=== PATIENT | female | born 1935 | race Caucasian/White ===

== ENCOUNTER 2016-09-07 11:42 | Inpatient (IN) | payer MEDICARE ==
[~2016-09-07] VITALS: Ht 160 cm; Wt 36.8 kg
[2016-09-07] VITALS (12 sets, daily range): BP systolic 89–133; BP diastolic 50–67; PULSE 85–111; RESP 16–20; O2SAT 97–100
[~2016-09-07 11:42] MED LIST: NORE1TAB92 PO; PANT40TA3 PO; THYR90TA PO
--- NOTE | 2016-09-07 12:00 | ED.REPORT ---
HPI-GI Bleed Date of Service Sep 07, 2016 ED Provider: Humberto Ledbetter MD An 80 year old female with a history of ulcerated gastroesophageal junction, gastric and duodenal hereditary hemorrhagic telangiectasia, and hypothyroidism presents to the ED due to hematemesis. The pt had a two unit blood transfusion yesterday, and woke at 03:00 this morning vomiting blood. The blood in the vomit was dark with clots, and the vomiting was accompanied by abdominal pain. The pt has also been unable to eat recently, though food still tastes good and she has an appetite. She denies hematochezia. The pt was admitted one month ago for a GI bleed. She receives iron every two weeks, and her last blood transfusion was during her admission one month ago. Nursing Notes Stated Complaint: SOB Chief Complaint: Respiratory Distress Nursing Notes Reviewed: Yes Allergies: Coded Allergies: No Known Allergies (Verified , 07/23/16) Scheduled Norethindrone/Eth Estradiol (Zenchent) 1 Each Tablet 1 TABLET PO DAILY Pantoprazole DR (Pantoprazole DR) 40 Mg Tablet.dr 40 MG PO DAILY Thyroid,Pork ([place] Thyroid) 90 Mg Tablet 90 MG PO DAILY General Time Seen by Provider: 11:57 Chief Complaint Chief Complaint: Vomiting blood Hx Obtained From: Patient Arrived By: Walk-in Onset Occurred: 5 - 8 hours ago Recent Healthcare: Recent doctor visit, Recent hospitalization Similar Sx Previous: Yes Past Medical History Past Medical History Notes: GI: Dr. Sam Past Medical History 1. Ulcerated gastroesophageal junction. 2. Irregular gastroesophageal junction. 3. Gastric and duodenal hereditary hemorrhagic telangiectasia. 4. hypothyroidism 5. malnutrition 6. 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 and resulting in constipation Past Surgical History One lobe thyroidectomy Smoking History Never Smoker Social History Other Social History: Good social support, From out of town Ambulatory Status Independent Review of Systems Review of Systems Note: inability to eat Constitutional: Denies: Chills, Fever Respiratory: Denies: Non-productive cough, Shortness of breath Cardiovascular: Denies: Chest pain GI: Reports: Abdominal pain, Hematemesis, Vomiting, Denies: Hematochezia Skin: Denies Rash Complete sys rev & neg: except as marked. Physical Exam Initial Vital Signs Vital Signs (First) Date Time Temp Pulse Resp B/P Pulse Ox O2 Delivery O2 Flow Rate FiO2 09/07/16 11:45 36.7 111 20 89/55 98 Room Air Initial VS: Reviewed General/Constitutional: Awake, Alert Respiratory / Chest: Atraumatic, Breath sounds NL, Breath sounds = bilat, No respiratory distress Cardiovascular: Heart rate NL, Regular rhythm, Heart sounds NL, No murmurs Abdomen: Atraumatic, Soft, No guarding, No rebound moderate diffuse tenderness Guaiac positive small amount of bright red blood Head / Eyes: Atraumatic, Normocephalic, PERRL, EOMI ENT: Atraumatic, Airway patent, Mucous membranes moist Skin Skin: Atraumatic, Color NL, No rash, Warm, Dry Neurologic: Oriented X3, Speech NL, No motor deficits, No sensory deficits Neck: Atraumatic, Supple, Full range of motion Back: Atraumatic, Full range of motion Upper Extremity / MS: Atraumatic, Full range of motion Lower Extremity / Pelvis / MS: Atraumatic, Full range of motion Psychiatric: Affect NL, Mood NL Interpretation & Diagnostics Lab Results Interpretation Result Diagram: 09/07/16 1155 09/07/16 1155 Test 09/07/16 11:55 White Blood Count 11.0th/mm3 (3.8-10.1) Red Blood Count 2.43mil/mm3 (3.90-5.20) Hemoglobin 7.4g/dL (12.0-15.6) Hematocrit 23.8% (35.0-46.0) Mean Corpuscular Volume 97.9fL (81-100) Mean Corpuscular Hemoglobin 30.5pg (27.0-35.0) Mean Corpuscular Hemoglobin Concent 31.1% (32.0-37.0) Red Cell Distribution Width 17.1% (12.3-15.4) Platelet Count 538bil/L (150-400) Neutrophils (%) (Auto) 78.9% (40-74) Lymphocytes (%) (Auto) 10.1% (14-46) Monocytes (%) (Auto) 9.1% (4-12) Eosinophils (%) (Auto) 1.4% (0-5) Basophils (%) (Auto) 0.3% (0-3) Prothrombin Time 10.8sec (8.1-12.5) Prothromb Time International Ratio 1.01ratio Sodium Level 141mEq/L (134-144) Potassium Level 4.3mEq/L (3.5-5.2) Chloride Level 105mEq/L (97-108) Carbon Dioxide Level 25mmol/L (18-29) Blood Urea Nitrogen 26mg/dL (8-27) Creatinine 0.40mg/dL (0.57-1.00) Estimat Glomerular Filtration Rate 219mL/min (>59) Glucose Level 128mg/dL (60-99) Calcium Level 9.0mg/dL (8.5-10.1) Total Bilirubin 0.7mg/dL (0.0-1.2) Aspartate Amino Transf (AST/SGOT) 56U/L (0-50) Alanine Aminotransferase (ALT/SGPT) 39U/L (0-32) Alkaline Phosphatase 251U/L (25-165) Total Protein 5.7g/dL (6.4-8.4) Albumin 3.0g/dL (3.4-5.0) Hold [place] Top Tube Received (Received) ECG Interpretation ECG Interpretation: normal sinus rhythm with a rate of [address] elevation T wave inversion in V1 and AVR no change from previous dated 07/23/2016 Time: 12:17 Interpreted by: ED physician X-Ray Chest Interpretation Chest Xray Interpretation: IMPRESSION: No acute cardiopulmonary disease. Dictated by: Blaze Zurita M.D. on 09/07/2016 at 12:38 Approved by: Blaze Zurita M.D. on 09/07/2016 at 12:38 Interpretation / Wet Read by: Interpret - Radiologist Re-Eval/Medical Decision Med Decision/Clinical Course 80-year-old female history of hereditary hemorrhagic telangiectasia chronic GI bleeds presenting with hematemesis overnight. She reports she was transfused yesterday with a hemoglobin of 6.4. She was admitted recently for similar. She is guaiac positive with grossly bloody stools. MAPs mid-60s. Hemoglobin is 7.4. Discussed with GI doctor Dr Zhang who requested admission with Protonix drip for a scope tomorrow. Ordered 2 units PRBCs to be transfused. Admitted to telemetry. Full code. Source of Hx: Old records Re-Evaluation/Progress : Time of Eval: 11:57 Patient Status: Condition unchanged Re-Evaluation/Progress Note: Pt informed of the need for admission during the initial interview. The pt understands and agrees with the plan. All questions are addressed at this time. Consultation #1: Referral / Consult Name: Bj Zhang MD Call Returned at: 12:53 Continuous Miner Operator Helper: Agrees with eval, Agrees with plan Note: Consulted with Dr. Zhang, GI, regarding pt's case. Dr. Zhang agrees with the evaluation and plan. Consultation #2: Referral / Consult Name: Jan Parker DO Consulted With: Hospitalist Call Returned at: 13:22 Continuous Miner Operator Helper: Agrees with eval, Agrees with plan, Accepts admit Note: Spoke with Dr. Parker, hospitalist, regarding pt's case. Dr. Parker agrees with the evaluation and agrees to admit the pt. Counseled Regarding: Diagnosis, Lab results, Need for admission Discharge & Departure Impression: Primary Impression: Upper GI bleed Disposition: ADMITTED TO HOSPITAL Discharge Condition All VS Reviewed: Yes Condition: Stable Referrals: Macy Baird MD (PCP) Jose Sam MD Attestation Portions of this note were transcribed by Kanchan Zapata. I, Dr. Ledbetter personally performed the history, physical exam and medical decision-making; I reviewed and confirmed the accuracy of the information in the transcribed note. Signed by: Kush Cruz, 09/07/2016, 13:35 copies to: Macy Baird MD; Jose Sam MD, Ben M MD Sep 07, 2016 12:00 KANCHAN ZAPATA Sep 07, 2016 12:48
[2016-09-07] MEDS ORDERED: 0.9% Sodium Chloride 1,000 ML IV ONE (12:10)
[2016-09-07] MEDS ORDERED: Pantoprazole 4 mg/mL 10 mL Inj IVPUSH ONE (12:10)
[2016-09-07 12:31] LABS: Mean Corpuscular Volume 97.9 fL (81-100)
[2016-09-07 12:32] LABS: BASOPHILS % (AUTO) 0.3 % (0-3); EOSINOPHILS % (AUTO) 1.4 % (0-5); MONOCYTES % (AUTO) 9.1 % (4-12); Mean Corpuscular Hemoglobin 30.5 pg (27.0-35.0); NEUTROPHILS % (AUTO) 78.9 % (40-74); Platelet Count 538 bil/L (150-400)
[2016-09-07 12:36] LABS: INR 1.01 ratio
--- NOTE | 2016-09-07 12:40 | DRSVH ---
PROCEDURE: X-RAY CHEST ONE VIEW, PORTABLE ([id number]) INDICATIONS: 80 year-old female with anemia and gastrointestinal bleeding. TECHNIQUE: One view of the chest was acquired. COMPARISON: [facility], CR, CHEST 2VW, 02/10/2007, 11:18. FINDINGS: Surgical changes and devices: Right thoracic outlet surgical clips are again noted. Lungs and pleura: No pleural effusions or pneumothorax. Lungs are clear. Mediastinum: Mediastinal contours appear normal. Heart size is normal. There is aortic atheroscler osis. Bones and chest wall: No suspicious bony lesions. Overlying soft tissues appear unremarkable. IMPRESSION: No acute cardiopulmonary disease. Dictated by: Blaze Zurita M.D. on 09/07/2016 at 12:38 Approved by: Blaze Zurita M.D. on 09/07/2016 at 12:38
[2016-09-07] MEDS ORDERED: EPINEPHrine 0.1 mg/mL 10 mL Syringe ONE (13:07)
[2016-09-07] MEDS ORDERED: Pantoprazole Inj 80 MG, Pharmacy To Mix 1 EA in 0.9% Sodium Chloride 80 ML IV ONE ×2 (13:10)
[2016-09-07] MEDS ORDERED: Alum-Mag Hydrox-Simeth 30 mL Suspension PO PRN ×2 (13:25→14:50)
[2016-09-07] MEDS ORDERED: Ondansetron 2 mg/mL 2 mL Inj IVPUSH PRN ×2 (13:25→14:50)
[2016-09-07 14:28] LABS: APPEARANCE,URINE HAZY (CLEAR,HAZY); COLOR,URINE YELLOW (YELLOW); PH,URINE 6.5 (5.0-8.0)
[2016-09-07 14:29] LABS: OCCULT BLOOD,URINE NEGATIVE (NEGATIVE); UROBILINOGEN,URINE NORMAL (NORMAL)
[2016-09-07] MEDS ORDERED: Polyethylene Glycol (PEG) 17 Gm Powder PO PRN (14:50)
[2016-09-07] MEDS: 0.9% Sodium Chloride 1,000 ML IV SCH (15:28)
[2016-09-07] MEDS ORDERED: 0.9% Sodium Chloride 100 ML ONE (16:12)
--- NOTE | 2016-09-07 16:40 | PCM.HPMED ---
Subjective Date of Service Sep 07, 2016 Primary Provider: Admitting Physician: Jan Parker DO Primary Care Physician: Macy Baird MD Attending Physician: Jan Parker DO Chief Complaint: Hematemesis History of Present Illness: This is a very pleasant 80 year old female with a history of gastric and duodenal hereditary hemorrhagic telangiectasias with related anemia and hypothyroidism who presented to [facility] on 09/07/16 after an episode of significant hematemesis. Patient had a two unit blood transfusion yesterday when her hemoglobin was 6.4 This morning she woke at 03:00 and had one episode of vomiting blood. The blood in the vomit was dark with clots, and the vomiting was accompanied by abdominal pain. The patient has also been unable to eat recently, though food still tastes good and she has an appetite. She states she has been loosing about 5 pounds a month since May. She denies hematochezia, weakness, dizziness, syncope. The patient was admitted one month ago for a GI bleed. Patient states that her family history is non-contributory as she was adopted when she was 10 month old. Her 62 year old son and her grand daughter have inherited hereditary hemorrhagic telangiectasia as well. Review of Systems: A comprehensive review of systems was conducted with the patient and found to be negative except as above in the history of present illness. Allergies Coded Allergies: No Known Allergies (Verified , 07/23/16) Home Medications Pantoprazole 40 mg qd Amour Thyroid 90 mg qd PMH 1. Ulcerated gastroesophageal junction. 2. Irregular gastroesophageal junction. 3. Gastric and duodenal hereditary hemorrhagic telangiectasia. 4. Hypothyroidism 5. Malnutrition 6. 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 Hx Alcohol Use: Yes (socially with wine or burbon and water, not for several months) Hx Substance Use: No Hx Tobacco Use: No Smoking Status: Never Smoker Living Arrangement: with Family Exam Vital Signs Vital Sign - Last Date Time Temp Pulse Resp B/P Pulse Ox O2 Delivery O2 Flow Rate FiO2 09/07/16 15:01 36.6 101 18 126/56 99 Room Air 09/07/16 13:43 2 Exam General: very thin, alert and oriented x3, no acute distress HEENT: atraumatic, normocephalic,PERRL, EOMI, sclera anicteric, pale conjunctivae NECK: No cervical lymphadenopathy, neck supple, nontender HEART: Regular rate and rhythm, no murmur appreciated LUNGS: clear to auscultation bilaterally with adequate respiratory effort ABD: no tenderness, mildly-distended, normoactive bowel tones EXTR: Radial pulses and pedal pulses normal b/l, no cyanosis, clubbing or edema NEURO: Cranial nerves appear to be fully intact, normal speech, patient can move upper and lower limbs grossly Lab and Diagnostics Result Diagram: 09/07/16 1155 09/07/16 1155 X-Rays, CTs and MRIs Chest Xray Interpretation: IMPRESSION: No acute cardiopulmonary disease. Dictated by: Blaze Zurita M.D. on 09/07/2016 at 12:38 Approved by: Blaze Zurita M.D. on 09/07/2016 at 12:38 12-lead ECG ECG Interpretation: normal sinus rhythm with a rate of [address] elevation T wave inversion in V1 and AVR no change from previous dated 07/23/2016 Time: 12:17 Interpreted by: ED physician Assessment & Plan This is a very pleasant 80 year old female with a history of gastric and duodenal hereditary hemorrhagic telangiectasias with related anemia, hypothyroidism and malnutrition who presented to [facility] on 09/07/16 after an episode of hematemesis overnight. She has been admitted for management of anemia and endoscopic evaluation of her upper GI tract by Dr. Zhang. 1. Upper GI bleed with significant hematemesis, acute, present on admission. - Patient reports she has been transfused yesterday with a hemoglobin of 6.4 - Hospitalized last month for the same problem - Hemoglobin 7.4 - Protonix drip. - Dr. Zhang was called by the ED and is aware of the patient's admission. - NPO in preparation for EGD tomorrow AM. - Blood transfusion 2 units PRBC's - Telemetry 2. Acute on chronic iron deficiency anemia, present on admission. - Secondary to hemorrhagic telangiectasias and subsequent hematemesis. - Blood transfusion 2 units PRBC's. Re-evaluate H&H after complete. 3. Hypotension, acute, present on admission - BP 89/55 in ED - IVF NS 100 mls/hr - Monitor BP 4. BMI 15, protein malnutrition, chronic. - Patient states she has been loosing 5 pounds a month since May dur to stomach problems - Hotel Desk Clerk consult - When patient no longer NPO recommend the use of protein shakes to supplement diet. 5. Hypothyroidism, chronic, presume stable. - Will plan to continue [place] Thyroid 90 mg when patient can tolerate oral intake. Patient admitted under inpatient status with expected length of stay greater than 2 midnights for severity of present symptoms, complexities of treatment plan and risk for adverse events. GI Prophylaxis: Proton Pump Inhibitor VTE Prophylaxis Indicated: Contraindicated (GI bleed) VTE Prophylaxis: SCDs Resuscitation Status: CPR: Attempt Resuscitation Time spent 60 minutes Attending Statement I reviewed this patients chart, discussed the plan of care with the resident and examined the patient. I agree with the above physical exam and assessment and plan. copies to: Macy Baird MD, OKSANA S DO Sep 07, 2016 16:40 Jan Parker DO Sep 08, 2016 17:10
--- NOTE | 2016-09-07 17:38 | NUR ---
ADMIT Pt admitted into room 3002 from ER following report from Antonia Son RN. Pt arrived on a stretcher, able to amb SBA to bed, denied any dizziness with change in position. Pt A&Ox4, pleasant, cooperative with all cares. Pt introduced to staff, bed controls and call light. Dtr at bedside. Pt on RA, denies SOB, 02 sats 100%. Orders rec'd for pt to be NPO and transfuse 2 units PBRC's. Pt T&C in ER. Pt c/o vague nausea, some retching but no emesis. Bed in lowest, locked position and call light in reach.
[2016-09-08] VITALS (14 sets, daily range): BP systolic 112–147; BP diastolic 44–65; PULSE 75–97; RESP 14–20; O2SAT 96–99
[2016-09-08] MEDS: 0.9% Sodium Chloride 1,000 ML IV SCH ×3 (00:29→19:57)
[2016-09-08] MEDS ORDERED: Ondansetron 2 mg/mL 2 mL Inj ONE (07:12)
[2016-09-08] MEDS ORDERED: Propofol 10,000 mCg/mL 20 mL Inj ONE (07:12)
[2016-09-08] MEDS ORDERED: fentaNYL-PF 50 mCg/mL 2 mL Inj ONE (07:18)
[2016-09-08] MEDS: Pantoprazole 8 mg/Hr Infusion IV SCH ×2 (10:10)
--- NOTE | 2016-09-08 10:49 | PCM.HPANE ---
Patient Data Surgeon Admitting Provider:Jan Parker DO Attending Provider:Jan Parker DO Primary Care Physician:Macy Baird MD Other Provider: Reason for Visit Gi Bleed Ht/WT & BMI Height (Feet): 5 Height (Inches): 3.00 Weight (Kilograms): 36.800 Body Mass Index 14.38 Allergies Coded Allergies: No Known Allergies (Verified , 07/23/16) Past Anesthesia History Anesthesia History: Denies:: Abnormal Airway, Anesthesia Reactions, Difficult Intubation, Fam Anesthesia Reaction, Fam Malignant Hypertherm, Malignant Hyperthermia Diabetes History Hx Diabetes?: No Current Bedside Blood Glucose: 191 MRSA MRSA: No Medications Active Scripts Thyroid,Pork ([place] Thyroid)90 Mg Sspetx61 Mg PO DAILY #30 TABLET Ref 0 Prov:GOLD TYSON DO 07/23/[address]ations Pant[address] DR 40 Mg Tablet.dr20 Mg PO DAILY Ref 0 07/22/16 Norethindrone/Eth Estradiol (Zenchent)1 Each Tablet1 Tablet PO DAILY #1 PACK 06/21/16 History History of ENT Problems?: Yes HEENT History: Positive for:: Cataracts Denies:: Abnormal Airway Difficult Intubation Dysphagia Glaucoma Hearing Problem Sinus Problem Hx of Heart Problems?: No Cardiovascular History: Denies:: AICD Atrial Fibrillation Cardiac Surgery Chest Pain Congestive Heart Failure Edema Heart Murmur Hypertension Irregular Heartbeat Pacemaker Thrombophlebitis Valvular Heart Disease Hx of Respiratory Problem?: No Respiratory History: Positive for:: Pneumonia (age 13) Denies:: Asthma COPD Chest Surgery Cough Dyspnea Emphysema Hemoptysis Tuberculosis Hx Neurologic Problems?: No Neurological History: Denies:: CVA Dementia Hx of GI Problems?: Yes Gastrointestinal History: Positive for:: Gastrointestinal Bleeding (multiple GI bleeds in the past) Denies:: Cirrhosis Diverticulitis Gastroesphageal Reflux Heartburn Hepatitis Hiatal Hernia Rectal Bleeding Hx of Problems?: No Genitourinary History: Positive for:: Urinary Tract Infection (years ago) Denies:: HX of Hemodialysis Kidney Stones HX of Peritoneal Dialysis: No Female Hx: Denies:: Currently Endometriosis Pelvic Inflammatory Problems with Breasts? Hx Musculoskeletal Problems?: No Musculoskeletal History: Denies:: Joint Replacement Musculoskeletal Trauma Hx of Psycho/Social Problems?: No Psycho Social History: Denies:: Anxiety Bipolar Disorder Hx Depression Suicide Attempt Hx Surgeries?: No (thyroidectomy) Hx Any Other Health Problems?: Yes Other History: Positive for:: Hospitalization Thyroid Disease (thyroidectomy) Denies:: Cancer History Blood Transfusions: Positive for:: Accept Blood Products? 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 Category 1B: Patient has history of documented sleep apnea, and HAS received any narcotic , sedative or anesthesia administration during this stay Category 2: Patient has SUSPECTED Obstructive Sleep Apnea, and HAS received any narcotic , sedative or anesthesia administration during this stay. Category 3: Patient has SUSPECTED Obstructive Sleep Apnea and HAS NOT received narcotic, sedative or anesthesia administration during this stay. Category 4: Outpatient in Procedural Areas with known sleep apnea or who screen positive for High Risk via the STOP/BANG questionnaire. Exam Exam Vital Signs Vital Signs Date Time Temp Pulse Resp B/P Pulse Ox O2 Delivery O2 Flow Rate FiO2 09/08/16 09:15 36.9 94 20 120/44 97 Room Air 09/08/16 08:00 92 09/08/16 05:20 97 09/08/16 05:12 36.9 91 18 119/63 98 Room Air General Appearance: Alert, Oriented X3, Cooperative HEENT/AIRWAY: MP 2 Lungs: Normal Air Movement Heart: Exam Unremarkable Meds/Labs/Diagnostics Admission Meds Current Medications Pantoprazole 80 mg 80 mg STAT ONCE IVPUSH Last administered on 09/07/16at 12: 28; Start 09/07/16 at 12:10; Stop 09/07/16 at 12:12; Status DC Sodium Chloride 1,000 ml @ 0 mls/hr Q0M ONCE IV Last administered on at 12:28; Start 09/07/16 at 12:10; Stop 09/07/16 at 12:12; Status DC Pantoprazole 80 mg/Miscellaneous 1 ea/Sodium Chloride 100 ml @ 10 mls/hr ONCE ONCE IV Last administered on 09/07/16at 13:42; Start 09/07/16 at 13:10; Stop 09/07/16 at 23:09; Status DC Sodium Chloride 1,000 ml @ 100 mls/hr Q10H IV Last administered on 09/08/16 06 :46; Start 09/07/16 at 14:46 Pantoprazole/ Sodium Chloride (Protonix Inj/ Normal Saline) 100 ml @ 10 mls/hr Q10H IV Last administered on 09/08/16 10:10; Start 09/08/16 at 08:45 Bedside Blood Glucose: 191 Labs Test 09/07/16 11:55 09/07/16 13:35 09/08/16 05:50 White Blood Count 11.0th/mm3 (3.8-10.1) Red Blood Count 2.43mil/mm3 (3.90-5.20) Mean Corpuscular Volume 97.9fL (81-100) Mean Corpuscular Hemoglobin 30.5pg (27.0-35.0) Mean Corpuscular Hemoglobin Concent 31.1% (32.0-37.0) Red Cell Distribution Width 17.1% (12.3-15.4) Platelet Count 538bil/L (150-400) Neutrophils (%) (Auto) 78.9% (40-74) Lymphocytes (%) (Auto) 10.1% (14-46) Monocytes (%) (Auto) 9.1% (4-12) Eosinophils (%) (Auto) 1.4% (0-5) Basophils (%) (Auto) 0.3% (0-3) Prothrombin Time 10.8sec (8.1-12.5) Prothromb Time International Ratio 1.01ratio Sodium Level 141mEq/L (134-144) Potassium Level 4.3mEq/L (3.5-5.2) Chloride Level 105mEq/L (97-108) Carbon Dioxide Level 25mmol/L (18-29) Blood Urea Nitrogen 26mg/dL (8-27) Creatinine 0.40mg/dL (0.57-1.00) Estimat Glomerular Filtration Rate 219mL/min (>59) Glucose Level 128mg/dL (60-99) Calcium Level 9.0mg/dL (8.5-10.1) Total Bilirubin 0.7mg/dL (0.0-1.2) Aspartate Amino Transf (AST/SGOT) 56U/L (0-50) Alanine Aminotransferase (ALT/SGPT) 39U/L (0-32) Alkaline Phosphatase 251U/L (25-165) Total Protein 5.7g/dL (6.4-8.4) Albumin 3.0g/dL (3.4-5.0) Hold [place] Top Tube Received (Received) Urine Color Yellow (YELLOW) Urine Appearance Hazy (CLEAR,HAZY) Urine pH 6.5 (5.0-8.0) Urine Specific [place] 1.015 (1.003-1.035) Urine Protein Negativemg/dL (NEG,TRACE) Urine Glucose (UA) Negativemg/dL (NEGATIVE) Urine Ketones Negativemg/dL (NEGATIVE) Urine Occult Blood Negative (NEGATIVE) Urine Nitrite Negative (NEGATIVE) Urine Bilirubin Negative (NEGATIVE) Urine Urobilinogen Normalmg/dL (NORMAL) Urine Leukocyte Esterase Trace (NEGATIVE) Urine RBC 0-2/hpf (0-2) Urine WBC 0-5/hpf (0-5) Urine Epithelial Cells Occasional/hpf (NONE-MOD) Urine Crystals None seen (NONE SEEN) Urine Bacteria Few/hpf (NONE-FEW) Urine Hyaline Casts None/lpf (NONE) Urine Granular Casts None seen (NONE SEEN) Urine Waxy Casts None seen (NONE SEEN) Urine Red Blood Cell Casts None seen (NONE SEEN) Urine White Blood Cell Casts None seen (NONE SEEN) Urine Mucus None seen (None Seen) Urine Trichomonas None seen (NONE SEEN) Urine Yeast None (NONE SEEN) Urinalysis Comment None Urine Culture Reflexed Indicated Hemoglobin 9.3g/dL (12.0-15.6) Hematocrit 28.8% (35.0-46.0) Plan Impression Patient chart reviewed, patient interviewed and anesthestic plan with risks, benefits, and alternatives discussed, and informed consent obtained. NPO Status: > 8 hrs ASA Physical Status: ASA2 Mod Systemic Disease Anesthetic Plan: GA Bene/Risks/Altern/Consents: Yes HP Complete Prior to Induction: Yes Theo Agosto MD Sep 08, 2016 10:49
[2016-09-08] MEDS ORDERED: Lactated Ringer's 1,000 ML IV ONE (11:12)
--- NOTE | 2016-09-08 11:48 | PCM.ANEP2 ---
Post Anesthesia Evaluation ASA/CMS Post Anesthesia VS in Patient's Normal Range?: Yes Resp Stable; Airway Patent?: Yes CV Function & Hydration Stable: Yes Mental Status Recovered?: Yes Pain control Satisfactory?: Yes N/V Control Satisfactory?: Yes Theo Agosto MD Sep 08, 2016 11:48
--- NOTE | 2016-09-08 11:48 | PCM.ANEP1 ---
Post Anesthesia Phase 1 PACU Phase 1 Assessment Vital Signs Vital Signs Date Time Temp Pulse Resp B/P Pulse Ox O2 Delivery O2 Flow Rate FiO2 09/08/16 11:44 97 20 133/50 97 Nasal Cannula 2 09/08/16 11:17 79 14 114/56 99 Room Air 09/08/16 09:15 36.9 94 20 120/44 97 Room Air 09/08/16 08:00 92 09/08/16 05:20 97 09/08/16 05:12 36.9 91 18 119/63 98 Room Air Anesthetic Administered: GA Level of Alertness: Awake, talking HERNANDEZ's with Equal Strength: Yes Pain: No Pain Scale Score: 4 Nausea or Vomiting: No Oxygen Delivery: Room Air Lungs: Normal Air Movement Dermatome Level: Full Sensation Theo Agosto MD Sep 08, 2016 11:48
--- NOTE | 2016-09-08 13:55 | PCM.PNMED ---
Subjective Date of Service Sep 08, 2016 Subjective Back from endoscopy, not feeling very well. Feels out of it. No significant pain issues, no nausea vomiting, hematemesis or abdominal pain. Exam Vital Signs Vital Sign - Last Date Time Temp Pulse Resp B/P Pulse Ox O2 Delivery O2 Flow Rate FiO2 09/08/16 11:56 96 14 112/60 96 Room Air 09/08/16 11:44 2 09/08/16 09:15 36.9 Intake and Output 09/07/16 09/07/16 09/08/16 Cumulative From/Thru 15:00 23:00 07:00 09/07/16 11:45 - 09/08/16 05:53 Intake Total 1103 ml 1539 ml 2642 ml Balance 1103 ml 1539 ml 2642 ml Intake Oral 0 ml 0 ml 0 ml IV Total 503 ml 1539 ml 2042 ml Packed Cells 600 ml 600 ml # Voids 1 2 3 # Bowel Movements 0 0 Exam General: Alert, Oriented X3, NAD, cachectic appearing Head: Normocephalic, atraumatic Eyes: SHIRA, EOMI, no scleral Icterus Chest: clear to auscultation B/L, no wheezing rales or rhonchi Heart: Regular rate and rhythm. Normal S1, S2, no murmurs noted Abdomen: soft, non-tender. Bowel sounds are normoactive. No guarding or rebound. Extremities: no cyanosis, clubbing or edema. IVs and Medications Medications Reviewed: Medications were reviewed in detail Lab and Diagnostics Result Diagram: 09/08/16 0550 09/07/16 1155 X-Rays, CTs and MRIs Chest Xray Interpretation: IMPRESSION: No acute cardiopulmonary disease. Dictated by: Blaze Zurita M.D. on 09/07/2016 at 12:38 Approved by: Blaze Zurita M.D. 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 She has been admitted for management of anemia and endoscopic evaluation of her upper GI tract by Dr. Zhang. 1. Upper GI bleed with significant hematemesis, acute, present on admission. - She has had 2 units of blood, hemoglobin today 9.3 up from 7.4 - Hospitalized last month for the same problem - Protonix drip. - EGD results pending - Telemetry 2. Acute on chronic iron deficiency anemia, present on admission. - Secondary to hemorrhagic telangiectasias and subsequent hematemesis. - She has had transfusion 2 units PRBC's. 3. Hypotension, acute, present on admission - Blood pressures are soft, likely chronic - IVF NS 100 mls/hr - Monitor BP 4. BMI 15, protein malnutrition, chronic. - Patient states she has been loosing 5 pounds a month since May due to stomach problems - Coal Screener consult - When patient no longer NPO recommend the use of protein shakes to supplement diet. 5. Hypothyroidism, chronic, presume stable. - continue [place] Thyroid 90 mg when patient can tolerate oral intake. CODE STATUS: Full code DVT prophylaxis: Contraindicated in current GI bleeding Disposition: Likely home pending hospital course. GI Prophylaxis: Proton Pump Inhibitor VTE Prophylaxis: SCDs Resuscitation Status: CPR: Attempt Resuscitation Jan Parker DO Sep 08, 2016 13:55
--- NOTE | 2016-09-08 15:30 | CONS ---
[address] [address] CONSULTATION REPORT PATIENT: STEWART UREÑA : 1935 MR#: [id number] ADMIT: 09/07/2016 JOB ID: [id number] DATE OF SERVICE: 09/08/2016 GASTROENTEROLOGY PROCEDURE CONSULTATION: REASON FOR CONSULTATION: Hematemesis. HISTORY OF PRESENT ILLNESS: An 80-year-old female with history of hereditary hemorrhagic telangiectasias in the stomach and the duodenum causing her anemia, history of hypothyroidism, history of ulcer at the gastroesophageal junction, history of malnutrition and fibroid mass, and a one-lobe thyroidectomy in the past, who presents for consultation for hematemesis x1 day. The patient states that she vomited approximately a cup of bright red blood for one day. The patient states that in the past she was admitted twice in July for hematemesis in which she underwent an upper endoscopy performed by Dr. Jose Sam which was performed on July 24, 2016, which showed multiple diffuse telangiectasias within the stomach in which one of them had to be Endoclipped because of bleeding status post APC and irregular gastroesophageal junction. The patient states that she had a colonoscopy that was performed four years ago which showed 2 benign polyps removed. I have no records of this. Her family history is unknown due to the fact that she is adopted, per the patient. The patient denies rectal bleeding, abdominal pain, change in bowel habits, or unintentional weight loss. PAST MEDICAL HISTORY: As stated above. PAST SURGICAL HISTORY: As stated above. MEDICATIONS: 1. Protonix 40 once a day. 2. [place] Thyroid. ALLERGIES: No known drug allergies. 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 She does drink alcohol socially, not for several months now. No IV drug use. Never smoked. FAMILY HISTORY: Unknown. REVIEW OF SYSTEMS: The patient denies headache, blurred vision, nausea, vomiting. Positive for hematemesis. No chest pain, shortness of breath, palpations, or skin rash. PHYSICAL EXAMINATION: Vital signs: On presentation temperature 36.9, pulse of 94, respiratory rate 20, blood pressure 120/44, satting 97% on room air. General: In no acute distress. Head: No scars. Anicteric. Throat: Supple. Lungs: Clear to auscultation bilaterally. Cardiovascular: Regular rhythm and rate. Abdomen: Soft, nondistended, nontender. Normoactive bowel sounds. Extremities: No clubbing, cyanosis, or edema. LABORATORIES: Show a white count of 11, hemoglobin 9.3, hematocrit 28, platelet count 538. Sodium 141, potassium 4.3, chloride 101, bicarb 25, BUN 26, creatinine 0.4, glucose 128, calcium 9.0. Total bili 0.7, AST 56, ALT 39, alk phos 251. Total protein 5.7, albumin 3.0. PT 10.8, INR 1.0. ASSESSMENT AND PLAN: This is an 80-year-old female with a history of hereditary hemorrhagic telangiectasias within the stomach and small intestine, who previously had an Endoclip and APC done in July 2016, history of uterine fibroid, malnutrition, hypothyroidism, ulcer in the gastroesophageal junction. Presents here with hematemesis x1 day. Differential diagnosis includes arteriovenous malformations, which is most likely given her history, versus peptic ulcer disease, versus esophagitis, versus gastritis, versus duodenitis. The patient states that she has 15 upper endoscopies in the past for APC within her stomach. 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 RECOMMENDATIONS: 1. NPO except for medications. 2. EGD with APC today if we see AVMs in the stomach. 3. Continue Protonix drip. 4. In the future, if the patient does have further episodes of upper GI bleed, then I would recommend the patient to be evaluated at an academic tertiary center, such as the [facility], for cryotherapy given the fact that she is refractory to APC in which she has perez 16 EGD in past for APC with recurrent AVM bleeding. MTDD
--- NOTE | 2016-09-08 15:56 | NUR ---
Social Work-initial assessment /readiness for discharge: Data:See initial assessment. Pt is a 80 y/o female who was admitted on 09/07/16 for GI Bleed per H&P. Pt's insurance is [facility] and PCP is Macy Baird MD. EMR reviewed. Pt's readmission score is 1. SW met with pt and daughter Lina [phone] at bedside to discuss discharge planning, SW role explained. Pt is alert and oriented x3. Pt resides at home with her in [place] where she remains independent with ADls. Pt does not use any DME and drives. Pt has no HH or SNF history. Pt has no detention care or VA benefits. SW discussed DPOA/ advanced directive, pt states she has completed this, SW encouraged them to bring in a copy to the hospital. Per RN notes, pt has been up independent in her room. Pt and daughter do not anticipate any discharge needs. Pt's daughter to provide transport home at discharge. SW provided phone number and plan on white board in room. No anticipated discharge needs. SW will continue to follow if needs arise. Assessment:Pt who is independent at baseline. Plan:Pt to discharge home when medically stable via POV. No anticipated discharge needs. SW will continue to follow if needs arise. SOHAN Gayle Addendum: 09/08/16 at 1559 by GLORIA JACKSON Amended: Links added.
--- NOTE | 2016-09-08 16:36 | ENDO ---
[address] [address] ENDOSCOPY PROCEDURE PATIENT: STEWART UREÑA : 1935 MR#: [id number] ADMIT: 09/07/2016 JOB ID: [id number] TITLE OF OPERATION: Esophagogastroduodenoscopy with argon plasma coagulation, 0.1 cc epinephrine injection, and hemoclip placed. PREOPERATIVE DIAGNOSIS: Hematemesis. 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 COMPLICATIONS: None. BLOOD LOSS: Minimal. DESCRIPTION OF PROCEDURE: After risks and benefits explained to the patient, informed consent was obtained. After anesthesia administered, upper endoscope was then inserted into mouth, intubating to the esophagus, stomach, second portion of duodenum, and mucosa carefully examined. After the procedure was done, the scope was withdrawn and procedure terminated. FINDINGS: Upon inspection of the esophagus, esophagus was normal without masses, ulcers, or lesions. Z-line located at 40 cm from incisors. Upon entering the stomach, there was a diffuse amount of AVMs that were seen throughout the entire stomach, including the antrum, body and cardia. None were actively bleeding. Upon entering the small intestine, again there were diffuse AVMs seen in the duodenal bulb, first and second portion, nonbleeding. APC was then deployed at the AVMs in the duodenal bulb, first and second portion, and in the stomach. One AVM started to bleed during the procedure in the body of stomach during treatment which 0.1 cc epinephrine injection to cause tamponade and one hemoclip placed with good hemostasis. 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 RECOMMENDATIONS: 1. N.p.o. for the next 24 hours. 2. Continue Protonix drip. 3. Start Carafate 1 g by mouth four times a day. 4. If patient has no overt signs of bleeding and hemoglobin is stable overnight, then can transition to Protonix 40 mg by mouth twice a day in am. 5. If the patient re-bleeds, then I would recommend referral to [facility] for evaluation for cryotherapy given the diffuse extent of arteriovenous malformations seen during the upper endoscopy. The patient has had 15 prior upper endoscopies, which argon plasma coagulation was used, and given her history, is refractory to APC management. SHY
[2016-09-08] MEDS ORDERED: Sucralfate 1,000 mg Tablet PO SCH (17:00)
[2016-09-08] MEDS: Sucralfate 100 mg/mL 10 mL Suspension PO SCH ×2 (17:43→23:59)
--- NOTE | 2016-09-08 18:25 | NUR ---
Nausea/vomiting Patient having intermittent nausea with vomiting this afternoon following EGD. Patient vomited approx 150 mls of bile with approx 8 tiny flecks of clotted blood. GI notified-reporting this is to be expected due to number of varices present and due to procedure.
[2016-09-09] VITALS (7 sets, daily range): BP systolic 116–166; BP diastolic 52–74; PULSE 74–94; RESP 16–18; O2SAT 95–99
[2016-09-09 06:19] LABS: Mean Corpuscular Hemoglobin 29.6 pg (27.0-35.0)
[2016-09-09] MEDS: Pantoprazole 8 mg/Hr Infusion IV SCH ×6 (06:27→16:39)
[2016-09-09] MEDS: 0.9% Sodium Chloride 1,000 ML IV SCH ×2 (06:42→16:40)
[2016-09-09] MEDS: Sucralfate 100 mg/mL 10 mL Suspension PO SCH ×4 (09:15→22:43)
--- NOTE | 2016-09-09 10:44 | PCM.PNSURG ---
Subjective Date of Service: Sep 09, 2016 Date of Service: Sep 09, 2016 Visit Information: Subjective: hb drop from 9.8 to 8.3 this am. pt had 150cc hematemesis post egd. s/p egd 09/08/16 (see note for full details). Postop General: No Complaints Objective Vital Sign- Last 8 Hours Date Time Temp Pulse Resp B/P Pulse Ox O2 Delivery O2 Flow Rate FiO2 09/09/16 10:33 36.6 74 17 133/58 98 Room Air 09/09/16 04:32 36.7 94 18 166/74 95 Room Air Intake and Output- Last 8 Hour 09/09/16 Cumulative From/Thru 07:00 09/07/16 11:45 - 09/09/16 06:28 Intake Total 2227 ml 6274 ml Output Total 800 ml 800 ml Balance 1427 ml 5474 ml Intake Oral 0 ml 0 ml IV Total 2227 ml 5674 ml Packed Cells 600 ml Output Urine Total 700 ml 700 ml Emesis 100 ml 100 ml # Voids 3 # Bowel Movements 0 General: Oriented X3 Neck: Supple Lungs: Clear to Auscultation Heart: Exam Unremarkable Abdomen: Benign, Soft, Non-tender, Non-distended, Normoactive bowel tones Extremities: Distal Pulses Palpable Result Diagram: 09/09/1618 09/09/16 0518 Assessment & Plan Impression 80-year-old female with a 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 The patient states that she has 15 upper endoscopies in the past for APC within her stomach. 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 s/p egd 09/08/16- FINDINGS: Upon inspection of the esophagus, esophagus was normal without masses, ulcers, or lesions. Z-line located at 40 cm from incisors. Upon entering the stomach, there was a diffuse amount of AVMs that were seen throughout the entire stomach, including the antrum, body and cardia. None were actively bleeding. Upon entering the small intestine, again there were diffuse AVMs seen in the duodenal bulb, first and second portion, nonbleeding. APC was then deployed at the AVMs in the duodenal bulb, first and second portion, and in the stomach. One AVM started to bleed during the procedure in the body of stomach during treatment which 0.1 cc epinephrine injection to cause tamponade and one hemoclip placed with good hemostasis. 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 RECOMMENDATIONS: 1. N.p.o. for the next 24 hours. 2. Continue Protonix drip. 3. Start Carafate 1 g by mouth four times a day. 4. If patient has no overt signs of bleeding and hemoglobin is stable overnight, then can transition to Protonix 40 mg by mouth twice a day in am. 5. If the patient re-bleeds, then I would recommend referral to [facility] for evaluation for cryotherapy given the diffuse extent of arteriovenous malformations seen during the upper endoscopy. The patient has had 15 prior upper endoscopies, which argon plasma coagulation was used, and given her history, is refractory to APC management. 09/09/16- hb drop 9.8-> 8.3. pt had 150cc hematemesis post egd. RECOMMENDATIONS: 1. NPO except for medications. 2. Carafate 1 g by mouth four times a day 3. Continue Protonix drip. 4. Repeat stat hb/hct. 4. If the patient re-bleeds or hb continues to trend lower, then I would recommend transfer to [facility] for cryotherapy given the diffuse extent of arteriovenous malformations seen during the upper endoscopy . The patient has had 15 prior upper endoscopies, which argon plasma coagulation was used, and given her history, is refractory to APC management. will continue to follow Problems: VTE Prophylaxis: SCDs Resuscitation Status: CPR: Attempt Resuscitation Bj Zhang MD Sep 09, 2016 10:44
--- NOTE | 2016-09-09 14:10 | PCM.PNMED ---
Subjective Date of Service Sep 09, 2016 Subjective Patient was having intermittent nausea with vomiting yesterday after EGD. Patient vomited approx 150 mls of bile with approx 8 tiny flecks of clotted blood. GI notified and he said this is to be expected due to number of varices present and due to procedure. Today patient does not report any new episodes of emesis. Denies nausea, CP, SOB. She reports she slept well. Concerned about decrease in hemoglobin. Exam Vital Signs Vital Sign - Last Date Time Temp Pulse Resp B/P Pulse Ox O2 Delivery O2 Flow Rate FiO2 09/09/16 04:32 36.7 94 18 166/74 95 Room Air 09/08/16 11:44 2 Intake and Output 09/08/16 09/08/16 09/09/16 Cumulative From/Thru 15:00 23:00 07:00 09/07/16 11:45 - 09/09/16 06:28 Intake Total 300 ml 1105 ml 2227 ml 6274 ml Output Total 800 ml 800 ml Balance 300 ml 1105 ml 1427 ml 5474 ml Intake Oral 0 ml 0 ml IV Total 300 ml 1105 ml 2227 ml 5674 ml Packed Cells 600 ml Output Urine Total 700 ml 700 ml Emesis 100 ml 100 ml # Voids 3 # Bowel Movements 0 Exam General: Alert, Oriented X3, NAD, cachectic appearing Head: Normocephalic, atraumatic Eyes: SHIRA, EOMI, no scleral Icterus Chest: clear to auscultation B/L, no wheezing rales or rhonchi Heart: Regular rate and rhythm. Normal S1, S2, no murmurs noted Abdomen: soft, non-tender. Bowel sounds are normoactive. No guarding or rebound. Extremities: no cyanosis, clubbing or edema. IVs and Medications IV Fluids NS 100 mls/hr Medications Reviewed: Medications were reviewed in detail Lab and Diagnostics Result Diagram: 09/09/1651709/09/16517 Microbiology Microbiology JOY CULT URINE Final 09/09/16 Organism 1 MIXED UROGENITAL NASRIN U COLONY COUNT/QUANTITY 50,000-100,000 CFU/ml X-Rays, CTs and MRIs Chest Xray Interpretation: IMPRESSION: No acute cardiopulmonary disease. Dictated by: Blaze Zurita M.D. on 09/07/2016 at 12:38 Approved by: Blaze Zurita M.D. 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 She has been admitted for management of anemia and endoscopic evaluation of her upper GI tract by Dr. Zhang. Esophagogastroduodenoscopy was performed om with argon plasma coagulation, 0.1 cc epinephrine injection and hemoclip placement. Postoperative diagnosis is diffuse arteriovenous malformation throughout the entire stomach, duodenal bulb, first and second portion. 1. Upper GI bleed with significant hematemesis, acute, present on admission. - She has had 2 units of blood - Hemoglobin drop today to 8.3 from 9.8 - Hospitalized last month for the same problem - Protonix drip - EGD results: diffuse arteriovenous malformation throughout the entire stomach , duodenal bulb, first and second portion, s/p argon plasma coagulation, 0.1 cc epinephrine injection with hemoclip placement. - Continue NPO - Carafate 1 g PO qid - If patient rebleeds, then transfer to [facility] for evaluation for cryotherapy - Telemetry - Consider another PRBC transfusion id H&H will not improve - Monitor H&H 2. Acute blood loss anemia, present on admission. - Secondary to hemorrhagic telangiectasias and subsequent hematemesis. - She has had transfusion 2 units PRBC's. - Consider another PRBC transfusion id H&H will not improve. Hemoglobin today 8.3 - Monitor H&H 3. Hypotension, acute, present on admission, improved - Blood pressures are soft, likely chronic. BP 89/50 on admission - IVF NS 100 mls/hr - BP 166/74 today - Continue to monitor BP 4. BMI 15, protein malnutrition, chronic. - Patient states she has been loosing 5 pounds a month since May due to stomach problems - Lofter consult - When patient no longer NPO recommend the use of protein shakes to supplement diet. - Dr. Tejeda saw the patient today regarding port placement for TPN 5. Hypothyroidism, chronic, presume stable. - continue [place] Thyroid 90 mg when patient can tolerate oral intake. CODE STATUS: Full code DVT prophylaxis: Contraindicated in current GI bleeding Disposition: Likely home pending hospital course. GI Prophylaxis: Proton Pump Inhibitor VTE Prophylaxis: SCDs VTE Mechanical Devices: Intermittant Pneumatic CD Resuscitation Status: CPR: Attempt Resuscitation Attending Statement The patient was seen and examined together with Dr. Ramirez on 09/09/2016 and I agree with the history, exam and plan as outlined in the note above. LYNETTE RAMIREZ DO Sep 09, 2016 07:28 Raul Dowling MD Sep 09, 2016 20:40
--- NOTE | 2016-09-09 15:06 | NUR ---
Social Work-continued d/c planning: Data:EMR reviewed. Pt is on day 2 of hospitalization for GI Bleed per H&P. Pt is not medically stable, anticipate a couple more days. Pt to meet with surgeon to discussion options of port placement for TPN. Pt has been up independent in her room. R/O TPN needs at discharge. SW will continue to follow. Assessment:Pt who is independent at baseline. Plan:Pt to discharge home when medically stable via POV. R/O TPN needs at discharge. SW will continue to follow. SOHAN Gayle
--- NOTE | 2016-09-09 20:12 | CONS ---
[address] [address] CONSULTATION REPORT PATIENT: STEWART UREÑA : 1935 MR#: [id number] ADMIT: 09/07/2016 JOB ID: [id number] DATE OF SERVICE: 09/09/2016 CHIEF COMPLAINT: Port placement. HISTORY OF PRESENT ILLNESS: The patient is an 80-year-old female who was admitted on due to hematemesis and anemia. The patient has a known history of hereditary hemorrhagic telangiectasias with upper GI bleed, and she underwent an upper endoscopy with control of bleeding yesterday by the GI service. There was a question of whether she needed a port or a feeding tube. On speaking with the patient, she reports weight loss and needs help with nutrition support. After the upper endoscopy yesterday, the patient was informed of a possible cryotherapy at [facility] and that is what she would like to pursue or find out more about the procedure. PAST MEDICAL HISTORY: Hereditary hemorrhagic telangiectasia, hypothyroidism, malnutrition, uterine fibroids, partial thyroidectomy. MEDICATIONS AT HOME: 1. Pantoprazole. 2. [place] thyroid. 3. Estrogen. ALLERGIES: None. SOCIAL HISTORY: The patient is and they have two children. She lives around the [facility]. 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 FAMILY HISTORY: Noncontributory to the current clinical situation. REVIEW OF SYSTEMS: Positive for the recent hematemesis, status post upper endoscopy. Positive for weight loss and malnutrition. All other systems reviewed were negative. PHYSICAL EXAMINATION: The patient is a thin female in no acute distress. Her BMI is 14.4, temperature is 36.7, blood pressure 166/74, pulse is 94, respirations 18. Head is normocephalic, atraumatic. There is no scleral icterus. Neck is supple. Heart is regular rate. Lungs are clear. Abdomen is nondistended. It is soft and nontender. Extremities show no clubbing and no cyanosis. Neurologically, the patient is awake and alert and conversant. LABORATORY EXAMINATION: This morning shows a white blood count of 8.5, hematocrit 26.6, and platelet count is 439. Sodium is 138, potassium 3.8, creatinine 0.30. Her INR was 1.01. ASSESSMENT: This is an 80-year-old female with hereditary hemorrhagic telangiectasias status post upper endoscopy with control of upper gastrointestinal bleed yesterday by the GI service. I have discussed with the patient that the best way to regain weight and nutrition support would be through the GI tract rather than through the IV route. She would like to hold off on consideration for either port placement or feeding tube placement until she finds out more about this potential cryotherapy at [facility]. Please feel free to reconsult the general surgery on-call if either a port placement or PEG tube is warranted.
[2016-09-10] VITALS (8 sets, daily range): BP systolic 106–150; BP diastolic 52–72; PULSE 65–87; RESP 16–18; O2SAT 94–100
[2016-09-10] MEDS: 0.9% Sodium Chloride 1,000 ML IV SCH ×3 (00:11→20:46)
[2016-09-10] MEDS: Pantoprazole 8 mg/Hr Infusion IV SCH ×6 (00:11→20:46)
--- NOTE | 2016-09-10 04:41 | NUR ---
Uneventful night Patient denies pain/discomfort. Independent in room. steady gait observed. patient denies nausea/vomiting/diarrhea. No s/s of bleeding. Patients H&H remains stable at this time. Protonix gtt infusing at 10mls/hr and IVF infusing. will continue to monitor.
[2016-09-10 05:44] LABS: BASOPHILS % (AUTO) 0.3 % (0-3); EOSINOPHILS % (AUTO) 1.8 % (0-5); MONOCYTES % (AUTO) 11.7 % (4-12); Mean Corpuscular Hemoglobin 29.8 pg (27.0-35.0); Mean Corpuscular Volume 95.4 fL (81-100); NEUTROPHILS % (AUTO) 77.1 % (40-74); Platelet Count 433 bil/L (150-400)
[2016-09-10] MEDS: Sucralfate 100 mg/mL 10 mL Suspension PO SCH ×4 (08:29→20:47)
--- NOTE | 2016-09-10 08:41 | PCM.PNSURG ---
Subjective Date of Service: Sep 10, 2016 Date of Service: Sep 10, 2016 Visit Information: Subjective: hb 7.8 this am. Pt denies rectal bleed or hematemesis. Concern AVM most likely oozing. Recommend transfer to [facility] for eval for cryotherapy. Postop General: No Complaints Objective Vital Sign- Last 8 Hours Date Time Temp Pulse Resp B/P Pulse Ox O2 Delivery O2 Flow Rate FiO2 09/10/16 05:23 36.6 65 16 106/55 97 Room Air 09/10/16 00:46 36.8 87 16 116/56 98 Room Air Intake and Output- Last 8 Hour 09/10/16 Cumulative From/Thru 07:00 09/07/16 11:45 - 09/10/16 05:22 Intake Total 150 ml 8194 ml Output Total 800 ml 1600 ml Balance -650 ml 6594 ml Intake Oral 150 ml 150 ml IV Total 7444 ml Packed Cells 600 ml Output Urine Total 800 ml 1500 ml Emesis 100 ml # Voids 3 # Bowel Movements 0 General: Oriented X3 Neck: Supple Lungs: Clear to Auscultation Heart: Exam Unremarkable Abdomen: Benign, Soft, Non-tender, Non-distended, No masses, Normoactive bowel tones Extremities: Distal Pulses Palpable Result Diagram: 09/10/1651909/10/1620 Assessment & Plan Impression 80-year-old female with a 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 The patient states that she has 15 upper endoscopies in the past for APC within her stomach. 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 s/p egd 09/08/16- FINDINGS: Upon inspection of the esophagus, esophagus was normal without masses, ulcers, or lesions. Z-line located at 40 cm from incisors. Upon entering the stomach, there was a diffuse amount of AVMs that were seen throughout the entire stomach, including the antrum, body and cardia. None were actively bleeding. Upon entering the small intestine, again there were diffuse AVMs seen in the duodenal bulb, first and second portion, nonbleeding. APC was then deployed at the AVMs in the duodenal bulb, first and second portion, and in the stomach. One AVM started to bleed during the procedure in the body of stomach during treatment which 0.1 cc epinephrine injection to cause tamponade and one hemoclip placed with good hemostasis. 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 RECOMMENDATIONS: 1. N.p.o. for the next 24 hours. 2. Continue Protonix drip. 3. Start Carafate 1 g by mouth four times a day. 4. If patient has no overt signs of bleeding and hemoglobin is stable overnight, then can transition to Protonix 40 mg by mouth twice a day in am. 5. If the patient re-bleeds, then I would recommend referral to [facility] for evaluation for cryotherapy given the diffuse extent of arteriovenous malformations seen during the upper endoscopy. The patient has had 15 prior upper endoscopies, which argon plasma coagulation was used, and given her history, is refractory to APC management. 09/09/16- hb drop 9.8-> 8.3. pt had 150cc hematemesis post egd. 09/10/16- hb 7.8 this am. RECOMMENDATIONS: 1. Carafate 1 g by mouth four times a day 2. Continue Protonix drip. 3. Recommend transfer to [facility] for cryotherapy given the diffuse extent of arteriovenous malformations seen during the upper endoscopy tiffany. The patient has had 15 prior upper endoscopies, which argon plasma coagulation was used, and given her history, is refractory to APC management. 4. Would recommend against PEG tube or feeding tube given extent of AVM seen in the stomach and duodenum. will continue to follow Problems: VTE Prophylaxis: SCDs Resuscitation Status: CPR: Attempt Resuscitation Bj Zhang MD Sep 10, 2016 08:41
--- NOTE | 2016-09-10 13:53 | NUR ---
Social Work-continued d/c planning: Data:EMR reviewed. Pt is on day 3 of hospitalization for GI bleed per H&P. GI has seen pt and is recommending transfer to [facility]. Hospitalist working on transfer. Per RN notes, pt has been up independent in her room. No anticipated discharge needs. SW will continue to follow. Assessment:Pt who is independent at baseline. plan:Pt to discharge home vs transfer to [facility]. No anticipated discharge needs. SW will continue to follow. SOHAN Gayle
--- NOTE | 2016-09-10 17:30 | PCM.PNMED ---
Subjective Date of Service Sep 10, 2016 Subjective No overnight events. Patient is stable. Denies chills, nausea, hematemesis, diarrhea. Exam Vital Signs Vital Sign - Last Date Time Temp Pulse Resp B/P Pulse Ox O2 Delivery O2 Flow Rate FiO2 09/10/16 13:18 36.9 69 16 128/56 98 Room Air 09/08/16 11:44 2 Intake and Output 09/09/16 09/09/16 09/10/16 Cumulative From/Thru 15:00 23:00 07:00 09/07/16 11:45 - 09/10/16 05:22 Intake Total 1770 ml 150 ml 8194 ml Output Total 800 ml 1600 ml Balance 1770 ml -650 ml 6594 ml Intake Oral 150 ml 150 ml IV Total 1770 ml 7444 ml Packed Cells 600 ml Output Urine Total 800 ml 1500 ml Emesis 100 ml # Voids 3 # Bowel Movements 0 Exam General: Alert, Oriented X3, NAD, cachectic appearing Head: Normocephalic, atraumatic Eyes: SHIRA, EOMI, no scleral Icterus Chest: clear to auscultation B/L, no wheezing rales or rhonchi Heart: Regular rate and rhythm. Normal S1, S2, no murmurs noted Abdomen: soft, non-tender. Bowel sounds are normoactive. No guarding or rebound. Extremities: no cyanosis, clubbing or edema. Lab and Diagnostics Result Diagram: 09/10/1651909/10/16519 Microbiology Microbiology JOY CULT URINE Final 09/09/16 Organism 1 MIXED UROGENITAL NASRIN U COLONY COUNT/QUANTITY 50,000-100,000 CFU/ml X-Rays, CTs and MRIs Chest Xray Interpretation: IMPRESSION: No acute cardiopulmonary disease. Dictated by: Blaze Zurita M.D. on 09/07/2016 at 12:38 Approved by: Blaze Zurita M.D. on 09/07/2016 at 12:38 12-lead ECG ECG Interpretation: normal sinus rhythm with a rate of [address] elevation T wave inversion in V1 and AVR no change from previous dated 07/23/2016 Time: 12:17 Interpreted by: ED physician Assessment & Plan This is a very pleasant 80 year old female with a history of gastric and duodenal hereditary hemorrhagic telangiectasias with related anemia, hypothyroidism and malnutrition who presented to [facility] on 09/07/16 after an episode of hematemesis overnight. She has been admitted for management of anemia and endoscopic evaluation of her upper GI tract by Dr. Zhang. Esophagogastroduodenoscopy was performed om with argon plasma coagulation, 0.1 cc epinephrine injection and hemoclip placement. Postoperative diagnosis is diffuse arteriovenous malformation throughout the entire stomach, duodenal bulb, first and second portion. 1. Upper GI bleed with significant hematemesis, acute, present on admission. - She has had 2 units of blood upon admission - Hospitalized last month for the same problem - Protonix drip - EGD results: diffuse arteriovenous malformation throughout the entire stomach , duodenal bulb, first and second portion, s/p argon plasma coagulation, 0.1 cc epinephrine injection with hemoclip placement. - Liquid diet - Carafate 1 g PO qid - Hemoglobin drop today to 7.8 from 9.8 - Consider another PRBC transfusion id H&H will not improve - Monitor H&H - Telemetry - Patient will be transferred to [facility] tomorrow morning for evaluation for cryotherapy 2. Acute blood loss anemia, present on admission. - Secondary to hemorrhagic telangiectasias and subsequent hematemesis. - She has had transfusion 2 units PRBC's. - Consider another PRBC transfusion id H&H will not improve. Hemoglobin today 7.8 - Monitor H&H 3. Hypotension, acute, present on admission, improved - Blood pressures are soft, likely chronic. BP 89/50 on admission - IVF NS 100 mls/hr - BP 106/55 today - Continue to monitor BP 4. BMI 15, protein malnutrition, chronic. - Patient states she has been loosing 5 pounds a month since May due to stomach problems - Pest Control Technician consult - When patient no longer NPO recommend the use of protein shakes to supplement diet - GI does not PEG tube or feeding tube given extent of AVM seen in the stomach and duodenum 5. Hypothyroidism, chronic, presume stable. - continue [place] Thyroid 90 mg when patient can tolerate oral intake. CODE STATUS: Full code DVT prophylaxis: Contraindicated in current GI bleeding Disposition: Likely home pending hospital course. GI Prophylaxis: Proton Pump Inhibitor VTE Prophylaxis: SCDs VTE Mechanical Devices: Intermittant Pneumatic CD Resuscitation Status: CPR: Attempt Resuscitation Attending Statement The patient was seen and examined together with Dr. Ramirez on 09/10/2016 and I agree with the history, exam and plan as outlined in the note above. LYNETTE RAMIREZ DO Sep 10, 2016 15:45 Raul Dowling MD Sep 11, 2016 09:45
--- NOTE | 2016-09-10 18:43 | NUR ---
Pain Pt complains of abd pain 4/10 on pain scale. Reports takes Tylenol at home for discomfrt. 650 mg of PO Tylenol given. Call light within reach. Will continue to monitor
[2016-09-11] VITALS (8 sets, daily range): BP systolic 103–124; BP diastolic 35–59; PULSE 69–90; RESP 14–18; O2SAT 96–99
--- NOTE | 2016-09-11 04:27 | NUR ---
PT ACTIVITY & LAB VALUES Pt has been up to [facility], independent, tolerates well. Pt has denied pain during shift. Pt has been able to sleep during night. 09/10/16 2000 & 09/11/16 0200 Hgb and Hct values have been improved from previous days values. No s/sx of active bleeding. Continue to monitor. Call light in reach. Intentional rounding.
[2016-09-11] MEDS: 0.9% Sodium Chloride 1,000 ML IV SCH ×2 (07:06→17:17)
[2016-09-11] MEDS: Pantoprazole 8 mg/Hr Infusion IV SCH ×4 (07:13→16:25)
[2016-09-11] MEDS: Sucralfate 100 mg/mL 10 mL Suspension PO SCH ×3 (07:34→17:19)
--- NOTE | 2016-09-11 08:25 | PCM.PNSURG ---
Subjective Date of Service: Sep 11, 2016 Date of Service: Sep 11, 2016 Visit Information: hb erratic overnight. hb 7.8-> 9.8-> 8.5 this am without blood transfusions. no overt signs bleeding overnight. await transfer to [facility] today. Postop General: No Complaints Objective Vital Sign- Last 8 Hours Date Time Temp Pulse Resp B/P Pulse Ox O2 Delivery O2 Flow Rate FiO2 09/11/16 05:02 37.3 86 14 119/57 96 Room Air 09/11/16 00:55 37.2 84 16 106/48 96 Room Air Intake and Output- Last 8 Hour 09/11/16 Cumulative From/Thru 07:00 09/07/16 11:45 - 09/11/16 05:00 Intake Total 1385 ml 02220 ml Output Total 1700 ml Balance 1385 ml 37789 ml Intake Oral 550 ml IV Total 1385 ml 04217 ml Packed Cells 600 ml Output Urine Total 1600 ml Emesis 100 ml # Voids 3 # Bowel Movements 0 General: Oriented X3 Neck: Supple Lungs: Clear to Auscultation Heart: Exam Unremarkable Abdomen: Benign, Soft, Non-tender, Non-distended, Normoactive bowel tones Extremities: Distal Pulses Palpable Result Diagram: 09/11/16 0204 09/10/16 0520 Assessment & Plan Impression 80-year-old female with a 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 The patient states that she has 15 upper endoscopies in the past for APC within her stomach. 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 s/p egd 09/08/16- FINDINGS: Upon inspection of the esophagus, esophagus was normal without masses, ulcers, or lesions. Z-line located at 40 cm from incisors. Upon entering the stomach, there was a diffuse amount of AVMs that were seen throughout the entire stomach, including the antrum, body and cardia. None were actively bleeding. Upon entering the small intestine, again there were diffuse AVMs seen in the duodenal bulb, first and second portion, nonbleeding. APC was then deployed at the AVMs in the duodenal bulb, first and second portion, and in the stomach. One AVM started to bleed during the procedure in the body of stomach during treatment which 0.1 cc epinephrine injection to cause tamponade and one hemoclip placed with good hemostasis. 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 RECOMMENDATIONS: 1. N.p.o. for the next 24 hours. 2. Continue Protonix drip. 3. Start Carafate 1 g by mouth four times a day. 4. If patient has no overt signs of bleeding and hemoglobin is stable overnight, then can transition to Protonix 40 mg by mouth twice a day in am. 5. If the patient re-bleeds, then I would recommend referral to [facility] for evaluation for cryotherapy given the diffuse extent of arteriovenous malformations seen during the upper endoscopy. The patient has had 15 prior upper endoscopies, which argon plasma coagulation was used, and given her history, is refractory to APC management. 09/09/16- hb drop 9.8-> 8.3. pt had 150cc hematemesis post egd. 09/10/16- hb 7.8 this am. 09/11/16- hb 7.8-> 9.8-> 8.5 without blood transfusions. RECOMMENDATIONS: 1. Carafate 1 g by mouth four times a day 2. Continue Protonix drip. 3. transfer to [facility] today for cryotherapy given the diffuse extent of arteriovenous malformations seen during the upper endoscopy 09/08/16 tiffany. The patient has had 15 prior upper endoscopies, which argon plasma coagulation was used, and given her history, is refractory to APC management. 4. Would recommend against PEG tube or feeding tube given extent of AVM seen in the stomach and duodenum. will sign off Problems: VTE Prophylaxis: SCDs Resuscitation Status: CPR: Attempt Resuscitation Bj Zhang MD Sep 11, 2016 08:25
--- NOTE | 2016-09-11 11:26 | NUR ---
NUTRITION ASSESSMENT Assess: 80 yo F w/ GI bleed. Pt notes 5 lbs wt loss per month since May. Pt to likely transfer today. Pt states that she has early satiety and has been losing wt d/t her decreased caloric intake. She denies nausea, vomiting, or taste changes. She continues to have an appetite despite early satiety. Pt states that her wt began gradually decreasing a few years ago when her condition started worsening. As of May she was ~110 lbs, now 80 lbs - 13.2 kg wt loss x4 months (26% wt loss x4 months = significant). Pt states she drinks 1 Ensure per day. PMHx: Ulcerated gastroesophageal junction, Irregular gastroesophageal junction, Gastric and duodenal hereditary hemorrhagic telangiectasia, Hypothyroid, Malnutrition Uterine fibroid. LABS: BUN 7, Cr < 0.30, Ca 8.1, AST 58, ALT 34, Alk phos 200, Albumin 2.4 MEDICATIONS: Reviewed. DIET: Soft, PO sips-100% DIET Hx/INTAKE SEO MANAGER: small portions 6x/d NUTRITION FOCUSED PHYSICAL ASSESSMENT: GI symptoms/stool: No BM recordedBraden: 19 Skin integrity: No issues noted Overall Appearance: Very thin woman - loss of LBM/subcutenous fat noted in biceps/triceps, forearms, squaring in shoulders, ribs visible on her chest, cheek bones prominent. ANTHROPOMETRICS: Current Wt: 36.8 kg BMI: 14.4 kg/m2 Admit Wt: 36.8 kg IBW: 52.3 kg UBW: 110-120 lbs (50-54.5 kg) Recent wt changes: 26% wt loss x4 months = significant (13.2 kg) ESTIMATED NEEDS: Malnutrition Calories: 5730-4751 kcal/d (25-30 kcal/kg/d IBW) Protein: 65-80 g/d (1.2-1.5 g/kg/d IBW) Fluids: 6451-9488 ml/d (1 ml/kcal/d) ADDITIONAL COMMENTS: NUTRITION DIAGNOSIS: 1) Severe malnutrition in the context of chronic illness as evidenced by 26% wt loss x4 months (significant), visible loss of LBM/subcutaneous fat, BMI of 14.4 kg/m2, and meeting <75% of estimated energy requirements >1 month. INTERVENTION: 1) Discussed increasing calories/protein 2) Encouraged pt to drink more than 1 Ensure per day 3) Encouraged pt to use High Calorie/Protein Recipe book that was provided to her during a previous admission 4) Provided handout on Suggestions for Increasing Calories and Protein MONITOR/EVALUATE: PO intake, Wt, Labs, Nutrition status, POC. Will follow per high nutrition risk guidelines.
--- NOTE | 2016-09-11 14:30 | NUR ---
Stool Pt reports having slightly hard BM today. No blood. Dark brown in color. Reports discomfort when eating, pre-medicated w/ tylenol, pt found effective. Able to eat breakfast and lunch. Appreciated visit from dietitian. Currently asleep in bed. Waiting for bed from [facility]. Per transfer center, bed should be available today.
--- NOTE | 2016-09-11 15:11 | PCM.DC.MED ---
Discharge Summary Date of Service Sep 11, 2016 Dates of Hospitalization Date of Hospital Admission Sep 07, 2016 at 13:28 Date of Discharge: Sep 11, 2016 Providers: Admitting Physician: Jan Parker DO Primary Care Physician: Macy Baird MD Attending Physician: Jan Parker DO Diagnosis at Time of Discharge Diagnosis at Time of Discharge 1. Upper GI bleed with significant hematemesis, acute, present on admission, improved. 2. Acute blood loss anemia, present on admission, ongoing. 3. Hypotension, acute, present on admission, improved. 4. BMI 15, protein malnutrition, chronic. 5. Hypothyroidism, chronic, presume stable. Consultations Dr. Bj Zhang, Gastroenterology Procedures XRay, CTs & MRIs Chest Xray Interpretation: IMPRESSION: No acute cardiopulmonary disease. Dictated by: Blaze Zurita M.D. on 09/07/2016 at 12:38 Approved by: Blaze Zuriat M.D. on 09/07/2016 at 12:38 ECG 12 Lead ECG Interpretation: normal sinus rhythm with a rate of [address] elevation T wave inversion in V1 and AVR no change from previous dated 07/23/2016 Time: 12:17 Interpreted by: ED physician Other Diagnostics EGD 09/08/16 FINDINGS: Upon inspection of the esophagus, esophagus was normal without masses, ulcers, or lesions. Z-line located at 40 cm from incisors. Upon entering the stomach, there was a diffuse amount of AVMs that were seen throughout the entire stomach, including the antrum, body and cardia. None were actively bleeding. Upon entering the small intestine, again there were diffuse AVMs seen in the duodenal bulb, first and second portion, nonbleeding. APC was then deployed at the AVMs in the duodenal bulb, first and second portion, and in the stomach. One AVM started to bleed during the procedure in the body of stomach during treatment which 0.1 cc epinephrine injection to cause tamponade and one hemoclip placed with good hemostasis. 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 Patient had a two unit blood transfusion yesterday when her hemoglobin was 6.4 This morning she woke at 03:00 and had one episode of vomiting blood. The blood in the vomit was dark with clots, and the vomiting was accompanied by abdominal pain. The patient has also been unable to eat recently, though food still tastes good and she has an appetite. She states she has been loosing about 5 pounds a month since May. She denies hematochezia, weakness, dizziness, syncope. The patient was admitted one month ago for a GI bleed. Patient states that her family history is non-contributory as she was adopted when she was 10 month old. Her 62 year old son and her grand daughter have inherited hereditary hemorrhagic telangiectasia as well. 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 The patient states that she has 15 upper endoscopies in the past for APC within her stomach. 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 Her hemoglobin was 7.4 on admission so she was transfused with 2 units of PRBC's after which her hemoglobin increased to 9.8. Esophagogastroduodenoscopy was performed on by Dr. Bj Zhang with argon plasma coagulation, 0.1 cc epinephrine injection and hemoclip placement. Postoperative diagnosis is diffuse arteriovenous malformation throughout the entire stomach, duodenal bulb, first and second portion. Per GI recommendation, patient needs to be transferred to another hospital or cryotherapy given the diffuse extent of arteriovenous malformations seen during the upper endoscopy. [facility] was contacted and they graciously agreed to except the patient. 1. Upper GI bleed with significant hematemesis, acute, present on admission. - She has had 2 units of blood on admission - H/H currently is 8.5/27.5 - Protonix drip 10 mls/hr - EGD 09/08/16 results: diffuse arteriovenous malformation throughout the entire stomach, duodenal bulb, first and second portion, s/p argon plasma coagulation, 0.1 cc epinephrine injection with hemoclip placement. - Carafate 1 g PO qid - Transfer to [facility] for evaluation for cryotherapy - Consider another PRBC transfusion id H&H will not improve - Monitor H&H - Telemetry 2. Acute blood loss anemia, present on admission. - Secondary to hemorrhagic telangiectasias and subsequent hematemesis - She has had transfusion 2 units PRBC's - Consider another PRBC transfusion id H&H will not improve - Monitor H&H 3. Hypotension, acute, present on admission, improved. - Blood pressures are soft, likely chronic. BP 89/50 on admission - IVF NS 100 mls/hr - BP 121/59 today - Continue to monitor BP 4. BMI 15, protein malnutrition, chronic. - Patient states she has been loosing 5 pounds a month since May due to stomach problems - Recruiting Intern consult - When patient no longer NPO recommend the use of protein shakes to supplement diet - Dr. Zhang would recommend against PEG tube or feeding tube given extent of AVM seen in the stomach and duodenum 5. Hypothyroidism, chronic, presume stable. - continue [place] Thyroid 90 mg when patient can tolerate oral intake. CODE STATUS: Full code DVT prophylaxis: Contraindicated in current GI bleeding Disposition: Transfer to [facility] Exam Test 09/07/16 11:55 09/07/16 13:35 09/10/16 05:20 09/11/16 08:30 Prothrombin Time 10.8sec (8.1-12.5) Prothromb Time International Ratio 1.01ratio Hold [place] Top Tube Received (Received) Urine Color Yellow (YELLOW) Urine Appearance Hazy (CLEAR,HAZY) Urine pH 6.5 (5.0-8.0) Urine Specific Van 1.015 (1.003-1.035) Urine Protein Negativemg/dL (NEG,TRACE) Urine Glucose (UA) Negativemg/dL (NEGATIVE) Urine Ketones Negativemg/dL (NEGATIVE) Urine Occult Blood Negative (NEGATIVE) Urine Nitrite Negative (NEGATIVE) Urine Bilirubin Negative (NEGATIVE) Urine Urobilinogen Normalmg/dL (NORMAL) Urine Leukocyte Esterase Trace (NEGATIVE) Urine RBC 0-2/hpf (0-2) Urine WBC 0-5/hpf (0-5) Urine Epithelial Cells Occasional/hpf (NONE-MOD) Urine Crystals None seen (NONE SEEN) Urine Bacteria Few/hpf (NONE-FEW) Urine Hyaline Casts None/lpf (NONE) Urine Granular Casts None seen (NONE SEEN) Urine Waxy Casts None seen (NONE SEEN) Urine Red Blood Cell Casts None seen (NONE SEEN) Urine White Blood Cell Casts None seen (NONE SEEN) Urine Mucus None seen (None Seen) Urine Trichomonas None seen (NONE SEEN) Urine Yeast None (NONE SEEN) Urinalysis Comment None Urine Culture Reflexed Indicated White Blood Count 7.6th/mm3 (3.8-10.1) Red Blood Count 2.62mil/mm3 (3.90-5.20) Mean Corpuscular Volume 95.4fL (81-100) Mean Corpuscular Hemoglobin 29.8pg (27.0-35.0) Mean Corpuscular Hemoglobin Concent 31.2% (32.0-37.0) Red Cell Distribution Width 17.6% (12.3-15.4) Platelet Count 433bil/L (150-400) Neutrophils (%) (Auto) 77.1% (40-74) Lymphocytes (%) (Auto) 9.0% (14-46) Monocytes (%) (Auto) 11.7% (4-12) Eosinophils (%) (Auto) 1.8% (0-5) Basophils (%) (Auto) 0.3% (0-3) Sodium Level 137mEq/L (134-144) Potassium Level 3.6mEq/L (3.5-5.2) Chloride Level 105mEq/L (97-108) Carbon Dioxide Level 21mmol/L (18-29) Blood Urea Nitrogen 7mg/dL (8-27) Creatinine < 0.30mg/dL (0.57-1.00) Estimat Glomerular Filtration Rate mL/min (>59) Glucose Level 78mg/dL (60-99) Calcium Level 8.1mg/dL (8.5-10.1) Total Bilirubin 0.8mg/dL (0.0-1.2) Aspartate Amino Transf (AST/SGOT) 58U/L (0-50) Alanine Aminotransferase (ALT/SGPT) 34U/L (0-32) Alkaline Phosphatase 200U/L (25-165) Total Protein 4.2g/dL (6.4-8.4) Albumin 2.4g/dL (3.4-5.0) Hemoglobin 8.8g/dL (12.0-15.6) Hematocrit 27.9% (35.0-46.0) CBC Test 09/10/16 05:20 09/11/16 08:30 White Blood Count 7.6th/mm3 (3.8-10.1) Red Blood Count 2.62mil/mm3 (3.90-5.20) Mean Corpuscular Volume 95.4fL (81-100) Mean Corpuscular Hemoglobin 29.8pg (27.0-35.0) Mean Corpuscular Hemoglobin Concent 31.2% (32.0-37.0) Red Cell Distribution Width 17.6% (12.3-15.4) Platelet Count 433bil/L (150-400) Neutrophils (%) (Auto) 77.1% (40-74) Lymphocytes (%) (Auto) 9.0% (14-46) Monocytes (%) (Auto) 11.7% (4-12) Eosinophils (%) (Auto) 1.8% (0-5) Basophils (%) (Auto) 0.3% (0-3) Hemoglobin 8.8g/dL (12.0-15.6) Hematocrit 27.9% (35.0-46.0) CMP Test 09/07/16 11:55 09/10/16 05:20 Hold [place] Top Tube Received Sodium Level 137mEq/L Potassium Level 3.6mEq/L Chloride Level 105mEq/L Carbon Dioxide Level 21mmol/L Blood Urea Nitrogen 7mg/dL Creatinine < 0.30mg/dL Estimat Glomerular Filtration Rate mL/min Glucose Level 78mg/dL Calcium Level 8.1mg/dL Total Bilirubin 0.8mg/dL Aspartate Amino Transf (AST/SGOT) 58U/L Alanine Aminotransferase (ALT/SGPT) 34U/L Alkaline Phosphatase 200U/L Total Protein 4.2g/dL Albumin 2.4g/dL Vital Signs (Last) Date Time Temp Pulse Resp B/P Pulse Ox O2 Delivery O2 Flow Rate FiO2 09/10/16 13:18 36.9 69 16 128/56 98 Room Air 09/08/16 11:44 2 Exam Date: 09/11/2016 Vital signs: T 36.9, P 69, RR 18, BP 103/49, O2 97% RA General: Alert, Oriented X3, NAD, cachectic appearing Head: Normocephalic, atraumatic Eyes: SHIRA, EOMI, no scleral Icterus Chest: Clear to auscultation B/L, no wheezing rales or rhonchi Heart: Regular rate and rhythm. Normal S1, S2, no murmurs noted Abdomen: Soft, non-tender. Bowel sounds are normoactive. No guarding or rebound. Extremities: No cyanosis, clubbing or edema. Test 09/07/16 11:55 09/07/16 13:35 09/10/16 05:20 Prothrombin Time 10.8sec (8.1-12.5) Prothromb Time International Ratio 1.01ratio Hold [place] Top Tube Received (Received) Urine Color Yellow (YELLOW) Urine Appearance Hazy (CLEAR,HAZY) Urine pH 6.5 (5.0-8.0) Urine Specific Van 1.015 (1.003-1.035) Urine Protein Negativemg/dL (NEG,TRACE) Urine Glucose (UA) Negativemg/dL (NEGATIVE) Urine Ketones Negativemg/dL (NEGATIVE) Urine Occult Blood Negative (NEGATIVE) Urine Nitrite Negative (NEGATIVE) Urine Bilirubin Negative (NEGATIVE) Urine Urobilinogen Normalmg/dL (NORMAL) Urine Leukocyte Esterase Trace (NEGATIVE) Urine RBC 0-2/hpf (0-2) Urine WBC 0-5/hpf (0-5) Urine Epithelial Cells Occasional/hpf (NONE-MOD) Urine Crystals None seen (NONE SEEN) Urine Bacteria Few/hpf (NONE-FEW) Urine Hyaline Casts None/lpf (NONE) Urine Granular Casts None seen (NONE SEEN) Urine Waxy Casts None seen (NONE SEEN) Urine Red Blood Cell Casts None seen (NONE SEEN) Urine White Blood Cell Casts None seen (NONE SEEN) Urine Mucus None seen (None Seen) Urine Trichomonas None seen (NONE SEEN) Urine Yeast None (NONE SEEN) Urinalysis Comment None Urine Culture Reflexed Indicated White Blood Count 7.6th/mm3 (3.8-10.1) Red Blood Count 2.62mil/mm3 (3.90-5.20) Hemoglobin 7.8g/dL (12.0-15.6) Hematocrit 25.0% (35.0-46.0) Mean Corpuscular Volume 95.4fL (81-100) Mean Corpuscular Hemoglobin 29.8pg (27.0-35.0) Mean Corpuscular Hemoglobin Concent 31.2% (32.0-37.0) Red Cell Distribution Width 17.6% (12.3-15.4) Platelet Count 433bil/L (150-400) Neutrophils (%) (Auto) 77.1% (40-74) Lymphocytes (%) (Auto) 9.0% (14-46) Monocytes (%) (Auto) 11.7% (4-12) Eosinophils (%) (Auto) 1.8% (0-5) Basophils (%) (Auto) 0.3% (0-3) Sodium Level 137mEq/L (134-144) Potassium Level 3.6mEq/L (3.5-5.2) Chloride Level 105mEq/L (97-108) Carbon Dioxide Level 21mmol/L (18-29) Blood Urea Nitrogen 7mg/dL (8-27) Creatinine < 0.30mg/dL (0.57-1.00) Estimat Glomerular Filtration Rate mL/min (>59) Glucose Level 78mg/dL (60-99) Calcium Level 8.1mg/dL (8.5-10.1) Total Bilirubin 0.8mg/dL (0.0-1.2) Aspartate Amino Transf (AST/SGOT) 58U/L (0-50) Alanine Aminotransferase (ALT/SGPT) 34U/L (0-32) Alkaline Phosphatase 200U/L (25-165) Total Protein 4.2g/dL (6.4-8.4) Albumin 2.4g/dL (3.4-5.0) Microbiology Results Microbiology JOY CULT URINE Final 09/09/16 Organism 1 MIXED UROGENITAL NASRIN U COLONY COUNT/QUANTITY 50,000-100,000 CFU/ml Discharge Medications Discharge Medications Norethindrone/Eth Estradiol (Zenchent) 1 Each Tablet 1 TABLET PO DAILY (Reported ) Pantoprazole (Pantoprazole DR) 40 Mg Tablet.dr 20 MG PO DAILY (Reported) Thyroid,Pork ([place] Thyroid) 90 Mg Tablet 90 MG PO DAILY Prescribed by: GOLD TYSON DO Disch Med Contraindications Anticoagulation Meds: Medical contraindication (GI bleeding) Followup Plan Disposition: [facility] Discharge Diet: Other (Soft Diet) Discharge Activity: No restrictions Follow-up Provider: Macy Baird MD Follow-up with PCP in: Other (Upon discharge from [facility]) Time spent 35 minutes Attending Statement The patient was seen and examined together with Dr. Ramirez on 09/11/2015 and I agree with the history, exam and plan as outlined in the note above. LYNETTE RAMIREZ DO Sep 10, 2016 17:28 Raul Dowling MD Sep 12, 2016 10:30
--- NOTE | 2016-09-11 15:13 | PCM.DIMED ---
LYNETTE RAMIREZ DO 09/11/16 1513: Discharge Instructions Date of Service Sep 11, 2016 Dates of Hospitalization Sep 07, 2016 at 13:28 Discharge Diagnosis Discharge Diagnosis 1. Upper GI bleed with significant hematemesis, acute, present on admission, improved. 2. Acute blood loss anemia, present on admission, ongoing. 3. Hypotension, acute, present on admission, improved. 4. BMI 15, protein malnutrition, chronic. 5. Hypothyroidism, chronic, presume stable. Diet Other (Soft Diet) Activity No restrictions Patient Instructions Follow-up Provider: Macy Baird MD Follow-up with PCP in: Other (Upon discharge from [facility]) Raul Dowling MD 09/12/16 1029: LYNETTE RAMIREZ DO Sep 11, 2016 15:13 Raul Dowling MD Sep 12, 2016 10:29
--- NOTE | 2016-09-11 18:30 | NUR ---
transfer/pain kia evening meal sans stomach pain-pretreated w/tylenol ac. notified transport team will be picking her up at 1930. pt states she hs notified family of impending transfer.
--- NOTE | 2016-09-11 20:01 | NUR ---
Transfer to [facility] Transferred to [facility] by ALS ambulance, left the floor at 2000, report given to RN of ALS ambulance, pt discharged with IV Protonix, Tele switched to monitor with Ambulance. Pt alert and oriented, VSS, denies any pain/N/V/SOB. Report has been given to Jacqueline Bonilla by day shift per report of Janice Alcaraz RN. Jacqueline Bonilla called by verse writer at [phone] on pt departure. Belongings with pt.
[2016-12-09] MEDS ORDERED: SUCR1ORA2 PO (10:39)
== END 2016-09-11 20:00 | disposition short-term general hospital (02) | DRG 378 ==
LOC: SED 11:42 → MPC 13:28
PROVIDERS: ADMIT Family Medicine; ATTEND Family Medicine
PROC: 30233N1 Transfusion of Nonautologous Red Blood Cells into Peripheral Vein, Percutaneous Approach (ICD-10-PCS; 2016-09-07)
PROC: 3E0G8TZ Introduction of Destructive Agent into Upper GI, Via Natural or Artificial Opening Endoscopic (ICD-10-PCS; principal; 2016-09-08 10:30)
DX: K92.2 Gastrointestinal hemorrhage, unspecified (principal); E46 Unspecified protein-calorie malnutrition; Z68.1 Body mass index [BMI] 19.9 or less, adult; R64 Cachexia; D62 Acute posthemorrhagic anemia; E03.9 Hypothyroidism, unspecified; I78.0 Hereditary hemorrhagic telangiectasia; K92.0 Hematemesis; K21.9 Gastro-esophageal reflux disease without esophagitis; Q27.39 Arteriovenous malformation, other site

== ENCOUNTER 2016-10-30 08:38 | Inpatient (IN) | payer MEDICARE ==
[~2016-10-30] VITALS: Ht 160 cm; Wt 39.3 kg
[2016-10-30] VITALS (15 sets, daily range): BP systolic 106–151; BP diastolic 34–68; PULSE 89–112; RESP 13–28; O2SAT 93–99
--- NOTE | 2016-10-30 09:05 | ED.REPORT ---
HPI-Abd Pain F 40 and Over Date of Service Oct 30, 2016 ED Provider: José Manuel Mclaughlin MD The patient is an 80 year old female with history of gastric and duodenal hereditary hemorrhagic telangiectasia, gastric AVMs, hypothyroidism, ulcers and previous upper GI bleeding requiring cryotherapy, who presents to the emergency department complaining of constant abdominal pain that began last night. The pain is located to her upper abdomen. She describes the pain as as if someone punched her in the stomach. She took Tylenol last night and was able to go to sleep. This morning she woke up and her pain was much more severe. She has not experienced similar symptoms in the past. She chronically has dark stools. She is currently taking pantoprazole and has not missed any doses. She denies nausea , vomiting, diarrhea, bloody stools, dysuria or hematuria. Her airplane technician is Dr. Sam. She does not take any blood thinners or NSAIDS. Nursing Notes Stated Complaint: ABDOMINAL PAIN Chief Complaint: Female Abdominal Pain Nursing Notes Reviewed: Yes Allergies: Coded Allergies: No Known Allergies (Verified , 10/30/16) Scheduled Norethindrone/Eth Estradiol (Zenchent) 1 Each Tablet 1 TABLET PO DAILY Pantoprazole DR (Pantoprazole DR) 20 Mg Tablet.dr 20 MG PO BID Thyroid,Pork ([place] Thyroid) 90 Mg Tablet 90 MG PO DAILY General Time Seen by MD: 09:04 Chief Complaint Abdominal pain Hx Obtained From: Patient, EMS Arrived By: Ambulance Sudden in Onset?: Yes Onset Occurred: Yesterday Symptom Duration: Since onset Progression since Onset: Constant, Gradually worsening Location: : Abdomen upper Quality: Painful Radiation: : Does not radiate Severity: Current: Moderate Severity: Maximum: Severe Pertinent Negative: Pt denies other symptoms Recent Healthcare: No recent doctor visit, No recent hospitalization Similar Sx Previous: No Past Medical History Past Medical History Notes: GI: Dr. Sam Past Medical History 1. Ulcerated gastroesophageal junction. 2. Irregular gastroesophageal junction. 3. Gastric and duodenal hereditary hemorrhagic telangiectasia. 4. Hypothyroidism 5. Malnutrition 6. 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 and resulting in constipation 7. Upper GI bleed transferred to [facility] for cryotherapy Past Surgical History One lobe thyroidectomy Upper endoscopy Family History Noncontributory Smoking History Never Smoker Social History Other Social History: Good social support, From out of town Ambulatory Status Independent Review of Systems +chronic dark stools GI: Reports: Abdominal pain, Denies: Diarrhea, Nausea, Vomiting Female: Denies: Dysuria, Hematuria Complete sys rev & neg: except as marked. Physical Exam Vital Signs Vital Signs (First) Date Time Temp Pulse Resp B/P Pulse Ox O2 Delivery O2 Flow Rate FiO2 10/30/16 08:45 35.7 92 25 125/34 97 Room Air 10/30/16 12:16 4 Initial VS: Reviewed Head / Eyes: Atraumatic, Normocephalic, PERRL ENT: Mucous membranes moist, Conjunctiva normal, No scleral icterus Neck: Supple, Non-tender, Full range of motion Lymphatic: No lymphadenopathy Extremities: Vascular intact, Neuro intact, No swelling, No tenderness Skin: Warm, Dry, No cyanosis Neurologic: Alert, Oriented, Nonfocal Psychiatric: Mood/affect normal, Behavior normal, Normal thought content General/Constitutional: Awake, Alert Respiratory / Chest: Atraumatic, Breath sounds NL, Breath sounds = bilat, No respiratory distress, No rales, No rhonchi, No wheezing, No stridor Cardiovascular: Heart rate NL, Regular rhythm, Heart sounds NL, Peripheral circulation NL Abdomen: Soft, McBurney's non-tender, No guarding, No rebound, BS normoactive, No distention, No hernia, No palpable mass, No pulsatile mass Tenderness/Guarding/Rebound: Positive: Tender epigastric No rigidity Back: No midline vertebral tend Lower Extremity / Pelvis / MS: Neurologic intact, Vascular intact, No edema No calf swelling or tenderness Interpretation & Diagnostics Lab Results Interpretation Result Diagram: 10/30/16 0900 10/30/16 0900 Test 10/30/16 09:00 10/30/16 09:21 10/30/16 13:45 White Blood Count 12.9th/mm3 (3.8-10.1) Red Blood Count 2.93mil/mm3 (3.90-5.20) Hemoglobin 8.4g/dL (12.0-15.6) Hematocrit 27.0% (35.0-46.0) Mean Corpuscular Volume 92.2fL (81-100) Mean Corpuscular Hemoglobin 28.7pg (27.0-35.0) Mean Corpuscular Hemoglobin Concent 31.1% (32.0-37.0) Red Cell Distribution Width 15.4% (12.3-15.4) Platelet Count 538bil/L (150-400) Neutrophils (%) (Auto) 84.0% (40-74) Lymphocytes (%) (Auto) 4.7% (14-46) Monocytes (%) (Auto) 10.8% (4-12) Eosinophils (%) (Auto) 0.1% (0-5) Basophils (%) (Auto) 0.2% (0-3) Prothrombin Time 9.8sec (8.1-12.5) Prothromb Time International Ratio 0.92ratio Sodium Level 135mEq/L (134-144) Potassium Level 3.9mEq/L (3.5-5.2) Chloride Level 99mEq/L (97-108) Carbon Dioxide Level 23mmol/L (18-29) Blood Urea Nitrogen 9mg/dL (8-27) Creatinine 0.35mg/dL (0.57-1.00) Estimat Glomerular Filtration Rate 255mL/min (>59) Glucose Level 106mg/dL (60-99) Calcium Level 9.0mg/dL (8.5-10.1) Magnesium Level 1.7mg/dL (1.6-2.6) Total Bilirubin 0.4mg/dL (0.0-1.2) Aspartate Amino Transf (AST/SGOT) 13U/L (0-50) Alanine Aminotransferase (ALT/SGPT) 8U/L (0-32) Alkaline Phosphatase 257U/L (25-165) Total Protein 6.1g/dL (6.4-8.4) Albumin 3.1g/dL (3.4-5.0) Lipase 20U/L (13-60) Hold [place] Top Tube Received (Received) Lactic Acid Level 1.6mmol/L (0.4-2.0) CT Abd / Pelvis Interpretation IMPRESSION: 1. Extraluminal oral contrast and free peritoneal air in the upper abdomen, consistent with viscus perforation, most likely perforated gastric or duodenal ulcer. 2. Heterogeneous enhancement of liver. There are 2 cystic masses in the inferior liver, which is new since 07/13/2016. There is an fluid fluid level within the more inferior cyst. Differential diagnosis included parasitic cysts, intrahepatic hematoma or abscess. If clinically indicated, ultrasound guided cyst aspiration could be considered. 3. A large heterogeneous mass in pelvis compatible with uterine leiomyomas. Dictated by: Tarik Sin M.D. on 10/30/2016 at 13:18 Study type: Abdom CT oral contrast Interpretation / Wet Read by: Interpret - Radiologist, Discussed w radiologist Re-Eval/Medical Decision Med Decision/Clinical Course The patient is a 80 year old female with history of gastric and duodenal hereditary hemorrhagic telangiectasia, gastric AVMs, hypothyroidism, peptic ulcer disease and previous upper GI bleeding requiring cryotherapy, who presents to the emergency department complaining of constant abdominal pain that began last night. The pain is located to her upper abdomen. She describes the pain as as if someone punched her in the stomach. Here in the emergency department the patient is uncomfortable appearing with significant tenderness about the epigastrium. She is tachycardic though otherwise afebrile and hemodynamically stable. Treated with 40 mg pantoprazole, GI cocktail, Zofran, Dilaudid, Fentanyl, and IV Zosyn LABS: hct is stable at 27, leukocytosis of 12.9, thrombocytosis with platelets of 538, coags normal, renal function and electrolytes are normal, alk phos elevated at 257 which is baseline Abdominal CT was obtained as below: Extraluminal oral contrast and free peritoneal air in the upper abdomen, consistent with viscus perforation, most likely perforated gastric or duodenal ulcer. 2. Heterogeneous enhancement of liver. There are 2 cystic masses in the inferior liver, which is new since 07/13/2016. There is an fluid fluid level within the more inferior cyst. Differential diagnosis included parasitic cysts, intrahepatic hematoma or abscess. If clinically indicated, ultrasound guided cyst aspiration could be considered. 3. A large heterogeneous mass in pelvis compatible with uterine leiomyomas. Patient was made NPO on maintenance fluids. IV Zosyn was administered. Findings as above were discussed with general surgeon as well as patient and family. They have opted for operative intervention. At this time I suspect ruptured gastric ulcer though cause of peritonitis and abdominal free air not entirely clear. Patient was transferred to the operating room for emergent intervention and was hemodynamically stable at time of transfer. Source of Hx: Old records, EMS, Family Re-Evaluation/Progress #1: Time of Eval: 09:57 Re-Evaluation/Progress Note: Rechecked the patient. Discussed lab results and plan for GI consult. Re-Evaluation/Progress #2: Time of Eval: 10:29 Re-Evaluation/Progress Note: The patient's pain has not improved with the medication. She is actually feeling worse. Discussed plan for CT scan. Re-Evaluation/Progress #3: Time of Eval: 13:04 Re-Evaluation/Progress Note: Rechecked the patient. Discussed CT results and recommended surgery. The patient agrees to have the surgery. Consultation #1: Referral / Consult Name: Iggy Mcdonald MD Requested Call at: 09:57 Call Returned at: 10:23 Appliance Mechanic: Agrees with eval, Agrees with plan Note: Spoke with the on-call airplane technician. He agrees with plan for discharge if the patient is feeling better. He recommends close followup with Dr. Sam. Consultation #2: Referral / Consult Name: Jovita Moncada MD Consulted With: Surgeon Call Returned at: 13:02 Appliance Mechanic: Will see patient, Agrees with eval, Agrees with plan, Requested OR, Accepts admit Counseled Regarding: Diagnosis, Lab results, Need for admission Discharge & Departure Primary Impression: Bowel perforation Additional Impressions: Upper abdominal pain Hereditary hemorrhagic telangiectasia Upper GI bleed Peritonitis Abdominal pain Abdominal location: epigastric Qualified Code: R10.13 - Epigastric pain Tachycardia Disposition: ADMITTED TO HOSPITAL Discharge Condition All VS Reviewed: Yes Condition: Stable Referrals: Macy Baird MD (PCP) Jose Sam MD Crit Care Except Billable Proc Time Spent: 105-134 minutes Services Performed: Patient management by me, Time spent at bedside, Reviewing test results, Reviewing imaging, Discussing patient care, Documentation in record, Time with fam/surrogate Scribe Attestation Portions of this note were transcribed by Dian España. I, Dr. Mclaughlin personally performed the history, physical exam and medical decision-making; I reviewed and confirmed the accuracy of the information in the transcribed note. Signed by: Kush Devi, 10/30/2016 at 1400. copies to: Macy Baird MD; Jose Sam MD, Beck O MD Oct 30, 2016 09:05 Dian España Oct 30, 2016 09:11
[2016-10-30] MEDS ORDERED: 0.9% Sodium Chloride 1,000 ML IV ONE (09:08)
[2016-10-30] MEDS ORDERED: Ondansetron 2 mg/mL 2 mL Inj IVPUSH ONE (09:10)
[2016-10-30 09:20] LABS: BASOPHILS % (AUTO) 0.2 % (0-3); EOSINOPHILS % (AUTO) 0.1 % (0-5); MONOCYTES % (AUTO) 10.8 % (4-12); Mean Corpuscular Hemoglobin 28.7 pg (27.0-35.0); Mean Corpuscular Volume 92.2 fL (81-100); Platelet Count 538 bil/L (150-400)
[2016-10-30] MEDS ORDERED: LidocaineVisc 2%:Antacid 1:1 10 mL Syringe PO ONE (09:25)
[2016-10-30] MEDS ORDERED: Pantoprazole 4 mg/mL 10 mL Inj IVPUSH ONE (09:25)
[2016-10-30 09:30] LABS: Magnesium 1.7 mg/dL (1.6-2.6)
[2016-10-30 09:41] LABS: INR 0.92 ratio
[2016-10-30] MEDS: HYDROmorphone 0.5 mg/0.5 mL iSecure Syringe IVPUSH PRN ×4 (10:55→13:25)
[2016-10-30] MEDS ORDERED: Iohexol 240 mg/mL 10 mL Inj PO ONE (11:05)
[2016-10-30] MEDS ORDERED: fentaNYL-PF 50 mCg/mL 2 mL Inj IVPUSH ONE ×2 (12:00→14:50)
[2016-10-30] MEDS ORDERED: Iohexol Inj 30 ML ONE (12:46)
[2016-10-30] MEDS ORDERED: HYDROmorphone 0.5 mg/0.5 mL iSecure Syringe ONE ×3 (12:46→12:47)
[2016-10-30] MEDS ORDERED: fentaNYL-PF 50 mCg/mL 2 mL Inj ONE (12:47)
[2016-10-30] MEDS ORDERED: Piperacillin-Tazo 3.375 Gm Inj 3.375 GM in Dextrose 5% Minibag Plus 50 ML IV ONE (13:05)
[2016-10-30] MEDS ORDERED: Ondansetron 2 mg/mL 2 mL Inj IVPUSH PRN ×3 (13:05→18:30)
[2016-10-30] MEDS: Lactated Ringer's 1,000 ML IV SCH ×2 (13:28→23:04)
--- NOTE | 2016-10-30 13:42 | DRSVH ---
PROCEDURE: CT ABDOMEN AND PELVIS WITH CONTRAST ([id number]) INDICATIONS: epigastric/RUQ pain, h/o PUD/AVM, has GB TECHNIQUE: After the administration of oral and intravenous contrast, 5 mm thick sections acquired from the diap hragms to the symphysis. 5 mm thick coronal and sagittal reformats were performed. For radiation do se reduction, the following was used: automated exposure control, adjustment of mA and/or kV accordi ng to patient size. COMPARISON: [facility], MR, MR PELVIS W&WO CON, 07/13/2016, 8:44. [facility], CT, CT CHEST ABDOMEN PELVIS W CONTRAST, 06/04/2016, 12:09 PM. FINDINGS: Image quality: Excellent. ABDOMEN: Lung bases: Bibasilar scars and atelectasis. Heart is moderately enlarged. Solid organs: Again noted is heterogeneous enhancement of liver. There is mild intrahepatic biliary dilation. There is interval development of 2 cystic lesions or a single complex cyst with internal se ptation in the inferior aspect of the liver measuring 5.8 x 4.5 x 3.6 cm. There is an fluid-fluid lev el within the more inferior cyst. Spleen is small. Gallbladder is normal. Biliary system is non-dilated. Pancreas enhances normally. No adrenal nodules. Kidneys are normal in size and enhancement, without hydronephrosis. Peritoneum and bowel: There is extraluminal oral contrast in the upper abdomen, left greater than ri ght, which is seen on the spleen, anterior to stomach and along the inferior margin of liver. There i s moderate amount of free peritoneal air. The CT findings are consistent with visceral perforation, most likely perforated gastric or duodenal ulcer. The small bowel and colon loops are normal in calib er and wall thickness. There is a large amount of stool in colon. Nodes and vessels: No retroperitoneal or mesenteric adenopathy. Aorta and inferior vena cava are no rmal in caliber. Miscellaneous: No ventral hernias. PELVIS: Genitourinary: Bladder wall thickness is normal. Again noted is a large heterogeneous mass in pelvi s compatible with a large myomatous uterus measuring 12.3 x 10.2 x 8.7. Miscellaneous: No inguinal hernias or adenopathy. Bones: No suspicious bony lesions. There is scoliosis. Severe degenerative changes in lumbar spine. No vertebral body compression fractures. IMPRESSION: 1. Extraluminal oral contrast and free peritoneal air in the upper abdomen, consistent with viscus pe rforation, most likely perforated gastric or duodenal ulcer. 2. Heterogeneous enhancement of liver. There are 2 cystic masses in the inferior liver, which is new since 07/13/2016. There is an fluid fluid level within the more inferior cyst. Differential diagnosis included parasitic cysts, intrahepatic hematoma or abscess. If clinically indicated, ultrasound guid ed cyst aspiration could be considered. 3. A large heterogeneous mass in pelvis compatible with uterine leiomyomas. Dictated by: Tarik Sin M.D. on 10/30/2016 at 13:18 Approved by: Tarik Sin M.D. on 10/30/2016 at 13:40
[2016-10-30] MEDS ORDERED: PANT20TA2 PO (14:07)
[2016-10-30] MEDS: fentaNYL-PF 50 mCg/mL 2 mL Inj IVPUSH PRN ×2 (14:13→14:52)
--- NOTE | 2016-10-30 15:44 | PCM.HPANE ---
Patient Data Surgeon Admitting Provider: Attending Provider:Jovita Moncada MD Primary Care Physician:Macy Baird MD Other Provider: Reason for Visit Perf Ulcer Ht/WT & BMI Height (Feet): 5 Height (Inches): 3 Weight (Kilograms): 38.5 Body Mass Index Allergies Coded Allergies: No Known Allergies (Verified , 10/30/16) Past Anesthesia History Anesthesia History: Denies:: Abnormal Airway, Anesthesia Reactions, Difficult Intubation, Fam Anesthesia Reaction, Fam Malignant Hypertherm, Malignant Hyperthermia Diabetes History Hx Diabetes?: No MRSA MRSA: No Medications Active Scripts Thyroid,Pork ([place] Thyroid)90 Mg Oqzoic11 Mg PO DAILY #30 TABLET Ref 0 Prov:MARBELLAGOLD VELASQUEZ A DO 07/23/[address] 20 Mg Tablet.dr20 Mg PO BID 10/30/16 Norethindrone/Eth Estradiol (Zenchent)1 Each Tablet1 Tablet PO DAILY 06/21/16 Discontinued Reported Medications Pantoprazole DR 40 Mg Tablet.dr20 Mg PO DAILY Ref 0 07/22/16 History History of ENT Problems?: Yes HEENT History: Positive for:: Cataracts Denies:: Abnormal Airway Difficult Intubation Dysphagia Hearing Problem Sinus Problem Hx of Heart Problems?: No Cardiovascular History: Denies:: AICD Atrial Fibrillation Cardiac Surgery Chest Pain Congestive Heart Failure Edema Heart Murmur Hypertension Irregular Heartbeat Pacemaker Thrombophlebitis Valvular Heart Disease Hx of Respiratory Problem?: No Respiratory History: Positive for:: Pneumonia (age 13) Denies:: Asthma COPD Chest Surgery Cough Dyspnea Emphysema Hemoptysis Tuberculosis Hx Neurologic Problems?: No Neurological History: Denies:: CVA Dementia Hx of GI Problems?: Yes Gastrointestinal History: Positive for:: Gastrointestinal Bleeding (multiple GI bleeds in the past) Denies:: Cirrhosis Diverticulitis Gastroesphageal Reflux Heartburn Hepatitis Hiatal Hernia Rectal Bleeding Hx of Problems?: No Genitourinary History: Positive for:: Urinary Tract Infection (years ago) Denies:: HX of Hemodialysis Kidney Stones HX of Peritoneal Dialysis: No Female Hx: Denies:: Currently Endometriosis Pelvic Inflammatory Problems with Breasts? Hx Musculoskeletal Problems?: No Musculoskeletal History: Denies:: Joint Replacement Musculoskeletal Trauma Hx of Psycho/Social Problems?: No Psycho Social History: Denies:: Anxiety Bipolar Disorder Hx Depression Suicide Attempt Hx Surgeries?: Yes (thyroidectomy) Hx Any Other Health Problems?: Yes Other History: Positive for:: Hospitalization Thyroid Disease (thyroidectomy) Denies:: Cancer History Blood Transfusions: Positive for:: Blood Transfusions Denies:: Blood Transfuse Reaction Hx Diabetes: No Hx Alcohol Use: Yes ("socially, very rarely")Hx Substance Use: No Smoking Status: Never Smoker Stop/Bang SHAREE Risk Assessment: Low Risk, <3 Yes Risk Assessment Category Category 1A: Patient has history of documented sleep apnea, and HAS NOT received any narcotic, sedative or anesthesia administration during this stay. Category 1B: Patient has history of documented sleep apnea, and HAS received any narcotic , sedative or anesthesia administration during this stay Category 2: Patient has SUSPECTED Obstructive Sleep Apnea, and HAS received any narcotic , sedative or anesthesia administration during this stay. Category 3: Patient has SUSPECTED Obstructive Sleep Apnea and HAS NOT received narcotic, sedative or anesthesia administration during this stay. Category 4: Outpatient in Procedural Areas with known sleep apnea or who screen positive for High Risk via the STOP/BANG questionnaire. Exam Exam Vital Signs Vital Signs Date Time Temp Pulse Resp B/P Pulse Ox O2 Delivery O2 Flow Rate FiO2 10/30/16 13:33 112 28 151/60 93 Nasal Cannula 2 10/30/16 12:16 106 140/60 97 Nasal Cannula 4 10/30/16 10:55 37.4 100 21 109/41 94 Room Air 10/30/16 08:45 35.7 92 25 125/34 97 Room Air General Appearance: Alert HEENT/AIRWAY: MP 1 Lungs: Clear to Auscultation Heart: Exam Unremarkable Meds/Labs/Diagnostics Admission Meds Current Medications Sodium Chloride (Normal Saline) 1,000 ml @ 0 mls/hr Q0M ONCE IV Last administered on 10/30/16 09:23; Start 10/30/16 at 09:08; Stop 10/30/16 at 09:12 ; Status DC Ondansetron HCl (Zofran Inj) 4 mg ONCE ONCE IVPUSH Last administered on 12:14; Start 10/30/16 at 09:10; Stop 10/30/16 at 09:12; Status DC Pantoprazole (Protonix Inj) 40 mg ONCE ONCE IVPUSH Last administered on 09:56; Start 10/30/16 at 09:25; Stop 10/30/16 at 09:26; Status DC Miscellaneous (GI Cocktail #2 10 mL) 10 ml ONCE ONCE PO Last administered on 09:55; Start 10/30/16 at 09:25; Stop 10/30/16 at 09:26; Status DC Iohexol (Omnipaque-240 Inj) 240 mg ONCE ONCE PO Last administered on 10:48; Start 10/30/16 at 11:05; Stop 10/30/16 at 11:06; Status DC Fentanyl Citrate 50 mcg 50 mcg ONCE ONCE IVPUSH Last administered on 12:04; Start 10/30/16 at 12:00; Stop 10/30/16 at 12:01; Status DC Lactated Ringer's 1,000 ml @ 100 mls/hr Q10H IV Last administered on 13:28; Start 10/30/16 at 13:04 Piperacillin Sod/ Tazobactam Sod/ Dextrose/Water (Zosyn 3.375 Gm Inj/D5W Minibag Plus) 50 ml @ 100 mls/hr ONCE ONCE IV Last administered on 10/30/16 13:31; Start 10/30/16 at 13:05; Stop 10/30/16 at 13:34; Status DC Labs Test 10/30/16 09:00 10/30/16 09:21 10/30/16 13:45 White Blood Count 12.9th/mm3 (3.8-10.1) Red Blood Count 2.93mil/mm3 (3.90-5.20) Hemoglobin 8.4g/dL (12.0-15.6) Hematocrit 27.0% (35.0-46.0) Mean Corpuscular Volume 92.2fL (81-100) Mean Corpuscular Hemoglobin 28.7pg (27.0-35.0) Mean Corpuscular Hemoglobin Concent 31.1% (32.0-37.0) Red Cell Distribution Width 15.4% (12.3-15.4) Platelet Count 538bil/L (150-400) Neutrophils (%) (Auto) 84.0% (40-74) Lymphocytes (%) (Auto) 4.7% (14-46) Monocytes (%) (Auto) 10.8% (4-12) Eosinophils (%) (Auto) 0.1% (0-5) Basophils (%) (Auto) 0.2% (0-3) Prothrombin Time 9.8sec (8.1-12.5) Prothromb Time International Ratio 0.92ratio Sodium Level 135mEq/L (134-144) Potassium Level 3.9mEq/L (3.5-5.2) Chloride Level 99mEq/L (97-108) Carbon Dioxide Level 23mmol/L (18-29) Blood Urea Nitrogen 9mg/dL (8-27) Creatinine 0.35mg/dL (0.57-1.00) Estimat Glomerular Filtration Rate 255mL/min (>59) Glucose Level 106mg/dL (60-99) Calcium Level 9.0mg/dL (8.5-10.1) Magnesium Level 1.7mg/dL (1.6-2.6) Total Bilirubin 0.4mg/dL (0.0-1.2) Aspartate Amino Transf (AST/SGOT) 13U/L (0-50) Alanine Aminotransferase (ALT/SGPT) 8U/L (0-32) Alkaline Phosphatase 257U/L (25-165) Total Protein 6.1g/dL (6.4-8.4) Albumin 3.1g/dL (3.4-5.0) Lipase 20U/L (13-60) Hold [place] Top Tube Received (Received) Lactic Acid Level 1.6mmol/L (0.4-2.0) Plan Impression Patient chart reviewed, patient interviewed and anesthestic plan with risks, benefits, and alternatives discussed, and informed consent obtained. NPO Status: > 8 hrs ASA Physical Status: ASA2 Plus Emergency Anesthetic Support Modalities: [place] Scope Anesthetic Plan: GA Bene/Risks/Altern/Consents: Yes HP Complete Prior to Induction: Yes Rebel Ferreira MD Oct 30, 2016 15:44
[2016-10-30] MEDS ORDERED: Lactated Ringer's 1,000 ML IV ONE ×2 (16:09→18:07)
[2016-10-30] MEDS ORDERED: Bupivacaine 0.5%/EPI 50 mL Inj INFILTRATE ONE (16:29)
[2016-10-30] MEDS ORDERED: Lactated Ringer's 500 ML IV PRN (16:31)
[2016-10-30] MEDS ORDERED: Lactated Ringer's 1,000 ML IV SCH (16:31)
[2016-10-30] MEDS ORDERED: HYDROmorphone 1 mg/mL Inj IVPUSH PRN (16:35)
[2016-10-30] MEDS ORDERED: EPHEDrine Sulfate 50 mg/mL Inj IVPUSH PRN (16:35)
[2016-10-30] MEDS ORDERED: Labetalol 5 mg/mL 4 mL Inj IV PRN (16:35)
[2016-10-30] MEDS ORDERED: MetoCLOpramide 5 mg/mL 2 mL Inj IVPUSH PRN ×2 (16:35→18:30)
[2016-10-30] MEDS ORDERED: Dexamethasone 4 mg/mL Inj IVPUSH PRN (16:35)
[2016-10-30] MEDS ORDERED: Atropine 0.4 mg/mL Inj IVPUSH PRN (16:35)
[2016-10-30] MEDS ORDERED: fentaNYL-PF 50 mCg/mL 2 mL Inj IVPUSH PRN (16:35)
[2016-10-30] MEDS ORDERED: Phenylephrine 10,000 mCg/mL Inj IVPUSH PRN (16:35)
[2016-10-30] MEDS ORDERED: Dextrose 5% Lactated Ringer's 1,000 ML IV SCH (18:26)
--- NOTE | 2016-10-30 18:39 | PCM.ANEP1 ---
Post Anesthesia Phase 1 PACU Phase 1 Assessment Vital Signs Vital Signs Date Time Temp Pulse Resp B/P Pulse Ox O2 Delivery O2 Flow Rate FiO2 10/30/16 15:47 37.4 112 28 151/60 93 Nasal Cannula 2 10/30/16 13:33 112 28 151/60 93 Nasal Cannula 2 10/30/16 12:16 106 140/60 97 Nasal Cannula 4 10/30/16 10:55 37.4 100 21 109/41 94 Room Air Anesthetic Administered: GA Level of Alertness: Sleepy, easy to arouse HERNANDEZ's with Equal Strength: Yes Pain: No (please refer to LIP CUTTER charting for pain assessment and management) Pain Scale Score: 0 Nausea or Vomiting: No Oxygen Delivery: Simple Mask Lungs: Clear to Auscultation Dermatome Level: Full Sensation Summary temp 37 sat 99 139/65 rr 15 asleep Rebel Ferreira MD Oct 30, 2016 18:39
--- NOTE | 2016-10-30 18:44 | PCM.ANEP2 ---
Post Anesthesia Evaluation ASA/CMS Post Anesthesia VS in Patient's Normal Range?: Yes Resp Stable; Airway Patent?: Yes CV Function & Hydration Stable: Yes Mental Status Recovered?: Yes Pain control Satisfactory?: Yes N/V Control Satisfactory?: Yes Rebel Ferreira MD Oct 30, 2016 18:44
--- NOTE | 2016-10-30 19:14 | PCM.SURGOP ---
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 She has undergone at least 15 endoscopies for control of bleeding from these arteriovenous malformations in the past. The most recent one was back in August 2016. Today she presented to the emergency department with a peritoneal abdomen and CT scan revealed perforation of the anterior aspect of the proximal stomach. For this reason she was brought to the operative suite for exploration and repair. She is chronically malnourished with a BMI of 15 and albumin 3.1. She was previously considered for gastric resection, but was considered to be too chronically malnourished to undergo such an operation. For this reason, the preoperative goal today was to control the source of her intra-abdominal sepsis without gastric resection or vagotomy. Findings: 1. 0.5 cm perforation of the anterior aspect of the proximal stomach, 2 cm distal to the gastroesophageal junction. This was closed primarily laparoscopically. An omental patch was placed. 2. Epigastric hernia with incarcerated falciform ligament. This was not repaired. Procedure Details The patient was brought to the operating room and placed in supine position. General endotracheal anesthesia was smoothly induced. Antibiotics had been infused previously in the emergency room. A warming blanket and SCDs were placed. A foot board was placed. The operative field was prepped and draped in sterile fashion. A pause was performed to confirm the correct patient, procedure, site, and side. A 10 mm incision was made in the left upper quadrant and a Veress needle was used for insufflation. A 10 mm incision was made in the left mid abdomen.. 2 additional 5 mm ports were placed in right upper quadrant and right mid abdomen. A liver retractor was placed in the most lateral of these ports. An additional 5 mm port was placed in the left lateral mid abdomen. There was bile -colored fluid throughout the upper abdomen. The duodenum and stomach were examined and a free perforation was identified on the anterior aspect of the stomach 2 cm distal to the gastroesophageal junction. The perforation was closed laparoscopically with 3 interrupted 2-0 silk stitches. A small piece of omentum was seen adjacent to the perforation, and this was sewn into place as a patch overlying the repair using 4 interrupted 2-0 silk stitches. The abdomen was copiously irrigated and the fluid was suctioned out. Of note, the patient has an epigastric hernia which she has known about for many years and was seen on the CT scan preoperatively. There was no sign of incarceration or strangulation of viscera on CT scan or laparoscopically. Intraoperatively, a portion of falciform ligament appeared incarcerated within it, and this was not reduced. A 19 Romansh JOSH drain was placed with its tip overlying the location of the perforation. The mid abdominal 10 mm port site was closed with interrupted 0 PDS using a fascial closure device. Of note, the decision was made intraoperatively to not place an NG tube. This is because preoperative discussion with her salvage repairer revealed that her arteriovenous malformations have been very friable in the past, and even with slight endoscopic trauma, would begin to actively bleed. The risk of gastric bleeding was then weighed against the risk of having no NG tube, and therefore one was not placed intraoperatively. The fascia at the sites with infused with 0.5% Marcaine with epinephrine. 0.5% Marcaine with epinephrine was infused at all port sites for postoperative analgesia. The skin was closed with subcuticular 4-0 Monocryl. Sterile dressings were placed. Sponge, instrument, and needle counts were correct at the end of the procedure. The patient was awakened from general anesthesia and taken to the postoperative care unit in good condition. Complications There were no periprocedural complications identified. Surgical Specimen Removed: No Specimen sent to Pathology: No Anesthetic Plan: GA Grafts, Implants: None Output, Estimated Blood Loss: 5 (ml) Blood Administration during san: No Drains: JOSH Drain #1 Post Operative Plan PPI drip, broad-spectrum antibiotics, swallow study in 2 days Jovita Moncada MD Oct 30, 2016 19:13
[2016-10-30 19:16] LABS: Mean Corpuscular Hemoglobin 28.7 pg (27.0-35.0); Mean Corpuscular Volume 92.4 fL (81-100); Platelet Count 502 bil/L (150-400)
--- NOTE | 2016-10-30 19:42 | CONS ---
[address] [address] CONSULTATION REPORT PATIENT: STEWART UREÑA : 1935 MR#: [id number] ADMIT: 10/30/2016 JOB ID: [id number] DATE OF SERVICE: 10/30/2016 CHIEF COMPLAINT: This is an 80-year-old woman whom I am consulted for abdominal pain at the request of Dr. José Manuel Mclaughlin of the Emergency Department. HISTORY OF PRESENT ILLNESS: This is an 80-year-old woman with a history of hereditary hemorrhagic telangiectasias status post multiple endoscopic attempts at hemostasis, who experienced an acute onset of abdominal pain and presented to the emergency department earlier today. A CT scan was performed revealing free air and free perforation of oral contrast from the anterior aspect of the proximal stomach. White blood cell count is normal. Vital signs are normal with the exception of tachycardia to 112 and tachypnea. She reported that her pain began yesterday and became progressively worse. She is peritoneal upon arrival to the emergency department. Her last upper endoscopy was on September 07, 2016 and was performed by Bj Zhang. At that time, he reported that the stomach had diffuse arteriovenous malformations throughout the entire stomach including the antrum, body, and cardia. None were actively bleeding. 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 One AVM started to bleed in the body of the stomach during the endoscopy, 0.1 cc of epinephrine injection caused tamponade and one hemoclip was placed. She also reports that she has been considered for gastric resection in the past. She was seen by a surgeon at [facility]. Gastric resection with Medardo-en-Y reconstruction was considered, however, due to her malnourished status (her BMI is 14.4, weight is 36.8 kg, and recent albumin levels have ranged between 2.4 and 3.1), the decision was made that she would not tolerate gastric resection. PAST MEDICAL HISTORY: 1. Hemorrhagic telangiectasias, as noted above. 2. Hypothyroidism status post thyroidectomy. 3. Malnutrition. 4. Uterine fibroid mass. PAST SURGICAL HISTORY: 1. Thyroidectomy. 2. Multiple upper endoscopies. MEDICATIONS: 1. Pantoprazole b.i.d. 2. [place] thyroid. 3. Norethindrone/estradiol. ALLERGIES: No known drug allergies. FAMILY HISTORY: Reviewed and noncontributory. SOCIAL HISTORY: She lives in [place] with her . Her daughter lives nearby in [place] and is present today. She is not a smoker, rarely drinks alcohol, no recreational drugs. REVIEW OF SYSTEMS: She has chronic dark stools and review systems is also positive for abdominal pain. It is negative for significant cardiac, pulmonary, renal, and hepatic comorbidities. PHYSICAL EXAMINATION: Temperature 37.4, heart rate 112, respiratory rate of 28, blood pressure 151/60, saturation 93% on 2 liters nasal cannula. General: Awake and alert, in moderate distress. Head: Normocephalic. Neck: Supple. Cardiac: Tachycardic, regular rhythm. Respiratory: Clear to auscultation bilaterally. Abdomen: Soft, distended, peritoneal abdomen with rebound and guarding. She also has the midline epigastric hernia, not easily reducible on examination. Extremities: Thin, no edema. Neurologic: No gross deficits. Psychiatric: Normal cognition. LABS: White blood cell count is 12.9, hematocrit 27, platelets 538. Comprehensive metabolic panel is normal with the exception of alkaline phosphatase 257, albumin 3.1. IMAGING: CT scan of the abdomen is personally reviewed with the radiologist and reveals free fluid and air and oral contrast which is seen actively dispersing from a perforation in anterior aspect of the proximal stomach. She also has an epigastric hernia with some loops of small bowel in it, but with no sign of strangulation, no associated edema or fat stranding, and no site of obstruction. ASSESSMENT: An 80-year-old woman with hereditary hemorrhagic telangiectasia and arteriovenous malformations throughout the stomach with chronic gastrointestinal bleeding from this who presents with an acute gastric perforation. RECOMMENDATIONS: I recommend immediate exploration in the operating room. I will perform laparoscopy with possible laparotomy. Because of her severely malnourished state, the goal will be to identify the perforation, close the hole, place a patch of omentum, and minimize the overall physiologic effects from the operation. She has already been judged to be a poor candidate for gastrectomy or gastric resection, and I agree. Likewise, most likely the etiology of her perforation is related to her underlying gastric AVMs, and less likely related to acid secretions; therefore, I will not be performing vagotomy. I described all of this to the patient. I considered upper endoscopy intraoperatively, however, it will not affect management and therefore will not be performed. She and her daughter understand and elect to proceed. MTDD
[2016-10-30 19:46] LABS: BASOPHILS % (AUTO) 0 % (0-3); EOSINOPHILS % (AUTO) 0 % (0-5); MONOCYTES % (AUTO) 5 % (4-12); NEUTROPHILS % (AUTO) 50 % (40-74)
[2016-10-30] MEDS ORDERED: Succinylcholine Chloride 20 mg/mL 5 mL Inj ONE (19:49)
[2016-10-30] MEDS ORDERED: Propofol 10,000 mCg/mL 20 mL Inj ONE (19:49)
[2016-10-30] MEDS ORDERED: Ketamine 10 mg/mL 20 mL Inj ONE (19:49)
[2016-10-30] MEDS ORDERED: Rocuronium 10 mg/mL 5 mL Inj ONE (19:49)
[2016-10-30] MEDS ORDERED: Neostigmine 1 mg/mL 5 mL Inj ONE (19:49)
[2016-10-30] MEDS ORDERED: Dexamethasone 4 mg/mL Inj ONE (19:49)
[2016-10-30] MEDS ORDERED: Glycopyrrolate 0.2 mg/mL 5 mL Inj ONE (19:49)
[2016-10-30] MEDS: Dextrose 5% 0.9% NaCl 1,000 ML IV SCH (21:55)
--- NOTE | 2016-10-30 22:27 | PCM.HPMED ---
Subjective Date of Service Oct 30, 2016 Primary Provider: Admitting Physician: Jovita Moncada MD Primary Care Physician: Macy Baird MD Attending Physician: Jovita Moncada MD Chief Complaint: Abdominal pain . History of Present Illness: This is an 80 years old female status post sacral ulcer perforation repair this evening and medicine was consulted for further management. Patient initially presented to the emergency room for abdominal pain and a CT scan of the abdomen show extraluminal oral contrast and free peritoneal air in the upper abdomen, consistent with viscus perforation . The patient has a history of hereditary hemorrhagic telangiectasias status post multiple endoscopic attempts at hemostasis, including Lantus endoscopy on August [address] Zhang which showed multiple AV malformation gastric antrum antibody, duodenum. Patient has been quite malnourished. A av en Y surgery was being considered at some point in the recent past but has been put on hold to severe malnutrition Review of Systems: Comprehensive review by 12 points is negative except for described above in history of present illness Allergies Coded Allergies: No Known Allergies (Verified , 10/30/16) Home Medications 1. Pantoprazole b.i.d. 2. [place] thyroid. 3. Norethindrone/estradiol. PMH 1. Hemorrhagic telangiectasias, as noted above. 2. Hypothyroidism status post thyroidectomy. 3. Malnutrition. 4. Uterine fibroid mass. Surgical History 1. Thyroidectomy. 2. Multiple upper endoscopies. Family History Family history reviewed and is noncontributory to the present illness Social History Hx Alcohol Use: Yes ("socially, very rarely") Hx Substance Use: No Hx Tobacco Use: No Smoking Status: Never Smoker Exam Vital Signs Vital Sign - Last Date Time Temp Pulse Resp B/P Pulse Ox O2 Delivery O2 Flow Rate FiO2 10/30/16 19:56 36.5 92 18 120/62 97 Room Air 10/30/16 19:26 3 Exam General, cachectic female in bed comfortably in no acute distress. HEENT: PERRL, sclerae anicteric, Mouth : Moist oral mucosa, no oral thrush Neck: No cervical lymphadenopathy, trachea is midline, no JVD, supple Chest: No chest wall tenderness, no deformity, normal respiratory effort Lungs : Clear bilaterally, no crackles, no wheezing Heart: Norrmophnetic, regular rate and rhythm Abdomen: Tender on palpation, surgical site is intact no bleeding, drain yielding serosanguineous fluid Extremity: No cyanosis, no edema NEuro ; awake, alert, oriented 3. grossly Non focal Lab and Diagnostics Result Diagram: 10/30/16 1900 10/30/16 0900 X-Rays, CTs and MRIs Abdominal CT scan reviewed and showed: Extraluminal oral contrast and free peritoneal air in the upper abdomen, consistent with viscus perforation, most likely perforated gastric or duodenal ulcer. 2. Heterogeneous enhancement of liver. There are 2 cystic masses in the inferior liver, which is new since 07/13/2016. There is an fluid fluid level within the more inferior cyst. Differential diagnosis included parasitic cysts, intrahepatic hematoma or abscess. If clinically indicated, ultrasound guided cyst aspiration could be considered. 3. A large heterogeneous mass in pelvis compatible with uterine leiomyomas. Assessment & Plan 1. Gastric perforation : Secondary to ulcers. Patient is status post surgical intervention with repair. Case discussed with surgery. Patient to be kept nothing by mouth at this for 2 days. *IV hydration with D5 normal saline at 75 mL per hour. Discontinue Ringer lactate. IV antibiotics : Zosyn . PPI drip. 2. Severe malnutrition : Consult nutrition. 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 Patient not a good candidate for partial gastric resection due to severe malnutrition 4. Thrombocytosis : Mild. Reactive . Clinically and hemodynamically stable. Labs in AM : CMP, cbc. Dilaudid for pain . Surgery follow up. GI Prophylaxis: Proton Pump Inhibitor VTE Prophylaxis: SCDs Time spent 75 minutes Bj Avendano MD Oct 30, 2016 22:27
[2016-10-30] MEDS ORDERED: 0.9% Sodium Chloride 250 ML ONE (23:50)
[2016-10-30] MEDS: Piperacillin-Tazo 3.375 Gm Inj 3.375 GM in Dextrose 5% Minibag Plus 50 ML IV SCH (23:54)
[2016-10-31 00:22] VITALS: BP 140/72; PULSE 109; RESP 20; O2SAT 96
[2016-10-31] MEDS: fentaNYL-PF 50 mCg/mL 2 mL Inj IVPUSH PRN ×2 (00:26→02:30)
--- NOTE | 2016-10-31 02:00 | NUR ---
Post op Pt arrived from PACU at 1950. she arrived already in a hospital bed. nurse checked dressings and drains with PACU nurse. JOSH draining serous drainage. lap sites c/d/i. the rest of the post op assessment was completed by Caryn cohen RN. please see post op assessment charting. due to incompatibility of IV meds the charge nurse had to start 2 additional peripheral IV lines. pt now has 3 peripheral lines with D5LR, zosyn, and protonix running on a triple pump. pt NPO per Dr. Moncada orders. has been given mouth swabs and mouth moisturizer. bed in low position, call light within reach. care continues.
[2016-10-31] MEDS: Acetaminophen IV 1,000 MG in IV Premix 1 EACH IV PRN ×4 (04:31→23:13)
[2016-10-31 05:01] VITALS: BP 117/65; PULSE 100; RESP 18; O2SAT 95
[2016-10-31 06:53] LABS: EOSINOPHILS % (AUTO) 0 % (0-5); Mean Corpuscular Hemoglobin 28.5 pg (27.0-35.0); Mean Corpuscular Volume 92.1 fL (81-100); Platelet Count 447 bil/L (150-400)
[2016-10-31] MEDS: Dextrose 5% 0.9% NaCl 1,000 ML IV SCH ×2 (07:28→15:34)
[2016-10-31 07:33] LABS: BASOPHILS % (AUTO) 0 % (0-3); MONOCYTES % (AUTO) 6 % (4-12); NEUTROPHILS % (AUTO) 83 % (40-74)
[2016-10-31 08:39] VITALS: BP 118/62; PULSE 92; RESP 25; O2SAT 96
[2016-10-31] MEDS: Pantoprazole Inj 80 MG in 0.9% Sodium Chloride 80 ML IV SCH ×4 (08:51→18:14)
[2016-10-31] MEDS: Piperacillin-Tazo 3.375 Gm Inj 3.375 GM in Dextrose 5% Minibag Plus 50 ML IV SCH ×3 (08:58→22:31)
[2016-10-31] MEDS: Lactated Ringer's 1,000 ML IV SCH (09:00)
[2016-10-31 10:48] VITALS: BP 122/61; PULSE 92; RESP 28; O2SAT 95
--- NOTE | 2016-10-31 14:24 | NUR ---
NUTRITION ASSESSMENT: Assess: 80 yo F admitted for acute gastric perforation. Surgery performed laparoscopy and possible laparotomy. She is NPO per surgery. Pt's wt began gradually decreasing a few years ago when her condition started worsening. Wt at last admit was ~36kg (09/11/16). Current wt is recorded at 46.6kg. Unsure of accuracy of wt changes. Pt experiences early satiety so tries to eat small/ more frequent meals. She can drink ~1 Ensure/day. Per MD admit note, pt is to get TPN if she remains NPO more than 2 days. PMHx: Ulcerated gastroesophageal junction, Irregular gastroesophageal junction, Gastric and duodenal hereditary hemorrhagic telangiectasia, Hypothyroid, Malnutrition Uterine fibroid. LABS: Reviewed. Family Law Attorney .42, Glu 178, Ca 8.4, Alb 3.1 MEDICATIONS: Reviewed. DIET: NPO NUTRITION FOCUSED PHYSICAL ASSESSMENT: GI symptoms/stool: No BM recorded Cosmo: 14 Skin integrity: No issues noted Overall Appearance: thin woman lying in bed - loss of LBM/ fat noted in arms, squaring in shoulders, cheek bones prominent. ANTHROPOMETRICS: Current Wt: 46.6 kg, BMI: 18.2kg/m2, Admit Wt: 43.2kg IBW: 52.3 kg, wt at previous admit (09/11/16): 36kg, UBW: 110-120 lbs (50-54.5 kg) Recent wt changes: 26% wt loss x4 months = significant (13.2 kg) ESTIMATED NEEDS: Malnutrition Calories: 6101-9807 kcal/d (25-30 kcal/kg/d IBW) Protein: 65-80 g/d (1.2-1.5 g/kg/d IBW) Fluids: 2704-5471 ml/d (1 ml/kcal/d) NUTRITION DIAGNOSIS: 1) Severe malnutrition related to chronic illness as evidenced by variable wt, recent 26% wt loss x4 months (significant), visible loss of LBM/ fat, meeting <75% of estimated energy requirements >1 month. 2) Inadequate oral intake related to altered GI function as evidence by current NPO status, early satiety, persistent wt loss. INTERVENTION: 1) Recommend advance diet when medically appropriate 2) If diet is advanced, recommend add Ensure on L tray per pt preference 3) Pt received high kcal/pro education at past admits and has high kcal/pro recipe book 4) If pt remains NPO and GI is not functional, recommend start TPN at 110g Dex, 45g AA and 20g lipids to provide 754kcal and 45g pro. Monitor labs closely. If tolerated, slowly increase macronutrients to goal of 220g dex, 75g AA and 45g lipids to provide 1500kcal and 75g pro (100% estimated needs) MONITOR/EVALUATE: NPO, diet advance, nutrition support? Wt, Labs, Nutrition status, POC. Will follow per high nutrition risk guidelines.
--- NOTE | 2016-10-31 14:25 | NUR ---
Pain/post op progress Complains of abd pain 3-4/10 with goal 2/10. IV acetaminophen for pain with good effect. Bowel tones present in all quadrants. JOSH draining sero-sang thick fluid. Lap site dressings CDI. Continue NPO per orders.
--- NOTE | 2016-10-31 15:04 | PCM.PNSURG ---
Subjective Date of Service: Oct 31, 2016 Visit Information: Reason for Visit Perf Ulcer Surgery/Surgery Date LAPRASCOPIC REPAIR PERFORATED GASTRIC ULCER 10/30/16 Post-Op Day #1 Date of Admission: Oct 30, 2016 at 19:48 Hospital Day # Subjective: Comfortable with scheduled IV Tylenol, no narcotics. Notices when the IV Tylenol starts to wear off at the fifth hour between her every 6 hours doses. No nausea or vomiting. No flatus or bowel movement. Has not ambulated, very weak requiring assistance to roll from side to side in the bed. Postop General: Other (as above) Gastrointestinal: Good Appetite, No N/V Pain Management: Good Pain Control, Other (scheduled IV acetaminophen) Postop Activity: Other (bed rest) Objective Vital Sign- Last 8 Hours Date Time Temp Pulse Resp B/P Pulse Ox O2 Delivery O2 Flow Rate FiO2 10/31/16 14:00 Supplement Oxygen 10/31/16 10:48 36.8 92 28 122/61 95 Nasal Cannula 1.00 10/31/16 08:39 36.6 92 25 118/62 96 Nasal Cannula 1.00 10/31/16 07:15 Supplement Oxygen Intake and Output- Last 8 Hour 10/31/16 Cumulative From/Thru 07:00 10/30/16 08:45 - 10/31/16 06:00 Intake Total 740 ml 2940 ml Output Total 380 ml 775 ml Balance 360 ml 2165 ml Intake Oral 0 ml 0 ml IV Total 740 ml 2940 ml Output Urine Total 300 ml 500 ml Drainage Total 80 ml 260 ml Estimated Blood Loss 15 ml General: Alert, Cooperative, No Acute Distress, Other (cachectic) Lungs: Clear to Auscultation Heart: Regular Rate/Rhythm, No Murmurs/Rubs/Gallops Abdomen: Soft, Appropriately tender, Distended (moderately distended), Tympanic SURGICAL WOUND : Wound General Appearence: Steri Strips, Sutures, No Erythema, No Discharge, Wound under dressing Wound Drainage Type: JOSH Drain #1 (80 mL of serosanguineous drainage over the last 8 hours.) Extremities: Thigh&Calf Soft/Nontender Neuro: Normal Speech Catheters: Urethral 2 Way Arellano Result Diagram: 10/31/1662910/31/16629 Assessment & Plan Impression Primary diagnosis: 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 POD #1, comfortable on scheduled IV acetaminophen and IV PPI. Does not appear toxic. Other diagnoses: 1. Hemorrhagic telangiectasias. 2. Hypothyroidism status post thyroidectomy. 3. Malnutrition. 4. Uterine fibroid mass. Problems: Plan 1. Continue nothing by mouth 2. Gastrografin swallow tomorrow morning to assess for leak. If no leak will start with a liquid diet. 3. Incentive spirometer 4. Out of bed as tolerated. 5. Repeat labs in the morning. Pain Management: Scheduled IV acetaminophen VTE Prophylaxis: SCDs Resuscitation Status: CPR: Attempt Resuscitation copies to: Macy Baird MD, Fred H PA-C Oct 31, 2016 15:04
[2016-10-31 15:27] VITALS: BP 123/59; PULSE 94; RESP 22; O2SAT 96
--- NOTE | 2016-10-31 16:05 | PCM.PNMED ---
Subjective Date of Service Oct 31, 2016 Subjective Patient does have some intermittent abdominal pain although does seem to initially respond to IV Tylenol. She is complaining of problems with sleeping. Exam Vital Signs Vital Sign - Last Date Time Temp Pulse Resp B/P Pulse Ox O2 Delivery O2 Flow Rate FiO2 10/31/16 15:27 37.1 94 22 123/59 96 Nasal Cannula 1.00 Intake and Output 10/30/16 10/30/16 10/31/16 Cumulative From/Thru 14:59 22:59 06:59 10/30/16 08:45 - 10/31/16 06:00 Intake Total 1000 ml 1200 ml 740 ml 2940 ml Output Total 395 ml 380 ml 775 ml Balance 1000 ml 805 ml 360 ml 2165 ml Intake Oral 0 ml 0 ml IV Total 1000 ml 1200 ml 740 ml 2940 ml Output Urine Total 200 ml 300 ml 500 ml Drainage Total 180 ml 80 ml 260 ml Estimated Blood Loss 15 ml 15 ml Exam Constitutional: Cachectic appearing elderly female Head: Normocephalic atraumatic Chest: Decreased breath sounds at her bases Cor: Regular rate and rhythm S1-S2 Abdomen: Soft there is diffuse tenderness dressings are in place bowel sounds are hypoactive. Extremities: No pedal edema Lab and Diagnostics Laboratory Tests 72 Hours Test 10/30/16 09:00 10/30/16 09:21 10/30/16 13:45 10/30/16 19:00 White Blood Count 12.9th/mm3 (3.8-10.1) 13.7th/mm3 (3.8-10.1) Red Blood Count 2.93mil/mm3 (3.90-5.20) 3.03mil/mm3 (3.90-5.20) Hemoglobin 8.4g/dL (12.0-15.6) 8.7g/dL (12.0-15.6) Hematocrit 27.0% (35.0-46.0) 28.0% (35.0-46.0) Mean Corpuscular Volume 92.2fL (81-100) 92.4fL (81-100) Mean Corpuscular Hemoglobin 28.7pg (27.0-35.0) 28.7pg (27.0-35.0) Mean Corpuscular Hemoglobin Concent 31.1% (32.0-37.0) 31.1% (32.0-37.0) Red Cell Distribution Width 15.4% (12.3-15.4) 15.5% (12.3-15.4) Platelet Count 538bil/L (150-400) 502bil/L (150-400) Neutrophils (%) (Auto) 84.0% (40-74) 50% (40-74) Lymphocytes (%) (Auto) 4.7% (14-46) 3% (14-46) Monocytes (%) (Auto) 10.8% (4-12) 5% (4-12) Eosinophils (%) (Auto) 0.1% (0-5) 0% (0-5) Basophils (%) (Auto) 0.2% (0-3) 0% (0-3) Prothrombin Time 9.8sec (8.1-12.5) Prothromb Time International Ratio 0.92ratio Sodium Level 135mEq/L (134-144) Potassium Level 3.9mEq/L (3.5-5.2) Chloride Level 99mEq/L (97-108) Carbon Dioxide Level 23mmol/L (18-29) Blood Urea Nitrogen 9mg/dL (8-27) Creatinine 0.35mg/dL (0.57-1.00) Estimat Glomerular Filtration Rate 255mL/min (>59) Glucose Level 106mg/dL (60-99) Calcium Level 9.0mg/dL (8.5-10.1) Magnesium Level 1.7mg/dL (1.6-2.6) Total Bilirubin 0.4mg/dL (0.0-1.2) Aspartate Amino Transf (AST/SGOT) 13U/L (0-50) Alanine Aminotransferase (ALT/SGPT) 8U/L (0-32) Alkaline Phosphatase 257U/L (25-165) Total Protein 6.1g/dL (6.4-8.4) Albumin 3.1g/dL (3.4-5.0) Lipase 20U/L (13-60) Hold [place] Top Tube Received (Received) Lactic Acid Level 1.6mmol/L (0.4-2.0) Band Neutrophils % 42% (1-5) Test 10/31/16 06:30 White Blood Count 16.2th/mm3 (3.8-10.1) Red Blood Count 2.53mil/mm3 (3.90-5.20) Hemoglobin 7.2g/dL (12.0-15.6) Hematocrit 23.3% (35.0-46.0) Mean Corpuscular Volume 92.1fL (81-100) Mean Corpuscular Hemoglobin 28.5pg (27.0-35.0) Mean Corpuscular Hemoglobin Concent 30.9% (32.0-37.0) Red Cell Distribution Width 15.3% (12.3-15.4) Platelet Count 447bil/L (150-400) Neutrophils (%) (Auto) 83% (40-74) Lymphocytes (%) (Auto) 2% (14-46) Monocytes (%) (Auto) 6% (4-12) Eosinophils (%) (Auto) 0% (0-5) Basophils (%) (Auto) 0% (0-3) Band Neutrophils % 9% (1-5) Sodium Level 136mEq/L (134-144) Potassium Level 4.2mEq/L (3.5-5.2) Chloride Level 102mEq/L (97-108) Carbon Dioxide Level 23mmol/L (18-29) Blood Urea Nitrogen 11mg/dL (8-27) Creatinine 0.42mg/dL (0.57-1.00) Estimat Glomerular Filtration Rate 207mL/min (>59) Glucose Level 178mg/dL (60-99) Calcium Level 8.4mg/dL (8.5-10.1) Result Diagram: 10/31/1630 10/31/16 0630 X-Rays, CTs and MRIs Abdominal CT scan reviewed and showed: Extraluminal oral contrast and free peritoneal air in the upper abdomen, consistent with viscus perforation, most likely perforated gastric or duodenal ulcer. 2. Heterogeneous enhancement of liver. There are 2 cystic masses in the inferior liver, which is new since 07/13/2016. There is an fluid fluid level within the more inferior cyst. Differential diagnosis included parasitic cysts, intrahepatic hematoma or abscess. If clinically indicated, ultrasound guided cyst aspiration could be considered. 3. A large heterogeneous mass in pelvis compatible with uterine leiomyomas. Assessment & Plan 1. Gastric perforation : Secondary to ulcers. Patient is status post surgical intervention with repair. Case discussed with surgery. Patient to be kept nothing by mouth at this for 2 days. *IV hydration with D5 normal saline at 75 mL per hour. Discontinue Ringer lactate. IV antibiotics : Zosyn . PPI drip. Further recommendations per general surgery We will order incentive spirometry with respiratory to teach 2. Severe malnutrition : Consult nutrition. 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 Patient not a good candidate for partial gastric resection due to severe malnutrition 4. Thrombocytosis : Mild. Reactive . 5. Insomnia We will go ahead and order IV Ativan 0.5 at at bedtime when necessary sleep 6. Postoperative anemia Will continue to monitor hemoglobin and would recommend transfusion if it is below 7 Clinically and hemodynamically stable. Labs in AM : CMP, cbc. Dilaudid for pain . Surgery follow up. Pain Evaluation: Adequate Pain Control GI Prophylaxis: Proton Pump Inhibitor VTE Prophylaxis: SCDs VTE Mechanical Devices: Intermittant Pneumatic CD Resuscitation Status: CPR: Attempt Resuscitation Time spent 30 minutes Mandi Jovel MD Oct 31, 2016 16:05
[2016-10-31 19:41] VITALS: BP 112/56; PULSE 72; RESP 20; O2SAT 93
[2016-11-01] MEDS: Dextrose 5% 0.9% NaCl 1,000 ML IV SCH ×3 (00:45→18:05)
[2016-11-01] MEDS: Pantoprazole Inj 80 MG in 0.9% Sodium Chloride 80 ML IV SCH ×3 (04:37→23:40)
[2016-11-01 04:55] VITALS: BP 140/76; PULSE 68; RESP 18; O2SAT 95
[2016-11-01] MEDS: Acetaminophen IV 1,000 MG in IV Premix 1 EACH IV PRN ×3 (05:20→20:55)
[2016-11-01] MEDS: Piperacillin-Tazo 3.375 Gm Inj 3.375 GM in Dextrose 5% Minibag Plus 50 ML IV SCH ×3 (05:44→21:29)
[2016-11-01 06:13] LABS: APPEARANCE,URINE CLEAR (CLEAR,HAZY); COLOR,URINE YELLOW (YELLOW); OCCULT BLOOD,URINE SMALL (NEGATIVE); PH,URINE 6.5 (5.0-8.0)
--- NOTE | 2016-11-01 06:15 | NUR ---
GI Bowel tones in all quadrants, pt reports belching but denies flatus. Strict NPO continues until eval in day. Abdominal pain controlled with IV Tylenol. Assisted to reposition frequently for skin care. Hourly rounding ongoing.
[2016-11-01 06:43] LABS: Mean Corpuscular Hemoglobin 28.3 pg (27.0-35.0); Mean Corpuscular Volume 93.5 fL (81-100); Platelet Count 436 bil/L (150-400)
[2016-11-01 07:09] LABS: BASOPHILS % (AUTO) 0 % (0-3); EOSINOPHILS % (AUTO) 0 % (0-5); MONOCYTES % (AUTO) 5 % (4-12); NEUTROPHILS % (AUTO) 88 % (40-74)
--- NOTE | 2016-11-01 08:33 | NUR ---
Pt off unit To radiology for gastrographin swallow x-ray.
--- NOTE | 2016-11-01 10:13 | PCM.PNSURG ---
Subjective Date of Service: Nov 01, 2016 Visit Information: Reason for Visit Perf Ulcer Surgery/Surgery Date LAPRASCOPIC REPAIR PERFORATED GASTRIC ULCER 10/30/16 Post-Op Day #2 Date of Admission: Oct 30, 2016 at 19:48 Hospital Day # Subjective: Pain well controlled with IV acetaminophen. Requesting a diet. No flatus or bowel movement. Has not been out of bed, unable to roll herself over independently. Denies dyspepsia or regurgitation. Postop General: No Complaints Gastrointestinal: No N/V Pain Management: Other (IV acetaminophen) Postop Activity: Other (bed rest) Objective Vital Sign- Last 8 Hours Date Time Temp Pulse Resp B/P Pulse Ox O2 Delivery O2 Flow Rate FiO2 11/01/16 09:26 Supplement Oxygen 11/01/16 04:55 36.6 68 18 140/76 95 Nasal Cannula 1.00 Intake and Output- Last 8 Hour 11/01/16 Cumulative From/Thru 07:00 10/30/16 08:45 - 11/01/16 05:44 Intake Total 1718 ml 6467 ml Output Total 440 ml 1775 ml Balance 1278 ml 4692 ml Intake Oral 0 ml 0 ml IV Total 1718 ml 6467 ml Output Urine Total 420 ml 1420 ml Drainage Total 20 ml 340 ml Estimated Blood Loss 15 ml # Bowel Movements 0 0 General: Alert, Cooperative, No Acute Distress Lungs: Clear to Auscultation Heart: Regular Rate/Rhythm Abdomen: Soft, Non-tender, Distended, Tympanic SURGICAL WOUND : Wound General Appearence: Steri Strips, Sutures, No Erythema, No Discharge, Wound under dressing Extremities: Thigh&Calf Soft/Nontender Neuro: Normal Speech Result Diagram: 11/01/1625 11/01/16 0625 Diagnostics: No extravasation on this morning's Gastrografin swallow Assessment & Plan Impression Primary diagnosis: 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 POD #2, comfortable on scheduled IV acetaminophen and IV PPI. Does not appear toxic. No extravasation on this morning's Gastrografin swallow. Suspect that she has a gastric ileus/dilatation. Other diagnoses: 1. Hemorrhagic telangiectasias. 2. Hypothyroidism status post thyroidectomy. 3. Malnutrition. 4. Uterine fibroid mass. Problems: Plan 1. Initiate clear liquid diet cautiously. 2. Avoid NG tube for now with history of hemorrhagic telangiectasia. Pain Management: IV acetaminophen VTE Prophylaxis: SCDs Resuscitation Status: CPR: Attempt Resuscitation Tano Sánchez PA-C Nov 01, 2016 10:12
--- NOTE | 2016-11-01 10:44 | NUR ---
NUTRITION FOLLOW-UP: Assess: 80 yo F admitted for acute gastric perforation. She is s/p laparoscopic repair of perforated gastric ulcer 10/30/16. Pt had gastrografin study this am which showed no signs of leakage so her diet was advanced to CL. There is concern that she has a gastric ileus/dilation. Wt at last admit was ~36kg (09/11/16). Current wts this admit have been ~46kg. Unsure of accuracy of wt changes. Pt experiences early satiety so tries to eat small/ more frequent meals. She can drink ~1 Ensure/day. Per hospitalist note, pt is to get TPN if she remains NPO more than 2 days. PMHx: Ulcerated gastroesophageal junction, Irregular gastroesophageal junction, Gastric and duodenal hereditary hemorrhagic telangiectasia, Hypothyroid, Malnutrition Uterine fibroid. LABS: Reviewed. Look Out Tower [employer] .30, Glu 129, Ca 8.1, Alb 3.1 MEDICATIONS: Reviewed. DIET: CL NUTRITION FOCUSED PHYSICAL ASSESSMENT: GI symptoms/stool: No BM recorded, no reported n/v Cosmo: 14 Skin integrity: No issues noted Overall Appearance: thin woman lying in bed - loss of LBM/ fat noted in arms, squaring in shoulders, cheek bones prominent. ANTHROPOMETRICS: Current Wt: 46.8 kg, BMI: 18.3kg/m2, Admit Wt: 43.2kg IBW: 52.3 kg, wt at previous admit (09/11/16): 36kg, UBW: 110-120 lbs (50-54.5 kg) Recent wt changes: 26% wt loss x4 months = significant (13.2 kg) ESTIMATED NEEDS: Malnutrition Calories: 4416-1800 kcal/d (25-30 kcal/kg/d IBW) Protein: 65-80 g/d (1.2-1.5 g/kg/d IBW) Fluids: 1004-5485 ml/d (1 ml/kcal/d) NUTRITION DIAGNOSIS: 1) Severe malnutrition related to chronic illness as evidenced by variable wt, recent 26% wt loss x4 months (significant), visible loss of LBM/ fat, meeting <75% of estimated energy requirements >1 month. 2) Inadequate oral intake related to altered GI function as evidence by current NPO status, early satiety, persistent wt loss. --IMPROVING INTERVENTION: 1) Recommend continue to advance diet as tolerated 2) Will add Ensure CL on L tray while she is on CL diet. Once diet advanced from CL, recommend changing to Ensure on L tray. 3) Pt received high kcal/pro education at past admits and has high kcal/pro recipe book 4) If pt remains NPO and GI is not functional or she is not able to tolerate her diet, recommend start TPN at 110g Dex, 45g AA and 20g lipids to provide 754kcal and 45g pro. Monitor labs closely. If tolerated, slowly increase macronutrients to goal of 220g dex, 75g AA and 45g lipids to provide 1500kcal and 75g pro (100% estimated needs) MONITOR/EVALUATE: diet advance/kia, GI, nutrition support? Wt, Labs, Nutrition status, POC. Will follow per high nutrition risk guidelines.
[2016-11-01] MEDS ORDERED: Sodium Chloride LOK Flush 10 mL Syringe IVFLUSH PRN ×2 (12:30)
--- NOTE | 2016-11-01 13:17 | DRSVH ---
PROCEDURE: X-RAY GASTROGRAPHIN STUDY OF ESOPHAGUS/PHARYNX ([id number]) INDICATIONS: ?leak s/p oversew of gastric ulcer COMPARISON: None. FINDINGS: Limited Gastrografin swallow demonstrates grossly normal appearance of the esophagus. There is mild esophageal dysmotility. Images of the stomach demonstrate no extravasation of contrast medium. Mary yed images also were performed demonstrating no extravasation. Small amount of thin barium was then given which also demonstrated no definite leak. The attending physician was personally present in the room during the examination. IMPRESSION: No definite perforation is visualized involving the proximal stomach where there was prev ious perforated ulcer with subsequent repair. Dictated by: Suraj BUCK Interpreted: Omar Ordaz MD on 11/01/2016 at 13:15 Transcribed by: ANDREW on 11/01/2016 at 13:16 Approved by: Omar Ordaz M.D. on 11/01/2016 at 16:22
--- NOTE | 2016-11-01 13:27 | DRSVH ---
PROCEDURE: X-RAY ABDOMEN DECUBITUS, LEFT INDICATIONS: gastric dilitation TECHNIQUE: One view of the abdomen acquired. COMPARISON: [facility], CR, XR ESOPHAGUS PHARYNX (GASTRO), 11/01/2016, 9:14. FINDINGS: Surgical changes and devices: None. Bowel: Residual contrast media seen within the stomach and a surgical drain is present. There is a m oderate amount of colonic stool throughout the colon otherwise bowel gas pattern is normal. Soft tissues: No suspicious abdominal calcifications. Visualized solid organ contours appear normal in size. Bones: No suspicious bony lesions. IMPRESSION: Residual contrast media is seen within the gastric fundus and moderate amount of colonic stool is present. Dictated by: Suraj BUCK Interpreted: Franca Peace MD on 11/01/2016 at 13:25 Transcribed by: NONA on 11/01/2016 at 13:25 Approved by: Franca Peace M.D. on 11/05/2016 at 17:24
--- NOTE | 2016-11-01 15:01 | NUR ---
Pt off unit Pt to PICC suite at 1430 for PICC line placement. Requested that PICC RN place a triple lumen catheter.
--- NOTE | 2016-11-01 15:21 | PCM.PNMED ---
Subjective Date of Service Nov 01, 2016 Subjective Patient has had very little by mouth intake and general surgery and myself are concerned regarding this. General surgery recommends PICC line with TPN. Exam Vital Signs Vital Sign - Last Date Time Temp Pulse Resp B/P Pulse Ox O2 Delivery O2 Flow Rate FiO2 11/01/16 09:26 Supplement Oxygen 11/01/16 04:55 36.6 68 18 140/76 95 1.00 Intake and Output 10/31/16 10/31/16 11/01/16 Cumulative From/Thru 14:59 22:59 06:59 10/30/16 08:45 - 11/01/16 05:44 Intake Total 1809 ml 1718 ml 6467 ml Output Total 560 ml 440 ml 1775 ml Balance 1249 ml 1278 ml 4692 ml Intake Oral 0 ml 0 ml 0 ml IV Total 1809 ml 1718 ml 6467 ml Output Urine Total 500 ml 420 ml 1420 ml Drainage Total 60 ml 20 ml 340 ml Estimated Blood Loss 15 ml # Bowel Movements 0 0 Exam Constitutional: Cachectic appearing elderly female Head: Normocephalic atraumatic Chest: Decreased breath sounds at her bases Cor: Regular rate and rhythm S1-S2 Abdomen: Soft there is diffuse tenderness dressings are in place bowel sounds are hypoactive. Extremities: No pedal edema Lab and Diagnostics Laboratory Tests 72 Hours Test 10/30/16 09:00 10/30/16 09:21 10/30/16 13:45 10/30/16 19:00 White Blood Count 12.9th/mm3 (3.8-10.1) 13.7th/mm3 (3.8-10.1) Red Blood Count 2.93mil/mm3 (3.90-5.20) 3.03mil/mm3 (3.90-5.20) Hemoglobin 8.4g/dL (12.0-15.6) 8.7g/dL (12.0-15.6) Hematocrit 27.0% (35.0-46.0) 28.0% (35.0-46.0) Mean Corpuscular Volume 92.2fL (81-100) 92.4fL (81-100) Mean Corpuscular Hemoglobin 28.7pg (27.0-35.0) 28.7pg (27.0-35.0) Mean Corpuscular Hemoglobin Concent 31.1% (32.0-37.0) 31.1% (32.0-37.0) Red Cell Distribution Width 15.4% (12.3-15.4) 15.5% (12.3-15.4) Platelet Count 538bil/L (150-400) 502bil/L (150-400) Neutrophils (%) (Auto) 84.0% (40-74) 50% (40-74) Lymphocytes (%) (Auto) 4.7% (14-46) 3% (14-46) Monocytes (%) (Auto) 10.8% (4-12) 5% (4-12) Eosinophils (%) (Auto) 0.1% (0-5) 0% (0-5) Basophils (%) (Auto) 0.2% (0-3) 0% (0-3) Prothrombin Time 9.8sec (8.1-12.5) Prothromb Time International Ratio 0.92ratio Sodium Level 135mEq/L (134-144) Potassium Level 3.9mEq/L (3.5-5.2) Chloride Level 99mEq/L (97-108) Carbon Dioxide Level 23mmol/L (18-29) Blood Urea Nitrogen 9mg/dL (8-27) Creatinine 0.35mg/dL (0.57-1.00) Estimat Glomerular Filtration Rate 255mL/min (>59) Glucose Level 106mg/dL (60-99) Calcium Level 9.0mg/dL (8.5-10.1) Magnesium Level 1.7mg/dL (1.6-2.6) Total Bilirubin 0.4mg/dL (0.0-1.2) Aspartate Amino Transf (AST/SGOT) 13U/L (0-50) Alanine Aminotransferase (ALT/SGPT) 8U/L (0-32) Alkaline Phosphatase 257U/L (25-165) Total Protein 6.1g/dL (6.4-8.4) Albumin 3.1g/dL (3.4-5.0) Lipase 20U/L (13-60) Hold [place] Top Tube Received (Received) Lactic Acid Level 1.6mmol/L (0.4-2.0) Band Neutrophils % 42% (1-5) Test 2/23/17 06:30 11/01/16 05:00 11/01/16 05:41 11/01/16 06:25 White Blood Count 16.2th/mm3 (3.8-10.1) 13.1th/mm3 (3.8-10.1) Red Blood Count 2.53mil/mm3 (3.90-5.20) 2.47mil/mm3 (3.90-5.20) Hemoglobin 7.2g/dL (12.0-15.6) 7.0g/dL (12.0-15.6) Hematocrit 23.3% (35.0-46.0) 23.1% (35.0-46.0) Mean Corpuscular Volume 92.1fL (81-100) 93.5fL (81-100) Mean Corpuscular Hemoglobin 28.5pg (27.0-35.0) 28.3pg (27.0-35.0) Mean Corpuscular Hemoglobin Concent 30.9% (32.0-37.0) 30.3% (32.0-37.0) Red Cell Distribution Width 15.3% (12.3-15.4) 15.5% (12.3-15.4) Platelet Count 447bil/L (150-400) 436bil/L (150-400) Neutrophils (%) (Auto) 83% (40-74) 88% (40-74) Lymphocytes (%) (Auto) 2% (14-46) 3% (14-46) Monocytes (%) (Auto) 6% (4-12) 5% (4-12) Eosinophils (%) (Auto) 0% (0-5) 0% (0-5) Basophils (%) (Auto) 0% (0-3) 0% (0-3) Band Neutrophils % 9% (1-5) 4% (1-5) Sodium Level 136mEq/L (134-144) 140mEq/L (134-144) Potassium Level 4.2mEq/L (3.5-5.2) 4.0mEq/L (3.5-5.2) Chloride Level 102mEq/L (97-108) 107mEq/L (97-108) Carbon Dioxide Level 23mmol/L (18-29) 23mmol/L (18-29) Blood Urea Nitrogen 11mg/dL (8-27) 8mg/dL (8-27) Creatinine 0.42mg/dL (0.57-1.00) 0.30mg/dL (0.57-1.00) Estimat Glomerular Filtration Rate 207mL/min (>59) 305mL/min (>59) Glucose Level 178mg/dL (60-99) 129mg/dL (60-99) Calcium Level 8.4mg/dL (8.5-10.1) 8.1mg/dL (8.5-10.1) Urine Color Yellow (YELLOW) Urine Appearance Clear (CLEAR,HAZY) Urine pH 6.5 (5.0-8.0) Urine Specific [place] 1.020 (1.003-1.035) Urine Protein Negativemg/dL (NEG,TRACE) Urine Glucose (UA) Negativemg/dL (NEGATIVE) Urine Ketones Negativemg/dL (NEGATIVE) Urine Occult Blood Small (NEGATIVE) Urine Nitrite Negative (NEGATIVE) Urine Bilirubin Negative (NEGATIVE) Urine Urobilinogen 2.0mg/dL (NORMAL) Urine Leukocyte Esterase Negative (NEGATIVE) Urine RBC 0-2/hpf (0-2) Urine WBC 0-5/hpf (0-5) Urine Epithelial Cells Occasional/hpf (NONE-MOD) Urine Crystals None seen (NONE SEEN) Urine Bacteria Few/hpf (NONE-FEW) Urine Hyaline Casts None/lpf (NONE) Urine Granular Casts None seen (NONE SEEN) Urine Waxy Casts None seen (NONE SEEN) Urine Red Blood Cell Casts None seen (NONE SEEN) Urine White Blood Cell Casts None seen (NONE SEEN) Urine Mucus None seen (None Seen) Urine Trichomonas None seen (NONE SEEN) Urine Yeast None (NONE SEEN) Urinalysis Comment None Urine Culture Reflexed Not indicated Hold Urine Received (Received) Hematology Comments Result Diagram: 11/01/1662411/01/16624 X-Rays, CTs and MRIs Abdominal CT scan reviewed and showed: Extraluminal oral contrast and free peritoneal air in the upper abdomen, consistent with viscus perforation, most likely perforated gastric or duodenal ulcer. 2. Heterogeneous enhancement of liver. There are 2 cystic masses in the inferior liver, which is new since 07/13/2016. There is an fluid fluid level within the more inferior cyst. Differential diagnosis included parasitic cysts, intrahepatic hematoma or abscess. If clinically indicated, ultrasound guided cyst aspiration could be considered. 3. A large heterogeneous mass in pelvis compatible with uterine leiomyomas.PROCEDURE: X-RAY GASTROGRAPHIN STUDY OF ESOPHAGUS/PHARYNX ([id number]) GASTROGRAFFIN SWALLOW INDICATIONS: ?leak s/p oversew of gastric ulcer COMPARISON: None. FINDINGS: Limited Gastrografin swallow demonstrates grossly normal appearance of the esophagus. There is mild esophageal dysmotility. Images of the stomach demonstrate no extravasation of contrast medium. Delayed images also were performed demonstrating no extravasation. Small amount of thin barium was then given which also demonstrated no definite leak. The attending physician was personally present in the room during the examination. IMPRESSION: No definite perforation is visualized involving the proximal stomach where there was previous perforated ulcer with subsequent repair. Dictated by: Suraj BUCK Interpreted: Omar Ordaz MD on 11/01/2016 at 13: 15 Transcribed by: ANDREW on 11/01/2016 at 13:16 PROCEDURE: X-RAY ABDOMEN DECUBITUS, LEFT INDICATIONS: gastric dilitation TECHNIQUE: One view of the abdomen acquired. COMPARISON: [facility], CR, XR ESOPHAGUS PHARYNX (GASTRO), 2016, 9:14. FINDINGS: Surgical changes and devices: None. Bowel: Residual contrast media seen within the stomach and a surgical drain is present. There is a moderate amount of colonic stool throughout the colon otherwise bowel gas pattern is normal. Soft tissues: No suspicious abdominal calcifications. Visualized solid organ contours appear normal in size. Bones: No suspicious bony lesions. IMPRESSION: Residual contrast media is seen within the gastric fundus and moderate amount of colonic stool is present. Dictated by: Suraj BUCK Interpreted: Franca Peace MD on 11/01/2016 at 13: 25 Transcribed by: NONA on 11/01/2016 at 13:25 Assessment & Plan 1. Gastric perforation : Secondary to ulcers. Patient is status post surgical intervention with repair. Case discussed with surgery. *IV hydration with D5 normal saline at 75 mL per hour. Discontinue Ringer lactate. IV antibiotics : Zosyn . PPI drip. Further recommendations per general surgery We will order incentive spirometry with respiratory to teach On clears but will get PICC and start TPN today. 2. Severe malnutrition : Consult nutrition. 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 Patient not a good candidate for partial gastric resection due to severe malnutrition 4. Thrombocytosis : Mild. Reactive . 5. Insomnia We will go ahead and order IV Ativan 0.5 at at bedtime when necessary sleep 6. Postoperative anemia Will continue to monitor hemoglobin and would recommend transfusion if it is below 7 Clinically and hemodynamically stable. Labs in AM : CMP, cbc. Dilaudid for pain . Surgery follow up. GI Prophylaxis: Proton Pump Inhibitor VTE Prophylaxis: SCDs VTE Mechanical Devices: Intermittant Pneumatic CD Resuscitation Status: CPR: Attempt Resuscitation Time spent 30 minutes Mandi Jovel MD Nov 01, 2016 15:21
--- NOTE | 2016-11-01 15:39 | NUR ---
Social Work Initial Assessment Attempted: SW attempted to meet with patient at bedside to conduct assessment. Patient off unit at this time for picc placement. SW to conduct assessment at a more appopriate time. SW to follow. Patient is a 80 year old female admitted on 10/30/16 for Perf ulcer. Patient payer as [employer]. Patient PCP as MD Baird. Patient resides in [facility] with Ry, . Patient on abx and surgery also following. Picc line placement for TPN. SW will continue to follow pending clinical course and discuss discharge options with family upon arrival back to unit. PLAN: Initial assessment pending TPN and clinical course. SW to follow Paulino PARRY
[2016-11-01 15:57] VITALS: BP 150/64; PULSE 88; RESP 18; O2SAT 95
--- NOTE | 2016-11-01 16:08 | DRSVH ---
PROCEDURE: X-RAY PICC LINE PLACEMENT BY NURSE ([id number]) INDICATIONS: TPN COMPARISON: None. FINDINGS: PICC was placed by the intravenous therapy team from the left side. Fluoroscopic spot rustam m demonstrates tip projected over the lower SVC. IMPRESSION: Tip of PICC projected over the lower SVC . Dictated by: Suraj BUCK Interpreted: Omar Ordaz MD on 11/01/2016 at 16:07 Transcribed by: ANDREW on 11/01/2016 at 16:08 Approved by: Omar Ordaz M.D. on 11/01/2016 at 16:24
[2016-11-01 20:35] VITALS: BP 140/72; PULSE 100; RESP 22; O2SAT 95
[2016-11-02] VITALS (7 sets, daily range): BP systolic 146–166; BP diastolic 64–76; PULSE 81–99; RESP 18–22; O2SAT 94–95
--- NOTE | 2016-11-02 00:37 | NUR ---
Nutritional Status Patient is NPO with the exception of ice chips and small sips of water. Patient is extremely thin and complains of generalized weakness. Patient has H&H of 7.0 and 23.1. Addendum: 11/02/16 at 0122 by ZACK ALTAMIRANO Patient has bowel sounds x4 quadrants. Patient's abdomen is distended and tender.
[2016-11-02] MEDS: Dextrose 5% 0.9% NaCl 1,000 ML IV SCH ×3 (02:16→18:35)
--- NOTE | 2016-11-02 06:06 | NUR ---
Pain patient complained of pain (6/10) abdominal. Abdomen is distended but patient passes gas and has bowel tones. IV Tylenol given once which was effective and pain decreased to 4/10. Patient had few ice chips and small sips of water and tolerated with no complaints of nausea or vomiting.
[2016-11-02] MEDS: Piperacillin-Tazo 3.375 Gm Inj 3.375 GM in Dextrose 5% Minibag Plus 50 ML IV SCH ×3 (06:26→21:15)
[2016-11-02 06:46] LABS: Magnesium 1.7 mg/dL (1.6-2.6); Phosphorus 1.8 mg/dL (2.5-4.9)
--- NOTE | 2016-11-02 08:16 | NUR ---
NUTRITION FOLLOW-UP: Assess: 80 yo F admitted with acute gastric perforation, s/p laparoscopic repair of perforated gastric ulcer 10/30/16. Gastrografin study yesterday showed no signs of leakage; there is concern for possible gastric ileus / dilatation. Pt. remains NPO. PICC placed yesterday, with plan to initiate TPN today. Wt at last admit was ~36kg (09/11/16). Current wts this admit have been ~46 kg. Unsure of accuracy of wt changes. Pt experiences early satiety so tries to eat small/ more frequent meals. She can drink ~1 Ensure/day. PMHx: Ulcerated gastroesophageal junction, Irregular gastroesophageal junction, Gastric and duodenal hereditary hemorrhagic telangiectasia, Hypothyroid, Malnutrition Uterine fibroid. LABS: Reviewed. BUN 5, Cr < 0.30, Glu 102, Ca 8.1,k Phos 1.8, AST 52, ALT 53, Alk Phos 266, PAB 6. MEDICATIONS: Reviewed. DIET: NPO / clear liquids x 3 D. NUTRITION FOCUSED PHYSICAL ASSESSMENT: GI symptoms/stool: No BM recorded, no reported n/v Cosmo: 14 Skin integrity: No issues noted Overall Appearance: thin woman lying in bed - loss of LBM/ fat noted in arms, squaring in shoulders, cheek bones prominent. ANTHROPOMETRICS: Current Wt: 47.0 kg, BMI: 18.0 kg/m2, Admit Wt: 43.2kg IBW: 52.3 kg, wt at previous admit (09/11/16): 36kg, UBW: 110-120 lbs (50-54.5 kg) Recent wt changes: 26% wt loss x4 months = significant (13.2 kg) ESTIMATED NEEDS: Malnutrition Calories: 8350-8589 kcal/d (25-30 kcal/kg/d IBW) Protein: 65-80 g/d (1.2-1.5 g/kg/d IBW) Fluids: 7904-2172 ml/d (1 ml/kcal/d) NUTRITION DIAGNOSIS: 1) Severe malnutrition related to chronic illness as evidenced by variable wt, recent 26% wt loss x4 months (significant), visible loss of LBM/ fat, meeting <75% of estimated energy requirements >1 month - PERSISTS. 2) Inadequate oral intake related to altered GI function as evidence by current NPO status, early satiety, persistent wt loss - PERSISTS. INTERVENTION: 1) Recommend continue to advance diet as tolerated 2) Pt received high kcal/pro education at past admits and has high kcal/pro recipe book/ 4) TPN macronutrient recommendation discussed with pharmacy as follows: 110g Dex, 45g AA and 20g lipids to provide 754kcal and 45g pro. Monitor labs closely. If tolerated, slowly increase macronutrients to goal of 220g dex, 75g AA and 45g lipids to provide 1500kcal and 75g pro (100% estimated needs). MONITOR/EVALUATE: TPN tolerance, Diet advance/kia, GI, Wt, Labs, Nutrition status, POC. Will follow per high nutrition risk guidelines.
[2016-11-02] MEDS: TPN Per Pharmacist XX SCH (08:30)
--- NOTE | 2016-11-02 08:56 | PCM.CONPHA ---
Subjective Abdominal pain . Objective Vital Signs Date Time Temp Pulse Resp B/P Pulse Ox O2 Delivery O2 Flow Rate FiO2 11/02/16 04:56 37.2 99 20 166/76 94 Nasal Cannula 2.00 11/02/16 00:50 37.1 89 20 151/65 95 Nasal Cannula 2.00 11/01/16 20:35 37.0 100 22 140/72 95 Nasal Cannula 2.00 11/01/16 20:30 Supplement Oxygen 11/01/16 16:35 Supplement Oxygen 11/01/16 15:57 36.6 88 18 150/64 95 Nasal Cannula 2.00 11/01/16 09:26 Supplement Oxygen Intake and Output 10/31/16 11/01/16 11/02/16 00:00 00:00 00:00 Intake Total 2200 ml 2549 ml 3478 ml Output Total 395 ml 940 ml 1190 ml Balance 1805 ml 1609 ml 2288 ml Weight (Kilograms): 47.000 Height (Feet): 5 Height (Inches): 3.00 Test 10/30/16 09:00 10/30/16 09:21 10/30/16 13:45 11/01/16 05:00 Prothrombin Time 9.8sec (8.1-12.5) Prothromb Time International Ratio 0.92ratio Lipase 20U/L (13-60) Hold [place] Top Tube Received (Received) Lactic Acid Level 1.6mmol/L (0.4-2.0) Urine Color Yellow (YELLOW) Urine Appearance Clear (CLEAR,HAZY) Urine pH 6.5 (5.0-8.0) Urine Specific [place] 1.020 (1.003-1.035) Urine Protein Negativemg/dL (NEG,TRACE) Urine Glucose (UA) Negativemg/dL (NEGATIVE) Urine Ketones Negativemg/dL (NEGATIVE) Urine Occult Blood Small (NEGATIVE) Urine Nitrite Negative (NEGATIVE) Urine Bilirubin Negative (NEGATIVE) Urine Urobilinogen 2.0mg/dL (NORMAL) Urine Leukocyte Esterase Negative (NEGATIVE) Urine RBC 0-2/hpf (0-2) Urine WBC 0-5/hpf (0-5) Urine Epithelial Cells Occasional/hpf (NONE-MOD) Urine Crystals None seen (NONE SEEN) Urine Bacteria Few/hpf (NONE-FEW) Urine Hyaline Casts None/lpf (NONE) Urine Granular Casts None seen (NONE SEEN) Urine Waxy Casts None seen (NONE SEEN) Urine Red Blood Cell Casts None seen (NONE SEEN) Urine White Blood Cell Casts None seen (NONE SEEN) Urine Mucus None seen (None Seen) Urine Trichomonas None seen (NONE SEEN) Urine Yeast None (NONE SEEN) Urinalysis Comment None Urine Culture Reflexed Not indicated Test 11/01/16 05:41 11/01/16 06:25 11/02/16 05:30 Hold Urine Received (Received) White Blood Count 13.1th/mm3 (3.8-10.1) Red Blood Count 2.47mil/mm3 (3.90-5.20) Hemoglobin 7.0g/dL (12.0-15.6) Hematocrit 23.1% (35.0-46.0) Mean Corpuscular Volume 93.5fL (81-100) Mean Corpuscular Hemoglobin 28.3pg (27.0-35.0) Mean Corpuscular Hemoglobin Concent 30.3% (32.0-37.0) Red Cell Distribution Width 15.5% (12.3-15.4) Platelet Count 436bil/L (150-400) Neutrophils (%) (Auto) 88% (40-74) Lymphocytes (%) (Auto) 3% (14-46) Monocytes (%) (Auto) 5% (4-12) Eosinophils (%) (Auto) 0% (0-5) Basophils (%) (Auto) 0% (0-3) Band Neutrophils % 4% (1-5) Hematology Comments Sodium Level 136mEq/L (134-144) Potassium Level 3.7mEq/L (3.5-5.2) Chloride Level 104mEq/L (97-108) Carbon Dioxide Level 23mmol/L (18-29) Blood Urea Nitrogen 5mg/dL (8-27) Creatinine < 0.30mg/dL (0.57-1.00) Estimat Glomerular Filtration Rate mL/min (>59) Glucose Level 102mg/dL (60-99) Calcium Level 8.1mg/dL (8.5-10.1) Phosphorus Level 1.8mg/dL (2.5-4.9) Magnesium Level 1.7mg/dL (1.6-2.6) Total Bilirubin 0.4mg/dL (0.0-1.2) Aspartate Amino Transf (AST/SGOT) 52U/L (0-50) Alanine Aminotransferase (ALT/SGPT) 53U/L (0-32) Alkaline Phosphatase 266U/L (25-165) Total Protein 4.4g/dL (6.4-8.4) Albumin 2.3g/dL (3.4-5.0) Prealbumin 6mg/dL (20-40) Assessment/Plan Assessment/Plan PARENTERAL NUTRITION ORDERS 1 - Standard Hang Time: 2100 Substrates Total kcal: 754 AMINO ACIDS 45 g DEXTROSE 110 g Total Volume (mL): 1000 LIPIDS 20 g Sterile Water for Injection QS mL To Infuse Over (hrs): 24 Total Volume 1000 mL At at a rate of (mL/hr): 42 Additives Sodium Chloride 100 mEq "typical" daily requirements Sodium Acetate 0 mEq Sodium 50-120mEq Potassium Chloride 20 mEq Potassium 60-120mEq Potassium Phosphate 20 mEq Phosphate 20-40mEq Calcium Gluconate 8 mEq Magnesium 8-32mEq Magnesium Sulfate 13 mEq Calcium 9-22mEq Acetate* 80-120mEq Chloride* 80-120mEq Regular Insulin units *Depending on acid-base status Famotidine 20 mg Multivitamins 1 std dose Insulin Regimen Trace Elements 1 std dose none Thiamine 100 mg Regular Low Intensity Subcut Folic Acid 1 mg Regular Medium Intensity Subcut Ascorbic Acid 0 mg Regular High Intensity Subcut Regular Insulin Infusion Other: Special Instructions: To be infused via central line only. For delay or inturruption of TPN contact the pharmacist for alternative replacement solution. Signature Date: Niesha Ford [address] [facility] Ramírez Tirado Nov 02, 2016 08:56
--- NOTE | 2016-11-02 09:43 | PCM.PNSURG ---
Subjective Visit Information: Reason for Visit Perf Ulcer Surgery/Surgery Date LAPRASCOPIC REPAIR PERFORATED GASTRIC ULCER 10/30/16 Post-Op Day # Date of Admission: Oct 30, 2016 at 19:48 Hospital Day # Subjective: no real appetite, some abd discomfort, passed flatus, no leak on swallow xray yesterday Objective Objective Awake in bed Abd: mild distention, JOSH in place, incisions clean Vital Sign- Last 8 Hours Date Time Temp Pulse Resp B/P Pulse Ox O2 Delivery O2 Flow Rate FiO2 11/02/16 04:56 37.2 99 20 166/76 94 Nasal Cannula 2.00 Intake and Output- Last 8 Hour 11/02/16 Cumulative From/Thru 07:00 10/30/16 08:45 - 11/02/16 06:17 Intake Total 1621 ml 9848 ml Output Total 2525 ml Balance 1621 ml 7323 ml Intake Oral 50 ml IV Total 1621 ml 9798 ml Output Urine Total 2170 ml Drainage Total 340 ml Estimated Blood Loss 15 ml # Bowel Movements 0 Result Diagram: 11/01/16 0625 11/02/16 0530 Assessment & Plan Impression POD #3 s/p repair of gastric perf Problems: Plan Clear liquids (but took in insufficient calories) Continue TPN Pain control Ambulate Will stop IV abx tomorrow if WBC normal VTE Prophylaxis: SCDs Resuscitation Status: CPR: Attempt Resuscitation Juan Tejeda MD Nov 02, 2016 09:43
--- NOTE | 2016-11-02 09:46 | DRSVH ---
PROCEDURE: X-RAY ABDOMEN WITH ERECT AND/OR DECUBITUS VIEWS ([id number]) INDICATIONS: ileus TECHNIQUE: 2 views of the abdomen were acquired. COMPARISON: [facility], CT, CT ABD PELVIS W CON, 10/30/2016, 12:32. [facility], CR, XR ABD DECUBITUS LT, 11/01/2016, 11:02. FINDINGS: Surgical changes and devices: A surgical drain crosses the midline from right to left, terminating in the left upper quadrant region. Oral contrast from prior CT scanning has reached the colon. Bowel: No pneumoperitoneum. The bowel gas pattern is nonspecific, but there is a small prominence o f gas within the small bowel which can be related to presence of small bowel ileus. The appearance d oes not raise concern for obstruction. Soft tissues: No masses; visualized solid organ contours appear normal in size. No suspicious abdom inal calcifications. Bones: No suspicious bony abnormalities. IMPRESSION: No free air seen. Oral contrast from prior CT scanning 10/30/16 has progressed into the c olon. Surgical drain in expected position over the upper abdomen. Mild ileus pattern. No obstructi on suspected. Dictated by: Omar Ordaz M.D. on 11/02/2016 at 9:43 Approved by: Omar Ordaz M.D. on 11/02/2016 at 9:45
[2016-11-02] MEDS: Pantoprazole Inj 80 MG in 0.9% Sodium Chloride 80 ML IV SCH ×2 (10:59→17:09)
--- NOTE | 2016-11-02 11:07 | NUR ---
FERDINAND signed. Sonal Shah [employer]
--- NOTE | 2016-11-02 11:25 | NUR ---
GI Pt c/o constipation this a.m., and this is part of her history as well. Sent Cook page to hospitalist to request stool softener and laxative. Awaiting new orders or information from physician. Care continues.
[2016-11-02] MEDS: 0.9% Sodium Chloride 250 ML IV SCH (15:30)
--- NOTE | 2016-11-02 15:33 | PCM.PNMED ---
Subjective Date of Service Nov 02, 2016 Subjective Patient feeling fatigued and has been able to take a little bit of fluid down. Had a PICC line placed yesterday. To start TPN this evening. Exam Vital Signs Vital Sign - Last Date Time Temp Pulse Resp B/P Pulse Ox O2 Delivery O2 Flow Rate FiO2 11/02/16 04:56 37.2 99 20 166/76 94 Nasal Cannula 2.00 Intake and Output 11/01/16 11/01/16 11/02/16 Cumulative From/Thru 14:59 22:59 06:59 10/30/16 08:45 - 11/02/16 06:17 Intake Total 55 ml 1705 ml 1621 ml 9848 ml Output Total 750 ml 2525 ml Balance 55 ml 955 ml 1621 ml 7323 ml Intake Oral 50 ml 50 ml IV Total 55 ml 1655 ml 1621 ml 9798 ml Output Urine Total 750 ml 2170 ml Drainage Total 0 ml 340 ml Estimated Blood Loss 15 ml # Bowel Movements 0 0 Exam Constitutional: Elderly woman in no acute distress Head: Normocephalic atraumatic Chest: Clear to auscultation Cor: Regular rate and rhythm S1-S2 without murmur Abdomen: Soft mild diffuse tenderness no rebound no guarding bowel sounds present Extremities: No pedal edema Lab and Diagnostics Laboratory Tests 72 Hours Test 10/30/16 19:00 10/31/16 06:30 11/01/16 05:00 11/01/16 05:41 White Blood Count 13.7th/mm3 (3.8-10.1) 16.2th/mm3 (3.8-10.1) Red Blood Count 3.03mil/mm3 (3.90-5.20) 2.53mil/mm3 (3.90-5.20) Hemoglobin 8.7g/dL (12.0-15.6) 7.2g/dL (12.0-15.6) Hematocrit 28.0% (35.0-46.0) 23.3% (35.0-46.0) Mean Corpuscular Volume 92.4fL (81-100) 92.1fL (81-100) Mean Corpuscular Hemoglobin 28.7pg (27.0-35.0) 28.5pg (27.0-35.0) Mean Corpuscular Hemoglobin Concent 31.1% (32.0-37.0) 30.9% (32.0-37.0) Red Cell Distribution Width 15.5% (12.3-15.4) 15.3% (12.3-15.4) Platelet Count 502bil/L (150-400) 447bil/L (150-400) Neutrophils (%) (Auto) 50% (40-74) 83% (40-74) Lymphocytes (%) (Auto) 3% (14-46) 2% (14-46) Monocytes (%) (Auto) 5% (4-12) 6% (4-12) Eosinophils (%) (Auto) 0% (0-5) 0% (0-5) Basophils (%) (Auto) 0% (0-3) 0% (0-3) Band Neutrophils % 42% (1-5) 9% (1-5) Sodium Level 136mEq/L (134-144) Potassium Level 4.2mEq/L (3.5-5.2) Chloride Level 102mEq/L (97-108) Carbon Dioxide Level 23mmol/L (18-29) Blood Urea Nitrogen 11mg/dL (8-27) Creatinine 0.42mg/dL (0.57-1.00) Estimat Glomerular Filtration Rate 207mL/min (>59) Glucose Level 178mg/dL (60-99) Calcium Level 8.4mg/dL (8.5-10.1) Urine Color Yellow (YELLOW) Urine Appearance Clear (CLEAR,HAZY) Urine pH 6.5 (5.0-8.0) Urine Specific [place] 1.020 (1.003-1.035) Urine Protein Negativemg/dL (NEG,TRACE) Urine Glucose (UA) Negativemg/dL (NEGATIVE) Urine Ketones Negativemg/dL (NEGATIVE) Urine Occult Blood Small (NEGATIVE) Urine Nitrite Negative (NEGATIVE) Urine Bilirubin Negative (NEGATIVE) Urine Urobilinogen 2.0mg/dL (NORMAL) Urine Leukocyte Esterase Negative (NEGATIVE) Urine RBC 0-2/hpf (0-2) Urine WBC 0-5/hpf (0-5) Urine Epithelial Cells Occasional/hpf (NONE-MOD) Urine Crystals None seen (NONE SEEN) Urine Bacteria Few/hpf (NONE-FEW) Urine Hyaline Casts None/lpf (NONE) Urine Granular Casts None seen (NONE SEEN) Urine Waxy Casts None seen (NONE SEEN) Urine Red Blood Cell Casts None seen (NONE SEEN) Urine White Blood Cell Casts None seen (NONE SEEN) Urine Mucus None seen (None Seen) Urine Trichomonas None seen (NONE SEEN) Urine Yeast None (NONE SEEN) Urinalysis Comment None Urine Culture Reflexed Not indicated Hold Urine Received (Received) Test 11/01/16 06:25 11/02/16 05:30 White Blood Count 13.1th/mm3 (3.8-10.1) Red Blood Count 2.47mil/mm3 (3.90-5.20) Hemoglobin 7.0g/dL (12.0-15.6) Hematocrit 23.1% (35.0-46.0) Mean Corpuscular Volume 93.5fL (81-100) Mean Corpuscular Hemoglobin 28.3pg (27.0-35.0) Mean Corpuscular Hemoglobin Concent 30.3% (32.0-37.0) Red Cell Distribution Width 15.5% (12.3-15.4) Platelet Count 436bil/L (150-400) Neutrophils (%) (Auto) 88% (40-74) Lymphocytes (%) (Auto) 3% (14-46) Monocytes (%) (Auto) 5% (4-12) Eosinophils (%) (Auto) 0% (0-5) Basophils (%) (Auto) 0% (0-3) Band Neutrophils % 4% (1-5) Hematology Comments Sodium Level 140mEq/L (134-144) 136mEq/L (134-144) Potassium Level 4.0mEq/L (3.5-5.2) 3.7mEq/L (3.5-5.2) Chloride Level 107mEq/L (97-108) 104mEq/L (97-108) Carbon Dioxide Level 23mmol/L (18-29) 23mmol/L (18-29) Blood Urea Nitrogen 8mg/dL (8-27) 5mg/dL (8-27) Creatinine 0.30mg/dL (0.57-1.00) < 0.30mg/dL (0.57-1.00) Estimat Glomerular Filtration Rate 305mL/min (>59) mL/min (>59) Glucose Level 129mg/dL (60-99) 102mg/dL (60-99) Calcium Level 8.1mg/dL (8.5-10.1) 8.1mg/dL (8.5-10.1) Phosphorus Level 1.8mg/dL (2.5-4.9) Magnesium Level 1.7mg/dL (1.6-2.6) Total Bilirubin 0.4mg/dL (0.0-1.2) Aspartate Amino Transf (AST/SGOT) 52U/L (0-50) Alanine Aminotransferase (ALT/SGPT) 53U/L (0-32) Alkaline Phosphatase 266U/L (25-165) Total Protein 4.4g/dL (6.4-8.4) Albumin 2.3g/dL (3.4-5.0) Prealbumin 6mg/dL (20-40) Result Diagram: 11/01/16 0625 11/02/16 0530 X-Rays, CTs and MRIs Abdominal CT scan reviewed and showed: Extraluminal oral contrast and free peritoneal air in the upper abdomen, consistent with viscus perforation, most likely perforated gastric or duodenal ulcer. 2. Heterogeneous enhancement of liver. There are 2 cystic masses in the inferior liver, which is new since 07/13/2016. There is an fluid fluid level within the more inferior cyst. Differential diagnosis included parasitic cysts, intrahepatic hematoma or abscess. If clinically indicated, ultrasound guided cyst aspiration could be considered. 3. A large heterogeneous mass in pelvis compatible with uterine leiomyomas.PROCEDURE: X-RAY GASTROGRAPHIN STUDY OF ESOPHAGUS/PHARYNX ([id number]) GASTROGRAFFIN SWALLOW INDICATIONS: ?leak s/p oversew of gastric ulcer COMPARISON: None. FINDINGS: Limited Gastrografin swallow demonstrates grossly normal appearance of the esophagus. There is mild esophageal dysmotility. Images of the stomach demonstrate no extravasation of contrast medium. Delayed images also were performed demonstrating no extravasation. Small amount of thin barium was then given which also demonstrated no definite leak. The attending physician was personally present in the room during the examination. IMPRESSION: No definite perforation is visualized involving the proximal stomach where there was previous perforated ulcer with subsequent repair. Dictated by: Suraj BUCK Interpreted: Omar Ordaz MD on 11/01/2016 at 13: 15 Transcribed by: ANDREW on 11/01/2016 at 13:16 PROCEDURE: X-RAY ABDOMEN DECUBITUS, LEFT INDICATIONS: gastric dilitation TECHNIQUE: One view of the abdomen acquired. COMPARISON: [facility], CR, XR ESOPHAGUS PHARYNX (GASTRO), 2016, 9:14. FINDINGS: Surgical changes and devices: None. Bowel: Residual contrast media seen within the stomach and a surgical drain is present. There is a moderate amount of colonic stool throughout the colon otherwise bowel gas pattern is normal. Soft tissues: No suspicious abdominal calcifications. Visualized solid organ contours appear normal in size. Bones: No suspicious bony lesions. IMPRESSION: Residual contrast media is seen within the gastric fundus and moderate amount of colonic stool is present. Dictated by: Suraj BUCK Interpreted: Franca Peace MD on 11/01/2016 at 13: 25 Transcribed by: NONA on 11/01/2016 at 13:25 Assessment & Plan 1. Gastric perforation : Secondary to ulcers. Patient is status post surgical intervention with repair. Case discussed with surgery. *IV hydration with D5 normal saline at 75 mL per hour. Discontinue Ringer lactate. IV antibiotics : Zosyn . PPI drip. Further recommendations per general surgery We will order incentive spirometry with respiratory to teach On clears but will get PICC start TPN today. 2. Severe malnutrition : Consult nutrition. 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 Patient not a good candidate for partial gastric resection due to severe malnutrition 4. Thrombocytosis : Mild. Reactive . 5. Insomnia We will go ahead and order IV Ativan 0.5 at at bedtime when necessary sleep 6. Postoperative anemia Will continue to monitor hemoglobin and would recommend transfusion if it is below 7 We will proceed today with transfusing 1 unit of PRBCs given that hemoglobin is 7.0 Clinically and hemodynamically stable. Labs in AM : CMP, cbc. Dilaudid for pain . Surgery follow up. GI Prophylaxis: Proton Pump Inhibitor VTE Prophylaxis: SCDs VTE Mechanical Devices: Intermittant Pneumatic CD Resuscitation Status: CPR: Attempt Resuscitation Time spent 30 minutes Mandi Jovel MD Nov 02, 2016 15:33
--- NOTE | 2016-11-02 15:48 | NUR ---
Social Work- Initial Assessment Data: See Initial Assessment. Pt is a 80 year old female admitted 10/30/16 for a perforated ulcer per H&P. Pt's insurance is [employer] and PCP is Macy Baird MD. EMR reviewed. SW met with patient at bedside to discuss discharge planning, SW role explained. Pt alert and oriented x3. Pt resides at home in [place] with her where she remains independent with her ADLs. Pt uses no DME and drives. Pt has no HH or SNF history. SW educated patient about DPOA/Advance Directive and encouraged her to bring a completed form to hospital. SW provided phone number and plan on whiteboard. Pt is currently on TPN. Unclear if pt will need this at discharge. SW continue to follow for any HH or infusion needs. Pt to discharge home with daughter Lina Ayala to transport via POV. SW continues to follow. Assessment: Pt who is independent at base, who may require HH or Infusion. Plan: Pt is currently on TPN. Unclear if pt will need this at discharge. SW to follow for any HH or Infusion needs. Pt to discharge home with daughter to transport via POV. SW continue to follow. SOHAN Awad Addendum: 11/02/16 at 1555 by AB KEMP Amended: Links added.
[2016-11-02] MEDS ORDERED: Acetaminophen IV 1,000 MG in IV Premix 1 EACH IV PRN (18:35)
[2016-11-02] MEDS: Total Parenteral Nutrition 1 BAG IV SCH (21:30)
--- NOTE | 2016-11-02 22:20 | NUR ---
Circulation: During assessment noticed that patient's left foot was significantly colder to touch than right foot. Left foot dorsalis pedis pulse point was markedly weaker than right foot. Right foot had strong dorsalis pedis pulse and warm to the touch. P Patient denied any pain in calves. Patient reported that she had sensation in both feet and was able to move toes and feet when asked to do so. Tucked patient's feet into blankets and will assess again later in shift.
[2016-11-03 00:27] VITALS: BP 141/72; PULSE 89; RESP 18
[2016-11-03] MEDS: Dextrose 5% 0.9% NaCl 1,000 ML IV SCH ×3 (00:55→17:35)
[2016-11-03] MEDS: Pantoprazole Inj 80 MG in 0.9% Sodium Chloride 80 ML IV SCH ×3 (03:35→21:31)
--- NOTE | 2016-11-03 04:31 | NUR ---
Nutritional Status: Patient started TPN @ 2100. Patient took 3 hours to eat small cup of jello. Patient's appetite is not strong. Advanced to clear liquid diet.
[2016-11-03 05:07] VITALS: BP 155/57; PULSE 88; RESP 20; O2SAT 94
[2016-11-03] MEDS: Piperacillin-Tazo 3.375 Gm Inj 3.375 GM in Dextrose 5% Minibag Plus 50 ML IV SCH (05:39)
[2016-11-03 06:13] LABS: BASOPHILS % (AUTO) 0.4 % (0-3); EOSINOPHILS % (AUTO) 2.1 % (0-5); MONOCYTES % (AUTO) 14.6 % (4-12); Mean Corpuscular Hemoglobin 28.5 pg (27.0-35.0); Mean Corpuscular Volume 90.5 fL (81-100); NEUTROPHILS % (AUTO) 72.8 % (40-74); Platelet Count 418 bil/L (150-400)
[2016-11-03 06:36] LABS: Magnesium 1.7 mg/dL (1.6-2.6); Phosphorus 2.3 mg/dL (2.5-4.9)
[2016-11-03] MEDS: TPN Per Pharmacist XX SCH (09:17)
--- NOTE | 2016-11-03 09:35 | PCM.PHAPRO ---
Progress Abdominal pain . TPN #2 PARENTERAL NUTRITION ORDERS 2 03-Nov-16 Standard Hang Time: 2100 Substrates Total kcal: 1170 AMINO ACIDS 60 g DEXTROSE 200 g Total Volume (mL): 1250 LIPIDS 25 g Sterile Water for Injection QS mL To Infuse Over (hrs): 24 Total Volume 1250 mL At at a rate of (mL/hr): 52 Additives Sodium Chloride 60 mEq "typical" daily requirements Sodium Acetate 20 mEq Sodium 50-120mEq Potassium Chloride 30 mEq Potassium 60-120mEq Potassium Phosphate 30 mEq Phosphate 20-40mEq Calcium Gluconate 8 mEq Magnesium 8-32mEq Magnesium Sulfate 13 mEq Calcium 9-22mEq Acetate* 80-120mEq Chloride* 80-120mEq Regular Insulin units *Depending on acid-base status Famotidine 40 mg Multivitamins 1 std dose Insulin Regimen Trace Elements 1 std dose none Thiamine mg Regular Low Intensity Subcut Folic Acid mg Regular Medium Intensity Subcut Ascorbic Acid 0 mg Regular High Intensity Subcut Regular Insulin Infusion Other: Special Instructions: To be infused via central line only. For delay or inturruption of TPN contact the pharmacist for alternative replacement solution. Andre Montelongo S Pharm D Nov 03, 2016 09:35 Mariely Ordaz PharmD Nov 03, 2016 15:38
--- NOTE | 2016-11-03 10:26 | PCM.PNSURG ---
Subjective Visit Information: Reason for Visit Perf Ulcer Surgery/Surgery Date LAPRASCOPIC REPAIR PERFORATED GASTRIC ULCER 10/30/16 Post-Op Day # Date of Admission: Oct 30, 2016 at 19:48 Hospital Day # Subjective: got blood transfusion yesterday, feels better today, passing flatus, wants more to eat, still has burton in place Objective Objective awake in bed Abd: soft, JOSH --> serous fluid Vital Sign- Last 8 Hours Date Time Temp Pulse Resp B/P Pulse Ox O2 Delivery O2 Flow Rate FiO2 11/03/16 05:07 36.3 88 20 155/57 94 Nasal Cannula 2.00 Intake and Output- Last 8 Hour 11/03/16 Cumulative From/Thru 07:00 10/30/16 08:45 - 11/03/16 06:12 Intake Total 3345 ml 75921 ml Output Total 2110 ml 6750 ml Balance 1235 ml 7160 ml Intake Oral 520 ml 970 ml IV Total 2526 ml 88262 ml TPN/PPN 299 ml 299 ml Packed Cells 260 ml Output Urine Total 2100 ml 6370 ml Drainage Total 10 ml 365 ml Estimated Blood Loss 15 ml # Bowel Movements 0 Result Diagram: 11/03/16 0600 11/03/16 0600 Assessment & Plan Impression POD #4 s/p repair of gastric perf WBC 5.7 today Problems: Plan Stop IV abx Advance to full liquid Continue TPN Remove JOSH drain today Maybe remove burton tomorrow Plan per hospitalist VTE Prophylaxis: SCDs Resuscitation Status: CPR: Attempt Resuscitation Juan Tejeda MD Nov 03, 2016 10:26
[2016-11-03] MEDS: 0.9% Sodium Chloride 250 ML IV SCH (11:59)
--- NOTE | 2016-11-03 14:47 | PCM.PNMED ---
Subjective Date of Service Nov 03, 2016 Subjective Patient has been started on Enlive nutritional supplement by general surgery she has tolerated that so far. She has started with TPN last night. She did get 1 unit of PRBC transfusion yesterday. Exam Vital Signs Vital Sign - Last Date Time Temp Pulse Resp B/P Pulse Ox O2 Delivery O2 Flow Rate FiO2 11/03/16 05:07 36.3 88 20 155/57 94 Nasal Cannula 2.00 Intake and Output 11/02/16 11/02/16 11/03/16 Cumulative From/Thru 14:59 22:59 06:59 10/30/16 08:45 - 11/03/16 06:12 Intake Total 0 ml 717 ml 3345 ml 12180 ml Output Total 1215 ml 900 ml 2110 ml 6750 ml Balance -1215 ml -183 ml 1235 ml 7160 ml Intake Oral 0 ml 400 ml 520 ml 970 ml IV Total 57 ml 2526 ml 48389 ml TPN/PPN 299 ml 299 ml Packed Cells 260 ml 260 ml Output Urine Total 1200 ml 900 ml 2100 ml 6370 ml Drainage Total 15 ml 0 ml 10 ml 365 ml Estimated Blood Loss 15 ml # Bowel Movements 0 0 Exam Constitutional: We will put more energetic today cachectic female Head: Normocephalic management Chest: Clear to auscultation Cor: Regular rate and rhythm S1-S2 Abdomen: Soft there is mild diffuse tenderness no rebound or guarding bowel sounds present Extremities: No pedal edema Neuro: Alert and oriented 3, motor strength is intact bilaterally Lab and Diagnostics Laboratory Tests 72 Hours Test 11/01/16 05:00 11/01/16 05:41 11/01/16 06:25 11/02/16 05:30 Urine Color Yellow (YELLOW) Urine Appearance Clear (CLEAR,HAZY) Urine pH 6.5 (5.0-8.0) Urine Specific Girard 1.020 (1.003-1.035) Urine Protein Negativemg/dL (NEG,TRACE) Urine Glucose (UA) Negativemg/dL (NEGATIVE) Urine Ketones Negativemg/dL (NEGATIVE) Urine Occult Blood Small (NEGATIVE) Urine Nitrite Negative (NEGATIVE) Urine Bilirubin Negative (NEGATIVE) Urine Urobilinogen 2.0mg/dL (NORMAL) Urine Leukocyte Esterase Negative (NEGATIVE) Urine RBC 0-2/hpf (0-2) Urine WBC 0-5/hpf (0-5) Urine Epithelial Cells Occasional/hpf (NONE-MOD) Urine Crystals None seen (NONE SEEN) Urine Bacteria Few/hpf (NONE-FEW) Urine Hyaline Casts None/lpf (NONE) Urine Granular Casts None seen (NONE SEEN) Urine Waxy Casts None seen (NONE SEEN) Urine Red Blood Cell Casts None seen (NONE SEEN) Urine White Blood Cell Casts None seen (NONE SEEN) Urine Mucus None seen (None Seen) Urine Trichomonas None seen (NONE SEEN) Urine Yeast None (NONE SEEN) Urinalysis Comment None Urine Culture Reflexed Not indicated Hold Urine Received (Received) White Blood Count 13.1th/mm3 (3.8-10.1) Red Blood Count 2.47mil/mm3 (3.90-5.20) Hemoglobin 7.0g/dL (12.0-15.6) Hematocrit 23.1% (35.0-46.0) Mean Corpuscular Volume 93.5fL (81-100) Mean Corpuscular Hemoglobin 28.3pg (27.0-35.0) Mean Corpuscular Hemoglobin Concent 30.3% (32.0-37.0) Red Cell Distribution Width 15.5% (12.3-15.4) Platelet Count 436bil/L (150-400) Neutrophils (%) (Auto) 88% (40-74) Lymphocytes (%) (Auto) 3% (14-46) Monocytes (%) (Auto) 5% (4-12) Eosinophils (%) (Auto) 0% (0-5) Basophils (%) (Auto) 0% (0-3) Band Neutrophils % 4% (1-5) Hematology Comments Sodium Level 140mEq/L (134-144) 136mEq/L (134-144) Potassium Level 4.0mEq/L (3.5-5.2) 3.7mEq/L (3.5-5.2) Chloride Level 107mEq/L (97-108) 104mEq/L (97-108) Carbon Dioxide Level 23mmol/L (18-29) 23mmol/L (18-29) Blood Urea Nitrogen 8mg/dL (8-27) 5mg/dL (8-27) Creatinine 0.30mg/dL (0.57-1.00) < 0.30mg/dL (0.57-1.00) Estimat Glomerular Filtration Rate 305mL/min (>59) mL/min (>59) Glucose Level 129mg/dL (60-99) 102mg/dL (60-99) Calcium Level 8.1mg/dL (8.5-10.1) 8.1mg/dL (8.5-10.1) Phosphorus Level 1.8mg/dL (2.5-4.9) Magnesium Level 1.7mg/dL (1.6-2.6) Total Bilirubin 0.4mg/dL (0.0-1.2) Aspartate Amino Transf (AST/SGOT) 52U/L (0-50) Alanine Aminotransferase (ALT/SGPT) 53U/L (0-32) Alkaline Phosphatase 266U/L (25-165) Total Protein 4.4g/dL (6.4-8.4) Albumin 2.3g/dL (3.4-5.0) Prealbumin 6mg/dL (20-40) Test 11/03/16 06:00 White Blood Count 5.7th/mm3 (3.8-10.1) Red Blood Count 2.84mil/mm3 (3.90-5.20) Hemoglobin 8.1g/dL (12.0-15.6) Hematocrit 25.7% (35.0-46.0) Mean Corpuscular Volume 90.5fL (81-100) Mean Corpuscular Hemoglobin 28.5pg (27.0-35.0) Mean Corpuscular Hemoglobin Concent 31.5% (32.0-37.0) Red Cell Distribution Width 15.1% (12.3-15.4) Platelet Count 418bil/L (150-400) Neutrophils (%) (Auto) 72.8% (40-74) Lymphocytes (%) (Auto) 9.7% (14-46) Monocytes (%) (Auto) 14.6% (4-12) Eosinophils (%) (Auto) 2.1% (0-5) Basophils (%) (Auto) 0.4% (0-3) Sodium Level 140mEq/L (134-144) Potassium Level 3.5mEq/L (3.5-5.2) Chloride Level 106mEq/L (97-108) Carbon Dioxide Level 26mmol/L (18-29) Blood Urea Nitrogen 5mg/dL (8-27) Creatinine < 0.30mg/dL (0.57-1.00) Estimat Glomerular Filtration Rate mL/min (>59) Glucose Level 107mg/dL (60-99) Calcium Level 8.1mg/dL (8.5-10.1) Phosphorus Level 2.3mg/dL (2.5-4.9) Magnesium Level 1.7mg/dL (1.6-2.6) Result Diagram: 11/03/16 0600 11/03/16 0600 X-Rays, CTs and MRIs Abdominal CT scan reviewed and showed: Extraluminal oral contrast and free peritoneal air in the upper abdomen, consistent with viscus perforation, most likely perforated gastric or duodenal ulcer. 2. Heterogeneous enhancement of liver. There are 2 cystic masses in the inferior liver, which is new since 07/13/2016. There is an fluid fluid level within the more inferior cyst. Differential diagnosis included parasitic cysts, intrahepatic hematoma or abscess. If clinically indicated, ultrasound guided cyst aspiration could be considered. 3. A large heterogeneous mass in pelvis compatible with uterine leiomyomas.PROCEDURE: X-RAY GASTROGRAPHIN STUDY OF ESOPHAGUS/PHARYNX ([id number]) GASTROGRAFFIN SWALLOW INDICATIONS: ?leak s/p oversew of gastric ulcer COMPARISON: None. FINDINGS: Limited Gastrografin swallow demonstrates grossly normal appearance of the esophagus. There is mild esophageal dysmotility. Images of the stomach demonstrate no extravasation of contrast medium. Delayed images also were performed demonstrating no extravasation. Small amount of thin barium was then given which also demonstrated no definite leak. The attending physician was personally present in the room during the examination. IMPRESSION: No definite perforation is visualized involving the proximal stomach where there was previous perforated ulcer with subsequent repair. Dictated by: Suraj Potter RRA Interpreted: Omar Ordaz MD on 11/01/2016 at 13: 15 Transcribed by: ANDREW on 11/01/2016 at 13:16 PROCEDURE: X-RAY ABDOMEN DECUBITUS, LEFT INDICATIONS: gastric dilitation TECHNIQUE: One view of the abdomen acquired. COMPARISON: [facility], CR, XR ESOPHAGUS PHARYNX (GASTRO), 2016, 9:14. FINDINGS: Surgical changes and devices: None. Bowel: Residual contrast media seen within the stomach and a surgical drain is present. There is a moderate amount of colonic stool throughout the colon otherwise bowel gas pattern is normal. Soft tissues: No suspicious abdominal calcifications. Visualized solid organ contours appear normal in size. Bones: No suspicious bony lesions. IMPRESSION: Residual contrast media is seen within the gastric fundus and moderate amount of colonic stool is present. Dictated by: Suraj Potter RRJessica Interpreted: Franca Peace MD on 11/01/2016 at 13: 25 Transcribed by: NONA on 11/01/2016 at 13:25 Assessment & Plan 1. Gastric perforation : Secondary to ulcers. Patient is status post surgical intervention with repair. Case discussed with surgery. *IV hydration with D5 normal saline at 75 mL per hour. Discontinue Ringer lactate. IV antibiotics : Zosyn . PPI drip. Further recommendations per general surgery We will order incentive spirometry with respiratory to teach On clears but will get PICC start TPN today. 2. Severe malnutrition : Consult nutrition. 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 Patient not a good candidate for partial gastric resection due to severe malnutrition 4. Thrombocytosis : Mild. Reactive . 5. Insomnia We will go ahead and order IV Ativan 0.5 at at bedtime when necessary sleep 6. Postoperative anemia Will continue to monitor hemoglobin and would recommend transfusion if it is below 7 Patient received 1 unit of PRBCs yesterday. Hemoglobin today is 8.1 up from 7.0. Clinically and hemodynamically stable. Labs in AM : CMP, cbc. Dilaudid for pain . Surgery follow up. GI Prophylaxis: Proton Pump Inhibitor VTE Prophylaxis: SCDs VTE Mechanical Devices: Intermittant Pneumatic CD Resuscitation Status: CPR: Attempt Resuscitation Time spent 20 minutes Mandi Jovel MD Nov 03, 2016 14:46
[2016-11-03 16:46] VITALS: BP 149/70; PULSE 106; RESP 18; O2SAT 95
[2016-11-03] MEDS ORDERED: Furosemide 10 mg/mL 4 mL Inj IVPUSH ONE (17:10)
--- NOTE | 2016-11-03 18:26 | NUR ---
Fluid Overload Pt became increasingly SOB late this shift, noted crackles in lung bases and intermittent cough. Stopped pt IV D5NS, turned O2 up to 4L NC. Notified Dr. Jovel who ordered 40mg Lasix IV, RN administered. 1.5 hours post administration pt states she "can breathe a little better". Arellano bag has output of 100mL pale urine in less than one hour. WCTM.
[2016-11-03 20:03] VITALS: BP 161/70; PULSE 101; RESP 16; O2SAT 94
[2016-11-03] MEDS: Total Parenteral Nutrition 1 BAG IV SCH (21:30)
--- NOTE | 2016-11-03 23:53 | NUR ---
Skin Integrity Patient is malnourished with bony prominences on sacrum and elbow. Mepilex bandage was placed on sacrum as a precaution to prevent skin breakdown. Patient right elbow has Mepilex bandage in place to prevent skin breakdown. Patient refused pillow between knees but this was suggested as a way to prevent knees from rubbing together while laying on her side in bed.
[2016-11-04] MEDS ORDERED: Acetaminophen IV 1,000 MG in IV Premix 1 EACH IV PRN (00:20)
[2016-11-04] MEDS: Dextrose 5% 0.9% NaCl 1,000 ML IV SCH ×4 (01:55→19:04)
[2016-11-04 05:21] VITALS: BP 139/65; PULSE 93; RESP 18; O2SAT 94
[2016-11-04 06:19] LABS: Magnesium 1.9 mg/dL (1.6-2.6); Phosphorus 2.7 mg/dL (2.5-4.9)
[2016-11-04] MEDS: TPN Per Pharmacist XX SCH ×2 (07:53→22:00)
[2016-11-04] MEDS: Pantoprazole Inj 80 MG in 0.9% Sodium Chloride 80 ML IV SCH ×2 (09:16→18:13)
[2016-11-04 09:22] VITALS: BP 135/57; PULSE 98; RESP 18; O2SAT 95
--- NOTE | 2016-11-04 09:52 | PROG NOTE ---
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 She has had frequent abdominal bloating and cramping. She has had numerous upper GI evaluations. She was hospitalized last week with severe abdominal pain. CT imaging of the abdomen on October 30, 2016, showed extraluminal oral contrast and free peritoneal air in the upper abdomen, consistent with perforation. She was taken to surgery by Dr. 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 She is recovering from her surgical procedure. She is weak but denies any abdominal pain at this time. OBJECTIVE: Vitals: T 36.6, P 93, R 18, BP 139/65. HEENT: Conjunctivae pale. Mucous membranes somewhat dry. No oral lesions. Nodes: No adenopathy in the neck or axilla. Chest: Clear. Cardiac exam: Regular rate and rhythm with normal S1, S2. Abdomen: Soft, mildly tender. No rebound. Bowel tones are present. Extremities: Extensive muscular wasting. 2+ distal pulses. No calf tenderness. LABORATORIES: WBC 5.7, hemoglobin 8.1, hematocrit 25.7%, platelets 418,000. BUN 8, creatinine less than 0.3, glucose 92. 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 She has had multiple transfusions in the past. She has a single mutation of the HFE gene, but no evidence of iron overload on recent laboratory studies. Transfuse if she develops symptomatic anemia. Otherwise, monitor. [facility] after she has recovered from her recent surgical repair of her perforated gastric ulcer.
[2016-11-04] MEDS: 0.9% Sodium Chloride 250 ML IV SCH (10:25)
--- NOTE | 2016-11-04 10:40 | NUR ---
NUTRITION FOLLOW-UP: Assess: 80 YO F admitted with acute gastric perforation, s/p laparoscopic repair of perforated gastric ulcer. Diet advanced to full liquids. TPN continues, appears to be well tolerated. Pt experiences early satiety so tries to eat small/ more frequent meals. She can drink ~1 Ensure/day. PMHx: Ulcerated gastroesophageal junction, Irregular gastroesophageal junction, Gastric and duodenal hereditary hemorrhagic telangiectasia, Hypothyroid, malnutrition, uterine fibroid. LABS: Reviewed. Cr <0.30, Ca 8.3, K+/Mg/Phos WNL. MEDICATIONS: Reviewed. DIET: Full liquids + Ensure CL. PO intake 50-75%. TPN: 60 g AA, 200 g Dex, 25 g lipids; providing 1170 kcal, 60 g lipids, meeting 89% calorie, 92% protein needs. GI: No BM noted. SKIN: No issues noted ANTHROPOMETRICS: Current Wt: 43.2 kg, BMI: 16.9 kg/m2, Admit Wt: 43.2 kg, IBW: 52.3 kg, wt at previous admit (09/11/16): 36kg, UBW: 110-120 lbs (50-54.5 kg), Recent wt changes: 26% wt loss x 4 months = significant (13.2 kg) ESTIMATED NEEDS: Malnutrition Calories: 6906-8427 kcal/day (25-30 kcal/kg/d IBW) Protein: 65-80 g/day (1.2-1.5 g/kg/d IBW) Fluids: 7802-9829 ml/day (1 ml/kcal/d) NUTRITION DIAGNOSIS: 1) Severe malnutrition related to chronic illness as evidenced by variable wt, recent 26% wt loss x4 months (significant), visible loss of LBM/ fat, meeting <75% of estimated energy requirements >1 month - PERSISTS. 2) Inadequate oral intake related to altered GI function as evidence by current NPO status, early satiety, persistent wt loss - IMPROVING. INTERVENTION: 1) Continue to advance diet as tolerated. 2) Will change Ensure CL to Ensure at lunch tray. 3) Continue current TPN as ordered. Adjust based on PO intake. 4) Pt received high kcal/pro education at past admits and has high kcal/protein recipe book. MONITOR/EVALUATE: TPN tolerance, Diet advance/tolerance, GI, wt, labs, nutrition status. Follow per high nutrition risk guidelines. Addendum: 11/04/16 at [address] Diet advanced to soft, if PO intake >50% of meals consider discontinuing TPN tomorrow.
--- NOTE | 2016-11-04 10:46 | PCM.PHAPRO ---
Progress Date of Service: Nov 04, 2016 Abdominal pain . TPN per pharmacy Per [employer] log rafter, keep macronutrients the same. Confirmed macros as follows: - Amino acids: 60 g - Dextrose: 200 g - Lipids: 25 g Pertinent labs: - Na: 140 - K: 3.8 - Glucose: 92 - Ca: 8.3 (Corrected Ca: 9.6) - Phos: 2.7 - Ma.9 Please note the following changes have been made to the TPN order: - Increase magnesium sulfate from 13 mEq to 15 mEq. PARENTERAL NUTRITION ORDERS 3 04-Nov-16 Standard Hang Time: 2100 Substrates Total kcal: 1170 AMINO ACIDS 60 g DEXTROSE 200 g Total Volume (mL): 1250 LIPIDS 25 g Sterile Water for Injection QS mL To Infuse Over (hrs): 24 Total Volume 1250 mL At at a rate of (mL/hr): 52 Additives Sodium Chloride 60 mEq "typical" daily requirements Sodium Acetate 20 mEq Sodium 50-120mEq Potassium Chloride 30 mEq Potassium 60-120mEq Potassium Phosphate 30 mEq Phosphate 20-40mEq Calcium Gluconate 8 mEq Magnesium 8-32mEq Magnesium Sulfate 15 mEq Calcium 9-22mEq Acetate* 80-120mEq Chloride* 80-120mEq Regular Insulin units *Depending on acid-base status Famotidine 40 mg Multivitamins 1 std dose Insulin Regimen Trace Elements 1 std dose none Thiamine mg Regular Low Intensity Subcut Folic Acid mg Regular Medium Intensity Subcut Ascorbic Acid 0 mg Regular High Intensity Subcut Regular Insulin Infusion Other: Special Instructions: To be infused via central line only. For delay or inturruption of TPN contact the pharmacist for alternative replacement solution. Martha Cui Nov 04, 2016 10:46
--- NOTE | 2016-11-04 11:24 | PCM.PNSURG ---
Subjective Date of Service: Nov 04, 2016 Visit Information: Reason for Visit Perf Ulcer Surgery/Surgery Date LAPRASCOPIC REPAIR PERFORATED GASTRIC ULCER 10/30/16 Post-Op Day #5 Date of Admission: Oct 30, 2016 at 19:48 Hospital Day # Subjective: Drinking liquids and eating pudding with no nausea or vomiting. Believes that she can eat more substantial food. Passing flatus but has not had a bowel movement. Able to independently roll herself over in the bed but does not have the strength to attempt ambulation or sitting in the chair. Sensation of shortness of breath yesterday was relieved with diuresis, complaint of shortness of breath persists although not as dramatic. Arellano catheter remains in at patient request. Pain well-controlled with IV acetaminophen. Postop General: Other (as above) Gastrointestinal: Good Appetite, Tolerating Oral Feedings, No N/V, Passing Flatus Pain Management: Other (IV acetaminophen) Postop Activity: Other (bed rest) Objective Vital Sign- Last 8 Hours Date Time Temp Pulse Resp B/P Pulse Ox O2 Delivery O2 Flow Rate FiO2 11/04/16 09:31 Supplement Oxygen 11/04/16 09:22 36.6 98 18 135/57 95 Nasal Cannula 3.00 11/04/16 05:21 36.6 93 18 139/65 94 Nasal Cannula 3.00 Intake and Output- Last 8 Hour 11/04/16 Cumulative From/Thru 07:00 10/30/16 08:45 - 11/04/16 06:51 Intake Total 1675 ml 54090 ml Output Total 3000 ml 37949 ml Balance -1325 ml 3235 ml Intake Oral 300 ml 2070 ml IV Total 336 ml 25674 ml TPN/PPN 1039 ml 1338 ml Packed Cells 260 ml Output Urine Total 3000 ml 88768 ml Drainage Total 365 ml Estimated Blood Loss 15 ml # Bowel Movements 0 0 General: Alert, Cooperative, No Acute Distress Lungs: Clear to Auscultation (in the anterolateral gracia) Heart: Regular Rate/Rhythm Abdomen: Soft, Non-tender, Non-distended SURGICAL WOUND : Wound General Appearence: Steri Strips, Sutures, Intact, Well Approximated, No Discharge Extremities: Thigh&Calf Soft/Nontender Neuro: Normal Speech Catheters: Urethral 2 Way Arellano Result Diagram: 11/03/16 0600 11/04/16 0515 Assessment & Plan Impression Primary diagnosis: 1. 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 POD #5 with no active bleeding, advancing diet, and some return of bowel function. 2. Peritonitis, resolved. 3. Anemia of chronic disease. Other diagnoses: 1. Hemorrhagic telangiectasias. 2. Hypothyroidism status post thyroidectomy. 3. Malnutrition, acute on chronic. 4. Uterine fibroid mass. Problems: Plan 1. Increase to soft diet as tolerated. 2. MiraLAX 3. Discharge planning 4. Dietary consult 5. Diuresis as per hospitalist 6. Continue TPN Pain Management: IV acetaminophen VTE Prophylaxis: SCDs Resuscitation Status: CPR: Attempt Resuscitation Tano Sánchez PA-C Nov 04, 2016 11:24
[2016-11-04] MEDS: Polyethylene Glycol (PEG) 17 Gm Powder PO SCH (11:58)
--- NOTE | 2016-11-04 13:54 | NUR ---
Gave access and faxed facesheet to [facility] and [facility] Patient [facility] but we may need exception due to TPN
--- NOTE | 2016-11-04 15:03 | NUR ---
SNF choice list provided. Sonal Shah MSW
--- NOTE | 2016-11-04 15:26 | PCM.PNMED ---
Subjective Date of Service Nov 04, 2016 Subjective Patient has been tolerating her current diet with liquids and is on TPN. She had an episode last night of feeling a little bit more short of breath and she did respond to IV Lasix therapy. She denies any nausea or vomiting. He is reticent to have her Arellano catheter removed as to the difficulty of moving to get up to urinate etc. Exam Vital Signs Vital Sign - Last Date Time Temp Pulse Resp B/P Pulse Ox O2 Delivery O2 Flow Rate FiO2 11/04/16 09:31 Supplement Oxygen 11/04/16 09:22 36.6 98 18 135/57 95 3.00 Intake and Output 11/03/16 11/03/16 11/04/16 Cumulative From/Thru 14:59 22:59 06:59 10/30/16 08:45 - 11/04/16 06:51 Intake Total 800 ml 1675 ml 25881 ml Output Total 3400 ml 3000 ml 76184 ml Balance -2600 ml -1325 ml 3235 ml Intake Oral 800 ml 300 ml 2070 ml IV Total 336 ml 76847 ml TPN/PPN 1039 ml 1338 ml Packed Cells 260 ml Output Urine Total 3400 ml 3000 ml 73989 ml Drainage Total 365 ml Estimated Blood Loss 15 ml # Bowel Movements 0 0 Exam Constitutional: Elderly woman in no acute distress. Cachectic Head: Normocephalic atraumatic Chest: Clear to auscultation Cor: Regular rate and rhythm S1-S2 Abdomen soft mild diffuse tenderness no rebound no guarding bowel sounds are present Extremities: No pedal edema Psych: Mood and affect are appropriate Neuro: Alert and oriented 3, motor strength is intact bilaterally Lab and Diagnostics Result Diagram: 11/03/16 0600 11/04/16 0515 X-Rays, CTs and MRIs Abdominal CT scan reviewed and showed: Extraluminal oral contrast and free peritoneal air in the upper abdomen, consistent with viscus perforation, most likely perforated gastric or duodenal ulcer. 2. Heterogeneous enhancement of liver. There are 2 cystic masses in the inferior liver, which is new since 07/13/2016. There is an fluid fluid level within the more inferior cyst. Differential diagnosis included parasitic cysts, intrahepatic hematoma or abscess. If clinically indicated, ultrasound guided cyst aspiration could be considered. 3. A large heterogeneous mass in pelvis compatible with uterine leiomyomas.PROCEDURE: X-RAY GASTROGRAPHIN STUDY OF ESOPHAGUS/PHARYNX ([id number]) GASTROGRAFFIN SWALLOW INDICATIONS: ?leak s/p oversew of gastric ulcer COMPARISON: None. FINDINGS: Limited Gastrografin swallow demonstrates grossly normal appearance of the esophagus. There is mild esophageal dysmotility. Images of the stomach demonstrate no extravasation of contrast medium. Delayed images also were performed demonstrating no extravasation. Small amount of thin barium was then given which also demonstrated no definite leak. The attending physician was personally present in the room during the examination. IMPRESSION: No definite perforation is visualized involving the proximal stomach where there was previous perforated ulcer with subsequent repair. Dictated by: Suraj BUCK Interpreted: Omar Ordaz MD on 11/01/2016 at 13: 15 Transcribed by: ANDREW on 11/01/2016 at 13:16 PROCEDURE: X-RAY ABDOMEN DECUBITUS, LEFT INDICATIONS: gastric dilitation TECHNIQUE: One view of the abdomen acquired. COMPARISON: Located [facility], CR, XR ESOPHAGUS PHARYNX (GASTRO), 2016, 9:14. FINDINGS: Surgical changes and devices: None. Bowel: Residual contrast media seen within the stomach and a surgical drain is present. There is a moderate amount of colonic stool throughout the colon otherwise bowel gas pattern is normal. Soft tissues: No suspicious abdominal calcifications. Visualized solid organ contours appear normal in size. Bones: No suspicious bony lesions. IMPRESSION: Residual contrast media is seen within the gastric fundus and moderate amount of colonic stool is present. Dictated by: Suraj BUCK Interpreted: Franca Peace MD on 11/01/2016 at 13: 25 Transcribed by: NONA on 11/01/2016 at 13:25 Assessment & Plan 1. Gastric perforation : Secondary to ulcers. Patient is status post surgical intervention with repair. Case discussed with surgery. *IV hydration with D5 normal saline at 75 mL per hour. Discontinue Ringer lactate. IV antibiotics : Zosyn . PPI drip. Further recommendations per general surgery We will order incentive spirometry with respiratory to teach On clears but will get PICC Currently on TPN 2. Severe malnutrition : Consult nutrition. 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 Patient not a good candidate for partial gastric resection due to severe malnutrition 4. Thrombocytosis : Mild. Reactive . 5. Insomnia We will go ahead and order IV Ativan 0.5 at at bedtime when necessary sleep 6. Postoperative acute on chronic anemia, Will continue to monitor hemoglobin and would recommend transfusion if it is below 7 Patient received 1 unit of PRBCs 2 days ago. Hemoglobin is currently stable . Clinically and hemodynamically stable. Labs in AM : CMP, cbc. Dilaudid for pain . Surgery follow up. GI Prophylaxis: Proton Pump Inhibitor VTE Prophylaxis: SCDs VTE Mechanical Devices: Intermittant Pneumatic CD Resuscitation Status: CPR: Attempt Resuscitation Time spent 30 minutes Mandi Joevl MD Nov 04, 2016 15:26
--- NOTE | 2016-11-04 16:08 | NUR ---
Evaluation completed. Please go to "Notes" then click on "Assessments and Notes" (bottom left corner of screen). Then select appropriate discipline tab on top of screen.
--- NOTE | 2016-11-04 16:22 | NUR ---
Social Work- Continued D/C Planning Data: EMR reviewed. Pt is on day 5 of hospitalization for a perforated ulcer per H&P. Pt is POD 4. SW followed up with pt at bedside regarding SNF choice. PT evaluation pending. SW explained potential SNF recommendation and TPN requirements at discharge. SNF choice list provided. Pt chose [facility] or [facility], pending [facility] auth exception and ability to manage TPN. UR Specialist faxed referrals. SW faxed [facility] to facilities. Paperwork in chart. SW continues to follow for needs. Assessment: Pt who would benefit from SNF. Plan: Pt to benefit from SNF placement. Referral to [facility] and [facility] made. [facility] faxed. Paperwork in chart. SW will continue to follow. Sonal Shah MSW
[2016-11-04 16:39] VITALS: BP 137/68; PULSE 98; RESP 18; O2SAT 94
--- NOTE | 2016-11-04 17:25 | NUR ---
Activity/Diet Patient wanted to get bed bath today and expressed a desire to get up to the chair to do so. Patient was a 1 person assist with walker to the chair because she is feeling weak and unsteady on her own. Patient tolerated the activity well and did not get SOB. Pt was on RA and maintained O2 above 93%. Patient able to sit in chair for 45 minutes after to relieve pressure off her back/bottom. Patient was encouraged to get up for all meals now to relieve pressure and appears compliant with this plan. Pt did not complain of any pain. For lunch, patient was able to eat a full liquid diet and tolerated this well. Had no complaints of N/V after. Patient has call light and is instructed to call as needed. Bed in low position. Addendum: 11/04/16 at 1839 by EDILIA CRUZ RN POST-OP PROGRESS Patient denies pain. Diet was advanced to a soft diet. She ate 50 % of her dinner. Tolerated it well. Denies nausea. No emesis noted. Denies SOB. Weaned off O2. PO2 on room air is in the low to mid 90's. Patient has been using her IS. She was able to get OOB to the chair for her sponge bath and sat in the chair for a couple of minuted. Ambulated in the room with PT. Tolerated activity fairly. Band aid dressing is CDI. IFC intact and draining to dung colored UO. Miralax was started this morning. No BM at this time. Mepilex foam in her buttocks for protection is CDI. Patient has been using her call light appropriately.
[2016-11-04 19:40] VITALS: BP 129/67; PULSE 107; RESP 18; O2SAT 94
[2016-11-04] MEDS ORDERED: Total Parenteral Nutrition 1 BAG IV SCH (22:26)
[2016-11-04] MEDS: Total Parenteral Nutrition 1 BAG IV SCH (22:27)
[2016-11-05] MEDS ORDERED: Acetaminophen IV 1,000 MG in IV Premix 1 EACH IV PRN (02:00)
[2016-11-05] MEDS: Pantoprazole Inj 80 MG in 0.9% Sodium Chloride 80 ML IV SCH (02:45)
--- NOTE | 2016-11-05 03:49 | NUR ---
Pain Patient c/o abdominal pain, however did not have prn pain meds available, overnight houseperson hospitalist made aware and order was placed. Patient then denied pain and refused PRN. Currently able to sleep comfortably absent of complaints.
[2016-11-05 05:01] VITALS: BP 129/65; PULSE 98; RESP 18; O2SAT 94
[2016-11-05 05:57] LABS: Phosphorus 3.2 mg/dL (2.5-4.9)
[2016-11-05 08:14] VITALS: BP 152/66; PULSE 90; RESP 18; O2SAT 94
[2016-11-05] MEDS: Polyethylene Glycol (PEG) 17 Gm Powder PO SCH (10:13)
--- NOTE | 2016-11-05 10:33 | PCM.PNSURG ---
Subjective Date of Service: Nov 05, 2016 Visit Information: Reason for Visit Perf Ulcer Surgery/Surgery Date LAPRASCOPIC REPAIR PERFORATED GASTRIC ULCER 10/30/16 Post-Op Day # 6 Date of Admission: Oct 30, 2016 at 19:48 Hospital Day # Subjective: No longer requesting intravenous acetaminophen as the patient feels that she is now pain-free. Out of bed to chair yesterday and this morning, gaining strength rapidly now. Ate a portion of hot cereal and omelette for breakfast this morning with no nausea or vomiting. Appetite is returning. Swallows food with no dysphagia, dyspepsia, or regurgitation. Passing flatus but no bowel movement since her operation. Receiving MiraLAX. Wants to have TPN turned off so that she can return to her home, does not want to go to a [facility] facility. Postop General: No Complaints, No Shortness of Breath Gastrointestinal: Tolerating Oral Feedings, No N/V, Passing Flatus Pain Management: No or Minimal Pain Postop Activity: Other (out of bed to a chair) Objective Vital Sign- Last 8 Hours Date Time Temp Pulse Resp B/P Pulse Ox O2 Delivery O2 Flow Rate FiO2 11/05/16 08:14 36.9 90 18 152/66 94 Room Air 11/05/16 05:01 36.5 98 18 129/65 94 Room Air Intake and Output- Last 8 Hour 11/05/16 Cumulative From/Thru 07:00 10/30/16 08:45 - 11/05/16 06:39 Intake Total 1089 ml 16432 ml Output Total 1500 ml 80889 ml Balance -411 ml 2420 ml Intake Oral 418 ml 3008 ml IV Total 117 ml 77792 ml TPN/PPN 554 ml 1892 ml Packed Cells 260 ml Output Urine Total 1500 ml 75150 ml Drainage Total 365 ml Estimated Blood Loss 15 ml # Bowel Movements 0 General: Alert, Cooperative, No Acute Distress Lungs: Clear to Auscultation Heart: Regular Rate/Rhythm Abdomen: Soft, Non-tender, Non-distended SURGICAL WOUND : Wound General Appearence: Steri Strips, Sutures, No Erythema, No Discharge Neuro: Normal Speech Catheters: Urethral 2 Way Arellano Result Diagram: 11/03/16 0600 11/05/16 0500 Assessment & Plan Impression rimary diagnosis: 1. 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 POD #6 with no active bleeding, advancing diet, and some return of bowel function. Afebrile for 2 days since IV antibiotics have been discontinued. 2. Peritonitis, resolved. 3. Anemia of chronic disease. Other diagnoses: 1. Hemorrhagic telangiectasias. 2. Hypothyroidism status post thyroidectomy. 3. Malnutrition, acute on chronic. 4. Uterine fibroid mass. Problems: Plan A discussion was held with the hospitalist: 1. Consultation with pharmacy and dietary will be held to assist with tapering and discontinuing TPN. 2. PPIs will change to by mouth 3. Discharge is anticipated for either late this afternoon or more probably tomorrow. 4. Recheck white blood cell count 5. Arrange for home health and home PT When the patient is discharged she will need follow-up with Dr. Moncada in 1 week. And she will need to be discharged on twice a day PPI. Pain Management: Oral Tylenol VTE Prophylaxis: SCDs Resuscitation Status: CPR: Attempt Resuscitation Tano Sánchez PA-C Nov 05, 2016 10:32
[2016-11-05] MEDS ORDERED: Magnesium Hydroxide 10 mL Oral Concentration PO PRN (10:35)
[2016-11-05] MEDS ORDERED: Magnesium Hydroxide 10 mL Oral Concentration PO ONE (10:35)
[2016-11-05 10:53] LABS: BASOPHILS % (AUTO) 0.5 % (0-3); EOSINOPHILS % (AUTO) 3.7 % (0-5)
[2016-11-05 10:56] LABS: MONOCYTES % (AUTO) 17.1 % (4-12); Mean Corpuscular Hemoglobin 28.2 pg (27.0-35.0); Mean Corpuscular Volume 90.6 fL (81-100); NEUTROPHILS % (AUTO) 65.5 % (40-74); Platelet Count 466 bil/L (150-400)
[2016-11-05] MEDS: Dextrose 5% 0.9% NaCl 1,000 ML IV SCH ×3 (11:15→20:56)
--- NOTE | 2016-11-05 13:41 | NUR ---
Diet P: Pt still on TPN due to malnourishment, but hopes to wean off because she does not want to move to a SNF I: Diet advanced to general, encouraged oral intake, offered ensure, continually assessed for n/v E: Pt tolerating general diet well, ate 35% breakfast 25% lunch and no c/o of n/v, passing flatus. Provided miralax and laxative supplement to encourage BM Addendum: 11/05/16 at 1553 by SEBASTIÁN BENSON RN Agree with above note. Hugh Benson RN
[2016-11-05 13:54] VITALS: BP 152/69; PULSE 98; RESP 18; O2SAT 96
--- NOTE | 2016-11-05 13:54 | NUR ---
NUTRITION FOLLOW-UP: Assess: 80 YO F admitted with acute gastric perforation, s/p laparoscopic repair of perforated gastric ulcer. MD called regarding pt request for education for increasing po intake. Went to speak with pt regarding request and pt stated that she did not request a dietitian visit. Pt states she still has the high calorie / high protein booklet we provided her in the past but she does not use it much. Pt has increased from 1 ensure to 2 ensure per day at home. Pt states she has not been eating very well at home because she has not been feeling well. Per diet recall, pt unlikely to gain weight quickly as pt continues to have limited po intake (oatmeal with butter, sugar and cream and 1/2 ensure with coffee and 1/2 and 1/2 for breakfast), soup and 1/2 of ensure for lunch and poached egg with toast for dinner. Encouraged 2-3 ensure drinks per day, adding cheese to poached eggs adding nuts/peanut butter to oatmeal etc. PMHx: Ulcerated gastroesophageal junction, Irregular gastroesophageal junction, Gastric and duodenal hereditary hemorrhagic telangiectasia, Hypothyroid, malnutrition, uterine fibroid. LABS: Reviewed. MEDICATIONS: Reviewed. DIET: General + ensure on L tray. Po 25-35% of melas. TPN: 60 g AA, 200 g Dex, 25 g lipids; providing 1170 kcal, 60 g lipids, meeting 89% calorie, 92% protein needs, to be discontinued today. GI: No BM noted. SKIN: No issues noted ANTHROPOMETRICS: Current Wt: 42.3 kg (bed scale), Admit Wt: 38.5 kg (Bed scale), wt 09/07/16: 36.8 kg (standing scale) IBW: 52.3 kg. UBW (November): 54 kg. Severe wt loss noted in past, but wt appears stable with slight increase over the past 2 months. Current wt increase likely related to fluid status ESTIMATED NEEDS: Malnutrition Calories: 5775-0961 kcal/day (25-50 kcal/kg IBW) Protein: 65-80 g/day (1.2-1.5 g/kg IBW) Fluids: 0472-2318 ml/day (1 ml/kcal) NUTRITION DIAGNOSIS: 1) Severe malnutrition related to chronic illness as evidenced by variable wt, visible loss of LBM/ fat, meeting <75% of estimated energy requirements >1 month - PERSISTS. 2) Inadequate oral intake related to altered GI function as evidence by early satiety, BMI of 15.0 on admit, and PO intake of 25-35% of meals--PERSISTS. INTERVENTION: 1) Continue current diet at this time. 2) Will add ensure to B trays (pt already receiving ensure at lunch). 3) Recommend tapering TPN after current bag to encourage increased po intake. 4) Reviewed ways to increased kcals / protein with pt per MD request. Pt has received edu in past on 09/11/16 as well. MONITOR/EVALUATE: PO intake, diet tolerance, labs, weights, nutrition status. Follow per high nutrition risk guidelines.
--- NOTE | 2016-11-05 14:40 | NUR ---
Social Work- Readiness for Discharge Data: EMR reviewed. Pt is on day 6 of hospitalization for a perforated ulcer per H&P. Pt is not medically stable, anticipate 1-2 more days of hospitalization. PT recommending home with PT at this time. Per MD in rounds, dietary to wean TPN prior to discharge. SW spoke with pt at bedside regarding PT's recommendation of home with HH vs. SNF. HH choice list provided. Pt amenable to this plan. Pt did not have a HH preference, so SW referred to rotating calendar and made referral to [facility] for RN PT OT. Access given. DESTINEE followed up with [facility] [facility] liaison at [facility] [phone] regarding this referral. F2F in folder. SW updated [facility] to inform them that TPN and SNF placement no longer necessary at this time. All updated and agreeable to plan. Pt to discharge home with family to transport via POV. SW will continue to follow. Assessment: Pt who would benefit from home with [facility] RN PT OT Plan: Pt to discharge home with [facility] via POV. PT recommending home with HH. Referral made to [facility] [phone]. All updated and agreeable to plan. SW will continue to follow. SOHAN Awad
[2016-11-05] MEDS: 0.9% Sodium Chloride 250 ML IV SCH (15:30)
--- NOTE | 2016-11-05 15:59 | PCM.PNMED ---
Subjective Date of Service Nov 05, 2016 Subjective Patient has been working with physical therapy and progressing quite nicely. However with continuing work with physical therapy we might able to be able to get her to home as opposed to fpc facility. Project possible discharge with another day working with physical therapy and making sure she is tolerating her progression of diet. Exam Vital Signs Vital Sign - Last Date Time Temp Pulse Resp B/P Pulse Ox O2 Delivery O2 Flow Rate FiO2 11/05/16 13:54 36.9 98 18 152/69 96 Room Air 11/04/16 09:22 3.00 Intake and Output 11/04/16 11/04/16 11/05/16 Cumulative From/Thru 14:59 22:59 06:59 10/30/16 08:45 - 11/05/16 06:39 Intake Total 1246 ml 1089 ml 21882 ml Output Total 1650 ml 1500 ml 74711 ml Balance -404 ml -411 ml 2420 ml Intake Oral 520 ml 418 ml 3008 ml IV Total 726 ml 117 ml 03012 ml TPN/PPN 554 ml 1892 ml Packed Cells 260 ml Output Urine Total 1650 ml 1500 ml 43005 ml Drainage Total 365 ml Estimated Blood Loss 15 ml # Bowel Movements 0 Exam Constitutional: Cachectic female in no acute distress Head: Normocephalic atraumatic Chest: Clear to auscultation Cor: Regular rate and rhythm S1-S2 Abdomen: Soft there is mild diffuse tenderness no rebound no guarding bowel sounds are present Extremities: No pedal edema Neuro: Alert and oriented 3, motor strength is intact bilaterally Lab and Diagnostics Laboratory Tests 72 Hours Test 11/03/16 06:00 11/04/16 05:15 11/05/16 05:00 White Blood Count 5.7th/mm3 (3.8-10.1) 5.9th/mm3 (3.8-10.1) Red Blood Count 2.84mil/mm3 (3.90-5.20) 3.08mil/mm3 (3.90-5.20) Hemoglobin 8.1g/dL (12.0-15.6) 8.7g/dL (12.0-15.6) Hematocrit 25.7% (35.0-46.0) 27.9% (35.0-46.0) Mean Corpuscular Volume 90.5fL (81-100) 90.6fL (81-100) Mean Corpuscular Hemoglobin 28.5pg (27.0-35.0) 28.2pg (27.0-35.0) Mean Corpuscular Hemoglobin Concent 31.5% (32.0-37.0) 31.2% (32.0-37.0) Red Cell Distribution Width 15.1% (12.3-15.4) 16.0% (12.3-15.4) Platelet Count 418bil/L (150-400) 466bil/L (150-400) Neutrophils (%) (Auto) 72.8% (40-74) 65.5% (40-74) Lymphocytes (%) (Auto) 9.7% (14-46) 12.5% (14-46) Monocytes (%) (Auto) 14.6% (4-12) 17.1% (4-12) Eosinophils (%) (Auto) 2.1% (0-5) 3.7% (0-5) Basophils (%) (Auto) 0.4% (0-3) 0.5% (0-3) Sodium Level 140mEq/L (134-144) 140mEq/L (134-144) 136mEq/L (134-144) Potassium Level 3.5mEq/L (3.5-5.2) 3.8mEq/L (3.5-5.2) 4.3mEq/L (3.5-5.2) Chloride Level 106mEq/L (97-108) 105mEq/L (97-108) 103mEq/L (97-108) Carbon Dioxide Level 26mmol/L (18-29) 27mmol/L (18-29) 25mmol/L (18-29) Blood Urea Nitrogen 5mg/dL (8-27) 8mg/dL (8-27) 10mg/dL (8-27) Creatinine < 0.30mg/dL (0.57-1.00) < 0.30mg/dL (0.57-1.00) < 0.30mg/dL (0.57-1.00) Estimat Glomerular Filtration Rate mL/min (>59) mL/min (>59) 305mL/min (>59) Glucose Level 107mg/dL (60-99) 92mg/dL (60-99) 91mg/dL (60-99) Calcium Level 8.1mg/dL (8.5-10.1) 8.3mg/dL (8.5-10.1) 8.4mg/dL (8.5-10.1) Phosphorus Level 2.3mg/dL (2.5-4.9) 2.7mg/dL (2.5-4.9) 3.2mg/dL (2.5-4.9) Magnesium Level 1.7mg/dL (1.6-2.6) 1.9mg/dL (1.6-2.6) 2.0mg/dL (1.6-2.6) Hematology Comments Result Diagram: 11/05/16 0500 11/05/16 0500 X-Rays, CTs and MRIs Abdominal CT scan reviewed and showed: Extraluminal oral contrast and free peritoneal air in the upper abdomen, consistent with viscus perforation, most likely perforated gastric or duodenal ulcer. 2. Heterogeneous enhancement of liver. There are 2 cystic masses in the inferior liver, which is new since 07/13/2016. There is an fluid fluid level within the more inferior cyst. Differential diagnosis included parasitic cysts, intrahepatic hematoma or abscess. If clinically indicated, ultrasound guided cyst aspiration could be considered. 3. A large heterogeneous mass in pelvis compatible with uterine leiomyomas.PROCEDURE: X-RAY GASTROGRAPHIN STUDY OF ESOPHAGUS/PHARYNX ([id number]) GASTROGRAFFIN SWALLOW INDICATIONS: ?leak s/p oversew of gastric ulcer COMPARISON: None. FINDINGS: Limited Gastrografin swallow demonstrates grossly normal appearance of the esophagus. There is mild esophageal dysmotility. Images of the stomach demonstrate no extravasation of contrast medium. Delayed images also were performed demonstrating no extravasation. Small amount of thin barium was then given which also demonstrated no definite leak. The attending physician was personally present in the room during the examination. IMPRESSION: No definite perforation is visualized involving the proximal stomach where there was previous perforated ulcer with subsequent repair. Dictated by: Suraj BUCK Interpreted: Omar Ordaz MD on 11/01/2016 at 13: 15 Transcribed by: ANDREW on 11/01/2016 at 13:16 PROCEDURE: X-RAY ABDOMEN DECUBITUS, LEFT INDICATIONS: gastric dilitation TECHNIQUE: One view of the abdomen acquired. COMPARISON: [facility], CR, XR ESOPHAGUS PHARYNX (GASTRO), 2016, 9:14. FINDINGS: Surgical changes and devices: None. Bowel: Residual contrast media seen within the stomach and a surgical drain is present. There is a moderate amount of colonic stool throughout the colon otherwise bowel gas pattern is normal. Soft tissues: No suspicious abdominal calcifications. Visualized solid organ contours appear normal in size. Bones: No suspicious bony lesions. IMPRESSION: Residual contrast media is seen within the gastric fundus and moderate amount of colonic stool is present. Dictated by: Suraj BUCK Interpreted: Franca Peace MD on 11/01/2016 at 13: 25 Transcribed by: NONA on 11/01/2016 at 13:25 Assessment & Plan 1. Gastric perforation : Secondary to ulcers. Patient is status post surgical intervention with repair. Case discussed with surgery. Patient currently is on Protonix by mouth twice a day Progress diet per nutrition Nutrition recommends that we can stop her TPN which will plan on doing that today by decreasing the rate by 50% 2 hours and then off. Physical therapy will continue to work with her over the next day and hopefully she will be strong enough to be discharged to home or if not consider placement in fpc facility 2. Severe malnutrition : Consult nutrition. As noted above 3. Hereditary hemorrhagic telangiectasias : S/p multiple endoscopy. Patient not a good candidate for partial gastric resection due to severe malnutrition 4. Thrombocytosis : Mild. Reactive . 6. Postoperative acute on chronic anemia, Will continue to monitor hemoglobin and would recommend transfusion if it is below 7 Patient received 1 unit of PRBCs 2 days ago. Hemoglobin is currently stable . GI Prophylaxis: Proton Pump Inhibitor VTE Prophylaxis: SCDs VTE Mechanical Devices: Intermittant Pneumatic CD Resuscitation Status: CPR: Attempt Resuscitation Time spent 30 minutes Mandi Jovel MD Nov 05, 2016 15:59
--- NOTE | 2016-11-05 16:06 | NUR ---
choice list provided. Sonal Shah MSW
[2016-11-05] MEDS: Pantoprazole 40 mg ER24 Tablet PO SCH (16:50)
[2016-11-05 20:31] VITALS: BP 134/72; PULSE 99; RESP 18; O2SAT 95
[2016-11-05] MEDS: Total Parenteral Nutrition 1 BAG IV SCH (20:56)
--- NOTE | 2016-11-06 04:11 | NUR ---
Diet Patient weened of TPN 1/2 rate at 1900, and shut off at 2100. No adverse side effects to discontinued TPN at this time.
[2016-11-06 05:55] VITALS: BP 119/70; PULSE 97; RESP 16; O2SAT 96
[2016-11-06 06:07] LABS: Magnesium 2.1 mg/dL (1.6-2.6); Phosphorus 3.2 mg/dL (2.5-4.9)
[2016-11-06] MEDS: Pantoprazole 40 mg ER24 Tablet PO SCH ×2 (07:56→19:41)
[2016-11-06] MEDS: Polyethylene Glycol (PEG) 17 Gm Powder PO SCH (07:56)
--- NOTE | 2016-11-06 08:38 | PCM.PNSURG ---
Subjective Date of Service: Nov 06, 2016 Visit Information: Reason for Visit Perf Ulcer Surgery/Surgery Date LAPRASCOPIC REPAIR PERFORATED GASTRIC ULCER 10/30/16 Post-Op Day # 7 Date of Admission: Oct 30, 2016 at 19:48 Hospital Day # Subjective: Eating good quantities of solid foods and drinking ensure with no nausea or vomiting. Denies dyspepsia or regurgitation. Pain well controlled with occasional oral Tylenol. Passing flatus but has not had a bowel movement despite milk of magnesia and MiraLAX. Ambulated yesterday with physical therapy. Arellano catheter is out. TPN is off. A telephone discussion was held with Dr. Bynum who is requesting that the PICC line remain in for future blood transfusions. Postop General: No Complaints Gastrointestinal: Good Appetite, Tolerating Oral Feedings, No N/V, Passing Flatus Pain Management: PO Postop Activity: Ambulate with Assist Objective Vital Sign- Last 8 Hours Date Time Temp Pulse Resp B/P Pulse Ox O2 Delivery O2 Flow Rate FiO2 11/06/16 05:55 36.7 97 16 119/70 96 Room Air Intake and Output- Last 8 Hour 11/06/16 Cumulative From/Thru 06:59 10/30/16 08:45 - 11/06/16 06:14 Intake Total 318 ml 42757 ml Output Total 295 ml 83965 ml Balance 23 ml 1680 ml Intake Oral 318 ml 3539 ml IV Total 11484 ml TPN/PPN 2436 ml Packed Cells 260 ml Output Urine Total 295 ml 52480 ml Drainage Total 365 ml Estimated Blood Loss 15 ml # Voids 1 1 # Bowel Movements 0 General: Alert, Cooperative, No Acute Distress Lungs: Clear to Auscultation Heart: Regular Rate/Rhythm Abdomen: Soft, Non-tender, Non-distended SURGICAL WOUND : Wound General Appearence: Steri Strips, Sutures, Intact, Well Approximated, Incision Healing, No Erythema, No Discharge Extremities: Thigh&Calf Soft/Nontender Neuro: Normal Speech Catheters: None Result Diagram: 11/05/16 0500 11/06/16 0505 Assessment & Plan Impression Primary diagnosis: 1. 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 POD # 7with no active bleeding, tolerating regular diet, and some return of bowel function. Afebrile for 3 days since IV antibiotics have been discontinued, no leukocytosis. 2. Severe sepsis secondary to peritonitis, resolved. 3. Anemia of chronic disease. Other diagnoses: 1. Hemorrhagic telangiectasias. 2. Hypothyroidism status post thyroidectomy. 3. Malnutrition, acute on chronic. 4. Uterine fibroid mass. Problems: Plan The patient will be discharged home today on twice a day Protonix 40 mg and oral Tylenol for pain control. PICC line will remain in place and home health nurse will flush weekly. The patient will follow-up with Dr. Moncada in 1 week. Pain Management: Oral Tylenol VTE Prophylaxis: SCDs Resuscitation Status: CPR: Attempt Resuscitation copies to: Macy Baird MD; Miller Bynum MD, Fred H PA-C Nov 06, 2016 08:38
--- NOTE | 2016-11-06 08:42 | PCM.DISURG ---
Surgical Discharge Instruction Date of Service Nov 06, 2016 Dates of Hospitalization Date of Hospital Admission Oct 30, 2016 at 19:48 Providers Admitting Physician: Jovita Moncada MD Primary Care Physician: Macy Baird MD Attending Physician: Jovita Moncada MD Discharge Diagnosis Discharge Diagnosis Primary diagnosis: 1. 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 2. Severe sepsis secondary to peritonitis, resolved. 3. Anemia of chronic disease. Other diagnoses: 1. Hemorrhagic telangiectasias. 2. Hypothyroidism status post thyroidectomy. 3. Malnutrition, acute on chronic. 4. Uterine fibroid mass. Post Operative diagnosis Same Diet Discharge Diet: No restrictions Activity Discharge Activity-General: Try not to overdue, Be up and about Dressing and Incisional Care Dressing Care: Allow Steri Stripes to fall off Hygiene: May shower Additional Instructions Additional Instructions Home health nurse to flush PICC line weekly Home physical therapy, plan as per physical therapist. Follow Up Plan Follow-up Provider (F9): Jovita Moncada MD Follow-up appointment: Weeks (1 week) Call your provider for: Fever, Chills, Increasing abdominal pain, Nausea, Vomiting, Wound redness, Increasing wound pain, Warmth to touch, Discharge @ incision, pus discharge Tano Sánchez PA-C Nov 06, 2016 08:42
[2016-11-06] MEDS ORDERED: POLY17PO6 PO (08:46)
[2016-11-06] MEDS ORDERED: PANT40TA3 PO (08:46)
--- NOTE | 2016-11-06 08:54 | PCM.DC.SUR ---
Discharge Summary Date of Service: Nov 06, 2016 Date of Hospital Admission: Oct 30, 2016 at 19:48 Date of Operation(s): 10/30/2016 Date of Discharge: 11/06/2016 Diagnosis at Time of Discharge Primary diagnosis: 1. 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 2. Severe sepsis secondary to peritonitis, resolved. 3. Anemia of chronic disease. Other diagnoses: 1. Hemorrhagic telangiectasias. 2. Hypothyroidism status post thyroidectomy. 3. Malnutrition, acute on chronic. 4. Uterine fibroid mass. 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 She has undergone at least 15 endoscopies for control of bleeding from these arteriovenous malformations in the past. The most recent one was back in August 2016. She presented to the emergency department with a peritoneal abdomen and CT scan revealed perforation of the anterior aspect of the proximal stomach. For this reason she was brought to the operative suite for exploration and repair. She is chronically malnourished with a BMI of 15 and albumin 3.1. She was previously considered for gastric resection, but was considered to be too chronically malnourished to undergo such an operation. Consultants: Hospitalist Hospital Course: The patient was admitted and underwent the above-mentioned operation without complication. Postsurgically her recovery was slow secondary to her debilitated state. She had no postsurgical bleeding and recovery from sepsis was uncomplicated. Antibiotics were discontinued 3 days prior to discharge. Diet was able to be advanced without incident. Physical therapy successfully mobilize the patient to independent ambulation prior to discharge. And intensive dietary intervention and education was accomplished during hospitalization. By the time of discharge the patient was eating regular meals and drinking ensure with no nausea, vomiting, dyspepsia, or regurgitation. She was passing flatus but had not had a bowel movement. She was ambulating with minimal assistance, her wounds appeared to be healing, and she was tolerating pain on occasional oral Tylenol. Pathology: None Disposition: The patient was discharged to home with PICC line in place on her seventh postsurgical day. Follow-up Plan: She will follow-up in the office with Dr. Moncada in 1 week. Norethindrone/Eth Estradiol (Zenchent) 1 Each Tablet 1 TABLET PO DAILY (Reported ) Pantoprazole DR (Pantoprazole DR) 40 Mg Tablet.dr 40 MG PO BIDAC Polyethylene Glycol 3350 (Miralax) 17 Gm Powd.pack 17 GM PO DAILY Thyroid,Pork ([place] Thyroid) 90 Mg Tablet 90 MG PO DAILY copies to: Macy Baird MD; Miller Bynum MD, Fred H PA-C Nov 06, 2016 08:54
[2016-11-06] MEDS: Dextrose 5% 0.9% NaCl 1,000 ML IV SCH ×2 (12:15→20:35)
--- NOTE | 2016-11-06 12:40 | PCM.PNMED ---
Subjective Date of Service Nov 06, 2016 Subjective TPN off yesterday, tolerated diet denied n,v,abd pain, has good appetite Patient's liver enzymes were bumped today, therefore d/c being delayed Exam Vital Signs Vital Sign - Last Date Time Temp Pulse Resp B/P Pulse Ox O2 Delivery O2 Flow Rate FiO2 11/06/16 05:55 36.7 97 16 119/70 96 Room Air 11/04/16 09:22 3.00 Intake and Output 11/05/16 11/05/16 11/06/16 Cumulative From/Thru 15:00 23:00 07:00 10/30/16 08:45 - 11/06/16 06:14 Intake Total 757 ml 318 ml 64900 ml Output Total 1520 ml 295 ml 26520 ml Balance -763 ml 23 ml 1680 ml Intake Oral 213 ml 318 ml 3539 ml IV Total 64847 ml TPN/PPN 544 ml 2436 ml Packed Cells 260 ml Output Urine Total 1520 ml 295 ml 75240 ml Drainage Total 365 ml Estimated Blood Loss 15 ml # Voids 1 1 # Bowel Movements 0 0 IVs and Medications Medications Reviewed: Medications were reviewed in detail Lab and Diagnostics Result Diagram: 11/05/16 0500 11/06/16 0505 X-Rays, CTs and MRIs Abdominal CT scan reviewed and showed: Extraluminal oral contrast and free peritoneal air in the upper abdomen, consistent with viscus perforation, most likely perforated gastric or duodenal ulcer. 2. Heterogeneous enhancement of liver. There are 2 cystic masses in the inferior liver, which is new since 07/13/2016. There is an fluid fluid level within the more inferior cyst. Differential diagnosis included parasitic cysts, intrahepatic hematoma or abscess. If clinically indicated, ultrasound guided cyst aspiration could be considered. 3. A large heterogeneous mass in pelvis compatible with uterine leiomyomas.PROCEDURE: X-RAY GASTROGRAPHIN STUDY OF ESOPHAGUS/PHARYNX ([id number]) GASTROGRAFFIN SWALLOW INDICATIONS: ?leak s/p oversew of gastric ulcer COMPARISON: None. FINDINGS: Limited Gastrografin swallow demonstrates grossly normal appearance of the esophagus. There is mild esophageal dysmotility. Images of the stomach demonstrate no extravasation of contrast medium. Delayed images also were performed demonstrating no extravasation. Small amount of thin barium was then given which also demonstrated no definite leak. The attending physician was personally present in the room during the examination. IMPRESSION: No definite perforation is visualized involving the proximal stomach where there was previous perforated ulcer with subsequent repair. Dictated by: Suraj BUCK Interpreted: Omar Ordaz MD on 11/01/2016 at 13: 15 Transcribed by: ANDREW on 11/01/2016 at 13:16 PROCEDURE: X-RAY ABDOMEN DECUBITUS, LEFT INDICATIONS: gastric dilitation TECHNIQUE: One view of the abdomen acquired. COMPARISON: [facility], CR, XR ESOPHAGUS PHARYNX (GASTRO), 2016, 9:14. FINDINGS: Surgical changes and devices: None. Bowel: Residual contrast media seen within the stomach and a surgical drain is present. There is a moderate amount of colonic stool throughout the colon otherwise bowel gas pattern is normal. Soft tissues: No suspicious abdominal calcifications. Visualized solid organ contours appear normal in size. Bones: No suspicious bony lesions. IMPRESSION: Residual contrast media is seen within the gastric fundus and moderate amount of colonic stool is present. Dictated by: Suraj BUCK Interpreted: Franca Peace MD on 11/01/2016 at 13: 25 Transcribed by: NONA on 11/01/2016 at 13:25 Assessment & Plan acute, active #acute transaminitis, developed since adm, asymptomatic, unclear etiology ? related to TPN, medicine induced ?anesthesics on 10/31, culprit drugs are broad, ketamin, propofol, reglan, midazolam, etc. -will trends LFT, bilirubin -get abd US to visualize hepatobiliary tract -will avoid further hepatotoxins chronic, stable, resolved #Gastric perforation : Secondary to ulcers. Patient is status post surgical intervention with repair, s/p TPN 11/05, cleared for d/c from surgery on 11/06 -continue Protonix by mouth twice a day -advance diet as tolerate #Severe malnutrition : Consult nutrition, as noted above #Hereditary hemorrhagic telangiectasias : S/p multiple endoscopy. Patient not a good candidate for partial gastric resection due to severe malnutrition #Thrombocytosis : Mild. Reactive . #Postoperative acute on chronic anemia, s/p Patient received 1 unit of PRBCs 2 days ago. Hemoglobin is currently stable -Will continue to monitor hemoglobin and would recommend transfusion if it is below 7 diet: advance as tolerate, appreciate nutrition consult dispo: delayed due to transaminitis, Full Code GI Prophylaxis: Proton Pump Inhibitor VTE Prophylaxis: SCDs VTE Mechanical Devices: Intermittant Pneumatic CD Resuscitation Status: CPR: Attempt Resuscitation Time spent 35min Viviane Rouse MD Nov 06, 2016 12:40
[2016-11-06 13:24] VITALS: BP 113/61; PULSE 102; RESP 17; O2SAT 98
--- NOTE | 2016-11-06 13:43 | NUR ---
Activity Tolerance P: Pt limited mobility r/t weakness. I: Pt. ambulated half a loop of OSC with FWW. E: Pt. tolerated activity with no complaints of SOB or dizziness.
[2016-11-06] MEDS: 0.9% Sodium Chloride 250 ML IV SCH (15:15)
--- NOTE | 2016-11-06 16:01 | DRSVH ---
PROCEDURE: US ABDOMEN, LIMITED ([id number]) INDICATIONS: rapidly worsened FLT, hepatobiliary tract TECHNIQUE: Real-time focused scanning was performed of the abdomen, with image documentation. COMPARISON: [facility], CT, CT ABD PELVIS W CON, 10/30/2016, 12:32. FINDINGS: 2 complex hypoechoic mass is seen within the inter aspect of the right hepatic lobe S. as i n previous CT scan measuring 2.7 x 2.6 x 1.9 cm and 4.3 x 2.2 x 4.2 cm respectively. Doppler assessm ent demonstrates no internal flow. IMPRESSION: 2 complex, avascular mass is seen within the right hepatic lobe corresponding to CT abnor malities. All findings may be related to complex cysts or underlying inflammatory process such as ab scess, neoplasm cannot be excluded. If indicated hepatic protocol CT could be performed for further assessment. Dictated by: Suraj Potter [facility] Interpreted: Teresa Dewitt MD on 11/06/2016 at 15:58 Transcribed by: ERIKA on 11/06/2016 at 16:01 Approved by: Teresa Dewitt MD, PhD on 11/06/2016 at 17:15
--- NOTE | 2016-11-06 18:41 | DRSVH ---
PROCEDURE: CT ABDOMEN HEPATIC PROTOCOL INDICATIONS: liver mass on ct, us TECHNIQUE: 4 phase scanning was performed. Non-contrast 5 mm axial sections acquired from the diaphragm to the iliac crests. Following the administration of intravenous contrast, 5 mm thick arterial-phase, karen l venous-phase, and 5-minute delayed phase images were acquired through the liver. 5 mm thick ferreira l and sagittal reformats were performed. For radiation dose reduction, the following was used: auto mated exposure control, adjustment of mA and/or kV according to patient size. COMPARISON: [facility], US, ABDOMEN LTD, 11/06/2016, 14:17. [facility], CT, CT ABD PELVIS W CON, 10/30/2016, 12:32. FINDINGS: Image quality: Excellent. Lung bases: Small bilateral pleural effusions are present. Bibasilar atelectasis versus pneumonia. He art size is normal. Liver: There are 2 adjacent cysts within the inferior aspect of the right hepatic lobe, as before, co rresponding to the abnormalities seen by prior CT and ultrasound. The lesions demonstrate water densi ty on pre-and postcontrast imaging. The ultrasound appearance suggests that these represent complex, debris-containing cysts. There are multiple regions of hypervascularity within the right and left hep atic lobe. There are a few areas within these hypervascular regions which demonstrate direct communic ation between the hepatic venous vasculature and the portal venous vasculature. Other solid organs: Gallbladder is contracted. Biliary system is non dilated. Pancreas is normal i n morphology. Spleen is normal in size and enhancement. No adrenal nodules. Both kidneys demonstra te normal size and enhancement, without hydronephrosis or nephrolithiasis. Nodes and vessels: No retroperitoneal or mesenteric adenopathy by size criteria. Aorta and inferior vena cava are normal in size. There is a 12 mm diameter region of enhancement involving the posteri or aspect of the pancreatic head, which is greatest in enhancement on arterial phase imaging, and latoya ears to arise from the pancreaticoduodenal arcade. Bowel and peritoneum: Unenhanced bowel loops are normal in caliber. No free fluid or air. Bones: No suspicious bony lesions. No vertebral body compression fractures. Miscellaneous: Previously seen subxiphoid hernia has been repaired and there is fat within the locati on. IMPRESSION: 1. The lesions within the right hepatic lobe seen by prior CT and ultrasound examinations are consi stent with debris-containing cysts. 2. Multiple intrahepatic portosystemic shunts. 3. 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 4. Bilateral pleural effusions and bibasilar atelectasis versus pneumonia. 5. Status post repair of previously seen subxiphoid hernia. 2. Multiple intrahepatic portosystemic shunts. Dictated by: Junito Cardozo M.D. on 11/06/2016 at 18:28 Approved by: Junito Cardozo M.D. on 11/06/2016 at 18:39
--- NOTE | 2016-11-06 19:19 | NUR ---
Activity Pt encouraged to ambulate today. Up w/ REGULATORY CONSULTANT and FWW twice this shift, steady gait, no complaints of pain or nausea or dizziness Bed down and locked, call light w/in reach. Pt anxious to go home.
[2016-11-06 20:35] VITALS: BP 119/70; PULSE 105; RESP 18; O2SAT 95
[2016-11-07] MEDS: Dextrose 5% 0.9% NaCl 1,000 ML IV SCH ×2 (04:55→13:15)
--- NOTE | 2016-11-07 05:11 | NUR ---
Activity Alert and oriented able to make needs known. One person transfer and ambulation assists with front wheel walker. Patient denies pain and discomfort at this time. Bed in lowest position, wheels locked, and intentional rounding every hour.
[2016-11-07 07:30] VITALS: BP 113/63; PULSE 94; RESP 17; O2SAT 96
[2016-11-07] MEDS: Pantoprazole 40 mg ER24 Tablet PO SCH (07:54)
[2016-11-07] MEDS: Polyethylene Glycol (PEG) 17 Gm Powder PO SCH (07:54)
[2016-11-07 08:14] LABS: BASOPHILS % (AUTO) 0.7 % (0-3); EOSINOPHILS % (AUTO) 4.2 % (0-5); MONOCYTES % (AUTO) 12.9 % (4-12); Mean Corpuscular Volume 91.1 fL (81-100); NEUTROPHILS % (AUTO) 68.3 % (40-74); Platelet Count 524 bil/L (150-400)
[2016-11-07 08:49] LABS: Magnesium 2.1 mg/dL (1.6-2.6); Phosphorus 3.8 mg/dL (2.5-4.9)
--- NOTE | 2016-11-07 09:08 | NUR ---
[facility] Signed
--- NOTE | 2016-11-07 10:12 | PCM.DIMED ---
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 Severe sepsis secondary to peritonitis, Anemia of chronic disease. mild transaminitis, likely medicine induced newly found intrahepatic shunt, hepatic complicated cyst likely related to Hemorrhagic telangiectasias. Hemorrhagic telangiectasias. Hypothyroidism status post thyroidectomy. Malnutrition, acute on chronic. Uterine fibroid mass. Medication Instructions Please note that Pantoprazole increased to 40mg twice a day You can take Miralax for your constipation once a day Diet No restrictions Activity No restrictions Call your provider Shortness of breath, Vomitting, Excessive diarrhea Patient Instructions You were hospitalized with perforated stomach from ulcer, which related to your baseline HHP. You were also found to have new findings in your liver. Please note that is expecting your in the clinic in 2weeks, you need to have blood draws one day prior to clinic visit. Please advance your diet slowly as your can tolerate Please follow medicine instruction given by surgery team Follow-up Provider: Jovita Moncada MD Follow-up with PCP in: 2 weeks Provider: Jose Sam MD Follow-up in: 2 weeks Viviane oRuse MD Nov 07, 2016 10:10
--- NOTE | 2016-11-07 15:01 | NUR ---
Discharge Pt d/c'd home at aprox 1500. Reviewed d/c instructions w/ patient, all questions answered. Pt left w/ PICC line instructed to wrap in saran wrap for showers. Pt taken to her son's POV via w/c. No complaints of pain at this time. RX sent to pharmacy. Pt left w/ all belongings
--- NOTE | 2016-11-07 16:25 | PROG NOTE ---
[address] [address] PROGRESS NOTE PATIENT: STEWART UREÑA : 1935 MR#: [id number] ADMIT: 10/30/2016 JOB ID: [id number] DATE: 11/07/2016 SUBJECTIVE: The patient is an 80-year-old woman with a history of hereditary hemorrhagic telangiectasia with chronic blood loss from her upper gastrointestinal tract. She was hospitalized last week with severe abdominal pain. CT imaging showed a bowel perforation and she was taken to surgery by Dr. Jovita Moncada, who found a high gastric perforation in the setting of diffuse gastric arteriovenous malformations due to her known HHT. She is recovering well from recent surgical procedure. She remains a bit weak. She is hoping to be discharged in the near future. OBJECTIVE: Vitals: T 36.4, P 94, R 17, BP 113/63, O2 saturation 96% on room air. HEENT: Conjunctivae pale. Mucous membranes moist. No oral lesions. Nodes: No adenopathy in the neck, axilla or groin. Chest: Clear. Cardiac examination: Regular rate and rhythm with normal S1, S2. Abdomen: Soft, nontender, with normoactive bowel tones. Extremities: Extensive muscular wasting. 2+ distal pulses. No calf tenderness. LABORATORIES: WBC 5.9, hemoglobin 7.6, hematocrit 24.7%, MCV 91, platelets 524,000. Sodium 133, potassium 5.7, BUN 14, creatinine less than 0.3, glucose 90. AST 95, ALT 89, alkaline phosphatase 648. ASSESSMENT AND PLAN: 1. Hereditary hemorrhagic telangiectasia: The patient is transfusion dependent. She has a single mutation of the HFE gene, but no evidence of iron overload, likely due to ongoing blood loss. She is anemic, but clinically stable. No definite indication for transfusion support at this time. If she is discharged, please schedule follow[facility] with [facility] with CBC, differential, platelets and iron studies. She may require further transfusion support at that time. 2. Gastric perforation status post surgical repair: The patient underwent surgical repair with Dr. Moncada last week. She will follow up with Dr. Moncada in the outpatient setting. She is a potential candidate for total gastrectomy given her extensive ulcerations and recent perforation, in all likelihood associated with her HHT. However, prior to that, she would need to improve her nutritional status, as she appears quite malnourished at this time.
--- NOTE | 2016-11-07 16:33 | NUR ---
Social Work: Discharge Patient discharging home with Hayley PEREZ. Hayley was notified that patient discharging today. Jacqueline Camejo, BRI, ACM
[2016-12-09] MEDS ORDERED: SUCR1ORA2 PO (10:39)
== END 2016-11-07 14:55 | disposition home health service (06) | DRG 326 ==
LOC: SED 08:38 → EDBD 08:38 → EDUNIT# 08:38 → SAS 13:49 → OSC 19:48
PROVIDERS: ADMIT Surgery; ATTEND Internal Medicine
PROC: 0DU647Z Supplement Stomach with Autologous Tissue Substitute, Percutaneous Endoscopic Approach (ICD-10-PCS; 2016-10-30)
PROC: 0DQ64ZZ Repair Stomach, Percutaneous Endoscopic Approach (ICD-10-PCS; principal; 2016-10-30 15:30)
PROC: 30233N1 Transfusion of Nonautologous Red Blood Cells into Peripheral Vein, Percutaneous Approach (ICD-10-PCS; 2016-11-02)
DX: K25.5 Chronic or unspecified gastric ulcer with perforation (principal); E43 Unspecified severe protein-calorie malnutrition; K65.0 Generalized (acute) peritonitis; Z68.1 Body mass index [BMI] 19.9 or less, adult; D62 Acute posthemorrhagic anemia; I78.0 Hereditary hemorrhagic telangiectasia; K43.9 Ventral hernia without obstruction or gangrene; E03.9 Hypothyroidism, unspecified; D47.3 Essential (hemorrhagic) thrombocythemia; G47.00 Insomnia, unspecified

== ENCOUNTER 2016-11-15 11:08 | Emergency (ER) | payer MEDICARE ==
[~2016-11-15] VITALS: Ht 160 cm; Wt 39.1 kg
[~2016-11-15 11:08] MED LIST changes: +POLY17PO6 PO
[2016-11-15 11:10] VITALS: BP 122/65; PULSE 104; RESP 16; O2SAT 96
[2016-11-15 11:38] VITALS: BP 114/56; PULSE 96; RESP 19; O2SAT 98
[2016-11-15 11:38] LABS: BASOPHILS % (AUTO) 0.3 % (0-3); EOSINOPHILS % (AUTO) 0.2 % (0-5); Mean Corpuscular Hemoglobin 28.8 pg (27.0-35.0); Mean Corpuscular Volume 90.3 fL (81-100); NEUTROPHILS % (AUTO) 82.7 % (40-74); Platelet Count 639 bil/L (150-400)
[2016-11-15 11:55] LABS: INR 0.94 ratio
--- NOTE | 2016-11-15 11:57 | ED.REPORT ---
HPI-General Illness Date of Service Nov 15, 2016 ED Provider: Tushar Perea DO The patient is a 80 year old female w/ a hx of hereditary hemophagic telangiectasia who presents to the ED due to lower abdominal pain for the past few days. 2.5 weeks ago she was hospitalized due to an ulcer, she had immediate surgery with Dr. Moncada. Following the surgery, she initially felt great, but has since had increasingly severe abdominal pain. She saw Dr. Moncada last week and was asymptomatic at that time. No further follow-up was deemed necessary and the surgery was felt to be a success. She had an appointment with Dr. Bynum 4 days ago and she had 2 units of blood. She receives transfusions regularly. Her stomach feels upset and mildly painful and she, "feels like she' s going downhill." Black/tarry stools are normal for her and she confirms nausea and slight diarrhea yesterday. She has been taking Tylenol at home. She denies vomiting, chest pain, SOB, cough, lightheadedness, and dizziness. Nursing Notes Stated Complaint: ABDOMINAL PAIN Chief Complaint: Female Abdominal Pain Nursing Notes Reviewed: Yes Allergies: Coded Allergies: No Known Allergies (Verified , 11/15/16) Scheduled Norethindrone/Eth Estradiol (Zenchent) 1 Each Tablet 1 TABLET PO DAILY Pantoprazole DR (Pantoprazole DR) 40 Mg Tablet.dr 40 MG PO BIDAC Polyethylene Glycol 3350 (Miralax) 17 Gm Powd.pack 17 GM PO DAILY Thyroid,Pork ([place] Thyroid) 90 Mg Tablet 90 MG PO DAILY Scheduled PRN Ondansetron ODT (Zofran ODT) 4 Mg Tablet 4 MG PO Q4H PRN PRN For Nausea General Time Seen by MD: 11:30 Chief Complaint Abdominal pain Hx Obtained From: Patient Arrived By: Walk-in Sudden in Onset?: Yes Onset Occurred: 2 days ago Symptom Duration: Since onset Location: : Abdomen Quality: Painful Severity: Current: Moderate Recent Healthcare: Recent doctor visit, Recent hospitalization, Previous surgery Similar Sx Previous: Yes Past Medical History Past Medical History Notes: GI: Dr. Sam Past Medical History 1. Ulcerated gastroesophageal junction. 2. Irregular gastroesophageal junction. 3. Gastric and duodenal hereditary hemorrhagic telangiectasia. 4. Hypothyroidism 5. Malnutrition 6. 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 and resulting in constipation 7. Upper GI bleed transferred to [facility] for cryotherapy Past Surgical History One lobe thyroidectomy Upper endoscopy Family History Noncontributory Smoking History Never Smoker Social History Other Social History: Good social support, From out of town Ambulatory Status Independent Review of Systems Full Review of Systems Respiratory: Denies: Non-productive cough, Shortness of breath Cardiovascular: Denies: Chest pain GI: Reports: Abdominal pain, Bloody/tarry stool, Diarrhea, Nausea, Denies: Vomiting Female: Denies: Dysuria Neurologic: Denies: Dizziness, Lightheaded Complete sys rev & neg: except as marked. Physical Exam Vital Signs Initial VS: Reviewed Head / Eyes: Atraumatic, Normocephalic, PERRL ENT: Mucous membranes moist, Conjunctiva normal, No scleral icterus Neck: Supple, Non-tender, Full range of motion Respiratory: Breath sounds normal, Clear to auscultation, No respiratory distress Extremities: Vascular intact, Neuro intact, No swelling, No tenderness General/Constitutional: Awake, Cooperative, Not toxic appearing Cardiovascular: Heart rate NL, Regular rhythm, No gallop, No murmurs, No rubs Heart Sounds / Murmur: Positive: Murmur present... (II/, left lower sternal border) Abdomen: Atraumatic, Soft, No guarding, No rebound mild periumbilical tenderness w/ palpation Interpretation & Diagnostics Lab Results Interpretation Test 11/15/16 11:20 White Blood Count 9.0th/mm3 (3.8-10.1) Red Blood Count 3.30mil/mm3 (3.90-5.20) Hemoglobin 9.5g/dL (12.0-15.6) Hematocrit 29.8% (35.0-46.0) Mean Corpuscular Volume 90.3fL (81-100) Mean Corpuscular Hemoglobin 28.8pg (27.0-35.0) Mean Corpuscular Hemoglobin Concent 31.9% (32.0-37.0) Red Cell Distribution Width 16.3% (12.3-15.4) Platelet Count 639bil/L (150-400) Neutrophils (%) (Auto) 82.7% (40-74) Lymphocytes (%) (Auto) 6.5% (14-46) Monocytes (%) (Auto) 10.0% (4-12) Eosinophils (%) (Auto) 0.2% (0-5) Basophils (%) (Auto) 0.3% (0-3) Prothrombin Time 10.0sec (8.1-12.5) Prothromb Time International Ratio 0.94ratio Sodium Level 131mEq/L (134-144) Potassium Level 4.1mEq/L (3.5-5.2) Chloride Level 96mEq/L (97-108) Carbon Dioxide Level 20mmol/L (18-29) Blood Urea Nitrogen 9mg/dL (8-27) Creatinine < 0.30mg/dL (0.57-1.00) Estimat Glomerular Filtration Rate 305mL/min (>59) Glucose Level 115mg/dL (60-99) Calcium Level 9.0mg/dL (8.5-10.1) Total Bilirubin 1.1mg/dL (0.0-1.2) Aspartate Amino Transf (AST/SGOT) 30U/L (0-50) Alanine Aminotransferase (ALT/SGPT) 32U/L (0-32) Alkaline Phosphatase 590U/L (25-165) Total Protein 6.0g/dL (6.4-8.4) Albumin 2.8g/dL (3.4-5.0) Hold [place] Top Tube Received (Received) ECG Interpretation ECG Interpretation: Left axis deviation Unchanged from 09/07/16 except for some artifact in V4 Time: 11:35 Interpreted by: ED physician Normal ECG Interpretation: Normal sinus rhythm (93) Re-Eval/Medical Decision Med Decision/Clinical Course 80-year-old female with a history of GI bleed and recent stomach ulcer repair by Dr. Moncada presents with a sensation of epigastric pain and nausea. She continues to have dark black stools but this is nothing new for her. She needs transfusions regularly and had one just several days ago getting approximately 2 units of blood. Her hemoglobin was 5.9 and today returns at 9.5 her other labs are near baseline which is reassuring to the patient. Her pain resolved with a GI cocktail and Zofran. She is currently taking Protonix twice daily. She has a supply of sucralfate at home which she has taken before with significant relief. I suggested that she add the sucralfate to her Protonix and use Zofran as needed for nausea. She has follow-up scheduled with her doctor on Friday in 3 days. Time of Eval: 14:52 Patient Status: Condition unchanged Re-Evaluation/Progress Note: Pt rechecked. Hemoglobin is normal, some elevation of your alkaline phosphatase, potassium is normal. Plan to try a GI cocktail to help with pain. Counseled Regarding: Diagnosis, Lab results, Need for follow-up, When/why to return to ED Discharge & Departure Primary Impression: Abdominal pain Abdominal location: unspecified location Qualified Code: R10.9 - Unspecified abdominal pain Additional Impressions: Gastritis Hereditary hemorrhagic telangiectasia Chronic anemia Disposition: Home Discharge Condition All VS Reviewed: Yes Condition: Improved Patient Instructions: Gastritis (ED) Additional Instructions: There is no dangerous cause for your symptoms identified today and your pain improved significantly with a GI cocktail. Please continue your Protonix and add sucralfate 3 times daily. You can use Zofran as needed for nausea and a prescription is prescribed today. Follow up with Dr. Bynum as scheduled on Friday and also with your regular doctor in the next week. If you continue to have stomach problems you should make an appointment with Dr. Moncada. Return to the Emergency Department for any new or worsening symptoms. I am glad you feel better now Referrals: Macy Baird MD (PCP) Scribe Attestation Portion of this note were transcribed by Mary Lopez. Dr. Brit Gallardo, personally performed the history, physical exam, and medical decision-making: I reviewed and confirmed the accuracy for the information in the transcribed note. Signed by: lon Schneider, 11/15/16 1500 copies to: Macy Baird MD, Gary R DO Nov 15, 2016 11:57 Mary Lopez Nov 15, 2016 12:25 Scribe Attestation Portion of this note were transcribed by Mary Lopez. Dr. Brit Gallardo, personally performed the history, physical exam, and medical decision-making: I reviewed and confirmed the accuracy for the information in the transcribed note. Signed by: lon Schneider, 11/15/16 1500 copies to: Macy Baird MD, Gary R DO Nov 15, 2016 11:57 Mary Lopez Nov 15, 2016 12:25
[2016-11-15 13:19] VITALS: BP 118/82; PULSE 93; RESP 20; O2SAT 98
[2016-11-15 15:00] VITALS: BP 110/45; PULSE 88; RESP 14; O2SAT 96
[2016-11-15] MEDS ORDERED: LidocaineVisc 2%:Antacid 1:1 10 mL Syringe PO ONE (15:00)
[2016-11-15] MEDS ORDERED: Ondansetron 8 mg ODT Tablet PO ONE (15:40)
[2016-11-15] MEDS ORDERED: ONDA4TAB9 PO (16:17)
[2016-11-15 16:37] VITALS: BP 118/42; PULSE 92; RESP 19; O2SAT 97
[2016-12-09] MEDS ORDERED: SUCR1ORA2 PO (10:39)
== END 2016-11-15 16:38 | disposition home or self-care (01) ==
LOC: SED 11:08
DX: R10.13 Epigastric pain (principal); K29.70 Gastritis, unspecified, without bleeding; I78.0 Hereditary hemorrhagic telangiectasia; D50.0 Iron deficiency anemia secondary to blood loss (chronic); E03.9 Hypothyroidism, unspecified; Z98.890 Other specified postprocedural states

== ENCOUNTER 2016-11-27 18:57 | Emergency (ER) | payer MEDICARE ==
[~2016-11-27] VITALS: Ht 160 cm; Wt 36.4 kg
[~2016-11-27 18:57] MED LIST changes: +ONDA4TAB9 PO
[2016-11-27 19:14] VITALS: BP 113/68; PULSE 100; RESP 18; O2SAT 96
--- NOTE | 2016-11-27 21:07 | ED.REPORT ---
HPI-Abd Pain F 40 and Over Date of Service Nov 27, 2016 ED Provider: Jose Hinojosa MD An 80 year old female with a medical history including hereditary hemorrhagic telangiectasia, uterine fibroid mass, upper GI bleed, and recent gastric perforation s/p laparoscopic closure with omental patch and washout (10/31/16) presents to the ED accompanied by her daughter reporting intermittent RLQ abdominal pain onset a couple of days ago. The pain is rated 7/10. Associated symptoms include generalized myalgias, loss of appetite, generalized weakness, and constipation (last normal BM one week ago). The patient also reports black stool, which is her baseline. She denies dysuria, fever, trouble breathing, chest pain, nausea, vomiting, diarrhea, or other symptoms. The patient has been taking Ibuprofen with short term relief. She has a PICC line in place for her usual blood transfusions. The patient was in the ED on 11/15/16 with lower abdominal pain and gastritis. Nursing Notes Stated Complaint: RT SIDE PAIN Chief Complaint: Female Abdominal Pain Nursing Notes Reviewed: Yes Allergies: Coded Allergies: No Known Allergies (Verified , 11/27/16) Scheduled Norethindrone/Eth Estradiol (Zenchent) 1 Each Tablet 1 TABLET PO DAILY Pantoprazole DR (Pantoprazole DR) 40 Mg Tablet.dr 40 MG PO BIDAC Polyethylene Glycol 3350 (Miralax) 17 Gm Powd.pack 17 GM PO DAILY Thyroid,Pork ([place] Thyroid) 90 Mg Tablet 90 MG PO DAILY Scheduled PRN Ondansetron ODT (Zofran ODT) 4 Mg Tablet 4 MG PO Q4H PRN PRN For Nausea General Time Seen by MD: 21:02 Chief Complaint Abdominal pain Hx Obtained From: Patient Arrived By: Walk-in Sudden in Onset?: No Onset Occurred: 2 days ago ("A couple") Symptom Duration: Intermittent Location: : RLQ Quality: Painful Severity: Current: Moderate Severity: Maximum: Moderate Associated with: Reports: Constipation, Denies: Chest pain, Diarrhea, Dysuria, Nausea, Vomiting Relieved by: OTC medications (Short-term) Context Related History: Reports: Abdominal surgery Recent Healthcare: Recent doctor visit Similar Sx Previous: Yes Past Medical History Past Medical History Notes: GI: Dr. Sam Past Medical History 1. Ulcerated gastroesophageal junction. 2. Irregular gastroesophageal junction. 3. Gastric and duodenal hereditary hemorrhagic telangiectasia. 4. Hypothyroidism 5. Malnutrition 6. 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 and resulting in constipation 7. Upper GI bleed transferred to [facility] 8. 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 Past Surgical History One lobe thyroidectomy Upper endoscopy Laparoscopic closure of anterior gastric perforation with omental patch and washout (10/31/16) Family History Noncontributory Smoking History Never Smoker Social History Other Social History: Good social support, From out of town Ambulatory Status Independent Review of Systems + Loss of appetite - Trouble breathing Constitutional: Reports: Weakness - generalized, Denies: Fever Respiratory: Denies: Non-productive cough, Shortness of breath Cardiovascular: Denies: Chest pain GI: Reports: Abdominal pain (Intermittent RLQ), Bloody/tarry stool (At baseline ), Constipation (Last normal BM one week ago), Denies: Diarrhea, Nausea, Vomiting Female: Denies: Dysuria Musculoskeletal: Reports: Myalgia (Generalized) Complete sys rev & neg: except as marked. Physical Exam Vital Signs Vital Signs (First) Date Time Temp Pulse Resp B/P Pulse Ox O2 Delivery O2 Flow Rate FiO2 11/27/16 19:14 37.7 100 18 113/68 96 Room Air Initial VS: Reviewed Head / Eyes: Atraumatic, Normocephalic Skin: Warm, Dry Neurologic: Alert, Oriented, Nonfocal Psychiatric: Mood/affect normal, Behavior normal, Normal thought content General/Constitutional: Awake, Alert Respiratory / Chest: Breath sounds NL, Breath sounds = bilat, No respiratory distress Cardiovascular: Heart rate NL, Regular rhythm Heart Sounds / Murmur: Positive: Systolic murmur present.. (III/, left lower sternal border) Abdomen: No guarding, No rebound, BS normoactive Tenderness/Guarding/Rebound: Positive: Tender periumbilical (Right) No organomegaly Back: Atraumatic, No CVA tenderness ENT: Airway patent, Mucous membranes moist No stool in vault Melena present which is baseline Interpretation & Diagnostics Lab Results Interpretation Result Diagram: 11/27/16 2100 11/27/16 2100 Test 11/27/16 21:00 11/27/16 21:20 White Blood Count 14.6th/mm3 (3.8-10.1) Red Blood Count 3.28mil/mm3 (3.90-5.20) Hemoglobin 9.5g/dL (12.0-15.6) Hematocrit 29.8% (35.0-46.0) Mean Corpuscular Volume 90.9fL (81-100) Mean Corpuscular Hemoglobin 29.0pg (27.0-35.0) Mean Corpuscular Hemoglobin Concent 31.9% (32.0-37.0) Red Cell Distribution Width 16.4% (12.3-15.4) Platelet Count 503bil/L (150-400) Neutrophils (%) (Auto) 85.2% (40-74) Lymphocytes (%) (Auto) 4.3% (14-46) Monocytes (%) (Auto) 10.0% (4-12) Eosinophils (%) (Auto) 0.1% (0-5) Basophils (%) (Auto) 0.2% (0-3) Sodium Level 135mEq/L (134-144) Potassium Level 3.9mEq/L (3.5-5.2) Chloride Level 98mEq/L (97-108) Carbon Dioxide Level 20mmol/L (18-29) Blood Urea Nitrogen 13mg/dL (8-27) Creatinine 0.33mg/dL (0.57-1.00) Estimat Glomerular Filtration Rate 273mL/min (>59) Glucose Level 103mg/dL (60-99) Lactic Acid Level 0.9mmol/L (0.4-2.0) Calcium Level 9.5mg/dL (8.5-10.1) Magnesium Level 1.9mg/dL (1.6-2.6) Total Bilirubin 1.1mg/dL (0.0-1.2) Aspartate Amino Transf (AST/SGOT) 46U/L (0-50) Alanine Aminotransferase (ALT/SGPT) 28U/L (0-32) Alkaline Phosphatase 639U/L (25-165) Total Protein 6.5g/dL (6.4-8.4) Albumin 3.2g/dL (3.4-5.0) Lipase 19U/L (13-60) Hold [place] Top Tube Received (Received) Urine Color Dark yellow (YELLOW) Urine Appearance Cloudy (CLEAR,HAZY) Urine pH 5.0 (5.0-8.0) Urine Specific [place] 1.030 (1.003-1.035) Urine Protein Negativemg/dL (NEG,TRACE) Urine Glucose (UA) Negativemg/dL (NEGATIVE) Urine Ketones 15mg/dL (NEGATIVE) Urine Occult Blood Trace (NEGATIVE) Urine Nitrite Negative (NEGATIVE) Urine Bilirubin Moderate (NEGATIVE) Urine Ictotest Positive (Negative) Urine Urobilinogen 2.0mg/dL (NORMAL) Urine Leukocyte Esterase Trace (NEGATIVE) Urine RBC 0-2/hpf (0-2) Urine WBC 11-50/hpf (0-5) Urine Epithelial Cells Many/hpf (NONE-MOD) Urine Crystals None seen (NONE SEEN) Urine Bacteria Many/hpf (NONE-FEW) Urine Hyaline Casts None/lpf (NONE) Urine Granular Casts None seen (NONE SEEN) Urine Waxy Casts None seen (NONE SEEN) Urine Red Blood Cell Casts None seen (NONE SEEN) Urine White Blood Cell Casts None seen (NONE SEEN) Urine Mucus Present (None Seen) Urine Trichomonas None seen (NONE SEEN) Urine Yeast None (NONE SEEN) Urinalysis Comment None Urine Culture Reflexed Indicated CT Abd / Pelvis Interpretation CONCLUSION: Appendix not identified, however no secondary signs of acute appendicitis are seen. Abundant stool throughout the colon consistent with constipation. Low attenuation masses arising from the fundus of the uterus and the right aspect of the uterus, likely representing degenerating leiomyomas. 8 cm cystic mass within the right hepatic lobe with diffuse infiltrated disease is suspicious for a neoplastic process. Followup is recommended. Transmitted to ED at 11/28/2016 - 12:10:37 AM PDT Study type: Abdominal CT IV contrast, Abdom CT oral contrast Interpretation / Wet Read by: Interpret - Radiologist (Juanjo Roberts M.D.) Re-Eval/Medical Decision Med Decision/Clinical Course R maximino-umbilical abdominal pain. Appendix not visualized, no secondary signs. pt states no BM approx 1 week, no stool in valult. Does have mild leukocytosis, urine not impressive and no urinary sympotms. Pain may be related to heaptic disease, this cannot be proved ar present. Reliable patient with good support. Will try treatment of constipation, pt advised to reurtn if not getting better. Source of Hx: Old records Re-Evaluation/Progress #1: Time of Eval: 00:54 Patient Status: Condition improved Re-Evaluation/Progress Note: Discussed with patient CT results. She is still constipated. Re-Evaluation/Progress #2: Time of Eval: 01:00 Patient Status: Condition improved Re-Evaluation/Progress Note: Rectal exam performed. Discussed treatment of constipation. Try magnesium citrate in the morning. Discussed with patient CT and lab results, diagnosis, and plan for discharge. Follow-up and return to the ER instructions given. Patient agrees with plan for care and all questions were addressed. Counseled Regarding: Diagnosis, Lab results, Need for follow-up, When/why to return to ED Discharge & Departure Primary Impression: Abdominal pain Abdominal location: periumbilical Qualified Code: R10.33 - Periumbilical pain Additional Impression: Constipation Constipation type: unspecified constipation type Qualified Code: K59.00 - Constipation, unspecified Disposition: Home Discharge Condition All VS Reviewed: Yes Condition: Improved Patient Instructions: Acute Abdominal Pain (ED) Additional Instructions: Emergency department evaluation today included a becoming examination, labs and CT abdomen and pelvis. Past records were reviewed. No serious cause for abdominal pain is identified. The appendix was not seen on CT so appendicitis has not been definitively excluded however based on examination and the lack of other signs of appendicitis on CT it is felt to be unlikely. Constipation is noted to be present and excessive stool is seen on CT. We recommend using magnesium citrate, take a half bottle in the morning. If not stooling by mid afternoon, can drink the other one half bottle. Return to emergency department for increasing abdominal pain uncontrolled vomiting fevers or shaking chills. Follow with primary care next week. Referrals: Macy Baird MD (PCP) Kush Attestation Portions of this note were transcribed by Aysha Bowman. I, Dr. Hinojosa, personally performed the history, physical exam, and medical decision-making; I reviewed and confirmed the accuracy of the information in the transcribed note. Signed by: Kush Watts, 11/28/2016, 01:10 copies to: Macy Baird MD, Donald L MD Nov 27, 2016 21:07 AYSHA BOWMAN Nov 27, 2016 21:15
[2016-11-27 21:09] LABS: BASOPHILS % (AUTO) 0.2 % (0-3); EOSINOPHILS % (AUTO) 0.1 % (0-5); Mean Corpuscular Volume 90.9 fL (81-100); NEUTROPHILS % (AUTO) 85.2 % (40-74); Platelet Count 503 bil/L (150-400)
[2016-11-27] MEDS ORDERED: HYDROmorphone 0.5 mg/0.5 mL iSecure Syringe IVPUSH PRN (21:20)
[2016-11-27] MEDS ORDERED: Ondansetron 2 mg/mL 2 mL Inj IVPUSH PRN (21:20)
[2016-11-27] MEDS ORDERED: 0.9% Sodium Chloride 1,000 ML IV ONE (21:20)
[2016-11-27 21:28] LABS: Magnesium 1.9 mg/dL (1.6-2.6)
[2016-11-27 22:17] LABS: APPEARANCE,URINE CLOUDY (CLEAR,HAZY); COLOR,URINE DARK YELLOW (YELLOW)
[2016-11-27 22:18] LABS: OCCULT BLOOD,URINE TRACE (NEGATIVE)
[2016-11-27 22:23] LABS: ICTOTEST,URINE POSITIVE (Negative)
[2016-11-27] MEDS ORDERED: Iohexol 300 mg/mL 30 mL Inj PO ONE (22:30)
[2016-11-28 01:32] VITALS: BP 142/51; PULSE 92; RESP 21; O2SAT 94
--- NOTE | 2016-11-28 09:04 | DRSVH ---
PROCEDURE: CT ABDOMEN AND PELVIS WITH CONTRAST ([id number]) INDICATIONS: R lq abd pain TECHNIQUE: After the administration of oral and intravenous contrast, 5 mm thick sections acquired from the diap hragms to the symphysis. 5 mm thick coronal and sagittal reformats were performed. For radiation do se reduction, the following was used: automated exposure control, adjustment of mA and/or kV accordi ng to patient size. COMPARISON: [facility], CT, CT ABD HEPATIC PROTOCOL, 11/06/2016, 18:02. [facility], CT, CT ABD PELVIS W CON, 10/30/2016, 12:32. FINDINGS: Image quality: Excellent. ABDOMEN: Lung bases: No change in 6 mm diameter subdural nodule within the left lung base posterolaterally. L nicole bases are otherwise clear. Heart size is normal. Solid organs: Liver is enlarged, measuring 19.6 cm craniocaudal, and demonstrates multiple regions o f hypervascularity within the right hepatic lobe, as well as the lateral segment left hepatic lobe, a s before, suggestive of arteriovenous malformations. As before, there is a site of direct communicati on between the hepatic and portal venous vasculature within the right hepatic lobe, indicating shunti ng. Diffuse heterogeneous hyperenhancement within the hepatic parenchyma is present, as before, also compatible with shunting phenomenon. The previously seen cystic mass within the right hepatic lobe in feriorly which measured roughly 40 mm on the prior examination has increased in size, currently measu ring 65 mm. The previously seen smaller adjacent cystic focus more inferiorly within the right hepati c lobe is slightly decreased, measuring 27 mm. These masses demonstrate new peripheral enhancement, w hich may indicate abscess, or neoplasm. Gallbladder is within normal limits. Biliary system is non-d ilated. Pancreas enhances normally. No adrenal nodules. Kidneys are normal in size and enhancement , without hydronephrosis. Peritoneum and bowel: Large amount of colonic stool is present. Stomach, small bowel, and colon loop s are otherwise normal in caliber and wall thickness. No free fluid or air. Normal appendix. Nodes and vessels: No retroperitoneal or mesenteric adenopathy. Aorta and inferior vena cava are no rmal in caliber. 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 Scattered portosystemic collateral vessels are present. Prominent left ovarian venous varices wit hin the left adnexa are present, as before. Miscellaneous: No ventral hernias. PELVIS: Genitourinary: Bladder wall thickness is normal. As before, there is marked enlargement of the uter us, with a subserosal, avidly enhancing 10.8 cm diameter mass within the posterior mid uterus. 20 mm diameter exophytic mass protrudes anteriorly from the right anterior uterus, as before. Miscellaneous: No inguinal hernias or adenopathy. Bones: N moderate rightward curvature of the upper lumbar spine. Mild leftward curvature of the lowe r lumbar spine. o suspicious bony lesions. No vertebral body compression fractures. IMPRESSION: 1. No acute process. No explanation for right lower quadrant abdominal pain. 2. Normal appendix. 3. 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 There is associated evidence of portal hypertension with portosys temic collateral vessels. 4. Increased cystic focus within the right hepatic lobe. Given the rapid interval increase in size, f inding may represent an abscess, or neoplasm. 5. 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 6. No change in 6 mm diameter left lung base nodule; followup is recommended as below. 7. Large amount of colonic stool. 8. Multiple uterine fibroids. 9. Findings discussed with Dr. Mclaughlin on 11.28.16 at 09:14 hours. Fleischner Society criteria for SOLID lung nodule followup. Nodule size (mm)Low-risk patientHigh-risk patient<6 (single or multiple)No routine followup.Optional CT at 12 months. 6-8 (single or multiple)CT at 6-12 months, then optional CT at 18-24 mo.CT at 6-12 m onths, then CT at 18-24 months. >8 (single)CT, PET-CT, or biopsy at 3 months. Same as for low-risk p ts. >8 (multiple)CT at 3-6 months, then optional CT at 18-24 mo.CT at 3-6 months, then CT at 18-24 m onths. Recommendations do not apply to lung cancer screening, patients with immunosuppression, or patients w ith known primary cancer. Dictated by: Junito Cardozo M.D. on 11/28/2016 at 8:31 Transcribed by: JOEL on 11/28/2016 at 9:03 Approved by: Junito Cardozo M.D. on 11/28/2016 at 9:15
[2016-12-09] MEDS ORDERED: SUCR1ORA2 PO (10:39)
== END 2016-11-28 01:20 | disposition home or self-care (01) ==
LOC: SED 19:16
DX: R10.33 Periumbilical pain (principal); K59.00 Constipation, unspecified; E03.9 Hypothyroidism, unspecified; Z98.890 Other specified postprocedural states
CPT/HCPCS: 36415; 74177; 80053; 81000; 83605; 83690; 83735; 85025; 87086; 87088; 96361; 96374; 96375; 99285; J1170; J2405; J7030; Q9967

== ENCOUNTER 2016-12-16 22:11 | Inpatient (IN) | payer MEDICARE ==
[~2016-12-16] VITALS: Ht 160 cm; Wt 40.6 kg
[~2016-12-16 22:11] MED LIST changes: +SUCR1ORA2 PO
[2016-12-16 22:37] VITALS: BP 115/55; PULSE 115; RESP 18; O2SAT 98
[2016-12-16 22:57] VITALS: BP 126/54; PULSE 104; RESP 16; O2SAT 100
--- NOTE | 2016-12-16 23:26 | ED.REPORT ---
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 Patient states that she generally feels unwell and was found to have a fever of 103F prior to arrival. The patient also has an enlarging mass on her liver, which is followed by Dr. Bynum (Oncology). This mass was found to have doubled in size over the course of 2 weeks, with the differential including neoplasm versus abscess. Her last CT scan was on November 27. She was also started on Augmentin after she was found to have a WBC of 20, 000. Patient states that she has only felt worse since starting this antibiotic. Someone was to call the patient to set up a liver biopsy, but she never heard from the proper physician. The patient recently moved from her home to [place], and there is concern that they may have been trying the wrong telephone number. The patient is also scheduled to have an endoscopy tomorrow for evaluation of her hereditary hemorrhagic telangiectasia and recent perforated ulcer on October 30. She denies having hematemesis or bloody stool at this time. The patient however has not had a bowel movement in the past 4 days. She denies dysuria, cough, or any other symptoms. Nursing Notes Stated Complaint: FEVER,MEMORY LOSS, CONFUSION Chief Complaint: Female Abdominal Pain Nursing Notes Reviewed: Yes Allergies: Coded Allergies: No Known Allergies (Verified , 12/16/16) Scheduled Norethindrone/Eth Estradiol (Zenchent) 1 Each Tablet 1 TABLET PO DAILY Pantoprazole (Pantoprazole DR) 40 Mg Tablet.dr 40 MG PO BIDAC Thyroid,Pork ([place] Thyroid) 90 Mg Tablet 90 MG PO DAILY General Time Seen by MD: 23:23 Chief Complaint Abdominal pain Hx Obtained From: Patient, Daughter Arrived By: Walk-in Sudden in Onset?: No Onset Occurred: 5 - 8 hours ago Symptom Duration: Since onset Location: : Abdomen upper Quality: Painful Severity: Current: Severe Severity: Maximum: Severe Recent Healthcare: No recent doctor visit, No recent hospitalization Similar Sx Previous: No Past Medical History Past Medical History Notes: GI: Dr. Sam Oncologist: Dr. Bynum Past Medical History 1. Ulcerated gastroesophageal junction. 2. Irregular gastroesophageal junction. 3. Gastric and duodenal hereditary hemorrhagic telangiectasia. 4. Hypothyroidism 5. Malnutrition 6. 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 and resulting in constipation 7. Upper GI bleed transferred to [facility] 8. 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 Liver mass Past Surgical History One lobe thyroidectomy Upper endoscopy Laparoscopic closure of anterior gastric perforation with omental patch and washout (10/31/16) Family History Noncontributory Smoking History Never Smoker Social History Other Social History: Good social support, From out of town Ambulatory Status Independent Review of Systems Constitutional: Reports: Fever, Malaise Respiratory: Denies: Non-productive cough GI: Reports: Abdominal pain, Constipation, Denies: Bloody/tarry stool, Hematemesis Female: Denies: Dysuria Complete sys rev & neg: except as marked. Physical Exam Vital Signs Vital Signs (First) Date Time Temp Pulse Resp B/P Pulse Ox O2 Delivery O2 Flow Rate FiO2 12/16/16 22:37 37.9 115 18 115/55 98 Room Air Initial VS: Reviewed, Vital signs abnormal Skin: Warm, Dry, No cyanosis Neurologic: Alert, Oriented, Nonfocal Psychiatric: Mood/affect normal, Behavior normal, Normal thought content General/Constitutional: Awake, Alert, No acute distress Distress / Hydration: Positive: Dehydration mild Appearance / Presentation: Positive: Cachectic Respiratory / Chest: Breath sounds NL, Breath sounds = bilat, No respiratory distress, No rales, No rhonchi, No wheezing Cardiovascular: Regular rhythm, Heart sounds NL, No murmurs Heart Rate / Rhythm: Positive: Tachycardia Abdomen: Soft Tender across the upper abdomen, lower abdomen is nontender. Liver is prominently palpable. Back: No CVA tenderness Head / Eyes: Atraumatic, Normocephalic, PERRL ENT: Airway patent Mouth: Positive: Mucous membranes dry Neck: Supple, No JVD Interpretation & Diagnostics Lab Results Interpretation Result Diagram: 12/16/16232412/16/162324 Test 12/16/16 23:25 12/17/16 00:55 Magnesium Level 1.8mg/dL (1.6-2.6) Troponin T < 0.010ug/L (0.0-0.011) Lipase 23U/L (13-60) Procalcitonin 3.69ng/mL (0.00-0.08) Urine Color Nga (YELLOW) Urine Appearance Slightly cloudy Urine pH 5.5 (5.0-8.0) Urine Specific [place] 1.020 (1.003-1.035) Urine Protein Tracemg/dL (NEG,TRACE) Urine Glucose (UA) Negativemg/dL (NEGATIVE) Urine Ketones Tracemg/dL (NEGATIVE) Urine Occult Blood Negative (NEGATIVE) Urine Nitrite Positive (NEGATIVE) Urine Bilirubin Moderate (NEGATIVE) Urine Ictotest Positive (Negative) Urine Urobilinogen 4.0mg/dL (NORMAL) Urine Leukocyte Esterase Negative (NEGATIVE) Urine RBC 0-2/hpf (0-2) Urine WBC 0-5/hpf (0-5) Urine Epithelial Cells Many/hpf (NONE-MOD) Urine Crystals Oxalic acid crystals (NONE Urine Bacteria None/hpf (NONE-FEW) Urine Hyaline Casts None/lpf (NONE) Urine Granular Casts None seen (NONE SEEN) Urine Waxy Casts None seen (NONE SEEN) Urine Red Blood Cell Casts None seen (NONE SEEN) Urine White Blood Cell Casts None seen (NONE SEEN) Urine Mucus Present (None Seen) Urine Trichomonas None seen (NONE SEEN) Urine Yeast None (NONE SEEN) Urine Culture Reflexed Indicated Lab Results Interpretation: Elevated white blood count, anemia CT Abd / Pelvis Interpretation CONCLUSION: Heterogeneous appearing liver with a focal hypodense area noted in the liver measuring up to 14cm in size. Possible considerations include infection and tumor. Pelvic mass in the region of the uterus. While fibroid is a consideration. Other tumor would be difficult to exclude. Findings suggestion of constipation. Cardiomegaly. 5mm left lower pulmonary nodule. Radiologist: Andrea Singh MD 12/17/2016 - 3:49:49 AM PDT Study type: Abdominal CT IV contrast, Abdom CT oral contrast Interpretation / Wet Read by: Interpret - Radiologist Re-Eval/Medical Decision Med Decision/Clinical Course 80-year-old female with a history of a questionable fluid collection in her liver which was possibly an abscess. Outpatient evaluation was pending. She now presents with fever and general malaise. She is found to have an elevated white count and CT scan shows that the fluid collection has increased markedly in size. She was cultured and started on antibiotics. She will be admitted to the hospitalist service for antibiotic treatment and likely interventional radiology procedure later today. Source of Hx: Old records Re-Evaluation/Progress #1: Time of Eval: 01:45 Re-Evaluation/Progress Note: Informed the patient that she will need to have a CT scan of her abdomen. Discussed her lab results. The patient will need to drink oral contrast. Re-Evaluation/Progress #2: Time of Eval: 04:42 Patient Status: Condition improved Re-Evaluation/Progress Note: Informed the patient of the results of the CT scan. She will be admitted to the hospital for further care. Patient understands and agrees with this plan. All questions were addressed. Consultation : Referral / Consult Name: Gladys Fowler DO Consulted With: Hospitalist Call Returned at: 04:25 Wage Hand: Will see patient, Agrees with eval, Agrees with plan, Accepts admit Note: Spoke with Dr. Fowler, hospitalist, who agrees to accept admit. Counseled Regarding: Diagnosis, Lab results, Need for admission Discharge & Departure Primary Impression: Liver mass Additional Impressions: Abdominal pain Abdominal location: upper abdomen, unspecified Qualified Code: R10.10 - Upper abdominal pain, unspecified Leukocytosis Leukocytosis type: unspecified Qualified Code: D72.829 - Elevated white blood cell count, unspecified Hereditary hemorrhagic telangiectasia Disposition: ADMITTED TO HOSPITAL Discharge Condition All VS Reviewed: Yes Condition: Stable Referrals: Macy Baird MD (PCP) Tiffanieibjose Attestation Portions of this note were transcribed by Guerline Kolb. I, Dr. Kam personally performed the history, physical exam and medical decision-making; I reviewed and confirmed the accuracy of the information in the transcribed note. Signed by: Kush Silverman, 12/17/2016 [id number] copies to: Bj Baird MD, Howard L MD Dec 16, 2016 23:26 Guerline Kolb Dec 16, 2016 23:35 Oxalic acid crystals (NONE Urine Bacteria None/hpf (NONE-FEW) Urine Hyaline Casts None/lpf (NONE) Urine Granular Casts None seen (NONE SEEN) Urine Waxy Casts None seen (NONE SEEN) Urine Red Blood Cell Casts None seen (NONE SEEN) Urine White Blood Cell Casts None seen (NONE SEEN) Urine Mucus Present (None Seen) Urine Trichomonas None seen (NONE SEEN) Urine Yeast None (NONE SEEN) Urine Culture Reflexed Indicated CT Abd / Pelvis Interpretation CONCLUSION: Heterogeneous appearing liver with a focal hypodense area noted in the liver measuring up to 14cm in size. Possible considerations include infection and tumor. Pelvic mass in the region of the uterus. While fibroid is a consideration. Other tumor would be difficult to exclude. Findings suggestion of constipation. Cardiomegaly. 5mm left lower pulmonary nodule. Radiologist: Andrea Singh MD 12/17/2016 - 3:49:49 AM PDT Study type: Abdominal CT IV contrast, Abdom CT oral contrast Interpretation / Wet Read by: Interpret - Radiologist Re-Eval/Medical Decision Source of Hx: Old records Re-Evaluation/Progress #1: Time of Eval: 01:45 Re-Evaluation/Progress Note: Informed the patient that she will need to have a CT scan of her abdomen. Discussed her lab results. The patient will need to drink oral contrast. Re-Evaluation/Progress #2: Time of Eval: 04:42 Patient Status: Condition improved Re-Evaluation/Progress Note: Informed the patient of the results of the CT scan. She will be admitted to the hospital for further care. Patient understands and agrees with this plan. All questions were addressed. Consultation : Referral / Consult Name: Gladys Fowelr DO Consulted With: Hospitalist Call Returned at: 04:25 Wage Hand: Will see patient, Agrees with eval, Agrees with plan, Accepts admit Note: Spoke with Dr. Fowler, hospitalist, who agrees to accept admit. Counseled Regarding: Diagnosis, Lab results, Need for admission Discharge & Departure Primary Impression: Liver mass Additional Impressions: Abdominal pain Abdominal location: upper abdomen, unspecified Qualified Code: R10.10 - Upper abdominal pain, unspecified Leukocytosis Leukocytosis type: unspecified Qualified Code: D72.829 - Elevated white blood cell count, unspecified Hereditary hemorrhagic telangiectasia Disposition: ADMITTED TO HOSPITAL Discharge Condition All VS Reviewed: Yes Condition: Stable Referrals: Macy Baird MD (PCP) Scribjose Attestation Portions of this note were transcribed by Guerline Kolb. I, Dr. Kam personally performed the history, physical exam and medical decision-making; I reviewed and confirmed the accuracy of the information in the transcribed note. Signed by: Kush Silverman, 12/17/2016 [id number] copies to: Bj Baird MD, Howard L MD Dec 16, 2016 23:26 Guerline Kolb Dec 16, 2016 23:35
[2016-12-16] MEDS ORDERED: 0.9% Sodium Chloride 1,000 ML IV ONE (23:35)
[2016-12-16 23:41] LABS: BASOPHILS % (AUTO) 0.2 % (0-3); EOSINOPHILS % (AUTO) 0 % (0-5); MONOCYTES % (AUTO) 4.9 % (4-12); Mean Corpuscular Hemoglobin 28.3 pg (27.0-35.0); NEUTROPHILS % (AUTO) 90.5 % (40-74); Platelet Count 416 bil/L (150-400)
[2016-12-16 23:58] LABS: Magnesium 1.8 mg/dL (1.6-2.6)
[2016-12-17] VITALS (13 sets, daily range): BP systolic 97–126; BP diastolic 41–61; PULSE 68–114; RESP 18–22; O2SAT 95–100
[2016-12-17] MEDS: HYDROmorphone 0.5 mg/0.5 mL iSecure Syringe IVPUSH PRN ×2 (00:39→05:25)
[2016-12-17 01:28] LABS: APPEARANCE,URINE SLIGHTLY CLOUDY (CLEAR,HAZY); COLOR,URINE AMBER (YELLOW); OCCULT BLOOD,URINE NEGATIVE (NEGATIVE); PH,URINE 5.5 (5.0-8.0)
[2016-12-17] MEDS ORDERED: Iohexol 300 mg/mL 30 mL Inj PO ONE (01:45)
[2016-12-17 03:57] LABS: ICTOTEST,URINE POSITIVE (Negative)
[2016-12-17] MEDS ORDERED: Piperacillin-Tazo 3.375 Gm Inj 3.375 GM in Dextrose 5% Minibag Plus 50 ML IV ONE (04:30)
--- NOTE | 2016-12-17 04:43 | PCM.HPMED ---
Subjective Date of Service Dec 17, 2016 Primary Provider: Admitting Physician: Primary Care Physician: Macy Baird MD Attending Physician: Admit Status: From the Emergency Department Chief Complaint: Fever and abdominal pain History of Present Illness: This is a very pleasant 80 Y/O F with a Hx of hereditary hemorrhagic telangiectasia, resulting in frequent GI bleeds, hx of multiple blood transfusions on biweekly basis for two years, hx of gastric perforation requiring omental patch on 10/31/2016, chronic constipation secondary to large pelvic mass (likely uterine fibroid), hypothyroidism, and rapidly enlarging liver mass (followed by Dr. Bynum oncology as an outpatient), that has doubled in size in the span of 2 weeks. Patient presented to the ED complaining of upper abdominal pain in a bandlike distribution described as well and achy. Pain is 5 out of 10 at its worst, and 1 out of 10 on IV Dilaudid. Patient states she has been having pain like this on off and on for several weeks. However pain became acutely worse yesterday and has been constant since that time. Patient had subjective fever of 103F prior to arrival in ED. Her last CT scan was on November 27 which showed increasing size of a cystic focus within the right hepatic lobe which may represent abscess versus neoplasm. Patient was seen by Dr. Bynum one week ago and had WBC count of 20,000 and was started on Augmentin. Patient states Augmentin makes her nauseous, she has felt worse and worse on this medication. Patient reports her regular physician is Dr. Macy Baird, who is planned to schedule patient for liver biopsy. The patient now resides at [facility] has a 1 week. The patient is followed by Dr. Ruth for her GI bleeds and is scheduled to have an endoscopy tomorrow. This is for evaluation of her hereditary hemorrhagic telangiectasia and recent perforated ulcer on October 30. The patient has not had a bowel movement in the past 4 days and reports she rarely passes gas. She denies dysuria, cough,, chills, sweats, dysphagia, vomiting, blood in the urine, dysuria, hematochezia, melena. Patient received 1 L of normal saline bolus in the ED. She was placed on Zosyn. Patient had CT of the abdomen and pelvis done in the ED which showed: Heterogeneous appearing liver with a focal hypodense area noted in the liver measuring up to 14 cm in size. Possibly secondary to infection, versus tumor. Pelvic mass the region of the uterus. Possibly referral fibroid versus other tumor mass. Findings suggesting constipation. Left pulmonary nodule measuring 5 mm cardiomegaly. Vital signs in the ED: Temperature 37.9, pulse 115, respiratory rate 18, blood pressure 126/57, with a map of 80, pulse ox 100% on room air. Hemogram showed: White blood cell count was 21.8 with 90.5% neutrophils, H/H was 9.2/28.6, white count 416. Chemistry panel showed sodium 129, potassium 4.7, chloride 95, CO2 19 BUN 11, creatinine 0.32, glucose 114, lactic acid 1.4, total bili 1.6, AST 129, ALT elevated at 58, alkaline phosphatase 850, 1 and 0.010 UA showed: Trace protein, trace ketones, positive nitrite, positive echo test, moderate bilirubin, 2 cassette esterase negative, urine crystals oxalic acid crystals. Urine culture pending Blood cultures 2 are pending Review of Systems: A comprehensive review of systems was conducted and was negative except as mentioned in history of present illness. Allergies Coded Allergies: No Known Allergies (Verified , 12/16/16) Home Medications Norethindrone/Eth Estradiol (Zenchent) 1 Each Tablet 1 TABLET PO DAILY Pantoprazole DR (Pantoprazole DR) 40 Mg Tablet.dr 40 MG PO BIDAC Thyroid,Pork ([place] Thyroid) 90 Mg Tablet 90 MG PO DAILY PMH GI: Dr. Sam Oncologist: Dr. Bynum 1. Ulcerated gastroesophageal junction. 2. Irregular gastroesophageal junction. 3. Gastric and duodenal hereditary hemorrhagic telangiectasia. 4. Hypothyroidism 5. Malnutrition 6. 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 and resulting in constipation 7. Upper GI bleed transferred to [facility] for cryotherapy 8. 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 Liver mass Surgical History One lobe thyroidectomy Upper endoscopy Laparoscopic closure of anterior gastric perforation with omental patch and washout (10/31/16) Family History Patient is adopted and does not know her family history Social History Hx Alcohol Use: Yes ("socially, very rarely") Hx Substance Use: No Hx Tobacco Use: No Smoking Status: Never Smoker Living Arrangement: Alone (patient resides at [facility] as of one week ago) Exam Vital Signs Vital Sign - Last Date Time Temp Pulse Resp B/P Pulse Ox O2 Delivery O2 Flow Rate FiO2 12/17/16 02:58 96 20 126/57 100 Room Air 12/16/16 22:37 37.9 Intake and Output 12/16/16 12/16/16 12/17/16 Cumulative From/Thru 15:00 23:00 07:00 12/16/16 22:37 - 12/17/16 02:57 Intake Total 1000 ml 1000 ml Balance 1000 ml 1000 ml Intake IV Total 1000 ml 1000 ml Exam General: Alert and oriented 3, patient appears very spry and able to respond to questioning and answering all questions, she is a very good historian, patient appears cachectic, lying in bed HEENT: NC/AT, eyes with exophthalmos, equals are equally round, EOMI, neck, soft supple, no adenopathy, no JVD, no masses, no thyromegaly, throat mucous membranes very dry, no erythema. Lungs: Mild crackles heard bilaterally lung bases, no use of accessory muscles of respiration, good air movement, good respiratory effort. Heart: Regular rate and rhythm, rate 3/6 systolic murmur radiating to the carotids murmur, no rub, no click, no distant heart sounds, Abdomen: Soft, somewhat protuberant, nontender to palpation, nondistended, bowel sounds active, no rebound, no guarding, Genitourinary: No CVA tenderness, no suprapubic tenderness, no Arellano catheter, Extremities: Pulses equal and symmetric upper/lower extremity including radial and dorsalis pedis, no edema Neurologic: See neurologically intact, PT in full sentences, no focal neurological signs, [id number], [id number], no pronator drift, no hemineglect. Skin: Very thin, fragile patient has very little subcutaneous fat and appears cachectic. Psychiatric: Mood is cheerful Lab and Diagnostics Result Diagram: 12/16/16232412/16/162324 X-Rays, CTs and MRIs CT Abd / Pelvis Interpretation CONCLUSION: Heterogeneous appearing liver with a focal hypodense area noted in the liver measuring up to 14cm in size. Possible considerations include infection and tumor. Pelvic mass in the region of the uterus. While fibroid is a consideration. Other tumor would be difficult to exclude. Findings suggestion of constipation. Cardiomegaly. 5mm left lower pulmonary nodule. Radiologist: Andrea Singh MD Assessment & Plan # Sepsis, acute, present on admission, active -Vital signs in the ED: Temperature 37.9, pulse 115, respiratory rate 18, blood pressure 126/57, with a map of 80, pulse ox 100% on room air. -Hemogram showed: White blood cell count was 21.8 with 90.5% neutrophils, -Source likely is patient's possible liver abscess as seen on CT -Urine culture pending -Blood cultures 2 are pending -Continue Zosyn -Infectious disease consult today # Acute on chronic upper bandlike abdominal pain, present on admission, active - Likely secondary to patient's large 14 cm liver mass/abscess. - We will continue IV pain medication Dilaudid when necessary # Liver mass versus abscess, present on admission, active - Large 14 cm round hypodense area in the liver as seen on CT abdomen and pelvis. This mass has doubled in size over the past 2 weeks. - Patient was reportedly to be scheduled for liver biopsy by her PCP. - Patient has upper endoscopy scheduled with Dr. Ruth tomorrow for patients recent gastric perforation and history of hereditary telangiectasia. - We will get GI consult regarding present admit. # Leukocytosis, present on admission, active - Vital signs in the ED: Temperature 37.9, pulse 115 , respiratory rate 18, blood pressure 126/57, with a map of 80, pulse ox 100% on room air. - [address] Bynum found to have white blood cell count of 20,000 and was placed on Augmentin - She has failed outpatient treatment on Augmentin - Wbc's 21.8 , PMNs 90.5% - Urine culture pending - Blood cultures 2 are pending - Continue medications Zosyn - We will get infectious disease consult # Dehydration, present on admission, active - Likely patient appears dry and has dry mucous membranes. - Start normal saline maintenance fluids at 100 mL per hour # Cachexia, chronic, present on admission, active - Patient has poor by mouth intake fluid and food - We will get dietitian consult - We will start IV fluids # Chronic constipation secondary to Pelvic mass, present on admission, active - Causing mass effect on the distal colon resulting in chronic constipation - Patient has large masses seen on CT in the pelvic region differential diagnosis is uterine fibroid versus other tumor. # Hypochloremic hyponatremia, present on admission, active - Sodium 129, chloride 95 - Replenish electrolytes - We will start normal saline IV # Transaminitis, chronic, present on admission, active Patient has elevated liver enzymes dating back to August 2016 - She had AST of 161 in early November 2016 - AST 129, ALT 58, alkaline phosphatase 850 - Antibiotics as above - Continue to trend while in-house # Normocytic normochromic Anemia, present on admission, active - Likely secondary to patient's hereditary hemorrhagic telangiectasia - Patient has history of multiple blood transfusions for chronic anemia. - H/H9.2/20.6, MCV 88, MCH 28.3, MCHC 32.2 -Threshold for transfusion is a hemoglobin of 8 # Ulcerated gastroesophageal junction, with history of upper GI bleed. - Pt recently had procedure performed (reports laser treatment of upper GI bleed at [facility]. - Patient has upper endoscopy scheduled with Dr. Ruth tomorrow for patients recent gastric perforation and history of hereditary telangiectasia.. # Irregular gastroesophageal junction. - Scheduled for endoscopy as stated above # Gastric and duodenal hereditary hemorrhagic telangiectasia. 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 CODE STATUS: Full code PCP: Macy Baird GI: Dr. Sam Oncologist: Dr. Bynum DVT PE prophylaxis: SubQ heparin Q8H Contact: [facility] [phone] Pain Evaluation: Adequate Pain Control (on IV Dilaudid) VTE Prophylaxis: Sub-Q Heparin (Unfractionated) Resuscitation Status: CPR: Attempt Resuscitation Attending Statement The patient was seen and examined together with house staff on 12/17/2016 and I agree with the history, exam and plan as outlined in the note above. Pavan Mcmahon DO Dec 17, 2016 04:43 Gladys Fowler DO Dec 23, 2016 21:19
[2016-12-17] MEDS ORDERED: 0.9% Sodium Chloride 1,000 ML IV SCH (05:09)
[2016-12-17] MEDS ORDERED: Alum-Mag Hydrox-Simeth 30 mL Suspension PO PRN (05:10)
[2016-12-17] MEDS ORDERED: Polyethylene Glycol (PEG) 17 Gm Powder PO PRN (05:10)
[2016-12-17] MEDS ORDERED: Ondansetron 2 mg/mL 2 mL Inj IVPUSH PRN (05:10)
[2016-12-17 06:33] LABS: BASOPHILS % (AUTO) 0.2 % (0-3); EOSINOPHILS % (AUTO) 0.1 % (0-5); MONOCYTES % (AUTO) 5.5 % (4-12); Mean Corpuscular Hemoglobin 28.5 pg (27.0-35.0); Mean Corpuscular Volume 86.6 fL (81-100); NEUTROPHILS % (AUTO) 89.9 % (40-74); Platelet Count 375 bil/L (150-400)
[2016-12-17] MEDS: HYDROmorphone 0.5 mg/0.5 mL iSecure Syringe IVPUSH SCH ×6 (06:35→22:35)
--- NOTE | 2016-12-17 06:40 | NUR ---
Admit Pt has [place] from the ED [place] [facility] [place]. Vitals BP: 104/56 P:104 T:38 RR:22. Pt is alert and oriented. Reports no pain. was notified of the vitals. No further orders yet. Has been put on NPO, IV NS running on 100mL/hr. Continuing to monitor.
[2016-12-17] MEDS: 0.9% Sodium Chloride 1,000 ML IV SCH ×3 (06:53→19:30)
[2016-12-17] MEDS: Heparin 5,000 Unit/mL Inj SUBQ SCH ×2 (07:44→15:47)
[2016-12-17] MEDS: Polyethylene Glycol (PEG) 17 Gm Powder PO SCH (07:44)
--- NOTE | 2016-12-17 11:19 | NUR ---
Social Work-initial assessment: Data:See initial assessment. Pt is an 80 y/o female who was admitted on 12/17/16 for hepatic abscess mass with RVR per H&P. Pt's insurance is [employer] and PCP is Macy Baird MD. EMR Reviewed. Pt's readmission score is not available. SW met with ptat bedside to discuss discharge planning, SW role explained. Pt is alert and oriented x3. Pt resides at [facility] with spose where pt remains independent with basic ADLs. Pt uses no DME and drives POV. Pt has history with [facility] and no SNF history. Would prefer [facility] if HH needed again. Pt has completed DPOA/ advanced directive and SW requested a copy of these. Pt has no senior living care or VA benefits. Pt will be inpatient 2-3 more days per morning rounds. Pt's family to provide transport home at discharge. SW provided phone number and plan on white board in room. SW will continue to follow. Assessment:Pt who resides at [facility] with spouse and is independent at baseline. Plan:Pt to likely discharge home via POV r/o HH. SW will continue to follow. SOHAN Russell Addendum: 12/17/16 at 1125 by JACKELYN EUGENE SS Amended: Links added. Addendum: 12/17/16 at 1143 by JACKELYN EUGENE SS SW informed by [facility] that pt resides in assisted living, not independent. SOHAN Russell
--- NOTE | 2016-12-17 11:26 | DRSVH ---
PROCEDURE: CT ABDOMEN AND PELVIS WITH CONTRAST ([id number]) INDICATIONS: abdominal pain, fever, elev WBC TECHNIQUE: After the administration of oral and intravenous contrast, 5 mm thick sections acquired from the diap hragms to the symphysis. 5 mm thick coronal and sagittal reformats were performed. For radiation do se reduction, the following was used: automated exposure control, adjustment of mA and/or kV accordi ng to patient size. COMPARISON: [facility], CT, CT CHEST ABDOMEN PELVIS W CONTRAST, 06/04/2016, 12:[address] [facility], CT, CT ABD HEPATIC PROTOCOL, 11/06/2016, 18:02. [facility], CT, C T ABD PELVIS W CON, 11/27/2016, 23:56. FINDINGS: Image quality: Excellent. ABDOMEN: Lung bases: There is mild appearance of consolidative thickening within the right lower lobe, unchang ed compared to prior exam. Solid organs: The liver continues to demonstrate an abnormal appearance with significant heterogeneou s attenuation within the prominent portion of the right hepatic lobe. Areas of heterogeneity to inclu de previously identified hypervascular foci suggestive of vascular malformations. There are three low attenuation foci in the superior aspect of the right hepatic lobe which become confluent into a sing le low attenuation mass measuring 61 mm AP by 62 mm transverse. It is noted that this has increased i n size over recent prior examinations. As previously identified, there appears to be direct communica tion between the hepatic and portal venous vasculature, indicating vascular shunting within the right hepatic lobe. Gallbladder is contracted and grossly unremarkable. Biliary system is non-dilated. Pancreas enhance s normally. No adrenal nodules. Kidneys are normal in size and enhancement, without hydronephrosis. Peritoneum and bowel: Stomach, small bowel, and colon loops are normal in caliber and wall thickness . No free fluid or air. Moderate stool is present. Nodes and vessels: No retroperitoneal or mesenteric adenopathy. Aorta and inferior vena cava are no rmal in caliber. 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 Miscellaneous: No ventral hernias. PELVIS: Genitourinary: Bladder wall thickness is normal. There is an unchanged appearance of large posterio r inferior pelvic mass with calcification adjacent to the uterus with areas of enhancement. This mian ins most suggestive of fibroid. Miscellaneous: No inguinal hernias or adenopathy. Bones: No suspicious bony lesions. No vertebral body compression fractures. IMPRESSION: 1. Unchanged appearance of consolidative opacity within the right lower lobe possibly representing at electasis. Area of untreated airspace disease such as pneumonia cannot be excluded. 2. Enlarged hepatic hypoattenuating foci as above. Given the appearance over multiple prior exams an d clinical history, findings are concerning for infection or inflammation such as hepatic abscess. Ot her regional stasis as metastatic disease cannot be definitively excluded however. 3. Enhancing heterogeneous appearance of the right hepatic lobe as above as previously identified sug gestive of multiple hepatic vascular malformations. Dictated by: Franca Peace M.D. on 12/17/2016 at 10:52 Approved by: Franca Peace M.D. on 12/17/2016 at 11:25
--- NOTE | 2016-12-17 11:43 | NUR ---
Spoke with nurse at [place] and patient currently resides on the assisted living side with her . Nurse reports patient is independent in all ADLS, patient is also doing own med management as well as her husbands medication management. Nurse reports patient does need some reminders and cueing from time to time. Dorothy is the Motor Room Controller and she will need to come in and do bedside assessment before patient's return. Follow up with Dorothy tomorrow. Updated [employer]LECT[employer] IN[employer]ER
[2016-12-17 11:46] LABS: INR 1.06 ratio
--- NOTE | 2016-12-17 11:57 | NUR ---
Enema per Dr. Ruth two fleets enemas should be done after patient has recovered and is stable from interventional radiology. The fleets enema should be done 60 minutes apart. Addendum: 12/17/16 at 1501 by JULIETTE ORTA RN *Dr Sam
[2016-12-17] MEDS: Piperacillin-Tazo 3.375 Gm Inj 3.375 GM in Dextrose 5% Minibag Plus 50 ML IV SCH ×2 (13:03→20:52)
[2016-12-17] MEDS ORDERED: fentaNYL-PF 50 mCg/mL 2 mL Inj ONE (13:57)
--- NOTE | 2016-12-17 14:05 | NUR ---
off floor pt is transported to CT scan in bed Addendum: 12/17/16 at 1608 by JULIETTE ORTA RN pt transported back from CT. drain placed in liver, draining into a nephrostomy bag. pt is still quite sleeping from procedure. pt states that she is not in pain at the moment. antibiotics running with NS.
--- NOTE | 2016-12-17 14:45 | CONS ---
[address] [address] CONSULTATION REPORT PATIENT: STEWART UREÑA : 1935 MR#: [id number] ADMIT: 12/17/2016 JOB ID: [id number] GASTROENTEROLOGY CONSULTATION: DATE OF SERVICE: 12/17/2016 REQUESTING PROVIDER: Nick Fragoso MD REASON FOR CONSULTATION: Possible liver abscess. HISTORY OF PRESENT ILLNESS: This is an 80-year-old female with longstanding hemorrhagic hereditary telangiectasia who has in essence had an anemia and GI bleeding refractory to conventional therapy including numerous upper endoscopies with APC ablation and even HALO. She was admitted here at our facility back on September 07 and experienced EGD by Dr. Zhang for the hematemesis. He ended up pursuing intervention in the duodenum and the stomach. One of the lesions in the body of the stomach required injection and hemoclip deployment. She was subsequently transferred down to [facility] for further therapeutics. Ultimately, she presented back to our facility on October 30 after waking up that morning with severe abdominal pain. Imaging at that time revealed the presence of a perforation. She did, however, have two cystic masses in the inferior aspect of the right lobe of the liver. It states that these were new since July 2016, but I am not sure I saw scan from July 2016 in regards to the liver, but she did have a CT in May 2016 and there was absolutely no sign of cystic pathology at that time. She continued to demonstrate a large heterogeneous mass in the pelvis consistent with uterine leiomyoma. The perforation in the stomach which was a couple of cm down from the GE junction was repaired by Dr. Moncada. The patient simply has not felt right ever since that admission. She has had slow but progressive deterioration in her mind. She has been having discomfort in the right upper quadrant area much more so in the last several days. She has also additionally had new onset of fevers and chills. CAT scan from November 06 demonstrated these intrahepatics cysts, contained debris. She had multiple intrahepatic portosystemic shunts. She then had a repeat scan on November 28 which showed increased size in the cystic focus in the right lobe concerning for abscess or neoplasm. She was started on antibiotics by Dr. Bynum, but in recent days as above, had progressive symptoms and presented to the hospital late last night. Updated CT imaging shows increased size of the hepatic debris containing cystic lesions. REVIEW OF SYSTEMS: The patient got down to a low of somewhere in the neighborhood of 78-79 pounds. She is up a little since then. She recalls briefly being on TPN around the time of her surgery. She is struggling with tremendous constipation and has not used any enemas. Does seem terribly responsive to MiraLAX. She has seen melena. The last episode was days ago; none recently, but no significant stool output in days. She is not vomiting No significant nausea apart from some medication that she received here in the hospital. She does have early satiety. Otherwise, review is as above. ALLERGIES: No known drug allergies. MEDICATIONS: 1. Pantoprazole 40 mg twice daily. 2. [place]. 3. [place] Thyroid. 4. Ondansetron. 5. MiraLAX. 6. Carafate. 7. Recent addition of Augmentin as above. PAST MEDICAL HISTORY: Hemorrhagic hereditary telangiectasia with numerous interventions as above. Ulcerated gastroesophageal junction, hypothyroid, malnutrition, uterine mass, constipation. Recent surgery for repair of the gastric perforation. She has had one lobe of the thyroid removed. FAMILY HISTORY: Noncontributory. SOCIAL HISTORY: Rare alcohol. Nonsmoker. Lives at [place]. PHYSICAL EXAMINATION: The patient is alert, oriented, appropriate, cooperative, conversational, in no distress. Temperature now at 37.2, earlier this morning it was 38.0. Blood pressure 97/45, breathing 18, pulse 97% on room air. The patient appears cachectic. Lungs are clear bilaterally. Heart regular. No significant peripheral pitting edema. Abdomen is soft, no guarding. Bowel sounds are active. Minimal distention. She had percussion tenderness over the liver. LABORATORY DATA: Platelets 375. INR is still pending from this morning. About a month ago it was 0.94. Liver tests have climbed consistent with space-occupying lesion. Alk phos is now 731, ALT 54, AST 125, bilirubin 1.5. Procalcitonin is elevated 3.69. Sodium 129, potassium 3.9, chloride 98, bicarb 18, BUN 9, creatinine 0.33, glucose 112. Lactate is 0.9. Calcium 8.6. Albumin 2.3. Hemoglobin 8.3, white count 19.1. MCV 86.6. Urinalysis: No evidence of urinary tract infection. Blood cultures are still pending. IMAGING: As above. She additionally has area of either consolidation or atelectasis in the right lower lung field. ASSESSMENT: An 80-year-old female with hereditary hemorrhagic telangiectasia refractory to conventional therapy including APC, HALO, etc. She ultimately developed a perforation of the stomach back in October which was successfully repaired by Dr. Moncada. Interestingly even prior to surgery she had the development of some cystic pathology in the liver at the time of admission. It is difficult to say whether this was related to abscess at that time or whether this was in fact developing biloma or another form of cystic neoplasm. At this point, the patient appears to have transitioned into intrahepatic abscess clinically. I have discussed the case with Dr. Joel in detail. I would recommend the content of the cystic structure; likely abscess, to be sent for cytology, Gram stain, culture sensitivity and bilirubin. If purulence is confirmed, then I would recommend drainage be left in situ. Continue broad-spectrum antibiotics. Await blood culture results. The patient's outpatient elective endoscopy to follow up on her surgery has been canceled for today. There is no sign of acute gastrointestinal bleeding. This should be monitored closely over the course of her admission. In that she is on a substantial amount of opiate to control her right upper quadrant pain symptoms, I would recommend an even more aggressive bowel regimen considering the amount of obstipation clearly present as a consequence of this uterine (possible) fibroid compressing at the level of the rectosigmoid region. Today I would recommend starting out with a couple of Fleet enemas about 60-90 minutes apart. Once the cystic structure in the liver is addressed and ideally draining, I think that re-initiation of smoothie diet with daily MiraLAX would be appropriate. Will continue to follow.
--- NOTE | 2016-12-17 15:27 | NUR ---
NUTRITION ASSESSMENT: Assess: 80 YO F admitted with fever, abd. pain, sepsis and hepatic abscess vs mass. Pt to have CT today. Consult received for malnutrition. RD spoke with pt during past admits on 09/11/16 and 11/05/16 and it appears wt has increased since previous admit. PMHx: Ulcerated gastroesophageal junction, Irregular gastroesophageal junction, Gastric and duodenal hereditary hemorrhagic telangiectasia, Hypothyroid, malnutrition, uterine fibroid. LABS: Reviewed. Na 129, Cr .33, Gu 112, AST 125, ALT 54, Alk Phos 731, Alb 2.3. MEDICATIONS: Reviewed. DIET: NPO GI: No BM noted. SKIN: No issues noted ANTHROPOMETRICS: Current Wt: 41.5 kg (standing scale) Past Admit Wt: 38.5 kg (Bed scale) IBW: 52.3 kg. UBW (November): 54 kg. Severe wt loss noted in past, but wt appears stable with slight increase over the past 3 months. ESTIMATED NEEDS: Malnutrition Calories: 4692-3308 kcal/day (30-35 kcal/kg IBW) Protein: 65-80 g/day (1.2-1.5 g/kg IBW) NUTRITION DIAGNOSIS: 1) Severe malnutrition related to chronic illness as evidenced by variable wt, visible loss of LBM/ fat. 2) Inadequate oral intake related to altered GI function as evidence by early satiety, BMI of 16.2, current NPO diet status. INTERVENTION: 1) Will add ensure to all trays when diet advanced. 2) Pt has received high calorie/high protein education on 09/11/16 and 11/05/16. MONITOR/EVALUATE: Diet advancement / tolerance, labs, weights, nutrition status. Follow per high nutrition risk guidelines.
[2016-12-17 16:18] LABS: Bilirubin, Direct 1.3 mg/dL (0.0-0.3)
--- NOTE | 2016-12-17 16:19 | DRSVH ---
PROCEDURE: CT ABCESS DRAIN PERITONEAL INDICATIONS: possible liver absess COMPARISON: None. Technique: 1. Conscious sedation for [address]-guided hepatic drain placement. The risks and benefits of the procedure were discussed with the patient, consent was obtained, and pl aced on the chart. Conscious sedation and cardiorespiratory monitoring [facility]. 1% lidocaine was used to anesthetize the skin over the area of interest. Under CT guidance, an 18 gauge needle was advanced into the hepatic fluid collection. There was return of a purulent flu id which was sent for laboratory analysis. An 035 wire was advanced through the outer stylet of the n eedle. The needle was removed, and a 10 Maur[place] locking pigtail drain was advanced into the fluid louis ection. Approximately 80 cc purulent fluid was aspirated. The drain was secured in place at the skin with adhesive bandage. FINDINGS: Initial CT demonstrates a large hepatic fluid collection. Final CT image demonstrates appro priate placement locking pigtail drain within this fluid collection. IMPRESSION: 1. Status post CT-guided drain placement for a hepatic abscess. Dictated by: Sadia Joel M.D. on 12/17/2016 at 16:14 Approved by: Sadia Joel M.D. on 12/17/2016 at 16:18
[2016-12-17] MEDS ORDERED: THYR60TA2 PO (17:36)
[2016-12-17] MEDS ORDERED: ONDA4TAB12 PO (17:36)
[2016-12-17] MEDS ORDERED: POLY17PO6 PO (17:36)
[2016-12-17] MEDS ORDERED: PANT20TA2 PO (17:36)
--- NOTE | 2016-12-17 18:02 | NUR ---
pain pt reports pain at the incision site 0.5mg Dilaudid given family in room
--- NOTE | 2016-12-17 20:08 | CONS ---
[address] [address] CONSULTATION REPORT PATIENT: STEWART UREÑA : 1935 MR#: [id number] ADMIT: 12/17/2016 JOB ID: [id number] DATE OF SERVICE: 12/17/[address] Garcia for this timely consult. REASON FOR CONSULTATION: Bacteremic liver abscess. 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 She also has large uterine fibroids and recently has been discovered to have a large and rapidly enlarging liver mass. It was felt that the liver mass was likely an abscess and she was started as an outpatient on Augmentin about a week ago, but the pain in her right upper quadrant and epigastrium has continued to worsen and she has developed ongoing fevers, chills, rigors and sweats in association with severe pain. She thinks this pain may have begun about a week ago, but it was only recognized that she had a rapidly increasing liver mass a couple of weeks ago. The differential diagnosis initially included biloma, tumor or abscess though it has now become quite clear that this is, in fact, an abscess. Just prior to her admission early this morning, the patient had a 103 fever at home which followed a shaking rigor. The patient has now been admitted and after just hours of incubation, her blood cultures are growing gram-negative rods. I have personally reviewed the CT scan of the abdomen both by myself on the computer as well as with Interventional Radiology and the patient was scheduled for drainage of what appears to be hepatic abscess and this was just successfully concluded, and I am just now seeing the patient back on the jimenez with a drain protruding from the right side and purulent material collecting. The patient states that she has always been weak and somewhat fragile on the basis of her chronic anemia and bleeding and that got worse after her surgery on October 31 for the gastric perforation. She never felt completely better after that procedure and two or three weeks ago has started to feel much worse with fevers, chills, weakness, unsteadiness on the feet and increasing right upper quadrant and epigastric pain. An outpatient ultrasound done in late November showed what appeared to be an enlarging cyst versus abscess versus cancer in the liver and she was subsequently noted to have the elevated white count and reported fevers and was started about a week ago on the Augmentin which did not stem the tide. She denies any ongoing sore throat, cough, shortness of breath or chest pain. She has not had diarrhea nor has she had much in the way of nausea and vomiting but she in general has just felt increasingly debilitated almost on a day-by-day basis. PAST MEDICAL HISTORY: 1. Hereditary hemorrhagic telangiectasias. a. Multiple almost innumerable GI bleeds. b. Transfusion-dependent. c. Gastric and duodenal telangiectasias. d. Status post gastric perforation late October, requiring closure of the perforation. 2. Hepatic abscess diagnosed on admission. 3. Hypothyroidism. 4. Uterine fibroid mass. SOCIAL HISTORY: The patient is a nondrinker, nonsmoker at this point. She lives in [place] but only moved there recently because of progressive weakness and before that lived at home with her . FAMILY HISTORY: Patient is adopted and has no known family history. It is worth noting that she adopted one child who, of course, does not have hereditary telangiectasias but her biologic son does have the same disease, and he suffered a brain abscess recently presumably on the basis of this process. REVIEW OF SYSTEMS: Was done. The patient states she has no headache or visual change. No sore throat or odynophagia. She has had no cough, shortness of breath or chest pain. She has had a bit of nausea but no vomiting or diarrhea. She has had progressive and debilitating epigastric and right upper quadrant pain which has steadily worsened over the last three or four weeks since it started. She has innumerable an ongoing GI bleeds which result in melena and/or hematemesis at times. She has noticed progressive weakness and wasting of all four extremities to the point where she is no longer steady on her feet and often is either falling or worrying about falling. No new neurologic symptoms. Remainder of the review of systems is negative. PHYSICAL EXAMINATION: Reveals a wasted, elderly woman. She is currently afebrile but was febrile to 38 degrees earlier this morning. Currently 37. Pulse 92, respiratory rate 18, blood pressure 106/41. She is saturating well on room air. She is in no acute distress but appears very frail. She is alert and oriented and able to ask good questions, however. She has no evidence of head trauma but does have temporal wasting. Examination of the eyes shows pale conjunctivae without scleral icterus. Nose is normal. Oral cavity: No thrush, pharyngitis or hairy leukoplakia. Neck without adenopathy. Lungs quite clear to auscultation. Cardiac tones: Tachycardic with soft 1/6 systolic ejection murmur heard along the left lower sternal border. In the right upper quadrant there is a new drain present. It is draining a chocolate pudding material in quite copious quantities. This is her new abscess drain that was just placed in Interventional Radiology. Her abdomen is nontender except in the right upper quadrant and there there is diffuse tenderness which extends all the way up to the epigastrium. There is a sensation of mass in the right upper quadrant, but it is actually difficult to examine it is so tender. External genitalia normal. No Arellano catheter is present. Extremities: Diffusely wasted to the point of cachexia. The patient has no evidence of cellulitis, but her skin is warm and consistent with having a high fever though her last temperature was not abnormal. She is neurologically intact and she can move everything but her motor strength is poor, at best 4/5 diffusely. No evidence of synovitis or joint abnormalities. LABORATORIES: Include white count 22,000 last night in the ED; this morning 19,000. There is a pronounced left shift. Platelets 375. Creatinine 0.33. AST 125, ALT 54, alk phos 731, procalcitonin 3.69. Urinalysis without white cells. Blood cultures that were done just after midnight were positive within about 12 hours and are growing gram-negative rods in multiple bottles, and it appears that is growing in 4/4 bottles at this point. Urine culture is pending. IMAGING: Includes a CT that was done on admission which I reviewed. It shows a possible right lower lobe atelectatic patch. There is a large and enlarging lesion in the liver which measures just over 6 x 6 cm. This has the appearance of a liver abscess and, of course, now a drain has been placed and it is draining purulent-looking material. There are also numerous hepatic vascular malformation-type lesions seen in the liver. IMPRESSION: This is an unfortunate, elderly woman with hereditary hemorrhagic telangiectasias who has frequent gastrointestinal bleeds that have been largely refractory to medical therapy. She has chronic anemia. In October, she had a perforation of her stomach that required an omental patch and since then has dwindled a bit with the occurrence of increasing right upper quadrant pain, fevers, chills and sweats over the last 2-3 weeks. Imaging done as an outpatient showed an increasing hepatic mass which clearly has turned out to be an abscess. Liver abscesses come in two main forms which would be amoebic and pyogenic. This patient almost certainly has a pyogenic liver abscess, as she has not traveled widely in the last decade. She did have a history of very long distance travel including numerous countries where amoebic liver abscesses are common prior to a decade ago, but we have intervening scans that show this was not an issue until fairly recently. The management of a large pyogenic abscess like this consists of drainage and very long-term antibiotics. Klebsiella is particularly common as the cause of such abscesses and it is certainly a possibility here. Also possible would be Escherichia coli, Proteus or any one of many other common gram negative rods. Anaerobes are always of concern as well and will need to await the final cultures before making a firm decision as to the etiology of this process, but at least we have positive blood cultures to guide us tomorrow. RECOMMENDATIONS: 1. We can continue with Zosyn overnight while we await our culture data. 2. We will probably be looking at a couple of weeks or more of IV therapy and then a transition to oral if there is a good oral agent available for treatment of these gram negative rods. Otherwise, a very long course of IV antibiotics may be indicated. 3. Duration of antibiotic therapy for liver abscesses is not standardized and certainly depends on the clinical course. Some patients may require weeks or months of therapy to achieve resolution. Thank you very much for involving me in this fascinating case.
--- NOTE | 2016-12-17 22:57 | NUR ---
TACHYCARDIA c t tech notified RN of pts HR in 150s. RN sitting outside of pts room. Pt laying in bed. HR sustaining in 150s. RN went into pts room. Pt denies any chest pain, but does state, "I do feel my heart rate beating faster." notified of pts HR, no new orders rec'd at this time, except to monitor for reoccurrence or if pt becomes symptomatic. HR has returned back to 90s, even with activity. Continue to monitor.
[2016-12-18] VITALS (8 sets, daily range): BP systolic 93–107; BP diastolic 52–66; PULSE 76–98; RESP 16–17; O2SAT 95–97
[2016-12-18] MEDS: Heparin 5,000 Unit/mL Inj SUBQ SCH ×4 (00:09→23:21)
[2016-12-18] MEDS: HYDROmorphone 0.5 mg/0.5 mL iSecure Syringe IVPUSH SCH ×7 (02:35→20:41)
--- NOTE | 2016-12-18 03:37 | NUR ---
GI/ENEMAS Pt had 2 fleets enemas administered. Pt was able to hold 1st enema in for a good amt of time. Pt denied urge to defecate or any signs of having to evacuate bowels. Soon after second enema administered, pt needed to sit on BSC almost immediately. Pt did have small amts of stools out. Pt has and continues to pass flatus and belch. Abdomen w/ some distention. BT hypoactive. Pt denies nausea. Continue to monitor. Call light in reach. Bed alarm on. Intentional rounding.
[2016-12-18] MEDS: Piperacillin-Tazo 3.375 Gm Inj 3.375 GM in Dextrose 5% Minibag Plus 50 ML IV SCH ×3 (05:29→20:40)
[2016-12-18 05:57] LABS: BASOPHILS % (AUTO) 0.3 % (0-3); EOSINOPHILS % (AUTO) 0.3 % (0-5); MONOCYTES % (AUTO) 11.5 % (4-12); Mean Corpuscular Hemoglobin 28.3 pg (27.0-35.0); Mean Corpuscular Volume 87.9 fL (81-100); NEUTROPHILS % (AUTO) 79.5 % (40-74); Platelet Count 385 bil/L (150-400)
[2016-12-18 07:02] LABS: Magnesium 1.8 mg/dL (1.6-2.6)
[2016-12-18] MEDS: Polyethylene Glycol (PEG) 17 Gm Powder PO SCH (07:27)
[2016-12-18] MEDS: Pantoprazole 20 mg ER24 Tablet PO SCH ×2 (11:28→17:13)
[2016-12-18] MEDS: 0.9% Sodium Chloride 1,000 ML IV SCH ×2 (12:33→22:35)
--- NOTE | 2016-12-18 15:38 | PCM.PNMED ---
Subjective Date of Service Dec 18, 2016 Subjective reports feeling much better today. denies any nausea, vomiting, diarrhea Exam Vital Signs Vital Sign - Last Date Time Temp Pulse Resp B/P Pulse Ox O2 Delivery O2 Flow Rate FiO2 12/18/16 12:58 37.0 84 16 102/63 97 Room Air Intake and Output 12/17/16 12/17/16 12/18/16 Cumulative From/Thru 15:00 23:00 07:00 12/16/16 22:37 - 12/18/16 05:42 Intake Total 430 ml 623 ml 2053 ml Output Total 525 ml 250 ml 775 ml Balance -95 ml 373 ml 1278 ml Intake Oral 0 ml 150 ml 150 ml IV Total 430 ml 473 ml 1903 ml Output Urine Total 400 ml 200 ml 600 ml Drainage Total 125 ml 50 ml 175 ml # Voids 3 3 # Bowel Movements 0 1 1 General: Alert, Oriented X3, Cooperative, No Acute Distress Head: Normal Eyes: Scleral Anicteric Nose: Mucous Membr Moist/[place] Mouth: Mucous Membr Moist/[place] Neck: Supple Chest & Lungs: Chest Wall Normal, Clear to auscultation & percussion Cardiovascular: Regular Rate/Rhythm Abdomen: Tender (mild at right upper quad), Non-distended, Normoactive bowel tones, Soft, Other (hepatic drain in place) Extremities: No cyanosis/clubbing/edma bilat Neurological: Grossly Neurologically Intact, Normal Speech IVs and Medications Medications Reviewed: Medications were reviewed in detail Lab and Diagnostics Result Diagram: 12/18/16 0530 12/18/16 0530 X-Rays, CTs and MRIs CT Abd / Pelvis Interpretation CONCLUSION: Heterogeneous appearing liver with a focal hypodense area noted in the liver measuring up to 14cm in size. Possible considerations include infection and tumor. Pelvic mass in the region of the uterus. While fibroid is a consideration. Other tumor would be difficult to exclude. Findings suggestion of constipation. Cardiomegaly. 5mm left lower pulmonary nodule. 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 Bynum oncology), that has doubled in size in the span of 2 weeks. Presented to the ED complaining of upper abdominal pain in a bandlike distribution described as well and achy. # Acute sepsis, present on admission, clinically resolved. - Vital signs in the ED: Temperature 37.9, pulse 115, respiratory rate 18, blood pressure 126/57, with a map of 80, pulse ox 100% on room air. - Hemogram showed: White blood cell count was 21.8 with 90.5% neutrophils, - Source likely liver abscess and bacteremia - Further treatment and management as noted below # Acute liver abscess, present on admission. ongoing - Status post CT-guided drain placement for a hepatic abscess on 12/17/[address] Joel (Interventional radiology). consult and assistance is greatly appreciated. - Continue with drain - Followup final culture result - Appreciate ID consult. will followup with recommendations - Continue with IV Zosyn for now # Acute bacteremia, present on admission. Active - Followup final culture results - Antibiotics and ID consult followup as noted above # Liver mass versus abscess, present on admission, active - Appreciate GI consult. will followup with recommendations - Followup cytology result from hepatic drain as well to rule out possible underlying neoplasm contributing to presenting abscess # Leukocytosis, present on admission, resolved - Continue with infectious workup and treatment as noted above # Dehydration, present on admission, improved - Continue with supportive care and followup # Cachexia, chronic, present on admission, active - Patient has poor by mouth intake fluid and food - Followup with dietitian consult # Chronic constipation secondary to Pelvic mass, present on admission, active - Causing mass effect on the distal colon resulting in chronic constipation - Patient has large masses seen on CT in the pelvic region differential diagnosis is uterine fibroid versus other tumor. # Hypochloremic hyponatremia, present on admission, improved - IV fluid and followup # Transaminitis, chronic, present on admission, improving - Continue to trend while in-house # Normocytic normochromic Anemia, present on admission, active - Likely secondary to patient's hereditary hemorrhagic telangiectasia - Patient has history of multiple blood transfusions for chronic anemia. - Threshold for transfusion is a hemoglobin of 8 - Followup daily H/H # Ulcerated gastroesophageal junction, with history of upper GI bleed. - Pt recently had procedure performed (reports laser treatment of upper GI bleed at [facility]. - Appreciate GI consult by Dr. Sam. will followup with recommendations # Irregular gastroesophageal junction. 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, status post laparoscopic surgery with omental patch # Hereditary hemorrhagic telangiectasias - Patient has history of multiple blood transfusions Dispo: 3-5 days VTE Prophylaxis: Sub-Q Heparin (Unfractionated) VTE Mechanical Devices: Venous Foot Pump Resuscitation Status: CPR: Attempt Resuscitation Nick Fragoso Dec 18, 2016 15:38 # 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 CODE STATUS: Full code PCP: Macy Baird GI: Dr. Sam Oncologist: Dr. Bynum DVT PE prophylaxis: SubQ heparin Q8H Contact: [facility] [phone] VTE Prophylaxis: Sub-Q Heparin (Unfractionated) VTE Mechanical Devices: Venous Foot Pump Resuscitation Status: CPR: Attempt Resuscitation Nick Fragoso Dec 18, 2016 15:38
--- NOTE | 2016-12-18 19:19 | PROG NOTE ---
[address] [address] PROGRESS NOTE PATIENT: STEWART UREÑA : 1935 MR#: [id number] ADMIT: 12/17/2016 JOB ID: [id number] DATE: 12/18/2016 REASON FOR FOLLOWUP: Bacteremic liver abscess. INTERVAL HISTORY: Recall that this is the elderly and debilitated woman with hereditary hemorrhagic telangiectasias who presents with a massive right liver abscess. Yesterday, she had a drain placed in the liver abscess which drained copious quantities of thick chocolate-like material. She also was noted yesterday to have rapidly positive blood cultures and we now have further data about those cultures. For her part, the patient feels much better today. She denies fevers, chills, or sweats. No cough, shortness of breath or chest pain. She notes that the right upper quadrant pain which has been so progressive over the past few weeks has started to go backwards, and is already considerably improved after drainage of the abscess. No nausea, vomiting or diarrhea is reported. No skin rash. PHYSICAL EXAMINATION: Reveals an afebrile woman. Temp 36.8, pulse 98, respiratory rate 17, blood pressure 98/58. She is saturating 95% on room air. She is in absolutely no distress. Examination of the patient's mental status reveals it to be clear. Oral cavity without any telangiectasias or notable abnormalities. No thrush. Her lungs are relatively clear bilaterally. Cardiac tones without new murmur though she does have a soft systolic murmur. Her left upper extremity PICC line appears benign. Her abdomen is much less tender in the right upper quadrant than it was yesterday when I first evaluated her, just after the drain was placed. No skin rash noted. LABORATORIES: Include a white count which has abruptly dropped from 20,000 down to 9. Her left shift is also rapidly improving. Creatinine 0.32. Liver function tests include alk phos which has dropped from 700 down to 500. ALT and AST are also dropping commensurate with that. Albumin 1.9. Procalcitonin down to 2.76 which is improved. Micro studies include 4/4 blood cultures growing an E. coli. In speaking to the micro lab, it sounds as if there is a second mucoid gram-negative marco as well in the blood, and I wonder if this could be Klebsiella though we do not know yet. The aspirate from the liver itself has many gram-negative rods and we do not have any substantial growth yet. IMPRESSION: This is an unfortunate woman with longstanding hereditary hemorrhagic telangiectasias and frequent gastrointestinal bleeds. In late October, she had a gastric perforation and required placement of an omental patch. Following that time, she has never really felt well and in late November was discovered to have an enlarging hepatic mass felt to be compatible with liver abscess. She was started on oral antibiotics but got progressively worse until the admission of a couple days ago when positive blood cultures were obtained and then yesterday's drainage of very large liver abscess. At this point, she is dramatically improved. I had been thinking about switching her Zosyn to ertapenem to make sure we cover ESBL E. coli's well as Klebsiella isolates, but in view of her improvement I think we can discontinue with Zosyn until we have susceptibilities tomorrow. RECOMMENDATIONS: 1. Will continue with Zosyn. 2. Tomorrow we should have back susceptibilities and will start to narrow our antibiotics and define at least a preliminary length of therapy. 3. I discussed the PICC line with the PICC team. Though the PICC line was present at the onset of bacteremia, it is highly unlikely it is infected given this is a gram-negative marco infection, and I see no indication at this time to pull the PICC. 4. ID will continue to follow this fascinating case with you.
[2016-12-19] VITALS (8 sets, daily range): BP systolic 100–134; BP diastolic 59–70; PULSE 73–92; RESP 16–18; O2SAT 92–96
[2016-12-19] MEDS: HYDROmorphone 0.5 mg/0.5 mL iSecure Syringe IVPUSH SCH ×5 (01:45→19:17)
--- NOTE | 2016-12-19 02:52 | NUR ---
Shift Note Pt. received scheduled pain medicine with a reports of relief, has been ambulated to the bedside commode with 1 Person extensive assist, Remained in rm during shift,appears to have enough sleep, pleasant and cooperative to staff and care, kept heels floated to promote skin integrity, call light in reach, qhourly rounds, all needs attended.
[2016-12-19] MEDS: Piperacillin-Tazo 3.375 Gm Inj 3.375 GM in Dextrose 5% Minibag Plus 50 ML IV SCH ×3 (05:26→22:18)
[2016-12-19 05:41] LABS: Mean Corpuscular Volume 87.8 fL (81-100)
[2016-12-19] MEDS: Polyethylene Glycol (PEG) 17 Gm Powder PO SCH (08:08)
[2016-12-19] MEDS: Pantoprazole 20 mg ER24 Tablet PO SCH ×2 (08:08→17:15)
[2016-12-19] MEDS: Heparin 5,000 Unit/mL Inj SUBQ SCH (08:09)
[2016-12-19] MEDS: 0.9% Sodium Chloride 1,000 ML IV SCH ×2 (12:01→19:17)
--- NOTE | 2016-12-19 15:26 | PATH ---
SURGICAL PATHOLOGY Attending Physician:Qian Verma CASE STATUS: Signed Out PATIENT NAME: STEWART UREÑA PID: [id number] : 1935 DATE COLLECTED:12/17/2016 00:00 SPECIMEN: Peritoneal fluid CLINICAL HISTORY: Peritoneal fluid No ICD-10 code given FINAL DIAGNOSIS: PERITONEAL FLUID CYTOLOGY: BLOOD CELLS IDENTIFIED. NO CYTOLOGIC EVIDENCE OF MALIGNANCY. ICD10 CODE R18.8 GROSS DESCRIPTION: Received fresh on 12/18/2016 is approximately 3 cc of cloudy brown fluid. Prepared are one cell block, one cytospin, and one ThinPrep slides. vo/hk MICRO DESCRIPTION: Examined are one cell block, one ThinPrep cytology slide, and one cytospin slide. These show peripheral blood cells. No atypical or malignant cells identified. ICD-9 CODES: CPT CODES: 1: 96192, 87623 Electronically Signed Out Marily Chapa MD [facility] [address], [place] [address] Technical component performed at [facility], [address] [place] [address] Ave[address], [place], [address]
--- NOTE | 2016-12-19 15:41 | NUR ---
spiritual care: pt request brief visit. pt uncomfortable and trying to rest
--- NOTE | 2016-12-19 17:57 | PCM.PNMED ---
Subjective Date of Service Dec 19, 2016 Subjective reports continuing to feel better today. denies any nausea, vomiting, diarrhea No events overnight Exam Vital Signs Vital Sign - Last Date Time Temp Pulse Resp B/P Pulse Ox O2 Delivery O2 Flow Rate FiO2 12/19/16 16:19 36.9 73 18 114/65 92 Room Air Intake and Output 12/18/16 12/18/16 12/19/16 Cumulative From/Thru 15:00 23:00 07:00 12/16/16 22:37 - 12/19/16 05:18 Intake Total 658 ml 1823 ml 580 ml 5114 ml Output Total 525 ml 330 ml 1630 ml Balance 658 ml 1298 ml 250 ml 3484 ml Intake Oral 768 ml 100 ml 1018 ml IV Total 658 ml 1055 ml 480 ml 4096 ml Output Urine Total 475 ml 300 ml 1375 ml Drainage Total 50 ml 30 ml 255 ml # Voids 3 1 7 # Bowel Movements 1 2 Exam General: Alert, Cooperative, No Acute Distress Head: Normal Eyes: Scleral Anicteric Nose: Mucous Membr Moist/[place] Mouth: Mucous Membr Moist/[place] Neck: Supple Chest & Lungs: Chest Wall Normal, Clear to auscultation bilaterally Cardiovascular: Regular Rate/Rhythm Abdomen: Tender (mild at right upper quad), Non-distended, Normoactive bowel tones, Soft, Other (hepatic drain in place) Extremities: No cyanosis/clubbing/edema bilat Neurological: Grossly Neurologically Intact, Normal Speech IVs and Medications Medications Reviewed: Medications were reviewed in detail Lab and Diagnostics Result Diagram: 12/19/1625 12/19/16 0525 X-Rays, CTs and MRIs CT Abd / Pelvis Interpretation CONCLUSION: Heterogeneous appearing liver with a focal hypodense area noted in the liver measuring up to 14cm in size. Possible considerations include infection and tumor. Pelvic mass in the region of the uterus. While fibroid is a consideration. Other tumor would be difficult to exclude. Findings suggestion of constipation. Cardiomegaly. 5mm left lower pulmonary nodule. 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 Bynum oncology), that has doubled in size in the span of 2 weeks. Presented to the ED complaining of upper abdominal pain in a bandlike distribution described as well and achy. # Acute sepsis, present on admission, clinically resolved. - Vital signs in the ED: Temperature 37.9, pulse 115, respiratory rate 18, blood pressure 126/57, with a map of 80, pulse ox 100% on room air. - Hemogram showed: White blood cell count was 21.8 with 90.5% neutrophils, - Source likely liver abscess and bacteremia - Further treatment and management as noted below # Acute liver abscess, present on admission. ongoing - Status post CT-guided drain placement for a hepatic abscess on 12/17/[address] Joel (Interventional radiology). consult and assistance is greatly appreciated. - Continue with drain - Culture growing padilla-sensitive E. Coli - Appreciate ID consult. will followup with recommendations - Continue with IV Zosyn for now and further change of antibiotics per ID recs # Acute E. Coli bacteremia, present on admission. Active - Antibiotics and ID consult followup as noted above # Liver mass versus abscess, present on admission, active - Appreciate GI consult. will followup with recommendations - Followup cytology result from hepatic drain as well to rule out possible underlying neoplasm contributing to presenting abscess # Leukocytosis, present on admission, resolved - Continue with infectious workup and treatment as noted above # Dehydration, present on admission, improved - Continue with supportive care and followup # Cachexia, chronic, present on admission, active - Patient has poor by mouth intake fluid and food - Followup with dietitian consult # Chronic constipation secondary to Pelvic mass, present on admission, active - Causing mass effect on the distal colon resulting in chronic constipation - Patient has large masses seen on CT in the pelvic region differential diagnosis is uterine fibroid versus other tumor. # Hypochloremic hyponatremia, present on admission, improved - IV fluid and followup # Transaminitis, chronic, present on admission, improving - Continue to trend while in-house # Normocytic normochromic Anemia, present on admission, active - Likely secondary to patient's hereditary hemorrhagic telangiectasia - Patient has history of multiple blood transfusions for chronic anemia. - Threshold for transfusion is a hemoglobin of 8 - Followup daily H/H # Ulcerated gastroesophageal junction, with history of upper GI bleed. - Pt recently had procedure performed (reports laser treatment of upper GI bleed at [facility]. - Appreciate GI consult by Dr. Sam. will followup with recommendations # Irregular gastroesophageal junction. 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
--- NOTE | 2016-12-19 18:36 | NUR ---
Activity Pt on bedrest for most of the day. 1P assist to BSC. Pt able to bear weight but rickety and weak. Transferred pt to BSC and bed without incident. [id number], heels lifted, and socks on. No near fall incidents during shift.
--- NOTE | 2016-12-19 21:54 | PROG NOTE ---
[address] [address] PROGRESS NOTE PATIENT: STEWART UREÑA : 1935 MR#: [id number] ADMIT: 12/17/2016 JOB ID: [id number] DATE: 12/19/2016 REASON FOR FOLLOWUP: Polymicrobial liver abscess with bacteremia. INTERVAL HISTORY: Today, the patient is celebrating her 81rd birthday with family in her room. She notes she is gradually feeling better. She has less right upper quadrant pain and notes that the drain is now producing much less fluid. She has no fevers, chills, or sweats. No cough. No nausea, vomiting. PHYSICAL EXAMINATION: Reveals an afebrile woman. Temperature 36.6, pulse 76, respiratory rate 17, blood pressure 100/63. She is saturating quite well on room air. Examination of the mental status reveals it to be completely clear. Oral cavity negative. Lungs remain clear. Abdomen increasingly benign with less right upper quadrant pain. Drain is present with output down to about 30 cc the past 24 hours after initially heavy output greater than 100 cc a day. No skin rash present. Tolerating her antibiotics. LABORATORIES: Include white count now down to 6700 from the value of 22,000 earlier. Creatinine is less than 0.3. LFTs are improving with an ALT down to 35. Alk phos still somewhat elevated at 602. Micro studies continue to show E. coli growing from both blood and the abscess, but there is definitely a second organism present in the abscess as well as apparently in one of the blood cultures and this appears to be a Klebsiella though it has been difficult to separate from the E. coli. IMPRESSION: This patient is doing extremely well with her polymicrobial bacteremic liver abscess occurring in the setting of hereditary hemorrhagic telangiectasia disease. We are stuck with relatively broad antibiotics which currently consist of Zosyn until we have back the susceptibilities on the Klebsiella. It may be that the patient's abscess will be amenable to oral therapy with Cipro and Flagyl or perhaps once a day ertapenem, but for now we are proceeding with Zosyn while we wait for susceptibilities. RECOMMENDATIONS: 1. No change in Zosyn therapy. 2. Case discussed with lab and we await the Klebsiella speciation and susceptibility testing.
[2016-12-20] VITALS (8 sets, daily range): BP systolic 109–138; BP diastolic 62–66; PULSE 68–92; RESP 18; O2SAT 93–96
--- NOTE | 2016-12-20 00:30 | PROG NOTE ---
[address] [address] PROGRESS NOTE PATIENT: STEWART UREÑA : 1935 MR#: [id number] ADMIT: 12/17/2016 JOB ID: [id number] DATE: 12/19/2016 SUBJECTIVE: Two afternoon ago the patient had a successful percutaneous transhepatic drain placed into hepatic abscess. So far, E. coli is growing out of the fluid. The patient additionally has E. coli in the blood. Overall, she feels improved. OBJECTIVE: Vital signs stable. Patient conversational, in no distress. Drain in place and the fluid appears quite bilious (so far today it looks like 60 cc has drained). LABORATORIES: Bilirubin 1.1. AST 68, ALT 35, alk phos 602. Creatinine 0.30. White count 6.7. H and H stable. Platelets 402. ASSESSMENT AND RECOMMENDATIONS: This is an 81-year-old female with longstanding hereditary hemorrhagic telangiectasia mostly refractory to conventional therapies. Last intervention here was very beginning of September. She was transferred down to [facility] and recalls having a real tough recovering from endoscopy with a lot of nausea, vomiting and general discomfort following the procedure. On October 30 she presented here with evidence of gastric perforation. It is really unclear as to what the underlying pathology was to drive such a catastrophic event, but of particular note of interest was the fact that she had the appearance of cystic cavities much smaller at that time, but definitely present on the initial CAT scan on October 30 (these are new and not seen on imaging from the early fall 2015). Difficult to say whether the patient already had early abscess at that time in October or whether this was biloma that has subsequently become infected. For now, I think continued clinical support with antibiotic therapy and drainage until it becomes negligible (at which time the pigtail catheter can be removed) should continue. Continue diet as tolerated and provide bowel regimen considering the patient's profound tendency toward constipation considering the longstanding uterine pathology that is putting pressure on the rectosigmoid junction. Will hold off on upper endoscopic evaluation unless the patient has significant clinical bleeding.
[2016-12-20] MEDS: HYDROmorphone 0.5 mg/0.5 mL iSecure Syringe IVPUSH SCH ×7 (00:55→22:52)
[2016-12-20] MEDS: Piperacillin-Tazo 3.375 Gm Inj 3.375 GM in Dextrose 5% Minibag Plus 50 ML IV SCH (05:56)
[2016-12-20] MEDS: 0.9% Sodium Chloride 1,000 ML IV SCH ×2 (05:56→16:11)
--- NOTE | 2016-12-20 06:00 | NUR ---
Pain Pt reporting pain 4/10 to right side/drain insertion site, medicated pt with 0.5 mg IV dilaudid X1. Pt stating no pain after medication admin. Will continue to assess pt for pain. Call light within reach, frequent rounding.
[2016-12-20 06:18] LABS: Mean Corpuscular Hemoglobin 28.3 pg (27.0-35.0); Mean Corpuscular Volume 88.6 fL (81-100)
[2016-12-20] MEDS: NORETHINDRONE PO SCH (08:30)
[2016-12-20] MEDS: ETHINYL ESTRADIOL PO SCH (08:30)
[2016-12-20] MEDS: Polyethylene Glycol (PEG) 17 Gm Powder PO SCH (08:55)
[2016-12-20] MEDS: Pantoprazole 20 mg ER24 Tablet PO SCH ×2 (08:55→17:43)
[2016-12-20] MEDS: Ertapenem Inj 1,000 MG in 0.9% Sodium Chloride 50 ML IV SCH (13:27)
--- NOTE | 2016-12-20 13:47 | NUR ---
spiritual care; (late entry) conversational visit. pt reflected on medical condition and her large extended family. Dtr in room, supportive. Pt shared of obstacles she's experienced due to genetic blood vessel issue and coping with the layer of risk this presents as she makes medical decisions and re. care.
--- NOTE | 2016-12-20 14:11 | NUR ---
PAIN/Eating Pt reporting occasional pain 5-6/10 on Upper R Quadrant of abdomen r/t pigtail drain. Dressing is C/D/I with no s/sx of infection. Pt given scheduled 0.5mg Dilaudid when pain is at 4 or higher. Pain resolves to 0-2/10. Pt reports pain is increased after consuming meals.
--- NOTE | 2016-12-20 14:28 | NUR ---
NUTRITION FOLLOW UP: Assess: 80 YO F admitted with fever, abd. pain, sepsis and hepatic abscess, s/p successful drain for abscess, + E.Coli. RD spoke with pt during past admits on 09/11/16 and 11/05/16 and it appears wt has increased since previous admit. RN notes increased pain associated with eating. PMHx: Ulcerated gastroesophageal junction, Irregular gastroesophageal junction, Gastric and duodenal hereditary hemorrhagic telangiectasia, Hypothyroid, malnutrition, uterine fibroid. LABS: Reviewed. Alb 1.9, Alk Phos 522, Glu 87,BUN 4 MEDICATIONS: Reviewed. DIET: Dysphagia Mechanical. PO 25-100% GI: 2 BM 12/19, on bowel regimen SKIN: No issues noted ANTHROPOMETRICS: Current Wt: 41.5 kg (standing scale) Past Admit Wt: 38.5 kg (Bed scale) IBW: 52.3 kg. UBW (November): 54 kg. Severe wt loss noted in past, but wt appears stable with slight increase over the past 3 months. ESTIMATED NEEDS: Malnutrition Calories: 6718-3730 kcal/day (30-35 kcal/kg IBW) Protein: 65-80 g/day (1.2-1.5 g/kg IBW) NUTRITION DIAGNOSIS: 1) Severe malnutrition related to chronic illness as evidenced by variable wt, visible loss of LBM/ fat--PERSISTS 2) Inadequate oral intake related to altered GI function as evidence by early satiety, BMI of 16.2--IMPROVING. PO intake 25-100% x 2d INTERVENTION: 1) Continue ensure to all trays. 2) Pt has received high calorie/high protein education on 09/11/16 and 11/05/16. MONITOR/EVALUATE: Diet tolerance, labs, weights, nutrition status. Follow per high nutrition risk guidelines.
--- NOTE | 2016-12-20 14:47 | DRSVH ---
PROCEDURE: US VENOUS ARM DUPLEX UNILATERAL, LEFT INDICATIONS: left arm swelling. r/o DVT TECHNIQUE: Real-time imaging, as well as color and pulse Doppler interrogation, was performed of the left upper extremity deep veins from the inferior neck to the antecubital fossa. COMPARISON: None. FINDINGS: There are occlusive filling defects within the internal jugular vein, visualized portions o f the subclavian vein and axillary veins, consistent with deep venous thrombosis. In addition, there are filling defects in cephalic vein. IMPRESSION: Deep venous thrombosis of the left upper extremity. Dictated by: Tarik Sin M.D. on 12/20/2016 at 14:43 Approved by: Tarik Sin M.D. on 12/20/2016 at 14:45
--- NOTE | 2016-12-20 15:05 | PROG NOTE ---
[address] [address] PROGRESS NOTE PATIENT: STEWART UREÑA : 1935 MR#: [id number] ADMIT: 12/17/2016 JOB ID: [id number] DATE: 12/20/2016 INFECTIOUS DISEASE FOLLOWUP NOTE: REASON FOR FOLLOWUP: Polymicrobial bacteremic liver abscess. INTERVAL HISTORY: The patient reports she continues to gradually feel better. No additional fevers, chills, or sweats. She has no cough or significant shortness of breath. She still has some right upper quadrant pain, which is declining. Her right upper quadrant drain is still in place but the output is diminished. She is having a little bit of puffiness around her left upper extremity PICC line but otherwise no problems there. PHYSICAL EXAMINATION: Reveals an afebrile woman. Temp 36.9, pulse 84, respiratory rate 18, blood pressure 124/66. She is saturating well on room air, in no acute discomfort. Mental status is sharp. Oral cavity without lesions. Lungs fairly clear. Cardiac tones without new murmur. Left upper extremity PICC line appears uninfected, though the left upper extremity is a bit puffy. The abdomen is thin and mildly tender in the right upper quadrant where the drain is still present with minimal milk chocolate-like drainage. No new skin rash noted. LABORATORIES: Include white count 5500. Creatinine less than 0.3. Procalcitonin is falling very nicely from 4 down to 1 at this point. Cultures are now final. Both blood and abscess grew a combination of E. coli and klebsiella. These organisms are both quite susceptible including very susceptible to Cipro, Bactrim, ertapenem and ceftriaxone. IMAGING: There has been no new imaging since the placement of the drainage catheter three days ago. IMPRESSION: A bacteremic polymicrobial liver abscess in a woman with underlying hereditary hemorrhagic telangiectasia. Her liver abscess contains the Klebsiella pneumoniae organism, which has been implicated as a cause of severe liver abscesses in [place] and is now spreading across the world. This is typically a hyper-virulent and very destructive strain. We reviewed the relevant literature to make therapeutic recommendations. There are no definitive guidelines on how long to treat liver abscess with IV along with oral antibiotics but most experts and articles recommend at least a couple weeks of IV therapy plus at least one week of catheter drainage, followed by a very prolonged course of appropriate oral therapy if available. RECOMMENDATIONS: 1. Will change the Zosyn to ertapenem today to simplify treatment. 2. I would plan on continuing the ertapenem at least through December 31 or so which will likely extend beyond the patient's discharge date with the transition after that to a combination of oral Cipro and Flagyl for a very prolonged course. 3. Will continue to follow this interesting patient with you. I would not anticipate discharge before early next week when we will likely consider pulling the drain and preparing the patient for home IV therapy, which will continue for least a few days beyond discharge depending on her labs and clinical parameters.
--- NOTE | 2016-12-20 17:37 | PCM.PNMED ---
Subjective Date of Service Dec 20, 2016 Subjective reports continuing to feel better today. complains of left arm swelling No events overnight Exam Vital Signs Vital Sign - Last Date Time Temp Pulse Resp B/P Pulse Ox O2 Delivery O2 Flow Rate FiO2 12/20/16 12:29 36.4 68 18 109/62 94 Room Air Intake and Output 12/19/16 12/19/16 12/20/16 Cumulative From/Thru 15:00 23:00 07:00 12/16/16 22:37 - 12/20/16 05:59 Intake Total 1611 ml 1159 ml 7884 ml Output Total 305 ml 1935 ml Balance 1306 ml 1159 ml 5949 ml Intake Oral 200 ml 1218 ml IV Total 1411 ml 1159 ml 6666 ml Output Urine Total 275 ml 1650 ml Drainage Total 30 ml 285 ml # Voids 7 # Bowel Movements 2 Exam General: Alert, Cooperative, No Acute Distress Head: Normal Eyes: Scleral Anicteric Nose: Mucous Membr Moist/[place] Mouth: Mucous Membr Moist/[place] Neck: Supple Chest & Lungs: Chest Wall Normal, Clear to auscultation bilaterally Cardiovascular: Regular Rate/Rhythm Abdomen: Tender (mild at right upper quad), Non-distended, Normoactive bowel tones, Soft, Other (hepatic drain in place) Extremities: No cyanosis/clubbing. mild left arm swelling (has PICC line in the left arm) Neurological: Grossly Neurologically Intact, Normal Speech IVs and Medications Medications Reviewed: Medications were reviewed in detail Lab and Diagnostics Result Diagram: 12/20/16 0600 12/20/16 0600 X-Rays, CTs and MRIs CT Abd / Pelvis Interpretation CONCLUSION: Heterogeneous appearing liver with a focal hypodense area noted in the liver measuring up to 14cm in size. Possible considerations include infection and tumor. Pelvic mass in the region of the uterus. While fibroid is a consideration. Other tumor would be difficult to exclude. Findings suggestion of constipation. Cardiomegaly. 5mm left lower pulmonary nodule. 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 Bynum oncology), that has doubled in size in the span of 2 weeks. Presented to the ED complaining of upper abdominal pain in a bandlike distribution described as well and achy. # Acute sepsis, present on admission, clinically resolved. - Vital signs in the ED: Temperature 37.9, pulse 115, respiratory rate 18, blood pressure 126/57, with a map of 80, pulse ox 100% on room air. - Hemogram showed: White blood cell count was 21.8 with 90.5% neutrophils, - Source likely liver abscess and bacteremia - Further treatment and management as noted below # Acute liver abscess, present on admission. ongoing - Status post CT-guided drain placement for a hepatic abscess on 12/17/[address] Joel (Interventional radiology). consult and assistance is greatly appreciated. - Continue with drain - Culture growing padilla-sensitive E. Coli - Appreciate ID consult. will followup with recommendations - Change the Zosyn to ertapenem today per ID recs (plan on continuing the ertapenem at least through December 31) # Acute E. Coli bacteremia, present on admission. Active - Antibiotics and ID consult followup as noted above # Liver mass versus abscess, present on admission, active - Appreciate GI consult. will followup with recommendations - Followup cytology result from hepatic drain as well to rule out possible underlying neoplasm contributing to presenting abscess # Acute left upper extremity swelling. Not present on admission - Check U/S and rule out DVT # Leukocytosis, present on admission, resolved - Continue with infectious workup and treatment as noted above # Dehydration, present on admission, improved - Continue with supportive care and followup # Cachexia, chronic, present on admission, active - Patient has poor by mouth intake fluid and food - Followup with dietitian consult # Chronic constipation secondary to Pelvic mass, present on admission, active - Causing mass effect on the distal colon resulting in chronic constipation - Patient has large masses seen on CT in the pelvic region differential diagnosis is uterine fibroid versus other tumor. # Hypochloremic hyponatremia, present on admission, improved - IV fluid and followup # Transaminitis, chronic, present on admission, improving - Continue to trend while in-house # Normocytic normochromic Anemia, present on admission, active - Likely secondary to patient's hereditary hemorrhagic telangiectasia - Patient has history of multiple blood transfusions for chronic anemia. - Threshold for transfusion is a hemoglobin of 8 - Followup daily H/H # Ulcerated gastroesophageal junction, with history of upper GI bleed. - Pt recently had procedure performed (reports laser treatment of upper GI bleed at [facility]. - Appreciate GI consult by Dr. Sam. will followup with recommendations # Irregular gastroesophageal junction. 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
--- NOTE | 2016-12-20 20:54 | NUR ---
PICC line removed Patient's PICC line from left upper arm was removed at about 1900, per IV therapy. IVT put peripheral line in right forearm and IV fluid was continued through new site. Per day RN order, Lovenox injection was adminstered after PICC line was removed. Dressing is CDI, will continue to monitor.
[2016-12-21] VITALS (7 sets, daily range): BP systolic 112–148; BP diastolic 53–73; PULSE 81–88; RESP 16–18; O2SAT 92–96
[2016-12-21] MEDS: 0.9% Sodium Chloride 1,000 ML IV SCH (01:16)
[2016-12-21] MEDS: HYDROmorphone 0.5 mg/0.5 mL iSecure Syringe IVPUSH SCH ×6 (02:58→21:52)
[2016-12-21] MEDS: Pantoprazole 20 mg ER24 Tablet PO SCH ×2 (07:55→17:23)
[2016-12-21] MEDS: Polyethylene Glycol (PEG) 17 Gm Powder PO SCH (07:56)
--- NOTE | 2016-12-21 11:22 | PCM.PNMED ---
Subjective Date of Service Dec 21, 2016 Subjective She complains of mild to moderate discomfort on the right side. She just had pain medication few minutes ago. Exam Vital Signs Vital Sign - Last Date Time Temp Pulse Resp B/P Pulse Ox O2 Delivery O2 Flow Rate FiO2 12/21/16 06:02 86 12/21/16 04:41 37.1 18 125/53 94 Room Air Intake and Output 12/20/16 12/20/16 12/21/16 Cumulative From/Thru 15:00 23:00 07:00 12/16/16 22:37 - 12/21/16 05:52 Intake Total 100 ml 1895 ml 1035 ml 07063 ml Output Total 422 ml 730 ml 3087 ml Balance -322 ml 1165 ml 1035 ml 7827 ml Intake Oral 100 ml 572 ml 1890 ml IV Total 1323 ml 1035 ml 9024 ml Output Urine Total 410 ml 700 ml 2760 ml Drainage Total 12 ml 30 ml 327 ml # Voids 7 # Bowel Movements 2 Exam Patient is alert oriented mild distress she says she feels tired Head and neck no icterus Lungs clear Cardia vascular regular rate and rhythm, normal S1-S2 Abdomen soft mild to moderate tenderness on the right upper side without guarding rebound or firmness nondistended with active bowel sounds Extremities no pitting edema. Goals Lab and Diagnostics Result Diagram: 12/20/16 0612/20/16 06 X-Rays, CTs and MRIs CT Abd / Pelvis Interpretation CONCLUSION: Heterogeneous appearing liver with a focal hypodense area noted in the liver measuring up to 14cm in size. Possible considerations include infection and tumor. Pelvic mass in the region of the uterus. While fibroid is a consideration. Other tumor would be difficult to exclude. Findings suggestion of constipation. Cardiomegaly. 5mm left lower pulmonary nodule. 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 Last intervention here was very beginning of September. On October 30 she presented here with evidence of gastric perforation. This was surgically repaired and however recently came in for hepatic abscess; rapidly enlarging liver mass (followed by Dr. Bynum oncology), that has doubled in size in the span of 2 weeks. Successful drainage deployed with resolution of leukocytosis with improvement of abdominal pain. Unfortunately she has developed a blood clot with the edematous left arm. There is some contraindication to anticoagulation due to hereditary hemorrhagic telangiectasia. I will defer the drainage management to hospice service and infectious disease. Currently there is some mild trending of hemoglobin. She denies any blood in the stools or black stools. She denies hematemesis. Follow hemoglobin, and consider transfusion if hemoglobin goes less than 9. Will hold off on upper endoscopic evaluation unless the patient has significant clinical bleeding. Finally LFTs improving. Continue diet as tolerated and provide bowel regimen considering the patient's profound tendency toward constipation considering the longstanding uterine pathology that is putting pressure on the rectosigmoid junction. VTE Prophylaxis: Sub-Q Heparin (Unfractionated) VTE Mechanical Devices: Intermittant Pneumatic CD Resuscitation Status: CPR: Attempt Resuscitation Iggy Mcdonald MD Dec 21, 2016 11:22 [place] (Interventional radiology). consult and assistance is greatly appreciated. - Continue with drain - Culture growing padilla-sensitive E. Coli - Appreciate ID consult. will followup with recommendations - Change the Zosyn to ertapenem today per ID recs (plan on continuing the ertapenem at least through December 31) # Acute E. Coli bacteremia, present on admission. Active - Antibiotics and ID consult followup as noted above # Liver mass versus abscess, present on admission, active - Appreciate GI consult. will followup with recommendations - Followup cytology result from hepatic drain as well to rule out possible underlying neoplasm contributing to presenting abscess # Acute left upper extremity swelling. Not present on admission - Check U/S and rule out DVT # Leukocytosis, present on admission, resolved - Continue with infectious workup and treatment as noted above # Dehydration, present on admission, improved - Continue with supportive care and followup # Cachexia, chronic, present on admission, active - Patient has poor by mouth intake fluid and food - Followup with dietitian consult # Chronic constipation secondary to Pelvic mass, present on admission, active - Causing mass effect on the distal colon resulting in chronic constipation - Patient has large masses seen on CT in the pelvic region differential diagnosis is uterine fibroid versus other tumor. # Hypochloremic hyponatremia, present on admission, improved - IV fluid and followup # Transaminitis, chronic, present on admission, improving - Continue to trend while in-house # Normocytic normochromic Anemia, present on admission, active - Likely secondary to patient's hereditary hemorrhagic telangiectasia - Patient has history of multiple blood transfusions for chronic anemia. - Threshold for transfusion is a hemoglobin of 8 - Followup daily H/H # Ulcerated gastroesophageal junction, with history of upper GI bleed. - Pt recently had procedure performed (reports laser treatment of upper GI bleed at [facility]. - Appreciate GI consult by Dr. Sam. will followup with recommendations # Irregular gastroesophageal junction. 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
[2016-12-21] MEDS ORDERED: Magnesium Hydroxide 10 mL Oral Concentration PO ONE (11:30)
[2016-12-21] MEDS: Ertapenem Inj 1,000 MG in 0.9% Sodium Chloride 50 ML IV SCH (13:30)
--- NOTE | 2016-12-21 16:04 | NUR ---
Social Work: Continued d/c planning Pt is on day 4 of hospitalization. EMR reviewed. PT recommending HH at this time. JEWEL CUPPING MACHINE OPERATOR will follow up with pt regarding HH choice. SOHAN Kim
--- NOTE | 2016-12-21 17:57 | NUR ---
Pain pt has reported 4-5/10 upper abd pain throughout shift that was relieved 0.5md Dilaudid Q4H. Pt would report that her pain would decrease to a 1/10. Patient would also reposition herself to alleviate abd pressure.
--- NOTE | 2016-12-21 18:00 | PCM.PNMED ---
Subjective Date of Service Dec 21, 2016 Subjective Complains of constipation. Otherwise denies any new issues/complaints Exam Vital Signs Vital Sign - Last Date Time Temp Pulse Resp B/P Pulse Ox O2 Delivery O2 Flow Rate FiO2 12/21/16 17:43 36.8 86 18 148/69 95 Room Air Intake and Output 12/20/16 12/20/16 12/21/16 Cumulative From/Thru 15:00 23:00 07:00 12/16/16 22:37 - 12/21/16 05:52 Intake Total 100 ml 1895 ml 1035 ml 04186 ml Output Total 422 ml 730 ml 3087 ml Balance -322 ml 1165 ml 1035 ml 7827 ml Intake Oral 100 ml 572 ml 1890 ml IV Total 1323 ml 1035 ml 9024 ml Output Urine Total 410 ml 700 ml 2760 ml Drainage Total 12 ml 30 ml 327 ml # Voids 7 # Bowel Movements 2 Exam General: Alert, Cooperative, No Acute Distress Head: Normal Eyes: Scleral Anicteric Nose: Mucous Membr Moist/[place] Mouth: Mucous Membr Moist/[place] Neck: Supple Chest & Lungs: Chest Wall Normal, Clear to auscultation bilaterally Cardiovascular: Regular Rate/Rhythm Abdomen: Tender (mild at right upper quad), Non-distended, Normoactive bowel tones, Soft, Other (hepatic drain in place) Extremities: No cyanosis/clubbing. mild left arm swelling Neurological: Grossly Neurologically Intact, Normal Speech IVs and Medications Medications Reviewed: Medications were reviewed in detail Lab and Diagnostics Result Diagram: 12/20/16 0600 12/20/16 0600 X-Rays, CTs and MRIs CT Abd / Pelvis Interpretation CONCLUSION: Heterogeneous appearing liver with a focal hypodense area noted in the liver measuring up to 14cm in size. Possible considerations include infection and tumor. Pelvic mass in the region of the uterus. While fibroid is a consideration. Other tumor would be difficult to exclude. Findings suggestion of constipation. Cardiomegaly. 5mm left lower pulmonary nodule. 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 Bynum oncology), that has doubled in size in the span of 2 weeks. Presented to the ED complaining of upper abdominal pain in a bandlike distribution described as well and achy. # Acute left upper extremity DVT at site of PICC line. Not present on admission - PICC line removed on 12/20 - Per discussion with hematology (Dr. Travis) on 12/20 decision made to start patient on anticoagulation with Lovenox given extent of DVT despite possible risk of bleeding. Risks and benefits were discussed with patient on afternoon of 12/20 and she is in agreement with current treatment and plan. # Acute sepsis, present on admission, clinically resolved. - Vital signs in the ED: Temperature 37.9, pulse 115, respiratory rate 18, blood pressure 126/57, with a map of 80, pulse ox 100% on room air. - Hemogram showed: White blood cell count was 21.8 with 90.5% neutrophils, - Source likely liver abscess and bacteremia - Further treatment and management as noted below # Acute liver abscess, present on admission. ongoing - Status post CT-guided drain placement for a hepatic abscess on 12/17/[address] Joel (Interventional radiology). consult and assistance is greatly appreciated. - Continue with drain - Culture growing padilla-sensitive E. Coli - Appreciate ID consult. will followup with recommendations - Changed Zosyn to Ertapenem on 12/20/16 per ID recs (plan on continuing the ertapenem at least through December 31) # Acute E. Coli bacteremia, present on admission. Active - Antibiotics and ID consult followup as noted above # Liver mass versus abscess, present on admission, active - Appreciate GI consult. will followup with recommendations - Followup cytology result from hepatic drain as well to rule out possible underlying neoplasm contributing to presenting abscess # Leukocytosis, present on admission, resolved - Continue with infectious workup and treatment as noted above # Dehydration, present on admission, improved - Continue with supportive care and followup # Cachexia, chronic, present on admission, active - Patient has poor by mouth intake fluid and food - Followup with dietitian consult # Chronic constipation secondary to Pelvic mass, present on admission, active - Causing mass effect on the distal colon resulting in chronic constipation - Patient has large masses seen on CT in the pelvic region differential diagnosis is uterine fibroid versus other tumor. - Continue with stool softeners # Hypochloremic hyponatremia, present on admission, improved - IV fluid and followup # Transaminitis, chronic, present on admission, improving - Continue to trend while in-house # Normocytic normochromic Anemia, present on admission, active - Likely secondary to patient's hereditary hemorrhagic telangiectasia - Patient has history of multiple blood transfusions for chronic anemia. - Threshold for transfusion is a hemoglobin of 8 - Followup daily H/H # Ulcerated gastroesophageal junction, with history of upper GI bleed. - Pt recently had procedure performed (reports laser treatment of upper GI bleed at [facility]. - Appreciate GI consult by Dr. Sam. will followup with recommendations # Irregular gastroesophageal junction. 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 Transfuse if Hgb<9 Dispo: 3-4 days VTE Prophylaxis: Sub-Q Heparin (Unfractionated) VTE Mechanical Devices: Intermittant Pneumatic CD Resuscitation Status: CPR: Attempt Resuscitation Nick Fragoso Dec 21, 2016 18:00
[2016-12-22] VITALS (9 sets, daily range): BP systolic 109–150; BP diastolic 59–68; PULSE 84–93; RESP 16–18; O2SAT 93–96
[2016-12-22] MEDS: HYDROmorphone 0.5 mg/0.5 mL iSecure Syringe IVPUSH SCH ×2 (00:59→04:53)
[2016-12-22 08:07] LABS: BASOPHILS % (AUTO) 0.9 % (0-3); EOSINOPHILS % (AUTO) 1.1 % (0-5); MONOCYTES % (AUTO) 15.3 % (4-12); Mean Corpuscular Hemoglobin 27.9 pg (27.0-35.0); Mean Corpuscular Volume 89.7 fL (81-100); NEUTROPHILS % (AUTO) 64.4 % (40-74); Platelet Count 493 bil/L (150-400)
[2016-12-22] MEDS: Polyethylene Glycol (PEG) 17 Gm Powder PO SCH (08:59)
[2016-12-22] MEDS: Pantoprazole 20 mg ER24 Tablet PO SCH ×2 (08:59→17:16)
[2016-12-22] MEDS: HYDROmorphone 0.5 mg/0.5 mL iSecure Syringe IVPUSH PRN ×4 (09:00→21:16)
[2016-12-22] MEDS ORDERED: Sodium Biphos-Phos 133 mL Enema RECTAL PRN (10:55)
[2016-12-22] MEDS: Ertapenem Inj 1,000 MG in 0.9% Sodium Chloride 50 ML IV SCH (12:41)
--- NOTE | 2016-12-22 14:47 | PCM.PNMED ---
Subjective Date of Service Dec 22, 2016 Subjective Reports continued constipation and bilateral ankle swelling. Otherwise denies any new issues/complaints Exam Vital Signs Vital Sign - Last Date Time Temp Pulse Resp B/P Pulse Ox O2 Delivery O2 Flow Rate FiO2 12/22/16 11:02 37.3 85 16 123/62 96 Room Air Intake and Output 12/21/16 12/21/16 12/22/16 Cumulative From/Thru 15:00 23:00 07:00 12/16/16 22:37 - 12/22/16 06:18 Intake Total 275 ml 200 ml 300 ml 25540 ml Output Total 920 ml 1165 ml 810 ml 5982 ml Balance -645 ml -965 ml -510 ml 5707 ml Intake Oral 275 ml 200 ml 300 ml 2665 ml IV Total 9024 ml Output Urine Total 900 ml 1150 ml 800 ml 5610 ml Drainage Total 20 ml 15 ml 10 ml 372 ml # Voids 7 # Bowel Movements 0 2 Exam General: Alert, Cooperative, No Acute Distress Head: Normal Eyes: Scleral Anicteric Nose: Mucous Membr Moist/[place] Mouth: Mucous Membr Moist/[place] Neck: Supple Chest & Lungs: Chest Wall Normal, Clear to auscultation bilaterally Cardiovascular: Regular Rate/Rhythm Abdomen: Tender (mild at right upper quad), Non-distended, Normoactive bowel tones, Soft, Other (hepatic drain in place) Extremities: No cyanosis/clubbing. mild left arm swelling. mild edema of feet bilaterally up to the ankles. Neurological: Grossly Neurologically Intact, Normal Speech IVs and Medications Medications Reviewed: Medications were reviewed in detail Lab and Diagnostics Result Diagram: 12/22/16 0735 12/22/16 0735 X-Rays, CTs and MRIs CT Abd / Pelvis Interpretation CONCLUSION: Heterogeneous appearing liver with a focal hypodense area noted in the liver measuring up to 14cm in size. Possible considerations include infection and tumor. Pelvic mass in the region of the uterus. While fibroid is a consideration. Other tumor would be difficult to exclude. Findings suggestion of constipation. Cardiomegaly. 5mm left lower pulmonary nodule. 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 Bynum oncology), that has doubled in size in the span of 2 weeks. Presented to the ED complaining of upper abdominal pain in a bandlike distribution described as well and achy. # Acute left upper extremity DVT at site of PICC line. Not present on admission - PICC line removed on 12/20 - Per discussion with hematology (Dr. Travis) on 12/20 decision made to start patient on anticoagulation with Lovenox given extent of DVT despite possible risk of bleeding. Risks and benefits were discussed with patient on afternoon of 12/20 and she is in agreement with current treatment and plan. # Acute sepsis, present on admission, clinically resolved. - Vital signs in the ED: Temperature 37.9, pulse 115, respiratory rate 18, blood pressure 126/57, with a map of 80, pulse ox 100% on room air. - Hemogram showed: White blood cell count was 21.8 with 90.5% neutrophils, - Source likely liver abscess and bacteremia - Further treatment and management as noted below # Acute liver abscess, present on admission. ongoing - Status post CT-guided drain placement for a hepatic abscess on 12/17/[address] Joel (Interventional radiology). consult and assistance is greatly appreciated. - Continue with drain - Culture growing padilla-sensitive E. Coli - Appreciate ID consult. will followup with recommendations - Changed Zosyn to Ertapenem on 12/20/16 per ID recs (plan on continuing the ertapenem at least through December 31) # Acute E. Coli bacteremia, present on admission. Active - Antibiotics and ID consult followup as noted above # Liver mass versus abscess, present on admission, active - Appreciate GI consult. will followup with recommendations - Followup cytology result from hepatic drain as well to rule out possible underlying neoplasm contributing to presenting abscess # Leukocytosis, present on admission, resolved - Continue with infectious workup and treatment as noted above # Dehydration, present on admission, improved - Continue with supportive care and followup # Cachexia, chronic, present on admission, active - Patient has poor by mouth intake fluid and food - Followup with dietitian consult # Chronic constipation secondary to Pelvic mass, present on admission, active - Causing mass effect on the distal colon resulting in chronic constipation - Patient has large masses seen on CT in the pelvic region differential diagnosis is uterine fibroid versus other tumor. - Continue with stool softeners # Hypochloremic hyponatremia, present on admission, improved - IV fluid and followup # Transaminitis, chronic, present on admission, improving - Continue to trend while in-house # Normocytic normochromic Anemia, present on admission, active - Likely secondary to patient's hereditary hemorrhagic telangiectasia - Patient has history of multiple blood transfusions for chronic anemia. - Threshold for transfusion is a hemoglobin of 8 - Followup daily H/H # Ulcerated gastroesophageal junction, with history of upper GI bleed. - Pt recently had procedure performed (reports laser treatment of upper GI bleed at [facility]. - Appreciate GI consult by Dr. Sam. will followup with recommendations # Irregular gastroesophageal junction. 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 Transfuse if Hgb drop further by tomorrow. Dispo: 2-3 days VTE Prophylaxis: Sub-Q Heparin (Unfractionated) VTE Mechanical Devices: Intermittant Pneumatic CD Resuscitation Status: CPR: Attempt Resuscitation Nick Fragoso Dec 22, 2016 14:47
[2016-12-22] MEDS ORDERED: Furosemide 10 mg/mL 2 mL Inj IVPUSH ONE (14:50)
[2016-12-23] VITALS (8 sets, daily range): BP systolic 115–139; BP diastolic 56–65; PULSE 83–89; RESP 14–18; O2SAT 94–98
[2016-12-23] MEDS: HYDROmorphone 0.5 mg/0.5 mL iSecure Syringe IVPUSH PRN ×5 (01:56→21:13)
[2016-12-23 06:41] LABS: Mean Corpuscular Hemoglobin 28.3 pg (27.0-35.0); Mean Corpuscular Volume 90.8 fL (81-100)
[2016-12-23] MEDS: NORETHINDRONE PO SCH (08:30)
[2016-12-23] MEDS: ETHINYL ESTRADIOL PO SCH (08:30)
[2016-12-23] MEDS: Pantoprazole 20 mg ER24 Tablet PO SCH ×2 (08:52→17:53)
[2016-12-23] MEDS: Polyethylene Glycol (PEG) 17 Gm Powder PO SCH (08:53)
--- NOTE | 2016-12-23 10:45 | PROG NOTE ---
[address] [address] PROGRESS NOTE PATIENT: STEWART UREÑA : 1935 MR#: [id number] ADMIT: 12/17/2016 JOB ID: [id number] DATE: 12/23/2016 REASON FOR FOLLOWUP: Polymicrobial liver abscess with bacteremia. INTERVAL HISTORY: The patient reports she is gradually feeling a bit better. She had swelling in her left arm and over the weekend it was shown she had a left DVT secondary to longstanding PICC line she has had for transfusions and blood draws. That PICC line has been removed and that patient has now been placed on anticoagulation. I discussed this situation at bedside with Dr. Bynum of Hematology/ Oncology. From an Infectious Disease point of view, the patient seems to be doing okay. She notes her right upper quadrant pain is basically gone, though the drain is still in place. She has no fevers, chills, sweats, or nausea. No significant cough or shortness of breath. PHYSICAL EXAMINATION: Reveals an afebrile woman in no acute distress. Temp 37.2, pulse 86, respiratory rate 16, blood pressure 139/60. She is in no acute distress. Her left arm is obviously swollen as compared to the right, but it is nontender. Oral cavity basically negative. Lungs fairly clear anteriorly. Cardiac tones without new murmur. Abdomen with minimal right upper quadrant tenderness so that is much improved. The drain is still in place with minimal drainage. No lower abdominal or pelvic tenderness noted. LABORATORIES: Include white count 4800, platelets 433,000. Creatinine less than 0.3. Alk phos 456. ALT and AST are normal. Urinalysis without white cells. Cultures include E. coli and Klebsiella growing from both blood and the abscess. These are susceptible to Cipro and ertapenem. We have no new imaging except for the ultrasound that shows the DVT. IMPRESSION: This patient with a polymicrobial bacteremic liver abscess with underlying hereditary hemorrhagic telangiectasia now complicated additionally by deep venous thrombosis in the left arm secondary to longstanding peripheral inserted central catheter line. Note that on Friday we did an extensive literature review and our current plan is to treat with ertapenem for a bit longer perhaps through December 31 and then transition to a combination of oral Cipro and Flagyl for a prolonged course until the abscess has completely resolved. RECOMMENDATIONS: 1. Will continue with ertapenem daily through December 31. We can do this using peripheral Intravenous if there is no central access as this is a fairly easy once a day antibiotic. 2. Once we reach December 31 will be switching the patient to a combination of Cipro and Flagyl. 3. Additional imaging of the liver area is indicated to see whether or not we can pull the drain, and I will leave this up to the hospitalist and Interventional Radiology as to determine exactly when to re-image the liver and when to pull the drain, which will obviously be an important step in getting her ready for discharge.
--- NOTE | 2016-12-23 12:46 | NUR ---
SW met with pt at bedside to follow-up re: HH recommendation and her provider choice. Pt stated [facility] as her choice. SW contacted [facility], gave access. [id number] in file. SOHAN Russell
[2016-12-23] MEDS: Ertapenem Inj 1,000 MG in 0.9% Sodium Chloride 50 ML IV SCH (13:13)
--- NOTE | 2016-12-23 13:48 | PROG NOTE ---
[address] [address] PROGRESS NOTE PATIENT: STEWART UREÑA : 1935 MR#: [id number] ADMIT: 12/17/2016 JOB ID: [id number] DATE: 12/23/2016 SUBJECTIVE: The patient is an 80-year-old woman with hereditary hemorrhagic telangiectasia. She was hospitalized in November with gastric perforation, treated surgically by Dr. Moncada. Subsequent imaging showed a 6.5 cm mass in the right liver. She was rehospitalized on December 16, 2016, with worsening upper abdominal pain. She had additional imaging that showed an enlarging 6.1 x 6.2 cm right liver lesion, concerning for hepatic abscess. She had a drain placed in Interventional Radiology. Culture from her abscess material returned positive for E. coli and Klebsiella pneumoniae. Dr. Webber is treating her with her ertapenem 1000 mg IV daily. During her hospitalization, she developed swelling in her left arm, associated with her PICC line. Doppler studies on December 20, 2016, showed a deep vein thrombosis of the left upper extremity from the interior neck to the antecubital fossa. She is now on Lovenox 40 mg subcutaneously twice daily. She denies any active bleeding. OBJECTIVE: Vitals: T 37.1, P 86, R 18, BP 115/56. HEENT: Conjunctivae pale. Mucous membranes slightly dry. No oral lesions. Nodes: No adenopathy in the neck or axilla. Chest clear. Cardiac exam: Regular rate and rhythm with normal S1, S2. Abdomen soft. Mild tenderness in the upper abdomen. She has a drain with minimal, yellow-stained drainage in the bag. Extremities: No edema, 2+ distal pulses. Extensive muscular wasting. LABORATORIES: WBC 4.8, hemoglobin 8.3, hematocrit 26.6%, MCV 91, platelets 433,000. BUN 3, creatinine less than 0.3. Glucose 83. ASSESSMENT AND PLAN: 1. 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 I would be opposed to anticoagulation with warfarin or other long-acting agents for her left upper extremity deep vein thrombosis, but do not oppose Lovenox 40 mg subcutaneously twice daily, which is relatively short-acting. However, monitor closely, as she is high risk for bleeding, and may require future transfusion support. 2. Right liver abscess: The patient is draining a 6 cm mass in the right liver, which was an abscess, positive for both Escherichia coli and Klebsiella. Dr. Webber feels she needs at least another week of intravenous ertapenem 1000 mg IV daily, followed by additional outpatient oral antibiotics. Continue to monitor.
--- NOTE | 2016-12-23 14:43 | PCM.PNMED ---
Subjective Date of Service Dec 23, 2016 Subjective Reports continued constipation. Otherwise denies any new issues/complaints Exam Vital Signs Vital Sign - Last Date Time Temp Pulse Resp B/P Pulse Ox O2 Delivery O2 Flow Rate FiO2 12/23/16 13:50 37.3 89 18 118/65 96 Room Air Intake and Output 12/22/16 12/22/16 12/23/16 Cumulative From/Thru 15:00 23:00 07:00 12/16/16 22:37 - 12/22/16 20:04 Intake Total 350 ml 21681 ml Output Total 1775 ml 7757 ml Balance -1425 ml 4282 ml Intake Oral 350 ml 3015 ml IV Total 9024 ml Output Urine Total 1775 ml 7385 ml Drainage Total 372 ml # Voids 7 # Bowel Movements 0 2 Exam General: Alert, Cooperative, No Acute Distress Head: Normal Eyes: Scleral Anicteric Nose: Mucous Membr Moist/[place] Mouth: Mucous Membr Moist/[place] Neck: Supple Chest & Lungs: Chest Wall Normal, Clear to auscultation bilaterally Cardiovascular: Regular Rate/Rhythm Abdomen: Tender (mild at right upper quad), Non-distended, Normoactive bowel tones, Soft, Other (hepatic drain in place) Extremities: No cyanosis/clubbing. mild left arm swelling. mild edema of feet bilaterally up to the ankles. Neurological: Grossly Neurologically Intact, Normal Speech IVs and Medications Medications Reviewed: Medications were reviewed in detail Lab and Diagnostics Result Diagram: 12/23/1661412/23/16614 X-Rays, CTs and MRIs CT Abd / Pelvis Interpretation CONCLUSION: Heterogeneous appearing liver with a focal hypodense area noted in the liver measuring up to 14cm in size. Possible considerations include infection and tumor. Pelvic mass in the region of the uterus. While fibroid is a consideration. Other tumor would be difficult to exclude. Findings suggestion of constipation. Cardiomegaly. 5mm left lower pulmonary nodule. 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 Bynum oncology), that has doubled in size in the span of 2 weeks. Presented to the ED complaining of upper abdominal pain in a bandlike distribution described as well and achy. # Acute sepsis, present on admission, clinically resolved. - Vital signs in the ED: Temperature 37.9, pulse 115, respiratory rate 18, blood pressure 126/57, with a map of 80, pulse ox 100% on room air. - Hemogram showed: White blood cell count was 21.8 with 90.5% neutrophils, - Source likely liver abscess and bacteremia - Further treatment and management as noted below # Acute liver abscess, present on admission. ongoing - Status post CT-guided drain placement for a hepatic abscess on 12/17/[address] Joel (Interventional radiology). consult and assistance is greatly appreciated. - Continue with drain - Culture growing padilla-sensitive E. Coli - Appreciate ID consult. will followup with recommendations - Changed Zosyn to Ertapenem on 12/20/16 per ID recs (plan on continuing the ertapenem at least through December 31) - Repeat CT abd today and will discuss with IR after on when to consider removing the drain # Acute left upper extremity DVT at site of PICC line. Not present on admission - PICC line removed on 12/20 - Per discussion with hematology (Dr. Travis) on 12/20 decision made to start patient on anticoagulation with Lovenox given extent of DVT despite possible risk of bleeding. Risks and benefits were discussed with patient on afternoon of 12/20 and she is in agreement with current treatment and plan. - Appreciate consult and input by Dr. Bynum as well. # Acute E. Coli bacteremia, present on admission. Active - Antibiotics and ID consult followup as noted above # Liver mass versus abscess, present on admission, active - Appreciate GI consult. will followup with recommendations - Followup cytology result from hepatic drain as well to rule out possible underlying neoplasm contributing to presenting abscess # Leukocytosis, present on admission, resolved - Continue with infectious workup and treatment as noted above # Dehydration, present on admission, improved - Continue with supportive care and followup # Cachexia, chronic, present on admission, active - Patient has poor by mouth intake fluid and food - Followup with dietitian consult # Chronic constipation secondary to Pelvic mass, present on admission, active - Causing mass effect on the distal colon resulting in chronic constipation - Patient has large masses seen on CT in the pelvic region differential diagnosis is uterine fibroid versus other tumor. - Continue with stool softeners # Hypochloremic hyponatremia, present on admission, improved - IV fluid and followup # Transaminitis, chronic, present on admission, improving - Continue to trend while in-house # Normocytic normochromic Anemia, present on admission, active - Likely secondary to patient's hereditary hemorrhagic telangiectasia - Patient has history of multiple blood transfusions for chronic anemia. - Threshold for transfusion is a hemoglobin of 8 - Followup daily H/H # Ulcerated gastroesophageal junction, with history of upper GI bleed. - Pt recently had procedure performed (reports laser treatment of upper GI bleed at [facility]. - Appreciate GI consult. will followup with recommendations # Irregular gastroesophageal junction. 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 Transfuse if Hgb drop further Dispo: 2-3 days VTE Prophylaxis: Sub-Q Heparin (Unfractionated) VTE Mechanical Devices: Intermittant Pneumatic CD Resuscitation Status: CPR: Attempt Resuscitation Nick Fragoso Dec 23, 2016 14:43
--- NOTE | 2016-12-23 15:26 | DRSVH ---
Caution: Report symphysis. 5 mm thick coronal and sagittal reformats were performed. For radiation dose reduction, the following was used: automated exposure control, adjustment of mA and/or kV accor ding to patient size. COMPARISON: [facility], CT, CT ABCESS DRAIN PERITONEAL, 12/17/2016, 13:58. [facility], CT, CT ABD PELVIS W CON, 11/27/2016, 23:56. [facility], CT, CT ABD PELVIS W CO N, 12/17/2016, 3:11. FINDINGS: Image quality: Excellent. ABDOMEN: Lung bases: Small bilateral pleural effusions with adjacent atelectasis. The heart is enlarged. Solid organs: A hepatic drain is again noted, and the residual hepatic fluid collection appears decr eased in size since 12/17/16, now measuring approximately 4.5 x 3.1 cm. The surrounding liver parenchy ma is heterogeneous. Gallbladder is absent or decompressed. Pancreas and spleen grossly unremarkable. Adrenal glands within normal limits and no nodule seen. The kidneys are within normal limits and no hydronephrosis. Peritoneum and bowel: Stomach, small bowel, and colon loops are normal in caliber and wall thickness . No free fluid or air. Nodes and vessels: No retroperitoneal or mesenteric adenopathy. Aorta and inferior vena cava are no rmal in caliber. Miscellaneous: No ventral hernias. There is diffuse circumferential subcutaneous body wall edema is a third spacing/anasarca. PELVIS: Genitourinary: Bladder wall thickness is normal. Previously described large uterine heterogeneous l esions, presumed uterine fibroids. Miscellaneous: No inguinal hernias or adenopathy. Bones: There is scoliosis and diffuse discogenic changes. No suspicious bony lesions. No vertebral body compression fractures. IMPRESSION: Interval decrease in size of presumed hepatic abscess since 12/17/16, status post pigtail drain placem ent. Heterogeneous attenuation of the surrounding liver, presumably reactive infectious/inflammatory hepatitis. Recommend continued imaging followup after treatment to document resolution and exclude san perimposed focal mass Small bilateral pleural effusions with adjacent atelectasis. Circumferential body wall subcutaneous edema in keeping with anasarca. Large uterine fibroids. Cardiomegaly. Dictated by: Andre Herring M.D. on 12/23/2016 at 15:15 Approved by: Andre Herring M.D. on 12/23/2016 at 15:24
--- NOTE | 2016-12-23 16:06 | NUR ---
NUTRITION FOLLOW UP: Assess: 80 YO F with liver abscess s/p CT drain placed, CT of abdomen to be taken for potential removal of drain. New DVT noted.RD spoke with pt during past admits on 09/11/16 and 11/05/16 and it appears wt has increased since previous admit. RN notes increased pain associated with eating. No new weight on pt since 12/18. PMHx: Ulcerated gastroesophageal junction, Irregular gastroesophageal junction, Gastric and duodenal hereditary hemorrhagic telangiectasia, Hypothyroid, malnutrition, uterine fibroid. LABS: Reviewed. Alb 1.9, Alk Phos 456, Pro 4.6 MEDICATIONS: Reviewed. DIET: Dysphagia Mechanical. PO 25-50%. Decreased GI: 2 BM 12/18, on bowel regimen SKIN: No issues noted ANTHROPOMETRICS: Current Wt: (12/18) 41.5 kg (standing scale) Past Admit Wt: 38.5 kg (Bed scale) IBW: 52.3 kg. UBW (November): 54 kg. Severe wt loss noted in past, but wt appears stable with slight increase over the past 3 months. ESTIMATED NEEDS: Malnutrition Calories: 5475-9728 kcal/day (30-35 kcal/kg IBW) Protein: 65-80 g/day (1.2-1.5 g/kg IBW) NUTRITION DIAGNOSIS: 1) Severe malnutrition related to chronic illness as evidenced by variable wt, visible loss of LBM/ fat--PERSISTS 2) Inadequate oral intake related to altered GI function as evidence by early satiety, BMI of 16.2--PERSISTS. INTERVENTION: 1) Left message with RN requesting RN obtain new weight on patient. 2) Continue ensure to all trays. 3) Pt has received high calorie/high protein education on 09/11/16 and 11/05/16. 4) If po intake remains poor (@25% or less) consideration of nutrition support highly recommended. MONITOR/EVALUATE: Diet tolerance, labs, weights, nutrition status. Follow per high nutrition risk guidelines.
--- NOTE | 2016-12-23 19:15 | NUR ---
Pig tail drain Patient has a pigtail drain to Rt side. Draining to gravity. 30 mls out this shift. Patient reporting pain up to 5/10, relieved with narcotic pain meds.
--- NOTE | 2016-12-23 22:40 | PROG NOTE ---
[address] [address] PROGRESS NOTE PATIENT: STEWART UREÑA : 1935 MR#: [id number] ADMIT: 12/17/2016 JOB ID: [id number] DATE: 12/23/2016 SUBJECTIVE: The patient feels a little stronger today than when compared with yesterday. No overt signs of bleeding since being commenced on Lovenox. She has been afebrile. Remains on antibiotic. Her drain continues to put out about 10 to 60 cc of bilious appearing material per 24 hours. OBJECTIVE: Vitals stable. Patient conversational. The patient had a slightly milky bilious appearance to the drainage in her collecting bag. LABORATORIES: Hemoglobin 8.3, white count normal, platelets 433, BUN 3. UPDATED IMAGING: Decreased size in the abscess cavity. ASSESSMENT AND RECOMMENDATIONS: This is an 81-year-old female with hereditary hemorrhagic telangiectasia with a hepatic abscess status post pigtail drainage. I will defer antibiotic protocol entirely to Dr. Webber. As far as the timing of drain removal this may prove a little challenging. The drainage will likely never go to zero in that there is clearly bile leaking into the drain field. I would argue that perhaps when the drainage is consistently less than 20 cc per 24 hours for at least two days in a row that it may be acceptable to consider removal. I have added on a couple of enemas for tomorrow. The patient is struggling with her bowel movements and with the compression that her uterine fibroids place on the rectosigmoid region she is incredibly prone to constipation and obstipation. I will be away from the hospital tomorrow. I will attempt to follow up again on Friday. If there are any questions or concerns feel free to contact me any time on my cell phone [phone].
[2016-12-24] MEDS: HYDROmorphone 0.5 mg/0.5 mL iSecure Syringe IVPUSH PRN ×4 (01:19→21:51)
[2016-12-24 01:22] VITALS: BP 133/68; PULSE 74; RESP 18; O2SAT 96
[2016-12-24 05:22] VITALS: BP 135/65; PULSE 80; RESP 18; O2SAT 97
--- NOTE | 2016-12-24 06:07 | NUR ---
PAIN Pt complained of upper abd pain 6/10 x3 during the night. Administered Dilaudid 0.5mg IV push, effective. Pt rested with eyes closed intermittently. Pt resting with eyes closed at this time. No s/sx of pain or distress. Call light within reach, using appropriately. Pleasant and cooperative with care.
[2016-12-24] MEDS ORDERED: Magnesium Hydroxide 10 mL Oral Concentration PO ONE (07:45)
[2016-12-24 09:35] VITALS: BP 120/57; PULSE 90; RESP 18; O2SAT 96
[2016-12-24] MEDS: Pantoprazole 20 mg ER24 Tablet PO SCH ×2 (10:06→17:12)
[2016-12-24] MEDS: Polyethylene Glycol (PEG) 17 Gm Powder PO SCH (10:06)
[2016-12-24 10:39] VITALS: PULSE 90
--- NOTE | 2016-12-24 11:07 | NUR ---
GI pt able to have small dark soft bowel movement. guaiac sent. MD informed. ordered bowel med continued.
[2016-12-24] MEDS: Ertapenem Inj 1,000 MG in 0.9% Sodium Chloride 50 ML IV SCH (12:36)
--- NOTE | 2016-12-24 15:32 | PROG NOTE ---
[address] [address] PROGRESS NOTE PATIENT: STEWART UREÑA : 1935 MR#: [id number] ADMIT: 12/17/2016 JOB ID: [id number] DATE: 12/24/2016 INFECTIOUS DISEASE FOLLOWUP NOTE: REASON FOR FOLLOWUP: Large polymicrobial liver abscess. INTERVAL HISTORY: The patient reports she is gradually feeling better, though she is still very weak. No fevers, chills, cough, sweat, or chest pain. She is no longer having much in the way of abdominal pain. She notes that her right upper quadrant drain is really not draining anything anymore and she wonders when that can be pulled. She was seen walking in the solo today with some help but she is still concerned about her ability to make it on her own back at [facility] if she is discharged in the near future. PHYSICAL EXAMINATION: Reveals a frail woman, in no acute distress. Temperature 37.1, pulse 90, respiratory rate 18, blood pressure 120/57. She is awake, alert and lucid. Oral cavity negative. Lungs relatively clear anteriorly. Cardiac tones without new murmur. Abdomen with a drain in the right upper quadrant. Minimal tenderness in the right upper quadrant which seems to be getting steadily better. No skin rash. LABORATORIES: Include white count 4800, platelets 433. Creatinine less than 0.3. LFT normal except the alk phos, which is actually improving daily, now down to 456. Urinalysis was negative earlier. Micro studies, nothing new to add. The blood and abscess cavity both growing E. coli and klebsiella. Urine culture negative. IMAGING: Followup abdominal CT shows decreased size in the hepatic abscess, which is now down to 4.5 x 3 cm. The surrounding liver parenchyma is attenuated and looks like this could be reactive to the infection that has been ongoing. IMPRESSION: This patient is doing relatively well despite her fragile, premorbid status and the very large size of this abscess. At this point, she is on ertapenem, and current guidelines suggest at least two weeks of IV therapy before the transition to oral. I think ertapenem is the single easiest agent to use here, and the patient has indicated that if she gets discharged back to her [facility] apartment, she would be able to come back and forth to the [facility] for infusions. RECOMMENDATIONS: 1. The patient is probably not quite ready for discharge. She is still feeling too weak and still has a drain but I suspect she will be ready sometime this week. 2. I would continue IV ertapenem 1 g a day through January 01. We can use peripheral IVs. There is no indication for a new PICC here, as the patient already has a DVT in her swollen left upper extremity and we need not place another central line at this point. 3. Once the patient is ready to leave, she can start getting the infusions at the [facility] with the last dose being on January 01. I will see her in my clinic on January 01 and transition her to a combination of Cipro and Flagyl to continue for some weeks while we wait for the abscess to completely resolve.
[2016-12-24 16:07] VITALS: BP 123/60; PULSE 82; RESP 18; O2SAT 97
--- NOTE | 2016-12-24 17:15 | PCM.PNMED ---
Subjective Date of Service Dec 24, 2016 Subjective Reports continued constipation. Otherwise denies any new issues/complaints Exam Vital Signs Vital Sign - Last Date Time Temp Pulse Resp B/P Pulse Ox O2 Delivery O2 Flow Rate FiO2 12/24/16 16:07 36.7 82 18 123/60 97 Room Air Intake and Output 12/23/16 12/23/16 12/24/16 Cumulative From/Thru 14:59 22:59 06:59 12/16/16 22:37 - 12/24/16 06:30 Intake Total 200 ml 825 ml 0 ml 21240 ml Output Total 1830 ml 1555 ml 1160 ml 73830 ml Balance -1630 ml -730 ml -1160 ml 762 ml Intake Oral 200 ml 825 ml 0 ml 4040 ml IV Total 9024 ml Output Urine Total 1800 ml 1525 ml 1150 ml 75272 ml Drainage Total 30 ml 30 ml 10 ml 442 ml # Voids 7 # Bowel Movements 0 0 2 Exam General: Alert, Cooperative, No Acute Distress Head: Normal Eyes: Scleral Anicteric Nose: Mucous Membr Moist/[place] Mouth: Mucous Membr Moist/[place] Neck: Supple Chest & Lungs: Chest Wall Normal, Clear to auscultation bilaterally Cardiovascular: Regular Rate/Rhythm Abdomen: Tender (mild at right upper quad), Non-distended, Normoactive bowel tones, Soft, Other (hepatic drain in place) Extremities: No cyanosis/clubbing. mild left arm swelling. mild edema of feet bilaterally up to the ankles. Neurological: Grossly Neurologically Intact, Normal Speech IVs and Medications Medications Reviewed: Medications were reviewed in detail Lab and Diagnostics Result Diagram: 12/23/1661412/23/16614 X-Rays, CTs and MRIs CT Abd / Pelvis Interpretation CONCLUSION: Heterogeneous appearing liver with a focal hypodense area noted in the liver measuring up to 14cm in size. Possible considerations include infection and tumor. Pelvic mass in the region of the uterus. While fibroid is a consideration. Other tumor would be difficult to exclude. Findings suggestion of constipation. Cardiomegaly. 5mm left lower pulmonary nodule. 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 Bynum oncology), that has doubled in size in the span of 2 weeks. Presented to the ED complaining of upper abdominal pain in a bandlike distribution described as well and achy. # Acute sepsis, present on admission, clinically resolved. - Vital signs in the ED: Temperature 37.9, pulse 115, respiratory rate 18, blood pressure 126/57, with a map of 80, pulse ox 100% on room air. - Hemogram showed: White blood cell count was 21.8 with 90.5% neutrophils, - Source likely liver abscess and bacteremia - Further treatment and management as noted below # Acute liver abscess, present on admission. ongoing - Status post CT-guided drain placement for a hepatic abscess on 12/17/[address] Joel (Interventional radiology). consult and assistance is greatly appreciated. - Reviewed repeat CT with IR (Dr. Joel) today. Per recommendation will flush the drain with 10cc NS q shift and if no significant drain over the next 48 hours then will consider repeat CT to determine if evidence of loculated abscess or to remove the drain at that point. - Continue to monitor drain output - Culture growing padilla-sensitive E. Coli - Appreciate ID and GI consults. will followup with recommendations - Changed Zosyn to Ertapenem on 12/20/16 per ID recs (plan on continuing the ertapenem at least through December 31) # Acute left upper extremity DVT at site of PICC line. Not present on admission - PICC line removed on 12/20 - Per discussion with hematology (Dr. Travis on 12/[address] Bynum on 12/23) decision made to treat patient with Lovenox given extent of DVT despite possible risk of bleeding. Risks and benefits were discussed with patient on afternoon of 12/20 and she is in agreement with current treatment and plan. # Acute E. Coli bacteremia, present on admission. Active - Antibiotics and ID consult followup as noted above # Liver mass versus abscess, present on admission, active - Appreciate GI consult. will followup with recommendations # Leukocytosis, present on admission, resolved - Continue with infectious workup and treatment as noted above # Dehydration, present on admission, Resolved - Continue with supportive care and followup # Cachexia, chronic, present on admission, active - Patient has poor by mouth intake fluid and food - Followup with dietitian consult # Chronic constipation, present on admission, ongoing - Continue with stool softeners and enema # Hypochloremic hyponatremia, present on admission, resolved # Transaminitis, chronic, present on admission, improving - Continue to trend while in-house # Normocytic normochromic Anemia, present on admission, stable - Likely secondary to patient's hereditary hemorrhagic telangiectasia - Patient has history of multiple blood transfusions for chronic anemia. - Threshold for transfusion is a hemoglobin of 8 - Followup daily H/H # Ulcerated gastroesophageal junction, with history of upper GI bleed. - Pt recently had procedure performed (reports laser treatment of upper GI bleed at [facility]. - Appreciate GI consult. will followup with recommendations # Irregular gastroesophageal junction. 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 Transfuse if Hgb drop further Dispo: 3-4 days VTE Prophylaxis: Sub-Q Heparin (Unfractionated) VTE Mechanical Devices: Intermittant Pneumatic CD Resuscitation Status: CPR: Attempt Resuscitation Nick Fragoso Dec 24, 2016 17:15
[2016-12-24 20:07] VITALS: BP 122/62; PULSE 86; RESP 18; O2SAT 96
[2016-12-25] VITALS (7 sets, daily range): BP systolic 107–143; BP diastolic 55–78; PULSE 67–95; RESP 17–20; O2SAT 95–98
--- NOTE | 2016-12-25 05:08 | NUR ---
Uneventful Night: Pt rested intermittently through the night with no complaints of chest pain or discomfort. Denies SOB or n/v. Complained of pain "6" out of 10. Administered pain medication, effective. Up to BSC with SBA. Pigtail drain, flushed with 10cc. Call light within reach, using appropriately. Bed locked, low position. Frequent rounding in place. Pleasant and cooperative with care.
[2016-12-25] MEDS: HYDROmorphone 0.5 mg/0.5 mL iSecure Syringe IVPUSH PRN ×2 (06:15→18:46)
--- NOTE | 2016-12-25 06:32 | NUR ---
Nose Bleed Pt reports bloody nose, stating, "I get them because of my HHT." Nose Bleed resolved. Will continue to monitor.
[2016-12-25 06:37] LABS: Mean Corpuscular Hemoglobin 28.8 pg (27.0-35.0); Mean Corpuscular Volume 91.5 fL (81-100)
[2016-12-25] MEDS: Pantoprazole 20 mg ER24 Tablet PO SCH ×2 (08:29→16:48)
[2016-12-25] MEDS: Polyethylene Glycol (PEG) 17 Gm Powder PO SCH (08:29)
[2016-12-25] MEDS: Ertapenem Inj 1,000 MG in 0.9% Sodium Chloride 50 ML IV SCH (11:42)
--- NOTE | 2016-12-25 14:47 | NUR ---
NSG to ambulate 2-3x/day with FWW. PT will continue to see for strength and balance training.
--- NOTE | 2016-12-25 15:12 | PCM.PNMED ---
Subjective Date of Service Dec 25, 2016 Subjective Reports constipation finally resolved. Otherwise denies any new issues/ complaints Exam Vital Signs Vital Sign - Last Date Time Temp Pulse Resp B/P Pulse Ox O2 Delivery O2 Flow Rate FiO2 12/25/16 14:42 Room Air 12/25/16 14:35 36.7 71 20 128/78 98 Intake and Output 12/24/16 12/24/16 12/25/16 Cumulative From/Thru 15:00 23:00 07:00 12/16/16 22:37 - 12/25/16 06:12 Intake Total 180 ml 100 ml 63569 ml Output Total 345 ml 1535 ml 51475 ml Balance -165 ml -1435 ml -838 ml Intake Oral 180 ml 100 ml 4320 ml IV Total 9024 ml Output Urine Total 325 ml 1500 ml 18806 ml Drainage Total 20 ml 35 ml 497 ml # Voids 7 # Bowel Movements 2 4 Exam General: Alert, Cooperative, No Acute Distress Head: Normal Eyes: Scleral Anicteric Nose: Mucous Membr Moist/[place] Mouth: Mucous Membr Moist/[place] Neck: Supple Chest & Lungs: Chest Wall Normal, Clear to auscultation bilaterally Cardiovascular: Regular Rate/Rhythm Abdomen: Tender (mild at right upper quad), Non-distended, Normoactive bowel tones, Soft, Other (hepatic drain in place) Extremities: No cyanosis/clubbing/edema Neurological: Grossly Neurologically Intact, Normal Speech IVs and Medications Medications Reviewed: Medications were reviewed in detail Lab and Diagnostics Result Diagram: 12/25/16 0540 12/23/16 0615 X-Rays, CTs and MRIs CT Abd / Pelvis Interpretation CONCLUSION: Heterogeneous appearing liver with a focal hypodense area noted in the liver measuring up to 14cm in size. Possible considerations include infection and tumor. Pelvic mass in the region of the uterus. While fibroid is a consideration. Other tumor would be difficult to exclude. Findings suggestion of constipation. Cardiomegaly. 5mm left lower pulmonary nodule. 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 Bynum oncology), that has doubled in size in the span of 2 weeks. Presented to the ED complaining of upper abdominal pain in a bandlike distribution described as well and achy. # Acute sepsis, present on admission, clinically resolved. - Vital signs in the ED: Temperature 37.9, pulse 115, respiratory rate 18, blood pressure 126/57, with a map of 80, pulse ox 100% on room air. - Hemogram showed: White blood cell count was 21.8 with 90.5% neutrophils, - Source likely liver abscess and bacteremia - Further treatment and management as noted below # Acute liver abscess, present on admission. ongoing - Status post CT-guided drain placement for a hepatic abscess on 12/17/[address] Joel (Interventional radiology). consult and assistance is greatly appreciated. - Reviewed repeat CT with IR (Dr. Joel) on 12/24. Per recommendation will flush the drain with 10cc NS q shift and if no significant drain over the next 48 hours (less than 10-20 cc/24hr) then will consider repeat CT to determine if evidence of loculated abscess or to remove the drain at that point. - Continue to monitor drain output - Culture growing padilla-sensitive E. Coli - Appreciate ID and GI consults. will followup with recommendations - Changed Zosyn to Ertapenem on 12/20/16 per ID recs (plan on continuing the ertapenem at least through December 31) # Acute left upper extremity DVT at site of PICC line. Not present on admission - PICC line removed on 12/20 - Per discussion with hematology (Dr. Travis on 12/[address] Bynum on 12/23) decision made to treat patient with Lovenox given extent of DVT despite possible risk of bleeding. Risks and benefits were discussed with patient on afternoon of 12/20 and she is in agreement with current treatment and plan. # Acute E. Coli bacteremia, present on admission. Active - Antibiotics and ID consult followup as noted above # Liver mass versus abscess, present on admission, active - Appreciate GI consult. will followup with recommendations # Leukocytosis, present on admission, resolved - Continue with infectious workup and treatment as noted above # Dehydration, present on admission, Resolved - Continue with supportive care and followup # Cachexia, chronic, present on admission, active - Patient has poor by mouth intake fluid and food - Followup with dietitian consult # Chronic constipation, present on admission, ongoing - Continue with stool softeners and enema # Hypochloremic hyponatremia, present on admission, resolved # Transaminitis, chronic, present on admission, improving - Continue to trend while in-house # Normocytic normochromic Anemia, present on admission, stable - Likely secondary to patient's hereditary hemorrhagic telangiectasia - Patient has history of multiple blood transfusions for chronic anemia. - Threshold for transfusion is a hemoglobin of 8 - Followup daily H/H # Ulcerated gastroesophageal junction, with history of upper GI bleed. - Pt recently had procedure performed (reports laser treatment of upper GI bleed at [facility]. - Appreciate GI consult. will followup with recommendations # Irregular gastroesophageal junction. 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 Transfuse if Hgb drop further Dispo: 2-3 days pending removal of the the drain. VTE Prophylaxis: Sub-Q Heparin (Unfractionated) VTE Mechanical Devices: Intermittant Pneumatic CD Resuscitation Status: CPR: Attempt Resuscitation Nick Fragoso Dec 25, 2016 15:12
--- NOTE | 2016-12-25 18:33 | NUR ---
Pigtail drain at 1730 hrs 10ml flush of drain. patient tolerated well. total drain output on day shift was 15ml, after subtracting the 10ml flush. patient reported earlier today that she's feeling a little better today, still tired and "weak feeling". ambulated with PT using FWW today, tolerated well. FWW in room with SBA. continue to monitor.
--- NOTE | 2016-12-25 22:24 | NUR ---
Pain Pt had some abdominal pain earlier this evening and was treated with IV dilaudid. She currently rates her pain at a 2. Pt is aware to notify the nurse when her pain increases to a level she cannot tolerate. PIGTAIL drain open and draining to gravity Will cont to monitor
[2016-12-26] VITALS (7 sets, daily range): BP systolic 102–130; BP diastolic 54–66; PULSE 72–91; RESP 18–20; O2SAT 95–99
[2016-12-26] MEDS: HYDROmorphone 0.5 mg/0.5 mL iSecure Syringe IVPUSH PRN ×3 (00:40→21:07)
[2016-12-26 05:51] LABS: Mean Corpuscular Hemoglobin 28.2 pg (27.0-35.0); Mean Corpuscular Volume 92.2 fL (81-100)
[2016-12-26] MEDS: NORETHINDRONE PO SCH (08:30)
[2016-12-26] MEDS: ETHINYL ESTRADIOL PO SCH (08:30)
[2016-12-26] MEDS: Polyethylene Glycol (PEG) 17 Gm Powder PO SCH (08:41)
[2016-12-26] MEDS: Pantoprazole 20 mg ER24 Tablet PO SCH ×2 (08:41→15:34)
[2016-12-26] MEDS: Ertapenem Inj 1,000 MG in 0.9% Sodium Chloride 50 ML IV SCH (12:11)
--- NOTE | 2016-12-26 13:24 | NUR ---
Social Work: Readiness for d/c Data: Pt is on day 9 of hospitalization. EMR reviewed. Pt discussed in rounds. states that pt is likely to d/c in 1-2 days. DATA REDUCTION TECHNICIAN called [facility] and informed them of this, requested an assessment on 12/27/16. Dorothy MARSH was not available to talk, DATA REDUCTION TECHNICIAN awaiting phone call back about time they will be in. DATA REDUCTION TECHNICIAN will continue to follow. Assessment: Pt from [facility]. Plan: Pt will be reassessed by [facility], hopefully on 12/27/16, and go back there with Hayley PEREZ Rn/PT. DATA REDUCTION TECHNICIAN will continue to follow. SOHAN Kim
--- NOTE | 2016-12-26 13:51 | PROG NOTE ---
[address] [address] PROGRESS NOTE PATIENT: STEWART UREÑA : 1935 MR#: [id number] ADMIT: 12/17/2016 JOB ID: [id number] DATE: 12/26/2016 SUBJECTIVE: The patient is an 81-year-old woman with hereditary hemorrhagic telangiectasia. She is hospitalized following drainage of a right liver abscess. Percutaneous drains are still present, and she remains on broad-spectrum antibiotic coverage with ertapenem 1000 mg IV daily, which she is tolerating well. She is finally beginning to feel a bit better. OBJECTIVE: Vitals: T 36.9, P 79, R 18, BP 102/57, O2 saturation 99% on room air. HEENT: Conjunctivae slightly pale. Mucous membranes moist. No oral lesions. Chest: Clear. Cardiac exam: Regular rate and rhythm with normal S1, S2. Abdomen: Tenderness in the right upper abdomen. Active bowel tones. Hepatic abscess drain in place. Extremities: No edema, 2+ distal pulses. Neuro: Mild generalized weakness but otherwise nonfocal. LABORATORIES: WBC 4.4, hemoglobin 8.7, hematocrit 28.5%, MCV 92, platelets 588,000. ASSESSMENT AND PLAN: 1. Hereditary hemorrhagic telangiectasia: No indication for transfusion support. 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 She remains high risk for bleeding, and will likely require future transfusion support. [facility], but we will delay this for approximately two weeks, given her current hospitalization. 2. Right liver abscess: A 6 cm mass in the right liver, which was an abscess, was positive for both Escherichia coli and Klebsiella. She remains on treatment with intravenous ertapenem 1000 mg daily, and will require additional outpatient oral antibiotics. Continue to monitor. MTDD
--- NOTE | 2016-12-26 14:19 | NUR ---
NUTRITION FOLLOW UP: Assess: 80 YO F with liver abscess s/p CT drain placed with hopefully removal of drain in the next 24-48 hours. New DVT noted treated with lovenox. RD spoke with pt during past admits on 09/11/16 and 11/05/16 and it appears wt has increased since previous admit. RN notes increased pain associated with eating. No new weight on pt since 12/18. PMHx: Ulcerated gastroesophageal junction, Irregular gastroesophageal junction, Gastric and duodenal hereditary hemorrhagic telangiectasia, Hypothyroid, malnutrition, uterine fibroid. LABS: Reviewed. BUN 5, Cr .31. MEDICATIONS: Reviewed. DIET: Dysphagia Mechanical. PO intake improving with po now 50-85% of meals. GI: BM x 1 (12/25) SKIN: No issues noted ANTHROPOMETRICS: Current Wt: (12/17) 41.5 kg (standing scale) Past Admit Wt: 38.5 kg (Bed scale) IBW: 52.3 kg. UBW (November): 54 kg. Severe wt loss noted in past, but wt appears stable with slight increase over the past 3 months. ESTIMATED NEEDS: Malnutrition Calories: 1901-8883 kcal/day (30-35 kcal/kg IBW) Protein: 65-80 g/day (1.2-1.5 g/kg IBW) NUTRITION DIAGNOSIS: 1) Severe malnutrition related to chronic illness as evidenced by variable wt, visible loss of LBM/ fat--PERSISTS 2) Inadequate oral intake related to altered GI function as evidence by early satiety, BMI of 16.2--PERSISTS. INTERVENTION: 1) Continue to send ensure on all trays. 2) Pt has received high calorie/high protein education on 09/11/16 and 11/05/16. 3) Recommend new standing wt as no new wt since 12/17. MONITOR/EVALUATE: Diet tolerance, labs, weights, nutrition status. Follow per high nutrition risk guidelines.
--- NOTE | 2016-12-26 15:01 | PCM.PNMED ---
Subjective Date of Service Dec 26, 2016 Subjective Patient is doing well. She has an increased appetite and tolerates soft diet well. She denies nausea. No signs of bleeding. Percutaneous drains are still present, and she remains on broad-spectrum antibiotic coverage which she is tolerating well. Exam Vital Signs Vital Sign - Last Date Time Temp Pulse Resp B/P Pulse Ox O2 Delivery O2 Flow Rate FiO2 12/26/16 09:30 36.9 79 18 102/57 99 Room Air Intake and Output 12/25/16 12/25/16 12/26/16 Cumulative From/Thru 15:00 23:00 07:00 12/16/16 22:37 - 12/26/16 06:12 Intake Total 430 ml 180 ml 45961 ml Output Total 875 ml 1655 ml 01198 ml Balance -445 ml -1475 ml -2758 ml Intake Oral 380 ml 180 ml 4880 ml IV Total 50 ml 9074 ml Output Urine Total 860 ml 1650 ml 66076 ml Drainage Total 15 ml 5 ml 517 ml # Voids 7 # Bowel Movements 1 5 Exam General: Alert, Cooperative, No Acute Distress Head: Normal Eyes: Scleral Anicteric Nose: Mucous Membr Moist/[place] Mouth: Mucous Membr Moist/[place] Neck: Supple Chest & Lungs: Chest Wall Normal, Clear to auscultation bilaterally Cardiovascular: Regular Rate/Rhythm Abdomen: Tender (mild at right upper quad), Non-distended, Normoactive bowel tones, Soft, Other (hepatic drain in place) Extremities: No cyanosis/clubbing/edema Neurological: Grossly Neurologically Intact, Normal Speech Lab and Diagnostics Result Diagram: 12/26/16 0505 12/26/16 0505 X-Rays, CTs and MRIs CT Abd / Pelvis Interpretation CONCLUSION: Heterogeneous appearing liver with a focal hypodense area noted in the liver measuring up to 14cm in size. Possible considerations include infection and tumor. Pelvic mass in the region of the uterus. While fibroid is a consideration. Other tumor would be difficult to exclude. Findings suggestion of constipation. Cardiomegaly. 5mm left lower pulmonary nodule. 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 Bynum oncology), that has doubled in size in the span of 2 weeks. Presented to the ED complaining of upper abdominal pain in a bandlike distribution described as well and achy. # Acute liver abscess, present on admission. Ongoing - Status post CT-guided drain placement for a hepatic abscess on 12/17/[address] Joel (Interventional radiology). consult and assistance is greatly appreciated. - Reviewed repeat CT with IR (Dr. Joel) on 12/24. Per recommendation will flush the drain with 10cc NS q shift and if no significant drain over the next 48 hours (less than 10-20 cc/24hr) then will consider repeat CT to determine if evidence of loculated abscess or to remove the drain at that point. - Continue to monitor drain output - A 6 cm mass in the right liver, which was an abscess, was positive for both Escherichia coli and klebsiella.Culture growing padilla-sensitive E. Coli - Appreciate ID and GI consults. will followup with recommendations - Continue Ertapenem 1000 mg daily intravenously (started on 12/20/16 per ID recs (plan on continuing the ertapenem at least through December 31)). Patient will require additional outpatient oral antibiotics. # Acute sepsis, present on admission, clinically resolved. - Vital signs in the ED: Temperature 37.9, pulse 115, respiratory rate 18, blood pressure 126/57, with a map of 80, pulse ox 100% on room air. - Hemogram showed: White blood cell count was 21.8 with 90.5% neutrophils, - Source likely liver abscess and bacteremia - Further treatment and management as noted below # Acute left upper extremity DVT at site of PICC line. Not present on admission - PICC line removed on 12/20 - Per discussion with hematology (Dr. Travis on 12/[address] Bynum on 12/23) decision made to treat patient with Lovenox given extent of DVT despite possible risk of bleeding. Risks and benefits were discussed with patient on afternoon of 12/20 and she is in agreement with current treatment and plan. # Acute E. Coli bacteremia, present on admission. Active - Antibiotics and ID consult followup as noted above # Liver mass versus abscess, present on admission, active - Appreciate GI consult. will followup with recommendations # Leukocytosis, present on admission, resolved - Continue with infectious workup and treatment as noted above # Dehydration, present on admission, Resolved - Continue with supportive care and followup # Cachexia, chronic, present on admission, active - Patient has poor by mouth intake fluid and food - Followup with dietitian consult # Chronic constipation, present on admission, ongoing - Continue with stool softeners and enema # Hypochloremic hyponatremia, present on admission, resolved # Transaminitis, chronic, present on admission, improving - Continue to trend while in-house # Normocytic normochromic Anemia, present on admission, stable - Likely secondary to patient's hereditary hemorrhagic telangiectasia - Patient has history of multiple blood transfusions for chronic anemia. - Threshold for transfusion is a hemoglobin of 8 - Followup daily H/H # Ulcerated gastroesophageal junction, with history of upper GI bleed. - Pt recently had procedure performed (reports laser treatment of upper GI bleed at [facility]. - Appreciate GI consult. will followup with recommendations # Irregular gastroesophageal junction. 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 Transfuse if Hgb drop further - No indication for transfusion support at this time. - She is scheduled to be [facility] next week, but it will be delayed this for approximately two weeks, given her current hospitalization. Dispo: 2-3 days pending removal of the the drain. Pain Evaluation: Adequate Pain Control VTE Prophylaxis: Sub-Q Heparin (Unfractionated) VTE Mechanical Devices: Intermittant Pneumatic CD Resuscitation Status: CPR: Attempt Resuscitation Attending Statement The patient was seen and examined together with Dr. Delgado on 12/26/2016 and I agree with the history, exam and plan as outlined in the note above. . Nithya Delgado DO Dec 26, 2016 15:01 Alhaji To MD Dec 27, 2016 07:11
--- NOTE | 2016-12-26 15:40 | PROG NOTE ---
[address] [address] PROGRESS NOTE PATIENT: STEWART UREÑA : 1935 MR#: [id number] ADMIT: 12/17/2016 JOB ID: [id number] DATE: 12/26/2016 INFECTIOUS DISEASE FOLLOWUP NOTE: REASON FOR FOLLOWUP: Large polymicrobial liver abscess. INTERVAL HISTORY: The patient has been doing fairly well overnight. No fevers, chills, or sweats but she just feels really tired today. She states she is having no particular cough, shortness of breath, or chest pain. She denies nausea, vomiting, or much right-sided abdominal pain. She notes her drain is still in place and hopes it comes out before too long but she states she is just not ready to go home yet due to this somewhat surprisingly worse lethargy. LABORATORIES: Include a white count of 4400, her crit today is 28. Creatinine is 0.31. Alk phos continues to drop. Micro studies include the E. coli and klebsiella we isolated from blood and urine earlier. IMPRESSION: This patient continues to do reasonably well despite her many medical problems and profound debility. She is on ertapenem, and our plan is to continue through January 01 before transition to long-term Cipro and Flagyl. RECOMMENDATIONS: 1. Will continue with ertapenem. 2. I would check a procalcitonin, as well as a repeat set of LFT tomorrow. 3. Will continue to use peripheral IVs. I would absolutely not put a PICC line in the patient. 4. We await a decision as to duration of the abdominal drain.
--- NOTE | 2016-12-26 17:41 | NUR ---
Drain/pain: Pigtail drain flushed w/10mls saline. Total drain output, minus 10ml flush, equals 20mls. Patient complained of 5/10 abdominal pain. Dilaudid 0.5mg IV administered. On reassessment, abdominal pain 2/10 and patient reports as tolerable.
--- NOTE | 2016-12-26 22:56 | NUR ---
Pain Received report at 1999, pt asked for Dilaudid for abd pain, given with good results that pt was asleep. Left room with call light at bedside.
[2016-12-27 06:00] VITALS: BP 122/59; PULSE 82; RESP 17; O2SAT 95
--- NOTE | 2016-12-27 06:44 | NUR ---
Drain Flushed biliary drain with 10 NS, drain patent, 30 cc pale green fluid out of pigtail.
[2016-12-27 07:06] LABS: BASOPHILS % (AUTO) 1.6 % (0-3); EOSINOPHILS % (AUTO) 1.3 % (0-5); MONOCYTES % (AUTO) 16.3 % (4-12); Mean Corpuscular Hemoglobin 28.4 pg (27.0-35.0); Mean Corpuscular Volume 93.2 fL (81-100); NEUTROPHILS % (AUTO) 60.7 % (40-74); Platelet Count 534 bil/L (150-400)
[2016-12-27] MEDS: Pantoprazole 20 mg ER24 Tablet PO SCH ×2 (09:14→17:03)
[2016-12-27] MEDS: Polyethylene Glycol (PEG) 17 Gm Powder PO SCH (09:14)
--- NOTE | 2016-12-27 10:18 | PROG NOTE ---
[address] [address] PROGRESS NOTE PATIENT: STEWART UREÑA : 1935 MR#: [id number] ADMIT: 12/17/2016 JOB ID: [id number] DATE: 12/27/2016 INFECTIOUS DISEASE FOLLOWUP NOTE: REASON FOR FOLLOWUP: Polymicrobial liver abscess. INTERVAL HISTORY: The patient reports she has been feeling quite well overnight and has much more energy than last night. Her appetite is much improved as well, and she is eating a healthy and large breakfast. She denies fevers, chills, or sweats. No new cough, shortness of breath, or chest pain. No right upper quadrant pain. She still has a drain in place, and she reports that she was told by the nurse this morning it drained 30 cc overnight. So, tentatively, the plan would be to leave it in place a bit longer. PHYSICAL EXAMINATION: Reveals an extremely thin woman who looks much more perky than yesterday. Temperature 37.1, blood pressure 122/59, pulse 82, respiratory rate 17. She is in no acute distress. Oral cavity negative. Lungs: A few crackles at the bases but pretty good air movement. Cardiac tones: No change and no new murmur. Abdomen: Without any tenderness. Right upper quadrant drain still in place. Extremities without edema. LABORATORIES: Include a white count of 4500, platelet count 534. Creatinine less than 0.3. Alk phos 358. ALT and AST are normal. Urinalysis without white cells. Micro studies include the cultures from the liver abscess which grew the klebsiella and the E. coli. No new cultures of interest. IMAGING: Our last imaging was four days ago when she had an abdominal CT. IMPRESSION: Liver abscess with polymicrobial benny including the klebsiella, which has typically been seen in the so called variant of liver abscesses. The patient is doing well despite her underlying medical problems, which include the left upper extremity deep venous thrombosis, as well as her underlying hemorrhagic telangiectasias. RECOMMENDATIONS: 1. Continue with the ertapenem presumably through the which would be this upcoming Friday. 2. The decision on pulling the drain, of course, will remain in the hands of the interventional radiologist but conceivably that will be pulled in the near future. 3. No central lines in this patient. 4. Once she finishes her IV antibiotics on the morning of the , will transition to oral Cipro and Flagyl probably for a period of many weeks while we follow the size and, hopefully, the resolution of her liver abscess by imaging studies.
--- NOTE | 2016-12-27 11:41 | NUR ---
Social Work: Continued d/c planning Data: CULLET WASHER spoke with [facility] and Dorothy assessed pt this morning. Dorothy was unavailable to speak and CULLET WASHER left a message for her to call CULLET WASHER back regarding their decision on the reassessment. CULLET WASHER will continue to follow. Assessment: Pt from [facility]. Plan: Pt will d/c back to [facility] with Hayley PEREZ RN/PT pending decision from [place]. CULLET WASHER will continue to follow. SOHAN Kim Addendum: 12/27/16 at 1157 by LAURI ABDUL CULLET WASHER spoke with Dorothy, they can take pt back. She asked about the patch on pt to make sure that it is indeed preventative for wounds, CULLET WASHER confirmed this with RN. CULLET WASHER notified during rounds that pt will d/c with [facility]. CULLET WASHER will continue to follow. SOHAN Kim
[2016-12-27] MEDS: HYDROmorphone 0.5 mg/0.5 mL iSecure Syringe IVPUSH PRN ×2 (12:30→20:49)
[2016-12-27] MEDS ORDERED: 0.9% Sodium Chloride 250 ML ONE (12:58)
[2016-12-27] MEDS: Ertapenem Inj 1,000 MG in 0.9% Sodium Chloride 50 ML IV SCH (13:00)
--- NOTE | 2016-12-27 13:29 | NUR ---
NUTRITION FOLLOW UP: Assess: 80 YO F with liver abscess s/p CT drain placed which will hopefully be removed in the near future. Pt to remain on IV antibiotics till 01/01 per notes. DVT currently being treated with Lovenox. PO intake remains 50-85% of meals yesterday. No po intake reported yet today. No new weight on pt since 12/17. PMHx: Ulcerated gastroesophageal junction, Irregular gastroesophageal junction, Gastric and duodenal hereditary hemorrhagic telangiectasia, Hypothyroid, malnutrition, uterine fibroid. LABS: Reviewed. Alb 2.4. MEDICATIONS: Reviewed. DIET: Dysphagia Mechanical, Ensure all trays. PO intake now 50-85% of meals. GI: BM x 1 (12/26) SKIN: No issues noted ANTHROPOMETRICS: Current Wt: (12/17) 41.5 kg (standing scale) Past Admit Wt: 38.5 kg (Bed scale) IBW: 52.3 kg. UBW (November): 54 kg. Severe wt loss noted in past, but wt appears stable with slight increase over the past 3 months. ESTIMATED NEEDS: Malnutrition Calories: 8247-5987 kcal/day (30-35 kcal/kg IBW) Protein: 65-80 g/day (1.2-1.5 g/kg IBW) NUTRITION DIAGNOSIS: 1) Severe malnutrition related to chronic illness as evidenced by variable wt, visible loss of LBM/ fat--PERSISTS 2) Inadequate oral intake related to altered GI function as evidence by early satiety, BMI of 16.2--PERSISTS. INTERVENTION: 1) Continue to send ensure on all trays. 2) Recommend new standing wt as no new wt since 12/17. 3) Pt has received high calorie/high protein education on 09/11/16 and 11/05/16. MONITOR/EVALUATE: PO intake, labs, weights, nutrition status. Follow per moderate nutrition risk guidelines.
[2016-12-27 13:38] VITALS: BP 114/59; PULSE 71; RESP 18; O2SAT 94
--- NOTE | 2016-12-27 14:51 | PCM.PNMED ---
Subjective Date of Service Dec 27, 2016 Exam Vital Signs Vital Sign - Last Date Time Temp Pulse Resp B/P Pulse Ox O2 Delivery O2 Flow Rate FiO2 12/27/16 13:38 36.7 71 18 114/59 94 Room Air Intake and Output 12/26/16 12/26/16 12/27/16 Cumulative From/Thru 15:00 23:00 07:00 12/16/16 22:37 - 12/27/16 05:42 Intake Total 50 ml 936 ml 20146 ml Output Total 1270 ml 09901 ml Balance 50 ml -334 ml -3042 ml Intake Oral 936 ml 5816 ml IV Total 50 ml 9124 ml Output Urine Total 1250 ml 18536 ml Drainage Total 20 ml 537 ml # Voids 7 # Bowel Movements 1 6 Lab and Diagnostics o/n improved energy, no echo hx, 30cc overnight, anemia worse, thrombocytosis worse.able to use commode w. walker. tolerating PT on RA NAD A and O x 3 CTAB RRR soft nt nd + BS no edema green opaque drainage from liver abscess drain Result Diagram: 12/27/16 0640 12/27/16 0640 X-Rays, CTs and MRIs CT Abd / Pelvis Interpretation CONCLUSION: Heterogeneous appearing liver with a focal hypodense area noted in the liver measuring up to 14cm in size. Possible considerations include infection and tumor. Pelvic mass in the region of the uterus. While fibroid is a consideration. Other tumor would be difficult to exclude. Findings suggestion of constipation. Cardiomegaly. 5mm left lower pulmonary nodule. 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 Bynum oncology), that has doubled in size in the span of 2 weeks. Presented to the ED complaining of upper abdominal pain in a bandlike distribution described as well and achy. # Acute liver abscess, present on admission. Ongoing - Status post CT-guided drain placement for a hepatic abscess on 12/17/[address] Joel (Interventional radiology). dc when output < 20cc/day, currently 30cc/ day - Reviewed repeat CT with IR (Dr. Joel) on 12/24. Per recommendation will flush the drain with 10cc NS q shift and if no significant drain over the next 48 hours (less than 10-20 cc/24hr) then will consider repeat CT to determine if evidence of loculated abscess or to remove the drain at that point. - Continue to monitor drain output - A 6 cm mass in the right liver, which was an abscess, was positive for both Escherichia coli and klebsiella.Culture growing padilla-sensitive E. Coli - Appreciate ID and GI consults. - Continue Ertapenem 1000 mg daily intravenously (started on 12/20/16 per ID recs (plan on continuing the ertapenem at least through December 31)). Patient will require additional outpatient oral antibiotics. --no echo not gram positive, unlikely endocarditis risk # Acute sepsis, present on admission, clinically/leuckoytosis resolved. - Vital signs in the ED: Temperature 37.9, pulse 115, respiratory rate 18, blood pressure 126/57, with a map of 80, pulse ox 100% on room air. - Hemogram showed: White blood cell count was 21.8 with 90.5% neutrophils, - Source likely liver abscess and bacteremia - Further treatment and management as noted below # Acute left upper extremity DVT at site of PICC line. Not present on admission - PICC line removed on 12/20 - Per discussion with hematology (Dr. Travis on 12/[address] Bynum on 12/23) decision made to treat patient with Lovenox given extent of DVT despite possible risk of bleeding. Risks and benefits were discussed with patient on afternoon of 12/20 and she is in agreement with current treatment and plan. # Transaminitis, chronic, present on admission, improving - Continue to trend while in-house # Normocytic normochromic Anemia, present on admission, stable - Likely secondary Gastric and duodenal hereditary hemorrhagic telangiectasia - Patient has history of multiple blood transfusions for chronic anemia. - energy good currently despite Hg <8, - Followup daily H/H --consider holding lovenox vs transfuse when HG is 6-7 or energy worse # Ulcerated gastroesophageal junction, with history of upper GI bleed s/p ometal pathc hx. - Pt recently had procedure performed (reports laser treatment of upper GI bleed at [facility]. - Appreciate GI consult. She is scheduled to be [facility] next week, but it will be delayed this for approximately two weeks, given her current hospitalization. # Dehydration, present on admission, Resolved # Cachexia, chronic, present on admission, active improving oral intake # Chronic constipation, present on admission, ongoing - Continue with stool softeners and enema # Hypochloremic hyponatremia, present on admission, resolved # Hypothyroidism, chronic - Status post partial thyroidectomy - Continue patient's home medication Dispo: pending removal of the the drain. VTE Prophylaxis: Sub-Q Heparin (Unfractionated) VTE Mechanical Devices: Intermittant Pneumatic CD Resuscitation Status: CPR: Attempt Resuscitation Ant Hanks MD Dec 27, 2016 14:51 - Patient has history of multiple blood transfusions - Followup h/h closely. Transfuse if Hgb drop further - No indication for transfusion support at this time. - She is scheduled to be seen in the Cancer [facility] next week, but it will be delayed this for approximately two weeks, given her current hospitalization. Dispo: 2-3 days pending removal of the the drain. VTE Prophylaxis: Sub-Q Heparin (Unfractionated) VTE Mechanical Devices: Intermittant Pneumatic CD Resuscitation Status: CPR: Attempt Resuscitation Ant Hanks MD Dec 27, 2016 14:51
[2016-12-27 20:45] VITALS: BP 131/55; PULSE 85; RESP 18; O2SAT 95
[2016-12-28 05:56] VITALS: BP 126/69; PULSE 77; RESP 18; O2SAT 99
--- NOTE | 2016-12-28 06:53 | NUR ---
Uneventful Night Pt slept most of the night after receiving dilaudid and Tylenol for pain. No complaints. Alert and oriented
[2016-12-28] MEDS: Polyethylene Glycol (PEG) 17 Gm Powder PO SCH (07:53)
[2016-12-28] MEDS: Pantoprazole 20 mg ER24 Tablet PO SCH ×2 (07:53→17:02)
--- NOTE | 2016-12-28 10:24 | PCM.PNMED ---
Subjective Date of Service Dec 28, 2016 Exam Vital Signs Vital Sign - Last Date Time Temp Pulse Resp B/P Pulse Ox O2 Delivery O2 Flow Rate FiO2 12/28/16 05:56 36.7 77 18 126/69 99 Room Air Intake and Output 12/27/16 12/27/16 12/28/16 Cumulative From/Thru 15:00 23:00 07:00 12/16/16 22:37 - 12/28/16 06:32 Intake Total 200 ml 618 ml 200 ml 35141 ml Output Total 930 ml 800 ml 1075 ml 80306 ml Balance -730 ml -182 ml -875 ml -4829 ml Intake Oral 200 ml 618 ml 200 ml 6834 ml IV Total 9124 ml Output Urine Total 900 ml 800 ml 1075 ml 76400 ml Drainage Total 30 ml 567 ml # Voids 7 # Bowel Movements 0 1 7 Lab and Diagnostics Result Diagram: 12/28/16 0630 12/27/16 0640 X-Rays, CTs and MRIs CT Abd / Pelvis Interpretation CONCLUSION: Heterogeneous appearing liver with a focal hypodense area noted in the liver measuring up to 14cm in size. Possible considerations include infection and tumor. Pelvic mass in the region of the uterus. While fibroid is a consideration. Other tumor would be difficult to exclude. Findings suggestion of constipation. Cardiomegaly. 5mm left lower pulmonary nodule. Radiologist: Andrea Singh MD Assessment & Plan o/n improved energy, 30cc overnight, anemia no worse, thrombocytosis.able to use commode w. walker. 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 Bynum oncology), found to have liver abscess treated by IR drain and antibiotic for kleb/ecoli bacteremia/abscess. Presented to the ED complaining of upper abdominal pain in a bandlike distribution described as well and achy. # Acute liver abscess, present on admission. Ongoing - CT-guided drain placement for a hepatic abscess on 12/17/[address] Joel ( Interventional radiology). --drain output currently >20cc/day, Repeat CT with IR (Dr. Joel) 12/24. flush the drain with 10cc NS q shift (less than 10-20 cc/24hr) then repeat CT to determine if loculated abscess vs remove the drain. - Escherichia coli and klebsiella.Culture growing padilla-sensitive E. Coli - Ertapenem 1000 mg daily intravenously (started on 12/20/[address] Webber/KELLY recs - at least through December 31). Patient will require additional outpatient oral antibiotics. --no echo since not gram positive, unlikely endocarditis risk # Acute sepsis, present on admission, clinically/leuckoytosis resolved. - Vital signs in the ED: Temperature 37.9, pulse 115, respiratory rate 18, blood pressure 126/57, with a map of 80, pulse ox 100% on room air.White blood cell count 21.8 with 90.5% neutrophils, # Acute left upper extremity DVT at site of PICC line. Not present on admission - PICC line removed on 12/20 - Per discussion with hematology (Dr. Travis on 12/[address] Bynum on 12/23) - treat patient with Lovenox given extent of DVT despite possible risk of bleeding. --Risks and benefits were discussed with patient on afternoon of 12/20 and she is in agreement with current treatment and plan. # Transaminitis, chronic, present on admission, improving - monitor # Normocytic normochromic Anemia, present on admission - secondary Gastric and duodenal hereditary hemorrhagic telangiectasia - energy good - Followup daily H/H -- transfuse when HG is 6-7 or energy worse # Ulcerated gastroesophageal junction, with history of upper GI bleed s/p ometal pathc hx. - Appreciate GI consult. She was scheduled to be seen [facility], but it will be delayed, given her current hospitalization. # Dehydration, present on admission, Resolved # Cachexia, chronic, present on admission, active improving oral intake # Chronic constipation, present on admission, ongoing - Continue with stool softeners and enema # Hypochloremic hyponatremia, present on admission, resolved # Hypothyroidism, chronic - Status post partial thyroidectomy - Continue patient's home medication Dispo: pending removal of the the drain. VTE Prophylaxis: Sub-Q Heparin (Unfractionated) Resuscitation Status: CPR: Attempt Resuscitation VTE Prophylaxis: Sub-Q Heparin (Unfractionated) VTE Mechanical Devices: Intermittant Pneumatic CD Resuscitation Status: CPR: Attempt Resuscitation Ant Hanks MD Dec 28, 2016 10:24 VTE Prophylaxis: Sub-Q Heparin (Unfractionated) VTE Mechanical Devices: Intermittant Pneumatic CD Resuscitation Status: CPR: Attempt Resuscitation Ant Hanks MD Dec 28, 2016 10:24
[2016-12-28] MEDS: Ertapenem Inj 1,000 MG in 0.9% Sodium Chloride 50 ML IV SCH (11:58)
[2016-12-28 13:14] VITALS: BP 100/61; PULSE 83; RESP 16; O2SAT 98
[2016-12-28] MEDS: HYDROmorphone 0.5 mg/0.5 mL iSecure Syringe IVPUSH PRN ×2 (17:39→23:46)
[2016-12-28 20:51] VITALS: BP 125/58; PULSE 88; RESP 18; O2SAT 95
[2016-12-29 05:21] VITALS: BP 123/63; PULSE 71; RESP 18; O2SAT 97
[2016-12-29] MEDS: NORETHINDRONE PO SCH (07:40)
[2016-12-29] MEDS: Polyethylene Glycol (PEG) 17 Gm Powder PO SCH (07:40)
[2016-12-29] MEDS: ETHINYL ESTRADIOL PO SCH (07:40)
[2016-12-29] MEDS: Pantoprazole 20 mg ER24 Tablet PO SCH ×2 (07:40→16:28)
[2016-12-29] MEDS: Ertapenem Inj 1,000 MG in 0.9% Sodium Chloride 50 ML IV SCH (12:09)
[2016-12-29 13:26] VITALS: BP 96/55; PULSE 85; RESP 18; O2SAT 97
--- NOTE | 2016-12-29 14:03 | PCM.PNMED ---
Subjective Date of Service Dec 29, 2016 Exam Vital Signs Vital Sign - Last Date Time Temp Pulse Resp B/P Pulse Ox O2 Delivery O2 Flow Rate FiO2 12/29/16 13:26 36.7 85 18 96/55 97 Room Air Intake and Output 12/28/16 12/28/16 12/29/16 Cumulative From/Thru 14:59 22:59 06:59 12/16/16 22:37 - 12/29/16 06:16 Intake Total 939 ml 318 ml 84749 ml Output Total 658 ml 450 ml 73218 ml Balance 281 ml -132 ml -4680 ml Intake Oral 874 ml 318 ml 8026 ml IV Total 65 ml 9189 ml Output Urine Total 600 ml 450 ml 78675 ml Urine/Stool Mix 3 ml 3 ml Drainage Total 55 ml 622 ml # Voids 2 9 # Bowel Movements 7 Lab and Diagnostics Result Diagram: 12/29/16 0605 12/27/16 0640 X-Rays, CTs and MRIs CT Abd / Pelvis Interpretation CONCLUSION: Heterogeneous appearing liver with a focal hypodense area noted in the liver measuring up to 14cm in size. Possible considerations include infection and tumor. Pelvic mass in the region of the uterus. While fibroid is a consideration. Other tumor would be difficult to exclude. Findings suggestion of constipation. Cardiomegaly. 5mm left lower pulmonary nodule. Radiologist: Andrea Singh MD Assessment & Plan O/N ongoing improved energy, able to use commode w. walker. tolerating PT. no complaints. EXAM on RA NAD A and O x 3 CTAB RRR soft nt nd + BS no edema liver drain green biliuous fluid > 30cc in bag currently Assessment & Plan Assessment & Plan 80 year old female with hereditary hemorrhagic telangiectasia (HHT) associated w / GI bleeds/blood transfusions biweekly/gastric perforation-omental patch 2016, chronic constipation secondary to large pelvic mass (likely uterine fibroid), hypothyroidism, and rapidly enlarging liver mass (followed by Dr. Bynum oncology), found to be liver abscess s/p IR drain/ertapenem for kleb/ ecoli bacteremia/abscess. Presented to the ED complaining of upper abdominal pain in achy bandlike. no associated UTIs. # Escherichia coli and klebsiella Acute liver abscess WITH BACTEREMIA ASSOCIATED TRANSAMINITIS, present on admission. Ongoing PENDING CT FRIDAY TO EVALUATE FOR LOCULATIONS, POSSIBILITY TO REMOVE DRAIN, SINCE IV ABX WILL BE SWITCHED TO PO ON /FRI THEN ABLE TO BE DISCHARGED. - CT-guided drain placement for a hepatic abscess on 12/17/[address] Joel ( Interventional radiology). --drain output currently >20cc/day. flush with 10cc NS q shift (goal less than 10-20 cc/24hr PER IR). - Ertapenem 1000 mg daily intravenously (started on 12/20/[address] Webber/ID recs - at least through December 31). LIKELY CIPROFLOXACIN BLANKET WEAVER ON DISCHARGE. --no echo since not gram positive, unlikely endocarditis risk # Acute sepsis, present on admission, clinically/leuckoytosis resolved. - Vital signs in the ED: Temperature 37.9, pulse 115, respiratory rate 18, blood pressure 126/57, with a map of 80, pulse ox 100% on room air.White blood cell count 21.8 with 90.5% neutrophils, # Acute left upper extremity DVT at site of PICC line. Not present on admission - PICC line removed on 12/20 - Per discussion with hematology (Dr. Travis on 12/[address] Bynum on 12/23) - treat patient with Lovenox given extent of DVT despite possible risk of bleeding FROM HER HHT. --Risks and benefits were discussed with patient on afternoon of 12/20 # Normocytic normochromic Anemia, present on admission - secondary Gastric and duodenal hereditary hemorrhagic telangiectasia - energy good - Followup daily H/H -- transfuse when HG is 6-7 or energy worse # Ulcerated gastroesophageal junction, with history of upper GI bleed s/p ometal patcH hx. - Appreciate GI consult. She was scheduled to be seen in the Cancer Center, but it will be delayed, given her current hospitalization. # Dehydration, present on admission, Resolved # Cachexia, chronic, present on admission, active improving oral intake # Chronic constipation, present on admission, ongoing - Continue with stool softeners and enema # Hypochloremic hyponatremia, present on admission, resolved # Hypothyroidism, chronic - Status post partial thyroidectomy - Continue patient's home medication Dispo: pending removal of the the drain/IV ABX COURSE. ACCEPTED BY [facility] W/ HOME HEALTH VTE Prophylaxis: Sub-Q Heparin (Unfractionated) VTE Mechanical Devices: Venous Foot Pump Resuscitation Status: CPR: Attempt Resuscitation Ant Hanks MD Dec 29, 2016 14:03 VTE Prophylaxis: Sub-Q Heparin (Unfractionated) Resuscitation Status: CPR: Attempt Resuscitation VTE Prophylaxis: Sub-Q Heparin (Unfractionated) VTE Mechanical Devices: Venous Foot Pump Resuscitation Status: CPR: Attempt Resuscitation Ant Hanks MD Dec 29, 2016 14:03
[2016-12-29] MEDS: HYDROmorphone 0.5 mg/0.5 mL iSecure Syringe IVPUSH PRN ×2 (14:34→20:18)
[2016-12-29 21:05] VITALS: BP 113/63; PULSE 92; RESP 18; O2SAT 96
[2016-12-30] VITALS (7 sets, daily range): BP systolic 93–125; BP diastolic 52–68; PULSE 79–94; RESP 16–20; O2SAT 94–96
[2016-12-30] MEDS: HYDROmorphone 0.5 mg/0.5 mL iSecure Syringe IVPUSH PRN ×3 (02:20→20:19)
--- NOTE | 2016-12-30 06:10 | NUR ---
pain pt requested IV dilaudid twice this shift for abdominal pain. otherwise she had no complaints. she has been alert and oriented and has slept for most of the night. care continues.
[2016-12-30] MEDS: Pantoprazole 20 mg ER24 Tablet PO SCH ×2 (06:26→16:46)
[2016-12-30 06:47] LABS: Mean Corpuscular Hemoglobin 28.8 pg (27.0-35.0); Mean Corpuscular Volume 94.6 fL (81-100)
[2016-12-30] MEDS: Polyethylene Glycol (PEG) 17 Gm Powder PO SCH (08:07)
--- NOTE | 2016-12-30 09:01 | NUR ---
off floor pt is brought down in a W/C to have a CT of ABD.
[2016-12-30] MEDS ORDERED: 0.9% Sodium Chloride 250 ML IV ONE (09:10)
[2016-12-30] MEDS: Ertapenem Inj 1,000 MG in 0.9% Sodium Chloride 50 ML IV SCH (09:34)
--- NOTE | 2016-12-30 09:43 | NUR ---
antibiotic early per the pharmacist on [facility], "hang the antibiotic before the blood transfusion".
--- NOTE | 2016-12-30 11:23 | DRSVH ---
PROCEDURE: CT ABDOMEN WITH CONTRAST ([id number]) INDICATIONS: Ok to remove liver abscess drain now? loculations? TECHNIQUE: After the administration of oral and intravenous contrast, 5 mm thick sections acquired from the diap hragms to the iliac crests. 5 mm thick coronal and sagittal reformats were acquired. For radiation dose reduction, the following was used: automated exposure control, adjustment of mA and/or kV accor ding to patient size. COMPARISON: [facility], CT, CT ABD PELVIS W CON, 10/30/2016, 12:32. [facility], CT, CT ABD PELVIS W CON, 12/23/2016, 15:07. [facility], CT, CT ABCESS DRAIN PERITONEA L, 12/17/2016, 13:58. [facility], CT, CT ABD PELVIS W CON, 12/17/2016, 3:11. FINDINGS: Image quality: Excellent. Lung bases: Minimal to mild bilateral pleural effusions are present, decreased compared to prior exam . The heart is enlarged. Solid organs: The liver continues to demonstrate a focal area of low attenuation with multiple pocke ts of air as well as a drain in the inferior portion. The largest component measures approximately 30 mm AP by 32 mm transverse by 102 mm craniocaudal compared to 34 mm AP by 38 mm transverse by 105 mm craniocaudal. There remains low attenuation foci, likely used equipment sales representative of satellite fluid in the inf erior aspect of the liver, unchanged.. Gallbladder is contracted and grossly unremarkable. Biliary system is non dilated. Pancreas enhances normally. No adrenal nodules. Kidneys are normal in size, without hydronephrosis. Peritoneum and bowel: Contrast enhanced bowel loops appear normal in caliber. No free fluid or air. Prominent stool is present within the visualized colon. Nodes and vessels: No retroperitoneal or mesenteric adenopathy by size criteria. Aorta and inferior vena cava are normal in size. Bones: No suspicious bony lesions. No vertebral body compression fractures. Miscellaneous: No ventral hernias. IMPRESSION: 1. Mild interval decrease in size of previously identified hepatic abscess with drain as described ab ove. Given the small interval decrease in size, presence of septations or loculations not as well-see n on CT or thickening of the abscess contents which could impede drainage should be considered. Ultra sound may be helpful for further evaluation of septations. It addition, there is an unchanged appeara nce of likely fluid collections within the inferior aspect of the liver, separate from the larger col lection with drain. Dictated by: Franca Peace M.D. on 12/30/2016 at 11:10 Approved by: Franca Peace M.D. on 12/30/2016 at 11:21
--- NOTE | 2016-12-30 13:39 | NUR ---
Social Work: Continued d/c planning Data: Pt is on day 13 of hospitalization for hepatic abscess mass. EMR reviewed. Pt was discussed in morning rounds and will be here until 01/01 when she finishes IV antibiotics. Pt is from [facility] and they assessed her on 12/27, will accept her back at discharge. SW checked in with pt at bedside today re: PT recommendation for FWW. Pt stated she has one at home already. No further needs assessed at this time. ELECTRIC RANGE SERVICER will continue to follow. Assessment: Pt from [facility]. Plan: Pt to discharge back to [facility] when medically ready. SW will continue to follow for needs. SOHAN Russell
--- NOTE | 2016-12-30 14:00 | PCM.PNMED ---
Subjective Date of Service Dec 30, 2016 Subjective Feeling better overall. Liver drain output remains minimal but on repeat imaging today shows persistence of liver abscess with slight interval decrease in size, possible non visible septations or thick abscess. Remains afebrile. Exam Vital Signs Vital Sign - Last Date Time Temp Pulse Resp B/P Pulse Ox O2 Delivery O2 Flow Rate FiO2 12/30/16 12:45 37.0 80 16 110/64 12/30/16 05:13 96 Room Air Intake and Output 12/29/16 12/29/16 12/30/16 Cumulative From/Thru 15:00 23:00 07:00 12/16/16 22:37 - 12/30/16 06:41 Intake Total 1225 ml 200 ml 26425 ml Output Total 1050 ml 675 ml 07187 ml Balance 175 ml -475 ml -4980 ml Intake Oral 1120 ml 200 ml 9346 ml IV Total 105 ml 9294 ml Output Urine Total 1050 ml 675 ml 75293 ml Urine/Stool Mix 3 ml Drainage Total 622 ml # Voids 9 # Bowel Movements 7 Exam Gen. Cachectic patient lying comfortably in hospital bed HEENT: Head is normocephalic atraumatic, Pupils equal and reactive, extraocular movements intact, Lungs clear to auscultation bilaterally Heart regular rate and rhythm without murmurs gallops or rubs Abdomen soft nontender without hepatosplenomegaly,liver drain in place with green biliuous fluid > 30cc in bag currently Extremities pulses are present dorsalis pedis posterior tibialis and radial. tSkin is warm and dry there are no rashes, Psych alert and oriented to person place and time Neuro cranial nerves II through XII are grossly intact Lymph: There is no lymphadenopathy appreciated in the cervical supra infraclavicular regions : no burton IVs and Medications Medications Reviewed: Medications were reviewed in detail Lab and Diagnostics Result Diagram: 12/30/16 0635 12/30/16 0635 X-Rays, CTs and MRIs CT Abd / Pelvis Interpretation CONCLUSION: Heterogeneous appearing liver with a focal hypodense area noted in the liver measuring up to 14cm in size. Possible considerations include infection and tumor. Pelvic mass in the region of the uterus. While fibroid is a consideration. Other tumor would be difficult to exclude. Findings suggestion of constipation. Cardiomegaly. 5mm left lower pulmonary nodule. Radiologist: Andrea Singh MD Assessment & Plan 80 year old female with hereditary hemorrhagic telangiectasia (HHT) associated w / GI bleeds/blood transfusions biweekly/gastric perforation-omental patch 2016, chronic constipation secondary to large pelvic mass (likely uterine fibroid), hypothyroidism, and rapidly enlarging liver mass (followed by Dr. Bynum oncology), found to be liver abscess s/p IR drain/ertapenem for kleb/ ecoli bacteremia/abscess. Presented to the ED complaining of upper abdominal pain in achy bandlike. no associated UTIs. # Escherichia coli and klebsiella Acute liver abscess WITH BACTEREMIA , present on admission. Ongoing -Liver drain output remains minimal but on repeat imaging today 12/30 shows persistence of liver abscess with slight interval decrease in size, possible non visible septations or thick abscess. reconsulted surgery - CT-guided drain placement for a hepatic abscess on 12/17/[address] Joel ( Interventional radiology). --drain output currently >20cc/day. flush with 10cc NS q shift (goal less than 10-20 cc/24hr PER IR). - Ertapenem 1000 mg daily intravenously (started on 12/20/[address] Webber/ID recs - at least through December 31). LIKELY CIPROFLOXACIN SENIOR CARE ON DISCHARGE. --no echo since not gram positive, unlikely endocarditis risk # Acute sepsis, present on admission, clinically/leucocytosis resolved. - Vital signs in the ED: Temperature 37.9, pulse 115, respiratory rate 18, blood pressure 126/57, with a map of 80, pulse ox 100% on room air.White blood cell count 21.8 with 90.5% neutrophils, # Acute left upper extremity DVT at site of PICC line. Not present on admission - PICC line removed on 12/20 - Per discussion with hematology (Dr. Travis on 12/[address] Bynum on 12/23) - treat patient with Lovenox given extent of DVT despite possible risk of bleeding FROM HER HHT. --Risks and benefits were discussed with patient on afternoon of 12/20 # Normocytic normochromic Anemia requiring transfusions, present on admission - secondary Gastric and duodenal hereditary hemorrhagic telangiectasia - energy good - Followup daily H/H -- transfuse when HG is 6-7 or energy worse -Hemoglobin 6.9 today, will transfuse 2 PRBCs today 12/30 # Hereditary hemorrhagic telangiectasia requiring multiple transfusions -Follow-up with outpatient, appointment postponed to 2 weeks due to current hospitalization # History of Ulcerated gastroesophageal junction, with history of upper GI bleed s/p ometal patcH hx. - Appreciate GI consult. She was scheduled to be seen in the Cancer Center, but it will be delayed, given her current hospitalization. # Dehydration, present on admission, Resolved # Cachexia, chronic, present on admission, active improving oral intake # Chronic constipation, present on admission, ongoing - Continue with stool softeners and enema # Hypochloremic hyponatremia, present on admission, resolved # Hypothyroidism, chronic - Status post partial thyroidectomy - Continue patient's home medication Dispo: pending hospital course and surgical evaluation/IV ABX COURSE. ACCEPTED BY [facility] living W/ HOME HEALTH VTE Prophylaxis: Sub-Q Heparin (Unfractionated) VTE Mechanical Devices: Venous Foot Pump Resuscitation Status: CPR: Attempt Resuscitation Ronald Shields MD Dec 30, 2016 14:00
--- NOTE | 2016-12-30 15:01 | NUR ---
drain flush 25ml of dark green/brown liquid removed from drain. 30cc of saline injected to drain port. pt tolerated procedure
--- NOTE | 2016-12-30 16:35 | PROG NOTE ---
[address] [address] PROGRESS NOTE PATIENT: STEWART UREÑA : 1935 MR#: [id number] ADMIT: 12/17/2016 JOB ID: [id number] DATE: 12/30/2016 REASON FOR FOLLOWUP: Complex polymicrobial bacteremic liver abscess. INTERVAL HISTORY: Over the weekend, the patient has continued to have very minimal right upper quadrant pain. She has no fevers, chills, or sweats. No significant cough at this point and minimal abdominal pain. She is able to eat and drink. She reports she continues to lose blood which is a chronic problem for her, transfusions are in the offing. PHYSICAL EXAMINATION: Reveals an afebrile woman. Temp 37.1, pulse 82, respiratory rate 18, blood pressure 125/68. She is in no acute distress but looks chronically ill. Examination of oral cavity unremarkable. Eyes with pale conjunctivae. Otherwise negative. The lungs have reasonable air flow bilaterally. The abdomen with minimal right upper quadrant tenderness, much improved over what she was when she first came in. She still has a right upper quadrant drain and it was just flushed. There is no fluid within the drain. LABORATORIES: Include a white count of 4300, creatinine 0.3. LFTs negative except alk phos 340 and that has been steadily declining from an original peak of 850. Procalcitonin has been declining from a peak of 3.7 and it is now down to 0.12 suggesting a good response to antibiotics. The original blood and liver abscess cultures grew both E. coli and Klebsiella. Follow-up CT done today shows mild decrease in the previously identified liver abscess with a drain still in place. It looks like there are some satellite abscesses as well and the drain is still present. I personally reviewed the CT images myself and there is certainly an impressive liver abscess remaining. IMPRESSION: Despite the impressive drop in resolution of fever, leukocytosis and elevated procalcitonin, the patient remains quite ill given the size of the remaining abscess as well as underlying bleeding diathesis and need for transfusion. At this point, I think the most appropriate course with antibiotics is simply to continue on ertapenem for as long as she may be in the hospital, even if that may be quite an extended stay. When she is ready to go, she could go out on Cipro and Flagyl with plans for a long course of antibiotics and serial imaging, but at this point, I think the obvious answer is to continue ertapenem. RECOMMENDATIONS: 1. Will continue with ertapenem as before. 2. Will continue to follow this patient closely with you. 3. When she goes out, she will go home on Cipro and Flagyl for an extended course.
--- NOTE | 2016-12-30 16:51 | NUR ---
cold/shakes pt woke from a nap with shakes and a feeling of being cold all over. pt asked for Tylenol and a warm blanket. paged
[2016-12-31] MEDS: HYDROmorphone 0.5 mg/0.5 mL iSecure Syringe IVPUSH PRN ×5 (00:52→21:09)
[2016-12-31 05:02] VITALS: BP 105/48; PULSE 79; RESP 18; O2SAT 96
--- NOTE | 2016-12-31 06:22 | NUR ---
Pain,Abdomen/Drainage/Low urine output Pt c/o abdominal pain 2-5/10 at right upper quadrant, abdomen soft,tenderness most at this area, mild distension, tympanic. denies N/V. Dilaudid 0.5mg administeredx3 per pt requests, pain "much better" and pt sleeping comfortably most of night. Pt kept NPO after MN for procedure fluoroscopy today. Pigtail drain at right upper quadrant,NS 30ml flushed at the beginning of the shift, yellow thick drainage output 20 ml/12hr. Low urine output 250ml/12hr. No IVF. Oral fluid encouraged,pt poor appetite. Dr. Garcia paged at [phone], waiting for response.
[2016-12-31] MEDS: Pantoprazole 20 mg ER24 Tablet PO SCH ×2 (07:30→16:39)
[2016-12-31 08:14] LABS: Mean Corpuscular Volume 93.5 fL (81-100)
[2016-12-31 08:15] LABS: BASOPHILS % (AUTO) 1.6 % (0-3); EOSINOPHILS % (AUTO) 1.1 % (0-5); MONOCYTES % (AUTO) 14.3 % (4-12); NEUTROPHILS % (AUTO) 70.2 % (40-74); Platelet Count 388 bil/L (150-400)
[2016-12-31] MEDS: 0.9% Sodium Chloride 1,000 ML IV SCH ×2 (08:18→17:44)
[2016-12-31] MEDS: Polyethylene Glycol (PEG) 17 Gm Powder PO SCH (08:26)
[2016-12-31 08:36] LABS: INR 1.05 ratio
[2016-12-31] MEDS ORDERED: fentaNYL-PF 50 mCg/mL 2 mL Inj ONE (11:02)
[2016-12-31] MEDS ORDERED: Heparin 5,000 Units/500 mL NS Premix IV ONE (11:15)
[2016-12-31 11:40] VITALS: BP 115/83; PULSE 93; RESP 18; O2SAT 95
[2016-12-31 11:45] VITALS: BP 109/39; PULSE 91; RESP 18; O2SAT 95
[2016-12-31 11:50] VITALS: BP 103/39; PULSE 93; RESP 18; O2SAT 95
--- NOTE | 2016-12-31 11:54 | NUR ---
Patient arrived in [facility] following a drain placement up size in [facility] - to a 10F. No drainage from site/bag and drain secured with stay fix. Patient has no increase in "generalized pain". Noted no orders for recovery - call to Dr Cardozo for orders, Dr Cardozo states, "Patient can go back to her room". Minimal sedation in metallurgical laboratory assistant 0.5mg of versed and Fentanyl 25 Mcg. Nurse from [id number] notified of patient's planned return to floor. TECHNICAL DIRECTOR came to bring patient up to her room.
[2016-12-31] MEDS: Ertapenem Inj 1,000 MG in 0.9% Sodium Chloride 50 ML IV SCH (12:13)
--- NOTE | 2016-12-31 13:22 | DRSVH ---
PROCEDURE: 1. Sinogram through existing catheter. 2. Drain exchange and reposition. 3. Conscious sedation x21 minutes. INDICATIONS: Hepatic abscess. COMPARISON: [facility], CT, CT ABD W CON, 12/30/2016, 8:54. TECHNIQUE: Informed, written consent from the patient was obtained prior to the procedure. Patient wa s brought to the angiography suite, and conscious sedation was administered intravenously by intermediate staff, while continuous cardiorespiratory monitoring was performed. Maximal sterile barrier t echnique, hand hygiene, skin preparation, and sterile ultrasound technique (if ultrasound was utilize d) was followed. A mask, sterile gown, sterile gloves, a large sterile sheet, hand hygiene, and 2% ch lorhexidine or iodine was utilized for skin antisepsis. The right flank drain and surrounding skin we re prepped and draped sterilely, and the skin and subcutaneous tissues surrounding the drain were inf used with lidocaine. The drainage catheter was injected with contrast, then was removed over a Glidew lucie and exchanged for a Kumpe catheter. The Kumpe catheter was used to advance the wire into the supe rior aspect of the abscess cavity, over which a 12 Palestinian pigtail drainage catheter was advanced. The catheter was then fastened to the skin surface. FLUOROSCOPY TIME: 3.8 minutes FINDINGS: Following drainage catheter repositioning, they pigtail of the drainage catheter is within the superior aspect of the abscess cavity. The superior aspect of the abscess cavity contains viscou s contents. IMPRESSION: Drainage catheter upsizing and repositioning as described above. Pigtail catheter is now within the superior aspect of the abscess cavity, which appears to contain viscous contents. Dictated by: Junito Cardozo M.D. on 12/31/2016 at 13:15 Approved by: Junito Cardozo M.D. on 12/31/2016 at 13:20
--- NOTE | 2016-12-31 15:58 | PCM.PNMED ---
Subjective Date of Service Dec 31, 2016 Subjective No new complaints. Temp 37.8 overnight.. Underwent successful repositioning and upsizing of liver abscess drain. Exam Vital Signs Vital Sign - Last Date Time Temp Pulse Resp B/P Pulse Ox O2 Delivery O2 Flow Rate FiO2 12/31/16 11:50 93 18 103/39 95 Room Air 12/31/16 05:02 36.7 Intake and Output 12/30/16 12/30/16 12/31/16 Cumulative From/Thru 15:00 23:00 07:00 12/16/16 22:37 - 12/31/16 06:52 Intake Total 670 ml 318 ml 100 ml 01486 ml Output Total 1450 ml 250 ml 14954 ml Balance 670 ml -1132 ml -150 ml -5592 ml Intake Oral 318 ml 100 ml 9764 ml IV Total 70 ml 9364 ml Packed Cells 600 ml 600 ml Output Urine Total 1450 ml 250 ml 13317 ml Urine/Stool Mix 3 ml Drainage Total 0 ml 622 ml # Voids 1 10 # Bowel Movements 1 8 Exam Gen. Cachectic patient lying comfortably in hospital bed HEENT: Head is normocephalic atraumatic, Pupils equal and reactive, extraocular movements intact, Lungs clear to auscultation bilaterally Heart regular rate and rhythm without murmurs gallops or rubs Abdomen soft nontender without hepatosplenomegaly,liver drain in place with green purulent fluid > 30cc in bag currently Extremities pulses are present dorsalis pedis posterior tibialis and radial. Skin is warm and dry there are no rashes, Psych alert and oriented to person place and time Neuro cranial nerves II through XII are grossly intact Lymph: There is no lymphadenopathy appreciated in the cervical supra infraclavicular regions : no burton IVs and Medications Medications Reviewed: Medications were reviewed in detail Lab and Diagnostics Result Diagram: 12/31/16 0807 12/31/16 0807 X-Rays, CTs and MRIs CT Abd / Pelvis Interpretation CONCLUSION: Heterogeneous appearing liver with a focal hypodense area noted in the liver measuring up to 14cm in size. Possible considerations include infection and tumor. Pelvic mass in the region of the uterus. While fibroid is a consideration. Other tumor would be difficult to exclude. Findings suggestion of constipation. Cardiomegaly. 5mm left lower pulmonary nodule. Radiologist: Andrea Singh MD PROCEDURE: 1. Sinogram through existing catheter. 2. Drain exchange and reposition. 3. Conscious sedation x21 minutes. IMPRESSION: Drainage catheter upsizing and repositioning as described above. Pigtail catheter is now within the superior aspect of the abscess cavity, which appears to contain viscous contents. Dictated by: Junito Cardozo M.D. 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 Bynum oncology), found to be liver abscess s/p IR drain/ertapenem for kleb/ ecoli bacteremia/abscess. Presented to the ED complaining of upper abdominal pain in achy bandlike. no associated UTIs. # Escherichia coli and klebsiella Acute liver abscess WITH BACTEREMIA , present on admission. Ongoing -Liver drain output remains minimal but on repeat imaging 12/30 shows persistence of liver abscess with slight interval decrease in size, Underwent successful repositioning and upsizing of liver abscess drain 12/31. Continue flushing the drain every shift - CT-guided drain placement for a hepatic abscess on 12/17/[address] Joel - Ertapenem 1000 mg daily intravenously (started on 12/20/[address] Webber/KELLY recs - at least while inpatient). LIKELY CIPROFLOXACIN AND FLAGYL FDC ON DISCHARGE. --no echo since not gram positive, unlikely endocarditis risk # Acute sepsis, present on admission, clinically/leucocytosis resolved. - Vital signs in the ED: Temperature 37.9, pulse 115, respiratory rate 18, blood pressure 126/57, with a map of 80, pulse ox 100% on room air.White blood cell count 21.8 with 90.5% neutrophils, # Acute left upper extremity DVT at site of PICC line. Not present on admission - PICC line removed on 12/20 - Per discussion with hematology (Dr. Travis on 12/[address] Bynum on 12/23) - treat patient with Lovenox given extent of DVT despite possible risk of bleeding FROM HER HHT. --Risks and benefits were discussed with patient on afternoon of 12/20 # Normocytic normochromic Anemia requiring transfusions, present on admission - secondary Gastric and duodenal hereditary hemorrhagic telangiectasia - Followup daily H/H -- transfuse when HG is 6-7 or energy worse -Hemoglobin 6.9 on 12/30, transfused 2 PRBCs 12/30. Hemoglobin 9.2 today. 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 - Stable She was [facility], but it will be delayed, given her current hospitalization. # Dehydration, present on admission, Resolved # Cachexia, chronic, present on admission, active improving oral intake # Chronic constipation, present on admission, ongoing - Continue with stool softeners and enema # Hypochloremic hyponatremia, present on admission, resolved # Hypothyroidism, chronic - Status post partial thyroidectomy - Continue patient's home medication Dispo: pending hospital course. ACCEPTED BY [facility] W/ HOME HEALTH VTE Prophylaxis: Sub-Q Heparin (Unfractionated) VTE Mechanical Devices: Intermittant Pneumatic CD Resuscitation Status: CPR: Attempt Resuscitation Ronald Shields MD Dec 31, 2016 15:58
[2016-12-31 16:10] VITALS: BP 97/46; PULSE 95; RESP 16; O2SAT 92
--- NOTE | 2016-12-31 16:51 | NUR ---
Drain Pt had R flank drain up sized to 10F, in IR today. Small amount serosang/yellow drainage present in back. Dsg around insertion site c/d/i. Mid abd pain unchanged from prior to IR drain exchange, receiving 0.5mg IV dilaudid and PO APAP prn, pt states it helps. SBA to BSC. VSS.
--- NOTE | 2016-12-31 19:34 | PROG NOTE ---
[address] [address] PROGRESS NOTE PATIENT: STEWART UREÑA : 1935 MR#: [id number] ADMIT: 12/17/2016 JOB ID: [id number] DATE: 12/31/2016 REASON FOR FOLLOWUP: Large polymicrobial bacteremic liver abscess. INTERVAL HISTORY: The patient's drain was repositioned and there is now more output from the right upper quadrant drain. She continues to feel weak but otherwise relatively well. She had 2 units of blood yesterday and the drain was unchanged as noted. Otherwise, she has had no fevers, chills, sweats, cough, or abdominal pain. PHYSICAL EXAMINATION: Reveals an afebrile woman, temp 37.1, pulse 95, respiratory rate 16, blood pressure 97/46. She is saturating 92% on room air and in no acute distress. Examination of the oral cavity is unremarkable today. Lungs: Fairly clear. Cardiac tones: Regular rate and rhythm, a bit distant. The abdomen is benign. Right upper quadrant drain is present with a bit more drainage than there has been previously. LABORATORIES: Include white count stable at 7000. Creatinine less than 0.3. Albumin is 2.5. Procalcitonin 0.12. Urinalysis without white cells. Blood and abscess cultures growing a combination of E. coli and Klebsiella. IMAGING: Was reviewed. Again reviewed the CT of the abdomen as well as the report of the abscess drainage which was performed earlier today. IMPRESSION: Polymicrobial bacteremic liver abscess, slowly improving on aggressive antibiotic therapy. This is not an unusual unfolding of events for someone with one of these severe Klebsiella liver abscesses and especially when it is bacteremic. I suspect we will be at this for a long time. RECOMMENDATIONS: 1. Will continue with the ongoing improved drainage. 2. Continue with ertapenem once a day until she is ready to go home at which case she could be discharged on Cipro and Flagyl b.i.d. for what will probably be a period of weeks. 3. Note that I will be out of the country between January 02 and January 07, returning to work on January 08. I can be reached at any time by text message or e-mail regarding this patient, but probably not by telephone. I do not necessarily plan to see this patient tomorrow unless there are issues and will see her upon my return if she is still here. Otherwise, please schedule a followup in my clinic for January 15 for this patient if she does go home on the Cipro/Flagyl combination.
[2016-12-31 20:35] VITALS: BP 95/54; PULSE 80; RESP 18; O2SAT 95
[2017-01-01] MEDS: HYDROmorphone 0.5 mg/0.5 mL iSecure Syringe IVPUSH PRN ×4 (04:06→23:25)
[2017-01-01 04:37] VITALS: BP 122/56; PULSE 82; RESP 16; O2SAT 93
[2017-01-01] MEDS: 0.9% Sodium Chloride 1,000 ML IV SCH ×2 (04:48→14:15)
--- NOTE | 2017-01-01 06:29 | NUR ---
Drain Flushed Pts Drain amount had not changed over shift. Drain was flushed with 20ml on sterile NS, Pt reported no pain with flushing. Minimal amount of NS drained back into collection bag. Drain tubing is visibly still filled with slightly blood tinged NS.
[2017-01-01 08:30] LABS: BASOPHILS % (AUTO) 0.5 % (0-3); EOSINOPHILS % (AUTO) 0.8 % (0-5); MONOCYTES % (AUTO) 14.7 % (4-12); Mean Corpuscular Volume 95.3 fL (81-100); NEUTROPHILS % (AUTO) 73.3 % (40-74); Platelet Count 303 bil/L (150-400)
[2017-01-01] MEDS: NORETHINDRONE PO SCH (08:30)
[2017-01-01] MEDS: ETHINYL ESTRADIOL PO SCH (08:30)
[2017-01-01 08:47] LABS: Magnesium 1.8 mg/dL (1.6-2.6)
[2017-01-01] MEDS: Pantoprazole 20 mg ER24 Tablet PO SCH ×2 (09:24→16:51)
[2017-01-01] MEDS: Polyethylene Glycol (PEG) 17 Gm Powder PO SCH (09:25)
[2017-01-01 10:29] VITALS: BP 126/57; PULSE 88; RESP 16; O2SAT 96
[2017-01-01 11:50] VITALS: BP 124/52; PULSE 93; RESP 18; O2SAT 93
--- NOTE | 2017-01-01 11:59 | NUR ---
Wkns/febrile Pt reported not feeling well, feeling "weaker" than usual. Afebrile at 38.4, remained of VS WNL. Spoke with MD who ordered blood cx. NS remains running at 100ml/hr. PO antipyretic given. Addendum: 01/01/17 at 1810 by ALVAREZ JENKINS RN During above discussion, mentioned to MD that abscess collection bag not flushing. Per MD, as long as bag continues to drain, he is not concerned.
[2017-01-01] MEDS: Ertapenem Inj 1,000 MG in 0.9% Sodium Chloride 50 ML IV SCH (12:44)
--- NOTE | 2017-01-01 13:21 | NUR ---
NUTRITION FOLLOW UP: Assess: 81 YO F with liver abscess s/p CT drain placement. Drain was repositioned and up-sized 12/30 to allow abscess to drain more. IV antibiotics continue at this time. DVT currently being treated with Lovenox. PO intake is 50-100% of meals. PMHx: Ulcerated gastroesophageal junction, Irregular gastroesophageal junction, Gastric and duodenal hereditary hemorrhagic telangiectasia, Hypothyroid, malnutrition, uterine fibroid. LABS: Reviewed. AST 62, Alk Phos 337, Alb 2.4. MEDICATIONS: Reviewed. DIET: General. Ensure all trays. PO intake 50-100% of meals. GI: BM x 1 (12/30) SKIN: No issues noted ANTHROPOMETRICS: Current wt: 41.8 kg. Admit Wt: (12/17) 41.5 kg (standing scale) Past Admit Wt: 38.5 kg (Bed scale) IBW: 52.3 kg. UBW (November): 54 kg. Severe wt loss noted in past, but wt appears stable with slight increase over the past 3 months. ESTIMATED NEEDS: Malnutrition Calories: 9280-4980 kcal/day (30-35 kcal/kg IBW) Protein: 65-80 g/day (1.2-1.5 g/kg IBW) NUTRITION DIAGNOSIS: 1) Severe malnutrition related to chronic illness as evidenced by variable wt, visible loss of LBM/ fat--PERSISTS 2) Inadequate oral intake related to altered GI function as evidence by early satiety, BMI of 16.2--IMPROVING. INTERVENTION: 1) Continue to send ensure on all trays. 2) Pt has received high calorie/high protein education on 09/11/16 and 11/05/16. MONITOR/EVALUATE: PO intake, labs, weights, nutrition status. Follow per moderate nutrition risk guidelines.
--- NOTE | 2017-01-01 15:04 | PCM.PNMED ---
Subjective Date of Service Jan 01, 2017 Subjective liver Drain upsized and repositioned draining now. She continues to have on and off fever. Temp 38 .4 today. Blood culture sent. Patient says she feels more fatigued today. Hemoglobin stable. Exam Vital Signs Vital Sign - Last Date Time Temp Pulse Resp B/P Pulse Ox O2 Delivery O2 Flow Rate FiO2 01/01/17 11:50 38.4 93 18 124/52 93 Room Air Intake and Output 12/31/16 12/31/16 01/01/17 Cumulative From/Thru 15:00 23:00 07:00 12/16/16 22:37 - 01/01/17 06:21 Intake Total 1195 ml 1304 ml 73913 ml Output Total 375 ml 285 ml 61246 ml Balance 820 ml 1019 ml -3753 ml Intake Oral 400 ml 200 ml 50217 ml IV Total 795 ml 1104 ml 95372 ml Packed Cells 600 ml Output Urine Total 375 ml 225 ml 01534 ml Urine/Stool Mix 3 ml Drainage Total 60 ml 682 ml # Voids 10 # Bowel Movements 0 8 Exam Gen. Cachectic patient lying comfortably in hospital bed HEENT: Head is normocephalic atraumatic, Pupils equal and reactive, extraocular movements intact, Lungs clear to auscultation bilaterally Heart regular rate and rhythm without murmurs gallops or rubs Abdomen soft nontender without hepatosplenomegaly,liver drain in place with green purulent fluid > 40cc in bag currently Extremities pulses are present dorsalis pedis posterior tibialis and radial. Skin is warm and dry there are no rashes, Psych alert and oriented to person place and time Neuro cranial nerves II through XII are grossly intact Lymph: There is no lymphadenopathy appreciated in the cervical supra infraclavicular regions : no burton IVs and Medications Medications Reviewed: Medications were reviewed in detail Lab and Diagnostics Result Diagram: 01/01/1780401/01/17804 X-Rays, CTs and MRIs CT Abd / Pelvis Interpretation CONCLUSION: Heterogeneous appearing liver with a focal hypodense area noted in the liver measuring up to 14cm in size. Possible considerations include infection and tumor. Pelvic mass in the region of the uterus. While fibroid is a consideration. Other tumor would be difficult to exclude. Findings suggestion of constipation. Cardiomegaly. 5mm left lower pulmonary nodule. Radiologist: Andrea Singh MD PROCEDURE: 1. Sinogram through existing catheter. 2. Drain exchange and reposition. 3. Conscious sedation x21 minutes. IMPRESSION: Drainage catheter upsizing and repositioning as described above. Pigtail catheter is now within the superior aspect of the abscess cavity, which appears to contain viscous contents. Dictated by: Junito Cardozo M.D. 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 Bynum oncology), found to be liver abscess s/p IR drain/ertapenem for kleb/ ecoli bacteremia/abscess. Presented to the ED complaining of upper abdominal pain in achy bandlike. no associated UTIs. # Escherichia coli and klebsiella Acute liver abscess WITH BACTEREMIA , present on admission. Ongoing -Liver drain output was minimal but on repeat imaging 12/30 shows persistence of liver abscess , Underwent successful repositioning and upsizing of liver abscess drain 12/31. Now draining. Continue flushing the drain every shift - CT-guided drain placement for a hepatic abscess on 12/17/[address] Joel .repositioning and upsizing of liver abscess drain 12/[address] Cardozo - Ertapenem 1000 mg daily intravenously (started on 12/20/[address] Webber/KELLY recs - at least while inpatient). LIKELY CIPROFLOXACIN AND FLAGYL SENIOR CARE ON DISCHARGE. -Will plan to repeat CT in 2-3 days or when output is < 20ml/day -Patient continues to have on and off fever. Blood culture sent today 01/01 --no echo since not gram positive, unlikely endocarditis risk # Acute sepsis, present on admission, clinically/leucocytosis resolved. - Vital signs in the ED: Temperature 37.9, pulse 115, respiratory rate 18, blood pressure 126/57, with a map of 80, pulse ox 100% on room air.White blood cell count 21.8 with 90.5% neutrophils, # Acute left upper extremity DVT at site of PICC line. Not present on admission - PICC line removed on 12/20 - Per discussion with hematology (Dr. Travis on 12/[address] Bynum on 12/23) - treat patient with Lovenox given extent of DVT despite possible risk of bleeding FROM HER HHT. --Risks and benefits were discussed with patient on afternoon of 12/20 # Normocytic normochromic Anemia requiring transfusions, present on admission - secondary Gastric and duodenal hereditary hemorrhagic telangiectasia - Followup daily H/H -- transfuse when HG is 6-7 or energy worse -Hemoglobin 6.9 on 12/30, transfused 2 PRBCs 12/30. Hemoglobin 9.0 today. 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 - Stable # Cachexia, chronic, present on admission, active improving oral intake # Chronic constipation, present on admission, ongoing - Continue with stool softeners and enema # Hypothyroidism, chronic - Status post partial thyroidectomy - Continue patient's home medication Dispo: pending hospital course. [facility] to [facility] assisted living W/ HOME HEALTH VTE Prophylaxis: Sub-Q Heparin (Unfractionated) VTE Mechanical Devices: Intermittant Pneumatic CD Resuscitation Status: CPR: Attempt Resuscitation Ronald Shields MD Jan 01, 2017 15:04
[2017-01-01 16:40] VITALS: BP 122/66; PULSE 98; RESP 18; O2SAT 95
--- NOTE | 2017-01-01 17:26 | NUR ---
Social Work: Continued d/c planning Data: Pt is on day 15 of hospitalization for hepatic abscess mass. EMR reviewed. Pt was discussed in morning rounds and will likely be here 3 more days while she finishes IV antibiotics and absess drains. Pt is from [facility] and they assessed her on 12/27, will accept her back at discharge. No further needs assessed at this time. SW will continue to follow. Assessment: Pt from [facility]. Plan: Pt to discharge back to [facility] when medically ready. SW will continue to follow for needs. SOHAN Russell
--- NOTE | 2017-01-01 18:27 | NUR ---
Drain Flushed drain with 20cc of sterile saline into abscess area. Also flushed 10 cc of sterile saline into Cook drain side to flush tubing. 10cc of true serosanguineous output recorded this shift. Pt tolerated flushing well, stated, "I couldn't feel a thing." Bed in lowest, locked position and call light in reach.
[2017-01-01 21:38] VITALS: BP 116/57; PULSE 92; RESP 16; O2SAT 94
[2017-01-02] MEDS: 0.9% Sodium Chloride 1,000 ML IV SCH ×2 (00:20→09:30)
[2017-01-02] MEDS: HYDROmorphone 0.5 mg/0.5 mL iSecure Syringe IVPUSH PRN ×3 (04:58→20:08)
[2017-01-02 05:39] VITALS: BP 111/63; PULSE 84; RESP 16; O2SAT 95
--- NOTE | 2017-01-02 06:19 | NUR ---
Drain output. Total of 32ml of true drainage over shift.
[2017-01-02] MEDS: Pantoprazole 20 mg ER24 Tablet PO SCH ×2 (09:25→17:34)
[2017-01-02] MEDS: Polyethylene Glycol (PEG) 17 Gm Powder PO SCH (09:26)
--- NOTE | 2017-01-02 12:24 | PROG NOTE ---
[address] [address] PROGRESS NOTE PATIENT: STEWART UREÑA : 1935 MR#: [id number] ADMIT: 12/17/2016 JOB ID: [id number] DATE: 01/02/2017 INFECTIOUS DISEASE FOLLOWUP NOTE: REASON FOR FOLLOWUP: Polymicrobial bacteremia secondary to polymicrobial liver abscess. INTERVAL HISTORY: I last saw the patient two days ago. At that time, she was doing well but in the intervening 48 hours she has had some temperature spikes as high as 38.4, which she noted as feverish periods. There were no associated chills or sweats. She has had no cough or shortness of breath. No sore throat. No problem with her peripheral IV. She did note, however, that yesterday there were troubles with her new liver abscess drain in that it "clogged up" for a period of time and had to be flushed and manipulated. Today, the drain is painless, and there is good flow from it. PHYSICAL EXAMINATION: Vital signs: Temp 36.8, though she was 38.3 last night. Pulse 84, respiratory rate 16, blood pressure 111/63. She is in no acute distress. She still, of course, appears weak and frail. Oral cavity without thrush or pharyngitis. Eyes without conjunctivitis. Lungs quite clear anteriorly. Cardiac tone: Irregular rate and rhythm without significant murmur. Abdomen has the right upper quadrant drain in place, and it is draining some thin brownish liquid. The abdomen itself is nontender, slightly distended. No skin rash noted. The peripheral IV appears benign. LABORATORIES: Include white count 7500, hematocrit 29, platelet count 300,000. Creatinine 0. Liver function tests notable for a bump in AST. It has risen to 62. Alk phos continues a slow downward trend, now 337. the procalcitonin on the 24 was down to 0.12. Followup cultures include negative blood cultures from yesterday. We had the previously positive blood and liver abscess cultures for E. coli and klebsiella. IMAGING: No new imaging is available. IMPRESSION: The patient continues to do fairly well on her ertapenem coverage, and I think her overall course is one of steady improvement. I suspect her fevers were due to manipulation of the drain and perhaps a period of time when it was not properly positioned or flowing well. At this point she looks better each day, and her lab work is reassuring. RECOMMENDATIONS: 1. Continue ertapenem until she goes home. 2. Upon discharge, she can be discharged on Cipro and Flagyl b.i.d. Note that I will be out of the country starting and back to work on January 08. I can be reached by text or email regarding this or any other patient. 3. Please have this patient see me January 15 for followup. I anticipate a long course of Cipro and Flagyl will be needed.
[2017-01-02] MEDS: Ertapenem Inj 1,000 MG in 0.9% Sodium Chloride 50 ML IV SCH (12:45)
[2017-01-02 13:51] VITALS: BP 115/54; PULSE 83; RESP 16; O2SAT 96
--- NOTE | 2017-01-02 16:54 | PCM.PNMED ---
Subjective Date of Service Jan 02, 2017 Subjective Continues to spike fever. Repeat blood culture negative. liver drain draining well. 53 mL overnight. Exam Vital Signs Vital Sign - Last Date Time Temp Pulse Resp B/P Pulse Ox O2 Delivery O2 Flow Rate FiO2 01/02/17 13:51 37.3 83 16 115/54 96 Room Air Intake and Output 01/01/17 01/01/17 01/02/17 Cumulative From/Thru 15:00 23:00 07:00 12/16/16 22:37 - 01/02/17 06:18 Intake Total 1333 ml 1307 ml 62222 ml Output Total 10 ml 402 ml 04572 ml Balance 1323 ml 905 ml -1525 ml Intake Oral 200 ml 94194 ml IV Total 1333 ml 1087 ml 94161 ml Packed Cells 600 ml Tube Irrigant 20 ml 20 ml Output Urine Total 350 ml 43862 ml Urine/Stool Mix 3 ml Drainage Total 10 ml 52 ml 744 ml # Voids 10 # Bowel Movements 8 Exam Gen. Cachectic patient lying comfortably in hospital bed HEENT: Head is normocephalic atraumatic, Pupils equal and reactive, extraocular movements intact, Lungs clear to auscultation bilaterally Heart regular rate and rhythm without murmurs gallops or rubs Abdomen soft nontender without hepatosplenomegaly,liver drain in place with green purulent fluid > 50cc in bag currently Extremities pulses are present dorsalis pedis posterior tibialis and radial. Skin is warm and dry there are no rashes, Psych alert and oriented to person place and time Neuro cranial nerves II through XII are grossly intact Lymph: There is no lymphadenopathy appreciated in the cervical supra infraclavicular regions : no burton IVs and Medications Medications Reviewed: Medications were reviewed in detail Lab and Diagnostics Result Diagram: 01/01/1780401/01/17 08 X-Rays, CTs and MRIs CT Abd / Pelvis Interpretation CONCLUSION: Heterogeneous appearing liver with a focal hypodense area noted in the liver measuring up to 14cm in size. Possible considerations include infection and tumor. Pelvic mass in the region of the uterus. While fibroid is a consideration. Other tumor would be difficult to exclude. Findings suggestion of constipation. Cardiomegaly. 5mm left lower pulmonary nodule. Radiologist: Andrea Singh MD PROCEDURE: 1. Sinogram through existing catheter. 2. Drain exchange and reposition. 3. Conscious sedation x21 minutes. IMPRESSION: Drainage catheter upsizing and repositioning as described above. Pigtail catheter is now within the superior aspect of the abscess cavity, which appears to contain viscous contents. Dictated by: Junito Cardozo M.D. 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 Bynum oncology), found to be liver abscess s/p IR drain/ertapenem for kleb/ ecoli bacteremia/abscess. Presented to the ED complaining of upper abdominal pain in achy bandlike. no associated UTIs. # Escherichia coli and klebsiella Acute liver abscess WITH BACTEREMIA , present on admission. Ongoing -Liver drain output was minimal but on repeat imaging 12/30 shows persistence of liver abscess , Underwent successful repositioning and upsizing of liver abscess drain 12/31. Now draining. Continue flushing the drain every shift - CT-guided drain placement for a hepatic abscess on 12/17/[address] Joel .repositioning and upsizing of liver abscess drain 12/[address] Cardozo - Ertapenem 1000 mg daily intravenously (started on 12/20/[address] Webber/ID recs - at least while inpatient). LIKELY CIPROFLOXACIN AND FLAGYL USP ON DISCHARGE. -Will plan to repeat CT in 2-3 days or when output is < 20ml/day -Patient continues to have on and off fever. Blood culture sent 01/01 no growth --no echo since not gram positive, unlikely endocarditis risk # Acute sepsis, present on admission, clinically/leucocytosis resolved. - Vital signs in the ED: Temperature 37.9, pulse 115, respiratory rate 18, blood pressure 126/57, with a map of 80, pulse ox 100% on room air.White blood cell count 21.8 with 90.5% neutrophils, # Acute left upper extremity DVT at site of PICC line. Not present on admission - PICC line removed on 12/20 - Per discussion with hematology (Dr. Travis on 12/[address] Bynum on 12/23) - treat patient with Lovenox given extent of DVT despite possible risk of bleeding FROM HER HHT. --Risks and benefits were discussed with patient on afternoon of 12/20 # Normocytic normochromic Anemia requiring transfusions, present on admission - secondary Gastric and duodenal hereditary hemorrhagic telangiectasia - Followup daily H/H -- transfuse when HG is 6-7 or energy worse -Hemoglobin 6.9 on 12/30, transfused 2 PRBCs 12/30. Hemoglobin 9.0 today. 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 - Stable # Cachexia, chronic, present on admission, active improving oral intake # Chronic constipation, present on admission, ongoing - Continue with stool softeners and enema # Hypothyroidism, chronic - Status post partial thyroidectomy - Continue patient's home medication Dispo: pending hospital course. Eventually to [facility] assisted living W/ [facility]TE Prophylaxis: Sub-Q Heparin (Unfractionated) VTE Mechanical Devices: Intermittant Pneumatic CD Resuscitation Status: CPR: Attempt Resuscitation Ronald Shields MD Jan 02, 2017 16:54
--- NOTE | 2017-01-02 18:16 | NUR ---
Drain Cook drain dressing CDI, primary RN flushed with 20mL sterile NS. Pt tolerated well; denies discomfort. Drain patent. Total output 30mL, true output 10mL sero-sanguinous fluid. Will continue to monitor.
[2017-01-03] MEDS: HYDROmorphone 0.5 mg/0.5 mL iSecure Syringe IVPUSH PRN ×4 (00:54→22:28)
[2017-01-03 05:30] VITALS: BP 107/63; PULSE 76; RESP 16; O2SAT 95
--- NOTE | 2017-01-03 05:42 | NUR ---
Drainage Pt had 30ml of output this morning. Drainage is much more thick and brown tinged this morning compared to the last 2 mornings (more sanguinous) After draining the 30ml this RN flushed 20ml of sterile NS.
[2017-01-03 08:00] VITALS: BP 92/52; PULSE 82; RESP 18; O2SAT 97
[2017-01-03 08:11] LABS: BASOPHILS % (AUTO) 1.4 % (0-3); EOSINOPHILS % (AUTO) 2.3 % (0-5); MONOCYTES % (AUTO) 16.2 % (4-12); Mean Corpuscular Hemoglobin 29.6 pg (27.0-35.0); NEUTROPHILS % (AUTO) 62.7 % (40-74); Platelet Count 255 bil/L (150-400)
[2017-01-03 08:40] LABS: Magnesium 1.8 mg/dL (1.6-2.6); Phosphorus 2.9 mg/dL (2.5-4.9)
[2017-01-03] MEDS: Pantoprazole 20 mg ER24 Tablet PO SCH ×2 (09:26→18:09)
[2017-01-03] MEDS: Polyethylene Glycol (PEG) 17 Gm Powder PO SCH (09:26)
--- NOTE | 2017-01-03 11:24 | PCM.PNMED ---
Subjective Date of Service Jan 03, 2017 Subjective patient afebrile now,liver drain continues to drain 50-60ml/d.patient feeling better overall .appetite improving Exam Vital Signs Vital Sign - Last Date Time Temp Pulse Resp B/P Pulse Ox O2 Delivery O2 Flow Rate FiO2 01/03/17 08:00 36.9 82 18 92/52 97 Room Air Intake and Output 01/02/17 01/02/17 01/03/17 Cumulative From/Thru 15:00 23:00 07:00 12/16/16 22:37 - 01/03/17 06:23 Intake Total 1244 ml 220 ml 91959 ml Output Total 585 ml 930 ml 63326 ml Balance 659 ml -710 ml -1576 ml Intake Oral 500 ml 200 ml 34227 ml IV Total 744 ml 89293 ml Packed Cells 600 ml Tube Irrigant 20 ml 40 ml Output Urine Total 575 ml 900 ml 26998 ml Urine/Stool Mix 3 ml Drainage Total 10 ml 30 ml 784 ml # Voids 10 # Bowel Movements 1 0 9 Exam Gen. Cachectic patient lying comfortably in hospital bed HEENT: Head is normocephalic atraumatic, Pupils equal and reactive, extraocular movements intact, Lungs clear to auscultation bilaterally Heart regular rate and rhythm without murmurs gallops or rubs Abdomen soft nontender without hepatosplenomegaly,liver drain in place with green purulent fluid > 40cc in bag currently Extremities pulses are present dorsalis pedis posterior tibialis and radial. Skin is warm and dry there are no rashes, Psych alert and oriented to person place and time Neuro cranial nerves II through XII are grossly intact Lymph: There is no lymphadenopathy appreciated in the cervical supra infraclavicular regions : no burton IVs and Medications Medications Reviewed: Medications were reviewed in detail Lab and Diagnostics Result Diagram: 01/03/17 0808 01/03/17 0808 X-Rays, CTs and MRIs CT Abd / Pelvis Interpretation CONCLUSION: Heterogeneous appearing liver with a focal hypodense area noted in the liver measuring up to 14cm in size. Possible considerations include infection and tumor. Pelvic mass in the region of the uterus. While fibroid is a consideration. Other tumor would be difficult to exclude. Findings suggestion of constipation. Cardiomegaly. 5mm left lower pulmonary nodule. Radiologist: Andrea Singh MD PROCEDURE: 1. Sinogram through existing catheter. 2. Drain exchange and reposition. 3. Conscious sedation x21 minutes. IMPRESSION: Drainage catheter upsizing and repositioning as described above. Pigtail catheter is now within the superior aspect of the abscess cavity, which appears to contain viscous contents. Dictated by: Junito Cardozo M.D. 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 Bynum oncology), found to be liver abscess s/p IR drain/ertapenem for kleb/ ecoli bacteremia/abscess. Presented to the ED complaining of upper abdominal pain in achy bandlike. no associated UTIs. # Escherichia coli and klebsiella Acute liver abscess WITH BACTEREMIA , present on admission. Ongoing -Liver drain output was minimal but on repeat imaging 12/30 shows persistence of liver abscess , Underwent successful repositioning and upsizing of liver abscess drain 12/31. Now draining. Continue flushing the drain every shift - CT-guided drain placement for a hepatic abscess on 12/17/[address] Joel .repositioning and upsizing of liver abscess drain 12/[address] Cardozo - Ertapenem 1000 mg daily intravenously (started on 12/20/[address] Webber/KELLY recs - at least while inpatient). LIKELY CIPROFLOXACIN AND FLAGYL [employer] ON DISCHARGE. Dr Webber will follow patient on 01/15/17 outpatient -Will plan to repeat CT in 2-3 days or when output is < 20ml/day -Patient continues to have on and off fever. Blood culture sent 01/01 no growth --no echo since not gram positive, unlikely endocarditis risk # Acute sepsis, present on admission, clinically/leucocytosis resolved. - Initial Vital signs in the ED: Temperature 37.9, pulse 115, respiratory rate 18, blood pressure 126/57, with a map of 80, pulse ox 100% on room air.White blood cell count 21.8 with 90.5% neutrophils, # Acute left upper extremity DVT at site of PICC line. Not present on admission - PICC line removed on 12/20 - Per discussion with hematology (Dr. Travis on 12/[address] Bynum on 12/23) - treat patient with Lovenox given extent of DVT despite possible risk of bleeding FROM HER HHT. --Risks and benefits were discussed with patient on afternoon of 12/20 # Normocytic normochromic Anemia requiring transfusions, present on admission - secondary Gastric and duodenal hereditary hemorrhagic telangiectasia - Followup daily H/H -- transfuse when HG is 6-7 or energy worse -Hemoglobin 6.9 on 12/30, transfused 2 PRBCs 12/30. Hemoglobin 7.9 today. 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 likely several more days. Eventually to [facility] assisted living W/ [facility] VTE Prophylaxis: Sub-Q Heparin (Unfractionated) VTE Mechanical Devices: Intermittant Pneumatic CD Resuscitation Status: CPR: Attempt Resuscitation Ronald Shields MD Jan 03, 2017 11:24
[2017-01-03] MEDS: Ertapenem Inj 1,000 MG in 0.9% Sodium Chloride 50 ML IV SCH (12:51)
--- NOTE | 2017-01-03 19:25 | NUR ---
Drainage Drained 40ml light brown/yellowish fluid out of bag. Had difficulty in flushing drain. In order to flush pigtail, you must remove cap. Out of 40ml output, assumed 20ml is from flush of previous shift giving 20ml of drainage. Flushed drain with 20ml. Report and follow up given to NOC shift.
[2017-01-03 20:32] VITALS: BP 119/65; PULSE 81; RESP 18; O2SAT 96
[2017-01-04] MEDS: HYDROmorphone 0.5 mg/0.5 mL iSecure Syringe IVPUSH PRN ×3 (02:51→17:49)
[2017-01-04 04:44] VITALS: BP 115/67; PULSE 86; RESP 16; O2SAT 97
--- NOTE | 2017-01-04 06:45 | NUR ---
Drainage NS 20ml flush at the beginning of the shift, 38 ml dark red drainage at the end of the shift. 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
[2017-01-04] MEDS: Pantoprazole 20 mg ER24 Tablet PO SCH ×2 (08:25→17:11)
[2017-01-04] MEDS: Polyethylene Glycol (PEG) 17 Gm Powder PO SCH (08:25)
[2017-01-04 08:41] LABS: BASOPHILS % (AUTO) 1.8 % (0-3); EOSINOPHILS % (AUTO) 1.2 % (0-5); MONOCYTES % (AUTO) 16.5 % (4-12); Mean Corpuscular Hemoglobin 29.5 pg (27.0-35.0); Mean Corpuscular Volume 94.4 fL (81-100); NEUTROPHILS % (AUTO) 52.8 % (40-74); Platelet Count 287 bil/L (150-400)
[2017-01-04 08:50] VITALS: BP 106/61; PULSE 75; RESP 14; O2SAT 98
--- NOTE | 2017-01-04 11:09 | PCM.PNMED ---
Subjective Date of Service Jan 04, 2017 Subjective liver drain output slowing down,18ml overnight. Remains afebrile. She states she felt well today. Exam Vital Signs Vital Sign - Last Date Time Temp Pulse Resp B/P Pulse Ox O2 Delivery O2 Flow Rate FiO2 01/04/17 08:50 36.8 75 14 106/61 98 Room Air Intake and Output 01/03/17 01/03/17 01/04/17 Cumulative From/Thru 15:00 23:00 07:00 12/16/16 22:37 - 01/04/17 06:44 Intake Total 493 ml 400 ml 80812 ml Output Total 545 ml 768 ml 82538 ml Balance -52 ml -368 ml -1996 ml Intake Oral 413 ml 400 ml 88239 ml IV Total 80 ml 34182 ml Packed Cells 600 ml Tube Irrigant 40 ml Output Urine Total 525 ml 750 ml 47571 ml Urine/Stool Mix 3 ml Drainage Total 20 ml 18 ml 822 ml # Voids 10 # Bowel Movements 0 0 9 Exam Gen. Cachectic patient lying comfortably in hospital bed HEENT: Head is normocephalic atraumatic, Pupils equal and reactive, extraocular movements intact, Lungs clear to auscultation bilaterally Heart regular rate and rhythm without murmurs gallops or rubs Abdomen soft nontender without hepatosplenomegaly,liver drain in place with green purulent fluid > 20cc in bag currently Extremities pulses are present dorsalis pedis posterior tibialis and radial. Skin is warm and dry there are no rashes, Psych alert and oriented to person place and time Neuro cranial nerves II through XII are grossly intact Lymph: There is no lymphadenopathy appreciated in the cervical supra infraclavicular regions : no burton IVs and Medications Medications Reviewed: Medications were reviewed in detail Lab and Diagnostics Result Diagram: 01/04/1782401/04/17824 X-Rays, CTs and MRIs CT Abd / Pelvis Interpretation CONCLUSION: Heterogeneous appearing liver with a focal hypodense area noted in the liver measuring up to 14cm in size. Possible considerations include infection and tumor. Pelvic mass in the region of the uterus. While fibroid is a consideration. Other tumor would be difficult to exclude. Findings suggestion of constipation. Cardiomegaly. 5mm left lower pulmonary nodule. Radiologist: Andrea Singh MD PROCEDURE: 1. Sinogram through existing catheter. 2. Drain exchange and reposition. 3. Conscious sedation x21 minutes. IMPRESSION: Drainage catheter upsizing and repositioning as described above. Pigtail catheter is now within the superior aspect of the abscess cavity, which appears to contain viscous contents. Dictated by: Junito Cardozo M.D. 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 Bynum oncology), found to be liver abscess s/p IR drain/ertapenem for kleb/ ecoli bacteremia/abscess. Presented to the ED complaining of upper abdominal pain in achy bandlike. no associated UTIs. # Escherichia coli and klebsiella Acute liver abscess WITH BACTEREMIA , present on admission. Ongoing -Liver drain output was minimal but on repeat imaging 12/30 shows persistence of liver abscess , Underwent successful repositioning and upsizing of liver abscess drain 12/31. Now draining. Continue flushing the drain every shift - CT-guided drain placement for a hepatic abscess on 12/17/[address] Joel .repositioning and upsizing of liver abscess drain 12/[address] Cardozo - Ertapenem 1000 mg daily intravenously (started on 12/20/[address] Webber/ID recs - at least while inpatient). LIKELY CIPROFLOXACIN AND FLAGYL FITTER PLACER ON DISCHARGE. Dr Webber will follow patient on 01/15/17 outpatient -Will plan to repeat CT in 1-2 days or when output is < 20ml/day -Patient had on and off fever. now afebrile. Blood culture sent 01/01 no growth --no echo since not gram positive, unlikely endocarditis risk # Acute sepsis, present on admission, clinically/leucocytosis resolved. - Initial Vital signs in the ED: Temperature 37.9, pulse 115, respiratory rate 18, blood pressure 126/57, with a map of 80, pulse ox 100% on room air.White blood cell count 21.8 with 90.5% neutrophils, # Acute left upper extremity DVT at site of PICC line. Not present on admission - PICC line removed on 12/20 - Per discussion with hematology (Dr. Travis on 12/[address] Bynum on 12/23) - treat patient with Lovenox given extent of DVT despite possible risk of bleeding FROM HER HHT. --Risks and benefits were discussed with patient on 12/20 -Oral anticoagulation hasn't been started given drain in place was required repositioning and upsizing. May consider initiating NOACs upon discharge or warfarin with Lovenox bridging after repeat CT scan in the next 1-2 days if no further intervention is planned # Normocytic normochromic Anemia requiring transfusions, present on admission - secondary Gastric and duodenal hereditary hemorrhagic telangiectasia - Followup daily H/H -- transfuse when HG is 6-7 or energy worse -Hemoglobin 6.9 on 12/30, transfused 2 PRBCs 12/30. 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 likely 3-4 more days. Eventually to [facility] assisted living W/ [facility] VTE Prophylaxis: Sub-Q Heparin (Unfractionated) VTE Mechanical Devices: Intermittant Pneumatic CD Resuscitation Status: CPR: Attempt Resuscitation Ronald Shields MD Jan 04, 2017 11:09
[2017-01-04] MEDS ORDERED: 0.9% Sodium Chloride 250 ML ONE (12:29)
[2017-01-04] MEDS: Ertapenem Inj 1,000 MG in 0.9% Sodium Chloride 50 ML IV SCH (12:36)
[2017-01-04 13:14] VITALS: BP 116/65; PULSE 88; RESP 12; O2SAT 98
--- NOTE | 2017-01-04 13:27 | NUR ---
[facility] signed
--- NOTE | 2017-01-04 18:30 | NUR ---
Student Nurse Note: Drain output 12mL at end of shift. Then flushed w/ 20mL NS.
--- NOTE | 2017-01-04 18:40 | NUR ---
Drain out put Dr. Shields aware r/t out put less than 20cc. per Dr. Shields," Will order Abdominal CT tomorrow."
[2017-01-04 21:49] VITALS: BP 113/59; PULSE 85; RESP 16; O2SAT 97
[2017-01-05] MEDS: HYDROmorphone 0.5 mg/0.5 mL iSecure Syringe IVPUSH PRN ×2 (02:19→12:19)
[2017-01-05 06:26] VITALS: BP 118/62; PULSE 68; RESP 16; O2SAT 95
--- NOTE | 2017-01-05 07:30 | NUR ---
Drain/Pain Pt's abdominal drain had 40mL brown colored drainage. Per report drain was flushed with 20mL NS prior to shift change. Pt stating pain 5/10 to abdomen, medicated pt with 0.5mg IV dilaudid, pt resting in bed with eyes closed after medication admin.
[2017-01-05] MEDS: Polyethylene Glycol (PEG) 17 Gm Powder PO SCH (08:30)
[2017-01-05] MEDS: Pantoprazole 20 mg ER24 Tablet PO SCH ×2 (10:27→16:41)
[2017-01-05] MEDS: Ertapenem Inj 1,000 MG in 0.9% Sodium Chloride 50 ML IV SCH (12:46)
--- NOTE | 2017-01-05 13:19 | PCM.PNMED ---
Subjective Date of Service Jan 05, 2017 Subjective liver drain drained 40 ml overnight. Afebrile. Patient feeling better overall Exam Vital Signs Vital Sign - Last Date Time Temp Pulse Resp B/P Pulse Ox O2 Delivery O2 Flow Rate FiO2 01/05/17 06:26 36.8 68 16 118/62 95 Room Air Intake and Output 01/04/17 01/04/17 01/05/17 Cumulative From/Thru 15:00 23:00 07:00 12/16/16 22:37 - 01/05/17 06:57 Intake Total 917 ml 120 ml 71622 ml Output Total 837 ml 540 ml 66337 ml Balance 80 ml -420 ml -2336 ml Intake Oral 800 ml 100 ml 10774 ml IV Total 117 ml 32753 ml Packed Cells 600 ml Tube Irrigant 20 ml 60 ml Output Urine Total 825 ml 500 ml 94863 ml Urine/Stool Mix 3 ml Drainage Total 12 ml 40 ml 874 ml # Voids 10 # Bowel Movements 1 1 11 Exam Gen. Cachectic patient lying comfortably in hospital bed HEENT: Head is normocephalic atraumatic, Pupils equal and reactive, extraocular movements intact, Lungs clear to auscultation bilaterally Heart regular rate and rhythm without murmurs gallops or rubs Abdomen soft nontender without hepatosplenomegaly,liver drain in place with green purulent fluid > 20cc in bag currently Extremities pulses are present dorsalis pedis posterior tibialis and radial. Skin is warm and dry there are no rashes, Psych alert and oriented to person place and time Neuro cranial nerves II through XII are grossly intact Lymph: There is no lymphadenopathy appreciated in the cervical supra infraclavicular regions : no burton IVs and Medications Medications Reviewed: Medications were reviewed in detail Lab and Diagnostics Result Diagram: 01/04/1782401/04/17 08 X-Rays, CTs and MRIs CT Abd / Pelvis Interpretation CONCLUSION: Heterogeneous appearing liver with a focal hypodense area noted in the liver measuring up to 14cm in size. Possible considerations include infection and tumor. Pelvic mass in the region of the uterus. While fibroid is a consideration. Other tumor would be difficult to exclude. Findings suggestion of constipation. Cardiomegaly. 5mm left lower pulmonary nodule. Radiologist: Andrea Singh MD PROCEDURE: 1. Sinogram through existing catheter. 2. Drain exchange and reposition. 3. Conscious sedation x21 minutes. IMPRESSION: Drainage catheter upsizing and repositioning as described above. Pigtail catheter is now within the superior aspect of the abscess cavity, which appears to contain viscous contents. Dictated by: Junito Cardozo M.D. 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 Bynum oncology), found to be liver abscess s/p IR drain/ertapenem for kleb/ ecoli bacteremia/abscess. Presented to the ED complaining of upper abdominal pain in achy bandlike. no associated UTIs. # Escherichia coli and klebsiella Acute liver abscess WITH BACTEREMIA , present on admission. Ongoing -Liver drain output was minimal but on repeat imaging 12/30 shows persistence of liver abscess , Underwent successful repositioning and upsizing of liver abscess drain 12/31. Now draining. Continue flushing the drain every shift - CT-guided drain placement for a hepatic abscess on 12/17/[address] Joel .repositioning and upsizing of liver abscess drain 12/[address] Cardozo - Ertapenem 1000 mg daily intravenously (started on 12/20/[address] Webber/ID recs - at least while inpatient). LIKELY CIPROFLOXACIN AND FLAGYL [facility] ON DISCHARGE. Dr Webber will follow patient on 01/15/17 outpatient -Will plan to repeat CT in 1-2 days or when output is < 20ml/day -Patient had on and off fever. now afebrile. Blood culture sent 01/01 no growth --no echo since not gram positive, unlikely endocarditis risk # Acute sepsis, present on admission, clinically/leucocytosis resolved. - Initial Vital signs in the ED: Temperature 37.9, pulse 115, respiratory rate 18, blood pressure 126/57, with a map of 80, pulse ox 100% on room air.White blood cell count 21.8 with 90.5% neutrophils, # Acute left upper extremity DVT at site of PICC line. Not present on admission - PICC line removed on 12/20 - Per discussion with hematology (Dr. Travis on 12/[address] Bynum on 12/23) - treat patient with Lovenox given extent of DVT despite possible risk of bleeding FROM HER HHT. --Risks and benefits were discussed with patient on 12/20 -Oral anticoagulation hasn't been started given drain in place was required repositioning and upsizing. May consider initiating NOACs upon discharge or warfarin with Lovenox bridging after repeat CT scan in the next 1-2 days if no further intervention is planned # Normocytic normochromic Anemia requiring transfusions, present on admission - secondary Gastric and duodenal hereditary hemorrhagic telangiectasia - Followup daily H/H -- transfuse when HG is 6-7 or energy worse -Hemoglobin 6.9 on 12/30, transfused 2 PRBCs 12/30. 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 likely 3-4 more days. if repeat CT tmrw shows significant abscess may consider discharging with drain to SNF.otherwise Eventually to [facility] W/ HOME [facility] VTE Prophylaxis: Sub-Q Heparin (Unfractionated) VTE Mechanical Devices: Intermittant Pneumatic CD Resuscitation Status: CPR: Attempt Resuscitation Ronald Shields MD Jan 05, 2017 13:19
[2017-01-05 15:32] VITALS: BP 115/58; PULSE 83; RESP 16; O2SAT 96
[2017-01-05 20:36] VITALS: BP 123/61; PULSE 82; RESP 16; O2SAT 95
[2017-01-06 05:00] VITALS: BP 125/52; PULSE 74; RESP 18; O2SAT 96
--- NOTE | 2017-01-06 06:06 | NUR ---
Pain/Drain: Pt c/o abdominal pain x1, PO Tylenol administered; effective. Pt's pig tail drain produced 30 ml dark brown liquid this shift. Pt slept most of the night, pleasant and cooperative with care.
--- NOTE | 2017-01-06 08:11 | PROG NOTE ---
[address] [address] PROGRESS NOTE PATIENT: STEWART UREÑA : 1935 MR#: [id number] ADMIT: 12/17/2016 JOB ID: [id number] DATE: 01/06/2017 SUBJECTIVE: The patient is an 81-year-old woman with hereditary hemorrhagic telangiectasia. She is hospitalized with a right liver abscess. She still has a percutaneous drain, with a small amount of bilious fluid. She remains on broad-spectrum antibiotic coverage with ertapenem 1000 mg IV daily. She did not have any additional imaging over the weekend. She has been afebrile. Oral intake is poor and she is quite cachectic. OBJECTIVE: Vitals: T 36.6, P 74, R 18, BP 125/52. HEENT: Conjunctivae pale. Mucous membranes dry. Chest: Clear. Cardiac exam: Regular rate and rhythm, with rare ectopic beat. Normal S1, S2. Abdomen: Soft. Minimal tenderness. Hepatic drain intact. Extremities: Muscular wasting. No edema. 2+ distal pulses. LABORATORIES: (January 04, 2017) WBC 3.3, hemoglobin 8.4, hematocrit 26.9%, platelets 287,000. BUN 5, creatinine less than 0.3, glucose 87. AST 27, ALT 20, alkaline phosphatase 484. ASSESSMENT AND PLAN: 1. Hereditary hemorrhagic telangiectasia: Stable, with no indication for transfusion support based on recent laboratory studies. Continue to monitor. 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 2. Right liver abscess: The patient had a 6 cm mass in the right liver. Sampling was positive for both Escherichia coli and Klebsiella. She is still on intravenous ertapenem 1000 mg daily, under the guidance of Dr. Webber and the hospitalist team. She has been afebrile.
[2017-01-06] MEDS: Pantoprazole 20 mg ER24 Tablet PO SCH ×2 (08:25→17:06)
[2017-01-06] MEDS: Polyethylene Glycol (PEG) 17 Gm Powder PO SCH (08:26)
--- NOTE | 2017-01-06 10:41 | NUR ---
FERDINAND Signed @ 9991AM
--- NOTE | 2017-01-06 12:30 | PCM.PNMED ---
Subjective Date of Service January 06, 2017 Subjective Patient is feeling well this morning, improving abdominal pain. She denies any fever chills. Appetite as well as improved she is noting a little more energy one day prior. Anxious for home discharge but understanding that it still may take on more time. Liver tube draining abscess continues to demonstrate significant output approximately 30 mL noted overnight brownish serous liquid. Exam Vital Signs Vital Sign - Last Date Time Temp Pulse Resp B/P Pulse Ox O2 Delivery O2 Flow Rate FiO2 01/06/17 05:00 36.6 74 18 125/52 96 Room Air Intake and Output 01/05/17 01/05/17 01/06/17 Cumulative From/Thru 15:00 23:00 07:00 12/16/16 22:37 - 01/06/17 06:21 Intake Total 1200 ml 100 ml 77027 ml Output Total 640 ml 280 ml 92981 ml Balance 560 ml -180 ml -1956 ml Intake Oral 1200 ml 100 ml 06387 ml IV Total 53793 ml Packed Cells 600 ml Tube Irrigant 60 ml Output Urine Total 625 ml 250 ml 71332 ml Urine/Stool Mix 3 ml Drainage Total 15 ml 30 ml 919 ml # Voids 10 # Bowel Movements 1 1 13 General: Alert, Oriented X3, Cooperative, Mild Distress Mouth: Mucous Membr Moist/[place] Chest & Lungs: Clear to auscultation & percussion Cardiovascular: Regular Rate/Rhythm Abdomen: Non-tender, Distended, Other (positive bowel sounds hepatic tube on right side draining brown serous fluid. dressing is clean. ) Extremities: No cyanosis/clubbing/edma bilat Neurological: Grossly Neurologically Intact IVs and Medications Medications Reviewed: Medications were reviewed in detail Lab and Diagnostics Result Diagram: 01/04/1782401/04/17824 X-Rays, CTs and MRIs CT Abd / Pelvis Interpretation CONCLUSION: Heterogeneous appearing liver with a focal hypodense area noted in the liver measuring up to 14cm in size. Possible considerations include infection and tumor. Pelvic mass in the region of the uterus. While fibroid is a consideration. Other tumor would be difficult to exclude. Findings suggestion of constipation. Cardiomegaly. 5mm left lower pulmonary nodule. Radiologist: Andrea Singh MD PROCEDURE: 1. Sinogram through existing catheter. 2. Drain exchange and reposition. 3. Conscious sedation x21 minutes. IMPRESSION: Drainage catheter upsizing and repositioning as described above. Pigtail catheter is now within the superior aspect of the abscess cavity, which appears to contain viscous contents. Dictated by: Junito Cardozo M.D. 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 Bynum oncology), found to be liver abscess s/p IR drain/ertapenem for kleb/ ecoli bacteremia/abscess. Presented to the ED complaining of upper abdominal pain in achy bandlike. no associated UTIs. # Escherichia coli and klebsiella Acute liver abscess WITH BACTEREMIA , present on admission. Ongoing -Liver drain output was minimal but on repeat imaging 12/30 shows persistence of liver abscess , Underwent successful repositioning and upsizing of liver abscess drain 12/31. Now draining. Continue flushing the drain every shift - CT-guided drain placement for a hepatic abscess on 12/17/[address] Joel .repositioning and upsizing of liver abscess drain 12/[address] Cardozo - Ertapenem 1000 mg daily intravenously (started on 12/20/[address] Webber/ID recs - at least while inpatient). CIPROFLOXACIN AND FLAGYL [facility] ON DISCHARGE once the tube is pulled. Dr Webber will follow patient on 01/15/17 outpatient -Will plan to repeat CT in 1-2 days or when output is < 20ml/day -Patient had on and off fever. now afebrile. Blood culture sent 01/01 no growth --no echo since not gram positive, unlikely endocarditis risk # Acute sepsis, present on admission, clinically/leucocytosis resolved. - Initial Vital signs in the ED: Temperature 37.9, pulse 115, respiratory rate 18, blood pressure 126/57, with a map of 80, pulse ox 100% on room air.White blood cell count 21.8 with 90.5% neutrophils, now resolved. # Acute left upper extremity DVT at site of PICC line. Not present on admission - PICC line removed on 12/20 - Per discussion with hematology (Dr. Travis on 12/[address] Bynum on 12/23) - treat patient with Lovenox given extent of DVT despite possible risk of bleeding FROM HER HHT. --Risks and benefits were discussed with patient on 12/20 -Oral anticoagulation hasn't been started given drain in place was required repositioning and upsizing. May consider initiating NOACs upon discharge or warfarin with Lovenox bridging after repeat CT scan in the next 1-2 days if no further intervention is planned # Normocytic normochromic Anemia requiring transfusions, present on admission - secondary Gastric and duodenal hereditary hemorrhagic telangiectasia - Followup daily H/H -- transfuse when HG is 6-7 or energy worse, which is not the case currently. -Hemoglobin 6.9 on 12/30, transfused 2 PRBCs 12/30. 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 likely 2-3 more days. if repeat CT tmrw shows significant abscess may consider discharging with drain to SNF.otherwise Eventually to [facility] W/ HOME [facility] Pain Evaluation: Adequate Pain Control VTE Prophylaxis: Sub-Q Heparin (Unfractionated) VTE Mechanical Devices: Intermittant Pneumatic CD Resuscitation Status: CPR: Attempt Resuscitation Time spent 30 minutes Pavan Rios DO January 06, 2017 12:30
[2017-01-06] MEDS ORDERED: 0.9% Sodium Chloride 100 ML ONE (13:10)
[2017-01-06] MEDS: Ertapenem Inj 1,000 MG in 0.9% Sodium Chloride 50 ML IV SCH (13:14)
[2017-01-06 14:25] VITALS: BP 107/57; PULSE 86; RESP 16; O2SAT 97
--- NOTE | 2017-01-06 15:35 | NUR ---
NUTRITION FOLLOW UP: Assess: 81 YO F with liver abscess s/p CT drain placement. Drain was repositioned and up-sized 12/30 to allow abscess to drain more. IV antibiotics continue at this time. DVT currently being treated with Lovenox. PO intake has improved 75-100% of meals. Noted pt to have repeat CT today with possible removal of drain. PMHx: Ulcerated gastroesophageal junction, Irregular gastroesophageal junction, Gastric and duodenal hereditary hemorrhagic telangiectasia, Hypothyroid, malnutrition, uterine fibroid. LABS: Reviewed. Alb 2.5, Pro 5.0 MEDICATIONS: Reviewed. DIET: General. Ensure all trays. PO intake 75-100% of meals. GI: BM x 1 (01/06) SKIN: No issues noted ANTHROPOMETRICS: Current wt: (01/01)41.8 kg. Admit Wt: (12/17) 41.5 kg (standing scale) Past Admit Wt: 38.5 kg (Bed scale) IBW: 52.3 kg. UBW (November): 54 kg. Severe wt loss noted in past, but wt appears stable with slight increase over the past 3 months. ESTIMATED NEEDS: Malnutrition Calories: 3539-8356 kcal/day (30-35 kcal/kg IBW) Protein: 65-80 g/day (1.2-1.5 g/kg IBW) NUTRITION DIAGNOSIS: 1) Severe malnutrition related to chronic illness as evidenced by variable wt, visible loss of LBM/ fat--PERSISTS 2) Inadequate oral intake related to altered GI function as evidence by early satiety, BMI of 16.2--IMPROVING. INTERVENTION: 1) Continue to send ensure on all trays. 2) Pt has received high calorie/high protein education on 09/11/16 and 11/05/16. 3) Request RN obtain new weight on pt. MONITOR/EVALUATE: PO intake, labs, weights, nutrition status. Follow per moderate nutrition risk guidelines.
--- NOTE | 2017-01-06 17:10 | PROG NOTE ---
[address] [address] PROGRESS NOTE PATIENT: STEWART UREÑA : 1935 MR#: [id number] ADMIT: 12/17/2016 JOB ID: [id number] DATE: 01/06/2017 REASON FOR FOLLOWUP: Polymicrobial and bacteremic liver abscess. INTERVAL HISTORY: The patient reports over the weekend, she has been doing fairly well. She denies fevers or chills. She has no cough or shortness of breath. She continues to have some minimal right upper quadrant pain. Her liver abscess drain is still in place which is frustrating to her as she was hoping it would be removed. I explained to her that will not be removed until her drainage is down to 10 or 20 cc per day consistently, and that the drainage volume is still above that parameter. She is able to eat and tells me she is able to walk around the halls. PHYSICAL EXAMINATION: Reveals an afebrile woman, temp 37.1, pulse 86, respiratory rate 16, blood pressure 107/57. She is saturating well on room air and in no acute distress. Oral cavity without change. Lungs clear. Abdomen: Soft and nontender. Right upper quadrant drain is in place with scant brownish fluid collecting in the drain. The extremities are thin but without apparent abnormality. LABORATORIES: Include white count today 3300 which is a drop from her baseline around 5000. I remember that when she came in, her white count was 25,000. Her platelet count is currently 287, hematocrit 27, creatinine less than 0.3. Micro studies: Negative in terms of the follow-up blood culture. No other studies available at this time. IMAGING: No new imaging is available. IMPRESSION: 1. Polymicrobial bacteremic liver abscess in an elderly patient. She seems stable at this point and could be ready for a transition to oral Cipro and Flagyl at any time once the decision is made to pull her drain and release her. RECOMMENDATIONS: 1. I would follow up with Interventional Radiology and see if additional imaging is needed. 2. Once the drainage per day falls below the required minimum as per the IR team, then the drain could be pulled and the patient could be discharged. 3. She should go home on b.i.d. Cipro and b.i.d. Flagyl. 4. Follow up will be with me in clinic January 15. Thank you very much. I will see the patient again tomorrow.
--- NOTE | 2017-01-06 18:00 | NUR ---
drain drained 18ml of dark round drainage. Flushed with 10cc NS per Dr Cornelius sotelo.
[2017-01-06 20:04] VITALS: BP 116/57; PULSE 76; RESP 16; O2SAT 98
--- NOTE | 2017-01-07 05:13 | NUR ---
Drain RT flank drain put out 25mls thick brown liquid not including the flush.
[2017-01-07 05:41] VITALS: BP 103/66; PULSE 67; RESP 16; O2SAT 97
[2017-01-07 07:08] LABS: BASOPHILS % (AUTO) 1.3 % (0-3); EOSINOPHILS % (AUTO) 2.5 % (0-5); MONOCYTES % (AUTO) 15.2 % (4-12); Mean Corpuscular Hemoglobin 29.9 pg (27.0-35.0); Mean Corpuscular Volume 96.2 fL (81-100); NEUTROPHILS % (AUTO) 60.2 % (40-74); Platelet Count 390 bil/L (150-400)
--- NOTE | 2017-01-07 08:03 | PCM.PNMED ---
Subjective Date of Service January 07, 2017 Subjective Patient notes feeling overall well today, certainly much improved since admission to hospitalization. Still noting a good amount of discharge from intrahepatic drain, this causes her no discomfort. Denies fever chills. No other acute complaints or concerns at this time. Exam Vital Signs Vital Sign - Last Date Time Temp Pulse Resp B/P Pulse Ox O2 Delivery O2 Flow Rate FiO2 01/07/17 05:41 36.8 67 16 103/66 97 Room Air Intake and Output 01/06/17 01/06/17 01/07/17 Cumulative From/Thru 15:00 23:00 07:00 12/16/16 22:37 - 01/07/17 06:10 Intake Total 630 ml 350 ml 63256 ml Output Total 968 ml 900 ml 16678 ml Balance -338 ml -550 ml -2844 ml Intake Oral 500 ml 350 ml 34838 ml IV Total 130 ml 88437 ml Packed Cells 600 ml Tube Irrigant 60 ml Output Urine Total 950 ml 900 ml 46391 ml Urine/Stool Mix 3 ml Drainage Total 18 ml 937 ml # Voids 10 # Bowel Movements 5 18 Exam General: Alert, Oriented X3, Cooperative, Mild Distress Mouth: Mucous Membranes Moist/[place] Chest & Lungs: Clear to auscultation & percussion Cardiovascular: Regular Rate/Rhythm Abdomen: Non-tender, decreased distention, positive bowel sounds, hepatic tube on right side draining brown serous fluid. dressing is clean. Extremities: No cyanosis/clubbing/edmea bilat Neurological: Grossly Neurologically Intact IVs and Medications Medications Reviewed: Medications were reviewed in detail Lab and Diagnostics Result Diagram: 01/07/17 0635 01/07/17 0635 X-Rays, CTs and MRIs CT Abd / Pelvis Interpretation CONCLUSION: Heterogeneous appearing liver with a focal hypodense area noted in the liver measuring up to 14cm in size. Possible considerations include infection and tumor. Pelvic mass in the region of the uterus. While fibroid is a consideration. Other tumor would be difficult to exclude. Findings suggestion of constipation. Cardiomegaly. 5mm left lower pulmonary nodule. Radiologist: Andrea Singh MD PROCEDURE: 1. Sinogram through existing catheter. 2. Drain exchange and reposition. 3. Conscious sedation x21 minutes. IMPRESSION: Drainage catheter upsizing and repositioning as described above. Pigtail catheter is now within the superior aspect of the abscess cavity, which appears to contain viscous contents. Dictated by: Junito Cardozo M.D. 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 Bynum oncology), found to be liver abscess s/p IR drain/ertapenem for kleb/ ecoli bacteremia/abscess. Presented to the ED complaining of upper abdominal pain in achy bandlike. no associated UTIs. # Escherichia coli and klebsiella Acute liver abscess WITH BACTEREMIA , present on admission. Ongoing -Liver drain output was minimal but on repeat imaging 12/30 shows persistence of liver abscess , Underwent successful repositioning and upsizing of liver abscess drain 12/31. Now draining. Continue flushing the drain every shift - CT-guided drain placement for a hepatic abscess on 12/17/[address] Joel .repositioning and upsizing of liver abscess drain 12/[address] Cardozo - Ertapenem 1000 mg daily intravenously (started on 12/20/[address] Webber/ID recs - at least while inpatient). CIPROFLOXACIN AND FLAGYL POWERPLANT OPERATOR ON DISCHARGE once the tube is pulled. Dr Webber will follow patient on 01/15/17 outpatient -Will plan to repeat CT in 1-2 days or when output is < 20ml/day -Patient had on and off fever. now afebrile for past few days. Blood culture sent 01/01 no growth --no echo since not gram positive, unlikely endocarditis risk - Continue to wait a decrease in hepatic tube drainage to consider removal of tube and likely discharge home on oral medications. - # Acute sepsis, present on admission, clinically/leucocytosis resolved. - Initial Vital signs in the ED: Temperature 37.9, pulse 115, respiratory rate 18, blood pressure 126/57, with a map of 80, pulse ox 100% on room air.White blood cell count 21.8 with 90.5% neutrophils, now resolved. # Acute left upper extremity DVT at site of PICC line. Not present on admission - PICC line removed on 12/20 - Per discussion with hematology (Dr. Travis on 12/[address] Bynum on 12/23) - treat patient with Lovenox given extent of DVT despite possible risk of bleeding FROM HER HHT. --Risks and benefits were discussed with patient on 12/20 -Oral anticoagulation hasn't been started given drain in place was required repositioning and upsizing. May consider initiating NOACs upon discharge or warfarin with Lovenox bridging after repeat CT scan in the next 1-2 days if no further intervention is planned # Normocytic normochromic Anemia requiring transfusions, present on admission - secondary Gastric and duodenal hereditary hemorrhagic telangiectasia - Followup daily H/H -- transfuse when HG is 6-7 or energy worse, which is not the case currently. -Hemoglobin 6.9 on 12/30, transfused 2 PRBCs 12/30. Hemoglobin is again downward trend, may require further transfusion during this hospitalization. - Follow-up a.m. level the patient is currently asymptomatic. 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 # History of Ulcerated gastroesophageal junction, with history of upper GI bleed s/p omental patch - Stable # Cachexia, chronic, present on admission, active improving oral intake # Chronic constipation, present on admission, ongoing - Continue with stool softeners and enema # Hypothyroidism, chronic - Status post partial thyroidectomy - Continue patient's home medication Dispo: pending hospital course. likely 2 more days. if repeat CT tmrw shows significant abscess may consider discharging with drain to SNF.otherwise Eventually to [facility] assisted living W/ HOME [facility] Pain Evaluation: Adequate Pain Control VTE Prophylaxis: Sub-Q Heparin (Unfractionated) VTE Mechanical Devices: Intermittant Pneumatic CD Resuscitation Status: CPR: Attempt Resuscitation Time spent 25 minutes Pavan Rios DO January 07, 2017 08:03
[2017-01-07] MEDS: Pantoprazole 20 mg ER24 Tablet PO SCH ×2 (08:12→17:39)
[2017-01-07] MEDS: Polyethylene Glycol (PEG) 17 Gm Powder PO SCH (08:12)
--- NOTE | 2017-01-07 11:53 | PROG NOTE ---
[address] [address] PROGRESS NOTE PATIENT: STEWART UREÑA : 1935 MR#: [id number] ADMIT: 12/17/2016 JOB ID: [id number] DATE: 01/07/2017 REASON FOR FOLLOWUP: Polymicrobial bacteremic liver abscess. INTERVAL HISTORY: Overnight, the patient has remained completely stable. She denies fevers, chills, or sweats. No significant cough or shortness of breath. No nausea, vomiting, diarrhea. She has no right upper quadrant pain. PHYSICAL EXAMINATION: Reveals an afebrile woman. No acute distress. Temp 36.8, pulse 67, respiratory rate 16, blood pressure 103/66, saturating well on room air. Her output from her right upper quadrant drain has increased overnight. It is now more than 40 cc. Examination of the oral cavity unremarkable. Lungs fairly clear. Abdomen remains soft and nontender. The right upper quadrant drain is still in place. LABORATORIES: Include white blood count 4500, diff essentially normal except for a mild monocytosis. Creatinine less than 0.3. Alk phos 405, which is still slowly trending down. Albumin 2.3. No new micro is available. No new imaging is available. IMPRESSION: Polymicrobial liver abscess with continued clinical improvement but still with sizable drainage. RECOMMENDATIONS: 1. Will continue with ertapenem for the time being and, when she goes home after the drain is pulled, she will go out on Cipro and Flagyl. 2. We may wish to readdress this case with Interventional Radiology and/or GI to see how much longer they think that the drain is indicated, but obviously as long as there is substantial drainage, it is probably needed. 3. This case is discussed in person with Dr. Rios.
[2017-01-07] MEDS: Ertapenem Inj 1,000 MG in 0.9% Sodium Chloride 50 ML IV SCH (12:05)
[2017-01-07 13:20] VITALS: BP 110/63; PULSE 88; RESP 16; O2SAT 98
--- NOTE | 2017-01-07 14:52 | NUR ---
AMBULATE W/NSG Pt continues to be released to ambulate w/nsg using FWW for safety SBA/CGA prn 2-3x/day. PT will cont to see 2x/week to progress to ambulation w/o AD, as per POC.
--- NOTE | 2017-01-07 17:10 | NUR ---
Social Work: Readiness for Discharge Data: Pt is on day 21 of hospitalization for hepatic abscess mass. EMR reviewed. Pt was discussed in morning rounds and will likely be here 1-2 more days while she finishes IV antibiotics and absess drains. Pt is from [facility] and they assessed her on 12/27, will accept her back at discharge. Pt will discharge with Hayley PEREZ PT/RN, access given and face No further needs assessed at this time. SW will continue to follow. Assessment: Pt from [facility]. Plan: Pt to discharge back to [facility] when medically ready with Hayley PEREZ PT/RN. SW will continue to follow for needs. SOHAN Russell
--- NOTE | 2017-01-07 18:31 | NUR ---
Drain/activity Pt's drain flushed easily this AM, flushed with 20 ml of sterile saline. At end of shift, total output 25ml, 5 ml being true output. Drainage brown/thick. Pt states no discomfort r/t to drain. Pt amb with PT this afternoon, reported feeling "weaker" than usual. Enc to get OOB for meals, pt refused. Offered to amb in solo, pt req to wait until AM. Bed in lowest, locked position and call light in reach.
[2017-01-07 20:36] VITALS: BP 106/61; PULSE 78; RESP 16; O2SAT 97
[2017-01-07] MEDS: HYDROmorphone 0.5 mg/0.5 mL iSecure Syringe IVPUSH PRN (20:45)
[2017-01-08] VITALS (7 sets, daily range): BP systolic 105–138; BP diastolic 54–71; PULSE 64–88; RESP 16–18; O2SAT 96–98
--- NOTE | 2017-01-08 07:22 | NUR ---
Drainage 20cc output after 20cc flush = 0cc total output dark liquid
[2017-01-08 07:40] LABS: BASOPHILS % (AUTO) 1.5 % (0-3); EOSINOPHILS % (AUTO) 3.3 % (0-5); MONOCYTES % (AUTO) 14.1 % (4-12); Mean Corpuscular Volume 97.3 fL (81-100); NEUTROPHILS % (AUTO) 58.3 % (40-74); Platelet Count 450 bil/L (150-400)
[2017-01-08] MEDS: Pantoprazole 20 mg ER24 Tablet PO SCH ×2 (07:42→17:20)
[2017-01-08] MEDS: Polyethylene Glycol (PEG) 17 Gm Powder PO SCH (07:45)
--- NOTE | 2017-01-08 11:49 | PCM.PNMED ---
Subjective Date of Service January 08, 2017 Subjective Patient at least reports being in stable condition today. Still feeling weak but that has been her recent baseline. Denies any shortness of breath chest pains palpitations. Abdominal discomfort present but no overt pain. Perhaps just a little more winded than usual when rising the bathroom earlier today. No other acute complaints at this time Exam Vital Signs Vital Sign - Last Date Time Temp Pulse Resp B/P Pulse Ox O2 Delivery O2 Flow Rate FiO2 01/08/17 05:32 36.8 64 16 105/54 98 Room Air Intake and Output 01/07/17 01/07/17 01/08/17 Cumulative From/Thru 15:00 23:00 07:00 12/16/16 22:37 - 01/08/17 06:47 Intake Total 990 ml 200 ml 75484 ml Output Total 5 ml 1000 ml 48558 ml Balance 985 ml -800 ml -2659 ml Intake Oral 860 ml 200 ml 88955 ml IV Total 130 ml 79035 ml Packed Cells 600 ml Tube Irrigant 60 ml Output Urine Total 1000 ml 87380 ml Urine/Stool Mix 3 ml Drainage Total 5 ml 942 ml # Voids 6 16 # Bowel Movements 0 18 Exam General: Alert, Oriented X3, Cooperative, Mild Distress Eyes: Sclera are very pale Mouth: Mucous Membranes Moist/light [place] and pale. Chest & Lungs: Clear to auscultation & percussion Cardiovascular: Regular Rate/Rhythm Abdomen: Non-tender, decreased distention, positive bowel sounds, hepatic tube on right side draining brown serous fluid. dressing is clean. Extremities: No cyanosis/clubbing/edema bilat Neurological: Grossly Neurologically Intact IVs and Medications Medications Reviewed: Medications were reviewed in detail Lab and Diagnostics Result Diagram: 01/08/17 0701/08/17 0705 X-Rays, CTs and MRIs CT Abd / Pelvis Interpretation CONCLUSION: Heterogeneous appearing liver with a focal hypodense area noted in the liver measuring up to 14cm in size. Possible considerations include infection and tumor. Pelvic mass in the region of the uterus. While fibroid is a consideration. Other tumor would be difficult to exclude. Findings suggestion of constipation. Cardiomegaly. 5mm left lower pulmonary nodule. Radiologist: Andrea Singh MD PROCEDURE: 1. Sinogram through existing catheter. 2. Drain exchange and reposition. 3. Conscious sedation x21 minutes. IMPRESSION: Drainage catheter upsizing and repositioning as described above. Pigtail catheter is now within the superior aspect of the abscess cavity, which appears to contain viscous contents. Dictated by: Junito Cardozo M.D. 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 Bynum oncology), found to be liver abscess s/p IR drain/ertapenem for kleb/ ecoli bacteremia/abscess. Presented to the ED complaining of upper abdominal pain in achy bandlike. no associated UTIs. # Escherichia coli and klebsiella Acute liver abscess WITH BACTEREMIA , present on admission. Ongoing -Liver drain output was minimal but on repeat imaging 12/30 shows persistence of liver abscess , Underwent successful repositioning and upsizing of liver abscess drain 12/31. Now draining. Continue flushing the drain every shift - CT-guided drain placement for a hepatic abscess on 12/17/[address] Joel .repositioning and upsizing of liver abscess drain 12/[address] Cardozo - Ertapenem 1000 mg daily intravenously (started on 12/20/[address] Webber/KELLY bautista - at least while inpatient). CIPROFLOXACIN AND FLAGYL RETIREMENT ON DISCHARGE once the tube is pulled. Dr Webber will follow patient on 01/15/17 outpatient -Will plan to repeat CT today, given significant reduction in hepatic tube's output. -Patient had on and off fevers a few days prior. Now resolved, afebrile for past few days. Blood culture sent 01/01 no growth --no echo since not gram positive, unlikely endocarditis risk - Consider removal of tube based on CT finding, would like Dr. Sam to reassess patient tomorrow in anticipation of discharge. Likely will go home on oral medications. - # Acute sepsis, present on admission, clinically/leucocytosis resolved. - Initial Vital signs in the ED: Temperature 37.9, pulse 115, respiratory rate 18, blood pressure 126/57, with a map of 80, pulse ox 100% on room air.White blood cell count 21.8 with 90.5% neutrophils, now resolved. # Acute left upper extremity DVT at site of PICC line. Not present on admission - PICC line removed on 12/20 - Per discussion with hematology (Dr. Travis on 12/[address] Bynum on 12/23) - treat patient with Lovenox given extent of DVT despite possible risk of bleeding FROM HER HHT. --Risks and benefits were discussed with patient on 12/20 -Oral anticoagulation hasn't been started given drain in place was required repositioning and upsizing. May consider initiating NOACs upon discharge or warfarin with Lovenox bridging after Hepatic tube is removed. # Normocytic normochromic Anemia requiring transfusions, present on admission - secondary Gastric and duodenal hereditary hemorrhagic telangiectasia - Followup daily H/H. -Hemoglobin 6.9 on 12/30, transfused 2 PRBCs 12/30. Hemoglobin is again downward trending, today below 7. Coupled with pt's increased fatigue, will proceed with transfusion of 2 unitis PRCs tp. - Follow-up level in AM. 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 # History of Ulcerated gastroesophageal junction, with history of upper GI bleed s/p omental patch - Stable # Cachexia, chronic, present on admission, active improving oral intake # Chronic constipation, present on admission, ongoing - Continue with stool softeners and enema # Hypothyroidism, chronic - Status post partial thyroidectomy - Continue patient's home medication Dispo: pending hospital course. likely 1- 2 more days. [facility] to [facility] HOME [facility] Pain Evaluation: Adequate Pain Control VTE Prophylaxis: Sub-Q Heparin (Unfractionated) VTE Mechanical Devices: Intermittant Pneumatic CD Resuscitation Status: CPR: Attempt Resuscitation Time spent 25 minutes Pavan Rios DO January 08, 2017 11:48
[2017-01-08] MEDS: Ertapenem Inj 1,000 MG in 0.9% Sodium Chloride 50 ML IV SCH (12:05)
--- NOTE | 2017-01-08 12:08 | NUR ---
Drain removal Drain flushed this AM with 20ml of NS. Pt up to BR at 1200 and upon return to bed, stated to this RN that drain had come out. Pigtail drain intact, no noted breakage or missing parts. Occlusive drsg placed to drain site immediately. Pt denied any px/discomfort. MD on unit and aware that drain had been pulled out accidentally. CT ordered. Addendum: 01/08/17 at 1211 by ALVAREZ JENKINS RN Of 20ml flushed this AM, drainage from bag was 15ml.
--- NOTE | 2017-01-08 14:00 | NUR ---
Off unit Off unit to CT Addendum: 01/08/17 at 1434 by ALVAREZ JENKINS RN Pt back on unit at 1420
[2017-01-08] MEDS ORDERED: 0.9% Sodium Chloride 250 ML ONE ×2 (14:07→17:01)
--- NOTE | 2017-01-08 15:05 | DRSVH ---
PROCEDURE: CT ABDOMEN WITH CONTRAST ([id number]) INDICATIONS: evaluation of liver abscess/drain in place TECHNIQUE: After the administration of oral and intravenous contrast, 5 mm thick sections acquired from the diap hragms to the iliac crests. 5 mm thick coronal and sagittal reformats were acquired. For radiation dose reduction, the following was used: automated exposure control, adjustment of mA and/or kV accor ding to patient size. COMPARISON: [facility], CT, CT ABD PELVIS W CON, 10/30/2016, 12:32. [facility], CT, CT ABD W CON, 12/30/2016, 8:54. [facility], CT, CT ABD PELVIS W CON, 12/23/2016, 1 5:07. [facility], CT, CT ABD PELVIS W CON, 12/17/2016, 3:11. FINDINGS: Image quality: Diagnostic. Lung bases: Small bilateral pleural effusions are present with corresponding atelectasis. The heart is normal in size without a pericardial effusion. Coronary artery atherosclerosis is evident. Solid organs: The liver is extensively heterogeneous. The previously noted at percutaneous drainage catheter within the liver has been removed in the interim. However, there continues to be a promine nt loculated fluid collection that extends from the dome of the liver to the inferior margin of the l iver, which measures at least 13.5 x 3.6 x 2.8 cm (image 14, series 602 and image 9, series 603), pre viously measuring up to approximately 11.6 x 3.9 x 3.2 cm, when remeasured in a similar fashion. Ove rall, this loculated fluid collection is less prominent on the current study. Previously noted a sma ll possible extrahepatic loculated fluid collection along the inferior tip of the liver has not signi ficantly changed and probably communicates with the larger loculated fluid collection within the live r. Extensive heterogeneity of the inferior and lateral margins of the liver are noted, similar to th e prior study. The gallbladder is decompressed. The common bile duct is slightly prominent in size. The spleen, pancreas, and adrenals appear unchanged. The kidneys also appear unchanged. No hydronep hrosis is evident. Peritoneum and bowel: Large amount of stool is seen within the colon. No definite evidence to sugges t a bowel obstruction is evident. Enhancing nodules versus increased vascularity of the mesentery is noted. Nodes and vessels: No definite retroperitoneal or mesenteric adenopathy by size criteria. Aorta and inferior vena cava are normal in size. There is prominent aortic atherosclerosis. Bones: No suspicious bony lesions. Prominent S-shaped scoliotic curvature of the thoracolumbosacral spine is noted with advanced multilevel degenerative changes of the spine, similar to the prior stud y. No vertebral body compression fractures. Miscellaneous: Enhancing soft tissue attenuation is seen along the supraumbilical midline abdominal r egion this previous exams and probably represents enhancing mesentery extending through a small supra umbilical ventral hernia.. The patient's known pelvic mass is not well evaluated or completely inclu ded on this exam. There is diffuse subcutaneous edema throughout the imaged abdomen. IMPRESSION: 1. Interval removal of the liver drainage catheter with mild decrease in size of the loculated intra hepatic fluid collection/abscess. (Subjectively, there has been approximately 20% decrease in size o f the loculated fluid collection) 2. Extensive heterogeneity of the liver is similar to the prior study primarily appears to be relate d to multiple venovenous shunts/vascular malformations. However, superimposed heterogeneity related to infection or metastatic disease cannot be entirely excluded. 3. Small bilateral effusions. 4. Large amount of stool within the colon suggests constipation. 5. Nodular enhancement versus increased vascularity of the mesentery from multiple collateral mesent robin vessels. Please correlate clinically to exclude the possibility of peritoneal metastases. 6. Anasarca. Note: Findings were discussed with Dr. Rios at 1458 hours (PST) on 01/08/17. Dictated by: Tyrese Persaud M.D. on 01/08/2017 at 13:37 Approved by: Tyrese Persaud M.D. on 01/08/2017 at 14:03
--- NOTE | 2017-01-08 17:16 | NUR ---
Blood transfusion Pt completed first unit of PBRC's, tolerated well. Second unit alisson.
[2017-01-08 21:49] LABS: BASOPHILS % (AUTO) 1.2 % (0-3); EOSINOPHILS % (AUTO) 2.8 % (0-5); MONOCYTES % (AUTO) 15.2 % (4-12); Mean Corpuscular Hemoglobin 29.9 pg (27.0-35.0); Mean Corpuscular Volume 92.2 fL (81-100); NEUTROPHILS % (AUTO) 56.2 % (40-74); Platelet Count 447 bil/L (150-400)
[2017-01-08] MEDS: HYDROmorphone 0.5 mg/0.5 mL iSecure Syringe IVPUSH PRN (21:54)
[2017-01-09 05:23] VITALS: BP 111/57; PULSE 88; RESP 18; O2SAT 98
[2017-01-09 05:56] LABS: BASOPHILS % (AUTO) 0.9 % (0-3); EOSINOPHILS % (AUTO) 3.6 % (0-5); MONOCYTES % (AUTO) 15.2 % (4-12); Mean Corpuscular Hemoglobin 29.8 pg (27.0-35.0); Mean Corpuscular Volume 92.2 fL (81-100); Platelet Count 428 bil/L (150-400)
--- NOTE | 2017-01-09 08:46 | PROG NOTE ---
[address] [address] PROGRESS NOTE PATIENT: STEWART UREÑA : 1935 MR#: [id number] ADMIT: 12/17/2016 JOB ID: [id number] DATE: 01/09/2017 SUBJECTIVE: The patient is an 81-year-old woman with hereditary hemorrhagic telangiectasia. She was hospitalized with a right liver abscess. Percutaneous drain fell out yesterday. CT imaging of the abdomen and pelvis later in the day showed "interval removal of the liver drainage catheter" with about a 20% decrease in the size of loculated intrahepatic fluid collection/abscess. There was a large amount of stool suggesting constipation. She had a fever overnight up to 38.1 degrees centigrade. She denies any nausea or vomiting. No acute pain. OBJECTIVE: Vitals: T-max 38.1, P 88, R 18, BP 111/57. HEENT: Conjunctivae slightly pale. Mucous membranes moist. No oral lesions. Chest: Clear. Cardiac exam: Regular rate and rhythm with normal S1, S2. Abdomen: Soft. Minimal tenderness. A former drain site appears healthy. Extremities: Muscular wasting. No significant edema, 2+ distal pulses. LABORATORIES: WBC 4.2, hemoglobin 8.8, hematocrit 27.2%, platelets 428,000. BUN 7, creatinine less than 0.3, glucose 83. ASSESSMENT AND PLAN: 1. Hereditary hemorrhagic telangiectasia: Stable with no indication for transfusion based on current laboratory studies. Continue to monitor. Dr. Sam has returned from a brief time off, and could provide additional insight into ongoing gastrointestinal blood loss. 2. Right liver abscess: The patient's abscess was positive for both Escherichia coli and klebsiella. She is on broad-spectrum antibiotic coverage with ertapenem 1000 mg IV daily. However, following removal of her drain, which fell out, she has imaging that still shows about 80% of the residual fluid/abscess in the liver, and in addition, spiked a fever to 38.1 degrees centigrade last night. I would be in favor of replacing the percutaneous hepatic abscess drain, either surgically or via interventional radiology.
[2017-01-09] MEDS: Pantoprazole 20 mg ER24 Tablet PO SCH ×2 (09:05→16:05)
[2017-01-09] MEDS: Polyethylene Glycol (PEG) 17 Gm Powder PO SCH (09:06)
[2017-01-09] MEDS ORDERED: 0.9% Sodium Chloride 250 ML ONE (09:22)
[2017-01-09 12:40] VITALS: BP 120/61; PULSE 85; RESP 19; O2SAT 94
[2017-01-09] MEDS: Ertapenem Inj 1,000 MG in 0.9% Sodium Chloride 50 ML IV SCH (12:47)
--- NOTE | 2017-01-09 13:53 | PCM.PNMED ---
Subjective Date of Service January 09, 2017 Subjective Patient seen and examined at bedside. He was discouraged to learn of the findings a CT scan demonstrating significant abscess to present in the liver. She does note she is feeling better following transfusion, energy level is greater was walking around the unit quite a lot yesterday. Appetite is good as well she has no acute complaints at this time. Denies any overt abdominal pain she is of normal bowel bladder function. No acute complaints at this time. Exam Vital Signs Vital Sign - Last Date Time Temp Pulse Resp B/P Pulse Ox O2 Delivery O2 Flow Rate FiO2 01/09/17 12:40 37.0 85 19 120/61 94 Room Air Intake and Output 01/08/17 01/08/17 01/09/17 Cumulative From/Thru 15:00 23:00 07:00 12/16/16 22:37 - 01/09/17 06:12 Intake Total 1250 ml 450 ml 22035 ml Output Total 0 ml 1900 ml 25894 ml Balance 0 ml 1250 ml -1450 ml -2859 ml Intake Oral 580 ml 450 ml 67769 ml IV Total 70 ml 63746 ml Packed Cells 600 ml 1200 ml Tube Irrigant 60 ml Output Urine Total 1900 ml 97111 ml Urine/Stool Mix 3 ml Drainage Total 0 ml 942 ml # Voids 5 21 # Bowel Movements 0 18 General: Alert, Oriented X3, Cooperative, No Acute Distress Mouth: Mucous Membr Moist/[place] Neck: Supple Chest & Lungs: Clear to auscultation & percussion Cardiovascular: Regular Rate/Rhythm Abdomen: Non-tender, Distended, Other (previous site of hepatic tube opening is covered with occlusive dressing was clean and dry) Extremities: No cyanosis/clubbing/edma bilat Neurological: Grossly Neurologically Intact IVs and Medications Medications Reviewed: Medications were reviewed in detail Lab and Diagnostics Result Diagram: 01/09/1752201/09/17522 X-Rays, CTs and MRIs CT Abd / Pelvis Interpretation CONCLUSION: Heterogeneous appearing liver with a focal hypodense area noted in the liver measuring up to 14cm in size. Possible considerations include infection and tumor. Pelvic mass in the region of the uterus. While fibroid is a consideration. Other tumor would be difficult to exclude. Findings suggestion of constipation. Cardiomegaly. 5mm left lower pulmonary nodule. Radiologist: Andrea Singh MD PROCEDURE: 1. Sinogram through existing catheter. 2. Drain exchange and reposition. 3. Conscious sedation x21 minutes. IMPRESSION: Drainage catheter upsizing and repositioning as described above. Pigtail catheter is now within the superior aspect of the abscess cavity, which appears to contain viscous contents. Dictated by: Junito Cardozo M.D. 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 Bynum oncology), found to be liver abscess s/p IR drain/ertapenem for kleb/ ecoli bacteremia/abscess. Presented to the ED complaining of upper abdominal pain in achy bandlike. no associated UTIs. # Escherichia coli and klebsiella Acute liver abscess WITH BACTEREMIA , present on admission. Ongoing -Liver drain output was minimal but on repeat imaging 12/30 shows persistence of liver abscess , Underwent successful repositioning and upsizing of liver abscess drain 12/31. Now draining. Continue flushing the drain every shift - CT-guided drain placement for a hepatic abscess on 12/17/[address] Joel .repositioning and upsizing of liver abscess drain 12/[address] Cardozo - Ertapenem 1000 mg daily intravenously (started on 12/20/[address] Webber/KELLY bautista - at least while inpatient). CIPROFLOXACIN AND FLAGYL ROTARY FILTER OPERATOR ON DISCHARGE once the tube is pulled. Dr Webber will follow patient on 01/15/17 outpatient -Will plan to repeat CT today, given significant reduction in hepatic tube's output. -Patient had on and off fevers a few days prior. Now resolved, afebrile for past few days. Blood culture sent 01/01 no growth --no echo since not gram positive, unlikely endocarditis risk - Based on CT findings, demonstrating only a 20% reduction in abscess size, I believe the replacement of hepatic tube is indicated at this time to ensure complete resolution. The Misa seen patient already concurs with this opinion. Interventional radiology cannot conduct procedure until tomorrow earliest day regardless, we will wait the opinions of infectious disease and gastroenterology to determine ideal course of action. Her initial intermittent metabolic therapy at this time, which will remain IV while patient in hospital. - # Acute sepsis, present on admission, clinically/leucocytosis resolved. - Initial Vital signs in the ED: Temperature 37.9, pulse 115, respiratory rate 18, blood pressure 126/57, with a map of 80, pulse ox 100% on room air.White blood cell count 21.8 with 90.5% neutrophils, now resolved. # Acute left upper extremity DVT at site of PICC line. Not present on admission - PICC line removed on 12/20 - Per discussion with hematology (Dr. Travis on 12/[address] Bynum on 12/23) - treat patient with Lovenox given extent of DVT despite possible risk of bleeding FROM HER HHT. --Risks and benefits were discussed with patient on 12/20 -Oral anticoagulation hasn't been started given drain in place was required repositioning and upsizing. May consider initiating NOACs upon discharge or warfarin with Lovenox bridging after Hepatic tube is removed. # Normocytic normochromic Anemia requiring transfusions, present on admission - secondary Gastric and duodenal hereditary hemorrhagic telangiectasia - Followup daily H/H. -Hemoglobin 6.9 on 12/30, transfused 2 PRBCs 12/30. Hemoglobin is again downward trending, today below 7. Coupled with pt's increased fatigue, will proceed with transfusion of 2 unitis PRCs tpday. - Hemoglobin increased appropriately following transfusion. 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 # History of Ulcerated gastroesophageal junction, with history of upper GI bleed s/p omental patch - Stable # Cachexia, chronic, present on admission, active improving oral intake # Chronic constipation, present on admission, ongoing - Continue with stool softeners and enema # Hypothyroidism, chronic - Status post partial thyroidectomy - Continue patient's home medication Dispo: pending decision to replace hepatic tube, likely 2-3 more days. Eventually to [facility] assisted living W/ HOME [facility] VTE Prophylaxis: Sub-Q Heparin (Unfractionated) VTE Mechanical Devices: Intermittant Pneumatic CD Resuscitation Status: CPR: Attempt Resuscitation Time spent 30 minutes Pavan Rios DO January 09, 2017 13:53
--- NOTE | 2017-01-09 14:00 | PROG NOTE ---
[address] [address] PROGRESS NOTE PATIENT: STEWART UREÑA : 1935 MR#: [id number] ADMIT: 12/17/2016 JOB ID: [id number] DATE: 01/09/2017 INFECTIOUS DISEASE FOLLOW UP NOTE: REASON FOR FOLLOW UP: Massive polymicrobial bacteremic liver abscess. INTERVAL HISTORY: Overnight, the patient's liver abscess drain was accidentally removed. The patient did not experience any pain during this loss of the drain and this morning she notes little change in her symptomatology. She notes she has a little less sense of fullness in the right upper quadrant since the drain has been removed but no significant increase or change in pain in that area. She has had no fevers, no chills. No significant cough and no nausea or vomiting. PHYSICAL EXAMINATION: Reveals a woman who was febrile to 38.1 during the night. That is her first temperature in almost nine days. This morning she is 37.0, pulse 85, respiratory rate 19, blood pressure 120/61. She is in no acute distress. The patient is awake, alert. Oral cavity unremarkable. Lungs reasonably clear. Cardiac tones without change. Abdomen: Thin, soft and nontender including the right upper quadrant. The drain is missing, of course. LABORATORIES: Include white count 4200, creatinine less than 0.3. ALT and AST are normal. No recent cultures have been obtained. I reviewed carefully the new abdominal CT that was done yesterday afternoon. It showed that there has been a mild decrease in the loculated intrahepatic abscess. Despite this, the abscess is still huge and measures 13 x 12 cm. The radiologist estimates that overall the abscess is about 20% smaller though when treatment for this process started more than three weeks ago. IMPRESSION: This is an extremely difficult case of a woman with underlying hereditary hemorrhagic telangiectasia who presents now with a huge liver abscess. Despite Interventional Radiology directed drainage and broad-spectrum antibiotics for a full three weeks, she continues to have a really huge liver abscess. I have reviewed the literature this afternoon and think that open surgical drainage would actually be the favored modality of therapy for a patient with a liver abscess this large if she were more healthy. I suspect that because of the vascular abnormalities seen on the CT of the liver, which likely represents some part of her hereditary hemorrhagic telangiectasia syndrome, that General Surgery would decline to operate on this woman for good reason. The only other viable option it would seem is persistent percutaneous drainage combined with broad-spectrum antibiotics. The patient has been on ertapenem for quite some time now and this provides excellent coverage for both of our isolated organisms as well as any potential lurking anaerobes. Though there is little justification in the literature to this, I think it is reasonable to consider adding a second drug such as a quinolone, which both organisms are susceptible in hopes of speeding healing of this very large abscess. RECOMMENDATIONS: 1. Will continue with the ertapenem 1 g once a day. 2. Will add Cipro 500 p.o. b.i.d. 3. I agree that the patient needs to have her drain replaced and/or to have General Surgery evaluate though I think it is highly unlikely she would be a general surgical candidate. 4. Will continue to follow this complex patient with you. 5. Also note I discussed this case today with Dr. Rios.
--- NOTE | 2017-01-09 19:30 | NUR ---
Activity/Pain: Patient up in room and ambulating independently in hallway . Tolerating well. Complained of RUQ discomfort 3/10 on pain scale. Only one Tylenol administered per patient request. On reassessment, pain 1/10.
[2017-01-09 19:35] VITALS: BP 137/56; PULSE 82; RESP 18; O2SAT 96
[2017-01-09] MEDS: HYDROmorphone 0.5 mg/0.5 mL iSecure Syringe IVPUSH PRN (19:35)
[2017-01-10] VITALS (10 sets, daily range): BP systolic 114–137; BP diastolic 46–69; PULSE 75–91; RESP 14–20; O2SAT 93–99
[2017-01-10] MEDS: HYDROmorphone 0.5 mg/0.5 mL iSecure Syringe IVPUSH PRN ×4 (01:14→19:54)
[2017-01-10 07:17] LABS: Mean Corpuscular Volume 93.5 fL (81-100)
[2017-01-10 07:24] LABS: BASOPHILS % (AUTO) 0.8 % (0-3); EOSINOPHILS % (AUTO) 2.3 % (0-5); Mean Corpuscular Hemoglobin 29.7 pg (27.0-35.0); NEUTROPHILS % (AUTO) 66.2 % (40-74); Platelet Count 458 bil/L (150-400)
[2017-01-10 07:44] LABS: INR 1.01 ratio
[2017-01-10] MEDS: Polyethylene Glycol (PEG) 17 Gm Powder PO SCH (08:30)
[2017-01-10] MEDS: Pantoprazole 20 mg ER24 Tablet PO SCH ×2 (08:46→15:51)
--- NOTE | 2017-01-10 10:13 | NUR ---
Pain/Off Unit: Patient complained of abd pain 5/10 on pain scale. Dilaudid administered. On reassessment, patient states pain 1/10. Patient transported to CT for drain replacement @ approx 0930 via bed accompanied by transporter. No apparent distress at time of transport.
[2017-01-10] MEDS ORDERED: fentaNYL-PF 50 mCg/mL 2 mL Inj IVPUSH ONE (11:35)
--- NOTE | 2017-01-10 11:54 | DRSVH ---
PROCEDURE: 1. CT guided drainage of right hepatic lobe abscess. 2. Conscious sedation time 30 minutes. INDICATIONS: Hepatic abscess. COMPARISON: [facility], CT, CT ABD W CON, 01/08/2017, 13:58. TECHNIQUE: Informed, written consent from the patient was obtained prior to the procedure. Patient wa s brought to the angiography suite, and conscious sedation was administered intravenously by [facility] staff, while continuous cardiorespiratory monitoring was performed. Survival Specialist CT imaging of the r ight hepatic lobe abscess was performed with overlying localization grid. Maximal sterile barrier rosenda hnique, hand hygiene and skin preparation were followed. A mask, sterile gown, sterile gloves, a larg e sterile sheet, hand hygiene, and 2% chlorhexidine or iodine was utilized for skin antisepsis. The r ight flank was prepped and draped sterilely, and the skin and subcutaneous tissues overlying the righ t hepatic lobe abscess were infused with lidocaine. The right hepatic lobe abscess was accessed percu taneously under CT guidance with an 18 gauge needle, through which an 035 J-wire was advanced. Sequen tial dilators were placed, followed by advancement of an 8 [place] pigtail drainage catheter, which wa s advanced into the abscess cavity. Roughly 10 cc of purulent material were aspirated. FINDINGS: Right hepatic lobe abscess is present, as before. At the conclusion of the procedure, the pigtail of the drainage catheter is within the abscess cavity. IMPRESSION: Percutaneous pigtail drainage of right hepatic lobe abscess. Dictated by: Junito Cardozo M.D. on 01/10/2017 at 11:50 Approved by: Junito Cardozo M.D. on 01/10/2017 at 11:52
[2017-01-10] MEDS: Ertapenem Inj 1,000 MG in 0.9% Sodium Chloride 50 ML IV SCH (12:55)
--- NOTE | 2017-01-10 12:57 | PCM.PNMED ---
Subjective Date of Service January 10, 2017 Subjective Patient is lying in hospital bed, no acute distress noted during my evaluation. States there is no abdominal pain present. Denies any chest pain or shortness of breath. Again she is weaker than baseline but overall improved specialist in transfusion day prior. Denies any sweats chills or reported fevers. Appetite is good though she is nothing by mouth currently for procedure planned later today. No other acute complaints at this time Exam Vital Signs Vital Sign - Last Date Time Temp Pulse Resp B/P Pulse Ox O2 Delivery O2 Flow Rate FiO2 01/10/17 12:45 36.8 78 20 122/58 96 Room Air Intake and Output 01/09/17 01/09/17 01/10/17 Cumulative From/Thru 15:00 23:00 07:00 12/16/16 22:37 - 01/10/17 06:14 Intake Total 550 ml 200 ml 23305 ml Output Total 775 ml 800 ml 40351 ml Balance -225 ml -600 ml -3684 ml Intake Oral 550 ml 200 ml 71826 ml IV Total 11573 ml Packed Cells 1200 ml Tube Irrigant 60 ml Output Urine Total 775 ml 800 ml 65762 ml Urine/Stool Mix 3 ml Drainage Total 942 ml # Voids 21 # Bowel Movements 0 18 Exam General: Alert, Oriented X3, Cooperative, No Acute Distress Mouth: Mucous Membrane Moist/[place] Neck: Supple Chest & Lungs: Clear to auscultation & percussion Cardiovascular: Regular Rate/Rhythm Abdomen: Non-tender, Distended, Previous site of hepatic tube opening is covered with occlusive dressing was clean and dry Extremities: No cyanosis/clubbing/edema bilat Neurological: Grossly Neurologically Intact IVs and Medications Medications Reviewed: Medications were reviewed in detail Lab and Diagnostics Result Diagram: 01/10/1745 01/10/17644 X-Rays, CTs and MRIs CT Abd / Pelvis Interpretation CONCLUSION: Heterogeneous appearing liver with a focal hypodense area noted in the liver measuring up to 14cm in size. Possible considerations include infection and tumor. Pelvic mass in the region of the uterus. While fibroid is a consideration. Other tumor would be difficult to exclude. Findings suggestion of constipation. Cardiomegaly. 5mm left lower pulmonary nodule. Radiologist: Andrea Singh MD PROCEDURE: 1. Sinogram through existing catheter. 2. Drain exchange and reposition. 3. Conscious sedation x21 minutes. IMPRESSION: Drainage catheter upsizing and repositioning as described above. Pigtail catheter is now within the superior aspect of the abscess cavity, which appears to contain viscous contents. Dictated by: Junito Cardozo M.D. 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 Bynum oncology), found to be liver abscess s/p IR drain/ertapenem for kleb/ ecoli bacteremia/abscess. Presented to the ED complaining of upper abdominal pain in achy bandlike. no associated UTIs. # Escherichia coli and klebsiella Acute liver abscess WITH BACTEREMIA , present on admission. Ongoing -Liver drain output was minimal but on repeat imaging 12/30 shows persistence of liver abscess , Underwent successful repositioning and upsizing of liver abscess drain 12/31. Now draining. Continue flushing the drain every shift - CT-guided drain placement for a hepatic abscess on 12/17/[address] Joel .repositioning and upsizing of liver abscess drain 12/[address] Cardozo - Ertapenem 1000 mg daily intravenously (started on 12/20/[address] Webber/KELLY bautista - at least while inpatient), started yesterday. Plan for CIPROFLOXACIN AND FLAGYL PRINCIPAL LIBRARIAN ON DISCHARGE once the tube is pulled. Dr Webber will follow patient on 01/15/17 outpatient -Will plan to repeat CT today, given significant reduction in hepatic tube's output. -Patient had on and off fevers a few days prior. Now resolved, afebrile for past few days. Blood culture sent 01/01 no growth --no echo since not gram positive, unlikely endocarditis risk - Based on CT findings, demonstrating only a 20% reduction in abscess size, I believe the replacement of hepatic tube is indicated at this time to ensure complete resolution. This was the opinion of infectious disease and note specialist in addition as such we proceeded with this plan. - She has been ambulatory after midnight with planned hepatic tube placement later today - # Acute sepsis, present on admission, clinically/leucocytosis resolved. - Initial Vital signs in the ED: Temperature 37.9, pulse 115, respiratory rate 18, blood pressure 126/57, with a map of 80, pulse ox 100% on room air.White blood cell count 21.8 with 90.5% neutrophils, now resolved. # Acute left upper extremity DVT at site of PICC line. Not present on admission - PICC line removed on 12/20 - Per discussion with hematology (Dr. Travis on 12/[address] Bynum on 12/23) - treat patient with Lovenox given extent of DVT despite possible risk of bleeding FROM HER HHT. --Risks and benefits were discussed with patient on 12/20 -Oral anticoagulation hasn't been started given drain in place was required repositioning and upsizing. May consider initiating NOACs upon discharge or warfarin with Lovenox bridging after Hepatic tube is removed. # Normocytic normochromic Anemia requiring transfusions, present on admission - secondary Gastric and duodenal hereditary hemorrhagic telangiectasia - Followup daily H/H. -Hemoglobin 6.9 on 12/30, transfused 2 PRBCs 12/30. Hemoglobin is again downward trending, today below 7. Coupled with pt's increased fatigue, will proceed with transfusion of 2 unitis PRCs tpday. - Hemoglobin increased appropriately following transfusion. 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 # History of Ulcerated gastroesophageal junction, with history of upper GI bleed s/p omental patch - Stable # Cachexia, chronic, present on admission, active improving oral intake # Chronic constipation, present on admission, ongoing - Continue with stool softeners and enema # Hypothyroidism, chronic - Status post partial thyroidectomy - Continue patient's home medication Dispo: pending decision to replace hepatic tube, likely 2-3 more days. Eventually to [facility] assisted living W/ HOME [facility] Pain Evaluation: Adequate Pain Control VTE Prophylaxis: Sub-Q Heparin (Unfractionated) VTE Mechanical Devices: Intermittant Pneumatic CD Resuscitation Status: CPR: Attempt Resuscitation Time spent 25 minutes Pavan Rios DO January 10, 2017 12:57
--- NOTE | 2017-01-10 13:26 | NUR ---
NUTRITION FOLLOW UP: Assess: 81 YO F with liver abscess s/p drain placement. Drain was repositioned and up-sized 12/30 to allow abscess to drain more. Pt needing to go back to CT today for drain replacement today. IV antibiotics continue. PO intake remains 50-100% of meals. PMHx: Ulcerated gastroesophageal junction, Irregular gastroesophageal junction, Gastric and duodenal hereditary hemorrhagic telangiectasia, Hypothyroid, malnutrition, uterine fibroid. LABS: Reviewed. Alb 2.6, Alk phos 454. MEDICATIONS: Reviewed. DIET: General. Ensure all trays. PO intake 50-100% of meals. GI: BM x 6 (01/06) SKIN: No issues noted ANTHROPOMETRICS: Current wt: 41.8 kg (01/01). Admit Wt: (12/17) 41.5 kg (standing scale) Past Admit Wt: 38.5 kg (Bed scale) IBW: 52.3 kg. UBW (November): 54 kg. Severe wt loss noted in past, but wt appears stable with slight increase over the past 3 months. ESTIMATED NEEDS: Malnutrition Calories: 1454-5666 kcal/day (30-35 kcal/kg IBW) Protein: 65-80 g/day (1.2-1.5 g/kg IBW) NUTRITION DIAGNOSIS: 1) Severe malnutrition related to chronic illness as evidenced by variable wt, visible loss of LBM/ fat--PERSISTS 2) Inadequate oral intake related to altered GI function as evidence by early satiety, BMI of 16.2--IMPROVING. INTERVENTION: 1) Continue to send ensure on all trays. 2) Pt has received high calorie/high protein education on 09/11/16 and 11/05/16. 3) Please obtain new wt as last recorded wt is from 01/01, more than 1 week ago. MONITOR/EVALUATE: PO intake, labs, weights, nutrition status. Follow per moderate nutrition risk guidelines.
--- NOTE | 2017-01-10 13:57 | NUR ---
Social Work: Continued d/c planning Data: Pt is on day 24 of hospitalization. EMR reviewed, pt discussed in rounds. states pt likely to remain in hospital for days. [facility] completed assessment on 12/27, ELECT[employer]OVE INST[employer]ER will continue to follow and will ask if another assessment is needed prior to d/c back. Assessment: Pt from [facility]. Plan: Pt will d/c back to [facility] when medically stable with Hayley PEREZ RN/PT. [facility] completed assessment on 12/27, ELECTRIC STOVE INSTALLER will continue to follow and will ask if another assessment is needed prior to d/c back. SOHAN Kim
--- NOTE | 2017-01-10 15:50 | NUR ---
[facility] Patient to CT for abscess drain replacement. Procedure complete without complication. Denies pain. Medicated with versed 1mg and fentanyl 50 mcg. Recovery in [facility]. Prior to transfer patient C/O pain but wished to wait until transfer back to room before receiving pain medication. Transferred back to room at 1230. Report to receiving RN.
--- NOTE | 2017-01-10 15:54 | PROG NOTE ---
[address] [address] PROGRESS NOTE PATIENT: STEWART UREÑA : 1935 MR#: [id number] ADMIT: 12/17/2016 JOB ID: [id number] DATE: 01/10/2017 INFECTIOUS DISEASE FOLLOW UP NOTE: REASON FOR FOLLOWUP: Polymicrobial bacteremic liver abscess. INTERVAL HISTORY: Because of inadequate drainage and the presence of a still quite large liver abscess, the patient went back to Radiology today, and a new drain was placed. Some purulent material was aspirated and the drain was, of course, left in place. She reports that the procedure was somewhat more painful than her prior liver abscess drain placements. She has had no fevers, chills or sweats. No new cough or shortness of breath and she has now some mild right upper quadrant pain at the site of the drain. PHYSICAL EXAMINATION: Reveals an afebrile woman. Temperature 36.8, pulse 78, respiratory rate 20, blood pressure 122/58. She is saturating well on room air and in no acute distress. Examination of the oral cavity is unremarkable. The patient's mental status is normal. Lungs with reasonable breath sounds bilaterally. Cardiac tones without change. A new abdominal drain is noted in the right upper quadrant. There is minimal tenderness at the site of the drain insertion. LABORATORIES: Include a white count stable at 5200, creatinine less than 0.3. It does not appear additional cultures were sent from this new drain placement but blood cultures a week ago were negative and recall that originally we had E coli and Klebsiella both in the blood and in the hepatic abscess. The radiology note was reviewed. IMPRESSION: This patient with a very recalcitrant liver abscess after three weeks or more of antibiotics and percutaneous drainage. It was only about 26% smaller. Today, she had a new drain placed and hopefully this will serve to speed up resolution of this abscess. Recall that yesterday I added Cipro to the ertapenem in hopes of getting better penetration of the abscess and a more rapid resolution. RECOMMENDATIONS: 1. Will continue with 1 g a day of ertapenem plus Cipro 500 p.o. b.i.d. 2. Will closely follow the size of the abscess as we continue with percutaneous drainage. 3. I will see the patient again on the .
[2017-01-11] MEDS: HYDROmorphone 0.5 mg/0.5 mL iSecure Syringe IVPUSH PRN ×4 (03:10→21:07)
[2017-01-11 04:51] VITALS: BP 113/52; PULSE 83; RESP 14; O2SAT 95
[2017-01-11] MEDS: Pantoprazole 20 mg ER24 Tablet PO SCH ×2 (09:12→16:53)
[2017-01-11] MEDS: Polyethylene Glycol (PEG) 17 Gm Powder PO SCH (09:12)
--- NOTE | 2017-01-11 11:44 | PCM.PNMED ---
Subjective Date of Service January 11, 2017 Subjective No acute changes overnight. Continues to feel well but is slightly discouraged that output from hepatic tube is below. Energy level is good strength is good. Appetite excellent. Acute complaints at this time. Exam Vital Signs Vital Sign - Last Date Time Temp Pulse Resp B/P Pulse Ox O2 Delivery O2 Flow Rate FiO2 01/11/17 04:51 37.2 83 14 113/52 95 Room Air Intake and Output 01/10/17 01/10/17 01/11/17 Cumulative From/Thru 15:00 23:00 07:00 12/16/16 22:37 - 01/11/17 05:55 Intake Total 472 ml 100 ml 60263 ml Output Total 850 ml 170 ml 69572 ml Balance -378 ml -70 ml -4132 ml Intake Oral 472 ml 100 ml 24453 ml IV Total 37120 ml Packed Cells 1200 ml Tube Irrigant 60 ml Output Urine Total 800 ml 150 ml 60099 ml Urine/Stool Mix 3 ml Emesis 50 ml 50 ml Drainage Total 20 ml 962 ml # Voids 21 # Bowel Movements 0 18 Exam General: Alert, Oriented X3, Cooperative, No Acute Distress Mouth: Mucous Membrane Moist/[place] Neck: Supple Chest & Lungs: Clear to auscultation & percussion Cardiovascular: Regular Rate/Rhythm Abdomen: Non-tender, mildly Distended, hepatic tube in place on right side of abdomen with clean dry dressing covering. Draining light brown to yellowish fluid. Extremities: No cyanosis/clubbing/edema bilat Neurological: Grossly Neurologically Intact IVs and Medications Medications Reviewed: Medications were reviewed in detail Lab and Diagnostics Result Diagram: 01/10/1745 01/10/17 0645 X-Rays, CTs and MRIs CT Abd / Pelvis Interpretation CONCLUSION: Heterogeneous appearing liver with a focal hypodense area noted in the liver measuring up to 14cm in size. Possible considerations include infection and tumor. Pelvic mass in the region of the uterus. While fibroid is a consideration. Other tumor would be difficult to exclude. Findings suggestion of constipation. Cardiomegaly. 5mm left lower pulmonary nodule. Radiologist: Andrea Singh MD PROCEDURE: 1. Sinogram through existing catheter. 2. Drain exchange and reposition. 3. Conscious sedation x21 minutes. IMPRESSION: Drainage catheter upsizing and repositioning as described above. Pigtail catheter is now within the superior aspect of the abscess cavity, which appears to contain viscous contents. Dictated by: Junito Cardozo M.D. 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 Bynum oncology), found to be liver abscess s/p IR drain/ertapenem for kleb/ ecoli bacteremia/abscess. Presented to the ED complaining of upper abdominal pain in achy bandlike. no associated UTIs. # Escherichia coli and klebsiella Acute liver abscess WITH BACTEREMIA , present on admission. Ongoing -Liver drain output was minimal but on repeat imaging 12/30 shows persistence of liver abscess , Underwent successful repositioning and upsizing of liver abscess drain 12/31. Now draining. Continue flushing the drain every shift - CT-guided drain placement for a hepatic abscess on 12/17/[address] Joel .repositioning and upsizing of liver abscess drain 12/[address] Cardozo - Ertapenem 1000 mg daily intravenously (started on 12/20/[address] Webber/ID recs - at least while inpatient), started yesterday. Plan for CIPROFLOXACIN AND FLAGYL BOND MANAGER ON DISCHARGE once the tube is pulled. Dr Webber will follow patient on 01/15/17 outpatient -Will plan to repeat CT today, given significant reduction in hepatic tube's output. -Patient had on and off fevers a few days prior. Now resolved, afebrile for past few days. Blood culture sent 01/01 no growth --no echo since not gram positive, unlikely endocarditis risk - Based on CT findings, demonstrating only a 20% reduction in abscess size, I believe the replacement of hepatic tube is indicated at this time to ensure complete resolution. This was the opinion of infectious disease and camp recreation specialist in addition as such we proceeded with this plan. - PEG tube now replaced, drainage has been suboptimal considering size of abscess recently assessed on CT. Consider repositioning if output continues to be poor overnight. - # Acute sepsis, present on admission, clinically/leucocytosis resolved. - Initial Vital signs in the ED: Temperature 37.9, pulse 115, respiratory rate 18, blood pressure 126/57, with a map of 80, pulse ox 100% on room air.White blood cell count 21.8 with 90.5% neutrophils, now resolved. # Acute left upper extremity DVT at site of PICC line. Not present on admission - PICC line removed on 12/20 - Per discussion with hematology (Dr. Travis on 12/[address] Bynum on 12/23) - treat patient with Lovenox given extent of DVT despite possible risk of bleeding FROM HER HHT. --Risks and benefits were discussed with patient on 12/20 -Oral anticoagulation hasn't been started given drain in place was required repositioning and upsizing. May consider initiating NOACs upon discharge or warfarin with Lovenox bridging after Hepatic tube is removed. # Normocytic normochromic Anemia requiring transfusions, present on admission - secondary Gastric and duodenal hereditary hemorrhagic telangiectasia - Followup daily H/H. -Hemoglobin 6.9 on 12/30, transfused 2 PRBCs 12/30. Hemoglobin is again downward trending, today below 7. Coupled with pt's increased fatigue, will proceed with transfusion of 2 unitis PRCs tpday. - Hemoglobin increased appropriately following transfusion. 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 # History of Ulcerated gastroesophageal junction, with history of upper GI bleed s/p omental patch - Stable # Cachexia, chronic, present on admission, active improving oral intake # Chronic constipation, present on admission, ongoing - Continue with stool softeners and enema # Hypothyroidism, chronic - Status post partial thyroidectomy - Continue patient's home medication Dispo: pending decision to replace hepatic tube, likely 2-3 more days. Eventually to [facility] W/ HOME [facility] Pain Evaluation: Adequate Pain Control VTE Prophylaxis: Sub-Q Heparin (Unfractionated) VTE Mechanical Devices: Intermittant Pneumatic CD Resuscitation Status: CPR: Attempt Resuscitation Time spent 25 minutes Pavan Rios DO January 11, 2017 11:44
--- NOTE | 2017-01-11 11:47 | NUR ---
[facility] signed
[2017-01-11 13:03] VITALS: BP 118/58; PULSE 74; RESP 17; O2SAT 93
[2017-01-11] MEDS: Ertapenem Inj 1,000 MG in 0.9% Sodium Chloride 50 ML IV SCH (13:14)
--- NOTE | 2017-01-11 13:30 | NUR ---
Pain Pt reports pain 6-7/10 at drainage site, requesting Iv pain medication. IV Dilaudid given as requested. Pt reports good pain relief. Call light with in reach, will continue to monitor.
[2017-01-11 21:18] VITALS: BP 125/68; PULSE 89; RESP 18; O2SAT 98
[2017-01-12] MEDS: HYDROmorphone 0.5 mg/0.5 mL iSecure Syringe IVPUSH PRN ×3 (02:05→20:17)
[2017-01-12 06:08] VITALS: BP 106/63; PULSE 84; RESP 17; O2SAT 93
[2017-01-12] MEDS: Polyethylene Glycol (PEG) 17 Gm Powder PO SCH (08:17)
[2017-01-12] MEDS: Pantoprazole 20 mg ER24 Tablet PO SCH ×2 (08:17→17:15)
--- NOTE | 2017-01-12 08:50 | PCM.PNMED ---
Subjective Date of Service January 12, 2017 Subjective Overall well, but some abdominal pain around the site of hepatic drain, more internal. She notes this had not been the case in the other 2 drains placed previously. She denies fever/chlils/sweat however. Appetite is ok but perhaps a little less than 1 day previous. No nausea/vomiting. NO other acute complaints. Exam Vital Signs Vital Sign - Last Date Time Temp Pulse Resp B/P Pulse Ox O2 Delivery O2 Flow Rate FiO2 01/12/17 06:08 37.3 84 17 106/63 93 Room Air Intake and Output 01/11/17 01/11/17 01/12/17 Cumulative From/Thru 14:59 22:59 06:59 12/16/16 22:37 - 01/12/17 06:08 Intake Total 736 ml 100 ml 29160 ml Output Total 1100 ml 500 ml 21665 ml Balance -364 ml -400 ml -4896 ml Intake Oral 636 ml 100 ml 67299 ml IV Total 100 ml 72135 ml Packed Cells 1200 ml Tube Irrigant 60 ml Output Urine Total 1100 ml 500 ml 81272 ml Urine/Stool Mix 3 ml Emesis 50 ml Drainage Total 0 ml 962 ml # Voids 21 # Bowel Movements 0 18 Exam General: Alert, Oriented X3, Cooperative, No Acute Distress Mouth: Mucous Membrane Moist/[place] Neck: Supple Chest & Lungs: Clear to auscultation & percussion Cardiovascular: Regular Rate/Rhythm Abdomen: Non-tender, mildly Distended, hepatic tube in place on right side of abdomen with clean dry dressing covering. More tender with palpation on right side, though no overt abscess/mass palpable. Draining light brown to yellowish fluid. Extremities: No cyanosis/clubbing/edema bilat Neurological: Grossly Neurologically Intact IVs and Medications Medications Reviewed: Medications were reviewed in detail Lab and Diagnostics Result Diagram: 01/10/1764401/10/17644 X-Rays, CTs and MRIs CT Abd / Pelvis Interpretation CONCLUSION: Heterogeneous appearing liver with a focal hypodense area noted in the liver measuring up to 14cm in size. Possible considerations include infection and tumor. Pelvic mass in the region of the uterus. While fibroid is a consideration. Other tumor would be difficult to exclude. Findings suggestion of constipation. Cardiomegaly. 5mm left lower pulmonary nodule. Radiologist: Andrea Singh MD PROCEDURE: 1. Sinogram through existing catheter. 2. Drain exchange and reposition. 3. Conscious sedation x21 minutes. IMPRESSION: Drainage catheter upsizing and repositioning as described above. Pigtail catheter is now within the superior aspect of the abscess cavity, which appears to contain viscous contents. Dictated by: Junito Cardozo M.D. 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 Bynum oncology), found to be liver abscess s/p IR drain/ertapenem for kleb/ ecoli bacteremia/abscess. Presented to the ED complaining of upper abdominal pain in achy bandlike. no associated UTIs. # Escherichia coli and klebsiella Acute liver abscess WITH BACTEREMIA , present on admission. Ongoing -Liver drain output was minimal but on repeat imaging 12/30 shows persistence of liver abscess , Underwent successful repositioning and upsizing of liver abscess drain 12/31. Now draining. Continue flushing the drain every shift - CT-guided drain placement for a hepatic abscess on 12/17/[address] Joel .repositioning and upsizing of liver abscess drain 12/[address] Cardozo - Ertapenem 1000 mg daily intravenously (started on 12/20/[address] Webber/KELLY bautista - at least while inpatient), started yesterday. Plan for CIPROFLOXACIN AND FLAGYL CANCELLATION CLERK ON DISCHARGE once the tube is pulled. Dr Webber will follow patient on 01/15/17 outpatient -Will plan to repeat CT today, given significant reduction in hepatic tube's output. -Patient had on and off fevers a few days prior. Now resolved, afebrile for past few days. Blood culture sent 01/01 no growth --no echo since not gram positive, unlikely endocarditis risk - Based on CT findings, demonstrating only a 20% reduction in abscess size, I believe the replacement of hepatic tube is indicated at this time to ensure complete resolution. This was the opinion of infectious disease and piercing specialist in addition as such we proceeded with this plan. - PEG tube now replaced, drainage has been suboptimal considering size of abscess recently assessed on CT. Continued poor output overnight with worsening tenderness/pain in this area - Plan to repeat CT to assess for possible hemtoma related to placement and confirm location of tube related to abscess given poor output. - Pt remains poor condidate for suregry, but this may be revisited by entire treating team tomorrow, including PT's own GI physician, Dr Sam. - # Acute sepsis, present on admission, clinically/leucocytosis resolved. - Initial Vital signs in the ED: Temperature 37.9, pulse 115, respiratory rate 18, blood pressure 126/57, with a map of 80, pulse ox 100% on room air.White blood cell count 21.8 with 90.5% neutrophils, now resolved. # Acute left upper extremity DVT at site of PICC line. Not present on admission - PICC line removed on 12/20 - Per discussion with hematology (Dr. Travis on 12/[address] Bynum on 12/23) - treat patient with Lovenox given extent of DVT despite possible risk of bleeding FROM HER HHT. --Risks and benefits were discussed with patient on 12/20 -Oral anticoagulation hasn't been started given drain in place was required repositioning and upsizing. May consider initiating NOACs upon discharge or warfarin with Lovenox bridging after Hepatic tube is removed. # Normocytic normochromic Anemia requiring transfusions, present on admission - secondary Gastric and duodenal hereditary hemorrhagic telangiectasia - Followup daily H/H. -Hemoglobin 6.9 on 12/30, transfused 2 PRBCs 12/30. Hemoglobin is again downward trending, today below 7. Coupled with pt's increased fatigue, will proceed with transfusion of 2 unitis PRCs tpday. - Hemoglobin increased appropriately following transfusion. 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 # History of Ulcerated gastroesophageal junction, with history of upper GI bleed s/p omental patch - Stable # Cachexia, chronic, present on admission, active improving oral intake # Chronic constipation, present on admission, ongoing - Continue with stool softeners and enema # Hypothyroidism, chronic - Status post partial thyroidectomy - Continue patient's home medication Dispo:Likely at least 2-3 more days. Eventually to [facility] assisted [facility] W / HOME [facility] Pain Evaluation: Adequate Pain Control VTE Prophylaxis: Sub-Q Heparin (Unfractionated) VTE Mechanical Devices: Intermittant Pneumatic CD Resuscitation Status: CPR: Attempt Resuscitation Time spent 30 minutes Pavan Rios DO January 12, 2017 08:50
--- NOTE | 2017-01-12 10:16 | DRSVH ---
PROCEDURE: CT ABDOMEN AND PELVIS WITH CONTRAST ([id number]) INDICATIONS: Abdominal pain s/p hep drain plcmt for abscess TECHNIQUE: After the administration of oral and intravenous contrast, 5 mm thick sections acquired from the diap hragms to the symphysis. 5 mm thick coronal and sagittal reformats were performed. For radiation do se reduction, the following was used: automated exposure control, adjustment of mA and/or kV accordi ng to patient size. COMPARISON: [facility], XA, ABSC DRAIN CHANGE FLUOR (PNL), 12/31/2016, 11:20. [facility], CT, CT ABD PELVIS W CON, 12/23/2016, 15:07. [facility], CT, CT ABCESS DRAIN ORGAN, 01/10/2017, 9:40. [facility], CT, CT ABD W CON, 01/08/2017, 13:58. FINDINGS: Image quality: Excellent. ABDOMEN: Lung bases: Small bilateral pleural effusions are present, as before. Bibasilar atelectasis is unchan ged. Solid organs: Heterogeneous hyperenhancement throughout the hepatic parenchyma is present, as before, with multiple portosystemic shunts, as before. There is a multiloculated abscess within the right he patic lobe, as before, which demonstrates a new drainage catheter within its inferior aspect. The inf erior loculation containing the drainage catheter has decreased in size, currently measuring 23 mm. T he more superior loculation has increased slightly in size, currently measuring 54 mm diameter.. Gal lbladder is decompressed. Biliary system is non-dilated. Pancreas enhances normally. No adrenal no dules. Kidneys are normal in size and enhancement, without hydronephrosis. Peritoneum and bowel: Stomach, small bowel, and colon loops are normal in caliber and wall thickness . No free fluid or air. Nodes and vessels: No retroperitoneal or mesenteric adenopathy. Aorta and inferior vena cava are no rmal in caliber. Miscellaneous: No ventral hernias. PELVIS: Genitourinary: Bladder wall thickness is normal. Large calcified uterine mass measuring 94 mm is un changed. Miscellaneous: No inguinal hernias or adenopathy. Bones: No suspicious bony lesions. Moderate rightward curvature of the upper lumbar spine and moder ate leftward curvature of the lower lumbar spine. No vertebral body compression fractures. IMPRESSION: 1. Multiloculated hepatic abscess. The inferior loculation containing the drainage catheter has decre ased in size. The more superior loculations have increased in size. Repeat drainage catheter repositi oning under fluoroscopic guidance in cathlab is recommended (as was done on 12.31.16). 2. Small bilateral pleural effusions. 3. No change in large uterine fibroid. 4. No change in heterogeneous hepatic enhancement, suggestive of hepatitis, and intrahepatic portosys temic shunts. Dictated by: Junito Cardozo M.D. on 01/12/2017 at 10:08 Approved by: Junito Cardozo M.D. on 01/12/2017 at 10:14
[2017-01-12] MEDS: Ertapenem Inj 1,000 MG in 0.9% Sodium Chloride 50 ML IV SCH (12:51)
[2017-01-12 13:52] VITALS: BP 107/55; PULSE 83; RESP 16; O2SAT 94
--- NOTE | 2017-01-12 18:24 | NUR ---
Constipation Pt has not had a bowel movement today, declined scheduled Miralax this AM due to nausea. Prune juice offered and accepted. Enema offered, pt declined. This RN educated pt of the importance of regular bowel movements. Pt verbalized understanding, reports will consider options. Call light with in reach, will continue to monitor.
[2017-01-12 21:34] VITALS: BP 117/66; PULSE 88; RESP 17; O2SAT 95
[2017-01-13] MEDS: HYDROmorphone 0.5 mg/0.5 mL iSecure Syringe IVPUSH PRN ×3 (00:20→19:52)
[2017-01-13 05:13] VITALS: BP 116/63; PULSE 81; RESP 17; O2SAT 97
[2017-01-13 06:51] LABS: BASOPHILS % (AUTO) 0.8 % (0-3); EOSINOPHILS % (AUTO) 2.6 % (0-5); MONOCYTES % (AUTO) 15.2 % (4-12); Mean Corpuscular Hemoglobin 29.5 pg (27.0-35.0); Mean Corpuscular Volume 96.6 fL (81-100); NEUTROPHILS % (AUTO) 61.2 % (40-74); Platelet Count 454 bil/L (150-400)
[2017-01-13] MEDS: Polyethylene Glycol (PEG) 17 Gm Powder PO SCH (08:30)
[2017-01-13] MEDS: Pantoprazole 20 mg ER24 Tablet PO SCH ×2 (09:03→17:35)
--- NOTE | 2017-01-13 09:11 | PROG NOTE ---
[address] [address] PROGRESS NOTE PATIENT: STEWART UREÑA : 1935 MR#: [id number] ADMIT: 12/17/2016 JOB ID: [id number] DATE: 01/13/2017 SUBJECTIVE: The patient is an 81-year-old woman with hereditary hemorrhagic telangiectasia. She was hospitalized with a right liver abscess. After the percutaneous drain fell out of her abdomen about 4 days ago, she underwent a procedure with Interventional Radiology to replace her drain. The pigtail catheter was seen within the superior aspect of the abscess cavity on imaging. CT of the abdomen and pelvis with contrast yesterday done to evaluate increased abdominal pain shows a multiloculated hepatic abscess. The superior loculations have increased in size. The inferior loculations have decreased in size. There was incidental note of small bilateral pleural effusions. She has been afebrile since January 08, 2017. She remains on antibiotic coverage with Cipro 500 mg by mouth twice daily and ertapenem 1000 mg IV daily. She is resting comfortably this morning. OBJECTIVE: Vitals: T 36.6, P 81, R 17, BP 116/63, O2 saturation 97% on room air. HEENT: Conjunctivae slightly pale. Mucous membranes dry. Chest: Few basilar crackles. Cardiac exam regular rate and rhythm. Abdomen soft, mild tenderness. Percutaneous drain intact. Extremities muscular wasting, 2+ distal pulses. LABORATORIES: WBC 5.0, hemoglobin 7.8, hematocrit 25.5%, platelets 454,000. BUN 8, creatinine less than 0.3. Glucose 88. ASSESSMENT AND PLAN: 1. Hereditary hemorrhagic telangiectasia: Stable. No definite indication for transfusion support at this time. Continue to monitor. 2. Right liver abscess: The previous cultures of her abscess were positive for both Escherechia coli and Klebsiella. She remains on broad-spectrum antibiotic coverage. Currently with IV ertapenem and oral ciprofloxacin. She has a new percutaneous drainage tube in the abscess cavity, with imaging from yesterday showing worsening loculation in the superior aspect, but decreasing loculation in the inferior aspect where her drainage catheter is situated.
[2017-01-13] MEDS: Ertapenem Inj 1,000 MG in 0.9% Sodium Chloride 50 ML IV SCH (13:20)
[2017-01-13] MEDS: Sodium Biphos-Phos 133 mL Enema RECTAL PRN (13:21)
--- NOTE | 2017-01-13 13:30 | NUR ---
Constipation Pt declined Miralax, has been NPO since midnight in anticipation of procedure in bottle labeler. Enema administered at pts request. Bowels moved. Pt reports relief with abd pressure. Call light with in reach, will continue to monitor.
[2017-01-13] MEDS ORDERED: Bupivacaine-MPF 0.5% 30 mL Inj IV ONE (13:53)
[2017-01-13 14:07] VITALS: BP 127/60; PULSE 80; RESP 18; O2SAT 96
--- NOTE | 2017-01-13 14:19 | NUR ---
Faxed referral to [facility] per [facility] case management rounds Updated INTERIOR DESIGN PROJECT MANAGER
--- NOTE | 2017-01-13 14:21 | NUR ---
Off the unit Pt off the unit to coreroom foundry laborer for drain adjustment. VSS, no complains of increased pain, pt voided prior. Report to be called to Melanie in [facility]. Addendum: 01/13/17 at 1552 by IRINA HICKEY RN Pt returned to unit following replacement and advancement of drain. Reports pain 6/10 at drain site, 650 PO Tylenol given as requested, Will continue to monitor,
[2017-01-13] MEDS ORDERED: fentaNYL-PF 50 mCg/mL 2 mL Inj IVPUSH ONE (14:55)
[2017-01-13 15:06] VITALS: BP 126/48; PULSE 94; RESP 16; O2SAT 96
--- NOTE | 2017-01-13 15:11 | DRSVH ---
PROCEDURE: 1. Abscess drain change. 2. Sinogram. 3. Drain upsize. 4. Conscious sedation x33 minutes. INDICATIONS: Hepatic abscess. COMPARISON: [facility], CT, CT ABD PEL[facility] W CON[facility] (PNL), 12/31/2016, 11:20. TECHNIQUE: Informed, written consent from the patient was obtained prior to the procedure. Patient wa s brought to the angiography suite, and conscious sedation was administered intravenously by long term staff, while continuous cardiorespiratory monitoring was performed. Maximal sterile barrier t echnique, hand hygiene, skin preparation, and sterile ultrasound technique (if ultrasound was utilize d) was followed. A mask, sterile gown, sterile gloves, a large sterile sheet, hand hygiene, and 2% ch lorhexidine or iodine was utilized for skin antisepsis. The right flank drain was prepped and draped sterilely, and the skin and subcutaneous tissues surrounding the drain were infused with Marcaine. Co ntrast was injected into the drain, which was removed over a Glidewire. A 4 [place]an nontapered angled catheter was used to direct the wire into the superior loculations of the abscess cavity. A 10 [place]an drainage catheter was then advanced over the wire and positioned within the superior loculations of the fluid collection. Roughly 40 cc of purulent material were aspirated. FLUOROSCOPY TIME: 2 minutes FINDINGS: Following catheter repositioning, the pigtail is within the superior loculation of the flu id collection. IMPRESSION: Hepatic abscess drain repositioning and upsizing, as described above. Dictated by: Junito Cardozo M.D. on 01/13/2017 at 15:07 Approved by: Junito Cardozo M.D. on 01/13/2017 at 15:10
[2017-01-13 15:15] VITALS: BP 119/54; PULSE 91; RESP 16; O2SAT 97
[2017-01-13 15:28] VITALS: BP 124/50; PULSE 87; RESP 16; O2SAT 97
--- NOTE | 2017-01-13 16:01 | NUR ---
Social Work: Continued d/c planning Data: Pt is on day 27 of hospitalization for hepatis abscess mass. EMR reviewed, pt discussed in rounds. states pt lis having drain placed today, is likely to be here 1-2 more days. days. [facility] completed assessment on 12/27,and another assessment is not needed. Pt to discharge back to [place] when medically stable with Hayley PEREZ RN/PT. SW will continue to follow Assessment: Pt from [facility]. Plan: Pt will d/c back to [facility] when medically stable with Hayley PEREZ RN/PT. [facility] completed assessment on 12/27. SW will continue to follow. SOHAN Russell
--- NOTE | 2017-01-13 18:53 | PROG NOTE ---
[address] [address] PROGRESS NOTE PATIENT: STEWART UREÑA : 1935 MR#: [id number] ADMIT: 12/17/2016 JOB ID: [id number] DATE: 01/13/2017 REASON FOR FOLLOWUP: Polymicrobial bacteremic liver abscess. INTERVAL HISTORY: Recall that late last week the patient's liver abscess drain was reinserted with some increase in drainage but not a significant amount apparently, as additional imaging has shown that though the inferior portion of the abscess looked better, the superior portion, if anything, looked bigger. This led to further repositioning of the new drain which was accomplished this afternoon. The patient just returned from that drainage procedure. The patient has no new fevers, chills or sweats. She has chronic mild pain in the right upper quadrant which was worse with the most recent drain. The patient has no fevers, chills or sweats today. PHYSICAL EXAMINATION: Reveals an afebrile woman, temp 36.8, pulse 87, respiratory rate 16, blood pressure 124/50, she is saturating well on room air. The patient looks weak, tired and emaciated. Eyes without scleral icterus. Oral cavity unremarkable. Lungs fairly clear. Cardiac tones: Without new murmur. New drain is present in the right upper quadrant with scant bloody drainage. Abdomen is essentially nontender. LABORATORIES: Include a white count of 5000. No new cultures are available at this time. IMPRESSION: The patient with a very persistent right upper quadrant abscess despite multiple drainage attempts. She would appear to be on optimal antibiotics at this time including Cipro and ertapenem for synergistic coverage of her isolated organisms as well as anaerobes but continues to have very slow progress. RECOMMENDATIONS: 1. Will continue with the dual antibiotics. 2. We await to see what progress we have with the new drain. 3. The patient is inquiring as to whether transfer or consultation with one of the [facility] might be useful given the difficulties with resolving her liver abscess, and I would defer this question to the hospitalist and GI instructional design consultant. 4. I still wonder if the patient will ultimately require open drainage but, as before, I am concerned, of course, that she would not be able the tolerate this and this question will also be deferred to the GI consultants and the surgical team.
--- NOTE | 2017-01-13 20:06 | PCM.PNMED ---
Subjective Date of Service January 13, 2017 Subjective Patient was seen and examined at bedside today. Patient denies any chest pain, shortness of breath, nausea, vomiting, diarrhea. Patient complains of abdominal pain Overnight events: None Exam Vital Signs Vital Sign - Last Date Time Temp Pulse Resp B/P Pulse Ox O2 Delivery O2 Flow Rate FiO2 01/13/17 15:28 87 16 124/50 97 Room Air 01/13/17 14:07 36.8 Intake and Output 01/12/17 01/12/17 01/13/17 Cumulative From/Thru 15:00 23:00 07:00 12/16/16 22:37 - 01/13/17 05:13 Intake Total 775 ml 420 ml 28137 ml Output Total 320 ml 1000 ml 35741 ml Balance 455 ml -580 ml -5021 ml Intake Oral 670 ml 420 ml 72037 ml IV Total 105 ml 21528 ml Packed Cells 1200 ml Tube Irrigant 60 ml Output Urine Total 300 ml 1000 ml 12838 ml Urine/Stool Mix 3 ml Emesis 50 ml Drainage Total 20 ml 982 ml # Voids 4 25 # Bowel Movements 18 Exam Physical Exam: GEN: Patient was awake, alert, responding appropriately to questions HEENT: Pupils equal round and reactive to light, extraocular eye muscles intact , Neck soft supple, trachea midline, nomocephalic/atraumatic CV: +S1/S2, regular rate and rhythm, systolic murmurs auscultated Respiratory: CTAB, no wheezes, rales, rhonchi GI: +bowel sounds x4, soft, compressible, tender to palpation EXT: no clubbing, cyanosis, edema Neuro: Cranial nerves II-XII grossly intact Psych: mood and affect were appropriate IVs and Medications Medications Reviewed: Medications were reviewed in detail Lab and Diagnostics Result Diagram: 01/13/17 0600 01/13/17 0600 X-Rays, CTs and MRIs CT Abd / Pelvis Interpretation CONCLUSION: Heterogeneous appearing liver with a focal hypodense area noted in the liver measuring up to 14cm in size. Possible considerations include infection and tumor. Pelvic mass in the region of the uterus. While fibroid is a consideration. Other tumor would be difficult to exclude. Findings suggestion of constipation. Cardiomegaly. 5mm left lower pulmonary nodule. Radiologist: Andrea Singh MD PROCEDURE: 1. Sinogram through existing catheter. 2. Drain exchange and reposition. 3. Conscious sedation x21 minutes. IMPRESSION: Drainage catheter upsizing and repositioning as described above. Pigtail catheter is now within the superior aspect of the abscess cavity, which appears to contain viscous contents. Dictated by: Junito Cardozo M.D. 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 Bynum oncology), found to be liver abscess s/p IR drain/ertapenem for kleb/ ecoli bacteremia/abscess. Presented to the ED complaining of upper abdominal pain in achy bandlike. no associated UTIs. Escherichia coli and klebsiella Acute liver abscess WITH BACTEREMIA , present on admission. Ongoing -Liver drain output was minimal but on repeat imaging 12/30 shows persistence of liver abscess , Underwent successful repositioning and upsizing of liver abscess drain 12/31. Now draining. Continue flushing the drain every shift - CT-guided drain placement for a hepatic abscess on 12/17/[address] Joel .repositioning and upsizing of liver abscess drain 12/[address] Cardozo - Ertapenem 1000 mg daily intravenously (started on 12/20/[address] Webber/KELLY recshiva - at least while inpatient), started yesterday. Plan for CIPROFLOXACIN AND FLAGYL SNF ON DISCHARGE once the tube is pulled. Dr Webber will follow patient on 01/15/17 outpatient -Patient had on and off fevers a few days prior. Now resolved, afebrile for past few days. Blood culture sent 01/01 no growth -no echo since not gram positive, unlikely endocarditis risk - Based on CT findings, demonstrating only a 20% reduction in abscess size, I believe the replacement of hepatic tube is indicated at this time to ensure complete resolution. This was the opinion of infectious disease and safety specialist in addition as such we proceeded with this plan. - PEG tube now replaced, drainage has been suboptimal considering size of abscess recently assessed on CT. Continued poor output overnight with worsening tenderness/pain in this area - Plan to repeat CT to assess for possible hemtoma related to placement and confirm location of tube related to abscess given poor output. - Pt remains poor condidate for suregry, but this may be revisited by entire treating team tomorrow, including PT's own GI physician, Dr Sam. - Replacement of liver drainage tube scheduled for later today Acute sepsis, present on admission, clinically/leucocytosis resolved. - Initial Vital signs in the ED: Temperature 37.9, pulse 115, respiratory rate 18, blood pressure 126/57, with a map of 80, pulse ox 100% on room air.White blood cell count 21.8 with 90.5% neutrophils, now resolved. Acute left upper extremity DVT at site of PICC line. Not present on admission - PICC line removed on 12/20 - Per discussion with hematology (Dr. Travis on 12/[address] Bynum on 12/23) - treat patient with Lovenox given extent of DVT despite possible risk of bleeding FROM HER HHT. -Risks and benefits were discussed with patient on 12/20 -Oral anticoagulation hasn't been started given drain in place was required repositioning and upsizing. May consider initiating NOACs upon discharge or warfarin with Lovenox bridging after Hepatic tube is removed. Normocytic normochromic Anemia requiring transfusions, present on admission - Secondary Gastric and duodenal hereditary hemorrhagic telangiectasia - Followup daily H/H. - Hemoglobin 6.9 on 12/30, transfused 2 PRBCs 12/30. Hemoglobin is again downward trending, today below 7. Coupled with pt's increased fatigue, will proceed with transfusion of 2 unitis PRCs tpday. 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 History of Ulcerated gastroesophageal junction, with history of upper GI bleed s /p omental patch - Stable Cachexia, chronic, present on admission, active -Continue to encourage oral intake Chronic constipation, present on admission, ongoing - Continue with stool softeners and enema Hypothyroidism, chronic - Status post partial thyroidectomy - Continue patient's home medication Dispo: Patient went for her interventional radiology procedure today. We will continue to follow with the patient. Likely at least 2-3 more days. Eventually to a [facility] facility at discharge. VTE Prophylaxis: Sub-Q Heparin (Unfractionated) VTE Mechanical Devices: Intermittant Pneumatic CD Resuscitation Status: CPR: Attempt Resuscitation Nano Araujo DO January 13, 2017 20:06
[2017-01-14] MEDS: HYDROmorphone 0.5 mg/0.5 mL iSecure Syringe IVPUSH PRN ×3 (02:13→20:18)
[2017-01-14] MEDS ORDERED: Alum-Mag Hydrox-Simeth 30 mL Suspension PO PRN (04:25)
--- NOTE | 2017-01-14 04:38 | NUR ---
PAIN Pt has c/o pain in right side/abdomen associated w/ activity. Pt has requested prn IV dilaudid x 2 doses during the shift, for pain rating of "5". Pt observed to be sleeping at post-assessments. Pt also states that pain medication has been effective. Continue to monitor. Call light in reach. Intentional rounding.
--- NOTE | 2017-01-14 05:30 | NUR ---
VS NOT SAVED At start of shift, RN in room w/ pt, performing assessment and flushed hepatic drain. ACCOUNT RESOLUTION ANALYST also in room, obtaining VS. VSS, WNL at this time. Later in shift, RN realized that VS were not documented, informed ACCOUNT RESOLUTION ANALYST. VS were documented at time of/soon after, but were not saved.
[2017-01-14 05:49] VITALS: BP 133/68; PULSE 83; RESP 16; O2SAT 95
[2017-01-14 06:55] LABS: Mean Corpuscular Hemoglobin 29.4 pg (27.0-35.0); Mean Corpuscular Volume 96.2 fL (81-100)
[2017-01-14] MEDS: Pantoprazole 20 mg ER24 Tablet PO SCH ×2 (08:51→17:20)
[2017-01-14] MEDS: Polyethylene Glycol (PEG) 17 Gm Powder PO SCH (08:53)
--- NOTE | 2017-01-14 10:09 | NUR ---
IV IV in RFA leaked and was d/c. notified. Needing another d/t IV ABX, IV therapy called. Addendum: 01/14/17 at 1311 by ARSH ALTAMIRANO MATHEMATICS EDUCATION PROFESSOR placed 22G on posterior of RFA
[2017-01-14 10:14] VITALS: BP 120/73; PULSE 83; RESP 16; O2SAT 94
--- NOTE | 2017-01-14 12:21 | NUR ---
Social Work: Continued d/c planning Data: Pt is on day 28 of hospitalization for hepatis abscess mass. EMR reviewed, pt discussed in rounds. states that pt's abscess is still draining, she will likely be here 1-2 more days. days. Rep from [facility] met with pt at bedside to discuss possibility of transfer. Pt stated she does not want to be moved so far from her family and would prefer to go to a SNF in [facility]. SW met with pt at bedside and clarified that a SNF cannot accommodate her level of care at this point and the goal would be for her to go to [place] just until she is medically cleared to go home to [place]. Pt will discuss it with her family and SW will follow up to further discuss tomorrow. SW updated re: this conversation. [facility] completed assessment on 12/27,and another assessment is not needed. Pt to transfer to [place] vs discharge back to [place] when medically stable with Hayley PEREZ RN/PT. SW will continue to follow Assessment: Pt from [facility]. Plan: Pt to transfer to [place] vs discharge back to [place] when medically stable with Hayley PEREZ RN/PT. SW will follow-up with pt 01/15 re: decision about [place]. [facility] completed assessment on 12/27. SW will continue to follow. SOHAN Russell
[2017-01-14] MEDS: Ertapenem Inj 1,000 MG in 0.9% Sodium Chloride 50 ML IV SCH (12:55)
--- NOTE | 2017-01-14 14:40 | NUR ---
Called and left message for [facility] regarding what patient can come back to their facility with. She currently has drain for liver abscess and is needing IV ABX for length of time that will be determined. Spoke with UR RN and we would like to make multiple plans so patient can discharge as soon as ready. Updated BOBBIN STRIPPER
[2017-01-14] MEDS: Ondansetron 2 mg/mL 2 mL Inj IVPUSH PRN (17:51)
--- NOTE | 2017-01-14 18:16 | PROG NOTE ---
[address] [address] PROGRESS NOTE PATIENT: STEWART UREÑA : 1935 MR#: [id number] ADMIT: 12/17/2016 JOB ID: [id number] DATE: 01/14/2017 REASON FOR FOLLOWUP: Polymicrobial liver abscess with bacteremia secondary to Klebsiella and E. coli. INTERVAL HISTORY: The patient reports she is feeling worse the last two days. She notes sort of a general sense of being unwell in association with some loss of appetite. No nausea or vomiting per se. She has not had diarrhea. no fever and no chills. No cough. PHYSICAL EXAMINATION: Reveals an afebrile woman, temp 37.2, pulse 83, respiratory rate 16, blood pressure 120/73, saturating well on room air, 94% FiO2. Patient is awake and alert but she looks more tired overall. Oral cavity negative. Lungs relatively clear. Cardiac tones without new murmur. Abdomen with some mild right upper quadrant tenderness. The new drain is draining a considerable amount of chocolate milk colored brown liquid. No skin rash. LABORATORIES: Include white count 3900, platelet count 506,000. Creatinine 0.32. Alk phos 495. Urinalysis: No white cells. Micro is only positive for the E. coli and Klebsiella that were found in the liver abscess and the blood almost a month ago now on November 16. Followup cultures have proven to be negative. The last imaging we have was when the newest drain was placed yesterday in the upper aspect of a very large liver abscess. IMPRESSION: This is an unfortunate woman with hereditary hemorrhagic telangiectasias and chronic anemia who has a large polymicrobial bacteremic liver abscess despite essentially one month in the hospital. Her abscess remains only marginally smaller and she will undoubtedly require weeks or months of additional drainage in combination with appropriate antibiotics. She is currently receiving ertapenem intravenous plus Cipro p.o. in an attempt for some sort of synergy against these gram-negative rods, though I think that either ertapenem or Cipro plus Flagyl would be appropriate given the susceptibilities, but we are attempting to maximize her treatment at this point.
[2017-01-14 18:36] VITALS: BP 115/60; PULSE 79; RESP 16; O2SAT 96
--- NOTE | 2017-01-14 19:13 | NUR ---
Nausea/ambulation Pt c/o nausea towards end of shift and appetite. IV zofran administered. Miralax given this AM, pt refused other BM meds. Last known BM-prior shift. Drain in R mid-abd draining, slowly. Pt ambulated around unit 2x. Requiring medications after second ambulation.
[2017-01-14 20:12] VITALS: BP 111/57; PULSE 78; RESP 16; O2SAT 95
--- NOTE | 2017-01-14 20:52 | PCM.PNMED ---
Subjective Date of Service January 14, 2017 Subjective Patient was seen and examined at bedside today. Patient denies any chest pain, shortness of breath, nausea, vomiting, diarrhea. Overnight events: None Exam Vital Signs Vital Sign - Last Date Time Temp Pulse Resp B/P Pulse Ox O2 Delivery O2 Flow Rate FiO2 01/14/17 20:12 37.4 78 16 111/57 95 Room Air Intake and Output 01/13/17 01/13/17 01/14/17 Cumulative From/Thru 15:00 23:00 07:00 12/16/16 22:37 - 01/14/17 05:44 Intake Total 210 ml 10 ml 43828 ml Output Total 500 ml 20 ml 06747 ml Balance -290 ml -10 ml -5321 ml Intake Oral 200 ml 64606 ml IV Total 93317 ml Packed Cells 1200 ml Tube Irrigant 10 ml 10 ml 80 ml Output Urine Total 500 ml 32610 ml Urine/Stool Mix 3 ml Emesis 50 ml Drainage Total 20 ml 1002 ml # Voids 25 # Bowel Movements 1 19 Exam Physical Exam: GEN: Patient was awake, alert, responding appropriately to questions, cachectic HEENT: Pupils equal round and reactive to light, extraocular eye muscles intact , Neck soft supple, trachea midline, nomocephalic/atraumatic CV: +S1/S2, regular rate and rhythm, no murmurs auscultated Respiratory: CTAB, no wheezes, rales, rhonchi GI: +bowel sounds x4, soft, compressible, nontender to palpation, right-sided drain in place currently draining, no signs of erythema or edema EXT: no clubbing, cyanosis, edema Neuro: Cranial nerves II-XII grossly intact Psych: mood and affect were appropriate IVs and Medications Medications Reviewed: Medications were reviewed in detail Lab and Diagnostics Result Diagram: 01/14/17 0640 01/14/17 0640 X-Rays, CTs and MRIs CT Abd / Pelvis Interpretation CONCLUSION: Heterogeneous appearing liver with a focal hypodense area noted in the liver measuring up to 14cm in size. Possible considerations include infection and tumor. Pelvic mass in the region of the uterus. While fibroid is a consideration. Other tumor would be difficult to exclude. Findings suggestion of constipation. Cardiomegaly. 5mm left lower pulmonary nodule. Radiologist: Andrea Singh MD PROCEDURE: 1. Sinogram through existing catheter. 2. Drain exchange and reposition. 3. Conscious sedation x21 minutes. IMPRESSION: Drainage catheter upsizing and repositioning as described above. Pigtail catheter is now within the superior aspect of the abscess cavity, which appears to contain viscous contents. Dictated by: Junito Cardozo M.D. 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 Bynum oncology), found to be liver abscess s/p IR drain/ertapenem for kleb/ ecoli bacteremia/abscess. Presented to the ED complaining of upper abdominal pain in achy bandlike. no associated UTIs. Escherichia coli and klebsiella Acute liver abscess WITH BACTEREMIA , present on admission. Ongoing -Liver drain output was minimal but on repeat imaging 12/30 shows persistence of liver abscess , Underwent successful repositioning and upsizing of liver abscess drain 12/31. Now draining. Continue flushing the drain every shift - CT-guided drain placement for a hepatic abscess on 12/17/[address] Joel .repositioning and upsizing of liver abscess drain 12/[address] Cardozo - Ertapenem 1000 mg daily intravenously (started on 12/20/[address] Webber/KELLY bautista - at least while inpatient), started yesterday. Plan for CIPROFLOXACIN AND FLAGYL AUTO DAMAGE TRAINEE ON DISCHARGE once the tube is pulled. Dr Webber will follow patient on 01/15/17 outpatient -Patient had on and off fevers a few days prior. Now resolved, afebrile for past few days. Blood culture sent 01/01 no growth -no echo since not gram positive, unlikely endocarditis risk - Based on CT findings, demonstrating only a 20% reduction in abscess size, I believe the replacement of hepatic tube is indicated at this time to ensure complete resolution. This was the opinion of infectious disease and repair specialist in addition as such we proceeded with this plan. - PEG tube now replaced, drainage has been suboptimal considering size of abscess recently assessed on CT. Continued poor output overnight with worsening tenderness/pain in this area - Plan to repeat CT to assess for possible hemtoma related to placement and confirm location of tube related to abscess given poor output. - Pt remains poor condidate for suregry, but this may be revisited by entire treating team tomorrow, including PT's own GI physician, Dr Sam. - Replacement of liver drainage tube shows patient has good output currently. Acute sepsis, present on admission, clinically/leucocytosis resolved. - Initial Vital signs in the ED: Temperature 37.9, pulse 115, respiratory rate 18, blood pressure 126/57, with a map of 80, pulse ox 100% on room air.White blood cell count 21.8 with 90.5% neutrophils, now resolved. Acute left upper extremity DVT at site of PICC line. Not present on admission - PICC line removed on 12/20 - Per discussion with hematology (Dr. Travis on 12/[address] Bynum on 12/23) - treat patient with Lovenox given extent of DVT despite possible risk of bleeding FROM HER HHT. -Risks and benefits were discussed with patient on 12/20 -Oral anticoagulation hasn't been started given drain in place was required repositioning and upsizing. May consider initiating NOACs upon discharge or warfarin with Lovenox bridging after Hepatic tube is removed. Normocytic normochromic Anemia requiring transfusions, present on admission - Secondary Gastric and duodenal hereditary hemorrhagic telangiectasia - Followup daily H/H. - Hemoglobin 6.9 on 12/30, transfused 2 PRBCs 12/30. Hemoglobin is again downward trending, today below 7. Coupled with pt's increased fatigue, will proceed with transfusion of 2 unitis PRCs tpday. 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 History of Ulcerated gastroesophageal junction, with history of upper GI bleed s /p omental patch - Stable Cachexia, chronic, present on admission, active -Continue to encourage oral intake Chronic constipation, present on admission, ongoing - Continue with stool softeners and enema Hypothyroidism, chronic - Status post partial thyroidectomy - Continue patient's home medication Disposition: Patient is currently doing well with the drain. We will continue to follow up with infectious disease. If patient is able to remain stable she can then be discharged to a long-term facility in the next 1-2 days. VTE Prophylaxis: Sub-Q Heparin (Unfractionated) Resuscitation Status: CPR: Attempt Resuscitation Nano Araujo DO January 14, 2017 20:51
[2017-01-15] MEDS: HYDROmorphone 0.5 mg/0.5 mL iSecure Syringe IVPUSH PRN ×4 (00:15→19:37)
[2017-01-15] MEDS: Ondansetron 2 mg/mL 2 mL Inj IVPUSH PRN ×2 (02:47→10:17)
--- NOTE | 2017-01-15 04:17 | NUR ---
PAIN/NAUSEA Pt has had pain in Right abdomen and incision/drain site, rates "3-5". Pt requests prn IV dilaudid, dose given x 2. Pt states pain relieved, also observed to be resting/sleeping comfortably. Pt awoke suddenly, w/ c/o nausea. PRN IV zofran given. Pt thinks "loss of appetite and nausea might be from the Cipro." Continue to monitor. Call light in reach. Intentional rounding. Addendum: 01/15/17 at 0644 by JOSE KOHLI RN Pt states, "I'm sorry but I am going to be uncooperative, I don't want to take the Cipro until I talk to Dr. Webber about it. I really think it's making me nauseated." RN will relay pts concern/wish to oncoming shift.
[2017-01-15 05:09] VITALS: BP 121/55; PULSE 81; RESP 16; O2SAT 93
--- NOTE | 2017-01-15 05:19 | NUR ---
PIGTAIL DRAIN At ~2000, drain flushed w/ 10ml NS. At 0400, drain flushed w/ 20ml NS. When drain bag emptied, 50ml of dark brown fluid out. 20ml of true drainage out.
[2017-01-15 06:33] LABS: Mean Corpuscular Hemoglobin 28.9 pg (27.0-35.0); Mean Corpuscular Volume 96.3 fL (81-100)
[2017-01-15] MEDS: Polyethylene Glycol (PEG) 17 Gm Powder PO SCH (10:17)
[2017-01-15] MEDS: Pantoprazole 20 mg ER24 Tablet PO SCH ×2 (10:17→18:39)
--- NOTE | 2017-01-15 10:28 | NUR ---
Gave access and faxed facesheet to [facility] and [facility], patient has complex drain and IV ABX. Bertha came on 01/14/17 and spoke with patient. There is an understanding of why patient can not go straight back to [facility] at this time. Patient would like to stay local due to her . Per interdisciplinary rounds patient's may have been admitted as well. RABBLER is aware and is planning to speak with patient about all of the discharge planning options discussed in interdisciplinary rounds.
[2017-01-15] MEDS: Ertapenem Inj 1,000 MG in 0.9% Sodium Chloride 50 ML IV SCH (11:43)
--- NOTE | 2017-01-15 12:18 | NUR ---
FAMILY TEAM MEETING: Spoke with and he is not actively following patient but is willing to be available by phone if any questions directly related to his services come up. Spoke with in ID and he is able to meet tomorrow morning at 11 AM.(He will need a reminder in the morning.) Updated hospitalist Dr. Araujo about this meeting time as well. Case Management will also have a PROCESS CONTROL OPERATOR present for this. Spoke with Upper Lining Cementer Hazel and she is returning phone call to patient's daughter to update her. Updated PROCESS CONTROL OPERATOR
[2017-01-15 12:56] VITALS: BP 119/60; PULSE 82; RESP 16; O2SAT 95
[2017-01-15] MEDS: Sodium Biphos-Phos 133 mL Enema RECTAL PRN (14:00)
--- NOTE | 2017-01-15 14:51 | NUR ---
NUTRITION FOLLOW UP: Assess: 81 YO F with liver abscess s/p drain placement. Drain was repositioned and up-sized 12/30 to allow abscess to drain more. Pt needing to go back to CT today for drain replacement 01/10. IV antibiotics continue. PO intake has decreased over the past 3 days and pt thinks her nausea and decreased appetite is being caused by her Cipro antibiotic. PMHx: Ulcerated gastroesophageal junction, Irregular gastroesophageal junction, Gastric and duodenal hereditary hemorrhagic telangiectasia, Hypothyroid, malnutrition, uterine fibroid. LABS: Reviewed. MEDICATIONS: Reviewed. DIET: General. Ensure all trays. PO intake 0-25% x 3 days. GI: BM x 1 (01/13) SKIN: No issues noted ANTHROPOMETRICS: Current wt: 41.8 kg (01/01). Admit Wt: (12/17) 41.5 kg (standing scale) Past Admit Wt: 38.5 kg (Bed scale) IBW: 52.3 kg. UBW (November): 54 kg. Severe wt loss noted in past, but wt appears stable with slight increase over the past 3 months. ESTIMATED NEEDS: Malnutrition Calories: 7533-7124 kcal/day (30-35 kcal/kg IBW) Protein: 65-80 g/day (1.2-1.5 g/kg IBW) NUTRITION DIAGNOSIS: 1) Severe malnutrition related to chronic illness as evidenced by variable wt, visible loss of LBM/ fat--PERSISTS 2) Inadequate oral intake related to altered GI function as evidence by early satiety, BMI of 16.2--PERSISTS. INTERVENTION: 1) Continue to send ensure on all trays. 2) Pt has received high calorie/high protein education on 09/11/16 and 11/05/16. 3) Please obtain new wt as last recorded wt is from 01/01 (2 weeks ago) MONITOR/EVALUATE: PO intake, labs, weights, nutrition status. Follow per moderate nutrition risk guidelines.
--- NOTE | 2017-01-15 16:48 | PCM.PNMED ---
Subjective Date of Service January 15, 2017 Subjective Patient was seen and examined at bedside today. Patient denies any chest pain, shortness of breath, vomiting, diarrhea. Patient currently complains of decreased appetite and some nausea with eating. Overnight events: None Exam Vital Signs Vital Sign - Last Date Time Temp Pulse Resp B/P Pulse Ox O2 Delivery O2 Flow Rate FiO2 01/15/17 12:56 37.1 82 16 119/60 95 Room Air Intake and Output 01/14/17 01/14/17 01/15/17 Cumulative From/Thru 15:00 23:00 07:00 12/16/16 22:37 - 01/15/17 06:44 Intake Total 173 ml 530 ml 120 ml 37689 ml Output Total 350 ml 900 ml 450 ml 24658 ml Balance -177 ml -370 ml -330 ml -6198 ml Intake Oral 100 ml 520 ml 100 ml 15458 ml IV Total 73 ml 55073 ml Packed Cells 1200 ml Tube Irrigant 10 ml 20 ml 110 ml Output Urine Total 350 ml 900 ml 400 ml 64051 ml Urine/Stool Mix 3 ml Emesis 50 ml Drainage Total 50 ml 1052 ml # Voids 25 # Bowel Movements 0 0 19 Exam Physical Exam: GEN: Patient was awake, alert, responding appropriately to questions, cachectic in appearance HEENT: Pupils equal round and reactive to light, extraocular eye muscles intact , Neck soft supple, trachea midline, nomocephalic/atraumatic CV: +S1/S2, regular rate and rhythm, no murmurs auscultated Respiratory: CTAB, no wheezes, rales, rhonchi GI: +bowel sounds x4, soft, compressible, nontender to palpation, liver drainage tube in place positive output no signs of erythema or edema near the insertion site EXT: no clubbing, cyanosis, edema Neuro: Cranial nerves II-XII grossly intact Psych: mood and affect were mildly depressed IVs and Medications Medications Reviewed: Medications were reviewed in detail Lab and Diagnostics Result Diagram: 01/15/1760901/15/17609 X-Rays, CTs and MRIs CT Abd / Pelvis Interpretation CONCLUSION: Heterogeneous appearing liver with a focal hypodense area noted in the liver measuring up to 14cm in size. Possible considerations include infection and tumor. Pelvic mass in the region of the uterus. While fibroid is a consideration. Other tumor would be difficult to exclude. Findings suggestion of constipation. Cardiomegaly. 5mm left lower pulmonary nodule. Radiologist: Andrea Singh MD PROCEDURE: 1. Sinogram through existing catheter. 2. Drain exchange and reposition. 3. Conscious sedation x21 minutes. IMPRESSION: Drainage catheter upsizing and repositioning as described above. Pigtail catheter is now within the superior aspect of the abscess cavity, which appears to contain viscous contents. Dictated by: Junito Cardozo M.D. 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 Bynum oncology), found to be liver abscess s/p IR drain/ertapenem for kleb/ ecoli bacteremia/abscess. Presented to the ED complaining of upper abdominal pain in achy bandlike. no associated UTIs. Escherichia coli and klebsiella Acute liver abscess WITH BACTEREMIA , present on admission. Ongoing -Liver drain output was minimal but on repeat imaging 12/30 shows persistence of liver abscess , Underwent successful repositioning and upsizing of liver abscess drain 12/31. Now draining. Continue flushing the drain every shift - CT-guided drain placement for a hepatic abscess on 12/17/[address] Joel .repositioning and upsizing of liver abscess drain 12/[address] Cardozo - Ertapenem 1000 mg daily intravenously (started on 12/20/[address] Webber/KELLY bautista - at least while inpatient), started yesterday. Plan for CIPROFLOXACIN AND FLAGYL ALF ON DISCHARGE once the tube is pulled. Dr Webber will follow patient on 01/15/17 outpatient -Patient had on and off fevers a few days prior. Now resolved, afebrile for past few days. Blood culture sent 01/01 no growth -no echo since not gram positive, unlikely endocarditis risk - Based on CT findings, demonstrating only a 20% reduction in abscess size, I believe the replacement of hepatic tube is indicated at this time to ensure complete resolution. This was the opinion of infectious disease and resource recovery specialist in addition as such we proceeded with this plan. - PEG tube now replaced, drainage has been suboptimal considering size of abscess recently assessed on CT. Continued poor output overnight with worsening tenderness/pain in this area - Plan to repeat CT to assess for possible hemtoma related to placement and confirm location of tube related to abscess given poor output. - Pt remains poor condidate for suregry, but this may be revisited by entire treating team tomorrow, including PT's own GI physician, Dr Sam. - Replacement of liver drainage tube shows patient has good output currently. Acute sepsis, present on admission, clinically/leucocytosis resolved. - Initial Vital signs in the ED: Temperature 37.9, pulse 115, respiratory rate 18, blood pressure 126/57, with a map of 80, pulse ox 100% on room air.White blood cell count 21.8 with 90.5% neutrophils, now resolved. Acute left upper extremity DVT at site of PICC line. Not present on admission - PICC line removed on 12/20 - Per discussion with hematology (Dr. Travis on 12/[address] Bynum on 12/23) - treat patient with Lovenox given extent of DVT despite possible risk of bleeding FROM HER HHT. -Risks and benefits were discussed with patient on 12/20 -Oral anticoagulation hasn't been started given drain in place was required repositioning and upsizing. May consider initiating NOACs upon discharge or warfarin with Lovenox bridging after Hepatic tube is removed. Normocytic normochromic Anemia requiring transfusions, present on admission - Secondary Gastric and duodenal hereditary hemorrhagic telangiectasia - Followup daily H/H. - Hemoglobin 6.9 on 12/30, transfused 2 PRBCs 12/30. Hemoglobin is again downward trending, today below 7. Coupled with pt's increased fatigue, will proceed with transfusion of 2 unitis PRCs tpday. 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 History of Ulcerated gastroesophageal junction, with history of upper GI bleed s /p omental patch - Stable Cachexia, chronic, present on admission, active -Continue to encourage oral intake -We will discuss with Dr. Webber about possible antibiotics causing this as the patient feels that Cipro is causing her to feel nauseous Chronic constipation, present on admission, ongoing - Continue with stool softeners and enema Hypothyroidism, chronic - Status post partial thyroidectomy - Continue patient's home medication Disposition: Today the patient does not seem to be doing as well as she did yesterday. We will continue to follow with infectious disease and the recommendations. The patient does still have some concerns about going to [place] as is very far from her family. The patient just found out that her was admitted to the hospital today and this also may be the cause of the patient's depressed mood and affect. We will discuss with possible changing of a [facility] facility to someplace closer if possible however due to complexity of the patient's medical needs at this time [facility] for her. We will continue to look into this. Patient should be ready for discharge in the next couple of days once her antibiotic regimen has been solidified and her blood levels have stabilized. VTE Prophylaxis: Sub-Q Heparin (Unfractionated) VTE Mechanical Devices: Venous Foot Pump Resuscitation Status: CPR: Attempt Resuscitation Nano Araujo DO January 15, 2017 16:48
[2017-01-15 19:48] VITALS: BP 129/71; PULSE 84; RESP 16; O2SAT 95
--- NOTE | 2017-01-15 22:27 | NUR ---
Weakness Pt with noticeable weakness from prior shift. C/o nausea 1x. Enema administered with a positive outcome shortly later. Last known BM was 2 days prior, post an enema. Pt c/o decreased appetite. PO Cipro d/c this AM, tolerated IV abx well. Provider verbally updated on pts condition this shift.
[2017-01-16 05:03] VITALS: BP 112/61; PULSE 81; RESP 16; O2SAT 97
[2017-01-16 06:46] LABS: Mean Corpuscular Hemoglobin 29.2 pg (27.0-35.0); Mean Corpuscular Volume 96.4 fL (81-100)
--- NOTE | 2017-01-16 06:50 | NUR ---
Drain at 0500 flushed pt's drain with 20mL NS. At 0645 only about 1 mL brown fluid drained out. Will continue to monitor drainage.
[2017-01-16] MEDS: Pantoprazole 20 mg ER24 Tablet PO SCH ×2 (08:43→17:19)
[2017-01-16] MEDS: Polyethylene Glycol (PEG) 17 Gm Powder PO SCH (08:44)
[2017-01-16] MEDS: 0.9% Sodium Chloride 1,000 ML IV SCH ×2 (08:48→20:08)
[2017-01-16] MEDS ORDERED: fentaNYL-PF 50 mCg/mL 2 mL Inj ONE (10:43)
[2017-01-16] MEDS ORDERED: Flumazenil 0.1 mg/mL 5 mL Inj IV ONE (10:43)
[2017-01-16] MEDS: Ertapenem Inj 1,000 MG in 0.9% Sodium Chloride 50 ML IV SCH (11:30)
--- NOTE | 2017-01-16 11:32 | NUR ---
FERDINAND signed SOHAN Kim
--- NOTE | 2017-01-16 11:33 | NUR ---
Social Work: Continued d/c planning Data: IRRIGATION PUMP INSTALLER, UR specialist, KELLY MCCLENDON, met with pt and pt's children regarding d/c plans. They have decided to explore further SNF options, with [facility] and then for [facility]. Pt agreeable to expand the search to find a facility that can accommodate her needs. Pt requests that her come to whatever SNF she goes to, they are willing to consider private pay costs for this. Pt gave IRRIGATION PUMP INSTALLER permission to speak with pt's IRRIGATION PUMP INSTALLER d/c shoe planner regarding his d/c plan. IRRIGATION PUMP INSTALLER called pt's spouse d/c shoe planner who states pt's spouse is likely not skillable for SNF and would need to pay privately, he also will likely be ready for d/c prior to pt. UR specialist making referrals to SNF's. IRRIGATION PUMP INSTALLER will continue to follow. Plan: UR specialist making referrals to [facility] and [facility] (second choice), then will expand search if these facilities cannot meet pt's medical needs of her drain and IVABX. IRRIGATION PUMP INSTALLER will continue to to communicate with pt's husbands d/c shoe planner regarding plan. IRRIGATION PUMP INSTALLER will continue to follow. SOHAN Kim
--- NOTE | 2017-01-16 11:42 | PROG NOTE ---
[address] [address] PROGRESS NOTE PATIENT: STEWART UREÑA : 1935 MR#: [id number] ADMIT: 12/17/2016 JOB ID: [id number] DATE: 01/16/2017 SUBJECTIVE: The patient is an 81-year-old woman with hereditary hemorrhagic telangiectasia. She was hospitalized with a right liver abscess. The drain was replaced earlier this week. She is quite fatigued. She denies any shortness of breath or chest pain. Appetite has been poor. She has nausea with eating. Abscess drain change on January 13, 2017, included repositioning and upsizing. She continues to have output of about 75 mL per day. OBJECTIVE: Vitals: T 36.7, P 81, R 16, BP 112/61. HEENT: Conjunctivae slightly pale. Mucous membranes somewhat dry. No oral lesions. Nodes: No adenopathy in the neck or axillae. Chest: Slightly decreased at the bases. Cardiac exam: Regular rate and rhythm with normal S1, S2. Abdomen: Soft. Percutaneous drain intact. Extremities: Muscular wasting, 2+ distal pulses. LABORATORIES: WBC 4.6, hemoglobin 7.3, hematocrit 24.1%, platelets 533,000. ASSESSMENT AND PLAN: 1. Hereditary hemorrhagic telangiectasia: Hemoglobin and hematocrit continue to drift lower. She has borderline indications for additional transfusion support. Continue to monitor, with transfusion should she become more symptomatic. 2. Right liver abscess: Culture of abscess material was positive for both Escherichia coli and klebsiella. She remains on antibiotic coverage with ertapenem 1000 mg IV daily, which she is tolerating well. Continue management per the Hospitalist team.
--- NOTE | 2017-01-16 13:04 | NUR ---
Gave access and faxed facesheet to [facility] and [facility]. [facility] is preference and then [facility]. petroleum terminal plant operator goal is to return to [place]. Patient's will likely join her at SNF and that is something the children want to happen and want the facilities to know. He is currently admitted as well. NARROW GAUGE ENGINEER was present during to family team meeting when all these options were discussed. Addendum: 01/16/17 at 1513 by JOSI SKY CM [facility] has accepted patient with to follow. Also spoke with Dorothy from [facility] and she has confirmed with her regional nurse until drain and IV ABX are complete patient will not be able to reside with them. Updated her on current plan for SNF and let her know we would be in touch if anything changed. Updated NARROW GAUGE ENGINEER
--- NOTE | 2017-01-16 13:10 | PROG NOTE ---
[address] [address] PROGRESS NOTE PATIENT: STEWART UREÑA : 1935 MR#: [id number] ADMIT: 12/17/2016 JOB ID: [id number] DATE: 01/16/2017 INFECTIOUS DISEASE FOLLOW UP NOTE: REASON FOR FOLLOWUP: Large liver abscess and the need for family conference. INTERVAL HISTORY: About 36 hours ago we stopped the patient's Cipro because of persistent nausea. Recall that Cipro was going to be the transitional drug we were going to switch to in terms of treating the liver abscess after she completed a long course of ertapenem. Unfortunately, the patient developed the nausea and it what was unclear what was going on but we stopped the Cipro about 36 hours ago and subsequently her nausea and anorexia completely resolved and she feels much improved. The patient continues to have some drainage out of her new right upper quadrant drain. She is having no fevers, chills, or cough. She has minimal right upper quadrant pain around the drain. PHYSICAL EXAMINATION: Reveals an afebrile woman temperature 36.7, pulse 81, respiratory rate 16, blood pressure 112/61, saturating 97% on room air. Examination of the eyes without conjunctivitis today. The oral cavity is without thrush. Lungs fairly clear. Cardiac tones without new murmur. Abdomen is relatively nontender, very thin. Right upper quadrant drain in place draining some chocolate milk like fluid and quantity. Overall the patient looks better than yesterday though. LABORATORIES: Include white count 4600, platelet count 533,000. Creatinine 0.39. Alk phos 432. Bilirubin 0.6, albumin 2.3. Micro studies: The follow up blood cultures January 01 are negative. Recall that the initial cultures December 17 when she was admitted grew E coli and Klebsiella. Also recall that these were both susceptible to a wide variety of agents including Cipro, Zosyn, Bactrim and ceftriaxone. No new imaging has been obtained since the abscess drainage on January 13. IMPRESSION: This patient continues to make very slow progress. Her drains continued to produce underwhelming amounts of fluid from the large liver abscess which is only about 20% smaller than when she was admitted a month ago on the last CT scan. We continue to use ertapenem as our work horse antibiotic here because it covers both the Klebsiella and E. coli and also would provide coverage for any anaerobes. As part of today's family conference, there was discussion about the patient moving to a half-way facility in [facility] so she can remain close to her . To facilitate that and in terms of cost issues, I do think it is reasonable to switch to ceftriaxone plus Flagyl, though I am concerned that the patient may develop additional nausea from the Flagyl. I expressed my opinion to the family that this will likely be a very lengthy process with continued percutaneous drainage and antibiotics for the long haul. We may eventually be able to transition the antibiotics to an oral agent such as Bactrim or Cefdinir for treatment of the gram negatives, while continuing perhaps some Flagyl for the anaerobes. Another option here might be to use Augmentin which would likely be efficacious, but in the short run, I think we should continue with IV antibiotics until we see a major decrease in the size of this abscess. The family was curious about whether this may be a terminal event in this debilitated elderly woman and I told them that from my opinion, this would be difficult to tell unless we continue to pursue aggressive therapy of the liver abscess though it will undoubtedly be a very debilitating and lengthy procedure. RECOMMENDATIONS: 1. Will change the ertapenem to ceftriaxone 2 g IV q.24 hours plus Flagyl 500 mg p.o. b.i.d. 2. Today's visit was extended to about 40 minutes because of the family conference which was attached to the end of my visit with the patient and answering numerous questions for the discharge planners. 3. Overall I think the patient could be discharged to a half-way facility on ceftriaxone 2 g once a day, Flagyl 500 p.o. b.i.d. with a plan to eventually switched to oral Augmentin or a combination of Septra plus Flagyl down the road with close laboratory monitoring. 4. She will need serial imaging studies whether she stays in an acute care hospital or goes to a half-way facility.
[2017-01-16] MEDS: cefTRIAXone Inj 2,000 MG in Dextrose 5% Minibag Plus 50 ML IV SCH (13:24)
[2017-01-16] MEDS: HYDROmorphone 0.5 mg/0.5 mL iSecure Syringe IVPUSH PRN ×2 (13:24→17:53)
[2017-01-16 13:31] VITALS: BP 135/49; PULSE 75; RESP 16; O2SAT 99
--- NOTE | 2017-01-16 16:27 | NUR ---
Decreased appetite Pt denies nausea today, appetite still decreased. Tolerating IVF well. Uses call light appropriately. Bed in low position, call light in reach, will continue to monitor.
[2017-01-16] MEDS: Ondansetron 2 mg/mL 2 mL Inj IVPUSH PRN (17:51)
--- NOTE | 2017-01-16 19:13 | PCM.PNMED ---
Subjective Date of Service January 16, 2017 Subjective Patient was seen and examined at bedside today. Patient denies any chest pain, shortness of breath, nausea, vomiting, diarrhea. Overnight events: None Exam Vital Signs Vital Sign - Last Date Time Temp Pulse Resp B/P Pulse Ox O2 Delivery O2 Flow Rate FiO2 01/16/17 13:31 36.9 75 16 135/49 99 Room Air Intake and Output 01/15/17 01/15/17 01/16/17 Cumulative From/Thru 15:00 23:00 07:00 12/16/16 22:37 - 01/16/17 06:27 Intake Total 380 ml 200 ml 75 ml 81135 ml Output Total 475 ml 200 ml 180 ml 91888 ml Balance -95 ml 0 ml -105 ml -6398 ml Intake Oral 200 ml 75 ml 67443 ml IV Total 380 ml 38773 ml Packed Cells 1200 ml Tube Irrigant 110 ml Output Urine Total 450 ml 200 ml 180 ml 29002 ml Urine/Stool Mix 3 ml Emesis 50 ml Drainage Total 25 ml 1077 ml # Voids 25 # Bowel Movements 1 20 Exam Physical Exam: GEN: Patient was awake, alert, responding appropriately to questions, cachectic HEENT: Pupils equal round and reactive to light, extraocular eye muscles intact , Neck soft supple, trachea midline, nomocephalic/atraumatic CV: +S1/S2, regular rate and rhythm, no murmurs auscultated Respiratory: CTAB, no wheezes, rales, rhonchi GI: +bowel sounds x4, soft, compressible, nontender to palpation, abscess drain still in place no signs of erythema or edema at the insertion site EXT: no clubbing, cyanosis, edema Neuro: Cranial nerves II-XII grossly intact Psych: mood and affect were appropriate IVs and Medications Medications Reviewed: Medications were reviewed in detail Lab and Diagnostics Result Diagram: 01/16/1761401/16/17614 X-Rays, CTs and MRIs CT Abd / Pelvis Interpretation CONCLUSION: Heterogeneous appearing liver with a focal hypodense area noted in the liver measuring up to 14cm in size. Possible considerations include infection and tumor. Pelvic mass in the region of the uterus. While fibroid is a consideration. Other tumor would be difficult to exclude. Findings suggestion of constipation. Cardiomegaly. 5mm left lower pulmonary nodule. Radiologist: Andrea Singh MD PROCEDURE: 1. Sinogram through existing catheter. 2. Drain exchange and reposition. 3. Conscious sedation x21 minutes. IMPRESSION: Drainage catheter upsizing and repositioning as described above. Pigtail catheter is now within the superior aspect of the abscess cavity, which appears to contain viscous contents. Dictated by: Junito Cardozo M.D. 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 Bynum oncology), found to be liver abscess s/p IR drain/ertapenem for kleb/ ecoli bacteremia/abscess. Presented to the ED complaining of upper abdominal pain in achy bandlike. no associated UTIs. Escherichia coli and klebsiella Acute liver abscess WITH BACTEREMIA , present on admission. Ongoing -Liver drain output was minimal but on repeat imaging 12/30 shows persistence of liver abscess , Underwent successful repositioning and upsizing of liver abscess drain 12/31. Now draining. Continue flushing the drain every shift - CT-guided drain placement for a hepatic abscess on 12/17/[address] Joel .repositioning and upsizing of liver abscess drain 12/[address] Cardozo - Discontinue ertapenem (12/20/16-01/16/17) start IV Rocephin and Flagyl. Cipro was discontinued yesterday (01/15/17) per recommendation of Dr. Webber -Patient had on and off fevers a few days prior. Now resolved, afebrile for past few days. Blood culture sent 01/01 no growth -no echo since not gram positive, unlikely endocarditis risk - Based on CT findings, demonstrating only a 20% reduction in abscess size, I believe the replacement of hepatic tube is indicated at this time to ensure complete resolution. This was the opinion of infectious disease and clinical lab specialist in addition as such we proceeded with this plan. - PEG tube now replaced, drainage has been suboptimal considering size of abscess recently assessed on CT. Continued poor output overnight with worsening tenderness/pain in this area - Plan to repeat CT to assess for possible hemtoma related to placement and confirm location of tube related to abscess given poor output. - Pt remains poor condidate for suregry, but this may be revisited by entire treating team tomorrow, including PT's own GI physician, Dr Sam. - Replacement of liver drainage tube complete 01/14/17 Acute sepsis, present on admission, clinically/leucocytosis resolved. - Initial Vital signs in the ED: Temperature 37.9, pulse 115, respiratory rate 18, blood pressure 126/57, with a map of 80, pulse ox 100% on room air.White blood cell count 21.8 with 90.5% neutrophils, now resolved. Acute left upper extremity DVT at site of PICC line. Not present on admission - PICC line removed on 12/20 - Per discussion with hematology (Dr. Travis on 12/[address] Bynum on 12/23) - treat patient with Lovenox given extent of DVT despite possible risk of bleeding FROM HER HHT. -Risks and benefits were discussed with patient on 12/20 -Oral anticoagulation hasn't been started given drain in place was required repositioning and upsizing. May consider initiating NOACs upon discharge or warfarin with Lovenox bridging after Hepatic tube is removed. Normocytic normochromic Anemia requiring transfusions, present on admission - Secondary Gastric and duodenal hereditary hemorrhagic telangiectasia - Followup daily H/H. - Hemoglobin 6.9 on 12/30, transfused 2 PRBCs 12/30. Hemoglobin is again downward trending, today below 7. Coupled with pt's increased fatigue, will proceed with transfusion of 2 unitis PRCs tpday. 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 History of Ulcerated gastroesophageal junction, with history of upper GI bleed s /p omental patch - Stable Cachexia, chronic, present on admission, active -Continue to encourage oral intake Chronic constipation, present on admission, ongoing - Continue with stool softeners and enema Hypothyroidism, chronic - Status post partial thyroidectomy - Continue patient's home medication Dispo: A meeting was held today with Dr. Webber and the patient and her family. During this meeting it was discussed that the patient upon discharge will try to go to [facility] which will be placed that she and her can both be discharged to. At this time the plan is to discontinue the ertapenem and switch the patient over to IV Rocephin and oral Flagyl. The patient has been discontinued from Cipro and this has helped the patient's appetite. The case was discussed extensively with Dr. Webber and once the patient is medically stable she will be able to be discharged hopefully to a place that both she and her can go to. At this time the patient is still seemed to be dropping her hemoglobin so we are continuing to watch this and will treat as necessary. VTE Prophylaxis: Sub-Q Heparin (Unfractionated) VTE Mechanical Devices: Venous Foot Pump Resuscitation Status: CPR: Attempt Resuscitation Nano Araujo DO January 16, 2017 19:13
[2017-01-17] VITALS (8 sets, daily range): BP systolic 114–158; BP diastolic 49–68; PULSE 70–85; RESP 16–18; O2SAT 98–99
[2017-01-17] MEDS: Ondansetron 2 mg/mL 2 mL Inj IVPUSH PRN ×3 (03:34→15:22)
[2017-01-17] MEDS: HYDROmorphone 0.5 mg/0.5 mL iSecure Syringe IVPUSH PRN ×4 (03:34→20:23)
[2017-01-17] MEDS: 0.9% Sodium Chloride 1,000 ML IV SCH ×3 (06:03→23:34)
--- NOTE | 2017-01-17 06:14 | NUR ---
Pain/drain/oral intake PT states she feels better this night, not requesting pain meds as often. Medicated with 0.5mg dilaudid x1. Drain is not putting out much-maybe total of 5ml through the night. Pt given first dose of oral metronidazole and seems to have tolerated well although she did not have any dinner besides pudding and few teaspoons of apple sauce. Having trouble swallowing even small thyroid pills (has to really concentrate to get them down but no coughing).
[2017-01-17 06:36] LABS: Mean Corpuscular Hemoglobin 29.6 pg (27.0-35.0); Mean Corpuscular Volume 96.4 fL (81-100)
--- NOTE | 2017-01-17 07:02 | NUR ---
Critical Hgb 6.6 Paged day BLUE team while giving report to dayshift RN. Dayshift RN will take over new orders and care.
[2017-01-17] MEDS: Pantoprazole 20 mg ER24 Tablet PO SCH ×2 (08:21→16:47)
[2017-01-17] MEDS: Polyethylene Glycol (PEG) 17 Gm Powder PO SCH (08:22)
--- NOTE | 2017-01-17 09:12 | PROG NOTE ---
[address] [address] PROGRESS NOTE PATIENT: STEWART UREÑA : 1935 MR#: [id number] ADMIT: 12/17/2016 JOB ID: [id number] DATE: 01/17/2017 INFECTIOUS DISEASE FOLLOWUP NOTE: REASON FOR FOLLOWUP: Large liver abscess in a patient with chronic anemia secondary to hereditary hemorrhagic telangiectasias. INTERVAL HISTORY: Overnight, the patient reports she has developed anorexia, though no nausea or vomiting. She has minimal right upper quadrant pain. No fevers, chills, or sweats, and no new shortness of breath. This case was discussed in detail at the bedside with the patient, as well as the nurse and Dr. Araujo, the hospitalist. PHYSICAL EXAMINATION: Reveals an afebrile, frail woman, in no acute distress. Temperature 36.7, pulse 74, respiratory rate 16, blood pressure 117/58, saturating well on room air. Examination of the eyes reveals conjunctival pallor. Oral cavity negative. Lungs fairly clear. Abdomen: Minimal right upper quadrant tenderness. The drain seems to be producing more today than it has in the last few days, though it is yet to be quantitated. LABORATORIES: Include a white count 3600. Her crit has dropped to 21, and she is about to receive 2 units of blood. The alk phos continues a downward trend in the past few days. It is now down to 466, which may be a good sign in this circumstance. No new micro is available. IMPRESSION: This is an extremely complex woman with chronic anemia and transfusion dependent secondary to her HHT. She presents with a large bacteremic liver abscess with klebsiella and E. coli. She has now been here in the hospital over a month and her liver abscess is somewhat smaller but by no means resolved. We have been using ertapenem as our primary therapy. Yesterday, in an attempt to facilitate [place] [facility] placement, where the cost of ertapenem is often an issue, I changed the patient from ertapenem to ceftriaxone and Flagyl. Anaerobe coverage is usually desirable in treatment of liver abscesses. These organisms are difficult to culture and likely present even when they are not detected in culture, though the only two bugs we have found here are aerobes. RECOMMENDATIONS: 1. I would continue with ceftriaxone 2 g once a day plus the Flagyl 500 p.o. b.i.d. for an indefinite period but probably at least 2-4 more weeks. 2. How long to continue with the IV ceftriaxone plus oral Flagyl will be dependent on how her liver abscess progresses, and this will need to be monitored by serial ultrasounds or CAT scans going forward even if she is at the [facility]. 3. Once the patient's abscess has substantially reduced in size and she is much improved clinically, her therapy could be transitioned to an oral regimen such has Augmentin as a solo agent or for a combination of Septra or cefdinir plus Flagyl. Out of these oral options, I would be inclined to favor Augmentin to avoid long-term Flagyl issues. 4. I understand the patient and her , who is also an inpatient here at [facility], may be transferred in tandem to one of the [facility]. My recommendation is [facility] then would be to continue with ceftriaxone and Flagyl for an extended period, which range into several weeks, with serial followup of the liver abscess. Once the liver abscess is substantially better, I would switch to Augmentin and continue that for several more weeks until the abscess is essentially gone. 5. Weekly labs should include at least a CBC and a set of liver function tests. 6. The patient will likely require transfusions for reasons unrelated to her liver abscess or related to her HHT. 7. If the physician at the [facility] wishes to follow her labs and her liver abscess, that is okay with me and I need not be involved. If on the other hand, my help is desired in terms of managing and following her liver abscess and antibiotic management, then I ask that the patient be referred to my clinic for an appointment on or about January 29.
[2017-01-17] MEDS ORDERED: 0.9% Sodium Chloride 250 ML ONE ×2 (09:36→14:05)
[2017-01-17] MEDS: cefTRIAXone Inj 2,000 MG in Dextrose 5% Minibag Plus 50 ML IV SCH (13:12)
--- NOTE | 2017-01-17 16:40 | PCM.PNMED ---
Subjective Date of Service January 17, 2017 Subjective Patient was seen and examined at bedside today. Patient denies any chest pain, shortness of breath, diarrhea. Patient reports nausea and some vomiting with eating. Overnight events: None Exam Vital Signs Vital Sign - Last Date Time Temp Pulse Resp B/P Pulse Ox O2 Delivery O2 Flow Rate FiO2 01/17/17 14:31 36.9 70 18 149/68 01/17/17 13:51 99 Room Air Intake and Output 01/16/17 01/16/17 01/17/17 Cumulative From/Thru 15:00 23:00 07:00 12/16/16 22:37 - 01/17/17 06:49 Intake Total 1233 ml 1169 ml 18798 ml Output Total 460 ml 700 ml 77149 ml Balance 773 ml 469 ml -5156 ml Intake Oral 360 ml 200 ml 94823 ml IV Total 873 ml 969 ml 43743 ml Packed Cells 1200 ml Tube Irrigant 110 ml Output Urine Total 230 ml 700 ml 70271 ml Urine/Stool Mix 200 ml 203 ml Emesis 50 ml Drainage Total 30 ml 1107 ml # Voids 25 # Bowel Movements 1 0 21 Exam Physical Exam: GEN: Patient was awake, alert, responding appropriately to questions, cachectic HEENT: Pupils equal round and reactive to light, extraocular eye muscles intact , Neck soft supple, trachea midline, nomocephalic/atraumatic CV: +S1/S2, regular rate and rhythm, no murmurs auscultated Respiratory: CTAB, no wheezes, rales, rhonchi GI: +bowel sounds x4, soft, compressible, nontender to palpation EXT: no clubbing, cyanosis, edema Neuro: Cranial nerves II-XII grossly intact Psych: mood and affect were appropriate IVs and Medications Medications Reviewed: Medications were reviewed in detail Lab and Diagnostics Result Diagram: 01/17/17 0600 01/17/17 0600 X-Rays, CTs and MRIs CT Abd / Pelvis Interpretation CONCLUSION: Heterogeneous appearing liver with a focal hypodense area noted in the liver measuring up to 14cm in size. Possible considerations include infection and tumor. Pelvic mass in the region of the uterus. While fibroid is a consideration. Other tumor would be difficult to exclude. Findings suggestion of constipation. Cardiomegaly. 5mm left lower pulmonary nodule. Radiologist: Andrea Singh MD PROCEDURE: 1. Sinogram through existing catheter. 2. Drain exchange and reposition. 3. Conscious sedation x21 minutes. IMPRESSION: Drainage catheter upsizing and repositioning as described above. Pigtail catheter is now within the superior aspect of the abscess cavity, which appears to contain viscous contents. Dictated by: Junito Cardozo M.D. 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 Bynum oncology), found to be liver abscess s/p IR drain/ertapenem for kleb/ ecoli bacteremia/abscess. Presented to the ED complaining of upper abdominal pain in achy bandlike. no associated UTIs. Escherichia coli and klebsiella Acute liver abscess WITH BACTEREMIA , present on admission. Ongoing -Liver drain output was minimal but on repeat imaging 12/30 shows persistence of liver abscess , Underwent successful repositioning and upsizing of liver abscess drain 12/31. Now draining. Continue flushing the drain every shift - CT-guided drain placement for a hepatic abscess on 12/17/[address] Joel .repositioning and upsizing of liver abscess drain 12/[address] Cardozo - Discontinue ertapenem (12/20/16-01/16/17) start IV Rocephin and Flagyl. Cipro was discontinued yesterday (01/15/17) per recommendation of Dr. Webber -Patient had on and off fevers a few days prior. Now resolved, afebrile for past few days. Blood culture sent 01/01 no growth -no echo since not gram positive, unlikely endocarditis risk - Based on CT findings, demonstrating only a 20% reduction in abscess size, I believe the replacement of hepatic tube is indicated at this time to ensure complete resolution. This was the opinion of infectious disease and business management specialist in addition as such we proceeded with this plan. - PEG tube now replaced, drainage has been suboptimal considering size of abscess recently assessed on CT. Continued poor output overnight with worsening tenderness/pain in this area - Plan to repeat CT to assess for possible hemtoma related to placement and confirm location of tube related to abscess given poor output. - Pt remains poor condidate for suregry, but this may be revisited by entire treating team tomorrow, including PT's own GI physician, Dr Sam. - Replacement of liver drainage tube complete 01/14/17 Acute sepsis, present on admission, clinically/leucocytosis resolved. - Initial Vital signs in the ED: Temperature 37.9, pulse 115, respiratory rate 18, blood pressure 126/57, with a map of 80, pulse ox 100% on room air.White blood cell count 21.8 with 90.5% neutrophils, now resolved. Acute left upper extremity DVT at site of PICC line. Not present on admission - PICC line removed on 12/20 - Per discussion with hematology (Dr. Travis on 12/[address] Bynum on 12/23) - treat patient with Lovenox given extent of DVT despite possible risk of bleeding FROM HER HHT. -Risks and benefits were discussed with patient on 12/20 -Oral anticoagulation hasn't been started given drain in place was required repositioning and upsizing. May consider initiating NOACs upon discharge or warfarin with Lovenox bridging after Hepatic tube is removed. Normocytic normochromic Anemia requiring transfusions, present on admission - Secondary Gastric and duodenal hereditary hemorrhagic telangiectasia - Followup daily H/H. - Hemoglobin 6.9 on 12/30, transfused 2 PRBCs 12/30. 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 History of Ulcerated gastroesophageal junction, with history of upper GI bleed s /p omental patch - Stable Cachexia, chronic, present on admission, active -Continue to encourage oral intake Chronic constipation, present on admission, ongoing - Continue with stool softeners and enema Hypothyroidism, chronic - Status post partial thyroidectomy - Continue patient's home medication Dispo: At this time the plan is to transfuse the patient and once her hemoglobin is stable she should have weekly CBCs while at [facility]. The goal is to transfer the patient to [facility] since that she and her can be together. The patient will continue on IV Rocephin and by mouth Flagyl upon discharge. Once the patient's H&H is relatively stable than she should be able to go to [facility] with weekly CBCs and possible transfusions if H&H drops below 7. VTE Prophylaxis: Sub-Q Heparin (Unfractionated) VTE Mechanical Devices: Venous Foot Pump Resuscitation Status: CPR: Attempt Resuscitation Nano Araujo DO January 17, 2017 16:39
[2017-01-18] MEDS: HYDROmorphone 0.5 mg/0.5 mL iSecure Syringe IVPUSH PRN ×4 (00:47→20:45)
--- NOTE | 2017-01-18 04:36 | NUR ---
Pain control Pt requests IV dilaudid for right upper quadrant abd pain. She states her pain is a 4. Pt has good effect with pain medication. Her pain is reduced to a 2 and she is able to sleep.
[2017-01-18 05:18] VITALS: BP 159/75; PULSE 77; RESP 18; O2SAT 97
[2017-01-18] MEDS: Pantoprazole 20 mg ER24 Tablet PO SCH ×2 (08:42→15:39)
[2017-01-18] MEDS: Polyethylene Glycol (PEG) 17 Gm Powder PO SCH (08:52)
[2017-01-18] MEDS: 0.9% Sodium Chloride 1,000 ML IV SCH (08:57)
--- NOTE | 2017-01-18 10:04 | PROG NOTE ---
[address] [address] PROGRESS NOTE PATIENT: STEWART UREÑA : 1935 MR#: [id number] ADMIT: 12/17/2016 JOB ID: [id number] DATE: 01/18/2017 SUBJECTIVE: The patient is an 81-year-old woman with hereditary hemorrhagic telangiectasia. She has a longstanding history of bleeding from her upper intestinal tract. She was hospitalized with a right liver abscess, following prior surgical repair of gastric perforation. She has a percutaneous drain in the right hepatic lobe. There are at least two loculated lesions in the liver measuring up to 2.3 cm inferiorly and 5.4 cm superiorly on imaging from January 12, 2017. She continues to have drainage of about 75 mL daily. She is quite weak. She tried to eat this morning, but had severe pain and nausea after only one or two bites. She is on ceftriaxone and Flagyl for management of her abscess, guided by Dr. Webber. OBJECTIVE: Vitals: T 36.4, P 77, R 18, BP 159/75. O2 saturation 97% on room air. HEENT: Conjunctivae pale. Mucous membranes dry. No oral lesions. Nodes: No adenopathy in the neck or axilla. Chest: Slightly decreased at the bases. Cardiac examination: Regular rate and rhythm with normal S1, S2. Abdomen: Soft. Percutaneous drain intact. No significant heme. Extremities: Muscular wasting. 2+ distal pulses. LABORATORIES: WBC 3.6, hemoglobin 10.4, hematocrit 31.5%, platelets 466,000. BUN 6, creatinine 0.3, glucose 93. ASSESSMENT AND PLAN: 1. Hereditary hemorrhagic telangiectasia: The patient received 2 units packed red blood cells yesterday when her hemoglobin fell to 6.6 with hematocrit of 21.5%. She feels a bit stronger after transfusion. She likely continues to bleed from her telangiectasias. Given her current worsening abdominal pain , which is consistent with her prior gastric perforation, recommend additional GI evaluation, with consideration to repeat upper endoscopy with Dr. Sam or one of his colleagues. Continue to monitor. 2. Right liver abscess: Culture of abscess was positive for both E. coli and Klebsiella. Continue broad-spectrum antibiotics per Dr. Webber.
[2017-01-18] MEDS: cefTRIAXone Inj 2,000 MG in Dextrose 5% Minibag Plus 50 ML IV SCH (11:39)
[2017-01-18 14:02] VITALS: BP 126/63; PULSE 76; RESP 20; O2SAT 95
--- NOTE | 2017-01-18 14:44 | NUR ---
NUTRITION FOLLOW UP: Assess: 81 YO F with liver abscess, following prior surgical repair of gastric perforation. She has a history of bleeding from her upper intestinal tract. She has a percutaneous drain in the right hepatic lobe. There are at least two loculated lesions in the liver. She continues to have drainage of about 75 mL daily. She is quite weak. She tried to eat this morning but had severe pain and nausea after only one or two bites. PO intake has been erratic, and pt thinks her nausea and decreased appetite is being caused by her Cipro antibiotic. Oncology recommending additional GI evaluation, with consideration to repeat upper endoscopy. PMHx: Ulcerated gastroesophageal junction, Irregular gastroesophageal junction, Gastric and duodenal hereditary hemorrhagic telangiectasia, Hypothyroid, malnutrition, uterine fibroid. LABS: Reviewed. BUN 6, Cr < 0.30, Alk Phos 401, Alb 2.2. MEDICATIONS: Reviewed. [place] thyroid. DIET: General. Ensure all trays. PO intake 0 - 50% trays. GI:BM x 2 (01/17). SKIN: No issues noted. ANTHROPOMETRICS: Current wt: 41.8 kg (01/01). Admit Wt: (12/17) 41.5 kg (standing scale) Past Admit Wt: 38.5 kg (Bed scale) IBW: 52.3 kg. UBW (November): 54 kg. Severe wt loss noted in past, but wt appears stable with slight increase over the past 3 months. ESTIMATED NEEDS: Malnutrition Calories: 5048-3048 kcal/day (30-35 kcal/kg IBW) Protein: 65-80 g/day (1.2-1.5 g/kg IBW) NUTRITION DIAGNOSIS: 1) Severe malnutrition related to chronic illness as evidenced by variable wt, visible loss of LBM/ fat - PERSISTS. 2) Inadequate oral intake related to altered GI function as evidence by early satiety, BMI of 16.0 - PERSISTS. INTERVENTION: 1) Continue to send Ensure on all trays. 2) Pt has received high calorie/high protein education on 09/11/16 and 11/05/16. 3) Please obtain new wt as last recorded wt is from 01/01. 4) As pt. remains full code, perhaps it would be appropriate to either involve the palliative care team or discuss PEG tube placement with family. MONITOR/EVALUATE: PO intake, labs, weights, nutrition status. Follow per high nutrition risk guidelines.
--- NOTE | 2017-01-18 15:15 | NUR ---
FERDINAND attempted Pt on commode. BRAKE RELINER will attempt later. Erica Caraballo, BRAKE RELINER
--- NOTE | 2017-01-18 16:29 | PCM.PNMED ---
Subjective Date of Service January 18, 2017 Subjective Patient was seen and examined at bedside today. Patient denies any chest pain, shortness of breath, nausea, vomiting, diarrhea. Patient states that her appetite has increased she does feel hungry however when she eats she states that she has severe epigastric pain and it appears like she is swallowing sandpaper whenever she eats. Overnight events: None Exam Vital Signs Vital Sign - Last Date Time Temp Pulse Resp B/P Pulse Ox O2 Delivery O2 Flow Rate FiO2 01/18/17 14:02 36.9 76 20 126/63 95 Room Air Intake and Output 01/17/17 01/17/17 01/18/17 Cumulative From/Thru 15:00 23:00 07:00 12/16/16 22:37 - 01/18/17 06:44 Intake Total 1102 ml 740 ml 1645 ml 23942 ml Output Total 860 ml 665 ml 71532 ml Balance 1102 ml -120 ml 980 ml -3194 ml Intake Oral 740 ml 520 ml 14628 ml IV Total 802 ml 1125 ml 20039 ml Packed Cells 300 ml 1500 ml Tube Irrigant 110 ml Output Urine Total 860 ml 650 ml 74626 ml Urine/Stool Mix 203 ml Emesis 50 ml Drainage Total 15 ml 1122 ml # Voids 25 # Bowel Movements 2 0 23 Exam Physical Exam: GEN: Patient was awake, alert, responding appropriately to questions, cachectic HEENT: Pupils equal round and reactive to light, extraocular eye muscles intact , Neck soft supple, trachea midline, nomocephalic/atraumatic CV: +S1/S2, regular rate and rhythm, no murmurs auscultated Respiratory: CTAB, no wheezes, rales, rhonchi GI: +bowel sounds x4, soft, compressible, nontender to palpation EXT: no clubbing, cyanosis, edema Neuro: Cranial nerves II-XII grossly intact Psych: mood and affect were appropriate IVs and Medications Medications Reviewed: Medications were reviewed in detail Lab and Diagnostics Result Diagram: 01/18/17 0840 01/18/17 0840 X-Rays, CTs and MRIs CT Abd / Pelvis Interpretation CONCLUSION: Heterogeneous appearing liver with a focal hypodense area noted in the liver measuring up to 14cm in size. Possible considerations include infection and tumor. Pelvic mass in the region of the uterus. While fibroid is a consideration. Other tumor would be difficult to exclude. Findings suggestion of constipation. Cardiomegaly. 5mm left lower pulmonary nodule. Radiologist: Andrea Singh MD PROCEDURE: 1. Sinogram through existing catheter. 2. Drain exchange and reposition. 3. Conscious sedation x21 minutes. IMPRESSION: Drainage catheter upsizing and repositioning as described above. Pigtail catheter is now within the superior aspect of the abscess cavity, which appears to contain viscous contents. Dictated by: Junito Cardozo M.D. 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 Bynum oncology), found to be liver abscess s/p IR drain/ertapenem for kleb/ ecoli bacteremia/abscess. Presented to the ED complaining of upper abdominal pain in achy bandlike. no associated UTIs. Escherichia coli and klebsiella Acute liver abscess WITH BACTEREMIA , present on admission. Ongoing -Liver drain output was minimal but on repeat imaging 12/30 shows persistence of liver abscess , Underwent successful repositioning and upsizing of liver abscess drain 12/31. Now draining. Continue flushing the drain every shift - CT-guided drain placement for a hepatic abscess on 12/17/[address] Joel .repositioning and upsizing of liver abscess drain 12/[address] Cardozo - Discontinue ertapenem (12/20/16-01/16/17) start IV Rocephin and Flagyl. Cipro was discontinued yesterday (01/15/17) per recommendation of Dr. Webber -Patient had on and off fevers a few days prior. Now resolved, afebrile for past few days. Blood culture sent 01/01 no growth -no echo since not gram positive, unlikely endocarditis risk - Based on CT findings, demonstrating only a 20% reduction in abscess size, I believe the replacement of hepatic tube is indicated at this time to ensure complete resolution. This was the opinion of infectious disease and payroll tax specialist in addition as such we proceeded with this plan. - PEG tube now replaced, drainage has been suboptimal considering size of abscess recently assessed on CT. Continued poor output overnight with worsening tenderness/pain in this area - Plan to repeat CT to assess for possible hemtoma related to placement and confirm location of tube related to abscess given poor output. - Pt remains poor condidate for suregry, but this may be revisited by entire treating team tomorrow, including PT's own GI physician, Dr Sam. - Replacement of liver drainage tube complete 01/14/17 Epigastric pain -Continue to use Maalox prior to eating -Start sucralfate -Add Grasshopper/GI cocktail prior to eating for comfort -Continue omeprazole -Consult GI Dr. Sam who states that he will most likely take the patient in for an EGD tomorrow. Acute sepsis, present on admission, clinically/leucocytosis resolved. - Initial Vital signs in the ED: Temperature 37.9, pulse 115, respiratory rate 18, blood pressure 126/57, with a map of 80, pulse ox 100% on room air.White blood cell count 21.8 with 90.5% neutrophils, now resolved. Acute left upper extremity DVT at site of PICC line. Not present on admission - PICC line removed on 12/20 - Per discussion with hematology (Dr. Travis on 12/[address] Bynum on 12/23) - treat patient with Lovenox given extent of DVT despite possible risk of bleeding FROM HER HHT. -Risks and benefits were discussed with patient on 12/20 -Oral anticoagulation hasn't been started given drain in place was required repositioning and upsizing. May consider initiating NOACs upon discharge or warfarin with Lovenox bridging after Hepatic tube is removed. Normocytic normochromic Anemia requiring transfusions, present on admission - Secondary Gastric and duodenal hereditary hemorrhagic telangiectasia - Followup daily H/H. - Hemoglobin 6.9 on 12/30, transfused 2 PRBCs 12/30. 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 History of Ulcerated gastroesophageal junction, with history of upper GI bleed s /p omental patch - Stable Cachexia, chronic, present on admission, active -Continue to encourage oral intake Chronic constipation, present on admission, ongoing - Continue with stool softeners and enema Hypothyroidism, chronic - Status post partial thyroidectomy - Continue patient's home medication Dispo: The patient does seem to be progressing well and her H&H is currently stable. The patient is at risk for further bleeding and will need to have continued monitoring with possible transfusions once discharged. The patient's H&H does seem to be stable however she has this epigastric pain which should be evaluated by GI as she has a history of gastric perforation. Once the patient is assessed and is able to eat adequately she will be ready for discharge. The patient's drain continues to be functional. Patient's phosphorus continues to decrease which seems to be an indication that the antibiotics are currently working. The patient will be discharged on long-term antibiotic therapy. VTE Prophylaxis: Sub-Q Heparin (Unfractionated) VTE Mechanical Devices: Venous Foot Pump Resuscitation Status: CPR: Attempt Resuscitation Nano Araujo DO January 18, 2017 16:29
[2017-01-18] MEDS ORDERED: Donnatal-Lido-Mylant 1:1:1 15 mL Syringe PO PRN (16:35)
[2017-01-18] MEDS: Sucralfate 1,000 mg Tablet PO SCH ×2 (17:29→21:58)
--- NOTE | 2017-01-18 17:42 | NUR ---
Epigastric discomfort Patient had complaints of a burning sensation in her upper gastric area with breakfast. Pt has hx of ulcerated gastroesophageal junction. PRN medications given. patient reported they were effective. MD notified. MD ordered GI consult for tomorrow morning.
[2017-01-18 21:19] VITALS: BP 123/53; PULSE 88; RESP 16; O2SAT 95
[2017-01-19] VITALS (8 sets, daily range): BP systolic 110–133; BP diastolic 54–72; PULSE 69–89; RESP 10–20; O2SAT 93–97
--- NOTE | 2017-01-19 03:18 | PROG NOTE ---
[address] [address] PROGRESS NOTE PATIENT: STEWART UREÑA : 1935 MR#: [id number] ADMIT: 12/17/2016 JOB ID: [id number] DATE: 01/18/2017 SUBJECTIVE: I was asked to check in again on the patient in regards to some abdominal pain. It sounds like this has actually been going on intermittently for quite some time, even prior to admission, but was particularly bothersome this morning. It is actually a colicky pain in her epigastrium that comes on shortly after p.o. intake and can last for hours. Actually, it does feel similar to the pain that she experienced prior to her perforation, and so this caused quite a bit of concern, and I was therefore asked to re-evaluate. Interestingly, the pain does not come on with every meal and is a little unpredictable for the patient. We discussed the possibility that some of her symptoms could be coming from her history of severe constipation secondary to the uterine pathology causing obstipation, but she has been responsive to the MiraLAX, and even had a couple of bowel movements today. She had an enema yesterday by her report. OBJECTIVE: Vitals are stable. The patient is conversational, in no distress. Alert, oriented, appropriate, cooperative. LABORATORIES: Hemoglobin is up in the 10 range following transfusion. Yesterday, she had a low of 6.6. She has been having some melena of late. ASSESSMENT AND PLAN: This is an 81-year-old female with hereditary hemorrhagic telangiectasia and recurrent gastrointestinal bleeding secondary to this. This has essentially been refractory to endotherapy, and the patient is being supported with transfusion periodically as needed. I expressed concern to the patient that her symptoms could very easily be related to her gallbladder. I, however, offered to pursue a diagnostic esophagogastroduodenoscopy (EGD) tomorrow morning at 9 o'clock with anesthesia support to exclude any mucosal pathology to account for her symptoms. I explained that my focus would not be on her telangiectasia, and she expressed excellent understanding. If the EGD does not identify the smoking gun in reference to her intermittent pains, then I think further evaluation with a HIDA scan would be appropriate. Otherwise, the patient continues to experience ongoing drainage. She has had to have her catheters repositioned a number of occasions to optimize hepatic abscess drainage. Interestingly, the patient remains on both Flagyl and ceftriaxone. Ceftriaxone is particularly notorious for increasing the likelihood of biliary sludge and microlithiasis. If EGD is negative, and this does appear to be related to the gallbladder, perhaps a change in antibiotics may be prudent.
[2017-01-19] MEDS: 0.9% Sodium Chloride 1,000 ML IV SCH (05:42)
[2017-01-19] MEDS ORDERED: Propofol 10,000 mCg/mL 20 mL Inj ONE (06:24)
[2017-01-19] MEDS ORDERED: fentaNYL-PF 50 mCg/mL 2 mL Inj ONE (06:24)
--- NOTE | 2017-01-19 06:28 | NUR ---
Drain flushed pt's drain with 20mL NS, 40mL liquid out from drain during the shift. liquid observed to be green, thin and thick parts, odor present. dressing is C/D/I.
[2017-01-19 06:54] LABS: Mean Corpuscular Hemoglobin 29.2 pg (27.0-35.0); Mean Corpuscular Volume 90.7 fL (81-100)
[2017-01-19] MEDS: Sucralfate 1,000 mg Tablet PO SCH ×4 (07:30→20:01)
[2017-01-19 07:46] LABS: Phosphorus 2.6 mg/dL (2.5-4.9)
[2017-01-19] MEDS: Polyethylene Glycol (PEG) 17 Gm Powder PO SCH (08:30)
--- NOTE | 2017-01-19 09:10 | NUR ---
FERDINAND signed SOHAN Kim
--- NOTE | 2017-01-19 09:13 | NUR ---
Endo Pt. transferred to [facility] at 0913 in a stretcher. Addendum: 01/19/17 at 1037 by XIMENA YOUSSEF RN Post Endo [place]. [place] [facility] [place]. She was alert and HERNANDEZ on arrival. Vital signs stable. Pt. was educated on side effects of sedative medications. Instructed pt. to use call light for assistance before exiting bed. Pt. verbalized understanding.
--- NOTE | 2017-01-19 09:19 | PCM.HPANE ---
Patient Data Date of Service: January 19, 2017 Surgeon Admitting Provider:Gladys Fowler DO Attending Provider:Gladys Fowler DO Primary Care Physician:Macy Baird MD Other Provider: Reason for Visit Hepatic Abscess Mass Ht/WT & BMI Height (Feet): 5 Height (Inches): 3.00 Weight (Kilograms): 41.800 Body Mass Index 16.21 Allergies Coded Allergies: No Known Allergies (Verified , 12/16/16) Past Anesthesia History Anesthesia History: Denies:: Abnormal Airway, Anesthesia Reactions, Difficult Intubation, Fam Anesthesia Reaction, Fam Malignant Hypertherm, Malignant Hyperthermia Diabetes History Hx Diabetes?: No MRSA MRSA: No Medications Reported Medications Polyethylene Glycol 3350 (Miralax)17 Gm Powd.pack17 Gm PO DAILY 12/17/16 Ondansetron ODT 4 Mg Tab.rapdis4 Mg PO q4 hours PRN For Nausea #20 12/17/16 Thyroid,Pork (Freeman Thyroid)60 Mg Kiutgg48 Mg PO DAILY #90 12/17/[address] 20 Mg Tablet.dr20 Mg PO BID #60 12/17/16 Norethindrone/Eth Estradiol (Zenchent)1 Each Tablet1 Tablet PO every 3 days 06/21/16 History History of ENT Problems?: Yes HEENT History: Positive for:: Cataracts Denies:: Abnormal Airway Difficult Intubation Dysphagia Hearing Problem Sinus Problem Denture Type: None Teeth Condition: Within Normal Limits Hx of Heart Problems?: No Cardiovascular History: Denies:: AICD Atrial Fibrillation Cardiac Surgery Chest Pain Congestive Heart Failure Edema Heart Murmur Hypertension Irregular Heartbeat Pacemaker Thrombophlebitis Valvular Heart Disease Hx of Respiratory Problem?: Yes Respiratory History: Positive for:: Pneumonia (age 13) Denies:: Asthma COPD Chest Surgery Cough Dyspnea Emphysema Hemoptysis Tuberculosis Hx Neurologic Problems?: No Neurological History: Positive for:: Dizziness Denies:: CVA Dementia Headaches Seizures Hx of GI Problems?: Yes Other GI Pertinent History: Liver Mass on CT 12/17. Constipation Hx of Problems?: Yes Genitourinary History: Positive for:: Urinary Tract Infection (years ago) Denies:: HX of Hemodialysis Kidney Stones HX of Peritoneal Dialysis: No Female Hx: Denies:: Currently Endometriosis Pelvic Inflammatory Problems with Breasts? Hx Musculoskeletal Problems?: No Musculoskeletal History: Denies:: Joint Replacement Musculoskeletal Trauma Hx of Psycho/Social Problems?: No Psycho Social History: Denies:: Anxiety Bipolar Disorder Hx Depression Suicide Attempt Hx Surgeries?: Yes (thyroidectomy) Hx Any Other Health Problems?: Yes Other History: Positive for:: Hospitalization Thyroid Disease (thyroidectomy) Denies:: Cancer History Blood Transfusions: Positive for:: Blood Transfusions Denies:: Blood Transfuse Reaction Hx Diabetes: No Hx Alcohol Use: Yes ("socially, very rarely")Hx Substance Use: No Smoking Status: Never Smoker Stop/Bang Treated for Sleep Apnea?: No Do You Have a CPAP Machine?: No S-Snoring: Do You Snore Loudly: No T-Tired: feel tired, fatigued: No O-Obsered: Observed not breath: No P-Blood Pressure: treated: No B- Body Mass Index > 35 kg/m2: No A- Age over 50: Yes N- Neck Large Circumference: No G- Gender Male: No SHAREE Total Score: 0 Risk Assessment Category Category 1A: Patient has history of documented sleep apnea, and HAS NOT received any narcotic, sedative or anesthesia administration during this stay. Category 1B: Patient has history of documented sleep apnea, and HAS received any narcotic , sedative or anesthesia administration during this stay Category 2: Patient has SUSPECTED Obstructive Sleep Apnea, and HAS received any narcotic , sedative or anesthesia administration during this stay. Category 3: Patient has SUSPECTED Obstructive Sleep Apnea and HAS NOT received narcotic, sedative or anesthesia administration during this stay. Category 4: Outpatient in Procedural Areas with known sleep apnea or who screen positive for High Risk via the STOP/BANG questionnaire. Exam Exam Vital Signs Vital Signs Date Time Temp Pulse Resp B/P Pulse Ox O2 Delivery O2 Flow Rate FiO2 01/19/17 05:07 36.8 81 16 129/54 95 Room Air General Appearance: Alert, Oriented X3, Cooperative, No Acute Distress HEENT/AIRWAY: MP 2 Lungs: Clear to Auscultation Heart: Exam Unremarkable, Regular Rate/Rhythm Meds/Labs/Diagnostics Admission Meds Current Medications Sucralfate (Carafate) 1,000 mg ACHS PO Last administered on 01/18/17t 21:58; Start 01/18/17 at 17:00 Labs Test 12/16/16 23:25 12/17/16 00:55 12/17/16 06:20 12/17/16 11:20 Troponin T < 0.010ug/L (0.0-0.011) Lipase 23U/L (13-60) Urine Color Nga (YELLOW) Urine Appearance Slightly cloudy Urine pH 5.5 (5.0-8.0) Urine Specific [place] 1.020 (1.003-1.035) Urine Protein Tracemg/dL (NEG,TRACE) Urine Glucose (UA) Negativemg/dL (NEGATIVE) Urine Ketones Tracemg/dL (NEGATIVE) Urine Occult Blood Negative (NEGATIVE) Urine Nitrite Positive (NEGATIVE) Urine Bilirubin Moderate (NEGATIVE) Urine Ictotest Positive (Negative) Urine Urobilinogen 4.0mg/dL (NORMAL) Urine Leukocyte Esterase Negative (NEGATIVE) Urine RBC 0-2/hpf (0-2) Urine WBC 0-5/hpf (0-5) Urine Epithelial Cells Many/hpf (NONE-MOD) Urine Crystals Oxalic acid crystals (NONE Urine Bacteria None/hpf (NONE-FEW) Urine Hyaline Casts None/lpf (NONE) Urine Granular Casts None seen (NONE SEEN) Urine Waxy Casts None seen (NONE SEEN) Urine Red Blood Cell Casts None seen (NONE SEEN) Urine White Blood Cell Casts None seen (NONE SEEN) Urine Mucus Present (None Seen) Urine Trichomonas None seen (NONE SEEN) Urine Yeast None (NONE SEEN) Urine Culture Reflexed Indicated Lactic Acid Level 0.9mmol/L (0.4-2.0) Activated Partial Thromboplast Time 29.6sec (22.8-33.0) Test 12/17/16 15:15 12/30/16 06:35 01/03/17 08:08 01/10/17 06:45 Direct Bilirubin 1.3mg/dL (0.0-0.3) Procalcitonin 0.12ng/mL (0.00-0.08) Magnesium Level 1.8mg/dL (1.6-2.6) Prothrombin Time 10.8sec (8.1-12.5) Prothromb Time International Ratio 1.01ratio Test 01/13/17 06:00 01/19/17 06:25 Neutrophils (%) (Auto) 61.2% (40-74) Lymphocytes (%) (Auto) 20.0% (14-46) Monocytes (%) (Auto) 15.2% (4-12) Eosinophils (%) (Auto) 2.6% (0-5) Basophils (%) (Auto) 0.8% (0-3) White Blood Count 5.6th/mm3 (3.8-10.1) Red Blood Count 3.32mil/mm3 (3.90-5.20) Hemoglobin 9.7g/dL (12.0-15.6) Hematocrit 30.1% (35.0-46.0) Mean Corpuscular Volume 90.7fL (81-100) Mean Corpuscular Hemoglobin 29.2pg (27.0-35.0) Mean Corpuscular Hemoglobin Concent 32.2% (32.0-37.0) Red Cell Distribution Width 17.1% (12.3-15.4) Platelet Count 515bil/L (150-400) Sodium Level 141mEq/L (134-144) Potassium Level 3.4mEq/L (3.5-5.2) Chloride Level 105mEq/L (97-108) Carbon Dioxide Level 25mmol/L (18-29) Blood Urea Nitrogen 6mg/dL (8-27) Creatinine < 0.30mg/dL (0.57-1.00) Estimat Glomerular Filtration Rate 304mL/min (>59) Glucose Level 95mg/dL (60-99) Calcium Level 8.4mg/dL (8.5-10.1) Phosphorus Level 2.6mg/dL (2.5-4.9) Total Bilirubin 0.6mg/dL (0.0-1.2) Aspartate Amino Transf (AST/SGOT) 13U/L (0-50) Alanine Aminotransferase (ALT/SGPT) 9U/L (0-32) Alkaline Phosphatase 370U/L (25-165) Total Protein 4.8g/dL (6.4-8.4) Albumin 2.1g/dL (3.4-5.0) Plan Impression Patient chart reviewed, patient interviewed and anesthestic plan with risks, benefits, and alternatives discussed, and informed consent obtained. NPO per Anesth. Guidelines: Yes ASA Physical Status: ASA3 Severe Disease Anesthetic Plan: GA Bene/Risks/Altern/Consents: Yes HP Complete Prior to Induction: Yes Omar Phillips MD January 19, 2017 09:01
[2017-01-19] MEDS ORDERED: Lactated Ringer's 1,000 ML IV ONE (09:31)
--- NOTE | 2017-01-19 10:03 | PCM.ANEP1 ---
Post Anesthesia Phase 1 PACU Phase 1 Assessment Date of Service: January 19, 2017 Vital Signs Vital Signs Date Time Temp Pulse Resp B/P Pulse Ox O2 Delivery O2 Flow Rate FiO2 01/19/17 09:55 89 13 115/61 97 Nasal Cannula 2 01/19/17 05:07 36.8 81 16 129/54 95 Room Air Anesthetic Administered: GA Level of Alertness: Awake, talking HERNANDEZ's with Equal Strength: Yes Pain: Yes Pain Scale Score: 4 Nausea or Vomiting: No Cardiovascular Function and Hy: Yes Oxygen Delivery: Nasal Cannula Summary IV general anesthesia without airway during EGD. Tolerated well, no signs of aspiration. Alert, oriented shortly following end of procedure with normal, baseline vitals. Omar Phillips MD January 19, 2017 10:03
[2017-01-19] MEDS: Pantoprazole 20 mg ER24 Tablet PO SCH ×2 (10:46→16:29)
--- NOTE | 2017-01-19 10:53 | ENDO ---
[address] [address] ENDOSCOPY PROCEDURE PATIENT: STEWART UREÑA : 1935 MR#: [id number] ADMIT: 12/17/2016 JOB ID: [id number] PROCEDURE: Esophagogastroduodenoscopy. INDICATIONS: An 81-year-old female with abdominal pain, colicky, and intermittent challenges with swallowing, limited ability of p.o. intake. EQUIPMENT: [id number]. SEDATION: Monitored anesthesia. COMPLICATIONS: None identified. PROCEDURE INFO: After the risks and benefits were explained, written and verbal informed consent was obtained. The patient was brought into the endoscopy suite and placed into the left lateral decubitus position. Sedation was achieved as above. The scope was introduced into the mouth through the bite block, and advanced to the second portion of the duodenum. The scope was slowly withdrawn to carefully examine the mucosa for any defects or lesions. Retroflexed views were accomplished in the stomach. The stomach was decompressed. The scope removed from the patient who tolerated the procedure well. FINDINGS: 1. Esophagus: There was no significant pathology throughout the esophagus. No evidence of esophagitis. 2. Duodenum: No ulcers. No mass lesions. There were a few scattered telangiectasia evident in the second portion. Nonbleeding. 3. Stomach: No outlet obstruction. No mass lesions. Again diffuse severe telangiectasia all throughout the body of the stomach for the most part. A couple of these areas demonstrated some spontaneous oozing, but all of this additionally stopped spontaneously without any intervention. Retroflexed views of the LES disclosed a hiatal hernia, but no evidence of mass effect. Within the gastric cardia from the vantage point of GE junction I could see that there was a moderate amount of retained exudate. With some difficulty using biopsy forceps we excavated this away and identified that there was retained suture material that was apparently the nidus for the adherence of this exudate and underlying foreign body reaction. There were 2 areas where there was significant exudate, one of them we could get for the most part cleared away using the forceps. There was a residual almost polypoid look to the retained exudate that measured out to be about 7 or 8 mm that we could not removed without pulling on the suture itself. This was in the 12 o'clock location. In the 5 o'clock location there was a large excavated area, it was difficult to determine whether there was underlying ulcer here. All of this had in essence a bed of exudate. I was able to flip this up with the forceps and then realized that much of it was attached secondary to likely further retained suture material and foreign body reaction. I did not see any mass lesions in this area. ENDOSCOPIC DIAGNOSES: 1. Retained pill debris and exudate at gastric cardia secondary to retained suture material. 2. Hiatal hernia. 3. Gastroduodenal telangiectasia. RECOMMENDATIONS: 1. Dysphagia diet is recommended for now. 2. Continue proton pump inhibitor infusion twice daily. 3. HIDA scan is ordered as I suspect that many of her pain symptoms to be coming from a dysfunctional gallbladder that is likely full of sludge.
[2017-01-19] MEDS: cefTRIAXone Inj 2,000 MG in Dextrose 5% Minibag Plus 50 ML IV SCH (11:33)
--- NOTE | 2017-01-19 12:24 | NUR ---
Social Work: Readiness for d/c Data: Pt is on day 33 of hospitalization. EMR reviewed. Pt discussed in rounds. MD states pt could possibly discharge tomorrow. IP LITIGATION [place]GAL met with pt at bedside and informed pt that [facility] has accepted her and that [facility] has said they could take her pending the IVABX she needs at discharge. Pt states they are undecided if her will go to SNF with her or not. She states she will go to SNF when she is medically able to and they will decide about her as they learn further about his medical condition as he is in the hospital as well. IP LITIGATION [place]GAL will continue to follow. Plan: Pt will d/c to either [facility] or to [facility] (pending IVABX type), possibly tomorrow. PASRR and paperwork in hard chart. IP LITIGATION [place]GAL will continue to follow. SOHAN Kim
[2017-01-19] MEDS ORDERED: KCl 40 mEq/100 mL (CENTRAL) 40 MEQ in IV Premix 1 EACH IV ONE (14:35)
--- NOTE | 2017-01-19 14:40 | PCM.PNMED ---
Subjective Date of Service January 19, 2017 Subjective Patient was seen and examined at bedside today. Patient denies any chest pain, shortness of breath, nausea, vomiting, diarrhea. The patient states that she is feeling better and the addition of the grasshoppers seem to help with her feeding. Patient is scheduled for an EGD later today. Overnight events: None Exam Vital Signs Vital Sign - Last Date Time Temp Pulse Resp B/P Pulse Ox O2 Delivery O2 Flow Rate FiO2 01/19/17 13:10 36.7 70 123/72 93 Room Air 01/19/17 11:22 20 01/19/17 09:55 2 Intake and Output 01/18/17 01/18/17 01/19/17 Cumulative From/Thru 15:00 23:00 07:00 12/16/16 22:37 - 01/19/17 07:00 Intake Total 995 ml 738 ml 74776 ml Output Total 10 ml 420 ml 45328 ml Balance 985 ml 318 ml -1891 ml Intake Oral 300 ml 36308 ml IV Total 995 ml 438 ml 15607 ml Packed Cells 1500 ml Tube Irrigant 110 ml Output Urine Total 400 ml 44854 ml Urine/Stool Mix 203 ml Emesis 50 ml Drainage Total 10 ml 20 ml 1152 ml # Voids 25 # Bowel Movements 0 23 Exam Physical Exam: GEN: Patient was awake, alert, responding appropriately to questions, cachectic HEENT: Pupils equal round and reactive to light, extraocular eye muscles intact , Neck soft supple, trachea midline, nomocephalic/atraumatic CV: +S1/S2, regular rate and rhythm, grade 2/6 systolic murmur auscultated Respiratory: CTAB, no wheezes, rales, rhonchi GI: +bowel sounds x4, soft, compressible, nontender to palpation EXT: no clubbing, cyanosis, edema Neuro: Cranial nerves II-XII grossly intact Psych: mood and affect were appropriate IVs and Medications Medications Reviewed: Medications were reviewed in detail Lab and Diagnostics Result Diagram: 01/19/1762401/19/17624 X-Rays, CTs and MRIs CT Abd / Pelvis Interpretation CONCLUSION: Heterogeneous appearing liver with a focal hypodense area noted in the liver measuring up to 14cm in size. Possible considerations include infection and tumor. Pelvic mass in the region of the uterus. While fibroid is a consideration. Other tumor would be difficult to exclude. Findings suggestion of constipation. Cardiomegaly. 5mm left lower pulmonary nodule. Radiologist: Andrea Singh MD PROCEDURE: 1. Sinogram through existing catheter. 2. Drain exchange and reposition. 3. Conscious sedation x21 minutes. IMPRESSION: Drainage catheter upsizing and repositioning as described above. Pigtail catheter is now within the superior aspect of the abscess cavity, which appears to contain viscous contents. Dictated by: Junito Cardozo M.D. 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 Bynum oncology), found to be liver abscess s/p IR drain/ertapenem for kleb/ ecoli bacteremia/abscess. Presented to the ED complaining of upper abdominal pain in achy bandlike. no associated UTIs. Escherichia coli and klebsiella Acute liver abscess WITH BACTEREMIA , present on admission. Ongoing -Liver drain output was minimal but on repeat imaging 12/30 shows persistence of liver abscess , Underwent successful repositioning and upsizing of liver abscess drain 12/31. Now draining. Continue flushing the drain every shift - CT-guided drain placement for a hepatic abscess on 12/17/[address] Joel .repositioning and upsizing of liver abscess drain 12/[address] Cardozo - Discontinue ertapenem (12/20/16-01/16/17) start IV Rocephin and Flagyl. Cipro was discontinued yesterday (01/15/17) per recommendation of Dr. Webber -Patient had on and off fevers a few days prior. Now resolved, afebrile for past few days. Blood culture sent 01/01 no growth -no echo since not gram positive, unlikely endocarditis risk - Based on CT findings, demonstrating only a 20% reduction in abscess size, I believe the replacement of hepatic tube is indicated at this time to ensure complete resolution. This was the opinion of infectious disease and field support specialist in addition as such we proceeded with this plan. - PEG tube now replaced, drainage has been suboptimal considering size of abscess recently assessed on CT. Continued poor output overnight with worsening tenderness/pain in this area - Plan to repeat CT to assess for possible hemtoma related to placement and confirm location of tube related to abscess given poor output. - Pt remains poor condidate for suregry, but this may be revisited by entire treating team tomorrow, including PT's own GI physician, Dr Sam. - Replacement of liver drainage tube complete 01/14/17 Epigastric pain -Continue to use Maalox prior to eating -Start sucralfate -Add Grasshopper/GI cocktail prior to eating for comfort -Continue omeprazole -EGD scheduled for later today -Dr. Sam following Hypokalemia -Patient's potassium is 3.4 today -Replete with IV potassium 40 mEq 1 dose -Continue to monitor Acute sepsis, present on admission, clinically/leucocytosis resolved. - Initial Vital signs in the ED: Temperature 37.9, pulse 115, respiratory rate 18, blood pressure 126/57, with a map of 80, pulse ox 100% on room air.White blood cell count 21.8 with 90.5% neutrophils, now resolved. Acute left upper extremity DVT at site of PICC line. Not present on admission - PICC line removed on 12/20 - Per discussion with hematology (Dr. Travis on 12/[address] Bynum on 12/23) - treat patient with Lovenox given extent of DVT despite possible risk of bleeding FROM HER HHT. -Risks and benefits were discussed with patient on 12/20 -Oral anticoagulation hasn't been started given drain in place was required repositioning and upsizing. May consider initiating NOACs upon discharge or warfarin with Lovenox bridging after Hepatic tube is removed. Normocytic normochromic Anemia requiring transfusions, present on admission - Secondary Gastric and duodenal hereditary hemorrhagic telangiectasia - Followup daily H/H. - Hemoglobin 6.9 on 12/30, transfused 2 PRBCs 12/30. 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 History of Ulcerated gastroesophageal junction, with history of upper GI bleed s /p omental patch - Stable Cachexia, chronic, present on admission, active -Continue to encourage oral intake Chronic constipation, present on admission, ongoing - Continue with stool softeners and enema Hypothyroidism, chronic - Status post partial thyroidectomy - Continue patient's home medication - Follow up TSH Dispo: The patient does seem to be progressing well and her H&H is currently stable however she is trending down again which is to be expected. We will follow-up with Dr. Sam in regards to the patient's EGD later today. Once the patient is able to tolerate her diet and seems to be stable with her H&H she will be able to be discharged to [facility]. The patient's alkaline phosphatase continues to trend downwards leading us to believe that the drain is still working along with IV antibiotics. VTE Prophylaxis: Sub-Q Heparin (Unfractionated) VTE Mechanical Devices: Venous Foot Pump Resuscitation Status: CPR: Attempt Resuscitation Nano Araujo DO January 19, 2017 14:40
[2017-01-19] MEDS ORDERED: KCl 40 mEq/500 mL D5W (Peripheral Line) IV ONE ×2 (14:45)
--- NOTE | 2017-01-19 18:37 | NUR ---
Liver drain, activity, and Potassium Only 15 mL output (greenish thick fluid) for this shift. Pt. denied discomfort. She is ambulatory to bathroom with SBA (for IV pole). Pt. is getting KCL IV infusion right now. Potassium level 3.4.
[2017-01-20] MEDS: 0.9% Sodium Chloride 1,000 ML IV SCH (05:45)
[2017-01-20 05:48] VITALS: BP 119/55; PULSE 66; RESP 18; O2SAT 95
--- NOTE | 2017-01-20 05:54 | NUR ---
Pain: Pt c/o IV site pain while Potassium was infusing; infusion rate slowed down by dayshift RN, Tylenol administered for pain; effective. Pt slept most of the night, denies SOB and chest pain, pleasant and cooperative with care.
--- NOTE | 2017-01-20 08:26 | PROG NOTE ---
[address] [address] PROGRESS NOTE PATIENT: STEWART UREÑA : 1935 MR#: [id number] ADMIT: 12/17/2016 JOB ID: [id number] DATE: 01/20/2017 SUBJECTIVE: The patient is an 81-year-old woman with hereditary hemorrhagic telangiectasia, with a long history of bleeding from upper intestinal tract telangiectasias. She was hospitalized with a right liver abscess following prior surgical repair of gastric perforation. Her percutaneous drain in the right hepatic lobe continues to drain. She remains very weak. Oral intake is limited, with significant discomfort following even small meals. Repeat upper endoscopy with Dr. Sam yesterday showed diffuse severe telangiectasias throughout the body of the stomach with a few areas of spontaneous oozing. Incidental note was made of retained pill debris and exudate at the gastric cardia. There was a small hiatal hernia. She is on a dysphagia diet, and a proton pump inhibitor infusion twice daily. HIDA scan has been requested to evaluate a probable dysfunctional gallbladder. OBJECTIVE: Vitals: T 36.9, P 66, R 18, BP 119/55. HEENT: Conjunctivae slightly pale. Chest: Basilar crackles. Cardiac exam: Regular rate and rhythm with normal S1, S2. Abdomen: Soft. Active bowel tones. Right hepatic drain is intact. Extremities: Extensive muscular wasting. 2+ distal pulses. LABORATORIES: Hemoglobin 9.3, hematocrit 29.3%. ASSESSMENT AND PLAN: 1. Hereditary hemorrhagic telangiectasia: No indication for transfusion support today. Upper endoscopy yesterday showed severe telangiectasias, with a small amount of oozing, but no evidence of severe active bleed or other pathology. Agree with Dr. Sam's assessment. Await upcoming HIDA scan. 2. Right liver abscess: Abscess culture was positive for both Escherichia coli and Klebsiella. She remains on broad-spectrum antibiotics per Dr. Webber.
[2017-01-20] MEDS: Pantoprazole 20 mg ER24 Tablet PO SCH ×2 (11:11→17:34)
[2017-01-20] MEDS: Sucralfate 1,000 mg Tablet PO SCH ×4 (11:11→19:52)
[2017-01-20] MEDS: Polyethylene Glycol (PEG) 17 Gm Powder PO SCH (11:11)
--- NOTE | 2017-01-20 12:18 | PCM.PNMED ---
Subjective Date of Service January 20, 2017 Subjective Patient was seen and examined at bedside today. Patient denies any chest pain, shortness of breath, nausea, vomiting, diarrhea. Patient states that she feels like she is doing much better than she has in a while. Patient still complains of some mild dyspepsia but feels that this has improved. Patient states that having the grass Hopper prior to eating has helped. Overnight events: None Exam Vital Signs Vital Sign - Last Date Time Temp Pulse Resp B/P Pulse Ox O2 Delivery O2 Flow Rate FiO2 01/20/17 05:48 36.9 66 18 119/55 95 Room Air 01/19/17 09:55 2 Intake and Output 01/19/17 01/19/17 01/20/17 Cumulative From/Thru 15:00 23:00 07:00 12/16/16 22:37 - 01/20/17 06:49 Intake Total 100 ml 1381 ml 811 ml 26566 ml Output Total 365 ml 380 ml 77609 ml Balance 100 ml 1016 ml 431 ml -344 ml Intake Oral 716 ml 120 ml 79603 ml IV Total 100 ml 665 ml 691 ml 56053 ml Packed Cells 1500 ml Tube Irrigant 110 ml Output Urine Total 350 ml 350 ml 40770 ml Urine/Stool Mix 203 ml Emesis 50 ml Drainage Total 15 ml 30 ml 1197 ml # Voids 25 # Bowel Movements 2 1 26 Exam Physical Exam: GEN: Patient was awake, alert, responding appropriately to questions HEENT: Pupils equal round and reactive to light, extraocular eye muscles intact , Neck soft supple, trachea midline, nomocephalic/atraumatic CV: +S1/S2, regular rate and rhythm, grade 2/6 systolic murmur auscultated Respiratory: CTAB, no wheezes, rales, rhonchi GI: +bowel sounds x4, soft, compressible, nontender to palpation, liver abscess drain in place still currently draining. EXT: no clubbing, cyanosis, edema Neuro: Cranial nerves II-XII grossly intact Psych: mood and affect were appropriate IVs and Medications Medications Reviewed: Medications were reviewed in detail Lab and Diagnostics Result Diagram: 01/20/1741 01/20/17640 X-Rays, CTs and MRIs CT Abd / Pelvis Interpretation CONCLUSION: Heterogeneous appearing liver with a focal hypodense area noted in the liver measuring up to 14cm in size. Possible considerations include infection and tumor. Pelvic mass in the region of the uterus. While fibroid is a consideration. Other tumor would be difficult to exclude. Findings suggestion of constipation. Cardiomegaly. 5mm left lower pulmonary nodule. Radiologist: Andrea Singh MD PROCEDURE: 1. Sinogram through existing catheter. 2. Drain exchange and reposition. 3. Conscious sedation x21 minutes. IMPRESSION: Drainage catheter upsizing and repositioning as described above. Pigtail catheter is now within the superior aspect of the abscess cavity, which appears to contain viscous contents. Dictated by: Junito Cardozo M.D. 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 Bynum oncology), found to be liver abscess s/p IR drain/ertapenem for kleb/ ecoli bacteremia/abscess. Presented to the ED complaining of upper abdominal pain in achy bandlike. no associated UTIs. Escherichia coli and klebsiella Acute liver abscess WITH BACTEREMIA , present on admission. Ongoing -Liver drain output was minimal but on repeat imaging 12/30 shows persistence of liver abscess , Underwent successful repositioning and upsizing of liver abscess drain 12/31. Now draining. Continue flushing the drain every shift - CT-guided drain placement for a hepatic abscess on 12/17/[address] Joel .repositioning and upsizing of liver abscess drain 12/[address] Cardozo - Discontinue ertapenem (12/20/16-01/16/17) start IV Rocephin and Flagyl. Cipro was discontinued yesterday (01/15/17) per recommendation of Dr. Webber -Patient had on and off fevers a few days prior. Now resolved, afebrile for past few days. Blood culture sent 01/01 no growth -no echo since not gram positive, unlikely endocarditis risk - Based on CT findings, demonstrating only a 20% reduction in abscess size, I believe the replacement of hepatic tube is indicated at this time to ensure complete resolution. This was the opinion of infectious disease and internet marketing specialist in addition as such we proceeded with this plan. - PEG tube now replaced, drainage has been suboptimal considering size of abscess recently assessed on CT. Continued poor output overnight with worsening tenderness/pain in this area - Plan to repeat CT to assess for possible hemtoma related to placement and confirm location of tube related to abscess given poor output. - Pt remains poor condidate for suregry, but this may be revisited by entire treating team tomorrow, including PT's own GI physician, Dr Sam. - Replacement of liver drainage tube complete 01/14/17 Epigastric pain -Continue to use Maalox prior to eating -Start sucralfate -Add Grasshopper/GI cocktail prior to eating for comfort -Continue omeprazole -EGD yesterday showed telangiectasias actively bleeding but no signs of gastric ulcers - HIDA Scan today -Dr. Sam following Hypokalemia (resolved) -Patient's potassium is 3.4 (01/19/2017) today potassium is normalized to 3.9 -Replete with IV potassium 40 mEq 1 dose (01/19/2017) -Continue to monitor Acute sepsis, present on admission, clinically/leucocytosis resolved. - Initial Vital signs in the ED: Temperature 37.9, pulse 115, respiratory rate 18, blood pressure 126/57, with a map of 80, pulse ox 100% on room air.White blood cell count 21.8 with 90.5% neutrophils, now resolved. Acute left upper extremity DVT at site of PICC line. Not present on admission - PICC line removed on 12/20 - Per discussion with hematology (Dr. Travis on 12/[address] Bynum on 12/23) - treat patient with Lovenox given extent of DVT despite possible risk of bleeding FROM HER HHT. -Risks and benefits were discussed with patient on 12/20 -Oral anticoagulation hasn't been started given drain in place was required repositioning and upsizing. May consider initiating NOACs upon discharge or warfarin with Lovenox bridging after Hepatic tube is removed. Normocytic normochromic Anemia requiring transfusions, present on admission - Secondary Gastric and duodenal hereditary hemorrhagic telangiectasia - Followup daily H/H. - Hemoglobin 6.9 on 12/30, transfused 2 PRBCs 12/30. 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 History of Ulcerated gastroesophageal junction, with history of upper GI bleed s /p omental patch - Stable Cachexia, chronic, present on admission, active -Continue to encourage oral intake Chronic constipation, present on admission, ongoing - Continue with stool softeners and enema Hypothyroidism, chronic - Status post partial thyroidectomy - Continue patient's home medication - Follow up TSH Dispo: The patient seems to be stabilizing. At this time the patient will be discharged to [facility] once she is stable with weekly H&H checks and possible transfusions. The patient will have a HIDA scan later today in order to determine if her dyspepsia is being caused by the gallbladder or not. The patient is currently on ceftriaxone and according to Dr. Sam ceftriaxone can sometimes cause biliary sludge and the patient's antibiotics may need to be changed once again. We will follow-up with more changes if necessary based on the HIDA scan. VTE Prophylaxis: Sub-Q Heparin (Unfractionated) VTE Mechanical Devices: Intermittant Pneumatic CD Resuscitation Status: CPR: Attempt Resuscitation Nano Araujo DO January 20, 2017 12:18
--- NOTE | 2017-01-20 13:49 | NUR ---
Off floor Patient off floor at 1345 by wheelchair to [facility] for HIDA scan. Chart with patient, Vitals stable, denies pain and in no apparent distress.
--- NOTE | 2017-01-20 14:27 | NUR ---
Assumed care Rec'd report from Cesar Laughlin RN at 1420. Pt is still off floor for test.
--- NOTE | 2017-01-20 16:30 | NUR ---
Back on unit Pt back on unit, assisted from w/c to bed. Pt A&O, denies any pain/discomfort.
[2017-01-20 16:33] VITALS: BP 163/70; PULSE 90; RESP 20; O2SAT 96
--- NOTE | 2017-01-20 17:12 | DRSVH ---
PROCEDURE: NM HIDA SCAN WITH CCK PHARMACEUTICAL: 5.2 mCi Tc-99m mebrofenin IV; Ensure Plus by mouth. INDICATIONS: ABDOMINAL PAIN. TECHNIQUE: Following intravenous administration of Tc-99m mebrofenin, sequential anterior abdominal images were obtained. To evaluate the contractile response of the gallbladder in response to Ensure Plus was giv en by mouth approximately 60 minutes after the administration of the radiopharmaceutical. Sequential imaging was continued for 30 minutes after the start of CCK infusion. Gallbladder ejection fraction was calculated. COMPARISON: None. FINDINGS: Biliary scan: There is normal tracer uptake and excretion by the liver. There is normal visualizati on of the intrahepatic ducts, common bile duct, and gallbladder. There is normal tracer transit into the duodenum. CCK stimulation: There is normal contractile response of the gallbladder to CCK infusion. The calcu lated gallbladder ejection fraction is 70%; normal values are above 33%. It has been shown that any patient abdominal pain after CCK administration is related to the rate of CCK injection, rather than to any underlying gallbladder disease (Clinical Nuclear Medicine 2012; 37: 63-70. Journal of Nuclear Medicine 2014; 55: 1-9). IMPRESSION: 1. Normal filling of gallbladder. No evidence for acute cholecystitis. 2. Normal contractile response of gallbladder to CCK infusion. Dictated by: Tarik Sin M.D. on 01/20/2017 at 17:05 Approved by: Tarik Sin M.D. on 01/20/2017 at 17:11
[2017-01-20] MEDS: cefTRIAXone Inj 2,000 MG in Dextrose 5% Minibag Plus 50 ML IV SCH (17:34)
--- NOTE | 2017-01-20 17:35 | PROG NOTE ---
[address] [address] PROGRESS NOTE PATIENT: STEWART UREÑA : 1935 MR#: [id number] ADMIT: 12/17/2016 JOB ID: [id number] DATE: 01/20/2017 REASON FOR FOLLOWUP: Polymicrobial bacteremia secondary to liver abscess. INTERVAL HISTORY: Over the weekend, the patient has had some epigastric pain but, in general, she has felt better than last week. She has no fevers, no chills, no cough and no shortness of breath. She does not have any pain in her right upper quadrant at this point, despite the ongoing drain which is producing fair amounts of purulent material. PHYSICAL EXAMINATION: Reveals an afebrile woman. Temperature 36.9, pulse 66, respiratory rate 18, blood pressure 119/55, saturating well on room air. Examination of the mental status reveals that she is brighter and perkier than previously and appears in no distress. Oral cavity negative. Lungs clear. Abdomen without tenderness. A drain present in the right upper quadrant. LABORATORIES: Include a white count of 5600, her alk phos continues to decline. It is now 370. ALT and AST are normal. Creatinine less than 0.03. Urinalysis without white cells. No new micro is available. IMAGING: No new imaging is available. I reviewed the notes from Dr. Sam over the weekend. Dr. Sam noted the risk of ceftriaxone in terms of causing gallbladder sludge. An EGD was also performed over the weekend which showed retained pill debris and exudate in the stomach related to retained suture material. IMPRESSION: This patient has a polymicrobial liver abscess which is resolving very slowly with multiple drains as well as appropriately directed antibiotics. The optimal antibiotic here is undoubtedly ertapenem, however, were not able to continue ertapenem and we therefore were forced to switch it last week to a combination of ceftriaxone and Flagyl. The switch was made on January 16. I do not believe the patient's right upper quadrant discomfort is related to gallbladder sludge due to ceftriaxone, as the symptom was present before we ever made the switch to ceftriaxone and it usually is a cumulative process with long-term doses of ceftriaxone that takes place over a much longer period of time than the three or four days she has been receiving it. Nonetheless, if we do see evidence of gallbladder sludge on an imaging study that was not previously present, then we could switch once again with antibiotics, but the optimal agent here for coverage of both gram-negative rods and anaerobes would simply be ertapenem which we left only because of concerns about cost at nursing homes. RECOMMENDATIONS: 1. Will continue with the ceftriaxone and Flagyl for the time being. 2. We will consider a switch off of these antibiotics if there is evidence of gallbladder sludge or issues on the HIDA scan or ultrasound.
--- NOTE | 2017-01-20 18:37 | NUR ---
drain Cook drain to R abd drained with a total output of 25ml (AM RN flushed 20ml) so true output of 5ml this shift. This RN flushed drain with 20ml after emptied.
[2017-01-20 20:06] VITALS: BP 136/61; PULSE 78; RESP 20; O2SAT 97
--- NOTE | 2017-01-20 20:47 | PROG NOTE ---
[address] [address] PROGRESS NOTE PATIENT: STEWART UREÑA : 1935 MR#: [id number] ADMIT: 12/17/2016 JOB ID: [id number] DATE: 01/20/2017 SUBJECTIVE: Following the endoscopy, patient actually feels quite a bit improved. This is interesting in that we cleared out a significant amount of debris retained at the level of her prior surgery just south of the GE junction. HIDA scan was accomplished and within normal limits. OBJECTIVE: Vital signs are stable. Blood pressure up a little bit. Still has bilious drainage in her transhepatic drain. LABS: H and H are stable. TSH is elevated. 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 Continue monitoring. Transfusion as necessary. Continue sucralfate and pantoprazole along with dysphagia diet. I would defer thyroid management to her primary service. At this point, she continues to leak bile into her transhepatic abscess drain. This is certainly small volume, every 24 hours, but fairly consistent small volume, and at this point in that she has failed removal before, I would be concerned that she would have reaccumulation of intrahepatic biloma. Her HIDA scan shows normal flow of tracer down into the duodenum. I will discuss the case with GI down at [facility] to see if they have any ideas. The patient is probably not a good candidate for an attempt at surgical treatment for the biloma. Not convinced that biliary sphincterotomy and/or stenting would be of great help. That said, I will attempt to discuss the case with Dr. Dawson this evening.
[2017-01-21] MEDS: 0.9% Sodium Chloride 1,000 ML IV SCH ×2 (00:37→17:10)
[2017-01-21 06:04] VITALS: BP 115/74; PULSE 72; RESP 20; O2SAT 96
--- NOTE | 2017-01-21 07:35 | NUR ---
IV: Pt c/o IV leaking and pain; IV removed, RN passed to dayshift to address.
[2017-01-21] MEDS: Polyethylene Glycol (PEG) 17 Gm Powder PO SCH (08:30)
[2017-01-21] MEDS: Pantoprazole 20 mg ER24 Tablet PO SCH ×2 (09:13→17:12)
[2017-01-21] MEDS: Sucralfate 1,000 mg Tablet PO SCH ×4 (09:13→21:20)
--- NOTE | 2017-01-21 15:00 | PROG NOTE ---
[address] [address] PROGRESS NOTE PATIENT: STEWART UREÑA : 1935 MR#: [id number] ADMIT: 12/17/2016 JOB ID: [id number] DATE: 01/21/2017 INFECTIOUS DISEASE FOLLOW UP NOTE: REASON FOR FOLLOWUP: Liver abscess with polymicrobial bacteremia. INTERVAL HISTORY: Overnight, the patient reports she continues to actually feel better. She has less upper abdominal and right upper quadrant pain, and in fact, almost none today. No associated fevers, chills. No pulmonary symptoms. She is able to eat and drink quite well. PHYSICAL EXAMINATION: Reveals an afebrile woman, temperature 36, pulse 72, respiratory rate 20, blood pressure 115/74, saturating 96% on room air. She is in no acute distress. Oral cavity negative. Lungs clear. Abdomen without any tenderness whatsoever. Right upper quadrant drain continues to drain material which does suspiciously look like bile or at least bile-stain. Remainder of the examination unchanged. She did lose her IV in her right upper extremity which has prompted a questionable what to do next. LABORATORIES: Include a white count last checked two days ago, 5400, a creatinine today less than 0.3. No new cultures or x-rays are available except for the HIDA scan that was done yesterday which was normal. IMPRESSION: This patient has a polymicrobial liver abscess, which has decreased in size only fairly minimally despite 5-1/2 days in the hospital. She currently has a drain in place and there is concerns that there may be bile leakage into this drain and the possible formation of a biloma if the drain were to be removed. In terms of her antibiotic management, we continue with IV antibiotic as long as that is feasible. I had initially hoped to switch her to Cipro which would be very active against both the gram-negative bacteria as well as some Flagyl for the anaerobes that are likely present but the patient failed to tolerate Cipro at all and so I stopped it. She is now on ceftriaxone IV once a day and Flagyl which is a reasonable alternative to ertapenem which would have been preferable except it is apparently too expensive for a prison facility. At this point, she has lost her IV and I think the optimal choice would be to replace on IV such as a midline or PICC or even just a series of peripheral IVs and continue ceftriaxone and oral Flagyl until we see a substantial decrease in the size of the abscess. If that is not possible, an oral option would be Augmentin as a primary agent in a dose of 875 b.i.d. perhaps combined with another 500 mg of amoxicillin 500 b.i.d. to basically produce a souped up version of Augmentin with more activity. Another option might be Septra plus Flagyl but I am not enthusiastic about using trimethoprim sulfamethoxazole in an elderly patient. RECOMMENDATIONS: 1. If possible I would continue with either ertapenem once a day or ceftriaxone IV once a day plus oral Flagyl. 2. If an oral regimen is needed, we could switch to Augmentin 875 p.o. b.i.d. plus amoxicillin 500 p.o. b.i.d. or conceivably Bactrim plus Flagyl b.i.d. but I would not be so enthusiastic. 3. I have placed a call to Dr. Sam to discuss these and other issues and I have also discussed the case in person with the hospitalist this afternoon.
--- NOTE | 2017-01-21 15:19 | NUR ---
Social Work: Readiness for d/c Data: Pt is on day 35 of hospitalization. EMR reviewed. Pt discussed in rounds. MD states pt could possibly discharge tomorrow pending GI consult. PT is recommending SNF and Pt is accepted at [facility]. Pt to discharge to [facility] when medically stable. No further needs assessed. SW will continue to follow. Assessment: Pt who is independent at baseline and would benefit from SNF. Plan: Pt will d/c to [facility] when medically ready, possibly tomorrow. PASRR and paperwork in hard chart. SW will continue to follow. SOHAN Russell
--- NOTE | 2017-01-21 15:31 | NUR ---
NUTRITION FOLLOW UP: Assess: 81 YO F with liver abscess, with polymicrobial bacteremia, following prior surgical repair of gastric perforation. Pt with percutaneous drain in the right hepatic lobe. There are at least two loculated lesions in the liver. PO intake continues to be variable at 0-75% of meals. PMHx: Ulcerated gastroesophageal junction, Irregular gastroesophageal junction, Gastric and duodenal hereditary hemorrhagic telangiectasia, Hypothyroid, malnutrition, uterine fibroid. LABS: Reviewed. Alb 2.1. MEDICATIONS: Reviewed. DIET: Dysphagia Mechanical. Ensure all trays. PO intake 0-75% trays. GI: BM x 3 (01/20). ANTHROPOMETRICS: Current wt: 40.1 kg (01/01). Admit Wt: (12/17) 41.5 kg (standing scale) Past Admit Wt: 38.5 kg (Bed scale) IBW: 52.3 kg. UBW (November): 54 kg. Severe wt loss noted in past, but wt appears stable with slight increase over the past 3 months. ESTIMATED NEEDS: Malnutrition Calories: 0140-9840 kcal/day (30-35 kcal/kg IBW) Protein: 65-80 g/day (1.2-1.5 g/kg IBW) NUTRITION DIAGNOSIS: 1) Severe malnutrition related to chronic illness as evidenced by variable wt, visible loss of LBM/ fat - PERSISTS. 2) Inadequate oral intake related to altered GI function as evidence by early satiety, BMI of 15.7 - PERSISTS. INTERVENTION: 1) Continue to send Ensure on all trays. 2) Pt has received high calorie/high protein education on 09/11/16 and 11/05/16. MONITOR/EVALUATE: PO intake, labs, weights, nutrition status. Follow per high nutrition risk guidelines.
--- NOTE | 2017-01-21 15:57 | PCM.PNMED ---
Subjective Date of Service January 21, 2017 Subjective Patient was seen and examined at bedside today. Patient denies any chest pain, shortness of breath, nausea, vomiting, diarrhea. Overnight events: None Exam Vital Signs Vital Sign - Last Date Time Temp Pulse Resp B/P Pulse Ox O2 Delivery O2 Flow Rate FiO2 01/21/17 06:04 36.0 72 20 115/74 96 Room Air 01/19/17 09:55 2 Intake and Output 01/20/17 01/20/17 01/21/17 Cumulative From/Thru 15:00 23:00 07:00 12/16/16 22:37 - 01/21/17 06:25 Intake Total 800 ml 250 ml 81984 ml Output Total 5 ml 700 ml 81251 ml Balance 795 ml -450 ml 1 ml Intake Oral 300 ml 250 ml 61165 ml IV Total 75079 ml TPN/PPN 500 ml 500 ml Packed Cells 1500 ml Tube Irrigant 110 ml Output Urine Total 700 ml 90005 ml Urine/Stool Mix 203 ml Emesis 50 ml Drainage Total 5 ml 1202 ml # Voids 25 # Bowel Movements 2 28 Exam Physical Exam: GEN: Patient was awake, alert, responding appropriately to questions cachectic, HEENT: Pupils equal round and reactive to light, extraocular eye muscles intact , Neck soft supple, trachea midline, nomocephalic/atraumatic CV: +S1/S2, regular rate and rhythm, systolic murmur auscultated Respiratory: CTAB, no wheezes, rales, rhonchi GI: +bowel sounds x4, soft, compressible, nontender to palpation, liver abscess drainage tube in place still currently draining area of incision non- erythematous nontender to palpation EXT: no clubbing, cyanosis, edema Neuro: Cranial nerves II-XII grossly intact Psych: mood and affect were appropriate IVs and Medications Medications Reviewed: Medications were reviewed in detail Lab and Diagnostics Result Diagram: 01/21/1764401/21/17644 X-Rays, CTs and MRIs CT Abd / Pelvis Interpretation CONCLUSION: Heterogeneous appearing liver with a focal hypodense area noted in the liver measuring up to 14cm in size. Possible considerations include infection and tumor. Pelvic mass in the region of the uterus. While fibroid is a consideration. Other tumor would be difficult to exclude. Findings suggestion of constipation. Cardiomegaly. 5mm left lower pulmonary nodule. Radiologist: Andrea Singh MD PROCEDURE: 1. Sinogram through existing catheter. 2. Drain exchange and reposition. 3. Conscious sedation x21 minutes. IMPRESSION: Drainage catheter upsizing and repositioning as described above. Pigtail catheter is now within the superior aspect of the abscess cavity, which appears to contain viscous contents. Dictated by: Junito Cardozo M.D. 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 Bynum oncology), found to be liver abscess s/p IR drain/ertapenem for kleb/ ecoli bacteremia/abscess. Presented to the ED complaining of upper abdominal pain in achy bandlike. no associated UTIs. Escherichia coli and klebsiella Acute liver abscess WITH BACTEREMIA , present on admission. Ongoing -Liver drain output was minimal but on repeat imaging 12/30 shows persistence of liver abscess , Underwent successful repositioning and upsizing of liver abscess drain 12/31. Now draining. Continue flushing the drain every shift - CT-guided drain placement for a hepatic abscess on 12/17/[address] Jeol .repositioning and upsizing of liver abscess drain 12/[address] Cardozo - Discontinue ertapenem (12/20/16-01/16/17) start IV Rocephin and Flagyl. Cipro was discontinued yesterday (01/15/17) per recommendation of Dr. Webber -Patient had on and off fevers a few days prior. Now resolved, afebrile for past few days. Blood culture sent 01/01 no growth -no echo since not gram positive, unlikely endocarditis risk - Based on CT findings, demonstrating only a 20% reduction in abscess size, I believe the replacement of hepatic tube is indicated at this time to ensure complete resolution. This was the opinion of infectious disease and oncology physician in addition as such we proceeded with this plan. - PEG tube now replaced, drainage has been suboptimal considering size of abscess recently assessed on CT. Continued poor output overnight with worsening tenderness/pain in this area - Plan to repeat CT to assess for possible hemtoma related to placement and confirm location of tube related to abscess given poor output. - Pt remains poor condidate for suregry, but this may be revisited by entire treating team tomorrow, including PT's own GI physician, Dr Sam. - Replacement of liver drainage tube complete 01/14/17 Epigastric pain -Continue to use Maalox prior to eating -Start sucralfate -Add Grasshopper/GI cocktail prior to eating for comfort -Continue omeprazole -EGD yesterday showed telangiectasias actively bleeding but no signs of gastric ulcers - HIDA Scan within normal limits -Dr. Sam following Hypokalemia (resolved) -Patient's potassium is 3.4 (01/19/2017) today potassium is normalized to 3.9 -Replete with IV potassium 40 mEq 1 dose (01/19/2017) -Continue to monitor Acute sepsis, present on admission, clinically/leucocytosis resolved. - Initial Vital signs in the ED: Temperature 37.9, pulse 115, respiratory rate 18, blood pressure 126/57, with a map of 80, pulse ox 100% on room air.White blood cell count 21.8 with 90.5% neutrophils, now resolved. Acute left upper extremity DVT at site of PICC line. Not present on admission - PICC line removed on 12/20 - Per discussion with hematology (Dr. Travis on 12/[address] Bynum on 12/23) - treat patient with Lovenox given extent of DVT despite possible risk of bleeding FROM HER HHT. -Risks and benefits were discussed with patient on 12/20 -Oral anticoagulation hasn't been started given drain in place was required repositioning and upsizing. May consider initiating NOACs upon discharge or warfarin with Lovenox bridging after Hepatic tube is removed. Normocytic normochromic Anemia requiring transfusions, present on admission - Secondary Gastric and duodenal hereditary hemorrhagic telangiectasia - Followup daily H/H. - Hemoglobin 6.9 on 12/30, transfused 2 PRBCs 12/30. 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 History of Ulcerated gastroesophageal junction, with history of upper GI bleed s /p omental patch - Stable Cachexia, chronic, present on admission, active -Continue to encourage oral intake Chronic constipation, present on admission, ongoing - Continue with stool softeners and enema Hypothyroidism, chronic - Status post partial thyroidectomy - Continue patient's home medication - Follow up TSH Dispo: The patient seems to be stabilizing. At this time the patient will be discharged to [facility] once she is stable with weekly H&H checks and possible transfusions. The patient should remain on IV ceftriaxone and oral Flagyl daily aspirin recommendation by Dr. Webber (this was discussed with Dr. Webber earlier today). Will follow up with Dr. Sam as he potentially wants to transfer the patient to [facility]. VTE Prophylaxis: Sub-Q Heparin (Unfractionated) Resuscitation Status: CPR: Attempt Resuscitation Nano Araujo DO January 21, 2017 15:57
[2017-01-21 16:11] VITALS: BP 174/66; PULSE 83; O2SAT 97
[2017-01-21] MEDS: cefTRIAXone Inj 2,000 MG in Dextrose 5% Minibag Plus 50 ML IV SCH (17:13)
--- NOTE | 2017-01-21 18:50 | NUR ---
P: patient did not want to stay in bed all day. States she needed to walk the hallway. I: Ambulated with the patient around the floor one time. Stand-by assist. E: Patient tolerated activity quite well, moving at a good pace. Was a stand-by assist with no trouble. Patient got back into bed and is resting at this time. S: bed down and locked, side rails up x2, call light within reach, non-slip socks on
[2017-01-21 19:54] VITALS: BP 113/53; PULSE 70; RESP 20; O2SAT 96
--- NOTE | 2017-01-21 20:18 | PROG NOTE ---
[address] [address] PROGRESS NOTE PATIENT: STEWART UREÑA : 1935 MR#: [id number] ADMIT: 12/17/2016 JOB ID: [id number] DATE: 01/21/2017 SUBJECTIVE: The patient continues to eat well, perhaps better than she has in a long time today. Unfortunately, the transhepatic abscess drain continues to put out green bile. Since this morning, another 30 cc were removed. I spoke with Albert fisher at [facility] about her case and he suggested discussing with one of our interventional radiologists as to whether or not contrast by way of the abscess drain could be instilled and imaged to determine whether there is any element of direct communication with the biliary tree. If there is, then the patient may be amenable to some form of internal drainage catheter. In that event, this could be conceivably accomplished by way of the interventional radiologist if a wire and catheter could be directed into the biliary tree. Alternatively, conventional ERCP might be an option. If, however, there is no communication with the biliary tree, then at some point we are simply going to have to consider removing the drain and following the patient for signs or symptoms of reaccumulation clinically. OBJECTIVE: Vitals stable. Blood pressure up a little bit. The patient otherwise conversational in no distress. LABS: H and H is stable. Metabolic panel is stable. ASSESSMENT AND RECOMMENDATIONS: See above.
--- NOTE | 2017-01-22 03:26 | NUR ---
Shift note Pt reported to epigastric discomfort. When assessed, she reported no pain, SOB, or n/v. Bowel sounds hyperactive. Pt reported no tenderness when abdomen lightly palpated. When reassessed, pt continued to report no pain. Call light within reach; bed left in low position. Instructed to use call light.
[2017-01-22 08:01] LABS: Magnesium 1.9 mg/dL (1.6-2.6)
[2017-01-22] MEDS: Sucralfate 1,000 mg Tablet PO SCH ×4 (08:14→19:54)
[2017-01-22] MEDS: Pantoprazole 20 mg ER24 Tablet PO SCH ×2 (08:14→16:30)
[2017-01-22] MEDS: Polyethylene Glycol (PEG) 17 Gm Powder PO SCH (08:15)
[2017-01-22 10:00] VITALS: BP 128/63; PULSE 76; RESP 18; O2SAT 96
--- NOTE | 2017-01-22 10:47 | NUR ---
Social Work: Continued d/c planning Data: Pt is on day 36 of hospitalization. EMR reviewed. Pt discussed in rounds. states that an internal drain is being considered and that Dr. Mcdaniel will be addressing this today. INSURANCE SALESPERSON will continue to follow regarding this and results to d/c plans. INSURANCE SALESPERSON will continue to follow. Assessment: Pt who is independent at baseline. Plan: Pt will d/c to [facility] once medically stable. states that an internal drain is being considered and that Dr. Mcdaniel will be addressing this today. INSURANCE SALESPERSON will continue to follow regarding this and results to d/c plans. INSURANCE SALESPERSON will continue to follow. SOHAN Kim
[2017-01-22] MEDS: 0.9% Sodium Chloride 1,000 ML IV SCH (11:33)
[2017-01-22] MEDS: cefTRIAXone Inj 2,000 MG in Dextrose 5% Minibag Plus 50 ML IV SCH (11:34)
--- NOTE | 2017-01-22 15:14 | NUR ---
Drain Pt drain flushed with 20 mls NS, putting out greenish mucous-like fluid with red specks. Pt denies pain or discomfort. Pt has ambulated x 2 [address] hallway.
[2017-01-22 16:16] VITALS: BP 151/65; PULSE 74; RESP 18; O2SAT 98
--- NOTE | 2017-01-22 16:35 | PROG NOTE ---
[address] [address] PROGRESS NOTE PATIENT: STEWART UREÑA : 1935 MR#: [id number] ADMIT: 12/17/2016 JOB ID: [id number] DATE: 01/22/2017 SUBJECTIVE: The patient is an 81-year-old woman with hereditary hemorrhagic telangiectasia, hospitalized with right liver abscess following prior surgical repair of gastric perforation. She has had biliary drainage from her drain, consistent with a biliary leak into her transhepatic abscess drain. Dr. Sam is working with Jacqueline Bonilla to determine if further intervention to surgically treat her biloma would be appropriate. The patient is feeling much better today. OBJECTIVE: Vitals: T 36.7, P 36, R 18, BP 128/63. Conjunctivae pale. Mucous membranes moist. Chest: Clear. Cardiac examination: Regular rate and rhythm. Abdomen: Soft. Mild tenderness in the right upper quadrant. Right hepatic drain intact. Extremities: Extensive muscular wasting. 2+ distal pulses. LABORATORIES: Hemoglobin 9.0, hematocrit 28%, BUN 6, creatinine 0.3, glucose 88. ASSESSMENT AND PLAN: 1. Hereditary hemorrhagic telangiectasia: No indication for transfusion support today. Continue to monitor. 2. Right liver abscess: Abscess was positive for both E. coli and Klebsiella. She is on broad-spectrum antibiotics. Transhepatic drain is draining biliary fluid. She may have reaccumulation of an intrahepatic biloma. Await further input from Dr. Sam and outside consultation from Jacqueline Bonilla.
--- NOTE | 2017-01-22 19:42 | PCM.PNMED ---
Subjective Date of Service January 22, 2017 Subjective Patient was seen and examined at bedside today. Patient denies any chest pain, shortness of breath, nausea, vomiting, diarrhea. Patient is actually doing very well and is in good spirits. Overnight events: None Exam Vital Signs Vital Sign - Last Date Time Temp Pulse Resp B/P Pulse Ox O2 Delivery O2 Flow Rate FiO2 01/22/17 16:16 36.6 74 18 151/65 98 Room Air 01/19/17 09:55 2 Intake and Output 01/21/17 01/21/17 01/22/17 Cumulative From/Thru 15:00 23:00 07:00 12/16/16 22:37 - 01/22/17 06:24 Intake Total 410 ml 333 ml 777 ml 99220 ml Output Total 0 ml 810 ml 56700 ml Balance 410 ml 333 ml -33 ml 711 ml Intake Oral 240 ml 200 ml 55109 ml IV Total 410 ml 93 ml 577 ml 24444 ml TPN/PPN 500 ml Packed Cells 1500 ml Tube Irrigant 110 ml Output Urine Total 800 ml 17056 ml Urine/Stool Mix 203 ml Emesis 50 ml Drainage Total 0 ml 10 ml 1212 ml # Voids 5 30 # Bowel Movements 28 Exam Physical Exam: GEN: Patient was awake, alert, responding appropriately to questions HEENT: Pupils equal round and reactive to light, extraocular eye muscles intact , Neck soft supple, trachea midline, nomocephalic/atraumatic CV: +S1/S2, regular rate and rhythm, systolic murmur auscultated Respiratory: CTAB, no wheezes, rales, rhonchi GI: +bowel sounds x4, soft, compressible, nontender to palpation EXT: no clubbing, cyanosis, edema Neuro: Cranial nerves II-XII grossly intact Psych: mood and affect were appropriate IVs and Medications Medications Reviewed: Medications were reviewed in detail Lab and Diagnostics Result Diagram: 01/22/1765401/22/17654 X-Rays, CTs and MRIs CT Abd / Pelvis Interpretation CONCLUSION: Heterogeneous appearing liver with a focal hypodense area noted in the liver measuring up to 14cm in size. Possible considerations include infection and tumor. Pelvic mass in the region of the uterus. While fibroid is a consideration. Other tumor would be difficult to exclude. Findings suggestion of constipation. Cardiomegaly. 5mm left lower pulmonary nodule. Radiologist: Andrea Singh MD PROCEDURE: 1. Sinogram through existing catheter. 2. Drain exchange and reposition. 3. Conscious sedation x21 minutes. IMPRESSION: Drainage catheter upsizing and repositioning as described above. Pigtail catheter is now within the superior aspect of the abscess cavity, which appears to contain viscous contents. Dictated by: Junito Cardozo M.D. 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 Bynum oncology), found to be liver abscess s/p IR drain/ertapenem for kleb/ ecoli bacteremia/abscess. Presented to the ED complaining of upper abdominal pain in achy bandlike. no associated UTIs. Escherichia coli and klebsiella Acute liver abscess WITH BACTEREMIA , present on admission. Ongoing -Liver drain output was minimal but on repeat imaging 12/30 shows persistence of liver abscess , Underwent successful repositioning and upsizing of liver abscess drain 12/31. Now draining. Continue flushing the drain every shift - CT-guided drain placement for a hepatic abscess on 12/17/[address] Joel .repositioning and upsizing of liver abscess drain 12/[address] Cardozo - Discontinue ertapenem (12/20/16-01/16/17) start IV Rocephin and Flagyl. Cipro was discontinued yesterday (01/15/17) per recommendation of Dr. Webber -Patient had on and off fevers a few days prior. Now resolved, afebrile for past few days. Blood culture sent 01/01 no growth -no echo since not gram positive, unlikely endocarditis risk - Based on CT findings, demonstrating only a 20% reduction in abscess size, I believe the replacement of hepatic tube is indicated at this time to ensure complete resolution. This was the opinion of infectious disease and infection control specialist in addition as such we proceeded with this plan. - PEG tube now replaced, drainage has been suboptimal considering size of abscess recently assessed on CT. Continued poor output overnight with worsening tenderness/pain in this area - Plan to repeat CT to assess for possible hemtoma related to placement and confirm location of tube related to abscess given poor output. - Pt remains poor condidate for suregry, but this may be revisited by entire treating team tomorrow, including PT's own GI physician, Dr Sam. - Replacement of liver drainage tube complete 01/14/17 Epigastric pain -Continue to use Maalox prior to eating -Start sucralfate -Add Grasshopper/GI cocktail prior to eating for comfort -Continue omeprazole -EGD yesterday showed telangiectasias actively bleeding but no signs of gastric ulcers - HIDA Scan within normal limits -Dr. Sam following Hypokalemia (resolved) -Patient's potassium is 3.4 (01/19/2017) today potassium is normalized to 3.9 -Replete with IV potassium 40 mEq 1 dose (01/19/2017) -Continue to monitor Acute sepsis, present on admission, clinically/leucocytosis resolved. - Initial Vital signs in the ED: Temperature 37.9, pulse 115, respiratory rate 18, blood pressure 126/57, with a map of 80, pulse ox 100% on room air.White blood cell count 21.8 with 90.5% neutrophils, now resolved. Acute left upper extremity DVT at site of PICC line. Not present on admission - PICC line removed on 12/20 - Per discussion with hematology (Dr. Travis on 12/[address] Bynum on 12/23) - treat patient with Lovenox given extent of DVT despite possible risk of bleeding FROM HER HHT. -Risks and benefits were discussed with patient on 12/20 -Oral anticoagulation hasn't been started given drain in place was required repositioning and upsizing. May consider initiating NOACs upon discharge or warfarin with Lovenox bridging after Hepatic tube is removed. Normocytic normochromic Anemia requiring transfusions, present on admission - Secondary Gastric and duodenal hereditary hemorrhagic telangiectasia - Followup daily H/H. - Hemoglobin 6.9 on 12/30, transfused 2 PRBCs 12/30. 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 History of Ulcerated gastroesophageal junction, with history of upper GI bleed s /p omental patch - Stable Cachexia, chronic, present on admission, active -Continue to encourage oral intake Chronic constipation, present on admission, ongoing - Continue with stool softeners and enema Hypothyroidism, chronic - Status post partial thyroidectomy - Continue patient's home medication - Follow up TSH Dispo: The patient seems to be stabilizing. At this time the patient will be discharged to [facility] once she is stable with weekly H&H checks and possible transfusions. The patient should remain on IV ceftriaxone and oral Flagyl daily aspirin recommendation by Dr. Webber (this was discussed with Dr. Webber earlier today). Will follow up with Dr. Sam as he potentially wants to transfer the patient to [facility]. VTE Prophylaxis: Sub-Q Heparin (Unfractionated) VTE Mechanical Devices: Intermittant Pneumatic CD Resuscitation Status: CPR: Attempt Resuscitation Nano Araujo DO January 22, 2017 19:42
[2017-01-22 20:03] VITALS: BP 144/63; PULSE 89; RESP 18; O2SAT 97
--- NOTE | 2017-01-22 22:30 | PROG NOTE ---
[address] [address] PROGRESS NOTE PATIENT: STEWART UREÑA : 1935 MR#: [id number] ADMIT: 12/17/2016 JOB ID: [id number] DATE: 01/22/2017 SUBJECTIVE: The patient has been up and walking around. Much more energetic. Eating better. Interestingly, today, she had very minimal bilious output in the drain, only 10 cc all day long. I spoke with Dr. Dewitt because Dr. Cardozo was not here today. I asked about the possibility of instilling some contrast into the abscess cavity to see if there is any actual significant indication with the main biliary tree. Dr. Cardozo will consider this tomorrow but, of course, if the patient's drainage continues with the progress we have seen of late, the entire issue may be moot. OBJECTIVE: Vitals stable. The patient is ambulatory with a walker around the unit. LABS: H and H acceptable 9.0/28.0. ALK phos is 331. ASSESSMENT AND PLAN: An 81-year-old female with refractory anemia swallowing much better after clearing the debris that had accumulated at the gastroesophageal junction where she has some retained suture material. Hepatic abscess is being appropriately managed. She remains on antibiotic and any manipulation of this will be at the discretion of Dr. Webber. As far as when to pull the drain, the decreased bilious fluid evident in the bag seen today is quite encouraging. If it is 10 cc or less for a couple of days in a row, then I would be inclined to consider pulling the drain and following this with serial imaging. I will continue to follow for now.
[2017-01-23 05:13] VITALS: BP 132/72; PULSE 70; RESP 18; O2SAT 98
[2017-01-23] MEDS: Pantoprazole 20 mg ER24 Tablet PO SCH ×2 (07:50→16:42)
[2017-01-23] MEDS: Sucralfate 1,000 mg Tablet PO SCH ×4 (07:51→21:02)
[2017-01-23] MEDS: Polyethylene Glycol (PEG) 17 Gm Powder PO SCH (08:02)
[2017-01-23] MEDS: 0.9% Sodium Chloride 1,000 ML IV SCH (08:31)
--- NOTE | 2017-01-23 09:32 | PROG NOTE ---
[address] [address] PROGRESS NOTE PATIENT: STEWART UREÑA : 1935 MR#: [id number] ADMIT: 12/17/2016 JOB ID: [id number] DATE: 01/23/2017 INFECTIOUS DISEASE FOLLOW UP NOTE: REASON FOR FOLLOW UP: Liver abscess. INTERVAL HISTORY: The patient tells me this morning the past day or two is the best she has felt throughout her long 35+ hospital day stay. She states her strength is increasing. She no longer has any fevers, chills, sweats and her abdominal pain has completely resolved. She still has a drain in her right upper quadrant which does not trouble her in any way. She wonders if things can be wrapped up so that she can return home to [place] to be reunited with her in the near future. PHYSICAL EXAMINATION: Reveals an afebrile woman, temperature 36.2. Blood pressure 132/72, pulse 70, respiratory rate 18, O2 sat 98%. The patient is currently doing well. The patient currently appears well and certainly looks stronger than she has in recent days. Conjunctivae still a bit pale. Oral cavity without thrush or pharyngitis. Lungs clear. Abdomen is soft and nontender. The right upper quadrant drain has a moderate amount of thin bilious material. Remainder of the abdomen, as mentioned, is completely benign. No recent CBCs have been obtained. Creatinine is less than 0.3. Alk phos has dropped all the way to 331, which is the lowest level of this long hospitalization. Bilirubin is 0.03. No positive cultures of note. No recent imaging. IMPRESSION: This patient seems to have turned the corner clinically. She feels and appears the best she has through this long hospital stay. The problem is that she continues to have a fair amount of bilious output from the drain. Dr. Sam in his note expressed hope that the drainage would soon become minimal and he could pull the drain but it seems like this morning there has been more bilious material in the drain than in the past few days and that is of concern. There are discussions in the chart about the possibility of an IR study to see if there is any connection between the drain and her biliary system. From an ID point of view, the patient has done quite well on a combination of ceftriaxone IV and oral Flagyl. It is reasonable at this point to continue with the IV therapy, but when we eventually need to switch to oral therapy, I think Augmentin 875 b.i.d. plus amoxicillin 500 b.i.d. would be a good long-term option. RECOMMENDATIONS: 1. Will continue with IV ceftriaxone plus oral Flagyl or ertapenem alone as long as she is here in the hospital. 2. Once we have decided that the patient is ready for discharge back to [place], I think we can go ahead and switch to the Augmentin plus amoxicillin b.i.d. regimen. 3. It is reasonable to go ahead and reassess the size of this abscess once again and see if we are making any headway with terms of dark drainage and antibiotics before we make final decisions about discharge, removal of the drain and antibiotic duration.
[2017-01-23 09:56] VITALS: BP 141/62; PULSE 84; RESP 18; O2SAT 97
[2017-01-23] MEDS: cefTRIAXone Inj 2,000 MG in Dextrose 5% Minibag Plus 50 ML IV SCH (12:10)
[2017-01-23 16:30] VITALS: BP 145/69; PULSE 87; RESP 18; O2SAT 97
[2017-01-23 21:01] VITALS: BP 125/64; PULSE 83; RESP 20; O2SAT 96
--- NOTE | 2017-01-24 | PCM.PNMED ---
Subjective Date of Service January 23, 2017 Subjective Patient has no new complaints. However, she states she has lost 30 pounds over the last several months due to this illness. Exam Vital Signs Vital Sign - Last Date Time Temp Pulse Resp B/P Pulse Ox O2 Delivery O2 Flow Rate FiO2 01/23/17 21:01 37.1 83 20 125/64 96 Room Air 01/19/17 09:55 2 Intake and Output 01/22/17 01/22/17 01/23/17 Cumulative From/Thru 15:00 23:00 07:00 12/16/16 22:37 - 01/23/17 06:53 Intake Total 190 ml 892 ml 854 ml 41202 ml Output Total 1000 ml 29409 ml Balance 190 ml 892 ml -146 ml 1647 ml Intake Oral 518 ml 300 ml 93017 ml IV Total 190 ml 374 ml 554 ml 34927 ml TPN/PPN 500 ml Packed Cells 1500 ml Tube Irrigant 110 ml Output Urine Total 1000 ml 26508 ml Urine/Stool Mix 203 ml Emesis 50 ml Drainage Total 1212 ml # Voids 5 35 # Bowel Movements 28 Exam General: Patient is in no apparent distress. Patient is cachectic. HEENT: Head is atraumatic and normocephalic. Eyes: Pupils are equally round and reactive to light and accommodation. Extraocular muscles are intact. Sclera are white, anicteric. Subconjunctival mucosa is pink. Ears and nose are unremarkable. Oropharynx: There is no mucosal lesions, there is no thrush, there is no pharyngitis. Neck: Is supple, there are no nodes, or masses or tenderness. Chest: Is clear to auscultation and percussion. There are no rales, rhonchi, wheezes or rubs. Heart: Rate, rhythm is regular. There is no murmur, rub or gallop. Abdomen: Good bowel sounds are present. Abdomen is soft, nontender, no organomegaly or masses were appreciated. Right upper quadrant drain is in place. Extremities: Are symmetrical and well perfused. There is no edema, there is no cellulitis, no rash. Neurologic: There are no focal neurological deficits. Cranial nerves II through XII are intact. There are no sensory or motor deficits. Psychiatric: Patients mood is calm and shows no sign of agitation. Genital: Deferred Rectal: Deferred Lab and Diagnostics Result Diagram: 01/22/1765401/22/17654 Microbiology Name: STEWART UREÑA Age/Sex: 81/F Attend Dr: Gladys Fowler Acct: [id number] Unit: [id number] Status: ADM IN Location: [facility] [place] 3025-1 Re12/17/16 Disch: Specimen: [id number] Collected: 12/17/16-UNK Status: COMP Req#: [id number] Received: 12/17/16 Source: IRA Boyd Desc : Subm Dr: Jose Sam MD Ordered: CS & ANAC & GS Comments: Collected by Nurse/Unit? Y/N Y Comment: LIVER FLUID COLLECTION Procedure Result Verified Site Microbiology JOY GS (GRAM STAIN) Final 12/17/16 GRAM STAIN RESULT MANY POLYS MODERATE GRAM NEG RODS JOY CULT AEROBIC Final 12/24/16 Organism 1 ESCHERICHIA COLI COLONY COUNT/QUANTITY MODERATE GROWTH Organism 2 KLEBSIELLA PNEUMONIAE COLONY COUNT/QUANTITY MODERATE GROWTH 1. ESCHERICHIA COLI M.I.C Interp --------- ------ * AMIKACIN <=2 S * AMPICILLIN <=2 S * AMPICILLIN/SULBACTAM <=2 S * CEFEPIME <=1 S * CEFOXITIN <=4 S * CEFTRIAXONE <=1 S * CIPROFLOXACIN <=0.25 S * ERTAPENEM <=0.5 S * GENTAMICIN <=1 S * MEROPENEM <=0.25 S * TOBRAMYCIN <=1 S * TRIMETHOPRIM/SULFAMETHOXAZOLE <=20 S * PIPERACILLIN/TAZOBACTAM <=4 S 2. KLEBSIELLA PNEUMONIAE M.I.C Interp --------- ------ * AMIKACIN <=2 S * AMPICILLIN >=32 R * AMPICILLIN/SULBACTAM 4 S * CEFEPIME <=1 S * CEFOXITIN <=4 S * CEFTRIAXONE <=1 S * CIPROFLOXACIN <=0.25 S * ERTAPENEM <=0.5 S CONTINUED ON NEXT PAGE RUN DATE: 12/24/16 [facility] LIVE PAGE 2 RUN TIME: 0808 Specimen Inquiry PHYSICIAN Patient: STEWART UREÑA [id number] (Continued) Specimen: [id number] Collected: 12/17/16-SIXTO Received: 12/17/16 (Continued) Procedure Result Verified Site JOY CULT AEROBIC Final (continued) 12/24/16 2. KLEBSIELLA PNEUMONIAE (continued) M.I.C Interp --------- ------ * GENTAMICIN <=1 S * MEROPENEM <=0.25 S * TOBRAMYCIN <=1 S * TRIMETHOPRIM/SULFAMETHOXAZOLE <=20 S * PIPERACILLIN/TAZOBACTAM <=4 S Microbiology (Continued) ANAEROBIC CULTURE Final 12/24/16 No anaerobes isolated X-Rays, CTs and MRIs CT Abd / Pelvis Interpretation CONCLUSION: Heterogeneous appearing liver with a focal hypodense area noted in the liver measuring up to 14cm in size. Possible considerations include infection and tumor. Pelvic mass in the region of the uterus. While fibroid is a consideration. Other tumor would be difficult to exclude. Findings suggestion of constipation. Cardiomegaly. 5mm left lower pulmonary nodule. Radiologist: Andrea Singh MD PROCEDURE: 1. Sinogram through existing catheter. 2. Drain exchange and reposition. 3. Conscious sedation x21 minutes. IMPRESSION: Drainage catheter upsizing and repositioning as described above. Pigtail catheter is now within the superior aspect of the abscess cavity, which appears to contain viscous contents. Dictated by: Junito Cardozo M.D. 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 Bynum oncology), found to be liver abscess s/p IR drain/ ertapenem for kleb/ecoli bacteremia/abscess. Presented to the ED complaining of upper abdominal pain in achy bandlike. no associated UTIs. Escherichia coli and klebsiella Acute liver abscess WITH BACTEREMIA , present on admission. Ongoing -Liver drain output was minimal but on repeat imaging 12/30 shows persistence of liver abscess , Underwent successful repositioning and upsizing of liver abscess drain 12/31. Now draining. Continue flushing the drain every shift - CT-guided drain placement for a hepatic abscess on 12/17/[address] Joel .repositioning and upsizing of liver abscess drain 12/[address] Cardozo - Discontinued ertapenem (12/20/16-01/16/17) started IV Rocephin and Flagyl. Cipro was discontinued (01/15/17) per recommendation of Dr. Webber -Patient had on and off fevers a few days prior. Now resolved, afebrile for past few days. Blood culture sent 01/01 no growth -no echo since not gram positive, unlikely endocarditis risk - Based on CT findings, demonstrating only a 20% reduction in abscess size. - PEG tube now replaced, drainage has been suboptimal considering size of abscess recently assessed on CT. - Replacement of liver drainage tube complete 01/14/17 - Dr. Sam suggesting possible removal of drain tomorrow and continuation of long-term antibiotic therapy. Discussed with Dr. Sam today. Epigastric pain -Continue to use Maalox prior to eating -Start sucralfate -Add Grasshopper/GI cocktail prior to eating for comfort -Continue omeprazole -EGD yesterday showed telangiectasias actively bleeding but no signs of gastric ulcers - HIDA Scan within normal limits -Dr. Sam following Hypokalemia (resolved) -Patient's potassium is 3.4 (01/19/2017) today potassium is normalized to 3.9 -Replete with IV potassium 40 mEq 1 dose (01/19/2017) -Continue to monitor Acute sepsis, present on admission, clinically/leucocytosis resolved. - Initial Vital signs in the ED: Temperature 37.9, pulse 115, respiratory rate 18, blood pressure 126/57, with a map of 80, pulse ox 100% on room air.White blood cell count 21.8 with 90.5% neutrophils, now resolved. Acute left upper extremity DVT at site of PICC line. Not present on admission - PICC line removed on 12/20 - Per discussion with hematology (Dr. Travis on 12/[address] Bynum on 12/23) - treat patient with Lovenox given extent of DVT despite possible risk of bleeding FROM HER HHT. -Risks and benefits were discussed with patient on 12/20 -Oral anticoagulation hasn't been started given drain in place was required repositioning and upsizing. May consider initiating NOACs upon discharge or warfarin with Lovenox bridging after Hepatic tube is removed. Normocytic normochromic Anemia requiring transfusions, present on admission - Secondary Gastric and duodenal hereditary hemorrhagic telangiectasia - Followup daily H/H. - Hemoglobin 6.9 on 12/30, transfused 2 PRBCs 12/30. 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 History of Ulcerated gastroesophageal junction, with history of upper GI bleed s /p omental patch - Stable Cachexia, chronic, present on admission, active -Continue to encourage oral intake Chronic constipation, present on admission, ongoing - Continue with stool softeners and enema Hypothyroidism, chronic - Status post partial thyroidectomy - Continue patient's home medication - Follow up TSH Dispo: The patient was told by Dr. Sam today that she may be able to have her drain removed tomorrow. Patient and would need to be and long-term antibiotic therapy under the direction of Dr. Webber.. Pain Evaluation: Adequate Pain Control VTE Prophylaxis: Sub-Q Heparin (Unfractionated) VTE Mechanical Devices: Intermittant Pneumatic CD Resuscitation Status: CPR: Attempt Resuscitation [place] MD January 24, 2017 00:00
[2017-01-24] MEDS: 0.9% Sodium Chloride 1,000 ML IV SCH ×2 (05:01→21:01)
--- NOTE | 2017-01-24 05:16 | NUR ---
Sleep/drain PT slept well all night with no complaints of pain or nausea, the drain to RT flank had 8mls return after flush volume subtracted.
[2017-01-24 05:54] VITALS: BP 125/54; PULSE 81; RESP 20; O2SAT 95
[2017-01-24 06:51] LABS: BASOPHILS % (AUTO) 1.6 % (0-3); EOSINOPHILS % (AUTO) 3.4 % (0-5); MONOCYTES % (AUTO) 11.3 % (4-12); Mean Corpuscular Hemoglobin 29.5 pg (27.0-35.0); Mean Corpuscular Volume 93.5 fL (81-100); NEUTROPHILS % (AUTO) 50.3 % (40-74); Platelet Count 426 bil/L (150-400)
[2017-01-24 07:16] LABS: Magnesium 1.8 mg/dL (1.6-2.6)
[2017-01-24 07:53] LABS: ERYTHROCYTE SEDIMENTATION RATE 20 mm/hr (0-40)
[2017-01-24] MEDS: Sucralfate 1,000 mg Tablet PO SCH ×4 (07:53→21:01)
[2017-01-24] MEDS: Pantoprazole 20 mg ER24 Tablet PO SCH ×2 (07:54→16:31)
--- NOTE | 2017-01-24 09:01 | PROG NOTE ---
[address] [address] PROGRESS NOTE PATIENT: STEWART UREÑA : 1935 MR#: [id number] ADMIT: 12/17/2016 JOB ID: [id number] DATE: 01/23/2017 SUBJECTIVE: The patient continues to eat well, is ambulatory. Yesterday, fluid, which is bilious, in the drain was very minimal. Fortunately today, there was 56 cc total. I spoke with Dr. Cardozo, and he did not feel that based on his prior injections of the abscess cavity that there was any significant communication with the main biliary tree. The patient is anxious to get home, if possible. OBJECTIVE: Vital signs stable. Patient conversational and in no distress. ASSESSMENT AND RECOMMENDATIONS: This is an 81-year-old female with hereditary hemorrhagic telangiectasia and refractory anemia. She developed hepatic abscess. Difficult to determine whether this was the complication of the proximal gastric perforation or whether this was a spontaneous myoma with the development of superinfection. Regardless, at this point, the treatment requires antibiotics. This will be at the discretion of Dr. Webber. As far as the drain is concerned, I would, again, be in favor of removing it if we can fairly consistently see 10 cc of less bile present in the bag for 24 hours. At this time, I do not feel that endoscopic retrograde cholangiopancreatography would be therapeutic.
[2017-01-24] MEDS: Polyethylene Glycol (PEG) 17 Gm Powder PO SCH (09:06)
--- NOTE | 2017-01-24 09:43 | PROG NOTE ---
[address] [address] PROGRESS NOTE PATIENT: STEWART UREÑA : 1935 MR#: [id number] ADMIT: 12/17/2016 JOB ID: [id number] DATE: 01/24/2017 SUBJECTIVE: The patient is an 81-year-old woman with hereditary hemorrhagic telangiectasia, hospitalized with right liver abscess following earlier surgical repair of gastric perforation. She is feeling quite good. Drainage from her biliary tube is minimal, and the drain may be removed later today. She is hoping to go home. She has been afebrile. OBJECTIVE: Vitals: T 36.9, P 81, R 20, BP 125/54. HEENT: Conjunctivae slightly pale. Mucous membranes moist. No oral lesions. Chest: Clear. Cardiac examination: Regular rate and rhythm. Abdomen: Soft, nontender. Right hepatic drain intact. Extremities: Extensive muscular wasting. 2+ distal pulses. LABORATORIES: WBC 3.2 with 50% neutrophils, hemoglobin 8.6, hematocrit 27.3%, platelets 426,000. BUN 8, creatinine less than 0.3, glucose 89. AST 12, ALT 7, alkaline phosphatase 318. Total protein 4.6, albumin 2.3. TSH 32.59. ASSESSMENT AND PLAN: 1. Hereditary hemorrhagic telangiectasia: No indication for transfusion support today. Continue to monitor. If discharged, please arrange [facility] in about two weeks with CBC, differential, platelets. Type and cross at that time for potential transfusion support. 2. Right liver abscess: Abscess culture was positive for both E. coli and Klebsiella. She continues on broad-spectrum antibiotics. I will leave it to the hospitalist team, Gastroenterology and Infectious Disease to determine the appropriate time to remove her percutaneous drain. 3. Thyroid disease: The patient is now on [place] Thyroid 75 mg p.o. daily after recent TSH was highly elevated at 32.59. Continue to monitor.
--- NOTE | 2017-01-24 10:55 | NUR ---
Social Work: Continued d/c planning Data: Pt is on day 38 of hospitalization. EMR reviewed. Pt discussed in rounds. states that there is a possibility of pt discharging with the liver drain or without the liver drain. There is also a possibility of pt discharging with IVABX or with POABX. MD to determine these things with GI and with ID. Pt cannot return to [facility] if she has a drain and/or IVABX. She could return to [facility], pending reassessment, if the drain is removed AND she is no longer on IVABX at d/c. ACTIVE DIRECTORY SPECIALIST called [facility], spoke with Lisa, and explained the situation. Lisa states they will schedule a reassessment for Friday to have their RN come to hospital to meet with pt. ACTIVE DIRECTORY SPECIALIST will update [facility] of medical plan for pt regarding these two main pieces. If pt needs to d/c with drain and/or with IVABX, the plan continues to be for pt to go to [facility], which has previously accepted her. Assessment: Pt who is independent at baseline. Plan: MD will decide with pt regarding if drain will be in or out at d/c and if pt will d/c on IVABX or POABX. ACTIVE DIRECTORY SPECIALIST will update [facility] DETENTION. [facility] scheduled to reassess pt on Friday if needed. If pt needs to d/c with drain and/or with IVABX, the plan continues to be for pt to go to [facility], which has previously accepted her. ACTIVE DIRECTORY SPECIALIST will continue to follow. SOHAN Kim
[2017-01-24] MEDS: cefTRIAXone Inj 2,000 MG in Dextrose 5% Minibag Plus 50 ML IV SCH (11:35)
--- NOTE | 2017-01-24 14:52 | NUR ---
Social Work: Continued d/c planning Data: [employer] spoke with SALMA Quinn with [place], who requested a call from [employer] on Friday if pt will d/c on POABX AND without the drain at [phone] and will require a reassessment. SAMPLE SELECTOR will continue to follow. SOHAN Kim
--- NOTE | 2017-01-24 14:56 | NUR ---
NUTRITION FOLLOW UP: Assess: 81 YO F with liver abscess, with polymicrobial bacteremia, following prior surgical repair of gastric perforation. Pt with percutaneous drain in the right hepatic lobe. There is a possibility the drain may be removed soon. PO intake continues to be variable at 10-75% of meals. Diet was advanced to General today from Dysphagia Mechanical. Her wt has overall been stable throughout hospital stay. Last BM was 4 days ago. PMHx: Ulcerated gastroesophageal junction, Irregular gastroesophageal junction, Gastric and duodenal hereditary hemorrhagic telangiectasia, Hypothyroid, malnutrition, uterine fibroid. LABS: Reviewed. Bolt Header <.3, Alk phos 318, Alb 2.3 MEDICATIONS: Reviewed. Miralax DIET: General, PO 10-75% GI: BM x 3 (01/20). SKIN: Cosmo 18, pale, frail woman lying in bed. Visible muscle/fat loss in face and arms. ANTHROPOMETRICS: Current wt: 40.7 kg, BMI 15.9kg/m2, Admit Wt: (12/17) 41.5 kg (standing scale) Past Admit Wt: 38.5 kg (Bed scale) IBW: 52.3 kg. UBW (November): 54 kg. Severe wt loss noted in past, but wt appears stable with slight increase over the past 3 months. ESTIMATED NEEDS: Malnutrition Calories: 7267-9640 kcal/day (30-35 kcal/kg IBW) Protein: 65-80 g/day (1.2-1.5 g/kg IBW) NUTRITION DIAGNOSIS: 1) Severe pro/kcal malnutrition related to chronic illness as evidenced by variable wt, visible loss of LBM/ fat, BMI of 15.9kg/m2 - PERSISTS. 2) Inadequate oral intake related to altered GI function as evidence by early satiety, BMI of 15.7 - PERSISTS. INTERVENTION: 1) Continue to send Ensure on all trays and encourage PO intake 2) Pt has received high calorie/high protein education on 09/11/16 and 11/05/16. MONITOR/EVALUATE: PO intake, labs, weights, BM, nutrition status. Follow per high nutrition risk guidelines.
--- NOTE | 2017-01-24 14:56 | PROG NOTE ---
[address] [address] PROGRESS NOTE PATIENT: STEWART UREÑA : 1935 MR#: [id number] ADMIT: 12/17/2016 JOB ID: [id number] DATE: 01/24/2017 INFECTIOUS DISEASE FOLLOW UP NOTE: REASON FOR FOLLOWUP: Polymicrobial bacteremia due to liver abscess. INTERVAL HISTORY: The patient continues to feel much better over the past several days. No fevers, chills or sweats. No significant respiratory difficulty. Swelling in her left arm due to the DVT has completely resolved. She is having no problems with peripheral IVs in the right arm and no abdominal pain. The drain continues to produce fairly scant drainage yesterday, just 8 cc. PHYSICAL EXAMINATION: Reveals an afebrile woman. Temperature 36.9, pulse 81, respiratory rate 20, blood pressure 125/54. She is saturating well on room air. No acute distress. Oral cavity negative. Lungs quite clear. Cardiac tones without new murmur. Left upper extremity has returned completely to normal. Right upper extremity IV line looks benign. Abdomen is soft, nontender. Drain present with minimal drainage. LABORATORIES: White count today 3200, platelets 426. Creatinine is less than 0.3. Alk phos 318. Albumin 2.3. Urinalysis without white cells. Micro studies include the blood and liver abscess cultures which grew E coli and Klebsiella. Follow up blood cultures are negative. IMAGING: None new. IMPRESSION: This patient has a liver abscess which seems to be improving steadily. She remains on intravenous ceftriaxone plus oral Flagyl. This was a regimen we had picked in case she goes to a care home facility to receive IV antibiotics as they would likely not pay for IV ertapenem, which would be a more parsimonious solution. At this point, though it looks like she may go all the way back to [place] where she lives in assisted living with her . If that is the case, I think we could probably transfer to oral antibiotics rather than continue with an elaborate set of IV antibiotics. RECOMMENDATIONS: 1. Will continue with IV ceftriaxone plus oral Flagyl or ertapenem as long as she is here in the hospital. 2. Once the drain is out and she is ready to head back to [place], I would go with either Augmentin plus amoxicillin or perhaps oral Cefdinir plus Flagyl. Of these I think I would lean towards Augmentin plus amoxicillin as we would avoid the risk of neurotoxicity with prolonged Flagyl. 3. Reasonable doses of Augmentin would be 875 p.o. b.i.d., and amoxicillin 500 mg p.o. b.i.d. to be taken for a period of weeks with close followup. 4. If the patient is discharged in the next few days without her drain and on those oral antibiotics she should followup with me in 2-3 weeks and it will also be important that she follows up with the GI service. She will require serial imaging until we see that the liver abscess is substantially resolved.
[2017-01-24 16:25] VITALS: BP 144/70; PULSE 91; RESP 18; O2SAT 96
[2017-01-24] MEDS ORDERED: Magnesium Sulf 2 Gm/50mL Water 2 GM in IV Premix 1 EACH IV ONE (18:25)
[2017-01-24 20:58] VITALS: BP 121/60; PULSE 85; RESP 18; O2SAT 96
--- NOTE | 2017-01-25 00:25 | PCM.PNMED ---
Subjective Date of Service January 25, 2017 Subjective The patient has no new complaints. She is sitting up in bed in no apparent distress. Exam Vital Signs Vital Sign - Last Date Time Temp Pulse Resp B/P Pulse Ox O2 Delivery O2 Flow Rate FiO2 01/24/17 20:58 36.8 85 18 121/60 96 Room Air 01/19/17 09:55 2 Intake and Output 01/24/17 01/24/17 01/25/17 Cumulative From/Thru 15:00 23:00 07:00 12/16/16 22:37 - 01/24/17 21:41 Intake Total 388 ml 808 ml 03031 ml Output Total 955 ml 905 ml 15100 ml Balance -567 ml -97 ml 2087 ml Intake Oral 118 ml 613 ml 14952 ml IV Total 270 ml 195 ml 16982 ml TPN/PPN 500 ml Packed Cells 1500 ml Tube Irrigant 110 ml Output Urine Total 950 ml 900 ml 95377 ml Urine/Stool Mix 203 ml Emesis 50 ml Drainage Total 5 ml 5 ml 1286 ml # Voids 35 # Bowel Movements 0 28 Exam General: Patient is in no apparent distress. Patient is cachectic. HEENT: Head is atraumatic and normocephalic. Eyes: Pupils are equally round and reactive to light and accommodation. Extraocular muscles are intact. Sclera are white, anicteric. Subconjunctival mucosa is pink. Ears and nose are unremarkable. Oropharynx: There is no mucosal lesions, there is no thrush, there is no pharyngitis. Neck: Is supple, there are no nodes, or masses or tenderness. Chest: Is clear to auscultation and percussion. There are no rales, rhonchi, wheezes or rubs. Heart: Rate, rhythm is regular. There is no murmur, rub or gallop. Abdomen: Good bowel sounds are present. Abdomen is soft, nontender, no organomegaly or masses were appreciated. Right upper quadrant drain is in place. Extremities: Are symmetrical and well perfused. There is no edema, there is no cellulitis, no rash. Neurologic: There are no focal neurological deficits. Cranial nerves II through XII are intact. There are no sensory or motor deficits. Psychiatric: Patients mood is calm and shows no sign of agitation. Genital: Deferred Rectal: Deferred Lab and Diagnostics Result Diagram: 01/24/1761501/24/17615 Microbiology Name: STEWART UREÑA Age/Sex: 81/F Attend Dr: Gladys Fowler Acct: [id number] Unit: [id number] Status: ADM IN Location: [facility] [place], [place] 3025-1 Re12/17/16 Disch: Specimen: [id number] Collected: 12/17/16-UNK Status: COMP Req#: [id number] Received: 12/17/16 Source: IRA Sp Desc : Subm Dr: Jose Sam MD Ordered: CS & ANAC & GS Comments: Collected by Nurse/Unit? Y/N Y Comment: LIVER FLUID COLLECTION Procedure Result Verified Site Microbiology JOY GS (GRAM STAIN) Final 12/17/16-2201 GRAM STAIN RESULT MANY POLYS MODERATE GRAM NEG RODS JOY CULT AEROBIC Final 12/24/16-807 Organism 1 ESCHERICHIA COLI COLONY COUNT/QUANTITY MODERATE GROWTH Organism 2 KLEBSIELLA PNEUMONIAE COLONY COUNT/QUANTITY MODERATE GROWTH 1. ESCHERICHIA COLI M.I.C Interp --------- ------ * AMIKACIN <=2 S * AMPICILLIN <=2 S * AMPICILLIN/SULBACTAM <=2 S * CEFEPIME <=1 S * CEFOXITIN <=4 S * CEFTRIAXONE <=1 S * CIPROFLOXACIN <=0.25 S * ERTAPENEM <=0.5 S * GENTAMICIN <=1 S * MEROPENEM <=0.25 S * TOBRAMYCIN <=1 S * TRIMETHOPRIM/SULFAMETHOXAZOLE <=20 S * PIPERACILLIN/TAZOBACTAM <=4 S 2. KLEBSIELLA PNEUMONIAE M.I.C Interp --------- ------ * AMIKACIN <=2 S * AMPICILLIN >=32 R * AMPICILLIN/SULBACTAM 4 S * CEFEPIME <=1 S * CEFOXITIN <=4 S * CEFTRIAXONE <=1 S * CIPROFLOXACIN <=0.25 S * ERTAPENEM <=0.5 S CONTINUED ON NEXT PAGE RUN DATE: 12/24/16 [facility] LIVE PAGE 2 RUN TIME: 08 Specimen Inquiry PHYSICIAN Patient: STEWART UREÑA [id number] (Continued) Specimen: [id number] Collected: 12/17/16-SIXTO Received: 12/17/16 (Continued) Procedure Result Verified Site JOY CULT AEROBIC Final (continued) 12/24/16 2. KLEBSIELLA PNEUMONIAE (continued) M.I.C Interp --------- ------ * GENTAMICIN <=1 S * MEROPENEM <=0.25 S * TOBRAMYCIN <=1 S * TRIMETHOPRIM/SULFAMETHOXAZOLE <=20 S * PIPERACILLIN/TAZOBACTAM <=4 S Microbiology (Continued) ANAEROBIC CULTURE Final 12/24/16 No anaerobes isolated X-Rays, CTs and MRIs CT Abd / Pelvis Interpretation CONCLUSION: Heterogeneous appearing liver with a focal hypodense area noted in the liver measuring up to 14cm in size. Possible considerations include infection and tumor. Pelvic mass in the region of the uterus. While fibroid is a consideration. Other tumor would be difficult to exclude. Findings suggestion of constipation. Cardiomegaly. 5mm left lower pulmonary nodule. Radiologist: Andrea Singh MD PROCEDURE: 1. Sinogram through existing catheter. 2. Drain exchange and reposition. 3. Conscious sedation x21 minutes. IMPRESSION: Drainage catheter upsizing and repositioning as described above. Pigtail catheter is now within the superior aspect of the abscess cavity, which appears to contain viscous contents. Dictated by: Junito Cardozo M.D. 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 Bynum oncology), found to be liver abscess s/p IR drain/ ertapenem for kleb/ecoli bacteremia/abscess. Presented to the ED complaining of upper abdominal pain in achy bandlike. no associated UTIs. Escherichia coli and klebsiella Acute liver abscess WITH BACTEREMIA , present on admission. Ongoing -Liver drain output was minimal but on repeat imaging 12/30 shows persistence of liver abscess , Underwent successful repositioning and upsizing of liver abscess drain 12/31. Now draining. Continue flushing the drain every shift - CT-guided drain placement for a hepatic abscess on 12/17/[address] Joel .repositioning and upsizing of liver abscess drain 12/[address] Cardozo - Discontinued ertapenem (12/20/16-01/16/17) started IV Rocephin and Flagyl. Cipro was discontinued (01/15/17) per recommendation of Dr. Webber -Patient had on and off fevers a few days prior. Now resolved, afebrile for past few days. Blood culture sent 01/01 no growth -no echo since not gram positive, unlikely endocarditis risk - Based on CT findings, demonstrating only a 20% reduction in abscess size. - PEG tube now replaced, drainage has been suboptimal considering size of abscess recently assessed on CT. - Replacement of liver drainage tube complete 01/14/17 - Discussed with Dr. Sam today. We will repeat the patient's CT scan of the liver to reevaluate the size and effectiveness of current drain the liver abscess. Epigastric pain improved -Continue to use Maalox prior to eating -Start sucralfate -Add Grasshopper/GI cocktail prior to eating for comfort -Continue omeprazole -EGD yesterday showed telangiectasias actively bleeding but no signs of gastric ulcers - HIDA Scan within normal limits -Dr. Sam following Hypokalemia (resolved) -Patient's potassium is 3.4 (01/19/2017) today potassium is normalized to 3.9 -Replete with IV potassium 40 mEq 1 dose (01/19/2017) -Continue to monitor Acute sepsis, present on admission, clinically/leucocytosis resolved. - Initial Vital signs in the ED: Temperature 37.9, pulse 115, respiratory rate 18, blood pressure 126/57, with a map of 80, pulse ox 100% on room air.White blood cell count 21.8 with 90.5% neutrophils, now resolved. Acute left upper extremity DVT at site of PICC line. Not present on admission - PICC line removed on 12/20 - Per discussion with hematology (Dr. Travis on 12/[address] Bynum on 12/23) - treat patient with Lovenox given extent of DVT despite possible risk of bleeding FROM HER HHT. -Risks and benefits were discussed with patient on 12/20 -Oral anticoagulation hasn't been started given drain in place was required repositioning and upsizing. May consider initiating NOACs upon discharge or warfarin with Lovenox bridging after Hepatic tube is removed. Normocytic normochromic Anemia requiring transfusions, present on admission - Secondary Gastric and duodenal hereditary hemorrhagic telangiectasia - Followup daily H/H. - Hemoglobin 6.9 on 12/30, transfused 2 PRBCs 12/30. 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 History of Ulcerated gastroesophageal junction, with history of upper GI bleed s /p omental patch - Stable Cachexia, chronic, present on admission, active -Continue to encourage oral intake Chronic constipation, present on admission, ongoing - Continue with stool softeners and enema Hypothyroidism, chronic - Status post partial thyroidectomy - Continue patient's home medication - Follow up TSH Dispo: The patient was told by Dr. Sam today that she may be able to have her drain removed tomorrow. Patient and would need to be and long-term antibiotic therapy under the direction of Dr. Webber.. Pain Evaluation: Adequate Pain Control VTE Prophylaxis: Sub-Q Heparin (Unfractionated) VTE Mechanical Devices: Intermittant Pneumatic CD Resuscitation Status: CPR: Attempt Resuscitation JacoboNelson MD January 25, 2017 00:25
[2017-01-25 04:59] VITALS: BP 125/65; PULSE 73; RESP 18; O2SAT 95
--- NOTE | 2017-01-25 06:30 | NUR ---
drain patients drain has 12mls of green/yellow drainage patient states "looks like bile". patient denies pain/nausea. vital signs stable. drain flushed with 10cc NS with no pain. will continue to monitor.
--- NOTE | 2017-01-25 06:31 | PROG NOTE ---
[address] [address] PROGRESS NOTE PATIENT: STEWART UREÑA : 1935 MR#: [id number] ADMIT: 12/17/2016 JOB ID: [id number] DATE: 01/24/2017 SUBJECTIVE: Nothing has really changed clinically. The 56 mL drainage is disputed by the patient. She does not believe she has had anywhere near that amount that was recorded for the date, January 23, 2017. So far, total in the last 24 hours, she has had about 18 cc removed. I spoke with Dr. Centeno, and an updated CT was ordered. The patient and her daughter were disappointed that they could not have the drain removed and be discharged today, but the patient is very understanding that we do not want to put her in a spot where she could clinically deteriorate. OBJECTIVE: Vitals are stable. Patient conversational. LABORATORY DATA: H and H 8.6/27.3. Alk phos 318. Procalcitonin level is 0.08. ASSESSMENT AND RECOMMENDATIONS: An 81-year-old female with hereditary hemorrhagic telangiectasia. Biliary drainage is still somewhere in the 18 cc nathaniel for almost 24 hours. Typically, the recommendation is to have this consistently in the 10 cc or less before pulling the drain. The repeat CT scan will be quite telling as to whether the drain has been in an appropriate location, and if so, if the requisite minimal drainage continues, then I would endorse removing it. On the other hand, if CT demonstrates the drain has not been in an ideal location, the Interventional Radiology may need to manipulate this accordingly. I will discuss the case with , who will be covering the service over the weekend.
[2017-01-25 06:38] LABS: BASOPHILS % (AUTO) 3.2 % (0-3); MONOCYTES % (AUTO) 13.8 % (4-12); Mean Corpuscular Hemoglobin 29.2 pg (27.0-35.0); Mean Corpuscular Volume 93.6 fL (81-100); NEUTROPHILS % (AUTO) 48.7 % (40-74); Platelet Count 443 bil/L (150-400)
[2017-01-25 06:50] LABS: Magnesium 2.1 mg/dL (1.6-2.6)
[2017-01-25] MEDS: Polyethylene Glycol (PEG) 17 Gm Powder PO SCH (08:19)
[2017-01-25] MEDS: Pantoprazole 20 mg ER24 Tablet PO SCH ×2 (08:20→16:33)
[2017-01-25] MEDS: Sucralfate 1,000 mg Tablet PO SCH ×4 (08:20→22:10)
--- NOTE | 2017-01-25 09:00 | NUR ---
FERDINAND signed. SOHAN Gayle
--- NOTE | 2017-01-25 10:53 | DRSVH ---
PROCEDURE: CT ABDOMEN WITH CONTRAST ([id number]) INDICATIONS: Follow up for Liver Abscess TECHNIQUE: After the administration of intravenous contrast, 5 mm thick sections acquired from the diaphragm to the iliac crests. 5 mm coronal and sagittal reformats were performed. For radiation dose reduction, the following was used: automated exposure control, adjustment of mA and/or kV according to patient size. COMPARISON: [facility], CT, CT ABD PELVIS W CON, 01/12/2017, 10:00. [facility], CT, CT ABD W CON, 01/08/2017, 13:58. FINDINGS: Image quality: Excellent. Lung bases: The heart is enlarged. Mild pleural effusions are present with minimal interval increase compared to prior exam. Consolidative opacity is present on the left common new compared to prior exa m. Solid organs: Liver demonstrates heterogeneous hyperenhancement consistent with multiple portosystem ic shunts. Multiloculated abscess within the right hepatic lobe is present with hepatic drain. The la rgest fluid collection in the superior aspect has markedly decreased in size currently measuring 26 m m AP by 19 mm transverse compared to 42 mm AP by 41 mm transverse. The inferior loculation measures 1 7 mm AP by 18 mm transverse, decreased from 24 mm AP by 26 mm transverse. The spleen is normal in siz e and enhancement. Gallbladder is nondistended. Biliary system is non dilated. Pancreas enhances n ormally. No adrenal nodules. Kidneys demonstrate normal size and enhancement, without hydronephrosi s. Peritoneum and bowel: Bowel loops demonstrate normal wall thickness and caliber. No free fluid or a ir. Nodes and vessels: No retroperitoneal or mesenteric adenopathy by size criteria. Aorta and inferior vena cava are normal in size. Miscellaneous: No ventral hernias. IMPRESSION: 1. Interval decrease in size of previously identified loculated hepatic fluid collections with drain in place. 2. Bilateral pleural effusions with slight interval increase on the left as well as development of san perimposed consolidation. The latter can be reflective of pneumonia and/or atelectasis. 3. Unchanged heterogeneous hepatic enhancement suggestive hepatitis and intrahepatic portosystemic sh unts. Dictated by: Franca Peace M.D. on 01/25/2017 at 10:46 Approved by: Franca Peace M.D. on 01/25/2017 at 10:51
[2017-01-25] MEDS: cefTRIAXone Inj 2,000 MG in Dextrose 5% Minibag Plus 50 ML IV SCH (11:55)
[2017-01-25 12:37] VITALS: BP 130/58; PULSE 82; RESP 18; O2SAT 99
--- NOTE | 2017-01-25 16:53 | NUR ---
Activity Pt up and ambulated around unit with an aide. Showered with minimal assistance with set up. States to be feeling good and anxious to go home.
[2017-01-25] MEDS: 0.9% Sodium Chloride 1,000 ML IV SCH (19:33)
[2017-01-25 21:04] VITALS: BP 116/63; PULSE 93; RESP 18; O2SAT 96
--- NOTE | 2017-01-25 23:23 | PCM.PNMED ---
Subjective Date of Service January 25, 2017 Subjective The patient is feeling about the same. She has no new complaints. Exam Vital Signs Vital Sign - Last Date Time Temp Pulse Resp B/P Pulse Ox O2 Delivery O2 Flow Rate FiO2 01/25/17 21:04 36.7 93 18 116/63 96 Room Air 01/19/17 09:55 2 Intake and Output 01/24/17 01/24/17 01/25/17 Cumulative From/Thru 15:00 23:00 07:00 12/16/16 22:37 - 01/25/17 06:02 Intake Total 388 ml 808 ml 856 ml 05548 ml Output Total 955 ml 905 ml 1762 ml 35369 ml Balance -567 ml -97 ml -906 ml 1181 ml Intake Oral 118 ml 613 ml 218 ml 13024 ml IV Total 270 ml 195 ml 628 ml 28221 ml TPN/PPN 500 ml Packed Cells 1500 ml Tube Irrigant 10 ml 120 ml Output Urine Total 950 ml 900 ml 1750 ml 81488 ml Urine/Stool Mix 203 ml Emesis 50 ml Drainage Total 5 ml 5 ml 12 ml 1298 ml # Voids 35 # Bowel Movements 0 28 Exam General: Patient is in no apparent distress. Patient is cachectic. HEENT: Head is atraumatic and normocephalic. Eyes: Pupils are equally round and reactive to light and accommodation. Extraocular muscles are intact. Sclera are white, anicteric. Subconjunctival mucosa is pink. Ears and nose are unremarkable. Oropharynx: There is no mucosal lesions, there is no thrush, there is no pharyngitis. Neck: Is supple, there are no nodes, or masses or tenderness. Chest: Is clear to auscultation and percussion. There are no rales, rhonchi, wheezes or rubs. Heart: Rate, rhythm is regular. There is no murmur, rub or gallop. Abdomen: Good bowel sounds are present. Abdomen is soft, nontender, no organomegaly or masses were appreciated. Right upper quadrant drain is in place. Extremities: Are symmetrical and well perfused. There is no edema, there is no cellulitis, no rash. Neurologic: There are no focal neurological deficits. Cranial nerves II through XII are intact. There are no sensory or motor deficits. Psychiatric: Patients mood is calm and shows no sign of agitation. Genital: Deferred Rectal: Deferred Lab and Diagnostics Result Diagram: 01/25/1761401/25/17614 Microbiology Name: STEWART UREÑA Age/Sex: 81/F Attend Dr: Gladys Fowler Acct: [id number] Unit: [id number] Status: ADM IN [place] [facility] [place] Re12/17/16 Disch: Specimen: [id number] Collected: 12/17/16-UNK Status: COMP Req#: [id number] Received: 12/17/16 Source: IRA Boyd Desc : Subm Dr: Jose Sam MD Ordered: CS & ANAC & GS Comments: Collected by Nurse/Unit? Y/N Y Comment: LIVER FLUID COLLECTION Procedure Result Verified Site Microbiology JOY GS (GRAM STAIN) Final 12/17/16 GRAM STAIN RESULT MANY POLYS MODERATE GRAM NEG RODS JOY CULT AEROBIC Final 12/24/16-807 Organism 1 ESCHERICHIA COLI COLONY COUNT/QUANTITY MODERATE GROWTH Organism 2 KLEBSIELLA PNEUMONIAE COLONY COUNT/QUANTITY MODERATE GROWTH 1. ESCHERICHIA COLI M.I.C Interp --------- ------ * AMIKACIN <=2 S * AMPICILLIN <=2 S * AMPICILLIN/SULBACTAM <=2 S * CEFEPIME <=1 S * CEFOXITIN <=4 S * CEFTRIAXONE <=1 S * CIPROFLOXACIN <=0.25 S * ERTAPENEM <=0.5 S * GENTAMICIN <=1 S * MEROPENEM <=0.25 S * TOBRAMYCIN <=1 S * TRIMETHOPRIM/SULFAMETHOXAZOLE <=20 S * PIPERACILLIN/TAZOBACTAM <=4 S 2. KLEBSIELLA PNEUMONIAE M.I.C Interp --------- ------ * AMIKACIN <=2 S * AMPICILLIN >=32 R * AMPICILLIN/SULBACTAM 4 S * CEFEPIME <=1 S * CEFOXITIN <=4 S * CEFTRIAXONE <=1 S * CIPROFLOXACIN <=0.25 S * ERTAPENEM <=0.5 S CONTINUED ON NEXT PAGE RUN DATE: 12/24/16 [facility] LIVE PAGE 2 RUN TIME: 08 Specimen Inquiry PHYSICIAN Patient: STEWART UREÑA [id number] (Continued) Specimen: [id number] Collected: 12/17/16-SIXTO Received: 12/17/16 (Continued) Procedure Result Verified Site JOY CULT AEROBIC Final (continued) 12/24/16 2. KLEBSIELLA PNEUMONIAE (continued) M.I.C Interp --------- ------ * GENTAMICIN <=1 S * MEROPENEM <=0.25 S * TOBRAMYCIN <=1 S * TRIMETHOPRIM/SULFAMETHOXAZOLE <=20 S * PIPERACILLIN/TAZOBACTAM <=4 S Microbiology (Continued) ANAEROBIC CULTURE Final 12/24/16 No anaerobes isolated X-Rays, CTs and MRIs CT Abd / Pelvis Interpretation CONCLUSION: Heterogeneous appearing liver with a focal hypodense area noted in the liver measuring up to 14cm in size. Possible considerations include infection and tumor. Pelvic mass in the region of the uterus. While fibroid is a consideration. Other tumor would be difficult to exclude. Findings suggestion of constipation. Cardiomegaly. 5mm left lower pulmonary nodule. Radiologist: Andrea Singh MD PROCEDURE: 1. Sinogram through existing catheter. 2. Drain exchange and reposition. 3. Conscious sedation x21 minutes. IMPRESSION: Drainage catheter upsizing and repositioning as described above. Pigtail catheter is now within the superior aspect of the abscess cavity, which appears to contain viscous contents. Dictated by: Junito Cardozo M.D. 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 Bynum oncology), found to be liver abscess s/p IR drain/ ertapenem for kleb/ecoli bacteremia/abscess. Presented to the ED complaining of upper abdominal pain in achy bandlike. no associated UTIs. Escherichia coli and klebsiella Acute liver abscess WITH BACTEREMIA , present on admission. Ongoing -Liver drain output was minimal but on repeat imaging 12/30 shows persistence of liver abscess , Underwent successful repositioning and upsizing of liver abscess drain 12/31. Now draining. Continue flushing the drain every shift - CT-guided drain placement for a hepatic abscess on 12/17/[address] Joel .repositioning and upsizing of liver abscess drain 12/[address] Cardozo - Discontinued ertapenem (12/20/16-01/16/17) started IV Rocephin and Flagyl. Cipro was discontinued (01/15/17) per recommendation of Dr. Webber -Patient had on and off fevers a few days prior. Now resolved, afebrile for past several days. Blood culture sent on 01/01 show no growth -There was no echocardiogram since cultures did not show a gram positive organism, therefore, unlikely endocarditis risk. - Based on CT findings, demonstrating only a 20% reduction in abscess size. Repeat CT scan today shows significant reduction in size of the inferior and superior loculations of the abscess. See x-ray report above - PEG tube now replaced, drainage has been suboptimal considering size of abscess recently assessed on CT. - Replacement of liver drainage tube complete 01/14/17 - Discussed with Dr. Lopez of GI today. He recommends continuing external drainage of abscess for now. Epigastric pain improved -Continue to use Maalox prior to eating -Start sucralfate -Add Grasshopper/GI cocktail prior to eating for comfort -Continue omeprazole -EGD yesterday showed telangiectasias actively bleeding but no signs of gastric ulcers - HIDA Scan within normal limits -Dr. Sam following Hypokalemia (resolved) -Patient's potassium is 3.4 (01/19/2017) today potassium is normalized to 3.9 -Replete with IV potassium 40 mEq 1 dose (01/19/2017) -Continue to monitor Acute sepsis, present on admission, clinically/leucocytosis resolved. - Initial Vital signs in the ED: Temperature 37.9, pulse 115, respiratory rate 18, blood pressure 126/57, with a map of 80, pulse ox 100% on room air.White blood cell count 21.8 with 90.5% neutrophils, now resolved. Acute left upper extremity DVT at site of PICC line. Not present on admission - PICC line removed on 12/20 - Per discussion with hematology (Dr. Travis on 12/[address] Bynum on 12/23) - treat patient with Lovenox given extent of DVT despite possible risk of bleeding FROM HER HHT. -Risks and benefits were discussed with patient on 12/20 -Oral anticoagulation hasn't been started given drain in place was required repositioning and upsizing. May consider initiating NOACs upon discharge or warfarin with Lovenox bridging after Hepatic tube is removed. Normocytic normochromic Anemia requiring transfusions, present on admission - Secondary Gastric and duodenal hereditary hemorrhagic telangiectasia - Followup daily H/H. - Hemoglobin 6.9 on 12/30, transfused 2 PRBCs 12/30. 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 History of Ulcerated gastroesophageal junction, with history of upper GI bleed s /p omental patch - Stable Cachexia, chronic, present on admission, active -Continue to encourage oral intake Chronic constipation, present on admission, ongoing - Continue with stool softeners and enema Hypothyroidism, chronic - Status post partial thyroidectomy - Continue patient's home medication - Follow up TSH Dispo: The patient may be able to be discharged to [facility] [place] with a drain in place early next week. Pain Evaluation: Adequate Pain Control VTE Prophylaxis: Sub-Q Heparin (Unfractionated) VTE Mechanical Devices: Intermittant Pneumatic CD Resuscitation Status: CPR: Attempt Resuscitation Nelson Centeno MD January 25, 2017 23:22
[2017-01-26 04:57] VITALS: BP 134/67; PULSE 80; RESP 16; O2SAT 97
[2017-01-26] MEDS: Pantoprazole 20 mg ER24 Tablet PO SCH ×2 (08:09→17:08)
[2017-01-26] MEDS: Sucralfate 1,000 mg Tablet PO SCH ×4 (08:09→21:23)
[2017-01-26] MEDS: Polyethylene Glycol (PEG) 17 Gm Powder PO SCH (08:10)
[2017-01-26] MEDS: cefTRIAXone Inj 2,000 MG in Dextrose 5% Minibag Plus 50 ML IV SCH (11:23)
[2017-01-26 11:30] VITALS: PULSE 82; RESP 14
--- NOTE | 2017-01-26 11:45 | NUR ---
Social Work: readiness for discharge: Data:EMR reviewed. Pt is on day 38 of hospitalization for hepatic abscess mass per H&P. Pt is not medically stable, anticipate 1-2 more days. MD in morning rounds states decision will likely not be made until tomorrow if pt will remain with drain in place at discharge and if pt will need IV abx. ID, hospitalist, and GI all following pt and will make a decision. Pt cannot return to [facility] if she requires IV abx or has the drain. Pt would return to [facility], pending bedside assessment, if she does not have the drain and is on PO abx. Per ID MD note from Friday, likely pt will be able to leave on PO abx. If pt needs to d/c with drain and/or with IVABX, the plan continues to be for pt to go to [facility], which has previously accepted her. Insurance authorization will need to be obtained. DESTINEE attempted to call Dorothy at [facility] [phone] to inform her of decision not being made yet regarding drain, Dorothy's phone is not currently taking calls. SW to follow up tomorrow. Paperwork and PASRR in the chart. SW will continue to follow. Assessment: Pt who is independent at baseline. Plan: [place] [facility] [place] [facility]. If pt does need the drain and/or IV abx then pt will need to go to SNF. If drain is taken out and pt is transitioned to oral abx then pt can return to [facility], following beside assessment. DESTINEE called Dorothy at [facility] and was not able to leave a message. SW to follow up with [facility] again tomorrow when more information is known regarding discharge needs. SOHAN Galye
[2017-01-26 12:12] VITALS: BP 125/73; PULSE 87; RESP 16; O2SAT 96
[2017-01-26] MEDS: 0.9% Sodium Chloride 1,000 ML IV SCH (15:19)
--- NOTE | 2017-01-26 18:38 | NUR ---
Activity/pain Pt up with an aide for laps around the unit several times. Appears upbeat, excited to be getting discharged soon. Has denied pain all shift.
[2017-01-26 21:02] VITALS: BP 127/72; PULSE 90; RESP 16; O2SAT 96
--- NOTE | 2017-01-26 23:49 | PCM.PNMED ---
Subjective Date of Service January 26, 2017 Subjective Patient is feeling well enough to read for the first time since admission to the hospital. She asked her friends to bring a book for her to read. She has no new complaints today. Exam Vital Signs Vital Sign - Last Date Time Temp Pulse Resp B/P Pulse Ox O2 Delivery O2 Flow Rate FiO2 01/26/17 21:02 36.9 90 16 127/72 96 Room Air Intake and Output 01/25/17 01/25/17 01/26/17 Cumulative From/Thru 15:00 23:00 07:00 12/16/16 22:37 - 01/26/17 06:13 Intake Total 231 ml 800 ml 677 ml 66134 ml Output Total 655 ml 960 ml 34987 ml Balance 231 ml 145 ml -283 ml 1274 ml Intake Oral 800 ml 100 ml 68807 ml IV Total 231 ml 577 ml 40268 ml TPN/PPN 500 ml Packed Cells 1500 ml Tube Irrigant 120 ml Output Urine Total 650 ml 950 ml 11349 ml Urine/Stool Mix 203 ml Emesis 50 ml Drainage Total 5 ml 10 ml 1313 ml # Voids 1 36 # Bowel Movements 1 30 Exam General: Patient is in no apparent distress. Patient is cachectic. She appears to be in good spirits. HEENT: Head is atraumatic and normocephalic. Eyes: Pupils are equally round and reactive to light and accommodation. Extraocular muscles are intact. Sclera are white, anicteric. Subconjunctival mucosa is pink. Ears and nose are unremarkable. Oropharynx: There is no mucosal lesions, there is no thrush, there is no pharyngitis. Neck: Is supple, there are no nodes, or masses or tenderness. Chest: Is clear to auscultation and percussion. There are no rales, rhonchi, wheezes or rubs. Heart: Rate, rhythm is regular. There is no murmur, rub or gallop. Abdomen: Good bowel sounds are present. Abdomen is soft, nontender, no organomegaly or masses were appreciated. Right upper quadrant drain is in place. Extremities: Are symmetrical and well perfused. There is no edema, there is no cellulitis, no rash. Neurologic: There are no focal neurological deficits. Cranial nerves II through XII are intact. There are no sensory or motor deficits. Psychiatric: Patients mood is calm and shows no sign of agitation. Genital: Deferred Rectal: Deferred Lab and Diagnostics Result Diagram: 01/25/1761401/25/17614 Microbiology Name: STEWART UREÑA Age/Sex: 81/F Attend Dr: Gladys Fowler Acct: [id number] Unit: [id number] Status: ADM IN [place] [facility] [place]25-1 Re12/17/16 Disch: Specimen: [id number] Collected: 12/17/16-UNK Status: COMP Req#: [id number] Received: 12/17/16 Source: IRA Boyd Desc : Subm Dr: Jose Sam MD Ordered: CS & ANAC & GS Comments: Collected by Nurse/Unit? Y/N Y Comment: LIVER FLUID COLLECTION Procedure Result Verified Site Microbiology JOY GS (GRAM STAIN) Final 12/17/16-2201 GRAM STAIN RESULT MANY POLYS MODERATE GRAM NEG RODS JOY CULT AEROBIC Final 12/24/16-807 Organism 1 ESCHERICHIA COLI COLONY COUNT/QUANTITY MODERATE GROWTH Organism 2 KLEBSIELLA PNEUMONIAE COLONY COUNT/QUANTITY MODERATE GROWTH 1. ESCHERICHIA COLI M.I.C Interp --------- ------ * AMIKACIN <=2 S * AMPICILLIN <=2 S * AMPICILLIN/SULBACTAM <=2 S * CEFEPIME <=1 S * CEFOXITIN <=4 S * CEFTRIAXONE <=1 S * CIPROFLOXACIN <=0.25 S * ERTAPENEM <=0.5 S * GENTAMICIN <=1 S * MEROPENEM <=0.25 S * TOBRAMYCIN <=1 S * TRIMETHOPRIM/SULFAMETHOXAZOLE <=20 S * PIPERACILLIN/TAZOBACTAM <=4 S 2. KLEBSIELLA PNEUMONIAE M.I.C Interp --------- ------ * AMIKACIN <=2 S * AMPICILLIN >=32 R * AMPICILLIN/SULBACTAM 4 S * CEFEPIME <=1 S * CEFOXITIN <=4 S * CEFTRIAXONE <=1 S * CIPROFLOXACIN <=0.25 S * ERTAPENEM <=0.5 S CONTINUED ON NEXT PAGE RUN DATE: 12/24/16 [facility] LIVE PAGE 2 RUN TIME: 807 Specimen Inquiry PHYSICIAN Patient: STEWART UREÑA [id number] (Continued) Specimen: [id number] Collected: 12/17/16-SIXTO Received: 12/17/16 (Continued) Procedure Result Verified Site JOY CULT AEROBIC Final (continued) 12/24/16 2. KLEBSIELLA PNEUMONIAE (continued) M.I.C Interp --------- ------ * GENTAMICIN <=1 S * MEROPENEM <=0.25 S * TOBRAMYCIN <=1 S * TRIMETHOPRIM/SULFAMETHOXAZOLE <=20 S * PIPERACILLIN/TAZOBACTAM <=4 S Microbiology (Continued) ANAEROBIC CULTURE Final 12/24/16 No anaerobes isolated X-Rays, CTs and MRIs CT Abd / Pelvis Interpretation CONCLUSION: Heterogeneous appearing liver with a focal hypodense area noted in the liver measuring up to 14cm in size. Possible considerations include infection and tumor. Pelvic mass in the region of the uterus. While fibroid is a consideration. Other tumor would be difficult to exclude. Findings suggestion of constipation. Cardiomegaly. 5mm left lower pulmonary nodule. Radiologist: Andrea Singh MD PROCEDURE: 1. Sinogram through existing catheter. 2. Drain exchange and reposition. 3. Conscious sedation x21 minutes. IMPRESSION: Drainage catheter upsizing and repositioning as described above. Pigtail catheter is now within the superior aspect of the abscess cavity, which appears to contain viscous contents. Dictated by: Junito Cardozo M.D. 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 Bynum oncology), found to be liver abscess s/p IR drain/ ertapenem for kleb/ecoli bacteremia/abscess. Presented to the ED complaining of upper abdominal pain in achy bandlike. no associated UTIs. Escherichia coli and klebsiella Acute liver abscess WITH BACTEREMIA , present on admission. Ongoing -Liver drain output was minimal but on repeat imaging 12/30 shows persistence of liver abscess , Underwent successful repositioning and upsizing of liver abscess drain 12/31. Now draining. Continue flushing the drain every shift - CT-guided drain placement for a hepatic abscess on 12/17/[address] Joel .repositioning and upsizing of liver abscess drain 12/[address] Cardozo - Discontinued ertapenem (12/20/16-01/16/17) started IV Rocephin and Flagyl. Cipro was discontinued (01/15/17) per recommendation of Dr. Webber -Patient had on and off fevers a few days prior. Now resolved, afebrile for past several days. Blood culture sent on 01/01 show no growth -There was no echocardiogram since cultures did not show a gram positive organism, therefore, unlikely endocarditis risk. - Based on CT findings, demonstrating only a 20% reduction in abscess size. Repeat CT scan today shows significant reduction in size of the inferior and superior loculations of the abscess. See x-ray report above - PEG tube now replaced, drainage has been suboptimal considering size of abscess recently assessed on CT. - Replacement of liver drainage tube complete 01/14/17 - Discussed with Dr. Lopez of GI today. He recommends continuing external drainage of abscess for now. - Plan for transfer patient to [facility] oral antibiotics which will likely be Cefdinir alone as patient will have received proximally 6 weeks of anaerobic therapy. Epigastric pain improved -Continue to use Maalox prior to eating -Start sucralfate -Add Grasshopper/GI cocktail prior to eating for comfort -Continue omeprazole -EGD yesterday showed telangiectasias actively bleeding but no signs of gastric ulcers - HIDA Scan within normal limits -Dr. Sam following Hypokalemia (resolved) -Patient's potassium is 3.4 (01/19/2017) today potassium is normalized to 3.9 -Replete with IV potassium 40 mEq 1 dose (01/19/2017) -Continue to monitor Acute sepsis, present on admission, clinically/leucocytosis resolved. - Initial Vital signs in the ED: Temperature 37.9, pulse 115, respiratory rate 18, blood pressure 126/57, with a map of 80, pulse ox 100% on room air.White blood cell count 21.8 with 90.5% neutrophils, now resolved. Acute left upper extremity DVT at site of PICC line. Not present on admission - PICC line removed on 12/20 - Per discussion with hematology (Dr. Travis on 12/[address] Bynum on 12/23) - treat patient with Lovenox given extent of DVT despite possible risk of bleeding FROM HER HHT. -Risks and benefits were discussed with patient on 12/20 -Oral anticoagulation hasn't been started given drain in place was required repositioning and upsizing. May consider initiating NOACs upon discharge or warfarin with Lovenox bridging after Hepatic tube is removed. Normocytic normochromic Anemia requiring transfusions, present on admission - Secondary Gastric and duodenal hereditary hemorrhagic telangiectasia - Followup daily H/H. - Hemoglobin 6.9 on 12/30, transfused 2 PRBCs 12/30. 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 History of Ulcerated gastroesophageal junction, with history of upper GI bleed s /p omental patch - Stable Cachexia, chronic, present on admission, active -Continue to encourage oral intake Chronic constipation, present on admission, ongoing - Continue with stool softeners and enema Hypothyroidism, chronic - Status post partial thyroidectomy - Continue patient's home medication - Follow up TSH Dispo: The patient may be able to be discharged to [facility] [place] with a drain in place early next week. Pain Evaluation: Adequate Pain Control VTE Prophylaxis: Sub-Q Heparin (Unfractionated) VTE Mechanical Devices: Intermittant Pneumatic CD Resuscitation Status: CPR: Attempt Resuscitation ColumbusNelson chi MD January 26, 2017 23:49
[2017-01-27 04:00] VITALS: BP 126/64; PULSE 75; RESP 16; O2SAT 97
--- NOTE | 2017-01-27 04:32 | NUR ---
Transfer pt transferred to [facility] [place] [facility] bed1 around 04:15, pt belongings brought with pt. VSS, afebrile, on RA. no tele. denies having pain. pigtail drain was flushed with 20mL of NS, 30mL green liquid out- total of 10mL of true output. pt stated she would like to call family in AM to notify of room change. pt A&Ox3, using the call light appropriately to make needs known.
--- NOTE | 2017-01-27 05:19 | NUR ---
Transfer from [place] pt arrived to floor per hospital bed accompanied by RN at 0420, pt a/o able to make needs known, IVF infusing, pt denies pain/discomfort, noted PEG drain, patent, oriented pt to room and call light.
[2017-01-27] MEDS: Polyethylene Glycol (PEG) 17 Gm Powder PO SCH (08:08)
[2017-01-27] MEDS: Sucralfate 1,000 mg Tablet PO SCH ×2 (08:08→11:46)
[2017-01-27] MEDS: Pantoprazole 20 mg ER24 Tablet PO SCH (08:08)
--- NOTE | 2017-01-27 08:20 | DRSVH ---
PROCEDURE: X-RAY CHEST, TWO VIEWS ([id number]) INDICATIONS: Follow up for Pleural effusion and consolidation o TECHNIQUE: 2 views of the chest were acquired. COMPARISON: [facility], CT, CT ABD PELVIS W CON, 01/12/2017, 10:00. [facility] al, CT, CT ABCESS DRAIN ORGAN, 01/10/2017, 9:40. [facility], CT, CT ABD W CON, 01/25/2017, 9:46. FINDINGS: Surgical changes and devices: Stable positioning of percutaneous hepatic drainage catheter. Surgical clips within the right superior mediastinum. Lungs and pleura: Small bibasilar pleural effusions and airspace opacities persist, otherwise lungs a re hyperinflated. The right lung shows no evidence for pneumonia. There is slight increased density a t the left base suggesting possible atelectasis versus less likely infiltrate as a cause of the left pleural effusion. Mediastinum: Mediastinal contours are normal. Heart size is normal. Bones and chest wall: No suspicious bony abnormalities. Soft tissues appear unremarkable. IMPRESSION: 1. Persistent small effusions and bibasilar airspace opacities consistent with atelectasis versus con solidation particularly on the left. 2. Stable positioning of percutaneous hepatic drainage catheter. Dictated by: Suraj Potter RRJessica Interpreted: Aníbal Archuleta MD on 01/27/2017 at 8:18 Transcribed by: LUCIA on 01/27/2017 at 8:19 Approved by: Aníbal Archuleta M.D. on 01/27/2017 at 9:20
[2017-01-27 08:30] LABS: BASOPHILS % (AUTO) 2.5 % (0-3); EOSINOPHILS % (AUTO) 3.9 % (0-5); MONOCYTES % (AUTO) 11.3 % (4-12); Mean Corpuscular Hemoglobin 29.4 pg (27.0-35.0); Mean Corpuscular Volume 94.8 fL (81-100); NEUTROPHILS % (AUTO) 52.4 % (40-74); Platelet Count 451 bil/L (150-400)
--- NOTE | 2017-01-27 09:33 | PROG NOTE ---
[address] [address] PROGRESS NOTE PATIENT: STEWART UREÑA : 1935 MR#: [id number] ADMIT: 12/17/2016 JOB ID: [id number] DATE: 01/27/2017 REASON FOR FOLLOWUP: Polymicrobial bacteremic liver abscess. INTERVAL HISTORY: Over the weekend, the patient has felt quite well. No fevers, chills, sweats. No significant cough, shortness of breath, chest pain. She has minimal to no right upper quadrant pain at this point. She is eating quite well and reports that the drain continues to produce variable amounts of output. Some days, there is little, almost zero, and other days, as much as 20 or so mL. PHYSICAL EXAMINATION: Reveals an afebrile woman. Temp 36.5, pulse 75, respiratory rate 16, blood pressure 126/64, saturating 97% on room air. In no acute distress. Mental status clear. Oral cavity negative. Lungs are quite clear. Cardiac tones without new murmur. Abdomen is soft and nontender throughout. The drain has really nothing in it this morning, and I am not certain when it was last emptied. LABORATORIES: Include white count stable at 3600, hematocrit 27, platelet count 451. Creatinine is pending from today. Our last cultures were of blood done two weeks ago basically, and these were negative. IMAGING: However, includes a chest x-ray done today which shows persistent small effusions and bibasilar atelectasis. The abdominal CT scan, done on the , showed interval decrease in the size of the previously identified fluid collection, bilateral pleural effusions with probable atelectasis noted. Note that both the inferior and superior portions of the liver abscess have relatively decreased in concert which suggests that they are connected in some way. Steadily improving liver abscess in a patient who has now been here at the hospital for six weeks, as of today. Her initial therapy was primarily with ertapenem for a month and lately has been ceftriaxone and Flagyl. The patient is currently being prepared for [facility] a prison facility. We could continue there with ceftriaxone and Flagyl, but I think at this point, it may be reasonable to transition to oral therapy as she has received six weeks basically of IV treatment with fairly good results and we have no evidence of ongoing infection. RECOMMENDATIONS: 1. After considerable thought, and reviewing this case with Dr. Theo Centeno, I think it is reasonable to transition at this point, to oral therapy. The two choices would be cefdinir or Augmentin, and perhaps cefdinir would be somewhat better tolerated. The disadvantages of continuing with IV is that she has already had a DVT in one arm and would be at additional risk for complications of prolonged IV access, and we have already completed our initial six weeks of IV. 2. The patient can be transferred to the prison facility as early as today with a dose of cefdinir 300 mg p.o. b.i.d. 3. How long to continue with the cefdinir is unclear to me, but I would consider at least six weeks which would take us through early March. A potential stop day would be around March 11. This stop date is tentative though, and will need to be adjusted depending on how her liver abscess is progressing. 4. At a minimum, weekly labs should include a CBC and CMP. This can be monitored by the physician at [facility] where she is said to be going, or I can follow these labs if desired. If I am to continue to follow this patient, please schedule her for a followup with me on February 05, in my office. If not, the patient can be followed by the GI team as well as by a physician who oversees the case at [facility] in [place].
--- NOTE | 2017-01-27 11:03 | NUR ---
Called and spoke with Cris Castro CM at [facility] and she is reviewing patient for transfer to [facility] today. Addendum: 01/27/17 at 1130 by JOSI SKY CM Patient has been approved for transfer to [facility] today this is approved by Cris Castro CM [facility]. [facility] will transport at 1330 spoke with Philip Keller in admissions at [facility]. Updated FIRE ALARM OPERATOR Addendum: 01/27/17 at 1145 by JOSI SKY CM Faxed orders to [facility], placed copy on chart and they will transport at 1330. Updated FIRE ALARM OPERATOR
--- NOTE | 2017-01-27 11:08 | PCM.DIMED ---
Discharge Instructions Date of Service January 27, 2017 Dates of Hospitalization Dec 17, 2016 at 05:17 Discharge Diagnosis Discharge Diagnosis Liver Abscess Diet Discharge Diet: No restrictions Activity Discharge Activity: No restrictions (Patient may resume her usual activities gradually as tolerated.) Call your provider Call your provider for: Fever or Chills, Shortness of breath, Bleeding, Chest pain, Vomitting, Excessive diarrhea, Weakness (unilateral), Other Patient Instructions Follow-up Provider: Macy Baird MD Follow-up with PCP in: 1 week Provider: Jose Sam MD Follow-up in: 2 weeks Mid-level Provider (F9): Miller Bynum MD Follow-up with Mid-level in: 2 weeks Nelson Centeno MD January 27, 2017 11:08
[2017-01-27] MEDS ORDERED: CEFD300C3 PO (11:10)
--- NOTE | 2017-01-27 11:11 | PCM.DIMED ---
Discharge Instructions Date of Service January 27, 2017 Dates of Hospitalization Dec 17, 2016 at 05:17 Discharge Diagnosis Discharge Diagnosis Liver Abscess Diet Discharge Diet: No restrictions Activity Discharge Activity: No restrictions (Patient may resume her usual activities gradually as tolerated.) Call your provider Call your provider for: Fever or Chills, Shortness of breath, Bleeding, Chest pain, Vomitting, Excessive diarrhea, Weakness (unilateral), Other Patient Instructions Follow-up Provider: Macy Baird MD Follow-up with PCP in: 1 week Provider: Jose Sam MD Follow-up in: 2 weeks Mid-level Provider (F9): Miller Bynum MD Follow-up with Mid-level in: 2 weeks Additional Information Follow up with Dr. Webber in 2-4 weeks. Nelson Centeno MD January 27, 2017 11:11
[2017-01-27] MEDS: cefTRIAXone Inj 2,000 MG in Dextrose 5% Minibag Plus 50 ML IV SCH (11:46)
--- NOTE | 2017-01-27 11:46 | NUR ---
Social Work Note - Discharge Note: D/A: The Pt is an 81 y/o female that was admitted on 12/17/16 for hepatic abscess mass. The Pt is now ready to discharge to [facility] and has been accepted with MD Bautista to follow. The Pt to discharge to [facility] with drain and po Abx. Insurance auth has been obtained through [employer]. SW met with Pt to discuss discharge plan, Pt would prefer for daughter Lina to transport her to [facility]. SW placed call to Lina Mills agreeable to shrimp picker the Pt at 1:30pm and transport her to [facility]. Pt denies any other needs at this time, SW to follow if needs arise. P: The Pt to be discharge to [facility] today at 1:30pm with daughter providing POV transportation. Discharge packet to be given to daughter. MD Bautista to follow at [facility]. Pt to discharge with drain and po Abx. Pt denies any other needs at this time, SW to follow if needs arise. Rosalie Castro MSW Animal Maintenance Supervisor SOHAN Gayle
--- NOTE | 2017-01-27 13:41 | NUR ---
Discharge/drain/personal care Drain flushed with 10 ml of sterile water, 5 ml returned green/yellow in color. flush process easy. Bath provided prior to DC, shampoo cap. Able to complete most of bath herself, washed back and applied lotion. brushed teeth and took self to BR prior to DC. Called report to Lina at [facility]. Taken down in w/ch to SNF in private auto. All belongings sent. Phone branch manager in daughters purse. Packet given to daughter for SNF.
--- NOTE | 2017-01-27 14:48 | PROG NOTE ---
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 She is feeling much stronger. Gastroenterology recommended against removal of her percutaneous biliary drain as long as she continues to have significant output. She has been afebrile. She is hoping to either go home or to [facility] in the near future. OBJECTIVE: Vitals: T 36.5, P 75, R 16, BP 126/64. HEENT: Conjunctivae slightly pale. Mucous membranes moist. No oral lesions. Nodes: No adenopathy in the neck or axilla. Chest clear. Cardiac exam: Regular rate and rhythm. Abdomen: Soft, nontender. Right hepatic drain intact. Extremities: No edema, 2+ distal pulses. Extensive muscular wasting. LABORATORIES: WBC 3.6 with 52% neutrophils, hemoglobin 8.4, hematocrit 27.1%, platelets 451,000. BUN 9. Creatinine less than 0.3. Glucose 90. ASSESSMENT AND PLAN: 1. Hereditary hemorrhagic telangiectasia: No clear indication for transfusion support at this time. Continue to monitor. If discharged, please schedule [facility]up [facility] in about two weeks with CBC, differential, platelets, and type and cross in the event that she needs transfusion. 2. Right liver abscess: Abscess culture was positive for E. coli and Klebsiella. She remains on broad-spectrum antibiotics.
--- NOTE | 2017-01-28 00:16 | PCM.DC.MED ---
Discharge Summary Date of Service January 27, 2017 Dates of Hospitalization Date of Hospital Admission Dec 17, 2016 at 05:17 Date of Discharge: January 27, 2017 Providers: Admitting Physician: Gladys Fwoler DO Primary Care Physician: Macy Baird MD Attending Physician: Gladys Fowler DO Diagnosis at Time of Discharge Diagnosis at Time of Discharge Liver Abscess Procedures XRay, CTs & MRIs CT Abd / Pelvis Interpretation CONCLUSION: Heterogeneous appearing liver with a focal hypodense area noted in the liver measuring up to 14cm in size. Possible considerations include infection and tumor. Pelvic mass in the region of the uterus. While fibroid is a consideration. Other tumor would be difficult to exclude. Findings suggestion of constipation. Cardiomegaly. 5mm left lower pulmonary nodule. Radiologist: Andrea Singh MD PROCEDURE: 1. Sinogram through existing catheter. 2. Drain exchange and reposition. 3. Conscious sedation x21 minutes. IMPRESSION: Drainage catheter upsizing and repositioning as described above. Pigtail catheter is now within the superior aspect of the abscess cavity, which appears to contain viscous contents. Dictated by: Junito Cardozo M.D. on 12/31/2016 at 13:15 Brief History This is a very pleasant 80 Y/O F with a Hx of hereditary hemorrhagic telangiectasia, resulting in frequent GI bleeds, hx of multiple blood transfusions on biweekly basis for two years, hx of gastric perforation requiring omental patch on 10/31/2016, chronic constipation secondary to large pelvic mass (likely uterine fibroid), hypothyroidism, and rapidly enlarging liver mass (followed by Dr. Bynum oncology as an outpatient), that has doubled in size in the span of 2 weeks. Patient presented to the ED complaining of upper abdominal pain in a bandlike distribution described as well and achy. Pain is 5 out of 10 at its worst, and 1 out of 10 on IV Dilaudid. Patient states she has been having pain like this on off and on for several weeks. However pain became acutely worse yesterday and has been constant since that time. Patient had subjective fever of 103F prior to arrival in ED. Her last CT scan was on November 27 which showed increasing size of a cystic focus within the right hepatic lobe which may represent abscess versus neoplasm. Vision was admitted to the hospital service for further evaluation and treatment. Hospital Course Patient is a 80 year old female with hereditary hemorrhagic telangiectasia (HHT ) associated w/ GI bleeds/blood transfusions biweekly/gastric perforation- omental patch 10/2016, chronic constipation secondary to large pelvic mass ( likely uterine fibroid), hypothyroidism, and rapidly enlarging liver mass ( followed by Dr. Bynum oncology), found to be liver abscess s/p IR drain/ ertapenem for kleb/ecoli bacteremia/abscess. Presented to the ED complaining of upper abdominal pain in achy bandlike. no associated UTIs. Escherichia coli and klebsiella Acute liver abscess WITH BACTEREMIA , present on admission. Ongoing -Liver drain output was minimal but on repeat imaging 12/30 shows persistence of liver abscess , Underwent successful repositioning and upsizing of liver abscess drain 12/31. Now draining. Continue flushing the drain every shift - CT-guided drain placement for a hepatic abscess on 12/17/[address] Joel .repositioning and upsizing of liver abscess drain 12/[address] Cardozo - Discontinued ertapenem (12/20/16-01/16/17) started IV Rocephin and Flagyl. Cipro was discontinued (01/15/17) per recommendation of Dr. Webber -Patient had on and off fevers a few days prior. Now resolved, afebrile for past several days. Blood culture sent on 01/01 show no growth -There was no echocardiogram since cultures did not show a gram positive organism, therefore, unlikely endocarditis risk. - Based on CT findings, demonstrating only a 20% reduction in abscess size. Repeat CT scan today shows significant reduction in size of the inferior and superior loculations of the abscess. See x-ray report above - PEG tube now replaced, drainage has been suboptimal considering size of abscess recently assessed on CT. - Replacement of liver drainage tube complete 01/14/17 - Discussed with Dr. Lopez of GI today. He recommends continuing external drainage of abscess for now. - Plan for transfer patient to [facility] oral antibiotics which will likely be Cefdinir alone as patient will have received proximally 6 weeks of anaerobic therapy. Epigastric pain improved -Continue to use Maalox prior to eating -Start sucralfate -Add Grasshopper/GI cocktail prior to eating for comfort -Continue omeprazole -EGD yesterday showed telangiectasias actively bleeding but no signs of gastric ulcers - HIDA Scan within normal limits -Dr. Sam following Hypokalemia (resolved) -Patient's potassium is 3.4 (01/19/2017) today potassium is normalized to 3.9 -Replete with IV potassium 40 mEq 1 dose (01/19/2017) -Continue to monitor Acute sepsis, present on admission, clinically/leucocytosis resolved. - Initial Vital signs in the ED: Temperature 37.9, pulse 115, respiratory rate 18, blood pressure 126/57, with a map of 80, pulse ox 100% on room air.White blood cell count 21.8 with 90.5% neutrophils, now resolved. Acute left upper extremity DVT at site of PICC line. Not present on admission - PICC line removed on 12/20 - Per discussion with hematology (Dr. Travis on 12/[address] Bynum on 12/23) - treat patient with Lovenox given extent of DVT despite possible risk of bleeding FROM HER HHT. -Risks and benefits were discussed with patient on 12/20 -Oral anticoagulation hasn't been started given drain in place was required repositioning and upsizing. May consider initiating NOACs upon discharge or warfarin with Lovenox bridging after Hepatic tube is removed. Normocytic normochromic Anemia requiring transfusions, present on admission - Secondary Gastric and duodenal hereditary hemorrhagic telangiectasia - Followup daily H/H. - Hemoglobin 6.9 on 12/30, transfused 2 PRBCs 12/30. 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 History of Ulcerated gastroesophageal junction, with history of upper GI bleed s /p omental patch - Stable Cachexia, chronic, present on admission, active -Continue to encourage oral intake Chronic constipation, present on admission, ongoing - Continue with stool softeners and enema Hypothyroidism, chronic - Status post partial thyroidectomy - Continue patient's home medication - Follow up TSH Dispo: The patient may be able to be discharged to [facility] with a drain in place today. Exam Vital Signs (Last) Date Time Temp Pulse Resp B/P Pulse Ox O2 Delivery O2 Flow Rate FiO2 01/27/17 04:00 36.5 75 16 126/64 97 Room Air Exam General: Patient is in no apparent distress. Patient is cachectic. She appears to be in good spirits. HEENT: Head is atraumatic and normocephalic. Eyes: Pupils are equally round and reactive to light and accommodation. Extraocular muscles are intact. Sclera are white, anicteric. Subconjunctival mucosa is pink. Ears and nose are unremarkable. Oropharynx: There is no mucosal lesions, there is no thrush, there is no pharyngitis. Neck: Is supple, there are no nodes, or masses or tenderness. Chest: Is clear to auscultation and percussion. There are no rales, rhonchi, wheezes or rubs. Heart: Rate, rhythm is regular. There is no murmur, rub or gallop. Abdomen: Good bowel sounds are present. Abdomen is soft, nontender, no organomegaly or masses were appreciated. Right upper quadrant drain is in place. Extremities: Are symmetrical and well perfused. There is no edema, there is no cellulitis, no rash. Neurologic: There are no focal neurological deficits. Cranial nerves II through XII are intact. There are no sensory or motor deficits. Psychiatric: Patients mood is calm and shows no sign of agitation. Genital: Deferred Rectal: Deferred Test 12/16/16 23:25 12/17/16 00:55 12/17/16 06:20 12/17/16 11:20 Troponin T < 0.010ug/L (0.0-0.011) Lipase 23U/L (13-60) Urine Color Nga (YELLOW) Urine Appearance Slightly cloudy Urine pH 5.5 (5.0-8.0) Urine Specific [place] 1.020 (1.003-1.035) Urine Protein Tracemg/dL (NEG,TRACE) Urine Glucose (UA) Negativemg/dL (NEGATIVE) Urine Ketones Tracemg/dL (NEGATIVE) Urine Occult Blood Negative (NEGATIVE) Urine Nitrite Positive (NEGATIVE) Urine Bilirubin Moderate (NEGATIVE) Urine Ictotest Positive (Negative) Urine Urobilinogen 4.0mg/dL (NORMAL) Urine Leukocyte Esterase Negative (NEGATIVE) Urine RBC 0-2/hpf (0-2) Urine WBC 0-5/hpf (0-5) Urine Epithelial Cells Many/hpf (NONE-MOD) Urine Crystals Oxalic acid crystals (NONE Urine Bacteria None/hpf (NONE-FEW) Urine Hyaline Casts None/lpf (NONE) Urine Granular Casts None seen (NONE SEEN) Urine Waxy Casts None seen (NONE SEEN) Urine Red Blood Cell Casts None seen (NONE SEEN) Urine White Blood Cell Casts None seen (NONE SEEN) Urine Mucus Present (None Seen) Urine Trichomonas None seen (NONE SEEN) Urine Yeast None (NONE SEEN) Urine Culture Reflexed Indicated Lactic Acid Level 0.9mmol/L (0.4-2.0) Activated Partial Thromboplast Time 29.6sec (22.8-33.0) Test 12/17/16 15:15 01/10/17 06:45 01/19/17 06:25 01/20/17 06:41 Direct Bilirubin 1.3mg/dL (0.0-0.3) Prothrombin Time 10.8sec (8.1-12.5) Prothromb Time International Ratio 1.01ratio Phosphorus Level 2.6mg/dL (2.5-4.9) Thyroid Stimulating Hormone (TSH) 32.590uIU/mL (0.450-4.500) Test 01/24/17 06:16 01/27/17 08:00 Erythrocyte Sedimentation Rate 20mm/hr (0-40) C-Reactive Protein 0.6mg/dL (0.0-0.5) Procalcitonin 0.08ng/mL (0.00-0.08) White Blood Count 3.6th/mm3 (3.8-10.1) Red Blood Count 2.86mil/mm3 (3.90-5.20) Hemoglobin 8.4g/dL (12.0-15.6) Hematocrit 27.1% (35.0-46.0) Mean Corpuscular Volume 94.8fL (81-100) Mean Corpuscular Hemoglobin 29.4pg (27.0-35.0) Mean Corpuscular Hemoglobin Concent 31.0% (32.0-37.0) Red Cell Distribution Width 17.0% (12.3-15.4) Platelet Count 451bil/L (150-400) Neutrophils (%) (Auto) 52.4% (40-74) Lymphocytes (%) (Auto) 29.6% (14-46) Monocytes (%) (Auto) 11.3% (4-12) Eosinophils (%) (Auto) 3.9% (0-5) Basophils (%) (Auto) 2.5% (0-3) Sodium Level 139mEq/L (134-144) Potassium Level 4.5mEq/L (3.5-5.2) Chloride Level 104mEq/L (97-108) Carbon Dioxide Level 27mmol/L (18-29) Blood Urea Nitrogen 9mg/dL (8-27) Creatinine < 0.30mg/dL (0.57-1.00) Estimat Glomerular Filtration Rate 304mL/min (>59) Glucose Level 90mg/dL (60-99) Calcium Level 9.2mg/dL (8.5-10.1) Magnesium Level 2.0mg/dL (1.6-2.6) Total Bilirubin 0.4mg/dL (0.0-1.2) Aspartate Amino Transf (AST/SGOT) 12U/L (0-50) Alanine Aminotransferase (ALT/SGPT) 6U/L (0-32) Alkaline Phosphatase 291U/L (25-165) Pro-B-Type Natriuretic Peptide 372.6pg/mL (0-738) Total Protein 5.0g/dL (6.4-8.4) Albumin 2.6g/dL (3.4-5.0) Microbiology Results Name: STEWART UREÑA Age/Sex: 81/F Attend Dr: Gladys Fowler Acct: [id number] Unit: [id number] Status: ADM IN Location: [facility] 3025-1 Re12/17/16 Disch: Specimen: [id number] Collected: 12/17/16-UNK Status: COMP Req#: [id number] Received: 12/17/16 Source: ABCESS Sp Desc : Subm Dr: Jose Sam MD Ordered: CS & ANAC & GS Comments: Collected by Nurse/Unit? Y/N Y Comment: LIVER FLUID COLLECTION Procedure Result Verified Site Microbiology JOY GS (GRAM STAIN) Final 12/17/16 GRAM STAIN RESULT MANY POLYS MODERATE GRAM NEG RODS JOY CULT AEROBIC Final 12/24/16 Organism 1 ESCHERICHIA COLI COLONY COUNT/QUANTITY MODERATE GROWTH Organism 2 KLEBSIELLA PNEUMONIAE COLONY COUNT/QUANTITY MODERATE GROWTH 1. ESCHERICHIA COLI M.I.C Interp --------- ------ * AMIKACIN <=2 S * AMPICILLIN <=2 S * AMPICILLIN/SULBACTAM <=2 S * CEFEPIME <=1 S * CEFOXITIN <=4 S * CEFTRIAXONE <=1 S * CIPROFLOXACIN <=0.25 S * ERTAPENEM <=0.5 S * GENTAMICIN <=1 S * MEROPENEM <=0.25 S * TOBRAMYCIN <=1 S * TRIMETHOPRIM/SULFAMETHOXAZOLE <=20 S * PIPERACILLIN/TAZOBACTAM <=4 S 2. KLEBSIELLA PNEUMONIAE M.I.C Interp --------- ------ * AMIKACIN <=2 S * AMPICILLIN >=32 R * AMPICILLIN/SULBACTAM 4 S * CEFEPIME <=1 S * CEFOXITIN <=4 S * CEFTRIAXONE <=1 S * CIPROFLOXACIN <=0.25 S * ERTAPENEM <=0.5 S CONTINUED ON NEXT PAGE RUN DATE: 12/24/16 [facility] LIVE PAGE 2 RUN TIME: 807 Specimen Inquiry PHYSICIAN Patient: STEWART UREÑA [id number] (Continued) Specimen: [id number] Collected: 12/17/16- Received: 12/17/16 (Continued) Procedure Result Verified Site JOY CULT AEROBIC Final (continued) 12/24/16-807 2. KLEBSIELLA PNEUMONIAE (continued) M.I.C Interp --------- ------ * GENTAMICIN <=1 S * MEROPENEM <=0.25 S * TOBRAMYCIN <=1 S * TRIMETHOPRIM/SULFAMETHOXAZOLE <=20 S * PIPERACILLIN/TAZOBACTAM <=4 S Microbiology (Continued) ANAEROBIC CULTURE Final 12/24/16-0808 No anaerobes isolated Discharge Medications Discharge Medications Cefdinir (Cefdinir) 300 Mg Capsule 300 MG PO BID Prescribed by: OKSANA CENTENO MD Norethindrone/Eth Estradiol (Zenchent) 1 Each Tablet 1 TABLET PO every 3 days ( Reported) Pantoprazole DR (Pantoprazole DR) 20 Mg Tablet.dr 20 MG PO BID (Reported) Polyethylene Glycol 3350 (Miralax) 17 Gm Powd.pack 17 GM PO DAILY (Reported) Thyroid,Pork (Reasnor Thyroid) 60 Mg Tablet 60 MG PO DAILY (Reported) As needed Ondansetron ODT (Ondansetron ODT) 4 Mg Tab.rapdis 4 MG PO q4 hours PRN PRN For Nausea (Reported) Followup Plan Disposition: Is being discharged to [facility] in [place]. Discharge Diet: No restrictions Discharge Activity: No restrictions (Patient may resume her usual activities gradually as tolerated.) Follow-up Provider: Macy Baird MD Follow-up with PCP in: 1 week Provider: Jose Sam MD Follow-up in: 2 weeks Mid-level Provider: Miller Bynum MD Follow-up with Mid-level in: 2 weeks Time spent Time spent on discharging this patient was greater than 35 minutes, over half of which was involved in counseling and coordination of care. Nelson Centeno MD January 28, 2017 00:16
== END 2017-01-27 13:30 | DRG 871 ==
LOC: SED 22:11 → MPC 12-17 05:17 → MOC 01-27 04:35
PROVIDERS: ADMIT Internal Medicine; ATTEND Internal Medicine
PROC: 0F9030Z Drainage of Liver with Drainage Device, Percutaneous Approach (ICD-10-PCS; principal; 2016-12-17)
PROC: 30233N1 Transfusion of Nonautologous Red Blood Cells into Peripheral Vein, Percutaneous Approach (ICD-10-PCS; 2016-12-30)
PROC: 0W2 Anatomical Regions, General, Change (ICD-10-PCS; 2016-12-31)
PROC: 30233N1 Transfusion of Nonautologous Red Blood Cells into Peripheral Vein, Percutaneous Approach (ICD-10-PCS; 2017-01-08)
PROC: 0F9030Z Drainage of Liver with Drainage Device, Percutaneous Approach (ICD-10-PCS; 2017-01-10)
PROC: 0W2 Anatomical Regions, General, Change (ICD-10-PCS; 2017-01-13)
PROC: 30233N1 Transfusion of Nonautologous Red Blood Cells into Peripheral Vein, Percutaneous Approach (ICD-10-PCS; 2017-01-17)
PROC: 0DJ08ZZ Inspection of Upper Intestinal Tract, Via Natural or Artificial Opening Endoscopic (ICD-10-PCS; 2017-01-19)
DX: A41.9 Sepsis, unspecified organism (principal); K75.0 Abscess of liver; I82.622 Acute embolism and thrombosis of deep veins of left upper extremity; R64 Cachexia; Z68.1 Body mass index [BMI] 19.9 or less, adult; E87.1 Hypo-osmolality and hyponatremia; E03.9 Hypothyroidism, unspecified; I78.0 Hereditary hemorrhagic telangiectasia; K59.09 Other constipation; E86.0 Dehydration; D64.9 Anemia, unspecified; K25.9 Gastric ulcer, unspecified as acute or chronic, without hemorrhage or perforation; D25.9 Leiomyoma of uterus, unspecified; B96.1 Klebsiella pneumoniae [K. pneumoniae] as the cause of diseases classified elsewhere; T81.89XA Other complications of procedures, not elsewhere classified, initial encounter; E87.6 Hypokalemia

== ENCOUNTER 2017-02-02 23:52 | Inpatient (IN) | payer MEDICARE ==
[~2017-02-02] VITALS: Ht 160 cm; Wt 43.6 kg
[~2017-02-02 23:52] MED LIST changes: +CEFD300C3 PO; +ONDA4TAB12 PO; -ONDA4TAB9 PO; +PANT20TA2 PO; -PANT40TA3 PO; -SUCR1ORA2 PO; +THYR60TA2 PO; -THYR90TA PO
[2017-02-03] VITALS (17 sets, daily range): BP systolic 93–146; BP diastolic 40–70; PULSE 79–119; RESP 14–20; O2SAT 94–99
--- NOTE | 2017-02-03 00:57 | ED.REPORT ---
HPI-Abd Pain F 40 and Over Date of Service February 03, 2017 ED Provider: Collins Kam MD Patient is an 81 year old female with a hx of HHT who presents to the ED via EMS from [facility]. She had a drain placed for a liver abscess 2 weeks ago that pulled out by approx. 10 cm 2 days ago. Patient reports that it is still draining. Associated symptoms include fever (onset yesterday) and pain at the site of the drain. She denies nausea, vomiting, or any other symptoms. She took Tylenol at [facility]. Nursing Notes Stated Complaint: ABDOMINAL WOUND Chief Complaint: Female Abdominal Pain Nursing Notes Reviewed: Yes Allergies: Coded Allergies: No Known Allergies (Verified , 12/16/16) Scheduled Cefdinir (Cefdinir) 300 Mg Capsule 300 MG PO BID Norethindrone/Eth Estradiol (Zenchent) 1 Each Tablet 1 TABLET PO every [address] (Pantoprazole DR) 20 Mg Tablet.dr 20 MG PO BID Polyethylene Glycol 3350 (Miralax) 17 Gm Powd.pack 17 GM PO DAILY Thyroid,Pork ([place] Thyroid) 60 Mg Tablet 60 MG PO DAILY Scheduled PRN Ondansetron ODT (Ondansetron ODT) 4 Mg Tab.rapdis 4 MG PO q4 hours PRN PRN For Nausea Miscellaneous Medications Thyroid,Pork ([place] Thyroid) 90 Mg Tablet General Time Seen by MD: 00:56 Chief Complaint Other (Liver abscess drain problem ) Hx Obtained From: Patient Arrived By: Ambulance Sudden in Onset?: Yes Onset Occurred: 2 days ago Symptom Duration: Since onset Recent Healthcare: Recent hospitalization Risk Factors )( AAA Risk Stratification No Hypertension, No Smoking Risk factors reviewed Past Medical History Past Medical History Notes: GI: Dr. Sam Oncologist: Dr. Bynum Past Medical History 1. Ulcerated gastroesophageal junction. 2. Irregular gastroesophageal junction. 3. Gastric and duodenal hereditary hemorrhagic telangiectasia. 4. Hypothyroidism 5. Malnutrition 6. 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 and resulting in constipation 7. Upper GI bleed transferred to [facility] for cryotherapy 8. 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 Liver abscess 10. Hereditary hemorrhagic telangiectasia Past Surgical History One lobe thyroidectomy Upper endoscopy Laparoscopic closure of anterior gastric perforation with omental patch and washout (10/31/16) Family History Noncontributory Smoking History Never Smoker Social History Other Social History: Good social support, From out of town Ambulatory Status Independent Review of Systems + liver abscess drain problem Constitutional: Reports: Fever GI: Reports: Abdominal pain, Denies: Nausea, Vomiting Complete sys rev & neg: except as marked. Physical Exam Vital Signs Vital Signs (First) Date Time Temp Pulse Resp B/P Pulse Ox O2 Delivery O2 Flow Rate FiO2 02/03/17 00:03 38.2 98 16 102/44 97 Room Air Initial VS: Reviewed, Vital signs normal Head / Eyes: Atraumatic, Normocephalic Neck: Full range of motion Skin: Warm, Dry Neurologic: Alert, Oriented, Nonfocal Psychiatric: Mood/affect normal, Behavior normal, Normal thought content General/Constitutional: Awake, Alert Appearance / Presentation: Positive: Frail Respiratory / Chest: Breath sounds NL, Breath sounds = bilat, No respiratory distress Cardiovascular: Regular rhythm, Heart sounds NL, No gallop, No murmurs, No rubs Heart Rate / Rhythm: Positive: Tachycardia Abdomen: Soft RUQ drainage tube with actively flowing bile Tube has approx 10 cm of exposure Back: Atraumatic Interpretation & Diagnostics Lab Results Interpretation Result Diagram: 02/03/17 0050 02/03/17 0050 Test 02/03/17 00:50 02/03/17 01:14 White Blood Count 7.4th/mm3 (3.8-10.1) Red Blood Count 1.84mil/mm3 (3.90-5.20) Hemoglobin 5.3g/dL (12.0-15.6) Hematocrit 17.5% (35.0-46.0) Mean Corpuscular Volume 95.1fL (81-100) Mean Corpuscular Hemoglobin 28.8pg (27.0-35.0) Mean Corpuscular Hemoglobin Concent 30.3% (32.0-37.0) Red Cell Distribution Width 16.8% (12.3-15.4) Platelet Count 354bil/L (150-400) Neutrophils (%) (Auto) 78.6% (40-74) Lymphocytes (%) (Auto) 8.5% (14-46) Monocytes (%) (Auto) 11.3% (4-12) Eosinophils (%) (Auto) 0.8% (0-5) Basophils (%) (Auto) 0.5% (0-3) Band Neutrophils % 0% (1-5) Sodium Level 139mEq/L (134-144) Potassium Level 4.0mEq/L (3.5-5.2) Chloride Level 104mEq/L (97-108) Carbon Dioxide Level 21mmol/L (18-29) Blood Urea Nitrogen 11mg/dL (8-27) Creatinine 0.30mg/dL (0.57-1.00) Estimat Glomerular Filtration Rate 304mL/min (>59) Glucose Level 109mg/dL (60-99) Lactic Acid Level 0.2mmol/L (0.4-2.0) Calcium Level 8.7mg/dL (8.5-10.1) Magnesium Level 1.9mg/dL (1.6-2.6) Total Bilirubin 0.4mg/dL (0.0-1.2) Aspartate Amino Transf (AST/SGOT) 20U/L (0-50) Alanine Aminotransferase (ALT/SGPT) 9U/L (0-32) Alkaline Phosphatase 313U/L (25-165) Total Protein 5.4g/dL (6.4-8.4) Albumin 2.8g/dL (3.4-5.0) Lipase 23U/L (13-60) Hold [place] Top Tube Received (Received) Urine Color Dark yellow (YELLOW) Urine Appearance Hazy (CLEAR,HAZY) Urine pH 6.5 (5.0-8.0) Urine Specific [place] 1.010 (1.003-1.035) Urine Protein Negativemg/dL (NEG,TRACE) Urine Glucose (UA) Negativemg/dL (NEGATIVE) Urine Ketones Negativemg/dL (NEGATIVE) Urine Occult Blood Negative (NEGATIVE) Urine Nitrite Negative (NEGATIVE) Urine Bilirubin Negative (NEGATIVE) Urine Urobilinogen 1.0mg/dL (NORMAL) Urine Leukocyte Esterase Negative (NEGATIVE) Urine RBC 0-2/hpf (0-2) Urine WBC 0-5/hpf (0-5) Urine Epithelial Cells Moderate/hpf (NONE-MOD) Urine Crystals Oxalic acid crystals (NONE Urine Bacteria Few/hpf (NONE-FEW) Urine Hyaline Casts None/lpf (NONE) Urine Granular Casts None seen (NONE SEEN) Urine Waxy Casts None seen (NONE SEEN) Urine Red Blood Cell Casts None seen (NONE SEEN) Urine White Blood Cell Casts None seen (NONE SEEN) Urine Mucus Present (None Seen) Urine Trichomonas None seen (NONE SEEN) Urine Yeast None (NONE SEEN) Urinalysis Comment None Urine Culture Reflexed Not indicated Hold Urine Received (Received) Lab Results Interpretation: Severe anemia CT Abd / Pelvis Interpretation IMPRESSION: Again seen is a percutaneous pigtail catherer with the tip in the right lobe of the liver. In comparison to the prior CT there is no significant interval chagne in the position of the tip of the pigtail catheter. There is still fluid and gas in the rigth lobe of the liver. Fabian Sun M.D. Study type: Abdominal CT IV contrast Interpretation / Wet Read by: Interpret - Radiologist Re-Eval/Medical Decision Med Decision/Clinical Course A 1-year-old female who presents concerned that her liver abscess drain is pulled out. There seems to be approximately 6-10 cm of Slack that was not there before. CT scan examination, however, showed no change in the location of the tip. She has a history of hereditary hemorrhagic telangiectasia. Her hemoglobin this morning was 5.3. She will be admitted for transfusion. Re-Evaluation/Progress : Time of Eval: 02:14 Re-Evaluation/Progress Note: Discussed plan for admission. Patient understands and agrees with plan. All questions addressed at this time. Consultation : Referral / Consult Name: ShavonnesheronGladyslachelle Horne DO Consulted With: Hospitalist Call Returned at: 04:17 Registered Dental Hygienist: Will see patient, Agrees with eval, Agrees with plan, Accepts admit Note: Discussed pt case. Accepts admit. Counseled Regarding: Diagnosis, Lab results, Need for admission Discharge & Departure Primary Impression: Severe anemia Additional Impression: HHT (hereditary hemorrhagic telangiectasia) Disposition: ADMITTED TO HOSPITAL Discharge Condition All VS Reviewed: Yes Condition: Stable Referrals: Macy Baird MD (PCP) Scribe Attestation Portions of this note were transcribed by Geneva Alfonso. I, Dr. Kam personally performed the history, physical exam and medical decision-making; I reviewed and confirmed the accuracy of the information in the transcribed note. Signed by: Geneva Alfonso 02/03/17, [id number] copies to: Macy Baird MD, Howard L MD February 03, 2017 00:57 GENEVA ALFONSO February 03, 2017 01:33
[2017-02-03] MEDS ORDERED: 0.9% Sodium Chloride 1,000 ML IV ONE (00:58)
[2017-02-03] MEDS ORDERED: Ondansetron 2 mg/mL 2 mL Inj IVPUSH PRN (01:00)
[2017-02-03 01:16] LABS: BASOPHILS % (AUTO) 0.5 % (0-3); EOSINOPHILS % (AUTO) 0.8 % (0-5); MONOCYTES % (AUTO) 11.3 % (4-12); Mean Corpuscular Hemoglobin 28.8 pg (27.0-35.0); Mean Corpuscular Volume 95.1 fL (81-100); NEUTROPHILS % (AUTO) 78.6 % (40-74); Platelet Count 354 bil/L (150-400)
[2017-02-03] MEDS: HYDROmorphone 0.5 mg/0.5 mL iSecure Syringe IVPUSH PRN ×5 (01:25→23:41)
[2017-02-03 01:39] LABS: Magnesium 1.9 mg/dL (1.6-2.6)
[2017-02-03] MEDS ORDERED: Polyethylene Glycol (PEG) 17 Gm Powder PO PRN (05:10)
[2017-02-03 05:26] LABS: APPEARANCE,URINE HAZY (CLEAR,HAZY); COLOR,URINE DARK YELLOW (YELLOW); OCCULT BLOOD,URINE NEGATIVE (NEGATIVE); PH,URINE 6.5 (5.0-8.0)
--- NOTE | 2017-02-03 05:35 | PCM.HPMED ---
Subjective Date of Service February 03, 2017 Primary Provider: Admitting Physician: Gladys Fowler DO Primary Care Physician: Macy Baird MD Attending Physician: Gladys Fowler DO Admit Status: From the Emergency Department Chief Complaint: Drain partially pulled out History of Present Illness: This is a 81-year-old female with past medical history significant for hereditary hemorrhagic telangiectasia with frequent GI bleeds requiring multiple blood transfusions on biweekly basis for years, gastric perforation in October 2016 requiring patch, and liver abscess with CT-guided drain placement on 12/17/2016 who presents for possible displacement of liver abscess drainage tube. The patient states that she noticed yesterday evening that the drainage tube for her liver abscess was "pulled out about 5 inches." She states that over the last 2 days she has had some pain around the drainage site. Beginning yesterday she had a subjective fever. She has been fatigued as of recent but states that it is no different than baseline. She also admits to dark black stools which are chronic. She denies any chest pain or pressure, shortness of breath, nausea, vomiting, diarrhea, constipation. The patient recently had a long hospital stay from December 17 to January 27 due to E coli and Klebsiella acute liver abscess with bacteremia. CT-guided drain was placed and 12/17/[address] Joel. The patient completed a month-long course of ertapenem and then was transitioned to Rocephin and Flagyl IV. On discharge she was transitioned to Cefdinir. During last hospital stay she also required several blood transfusions. She was also diagnosed at last hospital visit with acute left upper extremity DVT at site of PICC line. She was not started on oral anticoagulation at discharge. In the emergency department initial vital signs were temperature 38.2 Celsius, pulse 98, respiratory rate 16, blood pressure 102/44, satting at 97% on room air. Initial laboratory values were hemoglobin WBC 7.4 with left shift, 5.3, hematocrit 17.5, platelet count 354. BUN 11, creatinine 0.30, alkaline phosphatase 313, lactic acid 0.2. Lipase 23. CT abdomen with intravenous contrast nighthawk report showed "percutaneous pigtail catheter with the tip in the right lobe of the liver. In comparison to the prior CT there is no significant interval change in the position of the tip of the pigtail catheter. There is still fluid and gas in the right lobe of the liver." Blood type crossmatched pending. Review of Systems: A comprehensive review of systems was conducted with the patient and found to be negative except as above in the History of Present Illness. Allergies Coded Allergies: No Known Allergies (Verified , 12/16/16) Home Medications [place] Thyroid Cefdinir 300mg every 12 hours Pantoprazole 20 mg 1 tablet by oral route every 2 days PMH Hereditary hemorrhagic telangiectasias with gastric and duodenal telangiectasias. Multiple GI bleeds requiring biweekly transfusions in the last several years. Status post gastric perforation 10/25, requiring closure of the perforation. Hepatic abscess with drain in place. Hypothyroidism. Uterine fibroid mass. Malnutrition Surgical History One lobe thyroidectomy Upper endoscopy Laparoscopic closure of anterior gastric perforation with omental patch and washout (10/31/16) Family History Patient is adopted and does not know her family history Social History Hx Alcohol Use: Yes ("socially, very rarely") Hx Substance Use: No Hx Tobacco Use: No Smoking Status: Never Smoker Exam Vital Signs Vital Sign - Last Date Time Temp Pulse Resp B/P Pulse Ox O2 Delivery O2 Flow Rate FiO2 02/03/17 03:41 100 16 146/50 99 Room Air 02/03/17 00:03 38.2 Exam General: Alert and oriented 3, patient appears cachectic, lying in bed in no acute distress. HEENT: PERRLA EOMI, neck, soft supple, no adenopathy, no JVD, no masses, no thyromegaly, throat mucous membranes dry, no erythema. Lungs: Mild crackles heard bilaterally lung bases, no use of accessory muscles of respiration. Heart: Regular rate and rhythm, 3/6 systolic murmur radiating to the carotids. Abdomen: Soft, nontender to palpation, nondistended, bowel sounds active, no rebound, no guarding, Liver abscess drain in place with bandage overlaying and no erythema., Extremities: No clubbing, cyanosis, edema, or lymphadenopathy appreciated.iated Neurological: Cranial nerves grossly intact. Skin: Very thin, appears cachectic. Lab and Diagnostics Result Diagram: 02/03/17 0050 02/03/17 0050 X-Rays, CTs and MRIs CT abdomen with IV contrast nighthawk reading on 02/03/2017: Again seen is a percutaneous pigtail catheter with the tip in the right lobe of liver. In comparison to prior CT there is no significant interval change in the position of the tip of the pigtail catheter. There is still fluid and gas in the right lobe of the liver. Radiologist: Fabian Sun M.D. Assessment & Plan This is a 81-year-old female who presented after noticing that the drainage tube placed due to liver abscess had been "pulled out about [address] of the abdomen with contrast showed that tube was in place. On arrival to the emergency department she had a temperature of 38.2 Celsius. She has a history of liver abscess with bacteremia during last hospital stay and discharged on cefdinir which she continues on today. We will obtain a urine culture to rule out other sources of fever. On initial emergency department lab work she had a hemoglobin of 5.2. She admits to black stools which occur chronically. 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 Sepsis, present on admission, ongoing: -Temp 38.2c, Heart rate >90 with source of liver abscess. -IV antibiotics ceftriaxone and flagyl. Chronic liver abscess, present on admission, ongoing: -Temperature of 38.2 Celsius on arrival. -Liver abscess drain in place however recently displaced. Liver abscess culture previously grew Escherichia coli and Klebsiella. -Patient previously followed by Dr. Webber of infectious disease. Patient has persistent fever on cefdinir. Will start previous IV antibiotics of ceftriaxone and Flagyl which she was receiving during last hospital visit. -Consult Dr. Webber of infectious disease in the morning. -Blood cultures pending. -Urinalysis pending acute blood loss anemia, present on admission, ongoing: -hgb 5.3 on admission -secondary to hereditary hemorrhagic telangiectasia. -2 units of PRBCs ordered. Repeat CBC after. Hereditary hemorrhagic telangiectasia, present on admission, ongoing: -Followed by Dr. Bynum as an outpatient. -Consider consulting Dr. Bynum in the morning. History of acute left upper extremity DVT at site of PICC line: -PICC line was removed on December 20. -Patient is not on anticoagulation currently. Cachexia, present on admission, active: -Continue to encourage oral intake. Chronic constipation, present admission, ongoing: -Patient states that her stools are now soft. Hypothyroidism, present on admission, chronic: -Patient status post partial thyroidectomy. -Last TSH on 01/20/2017 was 32.590. Last free T4 was 0.38. Will repeat. -We will continue current medications while awaiting repeat blood work DVT prophylaxis with SCDs due to patient's low hemoglobin. Patient will need med req in the am. Attending Statement The patient was seen and examined together with house staff on 02/03/2017 and I agree with the history, exam and plan as outlined in the note above. Nelson Sharif DO February 03, 2017 05:35 Gladys Fowler DO February 03, 2017 07:00
[2017-02-03] MEDS ORDERED: THYR90TA (05:45)
--- NOTE | 2017-02-03 06:28 | NUR ---
Admission Patient admitted to [facility] 2001 at 0520. Admit documentation completed. Patient A&Ox3, HERNANDEZ, denies current pain. Drain in place to right upper abdomen for hepatic abscess; small amount of greenish fluid in drain. Orders received to transfuse 2 units PRBCs; awaiting notification that units are ready.
[2017-02-03] MEDS ORDERED: cefTRIAXone Inj 2,000 MG in Dextrose 5% Minibag Plus 50 ML IV SCH (06:35)
--- NOTE | 2017-02-03 08:12 | DRSVH ---
PROCEDURE: CT ABDOMEN WITH CONTRAST ([id number]) INDICATIONS: displaced drain, increasing abd pain TECHNIQUE: After the administration of oral and intravenous contrast, 5 mm thick sections acquired from the diap hragms to the iliac crests. 5 mm thick coronal and sagittal reformats were acquired. For radiation dose reduction, the following was used: automated exposure control, adjustment of mA and/or kV accor ding to patient size. COMPARISON: [facility], CT, CT ABD W CON, 01/25/2017, 9:46. FINDINGS: Image quality: Excellent. Lung bases: Lung bases are clear. Heart size is normal. Solid organs: Scattered multinodular regions of hepatic enhancement are present, as before, consisten t with intrahepatic vascular malformations. As before, there is a pigtail drainage catheter within th e right hepatic lobe abscess, which is multilocular, contains gas , as before, and has decreased slig htly in size. Gallbladder is within normal limits. Biliary system is non dilated. Pancreas enhances normally. No adrenal nodules. Kidneys are normal in size, without hydronephrosis. Peritoneum and bowel: Contrast enhanced bowel loops appear normal in caliber. No free fluid or air. Nodes and vessels: No retroperitoneal or mesenteric adenopathy by size criteria. Aorta and inferior vena cava are normal in size. Bones: No suspicious bony lesions. No vertebral body compression fractures. Miscellaneous: No ventral hernias. IMPRESSION: 1. Pigtail drainage catheter remains within the right hepatic lobe abscess. 2. 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 3. Resolution of previously seen pleural effusions. 4. Concordant with preliminary interpretation. Dictated by: Junito Cadrozo M.D. on 02/03/2017 at 8:08 Approved by: Junito Cardozo M.D. on 02/03/2017 at 8:10
[2017-02-03 08:22] LABS: BASOPHILS % (AUTO) 0.2 % (0-3); EOSINOPHILS % (AUTO) 0.2 % (0-5); MONOCYTES % (AUTO) 10.4 % (4-12); Mean Corpuscular Hemoglobin 29.7 pg (27.0-35.0); Mean Corpuscular Volume 95.6 fL (81-100); NEUTROPHILS % (AUTO) 84.4 % (40-74); Platelet Count 334 bil/L (150-400)
[2017-02-03] MEDS: metroNIDAZOLE Inj 500 MG in IV Premix 1 EACH IV SCH ×2 (08:22→20:07)
[2017-02-03] MEDS: 0.9% Sodium Chloride 250 ML IV SCH (08:22)
[2017-02-03] MEDS: Pantoprazole 20 mg ER24 Tablet PO SCH ×2 (08:22→20:08)
[2017-02-03] MEDS: Polyethylene Glycol (PEG) 17 Gm Powder PO SCH (08:23)
--- NOTE | 2017-02-03 14:54 | PCM.PNMED ---
Subjective Date of Service February 03, 2017 Subjective Patient states that she continues to feel weak, but this is not much worse than baseline. She continues to be steadfast in her desire to remain full treatment and FULL CODE, but has agreed to consider a more conservative code status in the coming days. She denies chest pain, SOB, abdominal pain, nausea and vomiting. Comprehensive ROS negative except as listed above. Exam Vital Signs Vital Sign - Last Date Time Temp Pulse Resp B/P Pulse Ox O2 Delivery O2 Flow Rate FiO2 02/03/17 14:11 36.9 96 16 110/54 02/03/17 11:28 96 Room Air Intake and Output 02/02/17 02/02/17 02/03/17 Cumulative From/Thru 15:00 23:00 07:00 02/03/17 00:03 - 02/03/17 06:11 Output Total 300 ml 300 ml Balance -300 ml -300 ml Output Urine Total 300 ml 300 ml # Voids 1 1 Exam Gen: A/O x3 pleasant cooperative elderly emaciated woman in NAD Neck: Supple, non tender, no JVD, Full ROM HEENT: PERRL, EOMI, no scleral icterus, no conjunctival pallor CV: RRR, no murmurs rubs or gallops Resp: Lungs CTA BL, no wheezing rales or rhonchi Abd: Soft, non tender, no organomegaly, +BS 4Q, Drain in place in the RUQ of the abdomen draining brown liquid Extr: No cyanosis clubbing or edema Neuro: CN 2-12 grossly intact, no focal neurologic deficit Psych: Mood and affect pleasant and appropriate IVs and Medications IV Fluids NS @ 10 ml/hr TKO 150 ml delivered with IV meds Medications Reviewed: Medications were reviewed in detail Lab and Diagnostics Item Value Date Time Red Blood Count 1.82 mil/mm3 L 02/03/17 08 Neutrophils (%) (Auto) 84.4 % H 02/03/17 0800 Lymphocytes (%) (Auto) 4.5 % L 02/03/17 08 Estimat Glomerular Filtration Rate 304 mL/min 02/03/17 005 Lactic Acid Level 0.2 mmol/L L 02/03/17 005 Calcium Level 8.7 mg/dL 02/03/17 005 Magnesium Level 1.9 mg/dL 02/03/17 005 Total Bilirubin 0.4 mg/dL 02/03/17 005 Aspartate Amino Transf (AST/SGOT) 20 U/L 02/03/17 005 Alanine Aminotransferase (ALT/SGPT) 9 U/L 02/03/17 005 Alkaline Phosphatase 313 U/L H 02/03/17 005 Total Protein 5.4 g/dL L 02/03/17 005 Albumin 2.8 g/dL L 02/03/1749 Lipase 23 U/L 02/03/1749 Procalcitonin 0.58 ng/mL H 02/03/17 08 Thyroid Stimulating Hormone (TSH) 8.030 uIU/mL H 02/03/17799 Free Thyroxine 0.47 ng/dL L 02/03/17799 Result Diagram: 02/03/1779902/03/1749 Microbiology 12/10 bottles growing Gram Positive Cocci X-Rays, CTs and MRIs CT ABDOMEN WITH CONTRAST IMPRESSION: 1. Pigtail drainage catheter remains within the right hepatic lobe abscess. 2. 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 3. Resolution of previously seen pleural effusions. 4. Concordant with preliminary interpretation. Dictated by: Junito Cardozo M.D. on 02/03/2017 at 8:08 Approved by: Junito Cardozo M.D. on 02/03/2017 at 8:10 . Assessment & Plan This is a 81-year-old female who presented after noticing that the drainage tube placed due to liver abscess had been "pulled out about [address] of the abdomen with contrast showed that tube was in place. On arrival to the emergency department she had a temperature of 38.2 Celsius. She has a history of liver abscess with bacteremia during last hospital stay and discharged on cefdinir which she continues on today. On initial emergency department lab work she had a hemoglobin of 5.2. She admits to black stools which occur chronically. 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 1. Sepsis, present on admission, resolved -Temp 38.2c, Heart rate >90 with source of liver abscess. -IV antibiotics ceftriaxone and flagyl -IVF administered upon admission, now discontinued 2. Chronic liver abscess, present on admission, ongoing: -Temperature of 38.2 Celsius on arrival. -Liver abscess drain in place however recently displaced. Liver abscess culture previously grew Escherichia coli and Klebsiella. -Patient previously followed by Dr. Webber of infectious disease. Patient has persistent fever on cefdinir. Will start previous IV antibiotics of ceftriaxone and Flagyl which she was receiving during last hospital visit. -Consult Dr. Webber of infectious disease in the morning to establish optimal outpatient antibiotic regimen -Blood cultures growing 4/4 gram positive Cocci, awaiting further culture and sensitivities -Will start Vancomycin with low threshold to discontinue with sensitivities pending -Urinalysis unremarkable 3. acute blood loss anemia, present on admission, ongoing: -Likely secondary to Hereditary hemorrhagic telangiectasia -hgb 5.3 on admission -3 units of PRBCs ordered. Repeat CBC after. 4. Hereditary hemorrhagic telangiectasia, present on admission, ongoing: -Followed by Dr. Bynum as an outpatient. -Consider consulting Dr. Bynum in the morning. 5. History of acute left upper extremity DVT at site of PICC line: -PICC line was removed on December 20. -Patient is not on anticoagulation currently. 6. Severe protein calorie malnutrition, present on admission, active: -Continue to encourage oral intake. 7. Chronic constipation, present admission, ongoing: -Patient states that her stools are now soft. 8. Hypothyroidism, present on admission, chronic: -Patient status post partial thyroidectomy. -Last TSH on 01/20/2017 was 32.590. Last free T4 was 0.38. Will repeat. -We will continue current medications while awaiting repeat blood work DVT prophylaxis with SCDs due to patient's low hemoglobin. Disposition: Patient will likely be able to DC back to previous living situation tomorrow after consultation with Dr. Webber Pain Evaluation: Adequate Pain Control GI Prophylaxis: H2 trisha VTE Prophylaxis: Other (Patient with chronic bleeding issue so anti- coagulation is withheld ) VTE Mechanical Devices: Intermittant Pneumatic CD Resuscitation Status: CPR: Attempt Resuscitation Attending Statement The patient was seen and examined together with Dr. Limon on 02/03/2017 and I agree with the history, exam and plan as outlined in the note above. . Bj Limon DO February 03, 2017 14:54 Alhaji To MD February 03, 2017 16:17
[2017-02-03] MEDS: Vancomycin Dose per Pharmacist XX SCH (14:55)
[2017-02-03] MEDS ORDERED: Vancomycin Inj 750 MG in 0.9% Sodium Chloride 250 ML IV ONE (15:35)
--- NOTE | 2017-02-03 16:11 | NUR ---
Social Work-initial assessment: Data:See initial assessment. Pt is an 80 y/o female who was admitted on02/03/17 for severe anemia per H&P. Pt's insurance is [employer] and PCP is Macy Baird MD. EMR Reviewed.SW met with pt at bedside to discuss discharge planning, SW role explained. Pt is alert and oriented x3. PT has been residing at [facility] since last admission. Pt still has drain in place. PT anticipates to return to [facility] at discharge. Pt confirms she has completed DPOA/ advanced directive and SW requested a copy of these. Pt has no termite control servicer care or VA benefits. order received for SNF placement. SW placed a call to Lashon at [facility] who confirms they are able to accept pt back when medically stable. Pt will need new authorization from [employer]. SW provided phone number and plan on white board in room. Pt anticipates her daughter will provide transport. Paperwork placed in the chart. SW will continue to follow. Assessment:Pt to benefit from SNF. Plan:Pt to discharge back to [facility] when medically stable. [employer] authorization will need to be obtained. Paperwork placed in the chart. SW will continue to follow. SOHAN Gayle Addendum: 02/03/17 at 1615 by GLORIA JACKSON SS Amended: Links added.
--- NOTE | 2017-02-03 16:18 | NUR ---
[facility] can accept pt back with Dr. Bautista to follow. Insurance authorization will need to be obtained prior to return. SOHAN Gayle
--- NOTE | 2017-02-03 17:51 | NUR ---
BLOOD TRANSFUSION/BLOOD CULTURES Patient's Hgb and Hct upon admit was 5.3 and 17.5, so received orders to cross-match and transfuse 2 units PRBCs. Patient received 2 units PRBCs over 2.5 hours, tolerated well, vitals remained stable throughout and no transfusion reaction noted. Repeat Hgb and Hct are 8.2 and 25.3. Vitals stable, she has been afebrile since admit to floor. Received call from alleman that 4/4 bottles from blood culture returned positive for gram positive cocci, Dr. Jones and Dr. Limon informed, Vancomycin IV ordered and administered. Will continue to monitor vitals and for s/s of sepsis.
--- NOTE | 2017-02-03 18:17 | PCM.CONPHA ---
Subjective Drain partially pulled out Reason for Pharmacy Consult: Vancomycin Dosing Objective Vital Signs Date Time Temp Pulse Resp B/P Pulse Ox O2 Delivery O2 Flow Rate FiO2 02/03/17 15:47 37.1 96 16 110/48 95 Room Air 02/03/17 14:11 36.9 96 16 110/54 02/03/17 12:30 37.1 94 15 109/49 02/03/17 12:10 37.1 98 14 112/58 02/03/17 11:55 37.2 103 16 102/52 02/03/17 11:40 37.4 98 16 110/54 02/03/17 11:28 37.6 79 16 93/44 96 Room Air 02/03/17 11:28 37.6 79 16 93/44 02/03/17 08:31 100 02/03/17 08:07 37.6 103 16 96/41 96 Room Air 02/03/17 05:32 108 02/03/17 05:20 38.2 119 20 136/70 95 Room Air 02/03/17 03:41 100 16 146/50 99 Room Air 02/03/17 01:49 97 14 120/40 94 Room Air 02/03/17 00:56 89 16 102/43 96 Room Air 02/03/17 00:03 38.2 98 16 102/44 97 Room Air Weight (Kilograms): 39.200 Height (Feet): 5 Height (Inches): 3.00 Test 02/03/17 00:50 02/03/17 01:14 02/03/17 08:00 02/03/17 16:12 Band Neutrophils % 0% (1-5) Sodium Level 139mEq/L (134-144) Potassium Level 4.0mEq/L (3.5-5.2) Chloride Level 104mEq/L (97-108) Carbon Dioxide Level 21mmol/L (18-29) Blood Urea Nitrogen 11mg/dL (8-27) Creatinine 0.30mg/dL (0.57-1.00) Estimat Glomerular Filtration Rate 304mL/min (>59) Glucose Level 109mg/dL (60-99) Lactic Acid Level 0.2mmol/L (0.4-2.0) Calcium Level 8.7mg/dL (8.5-10.1) Magnesium Level 1.9mg/dL (1.6-2.6) Total Bilirubin 0.4mg/dL (0.0-1.2) Aspartate Amino Transf (AST/SGOT) 20U/L (0-50) Alanine Aminotransferase (ALT/SGPT) 9U/L (0-32) Alkaline Phosphatase 313U/L (25-165) Total Protein 5.4g/dL (6.4-8.4) Albumin 2.8g/dL (3.4-5.0) Lipase 23U/L (13-60) Hold [place] Top Tube Received (Received) Urine Color Dark yellow (YELLOW) Urine Appearance Hazy (CLEAR,HAZY) Urine pH 6.5 (5.0-8.0) Urine Specific [place]man 1.010 (1.003-1.035) Urine Protein Negativemg/dL (NEG,TRACE) Urine Glucose (UA) Negativemg/dL (NEGATIVE) Urine Ketones Negativemg/dL (NEGATIVE) Urine Occult Blood Negative (NEGATIVE) Urine Nitrite Negative (NEGATIVE) Urine Bilirubin Negative (NEGATIVE) Urine Urobilinogen 1.0mg/dL (NORMAL) Urine Leukocyte Esterase Negative (NEGATIVE) Urine RBC 0-2/hpf (0-2) Urine WBC 0-5/hpf (0-5) Urine Epithelial Cells Moderate/hpf (NONE-MOD) Urine Crystals Oxalic acid crystals (NONE Urine Bacteria Few/hpf (NONE-FEW) Urine Hyaline Casts None/lpf (NONE) Urine Granular Casts None seen (NONE SEEN) Urine Waxy Casts None seen (NONE SEEN) Urine Red Blood Cell Casts None seen (NONE SEEN) Urine White Blood Cell Casts None seen (NONE SEEN) Urine Mucus Present (None Seen) Urine Trichomonas None seen (NONE SEEN) Urine Yeast None (NONE SEEN) Urinalysis Comment None Urine Culture Reflexed Not indicated Hold Urine Received (Received) White Blood Count 13.1th/mm3 (3.8-10.1) Red Blood Count 1.82mil/mm3 (3.90-5.20) Mean Corpuscular Volume 95.6fL (81-100) Mean Corpuscular Hemoglobin 29.7pg (27.0-35.0) Mean Corpuscular Hemoglobin Concent 31.0% (32.0-37.0) Red Cell Distribution Width 16.5% (12.3-15.4) Platelet Count 334bil/L (150-400) Neutrophils (%) (Auto) 84.4% (40-74) Lymphocytes (%) (Auto) 4.5% (14-46) Monocytes (%) (Auto) 10.4% (4-12) Eosinophils (%) (Auto) 0.2% (0-5) Basophils (%) (Auto) 0.2% (0-3) Procalcitonin 0.58ng/mL (0.00-0.08) Thyroid Stimulating Hormone (TSH) 8.030uIU/mL (0.450-4.500) Free Thyroxine 0.47ng/dL (0.82-1.77) Hemoglobin 8.2g/dL (12.0-15.6) Hematocrit 25.3% (35.0-46.0) Assessment/Plan Assessment/Plan VANCOMYCIN DOSING PER PHARMACY 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 Delia Peacock PharmD February 03, 2017 18:17
[2017-02-04 03:25] VITALS: BP 119/58; PULSE 89; RESP 16; O2SAT 97
[2017-02-04 03:35] LABS: BASOPHILS % (AUTO) 0.6 % (0-3); EOSINOPHILS % (AUTO) 1.5 % (0-5); MONOCYTES % (AUTO) 11.9 % (4-12); Mean Corpuscular Volume 92.8 fL (81-100); NEUTROPHILS % (AUTO) 73.6 % (40-74); Platelet Count 292 bil/L (150-400)
[2017-02-04 03:45] LABS: INR 1.05 ratio
[2017-02-04] MEDS ORDERED: Vancomycin Inj 500 MG in 0.9% Sodium Chloride 250 ML IV SCH (04:00)
[2017-02-04 04:01] LABS: Magnesium 1.7 mg/dL (1.6-2.6); Phosphorus 3.2 mg/dL (2.5-4.9)
[2017-02-04] MEDS: 0.9% Sodium Chloride 250 ML IV SCH (05:42)
[2017-02-04 05:46] VITALS: PULSE 87
--- NOTE | 2017-02-04 07:05 | NUR ---
GI Hepatic drain in situ. No S/Sx of bleed noted. Pt stated she feels much better after 2 units PRBC transfused yesterday. VSS. No overt complications noted.
[2017-02-04] MEDS ORDERED: NA P133E23 RC (08:06)
[2017-02-04] MEDS ORDERED: BISA10SU61 RC (08:06)
[2017-02-04] MEDS ORDERED: [UNRECOGNIZED DRUG - CODE] PO (08:06)
[2017-02-04] MEDS ORDERED: MAGN400O4 PO (08:09)
[2017-02-04] MEDS: Polyethylene Glycol (PEG) 17 Gm Powder PO SCH (08:30)
[2017-02-04] MEDS: Vancomycin Dose per Pharmacist XX SCH (08:30)
--- NOTE | 2017-02-04 08:54 | CONS ---
[address] [address] CONSULTATION REPORT PATIENT: STEWART UREÑA : 1935 MR#: [id number] ADMIT: 02/03/2017 JOB ID: [id number] DATE OF SERVICE: 02/04/2017 INFECTIOUS DISEASE CONSULTATION: REASON FOR CONSULTATION: Liver abscess now complicated with a high-grade streptococcal bacteremia. I thank Dr. Theo Sharif for this timely consult. HISTORY OF PRESENT ILLNESS: The patient is an extraordinarily complex 81-year-old woman who is well known to me from a lengthy admission which spanned almost 40 days between December 17 and her discharge January 28. This remarkably long and complex admission was precipitated by the discovery of a large liver abscess which had followed a gastric perforation that occurred in late October. She was admitted during that long hospitalization with a rapidly enlarging liver mass with severe pain and fever. On that admission blood cultures grew E coli and Klebsiella and drainage of what proved to be a liver abscess grew the same two organisms. Aggressive IV therapy as well as Interventional Radiology drainage of this large liver abscess was instituted. During almost six weeks in the hospital, the liver abscess, which has a bar iyer shape appearance, improved considerably but did not resolve. Eventually, the plan was to send her to a half-way facility with a drain still in place (note that multiple drains were used during the hospital stay) and oral Cefdinir as an antibiotic which would have activity against both the E coli and Klebsiella that we had isolated from the blood and the abscess. The patient was discharged just last week and reported that for the first several days she did well and was steadily gaining strength at the half-way facility and was in fact up and walking around without too much problems at times. On Friday, her family had a large celebration at [place] and she was invited along and left the half-way to go to the democrat. Unfortunately, the patient reports she suddenly became so weak that she could not carry on and after just 15 minutes at the [place] Family reunion she had to be taken emergently back to the nursing facility complaining of generalized weakness, myalgias and arthralgias, all of which seem quite new. She denied associated fever or chills, however. During the subsequent night of February 02 and going on to the early childhood special educator hours of February 03, it was noted by the nursing staff at the nursing facility that the liver drain seemed to have "come out" several inches. This led to great concern that perhaps the liver drain had been dislodged, and for that reason, the patient was transported here. She arrived just after midnight on June 06, which was, of course, the night following the democrat where she had felt weak. A CT scan showed that actually the drain was still in the liver abscess and was not out of position. However, it was also noted she had a low-grade temperature in the emergency department which the patient was not even aware of. It was also noted that her anemia, due to her right hereditary telangiectasia syndrome, had worsened. Because of her worsening anemia, it was decided to keep her and give her some transfusions and also to check some blood cultures and other basic labs because of her low-grade fever noted in the ED. What has transpired over the past 24 hours is that she received the two units of blood and felt somewhat better, but all blood cultures are now growing a strep species. ID consultation is requested regarding the nature of this streptococcal bacteremia. The patient states she has been surprisingly free of symptoms during her week at the half-way after having left here on the oral Cefdinir. She felt really well for several days and then weak and tired suddenly on the democrat of the . She has not had fevers, chills or sweats. She has not headache or visual change, but she has noted some mild sore throat. She has not had any cough, respiratory symptoms. She has some mild right upper quadrant pain where the drain is stuck into her liver abscess but that is unchanged from the duration of her long hospital stay here when she had that pain as well. There has been no nausea, vomiting, diarrhea or dysuria. She has not had any IVs either. 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 3. Gastric and duodenal telangiectasias. 4. Status post gastric perforation October 30 requiring surgery. 5. Large complex liver abscess discovered in December 2016 and requiring prolonged IV antibiotics as well as multiple drains. 6. DVT left arm secondary to PICC line. 7. Hypothyroidism. 8. Uterine fibroid mass. SOCIAL HISTORY: The patient is a nonsmoker, nondrinker. She and her recently moved out of their house in [place] because they were becoming too debilitated and moved to [place] [facility]. Unfortunately they were only able to spend a few days together at [place] before the patient was admitted here with her liver abscess. Subsequently her was admitted here as well for awhile but is now back at [place] and awaits her return. More recently our patient has been at [facility] for a week or so before her readmission yesterday. FAMILY HISTORY: The patient is adopted and is not aware of her family history but she does have a biologic son with hereditary hemorrhagic telangiectasias. REVIEW OF SYSTEMS: Was done in its entirety. As noted, the patient has no fevers, chills or sweats. No headache. No visual change. She has had a mild sore throat the past couple days. No dysphagia, however. She denies cough, shortness of breath or chest pain. She has some mild right upper quadrant pain where the drain is present but no nausea, vomiting or diarrhea. No dysuria, urgency or frequency. No swelling of the joints. Remainder of the review of systems is negative. PHYSICAL EXAMINATION: Reveals an afebrile woman. She had a temperature of 38.3 on the 29th. Over the course of the past 24 hours, she has been afebrile, currently 37.2. Pulse 87, respiratory rate 16, blood pressure 119/58. She is saturating well on room air. Examination of the mental status reveals it to be completely clear. The patient's eyes without conjunctivitis. She does have some conjunctival pallor despite her two units of blood over the past day or so. Nose normal. Oral cavity without evidence of pharyngitis or exudates. Teeth in reasonable repair. Neck is very thin and without palpable masses or abnormalities. No JVD is noted. The lungs are reasonably clear bilaterally. Cardiac tones: Regular rate and rhythm without any murmur. The abdomen is soft and nontender. A drain is present in the right upper quadrant. There is no suprapubic fullness. There is no Arellano catheter. The patient does not have any swelling of any joints. There is no peripheral edema whatsoever. No skin rashes noted. Neurologically, the patient is intact though weak throughout with about 4+ strength everywhere. Note that overall the patient is remarkably wasted weighing only 40 kg but this is unchanged from prior. Overall I would say also that the patient is in absolutely no acute distress. Her left upper extremity which had a DVT, has now returned to its normal size and appears the same as the right. LABORATORIES: Include a white count that was about 4000 when she left the hospital. When she was readmitted yesterday, her white count jumped to 13,000 and it is now back to 6000. There is a basically normal differential white count associated with that. Creatinine is less than 0.3, which is her baseline. Electrolytes are normal. Alk phos 329 which continues more or less of a downward trend having but been much higher when the liver abscess situation started. AST and ALT are normal. Albumin 2.2. Procalcitonin 1.27 and that is much higher than when she left the hospital when it was around 0. TSH 8. Urinalysis on readmission, no white cells. Micro studies include a remarkable 4/4 blood cultures which came up very rapidly and are growing strep. I have spoken to the lab and as of yet we have nothing beyond the fact that these are gram-positive cocci in chains but we expect identification tomorrow. They do not look pneumococcal, however. Reviewing her past micro she had E. coli and Klebsiella in both blood and the abscess. These are both reasonably sensitive organisms with only the Klebsiella being resistant to ampicillin and otherwise there were totally susceptible. IMAGING: Includes the abdominal CT done yesterday. This shows pigtail drains still within the abscess. The abscess remains multilocular with gas but has decreased slightly as compared to the last imaging about 10 days before. There is no other significant abnormality, and in fact, the pleural effusions that had been noted on numerous prior scans are gone. Note that I have personally reviewed this CT scan. A chest x-ray was not done as part of the admission process. IMPRESSION: This is quite an odd series of events. The patient had six weeks of intensive intravenous therapy, mainly with ertapenem, prior to her transfer to the half-way facility on oral Cefdinir, which Dr. Centeno and I chose because of its low toxicity and reasonably good serum levels against both the E. coli and Klebsiella. The patient did extremely well for about five days. Then developed some unusual fatigue on the day of February 02. Later that night it was noted that her abscess drain may have been dislodged, and for that reason, she was sent here, not because of any concern about an infection. When she got here, she was noted to have a low-grade fever to 38.2, which prompted blood cultures and she was eventually kept, not because of any particular problem with her liver abscess, but because she needed some blood transfusions because of her chronic bleeding. The blood cultures remarkably all grew very rapidly a streptococcal organism. This raises the immediate question of where the site of origin of this high-grade Strep bacteremia is located. The abdomen seems unchanged and her liver abscess if anything is a bit better by CT. Obviously this could be a strep which was not adequately covered by the oral Cefdinir and was present in the liver abscess. Another more ominous and less likely possibility would be that she has endocarditis as she has had many lines over the last six weeks including a failed PICC line on the left which eventually resulted in a DVT. RECOMMENDATIONS: 1. In keeping with our antibiotic recommendations during the last admission, I would continue with ertapenem as it likely has the optimal coverage for such a process and avoids the toxicity of Flagyl and a ceftriaxone/Flagyl combination regimen. 2. Vanco can be continued though we do not intend to use this long-term in this very fragile woman but until we know the identity of the streptococcal organism. 3. If the strep which is isolated is a species associated with endocarditis, I think it is reasonable to get an echo tomorrow, but at this point, it is probably unnecessary as the patient has no murmur and no stigmata of endocarditis. 4. Depending on what the streptococcal organism is, we may need serial blood cultures but these need not be performed at least until we have a little more information.
[2017-02-04] MEDS: Pantoprazole 20 mg ER24 Tablet PO SCH ×2 (09:21→20:57)
[2017-02-04 09:24] VITALS: BP 125/50; PULSE 85; PULSE 91; RESP 18; O2SAT 98
[2017-02-04] MEDS: Ertapenem Inj 1,000 MG in 0.9% Sodium Chloride 50 ML IV SCH (09:59)
[2017-02-04 12:30] VITALS: BP 121/59; PULSE 83; RESP 16; O2SAT 96
--- NOTE | 2017-02-04 13:54 | PCM.PNMED ---
Subjective Date of Service February 04, 2017 Subjective Patient feels slightly improved following her transfusion yesterday, it is unclear to what degree she understands the progressive nature of her multiple co -morbid conditions and their implications in returning to an independent lifestyle. Palliative care will be consulted to clarify goals of care and code status in this cachectic and chronically ill patient. The patient denies chest pain, SOB, dysuria, diarrhea, nausea or vomiting. She endorses an occasionally substantial dull aching pain at the site of her drain insertion. Comprehensive ROS negative except as listed above. Exam Vital Signs Vital Sign - Last Date Time Temp Pulse Resp B/P Pulse Ox O2 Delivery O2 Flow Rate FiO2 02/04/17 12:30 37.2 83 16 121/59 96 Room Air Intake and Output 02/03/17 02/03/17 02/04/17 Cumulative From/Thru 15:00 23:00 07:00 02/03/17 00:03 - 02/04/17 05:59 Intake Total 375 ml 745 ml 758 ml 1878 ml Output Total 700 ml 1130 ml 2130 ml Balance 375 ml 45 ml -372 ml -252 ml Intake Oral 460 ml 300 ml 760 ml IV Total 50 ml 285 ml 458 ml 793 ml Packed Cells 325 ml 325 ml Output Urine Total 700 ml 1100 ml 2100 ml Drainage Total 30 ml 30 ml # Voids 5 6 # Bowel Movements 0 1 1 Exam Gen: A/O x3 pleasant cooperative elderly cachectic woman in NAD Neck: Supple, non tender, no JVD, Full ROM HEENT: PERRL, EOMI, no scleral icterus, no conjunctival pallor, significant temporal wasting CV: RRR no murmurs rubs or gallops Resp: Lungs CTA BL, no wheezing rales or rhonchi Abd: Soft, mildly tender around insertion site of drain which is draining brown brackish fluid, no organomegaly, no rebound or guarding Extr: No clubbing cyanosis or edema Neuro: CN 2-12 grossly intact, no focal neurologic deficit Psych: Pleasant and appropriate mood and affect. IVs and Medications IV Fluids NS @ 10 ml/hr TKO 150 mls delivered with IV meds Medications Reviewed: Medications were reviewed in detail Lab and Diagnostics Item Value Date Time Red Blood Count 2.50 mil/mm3 L 02/04/17 0235 Mean Corpuscular Volume 92.8 fL 02/04/17 0235 Mean Corpuscular Hemoglobin 30.0 pg 02/04/17 0235 Mean Corpuscular Hemoglobin Concent 32.3 % 02/04/17 023 Red Cell Distribution Width 16.6 % H 02/04/17 0235 Lymphocytes (%) (Auto) 12.2 % L 02/04/17 0235 Neutrophils (%) (Auto) 73.6 % 02/04/17 0235 Monocytes (%) (Auto) 11.9 % 02/04/17 023 Eosinophils (%) (Auto) 1.5 % 02/04/17 0235 Basophils (%) (Auto) 0.6 % 02/04/17 0235 Estimat Glomerular Filtration Rate 304 mL/min 02/04/17 0235 Calcium Level 8.5 mg/dL 02/04/17 0235 Phosphorus Level 3.2 mg/dL 02/04/17 0235 Magnesium Level 1.7 mg/dL 02/04/17 0235 Total Bilirubin 0.7 mg/dL 02/04/17 0235 Aspartate Amino Transf (AST/SGOT) 26 U/L 02/04/17 0235 Alanine Aminotransferase (ALT/SGPT) 12 U/L 02/04/17 0235 Alkaline Phosphatase 329 U/L H 02/04/17 0235 Total Protein 4.8 g/dL L 02/04/17 0235 Albumin 2.2 g/dL L 02/04/17 0235 Procalcitonin 1.27 ng/mL H 02/04/17 0235 Thyroid Stimulating Hormone (TSH) 8.030 uIU/mL H 02/03/17 0800 Free Thyroxine 0.47 ng/dL L 02/03/17 0800 Prothrombin Time 11.2 sec 02/04/17 0235 Prothromb Time International Ratio 1.05 ratio 02/04/17 0235 Result Diagram: 02/04/17 0235 02/04/17 0235 Microbiology 4/4 bottles growing Gram Positive Cocci, presumptive enterococcus species X-Rays, CTs and MRIs CT ABDOMEN WITH CONTRAST IMPRESSION: 1. Pigtail drainage catheter remains within the right hepatic lobe abscess. 2. 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 3. Resolution of previously seen pleural effusions. 4. Concordant with preliminary interpretation. Dictated by: Junito Cardozo M.D. on 02/03/2017 at 8:08 Approved by: Junito Cardozo M.D. on 02/03/2017 at 8:10 . Assessment & Plan This is a 81-year-old female who presented after noticing that the drainage tube placed due to liver abscess had been "pulled out about [address] of the abdomen with contrast showed that tube was in place. On arrival to the emergency department she had a temperature of 38.2 Celsius. She has a history of liver abscess with bacteremia during last hospital stay and discharged on cefdinir which she continued to the date of admission. On initial emergency department lab work she had a hemoglobin of 5.2. She admits to black stools which occur chronically. 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 1. Sepsis, present on admission, resolved -Temp 38.2c, Heart rate >90 with source of liver abscess. -IV antibiotics ceftriaxone and flagyl transitioned to Ertapenem -Vanco used for the time being until blood culture sensitivity returns -ID on board and we appreciated their recommendations -IVF administered upon admission, now discontinued 2. Chronic liver abscess, present on admission, ongoing: -Temperature of 38.2 Celsius on arrival. -Liver abscess drain in place however recently displaced. Liver abscess culture previously grew Escherichia coli and Klebsiella. -Patient previously followed by Dr. Webber of infectious disease. Patient has persistent fever on cefdinir. -Consulted Dr. Webber of infectious disease -Blood cultures growing 4/4 gram positive Cocci,presumptive enterococcus, sensitivities pending -Will start Vancomycin with low threshold to discontinue with sensitivities pending -Urinalysis unremarkable 3. acute blood loss anemia, present on admission, ongoing: -Likely secondary to Hereditary hemorrhagic telangiectasia -hgb 5.3 on admission -2 units of PRBCs ordered. Repeated CBC after. -Continuing to trend H/H in this chronically anemic patient 4. Hereditary hemorrhagic telangiectasia, present on admission, ongoing: -Followed by Dr. Bynum as an outpatient. -Transfuse as above. 5. History of acute left upper extremity DVT at site of PICC line: -PICC line was removed on December 20. -Patient is not on anticoagulation currently. 6. Severe protein calorie malnutrition, present on admission, active: -Continue to encourage oral intake. -Nutritional consult placed -Marinol added to encourage PO intake -BMI < 16 -Palliative care consulted given severe co-morbid conditions. 7. Chronic constipation, present admission, ongoing: -Patient states that her stools are now soft. 8. Hypothyroidism, present on admission, chronic: -Patient status post partial thyroidectomy. -Last TSH on 01/20/2017 was 32.590. Last free T4 was 0.38. Will repeat. -TSH remains elevated with low T4, advised the patient that [place] thyroid may not be the ideal option for her and she may need to transition to Levothyroxine DVT prophylaxis with SCDs due to patient's low hemoglobin. Disposition: Patient will likely be able to DC back to previous living situation tomorrow after consultation with Dr. Webber and demonstration of an acceptable antibiotic regimen. Pain Evaluation: Adequate Pain Control GI Prophylaxis: H2 trisha VTE Prophylaxis: Other (Patient with chronic bleeding issue so anti- coagulation is withheld ) VTE Mechanical Devices: Intermittant Pneumatic CD Resuscitation Status: CPR: Attempt Resuscitation Attending Statement The patient was seen and examined together with Dr. Limon on 02/04/2017 and I agree with the history, exam and plan as outlined in the note above. . Bj Limon DO February 04, 2017 13:54 Alhaji To MD Feb 06, 2017 20:24
--- NOTE | 2017-02-04 14:25 | NUR ---
NUTRITION ASSESSMENT: Assess: Pt is an 81yo F admitted for severe anemia. Pt recently had liver drain placed for liver abscess. She is on a General diet with good PO so far of 75-100% x2 meals. Per chart review pt's wt has been stable since discharge 1 week ago. Pt reported that her appetite is good right now. She likes to drink Ensure when it is mixed with coffee and ice cream or with frozen strawberries but she doesnt like to drink it plain. She enjoys eggs and cottage cheese. Pt reported that while she was at [facility] she liked Boost Breeze. PMHx: Ulcerated gastroesophageal junction, Irregular gastroesophageal junction, Gastric and duodenal hereditary hemorrhagic telangiectasia, Hypothyroid, malnutrition, uterine fibroid. LABS: Reviewed. Electroneurodiagnostic Technician <.3, Glu 106, Alk phos 329, Alb 2.2 MEDICATIONS: Reviewed. Marinol DIET: General, PO -75-100% GI: BM x 1 (02/04). SKIN: Cosmo 17, pale, frail woman lying in bed. Visible muscle/fat loss in face and arms. ANTHROPOMETRICS: Current wt: 40.8kg, BMI 15.9kg/m2, Previous Admit Wt: (12/17) 41.5 kg (standing scale) Past Admit Wt: 38.5 kg (Bed scale) IBW: 52.3 kg. UBW (November): 54 kg. ESTIMATED NEEDS: Malnutrition Calories: 4721-5614 (30-35 kcal/kg BW) Protein: 65-80 g/day (1.2-1.5 g/kg IBW) NUTRITION DIAGNOSIS: 1) Severe pro/kcal malnutrition related to chronic illness as evidenced by variable wt, visible loss of LBM/ fat, BMI of 15.9kg/m2 INTERVENTION: 1) Encourage pt to continue choosing high kcal/pro foods. Will send Ensure CL (similar to Boost Breeze) on B tray and Magic Cup [place] Sherbet flavor on L tray per pt preference. MONITOR/EVALUATE: PO intake, supps ok?, labs, weight, , nutrition status. Follow per moderate nutrition risk guidelines.
--- NOTE | 2017-02-04 15:11 | NUR ---
General Pt A&O X3. Answers questions appropriately. MARY. Able to make needs known. Pt has been getting out of bed for meals and has agreed to ambulate later in the shift. Transfers have been tolerated fairly well. Still some weakness noted. Pt has been SR in the 80s all day now is no longer on tele, per MD order. Tolerating general diet well. Pt had 3 BMs today so far. One was quite soft and 2 were loose. Dark in color. Hepatic drain produced around 5cc fluid so far today. New IV placed on L forearm, working well. Son visiting at the bedside.
[2017-02-04] MEDS ORDERED: Vancomycin Inj 500 MG in 0.9% Sodium Chloride 100 ML IV SCH ×2 (16:00→22:30)
--- NOTE | 2017-02-04 16:41 | NUR ---
Transfer [facility] from [facility] A&O pt, arrived from 2001 at 1640. Pt denies pain. IV in LFA appears infiltrated, IV therapy called. 2 upper rails raised, call light in reach. and son at bedside. Pt denies having questions.
[2017-02-04 16:48] VITALS: BP 137/67; PULSE 91; RESP 16; O2SAT 97
--- NOTE | 2017-02-04 19:50 | NUR ---
Order for doppler&drain Call made to AM physician by primary RN asking for doppler of L arm d/t current infiltration and recent hx of blood clot & flush orders for drain in R abd. No orders in place yet. Passed over in report to ask for such in the AM. Drain flushed with one 10mL syringe of NS today, needs to be done very SLOWLY as pt c/o severe pain, requiring PO pain meds after the last flush. Pt states the sensitivity is new, onset several days ago.
[2017-02-04 21:46] VITALS: BP 146/72; PULSE 105; RESP 16; O2SAT 94
[2017-02-05 00:28] VITALS: BP 139/66; PULSE 105; RESP 16; O2SAT 95
[2017-02-05] MEDS: Ondansetron 2 mg/mL 2 mL Inj IVPUSH PRN (02:53)
[2017-02-05] MEDS ORDERED: Vancomycin Serum Trough XX ONE ×2 (03:30→22:00)
--- NOTE | 2017-02-05 04:44 | NUR ---
Febrile/Pain/nausea: Pt febrile during the night, cool wash clothes used; effective; MD aware. Pt c/o L sided abdominal pain and mild nausea, medication administered; effective. Pt is now able to ambulate self to BSC with minimal assist this shift. Nursing staff encouraging pt to turn and assisting when pt allows due to blanchable redness on buttock; pt is in a P 500 bed. Slept off/on throughout the night, pleasant and cooperative with care. Dayshift RN passed in report that an IV had been started on pt's L arm and became "puffy". Pt found to have a DVT in L arm on recent hospital admission. MD alerted [facility] up with an ultrasound of arm. IV was removed, signs posted in pt's room "no BP's or needlesticks in L arm". Pt not c/o pain in arm.
[2017-02-05 05:33] VITALS: BP 110/54; PULSE 93; RESP 16; O2SAT 95
[2017-02-05 06:19] LABS: BASOPHILS % (AUTO) 0.2 % (0-3); EOSINOPHILS % (AUTO) 0.4 % (0-5); MONOCYTES % (AUTO) 8.7 % (4-12); Mean Corpuscular Hemoglobin 29.9 pg (27.0-35.0); Mean Corpuscular Volume 93.3 fL (81-100); NEUTROPHILS % (AUTO) 77.9 % (40-74); Platelet Count 285 bil/L (150-400)
[2017-02-05 06:42] LABS: INR 1.05 ratio
[2017-02-05 06:51] LABS: Magnesium 1.7 mg/dL (1.6-2.6)
[2017-02-05] MEDS: Polyethylene Glycol (PEG) 17 Gm Powder PO SCH (08:01)
[2017-02-05] MEDS: Pantoprazole 20 mg ER24 Tablet PO SCH ×2 (08:06→20:16)
[2017-02-05] MEDS: Ertapenem Inj 1,000 MG in 0.9% Sodium Chloride 50 ML IV SCH (09:14)
--- NOTE | 2017-02-05 09:47 | PROG NOTE ---
[address] [address] PROGRESS NOTE PATIENT: STEWART UREÑA : 1935 MR#: [id number] ADMIT: 02/03/2017 JOB ID: [id number] DATE: 02/05/2017 INFECTIOUS DISEASE FOLLOW UP NOTE: REASON FOR FOLLOWUP: Liver abscess now complicated by VRE bacteremia. DATE: INTERVAL HISTORY: Recall that this is the elderly woman who has been treated for almost two months for a liver abscess. She was readmitted after possible dislodging of a drain but a CT showed that the drain was still in the abscess. She did have a low-grade fever, however, and blood cultures were drawn which have now yielded VRE. Today, the patient tells me she has no fevers, chills or sweats. She has no significant right upper quadrant pain and no problems with the drain. No cough or shortness of breath. No chest pain. PHYSICAL EXAMINATION: Reveals an afebrile woman but during the night she had temperatures to 39.5, temp 36.9 now, pulse 93, respiratory rate 16, blood pressure 110/54. She has been saturating well on room air. She looks comfortable. Eyes with conjunctival pallor. Lungs relatively clear. Cardiac tones with a 1/6 systolic murmur heard best at the lower left sternal border. Abdomen without tenderness to the right upper quadrant. Drain is in place. There is no new skin rash. LABORATORIES: Include white count 8300, hematocrit 24, platelets 285. Creatinine less than 0.3. Alk phos has jumped to 501 after dropping to 329. Procalcitonin is down to 0.92. Blood cultures are yielding VRE in multiple bottles, 4 of 4 bottles, and I have asked for the patient to be placed in isolation. This VRE is penicillin and vanc resistant. It is linezolid susceptible and I have asked for dapto sensitivity. IMPRESSION: This is another setback in this woman with a profoundly recalcitrant and large right liver abscess. Previously we had Klebsiella and E. coli both from the abscess and from blood. Now we have VRE which I presume is related to the abscess though the possibility of VRE endocarditis cannot be excluded. RECOMMENDATIONS: 1. We will add linezolid 600 p.o. b.i.d. to her current antibiotic which is ertapenem. 2. Serial blood cultures will be needed but there is no point to start today. Rather we will start the serial blood cultures on or Friday. 3. Transthoracic echo will be done to evaluate the possibility of endocarditis. 4. The patient will need probably a month or more of either linezolid or daptomycin. Linezolid is obviously easier to use as we can give it orally and there no obvious drug contraindications.
[2017-02-05 09:56] VITALS: BP 113/62; PULSE 86; RESP 16; O2SAT 98
[2017-02-05 13:32] VITALS: BP 131/68; PULSE 92; RESP 16; O2SAT 100
--- NOTE | 2017-02-05 15:25 | NUR ---
mobility/drain/isolation pt SBA to BSC and chair for meals hepatic drain, right abd putting out small amount of green fluid, flushed at 1100 easily. Isolated VRE, placed in isolation at 0900.
--- NOTE | 2017-02-05 16:05 | NUR ---
Social Work-readiness for discharge: data:EMR reviewed. Pt is on day 2 of hospitalization for severe anemia per H&P. Pt is not medically stable anticipate 1-2 more days. Pt came from [facility] and will return there at discharge. ID involved and working on abx, anticipate likely oral abx at discharge. Pt continues with drain in place. Insurance authorization will be needed prior to return to SNF. Paperwork in the chart. SW will continue to follow. Assessment:Pt to benefit from SNF. Plan:Pt to discharge back to [facility] with Dr. Bautista to follow. Insurance authorization will be needed prior to return to SNF. Paperwork in the chart. SW will continue to follow. SOHAN Gayle
--- NOTE | 2017-02-05 16:34 | PCM.PNMED ---
Subjective Date of Service February 05, 2017 Subjective says overall feels better than yesterday. Denies any new issues/complaints Exam Vital Signs Vital Sign - Last Date Time Temp Pulse Resp B/P Pulse Ox O2 Delivery O2 Flow Rate FiO2 02/05/17 13:32 37.1 92 16 131/68 100 Room Air Intake and Output 02/04/17 02/04/17 02/05/17 Cumulative From/Thru 15:00 23:00 07:00 02/03/17 00:03 - 02/05/17 06:56 Intake Total 480 ml 100 ml 3458 ml Output Total 920 ml 505 ml 3555 ml Balance -440 ml -405 ml -97 ml Intake Oral 480 ml 100 ml 1340 ml IV Total 1793 ml Packed Cells 325 ml Output Urine Total 920 ml 500 ml 3520 ml Drainage Total 5 ml 35 ml # Voids 6 # Bowel Movements 1 2 Exam Gen: A/O x3 pleasant cooperative Neck: Supple, non tender HEENT: no scleral icterus, CV: RRR Resp: Lungs CTA BL Abd: Soft, mildly tender around insertion site of drain which is draining brown brackish fluid, no organomegaly, no rebound or guarding Extr: No clubbing cyanosis or edema Neuro: CN 2-12 grossly intact, no focal neurologic deficit Psych: Pleasant and appropriate mood and affect. IVs and Medications Medications Reviewed: Medications were reviewed in detail Lab and Diagnostics Result Diagram: 02/05/17 0550 02/05/17 0550 Microbiology 4/4 bottles growing Gram Positive Cocci, presumptive enterococcus species X-Rays, CTs and MRIs CT ABDOMEN WITH CONTRAST IMPRESSION: 1. Pigtail drainage catheter remains within the right hepatic lobe abscess. 2. 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 3. Resolution of previously seen pleural effusions. 4. Concordant with preliminary interpretation. Dictated by: Junito Cardozo M.D. on 02/03/2017 at 8:08 Approved by: Junito Cardozo M.D. on 02/03/2017 at 8:10 . Assessment & Plan 81-year-old female who presented after noticing that the drainage tube placed due to liver abscess had been "pulled out about [address] of the abdomen with contrast showed that tube was in place. On arrival to the emergency department she had a temperature of 38.2 Celsius. She has a history of liver abscess with bacteremia during last hospital stay and discharged on cefdinir which she continued to the date of admission. On initial emergency department lab work she had a hemoglobin of 5.2. She has a history of hereditary hemorrhagic telangiectasia. requiring transfusions biweekly # Acute sepsis, present on admission, resolved -Temp 38.2c, Heart rate >90 with source of liver abscess and acute bacteremia -Continue with Abx treatment noted below -Continue with supportive care # Acute VRE bacteremia. Present on admission -Appreciate ID consult. Will f/u w/ recs -Check Echo -Follow serial blood cultures till negative -Linezolid 600 p.o. b.i.d. added to her current antibiotic of Ertapenem. # Chronic liver abscess, present on admission, ongoing -Liver abscess drain in place -Liver abscess culture previously grew Escherichia coli and Klebsiella. -ID Consult and Abx as noted above # Acute blood loss anemia, present on admission, ongoing -Likely secondary to Hereditary hemorrhagic telangiectasia -Post 2 units of PRBCs transfusion during this hospital so far -Continuing to trend H/H # Hereditary hemorrhagic telangiectasia, present on admission, ongoing -Followed by Dr. Bynum as an outpatient. -Transfuse as above. # History of acute left upper extremity DVT at site of PICC line during last hospitalization -PICC line was removed on December 20. -Patient is not on anticoagulation currently. # Severe protein calorie malnutrition, present on admission, active -Continue to encourage oral intake. -Nutritional consult placed -Marinol added to encourage PO intake -BMI < 16 # Chronic constipation, present admission, ongoing -Patient states that her stools are now soft. # Hypothyroidism, present on admission, chronic -Patient status post partial thyroidectomy. -Last TSH on 01/20/2017 was 32.590. Last free T4 was 0.38. -TSH continues to remain elevated and T4 low -Consider changing [place] thyroid to Levothyroxine Dispo: 3-4 days pending above workup GI Prophylaxis: H2 trisha VTE Prophylaxis: Other (Patient with chronic bleeding issue so anti- coagulation is withheld ) VTE Mechanical Devices: Venous Foot Pump Resuscitation Status: CPR: Attempt Resuscitation Nick Fragoso February 05, 2017 16:34 Nick Fragoso February 05, 2017 16:34
[2017-02-05] MEDS: 0.9% Sodium Chloride 250 ML IV SCH (16:41)
--- NOTE | 2017-02-05 16:53 | NUR ---
oxycodone after dose of oxycodone pt reports feeling dizzy and floaty. Always calls for assist to get OOB
--- NOTE | 2017-02-05 17:18 | DRSVH ---
[facility] [address] [place] [address] Echocardiogram Report Name: STEWART UREÑA Graeme e: 02/05/2017 Height: 63 in Hospital Exam Location: [facility] Weight: 90 lb Gender: Female BSA: 1.4 m2 : 1935 Age: 81 yrs BP: 110/54 mmHg Reason For Study: Bacteremia Performed By: Corrie Jeffrey Referring Physician: ADALBERTO KELLEY Interpretation Summary The left ventricle is normal in size. Left ventricular systolic function is normal without focal wall motion abnormalities. The ejection fraction is estimated to be 60-65%. Assessment of diastolic parameters indicates normal left ventricular diastolic function and normal filling pressures. The right ventricle is normal in size and function. The right ventricular systolic pressure is estimated at 34 mmHg assuming a right atrial pressure of 3 mm Hg. The left atrium is mildly dilated. Right atrial size is normal. The aortic valve is trileaflet. The aortic valve opens well. There is no aortic regurgitation. There is very small filamentous strand at the tips of aortic leaflets. This is best seen on parasternal long axis views with inncreased magnification. Differential should include endocarditis or Lambl's excrescence. Given positive blood cultures, OLU is recommended. Other valves do not have any obvious evidence for endocarditis. The aortic root is mildly dilated. The ascending aorta is mildly enlarged. Moderate atherosclerotic plaque(s) in the aortic arch. Procedure: A two-dimensional transthoracic echocardiogram with color flow and Doppler was performed. The study quality was technically good. There is no prior echocardiogram noted for this patient. The patient was in sinus rhythm with a heart rate varying from 95-100 bpm. Left Ventricle: The left ventricle is normal in size. Left ventricular wall thickness is mildly increased. Left ventricular systolic function is normal without focal wall motion abnormalities. The ejection fraction is estimated to be 60-65%. Assessment of diastolic parameters indicates normal left ventricular diastolic function and normal filling pressures. Right Ventricle: The right ventricle is normal in size and function. Atria: The left atrium is mildly dilated. Right atrial size is normal. The interatrial septum is intact with no evidence for an atrial septal defect. Mitral Valve: The mitral valve leaflets appear moderately thickened, but open well. There is mild mitral annular calcification. There is trace mitral regurgitation. Aortic Valve: The aortic valve is trileaflet. The aortic valve opens well. There is no aortic regurgitation. Tricuspid Valve: The tricuspid valve is normal in structure and function. There is mild tricuspid regurgitation. The right ventricular systolic pressure is estimated at 34 mmHg assuming a right atrial pressure of 3 mm Hg. Pulmonic Valve: The pulmonic valve is normal in structure and function. There is trace pulmonic regurgitation. Great Vessels: The aortic root is mildly dilated. The ascending aorta is mildly enlarged. Moderate atherosclerotic plaque(s) in the aortic arch. The IVC is of normal diameter and collapses greater than 50% with a sniff. This suggests a low right atrial pressure of 3 mm Hg. Pericardium/ Pleura There is no pericardial effusion. There is no pleural effusion. MMode/2D Measurements & Calculations LVIDd: 4.6 cm RA long axis LVOT diam LVIDs: 3.1 cm LA A2 area: 16.8 cm FS: 32.4 % LA A4 area: 16.6 cm RA area Ao root diam IVSd: 1.1 cm LA length (vol): 4.5 cm LVPWd: 1.00 cm LA vol: 52.3 ml : 14.5 cm asc Aorta LA vol index RA vol: 34.1 mlDiam: 3.6 cm RA : 38.0 ml/m2 : 24.8 mm2 LV ferguson. diameter/BSA LV sys. diameter/BSA TAPSE: 2.3 cm (cm/m^2): 3.4 (cm/m^2): 2.3 Doppler Measurements & Calculations Ao V2 max MV E max musa MV E/A: 0.94 TR max musa : 160.7 cm/sec : 88.2 cm/sec Med Peak E' Musa : 277.7 cm/sec Ao max PG MV A max musa TR max P.1 mmHg : 10.3 mmHg : 93.8 cm/sec E/E' med: 9.9 PA V2 max: 93.8 cm/sec Ao mean PG Lat Peak E' Musa PA mean P.0 mmHg LVOT Max Musa E/E' lat: 6.9 : 138.7 cm/sec E/e' average: 8.4 VALE(I,D): 2.8 cm sev ratio Ao V2 mean LV V1 max PG PA V2 mean VALE indexed to BSA : 103.3 cm/sec : 67.4 cm/sec (cm^2/m^2): 2.0 Ao V2 VTI: 26.3 cmLV V1 VTI PA pr(Accel) : 22.3 cm : 16.1 mmHg VALE(V,D): 2.8 cm2 Reading Physician:MARGARITA
[2017-02-05 17:33] VITALS: BP 142/63; PULSE 102; RESP 16; O2SAT 98
[2017-02-05 21:19] VITALS: BP 92/54; PULSE 106; RESP 16; O2SAT 97
[2017-02-06] VITALS (7 sets, daily range): BP systolic 95–125; BP diastolic 51–73; PULSE 82–102; RESP 14–18; O2SAT 95–98
[2017-02-06 06:40] LABS: Mean Corpuscular Volume 94.2 fL (81-100)
[2017-02-06] MEDS: Polyethylene Glycol (PEG) 17 Gm Powder PO SCH (08:30)
[2017-02-06] MEDS: Ertapenem Inj 1,000 MG in 0.9% Sodium Chloride 50 ML IV SCH (08:41)
[2017-02-06] MEDS: Pantoprazole 20 mg ER24 Tablet PO SCH ×2 (08:48→19:58)
[2017-02-06] MEDS: 0.9% Sodium Chloride 250 ML IV SCH (08:49)
--- NOTE | 2017-02-06 16:15 | PCM.PNMED ---
Subjective Date of Service Feb 06, 2017 Subjective Patient just wants to be home. She is apparently having fairly significant pain when drain is being flushed. She denies chest pain, dyspnea, nausea or vomiting Exam Vital Signs Vital Sign - Last Date Time Temp Pulse Resp B/P Pulse Ox O2 Delivery O2 Flow Rate FiO2 02/06/17 13:42 36.7 94 16 95/51 96 Room Air Intake and Output 02/05/17 02/05/17 02/06/17 Cumulative From/Thru 15:00 23:00 07:00 02/03/17 00:03 - 02/06/17 05:26 Intake Total 1073 ml 400 ml 4931 ml Output Total 935 ml 1230 ml 5720 ml Balance 138 ml -830 ml -789 ml Intake Oral 640 ml 400 ml 2380 ml IV Total 433 ml 2226 ml Packed Cells 325 ml Output Urine Total 925 ml 1200 ml 5645 ml Drainage Total 10 ml 30 ml 75 ml # Voids 6 # Bowel Movements 0 2 Exam Gen.- A+ O 3 no apparent distress. Frail/cachectic appearing female lying in bed Eyes- open conjunctiva clear, pupils equal nonicteric ENT- ears normal, nose normal, hearing intact Neck- supple/trach midline CVS- RRR no murmur or gallop Lungs CTA, no wheezes or rhonchi or sensory muscle usage GI- NABS/NT soft, drain in place with purulent bilious drainage Musc- moving 4 no obvious deformity Neuro- cranial nerves II through XII intact to gross examination, nonfocal Skin- warm and dry, no rashes/lesions/wounds noted Psych- pleasant and appropriate, Lab and Diagnostics Result Diagram: 02/06/17 0730 02/06/17 0609 Microbiology 12/10 bottles growing Gram Positive Cocci, presumptive enterococcus species X-Rays, CTs and MRIs CT ABDOMEN WITH CONTRAST IMPRESSION: 1. Pigtail drainage catheter remains within the right hepatic lobe abscess. 2. 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 3. Resolution of previously seen pleural effusions. 4. Concordant with preliminary interpretation. Dictated by: Junito Cardozo M.D. on 02/03/2017 at 8:08 Approved by: Junito Cardozo M.D. on 02/03/2017 at 8:10 . Cardiac Echo Impressions Echocardiogram Report The left ventricle is normal in size. Left ventricular systolic function is normal without focal wall motion abnormalities. The ejection fraction is estimated to be 60-65%. Assessment of diastolic parameters indicates normal left ventricular diastolic function and normal filling pressures. The right ventricle is normal in size and function. The right ventricular systolic pressure is estimated at 34 mmHg assuming a right atrial pressure of 3 mm Hg. The left atrium is mildly dilated. Right atrial size is normal. The aortic valve is trileaflet. The aortic valve opens well. There is no aortic regurgitation. There is very small filamentous strand at the tips of aortic leaflets. This is best seen on parasternal long axis views with inncreased magnification. Differential should include endocarditis or Lambl's excrescence. Given positive blood cultures, OLU is recommended. Other valves do not have any obvious evidence for endocarditis. The aortic root is mildly dilated. The ascending aorta is mildly enlarged. Moderate atherosclerotic plaque(s) in the aortic arch. Reading Physician:MARGARITA Assessment & Plan 81-year-old female admitted 02/03 to concerns of drain being out, drain placement was controlled firm and she was noted to have a fever and blood cultures grew VRE. 02/06 first time meeting medically complex patient who is medically stable. Echo completed showing aortic valve concerning for regurgitation OLU recommended. 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 Further discussion as to what the plan will be prior to doing OLU indicated. We will continue monitoring hemoglobin as far as transfusions. Global plan is still unclear, as his duration of confinement. # Acute VRE bacteremia. Present on admission -Appreciate ID consult. Will f/u w/ recs - Echo concerning for endocarditis 02/05 - serial blood cultures till negative starting 02/07 -Linezolid 600 p.o. b.i.d. added to her current antibiotic of Ertapenem. 02/04 # Chronic liver abscess, present on admission, ongoing -Liver abscess drain in place -Liver abscess culture previously grew Escherichia coli and Klebsiella. -ID Consult and Abx as noted above # Acute blood loss anemia, present on admission, ongoing, continuing to monitor H&H. Patient states she is not symptomatic -2' Hereditary hemorrhagic telangiectasia -Post 2 units of PRBCs transfusion during this hospital so far -Continuing to trend H/H # Hereditary hemorrhagic telangiectasia, present on admission, ongoing -Followed by Dr. Bynum as an outpatient. -Transfuse as above. # History of acute left upper extremity DVT at site of PICC line during last hospitalization -PICC line was removed on December 20. -Patient is not on anticoagulation currently due to ongoing bleeding risk risk- benefit ratio is against anticoagulation. # Severe protein calorie malnutrition, present on admission, active -Continue to encourage oral intake. -Nutritional consult placed -Marinol added to encourage PO intake -BMI < 16 # Chronic constipation, present admission, ongoing -Patient states that her stools are now soft. # Hypothyroidism, present on admission, chronic -Patient status post partial thyroidectomy. -Last TSH on 01/20/2017 was 32.590. Last free T4 was 0.38. -TSH continues to remain elevated and T4 low -Consider changing [place] thyroid to Levothyroxine Dispo: 3-4 days pending above workup GI Prophylaxis: H2 trisha VTE Prophylaxis: Other (Patient with chronic bleeding issue so anti- coagulation is withheld ) VTE Mechanical Devices: Venous Foot Pump Resuscitation Status: CPR: Attempt Resuscitation Riley Gibbs MD Feb 06, 2017 16:14
--- NOTE | 2017-02-06 16:35 | PROG NOTE ---
[address] [address] PROGRESS NOTE PATIENT: STEWART UREÑA : 1935 MR#: [id number] ADMIT: 02/03/2017 JOB ID: [id number] DATE: 02/06/2017 INFECTIOUS DISEASE FOLLOW UP NOTE: REASON FOR FOLLOWUP: Polymicrobial bacteremic large liver abscess, treatment now complicated by high-grade VRE bacteremia. INTERVAL HISTORY: Recall that yesterday the laboratory notified me that the blood cultures were actually growing VRE. These had been done in response to low-grade fevers during the course of her treatment for her liver abscess. The patient was started yesterday on oral linezolid therapy and an echo ordered. Today, the patient says that she is very washed out and exhausted. She has been sleeping a great deal. She has had no headache, no fevers, chills or sweats. No shortness of breath or chest pain. She has intermittent right upper quadrant pain where the drain is present. Otherwise negative. Her appetite is very poor. PHYSICAL EXAMINATION: Reveals an afebrile woman, temperature 36.7, pulse 94, respiratory rate 16, blood pressure 95/61 and she is in no acute distress though she does look very tired and a bit pale today. She is saturating well on room air. Oral cavity without change. Lungs without change. Abdomen slightly distended with no notable tenderness. There is minimal drainage in the right upper quadrant drain but it has turned green again from a prior previous brown color. No skin rash noted. LABORATORIES: Include a hematocrit 22, creatinine less than 0.3. Alk phos 501 yesterday. Blood cultures from the , 4 of 4 bottles, all grew VRE. Echocardiogram done yesterday is interesting. It showed small filamentous changes at the tips of the aortic leaflets. This was felt to be indicative of either lamov-excrescence or vegetations from endocarditis. IMPRESSION: This patient continues to be more complicated. Originally she had a very large and complex liver abscess which was due to multiple gram-negative rods which were found in blood as well as in the abscess. She has been treated aggressively now for the better part of two months with primarily intravenous agents as she failed Cipro due to nausea and vomiting and we had no other reliable or safe oral options. Recently she developed new fever spikes on the which led to new blood cultures which revealed VRE in the blood. I suspect this VRE is coming from the liver abscess rather than heart valve, but in view of the results on the transthoracic echo, it is hard to say. We could pursue a OLU to try and answer the question but this would not be without risk and I am not certain how much it would change what we are going to do. RECOMMENDATIONS: 1. Will continue with ertapenem IV with a plan to continue perhaps for some weeks if the patient tolerates it. 2. For now, we plan to use linezolid orally as our VRE treatment drug. The laboratory checked and it is also sensitive to daptomycin but the JOY is 2. We would need to give very high doses of dapto if we were to substitute that for linezolid and right now I think linezolid is a reasonable option. 3. The patient's discharge plans are to be discussed at a meeting tomorrow at 1 in the afternoon and I plan to be there. TAYLERD
--- NOTE | 2017-02-06 18:43 | NUR ---
Weakness/appetite Pt states to be weak, stayed in bed all day. Snacked a little, mostly at breakfast. A&O. Up to BSC to void. Uses call light appropriately.
[2017-02-06] MEDS: D5 0.9% NaCl + KCl 20 mEq/L 1,000 ML IV SCH (23:50)
[2017-02-07] VITALS (10 sets, daily range): BP systolic 107–135; BP diastolic 46–65; PULSE 85–109; RESP 14–20; O2SAT 98–100
[2017-02-07] MEDS: 0.9% Sodium Chloride 250 ML IV SCH (03:58)
--- NOTE | 2017-02-07 05:03 | NUR ---
Pain PT slept well all night after blood was finished, complained of RT flank pain twice, Oxy 2.5mg PO give with good effect.
[2017-02-07 07:51] LABS: BASOPHILS % (AUTO) 0.5 % (0-3); EOSINOPHILS % (AUTO) 4.2 % (0-5); Mean Corpuscular Hemoglobin 30.6 pg (27.0-35.0); Mean Corpuscular Volume 92.3 fL (81-100); NEUTROPHILS % (AUTO) 64.7 % (40-74); Platelet Count 281 bil/L (150-400)
[2017-02-07] MEDS: Pantoprazole 20 mg ER24 Tablet PO SCH (07:54)
[2017-02-07] MEDS: Ertapenem Inj 1,000 MG in 0.9% Sodium Chloride 50 ML IV SCH (07:54)
[2017-02-07] MEDS: Polyethylene Glycol (PEG) 17 Gm Powder PO SCH (07:54)
--- NOTE | 2017-02-07 10:46 | NUR ---
Social Work: Continued d/c planning Data: Pt is on day 4 of hospitalization. EMR reviewed. Pt discussed in rounds. 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 MD to discuss with pt and possibly get palliative care involved. TECHNOLOGY SALES CONSULTANT will continue to follow for possible changes in d/c planning. Assessment: Pt from SNF. Plan: Pt will possibly d/c back to [facility]. Per rounds, Palliative to meet with pt to discuss goals of care, TECHNOLOGY SALES CONSULTANT will follow up after Palliative. SOHAN Kim
--- NOTE | 2017-02-07 12:05 | NUR ---
Evaluation completed. Please go to "Notes" then click on "Assessments and Notes" (bottom left corner of screen). Then select appropriate discipline tab on top of screen.
--- NOTE | 2017-02-07 13:14 | NUR ---
NUTRITION FOLLOW UP: Assess: Pt is an 81yo F admitted for severe anemia, with liver abscess now complicated by high grade VRE bacteremia, MD notes poor prognosis with diagnosis, potential palliative care involvement noted. Poor appetite poor related to noted weakness, pt continues to receive supplements per preference, average po intake ~40% x 3 days = fair. Family/discharge conference today per MD notes. She likes to drink Ensure when it is mixed with coffee and ice cream or with frozen strawberries but she doesnt like to drink it plain. She enjoys eggs and cottage cheese. Pt reported that while she was at [facility] she liked Boost Breeze. PMHx: Ulcerated gastroesophageal junction, Irregular gastroesophageal junction, Gastric and duodenal hereditary hemorrhagic telangiectasia, Hypothyroid, malnutrition, uterine fibroid. LABS: Reviewed. Alb 2.4, Glu 103 MEDICATIONS: Reviewed. Marinol DIET: General, PO ~40% x 3 days= Fair GI: BM x 3 (02/07). SKIN: Cosmo 20; 02/04: pale, frail woman lying in bed. Visible muscle/fat loss in face and arms. ANTHROPOMETRICS: Current wt: 41.3kg, BMI 16.1kg/m2, Previous Admit Wt: (12/17) 41.5 kg (standing scale) Past Admit Wt: 38.5 kg (Bed scale) IBW: 52.3 kg. UBW (November): 54 kg. ESTIMATED NEEDS: Malnutrition Calories: [id number] (30-35 kcal/kg BW) Protein: 65-80 g/day (1.2-1.5 g/kg IBW) NUTRITION DIAGNOSIS: 1) Severe pro/kcal malnutrition related to chronic illness as evidenced by variable wt, visible loss of LBM/ fat, BMI of 16.1kg/m2---PERSISTS. INTERVENTION: 1) Continue supplements per pt preference: Ensure CL (similar to Boost Breeze) on B tray and Magic Cup [place] Sherbet flavor on L tray per pt preference. MONITOR/EVALUATE: PO intake, labs, weight, nutrition status, overall POC. Follow per moderate nutrition risk guidelines.
[2017-02-07] MEDS: D5 0.9% NaCl + KCl 20 mEq/L 1,000 ML IV SCH (14:19)
[2017-02-07] MEDS ORDERED: Propofol 10,000 mCg/mL 20 mL Inj ONE (14:47)
[2017-02-07] MEDS ORDERED: Ketamine 10 mg/mL 20 mL Inj ONE (14:47)
--- NOTE | 2017-02-07 15:58 | PCM.PNMED ---
Subjective Date of Service Feb 07, 2017 Subjective Patient has been sleeping 3 times that I came to visit not aroused. There was reportedly a care conference around 1 PM today and still waiting to hear the results I was not able to it. Exam Vital Signs Vital Sign - Last Date Time Temp Pulse Resp B/P Pulse Ox O2 Delivery O2 Flow Rate FiO2 02/07/17 12:40 36.9 90 20 112/65 100 Room Air Intake and Output 02/06/17 02/06/17 02/07/17 Cumulative From/Thru 15:00 23:00 07:00 02/03/17 00:03 - 02/07/17 06:34 Intake Total 95 ml 320 ml 1110 ml 6456 ml Output Total 150 ml 360 ml 587 ml 6817 ml Balance -55 ml -40 ml 523 ml -361 ml Intake Oral 320 ml 200 ml 2900 ml IV Total 95 ml 550 ml 2871 ml Packed Cells 360 ml 685 ml Output Urine Total 150 ml 350 ml 575 ml 6720 ml Drainage Total 10 ml 12 ml 97 ml # Voids 6 # Bowel Movements 3 5 Exam Gen.-Sleeping not aroused to gentle verbal stimuli. Frail/cachectic appearing female lying in bed Eyes-closed, no drainage ENT- ears normal, nose normal, Neck- supple/trach midline CVS-normal rate Lungs regular, nonlabored GI-flat Musc- moving 4 no obvious deformity Neuro- cranial nerves II through XII intact to gross examination, nonfocal Skin- warm and dry, no rashes/lesions/wounds noted Psych-sleeping Lab and Diagnostics Result Diagram: 02/07/17 0602/07/17 06 Microbiology 12/10 bottles growing Gram Positive Cocci, presumptive enterococcus species X-Rays, CTs and MRIs CT ABDOMEN WITH CONTRAST IMPRESSION: 1. Pigtail drainage catheter remains within the right hepatic lobe abscess. 2. 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 3. Resolution of previously seen pleural effusions. 4. Concordant with preliminary interpretation. Dictated by: Junito Cardozo M.D. on 02/03/2017 at 8:08 Approved by: Junito Cardozo M.D. on 02/03/2017 at 8:10 . Cardiac Echo Impressions Echocardiogram Report The left ventricle is normal in size. Left ventricular systolic function is normal without focal wall motion abnormalities. The ejection fraction is estimated to be 60-65%. Assessment of diastolic parameters indicates normal left ventricular diastolic function and normal filling pressures. The right ventricle is normal in size and function. The right ventricular systolic pressure is estimated at 34 mmHg assuming a right atrial pressure of 3 mm Hg. The left atrium is mildly dilated. Right atrial size is normal. The aortic valve is trileaflet. The aortic valve opens well. There is no aortic regurgitation. There is very small filamentous strand at the tips of aortic leaflets. This is best seen on parasternal long axis views with inncreased magnification. Differential should include endocarditis or Lambl's excrescence. Given positive blood cultures, OLU is recommended. Other valves do not have any obvious evidence for endocarditis. The aortic root is mildly dilated. The ascending aorta is mildly enlarged. Moderate atherosclerotic plaque(s) in the aortic arch. Reading Physician:MARGARITA Assessment & Plan 81-year-old female admitted 02/03 to concerns of drain being out, drain placement was controlled firm and she was noted to have a fever and blood cultures grew VRE. 02/06 first time meeting medically complex patient who is medically stable. Echo completed showing aortic valve concerning for regurgitation OLU recommended. 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 Further discussion as to what the plan will be prior to doing OLU indicated. We will continue monitoring hemoglobin as far as transfusions. Global plan is still unclear, as is duration of confinement. 02/07 due to patient's fatigue I elected to transfuse her. Global plan is still unclear, as is duration of confinement. Medically complex patient at very high risk for complications including .add levoxyl 50mcg QD # Acute VRE bacteremia ?endocarditis?. Present on admission -Appreciate ID consult. Will f/u w/ recs - Echo concerning for endocarditis 02/05 - serial blood cultures till negative starting 02/07 -Linezolid 600 p.o. b.i.d. 02/04- , ongoing Ertapenem 12/07(or earlier)- # Chronic liver abscess, present on admission, ongoing -Liver abscess drain in place -Liver abscess culture previously grew Escherichia coli and Klebsiella. -ID Consult and Abx as noted above # Acute blood loss anemia, present on admission, ongoing, continuing to monitor H&H. -2' Hereditary hemorrhagic telangiectasia -2U PRBCs -02/05, 1U 02/06 -Continuing to trend H/H # Hereditary hemorrhagic telangiectasia, present on admission, ongoing -Followed by Dr. Bynum as an outpatient. -Transfuse as above. # History of acute left upper extremity DVT at site of PICC line during last hospitalization -PICC line was removed on December 20. -Patient is not on anticoagulation currently due to ongoing bleeding risk risk- benefit ratio is against anticoagulation. # Severe protein calorie malnutrition, present on admission, active -Continue to encourage oral intake. -Nutritional consult placed -Marinol added to encourage PO intake -BMI < 16 # Chronic constipation, present admission, ongoing -Patient states that her stools are now soft. # Hypothyroidism, present on admission, chronic -s/p partial thyroidectomy. -TSH on 01/20/2017 32.590, 8.0 02/03. T4 0.38L 02/03. -adding lexoyl 50mcg 02/07 GI Prophylaxis: H2 trisha VTE Prophylaxis: Other (Patient with chronic bleeding issue so anti- coagulation is withheld ) VTE Mechanical Devices: Venous Foot Pump Resuscitation Status: CPR: Attempt Resuscitation Riley Gibbs MD Feb 07, 2017 15:57
--- NOTE | 2017-02-07 16:22 | PROG NOTE ---
[address] [address] PROGRESS NOTE PATIENT: STEWART UREÑA : 1935 MR#: [id number] ADMIT: 02/03/2017 JOB ID: [id number] DATE: 02/07/2017 INFECTIOUS DISEASE FOLLOW UP NOTE: REASON FOR FOLLOWUP: Polymicrobial liver abscess with increased drain output plus unexplained VRE bacteremia. INTERVAL HISTORY: The patient has had some issues over the past 24 hours. Overall she feels better and has gained a little weight. She does not have fever or chills and she has minimal abdominal pain. On the negative side, we now have new positive blood cultures for VRE. In addition, the blood drainage from the right upper quadrant has increased and it has the appearance of bile. I met with the patient and her family today. They are frustrated that she is stuck here in the hospital when she could be in a care home facility getting the IV antibiotics or perhaps at home. PHYSICAL EXAMINATION: Reveals an afebrile woman, temperature 36.9, pulse 90, respiratory rate 20, blood pressure 112/65. She is saturating 100% on room air. Oral cavity is without change. Lungs are clear. Cardiac tones without no murmur. Abdomen with right upper quadrant drain and some minimal tenderness. The drain has probably 30 or more cc of bilious type material. The abdomen is otherwise pretty negative. LABORATORIES: Include a white count of 5700. Creatinine less than 0.3. Alk phos 501. Albumin 2.4. Procalcitonin 0.92. The patient's blood cultures are growing VRE as noted. We have not yet had followup on blood cultures but I am ordering those today. No new imaging is available. I discussed this case in great detail with Dr. Sam. We are both surprised that her drain output has picked up over the past couple of days. It may be reasonable for her to be discharged to the shelter in the next couple of days if we get some negative follow up blood cultures. Dr. Sam would then see her next week in clinic and see whether the drain could be clamped or pulled. In the meantime, we would continue with IV antibiotics. RECOMMENDATIONS: 1. Repeat blood cultures x2. 2. If those blood cultures are negative in 48 hours, which would be February 09, we could consider transfer back to [facility]. 3. If she is transferred back to [facility] she should go on IV ertapenem 1 g q.24 hours with a minimum duration of that therapy through February 20 but that could be longer depending on her clinical course. In addition, she should go on linezolid 600 mg p.o. b.i.d. with a minimal duration of February 20, but potentially to go much longer. Earlier it was recommended that she have a OLU. That will not be possible because of her esophageal disease and GI bleeding, so we are going to try and treat two to four weeks with the linezolid. 4. If she leaves with the ertapenem and the linezolid orally, she could have a CBC done every week and sent to my office. 5. The patient will need to see me in followup in my office on February 19. 6. My office fax # is [phone]. The laboratory studies should be forwarded there. 7. We will try and use four weeks or so of Zyvox if possible to try and treat what could be a MRSA valve infection, even a longer course could be indicated depending on how she does. 8. Please do not hesitate to call me and discuss this rather complex plan. TAYLERD
[2017-02-07] MEDS: Ondansetron 2 mg/mL 2 mL Inj IVPUSH PRN (17:15)
[2017-02-07] MEDS ORDERED: Pantoprazole Inj 80 MG in 0.9% Sodium Chloride 100 ML IV ONE (17:50)
[2017-02-07] MEDS ORDERED: Octreotide Inj 500 MCG in 0.9% Sodium Chloride 100 ML IV ONE (17:50)
--- NOTE | 2017-02-07 18:31 | NUR ---
Vomiting blood-transfer to 2018 This RN resumed care on pt at 1710 at which time PITCH WORKER reported pt vomiting blood. VSS. Pt c/o nausea. IV meds given along with PO several min after vomiting ceased. Pt vomited again about 20min later. All together, presumably 300mL of blood loss-mixed with sputum. Stool noted to be dark, FOB sent. Family updated at 1810. Labs drawn. GI seen pt in room. GI asked for 4 units to be ready for transfusion, this RN called [facility] and spoke with Andrea to update. Report called to receiving SALMA Slaughter at 1840.
[2017-02-07 18:59] LABS: BASOPHILS % (AUTO) 0.3 % (0-3); EOSINOPHILS % (AUTO) 2.4 % (0-5); MONOCYTES % (AUTO) 11.2 % (4-12); Mean Corpuscular Hemoglobin 30.3 pg (27.0-35.0); Mean Corpuscular Volume 95.7 fL (81-100); NEUTROPHILS % (AUTO) 75.2 % (40-74); Platelet Count 126 bil/L (150-400)
[2017-02-07] MEDS: Pantoprazole Inj 80 MG, Pharmacy To Mix 1 EA in 0.9% Sodium Chloride 80 ML IV SCH ×2 (20:38)
[2017-02-07] MEDS ORDERED: 0.9% Sodium Chloride 1,000 ML IV ONE ×2 (20:55)
--- NOTE | 2017-02-07 21:07 | PCM.ENDEGD ---
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 Scope introduced esophagus. Esophagus showed normal shiny whitish mucosa consistent with squamous cell component. Z line was intact at 40 cm from the incisors. Scope further advanced to the stomach. The entire stomach had multiple AVMs from the antrum to the fundus. Most of the fundus was covered with blood. Based on what I saw , most likely showed slow oozing of blood from all or most of the AVMs are present. Some AVM had fresh heme on it. However when I washed it, no further bleeding noted. None of the AVMs was actively oozing blood. However visualization significantly impaired. Retroflexion was done. Stomach was easily inflated and deflatable using air. Scope further advanced to the distal duodenum. Duodenum had significant amount of older blood superficially covering the mucosa. Therefore surface visualization was very difficult however we did not see any fresh heme. Impression She probably bled from the AVMs and the AVMs may be stabilizing due to aggressive acid suppression. I suspect that she lead from that one of these AVMs but most if not all of it. Scope was terminated because of potential airway compromise from the large amount of clot that was in the fundus. Recommendation Continue IV Protonix 8 mg per hour Nothing by mouth May discontinue octreotide drip We will try to keep hemoglobin level between 7 and 8 If patient has evidence of persistent bleeding, we will transfer the patient to [facility] because most if not all of these AVM need to be cauterized. Last time this was tried, she had a gastric perforation. Presedation Assessment Risks and Benefits Informed consent was obtained from the patient after all risks and benefits including but not limited to drug reaction, infection, pain, bleeding, perforation, as well as alternatives were discussed. Patient monitoring Continuous pulse oximetry, cardiac monitoring, blood pressure monitoring, IV access, and oxygen at 2L per nasal cannula. Complications There were no periprocedural complications identified. Post Procedure Plan Post Procedure Recommendations 1. Restrict activities today. 2. Resume normal activities in the morning. 3. Resume medications. 4. GERD behavioral modification: - Avoid fatty, acidic, spicy, large meals - Do not lie down after meals - Do not eat or drink anything for at least 2 1/2 hours before going to bed at night - Discontinue tobacco and alcohol - Decrease or avoid caffeine - Avoid chocolate and mints - Decrease weight - Avoid aspirin and non steroidal anti-inflammatory agents (NSAID) such as Aleve, Advil, Mobic, Naproxen, Ibuprofen, etc 5. Add proton pump inhibitor. Take 30 minutes before 1st meal of the day. 6. Patient informed of normal post procedure side effects as bloating, drowsiness, blood streaking in the stool 7. If gastric biopsy reveal H.pylori, continue with appropriate treatment 8. If small bowel biopsy reveals celiac, continue with appropriate treatment 9. Please don't hesitate to call me with any questions Iggy Mcdonald MD Feb 07, 2017 21:07
--- NOTE | 2017-02-07 21:25 | PCM.HPANE ---
Patient Data Surgeon Admitting Provider:Gladys Fowler DO Attending Provider:Gladys Fowler DO Primary Care Physician:Macy Baird MD Other Provider: Reason for Visit Severe Anemia Hereditary Hemorrhagic Telangectasia Ht/WT & BMI Height (Feet): 5 Height (Inches): 3.00 Weight (Kilograms): 41.300 Body Mass Index 15.31 Allergies Coded Allergies: No Known Allergies (Verified , 12/16/16) Past Anesthesia History Anesthesia History: Denies:: Abnormal Airway, Anesthesia Reactions, Difficult Intubation, Fam Anesthesia Reaction, Fam Malignant Hypertherm, Malignant Hyperthermia Diabetes History Hx Diabetes?: No MRSA MRSA: No Medications Active Scripts Cefdinir 300 Mg Ehpmxiv168 Mg PO BID #60 CAPSULE Prov:Nelson Centeno MD 01/27/17 Reported Medications Magnesium Hydroxide (Milk of Magnesia)400 Mg/5 Ml Oral.susp30 Ml PO PRN For Constipation 02/04/17 Na Phos,M-B/Na Phos,Di-Ba (Fleet Enema)133 Ml Okhca741 Ml RC PRN For Constipation For no BM after Dulcolax Suppository 02/04/17 Bisacodyl (Dulcolax Rectal)10 Mg Supp.rect10 Mg RC DAILY PRN For Constipation For no BM after MOM 02/04/17 Polyethylene Glycol 3350 (Miralax)17 Gm Powd.pack17 Gm PO DAILY 12/17/16 Ondansetron ODT 4 Mg Tab.rapdis4 Mg PO Q4H PRN For Nausea 12/17/16 Thyroid,Pork ([place] Thyroid)60 Mg Milbws18 Mg PO DAILY 12/17/[address] 20 Mg Tablet.dr20 Mg PO BID 12/17/16 Discontinued Reported Medications Thyroid,Pork ([place] Thyroid)90 Mg Tablet #85 02/03/17 Norethindrone/Eth Estradiol (Zenchent)1 Each Tablet1 Tablet PO every 3 days 06/21/16 History History of ENT Problems?: Yes HEENT History: Positive for:: Cataracts Denies:: Abnormal Airway Difficult Intubation Dysphagia Hearing Problem Sinus Problem Denture Type: None Teeth Condition: Within Normal Limits Hx of Heart Problems?: No Cardiovascular History: Denies:: AICD Abdominal Aortic Aneurism Atrial Fibrillation Cardiac Surgery Chest Pain Congestive Heart Failure Coronary Artery Disease Edema Heart Murmur Hypertension Irregular Heartbeat Pacemaker Peripheral Vascular Rheumatic Fever Thrombophlebitis Valvular Heart Disease Hx of Respiratory Problem?: Yes Respiratory History: Positive for:: Pneumonia (age 13) Denies:: Asthma COPD Chest Surgery Cough Dyspnea Emphysema Hemoptysis Oxygen Administration Pulmonary Embolism Tuberculosis Use of C-PAP Machine Use of Inhalers / NEBS Hx Neurologic Problems?: No Neurological History: Positive for:: Dizziness Denies:: Alzheimer's Disease CVA Dementia Headaches Multiple Sclerosis Parkinson's Disease Peripheral Neuropathy Seizures TIA Hx of GI Problems?: Yes Gastrointestinal History: Denies:: Cirrhosis Diverticulitis Gall Bladder Disease Gastroesphageal Reflux Gastrointestinal Bleeding Heartburn Hepatitis Hiatal Hernia Liver Disease Rectal Bleeding Other GI Pertinent History: liver drain Hx of Problems?: Yes Genitourinary History: Positive for:: Urinary Tract Infection (years ago) Denies:: HX of Hemodialysis Kidney Stones HX of Peritoneal Dialysis: No Female Hx: Denies:: Currently Endometriosis Pelvic Inflammatory Problems with Breasts? Skin History: Denies:: History Skin Disorders? Pressure Ulcers Hx Musculoskeletal Problems?: No Musculoskeletal History: Denies:: Back Injury Degenerative Joint Fibromyalgia Joint Replacement Musculoskeletal Trauma Myasthenia Gravis Osteoarthritis Rheumatoid Arthritis Systemic Lupus Hx of Psycho/Social Problems?: No Psycho Social History: Denies:: Anxiety Bipolar Disorder Hx Depression Suicide Attempt Hx Surgeries?: Yes (thyroidectomy) Hx Any Other Health Problems?: Yes Other History: Positive for:: Hospitalization Thyroid Disease (thyroidectomy) Denies:: Cancer Endocrine Disease History Blood Transfusions: Positive for:: Accept Blood Products? Blood Transfusions Denies:: Blood Transfuse Reaction Hx Diabetes: No Hx Alcohol Use: Yes ("socially, very rarely")Hx Substance Use: No Smoking Status: Never Smoker Stop/Bang Treated for Sleep Apnea?: No S-Snoring: Do You Snore Loudly: No T-Tired: feel tired, fatigued: No O-Obsered: Observed not breath: No P-Blood Pressure: treated: No B- Body Mass Index > 35 kg/m2: No A- Age over 50: Yes N- Neck Large Circumference: No G- Gender Male: No SHAREE Total Score: 0 Risk Assessment Category Category 1A: Patient has history of documented sleep apnea, and HAS NOT received any narcotic, sedative or anesthesia administration during this stay. Category 1B: Patient has history of documented sleep apnea, and HAS received any narcotic , sedative or anesthesia administration during this stay Category 2: Patient has SUSPECTED Obstructive Sleep Apnea, and HAS received any narcotic , sedative or anesthesia administration during this stay. Category 3: Patient has SUSPECTED Obstructive Sleep Apnea and HAS NOT received narcotic, sedative or anesthesia administration during this stay. Category 4: Outpatient in Procedural Areas with known sleep apnea or who screen positive for High Risk via the STOP/BANG questionnaire. Exam Exam Vital Signs Vital Signs Date Time Temp Pulse Resp B/P Pulse Ox O2 Delivery O2 Flow Rate FiO2 02/07/17 18:37 36.6 92 18 109/60 98 Room Air 02/07/17 17:26 37.3 109 20 125/65 98 Room Air 02/07/17 12:40 36.9 90 20 112/65 100 Room Air General Appearance: Alert, Oriented X3, Cooperative, Moderate Distress (tired) HEENT/AIRWAY: MP 2, Mouth Opening (FROM) Lungs: Clear to Auscultation, Normal Air Movement Heart: Exam Unremarkable, Regular Rate/Rhythm, No Murmurs/Rubs/Gallops Meds/Labs/Diagnostics Admission Meds Current Medications Levothyroxine Sodium 50 mcg 50 mcg ONCE ONCE PO Last administered on 02/07/17 17:19; Start 02/07/17 at 16:00; Stop 02/07/17 at 16:08; Status DC Pantoprazole 80 mg/Sodium Chloride 120 ml @ 480 mls/hr ONCE ONCE IV Last administered on 02/07/17 20:16; Start 02/07/17 at 17:50; Stop 02/07/17 at 18:04; Status DC Octreotide Acetate/Sodium Chloride (SandoSTATIN Inj/ Normal Saline) 101 ml @ 10.1 mls/hr ONCE ONCE IV Last administered on 02/07/17 20:14; Start 02/07/17 at 17:50; Stop 02/08/17 at 03:49 Labs Test 02/03/17 00:50 02/03/17 01:14 02/03/17 08:00 02/04/17 23:00 Band Neutrophils % 0% (1-5) Lactic Acid Level 0.2mmol/L (0.4-2.0) Lipase 23U/L (13-60) Urine Color Dark yellow (YELLOW) Urine Appearance Hazy (CLEAR,HAZY) Urine pH 6.5 (5.0-8.0) Urine Specific [place] 1.010 (1.003-1.035) Urine Protein Negativemg/dL (NEG,TRACE) Urine Glucose (UA) Negativemg/dL (NEGATIVE) Urine Ketones Negativemg/dL (NEGATIVE) Urine Occult Blood Negative (NEGATIVE) Urine Nitrite Negative (NEGATIVE) Urine Bilirubin Negative (NEGATIVE) Urine Urobilinogen 1.0mg/dL (NORMAL) Urine Leukocyte Esterase Negative (NEGATIVE) Urine RBC 0-2/hpf (0-2) Urine WBC 0-5/hpf (0-5) Urine Epithelial Cells Moderate/hpf (NONE-MOD) Urine Crystals Oxalic acid crystals (NONE Urine Bacteria Few/hpf (NONE-FEW) Urine Hyaline Casts None/lpf (NONE) Urine Granular Casts None seen (NONE SEEN) Urine Waxy Casts None seen (NONE SEEN) Urine Red Blood Cell Casts None seen (NONE SEEN) Urine White Blood Cell Casts None seen (NONE SEEN) Urine Mucus Present (None Seen) Urine Trichomonas None seen (NONE SEEN) Urine Yeast None (NONE SEEN) Urinalysis Comment None Urine Culture Reflexed Not indicated Hold Urine Received (Received) Thyroid Stimulating Hormone (TSH) 8.030uIU/mL (0.450-4.500) Free Thyroxine 0.47ng/dL (0.82-1.77) Hold Red Top Tube Received (Received) Hold [place] Top Tube Received (Received) Test 02/05/17 05:50 02/07/17 06:05 02/07/17 18:50 Prothrombin Time 11.3sec (8.1-12.5) Prothromb Time International Ratio 1.05ratio Phosphorus Level 3.0mg/dL (2.5-4.9) Magnesium Level 1.7mg/dL (1.6-2.6) Total Bilirubin 0.7mg/dL (0.0-1.2) Aspartate Amino Transf (AST/SGOT) 36U/L (0-50) Alanine Aminotransferase (ALT/SGPT) 17U/L (0-32) Alkaline Phosphatase 501U/L (25-165) Total Protein 4.7g/dL (6.4-8.4) Albumin 2.4g/dL (3.4-5.0) Procalcitonin 0.92ng/mL (0.00-0.08) Sodium Level 136mEq/L (134-144) Potassium Level 4.2mEq/L (3.5-5.2) Chloride Level 102mEq/L (97-108) Carbon Dioxide Level 20mmol/L (18-29) Blood Urea Nitrogen 11mg/dL (8-27) Creatinine < 0.30mg/dL (0.57-1.00) Estimat Glomerular Filtration Rate 304mL/min (>59) Glucose Level 103mg/dL (60-99) Calcium Level 8.3mg/dL (8.5-10.1) White Blood Count 7.2th/mm3 (3.8-10.1) Red Blood Count 2.31mil/mm3 (3.90-5.20) Hemoglobin 7.0g/dL (12.0-15.6) Hematocrit 22.1% (35.0-46.0) Mean Corpuscular Volume 95.7fL (81-100) Mean Corpuscular Hemoglobin 30.3pg (27.0-35.0) Mean Corpuscular Hemoglobin Concent 31.7% (32.0-37.0) Red Cell Distribution Width 15.5% (12.3-15.4) Platelet Count 126bil/L (150-400) Neutrophils (%) (Auto) 75.2% (40-74) Lymphocytes (%) (Auto) 10.5% (14-46) Monocytes (%) (Auto) 11.2% (4-12) Eosinophils (%) (Auto) 2.4% (0-5) Basophils (%) (Auto) 0.3% (0-3) Plan Impression Patient chart reviewed, patient interviewed and anesthestic plan with risks, benefits, and alternatives discussed, and informed consent obtained. NPO per Anesth. Guidelines: Yes ASA Physical Status: ASA3 Plus Emergency Anesthetic Plan: GA Bene/Risks/Altern/Consents: Yes HP Complete Prior to Induction: Yes Richard Harvey MD Feb 07, 2017 20:25
--- NOTE | 2017-02-07 21:26 | PCM.ANEP1 ---
Post Anesthesia PACU Phase 1 Assessment Vital Signs Vital Signs Date Time Temp Pulse Resp B/P Pulse Ox O2 Delivery O2 Flow Rate FiO2 02/07/17 20:35 90 16 116/48 99 Room Air 02/07/17 18:37 36.6 92 18 109/60 98 Room Air 02/07/17 17:26 37.3 109 20 125/65 98 Room Air Anesthetic Administered: GA Level of Alertness: Awake, talking HERNANDEZ's with Equal Strength: Yes Pain: Yes (drain insertion site) Pain Scale Score: 2 Nausea or Vomiting: No CV Function & Hydration Stable: Yes Airway Device: Lungs: Clear to Auscultation, Normal Air Movement Dermatome Level: Full Sensation PACU Phase 2 Assessment Complications: No Follow up Care: N/A Patient Instructions Provided: N/A Richard Harvey MD Feb 07, 2017 21:26
[2017-02-07 22:46] LABS: APPEARANCE,URINE SLIGHTLY CLOUDY (CLEAR,HAZY); COLOR,URINE YELLOW (YELLOW); OCCULT BLOOD,URINE LARGE (NEGATIVE)
[2017-02-07 22:47] LABS: ICTOTEST,URINE POSITIVE (Negative)
[2017-02-08] VITALS (7 sets, daily range): BP systolic 97–131; BP diastolic 48–59; PULSE 65–94; RESP 16–21; O2SAT 96–98
[2017-02-08] MEDS: D5 0.9% NaCl + KCl 20 mEq/L 1,000 ML IV SCH ×2 (00:20→11:36)
[2017-02-08] MEDS: 0.9% Sodium Chloride 250 ML IV SCH (00:20)
[2017-02-08] MEDS: HYDROmorphone 1 mg/mL Inj IVPUSH PRN ×2 (02:11→05:44)
[2017-02-08 05:12] LABS: BASOPHILS % (AUTO) 0.6 % (0-3); EOSINOPHILS % (AUTO) 0.7 % (0-5); MONOCYTES % (AUTO) 9.3 % (4-12); Mean Corpuscular Hemoglobin 30.5 pg (27.0-35.0); Mean Corpuscular Volume 93.8 fL (81-100); NEUTROPHILS % (AUTO) 71.9 % (40-74); Platelet Count 243 bil/L (150-400)
[2017-02-08 05:34] LABS: Magnesium 1.6 mg/dL (1.6-2.6)
[2017-02-08] MEDS: Pantoprazole Inj 80 MG, Pharmacy To Mix 1 EA in 0.9% Sodium Chloride 80 ML IV SCH ×4 (05:41→14:20)
--- NOTE | 2017-02-08 05:54 | NUR ---
GI/Pain Patient stable this shift, patient had upper scope done and was off the unit from [id number], no active bleeding noted since procedure, patient spit up 1-2 tsp bloody saliva about 2229, denies nausea, no vomiting this shift, strict NPO, protonix gtt infusing, no drainage from lever abscess drain, flushed with 10 ml NS x1 this shift per order, voiding on bed padilla, no BM this shift, UA sent to lab, patient stated she is feeling much better this AM, uneventful shift. Addendum: 02/08/17 at 0600 by SAMANTA STEELE RN Amended: Links added.
--- NOTE | 2017-02-08 06:25 | CONS ---
[address] [address] CONSULTATION REPORT PATIENT: STEWART UREÑA : 1935 MR#: [id number] ADMIT: 02/03/2017 JOB ID: [id number] DATE OF SERVICE: 02/07/2017 It was pleasure this patient at [facility] for evaluation of hematemesis and melena. HISTORY OF PRESENT ILLNESS: This is an 81-year-old lady with unfortunate and complex medical history who had underlying issue with hereditary hemorrhagic telangiectasia. She became transfusion dependent with multiple GI bleeding episodes requiring blood transfusion. The patient was seen back in October 2016 and also in August. In August, Dr. 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 Argon plasma was done. There was one AVM that started to bleed during the procedure in the body of the stomach and treatment was given. Because of the diffuseness of the situation, the patient was later transferred for further treatment. Then patient was transferred and received aggressive Argon plasma treatment. This was complicated by gastric perforation which was surgically fixed. Then patient came in later with liver lesion which ended up being an abscess. This was treated with antibiotics and she was in the hospital for 40 days. Her story started last week. She went to a family reunion, came back very weak and at the correction thought they had dislodged the drainage of the abscess. CT was done and the drainage was still there. However, the blood grew out VRE. This afternoon, she was in her usual state of health but she started vomiting blood. Yesterday, her hemoglobin dropped from 7.6-6.7, and patient was given blood. Today, her hemoglobin dropped from 8.3-7.0 and had episodes of vomiting about 100 cc of blood and had started to have melena. She was hemodynamically stable. However, she was transferred to the CCU. Currently, she said she is getting a little dizzy, lightheaded. No chest pain, shortness of breath, abdominal pain. Noticed melena, but no fresh blood in the stools. She also vomited fresh blood. The vomitus contained bright red blood with significant gastric content and saliva. PAST MEDICAL HISTORY: 1. Hereditary hemorrhagic telangiectasia. 2. 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 3. Liver abscess which is being treated. 4. Hypothyroidism. 5. Uterine fibroid mass. SOCIAL HISTORY: She is a nondrinker and smoker. FAMILY HISTORY: Noncontributory. PHYSICAL EXAMINATION: The patient is alert, oriented, does appear comfortable. Temp 36.6, pulse 92, respiration 18, blood pressure 109/60. Head and neck: No icterus. Lungs: Clear. Cardiovascular: Regular rate and rhythm. Normal S1, S2. Abdomen is soft, nontender, nondistended with normoactive bowel sounds. Extremities: No pitting edema of the ankles. Skin shows no jaundice. LABORATORY DATA: Hemoglobin 7.0 at 6:50 p.m. INR 1.05. BUN 11, creatinine 0.3. IMPRESSION: Most likely this is bleeding from arteriovenous malformations. PLAN: We will look inside to see if there is anything that we could fix and in the meantime aggressive acid suppression with IV Protonix and would like to hang one unit of blood. Anesthesia was consulted for sedation. SHY
[2017-02-08] MEDS: Polyethylene Glycol (PEG) 17 Gm Powder PO SCH (08:30)
[2017-02-08] MEDS: Ertapenem Inj 1,000 MG in 0.9% Sodium Chloride 50 ML IV SCH (08:43)
--- NOTE | 2017-02-08 10:09 | PCM.PNMED ---
Subjective Date of Service Feb 08, 2017 Subjective No further hematemesis. Patient did have formed black stools. However this black stool is probably the blood clot in the stomach that I saw yesterday during EGD. Exam Vital Signs Vital Sign - Last Date Time Temp Pulse Resp B/P Pulse Ox O2 Delivery O2 Flow Rate FiO2 02/08/17 08:40 69 02/08/17 08:40 37.1 19 116/53 98 Room Air Intake and Output 02/07/17 02/07/17 02/08/17 Cumulative From/Thru 15:00 23:00 07:00 02/03/17 00:03 - 02/08/17 05:00 Intake Total 1184 ml 1109 ml 8749 ml Output Total 20 ml 325 ml 7162 ml Balance 1164 ml 784 ml 1587 ml Intake Oral 120 ml 0 ml 3020 ml IV Total 1064 ml 769 ml 4704 ml Packed Cells 340 ml 1025 ml Output Urine Total 325 ml 7045 ml Drainage Total 20 ml 0 ml 117 ml # Voids 5 11 # Bowel Movements 5 Exam Patient is alert and comfortable and cachectic Head and neck no icterus Lungs clear Cardia vascular regular rate and rhythm, normal S1-S2 Abdomen soft nontender nondistended with active bowel sounds Extremities no pitting edema of ankles Skin without jaundice Lab and Diagnostics Result Diagram: 02/08/17 0500 02/08/17 0500 Microbiology / bottles growing Gram Positive Cocci, presumptive enterococcus species X-Rays, CTs and MRIs CT ABDOMEN WITH CONTRAST IMPRESSION: 1. Pigtail drainage catheter remains within the right hepatic lobe abscess. 2. 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 3. Resolution of previously seen pleural effusions. 4. Concordant with preliminary interpretation. Dictated by: Junito Cardozo M.D. on 02/03/2017 at 8:08 Approved by: Junito Cardozo M.D. on 02/03/2017 at 8:10 . Cardiac Echo Impressions Echocardiogram Report The left ventricle is normal in size. Left ventricular systolic function is normal without focal wall motion abnormalities. The ejection fraction is estimated to be 60-65%. Assessment of diastolic parameters indicates normal left ventricular diastolic function and normal filling pressures. The right ventricle is normal in size and function. The right ventricular systolic pressure is estimated at 34 mmHg assuming a right atrial pressure of 3 mm Hg. The left atrium is mildly dilated. Right atrial size is normal. The aortic valve is trileaflet. The aortic valve opens well. There is no aortic regurgitation. There is very small filamentous strand at the tips of aortic leaflets. This is best seen on parasternal long axis views with inncreased magnification. Differential should include endocarditis or Lambl's excrescence. Given positive blood cultures, OLU is recommended. Other valves do not have any obvious evidence for endocarditis. The aortic root is mildly dilated. The ascending aorta is mildly enlarged. Moderate atherosclerotic plaque(s) in the aortic arch. Reading Physician:PM Assessment & Plan 81-year-old female admitted 02/03 to concerns of drain being out, drain placement was controlled firm and she was noted to have a fever and blood cultures grew VRE. She has also possible endocarditis. GI clot involved due to hematemesis and melena. Prior to yesterday, H&H was slowly decreasing as well. Upper endoscopy was done yesterday. Please refer to my EGD note from yesterday for further details. But the bottom line is patient had multiple AVMs. I think she probably was blood from most if not all of them. With aggressive acid suppression, none of them was actively bleeding by the time the EGD was done. Currently, she had no further events of hematemesis. Melena is continuing probably from the blood clot that I saw in the stomach. Her hemoglobin went from 7.0-7.7 after 1 unit of blood and now 7.4. Currently minimal evidence of active bleeding at this point. Please try to keep her hemoglobin around 8 so that will have up offer will not transfuse her hemoglobin level above 8. Continue IV Protonix If evidence of further hematemesis or progressive decline in hemoglobin, please transfer the patient to [facility] for aggressive definitive therapy. Later today, if she continues to do well, would start the patient on clear liquid diet and slowly advance starting tomorrow. GI Prophylaxis: H2 trisha VTE Prophylaxis: Other (Patient with chronic bleeding issue so anti- coagulation is withheld ) VTE Mechanical Devices: Venous Foot Pump Resuscitation Status: CPR: Attempt Resuscitation Iggy Mcdonald MD Feb 08, 2017 10:09
--- NOTE | 2017-02-08 13:04 | NUR ---
Pain Patient complained of right side abdomen biliary drain insertion side pain 5-6/10. Patient was medicated with 2.5mg PO oxycodone- patient was able to relax and fell asleep for about 3h afterwards. Patient was monitored per bedside CCU monitoring and remain stable. Patients daughter requested that the patient not be disturbed. After patient wake up she stated felling more rested and pain was resolved. Patient was transferred to no telemetry status-bedside monitoring was discontinued.
--- NOTE | 2017-02-08 14:00 | PCM.PNMED ---
Subjective Date of Service Feb 08, 2017 Subjective Patient with hematemesis overnight which prompted return to CCU for potential acute bleeding event. She was taken for upper endoscopy by Dr. Mcdonald who did not identify any acute large bleed in need of cauterization especially given her history of perforation with prior cautery. Today the patient reports that she continues to be very weak, she has no appetite to speak of, complains of unchanged abdominal pain around the site of insertion of her liver drain, and is generally feeling worse overall compared to yesterday. The patient denies chest pain, palpitations, or abdominal except as listed above. Comprehensive ROS negative except as listed above. Exam Vital Signs Vital Sign - Last Date Time Temp Pulse Resp B/P Pulse Ox O2 Delivery O2 Flow Rate FiO2 02/08/17 11:23 37.0 85 18 125/59 98 Room Air Intake and Output 02/07/17 02/07/17 02/08/17 Cumulative From/Thru 15:00 23:00 07:00 02/03/17 00:03 - 02/08/17 05:00 Intake Total 1184 ml 1109 ml 8749 ml Output Total 20 ml 325 ml 7162 ml Balance 1164 ml 784 ml 1587 ml Intake Oral 120 ml 0 ml 3020 ml IV Total 1064 ml 769 ml 4704 ml Packed Cells 340 ml 1025 ml Output Urine Total 325 ml 7045 ml Drainage Total 20 ml 0 ml 117 ml # Voids 5 11 # Bowel Movements 5 Exam Gen: A/O x3 pleasant cooperative elderly cachectic woman in NAD Neck: Supple, non tender, no JVD, Full ROM HEENT: PERRL, EOMI, no scleral icterus, no conjunctival pallor, significant temporal wasting CV: RRR no murmurs rubs or gallops Resp: Lungs CTA BL, no wheezing rales or rhonchi Abd: Soft, mildly tender around insertion site of drain which is draining brown brackish fluid, no organomegaly, no rebound or guarding Extr: No clubbing cyanosis or edema Neuro: CN 2-12 grossly intact, no focal neurologic deficit Psych: Pleasant and appropriate mood and affect. IVs and Medications IV Fluids NS @ 10 ml TKO 350 ml NS delivered with IV meds Patient given 1U PRBC overnight Medications Reviewed: Medications were reviewed in detail Lab and Diagnostics Item Value Date Time Red Blood Count 2.43 mil/mm3 L 02/08/17 0500 Mean Corpuscular Volume 93.8 fL 02/08/17 050 Mean Corpuscular Hemoglobin 30.5 pg 02/08/17 050 Mean Corpuscular Hemoglobin Concent 32.5 % 02/08/17 050 Red Cell Distribution Width 14.6 % 02/08/17 050 Neutrophils (%) (Auto) 71.9 % 02/08/17 0500 Lymphocytes (%) (Auto) 17.3 % 02/08/17 0500 Monocytes (%) (Auto) 9.3 % 02/08/17 050 Eosinophils (%) (Auto) 0.7 % 02/08/17 050 Basophils (%) (Auto) 0.6 % 02/08/17 050 Estimat Glomerular Filtration Rate mL/min 02/08/17 050 Calcium Level 8.3 mg/dL L 02/08/17 050 Magnesium Level 1.6 mg/dL 02/08/17 050 Result Diagram: 02/08/17 0500 02/08/17 050 Microbiology 4/4 bottles growing Gram Positive Cocci, presumptive enterococcus species X-Rays, CTs and MRIs CT ABDOMEN WITH CONTRAST IMPRESSION: 1. Pigtail drainage catheter remains within the right hepatic lobe abscess. 2. 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 3. Resolution of previously seen pleural effusions. 4. Concordant with preliminary interpretation. Dictated by: Junito Cardozo M.D. on 02/03/2017 at 8:08 Approved by: Junito Cardozo M.D. on 02/03/2017 at 8:10 . Cardiac Echo Impressions Echocardiogram Report The left ventricle is normal in size. Left ventricular systolic function is normal without focal wall motion abnormalities. The ejection fraction is estimated to be 60-65%. Assessment of diastolic parameters indicates normal left ventricular diastolic function and normal filling pressures. The right ventricle is normal in size and function. The right ventricular systolic pressure is estimated at 34 mmHg assuming a right atrial pressure of 3 mm Hg. The left atrium is mildly dilated. Right atrial size is normal. The aortic valve is trileaflet. The aortic valve opens well. There is no aortic regurgitation. There is very small filamentous strand at the tips of aortic leaflets. This is best seen on parasternal long axis views with inncreased magnification. Differential should include endocarditis or Lambl's excrescence. Given positive blood cultures, OLU is recommended. Other valves do not have any obvious evidence for endocarditis. The aortic root is mildly dilated. The ascending aorta is mildly enlarged. Moderate atherosclerotic plaque(s) in the aortic arch. 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 The patient is now coming to [facility] with the likely terminal nature of her incurable co-morbid conditions, there was a santosh discussion today about medical strategy in regards to further hospitalization versus some combination of Home Health and assisted living. Per ID she will likely require indefinite IV antibiotics upon DC for a liver abscess which will likely never resolve given her severely compromised metabolic status and inability to tolerate surgical intervention. There is a plan for a palliative care meeting with family on Friday to have a full and santosh discussion about the optimal course of action in this very unfortunate woman. 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 Active -Appreciate ID consult. Will f/u w/ recs - Echo concerning for endocarditis 02/05 - serial blood cultures till negative starting 02/07 -Linezolid 600 p.o. b.i.d. 02/04- , ongoing Ertapenem Chronic liver abscess, present on admission, ongoing -Liver abscess drain in place -Liver abscess culture previously grew Escherichia coli and Klebsiella. -ID Consult and Abx as noted above -Patient will likely require indefinite antibiotic therapy as she is unable to tolerate surgical intervention Acute blood loss anemia, present on admission, ongoing, continuing to monitor H& H. -Secondary to Hereditary hemorrhagic telangiectasia -2U PRBCs -02/05, 1U 02/06 -Continuing to trend H/H Hereditary hemorrhagic telangiectasia, present on admission, ongoing -Followed by Dr. Bynum as an outpatient. -Transfuse as above. History of acute left upper extremity DVT at site of PICC line during last hospitalization -PICC line was removed on December 20. -Patient is not on anticoagulation currently due to ongoing bleeding risk risk- benefit ratio is against anticoagulation. Severe protein calorie malnutrition, present on admission, active -Continue to encourage oral intake. -Nutritional consult placed -Marinol added to encourage PO intake -BMI 16.6 Chronic constipation, present admission, ongoing -Patient states that her stools are now soft. Hypothyroidism, present on admission, chronic -s/p partial thyroidectomy. -TSH on 01/20/2017 32.590, 8.0 02/03. T4 0.38L 02/03. -adding lexoyl 50mcg 02/07 Disposition: Uncertain at this point, the patient is growing weary of nearly continuous hospitalization and is interested in pursuing options in the community, she had previously resided at [facility] with her , however this facility has indicated that they will not be able to receive her back as long as there is any type of drain in place. We will conduct a palliative care family meeting on 02/10/17 to have a santosh discussion about the patient's options moving forward. Pain Evaluation: Adequate Pain Control GI Prophylaxis: H2 trisha VTE Prophylaxis: Other (Patient with chronic bleeding issue so anti- coagulation is withheld ) VTE Mechanical Devices: Venous Foot Pump Resuscitation Status: CPR: Attempt Resuscitation Attending Statement The patient was seen and examined together with Dr. Limon on 02/08/2017 and I agree with the history, exam and plan as outlined in the note above. . Bj Limon DO Feb 08, 2017 14:00 Alhaji To MD Feb 08, 2017 17:12
[2017-02-08] MEDS: Ondansetron 2 mg/mL 2 mL Inj IVPUSH PRN (18:10)
--- NOTE | 2017-02-08 18:44 | NUR ---
Nausea/positive blood cultures Patient developed nausea after having few bites of her cream of chicken soup this evening- patient was medicated with Zofran 4mg IV x1 and nausea resolved. Patient proceed to drink some of her apple juice and milk but wanted her soup and other foods to be removed from her rom because the smell of it was no longer pleasant to her. All food other than apple juice and milk was removed from her room promptly continue assessment. 4 out of 4 blood culture bottles were positive for "GRAM POSITIVE COCCI" per micro lab call- results were related to the attending MD- no new orders were received at this time.
[2017-02-09] MEDS: Pantoprazole Inj 80 MG, Pharmacy To Mix 1 EA in 0.9% Sodium Chloride 80 ML IV SCH ×6 (01:28→22:40)
[2017-02-09] MEDS: HYDROmorphone 1 mg/mL Inj IVPUSH PRN (03:11)
[2017-02-09 04:41] LABS: BASOPHILS % (AUTO) 0.5 % (0-3); EOSINOPHILS % (AUTO) 2.3 % (0-5); MONOCYTES % (AUTO) 14.6 % (4-12); Mean Corpuscular Hemoglobin 30.5 pg (27.0-35.0); Mean Corpuscular Volume 94.9 fL (81-100); NEUTROPHILS % (AUTO) 67.1 % (40-74); Platelet Count 256 bil/L (150-400)
[2017-02-09 04:54] LABS: INR 1.02 ratio
[2017-02-09 05:02] LABS: Magnesium 1.7 mg/dL (1.6-2.6); Phosphorus 3.1 mg/dL (2.5-4.9)
[2017-02-09] MEDS: 0.9% Sodium Chloride 250 ML IV SCH (05:05)
[2017-02-09] MEDS: Ertapenem Inj 1,000 MG in 0.9% Sodium Chloride 50 ML IV SCH (07:43)
[2017-02-09] MEDS: Polyethylene Glycol (PEG) 17 Gm Powder PO SCH (07:43)
[2017-02-09] MEDS: D5 0.9% NaCl + KCl 20 mEq/L 1,000 ML IV SCH ×2 (07:44→14:20)
[2017-02-09 07:47] VITALS: BP 103/47; PULSE 69; RESP 22; O2SAT 98
--- NOTE | 2017-02-09 10:53 | PROG NOTE ---
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 INTERVAL HISTORY: Recall this is incredibly complicated 81-year-old woman who is now into her 3rd month of treatment for a complex liver abscess. Her course has been complicated by the development of recrudescent fevers, and now a high-grade and sustained VRE bacteremia. Echocardiography suggested that she may have endocarditis or Lambl's excrescence. 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 For her part the patient feels slightly better despite continued high-grade bacteremia. She denies fevers, chills, or sweats. She is not short of breath, and she has no chest pain. She has some minimal pain to her right upper quadrant drain, which has not changed. PHYSICAL EXAMINATION: Vital signs include temperature 36.7. She has been afebrile now for about five days. Pulse 69, respiratory rate 22, blood pressure 103/47. She is saturating 98% on room air and she is in no acute distress. Examination of the mental status reveals it is clear. Overall skin is quite pale. Conjunctiva pale. Lungs clear. Cardiac tones regular rate and rhythm without murmur and specifically no murmur in the aortic region. Abdomen slightly distended, right upper quadrant drain in place. No change from prior. LABORATORIES: Include white blood count 4400, hematocrit 22, platelets 256. Creatinine less than 0.3. Urinalysis with 6-10 white cells. Blood cultures remain positive. We have VRE from the which was the original isolation in blood. Note that was susceptible to daptomycin JOY of 2, linezolid JOY was also 2. Followup blood cultures on February 07 were all positive and this will almost certainly prove to be the same organism and from yesterday we have another blood culture already positive. IMPRESSION: This is an incredibly difficult case of a woman with underlying hereditary hemorrhagic telangiectasias who has a great deal of overall morbidity due to that illness. She then developed a polymicrobial bacteremic liver abscess which has been drained now for a couple months, and she has been receiving IV antibiotics with some, but not total improvement. 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 The optimal management of vancomycin-resistant Enterococci endocarditis is unclear even the largest series there is no agreement whatsoever about how to treat this as this remains a very rare cause of endocarditis and generally in people that are extremely debilitated. The patient is not a candidate for transesophageal echo to better nail down the diagnosis nor would she be under any circumstances a candidate for valve replacement given her other problems. RECOMMENDATIONS: 1. Will continue with ertapenem and the drain for treatment of the liver abscess. 2. Will continue with linezolid as our treatment for the VRE, but if the blood cultures continue to turn positive we may be forced to add daptomycin. Daptomycin is often problematic in treatment of VRE as organisms can get resistant during therapy and very high doses are required. Whether or not these agents might reasonably be given in combination is almost unclear. 3. This case discussed in great detail with the family who was in the room including her son and as well as with the patient.
--- NOTE | 2017-02-09 12:26 | PCM.PNMED ---
Subjective Date of Service Feb 09, 2017 Subjective She had BM this am and noted dark and brown stools. Exam Vital Signs Vital Sign - Last Date Time Temp Pulse Resp B/P Pulse Ox O2 Delivery O2 Flow Rate FiO2 02/09/17 07:47 36.7 69 22 103/47 98 Room Air Intake and Output 02/08/17 02/08/17 02/09/17 Cumulative From/Thru 15:00 23:00 07:00 02/03/17 00:03 - 02/09/17 05:14 Intake Total 1796 ml 200 ml 71190 ml Output Total 1850 ml 1400 ml 24337 ml Balance -54 ml -1200 ml 333 ml Intake Oral 575 ml 200 ml 3795 ml IV Total 1221 ml 5925 ml Packed Cells 1025 ml Output Urine Total 1425 ml 300 ml 8770 ml Stool Total 1100 ml 1100 ml Urine/Stool Mix 400 ml 400 ml Drainage Total 25 ml 142 ml # Voids 8 19 # Bowel Movements 2 7 Exam Patient is alert and oriented comfortable Lungs clear Cardia vascular regular rate and rhythm with normal S1-S2 Abdomen soft nontender and nondistended with normoactive bowel sounds Extremities no pitting edema the ankles Lab and Diagnostics Result Diagram: 02/09/17 0415 02/09/17 0415 Microbiology 12/10 bottles growing Gram Positive Cocci, presumptive enterococcus species X-Rays, CTs and MRIs CT ABDOMEN WITH CONTRAST IMPRESSION: 1. Pigtail drainage catheter remains within the right hepatic lobe abscess. 2. 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 3. Resolution of previously seen pleural effusions. 4. Concordant with preliminary interpretation. Dictated by: Junito Cardozo M.D. on 02/03/2017 at 8:08 Approved by: Junito Cardozo M.D. on 02/03/2017 at 8:10 . Cardiac Echo Impressions Echocardiogram Report The left ventricle is normal in size. Left ventricular systolic function is normal without focal wall motion abnormalities. The ejection fraction is estimated to be 60-65%. Assessment of diastolic parameters indicates normal left ventricular diastolic function and normal filling pressures. The right ventricle is normal in size and function. The right ventricular systolic pressure is estimated at 34 mmHg assuming a right atrial pressure of 3 mm Hg. The left atrium is mildly dilated. Right atrial size is normal. The aortic valve is trileaflet. The aortic valve opens well. There is no aortic regurgitation. There is very small filamentous strand at the tips of aortic leaflets. This is best seen on parasternal long axis views with inncreased magnification. Differential should include endocarditis or Lambl's excrescence. Given positive blood cultures, OLU is recommended. Other valves do not have any obvious evidence for endocarditis. The aortic root is mildly dilated. The ascending aorta is mildly enlarged. Moderate atherosclerotic plaque(s) in the aortic arch. Reading Physician:PM Assessment & Plan 81-year-old female admitted 02/03 to concerns of drain being out, drain placement was controlled firm and she was noted to have a fever and blood cultures grew VRE. She has also possible endocarditis. GI clot involved due to hematemesis and melena. Prior to friday, H&H was slowly decreasing as well. Upper endoscopy was done friday. Please refer to my EGD note for further details. But the bottom line is patient had multiple AVMs. I think she probably was bleeding from most if not all of them. With aggressive acid suppression, none of them was actively bleeding by the time the EGD was done. Currently, she had no further events of hematemesis. Melena is slowly clearing.. Her hemoglobin went from 7.0-7.7-7.4-7.7-7.2. Currently minimal evidence of active bleeding at this point. She may have bleed prior to friday because she was only on pepcid. Would not stop aggressive acid suppression. Please try to keep her hemoglobin around 8 so that will have up offer will not transfuse her hemoglobin level above 8. Continue IV Protonix.Stop IV protonix in tomorrow but would start protonix 40 mg po twice daily when the IV protonix is stopped. She is on full liquid diet. Start soft diet tomorrow. If evidence of further hematemesis and melena clearing, please transfer the patient to [facility] for aggressive definitive therapy. GI Prophylaxis: H2 trisha VTE Prophylaxis: Other (Patient with chronic bleeding issue so anti- coagulation is withheld ) VTE Mechanical Devices: Venous Foot Pump Resuscitation Status: CPR: Attempt Resuscitation Iggy Mcdonald MD Feb 09, 2017 12:26
--- NOTE | 2017-02-09 14:29 | NUR ---
Evaluation completed. Please go to "Notes" then click on "Assessments and Notes" (bottom left corner of screen). Then select appropriate discipline tab on top of screen.
--- NOTE | 2017-02-09 14:31 | PCM.PNMED ---
Subjective Date of Service Feb 09, 2017 Subjective Overnight the patient did relatively well. Patient states she is feeling better overall. Denies chest pain, nausea, vomiting, shortness of breath, abdominal pain, but does endorse weakness. No outward signs of acute GI bleeding. She did have an EGD done yesterday which showed recent bleeding from AVMs but nothing active. Patient states that she had bowel movement which was dark and brown and formed. Patient has history of liver abscess with a drain continues to drain. Infectious disease seen her and continues the ertapenem, as well as linezolid possibly daptomycin for VRE infection. H&H seems stable or at least in line with a recent trend. Exam Vital Signs Vital Sign - Last Date Time Temp Pulse Resp B/P Pulse Ox O2 Delivery O2 Flow Rate FiO2 02/09/17 07:47 36.7 69 22 103/47 98 Room Air Intake and Output 02/08/17 02/08/17 02/09/17 Cumulative From/Thru 15:00 23:00 07:00 02/03/17 00:03 - 02/09/17 05:14 Intake Total 1796 ml 200 ml 83742 ml Output Total 1850 ml 1400 ml 53140 ml Balance -54 ml -1200 ml 333 ml Intake Oral 575 ml 200 ml 3795 ml IV Total 1221 ml 5925 ml Packed Cells 1025 ml Output Urine Total 1425 ml 300 ml 8770 ml Stool Total 1100 ml 1100 ml Urine/Stool Mix 400 ml 400 ml Drainage Total 25 ml 142 ml # Voids 8 19 # Bowel Movements 2 7 Exam Gen: A/O x3 pleasant cooperative elderly cachectic woman in NAD CV: RRR no murmurs rubs or gallops Resp: Lungs CTA BILATERALLY Abd: Soft, mildly tender around insertion site of drain which is draining brown brackish fluid, no organomegaly, no rebound or guarding Extr: No clubbing cyanosis or edema Neuro: CN 2-12 grossly intact, no focal neurologic deficit Psych: Pleasant and appropriate mood and affect. IVs and Medications Medications Reviewed: Medications were reviewed in detail Lab and Diagnostics Result Diagram: 02/09/17 0415 02/09/17 0415 Microbiology 12/10 bottles growing Gram Positive Cocci, presumptive enterococcus species X-Rays, CTs and MRIs CT ABDOMEN WITH CONTRAST IMPRESSION: 1. Pigtail drainage catheter remains within the right hepatic lobe abscess. 2. 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 3. Resolution of previously seen pleural effusions. 4. Concordant with preliminary interpretation. Dictated by: Junito Cardozo M.D. on 02/03/2017 at 8:08 Approved by: Junito Cardozo M.D. on 02/03/2017 at 8:10 . Cardiac Echo Impressions Echocardiogram Report The left ventricle is normal in size. Left ventricular systolic function is normal without focal wall motion abnormalities. The ejection fraction is estimated to be 60-65%. Assessment of diastolic parameters indicates normal left ventricular diastolic function and normal filling pressures. The right ventricle is normal in size and function. The right ventricular systolic pressure is estimated at 34 mmHg assuming a right atrial pressure of 3 mm Hg. The left atrium is mildly dilated. Right atrial size is normal. The aortic valve is trileaflet. The aortic valve opens well. There is no aortic regurgitation. There is very small filamentous strand at the tips of aortic leaflets. This is best seen on parasternal long axis views with inncreased magnification. Differential should include endocarditis or Lambl's excrescence. Given positive blood cultures, OLU is recommended. Other valves do not have any obvious evidence for endocarditis. The aortic root is mildly dilated. The ascending aorta is mildly enlarged. Moderate atherosclerotic plaque(s) in the aortic arch. 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 Per ID she will likely require indefinite IV antibiotics upon DC for a liver abscess which will likely never resolve given her severely compromised metabolic status and inability to tolerate surgical intervention. 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 Active - Source of the infection is likely due to endocarditis; where the source of the endocarditis came from is unknown - Echo concerning for endocarditis 02/05 with very small filamentous strand at the tips of aortic leaflets. - serial blood cultures till negative starting 02/07 with positive blood cultures as recently as 02/08 - Linezolid 600 p.o. b.i.d. 02/04; - Infectious disease is involved and is considering adding daptomycin Chronic liver abscess, present on admission, ongoing -Liver abscess drain in place -Liver abscess culture previously grew Escherichia coli and Klebsiella. -ID Consult and Abx as noted above -Patient will likely require indefinite antibiotic therapy as she is unable to tolerate surgical intervention -Continuing ertapenem Acute blood loss anemia, present on admission, stable -Secondary to Hereditary hemorrhagic telangiectasia -2U PRBCs -02/05, 1U 02/06 -Continuing to monitor H/H -We will attempt to reduce number of blood draws. -EGD performed with notable AVMs likely the cause Hereditary hemorrhagic telangiectasia, present on admission, ongoing -Followed by Dr. Bynum as an outpatient. -Transfuse as above. History of acute left upper extremity DVT at site of PICC line during last hospitalization -PICC line was removed on December 20. -Patient is not on anticoagulation currently due to ongoing bleeding risk risk- benefit ratio is against anticoagulation. Severe protein calorie malnutrition, present on admission, active -Continue to encourage oral intake. -Nutritional consult placed -Marinol added to encourage PO intake -BMI 16.6 Chronic constipation, present admission, ongoing -Patient states that her stools are now soft. Hypothyroidism, present on admission, chronic -s/p partial thyroidectomy. -TSH on 01/20/2017 32.590, 8.0 02/03. T4 0.38L 02/03. -adding lexoyl 50mcg 02/07 Disposition: No current plan for discharge as patient family wishes for everything to be done, although patient seems to understand that she will likely not be cured of this illness. There is a plan for a palliative care meeting with family on Friday to have a full and santosh discussion about the optimal course of action in this very unfortunate woman. Pain Evaluation: Adequate Pain Control GI Prophylaxis: H2 trisha VTE Prophylaxis: Other (Patient with chronic bleeding issue so anti- coagulation is withheld ) VTE Mechanical Devices: Venous Foot Pump Resuscitation Status: CPR: Attempt Resuscitation Attending Statement The patient was seen and examined together with Dr. Jones on 02/09/2017 and I agree with the history, exam and plan as outlined in the note above. . Richard Jones DO Feb 09, 2017 14:31 Alhaji To MD Feb 10, 2017 09:09
[2017-02-09 16:00] VITALS: BP 99/37; PULSE 72; RESP 20; O2SAT 99
--- NOTE | 2017-02-09 20:18 | NUR ---
P: GI, Hemodynamics I,E: Pt continues to have small liquid dark stools. No bright red stools or maroon. Pt tolerating soft/liquid diet although she only takes small amounts. VS are stable. She is afebrile. she has been up out of bed for meals today, and worked with PT walking around her room using the walker well.
[2017-02-09 21:58] VITALS: BP 115/47; PULSE 72; RESP 20; O2SAT 96
[2017-02-10 02:53] VITALS: BP 119/60; PULSE 85; RESP 18; O2SAT 97
[2017-02-10] MEDS: 0.9% Sodium Chloride 250 ML IV SCH ×2 (03:46→19:37)
[2017-02-10 03:56] LABS: BASOPHILS % (AUTO) 0.4 % (0-3); MONOCYTES % (AUTO) 12.3 % (4-12); Mean Corpuscular Volume 96.1 fL (81-100); NEUTROPHILS % (AUTO) 65.4 % (40-74); Platelet Count 317 bil/L (150-400)
[2017-02-10 04:15] LABS: INR 0.97 ratio
--- NOTE | 2017-02-10 07:40 | NUR ---
GI/Pain No stools overnight. Pt c/o 4-510 pain in right abdomen around drain, given oxycodone x2 w/ good effect. Pt appeared to sleep after this med was given, instructed to inform nursing if this was not effective pain management.
[2017-02-10] MEDS: Polyethylene Glycol (PEG) 17 Gm Powder PO SCH (08:30)
[2017-02-10 10:26] VITALS: BP 111/47; PULSE 78; RESP 16; O2SAT 99
[2017-02-10] MEDS: Ertapenem Inj 1,000 MG in 0.9% Sodium Chloride 50 ML IV SCH (10:31)
[2017-02-10] MEDS: D5 0.9% NaCl + KCl 20 mEq/L 1,000 ML IV SCH ×2 (10:32→16:33)
[2017-02-10] MEDS: Pantoprazole Inj 80 MG, Pharmacy To Mix 1 EA in 0.9% Sodium Chloride 80 ML IV SCH ×2 (10:32)
--- NOTE | 2017-02-10 13:25 | NUR ---
Palliative Care Palliative Care received order from Dr Limon 02/10/17 to assist with goals of care. 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 She was re-admitted 02/03/17. Patient resides at [facility] since her recent discharge from [facility]. Ernesto Ford (son) [phone] Ilna Jamie (friend) [phone] Palliative Care will meet with family today at 1:30 p.m. Hilary Ash
--- NOTE | 2017-02-10 13:29 | PCM.CONPAL ---
Date of Service Feb 10, 2017 Date of Hospital Admission: February 03, 2017 at 04:51 Date of Palliative Consult: Feb 10, 2017 Requesting Provider: Bj Limon DO Reason Palliative Care Consult: Advance Care Planning, Goals of Care Discussion Hospital Unit @time of consult: Progressive Care Palliative Care Recommendation Summary of palliative recommendations: -Symptom management (Pain/other) Weakness/Anorexia-she works at [employer] etc. Liver abscess with drain-not resolving and now with VRE bacteremia. Much ? about her drain since [place] states they cannot allow it. According to team- she has pain and malaise when it is out due to build up of pus. Chronic GI bleeding with chronic transfusion requirement- Goals of care-She would like to still consider defibrillation but after discussion with Dr. Limon regarding her poor prognosis shira if not able to get negative BC- she agrees with her family to DNR/DNI with continued antibiotic intervention as long as reasonable Without antibiotics she would have a very rapid decline. -DPOA/Advanced Directives/POLST -Family/emotional support- of 61 yrs, son and daughter Patient Goals: 1. Patient wants to be told the truth about his/her illness, even if it is unpleasant. She appreciates the straightforward discussion. 2. Patient would like to be told prognosis when it can be predicted, to better guide treatment decisions. Additional Medical Diagnoses with primary management by Hospitalist team include : VRE bacteremia HHT with chronic GI Bleeding Problems: Disposition Hoping for discharge to [place] when possible Resuscitation Status Resuscitation Status: DNR/DNI:Do Not Resuscitate/Intubate Limited Interventions: BiPAP, Medications and IV Fluid POLST Updates/Changes Artificially Admin Nutrition: No Artifical Nutrition by Tube POLST Discussed with: Patient . 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 The patient states that she noticed yesterday evening that the drainage tube for her liver abscess was "pulled out about 5 inches." She states that over the last 2 days she has had some pain around the drainage site. Beginning yesterday she had a subjective fever. She has been fatigued as of recent but states that it is no different than baseline. She also admits to dark black stools which are chronic. She denies any chest pain or pressure, shortness of breath, nausea, vomiting, diarrhea, constipation. The patient recently had a long hospital stay from December 17 to January 27 due to E coli and Klebsiella acute liver abscess with bacteremia. CT-guided drain was placed and 12/17/[address] Joel. The patient completed a month-long course of ertapenem and then was transitioned to Rocephin and Flagyl IV. On discharge she was transitioned to Cefdinir. During last hospital stay she also required several blood transfusions. She was also diagnosed at last hospital visit with acute left upper extremity DVT at site of PICC line. She was not started on oral anticoagulation at discharge. PALLIATIVE CARE CONSULTATION 81 yo complicated patient who started feeling poorly last May with increasing fatigue and weight loss. A small lesion was noted in her liver but did not have follow up until Oct when it was noted to be a large abscess and treated with a percutaneous drain and IV antibiotics under the guidance of Dr. Webber. She had a prolonged hospital stay and was out of the hospital but days before returning with low grade T and now bacteria with VRE persisting despite days of IV ertapenem and linezolid. She has ongoing nausea/anorexia and weight loss and fatigue. She states she had a very short window of feeling better shortly after hospitalization for gastric perforation requiring over-sow after [place] rad tx to her stomach for telangiectasias. That was in Oct and she was rehospitalized in early December. She was able to drive and started doing grocery shopping only to again deteriorate-with progressive weakness and dx of her liver abscess. As above-hx DVT UE from PICC. 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 Never smoked and drank very moderately. 61 yrs and had just moved in to [facility] 1 week prior too her hospitalization. Prior to that she and her lived in their house on [address]. 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 They have a son and adopted daughter. She is adopted so has no family hx. 25 yrs ago she was dx with hereditary hemorrhagic telangiectasias syndrome but didn't require transfusions until the past 5 yrs or so. Now she requires transfusion about 2 x per week. Her son has same. 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 Multiple GI bleeds requiring biweekly transfusions in the last several years. Status post gastric perforation 10/25, requiring closure of the perforation. Hepatic abscess with drain in place. Hypothyroidism. Uterine fibroid mass. 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 Family Members Issues: son and adopted daughter support with her who is getting more frail Living Situation: now at [facility] Spiritual Support Spiritual Support not interested Responsive Patient Symptoms Pain (current): Mild Pain (minimum): Mild Pain (maximium): Mild Tiredness/Fatigue: Moderate Nausea: Mild Depression: Mild Anxiety: Mild Drowsiness/Sleepiness: Moderate Anorexia: Moderate Shortness of Breath: Mild Other stiffness, anorexia, weight loss, generalized weakness but restless --est feet Palliative Performance Scale PPS Patient Status: Current PPS Ambulation: Totally Bed PPS Activity: Unable to do most activity PPS Self-Care: Considerable assistance required PPS Intake: Normal or reduced PPS Conscious Level: Full or confusion Allergy Allergies Reviewed: Yes Medications Current Medications: Current Medications Pantoprazole 40 mg BIDAC PO; Start 02/10/17 at 16:30 Scheduled Cefdinir (Cefdinir) 300 Mg Capsule 300 MG PO BID Pantoprazole DR (Pantoprazole DR) 20 Mg Tablet.dr 20 MG PO BID Polyethylene Glycol 3350 (Miralax) 17 Gm Powd.pack 17 GM PO DAILY Thyroid,Pork ([place]roe Thyroid) 60 Mg Tablet 60 MG PO DAILY Scheduled PRN Bisacodyl (Dulcolax Rectal) 10 Mg Supp.rect 10 MG RC DAILY PRN PRN For Constipation For no BM after MOM Magnesium Hydroxide (Milk of Magnesia) 400 Mg/5 Ml Oral.susp 30 ML PO PRN For Constipation Na Phos,M-B/Na Phos,Di-Ba (Fleet Enema) 133 Ml Enema 133 ML RC PRN For Constipation For no BM after Dulcolax Suppository Ondansetron ODT (Ondansetron ODT) 4 Mg Tab.rapdis 4 MG PO Q4H PRN PRN For Nausea Objective Findings Exam Vital Sign - Last Date Time Temp Pulse Resp B/P Pulse Ox O2 Delivery O2 Flow Rate FiO2 02/10/17 10:26 36.9 78 16 111/47 99 Room Air Intake and Output 02/09/17 02/09/17 02/10/17 Cumulative From/Thru 15:00 23:00 07:00 02/03/17 00:03 - 02/10/17 05:06 Intake Total 2628 ml 200 ml 03275 ml Output Total 30 ml 750 ml 49000 ml Balance 2598 ml -550 ml 2381 ml Intake Oral 960 ml 200 ml 4955 ml IV Total 1668 ml 7593 ml Packed Cells 1025 ml Output Urine Total 750 ml 9520 ml Stool Total 0 ml 1100 ml Urine/Stool Mix 400 ml Drainage Total 30 ml 172 ml # Voids 5 24 # Bowel Movements 3 10 Objective cachectic female with good smile, conversant. General: Alert/Oriented x3 HEENT: PERRLA, EOMI, Scleral Anicteric Heart: Tachycardia Lungs: Clear to Percussion Abdomen: Bowel Tones x4 Neuro: Cranial Nerve 3-12 Intact, Other (alert, conversant, mentally astute, decisional) Extremities: No Edema Lab/Diagnostics Lab and Imaging results reviewed in detail in EMR. initial hbg 5.3 now stable at 7.2, Cr-0.3 + BC for VRE 02/03- 02/08 Patient/Family Conference Members Present Family Members Present Son-Alhaji, Daughter Medical Team Members Present? [facility], Bella Gore [facility], Bj Limon DO-working with Dr. Webber. Discussion/Goals of Care Discussion FAMILY UNDERSTANDING OF DISEASE: Patient and family recognize chronic ds and decline since May Pt continues to hope that something can be done for her infection and weight loss DISEASE PROGRESSION/EVIDENCE OF DECLINE: SYMPTOM BURDEN: weakness, anorexia, RUQ pain when drain removed or dislodged- still draining GOALS: wants to be back at [facility] with her . Pt and family willing to pay for addnal assist to make this possible if necessary HOPES/WORRIES: Patient states she is inherently optimistic but she also recognizes the severity of ds Palliative Care counselled: Time spent Total time 60 minutes; >50% face to face with patient and/or family, providing counselling regarding plans and recommendations, and in care coordination with his/her medical teams. I also spent an additional 25 minutes counseling for advanced care planning with the patient/the patients family/the surrogate decision maker. This included 30 min meeting with pt then 50 min family conference. It also included coordination with Dr. Webber and CM. copies to: Macy Baird MD, Deborah A MD Feb 10, 2017 13:29
--- NOTE | 2017-02-10 14:26 | NUR ---
D/C from PT; safe to amb w/nsg FWW SBA
--- NOTE | 2017-02-10 14:30 | NUR ---
Palliative care note D/A: Met with pt and her son and dtr as well as Dr.s Barclay. Discussed current condition where it is now believed that most likely, pt heart is infected with VRE, in addition to being in her blood stream. Dr. Limon has stressed that infection is not curable but only treatable, most likely without hope for cure, with the goal of helping to give pt some increased time. She is offered two options, one being continued IV antibiotics ( antibiotics being ertapenum and daptomycin) or a change to orals (augmentin and linezolid). Discussed potential discharge options for either scenario. Family is aware that chosing to continue IV antibiotics will make for a potentially difficult placement and that pt may end of being placed at a distance from [facility]. Pt clear in stating that she feels her wish is for return to [place] [facility] on orals, but is still deciding.. Question arises as to if [facility] would be able to support pt with VRE. Dr. Jacobo has discussed with jessica Rdz who will contact [facility]. Later learn from Shahrzad that [facility] is investigating if can take with VRE. It has been confirmed that additionally, facility will not be able to take pt back with her current drain. Also speak to pt and family in regards to code status. Pt and family request time to discuss types of further treatment in addition to code status. P: Palliative care to follow. Bella Gore DENTAL PRACTICE MANAGER, [facility]
--- NOTE | 2017-02-10 15:57 | NUR ---
Social Work Note: Continued Discharge Planning Data& Assessment: Per Palliative care MD, pt goal is to return to [place]. SW spoke with Section Supervisor Farida regarding pt return and under what circumstances would she be able to come back home to [place]. [place] Section Supervisor explained the biggest barrier to return is the drain and they are unable to have a client with a drain at their facility. [place] Section Supervisor plans to speak with administration regarding pt positive blood cultures and if she would be able to return to the facility while positive for VRE or if she would have to wait until she comes back with negative blood cultures. Pt would also have to be on oral antibiotics. SW met with pt and pt son at [facility] to communicate this information and discuss discharge planning. Pt confirmed understanding and denies any questions regarding under what circumstances would she be able to return to [place]. SW to update pt and pt family when [facility] updates SW on whether or not they would be able to accept pt back to their facility with positive VRE. Pt son denies any questions and confirmed understanding as well. Pt declined caregiving information at this time and would like to think about her options before deciding on what resources to investigate. Pt and pt son denies any other needs at this time. SW to continue to follow. Plan: Anticipated discharge home to [place] with or without Hospice pending drain removal and blood cultures. Pt and pt son denies any other needs at this time. SW to continue to follow. SOHAN Page
--- NOTE | 2017-02-10 16:20 | PCM.PNMED ---
Subjective Date of Service Feb 10, 2017 Subjective The patient appeared significantly improved in terms of mood and energy compared to 02/08/17, she was an active participant in her care planning discussion. She continues to report some residual weakness, and pain at the sight of tube insertion. She reports anxiety and uncertainty regarding the course of her care. She denies chest pain, SOB, nausea, vomiting, or diarrhea. She is attempting to eat more, but her appetite is less than robust. Comprehensive ROS negative except as outlined above. Exam Vital Signs Vital Sign - Last Date Time Temp Pulse Resp B/P Pulse Ox O2 Delivery O2 Flow Rate FiO2 02/10/17 14:16 Room Air 02/10/17 10:26 36.9 78 16 111/47 99 Intake and Output 02/09/17 02/09/17 02/10/17 Cumulative From/Thru 15:00 23:00 07:00 02/03/17 00:03 - 02/10/17 05:06 Intake Total 2628 ml 200 ml 11476 ml Output Total 30 ml 750 ml 13771 ml Balance 2598 ml -550 ml 2381 ml Intake Oral 960 ml 200 ml 4955 ml IV Total 1668 ml 7593 ml Packed Cells 1025 ml Output Urine Total 750 ml 9520 ml Stool Total 0 ml 1100 ml Urine/Stool Mix 400 ml Drainage Total 30 ml 172 ml # Voids 5 24 # Bowel Movements 3 10 Exam Gen: A/O x3 pleasant cooperative elderly cachectic woman in NAD Neck: Supple, non tender, no JVD, Full ROM HEENT: PERRL, EOMI, no scleral icterus, no conjunctival pallor, significant temporal wasting CV: RRR no murmurs rubs or gallops Resp: Lungs CTA BL, no wheezing rales or rhonchi Abd: Soft, mildly tender around insertion site of drain which is draining brown brackish fluid, no organomegaly, no rebound or guarding Extr: No clubbing cyanosis or edema Neuro: CN 2-12 grossly intact, no focal neurologic deficit Psych: Pleasant and appropriate mood and affect. . IVs and Medications IV Fluids IV NS @ 10 ml hr 350 ml NS delivered with home meds Medications Reviewed: Medications were reviewed in detail Lab and Diagnostics Item Value Date Time Red Blood Count 2.32 mil/mm3 L 02/10/17 0345 Mean Corpuscular Volume 96.1 fL 02/10/17 0345 Mean Corpuscular Hemoglobin 31.0 pg 02/10/17344 Mean Corpuscular Hemoglobin Concent 32.3 % 02/10/17344 Red Cell Distribution Width 14.9 % 02/10/17344 Neutrophils (%) (Auto) 65.4 % 02/10/17344 Lymphocytes (%) (Auto) 18.7 % 02/10/17344 Monocytes (%) (Auto) 12.3 % H 02/10/17344 Eosinophils (%) (Auto) 3.0 % 02/10/17344 Basophils (%) (Auto) 0.4 % 02/10/17344 Estimat Glomerular Filtration Rate mL/min 02/10/17344 Calcium Level 8.4 mg/dL L 02/10/17344 Total Bilirubin 0.3 mg/dL 02/10/17344 Aspartate Amino Transf (AST/SGOT) 53 U/L H 02/10/17344 Alanine Aminotransferase (ALT/SGPT) 31 U/L 02/10/17344 Alkaline Phosphatase 490 U/L H 02/10/17344 Total Protein 4.3 g/dL L 02/10/17344 Albumin 2.1 g/dL L 02/10/17344 Procalcitonin 0.20 ng/mL H 02/10/17344 Result Diagram: 02/10/1734402/10/17344 Microbiology 4/4 bottles growing Gram Positive Cocci, presumptive enterococcus species X-Rays, CTs and MRIs CT ABDOMEN WITH CONTRAST IMPRESSION: 1. Pigtail drainage catheter remains within the right hepatic lobe abscess. 2. 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 3. Resolution of previously seen pleural effusions. 4. Concordant with preliminary interpretation. Dictated by: Junito Cardozo M.D. on 02/03/2017 at 8:08 Approved by: Junito Cardozo M.D. on 02/03/2017 at 8:10 . Cardiac Echo Impressions Echocardiogram Report The left ventricle is normal in size. Left ventricular systolic function is normal without focal wall motion abnormalities. The ejection fraction is estimated to be 60-65%. Assessment of diastolic parameters indicates normal left ventricular diastolic function and normal filling pressures. The right ventricle is normal in size and function. The right ventricular systolic pressure is estimated at 34 mmHg assuming a right atrial pressure of 3 mm Hg. The left atrium is mildly dilated. Right atrial size is normal. The aortic valve is trileaflet. The aortic valve opens well. There is no aortic regurgitation. There is very small filamentous strand at the tips of aortic leaflets. This is best seen on parasternal long axis views with inncreased magnification. Differential should include endocarditis or Lambl's excrescence. Given positive blood cultures, OLU is recommended. Other valves do not have any obvious evidence for endocarditis. The aortic root is mildly dilated. The ascending aorta is mildly enlarged. Moderate atherosclerotic plaque(s) in the aortic arch. Reading Physician:PM Assessment & Plan This is an 81 year old female admitted 02/03 with concerns for misplacement of Drain within liver abscess with multiple underlying co-morbid conditions most prominently Hereditary hemorrhagic telangiectasia, who last month underwent attempted cautery of upper GI bleed complicated by gastric perforation resulting in a liver abscess culture positive for VRE and longstanding protein calorie malnutrition and a BMI of 16.6. There was a santosh discussion in conjunction with primary care regarding the patient's multiple serious and potentially incurable medical conditions, and her desired continued course of care, the patient elected to convert to DNR/DNI status and is still considering her options in terms of IV vs PO antibiotics. The issue at hand is that the facility she would prefer to return to which is where her lives will not accept her with a liver drain in place or with IV antibiotics. She is considering whether to transition to PO antibiotics and remove the drain in order to facilitate DC to her desired location versus continuing with aggressive therapy which will make placement much more problematic. 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 Active - Source of the infection is likely due to endocarditis; where the source of the endocarditis came from is unknown - Echo concerning for endocarditis 02/05 with very small filamentous strand at the tips of aortic leaflets. - serial blood cultures till negative starting 02/07 with positive blood cultures as recently as 02/08 - Linezolid, and Ertapenem IV - Infectious disease is involved and is considering adding daptomycin - Transition to PO would likely involve Linezolid and Augmentin Chronic liver abscess, present on admission, ongoing -Liver abscess drain in place -Liver abscess culture previously grew Escherichia coli and Klebsiella. -ID Consult and Abx as noted above -Patient will likely require indefinite antibiotic therapy as she is unable to tolerate surgical intervention -Continuing ertapenem Acute blood loss anemia, present on admission, stable -Secondary to Hereditary hemorrhagic telangiectasia -2U PRBCs -02/05, 1U 02/06 -Continuing to monitor H/H -We will attempt to reduce number of blood draws. -EGD performed with notable AVMs likely the cause Hereditary hemorrhagic telangiectasia, present on admission, ongoing -Followed by Dr. Bynum as an outpatient. -Transfuse as above. History of acute left upper extremity DVT at site of PICC line during last hospitalization -PICC line was removed on December 20. -Patient is not on anticoagulation currently due to ongoing bleeding risk risk- benefit ratio is against anticoagulation. Severe protein calorie malnutrition, present on admission, active -Continue to encourage oral intake. -Nutritional consult placed -Marinol added to encourage PO intake -BMI 16.6 Chronic constipation, present admission, ongoing -Patient states that her stools are now soft. Hypothyroidism, present on admission, chronic -s/p partial thyroidectomy. -TSH on 01/20/2017 32.590, 8.0 02/03. T4 0.38L 02/03. -adding lexoyl 50mcg 02/07 Disposition: We will clarify her preferred option for continued therapy which will likely determine both the course of clinical care and her destination post discharge, either [place] on PO antibiotics without a drain, or a higher level of care with continued IV antibiotics. Pain Evaluation: Adequate Pain Control GI Prophylaxis: H2 trisha VTE Prophylaxis: Other (Patient with chronic bleeding issue so anti- coagulation is withheld ) VTE Mechanical Devices: Venous Foot Pump Resuscitation Status: CPR: Attempt Resuscitation Attending Statement The patient was seen and examined together with Dr. Limon on 02/10/17 and I agree with the history, exam and plan as outlined in the note above. Bj Limon DO Feb 10, 2017 16:20 Nano Araujo DO Feb 12, 2017 16:28
[2017-02-10] MEDS: Pantoprazole 40 mg ER24 Tablet PO SCH (16:36)
--- NOTE | 2017-02-10 16:40 | PCM.ADCARE ---
Advance Care Planning Note Purpose of Encounter: Clarify goals of care, code status, and desires regarding placement upon discharge Parties in Attendance: Dr. Genie Jacobo from Palliative care Dr. Bj Limon The patient's son and TANMAY The patient's daughter Decisional Capacity: Patient fully aware and cogent, full decision making capacity Subjective: The patient expressed uncertainty about the optimal course of care, she would prefer to discharge back to [facility] which is the facility where her of 60+ years currently resides. She understands that her medical condition is extremely complex and that continuing with aggressive therapy makes discharge planning and placement problematic. Objective: The patient was fully alert and engaged throughout the course of the conversation, she asked and answered questions appropriately. Given the uncertain short term course of her disease process coupled with the uncertainty regarding what various facilities would accept she remains uncertain as to the optimal course of action moving forward. Goals of Care Determinations: The patient desires to be converted to DNR/DNI, but would like all other necessary reasonable interventions such as NPPV, antibiotics, and other supportive measures. In the past she has been unable to tolerate removal of her liver drain secondary to the discomfort of fluid accumulation in her abdomen; and given that the facility that she would prefer is currently steadfast in their refusal to accept her with said drain she is understandably uncertain as to the optimal course of action moving forward. We will attempt to gather further information in regards to what [facility] requirements are, and whether they could tolerate the drain if an outside constitution party was contracted to manage the apparatus. She understands that further aggressive therapy with IV antibiotics would make local placement much more problematic, and appears to be leaning towards transition to PO antibiotics in order to facilitate remaining close to family which her primary concern at this point. Plan: -Will convert code status to DNR/DNI with full treatment short of resuscitation -Will attempt to clarify with [facility] what their reservations about accepting the patient with the drain entail, and whether a situation could be arranged which they would find acceptable -Will ascertain what other options she may have in the community in terms of placement should the drain remain in place. CODE STATUS: DNR/DNI Time Spent Adv.Care Planning: > 35 minutes Bj Limon DO Feb 10, 2017 16:40
[2017-02-10 17:09] VITALS: BP 99/48; PULSE 68; RESP 16; O2SAT 98
--- NOTE | 2017-02-10 17:27 | PCM.PNMED ---
Subjective Date of Service Feb 10, 2017 Subjective Patient was switched to oral PPI. Tolerating diet. Exam Vital Signs Vital Sign - Last Date Time Temp Pulse Resp B/P Pulse Ox O2 Delivery O2 Flow Rate FiO2 02/10/17 17:09 37.0 68 16 99/48 98 Room Air Intake and Output 02/09/17 02/09/17 02/10/17 Cumulative From/Thru 15:00 23:00 07:00 02/03/17 00:03 - 02/10/17 05:06 Intake Total 2628 ml 200 ml 10654 ml Output Total 30 ml 750 ml 89431 ml Balance 2598 ml -550 ml 2381 ml Intake Oral 960 ml 200 ml 4955 ml IV Total 1668 ml 7593 ml Packed Cells 1025 ml Output Urine Total 750 ml 9520 ml Stool Total 0 ml 1100 ml Urine/Stool Mix 400 ml Drainage Total 30 ml 172 ml # Voids 5 24 # Bowel Movements 3 10 Exam Patient is alert comfortable and appropriate Head and neck no icterus Lungs clear Cardia Vascular regular rate and rhythm normal S1-S2 Abdomen soft nontender mild distention with normoactive bowel sounds Extremities no pedal edema of the ankles Lab and Diagnostics Result Diagram: 02/10/17 0345 02/10/17 0345 Microbiology 12/10 bottles growing Gram Positive Cocci, presumptive enterococcus species X-Rays, CTs and MRIs CT ABDOMEN WITH CONTRAST IMPRESSION: 1. Pigtail drainage catheter remains within the right hepatic lobe abscess. 2. 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 3. Resolution of previously seen pleural effusions. 4. Concordant with preliminary interpretation. Dictated by: Junito Cardozo M.D. on 02/03/2017 at 8:08 Approved by: Junito Cardozo M.D. on 02/03/2017 at 8:10 . Cardiac Echo Impressions Echocardiogram Report The left ventricle is normal in size. Left ventricular systolic function is normal without focal wall motion abnormalities. The ejection fraction is estimated to be 60-65%. Assessment of diastolic parameters indicates normal left ventricular diastolic function and normal filling pressures. The right ventricle is normal in size and function. The right ventricular systolic pressure is estimated at 34 mmHg assuming a right atrial pressure of 3 mm Hg. The left atrium is mildly dilated. Right atrial size is normal. The aortic valve is trileaflet. The aortic valve opens well. There is no aortic regurgitation. There is very small filamentous strand at the tips of aortic leaflets. This is best seen on parasternal long axis views with inncreased magnification. Differential should include endocarditis or Lambl's excrescence. Given positive blood cultures, OLU is recommended. Other valves do not have any obvious evidence for endocarditis. The aortic root is mildly dilated. The ascending aorta is mildly enlarged. Moderate atherosclerotic plaque(s) in the aortic arch. Reading Physician:PM Assessment & Plan 81-year-old female admitted 02/03 to concerns of drain being out, drain placement was controlled firm and she was noted to have a fever and blood cultures grew VRE. She has also possible endocarditis. GI clot involved due to hematemesis and melena. Prior to friday, H&H was slowly decreasing as well. Upper endoscopy was done friday. Please refer to my EGD note for further details. But the bottom line is patient had multiple AVMs. I think she probably was bleeding from most if not all of them. With aggressive acid suppression, none of them was actively bleeding by the time the EGD was done. Currently, she had no further events of hematemesis. Melena is slowly clearing.. Her hemoglobin went from 7.0-7.7-7.4-7.7-7.2 - 7.2. Currently minimal evidence of active bleeding at this point. She may have bleed prior to friday because she was only on pepcid. Would not stop aggressive acid suppression. Please try to keep her hemoglobin around 8 so that will have up offer will not transfuse her hemoglobin level above 8. Oral protonix 40 mg po twice daily indefinitely. Start soft diet tomorrow. GI Prophylaxis: H2 trisha VTE Prophylaxis: Other (Patient with chronic bleeding issue so anti- coagulation is withheld ) VTE Mechanical Devices: Venous Foot Pump Resuscitation Status: CPR: Attempt Resuscitation Iggy Mcdonald MD Feb 10, 2017 17:26
--- NOTE | 2017-02-10 17:39 | NUR ---
Stools/Ambulation/Drain No tele, no reports of chest pain/pressure/discomfort. HR 70s-80s. No edema noted. No reports of SOB/dizziness. SPO2 on RA mid to high 90s. Denies cough. Reports intermittent right sided abdominal pain r/t drain. Abdomen firm and tender, denies n/v -- dark green liquid stool with "gritty" pieces x4 today. Miralax withheld this AM. Up with PT this afternoon -- per PT tolerated well, weak but steady on feet and SBA with FWW. Pigtail drain put out 20 cc of green/yellow fluid -- patient reported little to no pain throughout shift at drain site, stating she would prefer to take pain medication closer to bedtime.
--- NOTE | 2017-02-10 19:12 | PROG NOTE ---
[address] [address] PROGRESS NOTE PATIENT: STEWART UREÑA : 1935 MR#: [id number] ADMIT: 02/03/2017 JOB ID: [id number] DATE: 02/10/2017 REASON FOR FOLLOWUP: Polymicrobial bacteremia liver abscess now complicated by sustained VRE bacteremia and possible endocarditis. INTERVAL HISTORY: Over the past 24 hours since I last saw her, the patient has continued to feel relatively well. She has no acute fevers, chills or sweats. No significant shortness of breath or cough and no additional known sources of GI bleeding. She has minimal pain around the hepatic drain. PHYSICAL EXAMINATION: Reveals an afebrile woman 36.9, pulse 78, respiratory rate 16, blood pressure 111/47. She is saturating well on room air, and she is in no acute distress. She is quite pale as is usual. Oral cavity without change. Lungs clear. Cardiac tones without significant new murmur. Abdomen: Nontender with the drain draining bilious material at this point. LABORATORIES: Include a white count 4700, platelet count 317, creatinine less than 0.3. Urinalysis 6-10 white cells. Micro studies include blood cultures, 2/4 bottles from the , are positive and we are now awaiting the cultures that were drawn this morning. Note that we now have positive blood cultures for a total of six consecutive days and we await today's results. No new imaging is available. IMPRESSION: This is a complex case which I have discussed with many practitioners over the last day or so including Dr. Sam, the palliative team and the primary hospitalist service. The patient continues to undergo therapy with IV ertapenem as well as the liver drain for her persistent liver abscess. What has changed is we now have higher volume output from that drain and it is bilious. As discussed with Dr. Sam, it is unclear what would happen if we pulled the drain. The bile may eventually build up and tamponade itself for there could be other more problematic results. Likewise, it is unclear how long to continue aggressive IV antibiotics. The other more pressing problem probably is her high-grade VRE bacteremia for the past six days. Given her ambiguous transthoracic echocardiogram, it now may also be that she has VRE endocarditis, though it would be difficult to prove that without a transesophageal echo. The longer her blood cultures stay positive in the face of linezolid, of course, the more likely she does have endocarditis. I am reluctant to add IV drugs at this point because if she does in fact finally clear her blood cultures only after we add high-dose daptomycin, that would seemingly obligate us to a very long course of daptomycin for presumptive VRE endocarditis. RECOMMENDATIONS: 1. Will continue with ertapenem IV for the liver abscess. 2. 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 3. Will keep the liver drain for the time being. 4. There was a family meeting today about options including taking out the drain, switching to all oral antibiotics and returning to [facility] versus transfer to a [facility] facility such as [facility] for continued IV antibiotic therapy plus liver drainage. The family and the patient are mulling over these options and choices as we await new data on the blood cultures.
[2017-02-10 19:52] VITALS: BP 108/48; PULSE 88; RESP 18; O2SAT 98
[2017-02-10] MEDS: HYDROmorphone 1 mg/mL Inj IVPUSH PRN (22:28)
[2017-02-10 23:16] VITALS: BP 100/51; PULSE 94; RESP 16; O2SAT 95
[2017-02-11] VITALS (9 sets, daily range): BP systolic 104–131; BP diastolic 54–69; PULSE 69–96; RESP 16–18; O2SAT 96–100
[2017-02-11] MEDS: D5 0.9% NaCl + KCl 20 mEq/L 1,000 ML IV SCH ×2 (03:33→17:18)
[2017-02-11] MEDS: HYDROmorphone 1 mg/mL Inj IVPUSH PRN ×3 (03:51→20:57)
[2017-02-11 04:41] LABS: BASOPHILS % (AUTO) 0.5 % (0-3); EOSINOPHILS % (AUTO) 2.8 % (0-5); MONOCYTES % (AUTO) 15.5 % (4-12); Mean Corpuscular Hemoglobin 30.2 pg (27.0-35.0); Mean Corpuscular Volume 99.1 fL (81-100); NEUTROPHILS % (AUTO) 59.9 % (40-74); Platelet Count 352 bil/L (150-400)
[2017-02-11 05:09] LABS: Magnesium 1.7 mg/dL (1.6-2.6); Phosphorus 3.3 mg/dL (2.5-4.9)
[2017-02-11] MEDS: Pantoprazole 40 mg ER24 Tablet PO SCH ×2 (06:42→17:18)
--- NOTE | 2017-02-11 06:51 | NUR ---
Critical Hemoglobin/Pain Lab reported critical hemoglobin of 6.8 this morning, notified and ordered a crossmatch draw & hold, no further orders at this time. Day RN aware. Pt treated for 3-4/10 abdominal pain described as achiness around hepatic drain. Pt given oxycodone which she stated was minimally effective, given Dilaudid with effective pain relief. pt appeared to sleep intermittently between care interventions.
[2017-02-11] MEDS: Polyethylene Glycol (PEG) 17 Gm Powder PO SCH (08:30)
[2017-02-11] MEDS: Ondansetron 2 mg/mL 2 mL Inj IVPUSH PRN (08:39)
[2017-02-11] MEDS: Ertapenem Inj 1,000 MG in 0.9% Sodium Chloride 50 ML IV SCH (09:09)
--- NOTE | 2017-02-11 10:01 | PROG NOTE ---
[address] [address] PROGRESS NOTE PATIENT: STEWART UREÑA : 1935 MR#: [id number] ADMIT: 02/03/2017 JOB ID: [id number] INFECTIOUS DISEASE FOLLOW UP: DATE: 02/11/2017 REASON FOR FOLLOW UP: Polymicrobial bacteremic liver abscess with sustained VRE bacteremia and possible endocarditis superimposed on that problem. INTERVAL HISTORY: Overnight, the patient said she is feeling fairly well. She has a reasonable appetite. No fevers. No chills. No sweats. No significant cough and no abdominal pain. PHYSICAL EXAMINATION: Reveals a comfortable woman sitting up and having breakfast. Temp 36.3, pulse 96, respiratory rate 16, blood pressure 124/55. She is saturating 100% on room air. She looks brighter than she does on most days and more energetic. Oral cavity without change. Lungs fairly clear. Cardiac tones without new murmur. She has a peripheral IV in her right upper extremity. I recall that her left upper extremity had a DVT, but is now back to normal size. Abdomen slightly distended, soft, and nontender. Right upper quadrant trained in good position. Minimal bilious drainage is present. LABORATORY DATA: Labs include a white count of 4300, basically normal diff, creatinine of less than 0.3. Alk phos still 523. AST 55. Pro calcitonin down to 0.13 from a recent peak of 1.27 on February 04. Micro studies include positive blood cultures up to and including February 08 for VRE. The ones from the are negative at about [address] Our last abdominal CT was February 03 now nine days ago, it shows a pigtail drain in the catheter and in the abscess which is decreasing slightly in size by report. IMPRESSION: This is a complex case of a woman with a liver abscess we have been dealing with now for two months. Her liver abscess was due to a bacteremic infection with Escherichia coli and Klebsiella which we have addressed aggressively treated over almost the past 60 days for about almost two full months. More recently, the patient started to have new onset fevers and had multiple blood cultures positive for vancomycin-resistant enterococci. Transthoracic echocardiogram raised the possibility of endocarditis which were unable to confirm with a transesophageal echocardiogram because of esophageal disease and her bleeding diathesis. At this point, we are attempting to suppress and treat her vancomycin-resistant enterococci bacteremia and possible endocarditis with linezolid even as we continue ertapenem and then the liver drain for the liver abscess. Discussions were ongoing as to whether the patient should return to the [facility] assisted living facility without the liver drain with just oral antibiotics, or whether a more aggressive course with continued liver drainage and a combination of oral and IV antibiotics should be pursued at the [facility] in [place]. The patient and her family have ruled out transfer to [place] or any other of the [facility] institutions. RECOMMENDATIONS: 1. CT scan of the abdomen today to re-evaluate what progress we are making with the drain. 2. Continue with the linezolid, as well as ertapenem. 3. If the patient is discharged to either a group home facility or [facility] on oral linezolid, our goal would be to treat for 4-6 weeks which will be quite difficult and we will require twice a week CBCs with particular attention to platelet count. 4. This situation discussed in detail with the patient, her family and Palliative Care.
--- NOTE | 2017-02-11 10:03 | PCM.PALLBR ---
Palliative Care Recommendation Summary of palliative recommendations: 02/11/17- VRE bacteremia-pt thinks she would prefer SNF placement for IV antibiotics and continue with her drain in place. She would be willing to transition to [facility] with oral antibiotics if for some reason this isn't tolerated or it is not working. She wishes to be followed by Dr. Webber in follow up. It is not confirmed on her heart valve but presumed. It can be monitored with ECHO. She is not a OLU candidate due to her esophageal friability/ telangiectasias She is not a surgical candidate due to her many HHT and bleeding risk. Liver Abscess-drain in place but less volume. She states it has never been out long enough to cause her distress. It was always in changing it out for another. That would cause pain but then resolve. Dr. Webber ? whether it needs to stay in. Chronic GI bleed. She is scheduled for transfusion this PM. She does not mind regular transfusions as needed. Goals of care-She wants aggressive care but agrees to be DNR/DNI, limited interventions WRT to code status. POLST needed before discharge. Has DPOAHC/will etc completed. Information re above communicated with CM and with hospital team. -Symptom management (Pain/other) Weakness/Anorexia-she works at [employer]/ensure etc. Liver abscess with drain-not resolving and now with VRE bacteremia. Much ? about her drain since [facility] states they cannot allow it. According to team- she has pain and malaise when it is out due to build up of pus. Chronic GI bleeding with chronic transfusion requirement- Goals of care-She would like to still consider defibrillation but after discussion with Dr. Limon regarding her poor prognosis shira if not able to get negative BC- she agrees with her family to DNR/DNI with continued antibiotic intervention as long as reasonable Without antibiotics she would have a very rapid decline. -DPOA/Advanced Directives/POLST -Family/emotional support- of 63 yrs, son and daughter Patient Goals: 1. Patient wants to be told the truth about his/her illness, even if it is unpleasant. She appreciates the straightforward discussion. 2. Patient would like to be told prognosis when it can be predicted, to better guide treatment decisions. Additional Medical Diagnoses with primary management by Hospitalist team include : VRE bacteremia HHT with chronic GI Bleeding Problems: End of Life Preferences DNR/DNI Goals of Care Continue with IV antibiotics as long as possible/necessary for most aggressive treatment available for her VRE bacteremia Disposition Goal now is for [facility] for continued IV tx Resuscitation Status Resuscitation Status: DNR/DNI:Do Not Resuscitate/Intubate Limited Interventions: BiPAP, Medications and IV Fluid POLST Updates/Changes Previous POLST?: No Artificially Admin Nutrition: No Artifical Nutrition by Tube POLST Discussed with: Patient . Pain: None Total time 40 minutes; >50% face to face with patient and/or family, providing counselling regarding plans and recommendations, and in care coordination with his/her medical teams. In discussion with patient and then Dr. Webber, house staff and CM I also spent an additional [ ] minutes counseling for advanced care planning with the patient/the patients family/the surrogate decision maker. copies to: Macy Baird MD; Neville Webber MD Palliative Brief Note Date of Service Feb 11, 2017 . 81 yo with HHT and chronic GI bleed with transfusion requirement-now Hgb of 6.8. Hx liver abscess with loculations and incomplete drainage despite drain and weeks of antibiotics. Now bacteremia with VRE with persistently +BC altho yesterdays are so far negative. Discussion with patient this AM. She recognizes severity of ds but feels that since hospitalization she has started to gain strength and was able to ambulate yesterday where she had been too weak prior. She would like to be as aggressive as possible and thinks continuation of IV antibiotics makes the most sense for this. She is realistic in expectations but remains optimistic about getting on top of this and would like to try. She recognizes her 's challenge in understanding all this due to his MCI- tends to forget or perseverate so she has chosen not to tell him of her recent dx of VRE bacteremia etc. She acknowledges her children were very upset after the meeting yesterday. O: alert, conversant, appropriate, decisional Hct 6.8, neg BC from 02/10, alk phos at 523, alb 2.1 Carmelita Jacobo MD Feb 11, 2017 10:03
[2017-02-11] MEDS: 0.9% Sodium Chloride 250 ML IV SCH (11:53)
--- NOTE | 2017-02-11 14:19 | NUR ---
NUTRITION FOLLOW UP: Assess: Pt is an 81yo F admitted for severe anemia, with liver abscess now complicated by high grade VRE bacteremia. Palliative care is following. Average po intake throughout stay has been ~45% of meals and pt reports good appetite. She likes to drink Ensure when it is mixed with coffee and ice cream or with frozen strawberries but she doesnt like to drink it plain. She enjoys eggs and cottage cheese. Pt reported that while she was at [facility] she liked Boost Breeze. Pts wt is up 3.7kg since admit. PMHx: Ulcerated gastroesophageal junction, Irregular gastroesophageal junction, Gastric and duodenal hereditary hemorrhagic telangiectasia, Hypothyroid, malnutrition, uterine fibroid. LABS: Reviewed. 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 Marinol, zofran DIET: General, PO ~45% x 8 days GI: BM x 4 (02/10). SKIN: Cosmo 23; 02/04: pale, frail woman lying in bed. Visible muscle/fat loss in face and arms. ANTHROPOMETRICS: Current wt: 42.9kg, BMI 16.8kg/m2, admit wt: 39.2kg Previous Admit Wt: (12/17) 41.5 kg (standing scale) Past Admit Wt: 38.5 kg (Bed scale) IBW: 52.3 kg. UBW (November): 54 kg. ESTIMATED NEEDS: Malnutrition Calories: 4431-7264 (30-35 kcal/kg BW) Protein: 65-80 g/day (1.2-1.5 g/kg IBW) NUTRITION DIAGNOSIS: 1) Severe pro/kcal malnutrition related to chronic illness as evidenced by variable wt, visible loss of LBM/ fat, BMI of 16.1kg/m2---PERSISTS. INTERVENTION: 1) Pt reported that she still likes the Ensure CL but does not like Magic Cups. Will stop sending magic cups and send Ensure CL B&L. MONITOR/EVALUATE: PO intake, labs, weight, nutrition status, overall POC. Follow per moderate nutrition risk guidelines.
--- NOTE | 2017-02-11 14:26 | NUR ---
Palliative care note D/A: Case discussed in PC rounds. Pt and family still discussing various options. This worker to call hospice about possibility of hospice and the oral antibiotics. Dr. Jacobo able to discern oral meds ( Augmentin 875 bid, Linezolid 600 mg bid and Levoquin 500 qd.) Discussed with Ashwini at [facility], will also need to cover issue of continued possible transfusions.. Also discussed with Shahrzad PARRY, dcp. Learn that facility is not able to take drain at this point and are aware that drain is a palliative, pain and symptom management device. Pt will need SNF at this time and medical team is looking at her going with IV antibiotics. [facility] will not be able to be considered due to cost of covering IV antibiotics. Dr. Jacobo has discussed with Shahrzad PARRY to firm up plan. Ashwini from [facility] is aware from discussion with this worker that hospice is not needed at this time. Per Dr. Jacobo, if pt wishes to, in the future, cease all antibiotics and return home for what would be expected to be a short life span, then hospice may be of assistance. P: Palliative care to follow as needed. Bella Gore [facility], CCM
--- NOTE | 2017-02-11 14:38 | DRSVH ---
PROCEDURE: CT ABDOMEN WITH CONTRAST ([id number]) INDICATIONS: F/U liver abscess TECHNIQUE: After the administration of intravenous contrast, 5 mm thick sections acquired from the diaphragm to the iliac crests. 5 mm coronal and sagittal reformats were performed. For radiation dose reduction, the following was used: automated exposure control, adjustment of mA and/or kV according to patient size. COMPARISON: [facility], CT, CT ABD HEPATIC PROTOCOL, 11/06/2016, 18:02. [facility], CT, CT ABD PELVIS W CON, 12/17/2016, 3:11. [facility], CT, CT ABD PELVIS W CON, , 10:00. [facility], CT, CT ABD W CON, 01/25/2017, 9:46. [facility], CT, CT ABD W CON, 02/03/2017, 2:02. FINDINGS: Image quality: Excellent. Lung bases: Bilateral small to moderate pleural effusions appear new. There are bibasilar consolidati on/atelectasis. Heart size is normal. Solid organs: Liver demonstrates heterogeneous enhancement. There is an irregular collection with fl uid and air within the anterior segment of right hepatic lobe. A surgical drain is present within the collection. There is gennaro-systemic shunt. Spleen is normal in size and enhancement. Gallbladder is contracted. Biliary system is non dilated. Pancreas enhances normally. No adrenal nodules. Kidne ys demonstrate normal size and enhancement, without hydronephrosis. Peritoneum and bowel: A large amount stool in colon. Bowel loops demonstrate normal wall thickness a nd caliber. No free fluid or air. Nodes and vessels: No retroperitoneal or mesenteric adenopathy by size criteria. Aorta and inferior vena cava are normal in size. Miscellaneous: No ventral hernias. IMPRESSION: 1. There is a surgical drain within the liver and irregular collection of fluid and gas compatible wi th abscess which is minimally changed. 2. Gennaro-systemic shunt. 3. New bilateral pleural effusions with bibasilar consolidation and/or atelectasis. 4. A large amount of stool in colon. Dictated by: Tarik Sin M.D. on 02/11/2017 at 14:20 Transcribed by: KYLE on 02/11/2017 at 14:37 Approved by: Tarik Sin M.D. on 02/11/2017 at 21:37
--- NOTE | 2017-02-11 15:03 | PCM.PNMED ---
Subjective Date of Service Feb 11, 2017 Subjective The patient states that she feels more or less unchanged compared to yesterday. She continues to have mild aching abdominal pain at the site of her drain insertion, and she initially complained of some nausea which was responsive to PRN anti-emetics. She denies chest pain, SOB, dysuria, diarrhea, or dysuria. Overnight the patient's Hg trended down below 7.0 which prompted administration of 2 further U of PRBC. Comprehensive ROS negative except as outlined above. Exam Vital Signs Vital Sign - Last Date Time Temp Pulse Resp B/P Pulse Ox O2 Delivery O2 Flow Rate FiO2 02/11/17 14:28 36.9 88 18 115/56 02/11/17 08:56 100 Room Air Intake and Output 02/10/17 02/10/17 02/11/17 Cumulative From/Thru 15:00 23:00 07:00 02/03/17 00:03 - 02/11/17 06:50 Intake Total 1119 ml 1963 ml 1450 ml 63708 ml Output Total 1310 ml 720 ml 44264 ml Balance 1119 ml 653 ml 730 ml 4883 ml Intake Oral 300 ml 5255 ml IV Total 1119 ml 1963 ml 1150 ml 14192 ml Packed Cells 1025 ml Output Urine Total 1290 ml 720 ml 35521 ml Stool Total 1100 ml Urine/Stool Mix 400 ml Drainage Total 20 ml 192 ml # Voids 24 # Bowel Movements 4 14 Exam Gen: A/O x3 pleasant cooperative elderly cachectic woman in NAD Neck: Supple, non tender, no JVD, Full ROM HEENT: PERRL, EOMI, no scleral icterus, no conjunctival pallor, significant temporal wasting CV: RRR, +II/ systolic blowing murmur rubs or gallops Resp: Lungs CTA BL, no wheezing rales or rhonchi Abd: Soft, mildly tender around insertion site of drain which is draining greenish brown brackish fluid, no organomegaly, no rebound or guarding Extr: No clubbing cyanosis or edema Neuro: CN 2-12 grossly intact, no focal neurologic deficit Psych: Pleasant and appropriate mood and affect. IVs and Medications IV Fluids NS @ 10 ml/hr 350 ml NS delivered with IV meds Medications Reviewed: Medications were reviewed in detail Lab and Diagnostics Item Value Date Time Red Blood Count 2.25 mil/mm3 L 6/6/17 0415 Mean Corpuscular Volume 99.1 fL 02/11/17414 Mean Corpuscular Hemoglobin 30.2 pg 02/11/17414 Mean Corpuscular Hemoglobin Concent 30.5 % L 02/11/17414 Red Cell Distribution Width 15.0 % 02/11/17414 Neutrophils (%) (Auto) 59.9 % 02/11/17414 Lymphocytes (%) (Auto) 21.1 % 02/11/17414 Monocytes (%) (Auto) 15.5 % H 02/11/17414 Eosinophils (%) (Auto) 2.8 % 02/11/17414 Basophils (%) (Auto) 0.5 % 02/11/17414 Calcium Level 8.4 mg/dL L 02/11/17414 Phosphorus Level 3.3 mg/dL 02/11/17414 Magnesium Level 1.7 mg/dL 02/11/17414 Total Bilirubin 0.2 mg/dL 02/11/17414 Aspartate Amino Transf (AST/SGOT) 55 U/L H 02/11/17414 Alanine Aminotransferase (ALT/SGPT) 35 U/L H 02/11/17414 Alkaline Phosphatase 523 U/L H 02/11/17414 Total Protein 4.4 g/dL L 02/11/17414 Albumin 2.1 g/dL L 02/11/17414 Procalcitonin 0.13 ng/mL H 02/11/17414 Result Diagram: 02/11/1741402/11/17414 Microbiology 4/4 bottles growing Gram Positive Cocci, presumptive enterococcus species X-Rays, CTs and MRIs CT ABDOMEN WITH CONTRAST IMPRESSION: 1. Pigtail drainage catheter remains within the right hepatic lobe abscess. 2. 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 3. Resolution of previously seen pleural effusions. 4. Concordant with preliminary interpretation. Dictated by: Junito Cardozo M.D. on 02/03/2017 at 8:08 Approved by: Junito Cardozo M.D. on 02/03/2017 at 8:10 CT ABDOMEN WITH CONTRAST IMPRESSION: 1. There is a surgical drain within the liver abscess. There is irregular fluid and air collection in liver, minimally changed. 2. Portosystemic venous shunt. 3. Increased bilateral pleural effusions with bibasilar consolidation and/or atelectasis. 4. A large amount of stool in colon. Dictated by: Tarik Sin M.D. on 02/11/2017 at 14:20 Transcribed by: KYLE on 02/11/2017 at 14:37 . Cardiac Echo Impressions Echocardiogram Report The left ventricle is normal in size. Left ventricular systolic function is normal without focal wall motion abnormalities. The ejection fraction is estimated to be 60-65%. Assessment of diastolic parameters indicates normal left ventricular diastolic function and normal filling pressures. Neal Padillao on 02/05/2017 05:17 Reading Physician:PM . Assessment & Plan This is an 81 year old female admitted 02/03 with concerns for misplacement of Drain within liver abscess with multiple underlying co-morbid conditions most prominently Hereditary hemorrhagic telangiectasia, who last month underwent attempted cautery of upper GI bleed complicated by gastric perforation resulting in a liver abscess culture positive for VRE and longstanding protein calorie malnutrition and a BMI of 16.6. There was a santosh discussion in conjunction with palliative care regarding the patient's multiple serious and potentially incurable medical conditions, and her desired continued course of care, the patient elected to convert to DNR/DNI. The issue at hand is that the facility she would prefer to return to which is where her lives will not accept her with a liver drain in place or with IV antibiotics. funds development director from [facility] will come to evaluate the patient 02/12/17. 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 Active - Source of the infection is likely due to endocarditis; where the source of the endocarditis came from is unknown - Echo concerning for endocarditis 02/05 with very small filamentous strand at the tips of aortic leaflets. - serial blood cultures till negative starting 02/07 with positive blood cultures as recently as 02/08 - Blood culture drawn 02/10/17 negative after 24 hrs - Linezolid, and Ertapenem IV - Infectious disease is involved and is considering adding daptomycin - Transition to PO would likely involve Linezolid and Augmentin Chronic liver abscess, present on admission, ongoing -Liver abscess drain in place -Liver abscess culture previously grew Escherichia coli and Klebsiella. -ID Consult and Abx as noted above -Patient will likely require indefinite antibiotic therapy as she is unable to tolerate surgical intervention -Continuing ertapenem Acute blood loss anemia, present on admission, stable -Secondary to Hereditary hemorrhagic telangiectasia -2U PRBCs -02/05, 1U 02/06, 2U 02/11 -Continuing to monitor H/H -We will attempt to reduce number of blood draws. -EGD performed with notable AVMs likely the cause Hereditary hemorrhagic telangiectasia, present on admission, ongoing -Followed by Dr. Bynum as an outpatient. -Transfuse as above. History of acute left upper extremity DVT at site of PICC line during last hospitalization -PICC line was removed on December 20. -Patient is not on anticoagulation currently due to ongoing bleeding risk risk- benefit ratio is against anticoagulation. Severe protein calorie malnutrition, present on admission, active -Continue to encourage oral intake. -Nutritional consult placed -Marinol added to encourage PO intake -BMI 16.6 Chronic constipation, present admission, ongoing -Patient states that her stools are now soft. Hypothyroidism, present on admission, chronic -s/p partial thyroidectomy. -TSH on 01/20/2017 32.590, 8.0 02/03. T4 0.38L 02/03. -adding lexoyl 50mcg 02/07 Disposition: We will clarify her preferred option for continued therapy which will likely determine both the course of clinical care and her destination post discharge. At this point the patient has been after to a SNF with drain and IV antibiotics, however we continue to endeavor to facilitate DC to [facility] which is her desired location. Pain Evaluation: Adequate Pain Control GI Prophylaxis: H2 trisha VTE Prophylaxis: Other (Patient with chronic bleeding issue so anti- coagulation is withheld ) VTE Mechanical Devices: Venous Foot Pump Resuscitation Status: DNR/DNI:Do Not Resuscitate/Intubate Limited Interventions: BiPAP, Medications and IV Fluid Attending Statement The patient was seen and examined together with Dr. Limon on 02/11/17 and I have added additional information to the note above. Bj Limon DO Feb 11, 2017 15:03 Nano Araujo DO Feb 12, 2017 16:32
--- NOTE | 2017-02-11 15:32 | DRSVH ---
PROCEDURE: US VENOUS ARM DUPLEX UNILATERAL, LEFT INDICATIONS: unilateral swelling with past SVT TECHNIQUE: Real-time imaging, as well as color and pulse Doppler interrogation, was performed of the left upper extremity deep veins from the inferior neck to the antecubital fossa. COMPARISON: [facility], US, US VENOUS ARM DPLX UNI LT, 12/20/2016, 15:08. FINDINGS: Nonocclusive thrombus seen within the left internal jugular, subclavian, axillary and basi lic vein similar to prior examination. The cephalic vein is not identified. IMPRESSION: Persistent but now nonocclusive thrombus within the left upper extremity as described. C ontinued followup is recommended. Dictated by: Suraj Potter [facility] Interpreted: Tarik Sin MD on 02/11/2017 at 15:28 Transcribed by: GENEVA on 02/11/2017 at 15:32 Approved by: Tarik Sin M.D. on 02/12/2017 at 12:11
--- NOTE | 2017-02-11 16:44 | NUR ---
Social Work Note: Continued Discharge Planning Data& Assessment: , [employer] Work Supervisor from [facility] and Corporate Relations Director Theo at [facility] are continuing ongoing conversations on whether or not pt might be able to return to their facility to be with her . [employer] Work Supervisor Farida to see pt for bedside assessment tomorrow morning around 8:30am and to see under what circumstances may pt return to [facility] or if they for sure are unable to meet her needs. Pt is agreeable to go back to [facility] if [facility] is unable to accept her but for best patient care and quality of life, SW, Palliative care and MD would like to r/o the possibility of pt returning to [facility] prior to DC back to SNF. SW to continue to follow. Plan: Anticipated discharge home to [facility] with Home Health RN, family support and IV abx at [facility] vs back to [facility]. SW to continue to follow. SOHAN Page
--- NOTE | 2017-02-11 18:47 | NUR ---
CT, Blood Transfusion 0930 - Discussed her situation and care with Dr. Jones, Dr. Araujo, and the multidisciplinary care team during morning rounds. 1205 - 2 units of packed red blood cells were ordered. The first unit was started at this time. Nurse double check completed with Monica Heard RN. Vitals signs remained stable and she finished the first unit at 1430. 1230 - CT called and wanted to know what time they could take her to get a CT completed. Told them that she was currently getting a blood transfusion, but would call soon and this nurse would come with her to maintain her blood transfusion. 1330 - This nurse took her from [facility] [address] with a transporter. She returned and was settled into the room about 1345. 1435 - The second unit of PRBCs was started. She finished up at 1745 and vitals remained stable. 1448 - Ultrasound called with her left arm ultrasound results. Please refer to their report for details. Care continues.
--- NOTE | 2017-02-12 01:58 | NUR ---
P) P) Cardiac/Respiratory Pt. alert and oriented, pleasant affect. Cardiac rhythm irregular with loud murmer noted. Breath sounds slightly coarse and decreased in bases. Pt. able to transfer from bed to commode with minimal assistance but has more difficulty getting back into bed. Had a small amount of loose stool mixed with urine x1, appeared to be very dark/black flakes. Afebrile, only c/o pain x1 so far at site of biliary drain, feels like it gets pulled on when she moves. I) Secured drain tubing better, flushed drain with 10ml. NS. Meds per 's orders. E) Resting quietly with eyes closed.
[2017-02-12] MEDS: HYDROmorphone 1 mg/mL Inj IVPUSH PRN ×3 (02:20→23:52)
[2017-02-12 03:57] VITALS: BP 115/58; PULSE 86; RESP 16; O2SAT 95
[2017-02-12 04:55] LABS: BASOPHILS % (AUTO) 0.4 % (0-3); EOSINOPHILS % (AUTO) 2.7 % (0-5); MONOCYTES % (AUTO) 11.6 % (4-12); Mean Corpuscular Hemoglobin 30.2 pg (27.0-35.0); Mean Corpuscular Volume 94.4 fL (81-100); NEUTROPHILS % (AUTO) 71.7 % (40-74); Platelet Count 401 bil/L (150-400)
[2017-02-12 05:14] LABS: INR 1.02 ratio
[2017-02-12 05:20] LABS: Magnesium 1.7 mg/dL (1.6-2.6); Phosphorus 3.7 mg/dL (2.5-4.9)
[2017-02-12] MEDS: Pantoprazole 40 mg ER24 Tablet PO SCH ×2 (08:27→15:45)
[2017-02-12] MEDS: Ertapenem Inj 1,000 MG in 0.9% Sodium Chloride 50 ML IV SCH (08:27)
[2017-02-12] MEDS: Polyethylene Glycol (PEG) 17 Gm Powder PO SCH (08:28)
[2017-02-12] MEDS: D5 0.9% NaCl + KCl 20 mEq/L 1,000 ML IV SCH ×2 (08:31→20:32)
[2017-02-12 08:33] VITALS: BP 130/57; PULSE 79; RESP 19; O2SAT 98
--- NOTE | 2017-02-12 10:02 | PROG NOTE ---
[address] [address] PROGRESS NOTE PATIENT: STEWART UREÑA : 1935 MR#: [id number] ADMIT: 02/03/2017 JOB ID: [id number] INFECTIOUS DISEASE FOLLOW UP: DATE: 02/12/2017 REASON FOR FOLLOW UP: Polymicrobial bacteremic liver abscess and now with VRE bacteremia, possibly due to endocarditis. INTERVAL HISTORY: Overnight, the patient says she is feeling better and better. No fevers. No chills. No cough. No abdominal pain. She says that she is feeling the best she has in weeks and she notes that her weight has now reached 96 pounds which is a recent high for her. She is hoping to be discharged in the near future. PHYSICAL EXAMINATION: Reveals an afebrile, somewhat perky woman. Temperature 37 degrees, pulse 79, respiratory rate 19, blood pressure 130/57, saturating well on room air. Her lungs are clear. Cardiac tones without new murmur. Abdomen is slightly distended, with drain in the liver; otherwise, completely nontender. Liver drain is producing 15-30 cc per day. No skin rash noted. LABORATORY DATA: Labs include a white count stable at 4800. Platelets actually rising on linezolid now 401. Creatinine less than 0.3. Alk phos is 488. AST and ALT are normal. Procalcitonin down to 0.13. No new micro studies are of great importance. Blood cultures were positive for VRE from February 03 to February 08. Blood cultures on the remain negative at a slightly more than 48 hours. A venous duplex study of the left arm was done and shows persistent, but nonocclusive clot in the left upper extremity. CT of the abdomen also done yesterday shows a drain in the liver with fluid and gas compatible with the abscess with very little change from the CT done a week before. There is also bilateral pleural effusions. IMPRESSION: This extremely complex case of a patient with both polymicrobial liver abscess, which has been treated now for two months with drain and antibiotics, as well as a more recently acquired Vancomycin-resistant enterococci (VRE) bacteremia which may have produced endocarditis; though, we cannot do a transesophageal echocardiogram (OLU) to definitively tell. At this point, the patient is steadily improving and I am hopeful that we can transition her [place] either a [place] [facility] facility or back to [place] in the near future. RECOMMENDATIONS: 1. I have sent a text message to Dr. Sam to discuss the status of her drain in the liver. 2. I would continue with linezolid. If her blood cultures from the 5th stay negative through tomorrow, I think it would be reasonable to discharge her as early as tomorrow with the plan to try and continue oral linezolid for a total of four weeks. This will involve checking a CBC with platelet count twice a week to make sure the platelet count has not dropped especially as we get into the 3rd and 4th weeks of therapy. 3. I would continue on ertapenem as long as that is feasible as I think it represents optimal therapy for liver abscess. If we are forced to switch to oral, we could consider Cefdinir or Augmentin as options. 4. This case was discussed with Dr. Araujo of the Medical Service, as well as the Palliative Care team, as well as the case reviewer.
--- NOTE | 2017-02-12 10:44 | NUR ---
Followed up with [facility] and patient is still on their admit list and they have been following her clinically and will accept back if needed. Updated [employer]
[2017-02-12 11:11] VITALS: BP 107/50; PULSE 79; RESP 20; O2SAT 97
--- NOTE | 2017-02-12 12:23 | NUR ---
Pain control Patient complained of increased pain 5-6/10 to the right abdomen biliary drain insertion side. Patient asked for Dilaudid IV pain medication. Patient was encouraged to take PO oxycodone reader than IV because of her planed discharge to [facility] tomorrow where IV pain medications will not be available to her. Patient agreed and was given 2.5mg PO PRN dose of oxycodone after about 30min patient stated good relieve from pain- continue assessment.
--- NOTE | 2017-02-12 13:56 | NUR ---
Home Health list provided to pt and pt family for preferences. Pt explained she has had [facility] in the past and would like their services again. Referral provided to Ezio with [facility], access provided. SOHAN Page
--- NOTE | 2017-02-12 13:57 | NUR ---
Home Infusion list provided to pt and pt family for preferences. SOHAN Page
--- NOTE | 2017-02-12 13:58 | NUR ---
Social Work Note: Continued Discharge Planning Data& Assessment: EMR reviewed. DESTINEE met with pt and pt family at bedside to discuss discharge planning. DESTINEE spoke with Farida, Renewals Manager from [facility] who explained pt would be able to move to the "Independent" side of their facility which would allow pt to be able to have Home Health RN to help with her drain and allow home infusion to enter her room for her IV abx. SW provided Home Health list for preferences, pt preference is for [facility]. SW provided referral to Ezio with [facility]. Ezio is investigating if pt would be able to have daily RN at a private cost in order to help manage her drain at home. SW also provided Home Infusion List to pt family to review for preferences. Pt family has not decided on Home Infusion company at this time. SW to obtain preference for Home Infusion company to send referral and to see if pt will have a co-pay associated with her home infusion service due to cost of Ert[place]um. Farida Director at [facility] explained pt family has not begun the process of changing pt and pt to "Independent" level of living at their facility yet and this would need to take place prior to pt discharge back home to [facility]. SW to follow up with pt and pt family regarding Home Infusion preferences, follow up with [facility] about the potential to private pay for extra RN services and follow up with [facility] regarding when pt is officially on the "Independent" side of their faiclity. Pt and pt family denies any other needs at this time. SW to continue to follow. Plan: Anticipated discharge to [facility] living with [facility] RN and SW, Home infusion and family support vs. [facility] for drain and IV medication management. SW to follow up with pt and pt family, [facility], and [facility]. SW to continue to follow. SOHAN Page Addendum: 02/12/17 at 1522 by PIERRE ABDUL SW attempted to meet with pt at bedside to discuss discharge options and final plan. Pt would like more time to think about her options for IV abx and let SW know tomorrow what she would like to do. SOHAN Page
--- NOTE | 2017-02-12 14:41 | PCM.PNMED ---
Subjective Date of Service Feb 12, 2017 Subjective The patient states that the prospect of imminent discharge has raised her spirits greatly, and as such is feeling much better today. She states that she continues to experience intermittent pain at the site of her drain insertion, but is overall feeling much improved, especially after transfusion yesterday. No significant overnight events. Comprehensive ROS negative except as listed above. Exam Vital Signs Vital Sign - Last Date Time Temp Pulse Resp B/P Pulse Ox O2 Delivery O2 Flow Rate FiO2 02/12/17 11:11 37.0 79 20 107/50 97 Room Air Intake and Output 02/11/17 02/11/17 02/12/17 Cumulative From/Thru 15:00 23:00 07:00 02/03/17 00:03 - 02/12/17 06:14 Intake Total 375 ml 1576 ml 1250 ml 65813 ml Output Total 15 ml 1400 ml 44160 ml Balance 375 ml 1561 ml -150 ml 6669 ml Intake Oral 200 ml 5455 ml IV Total 75 ml 1276 ml 1050 ml 65603 ml Packed Cells 300 ml 300 ml 1625 ml Output Urine Total 1400 ml 90101 ml Stool Total 1100 ml Urine/Stool Mix 400 ml Drainage Total 15 ml 207 ml # Voids 24 # Bowel Movements 14 Exam Gen: A/O x3 pleasant cooperative elderly cachectic woman in NAD Neck: Supple, non tender, no JVD, Full ROM HEENT: PERRL, EOMI, no scleral icterus, no conjunctival pallor, significant temporal wasting CV: RRR, +II/ blowing systolic murmur no rubs or gallops Resp: Lungs CTA BL, no wheezing rales or rhonchi Abd: Soft, mildly tender around insertion site of drain which is draining greenish brown brackish fluid, no organomegaly, no rebound or guarding Extr: No clubbing cyanosis or edema Neuro: CN 2-12 grossly intact, no focal neurologic deficit Psych: Pleasant and appropriate mood and affect. IVs and Medications Medications Reviewed: Medications were reviewed in detail Lab and Diagnostics Item Value Date Time Red Blood Count 3.05 mil/mm3 L 02/12/17406 Mean Corpuscular Volume 94.4 fL 02/12/17406 Mean Corpuscular Hemoglobin 30.2 pg 02/12/17406 Mean Corpuscular Hemoglobin Concent 31.9 % L 6/7/17 0407 Red Cell Distribution Width 17.3 % H 02/12/17406 Neutrophils (%) (Auto) 71.7 % 02/12/17 040 Lymphocytes (%) (Auto) 13.2 % L 02/12/17406 Monocytes (%) (Auto) 11.6 % 02/12/17406 Eosinophils (%) (Auto) 2.7 % 02/12/17406 Basophils (%) (Auto) 0.4 % 02/12/17406 Calcium Level 8.7 mg/dL 02/12/17406 Phosphorus Level 3.7 mg/dL 02/12/17406 Magnesium Level 1.7 mg/dL 02/12/17406 Total Bilirubin 0.8 mg/dL 02/12/17406 Aspartate Amino Transf (AST/SGOT) 33 U/L 02/12/17406 Alanine Aminotransferase (ALT/SGPT) 28 U/L 02/12/17406 Alkaline Phosphatase 488 U/L H 02/12/17406 Total Protein 4.6 g/dL L 02/12/17406 Albumin 2.3 g/dL L 02/12/17406 Result Diagram: 02/12/1740602/12/17406 Microbiology 4/ bottles growing Gram Positive Cocci, presumptive enterococcus species X-Rays, CTs and MRIs CT ABDOMEN WITH CONTRAST IMPRESSION: 1. Pigtail drainage catheter remains within the right hepatic lobe abscess. 2. 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 3. Resolution of previously seen pleural effusions. 4. Concordant with preliminary interpretation. Dictated by: Junito Cardozo M.D. on 02/03/2017 at 8:08 Approved by: Junito Cardozo M.D. on 02/03/2017 at 8:10 CT ABDOMEN WITH CONTRAST IMPRESSION: 1. There is a surgical drain within the liver abscess. There is irregular fluid and air collection in liver, minimally changed. 2. Portosystemic venous shunt. 3. Increased bilateral pleural effusions with bibasilar consolidation and/or atelectasis. 4. A large amount of stool in colon. Dictated by: Tarik Sin M.D. on 02/11/2017 at 14:20 Transcribed by: KYLE on 02/11/2017 at 14:37 . Cardiac Echo Impressions Echocardiogram Report The left ventricle is normal in size. Left ventricular systolic function is normal without focal wall motion abnormalities. The ejection fraction is estimated to be 60-65%. Assessment of diastolic parameters indicates normal left ventricular diastolic function and normal filling pressures. Neal Grijalva on 02/05/2017 05:17 Reading Physician:PM . Additional Diagnostics US VENOUS ARM DUPLEX UNILATERAL, LEFT IMPRESSION: Persistent but now nonocclusive thrombus within the left upper extremity as described. Continued followup is recommended. Dictated by: Suraj Potter RRA Interpreted: Tarik Sin MD on 02/11/2017 at 15:28 Transcribed by: GENEVA on 02/11/2017 at 15:32 Approved by: Tarik Sin M.D. on 02/12/2017 at 12:11 . Assessment & Plan This is an 81 year old female admitted 02/03 with concerns for misplacement of Drain within liver abscess with multiple underlying co-morbid conditions most prominently Hereditary hemorrhagic telangiectasia, who last month underwent attempted cautery of upper GI bleed complicated by gastric perforation resulting in a liver abscess culture positive for VRE and longstanding protein calorie malnutrition and a BMI of 16.6. There was a santosh discussion in conjunction with palliative care regarding the patient's multiple serious and potentially incurable medical conditions, and her desired continued course of care, the patient elected to convert to DNR/DNI. director of operations home health from [facility] evaluated the patient on 02/12/17, it was determined that the patient could transition to the independent living section of [facility] with additional home health nursing to assist with drain management and IV antibiotics. 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 Active - Source of the infection is likely due to endocarditis; where the source of the endocarditis came from is unknown - Echo concerning for endocarditis 02/05 with very small filamentous strand at the tips of aortic leaflets. - serial blood cultures till negative starting 02/07 with positive blood cultures as recently as 02/08 - Blood culture drawn 02/10/17 negative after 48 hrs - Linezolid IV will convert to PO upon DC, and Ertapenem IV - Home health nursing will likely be required to assist with administration of antibiotics and drain management. Chronic liver abscess, present on admission, ongoing -Liver abscess drain in place -Liver abscess culture previously grew Escherichia coli and Klebsiella. -ID Consult and Abx as noted above -Patient will likely require indefinite antibiotic therapy as she is unable to tolerate surgical intervention -Continuing ertapenem Acute blood loss anemia, present on admission, stable -Secondary to Hereditary hemorrhagic telangiectasia -2U PRBCs -02/05, 1U 02/06. 2U 02/11 -Continuing to monitor H/H -We will attempt to reduce number of blood draws. -EGD performed with notable AVMs likely the cause Hereditary hemorrhagic telangiectasia, present on admission, ongoing -Followed by Dr. Bynum as an outpatient. -Transfuse below Hg 7. History of acute left upper extremity DVT at site of PICC line during last hospitalization -PICC line was removed on December 20. -Patient is not on anticoagulation currently due to ongoing bleeding risk risk- benefit ratio is against anticoagulation. Severe protein calorie malnutrition, present on admission, active -Continue to encourage oral intake. -Nutritional consult placed -Marinol added to encourage PO intake -BMI 16.6 Chronic constipation, present admission, ongoing -Patient states that her stools are now soft. -Follow up CT reveals extensive Stool burden Hypothyroidism, present on admission, chronic -s/p partial thyroidectomy. -TSH on 01/20/2017 32.590, 8.0 02/03. T4 0.38L 02/03. -adding lexoyl 50mcg 02/07 Disposition: Patient will likely DC to [facility] living facility tomorrow with home health nursing pending continued negative blood cultures tomorrow. GI Prophylaxis: H2 trisha VTE Prophylaxis: Other (Patient with chronic bleeding issue so anti- coagulation is withheld ) VTE Mechanical Devices: Venous Foot Pump Resuscitation Status: DNR/DNI:Do Not Resuscitate/Intubate Limited Interventions: BiPAP, Medications and IV Fluid Attending Statement After significant discussion with the patient's assisted living facility, [facility], decision was made finally to allow the patient to go home with independent living and home health and private nursing. The patient is competent and able to take care of her own drain in the evening time should she need further drainage and knows the signs and symptoms that she needs to return to the emergency room. After discussing with Dr. Webber (infectious disease) the patient will return to the [facility] for daily IV antibiotic therapy. After discussion with Dr. Sam (GI) he is okay with the patient continuing to drain and continuing to monitor this as an outpatient. The patient will receive daily antibiotic infusions and will have blood work done twice a week while at the [facility]. If the patient's H&H has dropped below 7 she will be transfused at that time. The patient was seen and examined together with Dr. Limon on 02/12/17 and I have added additional information to the note above. Bj Limon DO Feb 12, 2017 14:41 Nano Araujo DO Feb 12, 2017 16:39
[2017-02-12 15:46] VITALS: BP 128/70; PULSE 76; RESP 19; O2SAT 96
--- NOTE | 2017-02-12 16:15 | PCM.PALLBR ---
Palliative Care Recommendation Summary of palliative recommendations: 02/12/17-C established and pt is comfortable with this. Will aim for POLST prior to d/c. Otherwise will sign off for Palliative Care. Please feel free to contact us if new issues develop. 02/11/17- VRE bacteremia-pt thinks she would prefer SNF placement for IV antibiotics and continue with her drain in place. She would be willing to transition to [facility] with oral antibiotics if for some reason this isn't tolerated or it is not working. She wishes to be followed by Dr. Webber in follow up. It is not confirmed on her heart valve but presumed. It can be monitored with ECHO. She is not a OLU candidate due to her esophageal friability/ telangiectasias She is not a surgical candidate due to her many HHT and bleeding risk. Liver Abscess-drain in place but less volume. She states it has never been out long enough to cause her distress. It was always in changing it out for another. That would cause pain but then resolve. Dr. Webber ? whether it needs to stay in. Chronic GI bleed. She is scheduled for transfusion this PM. She does not mind regular transfusions as needed. Goals of care-She wants aggressive care but agrees to be DNR/DNI, limited interventions WRT to code status. POLST needed before discharge. Has DPOAHC/will etc completed. Information re above communicated with CM and with hospital team. -Symptom management (Pain/other) Weakness/Anorexia-she works at [employer] etc. Liver abscess with drain-not resolving and now with VRE bacteremia. Much ? about her drain since [facility] states they cannot allow it. According to team- she has pain and malaise when it is out due to build up of pus. Chronic GI bleeding with chronic transfusion requirement- Goals of care-She would like to still consider defibrillation but after discussion with Dr. Limon regarding her poor prognosis shira if not able to get negative BC- she agrees with her family to DNR/DNI with continued antibiotic intervention as long as reasonable Without antibiotics she would have a very rapid decline. -DPOA/Advanced Directives/POLST -Family/emotional support- of 63 yrs, son and daughter Patient Goals: 1. Patient wants to be told the truth about his/her illness, even if it is unpleasant. She appreciates the straightforward discussion. 2. Patient would like to be told prognosis when it can be predicted, to better guide treatment decisions. Additional Medical Diagnoses with primary management by Hospitalist team include : VRE bacteremia HHT with chronic GI Bleeding Problems: End of Life Preferences DNR/DNI Goals of Care Continue with IV antibiotics as long as possible/necessary for most aggressive treatment available for her VRE bacteremia Disposition Goal now is for [facility] for continued IV tx Resuscitation Status Resuscitation Status: DNR/DNI:Do Not Resuscitate/Intubate Limited Interventions: BiPAP, Medications and IV Fluid POLST Updates/Changes Previous POLST?: No Artificially Admin Nutrition: No Artifical Nutrition by Tube POLST Discussed with: Patient Total time 15 minutes; >50% face to face with patient and/or family, providing counselling regarding plans and recommendations, and in care coordination with his/her medical teams. I also spent an additional [ ] minutes counseling for advanced care planning with the patient/the patients family/the surrogate decision maker. Palliative Brief Note Date of Service Feb 12, 2017 . No change in status. Remains set on IV antibiotics and leave drain in --at least for now. Interested in more activity. Dr. Araujo has worked things out with [facility] for her IV Abs and drain management. Cultures negative from 02/10/17 Carmelita Jacobo MD Feb 12, 2017 16:15
--- NOTE | 2017-02-12 20:38 | PROG NOTE ---
[address] [address] PROGRESS NOTE PATIENT: STEWART UREÑA : 1935 MR#: [id number] ADMIT: 02/03/2017 JOB ID: [id number] DATE: 02/12/2017 SUBJECTIVE: The patient continues to drain between 15 and 30 cc today. Home health has been arranged and nursing is quite comfortable managing the drain at [place] which is great. The patient is looking forward to transitioning home and they are trying to figure out the logistics of how they are going to approach the IV antibiotics whether that be through home infusion services or through [facility]. Regardless, the patient at this point is not inclined to remove the drain just yet. I presented her with the idea of potentially removing it and simply monitoring her for complication. In that home health nursing is arranged, she would rather wait to see if the drainage actually falls to a much more acceptable level. OBJECTIVE: The patient was in no distress. Alert, oriented, appropriate, cooperative, conversational. Family at the bedside. Bilious drainage still in the percutaneous transhepatic catheter bag. LABORATORIES: Hemoglobin 9.2. Alk phos 488. Transaminases normal. Bilirubin normal. The most recent blood cultures are negative. She has been on treatment for VRE. ASSESSMENT AND RECOMMENDATION: This is an 81-year-old female with hereditary hemorrhagic telangiectasia, and a history of hepatic abscess has occurred following gastric perforation treated surgically. She continues to have slightly more drainage into the bag than I would typically be comfortable with prior to ordering the drain be removed. I love the idea of home health nursing for ongoing monitoring. Antibiotic length of therapy will be in essence at the discretion of Dr. Webber. I plan to see the patient in my office the Friday after next to review the drainage and revise the plan accordingly depending on how she is getting on.
[2017-02-12 20:40] VITALS: BP 137/41; PULSE 80; RESP 16; O2SAT 97
--- NOTE | 2017-02-13 02:19 | NUR ---
Pain/GI P: Pt c/o Rt sided abd pain, incisional near t-drain, 4-5/10. Rt T-drain to gravity. I: given dilaudid 0.5mg IV prn for pain, flushed t-drain with 10cc sterile NS as ordered. E: meds helpful with pain, down to 2-3/10, t-tube drained with greenish liquid, vital signs stable.
[2017-02-13] MEDS: 0.9% Sodium Chloride 250 ML IV SCH (03:39)
[2017-02-13] MEDS: HYDROmorphone 1 mg/mL Inj IVPUSH PRN (03:45)
[2017-02-13 03:46] VITALS: BP 124/69; PULSE 88; RESP 16; O2SAT 94
[2017-02-13 04:08] LABS: Mean Corpuscular Hemoglobin 29.9 pg (27.0-35.0); Mean Corpuscular Volume 96.4 fL (81-100)
[2017-02-13 04:20] LABS: INR 1.02 ratio
[2017-02-13 04:31] LABS: Magnesium 1.8 mg/dL (1.6-2.6); Phosphorus 3.7 mg/dL (2.5-4.9)
[2017-02-13 07:44] VITALS: BP 118/54; PULSE 69; RESP 20; O2SAT 98
[2017-02-13] MEDS: Pantoprazole 40 mg ER24 Tablet PO SCH (07:59)
[2017-02-13] MEDS: Polyethylene Glycol (PEG) 17 Gm Powder PO SCH (08:00)
[2017-02-13] MEDS: Ertapenem Inj 1,000 MG in 0.9% Sodium Chloride 50 ML IV SCH (08:00)
--- NOTE | 2017-02-13 09:09 | PROG NOTE ---
[address] [address] PROGRESS NOTE PATIENT: STEWART UREÑA : 1935 MR#: [id number] ADMIT: 02/03/2017 JOB ID: [id number] DATE: 02/13/2017 INFECTIOUS DISEASE FOLLOW UP NOTE: REASON FOR FOLLOWUP: VRE bacteremia with probable endocarditis as well as bacteremic polymicrobial liver abscess in a debilitated woman. INTERVAL HISTORY: Overnight, the patient has felt stable and stronger. She denies fevers, chills or sweats. No cough or shortness of breath. No significant abdominal pain. During the past 24 hours or so since I last rounded on this patient, I have discussed this case extensively with the GI lead consultant, Dr. Sam, as well as Dr. Nano Araujo of the Medicine service and social work. We have arrived at a plan for discharge. PHYSICAL EXAMINATION: Reveals an afebrile woman in no acute distress. Temperature 36.9, pulse 69, respiratory rate 20, blood pressure 118/54. She is saturating well on room air. She is in no acute distress and looks quite perky as she may be discharged later today. Oral cavity unremarkable. Lungs clear. Cardiac tones without new murmur. Abdomen soft and nontender today. The drain is still present with 10-30 cc of daily of bilious drainage. LABORATORIES: Include a white count of 4300, platelets 458 which are climbing while she is on linezolid. Creatinine less than 0.3. AST, ALT normal. Alk phos 488. Procalcitonin 0.13. Urinalysis 6-10 white cells. Recall that blood cultures done on February 03 through February 08 grew VRE. Follow up blood cultures on the are negative at three days. We have no new imaging. IMPRESSION: This is an extremely complex case and numerous services including Palliative Care, GI, the hospitalist team and others have been closely involved. The padilla issues here are that she has a large and very slow to resolve liver abscess despite now over two months of drainage and aggressive intravenous coverage aimed at the two isolated gram-negative rods as well as anaerobes. This has all been complicated now by a high-grade VRE bacteremia with an equivocal transthoracic echo in a patient in whom we cannot obtain a transesophageal echo. We are thus left treating the patient for a recalcitrant liver abscess as well as a VRE bacteremia with possible endocarditis. The patient has elected for aggressive therapy in the hopes that she can return to her normal state of compensated health and continue to provide companionship to her as well as stay involved in her extended family's life. RECOMMENDATIONS: 1. The patient has chosen to be discharged back to [place] and arrangements have been made for her to continue with the hepatic drain at that location. 2. For antibiotics we will continue with ertapenem 1 g once a day through at least February 26. This will be given in the [facility] and the patient's family will take her back and forth daily for this. We are planning to use peripheral IVs as much as possible as she has already had a DVT due to a PICC in her left arm, but if necessary, we will use a midline or other more permanent catheter. 3. I will see the patient on February 26 in my clinic, and at that time, re-evaluate the need for continued antibiotics for the liver abscess. 4. Dr. Sam of will be following the patient regarding the liver drain. 5. With respect to her VRE bacteremia, we are going to continue on linezolid 600 mg p.o. b.i.d. with the hope of finishing a month of therapy which will take us through March 07. This will entail danger with respect to low platelets and neuropathy and I will be closely monitoring for that with twice a week CBCs that I will be reviewing. Oddly, the patient's platelet count seems to be skyrocketing currently even as she receives linezolid. 6. At some point, perhaps on February 26, will make the transition to oral therapy for the liver abscess with Augmentin or Cefdinir, but such decision will be put off until we see how she does clinically. 7. These orders have been discussed with the primary team as well as with the discharge planners and they are aware of the antibiotic plans as above. 8. ID will go ahead and sign off today, as the patient will be leaving later today hopefully and I will see the patient on February 26.
[2017-02-13] MEDS ORDERED: DRON2.5C10 PO (11:03)
--- NOTE | 2017-02-13 11:29 | PCM.DIMED ---
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 However, all those mutations that allow it to resist antibiotics mean that it is not particularly aggressive or dangerous to people with normal immune systems. The best thing you can do to continue to treat this infection is to keep taking your antibiotics, and to the best of your ability eat as much protein and nutrition as you can to get your own immune system stronger. Chronic liver abscess, present on admission, ongoing: Based on your last CT scan this abscess appears to be stable. We will continue to treat this with IV antibiotics at least until February [address] Webber in his clinic. If it appears to be improving at that time he may be able to transition you to oral antibiotics which will be much simpler for you. It is uncertain at this point if or when you may be able to remove your liver drain; we will wait and see how the abscess responds to the continued antibiotics Acute blood loss anemia, present on admission, stable: Please continue to monitor your stool for any signs of increased blood. If you have bloody vomit, or are just feeling weak as you have prior to transfusion in the past please alert your primary care provider to be evaluated for possible transfusion. Hereditary hemorrhagic telangiectasia, present on admission, ongoing: Unfortunately we do not have any great treatment options for this condition beyond continuing to transfuse you with blood when you need it. The gastrointestinal doctor does not feel that further procedures to try and fix the bleeding would be of any great use to you; both because you are likely to continue bleeding from multiple sites and because you have already had a complication from prior attempts to stop your bleeding. History of acute left upper extremity DVT at site of PICC line during last hospitalization: The recent ultrasound that we did of your left arm shows that you do still have a partial blockage in that blood vessel. This clot does not completely block the vessel and does not require any aggressive treatment at this time. Please continue to keep an eye on that arm, if it swells up on you please alert your primary care provider or go to the urgent care or ER for further evaluation. Severe protein calorie malnutrition, present on admission, active: It is very important that you try to eat as much nutritious food as possible. Lean meats like chicken, fish, or pork as well as fiber rich vegetables will help you maintain your strength and help your immune system fight off infection. Chronic constipation, present admission, ongoing: Please continue to take your stool softeners and laxatives, in addition to eating a good amount of fiber to try and keep your bowels moving. Hypothyroidism, present on admission, chronic: You may want to consider going on an alternative hypothyroid medication to Rowdy thyroid, as this medication is not as consistent as synthetic forms of thyroid supplements. . Medication Instructions Additional med instructions We will continue with your antibiotic management after discharge, we have arranged for you to return here to the hospital to receive IV Ertapenem daily until at least February 26. You will also be continued on your current dose of Linezolid as an oral pill. I have continued the Marinol which is a medication designed to help stimulate your appetite. Dr. Webber will be coordinating you laboratory follow for the antibiotics. Test Results Test Results Your blood cultures drawn on February 10 are still negative. This is a very encouraging sign that the antibiotics are working. Diet Discharge Diet: Other (Try to take in as much healthy food as you can, this means lean protein such as chicken and fish, and fiber rich vegetables in order to avoid further constipation.) Activity Discharge Activity: Limited until seen by PCP (Please see your primary care provider to coordinate any potential further physical therapy to maintain your strength) Call your provider Call your provider for: Fever or Chills, Shortness of breath, Bleeding, Chest pain, Vomitting, Excessive diarrhea, Weakness (unilateral) Patient Instructions Patient Instructions We are discharging you to [facility], with home health nursing to help you manage your liver drain. We have also made arrangements for you receive IV antibiotics daily here at the hospital. Please inform your primary care provider if you have any further blood vomit or stool, or if you became weaker as in prior episodes when you needed transfusions. Follow-up plan Follow up with your primary care provider Dr. Baird within 2 weeks. Follow up with Dr. Webber on February 26. Follow-up Provider: Neville Webber MD Follow-up with PCP in: 2 weeks (February 26) Provider: Macy Baird MD Follow-up in: 2 weeks Nano Araujo DO 02/13/17 1224: Discharge Instructions Patient Instructions Patient Instructions You will have weekly CBC's in order to monitor your hemoglobin. If your hemoglobin drops below 7 then you should be transfused [address] Webber will continue to monitor this during your antibiotic infusions; however , once the antibiotics have stopped you will still need to continue with weekly CBCs in order to monitor your hemoglobin levels for possible transfusions. Your primary care physician should be able to continue this weekly regiment and manage this as an outpatient once Dr. Webber is no longer involved. Attending's Statement The patient was seen and examined together with Dr. Limon on 02/13/17 and I have added additional information to the note above. Bj Limon DO Feb 13, 2017 11:29 Nano Araujo DO Feb 13, 2017 12:24
[2017-02-13] MEDS: D5 0.9% NaCl + KCl 20 mEq/L 1,000 ML IV SCH (11:40)
[2017-02-13] MEDS ORDERED: LINE600T7 PO (11:45)
--- NOTE | 2017-02-13 12:09 | PCM.DC.MED ---
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 However, all those mutations that allow it to resist antibiotics mean that it is not particularly aggressive or dangerous to people with normal immune systems. The best thing you can do to continue to treat this infection is to keep taking your antibiotics, and to the best of your ability eat as much protein and nutrition as you can to get your own immune system stronger. Chronic liver abscess, present on admission, ongoing: Based on your last CT scan this abscess appears to be stable. We will continue to treat this with IV antibiotics at least until February [address] Webber in his clinic. If it appears to be improving at that time he may be able to transition you to oral antibiotics which will be much simpler for you. It is uncertain at this point if or when you may be able to remove your liver drain; we will wait and see how the abscess responds to the continued antibiotics Acute blood loss anemia, present on admission, stable: Please continue to monitor your stool for any signs of increased blood. If you have bloody vomit, or are just feeling weak as you have prior to transfusion in the past please alert your primary care provider to be evaluated for possible transfusion. Hereditary hemorrhagic telangiectasia, present on admission, ongoing: Unfortunately we do not have any great treatment options for this condition beyond continuing to transfuse you with blood when you need it. The gastrointestinal doctor does not feel that further procedures to try and fix the bleeding would be of any great use to you; both because you are likely to continue bleeding from multiple sites and because you have already had a complication from prior attempts to stop your bleeding. History of acute left upper extremity DVT at site of PICC line during last hospitalization: The recent ultrasound that we did of your left arm shows that you do still have a partial blockage in that blood vessel. This clot does not completely block the vessel and does not require any aggressive treatment at this time. Please continue to keep an eye on that arm, if it swells up on you please alert your primary care provider or go to the urgent care or ER for further evaluation. Severe protein calorie malnutrition, present on admission, active: It is very important that you try to eat as much nutritious food as possible. Lean meats like chicken, fish, or pork as well as fiber rich vegetables will help you maintain your strength and help your immune system fight off infection. Chronic constipation, present admission, ongoing: Please continue to take your stool softeners and laxatives, in addition to eating a good amount of fiber to try and keep your bowels moving. Hypothyroidism, present on admission, chronic: You may want to consider going on an alternative hypothyroid medication to [place] thyroid, as this medication is not as consistent as synthetic forms of thyroid supplements. . Consultations Infectious disease with Dr. Webber Gastroenterology with Dr. Mcdonald Palliative care with Dr. Jacobo Procedures XRay, CTs & MRIs CT ABDOMEN WITH CONTRAST IMPRESSION: 1. Pigtail drainage catheter remains within the right hepatic lobe abscess. 2. 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 3. Resolution of previously seen pleural effusions. 4. Concordant with preliminary interpretation. Dictated by: Junito Cardozo M.D. on 02/03/2017 at 8:08 Approved by: Junito Cardozo M.D. on 02/03/2017 at 8:10 CT ABDOMEN WITH CONTRAST IMPRESSION: 1. There is a surgical drain within the liver abscess. There is irregular fluid and air collection in liver, minimally changed. 2. Portosystemic venous shunt. 3. Increased bilateral pleural effusions with bibasilar consolidation and/or atelectasis. 4. A large amount of stool in colon. Dictated by: Tarik Sin M.D. on 02/11/2017 at 14:20 Transcribed by: KYLE on 02/11/2017 at 14:37 . Cardiac Echo Impression Echocardiogram Report The left ventricle is normal in size. Left ventricular systolic function is normal without focal wall motion abnormalities. The ejection fraction is estimated to be 60-65%. Assessment of diastolic parameters indicates normal left ventricular diastolic function and normal filling pressures. Neal Grijalva on 02/05/2017 05:17 Reading Physician:PM . Other Diagnostics US VENOUS ARM DUPLEX UNILATERAL, LEFT IMPRESSION: Persistent but now nonocclusive thrombus within the left upper extremity as described. Continued followup is recommended. Dictated by: Suraj Potter [facility] Interpreted: Tarik Sin MD on 02/11/2017 at 15:28 Transcribed by: GENEVA on 02/11/2017 at 15:32 Approved by: Tarik Sin M.D. on 02/12/2017 at 12:11 . Brief History Taken from History and Physical composed by Dr. 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 The patient states that she noticed yesterday evening that the drainage tube for her liver abscess was "pulled out about 5 inches." She states that over the last 2 days she has had some pain around the drainage site. Beginning yesterday she had a subjective fever. She has been fatigued as of recent but states that it is no different than baseline. She also admits to dark black stools which are chronic. She denies any chest pain or pressure, shortness of breath, nausea, vomiting, diarrhea, constipation. The patient recently had a long hospital stay from December 17 to January 27 due to E coli and Klebsiella acute liver abscess with bacteremia. CT-guided drain was placed and 12/17/[address] Joel. The patient completed a month-long course of ertapenem and then was transitioned to Rocephin and Flagyl IV. On discharge she was transitioned to Cefdinir. During last hospital stay she also required several blood transfusions. She was also diagnosed at last hospital visit with acute left upper extremity DVT at site of PICC line. She was not started on oral anticoagulation at discharge. Taken from PALLIATIVE CARE CONSULTATION composed by Dr. Genie Jacobo on 02/10/17 81 yo complicated patient who started feeling poorly last May with increasing fatigue and weight loss. A small lesion was noted in her liver but did not have follow up until Oct when it was noted to be a large abscess and treated with a percutaneous drain and IV antibiotics under the guidance of Dr. Webber. She had a prolonged hospital stay and was out of the hospital but days before returning with low grade T and now bacteria with VRE persisting despite days of IV ertapenem and linezolid. She has ongoing nausea/anorexia and weight loss and fatigue. She states she had a very short window of feeling better shortly after hospitalization for gastric perforation requiring over-sow after [place] rad tx to her stomach for telangiectasias. That was in Oct and she was rehospitalized in early December. She was able to drive and started doing grocery shopping only to again deteriorate-with progressive weakness and dx of her liver abscess. As above-hx DVT UE from PICC. 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 Never smoked and drank very moderately. 61 yrs and had just moved in to [place] 1 week prior too her hospitalization. Prior to that she and her lived in their house on [address]. 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 They have a son and adopted daughter. She is adopted so has no family hx. 25 yrs ago she was dx with hereditary hemorrhagic telangiectasias syndrome but didn't require transfusions until the past 5 yrs or so. Now she requires transfusion about 2 x per week. Her son has same condition requiring transfusions . Hospital Course This is an 81 year old female admitted 02/03 with concerns for misplacement of Drain within liver abscess with multiple underlying co-morbid conditions most prominently Hereditary hemorrhagic telangiectasia, who last month underwent attempted cautery of upper GI bleed complicated by gastric perforation resulting in a liver abscess culture positive for VRE in the setting of longstanding protein calorie malnutrition and a BMI of 16.6. There was a santosh discussion in conjunction with palliative care regarding the patient's multiple serious and potentially incurable medical conditions, and her desired continued course of care, the patient elected to convert to DNR/DNI with limitations. The patient still wants antibiotics, IV fluids if necessary, and regular blood transfusions as necessary for her chronic disease. sustainability executive director from [place] spoke with Dr. Araujo on 02/12/17 and it was determined that the patient could transition to the independent living section of [place] with additional home health nursing to assist with drain management and IV antibiotics. The patient will remain in her current room however her label of assisted living will change to independent living. The patient will remain in her same room and will continue to have access to the meal programs and activities. The patient will continue to follow up with Dr. Webber as an outpatient for daily antibiotic administration in the MOC in [facility]. At this time the patient will also have weekly CBCs to monitor her H&H and will be given blood transfusions 2 units at that time if her hemoglobin is less than 7. The patient is being discharged home in stable condition. 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 Active - Source of the infection is likely due to endocarditis; where the source of the endocarditis came from is unknown - Echo concerning for endocarditis 02/05 with very small filamentous strand at the tips of aortic leaflets. - serial blood cultures till negative starting 02/07 with positive blood cultures as recently as 02/08 - Blood culture drawn 02/10/17 negative after 72 hrs - Linezolid IV will convert to PO upon DC, and Ertapenem IV will be continued with daily infusion here at [facility] - Home health nursing will be required to assist with drain management. Chronic liver abscess, present on admission, ongoing -Liver abscess drain in place -Liver abscess culture previously grew Escherichia coli and Klebsiella. -ID Consult and Abx as noted above -Continuing ertapenem until at least February 26, at which point she will be evaluated by Dr. Webber in his clinic. Will continue to follow CBC and platelets in the interim Acute blood loss anemia, present on admission, stable -Secondary to Hereditary hemorrhagic telangiectasia -2U PRBCs -02/05, 1U /. 2U 02/11 -Continuing to monitor H/H -We attempted to reduce number of blood draws and used pediatric tubes when possible -EGD performed with notable AVMs likely the cause Hereditary hemorrhagic telangiectasia, present on admission, ongoing -Followed by Dr. Bynum as an outpatient. -Transfuse below Hg 7. History of acute left upper extremity DVT at site of PICC line during last hospitalization -PICC line was removed on December 20. -Patient is not on anticoagulation currently due to ongoing bleeding risk risk- benefit ratio is against anticoagulation. -Follow up US revealed non occlusive thrombus in LUE Severe protein calorie malnutrition, present on admission, active -Continue to encourage oral intake. -Nutritional consult placed -Marinol added to encourage PO intake -BMI 16.6 Chronic constipation, present admission, ongoing -Patient states that her stools are now soft. -Follow up CT reveals extensive Stool burden Hypothyroidism, present on admission, chronic -s/p partial thyroidectomy. -TSH on 01/20/2017 32.590, 8.0 02/03. T4 0.38L 02/03. -adding lexoyl 50mcg 02/07 -Patient was transitioned back to [place] thyroid upon DC per patient preference . Exam Vital Signs (Last) Date Time Temp Pulse Resp B/P Pulse Ox O2 Delivery O2 Flow Rate FiO2 02/13/17 07:47 Supplement Oxygen 02/13/17 07:44 36.9 69 20 118/54 98 Exam Gen: A/O x3 pleasant cooperative elderly cachectic woman in NAD Neck: Supple, non tender, no JVD, Full ROM HEENT: PERRL, EOMI, no scleral icterus, no conjunctival pallor, significant temporal wasting CV: RRR, +II/ blowing systolic murmur no rubs or gallops Resp: Lungs CTA BL, no wheezing rales or rhonchi Abd: Soft, mildly tender around insertion site of drain which is draining greenish brown brackish fluid, no organomegaly, no rebound or guarding Extr: No clubbing cyanosis or edema Neuro: CN 2-12 grossly intact, no focal neurologic deficit Psych: Pleasant and appropriate mood and affect. Test 02/03/17 00:50 02/03/17 01:14 02/03/17 08:00 02/04/17 23:00 Band Neutrophils % 0% (1-5) Lactic Acid Level 0.2mmol/L (0.4-2.0) Lipase 23U/L (13-60) Hold Urine Received (Received) Thyroid Stimulating Hormone (TSH) 8.030uIU/mL (0.450-4.500) Free Thyroxine 0.47ng/dL (0.82-1.77) Hold Red Top Tube Received (Received) Test 02/07/17 22:05 02/08/17 05:00 02/11/17 04:15 02/12/17 04:07 Urine Color Yellow (YELLOW) Urine Appearance Slightly cloudy Urine pH 5.0 (5.0-8.0) Urine Specific [place] 1.025 (1.003-1.035) Urine Protein Negativemg/dL (NEG,TRACE) Urine Glucose (UA) Negativemg/dL (NEGATIVE) Urine Ketones Negativemg/dL (NEGATIVE) Urine Occult Blood Large (NEGATIVE) Urine Nitrite Negative (NEGATIVE) Urine Bilirubin Small (NEGATIVE) Urine Ictotest Positive (Negative) Urine Urobilinogen 1.0mg/dL (NORMAL) Urine Leukocyte Esterase Small (NEGATIVE) Urine RBC 11-50/hpf (0-2) Urine WBC 6-10/hpf (0-5) Urine Epithelial Cells Moderate/hpf (NONE-MOD) Urine Crystals None seen (NONE SEEN) Urine Bacteria Moderate/hpf (NONE-FEW) Urine Hyaline Casts None/lpf (NONE) Urine Granular Casts None seen (NONE SEEN) Urine Waxy Casts None seen (NONE SEEN) Urine Red Blood Cell Casts None seen (NONE SEEN) Urine White Blood Cell Casts None seen (NONE SEEN) Urine Mucus None seen (None Seen) Urine Trichomonas None seen (NONE SEEN) Urine Yeast None (NONE SEEN) Urinalysis Comment Urine Culture Reflexed Indicated Hold [place] Top Tube Received (Received) Procalcitonin 0.13ng/mL (0.00-0.08) Neutrophils (%) (Auto) 71.7% (40-74) Lymphocytes (%) (Auto) 13.2% (14-46) Monocytes (%) (Auto) 11.6% (4-12) Eosinophils (%) (Auto) 2.7% (0-5) Basophils (%) (Auto) 0.4% (0-3) Total Bilirubin 0.8mg/dL (0.0-1.2) Aspartate Amino Transf (AST/SGOT) 33U/L (0-50) Alanine Aminotransferase (ALT/SGPT) 28U/L (0-32) Alkaline Phosphatase 488U/L (25-165) Total Protein 4.6g/dL (6.4-8.4) Albumin 2.3g/dL (3.4-5.0) Test 02/13/17 03:34 White Blood Count 4.3th/mm3 (3.8-10.1) Red Blood Count 3.04mil/mm3 (3.90-5.20) Hemoglobin 9.1g/dL (12.0-15.6) Hematocrit 29.3% (35.0-46.0) Mean Corpuscular Volume 96.4fL (81-100) Mean Corpuscular Hemoglobin 29.9pg (27.0-35.0) Mean Corpuscular Hemoglobin Concent 31.1% (32.0-37.0) Red Cell Distribution Width 16.5% (12.3-15.4) Platelet Count 458bil/L (150-400) Prothrombin Time 10.9sec (8.1-12.5) Prothromb Time International Ratio 1.02ratio Sodium Level 136mEq/L (134-144) Potassium Level 4.6mEq/L (3.5-5.2) Chloride Level 102mEq/L (97-108) Carbon Dioxide Level 25mmol/L (18-29) Blood Urea Nitrogen 6mg/dL (8-27) Creatinine < 0.30mg/dL (0.57-1.00) Estimat Glomerular Filtration Rate mL/min (>59) Glucose Level 121mg/dL (60-99) Calcium Level 8.6mg/dL (8.5-10.1) Phosphorus Level 3.7mg/dL (2.5-4.9) Magnesium Level 1.8mg/dL (1.6-2.6) Microbiology Results 12/10 bottles growing Gram Positive Cocci, presumptive enterococcus species Discharge Medications Discharge Medications Dronabinol (Dronabinol) 2.5 Mg Capsule 5 MG PO TIDAC Prescribed by: VIC LIMON DO Linezolid (Linezolid) 600 Mg Tablet 600 MG PO BID Prescribed by: VIC LIMON DO Pantoprazole (Pantoprazole DR) 20 Mg Tablet.dr 20 MG PO BID (Reported) Polyethylene Glycol 3350 (Miralax) 17 Gm Powd.pack 17 GM PO DAILY (Reported) Thyroid,Pork ([place] Thyroid) 60 Mg Tablet 60 MG PO DAILY (Reported) As needed Bisacodyl (Dulcolax Rectal) 10 Mg Supp.rect 10 MG RC DAILY PRN PRN For Constipation (Reported) For no BM after MOM Magnesium Hydroxide (Milk of Magnesia) 400 Mg/5 Ml Oral.susp 30 ML PO PRN For Constipation (Reported) Na Phos,M-B/Na Phos,Di-Ba (Fleet Enema) 133 Ml Enema 133 ML RC PRN For Constipation (Reported) For no BM after Dulcolax Suppository Ondansetron ODT (Ondansetron ODT) 4 Mg Tab.rapdis 4 MG PO Q4H PRN PRN For Nausea (Reported) Additional med instructions We will continue with your antibiotic management after discharge, we have arranged for you to return here to the hospital to receive IV Ertapenem daily until at least February 26. You will also be continued on your current dose of Linezolid as an oral pill. I have continued the Marinol which is a medication designed to help stimulate your appetite. Dr. Webber will be coordinating you laboratory follow for the antibiotics. Followup Plan Follow-up plan Follow up with your primary care provider Dr. Baird within 2 weeks. Follow up with Dr. Webber on February 26. Discharge Diet: Other (Try to take in as much healthy food as you can, this means lean protein such as chicken and fish, and fiber rich vegetables in order to avoid further constipation.) Discharge Activity: Limited until seen by PCP (Please see your primary care provider to coordinate any potential further physical therapy to maintain your strength) Patient Instructions We are discharging you to [facility], with home health nursing to help you manage your liver drain. We have also made arrangements for you receive IV antibiotics daily here at the hospital. Please inform your primary care provider if you have any further blood vomit or stool, or if you became weaker as in prior episodes when you needed transfusions. Follow-up Provider: Neville Webber MD Follow-up with PCP in: 2 weeks (February 26) Provider: Macy Baird MD Follow-up in: 2 weeks Time spent Time spend coordinating discharge and counseling patient > 35 minutes Attending Statement The patient was seen and examined together with Dr. Limon on 02/13/17 and I have added additional information to the note above. copies to: Macy Baird MD; Neville Webber MD, David E DO Feb 13, 2017 12:09 Nano Araujo DO Feb 13, 2017 13:31
[2017-02-13 12:11] VITALS: BP 119/65; PULSE 71; RESP 20; O2SAT 98
--- NOTE | 2017-02-13 13:55 | NUR ---
Social Work: Discharge D: Pt discussed in am rounds. Pt is medically stable for discharge at this time. Pt will be going back to [facility] where she will receive home health services through [facility] for RN care and complete IV ABX through [facility]. SHAREPOINT NET DEVELOPER received voicemail from Ezio Guzman with [facility] confirming that they can accept the patient and that they will be able to do 5 visits in a row to ensure safe teaching of pt's drain care. They state that if the patient has a Plurex drain they would not be able to provide the supplies necessary and supplies would need to be arranged through a third green party. has clarified through previous surgical reports that the pt does not have a Plurex drain and that she is with a "[employer] Drain." t/c to [facility]; [employer]AREPOINT NET DEVELOPER spoke with Olga to update her with the plan for discharge. Based on notes she does not believe the patient is with a Plurex drain. SHAREPOINT NET DEVELOPER updated her with info from MD on drain. This is not a problem for them to manage. They do not have the F2F and will need it before discharge. [facility] has F2F and will provide to [employer]. SHAREPOINT NET DEVELOPER met with pt at bedside to discuss discharge plan and assess for unmet needs. Pt confirms that she is going back to [facility] with Counts include 234 beds at the [facility] for care of her drains. Pt states that she feels confident learning how to manage the care of her drains and states "I've watched them do it for months." Pt states that her son and family will be transporting her to [facility] for IV ABX and that she is considering using [employer] for transportation if family is unable to take her. Pt has no concerns about her discharge and has been ambulating I during admission. EMR reviewed; no further discharge needs identified at this time. A: Pt who is I at baseline with drain in place. P: Pt to return to [facility] with Counts include 234 beds at the [facility] for RN care for teaching and assessment of drain care and IV ABX at [facility]. Pt's son will transport pt home and to [facility] for daily ABX. SOHAN Tenorio
--- NOTE | 2017-02-13 14:58 | NUR ---
Discharge Pt d/c'd with son and [id number] at 1457, w/c transport by RECEPTIONIST SCHEDULER to private vehicle. VSS. Denies pain. Discharged with PIV, OK by . New PIV placed this morning by IV therapy. All d/c teaching completed, pt denies questions.
== END 2017-02-13 14:56 | disposition home health service (06) | DRG 871 ==
LOC: EDBD 23:52 → SED 23:52 → EDUNIT# 23:52 → PCC 02-03 04:51 → OBSVTOIN 02-03 04:51 → MPC 02-04 17:14 → PCC 02-07 18:36 → CCU 02-07 18:40 → PCC 02-08 10:27
PROVIDERS: ADMIT Internal Medicine; ATTEND Internal Medicine
PROC: 30233N1 Transfusion of Nonautologous Red Blood Cells into Peripheral Vein, Percutaneous Approach (ICD-10-PCS; 2017-02-03)
PROC: 30233N1 Transfusion of Nonautologous Red Blood Cells into Peripheral Vein, Percutaneous Approach (ICD-10-PCS; 2017-02-06)
PROC: 30233N1 Transfusion of Nonautologous Red Blood Cells into Peripheral Vein, Percutaneous Approach (ICD-10-PCS; 2017-02-07)
PROC: 0DJ08ZZ Inspection of Upper Intestinal Tract, Via Natural or Artificial Opening Endoscopic (ICD-10-PCS; principal; 2017-02-07 20:45)
PROC: 30233N1 Transfusion of Nonautologous Red Blood Cells into Peripheral Vein, Percutaneous Approach (ICD-10-PCS; 2017-02-11)
DX: A41.81 Sepsis due to Enterococcus (principal); K75.0 Abscess of liver; E43 Unspecified severe protein-calorie malnutrition; I33.0 Acute and subacute infective endocarditis; Z68.1 Body mass index [BMI] 19.9 or less, adult; R64 Cachexia; D62 Acute posthemorrhagic anemia; T85.628A Displacement of other specified internal prosthetic devices, implants and grafts, initial encounter; I78.0 Hereditary hemorrhagic telangiectasia; Z16.21 Resistance to vancomycin; E03.9 Hypothyroidism, unspecified; Z86.718 Personal history of other venous thrombosis and embolism; K59.00 Constipation, unspecified; Z66 Do not resuscitate

== ENCOUNTER 2017-02-18 18:51 | Inpatient (IN) | payer MEDICARE ==
[~2017-02-18] VITALS: Ht 160 cm; Wt 37.4 kg
[~2017-02-18 18:51] MED LIST changes: +BISA10SU61 RC; -CEFD300C3 PO; +DRON2.5C10 PO; +LINE600T7 PO; +MAGN400O4 PO; +NA P133E23 RC; -NORE1TAB92 PO
[2017-02-18 19:01] VITALS: BP 109/55; PULSE 98; RESP 16; O2SAT 99
--- NOTE | 2017-02-18 19:08 | ED.REPORT ---
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 Associated symptoms include fatigue, weakness, myalgias and localized pain to her drain site in the RLQ. Patient was last admitted to [facility] from 02/03/17 to 02/13/17 during which time a drain was placed at the site of the liver abscess. The drained material was VRE and the patient was treated with IV Linezolid and Ertapenem which she continued to take on an outpatient basis. Patient has been taking her medications as directed. Her condition has been closely monitored by Dr. Webber. Patient is not currently anticoagulated due to her bleeding risk. She denies any melanotic stool, chest pain, SOB, numbness/tingling, nausea or vomiting at this time. Nursing Notes Stated Complaint: FEVER Chief Complaint: General Complaint Nursing Notes Reviewed: Yes Allergies: Coded Allergies: No Known Allergies (Verified , 02/18/17) Scheduled Dronabinol (Dronabinol) 2.5 Mg Capsule 5 MG PO TIDAC Linezolid (Linezolid) 600 Mg Tablet 600 MG PO BID Pantoprazole DR (Pantoprazole DR) 20 Mg Tablet.dr 20 MG PO BID Polyethylene Glycol 3350 (Miralax) 17 Gm Powd.pack 17 GM PO DAILY Thyroid,Pork (Racine Thyroid) 60 Mg Tablet 60 MG PO DAILY Scheduled PRN Bisacodyl (Dulcolax Rectal) 10 Mg Supp.rect 10 MG RC DAILY PRN PRN For Constipation For no BM after MOM Ondansetron ODT (Ondansetron ODT) 4 Mg Tab.rapdis 4 MG PO Q4H PRN PRN For Nausea General Time Seen by MD: 19:00 Chief Complaint Fever Hx Obtained From: Patient Arrived By: Ambulance Sudden in Onset?: No Onset Occurred: 9 - 12 hours ago Symptom Duration: Since onset Location: : Abdomen Quality: Same as prior, Painful Radiation: : Does not radiate Severity: Current: Moderate Severity: Maximum: Moderate Associated with: Reports: Abdominal pain, Fever, Weakness, Denies: Chest pain, Nausea, Shortness of breath, Vomiting Pertinent Negative: Pt denies other symptoms Recent Healthcare: Recent doctor visit, Recent hospitalization Past Medical History Past Medical History Notes: GI: Dr. Sam Oncologist: Dr. Bynum Past Medical History 1. Ulcerated gastroesophageal junction. 2. Irregular gastroesophageal junction. 3. Gastric and duodenal hereditary hemorrhagic telangiectasia. 4. Hypothyroidism 5. Malnutrition 6. 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 and resulting in constipation 7. Upper GI bleed transferred to [facility] for cryotherapy 8. 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 Liver abscess 10. Hereditary hemorrhagic telangiectasia 11. Possible endocarditis 12. Bacteremia 13. L upper extremity DVT at Picc line site Past Surgical History One lobe thyroidectomy Upper endoscopy Laparoscopic closure of anterior gastric perforation with omental patch and washout (10/31/16) Family History Noncontributory Smoking History Never Smoker Social History Other Social History: Good social support, From out of town Ambulatory Status Independent Review of Systems Full Review of Systems Constitutional: Reports: Fatigue, Fever, Weakness - generalized Respiratory: Denies: Shortness of breath Cardiovascular: Denies: Chest pain GI: Reports: Abdominal pain (at drain site in RLQ), Denies: Melena, Nausea, Vomiting Musculoskeletal: Reports: Myalgia Neurologic: Reports: Weakness Complete sys rev & neg: except as marked. Physical Exam Vital Signs Vital Signs Date Time Temp Pulse Resp B/P Pulse Ox O2 Delivery O2 Flow Rate FiO2 02/18/17 20:51 39.5 100 109/54 95 Room Air 02/18/17 19:01 38.9 98 16 109/55 99 Room Air Initial VS: Reviewed Neck: Supple, Non-tender, Full range of motion Psychiatric: Mood/affect normal, Behavior normal, Normal thought content General/Constitutional: Awake, No acute distress Appearance / Presentation: Positive: Cachectic, Frail, Ill appearing/not toxic , Pale GENERAL: Thin Head / Eyes: Atraumatic, Normocephalic, PERRL Conjunctiva / Sclera: Positive: Pallor (Pale conjunctiva) Respiratory / Chest: Atraumatic, Breath sounds NL, Breath sounds = bilat, No respiratory distress Cardiovascular: Heart rate NL, Regular rhythm, Heart sounds NL, No gallop, No murmurs, No rubs Abdomen: Atraumatic, Soft, Non-tender ABDOMEN: Drain in place in the R quadrant Upper Extremities Upper Extremity / MS: Atraumatic, Neurologic intact, Vascular intact UPPER EXTREMITIES: IV in the right forearm Lower Extremity / Pelvis / MS: Atraumatic, Inspection NL, Neurologic intact, Vascular intact Skin: Atraumatic, Warm, Dry Pale Neurologic: Oriented X3, Speech NL, No motor deficits, No sensory deficits Interpretation & Diagnostics Lab Results Interpretation Result Diagram: 02/18/17205402/18/172054 Test 02/18/17 20:55 02/18/17 21:46 White Blood Count 8.1th/mm3 (3.8-10.1) Red Blood Count 1.97mil/mm3 (3.90-5.20) Hemoglobin 6.0g/dL (12.0-15.6) Hematocrit 19.3% (35.0-46.0) Mean Corpuscular Volume 98.0fL (81-100) Mean Corpuscular Hemoglobin 30.5pg (27.0-35.0) Mean Corpuscular Hemoglobin Concent 31.1% (32.0-37.0) Red Cell Distribution Width 16.0% (12.3-15.4) Platelet Count 526bil/L (150-400) Neutrophils (%) (Auto) 79.4% (40-74) Lymphocytes (%) (Auto) 8.9% (14-46) Monocytes (%) (Auto) 11.1% (4-12) Eosinophils (%) (Auto) 0.2% (0-5) Basophils (%) (Auto) 0.2% (0-3) Band Neutrophils % 0% (1-5) Sodium Level 134mEq/L (134-144) Potassium Level 4.2mEq/L (3.5-5.2) Chloride Level 101mEq/L (97-108) Carbon Dioxide Level 23mmol/L (18-29) Blood Urea Nitrogen 18mg/dL (8-27) Creatinine 0.33mg/dL (0.57-1.00) Estimat Glomerular Filtration Rate 273mL/min (>59) Glucose Level 104mg/dL (60-99) Lactic Acid Level 1.1mmol/L (0.4-2.0) Calcium Level 8.5mg/dL (8.5-10.1) Magnesium Level 1.9mg/dL (1.6-2.6) Total Bilirubin 0.4mg/dL (0.0-1.2) Aspartate Amino Transf (AST/SGOT) 52U/L (0-50) Alanine Aminotransferase (ALT/SGPT) 35U/L (0-32) Alkaline Phosphatase 428U/L (25-165) Pro-B-Type Natriuretic Peptide 211.5pg/mL (0-738) Total Protein 5.3g/dL (6.4-8.4) Albumin 2.7g/dL (3.4-5.0) Procalcitonin 0.11ng/mL (0.00-0.08) Urine Color Yellow (YELLOW) Urine Appearance Cloudy (CLEAR,HAZY) Urine pH 8.0 (5.0-8.0) Urine Specific [place] 1.015 (1.003-1.035) Urine Protein Negativemg/dL (NEG,TRACE) Urine Glucose (UA) Negativemg/dL (NEGATIVE) Urine Ketones Negativemg/dL (NEGATIVE) Urine Occult Blood Negative (NEGATIVE) Urine Nitrite Negative (NEGATIVE) Urine Bilirubin Negative (NEGATIVE) Urine Urobilinogen Normalmg/dL (NORMAL) Urine Leukocyte Esterase Negative (NEGATIVE) Urine RBC 0-2/hpf (0-2) Urine WBC 0-5/hpf (0-5) Urine Epithelial Cells Few/hpf (NONE-MOD) Urine Crystals Amorphous phosphates Urine Bacteria None/hpf (NONE-FEW) Urine Hyaline Casts None/lpf (NONE) Urine Granular Casts None seen (NONE SEEN) Urine Waxy Casts None seen (NONE SEEN) Urine Red Blood Cell Casts None seen (NONE SEEN) Urine White Blood Cell Casts None seen (NONE SEEN) Urine Mucus None seen (None Seen) Urine Trichomonas None seen (NONE SEEN) Urine Yeast None (NONE SEEN) Urine Culture Reflexed Not indicated ECG Interpretation ECG Interpretation: Sinus Tachycardia Rate 102 Normal axis Normal intervals No T wave inversions When compared to previous 02/17/17 - Now tachycardic Time: 20:38 Interpreted by: ED physician X-Ray Chest Interpretation Chest Xray Interpretation: IMPRESSION: Right upper quadrant surgical drain. Otherwise no significant interval change. Enlarged cardiomediastinal silhouette. Dictated by: Theo Trinidad M.D. 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 Associated symptoms include fatigue, weakness, myalgias and localized pain to her drain site in the RLQ. Patient was last admitted to [facility] from 02/03/17 to 02/13/17 during which time a drain was placed at the site of the liver abscess. The drained material was VRE and the patient was treated with IV Linezolid and Ertapenem which she continued to take on an outpatient basis. Patient has been taking her medications as directed. Her condition has been closely monitored by Dr. Webber. Patient is not currently anticoagulated due to her bleeding risk. She denies any melanotic stool, chest pain, SOB, numbness/tingling, nausea or vomiting at this time. Here in the emergency department the patient is febrile to 38.9 and borderline hypotensive though this is her regular blood pressure. She is hemodynamically stable. She was treated with IV fluids as well as Tylenol for her fever subsequently resolved. LABS No leukocytosis Hct significantly lower from baseline at 19.3 Mildly elevated transaminases Procalcitonin mildly elevated at 0.11 Lactic acid within normal limits EKG Sinus Tachycardia Rate 102 Normal axis Normal intervals No T wave inversions When compared to previous 02/17/17 - Now tachycardic Chest X-ray IMPRESSION: Right upper quadrant surgical drain. Otherwise no significant interval change. Enlarged cardiomediastinal silhouette. Given patient's severe anemia with markedly decreased from baseline she was typed/screened and 2 units of PRBCs were transfused. Patient was discussed in depth with Dr. Webber who is quite familiar with the patient. She was started on IV Meropenem and Linezolid. She was admitted to the internal medicine service and consultation with infectious disease. 2 sets of blood cultures were obtained prior to initiating antibiotics. Discussed further imaging with Dr. Webber however it was felt best to defer this to the admitting team. Patient was transferred in stable condition. Time of Eval: 21:22 Re-Evaluation/Progress Note: Pt is rechecked. She is informed of her results and the plan to admit to the hospital. All questions are addressed. She understands and agrees with the treatment plan. Consultation : Referral / Consult Name: Je Garcia MD Consulted With: Hospitalist Call Returned at: 21:20 Linux Support Engineer: Will see patient, Agrees with eval, Agrees with plan, Accepts admit Counseled Regarding: Diagnosis, Lab results, Need for admission Discharge & Departure Primary Impression: Sepsis Sepsis type: sepsis due to unspecified organism Qualified Code: A41.9 - Sepsis, unspecified organism Additional Impressions: Liver abscess Hereditary hemorrhagic telangiectasia Severe anemia Anemia due to blood loss, acute Fever Fever type: unspecified Qualified Code: R50.9 - Fever, unspecified Disposition: ADMITTED TO HOSPITAL Discharge Condition All VS Reviewed: Yes Condition: Stable Referrals: Macy Baird MD (PCP) Crit Care Except Billable Proc Time Spent: 105-134 minutes Services Performed: Patient management by me, Time spent at bedside, Reviewing test results, Reviewing imaging, Discussing patient care, Documentation in record, Time with fam/surrogate Scribe Attestation Portions of this note were transcribed by Laila Alejandro. I, Dr. Mclaughlin personally performed the history, physical exam and medical decision-making; I reviewed and confirmed the accuracy of the information in the transcribed note. Signed by: Kush Street, 02/18/17 [id number]. copies to: Macy Baird MD, Beck O MD Feb 18, 2017 19:08 LAILA ALEJANDRO Feb 18, 2017 21:25
[2017-02-18] MEDS ORDERED: 0.9% Sodium Chloride 1,000 ML IV ONE (20:30)
[2017-02-18 20:51] VITALS: BP 109/54; PULSE 100; O2SAT 95
[2017-02-18] MEDS ORDERED: Ondansetron 2 mg/mL 2 mL Inj IVPUSH PRN (21:00)
[2017-02-18] MEDS ORDERED: Alum-Mag Hydrox-Simeth 30 mL Suspension PO PRN ×2 (21:00→21:50)
[2017-02-18 21:17] LABS: BASOPHILS % (AUTO) 0.2 % (0-3); EOSINOPHILS % (AUTO) 0.2 % (0-5); MONOCYTES % (AUTO) 11.1 % (4-12); Mean Corpuscular Hemoglobin 30.5 pg (27.0-35.0); NEUTROPHILS % (AUTO) 79.4 % (40-74); Platelet Count 526 bil/L (150-400)
[2017-02-18 21:39] LABS: Magnesium 1.9 mg/dL (1.6-2.6)
[2017-02-18] MEDS ORDERED: Polyethylene Glycol (PEG) 17 Gm Powder PO PRN (21:50)
--- NOTE | 2017-02-18 21:58 | DRSVH ---
PROCEDURE: X-RAY CHEST ONE VIEW, PORTABLE ([id number]) INDICATIONS: shortness of breath TECHNIQUE: One view of the chest was acquired. COMPARISON: None. FINDINGS: Surgical changes and devices: Right neck base surgical clips. Right upper quadrant surgical drain. Lungs and pleura: Hyperinflation. No focal acute pulmonary opacities or definite pleural effusions. Mediastinum: Enlargement of the cardiomediastinal silhouette. Bones and chest wall: No suspicious bony lesions. Overlying soft tissues appear unremarkable. IMPRESSION: Right upper quadrant surgical drain. Otherwise no significant interval change. Enlarge d cardiomediastinal silhouette. Dictated by: Theo Trinidad M.D. on 02/18/2017 at 21:55 Approved by: Theo Trinidad M.D. on 02/18/2017 at 21:56
--- NOTE | 2017-02-18 22:33 | PCM.HPMED ---
Subjective Date of Service Feb 18, 2017 Primary Provider: Admitting Physician: Je Garcia MD Primary Care Physician: Macy Baird MD Attending Physician: Je Garcia MD Admit Status: From the Emergency Department Chief Complaint: Abdominal pain and fever History of Present Illness: 81-year-old with past medical history remarkable for recurrent GI bleeds secondary to hereditary hemorrhagic telangiectasia as well as recent liver abscess on daily IV antibiotic infusions presents with new onset fever. The patient states that she has been taking her antibiotics as directed for her liver abscess however after today's infusion of ertapenem she began to feel feverish and generally poor overall. The patient laid down and took a nap however when she woke up she did not feel any better and therefore she came into the ED. The patient continues to have abdominal pain which is approximately baseline and not worsening. The patient states that her liver abscess drain has continued to put out some fluid however the fluid is thinner and darker green in color currently compared to the thick brownish red color produced when the drain was initially placed. The patient states that she requires regular blood transfusions for her GI bleeds and her general overall since now as she is anemic. The patient denies headaches, changes in vision, cough, chest pain, nausea or vomiting, dysuria, rashes or unusual bruising or bleeding. Review of Systems: Principle review of systems is obtained and all are negative except for what is included in the history of present illness. Allergies Coded Allergies: No Known Allergies (Verified , 02/18/17) Home Medications [place] Thyroid Pantoprazole 20 mg 1 tablet by oral route every 2 days Ondansetron 40 mg disintegrating tablet MiraLAX Dulcolax rectal suppository Fleets enema Linezolid 600 mg by mouth twice a day Ertapenem 1 g daily IV infusions [facility] Hereditary hemorrhagic telangiectasias with gastric and duodenal telangiectasias. Multiple GI bleeds requiring biweekly transfusions in the last several years. Status post gastric perforation 10/25, requiring closure of the perforation. Hepatic abscess with drain in place. Acquired Hypothyroidism. Uterine fibroid mass. Malnutrition Acute VRE bacteremia with questionable endocarditis History of acute left upper extremity DVT at site of PICC line during last hospitalization Iron deficiency anemia Surgical History Partial thyroidectomy Tonsillectomy Upper endoscopy with argon ablation of gastric AVMs at [facility] in September 2016 Laparoscopic closure of anterior gastric perforation with omental patch and washout (2/23/17) Bilateral cataract removal Family History Patient is adopted and does not know her family history The patient's son also has hereditary hemorrhagic telangiectasia and suffered from a brain abscess last year requiring hospitalization Granddaughter likely also has HHT due to recurrent nosebleeds however this is undiagnosed at this time Social History Occupation: retired Hx Alcohol Use: Yes ("socially, very rarely") Hx Substance Use: No Hx Tobacco Use: No Smoking Status: Never Smoker Exam Vital Signs Vital Sign - Last Date Time Temp Pulse Resp B/P Pulse Ox O2 Delivery O2 Flow Rate FiO2 02/18/17 20:51 39.5 100 109/54 95 Room Air 02/18/17 19:01 16 Exam General: Alert and oriented 3, cachectic elderly female, lying in bed in no acute distress. Eyes: Pupils equal round reactive to light, extraocular motion intact, anicteric sclera, noninjected conjunctiva HENT: Normocephalic atraumatic, moist mucous membranes without central cyanosis , no cobblestoning mucosa Neck: Supple, trachea midline, no notable JVD Heart: Regular rate and rhythm, 2/6 systolic heart murmur noted at right upper sternal border Lungs: Clear to auscultation bilaterally without wheezing rales or rhonchi noted Abdomen: Soft, nontender to palpation, nondistended, bowel sounds active, no rebound, no guarding, Liver abscess drain in place with bandage overlaying and no erythema., Extremities: Pulses intact at radial and dorsalis pedis bilaterally, No clubbing , cyanosis, edema, or lymphadenopathy appreciated Neurological: Cranial nerves grossly intact. Skin: Warm and dry : No Arellano in place Psych: Normal mood and Lab and Diagnostics Result Diagram: 02/18/17205402/18/172054 X-Rays, CTs and MRIs X-RAY CHEST ONE VIEW, PORTABLE IMPRESSION: Right upper quadrant surgical drain. Otherwise no significant interval change. Enlarged cardiomediastinal silhouette. Dictated by: Theo Trinidad M.D. on 02/18/2017 at 21:55 Approved by: Theo Trinidad M.D. on 02/18/2017 at 21:56 Assessment & Plan 81-year-old with past medical history remarkable for recurrent GI bleeds secondary to hereditary hemorrhagic telangiectasia as well as recent liver abscess and blood cultures positive for VRE on daily IV antibiotic infusions presents with new onset fever. # New onset fevers with recent history of VRE bacteremia with questionable endocarditis - Followed as an outpatient by infectious disease, the prior source of the infection was likely thought due to endocarditis with echo on 02/05 with noted small filamentous strand at the tips of aortic leaflets. - SIRS positive with tachycardia of 98 and fever of 38.9 Celsius at admission - Tachycardia may be explained due to new acute blood loss anemia, and ertapenem is also known to cause drug fevers - Patient denies worsening abdominal pain at site of liver abscess or significant notable change in liver abscess drain output - blood cultures ordered in ED - Continue outpatient antibiotic Linezolid 600 mg twice a day and Ertapenem 1 g daily - Infectious disease consulted from the ED # Chronic liver abscess, present on admission, ongoing -Liver abscess drain in place -Liver abscess culture previously grew Escherichia coli and Klebsiella. -ID Consult and Abx as noted above -Patient will likely require indefinite antibiotic therapy as she is unable to tolerate surgical intervention -Continuing ertapenem and linezolid described above -Pain control with Dilaudid IV per outpatient schedule from previous hospital records # Acute blood loss anemia, present on admission, stable -Secondary to Hereditary hemorrhagic telangiectasia and likely upper GI bleeding due to AVMs - 5 units PRBCs reserve by EGD - 2U PRBCs transfused overnight -Continuing to monitor H/H -We will attempt to reduce number of blood draws. 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 Bynum as an outpatient. -Transfuse below Hg 7. Severe protein calorie malnutrition, present on admission, active -Continue to encourage oral intake. -Nutritional consult placed -Marinol continued from prior admission to encourage PO intake -BMI 16.6 Chronic constipation, present admission, ongoing -Patient states that her stools are now soft likely due to MiraLAX Hypothyroidism, present on admission, chronic -s/p partial thyroidectomy. -We will continue outpatient [place] Thyroid DVT prophylaxis: Anticoagulation is contraindicated given bleeding risk SCDs only GI prophylaxis: Pantoprazole 20 mg twice a day CODE STATUS: DNR/DNI Patient is admitted to inpatient status with likely length of stay greater than two midnights given her presenting symptoms likely diagnosis, possible complications and required treatments. Pain Evaluation: Adequate Pain Control GI Prophylaxis: Proton Pump Inhibitor VTE Prophylaxis Indicated: Contraindicated VTE Prophylaxis: SCDs VTE Mechanical Devices: Intermittant Pneumatic CD Resuscitation Status: DNR/DNI:Do Not Resuscitate/Intubate Attending Statement The patient was seen and examined together with Dr. Shoemaker on 02/18 and I agree with the history, exam and plan as outlined in the note above. Garrett Wood DO Feb 18, 2017 22:33 Je Garcia MD Feb 19, 2017 02:51
[2017-02-18 22:55] VITALS: BP 101/43; PULSE 94; RESP 18; O2SAT 96
[2017-02-18 22:59] VITALS: BP 101/43; PULSE 77; PULSE 96; RESP 20; O2SAT 96
[2017-02-18 23:11] LABS: COLOR,URINE YELLOW (YELLOW)
[2017-02-18 23:12] LABS: APPEARANCE,URINE CLOUDY (CLEAR,HAZY); OCCULT BLOOD,URINE NEGATIVE (NEGATIVE); UROBILINOGEN,URINE NORMAL (NORMAL)
[2017-02-19] VITALS (12 sets, daily range): BP systolic 87–114; BP diastolic 37–57; PULSE 72–89; RESP 14–24; O2SAT 97–100
[2017-02-19] MEDS ORDERED: Meropenem Inj 1,000 MG in 0.9% Sodium Chloride 100 ML IV SCH (00:30)
[2017-02-19] MEDS ORDERED: HYDROMORPHONE IV PRN (00:40)
[2017-02-19] MEDS ORDERED: SODIUM CHLORIDE 0.9% IV PRN (00:40)
[2017-02-19] MEDS ORDERED: 0.9% Sodium Chloride 250 ML IV ONE (01:00)
[2017-02-19] MEDS: HYDROmorphone 0.5 mg/0.5 mL iSecure Syringe IVPUSH PRN ×2 (01:58→21:04)
--- NOTE | 2017-02-19 05:20 | NUR ---
Admit Pt arrived to PCC room 2001 at approx. 2300 via bed from ED; report received from ED RN. All belongings transferred with pt. Temperature of 37.5C upon arrival and afebrile throughout rest of shift. Admit documentation and med rec completed via pt interview. 2 units PRBCs infused this shift; no adverse reactions noted. Pt AOx3, SBA to BSC, reports intermittent dull pain to liver - Dilaudid 0.25mg administered x1 with relief upon reassessment and no further complaints of pain this shift. VSS, mild hypotension; paged and 250ml NS bolus administered - pt BP improved to low 100s systolic. Tele SR 70s-80s. UA sent. Drain to RUQ intact, minimal green output.
[2017-02-19] MEDS: Pantoprazole 20 mg ER24 Tablet PO SCH ×2 (07:51→20:54)
[2017-02-19] MEDS: Ertapenem Inj 1,000 MG in 0.9% Sodium Chloride 50 ML IV SCH (08:06)
[2017-02-19 08:16] LABS: BASOPHILS % (AUTO) 0.7 % (0-3); EOSINOPHILS % (AUTO) 0.9 % (0-5); MONOCYTES % (AUTO) 14.2 % (4-12); Mean Corpuscular Hemoglobin 29.5 pg (27.0-35.0); Mean Corpuscular Volume 93.9 fL (81-100); Platelet Count 444 bil/L (150-400)
--- NOTE | 2017-02-19 10:45 | NUR ---
Palliative Care Palliative Care received verbal order from Dr To 02/19/17 to assist with goals of care. Patient was re-admitted 02/18/17. She has had frequent and lengthy admits recently. She resides at [place]. Ernesto Ford (son) [phone] Lina Ayala (friend) [phone] Palliative Care to follow. Hilary Ash
--- NOTE | 2017-02-19 10:49 | NUR ---
NUTRITION ASSESSMENT: Assess: Pt is an 81yo F admitted for liver abscess and sepsis. Pt recently discharged ~1 week ago. Pt reported this am that she feels hungry and she was able to eat 100% of her breakfast. Her wt has dropped 3kg since discharge. Palliative care to become involved. PMHx: Ulcerated gastroesophageal junction, Irregular gastroesophageal junction, Gastric and duodenal hereditary hemorrhagic telangiectasia, Hypothyroid, malnutrition, uterine fibroid. LABS: Reviewed. Weld Inspector .33, Glu 104, AST 52, ALT 35, Alk phos 428, alb 2.7 MEDICATIONS: Reviewed. Marinol DIET: General, PO 100% x1 meal GI: 0 BM yet SKIN: Cosmo 20; pale, frail woman sitting up in bed. Visible muscle/fat loss in face and arms. ANTHROPOMETRICS: Current wt: 39kg, BMI 15.2kg/m2. Wt /: 42.9kg, BMI 16kg/m2 Wt: (12/17) 41.5 kg (standing scale) Past Admit Wt: 38.5 kg (Bed scale) IBW: 52.3 kg. UBW (November): 54 kg. ESTIMATED NEEDS: Malnutrition Calories: 4217-2241 (30-35 kcal/kg BW) Protein: 65-80 g/day (1.2-1.5 g/kg IBW) NUTRITION DIAGNOSIS: 1) Severe pro/kcal malnutrition related to chronic illness as evidenced by variable wt, visible loss of LBM/ fat, BMI of 15.2kg/m2 INTERVENTION: 1) Pt likes Ensure CL so will send on all trays (Ensure CL TID provides 600kcal and 21g pro). Pt agreed to this. She reported that Ensure CL goes down easier than other supplements. She does not like Ensure or Magic Cups MONITOR/EVALUATE: PO intake, labs, weight, nutrition status, overall POC. Follow per high nutrition risk guidelines. Addendum: 02/20/17 at [address] Calorie Count ordered per MD. Folder placed outside room, RN is aware. Will continue to monitor per high nutrition risk guidelines
--- NOTE | 2017-02-19 10:59 | PROG NOTE ---
[address] [address] PROGRESS NOTE PATIENT: STEWART UREÑA : 1935 MR#: [id number] ADMIT: 02/18/2017 JOB ID: [id number] DATE: 02/19/2017 I was asked to see this patient again in follow up by Dr. Mclaughlin. REASON FOR FOLLOWUP: Liver abscess with VRE bacteremia and new high fever. INTERVAL HISTORY: Recall this is a patient who was discharged just about six days ago. At the time of discharge we were treating her for a large liver abscess with indwelling drain, which has been present for over 60 days. Note that the drain has been changed a couple times, but a drain has been present in her liver abscess continuously for about 65 days. She was also discharged with once a day outpatient ertapenem to be continued somewhat indefinitely as we follow her imaging and lab studies in hopes of resolving this very complex liver abscess. During her last admission she was found to have a high-grade VRE bacteremia, and we were unable to do a transesophageal echo because of his esophageal disease and her bleeding diathesis. A transthoracic did not show any clear-cut evidence of endocarditis, but our plan was to continue with VRE therapy using oral ertapenem until at least March 07. We were concerned of course about of course possible thrombocytopenia and other issues and had ordered close followup. I would also plan to see her in clinic on February 26 and at that time, consider switching her ertapenem to oral Augmentin. Dr. Sam was also involved in her discharge discussions when she went home about six days ago and we are going to tentatively continue a little bit longer with the liver abscess and then use serial imaging to try and decide when that liver drain could be pulled. The patient reports that over the last five days or so she has been doing quite well at the [facility] where she resides with her . She has been free of fevers, chills, or sweats and has not had any significant abdominal pain. She has been flushing her own right upper quadrant drain and coming into the CTC here at [facility] every day to get a dose of ertapenem without any problems. Yesterday she reports that about two or so in the afternoon she flushed her drain with 20 cc of saline and then took a nap. Following that, she woke up, felt weak and tired, and was febrile to 103 degrees. She was then transported to the ED and I was contacted and recommended readmission given this high fever in this very immunosuppressed woman. This morning she has been continued on the ertapenem and linezolid without any real change in her regimen and reports she feels almost back to normal. She has no fevers, no chills. She reports no sinus pressure, no sores in the mouth. No significant cough or chest pain. She notes she does not have much in the way of abdominal pain. Her overall sense of malaise that was present yesterday seems already gone. 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 She additionally received two more units last night. She also is status post a gastric perforation October 30 which required surgery and undoubtedly was the cause of the large liver abscess she has had since December. Other little issues have included a DVT in her left arm due to a PICC line and we have been using peripheral IVs exclusively. PHYSICAL EXAMINATION: This morning reveals an afebrile, comfortable woman who looks about the same as when I last saw her a week ago prior to discharge. She is afebrile and has been since her readmission last night. Temperature 36.8, pulse 85, respiratory rate 16, blood pressure 102/50, saturating 100% on room air. Mental status is clear. Sinuses nontender. Oral cavity no new changes. Lungs relatively clear. Cardiac tones without murmur today. Abdomen slightly distended with a drain in the right upper quadrant. Overall, her belly appears no different than when she was discharged. No skin rash. Her left upper extremity is now normal size. The DVT apparently clinically at least resolved. The right upper extremity where there has been peripheral IVs currently has two peripheral IVs, these look benign and there is no evidence of thrombophlebitis from prior peripheral IVs. No other skin rash noted. DIAGNOSTIC STUDIES: Labs include white blood count 4600, platelet count 444,000, creatinine 0.33. Urinalysis without white cells. Micro includes blood cultures drawn last night in the ED these are negative so far and a chest x-ray done last night, which is otherwise basically negative. IMPRESSION: It is unclear to me at this point why the patient developed this high fever out of the blue yesterday afternoon, but I strongly suspect it is due to the flushing of the drain in her liver. At least once during her last hospital stay there was a very similar episode where the patient developed some rigors and sweats after her drain was flushed, and I suspect the vigorous flushing of the right upper quadrant drain is precipitated perhaps a transient bacteremia. There are many unanswered questions with this case. One important question is how long the drain should remain in place, and we have discussed this in detail with Dr. Sam on prior admissions. I would reconsult GI at this point and ask them specifically how much longer this drain should remain in place. It is probably helpful to have it in place in terms of the size of her abscess, but it is not without risk, and I think that flushing of the drain actually may have precipitated this admission. RECOMMENDATIONS: 1. Will continue with oral linezolid 600 b.i.d. through at least March 07 with close followup on CBC and platelets. 2. Will continue with ertapenem IV once a day for the time being as treatment for the liver abscess. 3. I would ask GI to weigh in on the duration of this drain. 4. We may need additional imaging including CT scan of the abdomen and pelvis without contrast, but will defer that to the GI consultants. Thank you very much for reinvolving us in this interesting case. SHY
--- NOTE | 2017-02-19 15:03 | PCM.PNMED ---
Subjective Date of Service Feb 19, 2017 Subjective Patient appears much improved compared to admission report, fever has resolved and she reports that she feels much better following transfusion. She denies chest pain, SOB, abdominal pain beyond baseline. Her only current concern is discharge from her drain site. No significant overnight events. Comprehensive ROS negative except as listed above. Exam Vital Signs Vital Sign - Last Date Time Temp Pulse Resp B/P Pulse Ox O2 Delivery O2 Flow Rate FiO2 02/19/17 13:13 36.7 85 16 101/57 97 Room Air Intake and Output 02/18/17 02/18/17 02/19/17 Cumulative From/Thru 15:00 23:00 07:00 02/18/17 19:01 - 02/19/17 06:44 Intake Total 1000 ml 830 ml 1830 ml Output Total 700 ml 700 ml Balance 1000 ml 130 ml 1130 ml Intake Oral 100 ml 100 ml IV Total 1000 ml 180 ml 1180 ml Packed Cells 550 ml 550 ml Output Urine Total 700 ml 700 ml Exam Gen: A/O x3 pleasant cooperative elderly cachectic woman in NAD Neck: Supple, non tender, no JVD, Full ROM HEENT: PERRL, EOMI, no scleral icterus, no conjunctival pallor, significant temporal wasting CV: RRR no murmurs rubs or gallops Resp: Lungs CTA BL, no wheezing rales or rhonchi Abd: Soft, mildly tender around insertion site of drain which is draining brown brackish fluid, some serous drainage around the drain insertion site, no organomegaly, no rebound or guarding Extr: No clubbing cyanosis or edema Neuro: CN 2-12 grossly intact, no focal neurologic deficit Psych: Pleasant and appropriate mood and affect. IVs and Medications Medications Reviewed: Medications were reviewed in detail Lab and Diagnostics 50 ml NS delivered with IV medications Result Diagram: 02/19/17 0753 02/18/172054 Microbiology Blood culture pending X-Rays, CTs and MRIs X-RAY CHEST ONE VIEW, PORTABLE IMPRESSION: Right upper quadrant surgical drain. Otherwise no significant interval change. Enlarged cardiomediastinal silhouette. Dictated by: Theo Trinidad M.D. on 02/18/2017 at 21:55 Approved by: Theo Trinidad M.D. on 02/18/2017 at 21:56 Assessment & Plan 81-year-old with past medical history remarkable for recurrent GI bleeds secondary to hereditary hemorrhagic telangiectasia as well as recent liver abscess and blood cultures positive for VRE on daily IV antibiotic infusions presents with new onset fever. Per Dr. Webber patient has in the past manifested fevers shortly after drain flushing which subsequently resolve spontaneously, concern that this the flushing process washes purulent debris back into the abdominal cavity manifesting a transient bacteremia. CT abdomen/ pelvis ordered with GI consultation to evaluate for continued appropriateness of liver drain. 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 Resolved - Followed as an outpatient by infectious disease, the prior source of the infection was likely thought due to endocarditis with echo on 02/05 with noted small filamentous strand at the tips of aortic leaflets. - SIRS positive with tachycardia of 98 and fever of 38.9 Celsius at admission - Tachycardia may be explained due to new acute blood loss anemia, and ertapenem is also known to cause drug fevers - Patient denies worsening abdominal pain at site of liver abscess or significant notable change in liver abscess drain output - blood cultures ordered in ED - Continue outpatient antibiotic Linezolid 600 mg twice a day and Ertapenem 1 g daily - Infectious disease consulted from the ED - Per ID evaluation this likely represent transient bacteremia from liver drain flushing procedure Chronic liver abscess, present on admission, ongoing -Liver abscess drain in place -Liver abscess culture previously grew Escherichia coli and Klebsiella. -ID Consult and Abx as noted above -Patient will likely require indefinite antibiotic therapy as she is unable to tolerate surgical intervention -Continuing ertapenem and linezolid described above -Pain control with Dilaudid IV per outpatient schedule from previous hospital records -Will repeat CT abd/pelvis to ascertain status of abscess and position of drain -Drain entry site is leaking a small amount of serous fluid. Acute blood loss anemia, present on admission, stable -Secondary to Hereditary hemorrhagic telangiectasia and likely upper GI bleeding due to AVMs - 5 units PRBCs reserve by EGD - 2U PRBCs transfused -Continuing to monitor H/H -We will attempt to reduce number of blood draws. 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 Bynum as an outpatient. -Transfuse below Hg 7. Severe protein calorie malnutrition, present on admission, active -Continue to encourage oral intake. -Nutritional consult placed -Marinol continued from prior admission to encourage PO intake -BMI 16.6 Chronic constipation, present admission, ongoing -Patient states that her stools are now soft likely due to MiraLAX Hypothyroidism, present on admission, chronic -s/p partial thyroidectomy. -We will continue outpatient [facility] Thyroid Disposition: Patient should be able to DC back to [facility] tomorrow pending continued resolution of fever and evaluation by GI. Pain Evaluation: Adequate Pain Control GI Prophylaxis: Proton Pump Inhibitor VTE Prophylaxis: SCDs VTE Mechanical Devices: Intermittant Pneumatic CD Resuscitation Status: DNR/DNI:Do Not Resuscitate/Intubate Attending Statement The patient was seen and examined together with Dr. Limon on 02/19/2017 and I agree with the history, exam and plan as outlined in the note above. . Bj Limon DO Feb 19, 2017 15:03 Alhaji To MD Feb 19, 2017 18:30
--- NOTE | 2017-02-19 16:35 | DRSVH ---
PROCEDURE: CT ABDOMEN AND PELVIS WITH CONTRAST ([id number]) INDICATIONS: fu liver abscess and drain placement TECHNIQUE: After the administration of intravenous contrast, 5 mm thick sections acquired from the diaphragm to the symphysis. 5 mm coronal and sagittal reformats were acquired. For radiation dose reduction, the following was used: automated exposure control, adjustment of mA and/or kV according to patient siz e. COMPARISON: [facility], CT, CT ABD W CON, 02/11/2017, 13:25. [facility], CT, CT ABD PELVIS W CON, 01/12/2017, 10:00. [facility], CT, CT ABD PELVIS W CON, 12/23/2016, 15:07. [facility], CT, CT ABD PELVIS W CON, 12/17/2016, 3:11. FINDINGS: Image quality: Excellent. ABDOMEN: Lung bases: Decreased, small bilateral pleural effusions. Dependent bilateral lower lobe atelectasis. Heart size is normal. Solid organs: Liver and spleen are normal in size. 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 A surgical drain within the right hepatic lobe abscess is pr esent, as before. There is increased size of the superior multiloculated component, measuring roughly 73 mm. Gallbladder is within normal limits. Biliary system is non dilated. Pancreas enhances jose lly. No adrenal nodules. Kidneys demonstrate normal size and enhancement, without hydronephrosis. Peritoneum and bowel: Bowel loops demonstrate normal wall thickness and caliber. No free fluid or a ir. Nodes and vessels: No retroperitoneal or mesenteric adenopathy by size criteria. Aorta and inferior vena cava are normal in size. Miscellaneous: No ventral hernias. PELVIS: Genitourinary: Bladder wall thickness is normal. No change in large calcified uterine fibroid. Miscellaneous: No inguinal hernias or adenopathy. Bones: No suspicious bony lesions. No vertebral body compression fractures. IMPRESSION: 1. Increased size of superior multiloculated component of the right hepatic lobe abscess. 2. Decreased, small bilateral pleural effusions. 3. 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 4. Large uterine fibroid is present, as before Dictated by: Junito Cardozo M.D. on 02/19/2017 at 16:05 Approved by: Junito Cardozo M.D. on 02/19/2017 at 16:33
--- NOTE | 2017-02-19 18:53 | NUR ---
Activity/Pain Pt pleasant, cooperative, a/ox3, up to bsc with sb assist. Good appetite, Afebrile and denied pain today. Hepatic drain leaking at site, pt. reports new occurrence small amts. green output . MD notified instructed to reinforce/secure, and deferring GI for re-evaluation. T-tube dressing applied, c/d/i. CT completed today
--- NOTE | 2017-02-19 23:59 | PCM.CONPAL ---
Date of Service Feb 19, 2017 Date of Hospital Admission: Feb 18, 2017 at 21:51 Date of Palliative Consult: Feb 19, 2017 Requesting Provider: Alhaji To MD Comment: reports no pain Reason Palliative Care Consult: Goals of Care Discussion Hospital Unit @time of consult: Progressive Care Palliative Care Recommendation Summary of palliative recommendations: -Symptom management (Pain/other) No pain Fever and malaise- doing better. GOC-patient would like to wait for the results of her blood cultures. If these are negative- then to continue on If they are + after a few weeks of antibiotics her prognosis is very poor and she would be willing to review her GOC again at that time. -DPOA/Advanced Directives/POLST-lists her son Ernesto and adopted daughter. She is a DNR but requests aggressive care up to that point.She is still considering her options for full code. Willing to discuss after culture results. WILL NEED POLST TO REFLECT DECISION BEFORE DISCHARGE -Family/emotional support-, son and her daughter -Spiritual support Additional Medical Diagnoses with primary management by Hospitalist team include : Problems: Disposition assuming back to [place] [facility] Resuscitation Status Resuscitation Status: DNR/DNI:Do Not Resuscitate/Intubate POLST Updates/Changes Previous POLST?: No POLST Discussed with: Patient . Pain: None Pt History History of Present Illness 81-year-old with past medical history remarkable for recurrent GI bleeds secondary to hereditary hemorrhagic telangiectasia as well as recent liver abscess on daily IV antibiotic infusions presents with new onset fever. The patient states that she has been taking her antibiotics as directed for her liver abscess however after today's infusion of ertapenem she began to feel feverish and generally poor overall. The patient laid down and took a nap however when she woke up she did not feel any better and therefore she came into the ED. Her drain in her liver abscess did drain with the onset of her fever but slightly. She reports her T at 103 The patient states that she requires regular blood transfusions for her GI bleeds which is her jose for years.This has been managed by Dr. Bynum. Seen to again review goals of care. She was discharged to [facility] to be with her .She has been transferred to [facility] for IV antibiotics. She felt that her appetite was good, fair energy level and weight stable until the onset of fever. 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 Multiple GI bleeds requiring biweekly transfusions in the last several years. Status post gastric perforation 10/25, requiring closure of the perforation. Hepatic abscess with drain in place. Acquired Hypothyroidism. Uterine fibroid mass. Malnutrition Acute VRE bacteremia with question of endocarditis-dx 02/03/17 and has been ertapenem IV History of acute left upper extremity DVT at site of PICC line during last hospitalization Iron deficiency anemia Surgical History Partial thyroidectomy Tonsillectomy Upper endoscopy with argon ablation of gastric AVMs at [facility] in September 2016 Laparoscopic closure of anterior gastric perforation with omental patch and washout (10/31/16) Bilateral cataract removal Family History Patient is adopted and does not know her family history The patient's son also has hereditary hemorrhagic telangiectasia and suffered from a brain abscess last year requiring hospitalization Granddaughter likely also has HHT due to recurrent nosebleeds however this is undiagnosed at this time nonsmoker, rare ETOH Social History 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, 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 Living Situation: see above Spiritual Support Spiritual Support not interested in pursueing this Palliative Performance Scale PPS Ambulation: Full PPS Activity: Unable to do normal job/work PPS Self-Care: Occasional assistance necessary PPS Intake: Normal or reduced PPS Conscious Level: Full Performance Scale: 90% Allergy Allergies Reviewed: Yes Medications Current Medications: Current Medications Meropenem/Sodium Chloride 100 ml @ 33.333 mls/ hr Q8 IV; Start 02/19/17 at 00: 30; Stop 02/19/17 at 02:25; Status DC Linezolid 600 mg BID PO Last administered on 02/19/17t 20:54; Admin Dose 600 MG ; Start 02/18/17 at 20:55 Al Hydrox/Mg Hydrox/Simethicone 30 ml Q6 PRN PO; Start 02/18/17 at 21:00; Stop 02/18/17 at 22:22; Status DC Ondansetron HCl Dose range: 4 mg to 8 mg Q4H PRN IVPUSH; Start 02/18/17 at 21: 00; Stop 02/18/17 at 22:22; Status DC Acetaminophen 975 mg Q6H PRN PO; Start 02/18/17 at 21:00; Stop 02/19/17 at 02: 47; Status DC Al Hydrox/Mg Hydrox/Simethicone 30 ml Q6H PRN PO; Start 02/18/17 at 21:50 Ondansetron HCl 4 to 8 mg Q4H PRN IVPUSH; Start 02/18/17 at 21:50 Senna 17.2 mg BID PRN PO; Start 02/18/17 at 21:50 Polyethylene Glycol 17 gm DAILY PRN PO; Start 02/18/17 at 21:50 Bisacodyl 10 mg DAILY PRN RECTAL; Start 02/19/17 at 00:00 Dronabinol 5 mg TIDAC PO Last administered on 02/19/17 07:51; Admin Dose 2.5 MG ; Start 02/19/17 at 07:30 Pantoprazole 20 mg BID PO Last administered on 02/19/17 20:54; Admin Dose 20 MG ; Start 02/19/17 at 08:30 Thyroid 60 mg 60 mg DAILYAC PO Last administered on 02/19/17 07:50; Admin Dose 60 MG; Start 02/19/17 at 07:30 Hydromorphone HCl/ Sodium Chloride 100.125 ml @ 4.172 mls/hr Q24H PRN IV; Start 02/19/17 at 00:40; Status UNV Hydromorphone HCl 0.25- 0.5MG Q2H PRN IVPUSH Last administered on 02/19/17 21: 04; Admin Dose 0.25 MG; Start 02/19/17 at 00:55 Ertapenem/Sodium Chloride 50 ml @ 100 mls/hr 0830 IV Last administered on 08:06; Admin Dose 100 MLS/HR; Start 02/19/17 at 08:30 Scheduled Dronabinol (Dronabinol) 2.5 Mg Capsule 5 MG PO TIDAC Linezolid (Linezolid) 600 Mg Tablet 600 MG PO BID Pantoprazole DR (Pantoprazole DR) 20 Mg Tablet.dr 20 MG PO BID Polyethylene Glycol 3350 (Miralax) 17 Gm Powd.pack 17 GM PO DAILY Thyroid,Pork ([place] Thyroid) 60 Mg Tablet 60 MG PO DAILY Scheduled PRN Bisacodyl (Dulcolax Rectal) 10 Mg Supp.rect 10 MG RC DAILY PRN PRN For Constipation For no BM after MOM Ondansetron ODT (Ondansetron ODT) 4 Mg Tab.rapdis 4 MG PO Q4H PRN PRN For Nausea Objective Findings Exam Vital Sign - Last Date Time Temp Pulse Resp B/P Pulse Ox O2 Delivery O2 Flow Rate FiO2 02/19/17 22:56 36.7 80 20 92/47 97 Room Air Intake and Output 02/18/17 02/18/17 02/19/17 Cumulative From/Thru 15:00 23:00 07:00 02/18/17 19:01 - 02/19/17 06:44 Intake Total 1000 ml 830 ml 1830 ml Output Total 700 ml 700 ml Balance 1000 ml 130 ml 1130 ml Intake Oral 100 ml 100 ml IV Total 1000 ml 180 ml 1180 ml Packed Cells 550 ml 550 ml Output Urine Total 700 ml 700 ml Objective thin nearly cachectic HEENT: PERRLA, EOMI, Scleral Anicteric Heart: Regular Rate/Rhythm Lungs: Normal Air Movement Neuro: Cranial Nerve 3-12 Intact, Other Lab/Diagnostics Lab and Imaging results reviewed in detail in EMR. Patient/Family Conference Members Present Family Members Present patient Medical Team Members Present? [facility] Discussion/Goals of Care Discussion Patient is well versed in her disease process and options. She continues to be optimistic regarding her prognosis. With this in mind she also requests aggressive intervention with a goal of cure. This is WRT VRE bacteremia. She continues to have a hard time considering herself as sick. Time spent Total time 45 minutes; >50% face to face with patient and/or family, providing counselling regarding plans and recommendations, and in care coordination with his/her medical teams. I also spent an additional [ ] minutes counseling for advanced care planning with the patient/the patients family/the surrogate decision maker. Carmelita Jacobo MD Feb 19, 2017 23:59
[2017-02-20] VITALS (7 sets, daily range): BP systolic 87–100; BP diastolic 48–54; PULSE 54–98; RESP 16–20; O2SAT 97–99
[2017-02-20] MEDS: HYDROmorphone 0.5 mg/0.5 mL iSecure Syringe IVPUSH PRN ×3 (02:25→20:56)
[2017-02-20 03:00] LABS: BASOPHILS % (AUTO) 1.3 % (0-3); EOSINOPHILS % (AUTO) 1.9 % (0-5); MONOCYTES % (AUTO) 15.5 % (4-12); Mean Corpuscular Hemoglobin 29.3 pg (27.0-35.0); Mean Corpuscular Volume 92.6 fL (81-100); NEUTROPHILS % (AUTO) 59.7 % (40-74); Platelet Count 471 bil/L (150-400)
[2017-02-20 04:09] LABS: Magnesium 1.8 mg/dL (1.6-2.6); Phosphorus 2.7 mg/dL (2.5-4.9)
--- NOTE | 2017-02-20 05:05 | NUR ---
Pain/Telemetry/Hepatic Drain C/O / pain at drain site , gave 0.25 Mg IV Dilaudid allowing her to sleep . Hepatic drain seems to be cause of pain , . A&O x3 using call light appropriately, SBA to BSC, Room Air, NS @ TKO. Tele SR 26-30
[2017-02-20] MEDS: Ertapenem Inj 1,000 MG in 0.9% Sodium Chloride 50 ML IV SCH (08:42)
[2017-02-20] MEDS: Pantoprazole 20 mg ER24 Tablet PO SCH ×2 (08:42→20:49)
--- NOTE | 2017-02-20 09:07 | PROG NOTE ---
[address] [address] PROGRESS NOTE PATIENT: STEWART UREÑA : 1935 MR#: [id number] ADMIT: 02/18/2017 JOB ID: [id number] DATE: 02/20/2017 INFECTIOUS DISEASE FOLLOWUP NOTE: REASON FOR FOLLOWUP: Recent high-spiking fever in the setting of a worsening liver abscess despite drainage. INTERVAL HISTORY: The patient today feels like she is rapidly returning to her baseline of the last couple of months. She is free of fever or chills. Has reasonable appetite. No nausea, vomiting, cough, or shortness of breath. She has minimal right upper quadrant pain at the site of her drain, though it did leak a bit yesterday around the drain. PHYSICAL EXAMINATION: Reveals an emaciated woman. Temperature 36.6, pulse 70, respiratory rate 20, blood pressure 100/54, saturating well on room air. She is awake and alert, pale appearing. Pale conjunctivae. Lungs are clear. Cardiac tones: Regular rate and rhythm. The patient's abdomen, as before, was slightly distended with a drain in the right upper quadrant depended. It is notable that the drain is draining green bilious type material. LABORATORIES: Include white count today 4700, relatively normal diff, platelets 471, her crit is 24. Creatinine 0.31. LFT normal. Alk phos has dropped quite a bit to 348, albumin 2.5. Procalcitonin is negative x2 at 0.1 basically, and I see no reason to repeat more procalcitonins. Blood cultures from admission are negative. Of greatest concern and importance is the CT of the abdomen. It shows clearly that the multiloculated right liver abscess process is bigger than it was previously. This appears to me to be the worst CT scan of the abdomen we have on this patient in that it seems like her liver abscess is actually bigger than when we started this whole drainage and IV antibiotic program almost 70 days ago. The lung bases were noted and show small pleural effusions and some atelectasis. 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 This was a polymicrobial gram-negative abscess and she has been on aggressive antibiotic therapy for essentially 70 days. This antibiotic treatment has been combined with a series of liver drains. At the conclusion of this 70 days, however, we are left with a liver abscess which is multiloculated and actually looks worse than when we started. It may be that some of the abnormalities on the CT represent bile or biloma but it is difficult to tell whether this is primarily infection or a bile collection but in any event, the overall trend seems to be in the wrong direction. At this point, I think we need to rethink this case and our combined interventional radiology plus antibiotic approach, as we are clearly not getting control of this situation. I have sent a text this morning to both Dr. Sam of GI and Dr. Moncada of general surgery, as they know this patient well. I think we should consider possibilities such as open surgical drainage of this process, the placement of additional drains, pulling this drain and watching to see what happens, or transfer to a center with a tertiary care hospital with experiencing complex biliuria and liver disorders and surgery. Palliative care might also be another consideration in this chronically ill and cachectic woman. RECOMMENDATIONS: 1. Will discuss the case with GI and General Surgery. 2. Will continue for now with ertapenem and oral linezolid which seem to be controlling at least the bacteremic portions of this infection. 3. I would consider removing the telemetry leads that are present and irritating to the patient, as she has no dysrhythmia.
[2017-02-20] MEDS: Ondansetron 2 mg/mL 2 mL Inj IVPUSH PRN (10:18)
--- NOTE | 2017-02-20 11:42 | PCM.PNMED ---
Subjective Date of Service Feb 20, 2017 Subjective Niesha Ford states that she is at or near to her baseline health upon evaluation today. Her only complaint is her baseline pain around her drain insertion site. No significant overnight events Comprehensive ROS negative except as listed above. Exam Vital Signs Vital Sign - Last Date Time Temp Pulse Resp B/P Pulse Ox O2 Delivery O2 Flow Rate FiO2 02/20/17 08:30 36.9 86 18 97/50 99 Room Air Intake and Output 02/19/17 02/19/17 02/20/17 Cumulative From/Thru 14:59 22:59 06:59 02/18/17 19:01 - 02/20/17 05:36 Intake Total 303 ml 1675 ml 300 ml 4108 ml Output Total 400 ml 1100 ml Balance 303 ml 1675 ml -100 ml 3008 ml Intake Oral 600 ml 200 ml 900 ml IV Total 303 ml 100 ml 1583 ml TPN/PPN 1075 ml 1075 ml Packed Cells 550 ml Output Urine Total 400 ml 1100 ml # Bowel Movements 1 0 1 Exam Gen: A/O x3 pleasant cooperative elderly cachectic woman in NAD Neck: Supple, non tender, no JVD, Full ROM HEENT: PERRL, EOMI, no scleral icterus, no conjunctival pallor, significant temporal wasting CV: RRR no murmurs rubs or gallops Resp: Lungs CTA BL, no wheezing rales or rhonchi Abd: Soft, mildly tender around insertion site of drain which is draining brown brackish fluid, some serous drainage around the drain insertion site, no organomegaly, no rebound or guarding Extr: No clubbing cyanosis or edema Neuro: CN 2-12 grossly intact, no focal neurologic deficit Psych: Pleasant and appropriate mood and affect. IVs and Medications IV Fluids 50 ml delivered with IV medication Medications Reviewed: Medications were reviewed in detail Lab and Diagnostics Item Value Date Time Red Blood Count 2.56 mil/mm3 L 02/20/17 0240 Mean Corpuscular Volume 92.6 fL 02/20/17 0240 Mean Corpuscular Hemoglobin 29.3 pg 02/20/17 0240 Mean Corpuscular Hemoglobin Concent 31.6 % L 02/20/17 0240 Red Cell Distribution Width 16.4 % H 02/20/17 0240 Neutrophils (%) (Auto) 59.7 % 02/20/17 0240 Lymphocytes (%) (Auto) 21.4 % 02/20/17 0240 Monocytes (%) (Auto) 15.5 % H 02/20/17 0240 Eosinophils (%) (Auto) 1.9 % 02/20/17 024 Basophils (%) (Auto) 1.3 % 02/20/17 024 Estimat Glomerular Filtration Rate 293 mL/min 02/20/17 024 Calcium Level 8.3 mg/dL L 02/20/17 024 Phosphorus Level 2.7 mg/dL 02/20/17 024 Magnesium Level 1.8 mg/dL 02/20/17 024 Total Bilirubin 0.4 mg/dL 02/20/17 024 Aspartate Amino Transf (AST/SGOT) 26 U/L 02/20/17 024 Alanine Aminotransferase (ALT/SGPT) 24 U/L 02/20/17 024 Alkaline Phosphatase 348 U/L H 02/20/17 024 Total Protein 4.7 g/dL L 02/20/17 024 Albumin 2.5 g/dL L 02/20/17 024 Procalcitonin 0.09 ng/mL H 02/20/17 0240 Result Diagram: 02/20/17 0240 02/20/17 024 Microbiology Blood culture pending X-Rays, CTs and MRIs X-RAY CHEST ONE VIEW, PORTABLE IMPRESSION: Right upper quadrant surgical drain. Otherwise no significant interval change. Enlarged cardiomediastinal silhouette. Dictated by: Theo Trinidad M.D. on 02/18/2017 at 21:55 Approved by: Theo Trinidad M.D. on 02/18/2017 at 21:56 CT ABDOMEN AND PELVIS WITH CONTRAST IMPRESSION: 1. Increased size of superior multiloculated component of the right hepatic lobe abscess. 2. Decreased, small bilateral pleural effusions. 3. 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 4. Large uterine fibroid is present, as before Dictated by: Junito Cardozo M.D. on 02/19/2017 at 16:05 Approved by: Junito Cardozo M.D. on 02/19/2017 at 16:33 . 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 Per Dr. Webber patient has in the past manifested fevers shortly after drain flushing which subsequently resolve spontaneously, concern that this the flushing process washes purulent debris back into the abdominal cavity manifesting a transient bacteremia. CT abdomen/ pelvis was quite discouraging as it revealed that her multiloculated liver mass is larger and more extensive than at any point in the past, now s/p 70 days of intensive IV antibiotics and multiple drains. 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 Resolved - Followed as an outpatient by infectious disease, the prior source of the infection was likely thought due to endocarditis with echo on 02/05 with noted small filamentous strand at the tips of aortic leaflets. - SIRS positive with tachycardia of 98 and fever of 38.9 Celsius at admission - Tachycardia may be explained due to new acute blood loss anemia, and ertapenem is also known to cause drug fevers - Patient denies worsening abdominal pain at site of liver abscess or significant notable change in liver abscess drain output - blood cultures ordered in ED - Continue outpatient antibiotic Linezolid 600 mg twice a day and Ertapenem 1 g daily - Infectious disease consulted from the ED - Per ID evaluation this likely represent transient bacteremia from liver drain flushing procedure Chronic liver abscess, present on admission, ongoing -Liver abscess drain in place -Liver abscess culture previously grew Escherichia coli and Klebsiella. -ID Consult and Abx as noted above -Patient will likely require indefinite antibiotic therapy as she is unable to tolerate surgical intervention -Continuing ertapenem and linezolid described above -Pain control with Dilaudid IV per outpatient schedule from previous hospital records -CT results as above, hepatic mass is larger than previous study -Drain entry site was leaking a small amount of serous fluid, now improved -ID and GI are coordinating to ascertain if there are any additional interventions we have available, or if she may benefit from transfer to a tertiary care center for specialized treatment vs. conversion to hospice palliative given her non response to prolonged intensive therapy. Acute blood loss anemia, present on admission, stable -Secondary to Hereditary hemorrhagic telangiectasia and likely upper GI bleeding due to AVMs - 5 units PRBCs reserve by EGD - 2U PRBCs transfused on day of admission -Continuing to monitor H/H -We will attempt to reduce number of blood draws. 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 Bynum as an outpatient. -Transfuse below Hg 7. Severe protein calorie malnutrition, present on admission, active -Continue to encourage oral intake. -Nutritional consult placed -Marinol continued from prior admission to encourage PO intake -BMI 16.6 Chronic constipation, present admission, ongoing -Patient states that her stools are now soft likely due to MiraLAX Hypothyroidism, present on admission, chronic -s/p partial thyroidectomy. -We will continue outpatient Mcdonald Thyroid Disposition: Disposition uncertain at this point given imaging findings, likely transfer to tertiary care center versus discharge back to [place] [facility]ospice. Pain Evaluation: Adequate Pain Control GI Prophylaxis: Proton Pump Inhibitor VTE Prophylaxis: SCDs VTE Mechanical Devices: Intermittant Pneumatic CD Resuscitation Status: DNR/DNI:Do Not Resuscitate/Intubate Attending Statement MRCP results pending; investigation to see whether there is communication between abscess and main hepatobiliary tree. The patient was seen and examined together with Dr. Limon on 02/20/2017 and I agree with the history, exam and plan as outlined in the note above. . Bj Limon DO Feb 20, 2017 11:42 Alhaji To MD Feb 21, 2017 06:44
--- NOTE | 2017-02-20 13:19 | PCM.PALLBR ---
Palliative Care Recommendation Summary of palliative recommendations: Symptom management: per Attending. 1. Currently, she reports no pain. 2. Fever and malaise- doing better. Goals of Care: 1. On reviewing her goals with her today, Mrs. Ford is awake, alert, calm and able to make her own decisions. She is aware of Dr. Webber's assessment and recommendations. She wants to pursue further treatment to try to get better and return to baseline of living with her , reading books, visiting friends and going out to lunch. DPOA/Advanced Directives/POLST: 1. lists her son Ernesto and adopted daughter. She is a DNR but requests aggressive care up to that point.She is still considering her options for full code. 2. Palliative Care will try to obtain a POLST prior to discharge. Family/emotional support: good from , son and her daughter Spiritual support: not addressed Problems: Disposition assuming back to [place] Resuscitation Status Resuscitation Status: DNR/DNI:Do Not Resuscitate/Intubate POLST Updates/Changes Previous POLST?: No POLST Discussed with: Patient Total time 65 minutes; >50% face to face with patient and/or family, providing counselling regarding plans and recommendations, and in care coordination with his/her medical, nursing and ID specialist Dr. Webber. Palliative Brief Note Date of Service Feb 20, 2017 . 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 The patient was taking her antibiotics as directed for her liver abscess however after her infusion of ertapenem she began to feel feverish and generally poor overall. The patient requires regular blood transfusions for her GI bleeds which is her norm for years.This has been managed by Dr. Bynum. She was admitted 02/18 for further workup of her fever. Hospital Course: So far, her blood cultures and studies have been negative for any obvious infection, but her CT scan 02/19 shows that the multiloculated right liver polymicrobial gram-negative abscess process is actually bigger than when she was started on a drainage and IV antibiotic program almost 70 days ago[address] ID specialist Dr. Webber is now recommending that surgery review her case and consider possibilities such as open surgical drainage of this process, the placement of additional drains or transfer to a center with a tertiary care hospital with more experience in complex biliuria, liver disorders and surgery. Social History: She lives at [place] with her . In the recent past, she has been transported to [facility] for IV antibiotics. Subjective: She denies any pain, is eating fairly well, has no nausea or vomiting. She was able to carry on a detailed conversation about her baseline activities and hobbies with me this morning. Exam: General: cachectic, makes good eye contact, firm handshake HEENT: PERRLA, EOMI, Scleral Anicteric, dry mucus membranes Heart: Regular Rate/Rhythm Lungs: Normal Air Movement Neuro: Cranial Nerve 3-12 Intact, AxOx3, speech clear, precise,concentration and focus intact. Extrem: no edema Lupe Arteaga MD Feb 20, 2017 13:19
--- NOTE | 2017-02-20 13:59 | NUR ---
Social Work: Initial Assessment D: Per EMR review, pt is an 81 year old female admitted for Liver Abscess, Sepsis. Pt is [facility] with Medicare; pt has no LTC insurance or VA benefits. PCP is Macy Baird MD. NOK Is Ernesto Ford, son, . Pt declined AD information from [employer] and states that she has received it in the past. She has not yet completed her directives. Readmit score is high, 5/8. Pt is a readmit and was discharged to [facility] with [facility] for RN, PT and outpatient IV ABX through [facility]. [employer] met with pt at bedside. Sw role explained and contact information provided. See initial assessment. Pt confirms that she lives at [facility] and has been open for services with [facility] for nursing and PT. Pt states that she has been completing IV ABX treatment at [facility] with family providing transport. Pt expresses no concerns about this process and states that she intends to resume doing these things after her discharge. Pt has a history at [facility]. She does not wish to return. Pt occasionally uses a walker for ambulation to the dining solo but otherwise is I with mobility. A: Pt who is I at baseline. P: Evolving; [employer] to continue to follow pt's clinical course. Anticipate pt to discharge back to [facility] living with resumed [facility] for RN, PT and IV ABX at [facility]. SOHAN Tenorio Addendum: 02/20/17 at 1407 by RIVER ANDERSON Amended: Links added.
--- NOTE | 2017-02-20 14:45 | NUR ---
FERDINAND Signed @ [id number]
--- NOTE | 2017-02-20 15:48 | NUR ---
P: Nausea I: Pt ate 75% of her breakfast then c/o nausea and was medicated with Zofran 4mg IV with good relief. Will start calorie count this evening. Family brought her in lunch and she ate about 50%. IVF NS TKO without difficulty. Medicated x 1 with Dilaudid 0.25mg IV with good relief. Pt turns self and up to BSC independently. Pt had one formed brown stool. Afebrile. VSS. E: Stable S: Alert and oriented. Uses call light appropriately. Frequent rounding.
--- NOTE | 2017-02-20 17:02 | CONS ---
[address] [address] CONSULTATION REPORT PATIENT: STEWART UREÑA : 1935 MR#: [id number] ADMIT: 02/18/2017 JOB ID: [id number] DATE OF SERVICE: 02/20/2017 CHIEF COMPLAINT: An 81-year-old woman with liver abscesses refractory to antibiotics and percutaneous drainage. This consultation is requested by Dr. Neville Webber. HISTORY OF PRESENT ILLNESS: This is an 81-year-old woman with a history of hereditary hemorrhagic telangiectasias. I met her back in October when she presented with acute gastric perforation a couple of weeks after she had argon beam coagulation endoscopically for her telangiectasias in the stomach. She was discharged and did well; however, over the course of the past 3 months she has been admitted multiple times with liver abscesses requiring percutaneous drainage and antibiotic therapy. She has been stable after discharge from these episodes; however, she re-presented to the hospital with a high fever and was found to have shrinking of the current abscess cavity which is being drained by her percutaneous drain, but a new large abscess cavity in the superior aspect of the liver. Additionally, she appears to have bile, not pus, coming out of her percutaneous drain. PAST MEDICAL HISTORY: 1. HHG. 2. GI bleeds. 3. Hepatic abscesses. 4. Hypothyroidism. 5. Uterine fibroids. 6. Malnutrition. 7. 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 8. History of left upper extremity DVT. 9. Iron deficiency anemia. PAST SURGICAL HISTORY: 1. Partial thyroidectomy. 2. Tonsillectomy. 3. Multiple upper endoscopies including argon ablation of gastric arteriovenous malformations at [facility] in September 2016. 4. Laparoscopic closure of anterior gastric perforation with omental patch on October 31, 2016. 5. Bilateral cataract removal. MEDICATIONS: Reviewed. Current antibiotics include ertapenem and linezolid. ALLERGIES: No known drug allergies. FAMILY HISTORY: The patient is adopted and does not know her family history. Her son also has HHG, as well as her grand-daughter. SOCIAL HISTORY: She is retired, rarely drinks alcohol, has never smoked. REVIEW OF SYSTEMS: An 11-point review of systems performed and negative except as noted in the HPI. PHYSICAL EXAMINATION: Temperature 36.8, heart rate 84, respiratory rate , saturation 98% on room air, blood pressure 87/48. General: Awake and alert. No acute distress. Head: Normocephalic. Neck: Supple. She appears emaciated, with a BMI of 16.5. Cardiac: Regular rate and rhythm. Respiratory: Breathing easily on room air. Abdomen: Soft. Very mild tenderness to palpation. Her percutaneous hepatic drain is on the right, with a small amount of clear yellow fluid in the bag. Extremities: Thin. No edema. Neurologic: No gross deficits. Psychiatric: Normal cognition and judgement. LABORATORY: White blood cell count 4.7, hematocrit 23, platelets 471. Comprehensive metabolic panel is within normal limits with the exception of alkaline phosphatase of 348. Bilirubin of 0.4. Albumin 2.5. Creatinine 0.31. IMAGING: CT scan of the abdomen shows a large right hepatic lobe abscess with multiloculated components. The current drain is within one of the abscess cavities and this particular cavity appeared decompressed; however, there are several large abscess cavities superior to this. The arteriovenous malformations are see on CT scan and her large uterine fibroid is seen as well. ASSESSMENT: An 81-year-old woman with liver abscesses refractory to percutaneous drainage and antibiotic therapy at this institution over the course of the past 2.5 months. RECOMMENDATIONS: Regarding control of the current abscesses, she does have the appearance that the largest of her abscesses may be drainable using a percutaneous method. This was discussed in detail with Dr. Webber. Based on the overall complexity of this case, the fact that there is some bile coming out of her percutaneous drain, and that her abscesses continue to recur despite therapy at this institution, I agree with Dr. Webber's thought that transfer to a tertiary facility is warranted. He has also discussed this with her sports leadership instructor, who has contacted [facility] today. In the meantime, while awaiting transfer, it would not be unreasonable to place an additional percutaneous drain in the most superior and largest of the abscesses. I do not recommend surgical intervention in this malnourished patient with BMI 16.5 and albumin 2.5. Thank you very much for this interesting consultation. One hour was spent on this patient visit today, greater than 50% in counseling and/or coordination of care.
--- NOTE | 2017-02-20 19:48 | PROG NOTE ---
[address] [address] PROGRESS NOTE PATIENT: STEWART UREÑA : 1935 MR#: [id number] ADMIT: 02/18/2017 JOB ID: [id number] DATE: 02/20/2017 SUBJECTIVE: I was notified by Dr. Webber that the patient had been rehospitalized. The patient was actually slated to be seen by me in followup tomorrow with respect to the intrahepatic drainage catheter and the ideal timing of its removal. Unfortunately, she developed recurrent fever and was brought back to the hospital. It looks like her drain had actually migrated out slightly and there was a moderate amount of leakage around the bandage site. Updated CAT scan yesterday showed increased size of the superior multiloculated component of the right hepatic lobe abscess. The drain was adjusted and continues to put out a small amount of bilious content. She was febrile to 39.5 at admission and has been commenced on ertapenem. So far blood cultures are negative x24 hours and she has defervesced. She was quite anemic at admission, with a hemoglobin of 6.0, and has been transfused. ALLERGIES: No known drug allergies. MEDICATIONS: Dilaudid, Zofran, ertapenem, Protonix 20 mg twice daily, Zyvox, thyroid replacement, Marinol, p.r.n. Dulcolax, p.r.n. MiraLAX, p.r.n. senna, p.r.n. Maalox. REVIEW OF SYSTEMS: The patient indicates that she has been able to maintain acceptable stool output and actually had a few reasonably formed and soft stools of late. She has not seen any overt signs of bleeding such as melena or maroon stool. She has not had any vomiting. She continues to be able to eat much better subsequent to our last endoscopic interrogation where we in essence cleared out the GE junction of some debris that accumulated at her suture site. ASSESSMENT AND RECOMMENDATIONS: An 81-year-old female with a persistent large hepatic abscess being bed by bile. It would appear as though percutaneous drainage migration may have been responsible for the increased size noted at CAT scan yesterday which is certainly a concerning finding in that we were hoping to be able to remove her percutaneous drain altogether. I briefly discussed the case again with Dr. Samir fisher at [facility] and relayed to him the information that when I had earlier discussed the prospect of any significant connection between the abscess/biloma cavity and the main biliary tree with Dr. Cardozo when he had done contrast injection, he thought there was no significant connection and did not believe further evaluation or imaging at that time would be a worthwhile pursuit. However, after talking with Dr. Dawson, he would like to perhaps prove that and I have thus ordered an MRCP to simply see if there is any significant connection visible that might be a potential target for internal drainage. MRCP was thus ordered. I will follow up on results in the morning.
[2017-02-21] VITALS (8 sets, daily range): BP systolic 79–113; BP diastolic 48–68; PULSE 78–99; RESP 14–22; O2SAT 97–98
[2017-02-21] MEDS: HYDROmorphone 0.5 mg/0.5 mL iSecure Syringe IVPUSH PRN ×5 (00:43→22:25)
[2017-02-21 02:47] LABS: BASOPHILS % (AUTO) 0.6 % (0-3); EOSINOPHILS % (AUTO) 1.6 % (0-5); MONOCYTES % (AUTO) 17.5 % (4-12); Mean Corpuscular Hemoglobin 29.4 pg (27.0-35.0); NEUTROPHILS % (AUTO) 60.6 % (40-74); Platelet Count 445 bil/L (150-400)
[2017-02-21] MEDS ORDERED: 0.9% Sodium Chloride 250 ML ONE (02:55)
[2017-02-21 03:00] LABS: INR 0.99 ratio
[2017-02-21 03:28] LABS: Magnesium 1.8 mg/dL (1.6-2.6); Phosphorus 3.1 mg/dL (2.5-4.9)
[2017-02-21] MEDS ORDERED: 0.9% Sodium Chloride 250 ML IV STA (04:08)
--- NOTE | 2017-02-21 06:54 | NUR ---
No Tele/H&H/Pain Not on Tele, Pain 5/10 at hepatic Drain, gave Dilaudid 0.25 Mg IV x2 A&O x3 using call light appropriately, independent to BSC, on room air H&H 5.8. 19.1 , Hospitalist notified , orders entered to transfuse 2 units PRBC.
[2017-02-21] MEDS: Ertapenem Inj 1,000 MG in 0.9% Sodium Chloride 50 ML IV SCH (08:35)
[2017-02-21] MEDS: Pantoprazole 20 mg ER24 Tablet PO SCH ×2 (08:35→20:04)
--- NOTE | 2017-02-21 08:58 | DRSVH ---
PROCEDURE: MR ABDOMEN MRCP INDICATIONS: intrahepatic biloma...connection c biliary tree? TECHNIQUE: Coronal HASTE through the abdomen, axial 2-D FLASH in- and [id number], and breath-hold T2 FSE with fat saturation through the biliary system and pancreas. Oblique coronal and axial thin-slice HASTE, radial thick-slab HASTE centered on the extrahepatic bile ducts. Intravenous secretin: Not requested. COMPARISON: [facility], CT, CT ABD PELVIS W CON, 02[facility]19[facility]2017[facility] 15:[facility], 02/11/2017, 13:25. [facility], CT, CT ABD W CON, 02/03/2017, 2:02. FINDINGS: Image quality: Excellent. Pancreas and biliary system: Large multiloculated and complex fluid collection again present in the right hepatic lobe grossly unchanged in size since yesterday. Redemonstration of external surgical dr delilah is again noted. Additional satellite smaller fluid collection seen at the dome of the liver, imag e 7 series 17. On images 8-29, series 17 there may be a communication between the right intrahepatic biliary ductal system and the inferior aspect of the dominant fluid collection. However given the mot ion artifact and compromised spatial resolution recommend close clinical correlation. Please see javon age image series for further detail No intrahepatic or extra hepatic intraluminal biliary filling defect seen. Gallbladder grossly unrema rkable. Pancreatic duct grossly unremarkable. Other solid organs: Spleen unremarkable. Adrenal glands not well-seen due to motion artifact.. Both kidneys are grossly unremarkable, without hydronephrosis. Nodes and vessels: No retroperitoneal or mesenteric adenopathy by size criteria. Aorta and inferior vena cava are normal in size. Bowel and peritoneum: Unenhanced bowel loops are normal in caliber. Mild prominence of stomach. No free fluid. Lung bases: There are small bilateral pleural effusions Bones and soft tissues: No ventral hernias. There is scoliosis and diffuse discogenic change. IMPRESSION: Redemonstration of multiple, complex multiloculated fluid collections within the right lobe of the li matthew, presumably intrahepatic abscess/biloma. Possible communication with the right intrahepatic bilia ry tree as discussed above. Please see montage image series (and series 17) for further clarification and recommend close clinical and laboratory correlation as the study is motion degraded with comprom ised spatial resolution. Dictated by: Andre Herring M.D. on 02/21/2017 at 8:35 Approved by: Andre Herring M.D. on 02/21/2017 at 8:56
--- NOTE | 2017-02-21 10:39 | PCM.PALLBR ---
Palliative Care Recommendation Summary of palliative recommendations: Symptom management: per Attending. 1. She reports no pain now but has had intermittent pain with 5 dose of 0.25mg IV dilaudid in last 24hours. She experiences good relief with this dose. No recommendations for any changes at this time. 2. Fever and malaise- doing better. Goals of Care: 1. On reviewing her goals with her 02/20, Mrs. Ford was awake, alert, calm and able to make her own decisions. She was aware of Dr. Webber's assessment and recommendations. She wants to pursue further treatment to try to get better and return to baseline of living with her , reading books, visiting friends and going out to lunch. DPOA/Advanced Directives/POLST: 1. lists her son Ernesto and adopted daughter. She is a DNR but requests aggressive care up to that point.She is still considering her options for full code. 2. Palliative Care will try to obtain a POLST prior to discharge. Family/emotional support: good from , son and her daughter, who were all present in the room today. Family had no questions for me. Spiritual support: not addressed Problems: Disposition assuming back to [place] Resuscitation Status Resuscitation Status: DNR/DNI:Do Not Resuscitate/Intubate POLST Updates/Changes Previous POLST?: No POLST Discussed with: Patient Total time 25 minutes; >50% face to face with patient and/or family, providing counselling regarding plans and recommendations, and in care coordination with his/her medical teams. Palliative Brief Note Date of Service Feb 21, 2017 . . 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 The patient was taking her antibiotics as directed for her liver abscess however after her infusion of ertapenem she began to feel feverish and generally poor overall. For years, the patient requires regular blood transfusions for her GI bleeds and these have been managed by Dr. Bynum. She was admitted 02/18 for further workup of her fever. Hospital Course: Her blood cultures and studies have been negative for any obvious infection, but her CT scan 02/19 shows that the multiloculated right liver polymicrobial gram-negative abscess process is actually bigger than when she was started on a drainage and IV antibiotic program almost 70 days ago. On , ID specialist Dr. Webber asked surgery and GI to review her case and consider possibilities such as open surgical drainage of this process, the placement of additional drains or transfer to a center with a tertiary care hospital with more experience in complex biliuria, liver disorders and surgery. On evening 02/20, she had an MRCP which describes a possible communication between the right intrahepatic biliary ductal system and the in the right hepatic lobe. Surgeon Dr. Moncada also saw her 02/20 and reviewed her imaging, and recommends transfer to a tertiary center, but is also to place an additional percutaneous drain in the most superior and largest of the abscesses while waiting for the transfer. On 02/21, GI and Surgery are conferring on the next step. Social History: She lives at [place] with her . In the recent past, she has been transported to [facility] for IV antibiotics. Subjective: She says her pain is only intermittent and localized to her drain site. She is receiving blood this morning, and they need to change her IV catheter site. She ate breakfast and now has to wait until after 4pm on NPO in order to go down to get her liver abscess drain replaced. She has no nausea or vomiting, or SOB. She was able to carry on a detailed conversation Exam: General: cachectic, makes good eye contact. Frowning somewhat. HEENT: PERRLA, EOMI, Scleral Anicteric, dry mucus membranes Heart: Regular Rate/Rhythm Lungs: Normal Air Movement Neuro: Cranial Nerve 3-12 Intact, AxOx3, speech clear, precise,concentration and focus intact. Extrem: no edema Lupe Arteaga MD Feb 21, 2017 10:39
--- NOTE | 2017-02-21 11:37 | PROG NOTE ---
[address] [address] PROGRESS NOTE PATIENT: STEWART UREÑA : 1935 MR#: [id number] ADMIT: 02/18/2017 JOB ID: [id number] DATE: 02/21/2017 INFECTION DISEASE FOLLOWUP: REASON FOR FOLLOWUP: Complex hepatic abscess/biloma with VRE bacteremia. INTERVAL HISTORY: Recall this is an 81-year-old woman with HHT as an underlying problem who about two and half months ago was diagnosed with a progressive liver abscess that was polymicrobial bacteremic and involved 2 gram negative rods. Despite literally weeks of therapy with broad-spectrum appropriate antibiotics as well as drainage, this fluid collection has worsened. This has occurred in spite of appropriate antibiotics and many of manipulations of the drain. More recently, the patient was readmitted after a brief stay at home, during which time she was receiving IV antibiotics as well as ongoing drainage. At the time of her readmission, she had VRE in her blood cultures. She has done relatively well with antibiotics including ertapenem and linezolid in that her blood cultures have turned negative but imaging shows that if anything her biloma/abscess problems in her liver are worse. This morning Dr. Sam and the invasive radiologist and I had a lengthy conference in the radiology suite to examine her images and discussed drainage options. The patient, for her part this morning, says she is much weaker than yesterday and was noted her crit has fallen considerably, and she is in the midst of receiving 2 units of blood. She has no fevers, chills or sweats. No significant new cough and no real change in her mild right upper quadrant pain around the drain site. There is no skin rash or other new symptomatology. PHYSICAL EXAMINATION: She remains completely afebrile. Temperature 36.6 and she has been afebrile now for three days. Her pulse 78, respiratory rate 15, blood pressure 102/57, saturating well on room air. She looks more pale and tired today. Eyes: Her conjunctivae are extremely pale bilaterally. Oral cavity: No change. Lungs: Relatively clear. The patient remains very cachectic. Cardiac tones: No change, regular rate and rhythm. Abdomen: Mild right upper quadrant tenderness with a drain in place draining bilious material. No new skin rash. LABORATORIES: Include white blood count 5000, hematocrit this morning 19 with a hemoglobin of 5.8, platelet count 445,000. Creatinine less than 0.3. LFTs normal. Alk phos down to 342. Procalcitonin negative x2 recently. We have no new positive blood cultures. We do have cultures from February 18, which are negative blood cultures. An MRCP was done yesterday and we reviewed this extensively in the radiology suite. It shows multiple complex multiloculated fluid collections in the right lobe of the liver, thought to be due to intrahepatic abscess and/or biloma. It is thought that this is likely a communication with the right intrahepatic biliary tree. This is seen on one of the images. IMPRESSION: This is a case of extraordinary complexity which has now gone on roughly 70 days. The patient started off the polymicrobial gram-negative bacteremic liver abscess, and had multiple complications including overall worsening of the picture of the of the hepatic architecture as viewed by the recent CTs and MRCP, with increasing areas of abscess and/or biloma. Additionally, we have vancomycin-resistant Enterococcus bacteremia superimposed on the prior gram-negative bacteremia. At this point, it seems that her infections are under control at least in terms of her systemic infections, but that her liver picture is deteriorating. Numerous options were discussed today including placement of a new larger drain or a so-called inside/outside or Rendezvous procedure to divert biliary drainage. Also discussed was possible transfer. RECOMMENDATIONS: 1. We will continue with linezolid and ertapenem. 2. I offered my opinion that the placement of a larger drain, perhaps further into this multiloculated abscess/biloma cavity would be the safest and best option at this point. 3. We will continue to follow this complex case very closely with you. TIME: Total time expended on this case today exceeds 40 minutes.
[2017-02-21] MEDS: Ondansetron 2 mg/mL 2 mL Inj IVPUSH PRN (12:15)
--- NOTE | 2017-02-21 14:00 | PROG NOTE ---
[address] [address] PROGRESS NOTE PATIENT: STEWART UREÑA : 1935 MR#: [id number] ADMIT: 02/18/2017 JOB ID: [id number] DATE: 02/21/2017 SUBJECTIVE: Spent time this morning with Dr. Joel trying to plan out a possible solution/intervention based on the MRCP results. There is a very small radical off the right hepatic system that comes close to the multiloculated heterogeneous collection that might be a potential target for an internal external drainage procedure. It looks as though a larger component of the abscess cavity may be suboptimally drained by the current drain catheter positioning. The patient may be may have a great response simply to adjusting the location of said catheter. OBJECTIVE: Vitals: Blood pressure 106/53, pulse 93, breathing 16, afebrile 36.8. In no distress. Conversational. Family at the bedside. LABORATORY: Blood count was again low at 5.8, hematocrit 19.1. She is receiving 2 units of packed RBCs today. No report of any overt GI bleeding in the form of melena. ASSESSMENT AND RECOMMENDATIONS: An 81-year-old female with a very complicated clinical problem in the context of hemorrhagic hereditary telangiectasia. 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 Connection with the main biliary tree is definitely present, but again by way of what seems to be a very small radical through the right hepatic system. The existing abscess catheter certainly could be more optimally positioned and a plan to do so is in place with exploration of the cavity by contrast to see if there is a target to potentially convert her over to an internal external drainage catheter. Unfortunately this is going to require anesthesia for the patient and logistics dictate that this may be deferred until Friday. Certainly if the patient has any kind of clinical deterioration through the weekend between now and then I would recommend consideration of transfer down to [facility]. Dr. Peraza will be covering the GI service through the weekend.
--- NOTE | 2017-02-21 14:21 | NUR ---
NUTRITION FOLLOW-UP: Assess: Pt is an 81yo F admitted for liver abscess and sepsis. Pt recently discharged ~1 week ago. She is currently NPO in preparation for liver abscess drain replacement. Calorie Count was order per MD 02/20. (see below). At this point due to current NPO status, it is hard to assess PO intake. Pt reports good appetite and family has been bringing in food for pt as well. PMHx: Ulcerated gastroesophageal junction, Irregular gastroesophageal junction, Gastric and duodenal hereditary hemorrhagic telangiectasia, Hypothyroid, malnutrition, uterine fibroid. LABS: Reviewed. Food Product Inspector <.3, Glu 101, Ca 8.1, alk phos 342, Alb 2.3 MEDICATIONS: Reviewed. Marinol DIET: General, PO 50-100% GI: BMx1 02/21 SKIN: Cosmo 16; pale, frail woman sitting up in bed. Visible muscle/fat loss in face and arms. ANTHROPOMETRICS: Current wt: 42.2kg, BMI 16.5kg/m2. Wt 02/11: 42.9kg, BMI 16kg/m2 Wt: (12/17) 41.5 kg (standing scale) Past Admit Wt: 38.5 kg (Bed scale) IBW: 52.3 kg. UBW (November): 54 kg. CALORIE COUNT: x2 meals (pt is currently NPO) Dinner (02/20): 570kcal, 20g pro Breakfast (02/21): 218kcal, 6g pro ESTIMATED NEEDS: Malnutrition Calories: 4606-5627 (30-35 kcal/kg BW) Protein: 65-80 g/day (1.2-1.5 g/kg IBW) NUTRITION DIAGNOSIS: 1) Severe pro/kcal malnutrition related to chronic illness as evidenced by variable wt, visible loss of LBM/ fat, BMI of 15.2kg/m2--PERSISTS INTERVENTION: 1) Recommend advance diet when medically appropriate. 2) Will continue to monitor PO intake via Calorie Count- RD will not be available until Saturday 02/24 to re-evaluate intake 3) Pt likes Ensure CL so will continue to send on all trays (Ensure CL TID provides 600kcal and 21g pro). Pt tends to drink the Ensure CL btwn meals. MONITOR/EVALUATE: PO intake, labs, weight, nutrition status, overall POC. Follow per high nutrition risk guidelines.
--- NOTE | 2017-02-21 16:40 | PCM.PNMED ---
Subjective Date of Service Feb 21, 2017 Subjective Patient is becoming increasingly frustrated and worn out by relentless bad news and hospitalizations, still insisting upon full aggressive care. Continues to complain of pain at the site of drain insertion, weakness, and both physical and psychological fatigue. Overnight patient's H/H dropped precipitously, given 2U PRBC Comprehensive ROS negative except as listed above. Exam Vital Signs Vital Sign - Last Date Time Temp Pulse Resp B/P Pulse Ox O2 Delivery O2 Flow Rate FiO2 02/21/17 16:05 37.1 88 18 98/51 98 Room Air Intake and Output 02/20/17 02/20/17 02/21/17 Cumulative From/Thru 15:00 23:00 07:00 02/18/17 19:01 - 02/21/17 05:56 Intake Total 797 ml 200 ml 5105 ml Output Total 650 ml 500 ml 2250 ml Balance 147 ml -300 ml 2855 ml Intake Oral 640 ml 200 ml 1740 ml IV Total 157 ml 1740 ml TPN/PPN 1075 ml Packed Cells 550 ml Output Urine Total 650 ml 500 ml 2250 ml # Voids 2 2 # Bowel Movements 1 1 3 Exam Gen: A/O x3 pleasant cooperative elderly cachectic woman in NAD Neck: Supple, non tender, no JVD, Full ROM HEENT: PERRL, EOMI, no scleral icterus, no conjunctival pallor, significant temporal wasting CV: RRR no rubs or gallops, positive systolic murmur Resp: Lungs CTA BL, no wheezing rales or rhonchi Abd: Soft, mildly tender around insertion site of drain which is draining brown brackish fluid, some serous drainage around the drain insertion site, no organomegaly, no rebound or guarding Extr: No clubbing cyanosis or edema Neuro: CN 2-12 grossly intact, no focal neurologic deficit Psych: Somewhat more depressed and reserved than prior interactions IVs and Medications IV Fluids 300 ml delivered with IV medications Medications Reviewed: Medications were reviewed in detail Lab and Diagnostics Item Value Date Time Red Blood Count 1.97 mil/mm3 L 02/21/17210 Mean Corpuscular Volume 97.0 fL 02/21/17210 Mean Corpuscular Hemoglobin 29.4 pg 02/21/17210 Mean Corpuscular Hemoglobin Concent 30.4 % L 02/21/17210 Red Cell Distribution Width 16.1 % H 02/21/17210 Platelet Count 445 jose eduardo/L H 02/21/17210 Neutrophils (%) (Auto) 60.6 % 02/21/17210 Lymphocytes (%) (Auto) 19.3 % 02/21/17 021 Monocytes (%) (Auto) 17.5 % H 02/21/17210 Eosinophils (%) (Auto) 1.6 % 02/21/17210 Basophils (%) (Auto) 0.6 % 02/21/17210 Calcium Level 8.1 mg/dL L 02/21/17210 Phosphorus Level 3.1 mg/dL 02/21/17210 Magnesium Level 1.8 mg/dL 02/21/17210 Total Bilirubin 0.3 mg/dL 02/21/17210 Aspartate Amino Transf (AST/SGOT) 26 U/L 02/21/17210 Alanine Aminotransferase (ALT/SGPT) 20 U/L 02/21/17210 Alkaline Phosphatase 342 U/L H 02/21/17210 Total Protein 4.2 g/dL L 02/21/17210 Albumin 2.3 g/dL L 02/21/17210 Result Diagram: 02/21/1721002/21/17210 Microbiology Blood culture pending X-Rays, CTs and MRIs X-RAY CHEST ONE VIEW, PORTABLE IMPRESSION: Right upper quadrant surgical drain. Otherwise no significant interval change. Enlarged cardiomediastinal silhouette. Dictated by: Theo Trinidad M.D. on 02/18/2017 at 21:55 Approved by: Theo Trinidad M.D. on 02/18/2017 at 21:56 CT ABDOMEN AND PELVIS WITH CONTRAST IMPRESSION: 1. Increased size of superior multiloculated component of the right hepatic lobe abscess. 2. Decreased, small bilateral pleural effusions. 3. 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 4. Large uterine fibroid is present, as before Dictated by: Junito Cardozo M.D. on 02/19/2017 at 16:05 Approved by: Junito Cardozo M.D. on 02/19/2017 at 16:33 MR ABDOMEN MRCP IMPRESSION: Redemonstration of multiple, complex multiloculated fluid collections within the right lobe of the liver, presumably intrahepatic abscess/biloma. Possible communication with the right intrahepatic biliary tree as discussed above. Please see montage image series (and series 17) for further clarification and recommend close clinical and laboratory correlation as the study is motion degraded with compromised spatial resolution. Dictated by: Andre Herring M.D. on 02/21/2017 at 8:35 Approved by: Andre Herring M.D. on 02/21/2017 at 8:56 . 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 Per Dr. Webber patient has in the past manifested fevers shortly after drain flushing which subsequently resolve spontaneously, concern that the flushing process washes purulent debris back into the abdominal cavity manifesting a transient bacteremia. CT abdomen/pelvis was quite discouraging as it revealed that her multiloculated liver mass is larger and more extensive than at any point in the past, now s/p 70 days of intensive IV antibiotics and multiple drains. 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 Resolved - Followed as an outpatient by infectious disease, the prior source of the infection was likely thought due to endocarditis with echo on 02/05 with noted small filamentous strand at the tips of aortic leaflets. - SIRS positive with tachycardia of 98 and fever of 38.9 Celsius at admission, now resolved - Tachycardia may be explained due to new acute blood loss anemia, and ertapenem is also known to cause drug fevers - Patient denies worsening abdominal pain at site of liver abscess or significant notable change in liver abscess drain output - blood cultures ordered in ED - Continue outpatient antibiotic Linezolid 600 mg twice a day and Ertapenem 1 g daily - Infectious disease consulted from the ED - Per ID evaluation this likely represent transient bacteremia from liver drain flushing procedure Chronic liver abscess, present on admission, ongoing -Liver abscess drain in place -Liver abscess culture previously grew Escherichia coli and Klebsiella. -ID Consult and Abx as noted above -Patient will likely require indefinite antibiotic therapy as she is unable to tolerate surgical intervention -Continuing ertapenem and linezolid described above -Pain control with Dilaudid IV per outpatient schedule from previous hospital records -CT results as above, hepatic mass is larger than previous study -Drain entry site was leaking a small amount of serous fluid, now improved -ID and GI consulting, considering procedure to reposition and perhaps replace drain with larger caliber device to facilitate better drainage, likely scheduled for Friday, should patient acutely decompensate over the weekend transfer to tertiary care center recommended [facility] Acute blood loss anemia, present on admission, stable -Secondary to Hereditary hemorrhagic telangiectasia and likely upper GI bleeding due to AVMs - 5 units PRBCs reserve by EGD - 2U PRBCs transfused on day of admission -Continuing to monitor H/H with transfusions as necessary -We will attempt to reduce number of blood draws. 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 Bynum as an outpatient. -Transfuse below Hg 7. Severe protein calorie malnutrition, present on admission, active -Continue to encourage oral intake. -Nutritional consult placed -BMI 16.6 Hypothyroidism, present on admission, chronic -s/p partial thyroidectomy. -We will continue outpatient [place] Thyroid Disposition: Disposition uncertain at this point given imaging findings, anticipated procedure with sedation 02/24/17, would likely DC back to [place] if condition does not deteriorate, transferred to tertiary care center and additional possibility. Pain Evaluation: Adequate Pain Control GI Prophylaxis: Proton Pump Inhibitor VTE Prophylaxis: SCDs VTE Mechanical Devices: Intermittant Pneumatic CD Resuscitation Status: DNR/DNI:Do Not Resuscitate/Intubate Attending Statement The patient was seen and examined together with Dr. Limon on 02/21/17 and I have added additional information to the note above. Bj Limon DO Feb 21, 2017 16:39 Nano Araujo DO Feb 21, 2017 18:37
--- NOTE | 2017-02-21 18:12 | NUR ---
Blood/procedure Pt finished her blood late this afternoon, given that IV access was an issue. H&H was ordered and pending results. Prior to transfusion it was 5.8. Pt was suppose to go to IR for a liver drain, however given her labs, they were not comfortable taking her at this time and wanted to postpone until Friday. Pt is aware.
[2017-02-22] MEDS: HYDROmorphone 0.5 mg/0.5 mL iSecure Syringe IVPUSH PRN ×4 (03:10→20:57)
[2017-02-22 03:47] VITALS: BP 98/53; PULSE 87; O2SAT 96
[2017-02-22 04:42] LABS: BASOPHILS % (AUTO) 0.9 % (0-3); EOSINOPHILS % (AUTO) 1.8 % (0-5); MONOCYTES % (AUTO) 16.3 % (4-12); Mean Corpuscular Volume 92.5 fL (81-100); Platelet Count 382 bil/L (150-400)
[2017-02-22 04:58] LABS: INR 0.99 ratio
[2017-02-22 05:18] LABS: Magnesium 1.8 mg/dL (1.6-2.6); Phosphorus 3.4 mg/dL (2.5-4.9)
[2017-02-22 08:55] VITALS: BP 89/47; PULSE 84; RESP 16; O2SAT 98
--- NOTE | 2017-02-22 09:00 | NUR ---
IV site IV site continues to stop. Called IV therapy for new IV. Waiting for IV placement to administer blood transfusion. Care continues
[2017-02-22] MEDS: Ertapenem Inj 1,000 MG in 0.9% Sodium Chloride 50 ML IV SCH (09:07)
[2017-02-22] MEDS: Pantoprazole 20 mg ER24 Tablet PO SCH ×2 (09:07→19:57)
--- NOTE | 2017-02-22 12:54 | PCM.PNMED ---
Subjective Date of Service Feb 22, 2017 Subjective Mrs. Ford continues to state that she is getting tired of her repeated hospitalizations. She would still like to pursue aggressive therapy including transfusions for the time being. She has no specific complaints beyond her usual pain at the site of drain insertion and general fatigue. No significant overnight events Comprehensive ROS negative except as listed above. Exam Vital Signs Vital Sign - Last Date Time Temp Pulse Resp B/P Pulse Ox O2 Delivery O2 Flow Rate FiO2 02/22/17 08:55 36.7 84 16 89/47 98 Room Air Intake and Output 02/21/17 02/21/17 02/22/17 Cumulative From/Thru 15:00 23:00 07:00 02/18/17 19:01 - 02/22/17 06:36 Intake Total 350 ml 100 ml 5555 ml Output Total 650 ml 2900 ml Balance 350 ml -550 ml 2655 ml Intake Oral 100 ml 1840 ml IV Total 50 ml 1790 ml TPN/PPN 1075 ml Packed Cells 300 ml 850 ml Output Urine Total 650 ml 2900 ml # Voids 2 # Bowel Movements 3 Exam Gen: A/O x3 pleasant cooperative elderly cachectic woman in NAD Neck: Supple, non tender, no JVD, Full ROM HEENT: PERRL, EOMI, no scleral icterus, no conjunctival pallor, significant temporal wasting CV: RRR no rubs or gallops, positive systolic murmur Resp: Lungs CTA BL, no wheezing rales or rhonchi Abd: Soft, mildly tender around insertion site of drain which is draining brown blackish fluid, some serous drainage around the drain insertion site, no organomegaly, no rebound or guarding Extr: No clubbing cyanosis or edema Neuro: CN 2-12 grossly intact, no focal neurologic deficit Psych: Slightly sleepy and less interactive than usual this AM IVs and Medications IV Fluids 50 ml NS delivered with IV medications. Medications Reviewed: Medications were reviewed in detail Lab and Diagnostics Item Value Date Time Red Blood Count 2.53 mil/mm3 L 02/22/17 043 Mean Corpuscular Volume 92.5 fL 02/22/17 043 Mean Corpuscular Hemoglobin 30.0 pg 02/22/17431 Mean Corpuscular Hemoglobin Concent 32.5 % 02/22/17 043 Red Cell Distribution Width 15.6 % H 02/22/17 0432 Neutrophils (%) (Auto) 62.0 % 02/22/17431 Lymphocytes (%) (Auto) 18.8 % 02/22/17431 Monocytes (%) (Auto) 16.3 % H 02/22/17431 Eosinophils (%) (Auto) 1.8 % 02/22/17431 Basophils (%) (Auto) 0.9 % 02/22/17431 Calcium Level 8.7 mg/dL 02/22/17431 Phosphorus Level 3.4 mg/dL 02/22/17431 Magnesium Level 1.8 mg/dL 02/22/17431 Total Bilirubin 0.8 mg/dL 02/22/17431 Aspartate Amino Transf (AST/SGOT) 18 U/L 02/22/17431 Alanine Aminotransferase (ALT/SGPT) 17 U/L 02/22/17431 Alkaline Phosphatase 325 U/L H 02/22/17431 Total Protein 4.4 g/dL L 02/22/17431 Albumin 2.3 g/dL L 02/22/17431 Result Diagram: 02/22/1743102/22/17431 Microbiology Blood culture negative at 2 days X-Rays, CTs and MRIs X-RAY CHEST ONE VIEW, PORTABLE IMPRESSION: Right upper quadrant surgical drain. Otherwise no significant interval change. Enlarged cardiomediastinal silhouette. Dictated by: Theo Trinidad M.D. on 02/18/2017 at 21:55 Approved by: Theo Trinidad M.D. on 02/18/2017 at 21:56 CT ABDOMEN AND PELVIS WITH CONTRAST IMPRESSION: 1. Increased size of superior multiloculated component of the right hepatic lobe abscess. 2. Decreased, small bilateral pleural effusions. 3. 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 4. Large uterine fibroid is present, as before Dictated by: Junito Cardozo M.D. on 02/19/2017 at 16:05 Approved by: Junito Cardozo M.D. on 02/19/2017 at 16:33 MR ABDOMEN MRCP IMPRESSION: Redemonstration of multiple, complex multiloculated fluid collections within the right lobe of the liver, presumably intrahepatic abscess/biloma. Possible communication with the right intrahepatic biliary tree as discussed above. Please see montage image series (and series 17) for further clarification and recommend close clinical and laboratory correlation as the study is motion degraded with compromised spatial resolution. Dictated by: Andre Herring M.D. on 02/21/2017 at 8:35 Approved by: Andre Herring M.D. on 02/21/2017 at 8:56 . 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 Per Dr. Webber patient has in the past manifested fevers shortly after drain flushing which subsequently resolve spontaneously, concern that the flushing process washes purulent debris back into the abdominal cavity manifesting a transient bacteremia. CT abdomen/pelvis was quite discouraging as it revealed that her multiloculated liver mass is larger and more extensive than at any point in the past, now s/p 70 days of intensive IV antibiotics and multiple drains. 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 Resolved - Followed as an outpatient by infectious disease, the prior source of the infection was likely thought due to endocarditis with echo on 02/05 with noted small filamentous strand at the tips of aortic leaflets. - Further infectious etiology was likely secondary to GI perforation secondary to attempt to ablate bleeding telangiectasia which is the likely original source of her Hepatic abscess - SIRS positive with tachycardia of 98 and fever of 38.9 Celsius at admission, now resolved - Tachycardia may be explained due to new acute blood loss anemia, and ertapenem is also known to cause drug fevers - Patient denies worsening abdominal pain at site of liver abscess or significant notable change in liver abscess drain output - Continue outpatient antibiotic Linezolid 600 mg twice a day and Ertapenem 1 g daily - Infectious disease consulted from the ED - Per ID evaluation this likely represent transient bacteremia from liver drain flushing procedure Chronic liver abscess, present on admission, ongoing -Liver abscess drain in place suboptimally positioned -Liver abscess culture previously grew Escherichia coli and Klebsiella. -ID Consult and Abx as noted above -Patient will likely require indefinite antibiotic therapy as she is unable to tolerate surgical intervention -Continuing ertapenem and linezolid described above -Pain control with Dilaudid IV per outpatient schedule from previous hospital records -CT results as above, hepatic mass is larger than previous study -Drain entry site was leaking a small amount of serous fluid, now improved -ID and GI consulting, considering procedure to reposition and perhaps replace drain with larger caliber device to facilitate better drainage, likely scheduled for Friday, should patient acutely decompensate over the weekend transfer to tertiary care center recommended [facility] Acute blood loss anemia, present on admission, stable -Secondary to Hereditary hemorrhagic telangiectasia and likely upper GI bleeding due to AVMs -5 units PRBCs reserve by EGD -Transfuse 2 units today (02/22/17) -2U PRBCs transfused on day of admission -Continuing to monitor H/H with transfusions as necessary -We will attempt to reduce number of blood draws. 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 Bynum as an outpatient. -Transfuse below Hg 7. Severe protein calorie malnutrition, present on admission, active -Continue to encourage oral intake. -Nutritional consult placed -BMI 16.6 Hypothyroidism, present on admission, chronic -s/p partial thyroidectomy. -We will continue outpatient [place] Thyroid Disposition: Disposition uncertain at this point given imaging findings, anticipated procedure with sedation 02/24/17, would likely DC back to [place] if condition does not deteriorate, transferred to tertiary care center and additional possibility. Pain Evaluation: Adequate Pain Control GI Prophylaxis: Proton Pump Inhibitor VTE Prophylaxis: SCDs VTE Mechanical Devices: Intermittant Pneumatic CD Resuscitation Status: DNR/DNI:Do Not Resuscitate/Intubate Attending Statement The patient was seen and examined together with Dr. Limon on 02/22/17 and I have added additional information to the note above. Bj Limon DO Feb 22, 2017 12:54 Nano Araujo DO Feb 22, 2017 15:20
--- NOTE | 2017-02-22 13:12 | PCM.PNMED ---
Subjective Date of Service Feb 22, 2017 Subjective Patient offers no complaints She did receive blood this morning Denies any overt bleeding Exam Vital Signs Vital Sign - Last Date Time Temp Pulse Resp B/P Pulse Ox O2 Delivery O2 Flow Rate FiO2 02/22/17 08:55 36.7 84 16 89/47 98 Room Air Intake and Output 02/21/17 02/21/17 02/22/17 Cumulative From/Thru 15:00 23:00 07:00 02/18/17 19:01 - 02/22/17 06:36 Intake Total 350 ml 100 ml 5555 ml Output Total 650 ml 2900 ml Balance 350 ml -550 ml 2655 ml Intake Oral 100 ml 1840 ml IV Total 50 ml 1790 ml TPN/PPN 1075 ml Packed Cells 300 ml 850 ml Output Urine Total 650 ml 2900 ml # Voids 2 # Bowel Movements 3 Exam Generally she appears cachectic, she is sitting on the side of the bed waiting for assistance to go to the bathroom HEENT no icterus mild pallor Chest exam clear to auscultation bilaterally Cardiovascular exam S1-S2 heard Abdomen she has a drain on the right side of the abdomen, the back trains very minimal bilious-appearing fluid, abdomen is soft and nontender Cannot find any documentation about output from the drain overnight Lab and Diagnostics Result Diagram: 02/22/17 0432 02/22/17 043 Microbiology Blood culture negative at 2 days X-Rays, CTs and MRIs X-RAY CHEST ONE VIEW, PORTABLE IMPRESSION: Right upper quadrant surgical drain. Otherwise no significant interval change. Enlarged cardiomediastinal silhouette. Dictated by: Theo Trinidad M.D. on 02/18/2017 at 21:55 Approved by: Theo Trinidad M.D. on 02/18/2017 at 21:56 CT ABDOMEN AND PELVIS WITH CONTRAST IMPRESSION: 1. Increased size of superior multiloculated component of the right hepatic lobe abscess. 2. Decreased, small bilateral pleural effusions. 3. 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 4. Large uterine fibroid is present, as before Dictated by: Junito Cardozo M.D. on 02/19/2017 at 16:05 Approved by: Junito Cardozo M.D. on 02/19/2017 at 16:33 MR ABDOMEN MRCP IMPRESSION: Redemonstration of multiple, complex multiloculated fluid collections within the right lobe of the liver, presumably intrahepatic abscess/biloma. Possible communication with the right intrahepatic biliary tree as discussed above. Please see montage image series (and series 17) for further clarification and recommend close clinical and laboratory correlation as the study is motion degraded with compromised spatial resolution. Dictated by: Andre Herrnig M.D. on 02/21/2017 at 8:35 Approved by: Andre Herring M.D. on 02/21/2017 at 8:56 . Assessment & Plan Chronic hepatic abscess -Plans are noted for possible repositioning the draining into the loculated fluid collection on Friday by interventional radiology -Continue antibiotics as per the infectious disease team H HT -No reported bleeding -Follow H&H and transfuse blood products as needed - If she should have overt bleeding within likely recommend transfer to [facility] for further treatment GI Prophylaxis: Proton Pump Inhibitor VTE Prophylaxis: SCDs VTE Mechanical Devices: Intermittant Pneumatic CD Resuscitation Status: DNR/DNI:Do Not Resuscitate/Intubate Abdoulaye Peraza MD Feb 22, 2017 13:12 - SIRS positive with tachycardia of 98 and fever of 38.9 Celsius at admission, now resolved - Tachycardia may be explained due to new acute blood loss anemia, and ertapenem is also known to cause drug fevers - Patient denies worsening abdominal pain at site of liver abscess or significant notable change in liver abscess drain output - Continue outpatient antibiotic Linezolid 600 mg twice a day and Ertapenem 1 g daily - Infectious disease consulted from the ED - Per ID evaluation this likely represent transient bacteremia from liver drain flushing procedure Chronic liver abscess, present on admission, ongoing -Liver abscess drain in place suboptimally positioned -Liver abscess culture previously grew Escherichia coli and Klebsiella. -ID Consult and Abx as noted above -Patient will likely require indefinite antibiotic therapy as she is unable to tolerate surgical intervention -Continuing ertapenem and linezolid described above -Pain control with Dilaudid IV per outpatient schedule from previous hospital records -CT results as above, hepatic mass is larger than previous study -Drain entry site was leaking a small amount of serous fluid, now improved -ID and GI consulting, considering procedure to reposition and perhaps replace drain with larger caliber device to facilitate better drainage, likely scheduled for Friday, should patient acutely decompensate over the weekend transfer to tertiary care center recommended [facility] Acute blood loss anemia, present on admission, stable -Secondary to Hereditary hemorrhagic telangiectasia and likely upper GI bleeding due to AVMs -5 units PRBCs reserve by EGD -2U PRBCs transfused on day of admission -Continuing to monitor H/H with transfusions as necessary -We will attempt to reduce number of blood draws. 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 Bynmu as an outpatient. -Transfuse below Hg 7. Severe protein calorie malnutrition, present on admission, active -Continue to encourage oral intake. -Nutritional consult placed -BMI 16.6 Hypothyroidism, present on admission, chronic -s/p partial thyroidectomy. -We will continue outpatient [place] Thyroid Disposition: Disposition uncertain at this point given imaging findings, anticipated procedure with sedation 02/24/17, would likely DC back to [place] if condition does not deteriorate, transferred to tertiary care center and additional possibility. GI Prophylaxis: Proton Pump Inhibitor VTE Prophylaxis: SCDs VTE Mechanical Devices: Intermittant Pneumatic CD Resuscitation Status: DNR/DNI:Do Not Resuscitate/Intubate Abdoulaye Peraza MD Feb 22, 2017 13:12
[2017-02-22 13:21] VITALS: BP 108/56; PULSE 88; RESP 18
[2017-02-22 13:45] VITALS: BP 108/57; PULSE 89; RESP 16; O2SAT 99
--- NOTE | 2017-02-22 15:25 | NUR ---
[facility]gned
--- NOTE | 2017-02-22 15:32 | NUR ---
Social Work: Continued Discharge Planning D: Pt discussed in am rounds. Pt is not yet medically stable for discharge and is scheduled to have a larger drain placed on Friday. Pt will be here through the weekend. READINESS PARAPROFESSIONAL met with the patient at bedside to assess for unmet needs. Pt remains I to the [facility] and reports that she feels stable. Her plan remains to return to [facility] with resumed HH through [facility]. Pt has also been completing [place] [facility] and will continue to go there if she is discharged before her ABX cycle is finished. Pt was supposed to follow up with Dr. Webber on February 26 to determine if she could switch to oral abx or needed to remain on IV. A: Pt who is I at baseline. P: Anticipate pt to return back to [facility] with [facility] for RN, PT and IV AB[place] at [facility] likely. READINESS PARAPROFESSIONAL to continue to follow. SOHAN Tenorio
[2017-02-22 17:03] VITALS: BP 106/59; PULSE 93; RESP 16
[2017-02-22 20:00] VITALS: BP 115/65; PULSE 89; RESP 20; O2SAT 99
[2017-02-23] MEDS: HYDROmorphone 0.5 mg/0.5 mL iSecure Syringe IVPUSH PRN ×4 (02:44→23:26)
[2017-02-23 03:09] LABS: BASOPHILS % (AUTO) 0.5 % (0-3); EOSINOPHILS % (AUTO) 2.1 % (0-5); MONOCYTES % (AUTO) 16.5 % (4-12); Mean Corpuscular Hemoglobin 29.4 pg (27.0-35.0); Mean Corpuscular Volume 91.6 fL (81-100); NEUTROPHILS % (AUTO) 60.4 % (40-74); Platelet Count 352 bil/L (150-400)
[2017-02-23 03:25] LABS: INR 0.97 ratio
[2017-02-23 03:28] VITALS: BP 102/55; PULSE 80; RESP 18; O2SAT 95
[2017-02-23 03:36] LABS: Magnesium 1.8 mg/dL (1.6-2.6); Phosphorus 3.5 mg/dL (2.5-4.9)
--- NOTE | 2017-02-23 04:25 | NUR ---
Pain Pt c/o more frequent pain today, compared to last night. Pt notes this increase as well. Pain is located in abdomen r/t drain. Drain examined, dressing CDI, minimal green output. Medicated as needed with Dilaudid IV per orders, effective each time, pt sleeping on and off throughout shift.
[2017-02-23 07:55] VITALS: BP 103/48; PULSE 81; RESP 16; O2SAT 96
[2017-02-23] MEDS: Pantoprazole 20 mg ER24 Tablet PO SCH ×2 (08:04→19:51)
[2017-02-23] MEDS: Ertapenem Inj 1,000 MG in 0.9% Sodium Chloride 50 ML IV SCH (08:05)
[2017-02-23] MEDS: Ondansetron 2 mg/mL 2 mL Inj IVPUSH PRN (10:15)
--- NOTE | 2017-02-23 10:22 | NUR ---
Nausea/Pain Pt complaining of nausea after breakfast, states she can't eat as much as she has been. Administered 4 mg Zofran IV. Repositioned pt. Pt states pain last night was stronger than her norm. States this am she is not in pain. Care continues.
--- NOTE | 2017-02-23 11:10 | PCM.PNMED ---
Subjective Date of Service Feb 23, 2017 Subjective Overnight did well except for some additional pain at the port site that was solved with oxycodone. Dr. Lopez continues to follow with us and recommends that should the patient have a large bleed that she should be transferred. Otherwise patient is inquisitive about her upcoming procedure. She should be NPO at midnight. Denies additional ROS. Exam Vital Signs Vital Sign - Last Date Time Temp Pulse Resp B/P Pulse Ox O2 Delivery O2 Flow Rate FiO2 02/23/17 07:55 36.6 81 16 103/48 96 Room Air Intake and Output 02/22/17 02/22/17 02/23/17 Cumulative From/Thru 15:00 23:00 07:00 02/18/17 19:01 - 02/23/17 06:14 Intake Total 425 ml 200 ml 6180 ml Output Total 1250 ml 4150 ml Balance 425 ml -1050 ml 2030 ml Intake Oral 200 ml 2040 ml IV Total 125 ml 1915 ml TPN/PPN 1075 ml Packed Cells 300 ml 1150 ml Output Urine Total 1250 ml 4150 ml # Voids 2 # Bowel Movements 3 Exam Gen: A/O x3 pleasant cooperative elderly cachectic woman in NAD CV: RRR WITH SYSTOLIC MURMUR Resp: Lungs CTA BL, no wheezing rales or rhonchi Abd: Soft, mildly tender around insertion site of drain which is draining alaniz fluid Extr: No clubbing cyanosis or edema Neuro: CN 2-12 grossly intact, no focal neurologic deficit Psych: appropriate mood and affect IVs and Medications Medications Reviewed: Medications were reviewed in detail Lab and Diagnostics Result Diagram: 02/23/17 0242 02/23/17 0242 Microbiology Blood culture negative at 2 days X-Rays, CTs and MRIs X-RAY CHEST ONE VIEW, PORTABLE IMPRESSION: Right upper quadrant surgical drain. Otherwise no significant interval change. Enlarged cardiomediastinal silhouette. Dictated by: Theo Trinidad M.D. on 02/18/2017 at 21:55 Approved by: Theo Trinidad M.D. on 02/18/2017 at 21:56 CT ABDOMEN AND PELVIS WITH CONTRAST IMPRESSION: 1. Increased size of superior multiloculated component of the right hepatic lobe abscess. 2. Decreased, small bilateral pleural effusions. 3. 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 4. Large uterine fibroid is present, as before Dictated by: Junito Cardozo M.D. on 02/19/2017 at 16:05 Approved by: Junito Cardozo M.D. on 02/19/2017 at 16:33 MR ABDOMEN MRCP IMPRESSION: Redemonstration of multiple, complex multiloculated fluid collections within the right lobe of the liver, presumably intrahepatic abscess/biloma. Possible communication with the right intrahepatic biliary tree as discussed above. Please see montage image series (and series 17) for further clarification and recommend close clinical and laboratory correlation as the study is motion degraded with compromised spatial resolution. Dictated by: Andre Herring M.D. on 02/21/2017 at 8:35 Approved by: Andre Herring M.D. on 02/21/2017 at 8:56 . 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 Per Dr. Webber patient has in the past manifested fevers shortly after drain flushing which subsequently resolve spontaneously, concern that the flushing process washes purulent debris back into the abdominal cavity manifesting a transient bacteremia. CT abdomen/pelvis was quite discouraging as it revealed that her multiloculated liver mass is larger and more extensive than at any point in the past, now s/p 70 days of intensive IV antibiotics and multiple drains. Chronic liver abscess, present on admission, ongoing -Liver abscess drain in place suboptimally positioned; culture previously grew Escherichia coli and Klebsiella. -Patient will likely require indefinite antibiotic therapy as she is unable to tolerate surgical intervention -Morphine and oxycodone for pain -Repeat CT shows increase in abscess/mass -GI planning for drain revision vs possible intrabiliary drain on 02/24/17 New onset fevers with recent history of VRE bacteremia with questionable endocarditis, POA, acute. Resolved - SIRS positive with tachycardia of 98 and fever of 38.9 Celsius at admission, now resolved - Patient denies worsening abdominal pain at site of liver abscess or significant notable change in liver abscess drain output; follow by ID outpatient - Continue Linezolid and Ertapenem per outpatient regimen - Infectious disease consulted from the ED - Per ID evaluation this likely represent transient bacteremia from liver drain flushing procedure Acute blood loss anemia, present on admission, stable -Secondary to Hereditary hemorrhagic telangiectasia and likely upper GI bleeding due to AVMs -5 units PRBCs reserve by EGD; received 2 units 02/22/17 -Continuing to monitor H/H with transfusions as necessary Hereditary hemorrhagic telangiectasia, present on admission, ongoing -Followed by Dr. Bynum as an outpatient. -Transfuse below Hg 7. Severe protein calorie malnutrition, present on admission, active -Patient improving oral intake -Nutritional consult placed -BMI 16.6 Hypothyroidism, present on admission, chronic -s/p partial thyroidectomy. -We will continue outpatient [place] Thyroid Disposition: Pt going for procedure with GI/IR on friday02/24/17. Discharge timeline uncertain. Eventual plan will be d/c back to [facility]. GI Prophylaxis: Proton Pump Inhibitor VTE Prophylaxis: SCDs VTE Mechanical Devices: Intermittant Pneumatic CD Resuscitation Status: DNR/DNI:Do Not Resuscitate/Intubate Attending Statement The patient was seen and examined together with Dr. Jones on 02/23/17 and I agree with the history, exam and plan as outlined in the note above. Richard Jones DO Feb 23, 2017 11:10 Nano Araujo DO Feb 23, 2017 15:09
[2017-02-23 12:49] VITALS: BP 94/52; PULSE 92; RESP 20; O2SAT 98
[2017-02-23 16:23] VITALS: BP 98/57; PULSE 62; RESP 18; O2SAT 98
[2017-02-23 19:55] VITALS: BP 112/54; PULSE 91; RESP 18; O2SAT 97
[2017-02-23 23:24] VITALS: BP 109/52; PULSE 91; RESP 16; O2SAT 99
[2017-02-24] VITALS (10 sets, daily range): BP systolic 92–110; BP diastolic 33–59; PULSE 78–90; RESP 12–20; O2SAT 96–99
[2017-02-24 02:37] LABS: BASOPHILS % (AUTO) 1.4 % (0-3); EOSINOPHILS % (AUTO) 2.8 % (0-5); MONOCYTES % (AUTO) 17.5 % (4-12); Mean Corpuscular Hemoglobin 28.9 pg (27.0-35.0); Mean Corpuscular Volume 92.9 fL (81-100); NEUTROPHILS % (AUTO) 52.4 % (40-74); Platelet Count 364 bil/L (150-400)
[2017-02-24 02:50] LABS: INR 1.01 ratio
[2017-02-24] MEDS: HYDROmorphone 0.5 mg/0.5 mL iSecure Syringe IVPUSH PRN ×5 (02:51→23:40)
[2017-02-24 03:20] LABS: Magnesium 1.8 mg/dL (1.6-2.6); Phosphorus 3.4 mg/dL (2.5-4.9)
[2017-02-24] MEDS: Pantoprazole 20 mg ER24 Tablet PO SCH ×2 (08:20→19:25)
[2017-02-24] MEDS: Ertapenem Inj 1,000 MG in 0.9% Sodium Chloride 50 ML IV SCH (08:21)
--- NOTE | 2017-02-24 10:47 | PROG NOTE ---
[address] [address] PROGRESS NOTE PATIENT: STEWART UREÑA : 1935 MR#: [id number] ADMIT: 02/18/2017 JOB ID: [id number] DATE: 02/24/2017 REASON FOR FOLLOW UP: Hepatic abscess with biloma. INTERVAL HISTORY: Over the weekend, the patient has required additional transfusions of blood because of her progressive anemia due to HHT. Otherwise she has had no fevers, chills, or sweats. She reports generally poor appetite and continued weight loss unfortunately. Today she is n.p.o. as IR is planning to place a new drain. She has had no fevers or chills over the weekend. No abdominal pain. PHYSICAL EXAMINATION: Reveals an afebrile woman. Temp 36.8, pulse 85, respiratory rate 16, blood pressure 110/52. She is saturating well on room air. She is in no distress, but she is very wasted and pale. Conjunctivae are moderately pale despite receiving 3 units of blood overnight. The oral cavity without change. Lungs are clear. Abdomen with a drain in right upper quadrant. No focal tenderness or masses are noted. DIAGNOSTIC STUDIES: Labs include white count 3600, hematocrit 24, and that was before some of these units of blood. Platelets 364 and stable. Creatinine less than 0.3. Alk phos 403. Urinalysis without white cells. Micro studies no new positive cultures. MRCP was previously discussed and reviewed with Radiology. I discussed the imaging with IR this morning. IMPRESSION: Little change in this incredibly complex case with a gram-negative bacteremic liver abscess complicated by biloma and eventually vancomycin-resistant Enterococci bacteremia. RECOMMENDATIONS: 1. Continue with linezolid and ertapenem. 2. The patient is going to undergo additional Interventional Radiology work with plans to replace or reposition a larger drain. 3. Will continue to closely follow this complex case with you.
[2017-02-24] MEDS ORDERED: Heparin 10,000 Unit/1,000 mL NS Premix IV ONE (12:16)
[2017-02-24] MEDS ORDERED: 0.9% Sodium Chloride 1,000 ML ONE (12:16)
[2017-02-24] MEDS ORDERED: Lactated Ringer's 1,000 ML IV SCH (12:17)
[2017-02-24] MEDS ORDERED: Lactated Ringer's 500 ML IV PRN (12:17)
--- NOTE | 2017-02-24 12:17 | PCM.HPANE ---
Patient Data Date of Service: Feb 24, 2017 Surgeon Admitting Provider:Je Garcia MD Attending Provider:Je Garcia MD Primary Care Physician:Macy Baird MD Other Provider: Reason for Visit Liver Abscess, Sepsis Ht/WT & BMI Height (Feet): 5 Height (Inches): 3.00 Weight (Kilograms): 36.500 Body Mass Index 15.23 Allergies Coded Allergies: No Known Allergies (Verified , 02/18/17) Past Anesthesia History Anesthesia History: Denies:: Abnormal Airway, Anesthesia Reactions, Difficult Intubation, Fam Anesthesia Reaction, Fam Malignant Hypertherm, Malignant Hyperthermia Diabetes History Hx Diabetes?: No MRSA MRSA: No Medications Hypertension Medication: No Active Scripts Linezolid 600 Mg [id number] Mg PO BID #30 TABLET Prov:Bj Limon DO 02/13/17 Dronabinol 2.5 Mg Capsule5 Mg PO TIDAC #90 CAPSULE Prov:Bj Limon DO 02/13/17 Reported Medications Bisacodyl (Dulcolax Rectal)10 Mg Supp.rect10 Mg RC DAILY PRN For Constipation For no BM after MOM 02/04/17 Polyethylene Glycol 3350 (Miralax)17 Gm Powd.pack17 Gm PO DAILY 12/17/16 Ondansetron ODT 4 Mg Tab.rapdis4 Mg PO Q4H PRN For Nausea 12/17/16 Thyroid,Pork ([place] Thyroid)60 Mg Olzmtf59 Mg PO DAILY 12/17/[address] 20 Mg Tablet.dr20 Mg PO BID 12/17/16 Discontinued Reported Medications Magnesium Hydroxide (Milk of Magnesia)400 Mg/5 Ml Oral.susp30 Ml PO PRN For Constipation 02/04/17 Na Phos,M-B/Na Phos,Di-Ba (Fleet Enema)133 Ml Nwguh376 Ml RC PRN For Constipation For no BM after Dulcolax Suppository 02/04/17 History History of ENT Problems?: Yes HEENT History: Positive for:: Cataracts (Cataract removal approx. 10yrs ago) Denies:: Abnormal Airway Difficult Intubation Dysphagia Glaucoma ( ) Hearing Problem Sinus Problem Denture Type: None Teeth Condition: Within Normal Limits Hx of Heart Problems?: No Cardiovascular History: Positive for:: Edema (slight pedal edema in both feet) Denies:: AICD Abdominal Aortic Aneurism Atrial Fibrillation Cardiac Surgery Chest Pain Congestive Heart Failure Heart Murmur Hypertension Irregular Heartbeat Pacemaker Rheumatic Fever Thrombophlebitis Valvular Heart Disease Hx of Respiratory Problem?: Yes Respiratory History: Positive for:: Pneumonia (age 13) Denies:: Asthma COPD Chest Surgery Cough Dyspnea Emphysema Hemoptysis Oxygen Administration Pulmonary Embolism Tuberculosis Use of C-PAP Machine Hx Neurologic Problems?: No Neurological History: Denies:: Alzheimer's Disease CVA Dementia Dizziness Headaches Multiple Sclerosis Parkinson's Disease Seizures Hx of GI Problems?: Yes Hx of Problems?: No Genitourinary History: Denies:: HX of Hemodialysis Kidney Stones Urinary Tract Infection HX of Peritoneal Dialysis: No Female Hx: Denies:: Currently Endometriosis Pelvic Inflammatory Problems with Breasts? Skin History: Denies:: History Skin Disorders? Pressure Ulcers Hx Musculoskeletal Problems?: No Musculoskeletal History: Denies:: Back Injury Degenerative Joint Joint Replacement Musculoskeletal Trauma Systemic Lupus Hx of Psycho/Social Problems?: No Psycho Social History: Denies:: Anxiety Bipolar Disorder Hx Depression Suicide Attempt Hx Surgeries?: Yes (Cataract removal, stomach repair in Oct 2016) Hx Any Other Health Problems?: Yes Other History: Positive for:: Hospitalization (infection) Thyroid Disease (partial thyroid removed) Denies:: Cancer Endocrine Disease History Blood Transfusions: Positive for:: Accept Blood Products? Blood Transfusions Denies:: Blood Transfuse Reaction Hx Diabetes: No Occupation: retiredHx Alcohol Use: Yes ("socially, very rarely")Hx Substance Use: No Smoking Status: Never Smoker Stop/Bang Treated for Sleep Apnea?: No Do You Have a CPAP Machine?: No S-Snoring: Do You Snore Loudly: No T-Tired: feel tired, fatigued: Yes O-Obsered: Observed not breath: No P-Blood Pressure: treated: No B- Body Mass Index > 35 kg/m2: No A- Age over 50: Yes N- Neck Large Circumference: No G- Gender Male: No SHAREE Total Score: 1 SHAREE Risk Assessment: Low Risk, <3 Yes Risk Assessment Category Category 1A: Patient has history of documented sleep apnea, and HAS NOT received any narcotic, sedative or anesthesia administration during this stay. Category 1B: Patient has history of documented sleep apnea, and HAS received any narcotic , sedative or anesthesia administration during this stay Category 2: Patient has SUSPECTED Obstructive Sleep Apnea, and HAS received any narcotic , sedative or anesthesia administration during this stay. Category 3: Patient has SUSPECTED Obstructive Sleep Apnea and HAS NOT received narcotic, sedative or anesthesia administration during this stay. Category 4: Outpatient in Procedural Areas with known sleep apnea or who screen positive for High Risk via the STOP/BANG questionnaire. Exam Exam Vital Signs Vital Signs Date Time Temp Pulse Resp B/P Pulse Ox O2 Delivery O2 Flow Rate FiO2 02/24/17 08:33 36.8 02/24/17 08:29 85 110/52 96 Room Air General Appearance: Alert, Oriented X3, Cooperative, No Acute Distress HEENT/AIRWAY: MP 2 Lungs: Normal Air Movement Heart: Exam Unremarkable Meds/Labs/Diagnostics Labs Test 02/18/17 20:55 02/18/17 21:46 02/19/17 00:30 02/24/17 02:10 Band Neutrophils % 0% (1-5) Lactic Acid Level 1.1mmol/L (0.4-2.0) Pro-B-Type Natriuretic Peptide 211.5pg/mL (0-738) Urine Color Yellow (YELLOW) Urine Appearance Cloudy (CLEAR,HAZY) Urine pH 8.0 (5.0-8.0) Urine Specific [place] 1.015 (1.003-1.035) Urine Protein Negativemg/dL (NEG,TRACE) Urine Glucose (UA) Negativemg/dL (NEGATIVE) Urine Ketones Negativemg/dL (NEGATIVE) Urine Occult Blood Negative (NEGATIVE) Urine Nitrite Negative (NEGATIVE) Urine Bilirubin Negative (NEGATIVE) Urine Urobilinogen Normalmg/dL (NORMAL) Urine Leukocyte Esterase Negative (NEGATIVE) Urine RBC 0-2/hpf (0-2) Urine WBC 0-5/hpf (0-5) Urine Epithelial Cells Few/hpf (NONE-MOD) Urine Crystals Amorphous phosphates Urine Bacteria None/hpf (NONE-FEW) Urine Hyaline Casts None/lpf (NONE) Urine Granular Casts None seen (NONE SEEN) Urine Waxy Casts None seen (NONE SEEN) Urine Red Blood Cell Casts None seen (NONE SEEN) Urine White Blood Cell Casts None seen (NONE SEEN) Urine Mucus None seen (None Seen) Urine Trichomonas None seen (NONE SEEN) Urine Yeast None (NONE SEEN) Urine Culture Reflexed Not indicated Hold Urine Received (Received) White Blood Count 3.6th/mm3 (3.8-10.1) Red Blood Count 2.53mil/mm3 (3.90-5.20) Hemoglobin 7.3g/dL (12.0-15.6) Hematocrit 23.5% (35.0-46.0) Mean Corpuscular Volume 92.9fL (81-100) Mean Corpuscular Hemoglobin 28.9pg (27.0-35.0) Mean Corpuscular Hemoglobin Concent 31.1% (32.0-37.0) Red Cell Distribution Width 15.3% (12.3-15.4) Platelet Count 364bil/L (150-400) Neutrophils (%) (Auto) 52.4% (40-74) Lymphocytes (%) (Auto) 25.6% (14-46) Monocytes (%) (Auto) 17.5% (4-12) Eosinophils (%) (Auto) 2.8% (0-5) Basophils (%) (Auto) 1.4% (0-3) Prothrombin Time 10.8sec (8.1-12.5) Prothromb Time International Ratio 1.01ratio Sodium Level 135mEq/L (134-144) Potassium Level 4.3mEq/L (3.5-5.2) Chloride Level 101mEq/L (97-108) Carbon Dioxide Level 26mmol/L (18-29) Blood Urea Nitrogen 20mg/dL (8-27) Creatinine < 0.30mg/dL (0.57-1.00) Estimat Glomerular Filtration Rate mL/min (>59) Glucose Level 104mg/dL (60-99) Calcium Level 9.0mg/dL (8.5-10.1) Phosphorus Level 3.4mg/dL (2.5-4.9) Magnesium Level 1.8mg/dL (1.6-2.6) Total Bilirubin 0.3mg/dL (0.0-1.2) Aspartate Amino Transf (AST/SGOT) 23U/L (0-50) Alanine Aminotransferase (ALT/SGPT) 20U/L (0-32) Alkaline Phosphatase 403U/L (25-165) Total Protein 4.5g/dL (6.4-8.4) Albumin 2.5g/dL (3.4-5.0) Procalcitonin 0.07ng/mL (0.00-0.08) Plan Impression Patient chart reviewed, patient interviewed and anesthestic plan with risks, benefits, and alternatives discussed, and informed consent obtained. NPO per Anesth. Guidelines: Yes ASA Physical Status: ASA3 Severe Disease Anesthetic Plan: MAC Bene/Risks/Altern/Consents: Yes HP Complete Prior to Induction: Yes Nelson Moreland MD Feb 24, 2017 12:00
[2017-02-24] MEDS ORDERED: MetoCLOpramide 5 mg/mL 2 mL Inj IVPUSH PRN (12:20)
[2017-02-24] MEDS ORDERED: fentaNYL-PF 50 mCg/mL 2 mL Inj IVPUSH PRN (12:20)
[2017-02-24] MEDS ORDERED: EPHEDrine Sulfate 50 mg/mL Inj IVPUSH PRN (12:20)
[2017-02-24] MEDS ORDERED: Ondansetron 2 mg/mL 2 mL Inj IVPUSH PRN (12:20)
[2017-02-24] MEDS ORDERED: Dexamethasone 4 mg/mL Inj IVPUSH PRN (12:20)
[2017-02-24] MEDS ORDERED: Phenylephrine 10,000 mCg/mL Inj IVPUSH PRN (12:20)
[2017-02-24] MEDS ORDERED: Propofol 10 mg/mL 20 mL Inj ONE (12:39)
[2017-02-24] MEDS ORDERED: fentaNYL-PF 50 mCg/mL 2 mL Inj ONE (12:39)
[2017-02-24] MEDS ORDERED: Ondansetron 2 mg/mL 2 mL Inj ONE (12:39)
--- NOTE | 2017-02-24 13:30 | NUR ---
process laboratory specialist procedure completed - readjustment of bile drain per Dr Joel. No new drain. Drain is secured with a stay fix dressing, scant dark red blood in tube, scant dark blood drainage in bag. Pain level down from a 12/16 to a 09/17.. Transfer report to be called to RN for 2001.
--- NOTE | 2017-02-24 13:40 | PCM.ANEP1 ---
Post Anesthesia PACU Phase 1 Assessment Date of Service: Feb 24, 2017 Vital Signs Vital Signs Date Time Temp Pulse Resp B/P Pulse Ox O2 Delivery O2 Flow Rate FiO2 02/24/17 08:33 36.8 02/24/17 08:29 85 110/52 96 Room Air 98% 82 16 101/33 36.5 Anesthetic Administered: GA Level of Alertness: Awake, talking HERNANDEZ's with Equal Strength: Yes Pain: No Pain Scale Score: 0 Nausea or Vomiting: No CV Function & Hydration Stable: Yes Airway Device: Oxygen Delivery: Room Air Lungs: Normal Air Movement PACU Phase 2 Assessment Complications: No Follow up Care: N/A Patient Instructions Provided: N/A Nelson Moreland MD Feb 24, 2017 13:40
--- NOTE | 2017-02-24 13:41 | PCM.PNMED ---
Subjective Date of Service Feb 24, 2017 Subjective Patient expressed some anxiety about upcoming procedure this AM, she further states that her abdominal pain has been worsening over the past day. Otherwise states that she is feeling at more or less her baseline. No significant overnight events Comprehensive ROS negative except as outlined above. Exam Vital Signs Vital Sign - Last Date Time Temp Pulse Resp B/P Pulse Ox O2 Delivery O2 Flow Rate FiO2 02/24/17 08:33 36.8 02/24/17 08:29 85 110/52 96 Room Air 02/24/17 02:54 16 Intake and Output 02/23/17 02/23/17 02/24/17 Cumulative From/Thru 14:59 22:59 06:59 02/18/17 19:01 - 02/24/17 05:57 Intake Total 474 ml 480 ml 300 ml 7434 ml Output Total 300 ml 630 ml 5080 ml Balance 474 ml 180 ml -330 ml 2354 ml Intake Oral 480 ml 300 ml 2820 ml IV Total 474 ml 2389 ml TPN/PPN 1075 ml Packed Cells 1150 ml Output Urine Total 300 ml 600 ml 5050 ml Drainage Total 30 ml 30 ml # Voids 2 4 # Bowel Movements 1 4 Exam Gen: A/O x3 pleasant cooperative elderly cachectic woman in NAD Neck: Supple, non tender, no JVD, Full ROM HEENT: PERRL, EOMI, no scleral icterus, no conjunctival pallor, significant temporal wasting CV: RRR no rubs or gallops, systolic ejection murmur Resp: Lungs CTA BL, no wheezing rales or rhonchi Abd: Soft, mildly tender around insertion site of drain which is draining brown blackish fluid, some serous drainage around the drain insertion site, no organomegaly, no rebound or guarding Extr: No clubbing cyanosis or edema Neuro: CN 2-12 grossly intact, no focal neurologic deficit Psych: Mild anxiety about upcoming procedure. IVs and Medications IV Fluids LR @ 120 ml/hr post surgically 50 ml delivered with IV meds Medications Reviewed: Medications were reviewed in detail Lab and Diagnostics Item Value Date Time Red Blood Count 2.53 mil/mm3 L 02/24/17 0210 Mean Corpuscular Volume 92.9 fL 02/24/17 0210 Mean Corpuscular Hemoglobin 28.9 pg 02/24/17209 Mean Corpuscular Hemoglobin Concent 31.1 % L 02/24/17209 Red Cell Distribution Width 15.3 % 02/24/17209 Neutrophils (%) (Auto) 52.4 % 02/24/17209 Lymphocytes (%) (Auto) 25.6 % 02/24/17209 Monocytes (%) (Auto) 17.5 % H 02/24/17209 Eosinophils (%) (Auto) 2.8 % 02/24/17209 Basophils (%) (Auto) 1.4 % 02/24/17209 Calcium Level 9.0 mg/dL 02/24/17209 Phosphorus Level 3.4 mg/dL 02/24/17209 Magnesium Level 1.8 mg/dL 02/24/17209 Total Bilirubin 0.3 mg/dL 02/24/17209 Aspartate Amino Transf (AST/SGOT) 23 U/L 02/24/17209 Alanine Aminotransferase (ALT/SGPT) 20 U/L 02/24/17209 Alkaline Phosphatase 403 U/L H 02/24/17209 Total Protein 4.5 g/dL L 02/24/17209 Albumin 2.5 g/dL L 02/24/17209 Procalcitonin 0.07 ng/mL 02/24/17209 Result Diagram: 02/24/1720902/24/17209 Microbiology Blood culture negative at 2 days X-Rays, CTs and MRIs X-RAY CHEST ONE VIEW, PORTABLE IMPRESSION: Right upper quadrant surgical drain. Otherwise no significant interval change. Enlarged cardiomediastinal silhouette. Dictated by: Theo Trinidad M.D. on 02/18/2017 at 21:55 Approved by: Theo Trinidad M.D. on 02/18/2017 at 21:56 CT ABDOMEN AND PELVIS WITH CONTRAST IMPRESSION: 1. Increased size of superior multiloculated component of the right hepatic lobe abscess. 2. Decreased, small bilateral pleural effusions. 3. 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 4. Large uterine fibroid is present, as before Dictated by: Junito Cardozo M.D. on 02/19/2017 at 16:05 Approved by: Junito Cardozo M.D. on 02/19/2017 at 16:33 MR ABDOMEN MRCP IMPRESSION: Redemonstration of multiple, complex multiloculated fluid collections within the right lobe of the liver, presumably intrahepatic abscess/biloma. Possible communication with the right intrahepatic biliary tree as discussed above. Please see montage image series (and series 17) for further clarification and recommend close clinical and laboratory correlation as the study is motion degraded with compromised spatial resolution. Dictated by: Andre Herring M.D. on 02/21/2017 at 8:35 Approved by: Andre Herring M.D. on 02/21/2017 at 8:56 . 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 Per Dr. Webber patient has in the past manifested fevers shortly after drain flushing which subsequently resolve spontaneously, concern that the flushing process washes purulent debris back into the abdominal cavity manifesting a transient bacteremia. CT abdomen/pelvis was quite discouraging as it revealed that her multiloculated liver mass is larger and more extensive than at any point in the past, now s/p 70 days of intensive IV antibiotics and multiple drains. Chronic liver abscess, present on admission, ongoing -Patient with revision of liver drain 02/24/17 -Patient will likely require indefinite antibiotic therapy as she is unable to tolerate surgical intervention -Morphine and oxycodone for pain -Repeat CT shows increase in abscess/mass New onset fevers with recent history of VRE bacteremia with questionable endocarditis, POA, acute. Resolved - SIRS positive with tachycardia of 98 and fever of 38.9 Celsius at admission, now resolved - Patient denies worsening abdominal pain at site of liver abscess or significant notable change in liver abscess drain output; follow by ID outpatient - Continue Linezolid and Ertapenem per outpatient regimen - Infectious disease consulted from the ED - Per ID evaluation this likely represent transient bacteremia from liver drain flushing procedure Acute blood loss anemia, present on admission, stable -Secondary to Hereditary hemorrhagic telangiectasia and likely upper GI bleeding due to AVMs -5 units PRBCs reserve by EGD; received 2 units 02/22/17 -Continuing to monitor H/H with transfusions as necessary Hereditary hemorrhagic telangiectasia, present on admission, ongoing -Followed by Dr. Bynum as an outpatient. -Transfuse below Hg 7. Severe protein calorie malnutrition, present on admission, active -Patient improving oral intake -Nutritional consult placed -BMI 16.6 Hypothyroidism, present on admission, chronic -s/p partial thyroidectomy. -We will continue outpatient [place] Thyroid Disposition: Patient underwent IR guided revision of liver drain today, DC will be dependent upon post operative recovery, most likely 1-2 days. Pain Evaluation: Adequate Pain Control GI Prophylaxis: Proton Pump Inhibitor VTE Prophylaxis: SCDs VTE Mechanical Devices: Intermittant Pneumatic CD Resuscitation Status: DNR/DNI:Do Not Resuscitate/Intubate Attending Statement The patient was seen and examined together with Dr. Limon on 02/24/17 and I agree with the history, exam and plan as outlined in the note above. Bj Limon DO Feb 24, 2017 13:41 Nano Araujo DO Feb 25, 2017 07:20
[2017-02-24] MEDS: HYDROmorphone 1 mg/mL Inj IVPUSH PRN (13:50)
--- NOTE | 2017-02-24 13:53 | NUR ---
NUTRITION FOLLOW-UP/CALORIE COUNT: Assess: 81 YO F admitted for liver abscess and sepsis. Plan for liver drain revision today. Pt recently discharged ~1 week ago. Calorie Count was order per MD 02/20. Unable to complete calorie count as there was only 1 meal slip saved by nursing. PMHx: Ulcerated gastroesophageal junction, Irregular gastroesophageal junction, Gastric and duodenal hereditary hemorrhagic telangiectasia, Hypothyroid, malnutrition, uterine fibroid. LABS: Reviewed. Glu 104, Alk Phos 403, Alb 2.5 MEDICATIONS: Reviewed. DIET: General, PO 10-25% GI: BM X 1 (02/23) SKIN: Cosmo 16; pale, frail woman sitting up in bed. Visible muscle/fat loss in face and arms. ANTHROPOMETRICS: Current wt: 36.5 kg, BMI 14.3 kg/m2 = underweight. Wt 02/11: 42.9 kg, BMI 16 kg/m2 Wt: (12/17) 41.5 kg (standing scale) Past Admit Wt: 38.5 kg (Bed scale), IBW: 52.3 kg. UBW (November): 54 kg. CALORIE COUNT: X 3 meals (pt is currently NPO) Dinner (02/20): 570 kcal, 20 g pro Breakfast (02/21): 218 kcal, 6 g pro Breakfast (02/22): 83 kcal, 3 g pro ESTIMATED NEEDS: Malnutrition/Wt gain Calories: [id number] (30-35 kcal/kg BW) Protein: 65-80 g/day (1.2-1.5 g/kg IBW) NUTRITION DIAGNOSIS: 1) Severe pro/kcal malnutrition related to chronic illness as evidenced by variable wt, visible loss of LBM/ fat, BMI of 15.2kg/m2--PERSISTS INTERVENTION: 1) Recommend advance diet once procedure complete. 2) Calorie count is incomplete as nursing has only saved one slip. Will consider discontinuing calorie count if no slips are saved once pt's diet is advanced s/p drain revision. 3) Pt likes Ensure CL so will continue to send on all trays (Ensure CL TID provides 600kcal and 21g pro). Pt tends to drink the Ensure CL between meals. MONITOR/EVALUATE: PO intake, diet tolerance, calorie count, labs, weight, GI/nutrition status, overall POC. Follow per high nutrition risk guidelines.
--- NOTE | 2017-02-24 15:32 | NUR ---
Back on unit Pt arrived on floor at about 1500. Brought by [facility] staff by bed. Drain had scant dark, red blood drainage. Pt reported R abdominal pain (at drain insertion site), rated it 5/10. Given 0.5mg of dilaudid x1 and was saline locked. Given pudding and fruit to eat and water to drink. Denied nausea. Alert and oriented. Vital signs stable and oxygen saturation stable on RA. Family present at bedside.
--- NOTE | 2017-02-24 16:18 | DRSVH ---
PROCEDURE: ABSC DRAIN CHANGE FLUOR (PNL) INDICATIONS: Nonhealing hepatic abscess. COMPARISON: [facility], XA, ABSC DRAIN CHANGE FLUOR (PNL), 01/13/2017, 14:40. Technique: 1. Anesthesia provided by the anesthesiology service. 2. Repositioning of the right hepatic percutaneous drain. The risks and benefits of the procedure were discussed with the patient, consent was obtained, and pl aced on the chart. The patient was placed in a supine position on the angiography table. The existing drain in the right upper quadrant were prepped and draped in the usual sterile fashion. 1% lidocaine was used and the skin around the drain. An 035 wire was advanced into the existing drain and the drain was removed. With the aid of a cobra catheter and a Glidewire, a deeper portion of the multilobulated abscess was interrogated. The Glidewire was exchanged for a 35 wire, and a new 10 [place] locking pigtail drain was deployed deeper in the abscess. FINDINGS: Initial sinogram through the drain demonstrates a multilobulated abscess cavity. There is communication at the inferior aspect of this abscess with the inferior right hepatic biliary tree. Af ter injection of approximately 30 cc iodinated contrast, a portion of the biliary tree, the proper he patic duct, the cystic duct, and the gallbladder are opacified. There is no intrahepatic biliary duct al dilatation and the common bile duct is normal caliber. After repositioning of the drain, the drain is visualized deeper into the multilobulated abscess. IMPRESSION: 1. Repositioning of a right hepatic drain deeper in the multilobulated abscess as described above. 2. Abscess cavity ccation with the inferior portion of the biliary tree. 3. Limited visualization of the biliary tree demonstrates no evidence for biliary ductal dilatation o r dilatation of the hepatic duct. Dictated by: Sadia Joel M.D. on 02/24/2017 at 15:30 Approved by: Sadia Joel M.D. on 02/24/2017 at 16:17
--- NOTE | 2017-02-24 17:57 | PCM.PALLBR ---
Palliative Care Recommendation Summary of palliative recommendations: 02/24/17-Pain adequately managed. C established Will complete POLST prior to discharge. Symptom management: per Attending. 1. She reports no pain now but has had intermittent pain with 5 dose of 0.25mg IV dilaudid in last 24hours. She experiences good relief with this dose. No recommendations for any changes at this time. 2. Fever and malaise- doing better. Goals of Care: 1. On reviewing her goals with her 02/20, Mrs. Ford was awake, alert, calm and able to make her own decisions. She was aware of Dr. Webber's assessment and recommendations. She wants to pursue further treatment to try to get better and return to baseline of living with her , reading books, visiting friends and going out to lunch. DPOA/Advanced Directives/POLST: 1. lists her son Ernesto and adopted daughter. She is a DNR but requests aggressive care up to that point.She is still considering her options for full code. 2. Palliative Care will try to obtain a POLST prior to discharge. Family/emotional support: good from , son and her daughter, who were all present in the room today. Family had no questions for me. Spiritual support: not addressed Problems: Disposition assuming back to [place] Resuscitation Status Resuscitation Status: DNR/DNI:Do Not Resuscitate/Intubate POLST Updates/Changes Previous POLST?: No POLST Discussed with: Patient Total time 15 minutes; >50% face to face with patient and/or family, providing counselling regarding plans and recommendations, and in care coordination with his/her medical teams. I also spent an additional [ ] minutes counseling for advanced care planning with the patient/the patients family/the surrogate decision maker. Palliative Brief Note Date of Service Feb 24, 2017 . Increase in pain RUQ but she states well managed with hydromorphone 0.5 mg IV PRN. Drain repositioned and draining bloody material--sent for culture. O: VSS afeb Hgb down to 7.3 f/u cultures remain negative from admit aCrmelita Jacobo MD Feb 24, 2017 17:57
--- NOTE | 2017-02-24 22:36 | PCM.PNMED ---
Subjective Date of Service Feb 24, 2017 Subjective patient returned from IR placement of new catheter into liver abscess no new complaints at this time Exam Vital Signs Vital Sign - Last Date Time Temp Pulse Resp B/P Pulse Ox O2 Delivery O2 Flow Rate FiO2 02/24/17 19:23 36.7 81 19 96/52 98 Room Air Intake and Output 02/23/17 02/23/17 02/24/17 Cumulative From/Thru 15:00 23:00 07:00 02/18/17 19:01 - 02/24/17 05:57 Intake Total 474 ml 480 ml 300 ml 7434 ml Output Total 300 ml 630 ml 5080 ml Balance 474 ml 180 ml -330 ml 2354 ml Intake Oral 480 ml 300 ml 2820 ml IV Total 474 ml 2389 ml TPN/PPN 1075 ml Packed Cells 1150 ml Output Urine Total 300 ml 600 ml 5050 ml Drainage Total 30 ml 30 ml # Voids 2 4 # Bowel Movements 1 4 Exam GEN- cachetic abdomen-right upper quadrant drain with blood tinged fluid, soft , non tender, bowel sound appreciated Lab and Diagnostics Result Diagram: 02/24/17 0210 02/24/17 0210 Microbiology Blood culture negative at 2 days X-Rays, CTs and MRIs X-RAY CHEST ONE VIEW, PORTABLE IMPRESSION: Right upper quadrant surgical drain. Otherwise no significant interval change. Enlarged cardiomediastinal silhouette. Dictated by: Theo Trinidad M.D. on 02/18/2017 at 21:55 Approved by: Theo Trinidad M.D. on 02/18/2017 at 21:56 CT ABDOMEN AND PELVIS WITH CONTRAST IMPRESSION: 1. Increased size of superior multiloculated component of the right hepatic lobe abscess. 2. Decreased, small bilateral pleural effusions. 3. 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 4. Large uterine fibroid is present, as before Dictated by: Junito Cardozo M.D. on 02/19/2017 at 16:05 Approved by: Junito Cardozo M.D. on 02/19/2017 at 16:33 MR ABDOMEN MRCP IMPRESSION: Redemonstration of multiple, complex multiloculated fluid collections within the right lobe of the liver, presumably intrahepatic abscess/biloma. Possible communication with the right intrahepatic biliary tree as discussed above. Please see montage image series (and series 17) for further clarification and recommend close clinical and laboratory correlation as the study is motion degraded with compromised spatial resolution. Dictated by: Andre Herring M.D. on 02/21/2017 at 8:35 Approved by: Andre Herring M.D. on 02/21/2017 at 8:56 . Assessment & Plan Liver abscess -drain repositioned today -cont IV abx per ID team -repeat imaging to see if abscess improving at some point HHT - follow H/H and transfuse PRBC as needed Malnutrition -Po encouraged -supplements between meals GI Prophylaxis: Proton Pump Inhibitor VTE Prophylaxis: SCDs VTE Mechanical Devices: Intermittant Pneumatic CD Resuscitation Status: DNR/DNI:Do Not Resuscitate/Intubate Abdoulaye Peraza MD Feb 24, 2017 22:36
[2017-02-25] VITALS (11 sets, daily range): BP systolic 86–110; BP diastolic 45–60; PULSE 65–92; RESP 14–19; O2SAT 96–100
[2017-02-25 02:45] LABS: BASOPHILS % (AUTO) 0.7 % (0-3); EOSINOPHILS % (AUTO) 2.4 % (0-5); MONOCYTES % (AUTO) 18.3 % (4-12); Mean Corpuscular Hemoglobin 29.7 pg (27.0-35.0); Mean Corpuscular Volume 94.1 fL (81-100); NEUTROPHILS % (AUTO) 61.5 % (40-74); Platelet Count 370 bil/L (150-400)
[2017-02-25 03:45] LABS: Magnesium 1.8 mg/dL (1.6-2.6); Phosphorus 3.6 mg/dL (2.5-4.9)
--- NOTE | 2017-02-25 05:28 | NUR ---
Drain/ Pain: Drain to Right upper abd remains c/d/i. Drain has small amount of serous- Sangenous fluid. Pt c/o 5/10 incisional pain overnight- treated with IV Dilaudid with good results. pt sleeping intermittently.
[2017-02-25] MEDS: Pantoprazole 20 mg ER24 Tablet PO SCH ×2 (07:39→19:18)
[2017-02-25] MEDS: Ertapenem Inj 1,000 MG in 0.9% Sodium Chloride 50 ML IV SCH (07:40)
--- NOTE | 2017-02-25 08:23 | PROG NOTE ---
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 INTERVAL HISTORY: Yesterday, the patient underwent placement of advancement of her current liver abscess drain. During the course of this, contrast was instilled which showed definitively for the first time, that there is a connection between the biliary tree and this hepatic abnormality. Following repositioning of the drain, there was increased brownish drainage as opposed to the usual greenish drainage we have been getting lately. The patient tolerated the procedure well. This was minimally painful, and she had no fever spikes or hypotension afterwards. Today, the patient says she is free of fevers or chills. She has minimal pain at the site of the drain as before. No new pulmonary or other symptoms. PHYSICAL EXAMINATION: Reveals an afebrile woman. Temp 36.7, pulse 92, respiratory rate 19, blood pressure 88/48. She is in no acute distress. She is still pale as always. Her lungs are clear. Abdomen is essentially nontender. The new drain has some thin brownish drainage. No new skin rash. LABORATORY DATA: White blood count today 4200, platelet count 370. Creatinine less than 0.3. LFTs are normal. Alk phos 396. Micro studies include the new culture from the advanced drained. It has a few polys and no organisms were seen. The abscess drainage note was reviewed. IMPRESSION: It is now becoming more clear in terms of what is going on with this patient. She has a biloma secondary to communication between the biliary tree and the liver abnormalities which have been repeatedly demonstrated on various imaging modalities. There is likely some combination of abscess and biloma going on in this relatively nontoxic patient. Now that the drain has been advanced, we will hopefully see a decrease in the fluid collection, but I am not certain how that solves the problem of the underlying bile leak and continuing biloma. RECOMMENDATIONS: 1. Will continue with IV ertapenem, though the duration of our antibiotic therapy remains most unclear. 2. Will continue with oral linezolid and we do intend to take that until about March 07 and then stop. 3. IV access is becoming a problem as we now have an IV in the patient's left foot. Eventually, we will need to place a new PICC line or similar line if we plan to go with long-term and antibiotics, but I think that decision will be at least in part contingent on what decision is made about possible stenting of her bile leak and possible transfer.
[2017-02-25] MEDS ORDERED: 0.9% Sodium Chloride 250 ML ONE ×2 (11:01→14:41)
[2017-02-25] MEDS: Polyethylene Glycol (PEG) 17 Gm Powder PO SCH (11:47)
--- NOTE | 2017-02-25 12:58 | NUR ---
Social Work: Continued Discharge Planning D: EMR reviewed. Pt is on day 7 of hospitalization. Per MD is AM multi-disciplinary rounds, pt is likely to discharge in 2-3 days. Pt will received blood transfusion today. DESTINEE received MD order to resume [facility] RN PT 3x/week. DESTINEE provided access to [facility] for resume orders. Pt anticipated to return to [facility] via POV and resume [facility] for RN PT 3x/week. Pt also likely to receive IVABX at [facility] [place]INEE will continue to follow for needs. A: Pt for whom resume orders for HH RN PT 3x/week have been deemed medically necessary. P: Pt anticipated to return to [facility] via POV and resume [facility] for RN PT 3x/week. Pt also likely to receive IVABX at [facility] [place] will continue to follow for needs. SOHAN Encarnacion Addendum: 02/25/17 at 1306 by FRANCIA ABDUL DESTINEE confirmed with Olga from [facility] that [facility] has access for pt's records to resume HH once pt is discharged.
--- NOTE | 2017-02-25 13:37 | PCM.PNMED ---
Subjective Date of Service Feb 25, 2017 Subjective Mrs. Ford states that she feels very weak and tired today, she states that the pain in her abdomen has marginally improved since her procedure yesterday. She further states that her stools have been infrequent and very loose to watery over the past couple weeks, her last BM was 2 days ago. Patient was transfused 2U PRBC this AM Comprehensive ROS negative except as listed above. Exam Vital Signs Vital Sign - Last Date Time Temp Pulse Resp B/P Pulse Ox O2 Delivery O2 Flow Rate FiO2 02/25/17 12:37 36.6 88 16 102/50 99 Room Air Intake and Output 02/24/17 02/24/17 02/25/17 Cumulative From/Thru 15:00 23:00 07:00 02/18/17 19:01 - 02/25/17 05:58 Intake Total 773 ml 300 ml 8507 ml Output Total 500 ml 650 ml 6230 ml Balance 273 ml -350 ml 2277 ml Intake Oral 700 ml 300 ml 3820 ml IV Total 73 ml 2462 ml TPN/PPN 1075 ml Packed Cells 1150 ml Output Urine Total 500 ml 650 ml 6200 ml Drainage Total 30 ml # Voids 3 7 # Bowel Movements 0 4 Exam Gen: A/O x3 pleasant cooperative elderly cachectic woman in NAD Neck: Supple, non tender, no JVD, Full ROM HEENT: PERRL, EOMI, no scleral icterus, no conjunctival pallor, significant temporal wasting CV: RRR no rubs or gallops, systolic ejection murmur Resp: Lungs CTA BL, no wheezing rales or rhonchi Abd: Soft, mildly tender around insertion site of drain which is draining and increased amount of brownish discharge, no organomegaly, no rebound or guarding Extr: No clubbing cyanosis or edema Neuro: CN 2-12 grossly intact, no focal neurologic deficit Psych: Depressed affect IVs and Medications IV Fluids 50 ml NS delivered with IV meds Medications Reviewed: Medications were reviewed in detail Lab and Diagnostics Item Value Date Time Red Blood Count 2.36 mil/mm3 L 02/25/17235 Mean Corpuscular Volume 94.1 fL 02/25/17235 Mean Corpuscular Hemoglobin 29.7 pg 02/25/17235 Mean Corpuscular Hemoglobin Concent 31.5 % L 6/20/17 0236 Platelet Count 370 jose eduardo/L 02/25/17 0236 Red Cell Distribution Width 14.9 % 02/25/17 0236 Neutrophils (%) (Auto) 61.5 % 02/25/17 0236 Lymphocytes (%) (Auto) 16.9 % 02/25/17 0236 Monocytes (%) (Auto) 18.3 % H 02/25/17 0236 Eosinophils (%) (Auto) 2.4 % 02/25/17 0236 Basophils (%) (Auto) 0.7 % 02/25/17 0236 Calcium Level 8.8 mg/dL 02/25/17 0236 Phosphorus Level 3.6 mg/dL 02/25/17 0236 Magnesium Level 1.8 mg/dL 02/25/17 0236 Total Bilirubin 0.4 mg/dL 02/25/17 0236 Aspartate Amino Transf (AST/SGOT) 44 U/L 02/25/17 0236 Alanine Aminotransferase (ALT/SGPT) 33 U/L H 02/25/17 0236 Alkaline Phosphatase 396 U/L H 02/25/17 0236 Total Protein 4.5 g/dL L 02/25/17 0236 Albumin 2.6 g/dL L 02/25/17 0236 Result Diagram: 02/25/17 0236 02/25/17 023 Microbiology Blood culture negative at 2 days X-Rays, CTs and MRIs X-RAY CHEST ONE VIEW, PORTABLE IMPRESSION: Right upper quadrant surgical drain. Otherwise no significant interval change. Enlarged cardiomediastinal silhouette. Dictated by: Theo Trinidad M.D. on 02/18/2017 at 21:55 Approved by: Theo Trinidad M.D. on 02/18/2017 at 21:56 CT ABDOMEN AND PELVIS WITH CONTRAST IMPRESSION: 1. Increased size of superior multiloculated component of the right hepatic lobe abscess. 2. Decreased, small bilateral pleural effusions. 3. 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 4. Large uterine fibroid is present, as before Dictated by: Junito Cardozo M.D. on 02/19/2017 at 16:05 Approved by: Junito Cardozo M.D. on 02/19/2017 at 16:33 MR ABDOMEN MRCP IMPRESSION: Redemonstration of multiple, complex multiloculated fluid collections within the right lobe of the liver, presumably intrahepatic abscess/biloma. Possible communication with the right intrahepatic biliary tree as discussed above. Please see montage image series (and series 17) for further clarification and recommend close clinical and laboratory correlation as the study is motion degraded with compromised spatial resolution. Dictated by: Andre Herring M.D. on 02/21/2017 at 8:35 Approved by: Andre Herring M.D. on 02/21/2017 at 8:56 ABSC DRAIN CHANGE FLUOR IMPRESSION: 1. Repositioning of a right hepatic drain deeper in the multilobulated abscess as described above. 2. Abscess cavity ccation with the inferior portion of the biliary tree. 3. Limited visualization of the biliary tree demonstrates no evidence for biliary ductal dilatation or dilatation of the hepatic duct. Dictated by: Sadia Joel M.D. on 02/24/2017 at 15:30 Approved by: Sadia Joel M.D. on 02/24/2017 at 16:17 . 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 CT abdomen/pelvis was quite discouraging as it revealed that her multiloculated liver mass is larger and more extensive than at any point in the past, now s/p 70 days of intensive IV antibiotics and multiple drains. There now appears to be a biloma with communication with her hepatic infectious mass. The patient underwent revision of her hepatic drain on 02/24/17 Chronic liver abscess, present on admission, ongoing -Patient with revision of liver drain 02/24/17, post procedure liver drain increased output which is now brownish brackish fluid -Patient will likely require indefinite antibiotic therapy as she is unable to tolerate surgical intervention -Dilaudid and oxycodone -Repeat CT shows increase in abscess/mass New onset fevers with recent history of VRE bacteremia with questionable endocarditis, POA, acute. Resolved - SIRS positive with tachycardia of 98 and fever of 38.9 Celsius at admission, now resolved - Patient denies worsening abdominal pain at site of liver abscess or significant notable change in liver abscess drain output; follow by ID outpatient - Continue Linezolid and Ertapenem per outpatient regimen - Infectious disease consulted from the ED - Per ID evaluation this likely represent transient bacteremia from liver drain flushing procedure Acute blood loss anemia, present on admission, stable -Secondary to Hereditary hemorrhagic telangiectasia and likely upper GI bleeding due to AVMs -Patient has received multiple units of PRBC, she is chronically transfusion dependent, but appears to be needing them more frequently and at greater volume -Continuing to monitor H/H with transfusions as necessary Hereditary hemorrhagic telangiectasia, present on admission, ongoing -Followed by Dr. Bynum as an outpatient. -Transfuse below Hg 7. Severe protein calorie malnutrition, present on admission, active -Patient improving oral intake -Nutritional consult placed -BMI 16.6 Hypothyroidism, present on admission, chronic -s/p partial thyroidectomy. -We will continue outpatient [place] Thyroid Disposition: Patient underwent IR guided revision of liver drain 02/24/17, DC will be dependent upon post operative recovery, most likely 1-2 days. Pain Evaluation: Adequate Pain Control GI Prophylaxis: Proton Pump Inhibitor VTE Prophylaxis: SCDs VTE Mechanical Devices: Intermittant Pneumatic CD Resuscitation Status: DNR/DNI:Do Not Resuscitate/Intubate Attending Statement The patient was seen and examined together with Dr. Limon on 02/25/17 and I agree with the history, exam and plan as outlined in the note above. Bj Limon DO Feb 25, 2017 13:37 Nano Araujo DO Feb 26, 2017 16:22
--- NOTE | 2017-02-25 17:24 | NUR ---
A/Ox3, makes needs known. Stand by assist to BSC. Denies pain this shift. Off tele. Hypotensive, systolic in 80-90's. Pedal pulses 2+ bilat. Denies SOB, dyspnea with exertion . 99% on room air. Bowels responsive to bisacodyl suppository, senna, and miralax given this AM. Passing formed, dark stool. Urine clear yellow. RUQ drain flushed w 10 cc NS without pain. Draining dark serous fluid. 2 units PRBC administered this shift with no adverse effects. SL in L foot patent, no s/s infiltration or phlebitis. No N/V this shift.
--- NOTE | 2017-02-25 17:45 | PCM.PNSURG ---
Subjective Visit Information: Reason for Visit Liver Abscess, Sepsis Surgery/Surgery Date Post-Op Day # Date of Admission: Feb 18, 2017 at 21:51 Hospital Day # Subjective: Ms. Ford underwent advancement of her percutaneous drain from one hepatic cavity into an adjoining cavity superior to the first; she has brown and goldenrod yellow output from it now. She is clinically stable . Images show communication of both cavities with the biliary tree, without dilation of intrahepatic or extrahepatic ducts . The gallbladder was seen on cholangiogram as well. 30 mL of drain output is recorded. Objective Vital Sign- Last 8 Hours Date Time Temp Pulse Resp B/P Pulse Ox O2 Delivery O2 Flow Rate FiO2 02/25/17 16:38 36.4 80 14 100/57 99 Room Air 02/25/17 15:47 36.4 80 14 100/57 02/25/17 15:18 36.6 75 14 97/56 02/25/17 12:37 36.6 88 16 102/50 99 Room Air 02/25/17 12:05 36.6 88 16 102/50 02/25/17 11:45 36.7 85 16 103/51 02/25/17 11:29 36.7 72 16 103/58 02/25/17 11:13 36.7 74 16 92/49 Intake and Output- Last 8 Hour 02/25/17 Cumulative From/Thru 07:00 02/18/17 19:01 - 02/25/17 05:58 Intake Total 300 ml 8507 ml Output Total 650 ml 6230 ml Balance -350 ml 2277 ml Intake Oral 300 ml 3820 ml IV Total 2462 ml TPN/PPN 1075 ml Packed Cells 1150 ml Output Urine Total 650 ml 6200 ml Drainage Total 30 ml # Voids 3 7 # Bowel Movements 4 General: Alert, Oriented X3, Cooperative, No Acute Distress Abdomen: Soft, Non-tender, Other (brown bile in drain) Result Diagram: 02/25/17 0236 02/25/17 0236 Assessment & Plan Impression 81yof with large intrahepatic abscess cavities which have evolved into bilomas which are contiguous with the biliary tree. Both are being drained by the drain which was advanced yesterday by Dr. Joel. I discussed this case in detail with Dr. Joel, Dr. Peraza, and Dr. Webber. I am somewhat doubtful that the drain advancement will improve her overall clinical picture given the large size of hepatic biloma cavities. It is possible that she may need fdc drainage or even consideration of hepatic resection although it is doubtful that she would be a candidate for this even in the hands of an experienced hepatobiliary surgeon given her arteriovenous malformations and poor clinical status. 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 Dr. Quintero has agreed to help facilitate this. 45 minutes were spent on this patient visit today, >50% in counseling and/or coordination of care. VTE Prophylaxis: SCDs Resuscitation Status: DNR/DNI:Do Not Resuscitate/Intubate Jovita Moncada MD Feb 25, 2017 17:45
[2017-02-25] MEDS: HYDROmorphone 0.5 mg/0.5 mL iSecure Syringe IVPUSH PRN (18:11)
[2017-02-25] MEDS: HYDROmorphone 1 mg/mL Inj IVPUSH PRN (21:59)
--- NOTE | 2017-02-25 22:00 | PCM.PNMED ---
Subjective Date of Service Feb 25, 2017 Subjective patient received 2 u PRBC today hepatic drain putting out bilious appearing fluid Exam Vital Signs Vital Sign - Last Date Time Temp Pulse Resp B/P Pulse Ox O2 Delivery O2 Flow Rate FiO2 02/25/17 19:10 36.9 91 17 110/60 100 Room Air Intake and Output 02/24/17 02/24/17 02/25/17 Cumulative From/Thru 14:59 22:59 06:59 02/18/17 19:01 - 02/25/17 05:58 Intake Total 773 ml 300 ml 8507 ml Output Total 500 ml 650 ml 6230 ml Balance 273 ml -350 ml 2277 ml Intake Oral 700 ml 300 ml 3820 ml IV Total 73 ml 2462 ml TPN/PPN 1075 ml Packed Cells 1150 ml Output Urine Total 500 ml 650 ml 6200 ml Drainage Total 30 ml # Voids 3 7 # Bowel Movements 0 4 Exam Gen- no apparent distress Abdomen- drain in RUQ with bilious appearing fluid Lab and Diagnostics Result Diagram: 02/25/17200002/25/17 0236 Microbiology Blood culture negative at 2 days X-Rays, CTs and MRIs X-RAY CHEST ONE VIEW, PORTABLE IMPRESSION: Right upper quadrant surgical drain. Otherwise no significant interval change. Enlarged cardiomediastinal silhouette. Dictated by: Theo Trinidad M.D. on 02/18/2017 at 21:55 Approved by: Theo Trinidad M.D. on 02/18/2017 at 21:56 CT ABDOMEN AND PELVIS WITH CONTRAST IMPRESSION: 1. Increased size of superior multiloculated component of the right hepatic lobe abscess. 2. Decreased, small bilateral pleural effusions. 3. 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 4. Large uterine fibroid is present, as before Dictated by: Junito Cardozo M.D. on 02/19/2017 at 16:05 Approved by: Junito Cardozo M.D. on 02/19/2017 at 16:33 MR ABDOMEN MRCP IMPRESSION: Redemonstration of multiple, complex multiloculated fluid collections within the right lobe of the liver, presumably intrahepatic abscess/biloma. Possible communication with the right intrahepatic biliary tree as discussed above. Please see montage image series (and series 17) for further clarification and recommend close clinical and laboratory correlation as the study is motion degraded with compromised spatial resolution. Dictated by: Andre Herring M.D. on 02/21/2017 at 8:35 Approved by: Andre Herring M.D. on 02/21/2017 at 8:56 ABSC DRAIN CHANGE FLUOR IMPRESSION: 1. Repositioning of a right hepatic drain deeper in the multilobulated abscess as described above. 2. Abscess cavity ccation with the inferior portion of the biliary tree. 3. Limited visualization of the biliary tree demonstrates no evidence for biliary ductal dilatation or dilatation of the hepatic duct. Dictated by: Sadia Joel M.D. on 02/24/2017 at 15:30 Approved by: Sadia Joel M.D. on 02/24/2017 at 16:17 . Assessment & Plan Hepatic abscess/Biloma -after review of imaging, examining drain output and discussion with Dr Moncada. I don't believe the bilious output will necessarily improve with this readjustment of the catheter into the abscess cavity. We could potentially observe and follow the drain output and repeat imaging vs transfer to [facility]. Her case has been discussed in the past by Dr Sam with Dr Josesito Dawson at [facility]. GI Prophylaxis: Proton Pump Inhibitor VTE Prophylaxis: SCDs VTE Mechanical Devices: Intermittant Pneumatic CD Resuscitation Status: DNR/DNI:Do Not Resuscitate/Intubate Abdoulaye Peraza MD Feb 25, 2017 22:00
[2017-02-26] MEDS: HYDROmorphone 0.5 mg/0.5 mL iSecure Syringe IVPUSH PRN ×4 (01:04→23:42)
[2017-02-26 01:05] VITALS: BP 106/55; PULSE 92; RESP 17; O2SAT 98
[2017-02-26 02:54] LABS: BASOPHILS % (AUTO) 0.5 % (0-3); EOSINOPHILS % (AUTO) 2.2 % (0-5); MONOCYTES % (AUTO) 22.6 % (4-12); Mean Corpuscular Hemoglobin 29.5 pg (27.0-35.0); Mean Corpuscular Volume 88.5 fL (81-100); NEUTROPHILS % (AUTO) 54.6 % (40-74); Platelet Count 333 bil/L (150-400)
[2017-02-26 03:35] LABS: Magnesium 1.8 mg/dL (1.6-2.6); Phosphorus 3.4 mg/dL (2.5-4.9)
--- NOTE | 2017-02-26 05:26 | NUR ---
Drain: Drain remains C/D/I- put out 25ml of dark green drainage overnight. incision pain relieved with PRN IV Dilaudid. pt sleeping intermittently.
[2017-02-26] MEDS: Polyethylene Glycol (PEG) 17 Gm Powder PO SCH (08:30)
[2017-02-26 08:43] VITALS: BP 99/57; PULSE 75; RESP 14; O2SAT 96
[2017-02-26] MEDS: Pantoprazole 20 mg ER24 Tablet PO SCH ×2 (08:55→19:50)
[2017-02-26] MEDS: Ertapenem Inj 1,000 MG in 0.9% Sodium Chloride 50 ML IV SCH (08:55)
--- NOTE | 2017-02-26 10:29 | PCM.PALLBR ---
Palliative Care Recommendation Summary of palliative recommendations: 02/26/17-Pain adequately managed. She will be interested in oral meds if and when she goes home if she continues to need them for control. GOC-Pt continues to want aggressive intervention with a goal for cure WRT infection/abscess. She agreed to DNR status last admission but remains uncertain about this based on her goal of cure. Because of this POLST is not addressed at this time. She is very interested in evaluation at if that would improve the management of her abscess. She has HHT with chronic transfusion requirement for yrs and this is not a problem for her. She states she failed attempts at high dose iron replacement as an alternative. 02/24/17-Pain adequately managed. GOC established Will complete POLST prior to discharge. Symptom management: per Attending. 1. She reports no pain now but has had intermittent pain with 5 dose of 0.25mg IV dilaudid in last 24hours. She experiences good relief with this dose. No recommendations for any changes at this time. 2. Fever and malaise- doing better. Goals of Care: 1. On reviewing her goals with her 02/20, Mrs. Ford was awake, alert, calm and able to make her own decisions. She was aware of Dr. Webber's assessment and recommendations. She wants to pursue further treatment to try to get better and return to baseline of living with her , reading books, visiting friends and going out to lunch. DPOA/Advanced Directives/POLST: 1. lists her son Ernesto and adopted daughter. She is a DNR but requests aggressive care up to that point.She is still considering her options for full code. 2. Palliative Care will try to obtain a POLST prior to discharge. Family/emotional support: good from , son and her daughter, who were all present in the room today. Family had no questions for me. Spiritual support: not addressed Problems: Goals of Care see above Disposition Ultimately back to [place] to be with but now possibility of transfer to is being entertained Resuscitation Status Resuscitation Status: DNR/DNI:Do Not Resuscitate/Intubate POLST Updates/Changes Previous POLST?: No POLST Discussed with: Patient Total time 35 minutes; >50% face to face with patient and/or family, providing counselling regarding plans and recommendations, and in care coordination with his/her medical teams. I also spent an additional [ ] minutes counseling for advanced care planning with the patient/the patients family/the surrogate decision maker. copies to: Macy Baird MD; Neville Webber MD Palliative Brief Note Date of Service Feb 26, 2017 . 81 yo patient with hx of hepatic abscess and VRE bacteremia readmitted for fever and malaise with negative blood cultures on admit. Her liver abscess drain was repositioned and that drainage is now growing a probable enterococcus-not yet confirmed. She has been followed by Dr. Webber and has been on antibiotics since December. She feels her pain is well managed with prn hydromorphone. Her goal is to get back to [place] to be with her . She remains optimistic about her overall prognosis and being able to clear this. Today she feels she has improved energy and fairly good appetite. She acknowledges days when she has felt malaise and fatigue despite being afebrile. O: IV is in her foot so she is limited in ability to get out of bed she is alert, articulate, very well versed in her medical options eating cinnamon roll and coffee for breakfast Carmelita Jacobo MD Feb 26, 2017 10:29
--- NOTE | 2017-02-26 10:39 | PROG NOTE ---
[address] [address] PROGRESS NOTE PATIENT: STEWART UREÑA : 1935 MR#: [id number] ADMIT: 02/18/2017 JOB ID: [id number] DATE: 02/26/2017 INFECTIOUS DISEASE FOLLOW UP NOTE: REASON FOR FOLLOWUP: Liver abscess with biloma. INTERVAL HISTORY: The patient feels considerably better today. Her hemoglobin has risen all the way to 9. She feels fairly energetic and voices no complaint. Certainly no fever, no chills. No cough, no chest pain. She has no abdominal pain and the drainage from the right upper quadrant drain has now switched from the reddish fluid yesterday back to green fluid. Yesterday afternoon there were discussions between Dr. Moncada and myself about possible transfer to [facility] and I know that Dr. Peraza of was also involved in these discussions though I did not speak to him directly. The patient is quite eager for transfer if there is any possibility that that will put an end to this very long 2-1/2 month ordeal with liver abscess and biloma. PHYSICAL EXAMINATION: Reveals an afebrile woman, temp 36.7, pulse 75, respiratory rate 14, blood pressure 99/57. She is in no distress. Examination of the mental status reveals it to be completely clear. Oral cavity is benign. Lungs: Relatively clear. The abdomen is slightly distended, soft, and nontender with the drain draining a bilious colored material. She still has an IV in her left foot which she says is really not troublesome to her at all. LABORATORIES: Include white count 5500, basically normal differential. Platelets 333. Creatinine less than 0.3. Alk phos 397. Bilirubin 1.3. Albumin 2.4. The culture obtained two days ago when the drain was advanced is now growing a light growth of an organism which appears to be Enterococcus and we await final identification and susceptibility. Recall that she did have VRE positive blood cultures about two weeks ago. IMPRESSION: The patient continues to be an extraordinarily complex patient in terms of overall management with her persistent liver abscess which is now growing another organism which appears to be enterococcus which is likely the same organism we found in her blood now almost three weeks ago. We have recently found that there is definitely a connection between the biliary system and this fluid collection in her liver so that at least some or most of this is due to a biloma. The drain has been repositioned and we are hopeful that there will be some decrease in the size though there is increasing discussion about possibly putting a stent or drain in place that would drain the biloma back into the alimentary canal. RECOMMENDATIONS: 1. Will continue with IV ertapenem though the fact that the liver abscess fluid is not growing any gram negatives or anaerobic organisms is heartening and suggests maybe we could stop soon in terms of broad-spectrum antibiotics. 2. Will continue with oral linezolid which is anticipated to go to March 07 in terms of treating her VRE, but which may need to be changed or extended as we are finding probably Enterococcus again in the abscess. 3. Will continue to closely follow this patient with you. 4. If we need to continue with intravenous antibiotics much longer, we will need to consider a central line, either a PICC in the right arm or a [place] or port type access device. A port probably is the best option for her long-term as she will likely require lifelong blood transfusions for her HHT.
--- NOTE | 2017-02-26 13:14 | NUR ---
NUTRITION FOLLOW-UP: Assess: 81 YO F admitted for liver abscess and sepsis. Pt had liver abscess drain revision 02/24. Calorie Count was order per MD 02/20 but due to pt being on and off NPO and poor recording of PO intake/meal slips the calorie count was unable to be completed. Calorie count has been stopped. Pt reports good appetite. She tends to graze throughout the day, rather than eating 3 big meals. Family/friends have been bringing in food she likes ([employer], [employer]). She ate a large cinnamon roll this am and most of a breakfast sandwich and oatmeal. She snacks on ice cream and pudding. She reported that she has only been drinking 1 Ensure CL/day. Encouraged pt to try to drink at least 2/day. PMHx: Ulcerated gastroesophageal junction, Irregular gastroesophageal junction, Gastric and duodenal hereditary hemorrhagic telangiectasia, Hypothyroid, malnutrition, uterine fibroid. LABS: Reviewed. Band Director <.3, T.bili 1.3, Alk phos 397, Alb 2.4 MEDICATIONS: Reviewed. DIET: General, PO 25-75% GI: BM X 4 (02/25) SKIN: Cosmo 20; pale, frail woman sitting up in bed. Visible muscle/fat loss in face and arms. ANTHROPOMETRICS: Current wt: 37.8 kg, BMI 14.8 kg/m2 = underweight. Wt 02/11: 42.9 kg, BMI 16 kg/m2 Wt: (12/17) 41.5 kg (standing scale) Past Admit Wt: 38.5 kg (Bed scale), IBW: 52.3 kg. UBW (November): 54 kg. ESTIMATED NEEDS: Malnutrition/Wt gain Calories: 3731-9493 (30-35 kcal/kg BW) Protein: 65-80 g/day (1.2-1.5 g/kg IBW) NUTRITION DIAGNOSIS: 1) Severe pro/kcal malnutrition related to chronic illness as evidenced by variable wt, visible loss of LBM/ fat, BMI of 15.2kg/m2--PERSISTS INTERVENTION: 1) Calorie count has been stopped. 2) Encouraged pt to have family continue to bring in food she likes. Encouraged pt to shoot for drinking 2 Ensure CL/day rather than just 1. Will send Ensure CL on B and L trays. MONITOR/EVALUATE: PO intake,labs, weight, GI/nutrition status, overall POC. Follow per high nutrition risk guidelines.
[2017-02-26 14:18] VITALS: BP 98/51; PULSE 87; RESP 14; O2SAT 96
--- NOTE | 2017-02-26 15:52 | NUR ---
Faxed clinicals to Deborah Martínez CM at [place], she is needing updated information to give to her Careers Adviser for authorization of transfer to . Faxed clinicals to [phone] Updated [facility]MICAL [facility]ER
[2017-02-26 16:20] VITALS: BP 112/63; PULSE 94; RESP 18; O2SAT 97
[2017-02-26 16:31] VITALS: BP 112/63; PULSE 94; RESP 18; O2SAT 97
--- NOTE | 2017-02-26 16:40 | PCM.DC.MED ---
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 Resolved Acute blood loss anemia, present on admission, stable Hereditary hemorrhagic telangiectasia, present on admission, ongoing Severe protein calorie malnutrition, present on admission, active Hypothyroidism, present on admission, chronic . Consultations General Surgery with Dr. Moncada Infectious disease with Dr. Webber Gastroenterology with Dr. Flaco Bee Palliative Care with Dr. Jacobo, Dr. Arteaga Procedures XRay, CTs & MRIs X-RAY CHEST ONE VIEW, PORTABLE IMPRESSION: Right upper quadrant surgical drain. Otherwise no significant interval change. Enlarged cardiomediastinal silhouette. Dictated by: Theo Trinidad M.D. on 02/18/2017 at 21:55 Approved by: Theo Trinidad M.D. on 02/18/2017 at 21:56 CT ABDOMEN AND PELVIS WITH CONTRAST IMPRESSION: 1. Increased size of superior multiloculated component of the right hepatic lobe abscess. 2. Decreased, small bilateral pleural effusions. 3. 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 4. Large uterine fibroid is present, as before Dictated by: Junito Cardozo M.D. on 02/19/2017 at 16:05 Approved by: Junito Cardozo M.D. on 02/19/2017 at 16:33 MR ABDOMEN MRCP IMPRESSION: Redemonstration of multiple, complex multiloculated fluid collections within the right lobe of the liver, presumably intrahepatic abscess/biloma. Possible communication with the right intrahepatic biliary tree as discussed above. Please see montage image series (and series 17) for further clarification and recommend close clinical and laboratory correlation as the study is motion degraded with compromised spatial resolution. Dictated by: Andre Herring M.D. on 02/21/2017 at 8:35 Approved by: Andre Herring M.D. on 02/21/2017 at 8:56 [facility]SC DRAIN CHANGE FLUOR IMPRESSION: 1. Repositioning of a right hepatic drain deeper in the multilobulated abscess as described above. 2. Abscess cavity ccation with the inferior portion of the biliary tree. 3. Limited visualization of the biliary tree demonstrates no evidence for biliary ductal dilatation or dilatation of the hepatic duct. Dictated by: Sadia Joel M.D. on 02/24/2017 at 15:30 Approved by: Sadia Joel M.D. on 02/24/2017 at 16:17 . Cardiac Echo Impression Interpretation Summary The left ventricle is normal in size. Left ventricular systolic function is normal without focal wall motion abnormalities. The ejection fraction is estimated to be 60-65%. Assessment of diastolic parameters indicates normal left ventricular diastolic function and normal filling pressures. The right ventricle is normal in size and function. The right ventricular systolic pressure is estimated at 34 mmHg assuming a right atrial pressure of 3 mm Hg. The left atrium is mildly dilated. Right atrial size is normal. The aortic valve is trileaflet. The aortic valve opens well. There is no aortic regurgitation. There is very small filamentous strand at the tips of aortic leaflets. This is best seen on parasternal long axis views with inncreased magnification. Differential should include endocarditis or Lambl's excrescence. Given positive blood cultures, OLU is recommended. Other valves do not have any obvious evidence for endocarditis. The aortic root is mildly dilated. The ascending aorta is mildly enlarged. Moderate atherosclerotic plaque(s) in the aortic arch. Reading Physician:PM . Invasive Procedures IR guided repositioning of intrahepatic abscess drain 02/24/17 Other Diagnostics [facility] DRAIN CHANGE FLUOR Technique: 1. Anesthesia provided by the anesthesiology service. 2. Repositioning of the right hepatic percutaneous drain. FINDINGS: Initial sinogram through the drain demonstrates a multilobulated abscess cavity. There is communication at the inferior aspect of this abscess with the inferior right hepatic biliary tree. After injection of approximately 30 cc iodinated contrast, a portion of the biliary tree, the proper hepatic duct , the cystic duct, and the gallbladder are opacified. There is no intrahepatic biliary ductal dilatation and the common bile duct is normal caliber. After repositioning of the drain, the drain is visualized deeper into the multilobulated abscess. IMPRESSION: 1. Repositioning of a right hepatic drain deeper in the multilobulated abscess as described above. 2. Abscess cavity ccation with the inferior portion of the biliary tree. 3. Limited visualization of the biliary tree demonstrates no evidence for biliary ductal dilatation or dilatation of the hepatic duct. Dictated by: Sadia Joel M.D. on 02/24/2017 at 15:30 Approved by: Sadia Joel M.D. on 02/24/2017 at 16:17 . Brief History Niesha Ford is an exceptionally complex 81 year old woman with a PMH of transfusion dependent hereditary hemorrhagic telangiectasia, severe protein calorie malnutrition with a BMI < 15, and an intractable liver abscess which resulted from a gastric perforation incurred during an attempted ablation of a bleeding telangiectasia in October 2016. She has had a liver drain in place for the past 70+ days. Antibiotic regimen has consisted of greater than 60 days of IV ertapenem to cover E.coli and klebsiella which was cultured from her abscess, and Linezolid for treatment of culture positive VRE bacteremia which was isolated during her last hospital stay in late January. Her liver abscess has proven refractory to drainage and IV antibiotics and if anything has grown larger since her previous admission and developed communication with multiple intrahepatic biloma. During her last hospitalization from 02/03-02/13 following her culture positive VRE results the patient underwent TTE to evaluation for possible endocarditis ( she was deemed unable to tolerate OLU due to her friable bleeding esophageal tissue), TTE failed to demonstrate definitive endocarditis but neither could this be excluded. Following 1 week of Linezolid her subsequent blood cultures were negative. For this hospitalization the patient presented on 02/18/17 following development of a [facility] 39.2 [facility] This fever resolved spontaneously shortly after arrival at the ED, however, CT scan in the ED revealed substantial enlargement and further multi-loculation of her chronic hepatic abscess and she was subsequently admitted for revision of her hepatic drain. Hospital Course 81-year-old with past medical history remarkable for recurrent GI bleeds secondary to hereditary hemorrhagic telangiectasia with a chronic liver abscess and blood cultures positive for VRE on daily IV antibiotic infusions presents with new onset fever. CT abdomen/pelvis was quite discouraging as it revealed that her multiloculated liver abscess is larger and more extensive than at any point in the past, now s/p 70 days of intensive IV antibiotics and multiple drains. There now appears to be multiple large biloma communicating with her hepatic abscess. The patient underwent revision of her hepatic drain on 02/24/17. Her potential treatment options were discussed extensively between GI (Dr. Peraza, Dr. Sam), general surgery (Dr. Moncada), infectious disease ( Dr. Webber), and the primary team; she is likely too malnourished and prone to bleeding to tolerate surgical excision of the hepatic abscess, the drain and IV antibiotics have proven insufficient to resolve the abscess, and she would likely need a stenting procedure to facilitate drainage of her biloma which would be unavailable at this facility; thus the patient was transferred to [facility] for further evaluation and treatment by Dr. Bush, a hepatobiliary specialist at that facility. Palliative care has had extensive discussions with this patient, who is adamant that she would like to continue to pursue aggressive treatment, but would like to be DNR/DNI. Chronic liver abscess, present on admission, ongoing -Patient with revision of liver drain 02/24/17, post procedure liver drain increased output which is now brownish brackish fluid -Patient will likely require indefinite antibiotic therapy as she is unable to tolerate surgical intervention -Ertapenem 1g IV daily -Dilaudid and oxycodone -Previous cultures have grown E. Coli, and Klebsiella: now additionally growing enterococcus likely the same strain of VRE which had previously grown in her blood -Repeat CT shows increase in abscess/mass Recent history of VRE bacteremia with possible endocarditis, POA. Improving - During her last hospital stay the patient has 4/4 blood cultures positive for VRE - Patient was started on Linezolid 600 mg PO BID at that time resulting in resolution of blood cultures at that time - TTE was performed which did not demonstrate, but could not exclude VRE endocarditis - Linezolid treatment for a full 6 week course was planned with end date on 03/07 - Patient's blood cultures have been negative during this hospital stay New onset fevers with recent history of VRE bacteremia with questionable endocarditis, POA, acute. 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 Miller Bynum as an outpatient. -Transfuse below Hg 7. Severe protein calorie malnutrition, present on admission, active -Patient improving oral intake -Nutritional consult placed -BMI 14.8 -Patient continues to lose weight, and has very poor appetite Hypothyroidism, present on admission, chronic -s/p partial thyroidectomy. -We will continue outpatient [place] Thyroid Exam Vital Signs (Last) Date Time Temp Pulse Resp B/P Pulse Ox O2 Delivery O2 Flow Rate FiO2 02/26/17 16:31 36.7 94 18 112/63 97 Room Air Exam Gen: A/O x3 pleasant cooperative elderly cachectic woman in NAD Neck: Supple, non tender, no JVD, Full ROM HEENT: PERRL, EOMI, no scleral icterus, no conjunctival pallor, significant temporal wasting CV: RRR no rubs or gallops, 2/6 systolic ejection murmur Resp: Lungs CTA BL, no wheezing rales or rhonchi Abd: Soft, mildly tender around insertion site of drain which is draining and increased amount of brownish discharge, no organomegaly, no rebound or guarding Extr: No clubbing cyanosis or edema, severely cachectic Neuro: CN 2-12 grossly intact, no focal neurologic deficit Psych: pleasant and appropriate mood and affect Item Value Date Time Red Blood Count 2.66 mil/mm3 L 02/27/17 07 Mean Corpuscular Volume 91.4 fL 02/27/17 07 Mean Corpuscular Hemoglobin 30.1 pg 02/27/17 07 Mean Corpuscular Hemoglobin Concent 32.9 % 02/27/17 07 Red Cell Distribution Width 15.4 % 02/27/17 07 Hemoglobin 8.0 g/dL L 02/27/17 07 Hematocrit 24.3 % L 02/27/17 07 White Blood Count 4.4 th/mm3 02/27/17 07 Platelet Count 336 jose eduardo/L 02/27/17 07 Sodium Level 137 mEq/L 6/21/17 0237 Potassium Level 4.5 mEq/L 02/26/17236 Chloride Level 102 mEq/L 02/26/17236 Carbon Dioxide Level 26 mmol/L 02/26/17236 Blood Urea Nitrogen 17 mg/dL 02/26/17236 Creatinine < 0.30 mg/dL L 02/26/17236 Glucose Level 97 mg/dL 02/26/17236 Calcium Level 8.7 mg/dL 02/26/17236 Phosphorus Level 3.4 mg/dL 02/26/17236 Magnesium Level 1.8 mg/dL 02/26/17236 Total Bilirubin 1.3 mg/dL H 02/26/17236 Aspartate Amino Transf (AST/SGOT) 34 U/L 02/26/17236 Alanine Aminotransferase (ALT/SGPT) 32 U/L 02/26/17236 Alkaline Phosphatase 397 U/L H 02/26/17236 Total Protein 4.5 g/dL L 02/26/17236 Albumin 2.4 g/dL L 02/26/17236 Microbiology Results Blood culture negative at 2 days Discharge Medications Discharge Medications Dronabinol (Dronabinol) 2.5 Mg Capsule 5 MG PO TIDAC Prescribed by: VIC MOSELEY DO Linezolid (Linezolid) 600 Mg Tablet 600 MG PO BID Prescribed by: VIC MOSELEY DO Pantoprazole (Pantoprazole DR) 20 Mg Tablet.dr 20 MG PO BID (Reported) Polyethylene Glycol 3350 (Miralax) 17 Gm Powd.pack 17 GM PO DAILY (Reported) Thyroid,Pork ([place] Thyroid) 60 Mg Tablet 60 MG PO DAILY (Reported) As needed Bisacodyl (Dulcolax Rectal) 10 Mg Supp.rect 10 MG RC DAILY PRN PRN For Constipation (Reported) For no BM after MOM Ondansetron ODT (Ondansetron ODT) 4 Mg Tab.rapdis 4 MG PO Q4H PRN PRN For Nausea (Reported) Followup Plan Disposition: Transfer to [facility] Follow-up plan Follow up plan to be determined by [facility] post evaluation and treatment Discharge Diet: No restrictions Discharge Activity: Other (OOB to chair as tolerated, physical therapy has been working with her) Time spent Time spent counseling patient and coordinating transfer greater than 60 minutes Attending Statement The patient was seen and examined together with Dr. Moseley on 02/27/17 and I agree with the history, exam and plan as outlined in the note above. copies to: Macy Baird MD; Jovita Moncada MD; Jose Sam MD; Neville Webber MD, David E DO Feb 26, 2017 16:40 Nano Araujo DO Feb 27, 2017 14:33 Urine Leukocyte Esterase Negative (NEGATIVE) Urine RBC 0-2/hpf (0-2) Urine WBC 0-5/hpf (0-5) Urine Epithelial Cells Few/hpf (NONE-MOD) Urine Crystals Amorphous phosphates Urine Bacteria None/hpf (NONE-FEW) Urine Hyaline Casts None/lpf (NONE) Urine Granular Casts None seen (NONE SEEN) Urine Waxy Casts None seen (NONE SEEN) Urine Red Blood Cell Casts None seen (NONE SEEN) Urine White Blood Cell Casts None seen (NONE SEEN) Urine Mucus None seen (None Seen) Urine Trichomonas None seen (NONE SEEN) Urine Yeast None (NONE SEEN) Urine Culture Reflexed Not indicated Hold Urine Received (Received) Procalcitonin 0.07ng/mL (0.00-0.08) Test 02/25/17 02:36 02/26/17 02:37 Prothrombin Time 10.7sec (8.1-12.5) Prothromb Time International Ratio 1.00ratio White Blood Count 5.5th/mm3 (3.8-10.1) Red Blood Count 3.05mil/mm3 (3.90-5.20) Hemoglobin 9.0g/dL (12.0-15.6) Hematocrit 27.0% (35.0-46.0) Mean Corpuscular Volume 88.5fL (81-100) Mean Corpuscular Hemoglobin 29.5pg (27.0-35.0) Mean Corpuscular Hemoglobin Concent 33.3% (32.0-37.0) Red Cell Distribution Width 15.8% (12.3-15.4) Platelet Count 333bil/L (150-400) Neutrophils (%) (Auto) 54.6% (40-74) Lymphocytes (%) (Auto) 19.7% (14-46) Monocytes (%) (Auto) 22.6% (4-12) Eosinophils (%) (Auto) 2.2% (0-5) Basophils (%) (Auto) 0.5% (0-3) Sodium Level 137mEq/L (134-144) Potassium Level 4.5mEq/L (3.5-5.2) Chloride Level 102mEq/L (97-108) Carbon Dioxide Level 26mmol/L (18-29) Blood Urea Nitrogen 17mg/dL (8-27) Creatinine < 0.30mg/dL (0.57-1.00) Estimat Glomerular Filtration Rate mL/min (>59) Glucose Level 97mg/dL (60-99) Calcium Level 8.7mg/dL (8.5-10.1) Phosphorus Level 3.4mg/dL (2.5-4.9) Magnesium Level 1.8mg/dL (1.6-2.6) Total Bilirubin 1.3mg/dL (0.0-1.2) Aspartate Amino Transf (AST/SGOT) 34U/L (0-50) Alanine Aminotransferase (ALT/SGPT) 32U/L (0-32) Alkaline Phosphatase 397U/L (25-165) Total Protein 4.5g/dL (6.4-8.4) Albumin 2.4g/dL (3.4-5.0) Microbiology Results Blood culture negative at 2 days Discharge Medications Discharge Medications Dronabinol (Dronabinol) 2.5 Mg Capsule 5 MG PO TIDAC Prescribed by: VIC MOSELEY DO Linezolid (Linezolid) 600 Mg Tablet 600 MG PO BID Prescribed by: VIC MOSELEY DO Pantoprazole (Pantoprazole ) 20 Mg Tablet.dr 20 MG PO BID (Reported) Polyethylene Glycol 3350 (Miralax) 17 Gm Powd.pack 17 GM PO DAILY (Reported) Thyroid,Pork ([place] Thyroid) 60 Mg Tablet 60 MG PO DAILY (Reported) As needed Bisacodyl (Dulcolax Rectal) 10 Mg Supp.rect 10 MG RC DAILY PRN PRN For Constipation (Reported) For no BM after MOM Ondansetron ODT (Ondansetron ODT) 4 Mg Tab.rapdis 4 MG PO Q4H PRN PRN For Nausea (Reported) Followup Plan Disposition: Transfer to [facility] Follow-up plan Follow up plan to be determined by [facility] post evaluation and treatment Discharge Diet: No restrictions Discharge Activity: Other (OOB to chair as tolerated, physical therapy has been working with her) Time spent Time spent counseling patient and coordinating transfer greater than 60 minutes copies to: Macy Baird MD; Jovita Moncada MD; Jose Sam MD; Neville Webber MD, David E DO Feb 26, 2017 16:40
--- NOTE | 2017-02-26 17:47 | NUR ---
Dilaudid 0.5 mg given x1 for midline abdominal pain with effective results. RUQ drain producing dark green output. Flushed with 10 cc NS without pain. Miralax held today as pt had several formed stools yesterday and one this AM. BP hypotensive per baseline.
--- NOTE | 2017-02-26 18:32 | PCM.PNMED ---
Subjective Date of Service Feb 26, 2017 Subjective Patient states that she is feeling much better following transfusion yesterday, she is quite anxious to be transferred to a tertiary care facility. Otherwise states that she is doing well and has unchanged pain around her drain insertion site. However she did complain of an episode of increased pain on the right side which would sharp in nature and resolved with one does of percocet and has not had any pain since. No significant overnight events. Comprehensive ROS negative except as listed above. Exam Vital Signs Vital Sign - Last Date Time Temp Pulse Resp B/P Pulse Ox O2 Delivery O2 Flow Rate FiO2 02/26/17 16:31 36.7 94 18 112/63 97 Room Air Intake and Output 02/25/17 02/25/17 02/26/17 Cumulative From/Thru 15:00 23:00 07:00 02/18/17 19:01 - 02/26/17 06:20 Intake Total 475 ml 1340 ml 100 ml 33852 ml Output Total 550 ml 325 ml 7105 ml Balance 475 ml 790 ml -225 ml 3317 ml Intake Oral 920 ml 100 ml 4840 ml IV Total 175 ml 2637 ml TPN/PPN 1075 ml Packed Cells 300 ml 420 ml 1870 ml Output Urine Total 550 ml 300 ml 7050 ml Drainage Total 25 ml 55 ml # Voids 7 # Bowel Movements 4 8 Exam Gen: A/O x3 pleasant cooperative elderly cachectic woman in NAD Neck: Supple, non tender, no JVD, Full ROM HEENT: PERRL, EOMI, no scleral icterus, no conjunctival pallor, significant temporal wasting CV: RRR no rubs or gallops, systolic ejection murmur Resp: Lungs CTA BL, no wheezing rales or rhonchi Abd: Soft, mildly tender around insertion site of drain which is draining and increased amount of brownish discharge, no organomegaly, no rebound or guarding Extr: No clubbing cyanosis or edema Neuro: CN 2-12 grossly intact, no focal neurologic deficit Psych: Depressed affect IVs and Medications IV Fluids 50 ml delivered with IV meds Medications Reviewed: Medications were reviewed in detail Lab and Diagnostics Item Value Date Time Red Blood Count 3.05 mil/mm3 L 02/26/17236 Mean Corpuscular Volume 88.5 fL 02/26/17236 Mean Corpuscular Hemoglobin 29.5 pg 02/26/17236 Mean Corpuscular Hemoglobin Concent 33.3 % 02/26/17236 Red Cell Distribution Width 15.8 % H 02/26/17236 Neutrophils (%) (Auto) 54.6 % 02/26/17236 Lymphocytes (%) (Auto) 19.7 % 02/26/17236 Monocytes (%) (Auto) 22.6 % H 02/26/17236 Eosinophils (%) (Auto) 2.2 % 02/26/17236 Basophils (%) (Auto) 0.5 % 02/26/17236 Calcium Level 8.7 mg/dL 02/26/17236 Phosphorus Level 3.4 mg/dL 02/26/17236 Magnesium Level 1.8 mg/dL 02/26/17236 Total Bilirubin 1.3 mg/dL H 02/26/17236 Aspartate Amino Transf (AST/SGOT) 34 U/L 02/26/17236 Alanine Aminotransferase (ALT/SGPT) 32 U/L 02/26/17236 Alkaline Phosphatase 397 U/L H 02/26/17236 Total Protein 4.5 g/dL L 02/26/17236 Albumin 2.4 g/dL L 02/26/17236 Result Diagram: 02/26/1723602/26/17236 Microbiology Blood culture negative at 5 days X-Rays, CTs and MRIs X-RAY CHEST ONE VIEW, PORTABLE IMPRESSION: Right upper quadrant surgical drain. Otherwise no significant interval change. Enlarged cardiomediastinal silhouette. Dictated by: Theo Trinidad M.D. on 02/18/2017 at 21:55 Approved by: Theo Trinidad M.D. on 02/18/2017 at 21:56 CT ABDOMEN AND PELVIS WITH CONTRAST IMPRESSION: 1. Increased size of superior multiloculated component of the right hepatic lobe abscess. 2. Decreased, small bilateral pleural effusions. 3. 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 4. Large uterine fibroid is present, as before Dictated by: Junito Cardozo M.D. on 02/19/2017 at 16:05 Approved by: Junito Cardozo M.D. on 02/19/2017 at 16:33 MR ABDOMEN MRCP IMPRESSION: Redemonstration of multiple, complex multiloculated fluid collections within the right lobe of the liver, presumably intrahepatic abscess/biloma. Possible communication with the right intrahepatic biliary tree as discussed above. Please see montage image series (and series 17) for further clarification and recommend close clinical and laboratory correlation as the study is motion degraded with compromised spatial resolution. Dictated by: Andre Herring M.D. on 02/21/2017 at 8:35 Approved by: Andre Herring M.D. on 02/21/2017 at 8:56 ABSC DRAIN CHANGE FLUOR IMPRESSION: 1. Repositioning of a right hepatic drain deeper in the multilobulated abscess as described above. 2. Abscess cavity ccation with the inferior portion of the biliary tree. 3. Limited visualization of the biliary tree demonstrates no evidence for biliary ductal dilatation or dilatation of the hepatic duct. Dictated by: Sadia Joel M.D. on 02/24/2017 at 15:30 Approved by: Sadia Joel M.D. on 02/24/2017 at 16:17 . Cardiac Echo Impressions Interpretation Summary The left ventricle is normal in size. Left ventricular systolic function is normal without focal wall motion abnormalities. The ejection fraction is estimated to be 60-65%. Assessment of diastolic parameters indicates normal left ventricular diastolic function and normal filling pressures. The right ventricle is normal in size and function. The right ventricular systolic pressure is estimated at 34 mmHg assuming a right atrial pressure of 3 mm Hg. The left atrium is mildly dilated. Right atrial size is normal. The aortic valve is trileaflet. The aortic valve opens well. There is no aortic regurgitation. There is very small filamentous strand at the tips of aortic leaflets. This is best seen on parasternal long axis views with inncreased magnification. Differential should include endocarditis or Lambl's excrescence. Given positive blood cultures, OLU is recommended. Other valves do not have any obvious evidence for endocarditis. The aortic root is mildly dilated. The ascending aorta is mildly enlarged. Moderate atherosclerotic plaque(s) in the aortic arch. Reading Physician:PM . Additional Diagnostics ABSC DRAIN CHANGE FLUOR Technique: 1. Anesthesia provided by the anesthesiology service. 2. Repositioning of the right hepatic percutaneous drain. FINDINGS: Initial sinogram through the drain demonstrates a multilobulated abscess cavity. There is communication at the inferior aspect of this abscess with the inferior right hepatic biliary tree. After injection of approximately 30 cc iodinated contrast, a portion of the biliary tree, the proper hepatic duct , the cystic duct, and the gallbladder are opacified. There is no intrahepatic biliary ductal dilatation and the common bile duct is normal caliber. After repositioning of the drain, the drain is visualized deeper into the multilobulated abscess. IMPRESSION: 1. Repositioning of a right hepatic drain deeper in the multilobulated abscess as described above. 2. Abscess cavity ccation with the inferior portion of the biliary tree. 3. Limited visualization of the biliary tree demonstrates no evidence for biliary ductal dilatation or dilatation of the hepatic duct. Dictated by: Sadia Joel M.D. on 02/24/2017 at 15:30 Approved by: Sadia Joel M.D. on 02/24/2017 at 16:17 . 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 CT abdomen/pelvis was quite discouraging as it revealed that her multiloculated liver mass is larger and more extensive than at any point in the past, now s/p 70 days of intensive IV antibiotics and multiple drains. There now appears to be multiple large biloma communicating with her hepatic abscess. The patient underwent revision of her hepatic drain on 02/24/17. Her potential treatment options were discussed extensively between GI (Dr. Sam, and Dr. Peraza), general surgery (Dr. Moncada), infectious disease (Dr. Webber), and the primary team; she is likely too malnourished and prone to bleeding to tolerate surgical excision of the hepatic abscess, the drain and IV antibiotics have proven insufficient to resolve the abscess, and she would likely need a stenting procedure to facilitate drainage of her biloma which would be unavailable at this facility; thus the patient was deemed to be appropriate for transfer to [facility] for further evaluation and treatment by Dr. Bush, a hepatobiliary specialist at that facility. Chronic liver abscess, present on admission, ongoing -Patient with revision of liver drain 02/24/17, post procedure liver drain increased output which is now brownish brackish fluid -Patient will likely require indefinite antibiotic therapy as she is unable to tolerate surgical intervention -Ertapenem 1g IV daily -Dilaudid and oxycodone -Previous cultures have grown E. 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 Improving - During her last hospital stay the patient has 4/4 blood cultures positive for VRE - Patient was started on Linezolid 600 mg PO BID at that time resulting in resolution of blood cultures at that time (Patient's blood cultures remain negative) - TTE was performed which did not demonstrate, but could not exclude VRE endocarditis - Linezolid treatment for a full 6 week course was planned with end date on 03/07 - Patient's blood cultures have been negative during this hospital stay New onset fevers with recent history of VRE bacteremia with questionable endocarditis, POA, acute. 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 Miller Bynum as an outpatient. -Transfuse below Hg 7. Severe protein calorie malnutrition, present on admission, active -Patient improving oral intake -Nutritional consult placed -BMI 14.8 -Patient continues to lose weight, and has very poor appetite Hypothyroidism, present on admission, chronic -s/p partial thyroidectomy. -We will continue outpatient [place] Thyroid Disposition: Patient will likely be transferred to [facility] tomorrow AM GI Prophylaxis: Proton Pump Inhibitor VTE Prophylaxis: SCDs VTE Mechanical Devices: Intermittant Pneumatic CD Resuscitation Status: DNR/DNI:Do Not Resuscitate/Intubate Attending Statement The patient was seen and examined together with Dr. Limon on 02/26/17 and I have added additional information to the note above. Bj Limon DO Feb 26, 2017 18:31 Nano Araujo DO Feb 27, 2017 07:02
[2017-02-26 19:45] VITALS: BP 114/62; PULSE 99; RESP 17; O2SAT 95
[2017-02-27 03:21] VITALS: BP 98/53; PULSE 91; RESP 16; O2SAT 97
[2017-02-27] MEDS: HYDROmorphone 0.5 mg/0.5 mL iSecure Syringe IVPUSH PRN ×3 (03:23→12:51)
[2017-02-27 07:20] LABS: Mean Corpuscular Hemoglobin 30.1 pg (27.0-35.0); Mean Corpuscular Volume 91.4 fL (81-100)
[2017-02-27] MEDS: Polyethylene Glycol (PEG) 17 Gm Powder PO SCH (08:10)
[2017-02-27] MEDS: Pantoprazole 20 mg ER24 Tablet PO SCH (08:14)
[2017-02-27] MEDS: Ertapenem Inj 1,000 MG in 0.9% Sodium Chloride 50 ML IV SCH (08:47)
[2017-02-27 09:02] VITALS: BP 95/52; PULSE 93; RESP 14; O2SAT 97
--- NOTE | 2017-02-27 10:30 | PROG NOTE ---
[address] [address] PROGRESS NOTE PATIENT: STEWART UREÑA : 1935 MR#: [id number] ADMIT: 02/18/2017 JOB ID: [id number] DATE: 02/27/2017 REASON FOR FOLLOW UP: Liver abscess with associated biloma. INTERVAL HISTORY: Overnight, the patient has been free of fevers, chills, or sweats. No cough or shortness of breath. No chest pain. She is not having any significant abdominal pain. Drain is still in place. Greenish drainage continues into the biliary abscess/biloma drain. She notes that the IV she has had for several days now in her left medial malleolus is starting to hurt. This is not actually in the medial malleolus, but rather in a vein overlying the medial malleolus. PHYSICAL EXAMINATION: Reveals an afebrile woman in no acute distress. Temp 36.7, pulse 93, respiratory rate 14, blood pressure 95/52, saturating well on room air. Mental status reveals it to be clear. Lungs are clear as well. Cardiac tones without change. The abdomen is soft and quite nontender today. The drain is present with bilious drainage. All extremities quite wasted and the patient is gaunt overall. BMI only 14.6 today. The peripheral IV in the left foot is starting to show some minimal infiltration and should be removed, and I have discussed this with the nursing staff and written an order. DIAGNOSTIC STUDIES: Laboratories include today's white count 4400. Today's platelet count 336,000. Yesterday's creatinine was normal. Albumin 2.4. Procalcitonin 0. No new imaging since the drain was repositioned on the . Micro results include VRE now, which is growing from the liver abscess. IMPRESSION: This is an extraordinarily complicated case of a woman who a little over 70 days ago presented with a large liver abscess in the setting of HHT. The liver abscess and blood cultures grew 2 gram negative rods, which have been appropriately treated with intravenous antibiotics as well as drainage of the liver for basically 70 days. During the first week of February the patient developed a new fever and blood cultures grew vancomycin resistant Enterococcus. Those blood cultures turned negative with a prolonged course of oral linezolid, but we now have a repeat drainage procedure of the liver which is growing vancomycin resistant enterococcus. The vancomycin resistant enterococcus is borderline susceptible to daptomycin with JOY of 4 and quite insusceptible to linezolid with an JOY of 2. It is resistant to penicillin, amoxicillin, and vancomycin. It is clear that this patient has a connection between her biliary tree and her hepatic parenchyma as indicated by the dye study done February 24. This is both an abscess, as we have multiple positive cultures from the intrapelvic fluid collection, as well as a biloma as there is clearly drainage of bile into this area. Plans are underway for the patient to go to a tertiary care center for possible additional intervention regarding this reaccumulating biloma and liver abscess. RECOMMENDATIONS: 1. I would continue with linezolid through at least March 07 and perhaps even longer. Note that her platelets are okay as she has no developing peripheral neuropathy and no developing lactic acidosis due to her due to her linezolid, which is now completing three weeks. 2. How long to give the ertapenem or any broad-spectrum antibiotic for the liver abscess remains unclear. Early on we had 2 gram negatives, but these have been adequately treated now for months and have not grown in the culture from February 24 so I think we are probably near the end of the ertapenem, but I will leave this decision to the GI and Infectious Disease doctors at the receiving tertiary care center. 3. The IV in her foot should be removed and replaced with one in her right arm. Eventually she will require a port. Recall that when she had a PICC in her left upper extremity. She developed a DVT which took a while to resolve, though it has now. DVTs are especially complicated in this lady because she cannot be given anticoagulation because of her HHT and recurrent GI bleeds. 4. A port will offer lot of advantages and it can be used in the coming years to give blood transfusions which this patient requires on a very frequent basis. Thank you very much. We will see this patient again tomorrow if she is still here. Otherwise I am available for any questions by any of the physicians at the receiving center and I can be contacted by my cell phone, which is [phone].
--- NOTE | 2017-02-27 12:08 | NUR ---
Spoke with MD Limon and he has been in touch with [facility] this morning and with [facility]. Their is an accepting MD at [facility] and the transfer is likely to happen today. Updated ASSEMBLER WET WASH and KAIT RN
[2017-02-27 12:16] VITALS: BP 89/51; PULSE 83; RESP 16; O2SAT 99
--- NOTE | 2017-02-27 13:00 | NUR ---
At 1500 pt left facility with BLS team en route to [facility]. Report given to EMS and RN at [facility] by this clinical writer.
--- NOTE | 2017-02-27 13:31 | NUR ---
Social Work: Transfer Data: GAMING MANAGER notified pt transferred to [facility]. GAMING MANAGER spoke with Angelika with [facility], gave her the RN phone number for nurse to nurse and requested pt's RN to follow up on Angelika's request to send images of pt's liver to [facility]. No further d/c planning needed. SOHAN Kim
== END 2017-02-27 12:57 | disposition short-term general hospital (02) | DRG 441 ==
LOC: SED 18:51 → EDBD 18:51 → PCC 21:51
PROVIDERS: ADMIT Hospitalist; ATTEND Hospitalist
PROC: 30233N1 Transfusion of Nonautologous Red Blood Cells into Peripheral Vein, Percutaneous Approach (ICD-10-PCS; 2017-02-19)
PROC: 30233N1 Transfusion of Nonautologous Red Blood Cells into Peripheral Vein, Percutaneous Approach (ICD-10-PCS; 2017-02-21)
PROC: 30233N1 Transfusion of Nonautologous Red Blood Cells into Peripheral Vein, Percutaneous Approach (ICD-10-PCS; 2017-02-22)
PROC: 0F20X0Z Change Drainage Device in Liver, External Approach (ICD-10-PCS; principal; 2017-02-24)
PROC: 30233N1 Transfusion of Nonautologous Red Blood Cells into Peripheral Vein, Percutaneous Approach (ICD-10-PCS; 2017-02-25)
DX: K75.0 Abscess of liver (principal); E43 Unspecified severe protein-calorie malnutrition; Z68.1 Body mass index [BMI] 19.9 or less, adult; D62 Acute posthemorrhagic anemia; I38 Endocarditis, valve unspecified; R78.81 Bacteremia; R50.9 Fever, unspecified; R10.9 Unspecified abdominal pain; I78.0 Hereditary hemorrhagic telangiectasia; Z86.718 Personal history of other venous thrombosis and embolism; K59.00 Constipation, unspecified; E03.9 Hypothyroidism, unspecified; Z66 Do not resuscitate

== ENCOUNTER 2017-03-11 15:29 | Inpatient (IN) | payer MEDICARE ==
[2017-03-11] VITALS (13 sets, daily range): BP systolic 99–116; BP diastolic 41–69; PULSE 86–97; RESP 16–18; O2SAT 93–100
[~2017-03-11] VITALS: Ht 160 cm; Wt 37.1 kg
[~2017-03-11 15:29] MED LIST changes: -MAGN400O4 PO; -NA P133E23 RC
--- NOTE | 2017-03-11 16:11 | ED.REPORT ---
HPI-General Illness Date of Service Mar 11, 2017 ED Provider: Adrian Selby DO Pt is an 81 y/o female w/ a complicated medical history including HHT with gastric and duodenal telangiectasias, recurrent GI bleeding requiring biweekly transfusions, prior gastric perforation, hepatic abscess s/p drain placement, presenting to the ED via EMS from [facility] due to generalized weakness onset today. She c/o associated mild abdominal pain at the site of her drain which is not acutely changed. She states her stools are black and tarry but this is chronic. She denies fever, chills, CP, SOB, dysuria. The patient was recently admitted and transferred to [facility] for VRE bacteremia and questionable endocarditis and was discharged from there to [facility] 1 week ago. Oncologist: Dr. Bynum Infectious disease: Dr. Webber GI: Dr. Sam CODE STATUS: DNR and DNI; discussed during interview Nursing Notes Stated Complaint: WEAKNESS Chief Complaint: General Complaint Nursing Notes Reviewed: Yes Allergies: Coded Allergies: No Known Allergies (Verified , 03/11/17) Scheduled Dronabinol (Dronabinol) 2.5 Mg Capsule 5 MG PO TIDAC Linezolid (Linezolid) 600 Mg Tablet 600 MG PO BID Pantoprazole DR (Pantoprazole DR) 20 Mg Tablet.dr 20 MG PO BID Polyethylene Glycol 3350 (Miralax) 17 Gm Powd.pack 17 GM PO DAILY Thyroid,Pork ([place] Thyroid) 60 Mg Tablet 60 MG PO DAILY Scheduled PRN Bisacodyl (Dulcolax Rectal) 10 Mg Supp.rect 10 MG RC DAILY PRN PRN For Constipation For no BM after MOM Ondansetron ODT (Ondansetron ODT) 4 Mg Tab.rapdis 4 MG PO Q4H PRN PRN For Nausea General Time Seen by MD: 16:07 Chief Complaint Weakness Hx Obtained From: Patient, EMS Arrived By: Ambulance Sudden in Onset?: No Symptom Duration: Since onset Location: : Abdomen Quality: Aching Radiation: : Does not radiate Severity: Current: Mild Severity: Maximum: Mild Past Medical History Past Medical History Notes: GI: Dr. Sam Oncologist: Dr. Bynum Infectious disease: Dr. 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 Status post gastric perforation 10/25, requiring closure of the perforation. Hepatic abscess with drain in place. Acquired Hypothyroidism. 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 History of acute left upper extremity DVT at site of PICC line Iron deficiency anemia Past Surgical History Partial thyroidectomy Tonsillectomy Upper endoscopy with argon ablation of gastric AVMs at [facility] in September 2016 Laparoscopic closure of anterior gastric perforation with omental patch and washout (10/31/16) Bilateral cataract removal Family History Patient is adopted and does not know her family history The patient's son also has hereditary hemorrhagic telangiectasia and suffered from a brain abscess last year requiring hospitalization Granddaughter likely also has HHT due to recurrent nosebleeds however this is undiagnosed at this time Smoking History Never Smoker Social History Alcohol Use: Denies alcohol use Drug Use: Denies drug use Other Social History: Good social support, From out of town Ambulatory Status Independent Review of Systems Full Review of Systems Constitutional: Reports: Fatigue, Malaise, Weakness - generalized, Denies: Chills, Fever, Lethargy Respiratory: Denies: Non-productive cough, Shortness of breath Cardiovascular: Denies: Chest pain GI: Reports: Abdominal pain, Bloody/tarry stool, Denies: Nausea, Vomiting Complete sys rev & neg: except as marked. Physical Exam Vital Signs Vital Signs Date Time Temp Pulse Resp B/P Pulse Ox O2 Delivery O2 Flow Rate FiO2 03/11/17 18:07 37.4 93 17 106/41 93 Room Air 03/11/17 15:31 37.2 95 16 105/42 100 Room Air Initial VS: Reviewed, Vital signs normal Head / Eyes: Atraumatic, Normocephalic, PERRL ENT: Mucous membranes moist, Conjunctiva normal, No scleral icterus Neck: Supple, Full range of motion Respiratory: Breath sounds normal, Clear to auscultation, No respiratory distress Cardiovascular: Regular rate & rhythm, Heart sounds normal, Intact distal pulses Extremities: Vascular intact, Neuro intact, No swelling Neurologic: Alert, Oriented, Nonfocal Psychiatric: Mood/affect normal, Behavior normal, Normal thought content General/Constitutional: Awake, Alert, No acute distress, Cooperative, Not toxic appearing Appearance / Presentation: Positive: Cachectic, Frail, Pale, Underweight Abdomen: Atraumatic, Soft, No guarding, No rebound, No distention Percutaneous drain about the RUQ with minimal surrounding tenderness Skin: Atraumatic, Warm, Dry, Intact Pallor present Interpretation & Diagnostics Lab Results Interpretation Result Diagram: 03/11/17 1616 03/11/17 1616 Test 03/11/17 16:16 White Blood Count 4.4th/mm3 (3.8-10.1) Red Blood Count 1.61mil/mm3 (3.90-5.20) Hemoglobin 4.8g/dL (12.0-15.6) Hematocrit 16.0% (35.0-46.0) Mean Corpuscular Volume 99fL (81-100) Mean Corpuscular Hemoglobin 29.8pg (27.0-35.0) Mean Corpuscular Hemoglobin Concent 30.0% (32.0-37.0) Red Cell Distribution Width 21.5% (12.3-15.4) Platelet Count 509bil/L (150-400) Neutrophils (%) (Auto) 72% (40-74) Lymphocytes (%) (Auto) 17% (14-46) Monocytes (%) (Auto) 9% (4-12) Eosinophils (%) (Auto) 2% (0-5) Basophils (%) (Auto) 0% (0-3) Prothrombin Time 10.6sec (8.1-12.5) Prothromb Time International Ratio 0.99ratio Sodium Level 136mEq/L (134-144) Potassium Level 4.5mEq/L (3.5-5.2) Chloride Level 102mEq/L (97-108) Carbon Dioxide Level 23mmol/L (18-29) Blood Urea Nitrogen 19mg/dL (8-27) Creatinine 0.31mg/dL (0.57-1.00) Estimat Glomerular Filtration Rate 293mL/min (>59) Glucose Level 94mg/dL (60-99) Calcium Level 8.9mg/dL (8.5-10.1) Total Bilirubin 0.3mg/dL (0.0-1.2) Aspartate Amino Transf (AST/SGOT) 15U/L (0-50) Alanine Aminotransferase (ALT/SGPT) 11U/L (0-32) Alkaline Phosphatase 345U/L (25-165) Total Protein 4.8g/dL (6.4-8.4) Albumin 2.6g/dL (3.4-5.0) Re-Eval/Medical Decision Med Decision/Clinical Course Symptomatic anemia, requiring transfusion while in the ER. Patient will be admitted Time of Eval: 16:49 Re-Evaluation/Progress Note: Pt rechecked. Informed pt of need for admission for anemia. Pt understands and agrees with plan for admission. All questions addressed. Consultation : Referral / Consult Name: Alhaji To MD Consulted With: Hospitalist Call Returned at: 17:16 Cleaning Professional: Will see patient, Agrees with eval, Agrees with plan, Accepts admit Counseled Regarding: Diagnosis, Lab results, Need for admission Discharge & Departure Primary Impression: Symptomatic anemia Additional Impressions: Hereditary hemorrhagic telangiectasia Severe anemia Disposition: ADMITTED TO HOSPITAL Discharge Condition All VS Reviewed: Yes Condition: Stable Referrals: Macy Baird MD (PCP) Miller Bynum MD, Donald E MD Scribe Attestation Portions of this note were transcribed by Terrance Mcdonald. I, Dr. Selby, personally performed the history, physical exam and medical decision-making; I reviewed and confirmed the accuracy of the information in the transcribed note. Signed by Kush Tejada, 03/11/17 - 1700 copies to: Macy Baird MD; Miller Bynum MD; Jose Sam MD, Timothy S DO Mar 11, 2017 16:10 TERRANCE MCDONALD Mar 11, 2017 16:46
[2017-03-11 16:47] LABS: Mean Corpuscular Hemoglobin 29.8 pg (27.0-35.0); Mean Corpuscular Volume 99 fL (81-100); NEUTROPHILS % (AUTO) 72 % (40-74); Platelet Count 509 bil/L (150-400)
[2017-03-11 16:48] LABS: BASOPHILS % (AUTO) 0 % (0-3); EOSINOPHILS % (AUTO) 2 % (0-5); MONOCYTES % (AUTO) 9 % (4-12)
[2017-03-11 16:51] LABS: INR 0.99 ratio
[2017-03-11] MEDS ORDERED: Alum-Mag Hydrox-Simeth 30 mL Suspension PO PRN (17:50)
[2017-03-11] MEDS ORDERED: Ondansetron 2 mg/mL 2 mL Inj IVPUSH PRN (17:50)
[2017-03-11] MEDS ORDERED: Polyethylene Glycol (PEG) 17 Gm Powder PO PRN (17:50)
[2017-03-11] MEDS ORDERED: 0.9% Sodium Chloride 250 ML ONE (17:54)
--- NOTE | 2017-03-11 18:28 | PCM.HPMED ---
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 She has some chronic low grade abdominal pain around her drain site and reports chronic, tarry black stools. She was recently seen at [facility] for VRE bacteremia, where they also replaced her drain, but returned to [facility] last week. She denies any fever, chills, chest pain, increased abdominal pain, shortness of breath, nausea or vomiting. Review of Systems: A complete review of system was obtained and all negative except for what is included above in the history of present illness. 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 Multiple GI bleeds requiring ongoing biweekly transfusions Status post gastric perforation 10/25. Hepatic abscess with drain in place, recently changed at [facility] in 02/22 Acquired Hypothyroidism Uterine fibroid mass. Malnutrition Acute VRE bacteremia History of acute left upper extremity DVT Iron deficiency anemia Surgical History Partial thyroidectomy Tonsillectomy Upper endoscopy with argon ablation of gastric AVMs at [facility] in September 2016 Laparoscopic closure of anterior gastric perforation with omental patch and washout on 10/31/16 Bilateral cataract removal Percutaneous Hepatic drain, changed out 02/22 Family History Patient is adopted and does not know her family history. The patient's son also has hereditary hemorrhagic telangiectasia. Granddaughter likely also has HHT due to recurrent nosebleeds (undiagnosed at this time) Social History Hx Alcohol Use: Yes ("socially, very rarely") Hx Substance Use: No Hx Tobacco Use: No Smoking Status: Never Smoker Exam Vital Signs Vital Sign - Last Date Time Temp Pulse Resp B/P Pulse Ox O2 Delivery O2 Flow Rate FiO2 03/11/17 18:07 37.4 93 17 106/41 93 Room Air Exam General: Cachectic, pale elderly female, lying in bed in no acute distress. HEENT: NCAT, PEERLA, EOMI. Pale sclera. Membranes pink and moist. Neck: Supple with full ROM on exam. No JVD, trachea midline. CV: RRR, normal S1 and S2. 2/6 systolic murmur. Distal pulses intact bilaterally. Pulm: CTA bilaterally without wheezes/rales/rhonchi. No accessory muscle use. Abdomen: Soft, nontender, nondistended. Bowel sounds active, no rebound or guarding, Liver abscess drain in place with bandage overlaying without surrounding erythema Extremities: Distal pulses intact bilaterally. No clubbing/cyanosis/edema Neurological: A&Ox3. CN 2-12 intact. Muscle strength mildly weak in all extremities. Psych: Normal mood and affect. 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 Acute blood loss anemia, present on admission. Ongoing -Secondary to Hereditary hemorrhagic telangiectasia and likely upper GI bleeding due to AVMs - 2 units PRBCs ordered in the Emergency room - 2 more units PRBCs ordered on admission -Continuing to monitor H/H in pediatric tubes if possible -GI consulted given known gastric AVMs Chronic liver abscess, present on admission. Ongoing. -Liver abscess drain in place, recently changed at [facility] 02/22 -ID consulted as she is on 1g Ertapenem daily along with 600mg Linezolid twice daily to assess -Patient will likely require indefinite antibiotic therapy as she is unable to tolerate surgical intervention Hereditary hemorrhagic telangiectasia, present on admission. Ongoing. -Followed by Dr. Bynum as an outpatient -Transfuse if below Hg 7. - Will contact [facility], Oncology casey saw operator, on 03/12 for an ongoing plan to avoid readmissions for anemia Severe protein calorie malnutrition, chronic, present on admission. Active. - BMI has fallen to 15.6 from 16.6 a month ago -Continue to encourage oral intake -Nutritional consult was done last month -Continue dronabinol 5mg daily for appetite stimulation Hypothyroidism, present on admission, chronic. Stable. - Patient has partial thyroidectomy. - Continue home armor thyroid Acetaminophen for mild pain, headache, or fever when necessary. Bowel regimen Senna and MiraLAX scheduled as needed. Zofran when necessary for nausea and vomiting.. DVT prophylaxis: Anticoagulation is contraindicated given bleeding risk; SCDs only GI prophylaxis: Pantoprazole 20 mg twice a day Patient Status: The patient is admitted to inpatient status with length of stay likely > 2 midnights due to her presenting symptoms, complicated medical history and possible complications. GI Prophylaxis: Proton Pump Inhibitor VTE Prophylaxis Indicated: Contraindicated VTE Mechanical Devices: Intermittant Pneumatic CD Resuscitation Status: DNR/DNI:Do Not Resuscitate/Intubate Attending Statement The patient was seen and examined together with Dr. Perez on 03/11/2017 and I agree with the history, exam and plan as outlined in the note above. . Channing Perez DO Mar 11, 2017 18:28 Alhaji To MD Mar 11, 2017 20:00
[2017-03-11] MEDS: Pantoprazole 20 mg ER24 Tablet PO SCH (21:24)
[2017-03-11] MEDS: Ertapenem Inj 1,000 MG in 0.9% Sodium Chloride 100 ML IV SCH (21:24)
[2017-03-11] MEDS: HYDROmorphone 0.5 mg/0.5 mL iSecure Syringe IVPUSH PRN (21:25)
[2017-03-12] VITALS (7 sets, daily range): BP systolic 100–133; BP diastolic 50–76; PULSE 71–91; RESP 16–22; O2SAT 98–99
[2017-03-12 01:41] LABS: APPEARANCE,URINE CLEAR (CLEAR,HAZY); COLOR,URINE YELLOW (YELLOW); OCCULT BLOOD,URINE TRACE (NEGATIVE); PH,URINE 6.5 (5.0-8.0); UROBILINOGEN,URINE NORMAL (NORMAL)
[2017-03-12] MEDS: HYDROmorphone 0.5 mg/0.5 mL iSecure Syringe IVPUSH PRN ×3 (01:53→20:37)
[2017-03-12 05:07] LABS: BASOPHILS % (AUTO) 0.6 % (0-3); EOSINOPHILS % (AUTO) 2.8 % (0-5); MONOCYTES % (AUTO) 10.7 % (4-12); Mean Corpuscular Hemoglobin 30.8 pg (27.0-35.0); Mean Corpuscular Volume 95.1 fL (81-100); Platelet Count 476 bil/L (150-400)
[2017-03-12] MEDS: Pantoprazole 20 mg ER24 Tablet PO SCH ×2 (08:12→20:35)
[2017-03-12] MEDS: Polyethylene Glycol (PEG) 17 Gm Powder PO SCH (08:12)
--- NOTE | 2017-03-12 09:24 | CONS ---
[address] [address] CONSULTATION REPORT PATIENT: STEWART UREÑA : 1935 MR#: [id number] ADMIT: 03/11/2017 JOB ID: [id number] DATE OF SERVICE: 03/12/2017 INFECTIOUS DISEASE CONSULTATION: I thank Dr. Buenrostro for this timely consult. REASON FOR CONSULTATION: Complex hepatic abscess/biloma patient. HISTORY OF PRESENT ILLNESS: The patient's clinical course defies easy summary. The patient is a 81-year-old woman with the rotatory hemorrhagic telangiectasias. She was receiving multiple transfusions and undergoing various endoscopic studies, and in general was doing reasonably well. In September of this year, she underwent Argon beam coagulation to try and stop an upper GI bleed. Subsequent to that, she discovered she suffered a gastric perforation which may have been related to that procedure and a patch was performed. That was in October. In December she was admitted to this facility with a liver abscess and this was the first definitive diagnosis of a liver abscess though it was known that there was an abnormality in that area earlier in the spring. In any event, the liver abscess proved to be a bacteremic polymicrobial gram-negative process growing E. coli and Klebsiella. She was treated aggressively with ertapenem and then finally transitioned to a intermediate facility to receive a prolonged course of IV ertapenem as her hepatic abscess was not really decreasing much in size on serial imaging. She subsequently was readmitted with recurrent fevers in late January. At that time blood cultures grew VRE which was a new organism for her and she was treated with linezolid with resolution of the bacteremia. Her right upper quadrant drain, which had been present continuously really since December, was replaced and additional cultures were taken through the drain which grew VRE in mid-February. Serial ultrasounds, CAT scans of the liver showed that, if anything, the liver abscess was bigger and the drainage had become increasingly bilious. In late February the patient was transferred to [facility] for additional evaluation. The concerns at that point were that we had a CT contrast study which showed that there was actually communication between the biliary tree and the liver abscess/biloma and it was clear that there was bile flowing into the hepatic abscess area which suggested this was a super infected biloma. Because there appeared to be no end in sight for this process, she was transferred to [facility] for additional consideration. The patient spent three or four days at [facility] during the latter part of February and then was transferred to a local intermediate facility, [facility] [place] [place]. The records from [facility] include an excellent history and physical and nothing else so I do not actually know what transpired there. I have requested our refinery operator vapor recovery unit to obtain a full account of the records. The patient tells me she underwent an ERCP during which time they placed a biliary stent and they pulled her old hepatic drain which we had sent her to [facility] with, and placed a new one. It is unclear to me if this was an attempt at the so-called rendezvous procedure, but it does not sound like it. In any event, she says that she left [facility] essentially unchanged except she had a biliary stent, but clinically she felt no different and had no fevers or chills during her time after leaving this hospital about two weeks ago for her trip to [facility] and then to [facility]. She has been maintained on ertapenem and oral linezolid throughout that time and she was seen by a applications sales consultant apparently in Infectious Diseases at [facility] but I have not heard from that applications sales consultant nor are there any records available. Whether any cultures were done at [facility] is unknown to me. I just spent 30 minutes on the phone being transferred to various entities around the [facility] campus but it seems that no one knows if any cultures were done there and I have also requested refinery operator vapor recovery unit try and obtain micro records. It is hoped that perhaps there was another culture when they placed the new liver drain in late February at [facility]. Today, the patient states she feels tired as she was readmitted overnight here because of worsening anemia. Her hematocrit had dropped down to around 20 and she was feeling profoundly fatigued, short of breath with any exertion and "sleepy all the time." She did not have any headache though palpitations, shortness of breath at rest though she did with exertion or abdominal pain. She denies any pain related to the drain, any nausea or vomiting. She also denies any fevers, chills or sweats. She hopes that she can stop some of her antibiotics because that is really what is keeping her at [facility], and away from the assisted living facility where she would like to stay. PAST MEDICAL HISTORY: 1. Hereditary hemorrhagic telangiectasias with chronic GI bleed. 2. Chronic anemia due to blood loss. 3. Complex right upper quadrant fluid collection which represents a mixture of polymicrobial liver abscess and ongoing biloma. 4. Status post biliary stent late February at [facility]. 5. VRE bacteremia late January with a positive culture from the liver in mid March for VRE. 6. Hypothyroidism. 7. PICC line associated DVT left upper extremity with clinical resolution despite inability to anticoagulate this patient who is constantly bleeding. 8. Profound debility and malnutrition. Current antibiotics include ertapenem which he has been on for the better part of two months and linezolid which he has been on now for just about exactly one month. The patient has no known allergies. SOCIAL HISTORY: The patient consumes alcohol socially but not in the last three or four months because she has been so ill. She is a nonsmoker. 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 FAMILY HISTORY: Negative in that the patient is adopted and has no idea what her true family history is. REVIEW OF SYSTEMS: The patient has no significant headache. No visual complaint. No sore throat or stiff neck. She has noticed no swollen lymph nodes. She has no cough or shortness of breath. Though she was short of breath when she came yesterday she has improved with 2 units of blood. No chest pain is noted. No nausea, vomiting or diarrhea. Surprisingly no pain at all at the site of the right-sided flank drain. She has no dysuria. No swelling of the joints. She denies any neurologic complaint. Remainder of the review of systems is negative. PHYSICAL EXAMINATION: She is afebrile and has been during her 24 hours here. Temperature is 37 degrees, pulse 71, respiratory rate 19, blood pressure 122/52. She is saturating well on room air and she is in no acute distress. Examination of the head reveals some temporal wasting. Eyes with very pale conjunctivae and no scleral icterus. Nose normal. Oral cavity: Dry mucous membranes. Otherwise no pharyngitis or thrush. Neck is supple without adenopathy. Lungs are clear. Cardiac tones: Regular rate and rhythm without murmur, rub or gallop. The abdomen is slightly distended, but soft. There is a drain in right flank which is draining what appears to be bilious material. She does not have a Arellano. External genitalia normal. No evidence of synovitis. The extremities are completely wasted compatible with a BMI of 14.5. Strength about 4/5 diffusely. Neurologically otherwise she is intact. No skin rash. No synovitis as previously noted. LABORATORIES: Include white blood count 4700, hematocrit 25, platelet count 476,000. Creatinine 0.33. Alk phos 347. ALT and AST normal. Albumin 2.6. Urinalysis without white cells. Micro studies were reviewed. As mentioned we do not and seemed to be unable to find any micro records from a recent hospitalization at [facility]. Her records here of micro that are relevance start back in December. December 17 she had E. coli and Klebsiella which grew both from blood and the liver abscess. Subsequent to that we have VRE which grew from blood February 03 through February 08 with negative follow up cultures on February 10 and . On February 24 she had another drain placed in her liver abscess which grew only VRE. We do not have recent imaging from this facility and we are awaiting records from [facility]. Our last CT on February 19 actually showed that the liver abscess appeared to be increasing, and at that point, we felt this was largely due to a biloma and that is one of the reasons she went to [facility]. IMPRESSION: This is an incredibly complex case which now stretches over a full three months. The patient started off with a polymicrobial gram-negative bacteremic liver abscess which has been adequately treated after almost three months of antibiotics. Recent cultures have grown VRE from both blood and the liver abscess but not any additional gram negatives or anaerobes. My overall sense is that we could probably dispense with the ertapenem in the near future but I would like to know what was found during the liver aspirate and culture that was done at [facility], assuming that they did send the fluid they aspirated for culture. RECOMMENDATIONS: 1. Will continue with ertapenem and linezolid today. 2. I have asked the nursing staff to obtain a culture of the biliary tract drainage. Will need to disconnect the drainage system as high as we can rather than take this from the bag to avoid contamination if at all possible. 3. Assuming that the cultures from [facility] and perhaps some cultures we get here today are negative for gram-negative rods and anaerobes, I think we can probably stop the ertapenem in the next day or two which will free the patient from IV therapy. 4. How long we can safely keep her on linezolid is an open question as it tends to have cumulative toxicity. At this point, the patient has not developed any thrombocytopenia which is interesting nor has she developed any symptoms of neuropathy which would be the other main concern. If we get some negative cultures perhaps from [facility] and from here as well, we might even consider stopping the linezolid in the near future. Given that it is oral at least, it will not impair her discharge from the nursing center to her assisted living center. Thank you very much for involving me in this very complex case.
--- NOTE | 2017-03-12 10:29 | NUR ---
Spoke with Arely at [facility] and gave her access, patient comes from there and is likely to return. Let her know patient will need to come [place] [facility] [place] with CBC. She stated this is not a problem and patient's family typically transports patient as needed. Updated COMMERCIAL ASSISTANT
--- NOTE | 2017-03-12 10:38 | NUR ---
NUTRITION ASSESSMENT: Assess: 81 YO F admitted for symptomatic anemia. Pt had liver abscess drain replaced at [facility] on 02/22. Pt is currently on a General diet. Per previous admits, will add ensure CL BID. Pts wt is currently 37.1kg, previous wt was 37.4kg on 02/27/17. ID is following. PMHx: Ulcerated gastroesophageal junction, Irregular gastroesophageal junction, Gastric and duodenal hereditary hemorrhagic telangiectasia, Hypothyroid, malnutrition, uterine fibroid. LABS: Reviewed. Paint Technician .33, alk phos 347, alb 2.6 MEDICATIONS: Reviewed. DIET: General, no PO recorded yet GI: BM X 2 03/11 SKIN: Cosmo 18; pale, frail woman sitting up in bed. Visible muscle/fat loss in face and arms. ANTHROPOMETRICS: Current wt: 37.1kg, BMI 14.5 kg/m2 = underweight. Wt 02/27: 37.4kg, Wt 02/11: 42.9 kg. Wt: (12/17) 41.5 kg (standing scale) Past Admit Wt: 38.5 kg (Bed scale), IBW: 52.3 kg. UBW (November): 54 kg. ESTIMATED NEEDS: Malnutrition/Wt gain Calories: 1322-6464 (30-35 kcal/kg BW) Protein: 65-80 g/day (1.2-1.5 g/kg IBW) NUTRITION DIAGNOSIS: 1) Severe pro/kcal malnutrition related to chronic illness as evidenced by variable wt, visible loss of LBM/ fat, BMI of 14.5kg. INTERVENTION: 1) Will add Ensure CL on B and L trays per pt preference 2) Will monitor for PO intake and wt trends. Pt has had high kcal/pro diet education on numerous occasions during previous admits. MONITOR/EVALUATE: PO intake, labs, weight, GI/nutrition status, overall POC. Follow per high nutrition risk guidelines.
--- NOTE | 2017-03-12 11:34 | PCM.CONPAL ---
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 Hospital Unit @time of consult: Progressive Care Palliative Care Recommendation Summary of palliative recommendations: -Symptom management (Pain/other) Weakness of severe Anemia and chronic Liver Abscess Schedule weekly non-physician visit to Hematology for surveillance CBC's and transfusions if necessary Continue IV antibiotics per results of currently pending ID testing/Dr. Webber rec's. Routine follow up with Hematology - Dr. Bynum -DPOA/Advanced Directives/POLST DNR Goal of comfort -Family/emotional support in poor health and with memory problems Son and Daughter supportive 2 supportive grandchildren -Spiritual support Not requested Patient Goals: 1. Patient wants to be told the truth about his/her illness, even if it is unpleasant. 2. Patient would like to be told prognosis when it can be predicted, to better guide treatment decisions. 3. Patient would choose quality of life over quantity of life, and defines quality as Living at [facility] with and returns to driving her own car. 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 She has no treatment fatigue or emotional fatigue from this relentless treatment schedule Hoping to complete the IV antibiotic portion of her Live abscess treatment soon so that she can return to her [facility], with her . Disposition Palliative care will sign off at this point but would be happy to return if she or her team request. She has indicated that she appreciates palliative care but finds daily visits somewhat disturbing to her as her goals of care are clear and she is happy with the current approaches. The transfusion plan discussed today may need to be adjusted, which we would be happy to help out with, visiting her only if necessary. Resuscitation Status Resuscitation Status: DNR/DNI:Do Not Resuscitate/Intubate . 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 She has some chronic low grade abdominal pain around her drain site and reports chronic, tarry black stools. She was recently seen at [facility] [place] for VRE bacteremia, where they also replaced her drain, but returned to [facility] last week. She denies any fever, chills, chest pain, increased abdominal pain, shortness of breath, nausea or vomiting. Past Medical History Significant PMH Noted: Presents with symptomatic anemia, Hgb of 4.8, lower than her previous low of 5- 6. Had not been rechecked since discharge from [facility] [place] last week. Her last transfusion was 2-3 weeks ago, and she had been transfusion dependent twice a month, with Hematology - at Dr. Bynum's office prior to this Liver Abscess complicated process. Social History Living Situation: Usually lives at [facility] but is now at [facility]. 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 Palliative Performance Scale PPS Ambulation: Reduced PPS Activity: Unable to do normal job/work, Unable to do any work PPS Self-Care: Full Self Care PPS Intake: Normal PPS Conscious Level: Full ADLs ADL Ambulation: Full ADL Dressing: Full ADL Feeding: Full ADL Hygene/bathing: Full ADL Transfers: Full Allergy Allergies Reviewed: Yes Medications Current Medications: Current Medications Al Hydrox/Mg Hydrox/Simethicone 30 ml Q6H PRN PO; Start 03/11/17 at 17:50 Ondansetron HCl 4 to 8 mg Q4H PRN IVPUSH; Start 03/11/17 at 17:50 Senna 17.2 mg BID PRN PO; Start 03/11/17 at 17:50 Polyethylene Glycol 17 gm DAILY PRN PO; Start 03/11/17 at 17:50 Bisacodyl 10 mg DAILY PRN RECTAL; Start 03/11/17 at 18:55 Dronabinol 5 mg TIDAC PO Last administered on 03/12/17t 08:12; Admin Dose 5 MG; Start 03/12/17 at 07:30; Stop 03/12/17 at 09:12; Status DC Linezolid 600 mg BID PO Last administered on 03/12/17 08:12; Admin Dose 600 MG; Start 03/11/17 at 20:30 Ondansetron HCl 4 mg Q4H PRN PO; Start 03/11/17 at 19:05 Pantoprazole 20 mg BID PO Last administered on 03/12/17 08:12; Admin Dose 20 MG ; Start 03/11/17 at 20:30 Polyethylene Glycol 17 gm DAILY PO; Start 03/12/17 at 08:30 Thyroid 60 mg 60 mg DAILY PO Last administered on 03/12/17 08:12; Admin Dose 60 MG; Start 03/12/17 at 08:30 Ertapenem/Sodium Chloride 100 ml @ 200 mls/hr Q24H IV Last administered on 21:24; Admin Dose 200 MLS/HR; Start 03/11/17 at 19:30 Hydromorphone HCl Start with 0.5 mg and then... Q4H PRN IVPUSH Last administered on 03/12/17 01:53; Admin Dose 0.5 MG; Start 03/11/17 at 21:05 Scheduled Dronabinol (Dronabinol) 2.5 Mg Capsule 5 MG PO TIDAC Linezolid (Linezolid) 600 Mg Tablet 600 MG PO BID Pantoprazole DR (Pantoprazole DR) 20 Mg Tablet.dr 20 MG PO BID Polyethylene Glycol 3350 (Miralax) 17 Gm Powd.pack 17 GM PO DAILY Thyroid,Pork ([place] Thyroid) 60 Mg Tablet 60 MG PO DAILY Scheduled PRN Bisacodyl (Dulcolax Rectal) 10 Mg Supp.rect 10 MG RC DAILY PRN PRN For Constipation For no BM after MOM Ondansetron ODT (Ondansetron ODT) 4 Mg Tab.rapdis 4 MG PO Q4H PRN PRN For Nausea Objective Findings Exam Vital Sign - Last Date Time Temp Pulse Resp B/P Pulse Ox O2 Delivery O2 Flow Rate FiO2 03/12/17 10:23 80 03/12/17 08:09 37.0 19 122/52 99 Room Air Intake and Output 03/11/17 03/11/17 03/12/17 Cumulative From/Thru 15:00 23:00 07:00 03/11/17 15:31 - 03/12/17 05:37 Intake Total 403 ml 900 ml 1303 ml Output Total 580 ml 580 ml Balance 403 ml 320 ml 723 ml Intake Oral 200 ml 200 ml IV Total 100 ml 400 ml 500 ml Packed Cells 303 ml 300 ml 603 ml Output Urine Total 550 ml 550 ml Drainage Total 30 ml 30 ml # Bowel Movements 2 2 General: Alert/Oriented x3, No acute distress HEENT: Atraumatic (Severe Cachexia) Lungs: Normal Air Movement Abdomen: Other (Scaphoid) Neuro: Weakness Extremities: No Edema Skin: Other (Severe Cachexia) Lab/Diagnostics Lab and Imaging results reviewed in detail in EMR. Patient/Family Conference Members Present Family Members Present Not Applicable Medical Team Members Present? Not Applicable Discussion/Goals of Care Not Applicable Time spent Total time [50] minutes; >50% face to face with patient and/or family, providing counselling regarding plans and recommendations, and in care coordination with her medical teams. I also spent an additional [10] minutes counseling for advanced care planning with the patient. Arlet Bautista MD Mar 12, 2017 11:33
[2017-03-12] MEDS ORDERED: 0.9% Sodium Chloride 250 ML IV ONE (11:35)
--- NOTE | 2017-03-12 11:56 | NUR ---
Palliative care note D/A: Palliative care referral received today from Dr. To. Pt is known to PC due to past consults. Referral is for assistance with goals of care, specifically around coordinating with her known needs for ongoing blood tests and recurrent transfusions. Labs were not drawn at [facility], for reasons unknown and pt was admitted for transfusion. Pt seen by Dr. Bautista. He learns in discussion with pt that she is appreciative of PC services but requests not to see the team unless necessary as she does not wish to be reminded so often that she may sometime in the more near future. Dr. Bautista discusses with Dr. To for pt to have regular appt once a week with Dr. Bynum where she can get her labs drawn and obtain a transfusion if needed. Pt is happy with this option. Msg left for jessica Rdz. Dr. Bautista has kindly written order for PC consult. P: Bella GRAVES, CCM
--- NOTE | 2017-03-12 13:31 | PCM.DIMED ---
Channing Perez DO 03/12/17 1331: Discharge Instructions Date of Service Mar 12, 2017 Dates of Hospitalization Mar 11, 2017 at 18:07 Discharge Diagnosis Discharge Diagnosis Acute blood loss anemia Chronic liver abscess. Hereditary hemorrhagic telangiectasia. Severe protein calorie malnutrition Hypothyroidism Medication Instructions Additional med instructions You do not need IV Ertapenem at this time. Continue your Linezolid 600mg twice daily. Diet Discharge Diet: No restrictions Activity Discharge Activity: No restrictions Call your provider Call your provider for: Fever or Chills, Bleeding, Chest pain, Other (weakness , fatigue) Patient Instructions Patient Instructions You will now have appointments with Dr. Bynum's office every Friday for a blood count to evaluate the need for transfusions. He will also go over the options for continued IV access for these continued transfusions. Dr. Webber will contact you with any changes to your antibiotic regimen that result from the culture taken form your drain today. If he discontinues the IV Ertapenem, you could transition back to [place] rather than stay at [facility]. You received a total of 4 units of blood during your admission, which should raise your hemoglobin enough get you through until your blood count on Friday for further evaluation. Follow-up Provider: Macy Baird MD Follow-up with PCP in: 2 weeks (review of culture, transfusions) Provider: Miller Bynum MD Follow-up in: 1 week (she has appt on saturday 03/17 for cbc) Alhaji To MD 03/13/17 1644: Discharge Instructions Date of Service Date of discharge: 03/13/2017 Attending's Statement The patient was seen and examined together with Dr. Perez on 03/13/2017 and I agree with the history, exam and plan as outlined in the note above. . Channing Perez DO Mar 12, 2017 13:31 Alhaji To MD Mar 13, 2017 16:44
--- NOTE | 2017-03-12 13:44 | PCM.DC.MED ---
Discharge Summary Date of Service Mar 13, 2017 Dates of Hospitalization Date of Hospital Admission Mar 11, 2017 at 18:07 Date of Discharge: Mar 13, 2017 Providers: Admitting Physician: Alhaji To MD Primary Care Physician: Macy Baird MD Attending Physician: Alhaji To MD Diagnosis at Time of Discharge Diagnosis at Time of Discharge Acute blood loss anemia Chronic liver abscess. Hereditary hemorrhagic telangiectasia. Severe protein calorie malnutrition Hypothyroidism Consultations Dr Webber, Infectious Disease Dr. 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 She has some chronic low grade abdominal pain around her drain site and reports chronic, tarry black stools. She was recently seen at [facility] for VRE bacteremia, where they also replaced her drain, but returned to [facility] last week. She denies any fever, chills, chest pain, increased abdominal pain, shortness of breath, nausea or vomiting. It was found that her H/H was 4.8 and 16, respectively. She was given 2 units PRBC's in the Emergency Department, with H/H improvement to 8.2 and 25.3 and another 2 units PRBC's to bring her H/H to 10.[address] Webber of [place] was consulted. He ordered a culture to be done of her hepatic drain. His final recommendations are to stop the IV Ertapenem and continue on the oral Linezolid until he evaluates her in his clinic, Monday 03/19, at noon. After discussion with Dr. Bynum, her terminal block assembler, she is receiving 2 more units PRBC's and will be discharged to [place] later this evening. He will see her on Saturday 03/17 for weekly CBC's and transfusion evaluations (need for, access options). 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 Acute blood loss anemia, present on admission. Improved. -Secondary to Hereditary hemorrhagic telangiectasia and likely upper GI bleeding due to AVMs - 2 unit PRBC's overnight, 2 more transfused on the floor 03/[address] Bynum - H/H was 10.5/31.7 at time of discharge. -Patient is feeling stronger and back to her baseline - Weekly CBC every Friday at Dr. Bynum's office to evaluate need for transfusion and access options. Chronic liver abscess, present on admission. Stable. -Liver abscess drain in place, recently changed at [facility] 02/22 -ID was consulted as she is on 1g Ertapenem daily along with 600mg Linezolid twice daily to assess -Patient will likely require indefinite antibiotic therapy as she is unable to tolerate surgical intervention - Dr. Webber of ID recommends stopping IV Ertapenem, continuing Linezolid as above - Appointment with Dr. Webber 03/19 at noon Hereditary hemorrhagic telangiectasia, present on admission. Stable. -Followed by Dr. Bynum as an outpatient -Transfused 4 units PRBC's during her hospitalization, H/H at 10.5 and 31.7 at discharge. - Weekly CBC every Friday at Dr. Bynum's office to evaluate need for transfusion and access options. Severe protein calorie malnutrition, chronic, present on admission. Active. - BMI has fallen to 15.6 from 16.6 a month ago - Counseled on importance of maintaining strength, appetite with her chronic medical issues. -Nutritional consult was done last month - Stop dronabinol as she felt groggy without appetite stimulation Hypothyroidism, present on admission, chronic. Stable. - Patient has partial thyroidectomy - Continue home armor thyroid Patient Status: The patient was discharged in stable and improved condition. She will need to be evaluated for home health due to her prolonged medical admissions ([facility], [place], [facility], [facility]) and chronic medical conditions. There is a plan in place for a weekly CBC at Dr. Bynum's office every Friday starting 03/17 to assess for transfusion and access needs. She understands the conditions under which to return to the hospital and will follow up accordingly. Exam Vital Signs (Last) Date Time Temp Pulse Resp B/P Pulse Ox O2 Delivery O2 Flow Rate FiO2 03/12/17 10:23 80 03/12/17 08:09 37.0 19 122/52 99 Room Air Exam General: Cachectic elderly female, sitting upright eating lunch in NAD. HEENT: NCAT, PEERLA, EOMI. Membranes pink and moist. Neck: Supple with full ROM on exam. No JVD, trachea midline. CV: RRR, normal S1 and S2. 2/6 systolic murmur. Distal pulses intact bilaterally. Pulm: CTA bilaterally without wheezes/rales/rhonchi. No accessory muscle use. Abdomen: Soft, nontender, nondistended. Bowel sounds active, no rebound or guarding, Liver abscess drain in place with bandage overlaying without surrounding erythema. Extremities: Distal pulses intact bilaterally. No clubbing/cyanosis/edema Neurological: A&Ox3. CN 2-12 intact. Muscle strength normal in all extremities. No focal deficits. Psych: Normal mood and affect. Test 03/11/17 16:16 03/12/17 01:20 03/12/17 05:00 Prothrombin Time 10.6sec (8.1-12.5) Prothromb Time International Ratio 0.99ratio Urine Color Yellow (YELLOW) Urine Appearance Clear (CLEAR,HAZY) Urine pH 6.5 (5.0-8.0) Urine Specific [place] 1.020 (1.003-1.035) Urine Protein Negativemg/dL (NEG,TRACE) Urine Glucose (UA) Negativemg/dL (NEGATIVE) Urine Ketones Negativemg/dL (NEGATIVE) Urine Occult Blood Trace (NEGATIVE) Urine Nitrite Negative (NEGATIVE) Urine Bilirubin Negative (NEGATIVE) Urine Urobilinogen Normalmg/dL (NORMAL) Urine Leukocyte Esterase Negative (NEGATIVE) Urine RBC 0-2/hpf (0-2) Urine WBC 0-5/hpf (0-5) Urine Epithelial Cells Few/hpf (NONE-MOD) Urine Crystals Amorphous urates (NONE Urine Bacteria Few/hpf (NONE-FEW) Urine Hyaline Casts None/lpf (NONE) Urine Granular Casts None seen (NONE SEEN) Urine Waxy Casts None seen (NONE SEEN) Urine Red Blood Cell Casts None seen (NONE SEEN) Urine White Blood Cell Casts None seen (NONE SEEN) Urine Mucus Present (None Seen) Urine Trichomonas None seen (NONE SEEN) Urine Yeast None (NONE SEEN) Urinalysis Comment None Urine Culture Reflexed Not indicated White Blood Count 4.7th/mm3 (3.8-10.1) Red Blood Count 2.66mil/mm3 (3.90-5.20) Hemoglobin 8.2g/dL (12.0-15.6) Hematocrit 25.3% (35.0-46.0) Mean Corpuscular Volume 95.1fL (81-100) Mean Corpuscular Hemoglobin 30.8pg (27.0-35.0) Mean Corpuscular Hemoglobin Concent 32.4% (32.0-37.0) Red Cell Distribution Width 18.1% (12.3-15.4) Platelet Count 476bil/L (150-400) Neutrophils (%) (Auto) 69.0% (40-74) Lymphocytes (%) (Auto) 16.7% (14-46) Monocytes (%) (Auto) 10.7% (4-12) Eosinophils (%) (Auto) 2.8% (0-5) Basophils (%) (Auto) 0.6% (0-3) Sodium Level 138mEq/L (134-144) Potassium Level 4.7mEq/L (3.5-5.2) Chloride Level 103mEq/L (97-108) Carbon Dioxide Level 23mmol/L (18-29) Blood Urea Nitrogen 15mg/dL (8-27) Creatinine 0.33mg/dL (0.57-1.00) Estimat Glomerular Filtration Rate 273mL/min (>59) Glucose Level 90mg/dL (60-99) Calcium Level 8.8mg/dL (8.5-10.1) Total Bilirubin 0.5mg/dL (0.0-1.2) Aspartate Amino Transf (AST/SGOT) 16U/L (0-50) Alanine Aminotransferase (ALT/SGPT) 12U/L (0-32) Alkaline Phosphatase 347U/L (25-165) Total Protein 4.6g/dL (6.4-8.4) Albumin 2.6g/dL (3.4-5.0) Discharge Medications Discharge Medications Linezolid (Linezolid) 600 Mg Tablet 600 MG PO BID Prescribed by: VIC MOSELEY DO Pantoprazole (Pantoprazole DR) 20 Mg Tablet.dr 20 MG PO BID (Reported) Polyethylene Glycol 3350 (Miralax) 17 Gm Powd.pack 17 GM PO DAILY (Reported) Thyroid,Pork ([place] Thyroid) 60 Mg Tablet 60 MG PO DAILY (Reported) As needed Bisacodyl (Dulcolax Rectal) 10 Mg Supp.rect 10 MG RC DAILY PRN PRN For Constipation (Reported) For no BM after MOM Ondansetron ODT (Ondansetron ODT) 4 Mg Tab.rapdis 4 MG PO Q4H PRN PRN For Nausea (Reported) Followup Plan Patient Instructions You will now have appointments with Dr. Bynum's office every Friday for a blood count to evaluate the need for transfusions. He will also go over the options for continued IV access for these continued transfusions. Dr. Webber will contact you with any changes to your antibiotic regimen that result from the culture taken form your drain today. If he discontinues the IV Ertapenem, you could transition back to [place] rather than stay at [facility]. You received a total of 4 units of blood during your admission, which should raise your hemoglobin enough get you through until your blood count on Friday for further evaluation. Follow-up Provider: Macy Baird MD Follow-up with PCP in: 2 weeks (review of culture, transfusions) Provider: Miller Bynum MD Follow-up in: 1 week (she has appt on saturday 03/17 for cbc) Time spent Greater than 30 minutes was spent in preparation of discharge with greater than 50% of that time dedicated to patient counseling and coordination of care. . Attending Statement The patient was seen and examined together with Dr. Perez on 03/13/2017 and I agree with the history, exam and plan as outlined in the note above. . copies to: Macy Baird MD, Jeffery S DO Mar 12, 2017 13:44 Alhaji To MD Mar 13, 2017 16:46
--- NOTE | 2017-03-12 17:38 | NUR ---
Blood/pain/POC The pt is receiving 2 more units of PRBC's this evening, with the anticipation of being discharged home tomorrow morning. The pt will be receiving orders for outpatient blood transfusions PRN at discharge. The pt has occasional pain at the site of the hepatic drain, and has good pain control with 0.5 mL dilaudid. The pt's VSS during the shift and during blood transfusions.
--- NOTE | 2017-03-12 18:46 | PCM.PNMED ---
Subjective Date of Service Mar 12, 2017 Subjective Overnight there were no acute events. Ms. Ford reports feeling much stronger than yesterday with the blood transfusions. She denies any fever/chills, nausea/vomiting, chest pain, shortness of breath, or increased abdominal pain. She does mention she would like me to discontinue the Dronabinol as it makes her less clear mentally and didn't seem to help her appetite. Exam Vital Signs Vital Sign - Last Date Time Temp Pulse Resp B/P Pulse Ox O2 Delivery O2 Flow Rate FiO2 03/12/17 08:09 37.0 71 19 122/52 99 Room Air Intake and Output 03/11/17 03/11/17 03/12/17 Cumulative From/Thru 15:00 23:00 07:00 03/11/17 15:31 - 03/12/17 05:37 Intake Total 403 ml 900 ml 1303 ml Output Total 580 ml 580 ml Balance 403 ml 320 ml 723 ml Intake Oral 200 ml 200 ml IV Total 100 ml 400 ml 500 ml Packed Cells 303 ml 300 ml 603 ml Output Urine Total 550 ml 550 ml Drainage Total 30 ml 30 ml # Bowel Movements 2 2 Exam General: Cachectic, pale elderly female, sitting upright in NAD. HEENT: NCAT, PEERLA, EOMI. Pale sclera. Membranes pink and moist. Neck: Supple with full ROM on exam. No JVD, trachea midline. CV: RRR, normal S1 and S2. 2/6 systolic murmur. Distal pulses intact bilaterally. Pulm: CTA bilaterally without wheezes/rales/rhonchi. No accessory muscle use. Abdomen: Soft, nontender, nondistended. Bowel sounds active, no rebound or guarding, Liver abscess drain in place with bandage overlaying without surrounding erythema Extremities: Distal pulses intact bilaterally. No clubbing/cyanosis/edema Neurological: A&Ox3. CN 2-12 intact. Muscle strength mildly weak in all extremities. Psych: Normal mood and affect. 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 Acute blood loss anemia, present on admission. Improved. 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 Bynum -Continuing to monitor H/H in pediatric tubes if possible - Scheduled weekly CBC's every Friday at Dr. Bynum's office starting Friday, , to evaluate the need for tranfusions and give access options Chronic liver abscess, present on admission. Ongoing. -Liver abscess drain in place, recently changed at [facility] 02/22 -ID consulted as she is on 1g Ertapenem daily along with 600mg Linezolid twice daily to assess -Patient will likely require indefinite antibiotic therapy as she is unable to tolerate surgical intervention - Will discharge patient to [place] tomorrow instead of [facility] as Dr. Webber recommends discontinuing Ertapenem - Follow up with Dr. Webber next Friday, 03/19, at noon Hereditary hemorrhagic telangiectasia, present on admission. Stable. -Followed by Dr. Bynum as an outpatient -Transfuse if below Hg 7. - Weekly CBC's as above with Dr. Bynum Severe protein calorie malnutrition, chronic, present on admission. Active. - BMI has fallen to 15.6 from 16.6 a month ago -Continue to encourage oral intake -Nutritional consult was done last month -Discontinue dronabinol 5mg daily as patient felt it did not increase her appetite and made her groggy Hypothyroidism, present on admission, chronic. Stable. - Patient has partial thyroidectomy. - Continue home armor thyroid Acetaminophen for mild pain, headache, or fever when necessary. Bowel regimen Senna and MiraLAX scheduled as needed. Zofran when necessary for nausea and vomiting.. DVT prophylaxis: Anticoagulation is contraindicated given bleeding risk; SCDs only GI prophylaxis: Pantoprazole 20 mg twice a day Patient Status: The patient will likely be discharged tomorrow to [place] rather than [facility] as she will not be needing the IV antibiotic on board, depending on stable H/H. Pain Evaluation: Adequate Pain Control GI Prophylaxis: Proton Pump Inhibitor VTE Mechanical Devices: Intermittant Pneumatic CD Resuscitation Status: DNR/DNI:Do Not Resuscitate/Intubate Attending Statement The patient was seen and examined together with Dr. Perez on 03/12/2017 and I agree with the history, exam and plan as outlined in the note above. . Channing Perez DO Mar 12, 2017 09:44 Alhaji To MD Mar 13, 2017 16:42
[2017-03-12] MEDS: Ertapenem Inj 1,000 MG in 0.9% Sodium Chloride 100 ML IV SCH (20:48)
[2017-03-13 00:11] VITALS: BP 118/58; PULSE 87; RESP 22; O2SAT 97
[2017-03-13] MEDS: HYDROmorphone 0.5 mg/0.5 mL iSecure Syringe IVPUSH PRN ×2 (02:20→12:21)
--- NOTE | 2017-03-13 05:53 | NUR ---
HGB/GI/Mobility Yumiko received an additional 2 units PRBC's for a total of 4 units PRBC's, 4th unit finished at 2044 and patient has had no signs of bleeding this shift, patient had 1 BM that was black and stated that she always has black stools, up to bathroom independently using walker, pleasant and cooperative, no distress noted, uneventful shift and rested well throughout the night, Dilaudid 0.5mg given twice for right quadrant pain due to hepatic drain, will continue to monitor. Addendum: 03/13/17 at 0556 by SAMANTA STEELE RN Amended: Links added.
[2017-03-13 06:26] LABS: BASOPHILS % (AUTO) 1.1 % (0-3); EOSINOPHILS % (AUTO) 3.9 % (0-5); MONOCYTES % (AUTO) 10.2 % (4-12); Mean Corpuscular Hemoglobin 30.9 pg (27.0-35.0); Mean Corpuscular Volume 93.2 fL (81-100); NEUTROPHILS % (AUTO) 69.4 % (40-74); Platelet Count 410 bil/L (150-400)
[2017-03-13] MEDS: Polyethylene Glycol (PEG) 17 Gm Powder PO SCH (08:30)
[2017-03-13 08:47] VITALS: BP 110/59; PULSE 65; RESP 18; O2SAT 97
[2017-03-13] MEDS: Pantoprazole 20 mg ER24 Tablet PO SCH (08:51)
--- NOTE | 2017-03-13 09:18 | NUR ---
Social Work: Initial Assessment Data: Pt is an 81 y/o female admitted for symptamitic anemia, chronic GI bleed. Pt's PCP is Dr Baird, pt's insurance is [facility] [place] Medicare. Readmit score is 3. EMR reviewed. EDGER OPERATOR met with pt at bedside, role explained. Pt states she typically lives as [place] with her . She comes from [facility] and states she is willing to return if needed, but would like to go to [place] if possible. She uses a walker at baseline, does not drive, has hx of HH with [facility], does not have LTC or VA benefits, is not a a caregiver. ID is following, IVABX plan is currently unclear. This will determine d/c plan involving SNF vs [place] and home IVABX or IVABX at [facility]. The current plan includes pt coming to [facility] for weekly infusion with CBC. UR specialist working on this. Assessment: Pt who is typically independent from SNF. Plan: Pt will either return to [facility] or to [place], likely with IVABX. The current plan includes pt coming to [facility] for weekly infusion with CBC. EDGER OPERATOR will discuss clinical plan with MD and await MD orders. EDGER OPERATOR will continue to follow. SOHAN Kim Addendum: 03/13/17 at 0927 by LAURI MANUEL SS Amended: Links added.
--- NOTE | 2017-03-13 12:39 | PROG NOTE ---
[address] [address] PROGRESS NOTE PATIENT: STEWART UREÑA : 1935 MR#: [id number] ADMIT: 03/11/2017 JOB ID: [id number] DATE: 03/13/2017 INFECTIOUS DISEASE FOLLOWUP NOTE: REASON FOR FOLLOWUP: Complicated liver abscess/biloma. INTERVAL HISTORY: Overnight the patient has felt relatively stable. No new fever, chills, or shortness of breath. There has been no evident bleeding. She has no cough or chest pain. Minimal right upper quadrant pain where her drain is chronically located. No other new issues. PHYSICAL EXAMINATION: Reveals an afebrile woman temp 37.2, pulse 65, respiratory rate 18, blood pressure 110/59. She is saturating well on room air. Examination of the mental status shows it to be clear. Conjunctivae are pale, as is her skin, and this is typical. Oral cavity without any abnormalities. Lungs relatively clear anteriorly. Cardiac tones regular rate and rhythm without new murmur. Abdomen slightly distended, with drain in right upper quadrant yielding considerable amount of bilious material. No peripheral edema; in fact, her extremities are very wasted. LABORATORIES: Include white count 4600, normal diff. Platelets still 410,000 despite weeks of linezolid. Creatinine less than 0.3. LFTs normal, except for the alk phos, and that is trending down, now 314. Micro studies include the aspirate we took from the biliary drain yesterday and that is now growing what appears to be an Enterococcus, and we strongly suspect this will be the VRE which we have isolated from blood and the biliary drain in the past. IMAGING: No new imaging. IMPRESSION: This is a tremendously complicated case which is summarized in yesterday's consult note. At this point we have now gone many weeks without isolating gram-negative rods from either the blood or the liver abscess and I think it is reasonable to stop the ertapenem as we no longer have proof of gram-negative or anaerobic infection. Unfortunately we are still growing what appears to be VRE from the liver drain and this suggests that the infection within the liver abscess continues to be active. It is likely that the mixture of bile and abscess fluid creates a good environment for the gross of enterococci which are intrinsically tolerant to the antibacterial properties of bile. RECOMMENDATIONS: 1. Will discontinue the ertapenem today. 2. The patient will no longer need an IV and I think she could be discharged to [facility] to continue to take linezolid. 3. I am not entirely comfortable with this extraordinarily long course of linezolid but it did eliminate the VRE in her blood and it seems like the safest option in terms of trying to continue to treat the VRE in her liver. Going forward we will need to very closely watch the platelet count and to guard against the development of neuropathy. Note that at this point she has no neuropathic symptoms. 4. I will see the patient in my clinic on March 19 and at that point I will be reassessing her for signs of linezolid toxicity and also repeating a platelet count. 5. ID will go ahead and sign off and I have told the team that is reasonable, from my point of view at least, to send her home today. Thank you very much.
[2017-03-13 12:40] VITALS: BP 117/50; PULSE 88; RESP 18; O2SAT 97
--- NOTE | 2017-03-13 13:19 | NUR ---
Called Ezio at [facility] and let him know patient is discharging today back to [place] and is needing RN and PT home health. Gave access and Ezio will picker and sorter load and unload face to face from [facility]. Updated [facility]
--- NOTE | 2017-03-13 13:46 | NUR ---
Social Work: Discharge D: Pt discussed with . Pt will not require IV ABX like originally planned. The patient can go back to [facility] with supportive services from [facility]. MD has completed F2F. STUDIO HAND spoke with Ezio Guzman from [facility]. He has received referral from [facility] and is coming to get F2F. STUDIO HAND met with the patient at bedside to confirm discharge plan. Pt expresses no concerns about her discharge back to [facility] with [facility] for RN, PT. Pt's daughter is coming to transport her. A: Pt who is I at baseline and ambulating I during admission. P: Pt to discharge back to [facility] with [facility] for RN, PT. Pt's daughter to transport. SOHAN Tenorio
--- NOTE | 2017-03-13 15:08 | PROG NOTE ---
[address] [address] PROGRESS NOTE PATIENT: STEWART UREÑA : 1935 MR#: [id number] ADMIT: 03/11/2017 JOB ID: [id number] DATE: 03/13/2017 SUBJECTIVE: The patient is an 81-year-old woman with hereditary hemorrhagic telangiectasia. Associated with this, she has had frequent gastrointestinal bleeding. She had a perforated gastric ulcer leading to surgical repair. She developed a right liver abscess following this surgery. She has had a complicated course with several cycles of antibiotics. She presented with a generalized weakness on March 11 and was hospitalized with some with some with profound anemia. Initial hemoglobin was 4.8 with hematocrit of 16%. She noted dark tarry stools. She was transfused with 4 units of packed red blood cells and is feeling much stronger. She had cultures from ascites which showed probable enterococci. She is on antibiotic coverage with ertapenem 1000 mg IV daily, which is being discontinued. She anticipates return to the intermediate facility were both she and her live. OBJECTIVE: Vitals: T 37.1, P 88, R 18, BP 117/50. O2 saturation 97% on room air. HEENT: Conjunctivae slightly pale. Mucous membranes dry. No oral lesions. Nodes: No adenopathy in the neck or axilla. Chest: Clear. Cardiac: Regular rate and rhythm, with normal S1 and S2. Abdomen: Soft, nontender. Mild tenderness in the right upper quadrant. No rebound. Extremities: Extensive muscular wasting, 1+ distal pulses. No calf tenderness. LABORATORIES: WBC 4.6, hemoglobin 10.5, hematocrit 31.7%, platelets 410,000. BUN 15, creatinine less than 0.3, glucose 102, AST 13, ALT 10, alkaline phosphatase 314. ASSESSMENT AND PLAN: 1. Hereditary hemorrhagic telangiectasia: The patient had additional GI blood loss requiring 4 units of packed red blood cells during this hospitalization. She has had no evidence of iron overload, likely due to frequent blood loss. She would benefit from a Port-A-Cath, given frequent need for IV fluids and blood products. She will speak with Dr. Moncada to arrange this procedure in the near future. We will monitor CBC, differential, and platelets weekly in [facility], and arrange further transfusion support if indicated. 2. Right liver abscess: Culture was positive for E. coli and Klebsiella. She remains on broad-spectrum antibiotic coverage. Continue to monitor with the Infectious Disease team.
--- NOTE | 2017-03-13 15:30 | NUR ---
Discharge The pt left the unit with her daughter at 1530. The pt is being transported home via private vehicle. The pt left with all her belongings and her packet of discharge information. The pt verbalized understanding of all presented discharge teaching. The pt left A&O with VSS.
== END 2017-03-13 15:22 | disposition home health service (06) | DRG 811 ==
LOC: SED 15:29 → PCC 18:07
PROVIDERS: ADMIT Internal Medicine; ATTEND Internal Medicine
PROC: 30233N1 Transfusion of Nonautologous Red Blood Cells into Peripheral Vein, Percutaneous Approach (ICD-10-PCS; principal; 2017-03-11)
PROC: 30233N1 Transfusion of Nonautologous Red Blood Cells into Peripheral Vein, Percutaneous Approach (ICD-10-PCS; 2017-03-12)
DX: D62 Acute posthemorrhagic anemia (principal); E43 Unspecified severe protein-calorie malnutrition; K75.0 Abscess of liver; Z68.1 Body mass index [BMI] 19.9 or less, adult; I78.0 Hereditary hemorrhagic telangiectasia; Z66 Do not resuscitate; E03.9 Hypothyroidism, unspecified; B96.20 Unspecified Escherichia coli [E. coli] as the cause of diseases classified elsewhere

== ENCOUNTER 2017-03-13 21:56 | Inpatient (IN) | payer MEDICARE ==
[~2017-03-13] VITALS: Ht 160 cm; Wt 37.1 kg
[~2017-03-13 21:56] MED LIST changes: -DRON2.5C10 PO
[2017-03-13 21:57] VITALS: BP 114/39; PULSE 85; RESP 16; O2SAT 99
--- NOTE | 2017-03-13 22:56 | ED.REPORT ---
HPI-GI Bleed Date of Service Mar 13, 2017 ED Provider: Humberto Ledbetter MD Patient is an 81 year old female with a hx of Hereditary hemorrhagic telangiectasias with recurrent GI bleeds who presents to the ED via EMS s/p vomiting a small amount of blood at 2000 this evening after eating dinner. Associated symptoms include malaise. She reports she has chronic melena. She denies fever, lightheadedness, dizziness, or any other symptoms. She was discharged from the hospital at 1500 today. Her GI doctor is Flaco. Nursing Notes Stated Complaint: VOMITING BLOOD Chief Complaint: General Complaint Nursing Notes Reviewed: Yes Allergies: Coded Allergies: No Known Allergies (Verified , 03/13/17) Scheduled Linezolid (Linezolid) 600 Mg Tablet 600 MG PO BID Pantoprazole DR (Pantoprazole DR) 20 Mg Tablet.dr 20 MG PO BID Polyethylene Glycol 3350 (Miralax) 17 Gm Powd.pack 17 GM PO DAILY Thyroid,Pork ([place] Thyroid) 60 Mg Tablet 60 MG PO DAILY Scheduled PRN Bisacodyl (Dulcolax Rectal) 10 Mg Supp.rect 10 MG RC DAILY PRN PRN For Constipation For no BM after MOM Ondansetron ODT (Ondansetron ODT) 4 Mg Tab.rapdis 4 MG PO Q4H PRN PRN For Nausea General Time Seen by Provider: 22:52 Chief Complaint Chief Complaint: Vomiting bright red blood Bleeding Severity: Minimal Hx Obtained From: Patient, Other family... Arrived By: Ambulance Onset Occurred: 1 - 4 hours ago Context of Onset: Bleeding after ingestion Recent Healthcare: Recent hospitalization Similar Sx Previous: Yes Past Medical History Past Medical History Notes: GI: Dr. Sam Oncologist: Dr. Bynum Infectious disease: Dr. 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 Status post gastric perforation 10/25, requiring closure of the perforation. Hepatic abscess with drain in place. Acquired Hypothyroidism. 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 History of acute left upper extremity DVT at site of PICC line Iron deficiency anemia Past Surgical History Partial thyroidectomy Tonsillectomy Upper endoscopy with argon ablation of gastric AVMs at [facility] in September 2016 Laparoscopic closure of anterior gastric perforation with omental patch and washout (10/31/16) Bilateral cataract removal GI stent placement Family History Patient is adopted and does not know her family history The patient's son also has hereditary hemorrhagic telangiectasia and suffered from a brain abscess last year requiring hospitalization Granddaughter likely also has HHT due to recurrent nosebleeds however this is undiagnosed at this time Smoking History Never Smoker Social History Alcohol Use: Denies alcohol use Drug Use: Denies drug use Other Social History: Good social support, From out of town Ambulatory Status Independent Review of Systems Constitutional: Reports: Malaise, Denies: Fever GI: Reports: Hematemesis, Melena, Vomiting Neurologic: Denies: Dizziness, Lightheaded Complete sys rev & neg: except as marked. Physical Exam Initial Vital Signs Vital Signs (First) Date Time Temp Pulse Resp B/P Pulse Ox O2 Delivery O2 Flow Rate FiO2 03/13/17 21:57 36.9 85 16 114/39 99 Room Air Initial VS: Reviewed Head / Eyes: Atraumatic, Normocephalic Neck: Full range of motion Skin: Warm, Dry Neurologic: Alert, Oriented, Nonfocal Psychiatric: Mood/affect normal, Behavior normal, Normal thought content General/Constitutional: Awake, Alert Appearance / Presentation: Positive: Cachectic, Frail, Pale Respiratory / Chest: Breath sounds NL, Breath sounds = bilat, No respiratory distress Cardiovascular: Heart rate NL, Regular rhythm, Heart sounds NL Abdomen: Atraumatic, Soft, Non-tender Drain in RUQ with green, bilious discharge Rectum / Perineum: No gross blood brown stool with guaiac pos Interpretation & Diagnostics Lab Results Interpretation Result Diagram: 03/13/17 2335 03/13/17 2335 Test 03/13/17 23:05 03/13/17 23:35 Urine Color Dark yellow (YELLOW) Urine Appearance Clear (CLEAR,HAZY) Urine pH 5.5 (5.0-8.0) Urine Specific [place] 1.025 (1.003-1.035) Urine Protein Negativemg/dL (NEG,TRACE) Urine Glucose (UA) Negativemg/dL (NEGATIVE) Urine Ketones Negativemg/dL (NEGATIVE) Urine Occult Blood Negative (NEGATIVE) Urine Nitrite Negative (NEGATIVE) Urine Bilirubin Negative (NEGATIVE) Urine Urobilinogen 1.0mg/dL (NORMAL) Urine Leukocyte Esterase Negative (NEGATIVE) Urine RBC 0-2/hpf (0-2) Urine WBC 0-5/hpf (0-5) Urine Epithelial Cells Occasional/hpf (NONE-MOD) Urine Crystals Oxalic acid crystals (NONE Urine Bacteria None/hpf (NONE-FEW) Urine Hyaline Casts None/lpf (NONE) Urine Granular Casts None seen (NONE SEEN) Urine Waxy Casts None seen (NONE SEEN) Urine Red Blood Cell Casts None seen (NONE SEEN) Urine White Blood Cell Casts None seen (NONE SEEN) Urine Mucus Present (None Seen) Urine Trichomonas None seen (NONE SEEN) Urine Yeast None (NONE SEEN) Urinalysis Comment None Urine Culture Reflexed Not indicated White Blood Count 6.9th/mm3 (3.8-10.1) Red Blood Count 2.77mil/mm3 (3.90-5.20) Hemoglobin 8.5g/dL (12.0-15.6) Hematocrit 26.3% (35.0-46.0) Mean Corpuscular Volume 94.9fL (81-100) Mean Corpuscular Hemoglobin 30.7pg (27.0-35.0) Mean Corpuscular Hemoglobin Concent 32.3% (32.0-37.0) Red Cell Distribution Width 16.6% (12.3-15.4) Platelet Count 390bil/L (150-400) Neutrophils (%) (Auto) 73.6% (40-74) Lymphocytes (%) (Auto) 11.8% (14-46) Monocytes (%) (Auto) 11.9% (4-12) Eosinophils (%) (Auto) 2.2% (0-5) Basophils (%) (Auto) 0.4% (0-3) Prothrombin Time 10.6sec (8.1-12.5) Prothromb Time International Ratio 0.99ratio Sodium Level 135mEq/L (134-144) Potassium Level 4.3mEq/L (3.5-5.2) Chloride Level 100mEq/L (97-108) Carbon Dioxide Level 22mmol/L (18-29) Blood Urea Nitrogen 17mg/dL (8-27) Creatinine 0.40mg/dL (0.57-1.00) Estimat Glomerular Filtration Rate 218mL/min (>59) Glucose Level 110mg/dL (60-99) Calcium Level 8.5mg/dL (8.5-10.1) Total Bilirubin 0.4mg/dL (0.0-1.2) Aspartate Amino Transf (AST/SGOT) 12U/L (0-50) Alanine Aminotransferase (ALT/SGPT) 8U/L (0-32) Alkaline Phosphatase 288U/L (25-165) Total Protein 4.8g/dL (6.4-8.4) Albumin 2.6g/dL (3.4-5.0) ECG Interpretation ECG Interpretation: Sinus [address], T chnges Time: 23:08 Interpreted by: ED physician Re-Eval/Medical Decision Med Decision/Clinical Course 81-year-old female with history of hereditary hemorrhagic telangiectasia and chronic GI bleeds, liver abscess with drain who was discharged from the hospital earlier this morning presenting with recurrent hematemesis. Her hemoglobin is 8.5 presently in comparison to 10.5 this morning. She is hemodynamically stable. She is guaiac positive with dark brown stools small specks melena. She was given IV PPI and placed on PPI drip. Typed and crossed for 2 units PRBCs pending repeat H&H. Admitted to hospitalist service. Re-Evaluation/Progress : Time of Eval: 00:29 Re-Evaluation/Progress Note: Discussed plan for admission. Patient understands and agrees with plan. All questions addressed at this time Consultation : Referral / Consult Name: Gladys Fowler DO Consulted With: Hospitalist Call Returned at: 01:08 Electrical Systems Drafter: Will see patient, Agrees with eval, Agrees with plan, Accepts admit Note: Discussed pt's case. Accepts admit. Counseled Regarding: Diagnosis, Lab results, Need for admission Discharge & Departure Impression: Primary Impression: GI bleed GI bleed type/associated pathology: unspecified gastrointestinal hemorrhage type Qualified Code: K92.2 - Gastrointestinal hemorrhage, unspecified Disposition: ADMITTED TO HOSPITAL Discharge Condition All VS Reviewed: Yes Condition: Stable Referrals: Macy Baird MD (PCP) Scribe Attestation Portions of this note were transcribed by Geneva Alfonso. I, Dr. Ledbetter personally performed the history, physical exam and medical decision-making; I reviewed and confirmed the accuracy of the information in the transcribed note. Signed by: Geneva Alfonso 03/14/17, 0113 copies to: Macy Baird MD, Ben M MD Mar 13, 2017 22:56 GENEVA ALFONSO Mar 13, 2017 23:18
[2017-03-13] MEDS ORDERED: Pantoprazole 4 mg/mL 10 mL Inj IVPUSH ONE (23:20)
[2017-03-13] MEDS ORDERED: Ondansetron 2 mg/mL 2 mL Inj IVPUSH PRN (23:20)
[2017-03-13 23:31] LABS: COLOR,URINE DARK YELLOW (YELLOW)
[2017-03-13 23:32] LABS: APPEARANCE,URINE CLEAR (CLEAR,HAZY); OCCULT BLOOD,URINE NEGATIVE (NEGATIVE); PH,URINE 5.5 (5.0-8.0)
[2017-03-13 23:43] LABS: BASOPHILS % (AUTO) 0.4 % (0-3); EOSINOPHILS % (AUTO) 2.2 % (0-5); MONOCYTES % (AUTO) 11.9 % (4-12); Mean Corpuscular Hemoglobin 30.7 pg (27.0-35.0); Mean Corpuscular Volume 94.9 fL (81-100); NEUTROPHILS % (AUTO) 73.6 % (40-74); Platelet Count 390 bil/L (150-400)
[2017-03-13 23:48] VITALS: BP 119/49; PULSE 88; RESP 16; O2SAT 99
[2017-03-14] VITALS (11 sets, daily range): BP systolic 7–122; BP diastolic 49–68; PULSE 86–96; RESP 14–18; O2SAT 96–99
[2017-03-14] LABS: INR 0.99 ratio
[2017-03-14] MEDS ORDERED: Pantoprazole Inj 80 MG, Pharmacy To Mix 1 EA in 0.9% Sodium Chloride 80 ML IV ONE ×2 (00:25)
[2017-03-14] MEDS ORDERED: Alum-Mag Hydrox-Simeth 30 mL Suspension PO PRN ×2 (01:15→02:35)
[2017-03-14] MEDS ORDERED: Ondansetron 2 mg/mL 2 mL Inj IVPUSH PRN ×2 (01:15→02:35)
[2017-03-14] MEDS ORDERED: 0.9% Sodium Chloride 1,000 ML IV SCH (02:33)
[2017-03-14] MEDS ORDERED: Polyethylene Glycol (PEG) 17 Gm Powder PO PRN (02:35)
--- NOTE | 2017-03-14 02:58 | PCM.HPMED ---
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 She had just been discharged from the hospital at 3:00 PM today. She reports associated malaise, as well as chronic melena, stating that her stools are typically tarry and black, and she is unable to tell if there has been a change in her stool. She denies any of her usual symptoms of anemia, such as fatigue, weakness, dizziness, or shortness of breath on exertion. She states her nausea and vomiting have resolved since admission. On admission, BP was 95/53. Hb 9.5, Hct 26.3. Her Hb had previously been 10.5 at 6:00 AM today. Alk phos was 288. Her GI doctor is [facility]. Review of Systems: Comprehensive review of systems conducted and was negative except for the pertinent positives listed above. 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 Multiple GI bleeds requiring ongoing biweekly transfusions Status post gastric perforation 10/25. Hepatic abscess with drain in place, recently changed at [facility] ([place], [place]) in 02/22 Acquired Hypothyroidism Uterine fibroid mass. Malnutrition Acute VRE bacteremia History of acute left upper extremity DVT Iron deficiency anemia Surgical History Partial thyroidectomy Tonsillectomy Upper endoscopy with argon ablation of gastric AVMs at [facility] in September 2016 Laparoscopic closure of anterior gastric perforation with omental patch and washout on 10/31/16 Bilateral cataract removal Percutaneous Hepatic drain, changed out 02/22 Family History Patient is adopted and does not know her family history. The patient's son also has hereditary hemorrhagic telangiectasia. Granddaughter likely also has HHT due to recurrent nosebleeds (undiagnosed at this time) Social History Hx Alcohol Use: Yes (social) Hx Substance Use: No Hx Tobacco Use: No Smoking Status: Never Smoker Exam Vital Signs Vital Sign - Last Date Time Temp Pulse Resp B/P Pulse Ox O2 Delivery O2 Flow Rate FiO2 03/14/17 01:58 36.7 94 16 95/53 99 Room Air Exam General: Alert, Oriented X3, Cooperative, No acute distress. Appears cachectic Head: Normocephalic, atraumatic. External ears normal. Eyes: PERRLA, EOMI. Anicteric sclerae. Conjunctivae pale. Mouth: Mouth normal, Mucous membranes moist/pink Neck: Neck supple with full range of motion. Chest& Lungs: Clear to auscultation bilaterally with no crackles, wheezes, or rhonchi. Cardiovascular: Regular rate/rhythm, Normal S1, Normal S2, No murmurs/rubs/ gallops Abdomen: Non-tender, Non-distended, No masses, Normoactive bowel tones, Soft. Drain in right upper quadrant with dark bilious material. Musculoskeletal: Normal range of motion Extremities: No cyanosis/clubbing/edema bilaterally Neurological: Grossly neurologically intact. 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 Acute blood loss anemia, present on admission. Recurring. 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 Pt had been discharged today, but dropped Hb by 2 over the day. Guaiac positive in the ED with specks of melena in stool. Pt is hemodynamically stable at this time. - 2 units PRBCs type & cross - Transfuse if Hb <7 - Continuing to monitor H/H - Protonix drip - Zofran PRN - Gastroenerology consult in AM Chronic liver abscess, present on admission. Ongoing. - Liver abscess drain in place, recently changed at [facility] ([place], [place]) 02/22. Per Dr Webber during her last admission, she is on Linezolid 600 mg BID. She states she is able to tolerate oral intake without vomiting at this time. - Continue linezolid 600 mg BID - Pt has follow up appointment with Dr. Webber next Friday, 03/19, at noon Hereditary hemorrhagic telangiectasia, present on admission. 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 Followed by Dr. Bynum as an outpatient. Hypothyroidism, chronic. - Patient has partial thyroidectomy. - Continue home armor thyroid Other Chronic Conditions Status post gastric perforation 10/25. Uterine fibroid mass. Malnutrition Hx VRE bacteremia History of acute left upper extremity DVT Iron deficiency anemia - Bowel regimen as needed - Antiemetic as needed Patient is admitted under inpatient status with expected length of stay greater than 2 midnights due to severity of presenting symptoms, risk of adverse event, and complexity of treatment plan. Pain Evaluation: Adequate Pain Control GI Prophylaxis: Proton Pump Inhibitor (pantoprazole gtt) VTE Prophylaxis: SCDs Resuscitation Status: Limited Interventions (Intubation OK. No CPR/defib.) Attending Statement The patient was seen and examined together with house staff on 03/14/2017 and I agree with the history, exam and plan as outlined in the note above. Josesito Norton Mar 14, 2017 02:58 Gladys Fowler DO Mar 14, 2017 05:10 Miralax 17 g daily Armor thyroid 60 mg daily - Bowel regimen as needed - Antiemetic as needed Patient is admitted under inpatient status with expected length of stay greater than 2 midnights due to severity of presenting symptoms, risk of adverse event, and complexity of treatment plan. Josesito Norton Mar 14, 2017 02:58
[2017-03-14 08:20] LABS: BASOPHILS % (AUTO) 1.1 % (0-3); EOSINOPHILS % (AUTO) 4.3 % (0-5); MONOCYTES % (AUTO) 14.2 % (4-12); Mean Corpuscular Hemoglobin 30.8 pg (27.0-35.0); Mean Corpuscular Volume 93.8 fL (81-100); NEUTROPHILS % (AUTO) 63.7 % (40-74); Platelet Count 225 bil/L (150-400)
[2017-03-14 09:54] LABS: APPEARANCE,URINE HAZY (CLEAR,HAZY); COLOR,URINE YELLOW (YELLOW); OCCULT BLOOD,URINE NEGATIVE (NEGATIVE); UROBILINOGEN,URINE NORMAL (NORMAL)
[2017-03-14] MEDS: Pantoprazole Inj 80 MG in 0.9% Sodium Chloride 80 ML IV SCH ×2 (11:34→21:16)
--- NOTE | 2017-03-14 12:27 | PCM.PNMED ---
Subjective Date of Service Mar 14, 2017 Subjective Patient seen and examined today. No events overnight. Hypotensive. Exam Vital Signs Vital Sign - Last Date Time Temp Pulse Resp B/P Pulse Ox O2 Delivery O2 Flow Rate FiO2 03/14/17 09:15 36.7 94 18 95/51 03/14/17 05:50 97 Room Air Intake and Output 03/13/17 03/13/17 03/14/17 Cumulative From/Thru 15:00 23:00 07:00 03/13/17 21:57 - 03/14/17 05:59 Intake Total 200 ml 200 ml Output Total 20 ml 20 ml Balance 180 ml 180 ml IV Total 200 ml 200 ml Drainage Total 20 ml 20 ml Exam General: Alert, Oriented X3, Cooperative, No acute distress. Appears cachectic Head: Normocephalic, atraumatic. External ears normal. Eyes: PERRLA, EOMI. Anicteric sclerae. Conjunctivae pale. Mouth: Mouth normal, Mucous membranes moist/pink Neck: Neck supple with full range of motion. Chest& Lungs: Clear to auscultation bilaterally with no crackles, wheezes, or rhonchi. Cardiovascular: Regular rate/rhythm, Normal S1, Normal S2, No murmurs/rubs/ gallops Abdomen: Non-tender, Non-distended, No masses, Normoactive bowel tones, Soft. Drain in right upper quadrant with dark bilious material. Musculoskeletal: Normal range of motion Extremities: No cyanosis/clubbing/edema bilaterally Neurological: Grossly neurologically intact. 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 Acute blood loss anemia, present on admission. Recurring. 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 Pt had been discharged today, but dropped Hb by 2 over the day. Guaiac positive in the ED with specks of melena in stool. Pt is hypotensive, but stable. - 2 units PRBCs type & cross - Transfuse if Hb <7 - Continuing to monitor H/H - Protonix drip - Zofran PRN - Gastroenerology consult Chronic liver abscess, present on admission. Ongoing. - Liver abscess drain in place, recently changed at [facility] [place] [facility] 02/22. Per Dr Webber during her last admission, she is on Linezolid 600 mg BID. She states she is able to tolerate oral intake without vomiting at this time. - Continue linezolid 600 mg BID - Pt has follow up appointment with Dr. Webber next Friday, 03/19, at noon Hereditary hemorrhagic telangiectasia, present on admission. 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 Followed by Dr. Bynum as an outpatient. Hypothyroidism, chronic. - Patient has partial thyroidectomy. - Continue home armor thyroid Other Chronic Conditions Status post gastric perforation 10/25. Uterine fibroid mass. Malnutrition Hx VRE bacteremia History of acute left upper extremity DVT Iron deficiency anemia - Bowel regimen as needed - Antiemetic as needed Dispo : .Pending clinical improvement, likely halfway. GI Prophylaxis: Proton Pump Inhibitor (pantoprazole gtt) VTE Prophylaxis: SCDs Resuscitation Status: Limited Interventions (Intubation OK. No CPR/defib.) Manjeet Peck MD Mar 14, 2017 12:27
--- NOTE | 2017-03-14 14:44 | PROG NOTE ---
[address] [address] PROGRESS NOTE PATIENT: STEWART UREÑA : 1935 MR#: [id number] ADMIT: 03/14/2017 JOB ID: [id number] DATE: 03/14/2017 INFECTIOUS DISEASE FOLLOW UP NOTE: REASON FOR FOLLOWUP: Hemoptysis in a patient with underlying VRE liver abscess. INTERVAL HISTORY: This is a patient we know extremely well from multiple admissions over the last 70 or 80 days. She went home just yesterday, spent a few hours at home, and then returned with hematemesis. She was found to be more anemic and received 2 units of blood. At this point, she feels back to her normal self. Throughout this episode, there were no fevers, chills, sweats, or any change in her overall status. PHYSICAL EXAMINATION: Reveals an afebrile woman. Temperature 36.7, pulse 86, respiratory rate 16, blood pressure 122/58, saturating well on room air. She is pale as she always is. Pale conjunctivae. Pale skin. Oral cavity without change. Lungs relatively clear. Cardiac tones without new murmur. Abdomen: Soft and nontender. Right upper quadrant drain still present. LABORATORIES: Include white count 4400, no left shift. Platelets stable at 225 but that is a drop from 390 typically. Creatinine less than 0.3. Urinalysis without white cells. Micro studies not done on this admission. Previously VRE grew from liver abscess. IMPRESSION: This is an extremely unfortunate patient with HTT as an underlying problem and recurrent gastrointestinal bleeds who has a complex liver abscess. Our recent cultures from the drain have grown only VRE and no other organisms, so we have concluded that the gram-negative rods that had been present in her liver abscess initially have been eradicated. Unfortunately the VRE is still present and we are pressing on with linezolid treatment even after several weeks as she has not so far demonstrated any neuropathy or thrombocytopenia. RECOMMENDATIONS: 1. The patient can be discharged back to [place] at any time on linezolid 600 b.i.d. 2. She has an appointment to see me Friday in clinic and at that time, we will be checking her laboratories. 3. ID will go ahead and sign off.
--- NOTE | 2017-03-14 14:54 | PCM.CHPMED ---
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 She was discharged yesterday afternoon, she started to feel sick to her stomach a few hours later, had a non remarkable dinner of turkey and dressing then at 20:00 had an episode of hematemesis with bright red blood. She had associated nausea, malaise, and noticed no change in her stool except that it was more frequent than usual as she tends to be constipated. She has experienced some aching around her hepatic drain that is not more than usual. She had her drain changed and stent placement at [facility] about 2 weeks ago. She has had some increased output since that time. She continues to receive blood transf[facility] every 2 weeks when not in the hospital. She is currently receiving a blood transfusion. She is experiencing no fever or chills, no shortness of breath, no residual nausea and has not vomited since last night. She states that she is feeling "not so bad". Review of Systems: A comprehensive review of systems was conducted with the patient and found to be negative except as above in the History of Present Illness. 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 Multiple GI bleeds requiring ongoing biweekly transfusions Status post gastric perforation 10/25. Hepatic abscess with drain in place, recently changed at [facility] in 02/22 Acquired Hypothyroidism Uterine fibroid mass. Malnutrition Acute VRE bacteremia History of acute left upper extremity DVT Iron deficiency anemia Surgical History Upper endoscopy with argon ablation of gastric AVMs at [facility] in September 2016 Laparoscopic closure of anterior gastric perforation with omental patch and washout on 10/31/16 Percutaneous Hepatic drain, changed out 02/22 Partial thyroidectomy Tonsillectomy Bilateral cataract removal Home Medications Bisacodyl 10 mg rectal daily PRN Linezolid 600 mg BID Zofran 4 mg q4h PNR nausea Protonix 20 mg BID Miralax 17 g daily Armor thyroid 60 mg daily Allergies: Coded Allergies: No Known Allergies (Verified , 03/13/17) Family History Family History Patient is adopted, neither of her 2 children have colon cancer, inflammatory bowel disease, or celiac disease. Social History Hx Alcohol Use: Yes (social)Hx Substance Use: NoHx Tobacco Use: No Smoking Status: Never Smoker Exam Vital Signs Vital Sign - Last Date Time Temp Pulse Resp B/P Pulse Ox O2 Delivery O2 Flow Rate FiO2 03/14/17 13:15 36.7 86 16 122/58 99 Room Air Intake and Output 03/13/17 03/13/17 03/14/17 Cumulative From/Thru 15:00 23:00 07:00 03/13/17 21:57 - 03/14/17 05:59 Intake Total 200 ml 200 ml Output Total 20 ml 20 ml Balance 180 ml 180 ml IV Total 200 ml 200 ml Drainage Total 20 ml 20 ml General: Alert, Oriented X3, Cooperative, No Acute Distress Head: Normal Eyes: PERRLA, EOMI Mouth: Mucous Membr Moist/[place] Chest & Lungs: Auscultation (clear bilaterally) Cardiovascular: Regular Rate/Rhythm, No Murmurs/Rubs/Gallops Abdomen: Non-tender, Non-distended, Normoactive bowel tones, Soft Extremities: No cyanosis/clubbing/edma bilat Skin: Significant Lesions (many hyperpigmented irregular lesions on back ) Neurological: Grossly Neurologically Intact Additional Information: BMI 14.5 Lab and Diagnostics Result Diagram: 03/14/17 0745 03/14/17 0745 Assessment & Plan Assessment Niesha Ford is an 81-year-old with past medical history remarkable for 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 After speaking to patient she feels like this is a mild episode for her as she has had many episodes of hematemesis. Recommendations: 1. IV protonix drip till discharge. 2. Once protonix drip stopped patient should take Dexilant 30mg PO BID 3. Benefit of EGD at this time is not likely to outweigh the risks as patient is not currently actively bleeding above her baseline. If her Hgb continues to drop after transfusion or if she has additional episodes of hematemesis please let us know immediately for intervention. Thank you for this interesting consult. I saw and examined the patient and agree with above. Problems: Pain Evaluation: Adequate Pain Control GI Prophylaxis: Proton Pump Inhibitor (pantoprazole gtt) VTE Prophylaxis: SCDs Resuscitation Status: Limited Interventions (Intubation OK. No CPR/defib.) copies to: Iggy Mcdonald MD, Erika R DO Mar 14, 2017 14:53 Iggy Mcdonald MD Mar 15, 2017 10:48
[2017-03-14] MEDS: Dextrose 5% 0.9% NaCl 1,000 ML IV SCH (16:58)
[2017-03-14] MEDS: HYDROmorphone 0.5 mg/0.5 mL iSecure Syringe IVPUSH PRN ×2 (19:24→21:25)
[2017-03-15] MEDS: HYDROmorphone 0.5 mg/0.5 mL iSecure Syringe IVPUSH PRN ×4 (02:30→20:47)
[2017-03-15] MEDS: Dextrose 5% 0.9% NaCl 1,000 ML IV SCH ×3 (02:34→23:18)
[2017-03-15 05:08] VITALS: BP 113/65; PULSE 84; RESP 16; O2SAT 100
[2017-03-15 06:42] LABS: BASOPHILS % (AUTO) 0.6 % (0-3); EOSINOPHILS % (AUTO) 6.7 % (0-5); MONOCYTES % (AUTO) 17.1 % (4-12); Mean Corpuscular Hemoglobin 30.3 pg (27.0-35.0); Mean Corpuscular Volume 93.9 fL (81-100); NEUTROPHILS % (AUTO) 59.3 % (40-74); Platelet Count 282 bil/L (150-400)
[2017-03-15] MEDS: Pantoprazole Inj 80 MG in 0.9% Sodium Chloride 80 ML IV SCH ×2 (08:33→19:22)
--- NOTE | 2017-03-15 09:04 | PCM.PNMED ---
Subjective Date of Service Mar 15, 2017 Subjective Patient seen and examined today. Denies any episodes hematemesis. Feels much better. Vitals stable. Exam Vital Signs Vital Sign - Last Date Time Temp Pulse Resp B/P Pulse Ox O2 Delivery O2 Flow Rate FiO2 03/15/17 05:08 36.6 84 16 113/65 100 Room Air Intake and Output 03/14/17 03/14/17 03/15/17 Cumulative From/Thru 15:00 23:00 07:00 03/13/17 21:57 - 03/15/17 06:43 Intake Total 550 ml 1220 ml 1948 ml 3918 ml Output Total 110 ml 582 ml 1500 ml 2212 ml Balance 440 ml 638 ml 448 ml 1706 ml Intake Oral 0 ml 0 ml 520 ml 520 ml IV Total 50 ml 1220 ml 1428 ml 2898 ml Packed Cells 500 ml 500 ml Output Urine Total 110 ml 550 ml 1500 ml 2160 ml Drainage Total 32 ml 52 ml # Bowel Movements 0 0 0 Exam General: Alert, Oriented X3, Cooperative, No acute distress. Appears cachectic Head: Normocephalic, atraumatic. External ears normal. Eyes: PERRLA, EOMI. Anicteric sclerae. Conjunctivae pale. Mouth: Mouth normal, Mucous membranes moist/pink Neck: Neck supple with full range of motion. Chest& Lungs: Clear to auscultation bilaterally with no crackles, wheezes, or rhonchi. Cardiovascular: Regular rate/rhythm, Normal S1, Normal S2, No murmurs/rubs/ gallops Abdomen: Non-tender, Non-distended, No masses, Normoactive bowel tones, Soft. Drain in right upper quadrant with dark bilious material. Musculoskeletal: Normal range of motion Extremities: No cyanosis/clubbing/edema bilaterally Neurological: Grossly neurologically intact. 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 Acute blood loss anemia, present on admission. Recurring. 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 Pt had been discharged today, but dropped Hb by 2 over the day. Guaiac positive in the ED with specks of melena in stool. Pt is hypotensive, but stable. - Hgb stabilized , will monitor H/H - Transfuse if Hb <7 - Protonix drip - Zofran PRN - Gastroenerology following, started patient on diet as tolerated Chronic liver abscess, present on admission. Ongoing. - Liver abscess drain in place, recently changed at [facility] 02/22. Per Dr Webber during her last admission, she is on Linezolid 600 mg BID. She states she is able to tolerate oral intake without vomiting at this time. - Continue linezolid 600 mg BID - ID consulted, continue current treatment and follow up outpatient Hereditary hemorrhagic telangiectasia, present on admission. 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 Followed by Dr. Bynum as an outpatient. Hypothyroidism, chronic. - Patient has partial thyroidectomy. - Continue home armor thyroid Leaking drain - leaks when flushed - will need IR guided revision/fixation on friday Other Chronic Conditions Status post gastric perforation 10/25. Uterine fibroid mass. Malnutrition Hx VRE bacteremia History of acute left upper extremity DVT Iron deficiency anemia - Bowel regimen as needed - Antiemetic as needed Dispo : .Pending clinical improvement, likely back to [place] if Hgb stable. GI Prophylaxis: Proton Pump Inhibitor (pantoprazole gtt) VTE Prophylaxis: SCDs Resuscitation Status: Limited Interventions (Intubation OK. No CPR/defib.) Manjeet ePck MD Mar 15, 2017 09:04
[2017-03-15 09:20] VITALS: BP 109/59; PULSE 90; RESP 17; O2SAT 94
--- NOTE | 2017-03-15 10:51 | PCM.PNMED ---
Subjective Date of Service Mar 15, 2017 Subjective No more hemetemesis. Tolerate diet yesterday. Exam Vital Signs Vital Sign - Last Date Time Temp Pulse Resp B/P Pulse Ox O2 Delivery O2 Flow Rate FiO2 03/15/17 09:20 36.9 90 17 109/59 94 Room Air Intake and Output 03/14/17 03/14/17 03/15/17 Cumulative From/Thru 15:00 23:00 07:00 03/13/17 21:57 - 03/15/17 06:43 Intake Total 550 ml 1220 ml 1948 ml 3918 ml Output Total 110 ml 582 ml 1500 ml 2212 ml Balance 440 ml 638 ml 448 ml 1706 ml Intake Oral 0 ml 0 ml 520 ml 520 ml IV Total 50 ml 1220 ml 1428 ml 2898 ml Packed Cells 500 ml 500 ml Output Urine Total 110 ml 550 ml 1500 ml 2160 ml Drainage Total 32 ml 52 ml # Bowel Movements 0 0 0 Exam Pt is alert oriented and comfortable HEENT no icterus LUNG CTA CV RRR S1S2 ABD soft nt nd nabs EXT no pittting edema of ankles Lab and Diagnostics Result Diagram: 03/15/17 0600 03/15/17 0600 Assessment & Plan Niesha Ford is an 81-year-old with past medical history remarkable for 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 After speaking to patient she feels like this is a mild episode for her as she has had many episodes of hematemesis. SHe has not had any hemetemesis and hgb stable. Recommendations: 1. IV protonix drip till discharge. 2. Once protonix drip stopped patient should take Dexilant 30mg PO BID 3. Benefit of EGD at this time is not likely to outweigh the risks as patient is not currently actively bleeding above her baseline. If her Hgb continues to drop after transfusion or if she has additional episodes of hematemesis please let us know immediately for intervention. 4. Defer the drainage leakage to interventional radiology for possible repositioning. 5. Defer the abscess management to the ID service. GI Prophylaxis: Proton Pump Inhibitor (pantoprazole gtt) VTE Prophylaxis: SCDs Resuscitation Status: Limited Interventions (Intubation OK. No CPR/defib.) Iggy Mcdonald MD Mar 15, 2017 10:51
[2017-03-15 15:56] VITALS: BP 131/61; PULSE 90; RESP 16; O2SAT 99
[2017-03-15 22:47] VITALS: BP 114/51; PULSE 92; RESP 16; O2SAT 96
[2017-03-16] MEDS: Pantoprazole Inj 80 MG in 0.9% Sodium Chloride 80 ML IV SCH ×3 (00:30→19:21)
[2017-03-16] MEDS: HYDROmorphone 0.5 mg/0.5 mL iSecure Syringe IVPUSH PRN ×4 (00:50→16:58)
[2017-03-16 06:02] LABS: Mean Corpuscular Volume 96.1 fL (81-100)
[2017-03-16 06:25] LABS: INR 1.02 ratio
[2017-03-16 06:26] VITALS: BP 104/51; PULSE 83; RESP 16; O2SAT 98
[2017-03-16] MEDS: Dextrose 5% 0.9% NaCl 1,000 ML IV SCH ×2 (08:25→17:17)
--- NOTE | 2017-03-16 09:51 | PCM.PNMED ---
Subjective Date of Service Mar 16, 2017 Subjective Patient seen and examined today. She said she is doing good. No episodes of hematemesis. Vitals stable. Exam Vital Signs Vital Sign - Last Date Time Temp Pulse Resp B/P Pulse Ox O2 Delivery O2 Flow Rate FiO2 03/16/17 06:26 36.7 83 16 104/51 98 Room Air Intake and Output 03/15/17 03/15/17 03/16/17 Cumulative From/Thru 15:00 23:00 07:00 03/13/17 21:57 - 03/16/17 06:57 Intake Total 556 ml 2156 ml 6630 ml Output Total 40 ml 1100 ml 770 ml 4122 ml Balance -40 ml -544 ml 1386 ml 2508 ml Intake Oral 556 ml 100 ml 1176 ml IV Total 2056 ml 4954 ml Packed Cells 500 ml Output Urine Total 1100 ml 750 ml 4010 ml Drainage Total 40 ml 20 ml 112 ml # Bowel Movements 1 0 1 Exam General: Alert, Oriented X3, Cooperative, No acute distress. Appears cachectic Head: Normocephalic, atraumatic. External ears normal. Eyes: PERRLA, EOMI. Anicteric sclerae. Conjunctivae pale. Mouth: Mouth normal, Mucous membranes moist/pink Neck: Neck supple with full range of motion. Chest& Lungs: Clear to auscultation bilaterally with no crackles, wheezes, or rhonchi. Cardiovascular: Regular rate/rhythm, Normal S1, Normal S2, No murmurs/rubs/ gallops Abdomen: Non-tender, Non-distended, No masses, Normoactive bowel tones, Soft. Drain in right upper quadrant with dark bilious material. Musculoskeletal: Normal range of motion Extremities: No cyanosis/clubbing/edema bilaterally Neurological: Grossly neurologically intact. 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 Acute blood loss anemia, present on admission. Recurring. 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 Pt was a day ago discharged, but dropped Hb by 2 over the day. Guaiac positive in the ED with specks of melena in stool. Pt is hypotensive , but stable. - Hgb went down today to 8.4 , will monitor H/H - Transfuse if Hb <7 - Protonix drip till discharge - Zofran PRN - Gastroenerology following, no intervention at this point , dc on dexilant 30 mg BID. Discussed the case with Dr. Mcdonald, he recommended patient be transferred to [facility] to reassess and treat the patient as this not a lifestyle she wants. Got in touch with Dr. from [facility] , Dr. Trujillo. Talked to admissions, they could not accept her due to insurance as [facility] is not associated with [facility].Talked to Dr. Scruggs at [facility], accepted the admission for transfer. Waiting for hospitalist to call, and initiating the transfer. Chronic liver abscess, present on admission. Ongoing. - Liver abscess drain in place, recently changed at [facility] 02/22. Per Dr Webber during her last admission, she is on Linezolid 600 mg BID. She states she is able to tolerate oral intake without vomiting at this time. - Continue linezolid 600 mg BID - ID consulted, continue current treatment and follow up outpatient Hereditary hemorrhagic telangiectasia, present on admission. 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 Followed by Dr. Bynum as an outpatient. Hypothyroidism, chronic. - Patient has partial thyroidectomy. - Continue home armor thyroid Leaking drain - leaks when flushed - will need IR guided revision/fixation on friday Other Chronic Conditions Status post gastric perforation 10/25. Uterine fibroid mass. Malnutrition Hx VRE bacteremia History of acute left upper extremity DVT Iron deficiency anemia - Bowel regimen as needed - Antiemetic as needed Dispo : Talked to Dr. Scruggs at [facility], accepted the admission for transfer.Talked to Dr. Dunne (hospitalist) at [facility]. GI Prophylaxis: Proton Pump Inhibitor (pantoprazole gtt) VTE Prophylaxis: SCDs Resuscitation Status: Limited Interventions (Intubation OK. No CPR/defib.) Time spent 45 mins Majneet Peck MD Mar 16, 2017 09:28
--- NOTE | 2017-03-16 10:36 | PCM.PNMED ---
Subjective Date of Service Mar 16, 2017 Subjective Patient reports feeling well this morning. She has not had any vomiting or signs of increased bleeding. She has not noticed any change in her stool, last bowel movement was yesterday. She is not experiencing any fever, chills, or nausea. Exam Vital Signs Vital Sign - Last Date Time Temp Pulse Resp B/P Pulse Ox O2 Delivery O2 Flow Rate FiO2 03/16/17 06:26 36.7 83 16 104/51 98 Room Air Intake and Output 03/15/17 03/15/17 03/16/17 Cumulative From/Thru 15:00 23:00 07:00 03/13/17 21:57 - 03/16/17 06:57 Intake Total 556 ml 2156 ml 6630 ml Output Total 40 ml 1100 ml 770 ml 4122 ml Balance -40 ml -544 ml 1386 ml 2508 ml Intake Oral 556 ml 100 ml 1176 ml IV Total 2056 ml 4954 ml Packed Cells 500 ml Output Urine Total 1100 ml 750 ml 4010 ml Drainage Total 40 ml 20 ml 112 ml # Bowel Movements 1 0 1 Exam General: No acute distress, elderly, frail, appropriately interactive HEENT: Normocephalic, atraumatic. External ears without defect. Pupils equal, round, and reactive to light and accommodation. Anicteric sclerae, moist conjunctivae, and no lid lag. Oropharynx free of erythema and cobble stoning with moist mucosa. Neck: Supple with full range of motion. No jugular venous distension. Cardiovascular: Regular rate and rhythm with no murmurs, rubs, or gallops appreciated Pulmonary: Clear to auscultation bilaterally with no wheezes or rhonchi. Mild crackles at bases that cleared with deep inspiration Normal respiratory effort with no use of accessory muscles. Abdomen: Bowel tones present. Soft, nontender, nondistended. No hepatosplenomegaly or masses appreciated. Extremities: No clubbing, cyanosis, edema, or lymphadenopathy appreciated. Skin: Normal temperature, turgor, many hyperpigmented irregular lesions on back. Neurological: Cranial nerves grossly intact. No known gait impairment. Psychiatric: Normal mood and affect. Alert and oriented to person, place, and time. 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 After speaking to patient she feels like this is a mild episode for her as she has had many episodes of hematemesis. She has not had any hemetemesis, hgb 8.4. Recommendations: 1. IV protonix drip till discharge. 2. Once protonix drip stopped patient should take Dexilant 30mg PO BID if the patient has trouble obtaining this medication she was instructed to take 40 mg Protonix by mouth twice a day until she is able to obtain the Dexilant. 3. Recommend transfer to [facility] for cauterization in hopes of giving patient a longer term solution and decreased time spent in hospital. 4. Defer the drainage leakage to interventional radiology for possible repositioning, this could also be addressed averaging [place]. 5. Defer the abscess management to the ID service. 6. Clear liquid diet to decrease acid production thus the risk of severe bleed. I saw and examined the patient. Agree with the above. GI Prophylaxis: Proton Pump Inhibitor (pantoprazole gtt) VTE Prophylaxis: SCDs Resuscitation Status: Limited Interventions (Intubation OK. No CPR/defib.) copies to: Macy Baird MD; Iggy Mcdonald MD, Erika R DO Mar 16, 2017 07:52 Iggy Mcdonald MD Mar 19, 2017 14:07
[2017-03-16 12:38] VITALS: BP 109/62; PULSE 83; RESP 17; O2SAT 95
[2017-03-16 16:31] VITALS: BP 117/58; PULSE 77; RESP 16; O2SAT 98
--- NOTE | 2017-03-16 17:04 | PCM.DIMED ---
Discharge Instructions Date of Service Mar 16, 2017 Dates of Hospitalization Mar 14, 2017 at 01:11 Discharge Diagnosis Discharge Diagnosis GI bleed 2/2 HHT Diet Discharge Diet: Other (Clear liquid) Attending's Statement Patient being discharged to [facility], discussed with Dr. Dunne (hospitalist) Manjeet Peck MD Mar 16, 2017 17:04
[2017-03-16 19:27] VITALS: BP 153/55; PULSE 86; RESP 16; O2SAT 99
--- NOTE | 2017-03-17 12:00 | PCM.DC.MED ---
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 She was discharged yesterday afternoon, she started to feel sick to her stomach a few hours later, had a non remarkable dinner of turkey and dressing then at 20:00 had an episode of hematemesis with bright red blood. She had associated nausea, malaise, and noticed no change in her stool except that it was more frequent than usual as she tends to be constipated. She has experienced some aching around her hepatic drain that is not more than usual. She had her drain changed and stent placement at [facility] about 2 weeks ago. She has had some increased output since that time. She continues to receive blood transfusions at the [facility] every 2 weeks when not in the hospital. She is currently receiving a blood transfusion. She is experiencing no fever or chills, no shortness of breath, no residual nausea and has not vomited since last night. She states that she is feeling "not so bad". 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 Acute blood loss anemia, present on admission. Recurring. 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 Pt was a day ago discharged, but dropped Hb by 2 over the day. Guaiac positive in the ED with specks of melena in stool. Pt is hypotensive , but stable. - Hgb went down today to 8.4 , will monitor H/H - Transfuse if Hb <7 - Protonix drip till discharge - Zofran PRN - Gastroenerology following, no intervention at this point , dc on dexilant 30 mg BID. Discussed the case with Dr. Mcdonald, he recommended patient be transferred to [facility] to reassess and treat the patient as this not a lifestyle she wants. Got in touch with Dr. from [facility] , Dr. Trujillo. Talked to admissions, they could not accept her due to insurance as [place] is not associated with [facility].Talked to Dr. Scruggs at [facility], accepted the admission for transfer. Waiting for hospitalist to call, and initiating the transfer. Chronic liver abscess, present on admission. Ongoing. - Liver abscess drain in place, recently changed at [facility] 02/22. Per Dr Webber during her last admission, she is on Linezolid 600 mg BID. She states she is able to tolerate oral intake without vomiting at this time. - Continue linezolid 600 mg BID - ID consulted, continue current treatment and follow up outpatient Hereditary hemorrhagic telangiectasia, present on admission. 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 Followed by Dr. Bynum as an outpatient. Hypothyroidism, chronic. - Patient has partial thyroidectomy. - Continue home armor thyroid Leaking drain - leaks when flushed - will need IR guided revision/fixation on friday Other Chronic Conditions Status post gastric perforation 10/25. Uterine fibroid mass. Malnutrition Hx VRE bacteremia History of acute left upper extremity DVT Iron deficiency anemia - Bowel regimen as needed - Antiemetic as needed Dispo : Talked to Dr. Scruggs at [facility], accepted the admission for transfer.Talked to Dr. Dunne (hospitalist) at [facility]. Dr. Scruggs (GI) to assess her for further treatment. Exam Vital Signs (Last) Date Time Temp Pulse Resp B/P Pulse Ox O2 Delivery O2 Flow Rate FiO2 03/16/17 19:27 36.8 86 16 153/55 99 Room Air Test 03/14/17 08:52 03/15/17 06:00 03/16/17 05:30 03/16/17 16:05 Urine Color Yellow (YELLOW) Urine Appearance Hazy (CLEAR,HAZY) Urine pH 6.0 (5.0-8.0) Urine Specific [place] 1.015 (1.003-1.035) Urine Protein Negativemg/dL (NEG,TRACE) Urine Glucose (UA) Negativemg/dL (NEGATIVE) Urine Ketones Negativemg/dL (NEGATIVE) Urine Occult Blood Negative (NEGATIVE) Urine Nitrite Negative (NEGATIVE) Urine Bilirubin Negative (NEGATIVE) Urine Urobilinogen Normalmg/dL (NORMAL) Urine Leukocyte Esterase Negative (NEGATIVE) Urine RBC 0-2/hpf (0-2) Urine WBC 0-5/hpf (0-5) Urine Epithelial Cells Occasional/hpf (NONE-MOD) Urine Crystals None seen (NONE SEEN) Urine Bacteria None/hpf (NONE-FEW) Urine Hyaline Casts None/lpf (NONE) Urine Granular Casts None seen (NONE SEEN) Urine Waxy Casts None seen (NONE SEEN) Urine Red Blood Cell Casts None seen (NONE SEEN) Urine White Blood Cell Casts None seen (NONE SEEN) Urine Mucus Present (None Seen) Urine Trichomonas None seen (NONE SEEN) Urine Yeast None (NONE SEEN) Urinalysis Comment Transitional epi Urine Culture Reflexed Not indicated Neutrophils (%) (Auto) 59.3% (40-74) Lymphocytes (%) (Auto) 15.4% (14-46) Monocytes (%) (Auto) 17.1% (4-12) Eosinophils (%) (Auto) 6.7% (0-5) Basophils (%) (Auto) 0.6% (0-3) Activated Partial Thromboplast Time 26.1sec (22.8-33.0) Sodium Level 138mEq/L (134-144) Potassium Level 4.3mEq/L (3.5-5.2) Chloride Level 104mEq/L (97-108) Carbon Dioxide Level 21mmol/L (18-29) Blood Urea Nitrogen 11mg/dL (8-27) Creatinine 0.30mg/dL (0.57-1.00) Estimat Glomerular Filtration Rate 304mL/min (>59) Glucose Level 87mg/dL (60-99) Calcium Level 8.5mg/dL (8.5-10.1) Total Bilirubin 0.8mg/dL (0.0-1.2) Aspartate Amino Transf (AST/SGOT) 11U/L (0-50) Alanine Aminotransferase (ALT/SGPT) 8U/L (0-32) Alkaline Phosphatase 272U/L (25-165) Total Protein 4.4g/dL (6.4-8.4) Albumin 2.4g/dL (3.4-5.0) White Blood Count 5.8th/mm3 (3.8-10.1) Red Blood Count 2.80mil/mm3 (3.90-5.20) Mean Corpuscular Volume 96.1fL (81-100) Mean Corpuscular Hemoglobin 30.0pg (27.0-35.0) Mean Corpuscular Hemoglobin Concent 31.2% (32.0-37.0) Red Cell Distribution Width 16.8% (12.3-15.4) Platelet Count 397bil/L (150-400) Prothrombin Time 10.9sec (8.1-12.5) Prothromb Time International Ratio 1.02ratio Hemoglobin 8.2g/dL (12.0-15.6) Hematocrit 26.4% (35.0-46.0) Discharge Medications Discharge Medications Linezolid (Linezolid) 600 Mg Tablet 600 MG PO BID Prescribed by: VIC MOSELEY DO Pantoprazole (Pantoprazole DR) 20 Mg Tablet.dr 20 MG PO BID (Reported) Polyethylene Glycol 3350 (Miralax) 17 Gm Powd.pack 17 GM PO DAILY (Reported) Thyroid,Pork ([place] Thyroid) 60 Mg Tablet 60 MG PO DAILY (Reported) As needed Bisacodyl (Dulcolax Rectal) 10 Mg Supp.rect 10 MG RC DAILY PRN PRN For Constipation (Reported) For no BM after MOM Ondansetron ODT (Ondansetron ODT) 4 Mg Tab.rapdis 4 MG PO Q4H PRN PRN For Nausea (Reported) Followup Plan Disposition: Transfer to [facility] for further management and continuity of care Discharge Diet: Other (Clear liquid) Time spent 45 mins Manjeet Peck MD Mar 17, 2017 12:00
== END 2017-03-16 20:00 | disposition short-term general hospital (02) | DRG 377 ==
LOC: SED 21:56 → MPC 03-14 01:11
PROVIDERS: ADMIT Internal Medicine; ATTEND Internal Medicine
PROC: 30233N1 Transfusion of Nonautologous Red Blood Cells into Peripheral Vein, Percutaneous Approach (ICD-10-PCS; principal; 2017-03-14)
DX: K92.0 Hematemesis (principal); K75.0 Abscess of liver; D62 Acute posthemorrhagic anemia; E46 Unspecified protein-calorie malnutrition; Z68.1 Body mass index [BMI] 19.9 or less, adult; I78.0 Hereditary hemorrhagic telangiectasia; E03.9 Hypothyroidism, unspecified; Z86.718 Personal history of other venous thrombosis and embolism; Z66 Do not resuscitate

== ENCOUNTER 2017-03-20 15:54 | Emergency (ER) | payer MEDICARE ==
[~2017-03-20] VITALS: Ht 160 cm; Wt 41.0 kg
[2017-03-20 16:04] VITALS: BP 109/38; PULSE 121; RESP 20; O2SAT 97
--- NOTE | 2017-03-20 16:16 | ED.REPORT ---
HPI-Fever Date of Service Mar 20, 2017 ED Provider: Alvaro Dahl History of Present Illness: fever since this afternoon, stomach does not feel right, no nausea, pulled drain which was present since December from liver [address] Webber a few days ago. [facility], Misa and Oli are providers. Arrives from [place] Pt is an 81 year old female with a history of hepatic abscess surgery who presents to the ED via EMS complaining of fever (Tmax - 105 F) onset today. She c/o associated nausea and abdominal pain. She denies dysuria, diarrhea, chest pain, SOB, vomiting, diaphoresis, and any other symptoms. The pt reports that she was discharged from [facility] 2 days ago from a surgical intervention for a liver abscess. Pt saw Dr. Webber yesterday, but she did not have a fever at the time. The pt took Tylenol 3 hours prior to arrival with relief. Nursing Notes Stated Complaint: SEPSIS Chief Complaint: General Complaint Nursing Notes Reviewed: Yes Allergies: Coded Allergies: No Known Allergies (Verified , 03/13/17) Scheduled Linezolid (Linezolid) 600 Mg Tablet 600 MG PO BID Pantoprazole DR (Pantoprazole DR) 20 Mg Tablet.dr 20 MG PO BID Polyethylene Glycol 3350 (Miralax) 17 Gm Powd.pack 17 GM PO DAILY Thyroid,Pork ([place]arson Thyroid) 60 Mg Tablet 60 MG PO DAILY Scheduled PRN Bisacodyl (Dulcolax Rectal) 10 Mg Supp.rect 10 MG RC DAILY PRN PRN For Constipation For no BM after MOM Ondansetron ODT (Ondansetron ODT) 4 Mg Tab.rapdis 4 MG PO Q4H PRN PRN For Nausea General Time Seen by MD: 16:15 Chief Complaint Fever currently Hx Obtained From: Patient Arrived By: Walk-in Onset Occurred: 5 - 8 hours ago Symptom Duration: Since onset Location: : Abdomen Quality: Painful Severity: Current: Moderate Severity: Maximum: Moderate Recent Healthcare: Recent doctor visit Similar Sx Previous: No Past Medical History Past Medical History Notes: GI: Dr. Sam Oncologist: Dr. Bynum Infectious disease: Dr. Webber Patient discharged from 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 Status post gastric perforation 10/25, requiring closure of the perforation. 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 at [facility] in September 2016 Laparoscopic closure of anterior gastric perforation with omental patch and washout (10/31/16) Bilateral cataract removal GI stent placement s/p percutaneous drainage of hepatic abscess Reports: Tonsillectomy Family History Patient is adopted and does not know her family history The patient's son also has hereditary hemorrhagic telangiectasia and suffered from a brain abscess last year requiring hospitalization Granddaughter likely also has HHT due to recurrent nosebleeds however this is undiagnosed at this time Smoking History Never Smoker Social History Alcohol Use: Denies alcohol use Drug Use: Denies drug use Other Social History: Good social support, From out of town Occupation , [facility] also Ambulatory Status Independent Review of Systems Basic Review of Systems Musculoskeletal: No extremity swelling, No extremity pain, Full range of motion , Joints NL Allergy / Immune: No allergy Psychiatric: Normal thought content Constitutional: Reports: Fever Respiratory: Denies: Non-productive cough, Shortness of breath Cardiovascular: Denies: Chest pain GI: Reports: Abdominal pain, Nausea, Denies: Diarrhea, Vomiting Female: Denies: Dysuria Skin: Denies Diaphoresis Complete sys rev & neg: except as marked. Physical Exam Initial Vital Signs Vital Signs (First) Date Time Temp Pulse Resp B/P Pulse Ox O2 Delivery O2 Flow Rate FiO2 03/20/17 16:04 39.2 121 20 109/38 97 Room Air Initial VS: Reviewed Head / Eyes: Atraumatic, Normocephalic Abdomen / GI: Soft, Non-tender Extremities: Vascular intact, Neuro intact Psychiatric: Mood/affect normal, Behavior normal General/Constitutional: Awake, Alert, Cooperative Appearance / Presentation: Positive: Frail Not as toxic appearing as vitals would suggest. Neck: Atraumatic, Full range of motion Respiratory / Chest: Atraumatic, Breath sounds NL, Breath sounds = bilat Bandage over right chest. Tachypneic. Cardiovascular: Regular rhythm, Heart sounds NL Heart Rate / Rhythm: Positive: Tachycardia No edema in legs. Skin: Atraumatic, Warm, Dry, Intact Neurologic: Oriented X3, Speech NL Abdomen: Soft, No guarding, No rebound Mild RUQ tenderness. Interpretation & Diagnostics US ABDOMEN: IMPRESSION: 1. Ill-defined echogenic region in the right hepatic lobe in the area of the previously identified abscess. Findings may reflect residual gas within the collection limiting evaluation. 2. No definite intra-abdominal free fluid. Dictated by: Anuj Linares M.D. on 03/20/2017 at 19:17 Lab Results Interpretation Result Diagram: 03/20/17 2233 03/20/17 1754 Test 03/20/17 17:54 03/20/17 18:16 03/20/17 18:35 03/20/17 18:48 Sodium Level 136mEq/L (134-144) Potassium Level 3.7mEq/L (3.5-5.2) Chloride Level 98mEq/L (97-108) Carbon Dioxide Level 21mmol/L (18-29) Blood Urea Nitrogen 16mg/dL (8-27) Creatinine 0.38mg/dL (0.57-1.00) Estimat Glomerular Filtration Rate 232mL/min (>59) Glucose Level 114mg/dL (60-99) Calcium Level 8.6mg/dL (8.5-10.1) Total Bilirubin 0.6mg/dL (0.0-1.2) Aspartate Amino Transf (AST/SGOT) 40U/L (0-50) Alanine Aminotransferase (ALT/SGPT) 25U/L (0-32) Alkaline Phosphatase 400U/L (25-165) Troponin T < 0.010ug/L (0.0-0.011) Total Protein 4.8g/dL (6.4-8.4) Albumin 2.5g/dL (3.4-5.0) Neutrophils (%) (Auto) 85.2% (40-74) Lymphocytes (%) (Auto) 4.0% (14-46) Monocytes (%) (Auto) 10.3% (4-12) Eosinophils (%) (Auto) 0% (0-5) Basophils (%) (Auto) 0.2% (0-3) Prothrombin Time 12.7sec (8.1-12.5) Prothromb Time International Ratio 1.18ratio Activated Partial Thromboplast Time 32.3sec (22.8-33.0) Hold Blue Top Tube Received (Received) Hold Red Top Tube Received (Received) Hold [place] Top Tube Received (Received) Hold [place] Top Tube Received (Received) Test 03/20/17 22:33 03/20/17 22:55 White Blood Count 13.9th/mm3 (3.8-10.1) Red Blood Count 2.64mil/mm3 (3.90-5.20) Hemoglobin 7.8g/dL (12.0-15.6) Hematocrit 24.1% (35.0-46.0) Mean Corpuscular Volume 91.3fL (81-100) Mean Corpuscular Hemoglobin 29.5pg (27.0-35.0) Mean Corpuscular Hemoglobin Concent 32.4% (32.0-37.0) Red Cell Distribution Width 17.3% (12.3-15.4) Platelet Count 249bil/L (150-400) Lactic Acid Level 4.1mmol/L (0.4-2.0) Urine Color Yellow (YELLOW) Urine Appearance Clear (CLEAR,HAZY) Urine pH 5.5 (5.0-8.0) Urine Specific [place] 1.015 (1.003-1.035) Urine Protein Negativemg/dL (NEG,TRACE) Urine Glucose (UA) Negativemg/dL (NEGATIVE) Urine Ketones Negativemg/dL (NEGATIVE) Urine Occult Blood Negative (NEGATIVE) Urine Nitrite Negative (NEGATIVE) Urine Bilirubin Negative (NEGATIVE) Urine Urobilinogen Normalmg/dL (NORMAL) Urine Leukocyte Esterase Negative (NEGATIVE) Urine RBC 0-2/hpf (0-2) Urine WBC 0-5/hpf (0-5) Urine Epithelial Cells Few/hpf (NONE-MOD) Urine Crystals None seen (NONE SEEN) Urine Bacteria Few/hpf (NONE-FEW) Urine Hyaline Casts None/lpf (NONE) Urine Granular Casts None seen (NONE SEEN) Urine Waxy Casts None seen (NONE SEEN) Urine Red Blood Cell Casts None seen (NONE SEEN) Urine White Blood Cell Casts None seen (NONE SEEN) Urine Mucus None seen (None Seen) Urine Trichomonas None seen (NONE SEEN) Urine Yeast None (NONE SEEN) Urinalysis Comment None Urine Culture Reflexed Not indicated Lab Results Interpretation: CBC severely anemia CMP elevated LFTs Lactic acid severely elevated, repeat still elevated ECG Interpretation ECG Interpretation: Sinus tachycardia with rate of 115. Left axis deviation. Non-specific t abnormalities, anterior leads Time: 16:56 Interpreted by: ED physician X-Ray Chest Interpretation Chest Xray Interpretation: IMPRESSION: No acute cardiopulmonary abnormality. Source of fever not seen. Dictated by: Tonny Mcmillan M.D. on 03/20/2017 at 17:09 View: Portable, 1 view Interpretation / Wet Read by: Interpret - Radiologist Chest Xray Interpretation: FINDINGS: Surgical changes and devices: There is a right subclavian catheter with the tip in the superior vena cava in the region of the cavoatrial junction. Multiple surgical clips are redemonstrated at the level of the thoracic inlet. IMPRESSION:1. No evidence of pneumothorax. Dictated by: Anuj Linares M.D. on 03/20/2017 at 18:04 View: Portable, 1 view Interpretation / Wet Read by: Interpret - Radiologist CT Abd / Pelvis Interpretation IMPRESSION: 1. Multilobulated residual abscess collection demonstrated in the liver, decreased in size compared to the prior study but with a new small component in the left hepatic lobe. 2. Small bilateral pleural effusions with associated compressive atelectasis. 3. Increase in size of 2 small right lower lobe pulmonary nodules compared to the prior studies. Findings are suspicious for possible neoplasm. 4. Marked colonic stool distention compatible with constipation or obstipation. Dictated by: Anuj Linares M.D. on 03/20/2017 at 19:23 Study type: Abdominal CT IV contrast Interpretation / Wet Read by: Interpret - Radiologist Procedures Central Line Placement Time: 17:31 Procedure Performed by: ED physician Consent / Setup / Site Prep: Consent from patient, Time-out performed, Needle aspirate performed, Pulse oximeter applied, flash designer applied, Hand hygiene observed, Standard surgical scrub, Max barrier precaution, Sterile drapes applied, Position supine Skin Preparation Agent: Hibiclens - Chlorhexidine Local Anesthesia: Bupivacaine 0.25% Side / Location / Ultrasound: Subclavian right Catheter / Lumen / Technique: Triple lumen, Secured w catheter device, Secured with tape Central Line Tip Location: Cath tip positioned in, Cath tip good position in the SVC (16 cm in) Post-Procedure / Complications: Antibiotic oint applied, Dressing placed, Condition improved, Tolerated procedure well, Patient stable Re-Eval/Medical Decision Med Decision/Clinical Course I saw the patient intially but transferred care to DR. Dahl. This patient was initially seen by the midlevel provider and greeted, but I immediately took over the case, personally interviewed and evaluated and managed the case. Since very complicated patient, has a history of chronic GI bleeds requiring recurrent transfusions, has also had a hepatic abscess culture positive for VRE , with recent percutaneous drainage-and removal of the drain at [facility] 2 days ago. The patient's on linezolid and ertapenem. She saw her ID doctor, Dr. Webber yesterday. She was doing okay in the morning , developed some abdominal cramping, then developed abdominal pain, fever, chills overnight. His right upper quadrant discomfort. She arrives febrile, tachycardic. On arrival she has high fever, tachycardia but is not hypotensive. She is a frail cachectic 81-year-old, but she is not hypotensive. She does not hear quite as toxic as her vitals might suggest. Her abdomen is trace tenderness without santosh peritonitis. Unfortunately she had no IV access peripherally after multiple attempts, so given her clinically septic, located picture-I placed a right subclavian central line under sterile conditions with no complications and follow-up chest x-ray during the procedure. The patient was then started resuscitation with IV fluids, and once cultures are drawn and a boxing been given. Labs reveal leukocytosis, severely elevated lactic acid, and are notable for recurrent severe anemia-to the patient's also going to be transfused. The patient had a CT which still shows marked abnormalities in liver sizable fluid collection-although does not appear larger than before. However I reviewed her clinical presentation and CT imaging with the surgeon, who recommended transfer to [facility] for PTBD, apparently has not been here. I discussed the case is [facility], after a bed search-the patient has reportedly been accepted. An initial repeat lactic acid was still severely elevated, but this turned out to be after only 1 L NS. So additional IVF and blood were given and a repeat lactic has been ordered and returned elevated. Patient is still receiving blood. She has been accepted at [facility] is being transferred by ALS. She is clinically much improved at time of transfer. She actually appears fairly well, her tachycardia has resolved entirely, and she states she feels improved. Source of Hx: Old records Re-Evaluation/Progress #1: Time of Eval: 17:31 Re-Evaluation/Progress Note: Pt rechecked. Performed central line placement with pt's consent. All questions were addressed. Re-Evaluation/Progress #2: Time of Eval: 19:35 Re-Evaluation/Progress Note: Pt rechecked. Informed pt of results, plan for treatment and potential transfer to [facility] if a bed becomes available. All questions addressed. Re-Evaluation/Progress #3: Time of Eval: 22:12 Patient Status: Condition improved Re-Evaluation/Progress Note: Pt rechecked. She is feeling much better; her vitals are improved and her heart rate has decreased to 99. Informed pt of plan for transfer to [facility]. Pt understands and agrees with plan for transfer. All questions addressed. Consultation #1: Call Returned at: 18:48 Bindery Worker: Agrees with eval, Agrees with plan Note: Consult with [facility]. Discussed pt's case and need for transfer. They are short on beds and are going to try to find an freezer person. Consultation #2: Call Returned at: 20:05 Bindery Worker: Agrees with eval, Agrees with plan Note: Consult with pt's insurance, [employer]. Discussed pt's case. Consultation #3: Call Returned at: 22:13 Bindery Worker: Will see patient, Agrees with eval, Agrees with plan, Accepts admit Note: Consult with Dr. Sy at [facility]. Discussed pt's case and need for transfer. Accepts admit. Consultation #4: Call Returned at: 19:50 Bindery Worker: Agrees with eval, Agrees with plan Note: Consult with pt's insurance, [employer]. Discussed pt's case. Differential Diagnosis: Positive: Abscess (liver), Sepsis, Negative: Infected decubitus ulcer, MRSA skin infection, Meningitis, Meningococcemia, Necrotizing fasciitis, Perispinal abscess, Peritonsillar abscess, Pneumonia, Prostatitis, Strep throat Counseled Regarding: Diagnosis, Lab results, Need for transfer Discharge & Departure Impression: Primary Impression: Sepsis Sepsis type: sepsis due to unspecified organism Qualified Code: A41.9 - Sepsis, unspecified organism Additional Impressions: Hepatic abscess Anemia Anemia type: unspecified type Qualified Code: D64.9 - Anemia, unspecified Vancomycin resistant Enterococcus Disposition: Transfer, Acute Care Facility Discharge Condition All VS Reviewed: Yes Condition: Stable Referrals: Macy Baird MD (PCP) Crit Care Except Billable Proc Time Spent: 30-74 minutes Services Performed: Patient management by me, Time spent at bedside, Reviewing test results, Reviewing imaging, Discussing patient care, Documentation in record EDSupervising Provider for APC: Alvaro Dahl MD Attestation Portions of this note were transcribed by Delphine Rousseau. I, Dr. Dahl personally performed the history, physical exam and medical decision-making; I reviewed and confirmed the accuracy of the information in the transcribed note. Signed by: Kush Barajas, 03/20/17 and 19:00. copies to: Macy Baird MD, Sue ARNP Mar 20, 2017 16:16 Delphine Hdez Mar 20, 2017 16:57 Alvaro Dahl MD Mar 20, 2017 18:39
[2017-03-20] MEDS ORDERED: 0.9% Sodium Chloride 1,000 ML IV ONE (16:20)
[2017-03-20] MEDS ORDERED: Acetaminophen 32.5 mg/mL 20 mL Liquid PO ONE (16:20)
[2017-03-20] MEDS ORDERED: Piperacillin-Tazo 3.375 Gm Inj 3.375 GM in Dextrose 5% Minibag Plus 50 ML IV ONE (16:50)
[2017-03-20] MEDS ORDERED: Iohexol 300 mg/mL 30 mL Inj PO ONE (17:05)
--- NOTE | 2017-03-20 17:13 | DRSVH ---
PROCEDURE: X-RAY CHEST ONE VIEW, PORTABLE ([id number]) INDICATIONS: fever TECHNIQUE: One view of the chest was acquired. COMPARISON: 01/27/2017 FINDINGS: Surgical changes and devices: Surgical clips in the right paratracheal region as before.. Lungs and pleura: No pleural effusions or pneumothorax. Lungs are clear. Mediastinum: Mediastinal contours appear normal. Heart size is normal. Aortic calcification and tor tuosity. Bones and chest wall: No suspicious bony lesions. Overlying soft tissues appear unremarkable. IMPRESSION: No acute cardiopulmonary abnormality. Source of fever not seen. Dictated by: Tonny Mcmillan M.D. on 03/20/2017 at 17:09 Approved by: Tonny Mcmillan M.D. on 03/20/2017 at 17:11
[2017-03-20] MEDS ORDERED: Bupivacaine-MPF 0.5% 30 mL Inj ONE (17:25)
[2017-03-20] MEDS ORDERED: Ondansetron 2 mg/mL 2 mL Inj IVPUSH ONE (18:05)
[2017-03-20] MEDS ORDERED: HYDROmorphone 0.5 mg/0.5 mL iSecure Syringe IVPUSH PRN (18:05)
--- NOTE | 2017-03-20 18:07 | DRSVH ---
PROCEDURE: X-RAY CHEST ONE VIEW, PORTABLE ([id number]) INDICATIONS: central line placement TECHNIQUE: One view of the chest was acquired. COMPARISON: [facility], CR, XR CHEST 1VW (PORTABLE), 03/20/2017, 16:52. FINDINGS: Surgical changes and devices: There is a right subclavian catheter with the tip in the superior vena cava in the region of the cavoatrial junction. Multiple surgical clips are redemonstrated at the lev el of the thoracic inlet. Lungs and pleura: No pleural effusions or pneumothorax. Visualized lungs are clear. The right late ral costophrenic angle is incompletely included. Mediastinum: Mediastinal contours appear unchanged. Heart size is normal. Bones and chest wall: No suspicious bony lesions. Overlying soft tissues appear unremarkable. IMPRESSION: 1. No evidence of pneumothorax. Dictated by: Anuj Linares M.D. on 03/20/2017 at 18:04 Approved by: Anuj Linares M.D. on 03/20/2017 at 18:05
[2017-03-20 18:39] LABS: BASOPHILS % (AUTO) 0.2 % (0-3); EOSINOPHILS % (AUTO) 0 % (0-5); MONOCYTES % (AUTO) 10.3 % (4-12); Mean Corpuscular Hemoglobin 29.6 pg (27.0-35.0); NEUTROPHILS % (AUTO) 85.2 % (40-74); Platelet Count 257 bil/L (150-400)
[2017-03-20 18:39] LABS: TROPONIN T < 0.010 ug/L (0.0-0.011)
[2017-03-20] MEDS ORDERED: Ertapenem Inj 1,000 MG in 0.9% Sodium Chloride 50 ML IV ONE (18:40)
[2017-03-20] MEDS ORDERED: Linezolid Inj 600 MG in IV Premix 1 EACH IV ONE (18:40)
[2017-03-20] MEDS ORDERED: 0.9% Sodium Chloride 250 ML IV ONE (18:45)
[2017-03-20 18:57] VITALS: BP 117/48; PULSE 115; RESP 16; O2SAT 98
[2017-03-20 19:03] LABS: INR 1.18 ratio
--- NOTE | 2017-03-20 19:23 | DRSVH ---
PROCEDURE: US ABDOMEN ([id number]) INDICATIONS: History of liver abscess with drain status post removal one week prior at outside [place] [facility]. Possible bleeding. TECHNIQUE: Real-time scanning was performed of the abdominal and retroperitoneal organs, with image documentatio n. COMPARISON: [facility], CT, CT ABD PELVIS W CON, 02/19/2017, 15:37. [facility], CT, CT ABD PELVIS W CON, 03/20/2017, 19:02. FINDINGS: Liver: There is an ill-defined echogenic region within the right hepatic lobe corresponding to the ar ea of the prior abscess which may represent residual gas within the collection. Gallbladder: The gallbladder is contracted with biliary sludge noted. Biliary ducts: Intrahepatic bile ducts are non-dilated. Extrahepatic bile duct caliber measures 3-4 mm. Normal is 6-7 mm or less in diameter, or 10 mm or less post-cholecystectomy. Pancreas: Visualized portions of the pancreas are sonographically normal. Spleen: Spleen is normal in size and homogeneous in echotexture. Kidneys: Right kidney measures 9.7 cm long; left kidney measures 11.1 cm long. No hydronephrosis. Aorta: Visualized aorta is normal in caliber at less than 3 cm. Iliacs: Proximal common iliac arteries are normal in caliber at less than 2.5 cm. IVC: Intrahepatic inferior vena cava is patent. Miscellaneous: No definite free abdominal fluid. There is a right pleural effusion. IMPRESSION: 1. Ill-defined echogenic region in the right hepatic lobe in the area of the previously identified a bscess. Findings may reflect residual gas within the collection limiting evaluation. 2. No definite intra-abdominal free fluid. Dictated by: Anuj Linares M.D. on 03/20/2017 at 19:17 Approved by: Anuj Linares M.D. on 03/20/2017 at 19:22
--- NOTE | 2017-03-20 19:36 | DRSVH ---
PROCEDURE: CT ABDOMEN AND PELVIS WITH CONTRAST ([id number]) INDICATIONS: fever, sepsis, h/o liver abscess TECHNIQUE: After the administration of oral and intravenous contrast, 5 mm thick sections acquired from the diap hragms to the symphysis. 5 mm thick coronal and sagittal reformats were performed. For radiation do se reduction, the following was used: automated exposure control, adjustment of mA and/or kV accordi ng to patient size. COMPARISON: [facility], CT, CT CHEST ABDOMEN PELVIS W CONTRAST, 06/04/2016, 12:09 PM. , CT, CT ABD PELVIS W CON, 10/30/2016, 12:32. , CT, CT AB D PELVIS W CON, 11/27/2016, 23:56. , CT, CT ABD PELVIS W CON, 02/19/2017, 15:37. FINDINGS: Image quality: Excellent. ABDOMEN: Lung bases: There are small bilateral pleural effusions with associated compressive atelectasis. The re are small bilateral pulmonary nodules measuring up to 5 mm and 4 mm which is increased compared to prior study of 06/04/16 in which they measured up to 4 and 3 mm. There is a small 6 mm left lower lo be nodule which appears similar to the prior studies. Heart size is normal. Solid organs: There is a multilobulated collection redemonstrated in the right hepatic lobe, decreas ed in size compared to the prior study, measuring up to approximately 6.8 x 2.9 cm in transverse dime nsion by approximately 11 cm in craniocaudal dimension. There is also a component within the left he patic lobe within segment 4A which is new compared to the prior CT study. There are small foci of ga s within the collection. There is increased biliary ductal dilatation with a biliary drain demonstra luis alberto. There is pneumobilia. Pancreas enhances normally. No adrenal nodules. Kidneys demonstrate no hydronephrosis. Peritoneum and bowel: Stomach and small bowel loops are normal in caliber and wall thickness. There is marked colonic stool distention throughout the colon suggesting constipation or obstipation. No free fluid or air. Nodes and vessels: No retroperitoneal or mesenteric adenopathy. Aorta and inferior vena cava are no rmal in caliber. Miscellaneous: No ventral hernias. PELVIS: Genitourinary: Bladder wall thickness is normal. There is a large partially calcified fibroid redem onstrated within the left hemipelvis. Miscellaneous: No inguinal hernias or adenopathy. Bones: No suspicious bony lesions. No vertebral body compression fractures. IMPRESSION: 1. Multilobulated residual abscess collection demonstrated in the liver, decreased in size compared to the prior study but with a new small component in the left hepatic lobe. 2. Small bilateral pleural effusions with associated compressive atelectasis. 3. Increase in size of 2 small right lower lobe pulmonary nodules compared to the prior studies. Fi ndings are suspicious for possible neoplasm. 4. Marked colonic stool distention compatible with constipation or obstipation. Dictated by: Anuj Linares M.D. on 03/20/2017 at 19:23 Approved by: Anuj Linares M.D. on 03/20/2017 at 19:34
[2017-03-20 22:47] LABS: Mean Corpuscular Hemoglobin 29.5 pg (27.0-35.0); Mean Corpuscular Volume 91.3 fL (81-100)
[2017-03-20 23:23] LABS: APPEARANCE,URINE CLEAR (CLEAR,HAZY); COLOR,URINE YELLOW (YELLOW)
[2017-03-20 23:24] LABS: OCCULT BLOOD,URINE NEGATIVE (NEGATIVE); PH,URINE 5.5 (5.0-8.0); UROBILINOGEN,URINE NORMAL (NORMAL)
[2017-03-20 23:42] VITALS: BP 97/43; PULSE 92; RESP 16; O2SAT 99
== END 2017-03-20 23:44 | disposition short-term general hospital (02) ==
LOC: SED 15:54 → EDBD 15:54 → SED 23:44
DX: A41.9 Sepsis, unspecified organism (principal); B95.2 Enterococcus as the cause of diseases classified elsewhere; K75.0 Abscess of liver; D64.9 Anemia, unspecified; R11.0 Nausea; E03.9 Hypothyroidism, unspecified
CPT/HCPCS: 36415; 36556; 71010; 74177; 76700; 80053; 81000; 83605; 84484; 85025; 85027; 85610; 85730; 86922; 87040; 87077; 87186; 93005; 96365; 96366; 96367; 96368; 96375; 99291; J1170; J1335; J2020; J2405; J2543; J7030; J7050; P9021; Q9967

== ENCOUNTER 2017-04-05 11:26 | Inpatient (IN) | payer MEDICARE ==
[~2017-04-05] VITALS: Ht 157.5 cm; Wt 42.1 kg
[2017-04-05] VITALS (10 sets, daily range): BP systolic 101–129; BP diastolic 39–65; PULSE 14–91; RESP 12–18; O2SAT 92–100
--- NOTE | 2017-04-05 11:54 | ED.REPORT ---
HPI-General Illness Date of Service Apr 05, 2017 ED Provider: Alvaro Dahl MD Pt is an 81 y/o female w/ a complicated medical hx including VRE+ hepatic abscess s/p shunts placed at [facility] on Linezolid and Ertapenem daily, HHT with gastric and duodenal telangiectasias, multiple GI bleeds requiring weekly transfusions, presenting to the ED via EMS from [facility] due to hypoxia of 70-80 % and hypotension <100 systolic onset this morning. The patient states she feels generally unwell but otherwise has no complaints. She denies any shortness of breath or respiratory symptoms. The patient was recently released from [facility] 4-5 days ago after having 2 more abdominal shunts placed to further drain her chronic liver abscess after presenting to [facility] ED with sepsis. She states after being discharged she has been feeling worse than her prior baseline in terms of generalized weakness and feeling unwell. She c/o intermittent epigastric abdominal pain which is typical for her chronic pain. Pt denies fever, CP, SOB, nausea, vomiting, dysuria, cough. The patient was transfused 2 days ago. CODE STATUS: DNR, DNI, no major surgeries Nursing Notes Stated Complaint: LOW O2 Chief Complaint: General Complaint Nursing Notes Reviewed: Yes ([employer], [employer] not reconciled) Allergies: Uncoded Allergies: NSAIDS (Allergy, Intermediate, 04/05/17) Scheduled Linezolid (Linezolid) 600 Mg Tablet 600 MG PO BID Pantoprazole DR (Pantoprazole DR) 20 Mg Tablet.dr 20 MG PO BID Polyethylene Glycol 3350 (Miralax) 17 Gm Powd.pack 17 GM PO DAILY Thyroid,Pork (Sonoita Thyroid) 60 Mg Tablet 60 MG PO DAILY Scheduled PRN Bisacodyl (Dulcolax Rectal) 10 Mg Supp.rect 10 MG RC DAILY PRN PRN For Constipation For no BM after MOM Ondansetron ODT (Ondansetron ODT) 4 Mg Tab.rapdis 4 MG PO Q4H PRN PRN For Nausea General Time Seen by MD: 11:43 Chief Complaint Not feeling well Hx Obtained From: Patient, EMS Arrived By: Ambulance Sudden in Onset?: No Onset Occurred: Onset unknown Symptom Duration: Since onset Location: : Abdomen Quality: Same as prior Severity: Current: Mild Severity: Maximum: No pain Recent Healthcare: Recent doctor visit, Recent hospitalization, Recent testing , Previous diagnosis, Previous surgery, Prior workup Similar Sx Previous: Yes Past Medical History Past Medical History Notes: GI: Dr. Sam Oncologist: Dr. Bynum Infectious disease: Dr. 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 Status post gastric perforation 10/25, requiring closure of the perforation. Hepatic abscess (+VRE, drained removed at [facility] 03/18/17) on Linezolid and Ertapenem daily Acquired Hypothyroidism. 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 at [facility] in September 2016 Laparoscopic closure of anterior gastric perforation with omental patch and washout (10/31/16) Bilateral cataract removal GI stent placement s/p percutaneous drainage of hepatic abscess Reports: Tonsillectomy Family History Patient is adopted and does not know her family history The patient's son also has hereditary hemorrhagic telangiectasia and suffered from a brain abscess last year requiring hospitalization Granddaughter likely also has HHT due to recurrent nosebleeds however this is undiagnosed at this time Smoking History Never Smoker Social History Alcohol Use: Denies alcohol use Drug Use: Denies drug use Other Social History: Good social support, From out of town Occupation , lives at [facility] also Ambulatory Status Independent Review of Systems Full Review of Systems Constitutional: Reports: Malaise, Weakness - generalized, Denies: Chills, Fever Respiratory: Denies: Non-productive cough, Shortness of breath Cardiovascular: Denies: Chest pain GI: Reports: Abdominal pain, Denies: Nausea, Vomiting Female: Denies: Dysuria Complete sys rev & neg: except as marked. Physical Exam Vital Signs Vital Signs Date Time Temp Pulse Resp B/P Pulse Ox O2 Delivery O2 Flow Rate FiO2 04/05/17 14:44 37.5 85 12 116/39 98 Room Air 04/05/17 14:14 36 14 12 120/48 97 Room Air 04/05/17 13:01 88 12 107/41 97 Room Air 04/05/17 11:37 36.2 89 14 101/41 100 Nasal Cannula 2 Initial VS: Reviewed, Unavailable (incomplete, temp ordere) Head / Eyes: Atraumatic, Normocephalic ENT: Mucous membranes moist, Conjunctiva normal, No scleral icterus Neck: Supple, Full range of motion Cardiovascular: Regular rate & rhythm, Heart sounds normal, Intact distal pulses Neurologic: Alert, Oriented, Nonfocal Psychiatric: Mood/affect normal, Behavior normal, Normal thought content General/Constitutional: Awake, Alert, No acute distress, Cooperative, Not toxic appearing Pale Frail Cachectic Chronically ill-appearing Globally weak Respiratory / Chest: No respiratory distress, No rhonchi, No wheezing, No retractions, No stridor Decreased breath sounds of the left base 99% oxygen saturation on RA She is NOT tachypneic or dyspneic Abdomen: Atraumatic, Soft, Non-tender, No guarding, No rebound, No distention, No palpable mass Abdomen is cachectic 2 drains in the right abdomen Lower Extremity / Pelvis / MS: Atraumatic, Full range of motion, No swelling, No erythema, No deformity, Neurologic intact, Vascular intact, No edema No clinical signs of DVT bilaterally Skin: Atraumatic, Warm, Dry Skin is pale Interpretation & Diagnostics Lab Results Interpretation Result Diagram: 04/05/17 1155 04/05/17 1155 Test 04/05/17 11:55 04/05/17 14:43 White Blood Count 11.4th/mm3 (3.8-10.1) Red Blood Count 1.88mil/mm3 (3.90-5.20) Hemoglobin 5.5g/dL (12.0-15.6) Hematocrit 17.7% (35.0-46.0) Mean Corpuscular Volume 94.1fL (81-100) Mean Corpuscular Hemoglobin 29.3pg (27.0-35.0) Mean Corpuscular Hemoglobin Concent 31.1% (32.0-37.0) Red Cell Distribution Width 18.3% (12.3-15.4) Platelet Count 431bil/L (150-400) Neutrophils (%) (Auto) 83.1% (40-74) Lymphocytes (%) (Auto) 6.2% (14-46) Monocytes (%) (Auto) 10.1% (4-12) Eosinophils (%) (Auto) 0.1% (0-5) Basophils (%) (Auto) 0.3% (0-3) Sodium Level 134mEq/L (134-144) Potassium Level 4.7mEq/L (3.5-5.2) Chloride Level 100mEq/L (97-108) Carbon Dioxide Level 22mmol/L (18-29) Blood Urea Nitrogen 17mg/dL (8-27) Creatinine 0.34mg/dL (0.57-1.00) Estimat Glomerular Filtration Rate 263mL/min (>59) Glucose Level 101mg/dL (60-99) Lactic Acid Level 2.2mmol/L (0.4-2.0) Calcium Level 8.1mg/dL (8.5-10.1) Total Bilirubin 0.6mg/dL (0.0-1.2) Aspartate Amino Transf (AST/SGOT) 47U/L (0-50) Alanine Aminotransferase (ALT/SGPT) 24U/L (0-32) Alkaline Phosphatase 379U/L (25-165) Total Protein 4.5g/dL (6.4-8.4) Albumin 2.4g/dL (3.4-5.0) Urine Color Dark yellow (YELLOW) Urine Appearance Clear (CLEAR,HAZY) Urine pH 5.5 (5.0-8.0) Urine Specific P[place]roy 1.020 (1.003-1.035) Urine Protein Negativemg/dL (NEG,TRACE) Urine Glucose (UA) 100mg/dL (NEGATIVE) Urine Ketones Negativemg/dL (NEGATIVE) Urine Occult Blood Negative (NEGATIVE) Urine Nitrite Negative (NEGATIVE) Urine Bilirubin Negative (NEGATIVE) Urine Urobilinogen 1.0mg/dL (NORMAL) Urine Leukocyte Esterase Negative (NEGATIVE) Urine RBC 0-2/hpf (0-2) Urine WBC 0-5/hpf (0-5) Urine Epithelial Cells Moderate/hpf (NONE-MOD) Urine Crystals None seen (NONE SEEN) Urine Bacteria None/hpf (NONE-FEW) Urine Hyaline Casts None/lpf (NONE) Urine Granular Casts None seen (NONE SEEN) Urine Waxy Casts None seen (NONE SEEN) Urine Red Blood Cell Casts None seen (NONE SEEN) Urine White Blood Cell Casts None seen (NONE SEEN) Urine Mucus None seen (None Seen) Urine Trichomonas None seen (NONE SEEN) Urine Yeast None (NONE SEEN) Urinalysis Comment None Urine Culture Reflexed Not indicated Lab Results Interpretation: CBC mildly gross cytosis, improved, hemoglobin and hematocrit severely anemic, platelet count normal CMP mild T abnormalities, stable ECG Interpretation ECG Interpretation: Sinus rhythm rate 86 LAD Nonspecific T abnormalities anteriorly Time: 13:10 Interpreted by: ED physician Normal ECG Interpretation: No acute ischemic changes, No change from prior ECGs X-Ray Chest Interpretation Chest Xray Interpretation: IMPRESSION: Dense retrocardiac consolidation in keeping with pneumonia or aspiration. Please correlate clinically. Trace left pleural effusion Dictated by: Andre Herring M.D. on 04/05/2017 at 12:33 Approved by: Andre Herring M.D. on 04/05/2017 at 12:34 View: Portable, 1 view Interpretation / Wet Read by: Interpret - Radiologist Re-Eval/Medical Decision Med Decision/Clinical Course This is an 81-year-old female with a very complex history as sent from a skilled necessarily do to a reported low oxygen level in the 80s, and a blood pressure below 100. She is a complex, chronic liver abscess and history of positive VRE-and recently had her liver abscess drainage tube removed, but developed recurrent sepsis and was admitted at [facility] over week ago, and the drains were replaced. She reports since discharge on Friday, she has felt increasingly fatigued-but she denies fever, shortness of breath, or other symptoms. She is indicated had the nursing staff not told her her sats are low , she was not aware that she was having any respiratory issues. She reports some chronic, mild low level abdominal discomfort but reports is pretty good. She has a history of chronic GI bleed-she notes for details-and gets weekly transfusions. She is limited interventions only, no CPR, no intubation. On exam she appears weak, but nontoxic-in fact she appears much improved compared to when I saw her when she was floridly septic in recent weeks. Some slightly diminished breath sounds in the left base, but demonstrate no respiratory distress, and is satting well on the Department in the high 90s on room air with no hypoxia. She has drains presently abdomen, no tenderness, no signs of guarding or rebound. She has no findings of significant edema in the lower extremities or overt findings of DVT. Lab work demonstrates severe anemia and need for recurrent transfusion, likely multiple units. Interestingly the patient reports that she recommends only getting 2 units at a time-and at other times she is gotten more than 2 units, she feels that her bleeding has gotten worse. Since she is hemodynamically normal here, she is not hypotensive or tachycardic I think it is reasonable start with 2 units. Because of the multiple units however she will require admission. A chest x-ray suggests a questionable pneumonia, more suspicious about an effusion and santosh pneumonia-the patient is no fever cough or other overt signs of sepsis. She is currently already on both Linezolid and ertapenem which should be reasonable coverage. Given hercomplex history CT imaging is being pursued for further clarification- powered the patient agrees with the major issues the anemia which are explained her symptoms. Again this is a chronic, recurrent thing for GC symptomatic transfusions only. The plan is admission for transfusion and continued supportive care. Source of Hx: Old records Time of Eval: 13:36 Re-Evaluation/Progress Note: Pt rechecked. Informed pt of need for CT. She agrees with plan. Time of Eval: 15:15 Re-Evaluation/Progress Note: Pt rechecked. Informed pt of need for admission for transfusion. Pt understands and agrees with plan for admission. All questions addressed. Consultation : Referral / Consult Name: Nelson Centeno MD Consulted With: Hospitalist Call Returned at: 15:39 Systems Analyst: Will see patient, Agrees with eval, Agrees with plan, Accepts admit Counseled Regarding: Diagnosis, Lab results, Need for admission Discharge & Departure Primary Impression: Symptomatic anemia Additional Impressions: HHT (hereditary hemorrhagic telangiectasia) Elevated lactic acid level Hepatic abscess GI bleed Pleural effusion VRE (vancomycin resistant enterococcus) culture positive Disposition: ADMITTED TO HOSPITAL Discharge Condition All VS Reviewed: Yes Condition: Stable Referrals: Macy Baird MD (PCP) Crit Care Except Billable Proc Time Spent: 30-74 minutes Services Performed: Patient management by me, Time spent at bedside, Reviewing test results, Reviewing imaging Scribe Attestation Portions of this note were transcribed by Terrance Mcdonald. I, Dr. Dahl personally performed the history, physical exam and medical decision-making; I reviewed and confirmed the accuracy of the information in the transcribed note. copies to: Macy Baird MD, Matthew F MD Apr 05, 2017 11:54 TERRANCE MCDONALD Apr 05, 2017 12:01
[2017-04-05 12:23] LABS: BASOPHILS % (AUTO) 0.3 % (0-3); EOSINOPHILS % (AUTO) 0.1 % (0-5); MONOCYTES % (AUTO) 10.1 % (4-12); Mean Corpuscular Hemoglobin 29.3 pg (27.0-35.0); Mean Corpuscular Volume 94.1 fL (81-100); NEUTROPHILS % (AUTO) 83.1 % (40-74); Platelet Count 431 bil/L (150-400)
[2017-04-05] MEDS ORDERED: 0.9% Sodium Chloride 250 ML IV ONE (12:25)
--- NOTE | 2017-04-05 12:35 | DRSVH ---
PROCEDURE: X-RAY CHEST ONE VIEW, PORTABLE ([id number]) INDICATIONS: hypoxia TECHNIQUE: One view of the chest was acquired. COMPARISON: [facility], CR, XR CHEST 1VW (PORTABLE), 03/20/2017, 17:34. FINDINGS: Surgical changes and devices: Surgical clips project in the right base of neck. There is a pigtail ca theter projecting in the right upper quadrant. Lungs and pleura: Trace left pleural effusion. No right pleural effusion or pneumothorax. There is de nse retrocardiac consolidation. Mediastinum: Mediastinal contours appear normal. Heart size is normal. Bones and chest wall: No suspicious bony lesions. Overlying soft tissues appear unremarkable. IMPRESSION: Dense retrocardiac consolidation in keeping with pneumonia or aspiration. Please correlat e clinically. Trace left pleural effusion Dictated by: Andre Herring M.D. on 04/05/2017 at 12:33 Approved by: Andre Herring M.D. on 04/05/2017 at 12:34
[2017-04-05] MEDS ORDERED: HYDROmorphone 0.5 mg/0.5 mL iSecure Syringe ONE (12:49)
[2017-04-05] MEDS ORDERED: Iohexol 300 mg/mL 30 mL Inj PO ONE (15:00)
[2017-04-05 15:18] LABS: APPEARANCE,URINE CLEAR (CLEAR,HAZY); COLOR,URINE DARK YELLOW (YELLOW); OCCULT BLOOD,URINE NEGATIVE (NEGATIVE); PH,URINE 5.5 (5.0-8.0)
[2017-04-05] MEDS ORDERED: Polyethylene Glycol (PEG) 17 Gm Powder PO PRN (15:40)
[2017-04-05] MEDS ORDERED: Alum-Mag Hydrox-Simeth 30 mL Suspension PO PRN (15:40)
[2017-04-05] MEDS ORDERED: Furosemide 10 mg/mL 2 mL Inj IVPUSH ONE ×2 (15:40)
[2017-04-05] MEDS ORDERED: Ondansetron 2 mg/mL 2 mL Inj IVPUSH PRN (15:40)
--- NOTE | 2017-04-05 16:30 | NUR ---
Admission Pt admitted to [facility] from ED. A/Ox3, denies pain, SOB or abd discomfort at this time. Cachectic in appearance. Unit 2 of PRBCs is infusing at this time. Pt unable to transfer self from gurney to bed due to generalized weakness, transfer completed by staff. Pt has abd drain in lower R abd, placed at [facility] ([place], [place]) recently. Granddaughter is at bedside. Oriented to , and call light, will continue to monitor.
--- NOTE | 2017-04-05 17:15 | NUR ---
Transfusion 2nd unit of PRBCs complete. VSS. IV Lasix given as ordered. Pt consumed PO contrast for completion of abd CT. Call light in reach, will continue to monitor.
--- NOTE | 2017-04-05 17:52 | NUR ---
Imaging Pt taken off unit for completion of abd CT, no complains of increased pain, SOB, or weakness. Will continue to monitor.
--- NOTE | 2017-04-05 18:57 | DRSVH ---
PROCEDURE: CT CHEST, ABDOMEN AND PELVIS WITH CONTRAST ([id number]) INDICATIONS: SOB, ?pneumonia/effusion, f/u hepatic abscess TECHNIQUE: After the administration of intravenous contrast, 5 mm thick sections acquired from the lung apices t o the symphysis. 5 mm coronal and sagittal reformats were performed, with additional 7 mm MIP reform ats through the lungs. For radiation dose reduction, the following was used: automated exposure con trol, adjustment of mA and/or kV according to patient size. COMPARISON: [facility], CT, CT ABD PELVIS W CON, 03/20/2017, 19:02. FINDINGS: Image quality: Excellent. CHEST: Lungs and pleura: Small-moderate bilateral pleural effusions with adjacent atelectasis. Mediastinum: Heart size is enlarged. No pericardial effusion. No mediastinal or hilar adenopathy b y size criteria. Thoracic aorta and central pulmonary arteries are normal in size. Esophagus is nor mal in caliber. No hiatal hernia. Chest wall: No axillary or supraclavicular adenopathy by size criteria. The right lobe of the thyroi d is not well-seen. Left lobe unremarkable.. ABDOMEN: Solid organs: There is placement of pigtail catheter drain within the liver. As the prior study there is enlargement of a low collection adjacent to the drain which now measures 5.6 x 5.0 cm, previously 2.2 x 2.3 cm. There is adjacent ill-defined infiltrative edema. Main portal vein appears patent. The re is an internal biliary stent as before. Pancreas and spleen grossly unremarkable. No definite adre nal nodule. Bilateral renal cortical thinning. No hydronephrosis. and spleen are normal in size and e nhancement. Gallbladder not seen. Biliary system is non dilated. Pancreas enhances normally. No a drenal nodules. Kidneys demonstrate normal size and enhancement, without hydronephrosis. Peritoneum and bowel: Large amount of stool seen throughout the colon. No evidence of bowel obstructi on. No free air. No free fluid. Nodes and vessels: No retroperitoneal or mesenteric adenopathy by size criteria. Aorta and inferior vena cava are normal in size. Miscellaneous: No ventral hernias. PELVIS: Genitourinary: Bladder wall thickness is normal. Redemonstration of large left-sided uterine fibroi d with central calcification. Miscellaneous: No inguinal hernias or adenopathy. Bones: No suspicious bony lesions. No vertebral body compression fractures. IMPRESSION: Status post placement of hepatic drain, however since the prior study dated 03/20/17 there is an enlar ging intrahepatic fluid collection, suspicious for persistent abscess, just medial to the pigtail tip as measured above. There is persistence adjacent intrahepatic infiltrative edema and fluid. Please c orrelate clinically. Small to moderate bilateral pleural effusions with adjacent atelectasis. Cardiomegaly. Large uterine fibroid as before. Dictated by: Andre Herring M.D. on 04/05/2017 at 18:39 Approved by: Andre Herring M.D. on 04/05/2017 at 18:55
--- NOTE | 2017-04-05 18:59 | NUR ---
Medication Reconciliation Unable to complete Med Rec. Pt does not recall all medications that she is taking at this time. Request to verified pharmacy sent. for med list.
--- NOTE | 2017-04-05 20:53 | PCM.HPMED ---
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 Patient has had multiple gastrointestinal bleeds requiring weekly transfusions. Just 4-5 days ago patient was at [facility] having to or more abdominal shunts placed to further drain her chronic liver abscesses after presenting to [facility] emergency department with sepsis. She states after being discharged she had been feeling worse than her prior baseline in terms of generalized weakness and feeling unwell. She has been having intermittent epigastric abdominal pain which is typical for her chronic pain. She was transfused with 2 units of blood while at [facility] and transfused 2 units of blood 2 days ago. Patient denies any fever, chest pain, shortness of breath, nausea, vomiting, dysuria or cough. The patient continued to feel poorly and at [facility] she had her O2 sat checked and was found to be 70-80% and her blood pressure was low at less than 100 systolic this morning. Therefore the [facility] called 911 patient was brought to [facility] emergency room. The emergency room she was evaluated by Dr. Alvaro Dahl who found her hemoglobin to be 5.5 and her hematocrit to be only 17.7. A chest x-ray showed dense retrocardiac consolidation in keeping with pneumonia or aspiration. Therefore, a CT scan was ordered and showed "Status post placement of hepatic drain, however since the prior study dated 03/20/17 there is an enlarging intrahepatic fluid collection, suspicious for persistent abscess, just medial to the pigtail tip as measured above. There is persistence adjacent intrahepatic infiltrative edema and fluid. Please correlate clinically. Small to moderate bilateral pleural effusions with adjacent atelectasis. Cardiomegaly. Large uterine fibroid as before." Due to her complicated history and active GI bleeding the patient was admitted to the hospitalist service for further evaluation and treatment. Review of Systems: General: The patient is extremely fatigued. HEENT: Patient has no headache, patient has no diplopia, patient has no changes in vision. Patient has no problems with their ears, nose or throat. Patient has no known dental problems. Patient has no pharyngitis or history of thrush. Neck: Patient has no stiffness in the neck. Patient has no lymphadenopathy. Patient has no other problems with her neck. Pulmonary: Patient has no shortness of breath, no cough, no expectoration of sputum. Patient has no pleurisy. Patient has no chest pain. Patient has no history of asthma or COPD. Cardiovascular: Patient has no chest pain. Patient has no history of heart murmur. Patient has no palpitations. Patient has no history of myocardial infarction. Patient has no history of coronary artery disease. Gastrointestinal: Patient has no history of hepatitis A, B or C. Patient has no history of peptic ulcer disease. Patient has no history of gastroesophageal reflux disease. Patient has no history of nausea, vomiting, or diarrhea. Patient has no history of hematemesis or hematochezia. However, the patient states that she always has black stools or melena. Patient has no history of colitis. Patient has liver abscesses and has 2 internal biliary drains as well as one external drain. Renal: Patient has no history of kidney disease. No history of kidney stones. Genitourinary: Patient has no history of dysuria, frequency, or incontinence. Patient has no previous history of genitourinary problems. Musculoskeletal: Patient has no history of muscular skeletal problems. Neurologic: Patient has no history of stroke, no history of seizure, no history of TIA. Psychiatric: Patient has no history of psychiatric problems. The remainder of the entire review of systems was reviewed with patient and is as mentioned above otherwise negative. 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 Status post gastric perforation 10/25, requiring closure of the perforation. Hepatic abscess (+VRE, drained removed at [facility] 03/18/17) on Linezolid and Ertapenem daily Acquired Hypothyroidism. 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 at [facility] in September 2016 Laparoscopic closure of anterior gastric perforation with omental patch and washout (10/31/16) Bilateral cataract removal GI stent placement Status post percutaneous drainage of hepatic abscess Tonsillectomy Family History Patient is adopted and does not know her family history The patient's son also has hereditary hemorrhagic telangiectasia and suffered from a brain abscess last year requiring hospitalization. Granddaughter likely also has HHT due to recurrent nosebleeds however this is undiagnosed at this time. Social History Hx Alcohol Use: Yes Alcoholic Drinks Per Day: 2 daily Hx Substance Use: No Hx Tobacco Use: No Smoking Status: Never Smoker Living Arrangement: Independent Long-Term (The patient lives with her at [facility] Exam Vital Signs Vital Sign - Last Date Time Temp Pulse Resp B/P Pulse Ox O2 Delivery O2 Flow Rate FiO2 04/05/17 17:17 63 112/54 04/05/17 16:32 36.8 17 92 Room Air 04/05/17 11:37 2 Exam General: Patient is cachectic. She is awake and alert and articulate. She appears very pale. Her temperature delia to 101.7F after my visit. HEENT: Head is atraumatic and normocephalic. Eyes: Pupils are equally round and reactive to light and accommodation. Extraocular muscles are intact. Sclera are white, anicteric. Subconjunctival mucosa is pink. Ears and nose are unremarkable. Oropharynx: There is no mucosal lesions, there is no thrush, there is no pharyngitis. Neck: Is supple, there are no nodes, or masses or tenderness. Chest: Is clear to auscultation and percussion. There are no rales, rhonchi, wheezes or rubs. Heart: Rate, rhythm is regular. There is no murmur, rub or gallop. Abdomen: Good bowel sounds are present. Abdomen is soft, nontender, no organomegaly or masses were appreciated. There is an externalized hepatic drain present with minimal bile green drainage in the drain bag. Extremities: Are symmetrical and well perfused. There is no edema, there is no cellulitis, no rash. Neurologic: There are no focal neurological deficits. Cranial nerves II through XII are intact. There are no sensory or motor deficits. Patient is very alert and oriented. Psychiatric: Patients mood is calm and shows no sign of agitation. Genital: Deferred Rectal: Deferred Lab and Diagnostics Result Diagram: 04/05/17 1155 04/05/17 1155 Microbiology Urinalysis is unremarkable and culture is not indicated Blood cultures are pending X-Rays, CTs and MRIs PROCEDURE: X-RAY CHEST ONE VIEW, PORTABLE ([id number]) INDICATIONS: hypoxia TECHNIQUE: One view of the chest was acquired. COMPARISON: [facility], CR, XR CHEST 1VW (PORTABLE), 03/20/2017, 17: 34. FINDINGS: Surgical changes and devices: Surgical clips project in the right base of neck. There is a pigtail catheter projecting in the right upper quadrant. Lungs and pleura: Trace left pleural effusion. No right pleural effusion or pneumothorax. There is dense retrocardiac consolidation. Mediastinum: Mediastinal contours appear normal. Heart size is normal. Bones and chest wall: No suspicious bony lesions. Overlying soft tissues appear unremarkable. IMPRESSION: Dense retrocardiac consolidation in keeping with pneumonia or aspiration. Please correlate clinically. Trace left pleural effusion Dictated by: Andre Herring M.D. on 04/05/2017 at 12:33 Approved by: Andre Herring M.D. on 04/05/2017 at 12:34 PROCEDURE: CT CHEST, ABDOMEN AND PELVIS WITH CONTRAST ([id number]) INDICATIONS: SOB, ?pneumonia/effusion, f/u hepatic abscess TECHNIQUE: After the administration of intravenous contrast, 5 mm thick sections acquired from the lung apices to the symphysis. 5 mm coronal and sagittal reformats were performed, with additional 7 mm MIP reformats through the lungs. For radiation dose reduction, the following was used: automated exposure control, adjustment of mA and/or kV according to patient size. COMPARISON: [facility], CT, CT ABD PELVIS W CON, 03/20/2017, 19:02. FINDINGS: Image quality: Excellent. CHEST: Lungs and pleura: Small-moderate bilateral pleural effusions with adjacent atelectasis. Mediastinum: Heart size is enlarged. No pericardial effusion. No mediastinal or hilar adenopathy by size criteria. Thoracic aorta and central pulmonary arteries are normal in size. Esophagus is normal in caliber. No hiatal hernia. Chest wall: No axillary or supraclavicular adenopathy by size criteria. The right lobe of the thyroid is not well-seen. Left lobe unremarkable.. ABDOMEN: Solid organs: There is placement of pigtail catheter drain within the liver. As the prior study there is enlargement of a low collection adjacent to the drain which now measures 5.6 x 5.0 cm, previously 2.2 x 2.3 cm. There is adjacent ill- defined infiltrative edema. Main portal vein appears patent. There is an internal biliary stent as before. Pancreas and spleen grossly unremarkable. No definite adrenal nodule. Bilateral renal cortical thinning. No hydronephrosis. and spleen are normal in size and enhancement. Gallbladder not seen. Biliary system is non dilated. Pancreas enhances normally. No adrenal nodules. Kidneys demonstrate normal size and enhancement, without hydronephrosis. Peritoneum and bowel: Large amount of stool seen throughout the colon. No evidence of bowel obstruction. No free air. No free fluid. Nodes and vessels: No retroperitoneal or mesenteric adenopathy by size criteria. Aorta and inferior vena cava are normal in size. Miscellaneous: No ventral hernias. PELVIS: Genitourinary: Bladder wall thickness is normal. Redemonstration of large left -sided uterine fibroid with central calcification. Miscellaneous: No inguinal hernias or adenopathy. Bones: No suspicious bony lesions. No vertebral body compression fractures. IMPRESSION: Status post placement of hepatic drain, however since the prior study dated 03/20 there is an enlarging intrahepatic fluid collection, suspicious for persistent abscess, just medial to the pigtail tip as measured above. There is persistence adjacent intrahepatic infiltrative edema and fluid. Please correlate clinically. Small to moderate bilateral pleural effusions with adjacent atelectasis. Cardiomegaly. Large uterine fibroid as before. Dictated by: Andre Herring M.D. on 04/05/2017 at 18:39 Approved by: Andre Herring M.D. on 04/05/2017 at 18:55 Cardiac Echo Impressions Echocardiogram Report Name: STEWART UREÑA Graeme e: 02/05/2017 Height: 63 in Hospital Exam Location: [facility] Weight: 90 lb Gender: Female BSA: 1.4 m2 : 1935 Age: 81 yrs BP: 110/54 mmHg Reason For Study: Bacteremia Performed By: Corrie Jeffrey Referring Physician: ADALBERTO KELLEY Interpretation Summary The left ventricle is normal in size. Left ventricular systolic function is normal without focal wall motion abnormalities. The ejection fraction is estimated to be 60-65%. Assessment of diastolic parameters indicates normal left ventricular diastolic function and normal filling pressures. The right ventricle is normal in size and function. The right ventricular systolic pressure is estimated at 34 mmHg assuming a right atrial pressure of 3 mm Hg. The left atrium is mildly dilated. Right atrial size is normal. The aortic valve is trileaflet. The aortic valve opens well. There is no aortic regurgitation. There is very small filamentous strand at the tips of aortic leaflets. This is best seen on parasternal long axis views with inncreased magnification. Differential should include endocarditis or Lambl's excrescence. Given positive blood cultures, OLU is recommended. Other valves do not have any obvious evidence for endocarditis. The aortic root is mildly dilated. The ascending aorta is mildly enlarged. Moderate atherosclerotic plaque(s) in the aortic arch. 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 Patient has had multiple gastrointestinal bleeds requiring weekly transfusions. Just 4-5 days ago patient was at [facility] having to or more abdominal shunts placed to further drain her chronic liver abscesses after presenting to [facility] emergency department with sepsis. She states after being discharged she had been feeling worse than her prior baseline in terms of generalized weakness and feeling unwell. She has been having intermittent epigastric abdominal pain which is typical for her chronic pain. She was transfused with 2 units of blood while at [facility] and transfused 2 units of blood 2 days ago. Patient denies any fever, chest pain, shortness of breath, nausea, vomiting, dysuria or cough. The patient continued to feel poorly and at [facility] she had her O2 sat checked and was found to be 70-80% and her blood pressure was low at less than 100 systolic this morning. Therefore the [facility] called 911 patient was brought to [facility] emergency room. The emergency room she was evaluated by Dr. Alvaro Dahl who found her hemoglobin to be 5.5 and her hematocrit to be only 17.7. A chest x-ray showed dense retrocardiac consolidation in keeping with pneumonia or aspiration. Therefore, a CT scan was ordered and showed "Status post placement of hepatic drain, however since the prior study dated 03/20/17 there is an enlarging intrahepatic fluid collection, suspicious for persistent abscess, just medial to the pigtail tip as measured above. There is persistence adjacent intrahepatic infiltrative edema and fluid. Please correlate clinically. Small to moderate bilateral pleural effusions with adjacent atelectasis. Cardiomegaly. Large uterine fibroid as before." Due to her complicated history and active GI bleeding the patient was admitted to the hospitalist service for further evaluation and treatment. # Gastrointestinal bleed secondary to hereditary hemorrhagic telangiectasia or HHT with acute blood loss anemia, present on admission. Active - Patient transfused 2 units of packed red blood cells as is all she allowed this time. - Check repeat CBC in a.m. and transfuse 2 more units if appropriate. - Plan for GI consultation. Patient is very well known to Dr. Sam # Fever of 101.7F, present on admission. Active - Check blood cultures which are pending - Continue linezolid and ertapenem as at home. - Check CBC and pro-calcitonin I am - Patient has a history of sepsis secondary to VRE and Klebsiella. 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 Active - Patient had recent internal biliary drains placed at [facility] - Patient still has an externalized hepatic drain in place. - Check blood cultures - Obtain records from [facility] # Hypoxia prior to admission at the [facility] facility, prior to admission. Currently no hypoxia present time. - This is possibly due to high-output congestive heart failure acute blood loss anemia. - Monitor patient very closely. - Lasix was given after 2 units of packed red blood cells were given to help prevent pulmonary edema and/or pleural effusions. # Severe protein calorie malnutrition, present on admission with a BMI of 17.0 kg/m. Active - We will discuss plans with gastroenterology portfolio consultant - We will place on full liquid diet for now. # Urinary fibroid mass, which is impinging on the colon resulting in constipation, present on admission. Active - Continue full liquid diet for now - Discuss options with gastroenterology Disposition: Patient will be here for more than 2 midnights for evaluation and treatment of the above serious conditions. Therefore, the patient was admitted as an inpatient. Pain Evaluation: Adequate Pain Control GI Prophylaxis: Proton Pump Inhibitor VTE Prophylaxis: SCDs Resuscitation Status: DNR/DNI:Do Not Resuscitate/Intubate Nelson Centeno MD Apr 05, 2017 20:53
[2017-04-05] MEDS: Pantoprazole 20 mg ER24 Tablet PO SCH (22:33)
[2017-04-05] MEDS: HYDROmorphone 0.5 mg/0.5 mL iSecure Syringe IVPUSH PRN (22:34)
--- NOTE | 2017-04-05 23:11 | NUR ---
FEVER During routine VS, pts temp 38.7. Pt denies chills. [place] Team hospitalist notified, aware of temp. Blood cultures and UA already sent. Home regimen of IV and PO abx administered. Pt encouraged the deep breathe, pt still needs IS teaching. Pt given prn PO tylenol. Pts temp had decreased to 38.1 prior to any medications. Heavy blankets removed, room temperature adjusted. Continue to monitor. Call light in reach. Bed alarm on. Intentional rounding.
[2017-04-06] VITALS (9 sets, daily range): BP systolic 90–128; BP diastolic 48–60; PULSE 70–96; RESP 16–18; O2SAT 95–99
[2017-04-06] MEDS: HYDROmorphone 0.5 mg/0.5 mL iSecure Syringe IVPUSH PRN ×4 (02:44→21:36)
[2017-04-06 06:16] LABS: BASOPHILS % (AUTO) 0.4 % (0-3); EOSINOPHILS % (AUTO) 1.5 % (0-5); MONOCYTES % (AUTO) 13.7 % (4-12); Mean Corpuscular Hemoglobin 30.2 pg (27.0-35.0); Mean Corpuscular Volume 92.7 fL (81-100); NEUTROPHILS % (AUTO) 74.9 % (40-74); Platelet Count 365 bil/L (150-400)
[2017-04-06 06:46] LABS: Magnesium 2.1 mg/dL (1.6-2.6)
[2017-04-06 07:00] LABS: ERYTHROCYTE SEDIMENTATION RATE 34 mm/hr (0-40)
[2017-04-06] MEDS: Pantoprazole 20 mg ER24 Tablet PO SCH ×2 (09:24→21:31)
[2017-04-06] MEDS: Ertapenem Inj 1,000 MG in 0.9% Sodium Chloride 50 ML IV SCH (09:24)
[2017-04-06] MEDS: Polyethylene Glycol (PEG) 17 Gm Powder PO SCH (09:24)
--- NOTE | 2017-04-06 11:18 | DRSVH ---
PROCEDURE: X-RAY CHEST ONE VIEW, PORTABLE ([id number]) INDICATIONS: 81 year-old female with retrocardiac opacity on recent chest film. TECHNIQUE: One view of the chest was acquired. COMPARISON: [facility], CR, XR CHEST 1VW (PORTABLE), 04/05/2017, 11:57. [facility], CR, XR CHEST 1VW (PORTABLE), 03/20/2017, 17:34. [facility], CR, XR CHEST 1VW (POR TABLE), 03/20/2017, 16:52. FINDINGS: Surgical changes and devices: Right thoracic outlet surgical clips are again noted, as well as right upper quadrant pigtail drain. Lungs and pleura: There is persistent retrocardiac air space opacity, as well as small basal left ple ural effusion. Right lung appears clear. No pneumothorax. Mediastinum: Mediastinal contours appear normal. Heart size is normal. There is aortic atheroscler osis. Bones and chest wall: No suspicious bony lesions. Overlying soft tissues appear unremarkable. IMPRESSION: Persistent small basal left pleural effusion, along with retrocardiac compressive atelect asis, aspiration, versus pneumonia. Dictated by: Blaze Zurita M.D. on 04/06/2017 at 11:14 Approved by: Blaze Zurita M.D. on 04/06/2017 at 11:16
--- NOTE | 2017-04-06 14:25 | NUR ---
Evaluation completed. Please go to "Notes" then click on "Assessments and Notes" (bottom left corner of screen). Then select appropriate discipline tab on top of screen.
--- NOTE | 2017-04-06 16:11 | NUR ---
Social Work-initial assessment: Data:See initial assessment. Pt is a 81 y/o female who was admitted on 04/05/17 for anemia per H&P. Pt's insurance is [employer] and PCP is Macy Baird MD. EMR Reviewed. SW met with pt at bedside, SW role explained. Pt is alert and oriented x 3. Pt states she has been residing at [facility] for the last little bit. Pt uses a fww at baseline and does not drive. Pt has HH history. Pt has no terminal system operator care insurance or VA benefits. SW discussed DPOA/ advanced directive, pt confirms she has been completed this, SW encouraged a copy to be brought in. Pt plans to return back to [facility] at discharge. SW awaiting MD order to discuss with [facility]. SW provided pt with discharge planning checklist and encouraged her to call with any questions. SW provided pt with phone number. SW will continue to follow. Assessment:Pt to return to [facility]. Plan:Pt to discharge back to [facility] when medically stable. [place] authorization will need to be obtained. SW to await MD order for SNF. SW will continue to follow. SOHAN Gayle Addendum: 04/06/17 at 1616 by GLORIA JACKSON SS Amended: Links added.
--- NOTE | 2017-04-06 17:00 | NUR ---
Pain/activity IV Dilaudid administered x 2 for abdominal pain 5/10 on pain scale. K-pad was given for additional relief. Pt reports pain was at a tolerable level. Pt was able to work with PT in the room, is a 1 per assist to the [facility]. Drain was flushed. Will continue to monitor.
[2017-04-06] MEDS ORDERED: 0.9% Sodium Chloride 250 ML ONE (19:50)
--- NOTE | 2017-04-06 22:27 | PCM.PNMED ---
Subjective Date of Service Apr 06, 2017 Subjective The patient is feeling a little bit better today. She has no other new complaints. Exam Vital Signs Vital Sign - Last Date Time Temp Pulse Resp B/P Pulse Ox O2 Delivery O2 Flow Rate FiO2 04/06/17 20:42 37.4 88 16 128/60 95 Room Air 04/05/17 11:37 2 Intake and Output 04/05/17 04/05/17 04/06/17 Cumulative From/Thru 15:00 23:00 07:00 04/05/17 11:37 - 04/06/17 05:51 Intake Total 310 ml 1100 ml 182 ml 1592 ml Output Total 125 ml 650 ml 435 ml 1210 ml Balance 185 ml 450 ml -253 ml 382 ml Intake Oral 800 ml 50 ml 850 ml IV Total 310 ml 300 ml 132 ml 742 ml Output Urine Total 125 ml 650 ml 425 ml 1200 ml Drainage Total 10 ml 10 ml # Voids 1 1 2 Exam General: Patient is cachectic. She is awake and alert and articulate. She is eating much better. She appears less pale. HEENT: Head is atraumatic and normocephalic. Eyes: Pupils are equally round and reactive to light and accommodation. Extraocular muscles are intact. Sclera are white, anicteric. Subconjunctival mucosa is pink. Ears and nose are unremarkable. Oropharynx: There is no mucosal lesions, there is no thrush, there is no pharyngitis. Neck: Is supple, there are no nodes, or masses or tenderness. Chest: Is clear to auscultation and percussion. There are no rales, rhonchi, wheezes or rubs. Heart: Rate, rhythm is regular. There is no murmur, rub or gallop. Abdomen: Good bowel sounds are present. Abdomen is soft, nontender, no organomegaly or masses were appreciated. There is an externalized hepatic drain present with minimal bile green drainage in the drain bag. Extremities: Are symmetrical and well perfused. There is less edema, which was difficult to detect yesterday, however it is clearly evident that patient had edema yesterday which is gone today after blood transfusion and Lasix. There is no cellulitis, no rash. Neurologic: There are no focal neurological deficits. Cranial nerves II through XII are intact. There are no sensory or motor deficits. Patient is very alert and oriented. Psychiatric: Patients mood is calm and shows no sign of agitation. Genital: Deferred Rectal: Deferred Lab and Diagnostics Result Diagram: 04/06/17 0545 04/06/1745 Microbiology Urinalysis is unremarkable and culture is not indicated Blood cultures are pending X-Rays, CTs and MRIs PROCEDURE: X-RAY CHEST ONE VIEW, PORTABLE ([id number]) INDICATIONS: hypoxia TECHNIQUE: One view of the chest was acquired. COMPARISON: [facility], CR, XR CHEST 1VW (PORTABLE), 03/20/2017, 17: 34. FINDINGS: Surgical changes and devices: Surgical clips project in the right base of neck. There is a pigtail catheter projecting in the right upper quadrant. Lungs and pleura: Trace left pleural effusion. No right pleural effusion or pneumothorax. There is dense retrocardiac consolidation. Mediastinum: Mediastinal contours appear normal. Heart size is normal. Bones and chest wall: No suspicious bony lesions. Overlying soft tissues appear unremarkable. IMPRESSION: Dense retrocardiac consolidation in keeping with pneumonia or aspiration. Please correlate clinically. Trace left pleural effusion Dictated by: Andre Herring M.D. on 04/05/2017 at 12:33 Approved by: Andre Herring M.D. on 04/05/2017 at 12:34 PROCEDURE: CT CHEST, ABDOMEN AND PELVIS WITH CONTRAST ([id number]) INDICATIONS: SOB, ?pneumonia/effusion, f/u hepatic abscess TECHNIQUE: After the administration of intravenous contrast, 5 mm thick sections acquired from the lung apices to the symphysis. 5 mm coronal and sagittal reformats were performed, with additional 7 mm MIP reformats through the lungs. For radiation dose reduction, the following was used: automated exposure control, adjustment of mA and/or kV according to patient size. COMPARISON: [facility], CT, CT ABD PELVIS W CON, 03/20/2017, 19:02. FINDINGS: Image quality: Excellent. CHEST: Lungs and pleura: Small-moderate bilateral pleural effusions with adjacent atelectasis. Mediastinum: Heart size is enlarged. No pericardial effusion. No mediastinal or hilar adenopathy by size criteria. Thoracic aorta and central pulmonary arteries are normal in size. Esophagus is normal in caliber. No hiatal hernia. Chest wall: No axillary or supraclavicular adenopathy by size criteria. The right lobe of the thyroid is not well-seen. Left lobe unremarkable.. ABDOMEN: Solid organs: There is placement of pigtail catheter drain within the liver. As the prior study there is enlargement of a low collection adjacent to the drain which now measures 5.6 x 5.0 cm, previously 2.2 x 2.3 cm. There is adjacent ill- defined infiltrative edema. Main portal vein appears patent. There is an internal biliary stent as before. Pancreas and spleen grossly unremarkable. No definite adrenal nodule. Bilateral renal cortical thinning. No hydronephrosis. and spleen are normal in size and enhancement. Gallbladder not seen. Biliary system is non dilated. Pancreas enhances normally. No adrenal nodules. Kidneys demonstrate normal size and enhancement, without hydronephrosis. Peritoneum and bowel: Large amount of stool seen throughout the colon. No evidence of bowel obstruction. No free air. No free fluid. Nodes and vessels: No retroperitoneal or mesenteric adenopathy by size criteria. Aorta and inferior vena cava are normal in size. Miscellaneous: No ventral hernias. PELVIS: Genitourinary: Bladder wall thickness is normal. Redemonstration of large left -sided uterine fibroid with central calcification. Miscellaneous: No inguinal hernias or adenopathy. Bones: No suspicious bony lesions. No vertebral body compression fractures. IMPRESSION: Status post placement of hepatic drain, however since the prior study dated 03/20 there is an enlarging intrahepatic fluid collection, suspicious for persistent abscess, just medial to the pigtail tip as measured above. There is persistence adjacent intrahepatic infiltrative edema and fluid. Please correlate clinically. Small to moderate bilateral pleural effusions with adjacent atelectasis. Cardiomegaly. Large uterine fibroid as before. Dictated by: Andre Herring M.D. on 04/05/2017 at 18:39 Approved by: Andre Herring M.D. on 04/05/2017 at 18:55 Cardiac Echo Impressions Echocardiogram Report Name: STEWART UREÑA Graeme e: 02/05/2017 Height: 63 in Hospital Exam Location: [facility] Weight: 90 lb Gender: Female BSA: 1.4 m2 : 1935 Age: 81 yrs BP: 110/54 mmHg Reason For Study: Bacteremia Performed By: Corrie Jeffrey Referring Physician: ADALBERTO EKLLEY Interpretation Summary The left ventricle is normal in size. Left ventricular systolic function is normal without focal wall motion abnormalities. The ejection fraction is estimated to be 60-65%. Assessment of diastolic parameters indicates normal left ventricular diastolic function and normal filling pressures. The right ventricle is normal in size and function. The right ventricular systolic pressure is estimated at 34 mmHg assuming a right atrial pressure of 3 mm Hg. The left atrium is mildly dilated. Right atrial size is normal. The aortic valve is trileaflet. The aortic valve opens well. There is no aortic regurgitation. There is very small filamentous strand at the tips of aortic leaflets. This is best seen on parasternal long axis views with inncreased magnification. Differential should include endocarditis or Lambl's excrescence. Given positive blood cultures, OLU is recommended. Other valves do not have any obvious evidence for endocarditis. The aortic root is mildly dilated. The ascending aorta is mildly enlarged. Moderate atherosclerotic plaque(s) in the aortic arch. 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 and on linezolid and ertapenem daily. 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 Patient has had multiple gastrointestinal bleeds requiring weekly transfusions. Just 4-5 days ago patient was at [facility] having to or more abdominal shunts placed to further drain her chronic liver abscesses after presenting to [facility] emergency department with sepsis. She states after being discharged she had been feeling worse than her prior baseline in terms of generalized weakness and feeling unwell. She has been having intermittent epigastric abdominal pain which is typical for her chronic pain. She was transfused with 2 units of blood while at [facility] and transfused 2 units of blood 2 days ago. Patient denies any fever, chest pain, shortness of breath, nausea, vomiting, dysuria or cough. The patient continued to feel poorly and at [facility] she had her O2 sat checked and was found to be 70-80% and her blood pressure was low at less than 100 systolic this morning. Therefore the [facility] called 911 patient was brought to [facility] emergency room. The emergency room she was evaluated by Dr. Alvaro Dahl who found her hemoglobin to be 5.5 and her hematocrit to be only 17.7. A chest x-ray showed dense retrocardiac consolidation in keeping with pneumonia or aspiration. Therefore, a CT scan was ordered and showed "Status post placement of hepatic drain, however since the prior study dated 03/20/17 there is an enlarging intrahepatic fluid collection, suspicious for persistent abscess, just medial to the pigtail tip as measured above. There is persistence adjacent intrahepatic infiltrative edema and fluid. Please correlate clinically. Small to moderate bilateral pleural effusions with adjacent atelectasis. Cardiomegaly. Large uterine fibroid as before." Due to her complicated history and active GI bleeding the patient was admitted to the hospitalist service for further evaluation and treatment. # Gastrointestinal bleed secondary to hereditary hemorrhagic telangiectasia or HHT with acute blood loss anemia, present on admission. Active - Patient transfused 2 units of packed red blood cells as is all she allowed this time. - Check repeat CBC in a.m. and transfuse 2 more units if appropriate. - Plan for GI consultation. Patient is very well known to Dr. Sam, we will consult him in a.m. # Fever of 101.7F, present on admission. Active - Check blood cultures which are pending - Continue linezolid and ertapenem as at home. - Check CBC and pro-calcitonin I am - Patient has a history of sepsis secondary to VRE and Klebsiella. We will consider infectious disease consultation. 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 Active - Patient had recent internal biliary drains placed at [facility] - Patient still has an externalized hepatic drain in place. - Check blood cultures - Obtain records from [facility] consider infectious disease consultation. # Hypoxia prior to admission at the long term facility, prior to admission. Currently no hypoxia present time. - This is possibly due to high-output congestive heart failure acute blood loss anemia. - Monitor patient very closely. - Lasix was given after 2 units of packed red blood cells were given to help prevent pulmonary edema and/or pleural effusions. # Severe protein calorie malnutrition, present on admission with a BMI of 17.0 kg/m. Active - We will discuss plans with gastroenterology knowledge management consultant - We will place on full liquid diet for now. # Urinary fibroid mass, which is impinging on the colon resulting in constipation, present on admission. Active - Continue full liquid diet for now - Discuss options with gastroenterology Disposition: Patient will be here for another 24-48 hours for the further evaluation and treatment of the above problems. Pain Evaluation: Adequate Pain Control GI Prophylaxis: Proton Pump Inhibitor VTE Prophylaxis: SCDs Resuscitation Status: DNR/DNI:Do Not Resuscitate/Intubate Nelson Centeno MD Apr 06, 2017 22:27
[2017-04-07] VITALS (7 sets, daily range): BP systolic 95–118; BP diastolic 52–68; PULSE 63–93; RESP 16–18; O2SAT 93–98
[2017-04-07] MEDS: HYDROmorphone 0.5 mg/0.5 mL iSecure Syringe IVPUSH PRN ×3 (02:22→20:06)
[2017-04-07 06:31] LABS: BASOPHILS % (AUTO) 0.3 % (0-3); EOSINOPHILS % (AUTO) 1.8 % (0-5); MONOCYTES % (AUTO) 12.4 % (4-12); Mean Corpuscular Hemoglobin 30.4 pg (27.0-35.0); Mean Corpuscular Volume 92.2 fL (81-100); NEUTROPHILS % (AUTO) 74.6 % (40-74); Platelet Count 256 bil/L (150-400)
[2017-04-07 06:44] LABS: Magnesium 1.9 mg/dL (1.6-2.6)
[2017-04-07] MEDS: Ertapenem Inj 1,000 MG in 0.9% Sodium Chloride 50 ML IV SCH (09:19)
[2017-04-07] MEDS: Pantoprazole 20 mg ER24 Tablet PO SCH ×2 (09:20→20:06)
[2017-04-07] MEDS: Polyethylene Glycol (PEG) 17 Gm Powder PO SCH (09:21)
--- NOTE | 2017-04-07 11:18 | NUR ---
Social Work-readiness for discharge: Data:EMR Reviewed. Pt is on day 2 of hospitalization for anemia per H&P. Pt is not medically stable anticipate 1-2 more days. MD order received for return to SNF. SW spoke with [facility] who confirms that pt can return with Dr. Bautista to follow. Authorization will need to be obtained. Paperwork in the chart. SW will continue to follow. Assessment:Pt who would benefit from SNF. Plan:Pt to discharge back to [facility] when medically stable. Authorization will need to be obtained. Paperwork in the chart. SW will continue to follow. SOHAN Gayle
--- NOTE | 2017-04-07 18:40 | PCM.CHPMED ---
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 She was recently hospitalized at our facility due to the hepatic abscesses and was transferred to [facility] for higher level of care and stent placement for bilomas. She was discharged approximately 7-8 days ago from [facility] to [facility]. Just prior to discharge patient received 2 units of PRBCs and a subsequent 2 units have been transfused since discharge and prior to admission here. Upon admission she was found to have a hemoglobin of 5.5 and was transfused another 2 units. We do not have records from [facility] in regards to her biliary stenting and placement of a pigtail drain. CT of the abdomen shows hepatic drain in place with enlarged intrahepatic fluid collection compared to prior study on 03/20/17 along with pigtail drain that does not appear to be optimally placed. Since admission patient has spiked a fever with a Tmax of 38.7 on the evening of 04/05/2017. No subsequent fevers since. Today the patient continues to have generalized weakness and fatigue. She denies any remaining shortness of breath , chest pain, fever, chills, nausea, or vomiting. She does note a significant decreased appetite. She admits that she is rather discouraged as she has spent more time in the hospital over the last few months compared to that out. Review of Systems: Comprehensive review of systems was conducted with the patient and found to be negative except as noted above in HPI. 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 Status post gastric perforation 10/25, requiring closure of the perforation. Hepatic abscess (+VRE, drained removed at [facility] 03/18/17) on Linezolid and Ertapenem daily Acquired Hypothyroidism. 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 at [facility] in September 2016 Laparoscopic closure of anterior gastric perforation with omental patch and washout (10/31/16) Bilateral cataract removal GI stent placement Status post percutaneous drainage of hepatic abscess Tonsillectomy Home Medications Linezolid (Linezolid) 600 Mg Tablet 600 MG PO BID Pantoprazole DR (Pantoprazole DR) 20 Mg Tablet.dr 20 MG PO BID Polyethylene Glycol 3350 (Miralax) 17 Gm Powd.pack 17 GM PO DAILY Thyroid,Pork ([place] Thyroid) 60 Mg Tablet 60 MG PO DAILY Ertapenem Allergies: Coded Allergies: NSAIDS (Non-Steroidal Anti-Inflamma (Unverified Allergy, Intermediate, ) Uncoded Allergies: NSAIDS (Allergy, Intermediate, 04/05/17) Family History Family History Patient is adopted and does not know her family history The patient's son also has hereditary hemorrhagic telangiectasia and suffered from a brain abscess last year requiring hospitalization. Granddaughter likely also has HHT due to recurrent nosebleeds however this is undiagnosed at this time. Social History Hx Alcohol Use: Yes (nothing recently)Hx Substance Use: NoHx Tobacco Use: No Smoking Status: Never Smoker Living Arrangement: Independent Correction (The patient [facility] her [facility] Exam Vital Signs Vital Sign - Last Date Time Temp Pulse Resp B/P Pulse Ox O2 Delivery O2 Flow Rate FiO2 04/07/17 16:42 37.0 91 18 113/68 98 Room Air 04/05/17 11:37 2 Intake and Output 04/06/17 04/06/17 04/07/17 Cumulative From/Thru 15:00 23:00 07:00 04/05/17 11:37 - 04/07/17 06:41 Intake Total 191 ml 260 ml 2043 ml Output Total 150 ml 350 ml 1710 ml Balance 41 ml -90 ml 333 ml Intake Oral 40 ml 120 ml 1010 ml IV Total 151 ml 140 ml 1033 ml Output Urine Total 150 ml 350 ml 1700 ml Drainage Total 10 ml # Voids 2 General: Alert, Oriented X3, Other (frail and cachectic) Head: Other (temporal wasting) Eyes: PERRLA, Scleral Anicteric Mouth: Mucous Membr Moist/[place] Neck: Supple Chest & Lungs: Clear to auscultation & percussion Cardiovascular: Regular Rate/Rhythm Pulses: Radial, Dorsalis Pedis, Post Tibial Abdomen: Non-tender, Distended, Other (firm, pigtail drain in place on the right lower quadrant draining bilious appearing fluid) Musculoskeletal: Normal Range of Motion Extremities: Other (muscle wasting) Neurological: Grossly Neurologically Intact Lab and Diagnostics Result Diagram: 04/07/1755 04/07/1755 Assessment & Plan Assessment Niesha Ford is an 81-year-old female with past medical history significant for HHT with gastric and duodenal telangietasias, history of VRE, and 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 Found to have a hemoglobin of 5.5 entrance fused 2 units PRBCs with appropriate improvement in hemoglobin. CT of the abdomen showed hepatic stent in place and pigtail drain although this does not seem optimally placed. Also of note on CT patient appears severely constipated likely secondary to her uterine fibroid which is not a new finding. GI recommendations: - Requested records from [facility]. Awaiting arrival. At this time unclear what procedures were completed at [facility]. The patient states she believes everything went as expected. - Mineral oil enema as patient is significantly constipated. - IR should be contacted about repositioning of pigtail drain. - We will defer any changes in antibiotic therapy to ID, Dr. Webber. Patient currently on ertapenem and Linezolid. - Continue to closely monitor patient's temperature. No recent fever for over 48 hours. - Blood cultures negative at 2 days. Thank you for involving us in this patient's care. We will continue to follow. Problems: Pain Evaluation: Adequate Pain Control GI Prophylaxis: Proton Pump Inhibitor VTE Prophylaxis: SCDs Resuscitation Status: DNR/DNI:Do Not Resuscitate/Intubate Attending Statement Patient seen and examined. Agree with assessment and plan as described by Dr Tyson. I suspect the pigtail percutaneous drain may need to be manipulated for more optimal drainage of the increasing biloma cavity. Pneumobilia is present, but in the context of a transpapillary biliary stent and no evidence of rising bilirubin this is would in fact be normal. As for the symptomatic anemia, Niesha for now would like to monitor her response to the further transfusion and hold off on EGd tomorrow. Will continue monitor and plan for EGD if she appears to have ongoing clinical bleeding. GOLD TYSON DO Apr 07, 2017 18:40 Jose Sam MD Apr 07, 2017 21:45
--- NOTE | 2017-04-07 19:53 | PROG NOTE ---
[address] [address] PROGRESS NOTE PATIENT: STEWART UREÑA : 1935 MR#: [id number] ADMIT: 04/05/2017 JOB ID: [id number] DATE: 04/07/2017 REASON FOR FOLLOWUP: Complicated polymicrobial liver abscess. INTERVAL HISTORY: This is an incredibly complicated patient, whom I have been following for 3-1/2 months with a complex liver abscess. This liver abscess has grown gram-negative rods, including E. coli and Klebsiella, as well as VRE. When the patient was most recently admitted to this facility in early March, she seemed somewhat improved, even though she still had a complex liver abscess with right upper quadrant drain in place. At that time, there were extensive discussions and the plan was for the patient to return to [facility]. An aspiration of the liver at that time grew only VRE, and we have not found any gram-negative rods for a period of time, so we decided to stop all anaerobic and gram-negative coverage, and simply send the patient back to [facility] on linezolid 600 b.i.d. It was notable at that time she had already had several weeks of linezolid therapy for the VRE within her liver abscess and she was still tolerating it well with no evidence of neuropathy, lactic acidosis, or thrombocytopenia. Since her discharge back to [facility] in early March, many things have happened. The patient saw me in clinic on or about March 19 or so and seemed to be doing reasonably well on linezolid. Unfortunately, on March 20, she presented to the ED and was found to have apparent sepsis. Because of that, the patient was transferred back to [facility] where she had been seen previously and her infection addressed with both ertapenem and in continuation of the linezolid. Blood cultures that were done here on the subsequently grew a very sensitive E. coli. At [facility] apparently additional external as well as internal drains were placed. Recall that she already had an external drain, but apparently that was upgraded and she also had a single intrahepatic biliary drain, and this and a 2nd drain was added during her stay at [facility] during the latter half of March, though I do not have access to those records. The patient was then discharged from [facility] back to [facility] only to be readmitted here on April 05 with malaise, weakness, and shortness of breath. 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 She has subsequently had been transfused, but during the course of her two-day admission here, she has begun to spike fevers, and has been maintained on linezolid and ertapenem while we await additional culture and reports, as well as additional information from [facility]. A CT scan today shows that the external drain did not quite reach to the current abscess which seems to be enlarging and there is a plan underway to replace or changed that drain tomorrow to better facilitate drainage of her liver abscess. The patient tells me this afternoon she has not had any subjective fevers or chills during this admission, and she was surprised to hear she had been febrile on April 05. Patient is becoming very despondent as she has been basically in and out of the hospital for six months with bleeding, requiring transfusion relating to her HHT, as well as complications relating to her liver abscesses. PHYSICAL EXAMINATION: This afternoon reveals a wasted, somewhat discouraged woman who is in no overt distress. She has been afebrile since the evening of April 05 or about 48 hours. Current temp 37, pulse 91, respiratory rate 18, blood pressure 113/68. She is saturating well on room air. She is awake and alert. Temporal wasting is definitely present and her face is gaunt. Oral cavity without notable abnormality. Lungs fairly clear. Cardiac tones without new murmur. The abdomen is mildly tender in the right upper quadrant. A right upper quadrant drain is present and draining what appears to be bile. No skin rash is present and the patient extremely pale. LABORATORIES: Include white count 6100 today. It was 11,000 when she came back in on April 05. Platelet count stable at 256 despite several weeks now of linezolid. Sed rate 34, creatinine less than 0.3. Alk phos 495. AST and ALT are normal. Albumin 2.1. Procalcitonin 0.11. Urinalysis without white cells. Micro studies include negative blood cultures from April 05. We do have positive blood cultures from the ED visit on the , which yielded a pansusceptible E. Coli. Back on March 12, we had cultures from the hepatic abscess which grew VRE, which had been present on numerous earlier cultures as well, including some from February 07 and February 03. IMAGING: Includes a chest x-ray done the , which shows a small left pleural effusion and probable compressive atelectasis. A CT scan done on the , when she was readmitted, shows the hepatic drain, but the fluid collection is actually bigger than it was on the last imaging available here on March 20 in that the intrahepatic fluid collection, which appears to be an abscess, is bigger. The drain does not quite reach this fluid collection. 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 Despite our best efforts with many internal as well as external drains, the abscess persists and in fact is even a bit bigger than it was a couple weeks ago. The current drainage appears to be bile, at least to my untrained eye, and I think unless we can address the flow of bile into the liver parenchyma and the continued infection, we will not likely gain control of this patient's problems. RECOMMENDATIONS: 1. I have discussed this case in detail this afternoon with Dr. Sam of GI as well as Dr. Centeno of the hospitalist service. 2. I agree with plans to replace or reposition the drain so as to effect better drainage of the liver abscess. 3. Will check a lactic acid tomorrow to make sure the patient is not developing a lactic acidosis after these many, many weeks of linezolid. 4. No other ID changes at this time. MTDD
[2017-04-07] MEDS ORDERED: 0.9% Sodium Chloride 250 ML ONE (21:52)
[2017-04-08] MEDS: HYDROmorphone 0.5 mg/0.5 mL iSecure Syringe IVPUSH PRN ×5 (00:39→22:22)
--- NOTE | 2017-04-08 01:44 | PCM.PNMED ---
Subjective Date of Service Apr 08, 2017 Subjective The patient has no new complaints. She is eating her diet fairly well. She has no fever, no chills and no diaphoresis. Exam Vital Signs Vital Sign - Last Date Time Temp Pulse Resp B/P Pulse Ox O2 Delivery O2 Flow Rate FiO2 04/07/17 20:37 36.9 88 18 105/52 95 Room Air 04/05/17 11:37 2 Intake and Output 04/07/17 04/07/17 04/08/17 Cumulative From/Thru 15:00 23:00 07:00 04/05/17 11:37 - 04/07/17 20:30 Intake Total 200 ml 2243 ml Output Total 250 ml 1960 ml Balance -50 ml 283 ml Intake Oral 200 ml 1210 ml IV Total 1033 ml Output Urine Total 250 ml 1950 ml Drainage Total 10 ml # Voids 2 # Bowel Movements 1 1 Exam General: Patient is cachectic. She is awake and alert and articulate. She continues to be well. She is a little discouraged with the fact that she has not been out of the hospital for more than 5 days in several months. HEENT: Head is atraumatic and normocephalic. Eyes: Pupils are equally round and reactive to light and accommodation. Extraocular muscles are intact. Sclera are white, anicteric. Subconjunctival mucosa is pink. Ears and nose are unremarkable. Oropharynx: There is no mucosal lesions, there is no thrush, there is no pharyngitis. Neck: Is supple, there are no nodes, or masses or tenderness. Chest: Is clear to auscultation and percussion. There are no rales, rhonchi, wheezes or rubs. Heart: Rate, rhythm is regular. There is no murmur, rub or gallop. Abdomen: Good bowel sounds are present. Abdomen is soft, nontender, no organomegaly or masses were appreciated. There is an externalized hepatic drain present with minimal bile green drainage in the drain bag. Extremities: Are symmetrical and well perfused. There is less edema, which was difficult to detect yesterday, however it is clearly evident that patient had edema yesterday which is gone today after blood transfusion and Lasix. There is no cellulitis, no rash. Neurologic: There are no focal neurological deficits. Cranial nerves II through XII are intact. There are no sensory or motor deficits. Patient is very alert and oriented. Psychiatric: Patients mood is calm and shows no sign of agitation. Genital: Deferred Rectal: Deferred Lab and Diagnostics Result Diagram: 04/07/17 0504/07/17 05 Microbiology Urinalysis is unremarkable and culture is not indicated Blood cultures are pending X-Rays, CTs and MRIs PROCEDURE: X-RAY CHEST ONE VIEW, PORTABLE ([id number]) INDICATIONS: hypoxia TECHNIQUE: One view of the chest was acquired. COMPARISON: [facility], CR, XR CHEST 1VW (PORTABLE), 03/20/2017, 17: 34. FINDINGS: Surgical changes and devices: Surgical clips project in the right base of neck. There is a pigtail catheter projecting in the right upper quadrant. Lungs and pleura: Trace left pleural effusion. No right pleural effusion or pneumothorax. There is dense retrocardiac consolidation. Mediastinum: Mediastinal contours appear normal. Heart size is normal. Bones and chest wall: No suspicious bony lesions. Overlying soft tissues appear unremarkable. IMPRESSION: Dense retrocardiac consolidation in keeping with pneumonia or aspiration. Please correlate clinically. Trace left pleural effusion Dictated by: Andre Herring M.D. on 04/05/2017 at 12:33 Approved by: Andre Herring M.D. on 04/05/2017 at 12:34 PROCEDURE: CT CHEST, ABDOMEN AND PELVIS WITH CONTRAST ([id number]) INDICATIONS: SOB, ?pneumonia/effusion, f/u hepatic abscess TECHNIQUE: After the administration of intravenous contrast, 5 mm thick sections acquired from the lung apices to the symphysis. 5 mm coronal and sagittal reformats were performed, with additional 7 mm MIP reformats through the lungs. For radiation dose reduction, the following was used: automated exposure control, adjustment of mA and/or kV according to patient size. COMPARISON: [facility], CT, CT ABD PELVIS W CON, 03/20/2017, 19:02. FINDINGS: Image quality: Excellent. CHEST: Lungs and pleura: Small-moderate bilateral pleural effusions with adjacent atelectasis. Mediastinum: Heart size is enlarged. No pericardial effusion. No mediastinal or hilar adenopathy by size criteria. Thoracic aorta and central pulmonary arteries are normal in size. Esophagus is normal in caliber. No hiatal hernia. Chest wall: No axillary or supraclavicular adenopathy by size criteria. The right lobe of the thyroid is not well-seen. Left lobe unremarkable.. ABDOMEN: Solid organs: There is placement of pigtail catheter drain within the liver. As the prior study there is enlargement of a low collection adjacent to the drain which now measures 5.6 x 5.0 cm, previously 2.2 x 2.3 cm. There is adjacent ill- defined infiltrative edema. Main portal vein appears patent. There is an internal biliary stent as before. Pancreas and spleen grossly unremarkable. No definite adrenal nodule. Bilateral renal cortical thinning. No hydronephrosis. and spleen are normal in size and enhancement. Gallbladder not seen. Biliary system is non dilated. Pancreas enhances normally. No adrenal nodules. Kidneys demonstrate normal size and enhancement, without hydronephrosis. Peritoneum and bowel: Large amount of stool seen throughout the colon. No evidence of bowel obstruction. No free air. No free fluid. Nodes and vessels: No retroperitoneal or mesenteric adenopathy by size criteria. Aorta and inferior vena cava are normal in size. Miscellaneous: No ventral hernias. PELVIS: Genitourinary: Bladder wall thickness is normal. Redemonstration of large left -sided uterine fibroid with central calcification. Miscellaneous: No inguinal hernias or adenopathy. Bones: No suspicious bony lesions. No vertebral body compression fractures. IMPRESSION: Status post placement of hepatic drain, however since the prior study dated 03/20 there is an enlarging intrahepatic fluid collection, suspicious for persistent abscess, just medial to the pigtail tip as measured above. There is persistence adjacent intrahepatic infiltrative edema and fluid. Please correlate clinically. Small to moderate bilateral pleural effusions with adjacent atelectasis. Cardiomegaly. Large uterine fibroid as before. Dictated by: Andre Herring M.D. on 04/05/2017 at 18:39 Approved by: Andre Herring M.D. on 04/05/2017 at 18:55 Cardiac Echo Impressions Echocardiogram Report Name: STEWART UREÑA Graeme e: 02/05/2017 Height: 63 in Hospital Exam Location: [facility] Weight: 90 lb Gender: Female BSA: 1.4 m2 : 1935 Age: 81 yrs BP: 110/54 mmHg Reason For Study: Bacteremia Performed By: Corrie Jeffrey Referring Physician: ADALBERTO KELLEY Interpretation Summary The left ventricle is normal in size. Left ventricular systolic function is normal without focal wall motion abnormalities. The ejection fraction is estimated to be 60-65%. Assessment of diastolic parameters indicates normal left ventricular diastolic function and normal filling pressures. The right ventricle is normal in size and function. The right ventricular systolic pressure is estimated at 34 mmHg assuming a right atrial pressure of 3 mm Hg. The left atrium is mildly dilated. Right atrial size is normal. The aortic valve is trileaflet. The aortic valve opens well. There is no aortic regurgitation. There is very small filamentous strand at the tips of aortic leaflets. This is best seen on parasternal long axis views with inncreased magnification. Differential should include endocarditis or Lambl's excrescence. Given positive blood cultures, OLU is recommended. Other valves do not have any obvious evidence for endocarditis. The aortic root is mildly dilated. The ascending aorta is mildly enlarged. Moderate atherosclerotic plaque(s) in the aortic arch. 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 Patient has had multiple gastrointestinal bleeds requiring weekly transfusions. Just 4-5 days ago patient was at [facility] having to or more abdominal shunts placed to further drain her chronic liver abscesses after presenting to [facility] emergency department with sepsis. She states after being discharged she had been feeling worse than her prior baseline in terms of generalized weakness and feeling unwell. She has been having intermittent epigastric abdominal pain which is typical for her chronic pain. She was transfused with 2 units of blood while at [facility] and transfused 2 units of blood 2 days ago. Patient denies any fever, chest pain, shortness of breath, nausea, vomiting, dysuria or cough. The patient continued to feel poorly and at [facility] she had her O2 sat checked and was found to be 70-80% and her blood pressure was low at less than 100 systolic this morning. Therefore the [facility] called 911 patient was brought to [facility] emergency room. The emergency room she was evaluated by Dr. Alvaro Dahl who found her hemoglobin to be 5.5 and her hematocrit to be only 17.7. A chest x-ray showed dense retrocardiac consolidation in keeping with pneumonia or aspiration. Therefore, a CT scan was ordered and showed "Status post placement of hepatic drain, however since the prior study dated 03/20/17 there is an enlarging intrahepatic fluid collection, suspicious for persistent abscess, just medial to the pigtail tip as measured above. There is persistence adjacent intrahepatic infiltrative edema and fluid. Please correlate clinically. Small to moderate bilateral pleural effusions with adjacent atelectasis. Cardiomegaly. Large uterine fibroid as before." Due to her complicated history and active GI bleeding the patient was admitted to the hospitalist service for further evaluation and treatment. # Gastrointestinal bleed secondary to hereditary hemorrhagic telangiectasia or HHT with acute blood loss anemia, present on admission. Active - Patient transfused 2 units of packed red blood cells as is all she allowed this time. - Check repeat CBC in a.m. and transfuse 2 more units if appropriate. - Plan for GI consultation. Patient is very well known to Dr. Sam, we will consult him in a.m. # Fever of 101.7F, present on admission. Patient has not had a fever since that time. - Check blood cultures which are pending - Continue linezolid and ertapenem as at home. - Check CBC and pro-calcitonin I am - Patient has a history of sepsis secondary to VRE and Klebsiella. We will consider infectious disease consultation. 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 Active - Patient had recent internal biliary drains placed at [facility]. Films were reviewed by Dr. Sam it appears that the drain or drains need to be readjusted. Her ventral radiology will be contacted. - Patient still has an externalized hepatic drain in place. - Check blood cultures - Obtain records from [facility] consider infectious disease consultation. # Hypoxia prior to admission at the senior care facility, prior to admission. Currently no hypoxia present time. - This is possibly due to high-output congestive heart failure acute blood loss anemia. - Monitor patient very closely. - Lasix was given after 2 units of packed red blood cells were given to help prevent pulmonary edema and/or pleural effusions. # Severe protein calorie malnutrition, present on admission with a BMI of 17.0 kg/m. Active - We will discuss plans with gastroenterology employment consultant - We will place on full liquid diet for now. # Urinary fibroid mass, which is impinging on the colon resulting in constipation, present on admission. Active - Continue full liquid diet for now - Discuss options with gastroenterology Disposition: Patient will be here for another 24-48 hours for the further evaluation and treatment of the above problems. Dr. Peck will follow in a.m. Pain Evaluation: Adequate Pain Control GI Prophylaxis: Proton Pump Inhibitor VTE Prophylaxis: SCDs Resuscitation Status: DNR/DNI:Do Not Resuscitate/Intubate Nelson Centeno MD Apr 08, 2017 01:44
--- NOTE | 2017-04-08 05:15 | NUR ---
NOC activity Pt is alert and oriented. Denies chest pain, sob, n/v. Reports of moderate abd discomfort that has been controlled with dilaudid. Pleasant and cooperative with care and able to make needs known. Hourly rounding in effect.
[2017-04-08 05:37] VITALS: BP 115/57; PULSE 79; RESP 16; O2SAT 95
[2017-04-08 06:59] LABS: BASOPHILS % (AUTO) 0.5 % (0-3); EOSINOPHILS % (AUTO) 1.8 % (0-5); MONOCYTES % (AUTO) 12.5 % (4-12); Mean Corpuscular Hemoglobin 29.5 pg (27.0-35.0); Mean Corpuscular Volume 94.9 fL (81-100); NEUTROPHILS % (AUTO) 75.8 % (40-74); Platelet Count 364 bil/L (150-400)
[2017-04-08 07:17] LABS: Magnesium 1.9 mg/dL (1.6-2.6)
[2017-04-08] MEDS: Polyethylene Glycol (PEG) 17 Gm Powder PO SCH (08:30)
[2017-04-08] MEDS: Pantoprazole 20 mg ER24 Tablet PO SCH ×2 (08:41→20:03)
[2017-04-08] MEDS: Ertapenem Inj 1,000 MG in 0.9% Sodium Chloride 50 ML IV SCH (08:42)
--- NOTE | 2017-04-08 10:05 | PCM.PNSURG ---
Subjective Date of Service: Apr 08, 2017 Date of Service: Apr 08, 2017 Visit Information: Reason for Visit Anemia/Pneumonia/Vre Surgery/Surgery Date Post-Op Day # Date of Admission: Apr 05, 2017 at 15:28 Hospital Day # Subjective: Gastroenterology Progress Note No acute events overnight. Patient states she slept well and has had no increased pain, shortness of breath, or chest pain. JOSH drain has had minimal output. She denies any abdominal pain. Patient tolerating breakfast this morning without nausea and vomiting. Objective Vital Sign- Last 8 Hours Date Time Temp Pulse Resp B/P Pulse Ox O2 Delivery O2 Flow Rate FiO2 04/08/17 05:37 36.6 79 16 115/57 95 Room Air Intake and Output- Last 8 Hour 04/08/17 Cumulative From/Thru 07:00 04/05/17 11:37 - 04/08/17 06:35 Intake Total 383 ml 2626 ml Output Total 630 ml 2590 ml Balance -247 ml 36 ml Intake Oral 100 ml 1310 ml IV Total 283 ml 1316 ml Output Urine Total 600 ml 2550 ml Drainage Total 30 ml 40 ml # Voids 2 # Bowel Movements 1 General: Alert, Oriented X3, No Acute Distress, Other (cachectic) Lungs: Clear to Auscultation Heart: Regular Rate/Rhythm Abdomen: Benign, Soft, Non-tender, Other (JOSH drain in place in the right lower quadrant with minimal bilious fluid) Extremities: Distal Pulses Palpable, Warm Neuro: Grossly Neurologically Intact Catheters: None Result Diagram: 04/08/17 0645 04/08/17 0645 Assessment & Plan Impression Niesha Ford is an 81-year-old female with past medical history significant for HHT with gastric and duodenal telangietasias, history of VRE, and hepatic abscesses thought to be bilomas that were recently stented at [facility] who presents to [facility] ED due to intermittent epigastric abdominal pain and generalized weakness. Found to have a hemoglobin of 5.5 entrance fused 2 units PRBCs with appropriate improvement in hemoglobin. CT of the abdomen showed hepatic stent in place and pigtail drain although this does not seem optimally placed. Also of note on CT patient appears severely constipated likely secondary to her uterine fibroid which is not a new finding. This morning patient's hemoglobin has trended down from 8.2-7.5 today. Alkaline phosphatase continues to be elevated at 514. GI recommendations: - Requested records from [facility]. Awaiting arrival. At this time unclear what procedures were completed at [facility]. The patient states she believes everything went as expected. - Patient declined Mineral oil enema overnight. Continue to encourage enema. - IR , Dr. Joel, contacted and she agrees to see patient tomorrow. - No changes to antibiotic therapy made by Dr. Webber. Appreciate his time and recommendations. Patient currently on ertapenem and Linezolid. - Continue to closely monitor patient's temperature. No recent fever for over 72 hours. - Blood cultures negative at 3 days. - Hemoglobin and hematocrit trending downwards. Continue to closely monitor. May need to consider EGD. At this time patient declines. Thank you for involving us in this patient's care. We will continue to follow. Problems: VTE Prophylaxis: SCDs Resuscitation Status: DNR/DNI:Do Not Resuscitate/Intubate Attending Statement: Patient was seen and examined. Agree with assessment and plan as described by Dr Tyson. Mild drop in Hb. May still need EGD. Discussed case with Dr Dela Cruz. Dr Joel hopefully will be able to optimize drain position vs add a second drain tomorrow. GOLD TYSON DO Apr 08, 2017 10:05 Jose Sam MD Apr 08, 2017 21:27
--- NOTE | 2017-04-08 10:41 | PCM.PNMED ---
Subjective Date of Service Apr 08, 2017 Subjective Patient seen and examined. Feels discouraged. Does not complain of pain. Vitals stable. Exam Vital Signs Vital Sign - Last Date Time Temp Pulse Resp B/P Pulse Ox O2 Delivery O2 Flow Rate FiO2 04/08/17 05:37 36.6 79 16 115/57 95 Room Air 04/05/17 11:37 2 Intake and Output 04/07/17 04/07/17 04/08/17 Cumulative From/Thru 15:00 23:00 07:00 04/05/17 11:37 - 04/08/17 06:35 Intake Total 200 ml 383 ml 2626 ml Output Total 250 ml 630 ml 2590 ml Balance -50 ml -247 ml 36 ml Intake Oral 200 ml 100 ml 1310 ml IV Total 283 ml 1316 ml Output Urine Total 250 ml 600 ml 2550 ml Drainage Total 30 ml 40 ml # Voids 2 # Bowel Movements 1 1 Exam General: Patient is cachectic. She is awake and alert and articulate. She continues to be well. She is a little discouraged with the fact that she has not been out of the hospital for more than 5 days in several months. Neck: Is supple, there are no nodes, or masses or tenderness. Chest: Is clear to auscultation and percussion. There are no rales, rhonchi, wheezes or rubs. Heart: Rate, rhythm is regular. There is no murmur, rub or gallop. Abdomen: Good bowel sounds are present. Abdomen is soft, nontender, no organomegaly or masses were appreciated. There is an externalized hepatic drain present with minimal bile green drainage in the drain bag. Extremities: Are symmetrical and well perfused. There is less edema, which was difficult to detect yesterday, however it is clearly evident that patient had edema yesterday which is gone today after blood transfusion and Lasix. There is no cellulitis, no rash. Neurologic: There are no focal neurological deficits. Cranial nerves II through XII are intact. There are no sensory or motor deficits. Patient is very alert and oriented. Psychiatric: Patients mood is calm and shows no sign of agitation. Lab and Diagnostics Result Diagram: 04/08/17 0645 04/08/17 0645 Microbiology Urinalysis is unremarkable and culture is not indicated Blood cultures are pending X-Rays, CTs and MRIs PROCEDURE: X-RAY CHEST ONE VIEW, PORTABLE ([id number]) INDICATIONS: hypoxia TECHNIQUE: One view of the chest was acquired. COMPARISON: [facility], CR, XR CHEST 1VW (PORTABLE), 03/20/2017, 17: 34. FINDINGS: Surgical changes and devices: Surgical clips project in the right base of neck. There is a pigtail catheter projecting in the right upper quadrant. Lungs and pleura: Trace left pleural effusion. No right pleural effusion or pneumothorax. There is dense retrocardiac consolidation. Mediastinum: Mediastinal contours appear normal. Heart size is normal. Bones and chest wall: No suspicious bony lesions. Overlying soft tissues appear unremarkable. IMPRESSION: Dense retrocardiac consolidation in keeping with pneumonia or aspiration. Please correlate clinically. Trace left pleural effusion Dictated by: Andre Herring M.D. on 04/05/2017 at 12:33 Approved by: Andre Herring M.D. on 04/05/2017 at 12:34 PROCEDURE: CT CHEST, ABDOMEN AND PELVIS WITH CONTRAST ([id number]) INDICATIONS: SOB, ?pneumonia/effusion, f/u hepatic abscess TECHNIQUE: After the administration of intravenous contrast, 5 mm thick sections acquired from the lung apices to the symphysis. 5 mm coronal and sagittal reformats were performed, with additional 7 mm MIP reformats through the lungs. For radiation dose reduction, the following was used: automated exposure control, adjustment of mA and/or kV according to patient size. COMPARISON: [facility], CT, CT ABD PELVIS W CON, 03/20/2017, 19:02. FINDINGS: Image quality: Excellent. CHEST: Lungs and pleura: Small-moderate bilateral pleural effusions with adjacent atelectasis. Mediastinum: Heart size is enlarged. No pericardial effusion. No mediastinal or hilar adenopathy by size criteria. Thoracic aorta and central pulmonary arteries are normal in size. Esophagus is normal in caliber. No hiatal hernia. Chest wall: No axillary or supraclavicular adenopathy by size criteria. The right lobe of the thyroid is not well-seen. Left lobe unremarkable.. ABDOMEN: Solid organs: There is placement of pigtail catheter drain within the liver. As the prior study there is enlargement of a low collection adjacent to the drain which now measures 5.6 x 5.0 cm, previously 2.2 x 2.3 cm. There is adjacent ill- defined infiltrative edema. Main portal vein appears patent. There is an internal biliary stent as before. Pancreas and spleen grossly unremarkable. No definite adrenal nodule. Bilateral renal cortical thinning. No hydronephrosis. and spleen are normal in size and enhancement. Gallbladder not seen. Biliary system is non dilated. Pancreas enhances normally. No adrenal nodules. Kidneys demonstrate normal size and enhancement, without hydronephrosis. Peritoneum and bowel: Large amount of stool seen throughout the colon. No evidence of bowel obstruction. No free air. No free fluid. Nodes and vessels: No retroperitoneal or mesenteric adenopathy by size criteria. Aorta and inferior vena cava are normal in size. Miscellaneous: No ventral hernias. PELVIS: Genitourinary: Bladder wall thickness is normal. Redemonstration of large left -sided uterine fibroid with central calcification. Miscellaneous: No inguinal hernias or adenopathy. Bones: No suspicious bony lesions. No vertebral body compression fractures. IMPRESSION: Status post placement of hepatic drain, however since the prior study dated 03/20 there is an enlarging intrahepatic fluid collection, suspicious for persistent abscess, just medial to the pigtail tip as measured above. There is persistence adjacent intrahepatic infiltrative edema and fluid. Please correlate clinically. Small to moderate bilateral pleural effusions with adjacent atelectasis. Cardiomegaly. Large uterine fibroid as before. Dictated by: Andre Herring M.D. on 04/05/2017 at 18:39 Approved by: Andre Herring M.D. on 04/05/2017 at 18:55 Cardiac Echo Impressions Echocardiogram Report Name: STEWART UREÑA Graeme e: 02/05/2017 Height: 63 in Hospital Exam Location: [facility] Weight: 90 lb Gender: Female BSA: 1.4 m2 : 1935 Age: 81 yrs BP: 110/54 mmHg Reason For Study: Bacteremia Performed By: Corrie Jeffrey Referring Physician: ADALBERTO KELLEY Interpretation Summary The left ventricle is normal in size. Left ventricular systolic function is normal without focal wall motion abnormalities. The ejection fraction is estimated to be 60-65%. Assessment of diastolic parameters indicates normal left ventricular diastolic function and normal filling pressures. The right ventricle is normal in size and function. The right ventricular systolic pressure is estimated at 34 mmHg assuming a right atrial pressure of 3 mm Hg. The left atrium is mildly dilated. Right atrial size is normal. The aortic valve is trileaflet. The aortic valve opens well. There is no aortic regurgitation. There is very small filamentous strand at the tips of aortic leaflets. This is best seen on parasternal long axis views with inncreased magnification. Differential should include endocarditis or Lambl's excrescence. Given positive blood cultures, OLU is recommended. Other valves do not have any obvious evidence for endocarditis. The aortic root is mildly dilated. The ascending aorta is mildly enlarged. Moderate atherosclerotic plaque(s) in the aortic arch. 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 Patient has had multiple gastrointestinal bleeds requiring weekly transfusions. Just 4-5 days ago patient was at [facility] having to or more abdominal shunts placed to further drain her chronic liver abscesses after presenting to [facility] emergency department with sepsis. She states after being discharged she had been feeling worse than her prior baseline in terms of generalized weakness and feeling unwell. She has been having intermittent epigastric abdominal pain which is typical for her chronic pain. She was transfused with 2 units of blood while at [facility] and transfused 2 units of blood 2 days ago. Patient denies any fever, chest pain, shortness of breath, nausea, vomiting, dysuria or cough. The patient continued to feel poorly and at [facility] she had her O2 sat checked and was found to be 70-80% and her blood pressure was low at less than 100 systolic this morning. Therefore the [facility] called 911 patient was brought to [facility] emergency room. The emergency room she was evaluated by Dr. Alvaro Dahl who found her hemoglobin to be 5.5 and her hematocrit to be only 17.7. A chest x-ray showed dense retrocardiac consolidation in keeping with pneumonia or aspiration. Therefore, a CT scan was ordered and showed "Status post placement of hepatic drain, however since the prior study dated 03/20/17 there is an enlarging intrahepatic fluid collection, suspicious for persistent abscess, just medial to the pigtail tip as measured above. There is persistence adjacent intrahepatic infiltrative edema and fluid. Please correlate clinically. Small to moderate bilateral pleural effusions with adjacent atelectasis. Cardiomegaly. Large uterine fibroid as before." Due to her complicated history and active GI bleeding the patient was admitted to the hospitalist service for further evaluation and treatment. # Gastrointestinal bleed secondary to hereditary hemorrhagic telangiectasia or HHT with acute blood loss anemia, present on admission. Active - Patient transfused 2 units of packed red blood cells as is all she allowed this time. - Check repeat CBC in a.m. and transfuse 2 more units if appropriate. - GI on board. # Fever of 101.7F, present on admission. Patient has not had a fever since that time. - Check blood cultures which are pending - Continue linezolid and ertapenem as at home. - Patient has a history of sepsis secondary to VRE and Klebsiella. - ID consult , appreciate Dr. 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 Active - Patient had recent internal biliary drains placed at [facility]. Films were reviewed by Dr. Sam it appears that the drain or drains need to be readjusted. Her ventral radiology will be contacted. - Patient still has an externalized hepatic drain in place. - IR revision of drainage tomorrow as per GI # Hypoxia prior to admission at the correction facility, prior to admission. Currently no hypoxia present time. - This is possibly due to high-output congestive heart failure acute blood loss anemia. - Monitor patient very closely. - Lasix was given after 2 units of packed red blood cells were given to help prevent pulmonary edema and/or pleural effusions. # Severe protein calorie malnutrition, present on admission with a BMI of 17.0 kg/m. Active - We will discuss plans with gastroenterology immigration consultant - We will place on full liquid diet for now. # Urinary fibroid mass, which is impinging on the colon resulting in constipation, present on admission. Active - Continue full liquid diet for now - Discuss options with gastroenterology Disposition: Patient will be here for another 24-48 hours for the further evaluation and treatment of the above problems. GI Prophylaxis: Proton Pump Inhibitor VTE Prophylaxis: SCDs Resuscitation Status: DNR/DNI:Do Not Resuscitate/Intubate Time spent 35 mins Manjeet Peck MD Apr 08, 2017 10:41
[2017-04-08 12:31] VITALS: BP 110/62; PULSE 82; RESP 18; O2SAT 98
--- NOTE | 2017-04-08 13:55 | NUR ---
NUTRITION ASSESSMENT: Assess: 81 YO Female admitted for symptomatic anemia, PNA and VRE. Pt continues to have liver abscess stents and pigtail drain which will be manipulated into a better position likely tomorrow per MD. PMHx: Ulcerated gastroesophageal junction, Irregular gastroesophageal junction, Gastric and duodenal hereditary hemorrhagic telangiectasia, Hypothyroid, malnutrition, uterine fibroid. LABS: Reviewed. Cr .29, Ca 7.7, Alk phos 514, Alb 2.2 MEDICATIONS: Reviewed. DIET: Full Liquids. PO avg~50% of meals. GI: BM x 1 (04/07) SKIN: Visible muscle/fat loss in face and arms. ANTHROPOMETRICS: Current wt: 42.1 kg. IBW: 52.3 kg. UBW (November): 54 kg. ESTIMATED NEEDS: Malnutrition/Wt gain Calories: 1449-9739 (30-35 kcal/kg BW) Protein: 65-80 g/day (1.2-1.5 g/kg IBW) NUTRITION DIAGNOSIS: 1.) Severe pro/kcal malnutrition related to chronic illness as evidenced by variable wt, visible loss of LBM/ fat, BMI of 17.0-kg. INTERVENTION: 1) Will add Ensure CL on all trays per pt preference on previous admits. 2) Pt has had high kcal/pro diet education on numerous occasions during previous admits. MONITOR/EVALUATE: PO intake, labs, weights, GI/nutrition status. Follow per high nutrition risk guidelines.
--- NOTE | 2017-04-08 18:31 | NUR ---
pain/drain dressing change pt c/o 5/10 right side abd pain x2 during shift which was relieved to a 0/10 both times after administration. Changed dressing around hepatic drain. CDI
[2017-04-08 20:19] VITALS: BP 117/76; PULSE 87; RESP 18; O2SAT 97
[2017-04-09] MEDS: HYDROmorphone 0.5 mg/0.5 mL iSecure Syringe IVPUSH PRN ×4 (02:57→18:19)
[2017-04-09 04:26] VITALS: BP 104/60; PULSE 91; RESP 18; O2SAT 95
--- NOTE | 2017-04-09 05:51 | NUR ---
PAIN Pt continues to have pain on Right side of abdomen, over drain site. Pt has rated pain "4" out of 10. PRN IV dilaudid has been administered x 2 during shift. Pt has been able to rest/sleep after pain medication administration. Continue to monitor. Call light in reach. Intentional rounding.
[2017-04-09] MEDS: Pantoprazole 20 mg ER24 Tablet PO SCH ×2 (07:36→19:38)
[2017-04-09] MEDS: Polyethylene Glycol (PEG) 17 Gm Powder PO SCH (07:36)
[2017-04-09] MEDS: Ertapenem Inj 1,000 MG in 0.9% Sodium Chloride 50 ML IV SCH (07:44)
[2017-04-09 07:47] LABS: BASOPHILS % (AUTO) 0.4 % (0-3); EOSINOPHILS % (AUTO) 2.3 % (0-5); MONOCYTES % (AUTO) 11.6 % (4-12); Mean Corpuscular Hemoglobin 29.9 pg (27.0-35.0); Mean Corpuscular Volume 96.1 fL (81-100); NEUTROPHILS % (AUTO) 74.1 % (40-74); Platelet Count 403 bil/L (150-400)
--- NOTE | 2017-04-09 08:34 | PCM.PNSURG ---
Subjective Date of Service: Apr 09, 2017 Date of Service: Apr 09, 2017 Visit Information: Reason for Visit Anemia/Pneumonia/Vre Surgery/Surgery Date Post-Op Day # Date of Admission: Apr 05, 2017 at 15:28 Hospital Day # Subjective: Gastroenterology Progress Note No acute events overnight. Patient continues to have some right-sided abdominal pain but this is relieved with periodic doses of Dilaudid. JOSH drain continues to have minimal output. She has been nothing by mouth after midnight. Patient has declined mineral oil enema. She states she is having small bowel movements at this time. Objective Vital Sign- Last 8 Hours Date Time Temp Pulse Resp B/P Pulse Ox O2 Delivery O2 Flow Rate FiO2 04/09/17 04:26 36.5 91 18 104/60 95 Room Air Intake and Output- Last 8 Hour 04/09/17 Cumulative From/Thru 07:00 04/05/17 11:37 - 04/09/17 06:15 Intake Total 111 ml 3539 ml Output Total 700 ml 3927 ml Balance -589 ml -388 ml Intake Oral 0 ml 1946 ml IV Total 111 ml 1593 ml Output Urine Total 700 ml 3875 ml Drainage Total 0 ml 52 ml # Voids 2 # Bowel Movements 1 General: Alert, Oriented X3, No Acute Distress, Other (cachectic) Lungs: Clear to Auscultation Heart: Regular Rate/Rhythm, No Murmurs/Rubs/Gallops Abdomen: Soft, Appropriately tender, Distended, Other (JOSH drain in right lower quadrant with minimal bilious fluid present) Extremities: Distal Pulses Palpable, Warm Neuro: Grossly Neurologically Intact Catheters: None Result Diagram: 04/09/17 0720 04/08/17 0645 Assessment & Plan Impression Niesha Ford is an 81-year-old female with past medical history significant for HHT with gastric and duodenal telangietasias, history of VRE, and hepatic abscesses thought to be bilomas that were recently stented at [facility] who presents to [facility] ED due to intermittent epigastric abdominal pain and generalized weakness. Found to have a hemoglobin of 5.5 entrance fused 2 units PRBCs with appropriate improvement in hemoglobin. CT of the abdomen showed hepatic stent in place and pigtail drain although this does not seem optimally placed. Also of note on CT patient appears severely constipated likely secondary to her uterine fibroid which is not a new finding. Patient's hemoglobin and hematocrit have been stable overnight. She has no new complaints. GI recommendations: - Patient declined Mineral oil enema. Continue to encourage enema as CT showed significant constipation and clinical picture points to this as well. - Dr. Joel will likely see the patient and attempt to optimize drain position today. We await her recommendations. - No changes to antibiotic therapy made by Dr. Webber. Appreciate his time and recommendations. Patient currently on ertapenem and Linezolid. - Continue to closely monitor patient's temperature. No recent fever for over the last 4 days. - Blood cultures negative at 4 days. - Hemoglobin and hematocrit have remained stable overnight. We will defer EGD at this time. Continue to monitor as patient may still need EGD. Thank you for involving us in this patient's care. We will continue to follow. Problems: VTE Prophylaxis: SCDs Resuscitation Status: DNR/DNI:Do Not Resuscitate/Intubate Attending Statement: Patient seen and examined. Agree with assessment and plan as described by Dr Tyson. H/H acceptable. Frustrated by NPO status today and yet no drain adjustment. I spoke with Dr Joel.who at this time suggested a second drain to provide for more optimal drainage. Niesha is hesitant to have another drain and is hopeful that if that is the case both drains could drain into a common bag. GOLD TYSON DO Apr 09, 2017 08:34 Jose Sam MD Apr 09, 2017 22:30
--- NOTE | 2017-04-09 09:36 | PROG NOTE ---
[address] [address] PROGRESS NOTE PATIENT: STEWART UREÑA : 1935 MR#: [id number] ADMIT: 04/05/2017 JOB ID: [id number] DATE: 04/09/2017 INFECTIOUS DISEASE FOLLOW UP NOTE: REASON FOR FOLLOWUP: Biloma complicated by hepatic abscess. INTERVAL HISTORY: Overnight, the patient has been free of fevers, chills or sweats. She reports her shortness of breath is about at baseline and she has not required any transfusions in the last couple days. She has minimal abdominal pain right around the drain. No other new complaints. PHYSICAL EXAMINATION: Reveals an afebrile woman. Temperature 36.5, pulse 91, respiratory rate 18, blood pressure 104/60. She is in no acute distress. She is pale, of course, with pale conjunctivae. Lungs relatively clear. Abdomen with minimal tenderness around the right upper quadrant drain. No new skin rashes noted. LABORATORIES: Today include a white count of 4800, platelet count 403,000. Creatinine 0.34. Alk phos 576. Urinalysis 0-5 white cells. Micro studies include negative follow up blood cultures from the . No new imaging has been performed since the CT that was previously discussed. IMPRESSION: This is an incredibly complicated case of a patient with a hepatic abscess and ongoing biloma. She has internal biliary stents in place as well as an external drain but unfortunately the external drain does not seem to be well positioned in terms of draining her hepatic abscess/biloma. RECOMMENDATIONS: 1. Same antibiotics for today. 2. I have written an order for culturing of the drain aspirate when that is performed as Interventional Radiology does plan to reposition the drain later today. Will continue to follow with you and hopefully we can start to pare back on her antibiotics if we can get negative cultures from this new drainage and good drainage of what is left of this right upper quadrant process.
[2017-04-09 13:24] VITALS: BP 114/63; PULSE 89; RESP 18; O2SAT 96
--- NOTE | 2017-04-09 14:27 | PCM.PNMED ---
Subjective Date of Service Apr 09, 2017 Subjective Patient seen and examined. Waiting patiently for the procedure. No complaints at this point. Vitals stable. Exam Vital Signs Vital Sign - Last Date Time Temp Pulse Resp B/P Pulse Ox O2 Delivery O2 Flow Rate FiO2 04/09/17 13:24 36.5 89 18 114/63 96 Room Air 04/05/17 11:37 2 Intake and Output 04/08/17 04/08/17 04/09/17 Cumulative From/Thru 15:00 23:00 07:00 04/05/17 11:37 - 04/09/17 06:15 Intake Total 802 ml 111 ml 3539 ml Output Total 637 ml 700 ml 3927 ml Balance 165 ml -589 ml -388 ml Intake Oral 636 ml 0 ml 1946 ml IV Total 166 ml 111 ml 1593 ml Output Urine Total 625 ml 700 ml 3875 ml Drainage Total 12 ml 0 ml 52 ml # Voids 2 # Bowel Movements 0 1 Exam General: Patient is cachectic. She is awake and alert and articulate. Chest: Is clear to auscultation and percussion. There are no rales, rhonchi, wheezes or rubs. Heart: Rate, rhythm is regular. There is no murmur, rub or gallop. Abdomen: Good bowel sounds are present. Abdomen is soft, nontender, no organomegaly or masses were appreciated. There is an externalized hepatic drain present with minimal bile green drainage in the drain bag. Extremities: Are symmetrical and well perfused. There is less edema, which was difficult to detect yesterday, however it is clearly evident that patient had edema yesterday which is gone today after blood transfusion and Lasix. There is no cellulitis, no rash. Psychiatric: Patients mood is calm and shows no sign of agitation. Lab and Diagnostics Result Diagram: 04/09/17 0720 04/09/17 0720 Microbiology Urinalysis is unremarkable and culture is not indicated Blood cultures are pending X-Rays, CTs and MRIs PROCEDURE: X-RAY CHEST ONE VIEW, PORTABLE ([id number]) INDICATIONS: hypoxia TECHNIQUE: One view of the chest was acquired. COMPARISON: [facility], CR, XR CHEST 1VW (PORTABLE), 03/20/2017, 17: 34. FINDINGS: Surgical changes and devices: Surgical clips project in the right base of neck. There is a pigtail catheter projecting in the right upper quadrant. Lungs and pleura: Trace left pleural effusion. No right pleural effusion or pneumothorax. There is dense retrocardiac consolidation. Mediastinum: Mediastinal contours appear normal. Heart size is normal. Bones and chest wall: No suspicious bony lesions. Overlying soft tissues appear unremarkable. IMPRESSION: Dense retrocardiac consolidation in keeping with pneumonia or aspiration. Please correlate clinically. Trace left pleural effusion Dictated by: Andre Herring M.D. on 04/05/2017 at 12:33 Approved by: Andre Herring M.D. on 04/05/2017 at 12:34 PROCEDURE: CT CHEST, ABDOMEN AND PELVIS WITH CONTRAST ([id number]) INDICATIONS: SOB, ?pneumonia/effusion, f/u hepatic abscess TECHNIQUE: After the administration of intravenous contrast, 5 mm thick sections acquired from the lung apices to the symphysis. 5 mm coronal and sagittal reformats were performed, with additional 7 mm MIP reformats through the lungs. For radiation dose reduction, the following was used: automated exposure control, adjustment of mA and/or kV according to patient size. COMPARISON: [facility], CT, CT ABD PELVIS W CON, 03/20/2017, 19:02. FINDINGS: Image quality: Excellent. CHEST: Lungs and pleura: Small-moderate bilateral pleural effusions with adjacent atelectasis. Mediastinum: Heart size is enlarged. No pericardial effusion. No mediastinal or hilar adenopathy by size criteria. Thoracic aorta and central pulmonary arteries are normal in size. Esophagus is normal in caliber. No hiatal hernia. Chest wall: No axillary or supraclavicular adenopathy by size criteria. The right lobe of the thyroid is not well-seen. Left lobe unremarkable.. ABDOMEN: Solid organs: There is placement of pigtail catheter drain within the liver. As the prior study there is enlargement of a low collection adjacent to the drain which now measures 5.6 x 5.0 cm, previously 2.2 x 2.3 cm. There is adjacent ill- defined infiltrative edema. Main portal vein appears patent. There is an internal biliary stent as before. Pancreas and spleen grossly unremarkable. No definite adrenal nodule. Bilateral renal cortical thinning. No hydronephrosis. and spleen are normal in size and enhancement. Gallbladder not seen. Biliary system is non dilated. Pancreas enhances normally. No adrenal nodules. Kidneys demonstrate normal size and enhancement, without hydronephrosis. Peritoneum and bowel: Large amount of stool seen throughout the colon. No evidence of bowel obstruction. No free air. No free fluid. Nodes and vessels: No retroperitoneal or mesenteric adenopathy by size criteria. Aorta and inferior vena cava are normal in size. Miscellaneous: No ventral hernias. PELVIS: Genitourinary: Bladder wall thickness is normal. Redemonstration of large left -sided uterine fibroid with central calcification. Miscellaneous: No inguinal hernias or adenopathy. Bones: No suspicious bony lesions. No vertebral body compression fractures. IMPRESSION: Status post placement of hepatic drain, however since the prior study dated 03/20 there is an enlarging intrahepatic fluid collection, suspicious for persistent abscess, just medial to the pigtail tip as measured above. There is persistence adjacent intrahepatic infiltrative edema and fluid. Please correlate clinically. Small to moderate bilateral pleural effusions with adjacent atelectasis. Cardiomegaly. Large uterine fibroid as before. Dictated by: Andre Herring M.D. on 04/05/2017 at 18:39 Approved by: Andre Herring M.D. on 04/05/2017 at 18:55 Cardiac Echo Impressions Echocardiogram Report Name: STEWART UREÑA Graeme e: 02/05/2017 Height: 63 in Hospital Exam Location: [facility] Weight: 90 lb Gender: Female BSA: 1.4 m2 : 1935 Age: 81 yrs BP: 110/54 mmHg Reason For Study: Bacteremia Performed By: Corrie Jeffrey Referring Physician: ADALBERTO KELLEY Interpretation Summary The left ventricle is normal in size. Left ventricular systolic function is normal without focal wall motion abnormalities. The ejection fraction is estimated to be 60-65%. Assessment of diastolic parameters indicates normal left ventricular diastolic function and normal filling pressures. The right ventricle is normal in size and function. The right ventricular systolic pressure is estimated at 34 mmHg assuming a right atrial pressure of 3 mm Hg. The left atrium is mildly dilated. Right atrial size is normal. The aortic valve is trileaflet. The aortic valve opens well. There is no aortic regurgitation. There is very small filamentous strand at the tips of aortic leaflets. This is best seen on parasternal long axis views with inncreased magnification. Differential should include endocarditis or Lambl's excrescence. Given positive blood cultures, OLU is recommended. Other valves do not have any obvious evidence for endocarditis. The aortic root is mildly dilated. The ascending aorta is mildly enlarged. Moderate atherosclerotic plaque(s) in the aortic arch. 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 Patient has had multiple gastrointestinal bleeds requiring weekly transfusions. Just 4-5 days ago patient was at [facility] having to or more abdominal shunts placed to further drain her chronic liver abscesses after presenting to [facility] emergency department with sepsis. She states after being discharged she had been feeling worse than her prior baseline in terms of generalized weakness and feeling unwell. She has been having intermittent epigastric abdominal pain which is typical for her chronic pain. She was transfused with 2 units of blood while at [facility] and transfused 2 units of blood 2 days ago. Patient denies any fever, chest pain, shortness of breath, nausea, vomiting, dysuria or cough. The patient continued to feel poorly and at [facility] she had her O2 sat checked and was found to be 70-80% and her blood pressure was low at less than 100 systolic this morning. Therefore the [facility] called 911 patient was brought to [facility] emergency room. The emergency room she was evaluated by Dr. Alvaro Dahl who found her hemoglobin to be 5.5 and her hematocrit to be only 17.7. A chest x-ray showed dense retrocardiac consolidation in keeping with pneumonia or aspiration. Therefore, a CT scan was ordered and showed "Status post placement of hepatic drain, however since the prior study dated 03/20/17 there is an enlarging intrahepatic fluid collection, suspicious for persistent abscess, just medial to the pigtail tip as measured above. There is persistence adjacent intrahepatic infiltrative edema and fluid. Please correlate clinically. Small to moderate bilateral pleural effusions with adjacent atelectasis. Cardiomegaly. Large uterine fibroid as before." Due to her complicated history and active GI bleeding the patient was admitted to the hospitalist service for further evaluation and treatment. # Gastrointestinal bleed secondary to hereditary hemorrhagic telangiectasia or HHT with acute blood loss anemia, present on admission. Active - Patient transfused 2 units of packed red blood cells as is all she allowed this time. - Check repeat CBC in a.m. and transfuse 2 more units if appropriate. - GI on board. # Fever of 101.7F, present on admission. Patient has not had a fever since that time. - Check blood cultures which are pending - Continue linezolid and ertapenem as at home. - Patient has a history of sepsis secondary to VRE and Klebsiella. - ID consult , appreciate Dr. 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 Active - Patient had recent internal biliary drains placed at [facility]. Films were reviewed by Dr. Sam it appears that the drain or drains need to be readjusted. Her ventral radiology will be contacted. - Patient still has an externalized hepatic drain in place. - IR revision of drainage today # Hypoxia prior to [facility], prior to admission. Currently no hypoxia present time. - This is possibly due to high-output congestive heart failure acute blood loss anemia. - Monitor patient very closely. - Lasix was given after 2 units of packed red blood cells were given to help prevent pulmonary edema and/or pleural effusions. # Severe protein calorie malnutrition, present on admission with a BMI of 17.0 kg/m. Active - We will discuss plans with gastroenterology quality assurance consultant - We will place on full liquid diet for now. # Urinary fibroid mass, which is impinging on the colon resulting in constipation, present on admission. Active - Continue full liquid diet for now - Mineral oil enema given as an option, patient refuses - continue to monitor Disposition: Pending clinical improvement and drain replacement. GI Prophylaxis: Proton Pump Inhibitor VTE Prophylaxis: SCDs VTE Mechanical Devices: Venous Foot Pump Resuscitation Status: DNR/DNI:Do Not Resuscitate/Intubate Time spent 35 mins Manjeet Peck MD Apr 09, 2017 14:27
[2017-04-09 19:27] VITALS: BP 105/68; PULSE 92; RESP 16; O2SAT 95
[2017-04-10] VITALS (12 sets, daily range): BP systolic 93–152; BP diastolic 43–78; PULSE 71–92; RESP 10–18; O2SAT 95–96
--- NOTE | 2017-04-10 04:00 | NUR ---
activity Pt alert and oriented x4, cooperative, uses bedside commode with SBA. IV Dilaudid for abdominal pain, given before HS with good results, pt rested quietly throughout night. Pt is NPO after midnight, will monitor.
[2017-04-10] MEDS: HYDROmorphone 0.5 mg/0.5 mL iSecure Syringe IVPUSH PRN ×5 (04:52→23:49)
[2017-04-10 06:50] LABS: BASOPHILS % (AUTO) 0.6 % (0-3); EOSINOPHILS % (AUTO) 2.1 % (0-5); MONOCYTES % (AUTO) 13.2 % (4-12); Mean Corpuscular Volume 96.6 fL (81-100); NEUTROPHILS % (AUTO) 74.1 % (40-74); Platelet Count 410 bil/L (150-400)
[2017-04-10] MEDS: Polyethylene Glycol (PEG) 17 Gm Powder PO SCH (08:30)
[2017-04-10] MEDS: Ertapenem Inj 1,000 MG in 0.9% Sodium Chloride 50 ML IV SCH (09:00)
[2017-04-10] MEDS: Pantoprazole 20 mg ER24 Tablet PO SCH ×2 (09:00→20:00)
[2017-04-10] MEDS ORDERED: Propofol 10,000 mCg/mL 20 mL Inj ONE (10:26)
[2017-04-10] MEDS ORDERED: 0.9% Sodium Chloride 250 ML ONE (10:41)
--- NOTE | 2017-04-10 10:47 | PCM.PNSURG ---
Subjective Date of Service: Apr 10, 2017 Date of Service: Apr 10, 2017 Visit Information: Reason for Visit Anemia/Pneumonia/Vre Surgery/Surgery Date Post-Op Day # Date of Admission: Apr 05, 2017 at 15:28 Hospital Day # Subjective: Gastroenterology Progress Note No acute events overnight. Patient continues to have some right-sided abdominal pain but this is relieved with periodic doses of Dilaudid. JOSH drain continues to have minimal to no output. Hemoglobin and hematocrit dropped overnight. Patient is agreeable to proceed with EGD. Plan for IR to place new drain tentatively this afternoon otherwise may be deferred to tomorrow due to scheduling. Objective Vital Sign- Last 8 Hours Date Time Temp Pulse Resp B/P Pulse Ox O2 Delivery O2 Flow Rate FiO2 04/10/17 04:39 36.4 81 18 94/43 96 Room Air Intake and Output- Last 8 Hour 04/10/17 Cumulative From/Thru 07:00 04/05/17 11:37 - 04/10/17 06:30 Intake Total 301 ml 3990 ml Output Total 535 ml 4812 ml Balance -234 ml -822 ml Intake Oral 0 ml 2096 ml IV Total 301 ml 1894 ml Output Urine Total 525 ml 4750 ml Drainage Total 10 ml 62 ml # Voids 2 # Bowel Movements 1 General: Alert, Oriented X3, No Acute Distress Neck: Supple Lungs: Clear to Auscultation Heart: Regular Rate/Rhythm Abdomen: Benign, Soft, Other (JOSH drain with minimal bilious fluid present) Extremities: Distal Pulses Palpable, Warm Neuro: Cranial Nerves 2-12 nl Catheters: None Result Diagram: 04/10/1760404/10/17 06 Assessment & Plan Impression Niesha Ford is an 81-year-old female with past medical history significant for HHT with gastric and duodenal telangietasias, history of VRE, and hepatic abscesses thought to be bilomas that were recently stented at [facility] who presents to [facility] ED due to intermittent epigastric abdominal pain and generalized weakness. Found to have a hemoglobin of 5.5 entrance fused 2 units PRBCs with appropriate improvement in hemoglobin. CT of the abdomen showed hepatic stent in place and pigtail drain although this does not seem optimally placed. Also of note on CT patient appears severely constipated likely secondary to her uterine fibroid which is not a new finding. Patient's hemoglobin and hematocrit dropped overnight. Patient is agreeable to proceed with EGD. This is scheduled for approximately [address] Sam. GI recommendations: - Patient declined Mineral oil enema. Continue to encourage enema as CT showed significant constipation and clinical picture points to this as well. - Dr. Joel will attempt to place new hepatic drain today if schedule permits otherwise patient will be scheduled for tomorrow. - EGD planned for today due to drop in hemoglobin and hematocrit. Patient receiving 1 unit of blood. Continue to closely monitor hemoglobin and hematocrit. - No changes to antibiotic therapy made by Dr. Webber. Appreciate his time and recommendations. Patient currently on ertapenem and Linezolid. - Continue to closely monitor patient's temperature. No recent fever for over the last 4 days. - Blood cultures negative. Thank you for involving us in this patient's care. We will continue to follow. Problems: VTE Prophylaxis: SCDs Resuscitation Status: DNR/DNI:Do Not Resuscitate/Intubate GOLD TYSON DO Apr 10, 2017 10:47
--- NOTE | 2017-04-10 12:33 | NUR ---
Blood Orders to transfuse blood. Consent confirmed and in chart. Initiated transfusion at 1100 into midline IV. Infusion continues at this time without any sign of reaction and pt reporting comfort.
[2017-04-10] MEDS ORDERED: Lactated Ringer's 1,000 ML IV ONE (12:59)
--- NOTE | 2017-04-10 13:00 | PCM.HPANE ---
Patient Data Surgeon Admitting Provider:Nelson Centeno MD Attending Provider:Manjeet Peck MD Primary Care Physician:Macy Baird MD Other Provider: Reason for Visit Anemia/Pneumonia/Vre ANEMIA/PNEUMONIA/VRE Ht/WT & BMI Height (Feet): 5 Height (Inches): 2.00 Weight (Kilograms): 42.100 Body Mass Index 17.08 Allergies Coded Allergies: NSAIDS (Non-Steroidal Anti-Inflamma (Unverified Allergy, Intermediate, ) Uncoded Allergies: NSAIDS (Allergy, Intermediate, 04/05/17) Past Anesthesia History Anesthesia History: Denies:: Abnormal Airway, Anesthesia Reactions, Difficult Intubation, Fam Anesthesia Reaction, Fam Malignant Hypertherm, Malignant Hyperthermia Diabetes History Hx Diabetes?: No MRSA MRSA: No Medications Active Scripts Linezolid 600 Mg [id number] Mg PO BID #30 TABLET Prov:Bj Limon DO 02/13/17 Reported Medications Bisacodyl (Dulcolax Rectal)10 Mg Supp.rect10 Mg RC DAILY PRN For Constipation For no BM after MOM 02/04/17 Polyethylene Glycol 3350 (Miralax)17 Gm Powd.pack17 Gm PO DAILY 12/17/16 Ondansetron ODT 4 Mg Tab.rapdis4 Mg PO Q4H PRN For Nausea 12/17/16 Thyroid,Pork ([place] Thyroid)60 Mg Olxodt92 Mg PO DAILY 12/17/[address] 20 Mg Tablet.dr20 Mg PO BID 12/17/16 History History of ENT Problems?: Yes HEENT History: Positive for:: Cataracts (Cataract removal approx. 10yrs ago) Denies:: Abnormal Airway Difficult Intubation Dysphagia Hearing Problem Sinus Problem Denture Type: None Teeth Condition: Tooth Decay Hx of Heart Problems?: Yes Cardiovascular History: Positive for:: Edema (slight pedal edema in both feet) Denies:: AICD Abdominal Aortic Aneurism Atrial Fibrillation Cardiac Surgery Chest Pain Congestive Heart Failure Heart Murmur Hypertension Irregular Heartbeat Pacemaker Rheumatic Fever Thrombophlebitis Valvular Heart Disease Hx of Respiratory Problem?: Yes Respiratory History: Positive for:: Pneumonia (age 13) Denies:: Asthma COPD Chest Surgery Cough Dyspnea Emphysema Hemoptysis Oxygen Administration Pulmonary Embolism Tuberculosis Use of C-PAP Machine Hx Neurologic Problems?: No Neurological History: Denies:: Alzheimer's Disease CVA Dementia Dizziness Headaches Multiple Sclerosis Parkinson's Disease Seizures Hx of GI Problems?: Yes Hx of Problems?: No Genitourinary History: Denies:: HX of Hemodialysis Kidney Stones Urinary Tract Infection HX of Peritoneal Dialysis: No Female Hx: Denies:: Currently Endometriosis Pelvic Inflammatory Problems with Breasts? Skin History: Denies:: History Skin Disorders? Pressure Ulcers Hx Musculoskeletal Problems?: No Musculoskeletal History: Denies:: Back Injury Degenerative Joint Joint Replacement Musculoskeletal Trauma Systemic Lupus Hx of Psycho/Social Problems?: No Psycho Social History: Denies:: Anxiety Bipolar Disorder Hx Depression Suicide Attempt Hx Surgeries?: Yes (Cataract removal, stomach repair in Oct 2016) Hx Any Other Health Problems?: Yes Other History: Positive for:: Hospitalization (infection) Thyroid Disease (partial thyroid removed) Denies:: Cancer Endocrine Disease History Blood Transfusions: Positive for:: Accept Blood Products? Blood Transfusions Denies:: Blood Transfuse Reaction Hx Diabetes: No Hx Alcohol Use: Yes (nothing recently)Hx Substance Use: No Smoking Status: Never Smoker Have You Smoked inLast 12 mo: No Stop/Bang Treated for Sleep Apnea?: No Do You Have a CPAP Machine?: No S-Snoring: Do You Snore Loudly: No T-Tired: feel tired, fatigued: No O-Obsered: Observed not breath: No P-Blood Pressure: treated: No B- Body Mass Index > 35 kg/m2: No A- Age over 50: Yes N- Neck Large Circumference: No G- Gender Male: No SHAREE Total Score: 0 Risk Assessment Category Category 1A: Patient has history of documented sleep apnea, and HAS NOT received any narcotic, sedative or anesthesia administration during this stay. Category 1B: Patient has history of documented sleep apnea, and HAS received any narcotic , sedative or anesthesia administration during this stay Category 2: Patient has SUSPECTED Obstructive Sleep Apnea, and HAS received any narcotic , sedative or anesthesia administration during this stay. Category 3: Patient has SUSPECTED Obstructive Sleep Apnea and HAS NOT received narcotic, sedative or anesthesia administration during this stay. Category 4: Outpatient in Procedural Areas with known sleep apnea or who screen positive for High Risk via the STOP/BANG questionnaire. Exam Exam Vital Signs Vital Signs Date Time Temp Pulse Resp B/P Pulse Ox O2 Delivery O2 Flow Rate FiO2 04/10/17 11:20 36.1 74 93/53 04/10/17 10:50 36.6 92 105/59 General Appearance: Alert, Oriented X3, Cooperative, Moderate Distress, Other ( frail and cachectic) HEENT/AIRWAY: MP 2, Neck Movement (wnl), Mouth Opening (small) Lungs: Clear to Auscultation Heart: Regular Rate/Rhythm Meds/Labs/Diagnostics Admission Meds Current Medications Sodium Chloride (Normal Saline) 250 ml @ ud STK-MED ONCE .ROUTE Last administered on 04/10/17t 10:46; Start 04/10/17 at 10:41; Stop 04/10/17 at 10:42; Status DC Labs Test 04/05/17 14:43 04/06/17 05:45 04/07/17 05:55 04/08/17 06:45 Urine Color Dark yellow (YELLOW) Urine Appearance Clear (CLEAR,HAZY) Urine pH 5.5 (5.0-8.0) Urine Specific Sharon 1.020 (1.003-1.035) Urine Protein Negativemg/dL (NEG,TRACE) Urine Glucose (UA) 100mg/dL (NEGATIVE) Urine Ketones Negativemg/dL (NEGATIVE) Urine Occult Blood Negative (NEGATIVE) Urine Nitrite Negative (NEGATIVE) Urine Bilirubin Negative (NEGATIVE) Urine Urobilinogen 1.0mg/dL (NORMAL) Urine Leukocyte Esterase Negative (NEGATIVE) Urine RBC 0-2/hpf (0-2) Urine WBC 0-5/hpf (0-5) Urine Epithelial Cells Moderate/hpf (NONE-MOD) Urine Crystals None seen (NONE SEEN) Urine Bacteria None/hpf (NONE-FEW) Urine Hyaline Casts None/lpf (NONE) Urine Granular Casts None seen (NONE SEEN) Urine Waxy Casts None seen (NONE SEEN) Urine Red Blood Cell Casts None seen (NONE SEEN) Urine White Blood Cell Casts None seen (NONE SEEN) Urine Mucus None seen (None Seen) Urine Trichomonas None seen (NONE SEEN) Urine Yeast None (NONE SEEN) Urinalysis Comment None Urine Culture Reflexed Not indicated Erythrocyte Sedimentation Rate 34mm/hr (0-40) C-Reactive Protein 7.4mg/dL (0.0-0.5) Procalcitonin 0.11ng/mL (0.00-0.08) Lactic Acid Level 1.3mmol/L (0.4-2.0) Magnesium Level 1.9mg/dL (1.6-2.6) Test 04/09/17 07:20 04/10/17 06:05 Total Bilirubin 0.5mg/dL (0.0-1.2) Aspartate Amino Transf (AST/SGOT) 28U/L (0-50) Alanine Aminotransferase (ALT/SGPT) 20U/L (0-32) Alkaline Phosphatase 576U/L (25-165) Total Protein 4.4g/dL (6.4-8.4) Albumin 2.5g/dL (3.4-5.0) White Blood Count 4.7th/mm3 (3.8-10.1) Red Blood Count 2.33mil/mm3 (3.90-5.20) Hemoglobin 7.0g/dL (12.0-15.6) Hematocrit 22.5% (35.0-46.0) Mean Corpuscular Volume 96.6fL (81-100) Mean Corpuscular Hemoglobin 30.0pg (27.0-35.0) Mean Corpuscular Hemoglobin Concent 31.1% (32.0-37.0) Red Cell Distribution Width 17.4% (12.3-15.4) Platelet Count 410bil/L (150-400) Neutrophils (%) (Auto) 74.1% (40-74) Lymphocytes (%) (Auto) 10.0% (14-46) Monocytes (%) (Auto) 13.2% (4-12) Eosinophils (%) (Auto) 2.1% (0-5) Basophils (%) (Auto) 0.6% (0-3) Sodium Level 136mEq/L (134-144) Potassium Level 4.7mEq/L (3.5-5.2) Chloride Level 101mEq/L (97-108) Carbon Dioxide Level 24mmol/L (18-29) Blood Urea Nitrogen 10mg/dL (8-27) Creatinine 0.31mg/dL (0.57-1.00) Estimat Glomerular Filtration Rate 293mL/min (>59) Glucose Level 85mg/dL (60-99) Calcium Level 8.0mg/dL (8.5-10.1) Plan Impression Patient chart reviewed, patient interviewed and anesthestic plan with risks, benefits, and alternatives discussed, and informed consent obtained. NPO per Anesth. Guidelines: Yes ASA Physical Status: ASA3 Severe Disease Anesthetic Plan: MAC Bene/Risks/Altern/Consents: Yes HP Complete Prior to Induction: Yes Bladimir Gann MD Apr 10, 2017 13:00
--- NOTE | 2017-04-10 13:30 | NUR ---
Off Unit to Endoscopy Pt. off unit to endoscopy. 1 unit PRBC completed prior to transfer. Will administered 2nd unit when pt. returns.
[2017-04-10 13:43] LABS: INR 1.02 ratio
--- NOTE | 2017-04-10 13:43 | NUR ---
Social Work-readiness for discharge: Data:EMR reviewed. Pt is on day 5 of hospitalization for anemia per H&P. Pt is not medically stable anticipate 1-2 more days. Pt has been residing at [facility] and plans to return there at discharge. Pt to have drains fixed and have a blood transfusion. [facility] able to accept pt back when medically stable. Insurance authorization will need to be obtained. Paperwork in the chart. SW will continue to follow. Assessment:Pt who has been at [facility]. Plan:Pt to discharge back to [facility] when medically stable with Dr. Bautista to follow. Paperwork in the chart. SW will continue to follow. SOHAN Gayle
--- NOTE | 2017-04-10 14:39 | ENDO ---
[address] [address] ENDOSCOPY PROCEDURE PATIENT: STEWART UREÑA : 1935 MR#: [id number] ADMIT: 04/05/2017 JOB ID: [id number] DATE OF SERVICE: 03/10/2017 PRIMARY PROVIDER: Macy Baird MD PROCEDURE: Esophagogastroduodenoscopy. 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 Hemoglobin dropped again overnight and repeat EGD was pursued today to identify any potential actively bleeding lesion. EQUIPMENT: GIF H 180 J. SEDATION: Monitored anesthesia as provided by Dr. Lukasz Gann. COMPLICATIONS: None identified. PROCEDURE INFORMATION: After the risks and benefits were explained, written and verbal informed consent was obtained. The patient was brought into the endoscopy suite and placed into the left lateral decubitus position. Sedation was achieved as above. The scope was introduced into the mouth through the bite block and advanced to the second portion of the duodenum. The scope was slowly withdrawn to carefully examine the mucosa for any defects or lesions. Retroflexed views were accomplished in the stomach, the stomach was decompressed, and the scope removed from the patient, who tolerated the procedure well. FINDINGS: 1. Duodenum: There were some scattered telangiectasias throughout the bulb and second portion. None appeared to be actively bleeding. There was an acceptable amount of bile seen throughout the second portion. I could not angle the scope to properly visualize the stent. 2. Stomach: A considerable amount of time was spent within the gastric lumen, irrigating and suctioning. When we first arrived there was some evidence of blood and clot material present. However, upon a complete cleansing of the mucosa with the irrigation, I did not identify the culprit bleeding lesion among the too numerous to count that were present. Historically some of these more readily bleeding lesions spontaneously hemorrhaged with irrigation; however, with aggressive irrigation of even the larger ones, no significant bleeding or oozing was identified. We therefore did not start to APC at random. I did not appreciate any ulcers or mass lesions including retroflexed views of the LES. 3. Esophagus: The squamocolumnar junction correlated with the top of the gastric folds. The GEJ was at about 37 cm from the incisors. No acute erosive changes. No strictures. No mass lesions. No obstructing pathology identified. There were a couple of nonbleeding subtle telangiectasias in the distal esophagus. ENDOSCOPIC DIAGNOSES: 1. 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 2. No actively bleeding lesion identified during EGD. RECOMMENDATIONS: 1. Continue close clinical monitoring. 2. Transfusion as needed. 3. Interventional Radiology to manipulate and/or place a 2nd drain for the refractory infected biloma. This may be this afternoon or at latest tomorrow. 4. The patient can advance diet as soon as disposition on her potential procedure in Radiology is determined.
--- NOTE | 2017-04-10 18:01 | NUR ---
[facility] Patient to [facility] bed 3 at 1650 post drain placement in CT with anesthesiologist delivering conscious sedation. Patient alert and oriented. Son at bedside. Transferred back to room 3021 at 1745. report to receiving RN.
--- NOTE | 2017-04-10 18:23 | NUR ---
Return to Room 3021 Pt. returned to room. Alert and oriented x 3, vitals stable. Currently sitting up in bed. Frequent rounding being performed.
--- NOTE | 2017-04-10 19:35 | NUR ---
2nd Unit PRBC Infusion began at 1900 via midline. Pt. tolerating well. Vitals stable. Currently resting in bed. Frequent rounding being performed.
--- NOTE | 2017-04-10 20:12 | PROG NOTE ---
[address] [address] PROGRESS NOTE PATIENT: STEWART UREÑA : 1935 MR#: [id number] ADMIT: 04/05/2017 JOB ID: [id number] DATE: 04/10/2017 INFECTIOUS DISEASE FOLLOWUP NOTE: REASON FOR FOLLOWUP: Infected biloma/liver abscess. INTERVAL HISTORY: The patient had a busy day today. A second biliary drain was placed into her biloma/liver abscess. She also underwent upper endoscopy because her hematocrit continues to drop rapidly. I reviewed the report of the upper endoscopy which was done by Dr. Sam but there was no evidence of active bleeding, though there were innumerable telangiectasias seen. The patient tells me she has had no fevers, no chills. No shortness of breath. She had some minimal discomfort when the second hepatic drain was inserted but otherwise she feels about the same. PHYSICAL EXAMINATION: Reveals a pale woman. No acute distress. Temp 36.9, pulse 71, respiratory rate 16, blood pressure 144/64, saturating well on room air. Examination of the eyes reveals very pale conjunctivae and mucous membranes. Lungs are basically clear, with poor excursion. Abdomen is now notable for the presence of a 2nd drain which has some scant bloody fluid in it. No focal tenderness is present in the abdomen. LABORATORIES: Include white count 4700, platelet count 410,000. Creatinine 0.31. Alk phos yesterday was 576, not repeated today. I have spoken to both people in Interventional Radiology as well as in the Micro Lab to make absolutely certain the specimens arrived there today from the repeat aspirate and puncture of the biloma/liver abscess and those specimens are in Micro and awaiting Gram stain and culture. 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 She is now status post placement of a second external drain and already has internal stents in place. RECOMMENDATIONS: 1. Will continue with these antibiotics. 2. We await the Gram stain and culture from the repeat aspirate. Thank you very much.
--- NOTE | 2017-04-10 20:45 | PCM.PNMED ---
Subjective Date of Service Apr 10, 2017 Subjective Patient seen and examined today. No complaints. Vitals stable. Low Hgb noted. Exam Vital Signs Vital Sign - Last Date Time Temp Pulse Resp B/P Pulse Ox O2 Delivery O2 Flow Rate FiO2 04/10/17 20:04 36.8 86 18 125/68 96 Room Air 04/05/17 11:37 2 Intake and Output 04/09/17 04/09/17 04/10/17 Cumulative From/Thru 15:00 23:00 07:00 04/05/17 11:37 - 04/10/17 06:30 Intake Total 150 ml 301 ml 3990 ml Output Total 350 ml 535 ml 4812 ml Balance -200 ml -234 ml -822 ml Intake Oral 150 ml 0 ml 2096 ml IV Total 301 ml 1894 ml Output Urine Total 350 ml 525 ml 4750 ml Drainage Total 10 ml 62 ml # Voids 2 # Bowel Movements 0 1 Exam General: Patient is cachectic. She is awake and alert and articulate. Chest: Is clear to auscultation and percussion. There are no rales, rhonchi, wheezes or rubs. Heart: Rate, rhythm is regular. There is no murmur, rub or gallop. Abdomen: Good bowel sounds are present. Abdomen is soft, nontender, no organomegaly or masses were appreciated. There is an externalized hepatic drain present with minimal bile green drainage in the drain bag. Extremities: Are symmetrical and well perfused. There is less edema, which was difficult to detect yesterday, however it is clearly evident that patient had edema yesterday which is gone today after blood transfusion and Lasix. There is no cellulitis, no rash. Psychiatric: Patients mood is calm and shows no sign of agitation. Lab and Diagnostics Result Diagram: 04/10/17 0604/10/17 06 Microbiology Urinalysis is unremarkable and culture is not indicated Blood cultures are pending X-Rays, CTs and MRIs PROCEDURE: X-RAY CHEST ONE VIEW, PORTABLE ([id number]) INDICATIONS: hypoxia TECHNIQUE: One view of the chest was acquired. COMPARISON: [facility], CR, XR CHEST 1VW (PORTABLE), 03/20/2017, 17: 34. FINDINGS: Surgical changes and devices: Surgical clips project in the right base of neck. There is a pigtail catheter projecting in the right upper quadrant. Lungs and pleura: Trace left pleural effusion. No right pleural effusion or pneumothorax. There is dense retrocardiac consolidation. Mediastinum: Mediastinal contours appear normal. Heart size is normal. Bones and chest wall: No suspicious bony lesions. Overlying soft tissues appear unremarkable. IMPRESSION: Dense retrocardiac consolidation in keeping with pneumonia or aspiration. Please correlate clinically. Trace left pleural effusion Dictated by: Andre Herring M.D. on 04/05/2017 at 12:33 Approved by: Andre Herring M.D. on 04/05/2017 at 12:34 PROCEDURE: CT CHEST, ABDOMEN AND PELVIS WITH CONTRAST ([id number]) INDICATIONS: SOB, ?pneumonia/effusion, f/u hepatic abscess TECHNIQUE: After the administration of intravenous contrast, 5 mm thick sections acquired from the lung apices to the symphysis. 5 mm coronal and sagittal reformats were performed, with additional 7 mm MIP reformats through the lungs. For radiation dose reduction, the following was used: automated exposure control, adjustment of mA and/or kV according to patient size. COMPARISON: [facility], CT, CT ABD PELVIS W CON, 03/20/2017, 19:02. FINDINGS: Image quality: Excellent. CHEST: Lungs and pleura: Small-moderate bilateral pleural effusions with adjacent atelectasis. Mediastinum: Heart size is enlarged. No pericardial effusion. No mediastinal or hilar adenopathy by size criteria. Thoracic aorta and central pulmonary arteries are normal in size. Esophagus is normal in caliber. No hiatal hernia. Chest wall: No axillary or supraclavicular adenopathy by size criteria. The right lobe of the thyroid is not well-seen. Left lobe unremarkable.. ABDOMEN: Solid organs: There is placement of pigtail catheter drain within the liver. As the prior study there is enlargement of a low collection adjacent to the drain which now measures 5.6 x 5.0 cm, previously 2.2 x 2.3 cm. There is adjacent ill- defined infiltrative edema. Main portal vein appears patent. There is an internal biliary stent as before. Pancreas and spleen grossly unremarkable. No definite adrenal nodule. Bilateral renal cortical thinning. No hydronephrosis. and spleen are normal in size and enhancement. Gallbladder not seen. Biliary system is non dilated. Pancreas enhances normally. No adrenal nodules. Kidneys demonstrate normal size and enhancement, without hydronephrosis. Peritoneum and bowel: Large amount of stool seen throughout the colon. No evidence of bowel obstruction. No free air. No free fluid. Nodes and vessels: No retroperitoneal or mesenteric adenopathy by size criteria. Aorta and inferior vena cava are normal in size. Miscellaneous: No ventral hernias. PELVIS: Genitourinary: Bladder wall thickness is normal. Redemonstration of large left -sided uterine fibroid with central calcification. Miscellaneous: No inguinal hernias or adenopathy. Bones: No suspicious bony lesions. No vertebral body compression fractures. IMPRESSION: Status post placement of hepatic drain, however since the prior study dated 03/20 there is an enlarging intrahepatic fluid collection, suspicious for persistent abscess, just medial to the pigtail tip as measured above. There is persistence adjacent intrahepatic infiltrative edema and fluid. Please correlate clinically. Small to moderate bilateral pleural effusions with adjacent atelectasis. Cardiomegaly. Large uterine fibroid as before. Dictated by: Andre Herring M.D. on 04/05/2017 at 18:39 Approved by: Andre Herring M.D. on 04/05/2017 at 18:55 Cardiac Echo Impressions Echocardiogram Report Name: STEWART UREÑA Graeme e: 02/05/2017 Height: 63 in Hospital Exam Location: [facility] Weight: 90 lb Gender: Female BSA: 1.4 m2 : 1935 Age: 81 yrs BP: 110/54 mmHg Reason For Study: Bacteremia Performed By: Corrie Jeffrey Referring Physician: ADALBERTO KELLEY Interpretation Summary The left ventricle is normal in size. Left ventricular systolic function is normal without focal wall motion abnormalities. The ejection fraction is estimated to be 60-65%. Assessment of diastolic parameters indicates normal left ventricular diastolic function and normal filling pressures. The right ventricle is normal in size and function. The right ventricular systolic pressure is estimated at 34 mmHg assuming a right atrial pressure of 3 mm Hg. The left atrium is mildly dilated. Right atrial size is normal. The aortic valve is trileaflet. The aortic valve opens well. There is no aortic regurgitation. There is very small filamentous strand at the tips of aortic leaflets. This is best seen on parasternal long axis views with inncreased magnification. Differential should include endocarditis or Lambl's excrescence. Given positive blood cultures, OLU is recommended. Other valves do not have any obvious evidence for endocarditis. The aortic root is mildly dilated. The ascending aorta is mildly enlarged. Moderate atherosclerotic plaque(s) in the aortic arch. 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 Patient has had multiple gastrointestinal bleeds requiring weekly transfusions. Just 4-5 days ago patient was at [facility] having to or more abdominal shunts placed to further drain her chronic liver abscesses after presenting to [facility] emergency department with sepsis. She states after being discharged she had been feeling worse than her prior baseline in terms of generalized weakness and feeling unwell. She has been having intermittent epigastric abdominal pain which is typical for her chronic pain. She was transfused with 2 units of blood while at [facility] and transfused 2 units of blood 2 days ago. Patient denies any fever, chest pain, shortness of breath, nausea, vomiting, dysuria or cough. The patient continued to feel poorly and at [facility] she had her O2 sat checked and was found to be 70-80% and her blood pressure was low at less than 100 systolic this morning. Therefore the [facility] called 911 patient was brought to [facility] emergency room. The emergency room she was evaluated by Dr. Alvaro Dahl who found her hemoglobin to be 5.5 and her hematocrit to be only 17.7. A chest x-ray showed dense retrocardiac consolidation in keeping with pneumonia or aspiration. Therefore, a CT scan was ordered and showed "Status post placement of hepatic drain, however since the prior study dated 03/20/17 there is an enlarging intrahepatic fluid collection, suspicious for persistent abscess, just medial to the pigtail tip as measured above. There is persistence adjacent intrahepatic infiltrative edema and fluid. Please correlate clinically. Small to moderate bilateral pleural effusions with adjacent atelectasis. Cardiomegaly. Large uterine fibroid as before." Due to her complicated history and active GI bleeding the patient was admitted to the hospitalist service for further evaluation and treatment. # Gastrointestinal bleed secondary to hereditary hemorrhagic telangiectasia or HHT with acute blood loss anemia, present on admission. Active - Patient transfused 2 units of packed red blood cells today as her hgb had trended down - Endoscopy done today, no signs of active bleeding, continue monitoring - GI on board. # Fever of 101.7F, present on admission. Patient has not had a fever since that time. - Check blood cultures which are pending - Continue linezolid and ertapenem as at home. - Patient has a history of sepsis secondary to VRE and Klebsiella. - ID consult , appreciate Dr. 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 Active - Patient had recent internal biliary drains placed at [facility]. Films were reviewed by Dr. Sam it appears that the drain or drains need to be readjusted. Her ventral radiology will be contacted. - Patient still has an externalized hepatic drain in place. - IR revision of drainage today # Hypoxia prior to admission at the longterm [facility], prior to admission. Currently no hypoxia present time. - This is possibly due to high-output congestive heart failure acute blood loss anemia. - Monitor patient very closely. - Lasix was given after 2 units of packed red blood cells were given to help prevent pulmonary edema and/or pleural effusions. # Severe protein calorie malnutrition, present on admission with a BMI of 17.0 kg/m. Active - We will discuss plans with gastroenterology independent beauty consultant - We will place on full liquid diet for now. # Urinary fibroid mass, which is impinging on the colon resulting in constipation, present on admission. Active - Continue full liquid diet for now - Mineral oil enema given as an option, patient refuses - continue to monitor Disposition: Pending clinical improvement and drain replacement. GI Prophylaxis: Proton Pump Inhibitor VTE Prophylaxis: SCDs VTE Mechanical Devices: Intermittant Pneumatic CD, Venous Foot Pump Resuscitation Status: DNR/DNI:Do Not Resuscitate/Intubate Time spent 45 mins Manjeet Peck MD Apr 10, 2017 20:45
--- NOTE | 2017-04-11 03:14 | NUR ---
pain Pt alert and oriented for the shift, up to bedside commode x3 this evening. Pt's older drain, draining green fluid, new drain, draining serosanguineous fluid, both drains patent. Dilaudid given for pain with good results, pt moving about bed and to commode with ease.
[2017-04-11] MEDS: HYDROmorphone 0.5 mg/0.5 mL iSecure Syringe IVPUSH PRN ×5 (04:59→22:59)
[2017-04-11 06:03] VITALS: BP 109/72; PULSE 68; RESP 18; O2SAT 96
[2017-04-11 06:55] LABS: BASOPHILS % (AUTO) 0.6 % (0-3); EOSINOPHILS % (AUTO) 1.3 % (0-5); MONOCYTES % (AUTO) 14.7 % (4-12); Mean Corpuscular Hemoglobin 29.9 pg (27.0-35.0); Mean Corpuscular Volume 90.9 fL (81-100); NEUTROPHILS % (AUTO) 71.2 % (40-74); Platelet Count 371 bil/L (150-400)
[2017-04-11] MEDS: Lactated Ringer's 1,000 ML IV SCH ×4 (07:16→23:20)
[2017-04-11] MEDS ORDERED: 0.9% Sodium Chloride 250 ML ONE (08:58)
[2017-04-11] MEDS: Polyethylene Glycol (PEG) 17 Gm Powder PO SCH (09:08)
[2017-04-11] MEDS: Pantoprazole 20 mg ER24 Tablet PO SCH ×2 (09:08→20:29)
[2017-04-11] MEDS: Ertapenem Inj 1,000 MG in 0.9% Sodium Chloride 50 ML IV SCH (09:08)
--- NOTE | 2017-04-11 10:13 | DRSVH ---
PROCEDURE: CT ABCESS DRAIN PERITONEAL INDICATIONS: CT guided abscess drain COMPARISON: [facility], CT, CT ABCESS DRAIN PERITONEAL, 12/17/2016, 13:58. Technique: 1. Sedation provided by the anesthesiology service. 2. CT guided abscess drain. The risks and the benefits of the procedure were discussed with the patient and her son, consent was obtained, and placed on the chart. The patient was placed in a supine position on the CT table. The a ppropriate area was prepped and draped in the usual sterile fashion. 1% lidocaine was used to anesthe tize the skin over the area of interest. Under CT guidance, an 18 gauge Chiba needle was advanced int o the hepatic fluid collection. The inner stylette was removed, and an Amplatz wire was advanced into the fluid collection. The needle was removed, and an 8 English locking pigtail drain was advanced ove r the wire into the fluid collection and secured in place at the skin. 55 cc of turbid bilious fluid were aspirated and sent to the laboratory for evaluation. The patient tolerated the procedure well. FINDINGS: Initial CT demonstrates a large fluid collection. A small amount of gas is present in this collection in addition to pneumobilia within the left hepatic lobe. IMPRESSION: Successful placement of a CT-guided drain placement within a large fluid and gas collect ion within the right hepatic lobe. Dictated by: Sadia Joel M.D. on 04/11/2017 at 10:08 Approved by: Sadia Joel M.D. on 04/11/2017 at 10:11
--- NOTE | 2017-04-11 10:19 | PCM.PNMED ---
Subjective Date of Service Apr 11, 2017 Subjective Patient seen and examined today . She feels good. Says she is much more comfortable now with the drain draining well. Vitals stable. Exam Vital Signs Vital Sign - Last Date Time Temp Pulse Resp B/P Pulse Ox O2 Delivery O2 Flow Rate FiO2 04/11/17 06:03 36.2 68 18 109/72 96 Room Air 04/05/17 11:37 2 Intake and Output 04/10/17 04/10/17 04/11/17 Cumulative From/Thru 15:00 23:00 07:00 04/05/17 11:37 - 04/11/17 06:38 Intake Total 554 ml 200 ml 180 ml 4924 ml Output Total 275 ml 700 ml 5787 ml Balance 554 ml -75 ml -520 ml -863 ml Intake Oral 200 ml 180 ml 2476 ml IV Total 250 ml 2144 ml Packed Cells 304 ml 304 ml Output Urine Total 275 ml 700 ml 5725 ml Drainage Total 62 ml # Voids 2 # Bowel Movements 1 Exam General: Patient is cachectic. She is awake and alert and articulate. Chest: Is clear to auscultation and percussion. There are no rales, rhonchi, wheezes or rubs. Heart: Rate, rhythm is regular. There is no murmur, rub or gallop. Abdomen: Good bowel sounds are present. Abdomen is soft, nontender, no organomegaly or masses were appreciated. The new drain working well. Extremities: Are symmetrical and well perfused. There is less edema, which was difficult to detect yesterday, however it is clearly evident that patient had edema yesterday which is gone today after blood transfusion and Lasix. There is no cellulitis, no rash. Psychiatric: Patients mood is calm and shows no sign of agitation. Lab and Diagnostics Result Diagram: 04/11/17 0620 04/11/17 0620 Microbiology Urinalysis is unremarkable and culture is not indicated Blood cultures are pending X-Rays, CTs and MRIs PROCEDURE: X-RAY CHEST ONE VIEW, PORTABLE ([id number]) INDICATIONS: hypoxia TECHNIQUE: One view of the chest was acquired. COMPARISON: [facility], CR, XR CHEST 1VW (PORTABLE), 03/20/2017, 17: 34. FINDINGS: Surgical changes and devices: Surgical clips project in the right base of neck. There is a pigtail catheter projecting in the right upper quadrant. Lungs and pleura: Trace left pleural effusion. No right pleural effusion or pneumothorax. There is dense retrocardiac consolidation. Mediastinum: Mediastinal contours appear normal. Heart size is normal. Bones and chest wall: No suspicious bony lesions. Overlying soft tissues appear unremarkable. IMPRESSION: Dense retrocardiac consolidation in keeping with pneumonia or aspiration. Please correlate clinically. Trace left pleural effusion Dictated by: Andre Herring M.D. on 04/05/2017 at 12:33 Approved by: Andre Herring M.D. on 04/05/2017 at 12:34 PROCEDURE: CT CHEST, ABDOMEN AND PELVIS WITH CONTRAST ([id number]) INDICATIONS: SOB, ?pneumonia/effusion, f/u hepatic abscess TECHNIQUE: After the administration of intravenous contrast, 5 mm thick sections acquired from the lung apices to the symphysis. 5 mm coronal and sagittal reformats were performed, with additional 7 mm MIP reformats through the lungs. For radiation dose reduction, the following was used: automated exposure control, adjustment of mA and/or kV according to patient size. COMPARISON: [facility], CT, CT ABD PELVIS W CON, 03/20/2017, 19:02. FINDINGS: Image quality: Excellent. CHEST: Lungs and pleura: Small-moderate bilateral pleural effusions with adjacent atelectasis. Mediastinum: Heart size is enlarged. No pericardial effusion. No mediastinal or hilar adenopathy by size criteria. Thoracic aorta and central pulmonary arteries are normal in size. Esophagus is normal in caliber. No hiatal hernia. Chest wall: No axillary or supraclavicular adenopathy by size criteria. The right lobe of the thyroid is not well-seen. Left lobe unremarkable.. ABDOMEN: Solid organs: There is placement of pigtail catheter drain within the liver. As the prior study there is enlargement of a low collection adjacent to the drain which now measures 5.6 x 5.0 cm, previously 2.2 x 2.3 cm. There is adjacent ill- defined infiltrative edema. Main portal vein appears patent. There is an internal biliary stent as before. Pancreas and spleen grossly unremarkable. No definite adrenal nodule. Bilateral renal cortical thinning. No hydronephrosis. and spleen are normal in size and enhancement. Gallbladder not seen. Biliary system is non dilated. Pancreas enhances normally. No adrenal nodules. Kidneys demonstrate normal size and enhancement, without hydronephrosis. Peritoneum and bowel: Large amount of stool seen throughout the colon. No evidence of bowel obstruction. No free air. No free fluid. Nodes and vessels: No retroperitoneal or mesenteric adenopathy by size criteria. Aorta and inferior vena cava are normal in size. Miscellaneous: No ventral hernias. PELVIS: Genitourinary: Bladder wall thickness is normal. Redemonstration of large left -sided uterine fibroid with central calcification. Miscellaneous: No inguinal hernias or adenopathy. Bones: No suspicious bony lesions. No vertebral body compression fractures. IMPRESSION: Status post placement of hepatic drain, however since the prior study dated 03/20 there is an enlarging intrahepatic fluid collection, suspicious for persistent abscess, just medial to the pigtail tip as measured above. There is persistence adjacent intrahepatic infiltrative edema and fluid. Please correlate clinically. Small to moderate bilateral pleural effusions with adjacent atelectasis. Cardiomegaly. Large uterine fibroid as before. Dictated by: Andre Herring M.D. on 04/05/2017 at 18:39 Approved by: Andre Herring M.D. on 04/05/2017 at 18:55 Cardiac Echo Impressions Echocardiogram Report Name: STEWART UREÑA Graeme e: 02/05/2017 Height: 63 in Hospital Exam Location: [facility] Weight: 90 lb Gender: Female BSA: 1.4 m2 : 1935 Age: 81 yrs BP: 110/54 mmHg Reason For Study: Bacteremia Performed By: Corrie Jeffrey Referring Physician: ADALBERTO KELLEY Interpretation Summary The left ventricle is normal in size. Left ventricular systolic function is normal without focal wall motion abnormalities. The ejection fraction is estimated to be 60-65%. Assessment of diastolic parameters indicates normal left ventricular diastolic function and normal filling pressures. The right ventricle is normal in size and function. The right ventricular systolic pressure is estimated at 34 mmHg assuming a right atrial pressure of 3 mm Hg. The left atrium is mildly dilated. Right atrial size is normal. The aortic valve is trileaflet. The aortic valve opens well. There is no aortic regurgitation. There is very small filamentous strand at the tips of aortic leaflets. This is best seen on parasternal long axis views with inncreased magnification. Differential should include endocarditis or Lambl's excrescence. Given positive blood cultures, OLU is recommended. Other valves do not have any obvious evidence for endocarditis. The aortic root is mildly dilated. The ascending aorta is mildly enlarged. Moderate atherosclerotic plaque(s) in the aortic arch. Additional Diagnostics PROCEDURE: CT ABCESS DRAIN PERITONEAL INDICATIONS: CT guided abscess drain COMPARISON: [facility], CT, CT ABCESS DRAIN PERITONEAL, 12/17/2016, 13:58. Technique: 1. Sedation provided by the anesthesiology service. 2. CT guided abscess drain. The risks and the benefits of the procedure were discussed with the patient and her son, consent was obtained, and placed on the chart. The patient was placed in a supine position on the CT table. The appropriate area was prepped and draped in the usual sterile fashion. 1% lidocaine was used to anesthetize the skin over the area of interest. Under CT guidance, an 18 gauge Chiba needle was advanced into the hepatic fluid collection. The inner stylette was removed, and an Amplatz wire was advanced into the fluid collection. The needle was removed, and an 8 Guamanian locking pigtail drain was advanced over the wire into the fluid collection and secured in place at the skin. 55 cc of turbid bilious fluid were aspirated and sent to the laboratory for evaluation. The patient tolerated the procedure well. FINDINGS: Initial CT demonstrates a large fluid collection. A small amount of gas is present in this collection in addition to pneumobilia within the left hepatic lobe. IMPRESSION: Successful placement of a CT-guided drain placement within a large fluid and gas collection within the right hepatic lobe. 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 and on linezolid and ertapenem daily. 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 Patient has had multiple gastrointestinal bleeds requiring weekly transfusions. Just 4-5 days ago patient was at [facility] having to or more abdominal shunts placed to further drain her chronic liver abscesses after presenting to [facility] emergency department with sepsis. She states after being discharged she had been feeling worse than her prior baseline in terms of generalized weakness and feeling unwell. She has been having intermittent epigastric abdominal pain which is typical for her chronic pain. She was transfused with 2 units of blood while at [facility] and transfused 2 units of blood 2 days ago. Patient denies any fever, chest pain, shortness of breath, nausea, vomiting, dysuria or cough. The patient continued to feel poorly and at [facility] she had her O2 sat checked and was found to be 70-80% and her blood pressure was low at less than 100 systolic this morning. Therefore the [facility] called 911 patient was brought to [facility] emergency room. The emergency room she was evaluated by Dr. Alvaro Dahl who found her hemoglobin to be 5.5 and her hematocrit to be only 17.7. A chest x-ray showed dense retrocardiac consolidation in keeping with pneumonia or aspiration. Therefore, a CT scan was ordered and showed "Status post placement of hepatic drain, however since the prior study dated 03/20/17 there is an enlarging intrahepatic fluid collection, suspicious for persistent abscess, just medial to the pigtail tip as measured above. There is persistence adjacent intrahepatic infiltrative edema and fluid. Please correlate clinically. Small to moderate bilateral pleural effusions with adjacent atelectasis. Cardiomegaly. Large uterine fibroid as before." Due to her complicated history and active GI bleeding the patient was admitted to the hospitalist service for further evaluation and treatment. # Gastrointestinal bleed secondary to hereditary hemorrhagic telangiectasia or HHT with acute blood loss anemia, present on admission. Active - Patient transfused 2 units of packed red blood cells yesterday as her hgb had trended down, Hgb >9.0 today - Endoscopy done yesterday, no signs of active bleeding, continue monitoring - GI on board. 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 Active - Patient had recent internal biliary drains placed at [facility]. Films were reviewed by Dr. Sam it appears that the drain or drains need to be readjusted. Her ventral radiology will be contacted. - Patient still has an externalized hepatic drain in place. - IR drain insertion yesterday, procedure went well as noted above # Fever of 101.7F, present on admission. Patient has not had a fever since that time. - Check blood cultures which are pending - Continue linezolid and ertapenem as at home. - Patient has a history of sepsis secondary to VRE and Klebsiella. - ID consult , appreciate Dr. Kelley's input # Hypoxia prior to admission at the [facility] facility, prior to admission. Resolved - This is possibly due to high-output congestive heart failure acute blood loss anemia. - Monitor patient very closely. # Severe protein calorie malnutrition, present on admission with a BMI of 17.0 kg/m. Active - We will discuss plans with gastroenterology fashion consultant selling - We will place on full liquid diet for now. # Urinary fibroid mass, which is impinging on the colon resulting in constipation, present on admission. Active - Continue full liquid diet for now - Mineral oil enema given as an option, patient refuses - continue to monitor Disposition: Pending clinical improvement. PT today GI Prophylaxis: Proton Pump Inhibitor VTE Prophylaxis: SCDs VTE Mechanical Devices: Intermittant Pneumatic CD, Venous Foot Pump Resuscitation Status: DNR/DNI:Do Not Resuscitate/Intubate Time spent 35 mins Manjeet Peck MD Apr 11, 2017 10:19
--- NOTE | 2017-04-11 10:39 | PCM.PNSURG ---
Subjective Date of Service: Apr 11, 2017 Date of Service: Apr 11, 2017 Visit Information: Reason for Visit Anemia/Pneumonia/Vre Surgery/Surgery Date Post-Op Day # Date of Admission: Apr 05, 2017 at 15:28 Hospital Day # Subjective: Gastroenterology Progress Note No acute events overnight. Yesterday patient did have a full day as she had an EGD to evaluate for any treatable telectansias and additional JOSH drain placed in her hepatic abscess. Patient tolerated both of these procedures well without complication. EGD showed no treatable lesion. This morning patient's new JOSH drain is having significant output of serosanguineous colored liquid. Her old JOSH drain has minimal bilious fluid. Patient states she is feeling quite well this morning and is sitting up in bed eating breakfast without issue. She denies any significant pain following the procedure and nothing above her baseline discomfort. Yesterday she did receive 2 units of PRBCs. Objective Vital Sign- Last 8 Hours Date Time Temp Pulse Resp B/P Pulse Ox O2 Delivery O2 Flow Rate FiO2 04/11/17 06:03 36.2 68 18 109/72 96 Room Air Intake and Output- Last 8 Hour 04/11/17 Cumulative From/Thru 07:00 04/05/17 11:37 - 04/11/17 06:38 Intake Total 180 ml 4924 ml Output Total 700 ml 5787 ml Balance -520 ml -863 ml Intake Oral 180 ml 2476 ml IV Total 2144 ml Packed Cells 304 ml Output Urine Total 700 ml 5725 ml Drainage Total 62 ml # Voids 2 # Bowel Movements 1 General: Alert, Oriented X3, No Acute Distress Neck: Supple Lungs: Clear to Auscultation Heart: Exam Unremarkable Abdomen: Appropriately tender (mildly tender around JOSH drain), Other ([address] in the right lower quadrant. 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 Found to have a hemoglobin of 5.5 entrance fused 2 units PRBCs with appropriate improvement in hemoglobin. CT of the abdomen showed hepatic stent in place and pigtail drain although this does not seem optimally placed. Also of note on CT patient appears severely constipated likely secondary to her uterine fibroid which is not a new finding. Patient received 2 units PRBCs yesterday and hemoglobin and hematocrit have responded appropriately and remained stable overnight. Patient has been EGD yesterday which revealed no treatable lesions. She also had a second JOSH drain placed in her hepatic abscess. She tolerated this procedure well and drain has been draining serosanguineous liquid. Abdominal x-ray completed this morning shows appropriate placement. GI recommendations: - Patient declined Mineral oil enema. Continue to encourage enema as CT showed significant constipation and clinical picture points to this as well. - Second JOSH drain placed with no complication and draining serosanguineous liquids. We will continue to monitor output. - EGD with no treatable lesions seen completed and on 04/10/2017. - No changes to antibiotic therapy made by Dr. Webber. Fluid from abscess was sent for culture. Patient currently on ertapenem and Linezolid. - Continue to closely monitor patient's temperature. No recent fever for over the last 4 days. - Blood cultures negative. - Continue to monitor hemoglobin and hematocrit. Transfuse as necessary. Thank you for involving us in this patient's care. We will continue to follow. Problems: VTE Prophylaxis: SCDs Resuscitation Status: DNR/DNI:Do Not Resuscitate/Intubate Attending Statement: Patient seen and examined. Agree with assessment and plan as described by Dr Tyson. Tailor antibiotics as per Dr Webber. Advance diet to soft. Will plan to f/u in clinic in next couple of weeks. Once drainage is minimal we can repeat CT and determine whether the drains can be removed. She has planned f/u ERCP at [facility] in May for stent removal or exchange. No further bleeding symptoms. H/H acceptable. GOLD TYSON DO Apr 11, 2017 10:39 Jose Sam MD Apr 11, 2017 16:55
--- NOTE | 2017-04-11 11:02 | NUR ---
ASSISTED TRANSFER : Called and spoke with Radha Castillo CM at [facility] and asked her to review patient for transfer to [facility] today. Updated DRY PAN CHARGER Addendum: 04/11/17 at 1619 by JOSI SKY CM [facility]. Updated DRY PAN CHARGER and KAIT MARSH
--- NOTE | 2017-04-11 14:49 | NUR ---
NUTRITION FOLLOW UP: Assess: 81 YO Female admitted for symptomatic anemia, PNA and VRE. Pt now s/p new JOSH drain with significant output, noted to be feeling well, eating well. Md notes significant constipation, refuses enema. PMHx: Ulcerated gastroesophageal junction, Irregular gastroesophageal junction, Gastric and duodenal hereditary hemorrhagic telangiectasia, Hypothyroid, malnutrition, uterine fibroid. LABS: Reviewed. Alb 2.5, Ca 8.0 MEDICATIONS: Reviewed. DIET: Full Liquids. PO 50-100% GI: BM x 1 (04/07) SKIN: Visible muscle/fat loss in face and arms. ANTHROPOMETRICS: Current wt: 42.1 kg. IBW: 52.3 kg. UBW (November): 54 kg. BMI: 17.0 ESTIMATED NEEDS: Malnutrition/Wt gain Calories: 0415-0677 (30-35 kcal/kg BW) Protein: 65-80 g/day (1.2-1.5 g/kg IBW) NUTRITION DIAGNOSIS: 1.) Severe pro/kcal malnutrition related to chronic illness as evidenced by variable wt, visible loss of LBM/ fat, BMI of 17.0-kg--- PERSISTS. INTERVENTION: 1) Continue Ensure CL on all trays per pt preference on previous admits. 2) Pt has had high kcal/pro diet education on numerous occasions during previous admits. MONITOR/EVALUATE: PO intake, labs, weights, GI/nutrition status. Follow per moderate nutrition risk guidelines.
--- NOTE | 2017-04-11 16:07 | NUR ---
Social Work: Readiness for d/c Data: Pt is on day 6 of hospitalization. EMR reviewed, pt discussed in rounds. MD states pt likely ready for d/c in 0-1 days. UR specialist notified insurance and insurance authorization was obtained. now states pt ready for d/c tomorrow. VIDEO CLERK will continue to follow. Assessment: Pt who is independent at baseline, currently not capable of self care. Plan: Pt will d/c back to [facility] via either cabulance or POV with family, likely tomorrow. Insurance authorization obtained today. VIDEO CLERK will continue to follow. SOHAN Kim
[2017-04-11 17:15] VITALS: BP 120/64; PULSE 92; RESP 16; O2SAT 94
--- NOTE | 2017-04-11 18:40 | NUR ---
Drains Flushed both hepatic drains with 10mL saline. Drains patent. Emptied 90 mL from upper drain and 20 mL from lower drain. Pt. tolerated well. Pain well controlled with Dilaudid 0.5mg IV Q4H PRN. Tolerating general diet with no nausea or vomiting. Pt. currently sitting up in bed visiting with daughter. Frequent rounding being performed.
[2017-04-11 20:52] VITALS: BP 105/60; PULSE 89; RESP 16; O2SAT 95
[2017-04-12] VITALS (8 sets, daily range): BP systolic 91–108; BP diastolic 54–68; PULSE 76–95; RESP 16; O2SAT 97
--- NOTE | 2017-04-12 02:18 | NUR ---
Nausea / Constipation c/o nausea @22:00, admin Zofran with good effect. Educated on connection with nausea and constipation and recommended suppository, pt still refuses and indicates she must of eaten too much for dinner. Addendum: 04/13/17 at 0251 by JASE VILLAGOMEZ RN After c/o nausea patient emesis into pink bucket with food particles and brown color followed by second administration of Zofran IV instead of SL. Patient wiped mouth with cool washcloth and noticed a streak of blood. Due to no blood being in emesis bucket inquired as to oral health and possibility of a cut on lips or gums. Patient indicated she thinks she had a dry cracked bleed in mouth however I could not locate with pen light and search of mouth. Offered mouth moisturizer and patient then requested a blue emesis bag just in case she had any more emesis out. No further reports of emesis during Q4 Dilaudid administrations, the last one given at 03:00. During hand off at shift change patient indicated she vomited blood, present at bedside in blue emesis bag, and had a "miserable" night.
[2017-04-12] MEDS: HYDROmorphone 0.5 mg/0.5 mL iSecure Syringe IVPUSH PRN ×5 (02:59→20:28)
--- NOTE | 2017-04-12 07:49 | NUR ---
Blood emesis camera engineer notified this RN of emesis that consisted of only blood (200ml). Red in color. No food particles noted. See VSS. BP 79/46 with pulse 92. Patient denies increased dizziness, lethargy, etc.. Patient reports that this also happened one other time in night of emesis of blood. MD notified. PO medication will be held until MD confirms to give. Addendum: 04/12/17 at 0809 by RORY MEZA RN Verbal order to start NS at 100ml/hr.
[2017-04-12] MEDS: Ertapenem Inj 1,000 MG in 0.9% Sodium Chloride 50 ML IV SCH (07:55)
--- NOTE | 2017-04-12 08:17 | PCM.PNMED ---
Subjective Date of Service Apr 12, 2017 Subjective Had an uneventful night until this AM when had 2 episodes of hematemesis, now BP bit low. No significant abdominal pain noted. No fever or other problems. Exam Vital Signs Vital Sign - Last Date Time Temp Pulse Resp B/P Pulse Ox O2 Delivery O2 Flow Rate FiO2 04/12/17 05:33 36.5 95 16 99/62 97 Room Air Intake and Output 04/11/17 04/11/17 04/12/17 Cumulative From/Thru 15:00 23:00 07:00 04/05/17 11:37 - 04/12/17 06:45 Intake Total 533 ml 133 ml 5590 ml Output Total 560 ml 6347 ml Balance -27 ml 133 ml -757 ml Intake Oral 400 ml 2876 ml IV Total 133 ml 133 ml 2410 ml Packed Cells 304 ml Output Urine Total 450 ml 6175 ml Drainage Total 110 ml 172 ml # Voids 2 # Bowel Movements 1 Exam Alert NIAD Skin, pale dry CV; no murmur Rest; no wheezes, clear GI, soft non acute benign, no sig tenderness HENT; adequate hydration, no lesions EYES; gadiel eom intact Lab and Diagnostics Result Diagram: 04/11/17 0620 04/12/17 0640 Microbiology Urinalysis is unremarkable and culture is not indicated Blood cultures are pending X-Rays, CTs and MRIs PROCEDURE: X-RAY CHEST ONE VIEW, PORTABLE ([id number]) INDICATIONS: hypoxia TECHNIQUE: One view of the chest was acquired. COMPARISON: [facility], CR, XR CHEST 1VW (PORTABLE), 03/20/2017, 17: 34. FINDINGS: Surgical changes and devices: Surgical clips project in the right base of neck. There is a pigtail catheter projecting in the right upper quadrant. Lungs and pleura: Trace left pleural effusion. No right pleural effusion or pneumothorax. There is dense retrocardiac consolidation. Mediastinum: Mediastinal contours appear normal. Heart size is normal. Bones and chest wall: No suspicious bony lesions. Overlying soft tissues appear unremarkable. IMPRESSION: Dense retrocardiac consolidation in keeping with pneumonia or aspiration. Please correlate clinically. Trace left pleural effusion Dictated by: Andre Herring M.D. on 04/05/2017 at 12:33 Approved by: Andre Herring M.D. on 04/05/2017 at 12:34 PROCEDURE: CT CHEST, ABDOMEN AND PELVIS WITH CONTRAST ([id number]) INDICATIONS: SOB, ?pneumonia/effusion, f/u hepatic abscess TECHNIQUE: After the administration of intravenous contrast, 5 mm thick sections acquired from the lung apices to the symphysis. 5 mm coronal and sagittal reformats were performed, with additional 7 mm MIP reformats through the lungs. For radiation dose reduction, the following was used: automated exposure control, adjustment of mA and/or kV according to patient size. COMPARISON: [facility], CT, CT ABD PELVIS W CON, 03/20/2017, 19:02. FINDINGS: Image quality: Excellent. CHEST: Lungs and pleura: Small-moderate bilateral pleural effusions with adjacent atelectasis. Mediastinum: Heart size is enlarged. No pericardial effusion. No mediastinal or hilar adenopathy by size criteria. Thoracic aorta and central pulmonary arteries are normal in size. Esophagus is normal in caliber. No hiatal hernia. Chest wall: No axillary or supraclavicular adenopathy by size criteria. The right lobe of the thyroid is not well-seen. Left lobe unremarkable.. ABDOMEN: Solid organs: There is placement of pigtail catheter drain within the liver. As the prior study there is enlargement of a low collection adjacent to the drain which now measures 5.6 x 5.0 cm, previously 2.2 x 2.3 cm. There is adjacent ill- defined infiltrative edema. Main portal vein appears patent. There is an internal biliary stent as before. Pancreas and spleen grossly unremarkable. No definite adrenal nodule. Bilateral renal cortical thinning. No hydronephrosis. and spleen are normal in size and enhancement. Gallbladder not seen. Biliary system is non dilated. Pancreas enhances normally. No adrenal nodules. Kidneys demonstrate normal size and enhancement, without hydronephrosis. Peritoneum and bowel: Large amount of stool seen throughout the colon. No evidence of bowel obstruction. No free air. No free fluid. Nodes and vessels: No retroperitoneal or mesenteric adenopathy by size criteria. Aorta and inferior vena cava are normal in size. Miscellaneous: No ventral hernias. PELVIS: Genitourinary: Bladder wall thickness is normal. Redemonstration of large left -sided uterine fibroid with central calcification. Miscellaneous: No inguinal hernias or adenopathy. Bones: No suspicious bony lesions. No vertebral body compression fractures. IMPRESSION: Status post placement of hepatic drain, however since the prior study dated 03/20 there is an enlarging intrahepatic fluid collection, suspicious for persistent abscess, just medial to the pigtail tip as measured above. There is persistence adjacent intrahepatic infiltrative edema and fluid. Please correlate clinically. Small to moderate bilateral pleural effusions with adjacent atelectasis. Cardiomegaly. Large uterine fibroid as before. Dictated by: Andre Herring M.D. on 04/05/2017 at 18:39 Approved by: Andre Herring M.D. on 04/05/2017 at 18:55 Cardiac Echo Impressions Echocardiogram Report Name: STEWART UREÑA Graeme e: 02/05/2017 Height: 63 in Hospital Exam Location: [facility] Weight: 90 lb Gender: Female BSA: 1.4 m2 : 1935 Age: 81 yrs BP: 110/54 mmHg Reason For Study: Bacteremia Performed By: Corrie Jeffrey Referring Physician: ADALBERTO KELLEY Interpretation Summary The left ventricle is normal in size. Left ventricular systolic function is normal without focal wall motion abnormalities. The ejection fraction is estimated to be 60-65%. Assessment of diastolic parameters indicates normal left ventricular diastolic function and normal filling pressures. The right ventricle is normal in size and function. The right ventricular systolic pressure is estimated at 34 mmHg assuming a right atrial pressure of 3 mm Hg. The left atrium is mildly dilated. Right atrial size is normal. The aortic valve is trileaflet. The aortic valve opens well. There is no aortic regurgitation. There is very small filamentous strand at the tips of aortic leaflets. This is best seen on parasternal long axis views with inncreased magnification. Differential should include endocarditis or Lambl's excrescence. Given positive blood cultures, OLU is recommended. Other valves do not have any obvious evidence for endocarditis. The aortic root is mildly dilated. The ascending aorta is mildly enlarged. Moderate atherosclerotic plaque(s) in the aortic arch. Additional Diagnostics PROCEDURE: CT ABCESS DRAIN PERITONEAL INDICATIONS: CT guided abscess drain COMPARISON: [facility], CT, CT ABCESS DRAIN PERITONEAL, 12/17/2016, 13:58. Technique: 1. Sedation provided by the anesthesiology service. 2. CT guided abscess drain. The risks and the benefits of the procedure were discussed with the patient and her son, consent was obtained, and placed on the chart. The patient was placed in a supine position on the CT table. The appropriate area was prepped and draped in the usual sterile fashion. 1% lidocaine was used to anesthetize the skin over the area of interest. Under CT guidance, an 18 gauge Chiba needle was advanced into the hepatic fluid collection. The inner stylette was removed, and an Amplatz wire was advanced into the fluid collection. The needle was removed, and an 8 Ug[place]an locking pigtail drain was advanced over the wire into the fluid collection and secured in place at the skin. 55 cc of turbid bilious fluid were aspirated and sent to the laboratory for evaluation. The patient tolerated the procedure well. FINDINGS: Initial CT demonstrates a large fluid collection. A small amount of gas is present in this collection in addition to pneumobilia within the left hepatic lobe. IMPRESSION: Successful placement of a CT-guided drain placement within a large fluid and gas collection within the right hepatic lobe. 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 Patient has had multiple gastrointestinal bleeds requiring weekly transfusions. Just 4-5 days ago patient was at [facility] having to or more abdominal shunts placed to further drain her chronic liver abscesses after presenting to [facility] emergency department with sepsis. She states after being discharged she had been feeling worse than her prior baseline in terms of generalized weakness and feeling unwell. She has been having intermittent epigastric abdominal pain which is typical for her chronic pain. She was transfused with 2 units of blood while at [facility] and transfused 2 units of blood 2 days ago. Patient denies any fever, chest pain, shortness of breath, nausea, vomiting, dysuria or cough. The patient continued to feel poorly and at [facility] she had her O2 sat checked and was found to be 70-80% and her blood pressure was low at less than 100 systolic this morning. Therefore the [facility] called 911 patient was brought to [facility] emergency room. The emergency room she was evaluated by Dr. Alvaro Dahl who found her hemoglobin to be 5.5 and her hematocrit to be only 17.7. A chest x-ray showed dense retrocardiac consolidation in keeping with pneumonia or aspiration. Therefore, a CT scan was ordered and showed "Status post placement of hepatic drain, however since the prior study dated 03/20/17 there is an enlarging intrahepatic fluid collection, suspicious for persistent abscess, just medial to the pigtail tip as measured above. There is persistence adjacent intrahepatic infiltrative edema and fluid. Please correlate clinically. Small to moderate bilateral pleural effusions with adjacent atelectasis. Cardiomegaly. Large uterine fibroid as before." Due to her complicated history and active GI bleeding the patient was admitted to the hospitalist service for further evaluation and treatment. # Gastrointestinal bleed secondary to hereditary hemorrhagic telangiectasia or HHT with acute blood loss anemia, present on admission. Active - Patient transfused 2 units of packed red blood cels on 04/11/17, check hb give more blood if needed as her hgb had trended down, Hgb >9.0 today - Give two more unit today (04/12/17) repeat cbc in am; diet to full liquid - Endoscopy done 04/11/17, no signs of active bleeding, continue monitoring - GI on board. 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 Active - Patient had recent internal biliary drains placed at [facility]. Films were reviewed by Dr. Sam it appears that the drain or drains need to be readjusted. Her ventral radiology will be contacted. - Patient still has an externalized hepatic drain in place. - IR drain insertion 04/11/17, procedure went well as noted above - Continue linezolid and ertapenem (day 7 in hospital) as at home. - Patient has a history of sepsis secondary to VRE and Klebsiella. - ID consult , appreciate Dr. Kelley's input # Severe protein calorie malnutrition, present on admission with a BMI of 17.0 kg/m. Active - We will discuss plans with gastroenterology direct response consultant - We will place on full liquid diet for now. # Urinary fibroid mass, which is impinging on the colon resulting in constipation, present on admission. Active - Continue full liquid diet for now - Mineral oil enema given as an option, patient refuses - continue to monitor Disposition: Pending clinical improvement. PT today GI Prophylaxis: Proton Pump Inhibitor VTE Prophylaxis: SCDs VTE Mechanical Devices: Intermittant Pneumatic CD, Venous Foot Pump Resuscitation Status: DNR/DNI:Do Not Resuscitate/Intubate Erika Benson MD Apr 12, 2017 08:16
[2017-04-12 08:33] LABS: BASOPHILS % (AUTO) 0.6 % (0-3); EOSINOPHILS % (AUTO) 1.6 % (0-5); MONOCYTES % (AUTO) 14.8 % (4-12); Mean Corpuscular Hemoglobin 29.5 pg (27.0-35.0); Mean Corpuscular Volume 93.8 fL (81-100); NEUTROPHILS % (AUTO) 64.3 % (40-74); Platelet Count 315 bil/L (150-400)
--- NOTE | 2017-04-12 08:42 | NUR ---
Lab Charge nurse aware r/t blood in emesis. See charge nurse note. Notified green team hospitalist r/t Hemoglobin 7.6 and PO medications held due to Blood in the emesis per hospitalist. Denies dizziness. c/o pain to abdomen, PRN Dilaudud IV given with effective results. Continue to monitor Vitals signs and mentation.
[2017-04-12] MEDS: 0.9% Sodium Chloride 1,000 ML IV SCH (09:25)
[2017-04-12] MEDS: Pantoprazole 20 mg ER24 Tablet PO SCH ×2 (09:51→20:28)
[2017-04-12] MEDS: Polyethylene Glycol (PEG) 17 Gm Powder PO SCH (09:51)
--- NOTE | 2017-04-12 09:53 | NUR ---
PO medications Per Dr. hernandez," OK to give PO morning medications." PO medications given as ordered with out difficulty swallowing. No nausea or vomiting reported by patient.
[2017-04-12] MEDS ORDERED: 0.9% Sodium Chloride 250 ML ONE ×2 (10:37→13:31)
--- NOTE | 2017-04-12 11:12 | NUR ---
Blood Orders to transfuse blood 2 units. Consent confirmed and placed in chart. Initiated transfusion at 1105 into right midline IV. Infusion continues at this time without any sign of reaction and pt reporting comfort. Stable vitals signs. patient receiving blood 1 of 2 units at this time. Will continue to monitor and frequent roundings.
--- NOTE | 2017-04-12 12:51 | PROG NOTE ---
[address] [address] PROGRESS NOTE PATIENT: STEWART UREÑA : 1935 MR#: [id number] ADMIT: 04/05/2017 JOB ID: [id number] DATE: 04/12/2017 SUBJECTIVE: Overnight 90 cc drained out of the more recently placed drain and 20 out of the other. The 90 cc output demonstrated rust colored bile (bile with a small amount of blood). The 20 cc what were was in essence strictly bile. So far, the abscess fluid is growing enterococcus species, probably VRE as before. She remains on ertapenem and linezolid. Yesterday, she was feeling great and had an omelet brought in by family and really enjoyed this, but she believes she went after her diet perhaps a little more aggressively then she should and had some emesis of blood; up to about 200 cc by nursing estimation overnight. Hemoglobin is back down to 7.6 this morning. Her blood pressure was 96/59 earlier this morning. She is receiving a couple of units of blood transfusion. We talked about proceeding with another upper endoscopy. The patient is in favor of holding off and seeing if everything spontaneously stops as would somewhat be expected. OBJECTIVE: Most recent blood pressure 105/68, temperature 36.7, pulse 87, breathing 16. The patient was in no distress. Conversational. Drain output colors were in essence as described above. She does not have any further nausea and overall feels okay. She is tolerating MiraLAX and for now declines the enema that we initially recommended based on a colon full of stool (she has fairly chronic early satiety and diminished appetite likely as a consequence.) ASSESSMENT AND PLAN: An 81-year-old female with hemorrhagic hereditary telangiectasia and recurrent bleeding. I agree with transfusional support. The patient would like to defer repeat esophagogastroduodenoscopy for now and see if she has an appropriate elevation and response to the transfusion. For now, I would be inclined to continue full liquid diet through today and depending on how she performs clinically, regarding-advance to a soft diet tomorrow. Should there not be an appropriate elevation in her hemoglobin and hematocrit with transfusion or she clearly demonstrates ongoing bleeding, then repeat esophagogastroduodenoscopy will need to be attempted with anesthesia. As to the liver infected with multiloculated bilomas, she remains on an appropriate antibiotic course. Will simply have to follow the clinical progress and drainage as previously recommended. COMMENT: This is a no-charge physician visit. Today is the Sabbath. Please do not submit physician charge for this particular note.
--- NOTE | 2017-04-12 13:32 | PROG NOTE ---
[address] [address] PROGRESS NOTE PATIENT: STEWART UREÑA : 1935 MR#: [id number] ADMIT: 04/05/2017 JOB ID: [id number] DATE: 04/12/2017 INFECTIOUS DISEASE FOLLOWUP NOTE: REASON FOR FOLLOWUP: Liver abscess/biloma. INTERVAL HISTORY: Overnight the patient has developed a significant upper GI bleed which has left her with abdominal pain, nausea, and a need for additional transfusion. Recall that just a couple days ago she underwent an upper endoscopy which did not show any active bleeding. Aside from her ongoing bleeding issue, which is obviously a major problem, the patient has no fevers or chills. She notes that her new hepatic abscess/biloma drain is working better than the prior drain and a great deal of material has been expressed. She has no significant shortness of breath, fever, or chills. PHYSICAL EXAMINATION: Reveals an afebrile woman temp 36.7, pulse 82, respiratory rate 16, blood pressure 93/57. She is pale and appears weak, but in no acute distress. Oral cavity without change. Lungs clear. Cardiac tones without new murmur. Abdomen with minimal right upper quadrant tenderness as before. LABORATORIES: Include white count 5100. Her crit is down to 24 this morning. Creatinine 0.38. Micro studies include the Enterococcus, which is almost certainly going to be VRE growing from the new liver abscess drainage. No other organisms have been encountered. IMPRESSION: This patient continues to have major problems with ongoing gastrointestinal bleeding which has been the dominant theme of her life the last few years and is related to her HHT. In addition we continue to have positive cultures for VRE whenever a new drain is inserted into her liver abscess despite many weeks of linezolid therapy. So far we have thankfully not encountered any other organisms. RECOMMENDATIONS: 1. Will continue with linezolid and ertapenem at this time. 2. If by Friday we have not found any other organisms in the new liver abscess drainage, we can go ahead and drop the ertapenem. 3. Will continue to closely follow this complex patient with you and I have asked the lab to check linezolid and daptomycin susceptibilities once again.
--- NOTE | 2017-04-12 14:07 | NUR ---
Blood 2nd unit of Blood started as ordered. Stable vital signs. No sign and symptoms of blood transfusion reactions noted.
--- NOTE | 2017-04-12 17:17 | NUR ---
offered enema per Dr. Sam ordered. patient refused to take enema. Addendum: 04/12/17 at 1717 by YUKO SYKES RN Amended: Links added.
--- NOTE | 2017-04-12 19:10 | NUR ---
Drains Flushed both hepatic drains with 10mL saline. Drains patent. Emptied 40mL from upper drain and 10 mL from lower drain.
[2017-04-13] MEDS: HYDROmorphone 0.5 mg/0.5 mL iSecure Syringe IVPUSH PRN ×5 (00:51→21:12)
[2017-04-13 00:55] VITALS: BP 106/60; PULSE 95; RESP 16; O2SAT 92
[2017-04-13] MEDS: 0.9% Sodium Chloride 1,000 ML IV SCH ×2 (01:25→07:44)
[2017-04-13 04:24] VITALS: BP 99/54; PULSE 92; RESP 16; O2SAT 93
[2017-04-13 06:58] LABS: MONOCYTES % (AUTO) 15.8 % (4-12); NEUTROPHILS % (AUTO) 62.9 % (40-74); Platelet Count 286 bil/L (150-400)
[2017-04-13 06:59] LABS: BASOPHILS % (AUTO) 0.4 % (0-3); EOSINOPHILS % (AUTO) 2.6 % (0-5)
--- NOTE | 2017-04-13 07:05 | NUR ---
Pain c/o pain x3 this shift. Prn Dilaudid administered and effective. Currently resting in bed without any complaints.
[2017-04-13] MEDS: Ertapenem Inj 1,000 MG in 0.9% Sodium Chloride 50 ML IV SCH (07:40)
[2017-04-13] MEDS: Pantoprazole 20 mg ER24 Tablet PO SCH ×2 (07:41→21:09)
[2017-04-13] MEDS: Polyethylene Glycol (PEG) 17 Gm Powder PO SCH (07:42)
--- NOTE | 2017-04-13 09:03 | PCM.PNMED ---
Subjective Date of Service Apr 13, 2017 Subjective Nofurther evidence of bleedin, Hb up to 8. No other problems noted today. Abscess cult is showing enterococcus, sens pending. Exam Vital Signs Vital Sign - Last Date Time Temp Pulse Resp B/P Pulse Ox O2 Delivery O2 Flow Rate FiO2 04/13/17 04:24 37.1 92 16 99/54 93 Room Air Intake and Output 04/12/17 04/12/17 04/13/17 Cumulative From/Thru 15:00 23:00 07:00 04/05/17 11:37 - 04/13/17 07:00 Intake Total 416 ml 758 ml 0 ml 6764 ml Output Total 760 ml 7107 ml Balance -344 ml 758 ml 0 ml -343 ml Intake Oral 0 ml 2876 ml IV Total 63 ml 420 ml 0 ml 2893 ml Packed Cells 353 ml 338 ml 995 ml Output Urine Total 425 ml 6600 ml Emesis 325 ml 325 ml Drainage Total 10 ml 182 ml # Voids 2 # Bowel Movements 1 Exam Skin warm and dry with out rash HENT; no lesion, adequate hydration Card; S1S2 present , no murmur Resp; clear anteriorly GI, drain in place, soft non acute No edema Lab and Diagnostics Result Diagram: 04/13/17 0620 04/13/17 0620 Microbiology Urinalysis is unremarkable and culture is not indicated Blood cultures are pending X-Rays, CTs and MRIs PROCEDURE: X-RAY CHEST ONE VIEW, PORTABLE ([id number]) INDICATIONS: hypoxia TECHNIQUE: One view of the chest was acquired. COMPARISON: [facility], CR, XR CHEST 1VW (PORTABLE), 03/20/2017, 17: 34. FINDINGS: Surgical changes and devices: Surgical clips project in the right base of neck. There is a pigtail catheter projecting in the right upper quadrant. Lungs and pleura: Trace left pleural effusion. No right pleural effusion or pneumothorax. There is dense retrocardiac consolidation. Mediastinum: Mediastinal contours appear normal. Heart size is normal. Bones and chest wall: No suspicious bony lesions. Overlying soft tissues appear unremarkable. IMPRESSION: Dense retrocardiac consolidation in keeping with pneumonia or aspiration. Please correlate clinically. Trace left pleural effusion Dictated by: Andre Herring M.D. on 04/05/2017 at 12:33 Approved by: Andre Herring M.D. on 04/05/2017 at 12:34 PROCEDURE: CT CHEST, ABDOMEN AND PELVIS WITH CONTRAST ([id number]) INDICATIONS: SOB, ?pneumonia/effusion, f/u hepatic abscess TECHNIQUE: After the administration of intravenous contrast, 5 mm thick sections acquired from the lung apices to the symphysis. 5 mm coronal and sagittal reformats were performed, with additional 7 mm MIP reformats through the lungs. For radiation dose reduction, the following was used: automated exposure control, adjustment of mA and/or kV according to patient size. COMPARISON: [facility], CT, CT ABD PELVIS W CON, 03/20/2017, 19:02. FINDINGS: Image quality: Excellent. CHEST: Lungs and pleura: Small-moderate bilateral pleural effusions with adjacent atelectasis. Mediastinum: Heart size is enlarged. No pericardial effusion. No mediastinal or hilar adenopathy by size criteria. Thoracic aorta and central pulmonary arteries are normal in size. Esophagus is normal in caliber. No hiatal hernia. Chest wall: No axillary or supraclavicular adenopathy by size criteria. The right lobe of the thyroid is not well-seen. Left lobe unremarkable.. ABDOMEN: Solid organs: There is placement of pigtail catheter drain within the liver. As the prior study there is enlargement of a low collection adjacent to the drain which now measures 5.6 x 5.0 cm, previously 2.2 x 2.3 cm. There is adjacent ill- defined infiltrative edema. Main portal vein appears patent. There is an internal biliary stent as before. Pancreas and spleen grossly unremarkable. No definite adrenal nodule. Bilateral renal cortical thinning. No hydronephrosis. and spleen are normal in size and enhancement. Gallbladder not seen. Biliary system is non dilated. Pancreas enhances normally. No adrenal nodules. Kidneys demonstrate normal size and enhancement, without hydronephrosis. Peritoneum and bowel: Large amount of stool seen throughout the colon. No evidence of bowel obstruction. No free air. No free fluid. Nodes and vessels: No retroperitoneal or mesenteric adenopathy by size criteria. Aorta and inferior vena cava are normal in size. Miscellaneous: No ventral hernias. PELVIS: Genitourinary: Bladder wall thickness is normal. Redemonstration of large left -sided uterine fibroid with central calcification. Miscellaneous: No inguinal hernias or adenopathy. Bones: No suspicious bony lesions. No vertebral body compression fractures. IMPRESSION: Status post placement of hepatic drain, however since the prior study dated 03/20 there is an enlarging intrahepatic fluid collection, suspicious for persistent abscess, just medial to the pigtail tip as measured above. There is persistence adjacent intrahepatic infiltrative edema and fluid. Please correlate clinically. Small to moderate bilateral pleural effusions with adjacent atelectasis. Cardiomegaly. Large uterine fibroid as before. Dictated by: Andre Herring M.D. on 04/05/2017 at 18:39 Approved by: Andre Herring M.D. on 04/05/2017 at 18:55 Cardiac Echo Impressions Echocardiogram Report Name: STEWART UREÑA Graeme e: 02/05/2017 Height: 63 in Hospital Exam Location: [facility] Weight: 90 lb Gender: Female BSA: 1.4 m2 : 1935 Age: 81 yrs BP: 110/54 mmHg Reason For Study: Bacteremia Performed By: Corrie Jeffrey Referring Physician: ADALBERTO KELLEY Interpretation Summary The left ventricle is normal in size. Left ventricular systolic function is normal without focal wall motion abnormalities. The ejection fraction is estimated to be 60-65%. Assessment of diastolic parameters indicates normal left ventricular diastolic function and normal filling pressures. The right ventricle is normal in size and function. The right ventricular systolic pressure is estimated at 34 mmHg assuming a right atrial pressure of 3 mm Hg. The left atrium is mildly dilated. Right atrial size is normal. The aortic valve is trileaflet. The aortic valve opens well. There is no aortic regurgitation. There is very small filamentous strand at the tips of aortic leaflets. This is best seen on parasternal long axis views with inncreased magnification. Differential should include endocarditis or Lambl's excrescence. Given positive blood cultures, OLU is recommended. Other valves do not have any obvious evidence for endocarditis. The aortic root is mildly dilated. The ascending aorta is mildly enlarged. Moderate atherosclerotic plaque(s) in the aortic arch. Additional Diagnostics PROCEDURE: CT ABCESS DRAIN PERITONEAL INDICATIONS: CT guided abscess drain COMPARISON: [facility], CT, CT ABCESS DRAIN PERITONEAL, 12/17/2016, 13:58. Technique: 1. Sedation provided by the anesthesiology service. 2. CT guided abscess drain. The risks and the benefits of the procedure were discussed with the patient and her son, consent was obtained, and placed on the chart. The patient was placed in a supine position on the CT table. The appropriate area was prepped and draped in the usual sterile fashion. 1% lidocaine was used to anesthetize the skin over the area of interest. Under CT guidance, an 18 gauge Chiba needle was advanced into the hepatic fluid collection. The inner stylette was removed, and an Amplatz wire was advanced into the fluid collection. The needle was removed, and an 8 Israeli locking pigtail drain was advanced over the wire into the fluid collection and secured in place at the skin. 55 cc of turbid bilious fluid were aspirated and sent to the laboratory for evaluation. The patient tolerated the procedure well. FINDINGS: Initial CT demonstrates a large fluid collection. A small amount of gas is present in this collection in addition to pneumobilia within the left hepatic lobe. IMPRESSION: Successful placement of a CT-guided drain placement within a large fluid and gas collection within the right hepatic lobe. 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 Patient has had multiple gastrointestinal bleeds requiring weekly transfusions. Just 4-5 days ago patient was at [facility] having to or more abdominal shunts placed to further drain her chronic liver abscesses after presenting to [facility] emergency department with sepsis. She states after being discharged she had been feeling worse than her prior baseline in terms of generalized weakness and feeling unwell. She has been having intermittent epigastric abdominal pain which is typical for her chronic pain. She was transfused with 2 units of blood while at [facility] and transfused 2 units of blood 2 days ago. Patient denies any fever, chest pain, shortness of breath, nausea, vomiting, dysuria or cough. The patient continued to feel poorly and at [facility] she had her O2 sat checked and was found to be 70-80% and her blood pressure was low at less than 100 systolic this morning. Therefore the [facility] called 911 patient was brought to [facility] emergency room. The emergency room she was evaluated by Dr. Alvaro Dahl who found her hemoglobin to be 5.5 and her hematocrit to be only 17.7. A chest x-ray showed dense retrocardiac consolidation in keeping with pneumonia or aspiration. Therefore, a CT scan was ordered and showed "Status post placement of hepatic drain, however since the prior study dated 03/20/17 there is an enlarging intrahepatic fluid collection, suspicious for persistent abscess, just medial to the pigtail tip as measured above. There is persistence adjacent intrahepatic infiltrative edema and fluid. Please correlate clinically. Small to moderate bilateral pleural effusions with adjacent atelectasis. Cardiomegaly. Large uterine fibroid as before." Due to her complicated history and active GI bleeding the patient was admitted to the hospitalist service for further evaluation and treatment. # Gastrointestinal bleed secondary to hereditary hemorrhagic telangiectasia or HHT with acute blood loss anemia, present on admission. Active - Patient transfused 2 units of packed red blood cels on 04/11/17 - Patient transfused 2 units of packed red blood cels on 04/12/17 - continue with full liquid diet - Endoscopy done 04/11/17, no signs of active bleeding, continue monitoring - GI on board. 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 Active - Patient had recent internal biliary drains placed at [facility]. Films were reviewed by Dr. Sam it appears that the drain or drains need to be readjusted. Her ventral radiology will be contacted. - Patient still has an externalized hepatic drain in place. - IR drain reinsertion 04/11/17, procedure went well as noted above - Continue linezolid and ertapenem (day 8 in hospital) as at home. - Patient has a history of sepsis secondary to VRE and Klebsiella. - abscess growing enterococus, sensitivities pending, continue with current antibiotics # Severe protein calorie malnutrition, present on admission with a BMI of 17.0 kg/m. Active - We will discuss plans with gastroenterology cloud consultant - We will place on full liquid diet for now. # Urinary fibroid mass, which is impinging on the colon resulting in constipation, present on admission. Active - Continue full liquid diet for now - Mineral oil enema given as an option, patient refuses - continue to monitor Disposition: -pcp is Denisha Baird MD -lives with unassisted [facility] Prophylaxis: Proton Pump Inhibitor VTE Prophylaxis: SCDs VTE Mechanical Devices: Intermittant Pneumatic CD, Venous Foot Pump Resuscitation Status: DNR/DNI:Do Not Resuscitate/Intubate Erika Benson MD Apr 13, 2017 09:03
--- NOTE | 2017-04-13 11:45 | PROG NOTE ---
[address] [address] PROGRESS NOTE PATIENT: STEWART UREÑA : 1935 MR#: [id number] ADMIT: 04/05/2017 JOB ID: [id number] DATE: 04/13/2017 SUBJECTIVE: The patient has had some bowel movements this morning. They are dark, but H and H is appropriately elevated following blood transfusion yesterday. No further hematemesis. She ate her breakfast this morning and is overall feeling quite a bit improved. Drainage recorded in her 2 transhepatic pigtail catheters were 10 cc total. It does not look like there was any recorded in the more recently placed drain. OBJECTIVE: Vital signs stable, acceptable. Patient conversational in no distress. There is a rust-colored fluid in the most recently placed drained. To my eyeball there is at least 20 cc of fluid in there. There is a small amount of green fluid in the more dated draining. ASSESSMENT AND RECOMMENDATION: 1. An 81-year-old female with a hereditary hemorrhagic telangiectasia recurrent bleeding requiring transfusional support. She does not appear to have any ongoing substantial bleeding at the moment. It looks like she does not require an EGD today. I think graduation to a soft diet would be just fine. It looks like she has Enterococcus species growing out in her intrahepatic biloma fluid. 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 Antibiotic manipulation will in essence be at the discretion of Dr. Webber. If either drain is consistently 10 cc or less per 24 hours they can be removed. 2. Patient would otherwise be interested in discharge from the hospital, but is struggling with her strength and seems to require a little more physical therapy here. I would be happy to follow up with the patient in the office in the short term to monitor her drain output and hopefully we can make the decision to remove at least one or both drains in the near future. She would then need a repeat ERCP at [facility] in May as scheduled to either exchange or remove the stent entirely.
--- NOTE | 2017-04-13 11:59 | NUR ---
Mentation and pain Patient is alert and orientnedX3. Able to make needs known. PRN dilaudid given for abdomen pain once this shift so far for pain 6/10 with effective pain management. Patient up with physical therapy in room. See PT notes. Tolerating PO fluids and meals with no report of nausea or vomiting so far this shift. per patient report one Small dark stool at mid night last night and one dark stool this molecular modeler, Dr. villeda and Hospitalist aware. no new orders received. IV fluids continuous as ordered. uses call light appropriately. Continuous contact precautions for VRE. Stable mood. IV therapy at bed side to assess right mid line. 2 liver drains to right flushed as ordered with 10cc normal saline each with total out put 30cc and 10cc. Continue to monitor.
[2017-04-13 13:44] VITALS: BP 121/75; PULSE 84; RESP 16; O2SAT 96
[2017-04-13 20:29] VITALS: BP 123/66; PULSE 90; RESP 14; O2SAT 97
[2017-04-14] MEDS: 0.9% Sodium Chloride 1,000 ML IV SCH ×2 (00:47→18:00)
[2017-04-14] MEDS: HYDROmorphone 0.5 mg/0.5 mL iSecure Syringe IVPUSH PRN ×5 (01:18→23:51)
[2017-04-14 04:56] VITALS: BP 110/59; PULSE 88; RESP 16; O2SAT 96
--- NOTE | 2017-04-14 05:47 | NUR ---
Pain Management Pt. continues to use Dilaudid to control pain. Drains flushed this AM. 30 Ml between both drains. IV line running 60 Ml/Hr NS. Possible D/C to [facility]. VSS and she is in good spirits.
[2017-04-14] MEDS: Pantoprazole 20 mg ER24 Tablet PO SCH ×2 (07:59→19:53)
[2017-04-14] MEDS: Polyethylene Glycol (PEG) 17 Gm Powder PO SCH (07:59)
[2017-04-14] MEDS: Ertapenem Inj 1,000 MG in 0.9% Sodium Chloride 50 ML IV SCH (07:59)
[2017-04-14 09:13] VITALS: BP 119/73; PULSE 85; RESP 16; O2SAT 96
--- NOTE | 2017-04-14 10:30 | NUR ---
[facility] TRANSFER : Spoke with Radha Castillo [phone] CM at [place] and she is approving patient for transfer to [facility] today. Updated ORDER PICKER/ASSEMBLER
--- NOTE | 2017-04-14 13:02 | NUR ---
Dark loose stools AGRISCIENCE TECHNOLOGY INSTRUCTOR reports dark color 3 loose stools so far this shift. per patient it is normal for me. stable vital signs. Denies pain or discomfort. 2 right side liver drains, upper hepatic drain with rust colored out put 5cc and lower hepatic drain green colored out put 2cc. bilateral drains flushed each with 10cc normal saline. Dr. villeda saw patient this shift. Continue to flush and record drainage out put and color from upper and lower hepatic drains.
--- NOTE | 2017-04-14 13:42 | PROG NOTE ---
[address] [address] PROGRESS NOTE PATIENT: STEWART UREÑA : 1935 MR#: [id number] ADMIT: 04/05/2017 JOB ID: [id number] DATE: 04/14/2017 SUBJECTIVE: Appetite is still a little diminished. She is requesting mashed potatoes with gravy. She remains on IV antibiotics and is afebrile. The transhepatic drains have been emptied and what I suspect is that the older drain passing the bilious-appearing fluid has been really minimally draining over the last several days. The more recently placed drain would appear to have had another 30 cc yesterday and 30 cc overnight. I have chatted with nursing staff and requested that the totals for each drain be listed separately so that we can determine which drain can be removed. No overt symptoms of GI bleeding. Vital signs are acceptable. OBJECTIVE: Vital signs stable. Blood pressure 119/73. Patient conversational. Alert, oriented, appropriate. There is still a small volume of rust-colored fluid in the most recently placed transhepatic drain. There is green-colored, minimal scant amount of fluid in the other drain bag. LABS: No labs today. 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 I suspect the older drain can be removed. I have encouraged staff to be much more meticulous in the documentation so that we can confirm the lack of drainage in the older drain. If it remains 10 cc or less, I would be inclined to pull this and then simply continue to monitor the rust-colored fluid from the more recently placed pigtail. Antibiotics will be at the discretion of Dr. Webber. I see absolutely no problem with trying to advance the patient's diet to what she desires and I have encouraged her to actively engage in more physical therapy, so that she feels a little stronger and safer for discharge back into the outpatient setting again.
--- NOTE | 2017-04-14 13:47 | NUR ---
Social Work-readiness for discharge: Data:EMR Reviewed. pt is on day 9 of hospitalization for anemia per H&P. Pt is not medically stable anticipate 1-2 more days. Pt has been residing at [facility] and will be returning there at discharge. [employer] authorization has been obtained. Paperwork in the chart. SW will continue to follow. Assessment:Pt who is independent at baseline. Plan:Pt to discharge back to [facility] when medically stable. [employer] authorization has been obtained. Paperwork in the chart. SW will continue to follow. SOHAN Gayle
--- NOTE | 2017-04-14 14:26 | NUR ---
Abdominal pain C/o abdominal pain 02/15 after eating family brought meal for patient," per patient I ate chicken nuggets." PRN Dilaudid given as ordered for pain. Continue to monitor abdominal pain.
--- NOTE | 2017-04-14 15:09 | PCM.PNMED ---
Subjective Date of Service Apr 14, 2017 Subjective In bed resting. Was out of bed with physical therapy earlier.. No fever. Culture show moderate yeast. Exam Vital Signs Vital Sign - Last Date Time Temp Pulse Resp B/P Pulse Ox O2 Delivery O2 Flow Rate FiO2 04/14/17 11:33 Room Air 04/14/17 09:13 36.7 85 16 119/73 96 Intake and Output 04/13/17 04/13/17 04/14/17 Cumulative From/Thru 15:00 23:00 07:00 04/05/17 11:37 - 04/14/17 05:35 Intake Total 100 ml 2074 ml 1091 ml 78503 ml Output Total 950 ml 505 ml 8562 ml Balance -850 ml 2074 ml 586 ml 1467 ml Intake Oral 100 ml 700 ml 300 ml 3976 ml IV Total 1374 ml 791 ml 5058 ml Packed Cells 995 ml Output Urine Total 950 ml 475 ml 8025 ml Emesis 325 ml Drainage Total 30 ml 212 ml # Voids 4 6 # Bowel Movements 2 4 7 Exam Skin warm and dry with out rash HENT; no lesion, adequate hydration Card; S1S2 present , no murmur, no JVD, no sig edema Resp; clear anteriorly GI, drains in place, soft non acute No edema Lab and Diagnostics Result Diagram: 04/13/17 0620 04/13/17 0620 Microbiology Urinalysis is unremarkable and culture is not indicated Blood cultures are pending X-Rays, CTs and MRIs PROCEDURE: X-RAY CHEST ONE VIEW, PORTABLE ([id number]) INDICATIONS: hypoxia TECHNIQUE: One view of the chest was acquired. COMPARISON: [facility], CR, XR CHEST 1VW (PORTABLE), 03/20/2017, 17: 34. FINDINGS: Surgical changes and devices: Surgical clips project in the right base of neck. There is a pigtail catheter projecting in the right upper quadrant. Lungs and pleura: Trace left pleural effusion. No right pleural effusion or pneumothorax. There is dense retrocardiac consolidation. Mediastinum: Mediastinal contours appear normal. Heart size is normal. Bones and chest wall: No suspicious bony lesions. Overlying soft tissues appear unremarkable. IMPRESSION: Dense retrocardiac consolidation in keeping with pneumonia or aspiration. Please correlate clinically. Trace left pleural effusion Dictated by: Andre Herring M.D. on 04/05/2017 at 12:33 Approved by: Andre Herring M.D. on 04/05/2017 at 12:34 PROCEDURE: CT CHEST, ABDOMEN AND PELVIS WITH CONTRAST ([id number]) INDICATIONS: SOB, ?pneumonia/effusion, f/u hepatic abscess TECHNIQUE: After the administration of intravenous contrast, 5 mm thick sections acquired from the lung apices to the symphysis. 5 mm coronal and sagittal reformats were performed, with additional 7 mm MIP reformats through the lungs. For radiation dose reduction, the following was used: automated exposure control, adjustment of mA and/or kV according to patient size. COMPARISON: [facility], CT, CT ABD PELVIS W CON, 03/20/2017, 19:02. FINDINGS: Image quality: Excellent. CHEST: Lungs and pleura: Small-moderate bilateral pleural effusions with adjacent atelectasis. Mediastinum: Heart size is enlarged. No pericardial effusion. No mediastinal or hilar adenopathy by size criteria. Thoracic aorta and central pulmonary arteries are normal in size. Esophagus is normal in caliber. No hiatal hernia. Chest wall: No axillary or supraclavicular adenopathy by size criteria. The right lobe of the thyroid is not well-seen. Left lobe unremarkable.. ABDOMEN: Solid organs: There is placement of pigtail catheter drain within the liver. As the prior study there is enlargement of a low collection adjacent to the drain which now measures 5.6 x 5.0 cm, previously 2.2 x 2.3 cm. There is adjacent ill- defined infiltrative edema. Main portal vein appears patent. There is an internal biliary stent as before. Pancreas and spleen grossly unremarkable. No definite adrenal nodule. Bilateral renal cortical thinning. No hydronephrosis. and spleen are normal in size and enhancement. Gallbladder not seen. Biliary system is non dilated. Pancreas enhances normally. No adrenal nodules. Kidneys demonstrate normal size and enhancement, without hydronephrosis. Peritoneum and bowel: Large amount of stool seen throughout the colon. No evidence of bowel obstruction. No free air. No free fluid. Nodes and vessels: No retroperitoneal or mesenteric adenopathy by size criteria. Aorta and inferior vena cava are normal in size. Miscellaneous: No ventral hernias. PELVIS: Genitourinary: Bladder wall thickness is normal. Redemonstration of large left -sided uterine fibroid with central calcification. Miscellaneous: No inguinal hernias or adenopathy. Bones: No suspicious bony lesions. No vertebral body compression fractures. IMPRESSION: Status post placement of hepatic drain, however since the prior study dated 03/20 there is an enlarging intrahepatic fluid collection, suspicious for persistent abscess, just medial to the pigtail tip as measured above. There is persistence adjacent intrahepatic infiltrative edema and fluid. Please correlate clinically. Small to moderate bilateral pleural effusions with adjacent atelectasis. Cardiomegaly. Large uterine fibroid as before. Dictated by: Andre Herring M.D. on 04/05/2017 at 18:39 Approved by: Andre Herring M.D. on 04/05/2017 at 18:55 Cardiac Echo Impressions Echocardiogram Report Name: STEWART UREÑA Graeme e: 02/05/2017 Height: 63 in Hospital Exam Location: [facility] Weight: 90 lb Gender: Female BSA: 1.4 m2 : 1935 Age: 81 yrs BP: 110/54 mmHg Reason For Study: Bacteremia Performed By: Corrie Jeffrey Referring Physician: ADALBERTO KELLEY Interpretation Summary The left ventricle is normal in size. Left ventricular systolic function is normal without focal wall motion abnormalities. The ejection fraction is estimated to be 60-65%. Assessment of diastolic parameters indicates normal left ventricular diastolic function and normal filling pressures. The right ventricle is normal in size and function. The right ventricular systolic pressure is estimated at 34 mmHg assuming a right atrial pressure of 3 mm Hg. The left atrium is mildly dilated. Right atrial size is normal. The aortic valve is trileaflet. The aortic valve opens well. There is no aortic regurgitation. There is very small filamentous strand at the tips of aortic leaflets. This is best seen on parasternal long axis views with inncreased magnification. Differential should include endocarditis or Lambl's excrescence. Given positive blood cultures, OLU is recommended. Other valves do not have any obvious evidence for endocarditis. The aortic root is mildly dilated. The ascending aorta is mildly enlarged. Moderate atherosclerotic plaque(s) in the aortic arch. Additional Diagnostics PROCEDURE: CT ABCESS DRAIN PERITONEAL INDICATIONS: CT guided abscess drain COMPARISON: [facility], CT, CT ABCESS DRAIN PERITONEAL, 12/17/2016, 13:58. Technique: 1. Sedation provided by the anesthesiology service. 2. CT guided abscess drain. The risks and the benefits of the procedure were discussed with the patient and her son, consent was obtained, and placed on the chart. The patient was placed in a supine position on the CT table. The appropriate area was prepped and draped in the usual sterile fashion. 1% lidocaine was used to anesthetize the skin over the area of interest. Under CT guidance, an 18 gauge Chiba needle was advanced into the hepatic fluid collection. The inner stylette was removed, and an Amplatz wire was advanced into the fluid collection. The needle was removed, and an 8 Moldovan locking pigtail drain was advanced over the wire into the fluid collection and secured in place at the skin. 55 cc of turbid bilious fluid were aspirated and sent to the laboratory for evaluation. The patient tolerated the procedure well. FINDINGS: Initial CT demonstrates a large fluid collection. A small amount of gas is present in this collection in addition to pneumobilia within the left hepatic lobe. IMPRESSION: Successful placement of a CT-guided drain placement within a large fluid and gas collection within the right hepatic lobe. 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 Patient has had multiple gastrointestinal bleeds requiring weekly transfusions. Just 4-5 days ago patient was at [facility] having to or more abdominal shunts placed to further drain her chronic liver abscesses after presenting to [facility] emergency department with sepsis. She states after being discharged she had been feeling worse than her prior baseline in terms of generalized weakness and feeling unwell. She has been having intermittent epigastric abdominal pain which is typical for her chronic pain. She was transfused with 2 units of blood while at [facility] and transfused 2 units of blood 2 days ago. Patient denies any fever, chest pain, shortness of breath, nausea, vomiting, dysuria or cough. The patient continued to feel poorly and at [facility] she had her O2 sat checked and was found to be 70-80% and her blood pressure was low at less than 100 systolic this morning. Therefore the [facility] called 911 patient was brought to [facility] emergency room. The emergency room she was evaluated by Dr. Alvaro Dahl who found her hemoglobin to be 5.5 and her hematocrit to be only 17.7. A chest x-ray showed dense retrocardiac consolidation in keeping with pneumonia or aspiration. Therefore, a CT scan was ordered and showed "Status post placement of hepatic drain, however since the prior study dated 03/20/17 there is an enlarging intrahepatic fluid collection, suspicious for persistent abscess, just medial to the pigtail tip as measured above. There is persistence adjacent intrahepatic infiltrative edema and fluid. Please correlate clinically. Small to moderate bilateral pleural effusions with adjacent atelectasis. Cardiomegaly. Large uterine fibroid as before." Due to her complicated history and active GI bleeding the patient was admitted to the hospitalist service for further evaluation and treatment. # Gastrointestinal bleed secondary to hereditary hemorrhagic telangiectasia or HHT with acute blood loss anemia, present on admission. Active - Patient transfused 2 units of packed red blood cels on 04/11/17 - Patient transfused 2 units of packed red blood cels on 04/12/17 - advance to soft diet - Endoscopy done 04/11/17, no signs of active bleeding, continue monitoring - GI on board. 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 Active - Patient had recent internal biliary drains placed at [facility]. Films were reviewed by Dr. Sam it appears that the drain or drains need to be readjusted. - Patient still has an externalized hepatic drain in place, lower drain, monitor out put if less then 10 cc consider removing - IR drain reinsertion 04/11/17,now upper drain, monitor output and maintain in place - Patient has a history of sepsis secondary to VRE and Klebsiella. - abscess growing enterococus, sensitivities pending, continue with current antibiotics - abscess growing fungus, ID and sens pending - for now continue linezolid and ertapenem (day 9 in hospital) and await further direction from Infectious Disease. # Severe protein calorie malnutrition, present on admission with a BMI of 17.0 kg/m. Active - advance diet today further # Urinary fibroid mass, which is impinging on the colon resulting in constipation, present on admission. Active - Continue full liquid diet for now - Mineral oil enema given as an option, patient refuses - continue to monitor Disposition: -pcp is Denisha Baird MD -lives with unassisted [facility] Prophylaxis: Proton Pump Inhibitor VTE Prophylaxis: SCDs VTE Mechanical Devices: Intermittant Pneumatic CD, Venous Foot Pump Resuscitation Status: DNR/DNI:Do Not Resuscitate/Intubate Erika Benson MD Apr 14, 2017 15:09
[2017-04-14 16:55] VITALS: BP 112/72; PULSE 90; RESP 16; O2SAT 97
--- NOTE | 2017-04-14 18:42 | PROG NOTE ---
[address] [address] PROGRESS NOTE PATIENT: STEWART UREÑA : 1935 MR#: [id number] ADMIT: 04/05/2017 JOB ID: [id number] DATE: 04/14/2017 REASON FOR FOLLOWUP: Liver abscess. INTERVAL HISTORY: Over the weekend, the patient has felt relatively stable. She is very tired but has not had fevers or chills. She has not required any additional blood transfusions at least for the past couple of days. She has some drainage from the abdominal drain but not as brisk as she had hoped. PHYSICAL EXAMINATION: Reveals an afebrile woman. Temp 36.6, pulse 90, respiratory rate 16, blood pressure 112/72. She is saturating well on room air and in no obvious distress. She continues to be very pale. Lungs clear. Cardiac tones without new murmur. Right upper quadrant has two drains present with minimal tenderness. No abdominal distention. LABORATORIES: Include white blood count 4600. Creatinine less than 0.3. Urinalysis without white cells. Micro: There has been some confusion over the weekend as to what was growing from her latest hepatic aspirate. Originally, I was contacted by Micro and told that this was an Enterococcus now resistant to linezolid. This morning, I was told orally over the telephone that it was probably susceptible to linezolid, and I still await the final susceptibilities here in the computerized report. We do know that blood cultures are negative, and that the aspirate from the liver on April 10 has some Enterococcus in it as well as what appears to be yeast but no other organisms. IMAGING: No new imaging has been done since the CT scan of the when the drain was placed. IMPRESSION: This is an incredibly complicated and drawn out case of an unfortunate woman with hypertensive heart disease who has developed an infected biloma and/or hepatic liver abscess. She has now been on therapy literally for months and our most recent problem has been with inadequate drainage of the abscess, which is probably constantly being refilled with bile, as well as persistent isolation of VRE. The gram-negative rods that have been such a problem earlier seem to have been eliminated, as we have not grown any gram-negative rods in cultures now for almost one month since positive blood cultures on March 20. This situation is now further complicated, however, by the growth of yeast in the liver abscess and the possible development of a resistant enterococcus. RECOMMENDATIONS: 1. Will continue with linezolid and ertapenem at this time. 2. Ertapenem should probably continue at least through April 19 or so to finish one month of therapy for the E. coli from the blood on March 20. 3. The linezolid will unfortunately need to continue for an extended period if it is true that we have isolated a linezolid susceptible organism again. 4. Fluconazole will be added and I have asked the micro lab to check for fluconazole susceptibility in the isolated yeast.
[2017-04-14 19:58] VITALS: BP 128/75; PULSE 86; RESP 16; O2SAT 98
[2017-04-15] MEDS: HYDROmorphone 0.5 mg/0.5 mL iSecure Syringe IVPUSH PRN ×4 (05:29→20:21)
[2017-04-15 05:59] VITALS: BP 107/62; RESP 16; O2SAT 97
--- NOTE | 2017-04-15 07:01 | NUR ---
Abdominal Pain/Drainage Pt c/o right upper abdominal pain 6-7/10, Dilaudid 0.5mg IV givenx3 per pt requests, pain down to 3/10, tolerable. Drain at right upper abdomen flushed with NS 10ml at evening, putout sabine drainage, output 20ml/12hr after minus NS 10ML flush. Drain at right lower (old drain) flushed with NS 10ml at evening, put out green,thick purulent drainage, output 5ml/12hr after minus NS 10ML flush.
[2017-04-15] MEDS: Ertapenem Inj 1,000 MG in 0.9% Sodium Chloride 50 ML IV SCH (10:56)
[2017-04-15] MEDS: Pantoprazole 20 mg ER24 Tablet PO SCH ×2 (10:56→20:19)
[2017-04-15] MEDS: 0.9% Sodium Chloride 1,000 ML IV SCH (11:03)
[2017-04-15] MEDS: Polyethylene Glycol (PEG) 17 Gm Powder PO SCH (12:00)
--- NOTE | 2017-04-15 12:56 | PROG NOTE ---
[address] [address] PROGRESS NOTE PATIENT: STEWART UREÑA : 1935 MR#: [id number] ADMIT: 04/05/2017 JOB ID: [id number] DATE: 04/15/2017 INFECTIOUS DISEASE FOLLOW UP NOTE: REASON FOR FOLLOWUP: Complicated liver abscess. INTERVAL HISTORY: Overnight, the patient has been without fevers, chills or sweats. No significant cough or chest pain. Minimal right upper quadrant pain. She notes that the drainage from her two external drains into the liver abscess has really dropped off. PHYSICAL EXAMINATION: Reveals an afebrile, pale woman, temperature 36.2, pulse 86, respiratory rate 16, blood pressure 107/62. She is saturating well on room air and is in no acute distress. Eyes very pale. Lungs with clear breath sounds. Minimal right upper quadrant tenderness as before. Two external drains are present and have very little in the way of drainage. LABORATORIES: Include a white count of 4600 last checked two days ago. Creatinine was less than 0.3 two days ago. The culture from the recent placement of the new drain into the liver abscess is now available. Oddly this is growing a vancomycin susceptible penicillin resistant Enterococcus faecium. Note that we had many prior cultures from the liver abscess as well as from blood that grew vancomycin resistant Enterococcus faecium and this is clearly a different organism. IMPRESSION: This is an odd case of a woman with a very persistent liver abscess presumably secondary to ongoing biliary drainage into the liver. She seems to be somewhat improved overall clinically and our most recent drain was placed in the liver abscess about one week ago. After initially heavy drainage, it has dropped off considerably which would lead us to wonder whether or not the liver abscess may be substantially smaller at this time. Our most recent cultures have yielded enterococcus as well as a yeast, but the Enterococcus is different than the VRE she had previously and is now vanco susceptible. RECOMMENDATIONS: 1. I would reimage the patient's right upper quadrant with ultrasound with ultrasound and I have placed an order for that. 2. Will continue with our current antibiotics with a plan to continue through about one month of therapy with the ertapenem which is now nearing an end as well as continuing to use this very long course of linezolid for treatment of the Enterococcus. 3. The patient is currently on fluconazole for the yeast and we await susceptibilities. 4. Will continue to closely follow this patient with you.
[2017-04-15 14:08] VITALS: BP 120/68; PULSE 87; RESP 17; O2SAT 97
--- NOTE | 2017-04-15 15:33 | PCM.PNMED ---
Subjective Date of Service Apr 15, 2017 Subjective Patient is complaining of mild discomfort in the right upper quadrant. She has 2 drainages there. Exam Vital Signs Vital Sign - Last Date Time Temp Pulse Resp B/P Pulse Ox O2 Delivery O2 Flow Rate FiO2 04/15/17 14:08 36.4 87 17 120/68 97 04/15/17 13:47 Room Air Intake and Output 04/14/17 04/14/17 04/15/17 Cumulative From/Thru 15:00 23:00 07:00 04/05/17 11:37 - 04/15/17 05:59 Intake Total 817 ml 1012 ml 15160 ml Output Total 7 ml 475 ml 925 ml 9969 ml Balance -7 ml 342 ml 87 ml 1889 ml Intake Oral 160 ml 200 ml 4336 ml IV Total 657 ml 812 ml 6527 ml Packed Cells 995 ml Output Urine Total 475 ml 900 ml 9400 ml Emesis 325 ml Drainage Total 7 ml 25 ml 244 ml # Voids 6 # Bowel Movements 4 0 11 Exam PHYSICAL EXAM: GENERAL: Alert, not in distress, cooperative, weak, thin HEAD: atraumatic, normocephalic, no bruises. EYES: MAUREEN, EOMI, anicteric, able to fully open and close eyelids SKIN: Skin color normal, turgor normal. No visible rashes or lesions. EAR, NOSE, MOUTH, THROAT: Lips, oral mucosa, tongue gums, oropharynx are moist , pink, no lesions. Ears normal appearance, no lesions. NECK: no jugulovenous distention, no carotid bruits, carotid pulse normal contour, No carotid bruit, no enlarged lymph nodes appreciated; supple ROM normal. RESPIRATORY: Lungs clear to auscultation. Good diaphragmatic excursion. CARDIAC: normal S1 and S2; no rubs, murmurs, or gallops; regular rate and rhythm ABDOMEN: Abdomen soft, mildly tender in RUQ. BS normal. No masses or organomegaly. MUSCULOSKELETAL: ROM full, muscles are not tender EXTREMITIES: no pitting edema in LE, no new deformities or skin discoloration. NEURO: Alert, oriented X 3, Sensation grossly intact, Cranial nerves II-XII intact, Grossly normal motor function. PULSES: 2+ radial, 2+ carotid REVIEW OF SYSTEMS: GENERAL: no malaise, no fevers., SEE HPI HEENT: Negative for frequent or significant headaches All other reviewed and negative other than HPI. IVs and Medications Medications Reviewed: Medications were reviewed in detail Lab and Diagnostics Result Diagram: 04/13/17 0604/13/17 0620 Microbiology Urinalysis is unremarkable and culture is not indicated Blood cultures are pending X-Rays, CTs and MRIs PROCEDURE: X-RAY CHEST ONE VIEW, PORTABLE ([id number]) INDICATIONS: hypoxia TECHNIQUE: One view of the chest was acquired. COMPARISON: [facility], CR, XR CHEST 1VW (PORTABLE), 03/20/2017, 17: 34. FINDINGS: Surgical changes and devices: Surgical clips project in the right base of neck. There is a pigtail catheter projecting in the right upper quadrant. Lungs and pleura: Trace left pleural effusion. No right pleural effusion or pneumothorax. There is dense retrocardiac consolidation. Mediastinum: Mediastinal contours appear normal. Heart size is normal. Bones and chest wall: No suspicious bony lesions. Overlying soft tissues appear unremarkable. IMPRESSION: Dense retrocardiac consolidation in keeping with pneumonia or aspiration. Please correlate clinically. Trace left pleural effusion Dictated by: Andre Herring M.D. on 04/05/2017 at 12:33 Approved by: Andre Herring M.D. on 04/05/2017 at 12:34 PROCEDURE: CT CHEST, ABDOMEN AND PELVIS WITH CONTRAST ([id number]) INDICATIONS: SOB, ?pneumonia/effusion, f/u hepatic abscess TECHNIQUE: After the administration of intravenous contrast, 5 mm thick sections acquired from the lung apices to the symphysis. 5 mm coronal and sagittal reformats were performed, with additional 7 mm MIP reformats through the lungs. For radiation dose reduction, the following was used: automated exposure control, adjustment of mA and/or kV according to patient size. COMPARISON: [facility], CT, CT ABD PELVIS W CON, 03/20/2017, 19:02. FINDINGS: Image quality: Excellent. CHEST: Lungs and pleura: Small-moderate bilateral pleural effusions with adjacent atelectasis. Mediastinum: Heart size is enlarged. No pericardial effusion. No mediastinal or hilar adenopathy by size criteria. Thoracic aorta and central pulmonary arteries are normal in size. Esophagus is normal in caliber. No hiatal hernia. Chest wall: No axillary or supraclavicular adenopathy by size criteria. The right lobe of the thyroid is not well-seen. Left lobe unremarkable.. ABDOMEN: Solid organs: There is placement of pigtail catheter drain within the liver. As the prior study there is enlargement of a low collection adjacent to the drain which now measures 5.6 x 5.0 cm, previously 2.2 x 2.3 cm. There is adjacent ill- defined infiltrative edema. Main portal vein appears patent. There is an internal biliary stent as before. Pancreas and spleen grossly unremarkable. No definite adrenal nodule. Bilateral renal cortical thinning. No hydronephrosis. and spleen are normal in size and enhancement. Gallbladder not seen. Biliary system is non dilated. Pancreas enhances normally. No adrenal nodules. Kidneys demonstrate normal size and enhancement, without hydronephrosis. Peritoneum and bowel: Large amount of stool seen throughout the colon. No evidence of bowel obstruction. No free air. No free fluid. Nodes and vessels: No retroperitoneal or mesenteric adenopathy by size criteria. Aorta and inferior vena cava are normal in size. Miscellaneous: No ventral hernias. PELVIS: Genitourinary: Bladder wall thickness is normal. Redemonstration of large left -sided uterine fibroid with central calcification. Miscellaneous: No inguinal hernias or adenopathy. Bones: No suspicious bony lesions. No vertebral body compression fractures. IMPRESSION: Status post placement of hepatic drain, however since the prior study dated 03/20 there is an enlarging intrahepatic fluid collection, suspicious for persistent abscess, just medial to the pigtail tip as measured above. There is persistence adjacent intrahepatic infiltrative edema and fluid. Please correlate clinically. Small to moderate bilateral pleural effusions with adjacent atelectasis. Cardiomegaly. Large uterine fibroid as before. Dictated by: Andre Herring M.D. on 04/05/2017 at 18:39 Approved by: Andre Herring M.D. on 04/05/2017 at 18:55 Cardiac Echo Impressions Echocardiogram Report Name: STEWART UREÑA Graeme e: 02/05/2017 Height: 63 in Hospital Exam Location: [facility] Weight: 90 lb Gender: Female BSA: 1.4 m2 : 1935 Age: 81 yrs BP: 110/54 mmHg Reason For Study: Bacteremia Performed By: Corrie Jeffrey Referring Physician: ADALBERTO KELLEY Interpretation Summary The left ventricle is normal in size. Left ventricular systolic function is normal without focal wall motion abnormalities. The ejection fraction is estimated to be 60-65%. Assessment of diastolic parameters indicates normal left ventricular diastolic function and normal filling pressures. The right ventricle is normal in size and function. The right ventricular systolic pressure is estimated at 34 mmHg assuming a right atrial pressure of 3 mm Hg. The left atrium is mildly dilated. Right atrial size is normal. The aortic valve is trileaflet. The aortic valve opens well. There is no aortic regurgitation. There is very small filamentous strand at the tips of aortic leaflets. This is best seen on parasternal long axis views with inncreased magnification. Differential should include endocarditis or Lambl's excrescence. Given positive blood cultures, OLU is recommended. Other valves do not have any obvious evidence for endocarditis. The aortic root is mildly dilated. The ascending aorta is mildly enlarged. Moderate atherosclerotic plaque(s) in the aortic arch. Additional Diagnostics PROCEDURE: CT ABCESS DRAIN PERITONEAL INDICATIONS: CT guided abscess drain COMPARISON: [facility], CT, CT ABCESS DRAIN PERITONEAL, 12/17/2016, 13:58. Technique: 1. Sedation provided by the anesthesiology service. 2. CT guided abscess drain. The risks and the benefits of the procedure were discussed with the patient and her son, consent was obtained, and placed on the chart. The patient was placed in a supine position on the CT table. The appropriate area was prepped and draped in the usual sterile fashion. 1% lidocaine was used to anesthetize the skin over the area of interest. Under CT guidance, an 18 gauge Chiba needle was advanced into the hepatic fluid collection. The inner stylette was removed, and an Amplatz wire was advanced into the fluid collection. The needle was removed, and an 8 Maltese locking pigtail drain was advanced over the wire into the fluid collection and secured in place at the skin. 55 cc of turbid bilious fluid were aspirated and sent to the laboratory for evaluation. The patient tolerated the procedure well. FINDINGS: Initial CT demonstrates a large fluid collection. A small amount of gas is present in this collection in addition to pneumobilia within the left hepatic lobe. IMPRESSION: Successful placement of a CT-guided drain placement within a large fluid and gas collection within the right hepatic lobe. 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, [place] and on linezolid and ertapenem daily. 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 Patient has had multiple gastrointestinal bleeds requiring weekly transfusions. Just 4-5 days ago patient was at [facility] [place] having to or more abdominal shunts placed to further drain her chronic liver abscesses after presenting to [facility] emergency department with sepsis. She states after being discharged she had been feeling worse than her prior baseline in terms of generalized weakness and feeling unwell. She has been having intermittent epigastric abdominal pain which is typical for her chronic pain. She was transfused with 2 units of blood while at [facility] [place] and transfused 2 units of blood 2 days ago. Patient denies any fever, chest pain, shortness of breath, nausea, vomiting, dysuria or cough. The patient continued to feel poorly and at [facility] she had her O2 sat checked and was found to be 70-80% and her blood pressure was low at less than 100 systolic this morning. Therefore the [facility] called 911 patient was brought to [facility] emergency room. The emergency room she was evaluated by Dr. Alvaro Dahl who found her hemoglobin to be 5.5 and her hematocrit to be only 17.7. A chest x-ray showed dense retrocardiac consolidation in keeping with pneumonia or aspiration. Therefore, a CT scan was ordered and showed "Status post placement of hepatic drain, however since the prior study dated 03/20/17 there is an enlarging intrahepatic fluid collection, suspicious for persistent abscess, just medial to the pigtail tip as measured above. There is persistence adjacent intrahepatic infiltrative edema and fluid. Please correlate clinically. Small to moderate bilateral pleural effusions with adjacent atelectasis. Cardiomegaly. Large uterine fibroid as before." Due to her complicated history and active GI bleeding the patient was admitted to the hospitalist service for further evaluation and treatment. 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 [place]. Films were reviewed by Dr. aSm it appears that the drain or drains need to be readjusted. - Patient has a history of sepsis secondary to VRE and Klebsiella. - abscess growing enterococus, sensitivities pending, continue with current antibiotics - abscess growing fungus, ID and sens pending - IR drain reinsertion 04/11/17,now upper drain, monitor output and maintain in place Plan - Patient still has an externalized hepatic drain in place, lower drain, monitor out put if less then 10 cc consider removing - c/w antibiotics as per ID Severe protein calorie malnutrition, present on admission with a BMI of 17.0 kg/ m. Active - advance diet as tolerated Anemia of chronic disease - stable - continue to monitor Urinary fibroid mass, which is impinging on the colon resulting in constipation - stable Plan - Continue full liquid diet for now - Mineral oil enema given as an option, patient refuses - continue to monitor Disposition: -pcp is Denisha Baird MD -lives with unassisted [place] DVT PROPHYLAXIS: SCD Code status: I discussed with the patient code status, we talked in details about intubation, chest compressions, defibrillations, chemical code. All questions answered. Patient verbalized understanding. Patient would like to be full code . Patient/POA declined intubation, chest compressions, defibrillations and other electrical shocks, chemical code. Patient and family are aware that patient/POA may change code status at any time. Disposition: discharge in 1-3 days after patient improves. Labs, radiology tests reviewed. Plan of care, medication side effects, home medication, diagnostic procedures and available alternatives were discussed and reviewed with patient. All questions answered. Patient verbalized understanding, approved and agreed to plan of care. Given patient's current condition, I certify, in my opinion inpatient services greater than two midnights are medically necessary for this patient. GI Prophylaxis: Proton Pump Inhibitor VTE Prophylaxis: SCDs VTE Mechanical Devices: Intermittant Pneumatic CD Resuscitation Status: DNR/DNI:Do Not Resuscitate/Intubate Richi Ashby MD Apr 15, 2017 15:33
--- NOTE | 2017-04-15 18:00 | DRSVH ---
PROCEDURE: US ABDOMEN, LIMITED ([id number]) INDICATIONS: F/U liver abscess TECHNIQUE: Real-time focused scanning was performed of the abdomen, with image documentation. COMPARISON: None. FINDINGS: manufacturing engineering technologist notes a catheter not an abscess. I cannot appreciate the catheter a nd the relationship to the abscess on these images. A CT scan is needed to compared to the post imagi ng study to evaluate the abscess. IMPRESSION: Inconclusive imaging. Probable moderate-sized residual abscess estimated to be 4-5 cm in diameter at the relationship of the catheter can't be determined on this study. Dictated by: Aníbal Archuleta M.D. on 04/15/2017 at 17:53 Approved by: Aníbal Archuleta M.D. on 04/15/2017 at 17:59
--- NOTE | 2017-04-15 18:32 | NUR ---
Drainage upper drain put out 3ml of dark rust colored thin output after 10ml flush lower drain put out 3mL of dark green thick output after 10ml flush
[2017-04-15 20:42] VITALS: BP 105/59; PULSE 86; RESP 17; O2SAT 98
[2017-04-16] MEDS: HYDROmorphone 0.5 mg/0.5 mL iSecure Syringe IVPUSH PRN ×5 (01:11→20:43)
--- NOTE | 2017-04-16 02:05 | NUR ---
Nose Bleed slight nose bleed while using BSC. Stopped with a few minutes of pressure held with wash cloth and minimal drainage. Patient indicated "I think I just stood up too fast".
[2017-04-16] MEDS: 0.9% Sodium Chloride 1,000 ML IV SCH (03:50)
--- NOTE | 2017-04-16 05:56 | NUR ---
Drain Output 5cc from right upper hepatic drain = sabine/brown spotted color. 5cc from lower right hepatic drain = sabine/brown color with thick mucous at drainage opening.
[2017-04-16 05:57] VITALS: BP 105/64; PULSE 78; RESP 17; O2SAT 97
[2017-04-16] MEDS: Ertapenem Inj 1,000 MG in 0.9% Sodium Chloride 50 ML IV SCH (08:15)
[2017-04-16] MEDS: Pantoprazole 20 mg ER24 Tablet PO SCH ×2 (08:15→20:24)
[2017-04-16] MEDS: Polyethylene Glycol (PEG) 17 Gm Powder PO SCH (08:15)
[2017-04-16 08:57] LABS: Mean Corpuscular Hemoglobin 30.3 pg (27.0-35.0); Mean Corpuscular Volume 95.2 fL (81-100)
[2017-04-16 09:20] VITALS: BP 120/76; PULSE 76; RESP 16; O2SAT 96
--- NOTE | 2017-04-16 11:11 | PROG NOTE ---
[address] [address] PROGRESS NOTE PATIENT: STEWART UREÑA : 1935 MR#: [id number] ADMIT: 04/05/2017 JOB ID: [id number] DATE: 04/16/2017 INFECTIOUS DISEASE FOLLOWUP NOTE: REASON FOR FOLLOWUP: Polymicrobial liver abscess. INTERVAL HISTORY: Overnight, the patient reports minimal drainage out of her two external drains in her liver abscess. She denies any fevers, chills, or sweats and feels that she is somewhat more energetic than she has been for a couple days. No additional bleeding has been noted either. No respiratory difficulties. PHYSICAL EXAMINATION: Reveals a woman who is afebrile. Temp 36.3, pulse 76, respiratory rate 16, blood pressure 120/76, saturating well on room air. Her color appears a bit better, though she is still very pale. Oral cavity negative. Lungs relatively clear. Cardiac tones: Regular rate and rhythm. The abdomen is, of course, very thin, soft and without focal tenderness. There are two external drains that are draining very little. LABORATORIES: Include white count stable at 4700. Creatinine 0.3. The micro confusion has finally been resolved. Recall that when she was readmitted we initially heard that there could be a VRE. It was reported there was a vancomycin-susceptible enterococcus and now, we know that there are actually two separate species of Enterococcus faecium growing from the hepatic drain. One is vancomycin resistant, and one is a vancomycin susceptible. They are definitely different organisms. They were both susceptible to linezolid with an JOY of 2, and both resistant to penicillin and ampicillin. Additionally, Nisreen glabrata, two different strains apparently, are growing from the liver abscess. Blood cultures are negative. IMAGING: Includes the abdominal ultrasound I ordered yesterday. Unfortunately, the radiologist said it was a very difficult study to interpret, and they could not tell whether the liver abscess was bigger or smaller, nor could they tell if the drains were in their proper position. They recommended we get yet another CT scan. IMPRESSION: This continues to be a vexing case. This liver abscess process has been going on now for months with aggressive therapy, and we still have not resolved the abscess almost certainly because there is continuing bile drainage into the liver parenchyma in the area of the abscess. The most recent drain was placed about a week ago. Initially, there was very good output but both drains are now having minimal output, and I am concerned that we are no longer having any sort of effective drainage of this chronic problem. In terms of microbiology we have the two species of enterococci, which should be covered by the linezolid. We also have Nisreen glabrata, which we are treating tentatively with fluconazole while we await susceptibilities, and we continue to treat the patient with ertapenem for the gram-negative rods, which were initially isolated about a month ago. RECOMMENDATIONS: 1. CT of the right upper quadrant will be ordered. 2. Will continue with linezolid, ertapenem and fluconazole with a plan to stop the ertapenem in the next couple of days. 3. We await the susceptibilities on the nisreen from the [facility]. 4. This case discussed electronically at least with Dr. Sam of .
[2017-04-16 13:06] LABS: Mean Corpuscular Hemoglobin 30.2 pg (27.0-35.0); Mean Corpuscular Volume 95.2 fL (81-100)
[2017-04-16 13:28] VITALS: BP 145/73; PULSE 77; RESP 16; O2SAT 99
--- NOTE | 2017-04-16 14:03 | NUR ---
Social Work Note - Continued D/C plan INGOT BUGGY OPERATOR met with pt - pt's son Ernesto also in the room. INGOT BUGGY OPERATOR reviewed plan of care with pt and family - Pt verbalized understanding that she is waiting for test results, awaiting ID recommendations and Pt is hoping to have her drain pulled before d/c. Pt is willing to return to [facility]. Pt's son asked that MD consider a palliative care consult - He is concerned that she is unrealistic regarding her plan for recovery. INGOT BUGGY OPERATOR provided support, will discuss palliative care consult with MD and will continue to follow. Per Multidisciplinary rounds, pt will be hospitalized for another 1-2 days. Plan: Return to [facility] (A) [facility]
--- NOTE | 2017-04-16 15:04 | PCM.PNMED ---
Subjective Date of Service Apr 16, 2017 Subjective Patient is in the bed, sleepy. Exam Vital Signs Vital Sign - Last Date Time Temp Pulse Resp B/P Pulse Ox O2 Delivery O2 Flow Rate FiO2 04/16/17 13:28 36.7 77 16 145/73 99 Room Air Intake and Output 04/15/17 04/15/17 04/16/17 Cumulative From/Thru 15:00 23:00 07:00 04/05/17 11:37 - 04/16/17 06:00 Intake Total 1477 ml 895 ml 76506 ml Output Total 6 ml 820 ml 37277 ml Balance 1471 ml 75 ml 3435 ml Intake Oral 700 ml 200 ml 5236 ml IV Total 777 ml 695 ml 7999 ml Packed Cells 995 ml Output Urine Total 800 ml 10716 ml Emesis 325 ml Drainage Total 6 ml 20 ml 270 ml # Voids 3 9 # Bowel Movements 0 0 11 Exam PHYSICAL EXAM: GENERAL: not in distress HEAD: atraumatic, normocephalic EYES: EOMI, anicteric, able to fully open and close eyelids SKIN: Skin color normal, turgor normal. No visible rashes or lesions. EAR, NOSE, MOUTH, THROAT: Lips, oral mucosa are moist, pink, no lesions NECK: supple ROM normal. RESPIRATORY: Lungs clear to auscultation. Good diaphragmatic excursion. CARDIAC: normal S1 and S2; no rubs, murmurs, or gallops; regular rhythm ABDOMEN: Abdomen soft, non-tender. BS normal MUSCULOSKELETAL: ROM full, muscles are not tender EXTREMITIES: no pitting edema in LE, no new deformities or skin discoloration. NEURO: Alert, oriented X 2, Cranial nerves II-XII intact, Grossly normal motor function. PULSES: 2+ radial, 2+ carotid REVIEW OF SYSTEMS: GENERAL: no malaise, no fevers., SEE HPI HEENT: Negative for frequent or significant headaches All other reviewed and negative other than HPI. Lab and Diagnostics Result Diagram: 04/16/17 1300 04/16/17 0845 Microbiology Urinalysis is unremarkable and culture is not indicated Blood cultures are pending X-Rays, CTs and MRIs PROCEDURE: X-RAY CHEST ONE VIEW, PORTABLE ([id number]) INDICATIONS: hypoxia TECHNIQUE: One view of the chest was acquired. COMPARISON: [facility], CR, XR CHEST 1VW (PORTABLE), 03/20/2017, 17: 34. FINDINGS: Surgical changes and devices: Surgical clips project in the right base of neck. There is a pigtail catheter projecting in the right upper quadrant. Lungs and pleura: Trace left pleural effusion. No right pleural effusion or pneumothorax. There is dense retrocardiac consolidation. Mediastinum: Mediastinal contours appear normal. Heart size is normal. Bones and chest wall: No suspicious bony lesions. Overlying soft tissues appear unremarkable. IMPRESSION: Dense retrocardiac consolidation in keeping with pneumonia or aspiration. Please correlate clinically. Trace left pleural effusion Dictated by: Andre Herring M.D. on 04/05/2017 at 12:33 Approved by: Andre Herring M.D. on 04/05/2017 at 12:34 PROCEDURE: CT CHEST, ABDOMEN AND PELVIS WITH CONTRAST ([id number]) INDICATIONS: SOB, ?pneumonia/effusion, f/u hepatic abscess TECHNIQUE: After the administration of intravenous contrast, 5 mm thick sections acquired from the lung apices to the symphysis. 5 mm coronal and sagittal reformats were performed, with additional 7 mm MIP reformats through the lungs. For radiation dose reduction, the following was used: automated exposure control, adjustment of mA and/or kV according to patient size. COMPARISON: [facility], CT, CT ABD PELVIS W CON, 03/20/2017, 19:02. FINDINGS: Image quality: Excellent. CHEST: Lungs and pleura: Small-moderate bilateral pleural effusions with adjacent atelectasis. Mediastinum: Heart size is enlarged. No pericardial effusion. No mediastinal or hilar adenopathy by size criteria. Thoracic aorta and central pulmonary arteries are normal in size. Esophagus is normal in caliber. No hiatal hernia. Chest wall: No axillary or supraclavicular adenopathy by size criteria. The right lobe of the thyroid is not well-seen. Left lobe unremarkable.. ABDOMEN: Solid organs: There is placement of pigtail catheter drain within the liver. As the prior study there is enlargement of a low collection adjacent to the drain which now measures 5.6 x 5.0 cm, previously 2.2 x 2.3 cm. There is adjacent ill- defined infiltrative edema. Main portal vein appears patent. There is an internal biliary stent as before. Pancreas and spleen grossly unremarkable. No definite adrenal nodule. Bilateral renal cortical thinning. No hydronephrosis. and spleen are normal in size and enhancement. Gallbladder not seen. Biliary system is non dilated. Pancreas enhances normally. No adrenal nodules. Kidneys demonstrate normal size and enhancement, without hydronephrosis. Peritoneum and bowel: Large amount of stool seen throughout the colon. No evidence of bowel obstruction. No free air. No free fluid. Nodes and vessels: No retroperitoneal or mesenteric adenopathy by size criteria. Aorta and inferior vena cava are normal in size. Miscellaneous: No ventral hernias. PELVIS: Genitourinary: Bladder wall thickness is normal. Redemonstration of large left -sided uterine fibroid with central calcification. Miscellaneous: No inguinal hernias or adenopathy. Bones: No suspicious bony lesions. No vertebral body compression fractures. IMPRESSION: Status post placement of hepatic drain, however since the prior study dated 03/20 there is an enlarging intrahepatic fluid collection, suspicious for persistent abscess, just medial to the pigtail tip as measured above. There is persistence adjacent intrahepatic infiltrative edema and fluid. Please correlate clinically. Small to moderate bilateral pleural effusions with adjacent atelectasis. Cardiomegaly. Large uterine fibroid as before. Dictated by: Andre Herring M.D. on 04/05/2017 at 18:39 Approved by: Andre Herring M.D. on 04/05/2017 at 18:55 Cardiac Echo Impressions Echocardiogram Report Name: STEWART UREÑA Graeme e: 02/05/2017 Height: 63 in Hospital Exam Location: [facility] Weight: 90 lb Gender: Female BSA: 1.4 m2 : 1935 Age: 81 yrs BP: 110/54 mmHg Reason For Study: Bacteremia Performed By: Corrie Jeffrey Referring Physician: ADALBERTO KELLEY Interpretation Summary The left ventricle is normal in size. Left ventricular systolic function is normal without focal wall motion abnormalities. The ejection fraction is estimated to be 60-65%. Assessment of diastolic parameters indicates normal left ventricular diastolic function and normal filling pressures. The right ventricle is normal in size and function. The right ventricular systolic pressure is estimated at 34 mmHg assuming a right atrial pressure of 3 mm Hg. The left atrium is mildly dilated. Right atrial size is normal. The aortic valve is trileaflet. The aortic valve opens well. There is no aortic regurgitation. There is very small filamentous strand at the tips of aortic leaflets. This is best seen on parasternal long axis views with inncreased magnification. Differential should include endocarditis or Lambl's excrescence. Given positive blood cultures, OLU is recommended. Other valves do not have any obvious evidence for endocarditis. The aortic root is mildly dilated. The ascending aorta is mildly enlarged. Moderate atherosclerotic plaque(s) in the aortic arch. Additional Diagnostics PROCEDURE: CT ABCESS DRAIN PERITONEAL INDICATIONS: CT guided abscess drain COMPARISON: [facility], CT, CT ABCESS DRAIN PERITONEAL, 12/17/2016, 13:58. Technique: 1. Sedation provided by the anesthesiology service. 2. CT guided abscess drain. The risks and the benefits of the procedure were discussed with the patient and her son, consent was obtained, and placed on the chart. The patient was placed in a supine position on the CT table. The appropriate area was prepped and draped in the usual sterile fashion. 1% lidocaine was used to anesthetize the skin over the area of interest. Under CT guidance, an 18 gauge Chiba needle was advanced into the hepatic fluid collection. The inner stylette was removed, and an Amplatz wire was advanced into the fluid collection. The needle was removed, and an 8 Macedonian locking pigtail drain was advanced over the wire into the fluid collection and secured in place at the skin. 55 cc of turbid bilious fluid were aspirated and sent to the laboratory for evaluation. The patient tolerated the procedure well. FINDINGS: Initial CT demonstrates a large fluid collection. A small amount of gas is present in this collection in addition to pneumobilia within the left hepatic lobe. IMPRESSION: Successful placement of a CT-guided drain placement within a large fluid and gas collection within the right hepatic lobe. 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 Patient has had multiple gastrointestinal bleeds requiring weekly transfusions. Just 4-5 days ago patient was at [facility] having to or more abdominal shunts placed to further drain her chronic liver abscesses after presenting to [facility] emergency department with sepsis. She states after being discharged she had been feeling worse than her prior baseline in terms of generalized weakness and feeling unwell. She has been having intermittent epigastric abdominal pain which is typical for her chronic pain. She was transfused with 2 units of blood while at [facility] and transfused 2 units of blood 2 days ago. Patient denies any fever, chest pain, shortness of breath, nausea, vomiting, dysuria or cough. The patient continued to feel poorly and at [facility] she had her O2 sat checked and was found to be 70-80% and her blood pressure was low at less than 100 systolic this morning. Therefore the [facility] called 911 patient was brought to [facility] emergency room. The emergency room she was evaluated by Dr. Alvaro Dahl who found her hemoglobin to be 5.5 and her hematocrit to be only 17.7. A chest x-ray showed dense retrocardiac consolidation in keeping with pneumonia or aspiration. Therefore, a CT scan was ordered and showed "Status post placement of hepatic drain, however since the prior study dated 03/20/17 there is an enlarging intrahepatic fluid collection, suspicious for persistent abscess, just medial to the pigtail tip as measured above. There is persistence adjacent intrahepatic infiltrative edema and fluid. Please correlate clinically. Small to moderate bilateral pleural effusions with adjacent atelectasis. Cardiomegaly. Large uterine fibroid as before." Due to her complicated history and active GI bleeding the patient was admitted to the hospitalist service for further evaluation and treatment. Gastrointestinal bleed secondary to hereditary hemorrhagic telangiectasia (HHT) with acute blood loss anemia - Hb is low again today. 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 Films were reviewed by Dr. Sam it appears that the drain or drains need to be readjusted. - Patient has a history of sepsis secondary to VRE and Klebsiella. - abscess growing enterococus, fungus - IR drain reinsertion 8/4/17,now upper drain, monitor output and maintain in place - US Inconclusive imaging. Probable moderate-sized residual abscess estimated to be 4-5 cm in diameter at the relationship of the catheter can't be determined on this study. Plan - Patient still has an externalized hepatic drain in place, lower drain, monitor out put if less then 10 cc consider removing - c/w antibiotics as per ID - CT abdomen Severe protein calorie malnutrition, present on admission with a BMI of 17.0 kg/ m. Active - advance diet as tolerated Anemia of chronic disease - stable - continue to monitor Urinary fibroid mass, which is impinging on the colon resulting in constipation - stable Plan - Continue full liquid diet for now - Mineral oil enema given as an option, patient refuses - continue to monitor Disposition: -pcp is Denisha Baird MD -lives with unassisted [place] DVT PROPHYLAXIS: SCD Disposition: discharge in 1-3 days after patient improves. Labs, radiology tests reviewed. Plan of care, medication side effects, home medication, diagnostic procedures and available alternatives were discussed and reviewed with patient. All questions answered. Patient verbalized understanding, approved and agreed to plan of care. Given patient's current condition, I certify, in my opinion inpatient services greater than two midnights are medically necessary for this patient. GI Prophylaxis: Proton Pump Inhibitor VTE Prophylaxis: SCDs VTE Mechanical Devices: Intermittant Pneumatic CD Resuscitation Status: DNR/DNI:Do Not Resuscitate/Intubate Richi Ashby MD Apr 16, 2017 15:04
--- NOTE | 2017-04-16 15:20 | NUR ---
NUTRITION FOLLOW UP: Assess: 81 YO Female admitted for symptomatic anemia, PNA and VRE. Pt had new drains placed with significant output after placement, but per notes, output appears to be minimal again. Pt po intake varies between 10-100% of meals. Family may be considering palliative consult per notes. PMHx: Ulcerated gastroesophageal junction, Irregular gastroesophageal junction, Gastric and duodenal hereditary hemorrhagic telangiectasia, Hypothyroid, malnutrition, uterine fibroid. LABS: Reviewed. MEDICATIONS: Reviewed. DIET: Soft, Ensure clear all trays. PO 10-100% GI: BM x 4 (04/14) SKIN: Visible muscle/fat loss in face and arms. ANTHROPOMETRICS: Current wt: 42.1 kg. IBW: 52.3 kg. UBW (November): 54 kg. BMI: 17.0 ESTIMATED NEEDS: Malnutrition/Wt gain Calories: 0322-3214 (30-35 kcal/kg BW) Protein: 65-80 g/day (1.2-1.5 g/kg IBW) NUTRITION DIAGNOSIS: 1.) Severe pro/kcal malnutrition related to chronic illness as evidenced by variable wt, visible loss of LBM/ fat, BMI of 17.0-kg--- PERSISTS. INTERVENTION: 1) Continue Ensure CL on all trays per pt preference on previous admits. 2) Pt has had high kcal/pro diet education on numerous occasions during previous admits. MONITOR/EVALUATE: PO intake, labs, weights, GI/nutrition status. Follow per moderate nutrition risk guidelines.
[2017-04-16] MEDS ORDERED: CYAN500T53 SL (16:41)
[2017-04-16] MEDS ORDERED: NOLVADEX PO (16:41)
[2017-04-16] MEDS ORDERED: ACET325T51 PO (16:41)
[2017-04-16] MEDS ORDERED: LACT1CAP65 PO (16:41)
[2017-04-16 17:25] VITALS: BP 140/80; PULSE 81; RESP 16
[2017-04-16] MEDS: 0.9% Sodium Chloride 250 ML IV SCH (17:25)
--- NOTE | 2017-04-16 17:46 | PROG NOTE ---
[address] [address] PROGRESS NOTE PATIENT: STEWART UREÑA : 1935 MR#: [id number] ADMIT: 04/05/2017 JOB ID: [id number] DATE: 04/16/2017 SUBJECTIVE: Hemoglobin was low today but it remains stable at 7.6. She has been offered another unit of blood. BUN is 9. Afebrile. She has had minimal drainage recorded in both drains over the last 24 hours. I think the drainage of 23 mL and 8 mL in the two bags respectively look like they were probably recorded in the wrong row. At any rate, it does not look like the older drain is putting out for very much at all. Repeat CAT scan was accomplished today and really to my eye does not show a significant decrease in the size of the left hepatic lobe abscess cavity that has a significant amount of air within the cavity itself. This suggests that there is significant loculation and that she is not really draining much fluid percutaneously. OBJECTIVE: The patient is conversational, in no distress. Blood pressure 145/73, pulse 77, temperature 36.7, breathing 16, 99% on room air. LABORATORY DATA: Hemoglobin as above. White count normal. BUN 9, creatinine 0.3. CAT scan: I reviewed the images personally and briefly touched base with Dr. Cardozo in Radiology. ASSESSMENT AND RECOMMENDATIONS: An 81-year-old female with hereditary hemorrhagic telangiectasia, refractory anemia requiring regular transfusion. The patient does not have any active hemorrhage at present that would seem to demand endoscopic intervention. The intrahepatic infected refractory bilomas are multiloculated and clearly very difficult to manage at this point. She remains on antibiotic and VRE is once again growing in the fluid. There is also a vancomycin sensitive strain, along with a species of Nisreen. Antibiotic management is being managed by Dr. Webber. Overall the patient seems to be reasonably stable, all things considered. She continues to need physical therapy and I have encouraged her to maintain as robust a diet as she can muster. I briefly touched base with Dr. Cardozo about Gelfoam slurry. This has been used in a case series for refractory bilomas and bile leaks. He did not have any experience with this and recommended I touch base with Dr. Joel when she is here tomorrow.
[2017-04-16 17:48] VITALS: BP 124/62; PULSE 79; RESP 16
[2017-04-16 20:33] VITALS: BP 144/79; PULSE 89; RESP 16
[2017-04-17] MEDS: HYDROmorphone 0.5 mg/0.5 mL iSecure Syringe IVPUSH PRN ×3 (00:43→09:29)
[2017-04-17 04:57] VITALS: BP 125/66; PULSE 74; RESP 16; O2SAT 95
--- NOTE | 2017-04-17 06:38 | NUR ---
Hepatic Drain output Drain 1 output 5cc green/brown thick mucous consistency Drain 2 output 30cc red/brown thin consistency
[2017-04-17 07:26] LABS: BASOPHILS % (AUTO) 0.5 % (0-3); EOSINOPHILS % (AUTO) 2.9 % (0-5); MONOCYTES % (AUTO) 9.5 % (4-12); Mean Corpuscular Hemoglobin 30.5 pg (27.0-35.0); Mean Corpuscular Volume 93.1 fL (81-100); NEUTROPHILS % (AUTO) 71.2 % (40-74); Platelet Count 252 bil/L (150-400)
[2017-04-17] MEDS: Polyethylene Glycol (PEG) 17 Gm Powder PO SCH (08:30)
[2017-04-17] MEDS: Pantoprazole 20 mg ER24 Tablet PO SCH ×2 (09:27→21:34)
[2017-04-17] MEDS: Ertapenem Inj 1,000 MG in 0.9% Sodium Chloride 50 ML IV SCH (09:28)
--- NOTE | 2017-04-17 12:26 | PROG NOTE ---
[address] [address] PROGRESS NOTE PATIENT: STEWART UREÑA : 1935 MR#: [id number] ADMIT: 04/05/2017 JOB ID: [id number] DATE: 04/17/2017 INFECTIOUS DISEASE FOLLOWUP NOTE: REASON FOR FOLLOWUP: Polymicrobial liver abscess. INTERVAL HISTORY: The patient reports no ongoing fevers, chills, or sweats. No significant cough. She continues to have mild right-sided abdominal pain. PHYSICAL EXAMINATION: Reveals an afebrile woman. Temp 36.8, pulse 74, respiratory rate 16, blood pressure 125/66. She is saturating well on room air and in no acute distress. Still very pale as always, though she looks a bit more energetic today. Oral cavity negative. Lungs clear. Cardiac tones without new murmur. A right upper quadrant drain is in good position. The remainder of the abdomen is benign. LABORATORIES: Include white count 4200 with normal differential. Creatinine less than 0.3. Urinalysis with 0-5 white cells. Micro studies include the culture from the abscess on April 10 when the new drain was placed. That is growing a combination of two different enterococci. Both are enterococcus. PCM1 is a vancomycin resistant and one is vancomycin susceptible. They were both susceptible, fortunately, to linezolid. Additionally, we are growing Nisreen glabrata, and I have asked that to be sent to the [facility] for susceptibilities, and those susceptibilities are, in fact, still pending. IMAGING: Today, I reviewed on the view screen by my eye yesterday's abdominal CT is very similar to one done on April 10 except there is a new drain present, of course, since April 10 when a new drain was placed. There was not been much decrease in the size of the liver abscess which is discouraging. IMPRESSION: This patient continues to have a polymicrobial liver abscess. We have treated this aggressively now for months and with multiple drainage procedures, as well as stenting of the biliary tree and exterior drains and yet, it persists. One would think there is still ongoing leakage from the biliary tree into this right upper quadrant process. RECOMMENDATIONS: 1. We can go ahead and stop the ertapenem as of tomorrow, as we will basically finish a month, and our most recent cultures did not show any enteric gram-negative rods, nor any anaerobes. 2. Will continue with linezolid for the foreseeable future. The patient has been on linezolid way too long at this point but so far has not suffered any overt toxicity, and we have little else to offer for this VRE in her liver abscess which is borderline susceptible, at best, to daptomycin. 3. Will continue with fluconazole 200 a day at this point while we await susceptibilities from the [facility]. I hope that this will prove to be a susceptible strain, so the patient can be on all oral regimen. 4. I note that Dr. Sam is exploring other mechanical options to help treat this process.
[2017-04-17 12:29] VITALS: BP 134/78; PULSE 96; RESP 16; O2SAT 94
--- NOTE | 2017-04-17 13:46 | NUR ---
Hepatic Drains x 2/Dressing Changes Scant amount of drainage from drains. Currently, roughly equal amounts of 5-10cc thick, brown drainage. Irrigated w/ 15cc NS each, able to pull back concentrated brown discharge. Flushed distal portion from stop cock to clear any possible obstructions, once both ends were irrigated, scant amount of drainage into the bag. Dr. Peck asked about a JOSH for light suction of contents d/t scant amount of drainage. Bags placed to gravity vs on the bed to see if drainage increases. Old dressings removed, no dressing change since 04/08, site #1 macerated & red, moderate amount of purulent drainage on old dressing, cleaned w/ NS & sterile gauze, applied calmoseptine to reddened area, covered w/ gauze & hypafix tape. Site #2's primary dressing remains intact, cleaned around dressing, reinforced w/ 2 inch paper tape.
--- NOTE | 2017-04-17 13:59 | NUR ---
Pain Medication/Narcotics Report from NOC RN that patient sets her alarm for Dilaudid 0.5mg IV q4h. Patient appeared at rest & comfortable when requesting Dilaudid in a.m., c/o 5/10 right sided abdominal pain (near hepatic drain sites), asked her what she usually takes at home for pain, stated "tylenol". Patient getting prepped for discharged, Md asked about discontinuing IV narcotics & ordering something different, dilaudid has since been d/c'd, Tylenol ordered. Patient currently appears comfortable.
[2017-04-17] MEDS: 0.9% Sodium Chloride 250 ML IV SCH (14:20)
--- NOTE | 2017-04-17 14:32 | PROG NOTE ---
[address] [address] PROGRESS NOTE PATIENT: STEWART UREÑA : 1935 MR#: [id number] ADMIT: 04/05/2017 JOB ID: [id number] DATE: 04/17/2017 SUBJECTIVE: The patient is an 81-year-old woman with hereditary hemorrhagic telangiectasias. She has frequent gastrointestinal bleeding. She has had multiple recent hospitalizations for transfusion support and for management of a right liver abscess. Most recently, she was hospitalized on April 05, 2017, with hypoxia and hypotension. She has a VRE-positive hepatic abscess with two stents, which were placed at [facility]. She has been on linezolid and ertapenem daily. She questions whether estrogen therapy with tamoxifen might provide some relief of her hereditary hemorrhagic telangiectasia, and potentially reduce the risk of bleeding. OBJECTIVE: Vitals: T 36.8, P 96, R 16, BP 134/78, O2 saturation 94% on room air. Performance status 2. HEENT: Conjunctivae pale. Mucous membranes slightly dry. No oral lesions. Nodes: No adenopathy in the neck or axillae. Chest: Clear. No wheezes or crackles. Cardiac exam: Regular rate and rhythm with normal S1, S2. A 1/6 systolic ejection murmur across the precordium. Abdomen: Soft, nontender. Mild tenderness in the right upper quadrant. She has two drains with green fluid. Extremities: Extensive muscular wasting, 1+ distal pulses. No calf tenderness. LABORATORIES: WBC 5.3, hemoglobin 9.8, hematocrit 29.8%, platelets 371,000. BUN 8, creatinine less than 0.3, glucose 81. ASSESSMENT AND PLAN: 1. Hereditary hemorrhagic telangiectasia: The patient has had gastrointestinal blood loss requiring frequent packed red blood cell transfusions. She has had no evidence of iron overload, likely due to blood loss. I believe she could benefit from tamoxifen 20 mg by mouth daily, which should be initiated. Given her frequent need for IV fluids and blood products, I also believe she would benefit from placement of a Port-A-Cath. Dr. Moncada has been consulted to arrange this procedure in the near future. If discharged, please arrange [facility] for weekly CBC, differential and platelets, with transfusions, if clinically indicated. 2. Right liver abscess: The patient has vancomycin-resistant enterococcus and klebsiella. She remains on broad-spectrum antibiotic coverage. Continue to monitor with Dr. Webber and the Infectious Disease team.
--- NOTE | 2017-04-17 18:39 | NUR ---
Hepatic Drains x 2 Dr. Sam paged @ 2023 to ask about brown viscous, chunky drainage that doesn't appear to me draining passively by gravity. Want to ask Md if we should be aspirating from port or attach to suction bulb vs having it attached to gravity. Lumen of drain #2 is very small. Drainage for shift: #1-25cc #2-none Plan to pass on to NOC RN to pass on to day shift RN for tomorrow if Md doesn't call back.
[2017-04-17 22:43] VITALS: BP 133/67; PULSE 75; RESP 16; O2SAT 95
--- NOTE | 2017-04-18 00:22 | PROG NOTE ---
[address] [address] PROGRESS NOTE PATIENT: STEWART UREÑA : 1935 MR#: [id number] ADMIT: 04/05/2017 JOB ID: [id number] DATE: 04/17/2017 SUBJECTIVE: The patient has been eating okay. She took a dose of MiraLAX for feeling slightly more constipated today. She has been afebrile. Drainage yesterday was 10 cc per drain; today 30 cc per drain. The patient reports that nursing is flushing her drain on a regular basis. I spoke with Dr. Joel earlier today about Gelfoam slurry application and the prospect of trying this in the patient's case. She is going to review the literature, which is rather scant on that score. Overall, Dr. Joel did feel that the larger abscess cavity with the more recently placed drain does appears smaller than before. The patient was concerned that today she seemed to take a step back from a physical therapy standpoint and noticed fairly significantly increased bilateral weakness when attempting to stand and walk with the physical therapist on hand. OBJECTIVE: Vital signs are stable. Patient conversational. The older drain continues to put out bilious colored fluid. The more recently placed, a rust, slightly viscous appearing fluid. LABORATORIES: Hemoglobin 8.46, BUN 8, creatinine 0.30. 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 No sign of any active high volume hemorrhage at present. 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 At present, both drains appear to still be intermittently putting out greater than 10 cc. The more dated drain that is putting out the green bilious appearing fluid could conceivably be removed soon if she is consistently putting out 10 cc or less. As far as the other drain in association with the much larger approximately 7 cm cavity, this will obviously take much longer to shrink and it is being considered by Dr. Joel as to whether or not the Gelfoam slurry may be an option to expedite resolution here. The drains, both of them, should be flushed every 8 hours to ensure they remain patent. If there are any questions on that score, please contact the Radiology Department for further instruction. Additionally, the flushed fluid should not be included in the output totals. Further workup for her weakness with standing will be as per her primary team. She has expressed some concern, and I think rightly so, as to whether or not one of the medications could be causing a problem. It raises the issue as to whether she is developing some form of a peripheral neuropathy. I will be leaving the area tomorrow. Dr. Zhang will be rail transportation tabeler for GI through the weekend for any acute concerns or questions. I am available by cell phone at [phone] if there are any questions or concerns as well. If the patient is able to be discharged with mcc support this coming week, I would like to see her in my clinic in the week that I return to the area.
--- NOTE | 2017-04-18 06:38 | NUR ---
Hepatic Drains #1 30cc thin with brown coloration #2 5cc thick mucous brown/green coloration
[2017-04-18 07:25] LABS: BASOPHILS % (AUTO) 0.5 % (0-3); EOSINOPHILS % (AUTO) 3.3 % (0-5); MONOCYTES % (AUTO) 11.2 % (4-12); Mean Corpuscular Volume 93.8 fL (81-100); NEUTROPHILS % (AUTO) 69.4 % (40-74); Platelet Count 289 bil/L (150-400)
[2017-04-18] MEDS: Pantoprazole 20 mg ER24 Tablet PO SCH ×2 (08:39→21:14)
[2017-04-18] MEDS: Polyethylene Glycol (PEG) 17 Gm Powder PO SCH (08:39)
[2017-04-18] MEDS: Ertapenem Inj 1,000 MG in 0.9% Sodium Chloride 50 ML IV SCH (08:40)
--- NOTE | 2017-04-18 09:25 | NUR ---
FERDINAND signed SOHAN Kim
--- NOTE | 2017-04-18 10:48 | NUR ---
Called and left message for Radha Castillo CM at [facility] and let her know patient likely to discharge today and I would need her to review patient for residential transfer. Updated DIRECTOR OF TRAINING Addendum: 04/18/17 at 1321 by JOSI SKY CM Alhaji Castillo approved patient for transfer to [facility]
[2017-04-18 12:38] VITALS: BP 125/69; PULSE 78; RESP 16; O2SAT 97
--- NOTE | 2017-04-18 17:41 | PROG NOTE ---
[address] [address] PROGRESS NOTE PATIENT: STEWART UREÑA : 1935 MR#: [id number] ADMIT: 04/05/2017 JOB ID: [id number] INFECTIOUS DISEASE FOLLOWUP: DATE: 04/18/2017 REASON FOR FOLLOWUP: Polymicrobial liver abscess. INTERVAL HISTORY: The patient feels a bit better today though she is disappointed in that she will not be able to be discharged. She told me about the discussions regarding possible use of Gelfoam in an attempt to ameliorate her liver abscess/biloma issues. The patient has no fevers, chills, or sweats. No cough, and no particular abdominal pain. PHYSICAL EXAMINATION: Reveals an afebrile woman. Temp 36.4, pulse 78, respiratory rate 16, blood pressure 125/69. She is saturating 97% on room air. She is in no acute distress and looks about at her baseline or a little better today. She remains quite pale of course. Her lungs are clear. Cardiac tones without new murmur. Abdomen soft and nontender. Two drains are present in the right upper quadrant; one of which has considerable drainage, the other almost none. LABORATORY DATA: Labs include white count 3900, platelet count hanging in there at 289. Creatinine less than 0.3. The final susceptibilities on the Nisreen glabrata are now available. This was cultured from the liver when the last drain was placed. It is susceptible to ampho with an JOY of 1, very susceptible to micafungin with an JOY of 0.03. It is borderline but susceptible to fluconazole with an JOY of 8. This is considered dose dependent susceptibility in that one needs to use a higher dose in this situation. Recall that April 10 abscess drainage also grew two species of Enterococcus faecium, one vanc susceptible, one vanc resistant. IMPRESSION: This is an unfortunate patient with a persistent liver abscess which is now growing two species of Enterococcus faecium as well as Nisreen glabrata. We have not grown any anaerobes or gram negative rods recently which is good but she remains with this very significant abscess. The notes from other services were reviewed. The GI application consultant, Dr. Sam, has offered recommendations for flushing of the drains and also brought up the possibility of using Gelfoam to help to shrink the abscess. This is under discussion with Dr. Joel of Interventional Radiology. RECOMMENDATIONS: 1. We can continue with fluconazole as the primary treatment for the Nisreen albicans isolated from her liver abscess but we will need a somewhat higher dose. The current dose is 200 a day and will edit that to 300 a day given the patient's small size with plans to check a fluconazole level going forward after we reach steady state. 2. Will continue with linezolid for the enterococci as we have little else to use. 3. The ertapenem as been discontinued. Will continue to closely follow this patient with you.
--- NOTE | 2017-04-18 17:50 | NUR ---
Hepatic drain Patient has two hepatic drains draining to gravity. Day shift total for Hepatic drain #1, 10cc thin brown drainage with specks of thicker drainage was emptied from drain. Day shift total for Hepatic drain #2, 5cc of purulent brownish/green drainage emptied out of drain(thick enough to be difficult to empty out of drain). Both drains were flushed with 10cc of NS.
--- NOTE | 2017-04-18 20:15 | PCM.PNMED ---
Subjective Date of Service Apr 18, 2017 Subjective Patient seen and examined. No complaints at this point. Vitals stable. Exam Vital Signs Vital Sign - Last Date Time Temp Pulse Resp B/P Pulse Ox O2 Delivery O2 Flow Rate FiO2 04/18/17 12:38 36.4 78 16 125/69 97 Room Air Intake and Output 04/17/17 04/17/17 04/18/17 Cumulative From/Thru 15:00 23:00 07:00 04/05/17 11:37 - 04/18/17 06:59 Intake Total 701 ml 400 ml 75683 ml Output Total 875 ml 1980 ml 62617 ml Balance -174 ml -1580 ml 1828 ml Intake Oral 701 ml 400 ml 6877 ml IV Total 8531 ml Packed Cells 1295 ml Output Urine Total 850 ml 1950 ml 52499 ml Emesis 325 ml Drainage Total 25 ml 30 ml 360 ml # Voids 9 # Bowel Movements 11 Exam GENERAL: not in distress EYES: EOMI, anicteric, able to fully open and close eyelids RESPIRATORY: Lungs clear to auscultation. Good diaphragmatic excursion. CARDIAC: normal S1 and S2; no rubs, murmurs, or gallops; regular rhythm ABDOMEN: Abdomen soft, non-tender. BS normal. Drains in place, draining well. MUSCULOSKELETAL: ROM full, muscles are not tender EXTREMITIES: no pitting edema in LE, no new deformities or skin discoloration. NEURO: Alert, oriented X 2, Cranial nerves II-XII intact, Grossly normal motor function. Lab and Diagnostics Result Diagram: 04/18/17 0642 04/18/17 0642 Microbiology Urinalysis is unremarkable and culture is not indicated Blood cultures are pending X-Rays, CTs and MRIs PROCEDURE: X-RAY CHEST ONE VIEW, PORTABLE ([id number]) INDICATIONS: hypoxia TECHNIQUE: One view of the chest was acquired. COMPARISON: [facility], CR, XR CHEST 1VW (PORTABLE), 03/20/2017, 17: 34. FINDINGS: Surgical changes and devices: Surgical clips project in the right base of neck. There is a pigtail catheter projecting in the right upper quadrant. Lungs and pleura: Trace left pleural effusion. No right pleural effusion or pneumothorax. There is dense retrocardiac consolidation. Mediastinum: Mediastinal contours appear normal. Heart size is normal. Bones and chest wall: No suspicious bony lesions. Overlying soft tissues appear unremarkable. IMPRESSION: Dense retrocardiac consolidation in keeping with pneumonia or aspiration. Please correlate clinically. Trace left pleural effusion Dictated by: Anrde Herring M.D. on 04/05/2017 at 12:33 Approved by: Andre Herring M.D. on 04/05/2017 at 12:34 PROCEDURE: CT CHEST, ABDOMEN AND PELVIS WITH CONTRAST ([id number]) INDICATIONS: SOB, ?pneumonia/effusion, f/u hepatic abscess TECHNIQUE: After the administration of intravenous contrast, 5 mm thick sections acquired from the lung apices to the symphysis. 5 mm coronal and sagittal reformats were performed, with additional 7 mm MIP reformats through the lungs. For radiation dose reduction, the following was used: automated exposure control, adjustment of mA and/or kV according to patient size. COMPARISON: [facility], CT, CT ABD PELVIS W CON, 03/20/2017, 19:02. FINDINGS: Image quality: Excellent. CHEST: Lungs and pleura: Small-moderate bilateral pleural effusions with adjacent atelectasis. Mediastinum: Heart size is enlarged. No pericardial effusion. No mediastinal or hilar adenopathy by size criteria. Thoracic aorta and central pulmonary arteries are normal in size. Esophagus is normal in caliber. No hiatal hernia. Chest wall: No axillary or supraclavicular adenopathy by size criteria. The right lobe of the thyroid is not well-seen. Left lobe unremarkable.. ABDOMEN: Solid organs: There is placement of pigtail catheter drain within the liver. As the prior study there is enlargement of a low collection adjacent to the drain which now measures 5.6 x 5.0 cm, previously 2.2 x 2.3 cm. There is adjacent ill- defined infiltrative edema. Main portal vein appears patent. There is an internal biliary stent as before. Pancreas and spleen grossly unremarkable. No definite adrenal nodule. Bilateral renal cortical thinning. No hydronephrosis. and spleen are normal in size and enhancement. Gallbladder not seen. Biliary system is non dilated. Pancreas enhances normally. No adrenal nodules. Kidneys demonstrate normal size and enhancement, without hydronephrosis. Peritoneum and bowel: Large amount of stool seen throughout the colon. No evidence of bowel obstruction. No free air. No free fluid. Nodes and vessels: No retroperitoneal or mesenteric adenopathy by size criteria. Aorta and inferior vena cava are normal in size. Miscellaneous: No ventral hernias. PELVIS: Genitourinary: Bladder wall thickness is normal. Redemonstration of large left -sided uterine fibroid with central calcification. Miscellaneous: No inguinal hernias or adenopathy. Bones: No suspicious bony lesions. No vertebral body compression fractures. IMPRESSION: Status post placement of hepatic drain, however since the prior study dated 03/20 there is an enlarging intrahepatic fluid collection, suspicious for persistent abscess, just medial to the pigtail tip as measured above. There is persistence adjacent intrahepatic infiltrative edema and fluid. Please correlate clinically. Small to moderate bilateral pleural effusions with adjacent atelectasis. Cardiomegaly. Large uterine fibroid as before. Dictated by: Andre Herring M.D. on 04/05/2017 at 18:39 Approved by: Andre Herring M.D. on 04/05/2017 at 18:55 Cardiac Echo Impressions Echocardiogram Report Name: STEWART UREÑA Graeme e: 02/05/2017 Height: 63 in Hospital Exam Location: [facility] Weight: 90 lb Gender: Female BSA: 1.4 m2 : 1935 Age: 81 yrs BP: 110/54 mmHg Reason For Study: Bacteremia Performed By: Corrie Jeffrey Referring Physician: ADALBERTO KELLEY Interpretation Summary The left ventricle is normal in size. Left ventricular systolic function is normal without focal wall motion abnormalities. The ejection fraction is estimated to be 60-65%. Assessment of diastolic parameters indicates normal left ventricular diastolic function and normal filling pressures. The right ventricle is normal in size and function. The right ventricular systolic pressure is estimated at 34 mmHg assuming a right atrial pressure of 3 mm Hg. The left atrium is mildly dilated. Right atrial size is normal. The aortic valve is trileaflet. The aortic valve opens well. There is no aortic regurgitation. There is very small filamentous strand at the tips of aortic leaflets. This is best seen on parasternal long axis views with inncreased magnification. Differential should include endocarditis or Lambl's excrescence. Given positive blood cultures, OLU is recommended. Other valves do not have any obvious evidence for endocarditis. The aortic root is mildly dilated. The ascending aorta is mildly enlarged. Moderate atherosclerotic plaque(s) in the aortic arch. Additional Diagnostics PROCEDURE: CT ABCESS DRAIN PERITONEAL INDICATIONS: CT guided abscess drain COMPARISON: [facility], CT, CT ABCESS DRAIN PERITONEAL, 12/17/2016, 13:58. Technique: 1. Sedation provided by the anesthesiology service. 2. CT guided abscess drain. The risks and the benefits of the procedure were discussed with the patient and her son, consent was obtained, and placed on the chart. The patient was placed in a supine position on the CT table. The appropriate area was prepped and draped in the usual sterile fashion. 1% lidocaine was used to anesthetize the skin over the area of interest. Under CT guidance, an 18 gauge Chiba needle was advanced into the hepatic fluid collection. The inner stylette was removed, and an Amplatz wire was advanced into the fluid collection. The needle was removed, and an 8 Czech locking pigtail drain was advanced over the wire into the fluid collection and secured in place at the skin. 55 cc of turbid bilious fluid were aspirated and sent to the laboratory for evaluation. The patient tolerated the procedure well. FINDINGS: Initial CT demonstrates a large fluid collection. A small amount of gas is present in this collection in addition to pneumobilia within the left hepatic lobe. IMPRESSION: Successful placement of a CT-guided drain placement within a large fluid and gas collection within the right hepatic lobe. 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 Patient has had multiple gastrointestinal bleeds requiring weekly transfusions. Just 4-5 days ago patient was at [facility] having to or more abdominal shunts placed to further drain her chronic liver abscesses after presenting to [facility] emergency department with sepsis. She states after being discharged she had been feeling worse than her prior baseline in terms of generalized weakness and feeling unwell. She has been having intermittent epigastric abdominal pain which is typical for her chronic pain. She was transfused with 2 units of blood while at [facility] and transfused 2 units of blood 2 days ago. Patient denies any fever, chest pain, shortness of breath, nausea, vomiting, dysuria or cough. The patient continued to feel poorly and at [facility] she had her O2 sat checked and was found to be 70-80% and her blood pressure was low at less than 100 systolic this morning. Therefore the [facility] called 911 patient was brought to [facility] emergency room. The emergency room she was evaluated by Dr. Alvaro Dahl who found her hemoglobin to be 5.5 and her hematocrit to be only 17.7. A chest x-ray showed dense retrocardiac consolidation in keeping with pneumonia or aspiration. Therefore, a CT scan was ordered and showed "Status post placement of hepatic drain, however since the prior study dated 03/20/17 there is an enlarging intrahepatic fluid collection, suspicious for persistent abscess, just medial to the pigtail tip as measured above. There is persistence adjacent intrahepatic infiltrative edema and fluid. Please correlate clinically. Small to moderate bilateral pleural effusions with adjacent atelectasis. Cardiomegaly. Large uterine fibroid as before." Due to her complicated history and active GI bleeding the patient was admitted to the hospitalist service for further evaluation and treatment. 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 Patient was transfused 2 units of packed red blood cels on 04/11/17 and 2 units of packed red blood cels on 04/12/17 - GI evaluated the patient , recs appreciated - Endoscopy done 04/11/17, no signs of active bleeding, continue monitoring - as per Dr. Bynum, patient was started on tamoxifen, which should help control the bleeding. However, due to cross reaction between tamoxifen and fluconazole, it needs to be held, will discuss with Dr. Bynum regarding restaring OCP Plan - monitor H&H Hepatic abscesses with history of VRE and Klebsiella, present on admission - improving slowly, not under control - requires flushing every 8 hrs. - ID following - Patient had recent internal biliary drains placed at [facility]. Films were reviewed by Dr. Sam it appears that the drain or drains need to be readjusted. - Patient has a history of sepsis secondary to VRE and Klebsiella. - abscess growing enterococus, fungus - IR drain reinsertion 04/11/17,now upper drain, monitor output and maintain in place Plan - continue flushing q8H - Dr. Joel to consider gel foam if drains dont work - c/w antibiotics as per ID Severe protein calorie malnutrition, present on admission with a BMI of 17.0 kg/ m. Active - advance diet as tolerated Anemia of chronic disease - stable - continue to monitor Urinary fibroid mass, which is impinging on the colon resulting in constipation - stable Plan - Continue full liquid diet for now - Mineral oil enema given as an option, patient refuses - continue to monitor Disposition: -pcp is Denisha Baird MD -lives with unassisted [place] DVT PROPHYLAXIS: SCD Disposition: discharge in 1-3 days after patient improves. Labs, radiology tests reviewed. Plan of care, medication side effects, home medication, diagnostic procedures and available alternatives were discussed and reviewed with patient. All questions answered. Patient verbalized understanding, approved and agreed to plan of care. Given patient's current condition, I certify, in my opinion inpatient services greater than two midnights are medically necessary for this patient. GI Prophylaxis: Proton Pump Inhibitor VTE Prophylaxis: SCDs VTE Mechanical Devices: Intermittant Pneumatic CD Resuscitation Status: DNR/DNI:Do Not Resuscitate/Intubate Time spent 35 mins Manjeet Peck MD Apr 18, 2017 20:15
[2017-04-18 21:19] VITALS: BP 127/69; PULSE 78; RESP 16; O2SAT 97
[2017-04-19 04:56] VITALS: BP 127/69; PULSE 78; RESP 16; O2SAT 97
--- NOTE | 2017-04-19 05:17 | NUR ---
NOC/Activity Both hepatic drain flushed with 10cc saline. Noted green-brown drainage. Pt denies any pain or abd discomfort. HS ABx/meds administered as scheduled. Intentional hourly rounding done.
[2017-04-19 09:02] VITALS: BP 120/70; PULSE 71; RESP 16; O2SAT 97
[2017-04-19] MEDS: Polyethylene Glycol (PEG) 17 Gm Powder PO SCH (10:08)
[2017-04-19] MEDS: Pantoprazole 20 mg ER24 Tablet PO SCH ×2 (10:08→21:36)
--- NOTE | 2017-04-19 13:45 | PCM.PNMED ---
Subjective Date of Service Apr 19, 2017 Subjective Patient seen and examined. She is doing good. No complaints. Vitals stable. Exam Vital Signs Vital Sign - Last Date Time Temp Pulse Resp B/P Pulse Ox O2 Delivery O2 Flow Rate FiO2 04/19/17 09:02 36.7 71 16 120/70 97 Room Air Intake and Output 04/18/17 04/18/17 04/19/17 Cumulative From/Thru 15:00 23:00 07:00 04/05/17 11:37 - 04/19/17 06:11 Intake Total 450 ml 50 ml 44325 ml Output Total 1200 ml 650 ml 44177 ml Balance -750 ml -600 ml 478 ml Intake Oral 340 ml 50 ml 7267 ml IV Total 110 ml 8641 ml Packed Cells 1295 ml Output Urine Total 1200 ml 590 ml 99573 ml Emesis 325 ml Drainage Total 60 ml 420 ml # Voids 9 # Bowel Movements 0 11 Exam GENERAL: not in distress EYES: EOMI, anicteric, able to fully open and close eyelids RESPIRATORY: Lungs clear to auscultation. Good diaphragmatic excursion. CARDIAC: normal S1 and S2; no rubs, murmurs, or gallops; regular rhythm ABDOMEN: Abdomen soft, non-tender. BS normal. Drains in place, draining well. MUSCULOSKELETAL: ROM full, muscles are not tender EXTREMITIES: no pitting edema in LE, no new deformities or skin discoloration. NEURO: Alert, oriented X 2, Cranial nerves II-XII intact, Grossly normal motor function. Lab and Diagnostics Result Diagram: 04/18/17 0642 04/18/17 0642 Microbiology Urinalysis is unremarkable and culture is not indicated Blood cultures are pending X-Rays, CTs and MRIs PROCEDURE: X-RAY CHEST ONE VIEW, PORTABLE ([id number]) INDICATIONS: hypoxia TECHNIQUE: One view of the chest was acquired. COMPARISON: [facility], CR, XR CHEST 1VW (PORTABLE), 03/20/2017, 17: 34. FINDINGS: Surgical changes and devices: Surgical clips project in the right base of neck. There is a pigtail catheter projecting in the right upper quadrant. Lungs and pleura: Trace left pleural effusion. No right pleural effusion or pneumothorax. There is dense retrocardiac consolidation. Mediastinum: Mediastinal contours appear normal. Heart size is normal. Bones and chest wall: No suspicious bony lesions. Overlying soft tissues appear unremarkable. IMPRESSION: Dense retrocardiac consolidation in keeping with pneumonia or aspiration. Please correlate clinically. Trace left pleural effusion Dictated by: Andre Herring M.D. on 04/05/2017 at 12:33 Approved by: Andre Herring M.D. on 04/05/2017 at 12:34 PROCEDURE: CT CHEST, ABDOMEN AND PELVIS WITH CONTRAST ([id number]) INDICATIONS: SOB, ?pneumonia/effusion, f/u hepatic abscess TECHNIQUE: After the administration of intravenous contrast, 5 mm thick sections acquired from the lung apices to the symphysis. 5 mm coronal and sagittal reformats were performed, with additional 7 mm MIP reformats through the lungs. For radiation dose reduction, the following was used: automated exposure control, adjustment of mA and/or kV according to patient size. COMPARISON: [facility], CT, CT ABD PELVIS W CON, 03/20/2017, 19:02. FINDINGS: Image quality: Excellent. CHEST: Lungs and pleura: Small-moderate bilateral pleural effusions with adjacent atelectasis. Mediastinum: Heart size is enlarged. No pericardial effusion. No mediastinal or hilar adenopathy by size criteria. Thoracic aorta and central pulmonary arteries are normal in size. Esophagus is normal in caliber. No hiatal hernia. Chest wall: No axillary or supraclavicular adenopathy by size criteria. The right lobe of the thyroid is not well-seen. Left lobe unremarkable.. ABDOMEN: Solid organs: There is placement of pigtail catheter drain within the liver. As the prior study there is enlargement of a low collection adjacent to the drain which now measures 5.6 x 5.0 cm, previously 2.2 x 2.3 cm. There is adjacent ill- defined infiltrative edema. Main portal vein appears patent. There is an internal biliary stent as before. Pancreas and spleen grossly unremarkable. No definite adrenal nodule. Bilateral renal cortical thinning. No hydronephrosis. and spleen are normal in size and enhancement. Gallbladder not seen. Biliary system is non dilated. Pancreas enhances normally. No adrenal nodules. Kidneys demonstrate normal size and enhancement, without hydronephrosis. Peritoneum and bowel: Large amount of stool seen throughout the colon. No evidence of bowel obstruction. No free air. No free fluid. Nodes and vessels: No retroperitoneal or mesenteric adenopathy by size criteria. Aorta and inferior vena cava are normal in size. Miscellaneous: No ventral hernias. PELVIS: Genitourinary: Bladder wall thickness is normal. Redemonstration of large left -sided uterine fibroid with central calcification. Miscellaneous: No inguinal hernias or adenopathy. Bones: No suspicious bony lesions. No vertebral body compression fractures. IMPRESSION: Status post placement of hepatic drain, however since the prior study dated 03/20 there is an enlarging intrahepatic fluid collection, suspicious for persistent abscess, just medial to the pigtail tip as measured above. There is persistence adjacent intrahepatic infiltrative edema and fluid. Please correlate clinically. Small to moderate bilateral pleural effusions with adjacent atelectasis. Cardiomegaly. Large uterine fibroid as before. Dictated by: Andre Herring M.D. on 04/05/2017 at 18:39 Approved by: Andre Herring M.D. on 04/05/2017 at 18:55 Cardiac Echo Impressions Echocardiogram Report Name: STEWART UREÑA Graeme e: 02/05/2017 Height: 63 in Hospital Exam Location: [facility] Weight: 90 lb Gender: Female BSA: 1.4 m2 : 1935 Age: 81 yrs BP: 110/54 mmHg Reason For Study: Bacteremia Performed By: Corrie Jeffrey Referring Physician: ADALBERTO KELLEY Interpretation Summary The left ventricle is normal in size. Left ventricular systolic function is normal without focal wall motion abnormalities. The ejection fraction is estimated to be 60-65%. Assessment of diastolic parameters indicates normal left ventricular diastolic function and normal filling pressures. The right ventricle is normal in size and function. The right ventricular systolic pressure is estimated at 34 mmHg assuming a right atrial pressure of 3 mm Hg. The left atrium is mildly dilated. Right atrial size is normal. The aortic valve is trileaflet. The aortic valve opens well. There is no aortic regurgitation. There is very small filamentous strand at the tips of aortic leaflets. This is best seen on parasternal long axis views with inncreased magnification. Differential should include endocarditis or Lambl's excrescence. Given positive blood cultures, OLU is recommended. Other valves do not have any obvious evidence for endocarditis. The aortic root is mildly dilated. The ascending aorta is mildly enlarged. Moderate atherosclerotic plaque(s) in the aortic arch. Additional Diagnostics PROCEDURE: CT ABCESS DRAIN PERITONEAL INDICATIONS: CT guided abscess drain COMPARISON: [facility], CT, CT ABCESS DRAIN PERITONEAL, 12/17/2016, 13:58. Technique: 1. Sedation provided by the anesthesiology service. 2. CT guided abscess drain. The risks and the benefits of the procedure were discussed with the patient and her son, consent was obtained, and placed on the chart. The patient was placed in a supine position on the CT table. The appropriate area was prepped and draped in the usual sterile fashion. 1% lidocaine was used to anesthetize the skin over the area of interest. Under CT guidance, an 18 gauge Chiba needle was advanced into the hepatic fluid collection. The inner stylette was removed, and an Amplatz wire was advanced into the fluid collection. The needle was removed, and an 8 Irish locking pigtail drain was advanced over the wire into the fluid collection and secured in place at the skin. 55 cc of turbid bilious fluid were aspirated and sent to the laboratory for evaluation. The patient tolerated the procedure well. FINDINGS: Initial CT demonstrates a large fluid collection. A small amount of gas is present in this collection in addition to pneumobilia within the left hepatic lobe. IMPRESSION: Successful placement of a CT-guided drain placement within a large fluid and gas collection within the right hepatic lobe. 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 Patient has had multiple gastrointestinal bleeds requiring weekly transfusions. Just 4-5 days ago patient was at [facility] having to or more abdominal shunts placed to further drain her chronic liver abscesses after presenting to [facility] emergency department with sepsis. She states after being discharged she had been feeling worse than her prior baseline in terms of generalized weakness and feeling unwell. She has been having intermittent epigastric abdominal pain which is typical for her chronic pain. She was transfused with 2 units of blood while at [facility] and transfused 2 units of blood 2 days ago. Patient denies any fever, chest pain, shortness of breath, nausea, vomiting, dysuria or cough. The patient continued to feel poorly and at [facility] she had her O2 sat checked and was found to be 70-80% and her blood pressure was low at less than 100 systolic this morning. Therefore the [facility] called 911 patient was brought to [facility] emergency room. The emergency room she was evaluated by Dr. Alvaro Dahl who found her hemoglobin to be 5.5 and her hematocrit to be only 17.7. A chest x-ray showed dense retrocardiac consolidation in keeping with pneumonia or aspiration. Therefore, a CT scan was ordered and showed "Status post placement of hepatic drain, however since the prior study dated 03/20/17 there is an enlarging intrahepatic fluid collection, suspicious for persistent abscess, just medial to the pigtail tip as measured above. There is persistence adjacent intrahepatic infiltrative edema and fluid. Please correlate clinically. Small to moderate bilateral pleural effusions with adjacent atelectasis. Cardiomegaly. Large uterine fibroid as before." Due to her complicated history and active GI bleeding the patient was admitted to the hospitalist service for further evaluation and treatment. 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 Patient was transfused 2 units of packed red blood cels on 04/11/17 and 2 units of packed red blood cels on 04/12/17 - GI evaluated the patient , recs appreciated - Endoscopy done 04/11/17, no signs of active bleeding, continue monitoring - as per Dr. Bynum, patient was started on tamoxifen, which should help control the bleeding. However, due to cross reaction between tamoxifen and fluconazole (increased QT prolongation, uterine cancer and DVTs), it needs to be held, will discuss with Dr. 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 - ID following - Patient had recent internal biliary drains placed at [facility]. Films were reviewed by Dr. Sam it appears that the drain or drains need to be readjusted. - Patient has a history of sepsis secondary to VRE and Klebsiella. - abscess growing enterococus, fungus - IR drain reinsertion 04/11/17,now upper drain, monitor output and maintain in place Plan - continue flushing q8H - Dr. Joel to consider gel foam if drains dont work, discussed with her on the phone : wants to wait see if drains can work - c/w antibiotics as per ID Severe protein calorie malnutrition, present on admission with a BMI of 17.0 kg/ m. Active - advance diet as tolerated - Ensure drinks for her Anemia of chronic disease - stable - continue to monitor Urinary fibroid mass, which is impinging on the colon resulting in constipation - stable Plan - Continue full liquid diet for now - Mineral oil enema given as an option, patient refuses - continue to monitor Disposition: -pcp is Denisha Baird MD -lives with unassisted [place] DVT PROPHYLAXIS: SCD Disposition: discharge in 1-3 days after patient improves. Labs, radiology tests reviewed. Plan of care, medication side effects, home medication, diagnostic procedures and available alternatives were discussed and reviewed with patient. All questions answered. Patient verbalized understanding, approved and agreed to plan of care. Given patient's current condition, I certify, in my opinion inpatient services greater than two midnights are medically necessary for this patient. GI Prophylaxis: Proton Pump Inhibitor VTE Prophylaxis: SCDs VTE Mechanical Devices: Intermittant Pneumatic CD Resuscitation Status: DNR/DNI:Do Not Resuscitate/Intubate Time spent 35 mins Manjeet Peck MD Apr 19, 2017 13:45
[2017-04-19 14:13] VITALS: BP 116/71; PULSE 80; RESP 16; O2SAT 97
[2017-04-19 14:54] LABS: BASOPHILS % (AUTO) 0.4 % (0-3); EOSINOPHILS % (AUTO) 1.7 % (0-5); MONOCYTES % (AUTO) 10.6 % (4-12); Mean Corpuscular Hemoglobin 29.7 pg (27.0-35.0); Mean Corpuscular Volume 94.5 fL (81-100); NEUTROPHILS % (AUTO) 72.4 % (40-74); Platelet Count 327 bil/L (150-400)
--- NOTE | 2017-04-19 16:54 | NUR ---
Social Work: Continued d/c planning Data: Pt is on day 14 of hospitalization. EMR reviewed. Pt discussed in multidisciplinary rounds. states pt not medically stable for d/c at this time. [facility] [place]. ASSISTANT DIRECTOR OF NURSING will continue to follow. Assessment: Pt needing SNF. Plan: Pt will return to [facility] when medically stable. ASSISTANT DIRECTOR OF NURSING will continue to follow. SOHAN Kim
--- NOTE | 2017-04-19 17:38 | NUR ---
Hepatic drains Drainage from "[employer]" baml of brown/green drainage. Drain had been flushed with 10cc at noon. Drainage from "[employer]" bag (VM placed): 5ml. Drain had been flushed with 10cc at noon. Pt denies any pain/discomfort at site nor with flushing.
[2017-04-19 20:48] VITALS: BP 122/76; PULSE 79; RESP 16; O2SAT 96
[2017-04-20] VITALS (9 sets, daily range): BP systolic 107–136; BP diastolic 57–71; PULSE 70–89; RESP 16–18; O2SAT 94–96
--- NOTE | 2017-04-20 05:09 | NUR ---
NOC Activity pt has been pleasant and cooperative with care. Denies chest pain, sob, n/v or abd discomfort. Reports of unable to have enough sleep thru the night. Pt's both hepatic drain flushed with 10cc's. VSS and WNL. Pt has been afebrile overnight.
[2017-04-20 08:30] LABS: BASOPHILS % (AUTO) 0.8 % (0-3); EOSINOPHILS % (AUTO) 1.9 % (0-5); Mean Corpuscular Hemoglobin 29.3 pg (27.0-35.0); Mean Corpuscular Volume 94.6 fL (81-100); NEUTROPHILS % (AUTO) 74.2 % (40-74); Platelet Count 320 bil/L (150-400)
[2017-04-20] MEDS: Polyethylene Glycol (PEG) 17 Gm Powder PO SCH (08:33)
[2017-04-20] MEDS: Pantoprazole 20 mg ER24 Tablet PO SCH ×2 (08:33→21:29)
--- NOTE | 2017-04-20 11:44 | PCM.PNMED ---
Subjective Date of Service Apr 20, 2017 Subjective Patient seen and examined. Doing ok. No complaints. Didnt drain much last night. Vitals noted Exam Vital Signs Vital Sign - Last Date Time Temp Pulse Resp B/P Pulse Ox O2 Delivery O2 Flow Rate FiO2 04/20/17 04:13 37.0 79 18 107/57 96 Room Air Intake and Output 04/19/17 04/19/17 04/20/17 Cumulative From/Thru 15:00 23:00 07:00 04/05/17 11:37 - 04/20/17 06:31 Intake Total 338 ml 190 ml 85844 ml Output Total 670 ml 960 ml 23887 ml Balance -332 ml -770 ml -624 ml Intake Oral 338 ml 170 ml 7775 ml IV Total 20 ml 8661 ml Packed Cells 1295 ml Output Urine Total 650 ml 930 ml 90488 ml Emesis 325 ml Drainage Total 20 ml 30 ml 470 ml # Voids 9 # Bowel Movements 0 11 Exam GENERAL: not in distress EYES: EOMI, anicteric, able to fully open and close eyelids RESPIRATORY: Lungs clear to auscultation. Good diaphragmatic excursion. CARDIAC: normal S1 and S2; no rubs, murmurs, or gallops; regular rhythm ABDOMEN: Abdomen soft, non-tender. BS normal. Drains in place, draining well. MUSCULOSKELETAL: ROM full, muscles are not tender EXTREMITIES: no pitting edema in LE, no new deformities or skin discoloration. NEURO: Alert, oriented X 2, Cranial nerves II-XII intact, Grossly normal motor function. Lab and Diagnostics Result Diagram: 04/20/17 0755 04/18/17 0642 Microbiology Urinalysis is unremarkable and culture is not indicated Blood cultures are pending X-Rays, CTs and MRIs PROCEDURE: X-RAY CHEST ONE VIEW, PORTABLE ([id number]) INDICATIONS: hypoxia TECHNIQUE: One view of the chest was acquired. COMPARISON: [facility], CR, XR CHEST 1VW (PORTABLE), 03/20/2017, 17: 34. FINDINGS: Surgical changes and devices: Surgical clips project in the right base of neck. There is a pigtail catheter projecting in the right upper quadrant. Lungs and pleura: Trace left pleural effusion. No right pleural effusion or pneumothorax. There is dense retrocardiac consolidation. Mediastinum: Mediastinal contours appear normal. Heart size is normal. Bones and chest wall: No suspicious bony lesions. Overlying soft tissues appear unremarkable. IMPRESSION: Dense retrocardiac consolidation in keeping with pneumonia or aspiration. Please correlate clinically. Trace left pleural effusion Dictated by: Andre Herring M.D. on 04/05/2017 at 12:33 Approved by: Andre Herring M.D. on 04/05/2017 at 12:34 PROCEDURE: CT CHEST, ABDOMEN AND PELVIS WITH CONTRAST ([id number]) INDICATIONS: SOB, ?pneumonia/effusion, f/u hepatic abscess TECHNIQUE: After the administration of intravenous contrast, 5 mm thick sections acquired from the lung apices to the symphysis. 5 mm coronal and sagittal reformats were performed, with additional 7 mm MIP reformats through the lungs. For radiation dose reduction, the following was used: automated exposure control, adjustment of mA and/or kV according to patient size. COMPARISON: [facility], CT, CT ABD PELVIS W CON, 03/20/2017, 19:02. FINDINGS: Image quality: Excellent. CHEST: Lungs and pleura: Small-moderate bilateral pleural effusions with adjacent atelectasis. Mediastinum: Heart size is enlarged. No pericardial effusion. No mediastinal or hilar adenopathy by size criteria. Thoracic aorta and central pulmonary arteries are normal in size. Esophagus is normal in caliber. No hiatal hernia. Chest wall: No axillary or supraclavicular adenopathy by size criteria. The right lobe of the thyroid is not well-seen. Left lobe unremarkable.. ABDOMEN: Solid organs: There is placement of pigtail catheter drain within the liver. As the prior study there is enlargement of a low collection adjacent to the drain which now measures 5.6 x 5.0 cm, previously 2.2 x 2.3 cm. There is adjacent ill- defined infiltrative edema. Main portal vein appears patent. There is an internal biliary stent as before. Pancreas and spleen grossly unremarkable. No definite adrenal nodule. Bilateral renal cortical thinning. No hydronephrosis. and spleen are normal in size and enhancement. Gallbladder not seen. Biliary system is non dilated. Pancreas enhances normally. No adrenal nodules. Kidneys demonstrate normal size and enhancement, without hydronephrosis. Peritoneum and bowel: Large amount of stool seen throughout the colon. No evidence of bowel obstruction. No free air. No free fluid. Nodes and vessels: No retroperitoneal or mesenteric adenopathy by size criteria. Aorta and inferior vena cava are normal in size. Miscellaneous: No ventral hernias. PELVIS: Genitourinary: Bladder wall thickness is normal. Redemonstration of large left -sided uterine fibroid with central calcification. Miscellaneous: No inguinal hernias or adenopathy. Bones: No suspicious bony lesions. No vertebral body compression fractures. IMPRESSION: Status post placement of hepatic drain, however since the prior study dated 03/20 there is an enlarging intrahepatic fluid collection, suspicious for persistent abscess, just medial to the pigtail tip as measured above. There is persistence adjacent intrahepatic infiltrative edema and fluid. Please correlate clinically. Small to moderate bilateral pleural effusions with adjacent atelectasis. Cardiomegaly. Large uterine fibroid as before. Dictated by: Andre Herring M.D. on 04/05/2017 at 18:39 Approved by: Andre Herring M.D. on 04/05/2017 at 18:55 Cardiac Echo Impressions Echocardiogram Report Name: STEWART UREÑA Graeme e: 02/05/2017 Height: 63 in Hospital Exam Location: [facility] Weight: 90 lb Gender: Female BSA: 1.4 m2 : 1935 Age: 81 yrs BP: 110/54 mmHg Reason For Study: Bacteremia Performed By: Corrie Jeffrey Referring Physician: ADALBERTO KELLEY Interpretation Summary The left ventricle is normal in size. Left ventricular systolic function is normal without focal wall motion abnormalities. The ejection fraction is estimated to be 60-65%. Assessment of diastolic parameters indicates normal left ventricular diastolic function and normal filling pressures. The right ventricle is normal in size and function. The right ventricular systolic pressure is estimated at 34 mmHg assuming a right atrial pressure of 3 mm Hg. The left atrium is mildly dilated. Right atrial size is normal. The aortic valve is trileaflet. The aortic valve opens well. There is no aortic regurgitation. There is very small filamentous strand at the tips of aortic leaflets. This is best seen on parasternal long axis views with inncreased magnification. Differential should include endocarditis or Lambl's excrescence. Given positive blood cultures, OLU is recommended. Other valves do not have any obvious evidence for endocarditis. The aortic root is mildly dilated. The ascending aorta is mildly enlarged. Moderate atherosclerotic plaque(s) in the aortic arch. Additional Diagnostics PROCEDURE: CT ABCESS DRAIN PERITONEAL INDICATIONS: CT guided abscess drain COMPARISON: [facility], CT, CT ABCESS DRAIN PERITONEAL, 12/17/2016, 13:58. Technique: 1. Sedation provided by the anesthesiology service. 2. CT guided abscess drain. The risks and the benefits of the procedure were discussed with the patient and her son, consent was obtained, and placed on the chart. The patient was placed in a supine position on the CT table. The appropriate area was prepped and draped in the usual sterile fashion. 1% lidocaine was used to anesthetize the skin over the area of interest. Under CT guidance, an 18 gauge Chiba needle was advanced into the hepatic fluid collection. The inner stylette was removed, and an Amplatz wire was advanced into the fluid collection. The needle was removed, and an 8 English locking pigtail drain was advanced over the wire into the fluid collection and secured in place at the skin. 55 cc of turbid bilious fluid were aspirated and sent to the laboratory for evaluation. The patient tolerated the procedure well. FINDINGS: Initial CT demonstrates a large fluid collection. A small amount of gas is present in this collection in addition to pneumobilia within the left hepatic lobe. IMPRESSION: Successful placement of a CT-guided drain placement within a large fluid and gas collection within the right hepatic lobe. 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 Patient has had multiple gastrointestinal bleeds requiring weekly transfusions. Just 4-5 days ago patient was at [facility] having to or more abdominal shunts placed to further drain her chronic liver abscesses after presenting to [facility] emergency department with sepsis. She states after being discharged she had been feeling worse than her prior baseline in terms of generalized weakness and feeling unwell. She has been having intermittent epigastric abdominal pain which is typical for her chronic pain. She was transfused with 2 units of blood while at [facility] and transfused 2 units of blood 2 days ago. Patient denies any fever, chest pain, shortness of breath, nausea, vomiting, dysuria or cough. The patient continued to feel poorly and at [facility] she had her O2 sat checked and was found to be 70-80% and her blood pressure was low at less than 100 systolic this morning. Therefore the [facility] called 911 patient was brought to [facility] emergency room. The emergency room she was evaluated by Dr. Alvaro Dahl who found her hemoglobin to be 5.5 and her hematocrit to be only 17.7. A chest x-ray showed dense retrocardiac consolidation in keeping with pneumonia or aspiration. Therefore, a CT scan was ordered and showed "Status post placement of hepatic drain, however since the prior study dated 03/20/17 there is an enlarging intrahepatic fluid collection, suspicious for persistent abscess, just medial to the pigtail tip as measured above. There is persistence adjacent intrahepatic infiltrative edema and fluid. Please correlate clinically. Small to moderate bilateral pleural effusions with adjacent atelectasis. Cardiomegaly. Large uterine fibroid as before." Due to her complicated history and active GI bleeding the patient was admitted to the hospitalist service for further evaluation and treatment. Gastrointestinal bleed secondary to hereditary hemorrhagic telangiectasia (HHT) with acute blood loss anemia - Hb trended down today. Patient was transfused 2 units of packed red blood cels on 04/11/17 and 2 units of packed red blood cels on 04/12/17, will transfuse today - GI on board - Endoscopy done 04/11/17, no signs of active bleeding, continue monitoring - as per Dr. Bynum, patient should be tamoxifen. 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 - ID following - Patient had recent internal biliary drains placed at [facility]. Films were reviewed by Dr. Sam it appears that the drain or drains need to be readjusted. - Patient has a history of sepsis secondary to VRE and Klebsiella. - abscess growing enterococus, fungus - IR drain reinsertion 04/11/17,now upper drain, monitor output and maintain in place Plan - continue flushing q8H - Dr. Joel to consider gel foam if drains dont work, discussed with her on the phone : wants to wait see if drains can work - c/w antibiotics as per ID Severe protein calorie malnutrition, present on admission with a BMI of 17.0 kg/ m. Active - advance diet as tolerated - Ensure drinks for her Anemia of chronic disease - stable - continue to monitor Urinary fibroid mass, which is impinging on the colon resulting in constipation - stable Plan - Continue full liquid diet for now - Mineral oil enema given as an option, patient refuses - continue to monitor Disposition: -pcp is Denisha Baird MD -lives with unassisted [place] DVT PROPHYLAXIS: SCD Disposition: discharge in 1-3 days after patient improves. Labs, radiology tests reviewed. Plan of care, medication side effects, home medication, diagnostic procedures and available alternatives were discussed and reviewed with patient. All questions answered. Patient verbalized understanding, approved and agreed to plan of care. Given patient's current condition, I certify, in my opinion inpatient services greater than two midnights are medically necessary for this patient. GI Prophylaxis: Proton Pump Inhibitor VTE Prophylaxis: SCDs VTE Mechanical Devices: Intermittant Pneumatic CD Resuscitation Status: DNR/DNI:Do Not Resuscitate/Intubate Time spent 35 mins Manjeet Peck MD Apr 20, 2017 11:44
[2017-04-20] MEDS ORDERED: 0.9% Sodium Chloride 250 ML ONE ×2 (11:53→16:11)
--- NOTE | 2017-04-20 18:05 | NUR ---
Blood transfusion Pt rec'd an order for 2 units of PBRC's this afternoon. Pt tolerated first unit with no c/o or indicators of a reaction, second unit currently infusing. Vital signs have remained stable, afebrile.
--- NOTE | 2017-04-20 19:12 | NUR ---
Hepatic drains Drain #1 "COOK" drained 20ml of green/brown, thick drainage. Drain flushed with 10cc at 0840 this AM. Drain #2 "MERIT DRAINAGE DEPOT" drained 7.5ml of clear, thin drainage. Drain flushed with 10cc at 0840 this AM. Pt denies any pain/discomfort at site.
[2017-04-21] VITALS (9 sets, daily range): BP systolic 123–146; BP diastolic 55–79; PULSE 65–108; RESP 16–18; O2SAT 93–99
[2017-04-21] MEDS ORDERED: 0.9% Sodium Chloride 250 ML ONE (05:32)
--- NOTE | 2017-04-21 05:55 | NUR ---
NOC/Activity Pt was s/p 2units prbc. Pt states she's still feeling a little weak but much better than she was the night before. Reports of not having a good appetite. Denies chest pain, sob, n/v or abd discomfort. Hepatic drains both flushed with 10cc's saline. Pt's VSS and has been afebrile overnight. Intentional hourly rounding done and pt has slept most of the night.
[2017-04-21] MEDS: Polyethylene Glycol (PEG) 17 Gm Powder PO SCH (08:30)
--- NOTE | 2017-04-21 08:54 | PROG NOTE ---
[address] [address] PROGRESS NOTE PATIENT: STEWART UREÑA : 1935 MR#: [id number] ADMIT: 04/05/2017 JOB ID: [id number] DATE: 04/21/2017 SUBJECTIVE: The patient is an 81-year-old woman with hereditary hemorrhagic telangiectasias. She has frequent gastrointestinal bleeding. He has a VRE-positive hepatic abscess with two stents, placed at [facility]. She is on linezolid and ertapenem. She has recently started tamoxifen for estrogen therapy of her hereditary hemorrhagic telangiectasias. She was transfused yesterday with 2 units packed red blood cells for a hematocrit of 22.6, which improved to 28.2%, after transfusion. Feeling a bit stronger, and hopes to be transferred back to the care facility in the near future. OBJECTIVE: Vitals: T 36.8, P 81, R 16, BP 134/77, O2 saturation 95% on room air. HEENT: Conjunctivae pink. Mucous membranes slightly dry. Chest clear. Cardiac exam regular rate and rhythm. Abdomen soft, nontender. Drains in the right upper quadrant. Extremities muscular wasting, 1+ distal pulses. LABORATORIES: Pending. ASSESSMENT AND PLAN: 1. Hereditary hemorrhagic telangiectasia: The patient has frequent gastrointestinal bleeding requiring red cell transfusions. There has been no evidence of iron overload, likely due to her ongoing blood loss. If discharged, please [facility] for [facility] CBC, differential, platelets every . I believe she is already scheduled this week on April 24, 2017. 2. Right liver abscess: The patient has vancomycin-resistant enterococcus and Klebsiella. Continue broad-spectrum antibiotics per Dr. Webber and the infectious disease team.
[2017-04-21] MEDS: Pantoprazole 20 mg ER24 Tablet PO SCH ×2 (09:09→21:02)
[2017-04-21 09:32] LABS: BASOPHILS % (AUTO) 1.4 % (0-3); EOSINOPHILS % (AUTO) 2.3 % (0-5); MONOCYTES % (AUTO) 12.2 % (4-12); Mean Corpuscular Hemoglobin 29.9 pg (27.0-35.0); Mean Corpuscular Volume 90.7 fL (81-100); NEUTROPHILS % (AUTO) 69.4 % (40-74); Platelet Count 326 bil/L (150-400)
--- NOTE | 2017-04-21 10:24 | NUR ---
Social Work-readiness for discharge: Data: EMR reviewed. Pt is on day 16 of hospitalization for anemia per H&P. Pt is not medically stable at this time. SW spoke with Philip at [facility] who confirms they can flush pt's drain they just need orders to be able to do this. Insurance authorization has been obtained. Paperwork in the chart. SW will continue to follow. Assessment:Pt to benefit from SNF. Plan: Pt will return to [facility] when medically stable. Insurance authorization has been obtained. Paperwork in the chart. SW will continue to follow. SOHAN Gayle
--- NOTE | 2017-04-21 13:05 | PCM.PNMED ---
Subjective Date of Service Apr 21, 2017 Subjective Patient seen and examined. Feels ok. No complaints. Vitals stable. Exam Vital Signs Vital Sign - Last Date Time Temp Pulse Resp B/P Pulse Ox O2 Delivery O2 Flow Rate FiO2 04/21/17 11:43 Room Air 04/21/17 08:57 37.1 89 16 131/79 97 Intake and Output 04/20/17 04/20/17 04/21/17 Cumulative From/Thru 15:00 23:00 07:00 04/05/17 11:37 - 04/21/17 06:36 Intake Total 1018 ml 120 ml 95958 ml Output Total 975 ml 940 ml 07798 ml Balance 43 ml -820 ml -1401 ml Intake Oral 420 ml 100 ml 8295 ml IV Total 20 ml 8681 ml Packed Cells 598 ml 1893 ml Output Urine Total 975 ml 920 ml 17486 ml Emesis 325 ml Drainage Total 20 ml 490 ml # Voids 9 # Bowel Movements 1 1 13 Exam GENERAL: not in distress EYES: EOMI, anicteric, able to fully open and close eyelids RESPIRATORY: Lungs clear to auscultation. Good diaphragmatic excursion. CARDIAC: normal S1 and S2; no rubs, murmurs, or gallops; regular rhythm ABDOMEN: Abdomen soft, non-tender. BS normal. Drains in place, draining well. MUSCULOSKELETAL: ROM full, muscles are not tender EXTREMITIES: no pitting edema in LE, no new deformities or skin discoloration. NEURO: Alert, oriented X 2, Cranial nerves II-XII intact, Grossly normal motor function. Lab and Diagnostics Result Diagram: 04/21/17 0924 04/18/17 0642 Microbiology Urinalysis is unremarkable and culture is not indicated Blood cultures are pending X-Rays, CTs and MRIs PROCEDURE: X-RAY CHEST ONE VIEW, PORTABLE ([id number]) INDICATIONS: hypoxia TECHNIQUE: One view of the chest was acquired. COMPARISON: [facility], CR, XR CHEST 1VW (PORTABLE), 03/20/2017, 17: 34. FINDINGS: Surgical changes and devices: Surgical clips project in the right base of neck. There is a pigtail catheter projecting in the right upper quadrant. Lungs and pleura: Trace left pleural effusion. No right pleural effusion or pneumothorax. There is dense retrocardiac consolidation. Mediastinum: Mediastinal contours appear normal. Heart size is normal. Bones and chest wall: No suspicious bony lesions. Overlying soft tissues appear unremarkable. IMPRESSION: Dense retrocardiac consolidation in keeping with pneumonia or aspiration. Please correlate clinically. Trace left pleural effusion Dictated by: Andre Herring M.D. on 04/05/2017 at 12:33 Approved by: Andre Herring M.D. on 04/05/2017 at 12:34 PROCEDURE: CT CHEST, ABDOMEN AND PELVIS WITH CONTRAST ([id number]) INDICATIONS: SOB, ?pneumonia/effusion, f/u hepatic abscess TECHNIQUE: After the administration of intravenous contrast, 5 mm thick sections acquired from the lung apices to the symphysis. 5 mm coronal and sagittal reformats were performed, with additional 7 mm MIP reformats through the lungs. For radiation dose reduction, the following was used: automated exposure control, adjustment of mA and/or kV according to patient size. COMPARISON: [facility], CT, CT ABD PELVIS W CON, 03/20/2017, 19:02. FINDINGS: Image quality: Excellent. CHEST: Lungs and pleura: Small-moderate bilateral pleural effusions with adjacent atelectasis. Mediastinum: Heart size is enlarged. No pericardial effusion. No mediastinal or hilar adenopathy by size criteria. Thoracic aorta and central pulmonary arteries are normal in size. Esophagus is normal in caliber. No hiatal hernia. Chest wall: No axillary or supraclavicular adenopathy by size criteria. The right lobe of the thyroid is not well-seen. Left lobe unremarkable.. ABDOMEN: Solid organs: There is placement of pigtail catheter drain within the liver. As the prior study there is enlargement of a low collection adjacent to the drain which now measures 5.6 x 5.0 cm, previously 2.2 x 2.3 cm. There is adjacent ill- defined infiltrative edema. Main portal vein appears patent. There is an internal biliary stent as before. Pancreas and spleen grossly unremarkable. No definite adrenal nodule. Bilateral renal cortical thinning. No hydronephrosis. and spleen are normal in size and enhancement. Gallbladder not seen. Biliary system is non dilated. Pancreas enhances normally. No adrenal nodules. Kidneys demonstrate normal size and enhancement, without hydronephrosis. Peritoneum and bowel: Large amount of stool seen throughout the colon. No evidence of bowel obstruction. No free air. No free fluid. Nodes and vessels: No retroperitoneal or mesenteric adenopathy by size criteria. Aorta and inferior vena cava are normal in size. Miscellaneous: No ventral hernias. PELVIS: Genitourinary: Bladder wall thickness is normal. Redemonstration of large left -sided uterine fibroid with central calcification. Miscellaneous: No inguinal hernias or adenopathy. Bones: No suspicious bony lesions. No vertebral body compression fractures. IMPRESSION: Status post placement of hepatic drain, however since the prior study dated 03/20 there is an enlarging intrahepatic fluid collection, suspicious for persistent abscess, just medial to the pigtail tip as measured above. There is persistence adjacent intrahepatic infiltrative edema and fluid. Please correlate clinically. Small to moderate bilateral pleural effusions with adjacent atelectasis. Cardiomegaly. Large uterine fibroid as before. Dictated by: Andre Herring M.D. on 04/05/2017 at 18:39 Approved by: Andre Herring M.D. on 04/05/2017 at 18:55 Cardiac Echo Impressions Echocardiogram Report Name: STEWART UREÑA Graeme e: 02/05/2017 Height: 63 in Hospital Exam Location: [facility] Weight: 90 lb Gender: Female BSA: 1.4 m2 : 1935 Age: 81 yrs BP: 110/54 mmHg Reason For Study: Bacteremia Performed By: Corrie Jeffrey Referring Physician: ADALBERTO KELLEY Interpretation Summary The left ventricle is normal in size. Left ventricular systolic function is normal without focal wall motion abnormalities. The ejection fraction is estimated to be 60-65%. Assessment of diastolic parameters indicates normal left ventricular diastolic function and normal filling pressures. The right ventricle is normal in size and function. The right ventricular systolic pressure is estimated at 34 mmHg assuming a right atrial pressure of 3 mm Hg. The left atrium is mildly dilated. Right atrial size is normal. The aortic valve is trileaflet. The aortic valve opens well. There is no aortic regurgitation. There is very small filamentous strand at the tips of aortic leaflets. This is best seen on parasternal long axis views with inncreased magnification. Differential should include endocarditis or Lambl's excrescence. Given positive blood cultures, OLU is recommended. Other valves do not have any obvious evidence for endocarditis. The aortic root is mildly dilated. The ascending aorta is mildly enlarged. Moderate atherosclerotic plaque(s) in the aortic arch. Additional Diagnostics PROCEDURE: CT ABCESS DRAIN PERITONEAL INDICATIONS: CT guided abscess drain COMPARISON: [facility], CT, CT ABCESS DRAIN PERITONEAL, 12/17/2016, 13:58. Technique: 1. Sedation provided by the anesthesiology service. 2. CT guided abscess drain. The risks and the benefits of the procedure were discussed with the patient and her son, consent was obtained, and placed on the chart. The patient was placed in a supine position on the CT table. The appropriate area was prepped and draped in the usual sterile fashion. 1% lidocaine was used to anesthetize the skin over the area of interest. Under CT guidance, an 18 gauge Chiba needle was advanced into the hepatic fluid collection. The inner stylette was removed, and an Amplatz wire was advanced into the fluid collection. The needle was removed, and an 8 [place] locking pigtail drain was advanced over the wire into the fluid collection and secured in place at the skin. 55 cc of turbid bilious fluid were aspirated and sent to the laboratory for evaluation. The patient tolerated the procedure well. FINDINGS: Initial CT demonstrates a large fluid collection. A small amount of gas is present in this collection in addition to pneumobilia within the left hepatic lobe. IMPRESSION: Successful placement of a CT-guided drain placement within a large fluid and gas collection within the right hepatic lobe. 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 Patient has had multiple gastrointestinal bleeds requiring weekly transfusions. Just 4-5 days ago patient was at [facility] having to or more abdominal shunts placed to further drain her chronic liver abscesses after presenting to [facility] emergency department with sepsis. She states after being discharged she had been feeling worse than her prior baseline in terms of generalized weakness and feeling unwell. She has been having intermittent epigastric abdominal pain which is typical for her chronic pain. She was transfused with 2 units of blood while at [facility] and transfused 2 units of blood 2 days ago. Patient denies any fever, chest pain, shortness of breath, nausea, vomiting, dysuria or cough. The patient continued to feel poorly and at [facility] she had her O2 sat checked and was found to be 70-80% and her blood pressure was low at less than 100 systolic this morning. Therefore the [facility] called 911 patient was brought to [facility] emergency room. The emergency room she was evaluated by Dr. Alvaro Dahl who found her hemoglobin to be 5.5 and her hematocrit to be only 17.7. A chest x-ray showed dense retrocardiac consolidation in keeping with pneumonia or aspiration. Therefore, a CT scan was ordered and showed "Status post placement of hepatic drain, however since the prior study dated 03/20/17 there is an enlarging intrahepatic fluid collection, suspicious for persistent abscess, just medial to the pigtail tip as measured above. There is persistence adjacent intrahepatic infiltrative edema and fluid. Please correlate clinically. Small to moderate bilateral pleural effusions with adjacent atelectasis. Cardiomegaly. Large uterine fibroid as before." Due to her complicated history and active GI bleeding the patient was admitted to the hospitalist service for further evaluation and treatment. 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 Patient was transfused 2 units of packed red blood cels on 04/11/17 and 2 units of packed red blood cels on 04/12/17, transfused yesterday - GI on board - Endoscopy done 04/11/17, no signs of active bleeding, continue monitoring - as per Dr. Bynum, patient should be tamoxifen. 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 - ID following - Patient had recent internal biliary drains placed at [facility]. Films were reviewed by Dr. Sam it appears that the drain or drains need to be readjusted. - Patient has a history of sepsis secondary to VRE and Klebsiella. - abscess growing enterococus, fungus - IR drain reinsertion 04/11/17,now upper drain, monitor output and maintain in place Plan - continue flushing q8H - Dr. Joel to consider gel foam if drains dont work, discussed with her on the phone : wants to wait see if drains can work - c/w antibiotics as per ID Severe protein calorie malnutrition, present on admission with a BMI of 17.0 kg/ m. Active - advance diet as tolerated - Ensure drinks for her Anemia of chronic disease - stable - continue to monitor Urinary fibroid mass, which is impinging on the colon resulting in constipation - stable Plan - Continue full liquid diet for now - Mineral oil enema given as an option, patient refuses - continue to monitor Disposition: -pcp is Denisha Baird MD -lives with unassisted Dana DVT PROPHYLAXIS: SCD Disposition: discharge in 1-3 days after patient improves. Labs, radiology tests reviewed. Plan of care, medication side effects, home medication, diagnostic procedures and available alternatives were discussed and reviewed with patient. All questions answered. Patient verbalized understanding, approved and agreed to plan of care. Given patient's current condition, I certify, in my opinion inpatient services greater than two midnights are medically necessary for this patient. GI Prophylaxis: Proton Pump Inhibitor VTE Prophylaxis: SCDs VTE Mechanical Devices: Intermittant Pneumatic CD Resuscitation Status: DNR/DNI:Do Not Resuscitate/Intubate Time spent 35 mins Manjeet Peck MD Apr 21, 2017 13:05
--- NOTE | 2017-04-21 16:53 | NUR ---
NUTRITION FOLLOW UP: Assess: 81 YO Female admitted for symptomatic anemia, PNA and VRE. Pt not medically stable for discharge. GI Bleed secondary to HHT. Hepatic drains persists. PO intake improved with pt eating 50-75% of most meals. PMHx: Ulcerated gastroesophageal junction, Irregular gastroesophageal junction, Gastric and duodenal hereditary hemorrhagic telangiectasia, Hypothyroid, malnutrition, uterine fibroid. LABS: Reviewed. MEDICATIONS: Reviewed. DIET: Soft, Ensure clear all trays. PO 50-75% GI: BM x 1 (04/21) SKIN: Visible muscle/fat loss in face and arms. ANTHROPOMETRICS: Current wt: 42.1 kg. IBW: 52.3 kg. UBW (November): 54 kg. BMI: 17.0 ESTIMATED NEEDS: Malnutrition/Wt gain Calories: 6657-6074 (30-35 kcal/kg BW) Protein: 65-80 g/day (1.2-1.5 g/kg IBW) NUTRITION DIAGNOSIS: 1.) Severe pro/kcal malnutrition related to chronic illness as evidenced by variable wt, visible loss of LBM/ fat, BMI of 17.0-kg--- PERSISTS. INTERVENTION: 1) Continue Ensure CL on all trays per pt preference on previous admits. 2) Pt has had high kcal/pro diet education on numerous occasions during previous admits. MONITOR/EVALUATE: PO intake, labs, weights, GI/nutrition status. Follow per moderate nutrition risk guidelines.
--- NOTE | 2017-04-21 20:03 | PROG NOTE ---
[address] [address] PROGRESS NOTE PATIENT: STEWART UREÑA : 1935 MR#: [id number] ADMIT: 04/05/2017 JOB ID: [id number] DATE: 04/21/2017 REASON FOR FOLLOWUP: Longstanding liver abscess/biloma with polymicrobial infection. INTERVAL HISTORY: Over the weekend, the patient has been relatively stable though she did have a crit drop. She notes that her drain seemed to have resumed production and both of her drains into her liver abscess are now draining significant amounts, which is much improved over the end of last week. She has had no fevers, chills, cough, shortness of breath or chest pain. PHYSICAL EXAMINATION: Reveals an afebrile, thin woman. No acute distress. Temp 37.1, pulse 89, respiratory rate 16, blood pressure 131/79, saturating well on room air. Pale conjunctivae. Lungs clear. Cardiac tones normal with a persistent systolic murmur as before. Right upper quadrant is essentially nontender. Two drains both now with significant output. No other new findings. LABORATORIES: Include a white count 4400, platelet count staying good, 326, despite long-term linezolid. Creatinine less than 0.3. Our most recent cultures from the liver abscess had two species of Enterococcus faecium, one of which was vancomycin resistant, the other vancomycin susceptible. In addition, Nisreen glabrata has grown with a fluconazole JOY of 8. IMPRESSION: This patient seems to be doing reasonably well on oral linezolid and fluconazole. We increased the fluconazole to 300 mg once a day in an effort to produce better levels to try and overcome the relatively high JOY of the Enterococcus to fluconazole. Note that we wish to use fluconazole if at all possible for this chronic infection as it is orally quite bioavailable and much easier to use. Our ultimate success in treating this liver abscess will no doubt be completely contingent on whether adequate drainage can continue. At this point, the serial imaging has shown not much size in the change of the abscess but we have a long ways to go obviously in terms of treatment. RECOMMENDATIONS: 1. Will continue with fluconazole at 300 a day with the plan to probably do that for several weeks. 2. Will cautiously continue with linezolid 600 b.i.d. How long this can safely be continued is unclear, but at this point, the patient has no evidence of neuropathy and her platelet count is still adequate. 3. I understand she will be going to [facility] within the next day or two. There they should check weekly or twice weekly a CBC with platelet count. Should the platelet count start to drop significantly, we may be forced to switch or stop the linezolid. 4. I would like to see the patient in my clinic on May 07. 5. As I will be leaving [facility] for a week for a wedding tomorrow, I am going to go ahead and sign off on this case now but do not hesitate to call me as problems or issues arise with this patient and I will be seeing her in clinic, May 07.
--- NOTE | 2017-04-21 22:32 | NUR ---
Hepatic Drains/Nausea Dressings are CDI. Drains are flushed TID as ordered with 10mls NS and logged/noted - will have NOC shift continue. Existing drain (lateral) had 5mL output at 1400 and 2.5mL out at 2000. Newer drain (medial) had 10mL output at 1400 and 15mL out at 2000. Pt reported some nausea when taking evening meds. Pt declined medication but changed positions in bed and reported nausea to have resolved.
[2017-04-22] VITALS (8 sets, daily range): BP systolic 118–133; BP diastolic 54–78; PULSE 67–112; RESP 14–16; O2SAT 94–99
[2017-04-22 06:17] LABS: BASOPHILS % (AUTO) 0.5 % (0-3); EOSINOPHILS % (AUTO) 1.6 % (0-5); Mean Corpuscular Volume 92.4 fL (81-100); NEUTROPHILS % (AUTO) 71.7 % (40-74); Platelet Count 324 bil/L (150-400)
--- NOTE | 2017-04-22 07:37 | NUR ---
Uneventful Night: Pt had an uneventful night, no c/o pain, chest pain or SOB. Pt slept most of the night, pleasant and cooperative with care.
[2017-04-22] MEDS: Pantoprazole 20 mg ER24 Tablet PO SCH ×2 (10:25→21:36)
[2017-04-22] MEDS: Polyethylene Glycol (PEG) 17 Gm Powder PO SCH (10:26)
--- NOTE | 2017-04-22 14:44 | NUR ---
spiritual care: routine (late entry( conversational visit 04/21. pt pleasant, reflective about medical condition and coping. Shared her gratitude at many friends/family visits and minor mileposts in medical process. prayer
--- NOTE | 2017-04-22 15:59 | NUR ---
Hepatic Drainage NOC shift reported having some difficulty getting output from drain despite flushing drains. Suggest future draining to be continued by draining prior to flushing. Lateral Drain (older) 2.5mL output. Flushed with 10mL NS, also flushed suggest flushing line into bag as drainage is viscous. Medial Drain (newer) 30mL output. Flushed with 10mL NS. Dressings are CDI. Board updated for drainage times, to be continued TID.
--- NOTE | 2017-04-22 16:09 | PCM.PNMED ---
Subjective Date of Service Apr 22, 2017 Subjective Patient seen and examined. Feeling ok. Vitals noted. Exam Vital Signs Vital Sign - Last Date Time Temp Pulse Resp B/P Pulse Ox O2 Delivery O2 Flow Rate FiO2 04/22/17 13:50 36.8 76 16 125/67 98 Room Air Intake and Output 04/21/17 04/21/17 04/22/17 Cumulative From/Thru 15:00 23:00 07:00 04/05/17 11:37 - 04/22/17 06:24 Intake Total 250 ml 441 ml 04288 ml Output Total 600 ml 1225 ml 21719 ml Balance -350 ml -784 ml -2535 ml Intake Oral 250 ml 340 ml 8885 ml IV Total 101 ml 8782 ml Packed Cells 1893 ml Output Urine Total 600 ml 1225 ml 52855 ml Emesis 325 ml Drainage Total 490 ml # Voids 9 # Bowel Movements 1 14 Exam GENERAL: not in distress EYES: EOMI, anicteric, able to fully open and close eyelids RESPIRATORY: Lungs clear to auscultation. Good diaphragmatic excursion. CARDIAC: normal S1 and S2; no rubs, murmurs, or gallops; regular rhythm ABDOMEN: Abdomen soft, non-tender. BS normal. Drains in place, draining well. MUSCULOSKELETAL: ROM full, muscles are not tender EXTREMITIES: no pitting edema in LE, no new deformities or skin discoloration. NEURO: Alert, oriented X 2, Cranial nerves II-XII intact, Grossly normal motor function. Lab and Diagnostics Result Diagram: 04/22/17 0553 04/22/17 0553 Microbiology Urinalysis is unremarkable and culture is not indicated Blood cultures are pending X-Rays, CTs and MRIs PROCEDURE: X-RAY CHEST ONE VIEW, PORTABLE ([id number]) INDICATIONS: hypoxia TECHNIQUE: One view of the chest was acquired. COMPARISON: [facility], CR, XR CHEST 1VW (PORTABLE), 03/20/2017, 17: 34. FINDINGS: Surgical changes and devices: Surgical clips project in the right base of neck. There is a pigtail catheter projecting in the right upper quadrant. Lungs and pleura: Trace left pleural effusion. No right pleural effusion or pneumothorax. There is dense retrocardiac consolidation. Mediastinum: Mediastinal contours appear normal. Heart size is normal. Bones and chest wall: No suspicious bony lesions. Overlying soft tissues appear unremarkable. IMPRESSION: Dense retrocardiac consolidation in keeping with pneumonia or aspiration. Please correlate clinically. Trace left pleural effusion Dictated by: Andre Herring M.D. on 04/05/2017 at 12:33 Approved by: Andre Herring M.D. on 04/05/2017 at 12:34 PROCEDURE: CT CHEST, ABDOMEN AND PELVIS WITH CONTRAST ([id number]) INDICATIONS: SOB, ?pneumonia/effusion, f/u hepatic abscess TECHNIQUE: After the administration of intravenous contrast, 5 mm thick sections acquired from the lung apices to the symphysis. 5 mm coronal and sagittal reformats were performed, with additional 7 mm MIP reformats through the lungs. For radiation dose reduction, the following was used: automated exposure control, adjustment of mA and/or kV according to patient size. COMPARISON: [facility], CT, CT ABD PELVIS W CON, 03/20/2017, 19:02. FINDINGS: Image quality: Excellent. CHEST: Lungs and pleura: Small-moderate bilateral pleural effusions with adjacent atelectasis. Mediastinum: Heart size is enlarged. No pericardial effusion. No mediastinal or hilar adenopathy by size criteria. Thoracic aorta and central pulmonary arteries are normal in size. Esophagus is normal in caliber. No hiatal hernia. Chest wall: No axillary or supraclavicular adenopathy by size criteria. The right lobe of the thyroid is not well-seen. Left lobe unremarkable.. ABDOMEN: Solid organs: There is placement of pigtail catheter drain within the liver. As the prior study there is enlargement of a low collection adjacent to the drain which now measures 5.6 x 5.0 cm, previously 2.2 x 2.3 cm. There is adjacent ill- defined infiltrative edema. Main portal vein appears patent. There is an internal biliary stent as before. Pancreas and spleen grossly unremarkable. No definite adrenal nodule. Bilateral renal cortical thinning. No hydronephrosis. and spleen are normal in size and enhancement. Gallbladder not seen. Biliary system is non dilated. Pancreas enhances normally. No adrenal nodules. Kidneys demonstrate normal size and enhancement, without hydronephrosis. Peritoneum and bowel: Large amount of stool seen throughout the colon. No evidence of bowel obstruction. No free air. No free fluid. Nodes and vessels: No retroperitoneal or mesenteric adenopathy by size criteria. Aorta and inferior vena cava are normal in size. Miscellaneous: No ventral hernias. PELVIS: Genitourinary: Bladder wall thickness is normal. Redemonstration of large left -sided uterine fibroid with central calcification. Miscellaneous: No inguinal hernias or adenopathy. Bones: No suspicious bony lesions. No vertebral body compression fractures. IMPRESSION: Status post placement of hepatic drain, however since the prior study dated 03/20 there is an enlarging intrahepatic fluid collection, suspicious for persistent abscess, just medial to the pigtail tip as measured above. There is persistence adjacent intrahepatic infiltrative edema and fluid. Please correlate clinically. Small to moderate bilateral pleural effusions with adjacent atelectasis. Cardiomegaly. Large uterine fibroid as before. Dictated by: Andre Herring M.D. on 04/05/2017 at 18:39 Approved by: Andre Herring M.D. on 04/05/2017 at 18:55 Cardiac Echo Impressions Echocardiogram Report Name: STEWART UREÑA Graeme e: 02/05/2017 Height: 63 in Hospital Exam Location: [facility] Weight: 90 lb Gender: Female BSA: 1.4 m2 : 1935 Age: 81 yrs BP: 110/54 mmHg Reason For Study: Bacteremia Performed By: Corrie Jeffrey Referring Physician: ADALBERTO KELLEY Interpretation Summary The left ventricle is normal in size. Left ventricular systolic function is normal without focal wall motion abnormalities. The ejection fraction is estimated to be 60-65%. Assessment of diastolic parameters indicates normal left ventricular diastolic function and normal filling pressures. The right ventricle is normal in size and function. The right ventricular systolic pressure is estimated at 34 mmHg assuming a right atrial pressure of 3 mm Hg. The left atrium is mildly dilated. Right atrial size is normal. The aortic valve is trileaflet. The aortic valve opens well. There is no aortic regurgitation. There is very small filamentous strand at the tips of aortic leaflets. This is best seen on parasternal long axis views with inncreased magnification. Differential should include endocarditis or Lambl's excrescence. Given positive blood cultures, OLU is recommended. Other valves do not have any obvious evidence for endocarditis. The aortic root is mildly dilated. The ascending aorta is mildly enlarged. Moderate atherosclerotic plaque(s) in the aortic arch. Additional Diagnostics PROCEDURE: CT ABCESS DRAIN PERITONEAL INDICATIONS: CT guided abscess drain COMPARISON: [facility], CT, CT ABCESS DRAIN PERITONEAL, 12/17/2016, 13:58. Technique: 1. Sedation provided by the anesthesiology service. 2. CT guided abscess drain. The risks and the benefits of the procedure were discussed with the patient and her son, consent was obtained, and placed on the chart. The patient was placed in a supine position on the CT table. The appropriate area was prepped and draped in the usual sterile fashion. 1% lidocaine was used to anesthetize the skin over the area of interest. Under CT guidance, an 18 gauge Chiba needle was advanced into the hepatic fluid collection. The inner stylette was removed, and an Amplatz wire was advanced into the fluid collection. The needle was removed, and an 8 [place]ian locking pigtail drain was advanced over the wire into the fluid collection and secured in place at the skin. 55 cc of turbid bilious fluid were aspirated and sent to the laboratory for evaluation. The patient tolerated the procedure well. FINDINGS: Initial CT demonstrates a large fluid collection. A small amount of gas is present in this collection in addition to pneumobilia within the left hepatic lobe. IMPRESSION: Successful placement of a CT-guided drain placement within a large fluid and gas collection within the right hepatic lobe. 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 Patient has had multiple gastrointestinal bleeds requiring weekly transfusions. Just 4-5 days ago patient was at [facility] having to or more abdominal shunts placed to further drain her chronic liver abscesses after presenting to [facility] emergency department with sepsis. She states after being discharged she had been feeling worse than her prior baseline in terms of generalized weakness and feeling unwell. She has been having intermittent epigastric abdominal pain which is typical for her chronic pain. She was transfused with 2 units of blood while at [facility] and transfused 2 units of blood 2 days ago. Patient denies any fever, chest pain, shortness of breath, nausea, vomiting, dysuria or cough. The patient continued to feel poorly and at [facility] she had her O2 sat checked and was found to be 70-80% and her blood pressure was low at less than 100 systolic this morning. Therefore the [facility] called 911 patient was brought to [facility] emergency room. The emergency room she was evaluated by Dr. Alvaro Dahl who found her hemoglobin to be 5.5 and her hematocrit to be only 17.7. A chest x-ray showed dense retrocardiac consolidation in keeping with pneumonia or aspiration. Therefore, a CT scan was ordered and showed "Status post placement of hepatic drain, however since the prior study dated 03/20/17 there is an enlarging intrahepatic fluid collection, suspicious for persistent abscess, just medial to the pigtail tip as measured above. There is persistence adjacent intrahepatic infiltrative edema and fluid. Please correlate clinically. Small to moderate bilateral pleural effusions with adjacent atelectasis. Cardiomegaly. Large uterine fibroid as before." Due to her complicated history and active GI bleeding the patient was admitted to the hospitalist service for further evaluation and treatment. 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 Patient was transfused 2 units of packed red blood cels on 04/11/17 and 2 units of packed red blood cels on 04/12/17 and 04/20/17 - GI on board, will contact again, if hgb continues to trend down - Endoscopy done 04/11/17, no signs of active bleeding, continue monitoring - as per Dr. Bynum, patient should be tamoxifen. 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 - ID following - Patient had recent internal biliary drains placed at [facility]. Films were reviewed by Dr. Sam it appears that the drain or drains need to be readjusted. - Patient has a history of sepsis secondary to VRE and Klebsiella. - abscess growing enterococus, fungus - IR drain reinsertion 04/11/17,now upper drain, monitor output and maintain in place Plan - continue flushing q8H - Dr. Joel to consider gel foam if drains dont work, discussed with her on the phone : wants to wait see if drains can work - c/w antibiotics as per ID Severe protein calorie malnutrition, present on admission with a BMI of 17.0 kg/ m. Active - advance diet as tolerated - Ensure drinks for her Anemia of chronic disease - stable - continue to monitor Urinary fibroid mass, which is impinging on the colon resulting in constipation - stable Plan - Continue full liquid diet for now - Mineral oil enema given as an option, patient refuses - continue to monitor Disposition: -pcp is Denisha Baird MD -lives with unassisted Dike DVT PROPHYLAXIS: SCD Disposition: discharge in 1-3 days after patient improves. Labs, radiology tests reviewed. Plan of care, medication side effects, home medication, diagnostic procedures and available alternatives were discussed and reviewed with patient. All questions answered. Patient verbalized understanding, approved and agreed to plan of care. Given patient's current condition, I certify, in my opinion inpatient services greater than two midnights are medically necessary for this patient. GI Prophylaxis: Proton Pump Inhibitor VTE Prophylaxis: SCDs VTE Mechanical Devices: Intermittant Pneumatic CD Resuscitation Status: DNR/DNI:Do Not Resuscitate/Intubate Time spent 35 mins Manjeet Peck MD Apr 22, 2017 16:09
[2017-04-22] MEDS ORDERED: diphenhydrAMINE 25 mg Capsule PO PRN (16:40)
[2017-04-23] VITALS (11 sets, daily range): BP systolic 120–155; BP diastolic 49–79; PULSE 75–103; RESP 12–20; O2SAT 96–100
[2017-04-23 06:25] LABS: BASOPHILS % (AUTO) 0.5 % (0-3); EOSINOPHILS % (AUTO) 3.2 % (0-5); Mean Corpuscular Hemoglobin 30.4 pg (27.0-35.0); Mean Corpuscular Volume 92.6 fL (81-100); Platelet Count 273 bil/L (150-400)
--- NOTE | 2017-04-23 06:25 | NUR ---
Hepatic Drainage Right Hepatic Drain (old drain) flushed with NS 10ML at 2200 and 0530, appears patent, a total of 20ml NS flush in, only 7.5ml drainage out. Drainage light yellow and thin . Medial Hepatic Drain (new drain) flushed with NS 10ML at 2200 and 0530, appears patent, a total of 20ml NS flush in, 20ml drainage out. Drainage dark green and thick with large cotton-like sediments.
--- NOTE | 2017-04-23 06:53 | NUR ---
H/H down H/H down to 7.0/21.3 this am. H&H 8.3/25.6 yesterday morning. BP stable. Robb hospitalist paged at [phone].
--- NOTE | 2017-04-23 07:48 | PCM.PNMED ---
Subjective Date of Service Apr 23, 2017 Subjective Continues very weak, difficulty even walking. Despite getting blood on 04/10/17, hb continue to drift down, 7 today. No hematemesis but persists with black stool. Tamoxifen started to help with clotting. Exam Vital Signs Vital Sign - Last Date Time Temp Pulse Resp B/P Pulse Ox O2 Delivery O2 Flow Rate FiO2 04/23/17 04:05 36.8 88 14 129/72 99 Room Air Intake and Output 04/22/17 04/22/17 04/23/17 Cumulative From/Thru 15:00 23:00 07:00 04/05/17 11:37 - 04/23/17 06:21 Intake Total 250 ml 199 ml 24750 ml Output Total 15 ml 670 ml 950 ml 72962 ml Balance -15 ml -420 ml -751 ml -3721 ml Intake Oral 250 ml 0 ml 9135 ml IV Total 199 ml 8981 ml Packed Cells 1893 ml Output Urine Total 670 ml 950 ml 29504 ml Emesis 325 ml Drainage Total 15 ml 0 ml 505 ml # Voids 9 # Bowel Movements 0 14 Exam Skin warm and dry with out rash HENT; no lesion, adequate hydration Card; S1S2 present , no murmur, no JVD, no sig edema Resp; clear anteriorly GI, drains in place, soft non acute No edema Lab and Diagnostics Result Diagram: 04/23/17 0555 04/22/17 0553 Microbiology Urinalysis is unremarkable and culture is not indicated Blood cultures are pending X-Rays, CTs and MRIs PROCEDURE: X-RAY CHEST ONE VIEW, PORTABLE ([id number]) INDICATIONS: hypoxia TECHNIQUE: One view of the chest was acquired. COMPARISON: [facility], CR, XR CHEST 1VW (PORTABLE), 03/20/2017, 17: 34. FINDINGS: Surgical changes and devices: Surgical clips project in the right base of neck. There is a pigtail catheter projecting in the right upper quadrant. Lungs and pleura: Trace left pleural effusion. No right pleural effusion or pneumothorax. There is dense retrocardiac consolidation. Mediastinum: Mediastinal contours appear normal. Heart size is normal. Bones and chest wall: No suspicious bony lesions. Overlying soft tissues appear unremarkable. IMPRESSION: Dense retrocardiac consolidation in keeping with pneumonia or aspiration. Please correlate clinically. Trace left pleural effusion Dictated by: Andre Herring M.D. on 04/05/2017 at 12:33 Approved by: Andre Herring M.D. on 04/05/2017 at 12:34 PROCEDURE: CT CHEST, ABDOMEN AND PELVIS WITH CONTRAST ([id number]) INDICATIONS: SOB, ?pneumonia/effusion, f/u hepatic abscess TECHNIQUE: After the administration of intravenous contrast, 5 mm thick sections acquired from the lung apices to the symphysis. 5 mm coronal and sagittal reformats were performed, with additional 7 mm MIP reformats through the lungs. For radiation dose reduction, the following was used: automated exposure control, adjustment of mA and/or kV according to patient size. COMPARISON: [facility], CT, CT ABD PELVIS W CON, 03/20/2017, 19:02. FINDINGS: Image quality: Excellent. CHEST: Lungs and pleura: Small-moderate bilateral pleural effusions with adjacent atelectasis. Mediastinum: Heart size is enlarged. No pericardial effusion. No mediastinal or hilar adenopathy by size criteria. Thoracic aorta and central pulmonary arteries are normal in size. Esophagus is normal in caliber. No hiatal hernia. Chest wall: No axillary or supraclavicular adenopathy by size criteria. The right lobe of the thyroid is not well-seen. Left lobe unremarkable.. ABDOMEN: Solid organs: There is placement of pigtail catheter drain within the liver. As the prior study there is enlargement of a low collection adjacent to the drain which now measures 5.6 x 5.0 cm, previously 2.2 x 2.3 cm. There is adjacent ill- defined infiltrative edema. Main portal vein appears patent. There is an internal biliary stent as before. Pancreas and spleen grossly unremarkable. No definite adrenal nodule. Bilateral renal cortical thinning. No hydronephrosis. and spleen are normal in size and enhancement. Gallbladder not seen. Biliary system is non dilated. Pancreas enhances normally. No adrenal nodules. Kidneys demonstrate normal size and enhancement, without hydronephrosis. Peritoneum and bowel: Large amount of stool seen throughout the colon. No evidence of bowel obstruction. No free air. No free fluid. Nodes and vessels: No retroperitoneal or mesenteric adenopathy by size criteria. Aorta and inferior vena cava are normal in size. Miscellaneous: No ventral hernias. PELVIS: Genitourinary: Bladder wall thickness is normal. Redemonstration of large left -sided uterine fibroid with central calcification. Miscellaneous: No inguinal hernias or adenopathy. Bones: No suspicious bony lesions. No vertebral body compression fractures. IMPRESSION: Status post placement of hepatic drain, however since the prior study dated 03/20 there is an enlarging intrahepatic fluid collection, suspicious for persistent abscess, just medial to the pigtail tip as measured above. There is persistence adjacent intrahepatic infiltrative edema and fluid. Please correlate clinically. Small to moderate bilateral pleural effusions with adjacent atelectasis. Cardiomegaly. Large uterine fibroid as before. Dictated by: Andre Herring M.D. on 04/05/2017 at 18:39 Approved by: Andre Herring M.D. on 04/05/2017 at 18:55 Cardiac Echo Impressions Echocardiogram Report Name: STEWART UREÑA Graeme e: 02/05/2017 Height: 63 in Hospital Exam Location: [facility] Weight: 90 lb Gender: Female BSA: 1.4 m2 : 1935 Age: 81 yrs BP: 110/54 mmHg Reason For Study: Bacteremia Performed By: Corrie Jeffrey Referring Physician: ADALBERTO KELLEY Interpretation Summary The left ventricle is normal in size. Left ventricular systolic function is normal without focal wall motion abnormalities. The ejection fraction is estimated to be 60-65%. Assessment of diastolic parameters indicates normal left ventricular diastolic function and normal filling pressures. The right ventricle is normal in size and function. The right ventricular systolic pressure is estimated at 34 mmHg assuming a right atrial pressure of 3 mm Hg. The left atrium is mildly dilated. Right atrial size is normal. The aortic valve is trileaflet. The aortic valve opens well. There is no aortic regurgitation. There is very small filamentous strand at the tips of aortic leaflets. This is best seen on parasternal long axis views with inncreased magnification. Differential should include endocarditis or Lambl's excrescence. Given positive blood cultures, OLU is recommended. Other valves do not have any obvious evidence for endocarditis. The aortic root is mildly dilated. The ascending aorta is mildly enlarged. Moderate atherosclerotic plaque(s) in the aortic arch. Additional Diagnostics PROCEDURE: CT ABCESS DRAIN PERITONEAL INDICATIONS: CT guided abscess drain COMPARISON: [facility], CT, CT ABCESS DRAIN PERITONEAL, 12/17/2016, 13:58. Technique: 1. Sedation provided by the anesthesiology service. 2. CT guided abscess drain. The risks and the benefits of the procedure were discussed with the patient and her son, consent was obtained, and placed on the chart. The patient was placed in a supine position on the CT table. The appropriate area was prepped and draped in the usual sterile fashion. 1% lidocaine was used to anesthetize the skin over the area of interest. Under CT guidance, an 18 gauge Chiba needle was advanced into the hepatic fluid collection. The inner stylette was removed, and an Amplatz wire was advanced into the fluid collection. The needle was removed, and an 8 Mohawk locking pigtail drain was advanced over the wire into the fluid collection and secured in place at the skin. 55 cc of turbid bilious fluid were aspirated and sent to the laboratory for evaluation. The patient tolerated the procedure well. FINDINGS: Initial CT demonstrates a large fluid collection. A small amount of gas is present in this collection in addition to pneumobilia within the left hepatic lobe. IMPRESSION: Successful placement of a CT-guided drain placement within a large fluid and gas collection within the right hepatic lobe. 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 Patient has had multiple gastrointestinal bleeds requiring weekly transfusions. Just 4-5 days ago patient was at [facility] having to or more abdominal shunts placed to further drain her chronic liver abscesses after presenting to [facility] emergency department with sepsis. She states after being discharged she had been feeling worse than her prior baseline in terms of generalized weakness and feeling unwell. She has been having intermittent epigastric abdominal pain which is typical for her chronic pain. She was transfused with 2 units of blood while at [facility] and transfused 2 units of blood 2 days ago. Patient denies any fever, chest pain, shortness of breath, nausea, vomiting, dysuria or cough. The patient continued to feel poorly and at [facility] she had her O2 sat checked and was found to be 70-80% and her blood pressure was low at less than 100 systolic this morning. Therefore the [facility] called 911 patient was brought to [facility] emergency room. The emergency room she was evaluated by Dr. Alvaro Dahl who found her hemoglobin to be 5.5 and her hematocrit to be only 17.7. A chest x-ray showed dense retrocardiac consolidation in keeping with pneumonia or aspiration. Therefore, a CT scan was ordered and showed "Status post placement of hepatic drain, however since the prior study dated 03/20/17 there is an enlarging intrahepatic fluid collection, suspicious for persistent abscess, just medial to the pigtail tip as measured above. There is persistence adjacent intrahepatic infiltrative edema and fluid. Please correlate clinically. Small to moderate bilateral pleural effusions with adjacent atelectasis. Cardiomegaly. Large uterine fibroid as before." Due to her complicated history and active GI bleeding the patient was admitted to the hospitalist service for further evaluation and treatment. 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 Patient was transfused 2 units of packed red blood cels on 04/11/17, 2 units of packed red blood cels on 04/12/17 and 04/20/17, 2 units on 04/23/17 - GI on board, will contact again, if hgb continues to trend down - Endoscopy done 04/11/17, no signs of active bleeding, continue monitoring - as per Dr. Bynum, patient should be tamoxifen. 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 - ID following - Patient had recent internal biliary drains placed at [facility]. Films were reviewed by Dr. Sam it appears that the drain or drains need to be readjusted. - Patient has a history of sepsis secondary to VRE and Klebsiella. - abscess growing enterococus, fungus - IR drain reinsertion 04/11/17,now upper drain, monitor output and maintain in place Plan - continue flushing q8H - Dr. Joel to consider gel foam if drains dont work, discussed with her on the phone : wants to wait see if drains can work - c/w antibiotics as per ID Severe protein calorie malnutrition, present on admission with a BMI of 17.0 kg/ m. Active - advance diet as tolerated - Ensure drinks for her Anemia of chronic disease - stable - continue to monitor Urinary fibroid mass, which is impinging on the colon resulting in constipation - stable Plan - Continue full liquid diet for now - Mineral oil enema given as an option, patient refuses - continue to monitor Disposition: -pcp is Denisha Baird MD -lives with unassisted [place] DVT PROPHYLAXIS: SCD Disposition: discharge in 1-3 days after patient improves. Labs, radiology tests reviewed. Plan of care, medication side effects, home medication, diagnostic procedures and available alternatives were discussed and reviewed with patient. All questions answered. Patient verbalized understanding, approved and agreed to plan of care. Given patient's current condition, I certify, in my opinion inpatient services greater than two midnights are medically necessary for this patient. GI Prophylaxis: Proton Pump Inhibitor VTE Prophylaxis: SCDs VTE Mechanical Devices: Intermittant Pneumatic CD Resuscitation Status: DNR/DNI:Do Not Resuscitate/Intubate Erika Benson MD Apr 23, 2017 07:48
[2017-04-23] MEDS: Polyethylene Glycol (PEG) 17 Gm Powder PO SCH (08:30)
[2017-04-23] MEDS: Pantoprazole 20 mg ER24 Tablet PO SCH ×2 (10:20→20:57)
--- NOTE | 2017-04-23 11:08 | NUR ---
Palliative Care - Cancelled Palliative Care received verbal order from Dr Benson during a.m. discharge rounds 04/23/17. Palliative Care has seen patient many times during previous admissions. During her last admission, she said she no longer wanted to see Palliative Care. Patient is already DNR/DNI but continues to pursue full care/treatment. Dr Tafoya discussed case with Dr Benson after rounds and it was decided that Palliative Care will not see patient. Palliative Care order cancelled 04/23/17. Hilary Ash
[2017-04-23] MEDS: 0.9% Sodium Chloride 250 ML IV PRN ×2 (11:14→14:27)
--- NOTE | 2017-04-23 14:58 | NUR ---
Blood Transfusion: order received to transfuse 2uPRBC. Began 1st infusion @ 1135, 15min vitals check stable. Completed @ 1410. Vitals remain stable, no s/s of blood transfusion reaction. 2nd u PRBC started @1455.
--- NOTE | 2017-04-23 15:37 | CCA NOTE ---
[facility] [address] [address] MEDICAL ONCOLOGY OFFICE NOTE PATIENT: STEWART UREÑA : 1935 MR#: [id number] DATE: 04/05/2017 JOB ID: [id number] DATE: 04/23/2017 SUBJECTIVE: The patient is an 81-year-old woman with hereditary hemorrhagic telangiectasia. She has frequent gastrointestinal bleeding. She has a VRE-positive hepatic abscess with two stents, placed at [facility]. She has been on linezolid and ertapenem. She requires frequent red cell transfusions, but with ongoing blood loss, has not developed any evidence of iron overload. She is feeling extremely weak today. She was barely able to lift her legs. No fevers. OBJECTIVE: Vitals: T 36.8, P 88, R 14, BP 129/72. O2 saturation 99% on room air. HEENT: Conjunctivae pale. Mucous membranes moist. Chest: Clear. Cardiac examination: Regular rate and rhythm. Abdomen: Percutaneous drains are present. Mild tenderness in the right upper quadrant. Active bowel tones. Extremities: Extensive muscular wasting. 2+ distal pulses. LABORATORIES: WBC 5.6, hemoglobin 7.0, hematocrit 21.3%, platelets 273,000. ASSESSMENT AND PLAN: 1. Symptomatic anemia in the setting of ongoing blood loss from hereditary hemorrhagic telangiectasias: The patient is profoundly weak. Type and cross. Transfuse 2 units packed red blood cells today after premedication. Recommend further input from Dr. Sam. The patient likely has continued GI bleeding. I am not sure how valuable repeat guaiac testing is to her care. 2. Right liver abscess: The patient has vancomycin-resistant Enterococcus and Klebsiella. Dr. Webber, who is now out of town, has the patient on linezolid and ertapenem. I am not sure if there are any neurologic effects that could limit the patient's strength in her lower extremities, which I believe is more likely due to her significant anemia and muscular wasting.
[2017-04-23] MEDS: HYDROcodone-APAP 5-325 mg Tablet PO PRN (18:31)
[2017-04-24 04:42] VITALS: BP 119/69; PULSE 91; RESP 14; O2SAT 96
--- NOTE | 2017-04-24 05:54 | NUR ---
NOC activity Pt states that she had a good sleep last night. Denies chest pain, sob, n/v or abd discomfort. Telemetry DC by MD. RINALDI and has been afebrile overnight. Hourly rounding done. Addendum: 04/24/17 at 0604 by CELIA LOFTON RN both hepatic drains flushed with 10cc saline.
[2017-04-24 06:32] LABS: BASOPHILS % (AUTO) 0.7 % (0-3); EOSINOPHILS % (AUTO) 4.1 % (0-5); MONOCYTES % (AUTO) 14.7 % (4-12); Mean Corpuscular Hemoglobin 30.5 pg (27.0-35.0); Mean Corpuscular Volume 90.2 fL (81-100); NEUTROPHILS % (AUTO) 69.8 % (40-74); Platelet Count 304 bil/L (150-400)
[2017-04-24] MEDS: Polyethylene Glycol (PEG) 17 Gm Powder PO SCH (08:30)
--- NOTE | 2017-04-24 08:56 | PROG NOTE ---
[address] [address] PROGRESS NOTE PATIENT: STEWART UREÑA : 1935 MR#: [id number] ADMIT: 04/05/2017 JOB ID: [id number] DATE: 04/24/2017 SUBJECTIVE: The patient is an 81-year-old woman with symptomatic anemia from a gastrointestinal bleeding associated with hereditary hemorrhagic telangiectasia. She received another 2 units packed red blood cells yesterday. She is feeling slightly stronger. However, the legs are much weaker than usual. Upper body strength is normal for her. She is concerned about possible drug interaction between her tamoxifen and her linezolid and/or Dipentum. She did not get physical therapy yesterday because she was asleep when they came by to check on her. OBJECTIVE: Vitals: T 37.0, P 91, R 14, BP 119/69. O2 saturation 96% on room air. HEENT: Conjunctivae slightly pale. Mucous membranes moist. Chest: Clear. Cardiac exam: Regular. Abdomen: Soft. Percutaneous tubes in the right upper quadrant are intact and not do not appear inflamed. Extremities: Extensive muscular wasting. 2+ distal pulses. No calf tenderness. LABORATORIES: WBC 6.1, hemoglobin 9.0, hematocrit 26.6%, platelets 304,000. ASSESSMENT AND PLAN: 1. Hereditary hemorrhagic telangiectasia: The patient received another 2 units packed red blood cells yesterday. Hematocrit improved from 21.3% to 26.6%. She is minimally stronger. If discharged, please arrange followup in the Cancer Center weekly with CBC, differential, platelets. Additional transfusion support would be arranged as needed. Recommend discontinuing tamoxifen due to concerns about possible drug interaction. Rather, she could resume her previous estradiol treatment, which did effectively reduce her transfusion needs to about once every 2-3 months. 2. Hepatic abscess: As above, consider discontinuing tamoxifen and replacing with estradiol given concerns about drug interaction. In addition, she is scheduled for percutaneous drainage tube exchange at [facility] next week. Cc: Dr. Suraj Benson
--- NOTE | 2017-04-24 09:01 | NUR ---
Social Work-readiness for discharge: Data: EMR reviewed. Pt is on day 19 of hospitalization for anemia per H&P. Pt is not medically stable at this time. [facility] is able to accept pt back when medically stable. Insurance authorization has been obtained. Paperwork in the chart. SW will continue to follow. Assessment:Pt to benefit from SNF. Plan: Pt will return to [facility] when medically stable. Insurance authorization has been obtained. Paperwork in the chart. SW will continue to follow. SOHAN Gayle
[2017-04-24 09:02] VITALS: BP 108/58; PULSE 99; RESP 16; O2SAT 96
[2017-04-24] MEDS: Pantoprazole 20 mg ER24 Tablet PO SCH ×2 (09:28→20:53)
[2017-04-24 09:33] VITALS: BP 118/60; PULSE 92; RESP 16; O2SAT 96
--- NOTE | 2017-04-24 16:22 | NUR ---
DAYS 7-7 Patient resting in bed most of day, reports leg weakness, medication changes made but MD to minimize side effects (d/c Tamoxifin). Minimal output for from hepatic drains which where flushed at 0900. Denies SOB, telemetry removed yesterday, Hgb 9, Hct 26 today after recieving 2 units RBC's yesterday. Patient c/ neck pain and given Tylenol with good relief, she has visited with family this afternoon. Patient BMI 17.
[2017-04-24 18:18] VITALS: BP 104/61; PULSE 98; RESP 16; O2SAT 97
[2017-04-24] MEDS: Ondansetron 2 mg/mL 2 mL Inj IVPUSH PRN (18:39)
--- NOTE | 2017-04-24 19:53 | PCM.PNMED ---
Subjective Date of Service Apr 24, 2017 Subjective Patient was seen and examined at bedside today. Patient denies any chest pain, shortness of breath, nausea, vomiting, diarrhea. Patient states that she is feeling better today and has minimal complaints at this time. Overnight events: None Exam Vital Signs Vital Sign - Last Date Time Temp Pulse Resp B/P Pulse Ox O2 Delivery O2 Flow Rate FiO2 04/24/17 18:18 36.7 98 16 104/61 97 Room Air Intake and Output 04/23/17 04/23/17 04/24/17 Cumulative From/Thru 15:00 23:00 07:00 04/05/17 11:37 - 04/24/17 06:49 Intake Total 350 ml 922 ml 172 ml 81169 ml Output Total 760 ml 870 ml 56145 ml Balance 350 ml 162 ml -698 ml -3907 ml Intake Oral 572 ml 50 ml 9757 ml IV Total 50 ml 50 ml 122 ml 9203 ml Packed Cells 300 ml 300 ml 2493 ml Output Urine Total 700 ml 850 ml 94095 ml Emesis 325 ml Drainage Total 60 ml 20 ml 585 ml # Voids 9 # Bowel Movements 1 15 Exam Physical Exam: GEN: Patient was awake, alert, responding appropriately to questions HEENT: Pupils equal round and reactive to light, extraocular eye muscles intact , Neck soft supple, trachea midline, nomocephalic/atraumatic CV: +S1/S2, regular rate and rhythm, systolic murmur auscultated Respiratory: CTAB, no wheezes, rales, rhonchi GI: +bowel sounds x4, soft, compressible, nontender to palpation, GI drains in place with minimal drainage EXT: no clubbing, cyanosis, edema Neuro: Cranial nerves II-XII grossly intact Psych: mood and affect were appropriate IVs and Medications Medications Reviewed: Medications were reviewed in detail Lab and Diagnostics Result Diagram: 04/24/17 0549 04/22/17 0553 Microbiology Urinalysis is unremarkable and culture is not indicated Blood cultures are pending X-Rays, CTs and MRIs PROCEDURE: X-RAY CHEST ONE VIEW, PORTABLE ([id number]) INDICATIONS: hypoxia TECHNIQUE: One view of the chest was acquired. COMPARISON: [facility], CR, XR CHEST 1VW (PORTABLE), 03/20/2017, 17: 34. FINDINGS: Surgical changes and devices: Surgical clips project in the right base of neck. There is a pigtail catheter projecting in the right upper quadrant. Lungs and pleura: Trace left pleural effusion. No right pleural effusion or pneumothorax. There is dense retrocardiac consolidation. Mediastinum: Mediastinal contours appear normal. Heart size is normal. Bones and chest wall: No suspicious bony lesions. Overlying soft tissues appear unremarkable. IMPRESSION: Dense retrocardiac consolidation in keeping with pneumonia or aspiration. Please correlate clinically. Trace left pleural effusion Dictated by: Andre Herring M.D. on 04/05/2017 at 12:33 Approved by: Andre Herring M.D. on 04/05/2017 at 12:34 PROCEDURE: CT CHEST, ABDOMEN AND PELVIS WITH CONTRAST ([id number]) INDICATIONS: SOB, ?pneumonia/effusion, f/u hepatic abscess TECHNIQUE: After the administration of intravenous contrast, 5 mm thick sections acquired from the lung apices to the symphysis. 5 mm coronal and sagittal reformats were performed, with additional 7 mm MIP reformats through the lungs. For radiation dose reduction, the following was used: automated exposure control, adjustment of mA and/or kV according to patient size. COMPARISON: [facility], CT, CT ABD PELVIS W CON, 03/20/2017, 19:02. FINDINGS: Image quality: Excellent. CHEST: Lungs and pleura: Small-moderate bilateral pleural effusions with adjacent atelectasis. Mediastinum: Heart size is enlarged. No pericardial effusion. No mediastinal or hilar adenopathy by size criteria. Thoracic aorta and central pulmonary arteries are normal in size. Esophagus is normal in caliber. No hiatal hernia. Chest wall: No axillary or supraclavicular adenopathy by size criteria. The right lobe of the thyroid is not well-seen. Left lobe unremarkable.. ABDOMEN: Solid organs: There is placement of pigtail catheter drain within the liver. As the prior study there is enlargement of a low collection adjacent to the drain which now measures 5.6 x 5.0 cm, previously 2.2 x 2.3 cm. There is adjacent ill- defined infiltrative edema. Main portal vein appears patent. There is an internal biliary stent as before. Pancreas and spleen grossly unremarkable. No definite adrenal nodule. Bilateral renal cortical thinning. No hydronephrosis. and spleen are normal in size and enhancement. Gallbladder not seen. Biliary system is non dilated. Pancreas enhances normally. No adrenal nodules. Kidneys demonstrate normal size and enhancement, without hydronephrosis. Peritoneum and bowel: Large amount of stool seen throughout the colon. No evidence of bowel obstruction. No free air. No free fluid. Nodes and vessels: No retroperitoneal or mesenteric adenopathy by size criteria. Aorta and inferior vena cava are normal in size. Miscellaneous: No ventral hernias. PELVIS: Genitourinary: Bladder wall thickness is normal. Redemonstration of large left -sided uterine fibroid with central calcification. Miscellaneous: No inguinal hernias or adenopathy. Bones: No suspicious bony lesions. No vertebral body compression fractures. IMPRESSION: Status post placement of hepatic drain, however since the prior study dated 03/20 there is an enlarging intrahepatic fluid collection, suspicious for persistent abscess, just medial to the pigtail tip as measured above. There is persistence adjacent intrahepatic infiltrative edema and fluid. Please correlate clinically. Small to moderate bilateral pleural effusions with adjacent atelectasis. Cardiomegaly. Large uterine fibroid as before. Dictated by: Andre Herring M.D. on 04/05/2017 at 18:39 Approved by: Andre Herring M.D. on 04/05/2017 at 18:55 Cardiac Echo Impressions Echocardiogram Report Name: STEWART UREÑA Graeme e: 02/05/2017 Height: 63 in Hospital Exam Location: [facility] Weight: 90 lb Gender: Female BSA: 1.4 m2 : 1935 Age: 81 yrs BP: 110/54 mmHg Reason For Study: Bacteremia Performed By: Corrie Jeffrey Referring Physician: ADALBERTO KELLEY Interpretation Summary The left ventricle is normal in size. Left ventricular systolic function is normal without focal wall motion abnormalities. The ejection fraction is estimated to be 60-65%. Assessment of diastolic parameters indicates normal left ventricular diastolic function and normal filling pressures. The right ventricle is normal in size and function. The right ventricular systolic pressure is estimated at 34 mmHg assuming a right atrial pressure of 3 mm Hg. The left atrium is mildly dilated. Right atrial size is normal. The aortic valve is trileaflet. The aortic valve opens well. There is no aortic regurgitation. There is very small filamentous strand at the tips of aortic leaflets. This is best seen on parasternal long axis views with inncreased magnification. Differential should include endocarditis or Lambl's excrescence. Given positive blood cultures, OLU is recommended. Other valves do not have any obvious evidence for endocarditis. The aortic root is mildly dilated. The ascending aorta is mildly enlarged. Moderate atherosclerotic plaque(s) in the aortic arch. Additional Diagnostics PROCEDURE: CT ABCESS DRAIN PERITONEAL INDICATIONS: CT guided abscess drain COMPARISON: [facility], CT, CT ABCESS DRAIN PERITONEAL, 12/17/2016, 13:58. Technique: 1. Sedation provided by the anesthesiology service. 2. CT guided abscess drain. The risks and the benefits of the procedure were discussed with the patient and her son, consent was obtained, and placed on the chart. The patient was placed in a supine position on the CT table. The appropriate area was prepped and draped in the usual sterile fashion. 1% lidocaine was used to anesthetize the skin over the area of interest. Under CT guidance, an 18 gauge Chiba needle was advanced into the hepatic fluid collection. The inner stylette was removed, and an Amplatz wire was advanced into the fluid collection. The needle was removed, and an 8 Persian locking pigtail drain was advanced over the wire into the fluid collection and secured in place at the skin. 55 cc of turbid bilious fluid were aspirated and sent to the laboratory for evaluation. The patient tolerated the procedure well. FINDINGS: Initial CT demonstrates a large fluid collection. A small amount of gas is present in this collection in addition to pneumobilia within the left hepatic lobe. IMPRESSION: Successful placement of a CT-guided drain placement within a large fluid and gas collection within the right hepatic lobe. 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 Patient has had multiple gastrointestinal bleeds requiring weekly transfusions. Just 4-5 days prior to admission patient was at [facility] having to or more abdominal shunts placed to further drain her chronic liver abscesses after presenting to [facility] emergency department with sepsis. 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 Patient was transfused 2 units of packed red blood cels on 04/11/17, 2 units of packed red blood cels on 04/12/17 and 04/20/17, 2 units on 04/23/17 - GI following - Endoscopy done 04/11/17, no signs of active bleeding, continue monitoring - As per Dr. Bynum, will be discontinued from tamoxifen to restart patient's previous estradiol. 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 - ID following - Patient had recent internal biliary drains placed at [facility]. Films were reviewed by Dr. Sam it appears that the drain or drains need to be readjusted. - Patient has a history of sepsis secondary to VRE and Klebsiella. - abscess growing enterococus, fungus - IR drain reinsertion 04/11/17,now upper drain, monitor output and maintain in place Plan - continue flushing q8H - Dr. Joel to consider gel foam if drains dont work, discussed with her on the phone : wants to wait see if drains can work - c/w antibiotics as per ID Severe protein calorie malnutrition, present on admission with a BMI of 17.0 kg/ m. Active - advance diet as tolerated - Ensure meal replacements at every meal Anemia of chronic disease - stable - continue to monitor Urinary fibroid mass, which is impinging on the colon resulting in constipation - stable Plan - Continue full liquid diet for now - Mineral oil enema given as an option, patient refuses - continue to monitor Disposition: -pcp is Denisha Baird MD -lives with [facility] DVT PROPHYLAXIS: SCD Disposition: Patient is currently progressing. Dr. Bynum would like to discontinue tamoxifen and will place the patient on her estradiol as this medication seemed to help decrease the patient's need for blood transfusions down to only 2-3 times a month. At this time the patient remains stable we will continue to monitor if she is doing well she may be able to be discharged home tomorrow or the next day. GI Prophylaxis: Proton Pump Inhibitor VTE Prophylaxis: SCDs VTE Mechanical Devices: Intermittant Pneumatic CD Resuscitation Status: DNR/DNI:Do Not Resuscitate/Intubate Nano Araujo DO Apr 24, 2017 19:53
[2017-04-24] MEDS: HYDROcodone-APAP 5-325 mg Tablet PO PRN (20:56)
[2017-04-24 21:01] VITALS: BP 138/68; PULSE 98; RESP 18; O2SAT 94
[2017-04-25 05:04] VITALS: BP 131/81; PULSE 85; RESP 18; O2SAT 94
--- NOTE | 2017-04-25 05:51 | NUR ---
NOC Activity Pt states that she's feeling much stronger today. Pleasant and cooperative today. Flushed hepatic drains with 10cc saline. Denies chest pain, sob, n/v reports of mild abd discomfort. Relieved with Vicodin.
[2017-04-25 06:41] LABS: Mean Corpuscular Hemoglobin 30.7 pg (27.0-35.0); Mean Corpuscular Volume 92.3 fL (81-100)
[2017-04-25 08:30] VITALS: BP 114/40; PULSE 74; RESP 18; O2SAT 92
[2017-04-25] MEDS: Pantoprazole 20 mg ER24 Tablet PO SCH ×2 (09:10→20:53)
[2017-04-25] MEDS: Polyethylene Glycol (PEG) 17 Gm Powder PO SCH (09:11)
[2017-04-25 10:26] VITALS: BP 127/71; PULSE 83; RESP 16
[2017-04-25 10:54] VITALS: BP 127/70; PULSE 89; RESP 16
--- NOTE | 2017-04-25 14:56 | NUR ---
BLOOD Patient received one unit of RBC's today, tolerated this well. Patient eating more today, family and friends in visiting. C/O neck pain, Tylenol given with good relief. Hepatic drains x2 flushed, medication changes have not helped ambulation yet (one person assist to [facility]). Plan is to get patient back to [facility] and Dr Styles will monitor blood work and anemia. Addendum: 04/25/17 at 1813 by ADALBERTO COVARRUBIAS RN WEIGHT Patient's weight today 38.1 kg compared to admit weight of 42.1 kg. Patient in good spirits but appears to be wasting away and need to be eating more. Tool Gr[employer] called and made aware.
--- NOTE | 2017-04-25 15:05 | NUR ---
NUTRITION FOLLOW UP: Assess: 81 YO Female admitted for symptomatic anemia, PNA and VRE. Pt not medically stable for discharge. Noted no active signs of bleeding per endoscopy 04/11/17. Hepatic drains persists--drains needing adjustment per MD notes. PO intake mildly decreased with average 40% x 3-4days. PMHx: Ulcerated gastroesophageal junction, Irregular gastroesophageal junction, Gastric and duodenal hereditary hemorrhagic telangiectasia, Hypothyroid, malnutrition, uterine fibroid. LABS: Reviewed. Alb 2.4 MEDICATIONS: Reviewed. DIET: Soft, Ensure clear all trays. PO 40% GI: BM x 1 (04/23) SKIN: Visible muscle/fat loss in face and arms. ANTHROPOMETRICS: Current wt: 42.1 kg. IBW: 52.3 kg. UBW (November): 54 kg. BMI: 17.0 ESTIMATED NEEDS: Malnutrition/Wt gain Calories: 6763-4705 (30-35 kcal/kg BW) Protein: 65-80 g/day (1.2-1.5 g/kg IBW) NUTRITION DIAGNOSIS: 1.) Severe pro/kcal malnutrition related to chronic illness as evidenced by variable wt, visible loss of LBM/ fat, BMI of 17.0-kg--- PERSISTS. INTERVENTION: 1) Continue Ensure CL on all trays per pt preference on previous admits. 2) Pt has had high kcal/pro diet education on numerous occasions during previous admits. 3) Requested RN obtain new weight; last obtained/recorded weight was on 04/10/17. MONITOR/EVALUATE: PO intake, labs, weights, GI/nutrition status. Follow per moderate nutrition risk guidelines.
[2017-04-25] MEDS: Ondansetron 2 mg/mL 2 mL Inj IVPUSH PRN (16:21)
[2017-04-25 16:40] VITALS: BP 128/82; PULSE 80; RESP 16; O2SAT 95
[2017-04-25] MEDS: HYDROcodone-APAP 5-325 mg Tablet PO PRN (18:03)
[2017-04-25 20:29] VITALS: BP 126/66; PULSE 104; RESP 16; O2SAT 96
--- NOTE | 2017-04-25 20:38 | PCM.PNMED ---
Subjective Date of Service Apr 25, 2017 Subjective Patient was seen and examined at bedside today. Patient denies any chest pain, shortness of breath, nausea, vomiting, diarrhea. Overnight events: None Exam Vital Signs Vital Sign - Last Date Time Temp Pulse Resp B/P Pulse Ox O2 Delivery O2 Flow Rate FiO2 04/25/17 20:29 37.9 104 16 126/66 96 Room Air 04/25/17 16:40 2.00 Intake and Output 04/24/17 04/24/17 04/25/17 Cumulative From/Thru 15:00 23:00 07:00 04/05/17 11:37 - 04/25/17 06:15 Intake Total 540 ml 126 ml 19656 ml Output Total 550 ml 48194 ml Balance -10 ml 126 ml -3791 ml Intake Oral 436 ml 37781 ml IV Total 104 ml 126 ml 9433 ml Packed Cells 2493 ml Output Urine Total 550 ml 44594 ml Emesis 325 ml Drainage Total 585 ml # Voids 9 # Bowel Movements 0 15 Exam Physical Exam: GEN: Patient was awake, alert, responding appropriately to questions HEENT: Pupils equal round and reactive to light, extraocular eye muscles intact , Neck soft supple, trachea midline, nomocephalic/atraumatic CV: +S1/S2, regular rate and rhythm, systolic murmur auscultated Respiratory: CTAB, no wheezes, rales, rhonchi GI: +bowel sounds x4, soft, compressible, nontender to palpation, drainage tubes in place currently draining minimal fluid EXT: no clubbing, cyanosis, edema Neuro: Cranial nerves II-XII grossly intact Psych: mood and affect were appropriate IVs and Medications Medications Reviewed: Medications were reviewed in detail Lab and Diagnostics Result Diagram: 04/25/17 0604/25/17 0606 Microbiology Urinalysis is unremarkable and culture is not indicated Blood cultures are pending X-Rays, CTs and MRIs PROCEDURE: X-RAY CHEST ONE VIEW, PORTABLE ([id number]) INDICATIONS: hypoxia TECHNIQUE: One view of the chest was acquired. COMPARISON: [facility], CR, XR CHEST 1VW (PORTABLE), 03/20/2017, 17: 34. FINDINGS: Surgical changes and devices: Surgical clips project in the right base of neck. There is a pigtail catheter projecting in the right upper quadrant. Lungs and pleura: Trace left pleural effusion. No right pleural effusion or pneumothorax. There is dense retrocardiac consolidation. Mediastinum: Mediastinal contours appear normal. Heart size is normal. Bones and chest wall: No suspicious bony lesions. Overlying soft tissues appear unremarkable. IMPRESSION: Dense retrocardiac consolidation in keeping with pneumonia or aspiration. Please correlate clinically. Trace left pleural effusion Dictated by: Andre Herring M.D. on 04/05/2017 at 12:33 Approved by: Andre Herring M.D. on 04/05/2017 at 12:34 PROCEDURE: CT CHEST, ABDOMEN AND PELVIS WITH CONTRAST ([id number]) INDICATIONS: SOB, ?pneumonia/effusion, f/u hepatic abscess TECHNIQUE: After the administration of intravenous contrast, 5 mm thick sections acquired from the lung apices to the symphysis. 5 mm coronal and sagittal reformats were performed, with additional 7 mm MIP reformats through the lungs. For radiation dose reduction, the following was used: automated exposure control, adjustment of mA and/or kV according to patient size. COMPARISON: [facility], CT, CT ABD PELVIS W CON, 03/20/2017, 19:02. FINDINGS: Image quality: Excellent. CHEST: Lungs and pleura: Small-moderate bilateral pleural effusions with adjacent atelectasis. Mediastinum: Heart size is enlarged. No pericardial effusion. No mediastinal or hilar adenopathy by size criteria. Thoracic aorta and central pulmonary arteries are normal in size. Esophagus is normal in caliber. No hiatal hernia. Chest wall: No axillary or supraclavicular adenopathy by size criteria. The right lobe of the thyroid is not well-seen. Left lobe unremarkable.. ABDOMEN: Solid organs: There is placement of pigtail catheter drain within the liver. As the prior study there is enlargement of a low collection adjacent to the drain which now measures 5.6 x 5.0 cm, previously 2.2 x 2.3 cm. There is adjacent ill- defined infiltrative edema. Main portal vein appears patent. There is an internal biliary stent as before. Pancreas and spleen grossly unremarkable. No definite adrenal nodule. Bilateral renal cortical thinning. No hydronephrosis. and spleen are normal in size and enhancement. Gallbladder not seen. Biliary system is non dilated. Pancreas enhances normally. No adrenal nodules. Kidneys demonstrate normal size and enhancement, without hydronephrosis. Peritoneum and bowel: Large amount of stool seen throughout the colon. No evidence of bowel obstruction. No free air. No free fluid. Nodes and vessels: No retroperitoneal or mesenteric adenopathy by size criteria. Aorta and inferior vena cava are normal in size. Miscellaneous: No ventral hernias. PELVIS: Genitourinary: Bladder wall thickness is normal. Redemonstration of large left -sided uterine fibroid with central calcification. Miscellaneous: No inguinal hernias or adenopathy. Bones: No suspicious bony lesions. No vertebral body compression fractures. IMPRESSION: Status post placement of hepatic drain, however since the prior study dated 03/20 there is an enlarging intrahepatic fluid collection, suspicious for persistent abscess, just medial to the pigtail tip as measured above. There is persistence adjacent intrahepatic infiltrative edema and fluid. Please correlate clinically. Small to moderate bilateral pleural effusions with adjacent atelectasis. Cardiomegaly. Large uterine fibroid as before. Dictated by: Andre Herring M.D. on 04/05/2017 at 18:39 Approved by: Andre Herring M.D. on 04/05/2017 at 18:55 Cardiac Echo Impressions Echocardiogram Report Name: STEWART UREÑA Graeme e: 02/05/2017 Height: 63 in Hospital Exam Location: [facility] Weight: 90 lb Gender: Female BSA: 1.4 m2 : 1935 Age: 81 yrs BP: 110/54 mmHg Reason For Study: Bacteremia Performed By: Corrie Jeffrey Referring Physician: ADALBERTO KELLEY Interpretation Summary The left ventricle is normal in size. Left ventricular systolic function is normal without focal wall motion abnormalities. The ejection fraction is estimated to be 60-65%. Assessment of diastolic parameters indicates normal left ventricular diastolic function and normal filling pressures. The right ventricle is normal in size and function. The right ventricular systolic pressure is estimated at 34 mmHg assuming a right atrial pressure of 3 mm Hg. The left atrium is mildly dilated. Right atrial size is normal. The aortic valve is trileaflet. The aortic valve opens well. There is no aortic regurgitation. There is very small filamentous strand at the tips of aortic leaflets. This is best seen on parasternal long axis views with inncreased magnification. Differential should include endocarditis or Lambl's excrescence. Given positive blood cultures, OLU is recommended. Other valves do not have any obvious evidence for endocarditis. The aortic root is mildly dilated. The ascending aorta is mildly enlarged. Moderate atherosclerotic plaque(s) in the aortic arch. Additional Diagnostics PROCEDURE: CT ABCESS DRAIN PERITONEAL INDICATIONS: CT guided abscess drain COMPARISON: [facility], CT, CT ABCESS DRAIN PERITONEAL, 12/17/2016, 13:58. Technique: 1. Sedation provided by the anesthesiology service. 2. CT guided abscess drain. The risks and the benefits of the procedure were discussed with the patient and her son, consent was obtained, and placed on the chart. The patient was placed in a supine position on the CT table. The appropriate area was prepped and draped in the usual sterile fashion. 1% lidocaine was used to anesthetize the skin over the area of interest. Under CT guidance, an 18 gauge Chiba needle was advanced into the hepatic fluid collection. The inner stylette was removed, and an Amplatz wire was advanced into the fluid collection. The needle was removed, and an 8 Greenlandic locking pigtail drain was advanced over the wire into the fluid collection and secured in place at the skin. 55 cc of turbid bilious fluid were aspirated and sent to the laboratory for evaluation. The patient tolerated the procedure well. FINDINGS: Initial CT demonstrates a large fluid collection. A small amount of gas is present in this collection in addition to pneumobilia within the left hepatic lobe. IMPRESSION: Successful placement of a CT-guided drain placement within a large fluid and gas collection within the right hepatic lobe. 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 Patient has had multiple gastrointestinal bleeds requiring weekly transfusions. Just 4-5 days prior to admission patient was at [facility] having to or more abdominal shunts placed to further drain her chronic liver abscesses after presenting to [facility] emergency department with sepsis. 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 Patient was transfused 2 units of packed red blood cels on 04/11/17, 2 units of packed red blood cels on 04/12/17 and 04/20/17, 2 units on 04/23/17 , 1 unit 04/25/17 - GI following - Endoscopy done 04/11/17, no signs of active bleeding, continue monitoring - As per Dr. Bynum, will be discontinued from tamoxifen to restart patient's previous estradiol. 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 - ID following - Patient had recent internal biliary drains placed at [facility]. Films were reviewed by Dr. Sam it appears that the drain or drains need to be readjusted. - Patient has a history of sepsis secondary to VRE and Klebsiella. - abscess growing enterococus, fungus - IR drain reinsertion 04/11/17,now upper drain, monitor output and maintain in place Plan - continue flushing q8H - Dr. Joel to consider gel foam if drains dont work, discussed with her on the phone : wants to wait see if drains can work - c/w antibiotics as per ID Severe protein calorie malnutrition, present on admission with a BMI of 17.0 kg/ m. Active - advance diet as tolerated - Ensure meal replacements at every meal Anemia of chronic disease - stable - continue to monitor Urinary fibroid mass, which is impinging on the colon resulting in constipation - stable Plan - Continue full liquid diet for now - Mineral oil enema given as an option, patient refuses - continue to monitor Disposition: -pcp is Denisha Baird MD -lives with unassisted [place] DVT PROPHYLAXIS: SCD Disposition: Patient is currently progressing. The patient's H&H had decreased today the patient will be given 1 unit of blood. The patient is currently progressing and hopefully she will be able to be discharged home tomorrow with close follow-up with Dr. Bynum. GI Prophylaxis: Proton Pump Inhibitor VTE Prophylaxis: SCDs VTE Mechanical Devices: Intermittant Pneumatic CD Resuscitation Status: DNR/DNI:Do Not Resuscitate/Intubate Nano Araujo DO Apr 25, 2017 20:37
[2017-04-26] MEDS: HYDROcodone-APAP 5-325 mg Tablet PO PRN ×3 (00:32→21:42)
[2017-04-26 05:23] VITALS: BP 112/65; PULSE 74; RESP 16; O2SAT 95
[2017-04-26] MEDS: Ondansetron 2 mg/mL 2 mL Inj IVPUSH PRN ×2 (05:28→13:09)
[2017-04-26 07:16] LABS: Mean Corpuscular Hemoglobin 30.2 pg (27.0-35.0); Mean Corpuscular Volume 90.3 fL (81-100)
[2017-04-26] MEDS: Pantoprazole 20 mg ER24 Tablet PO SCH ×2 (07:43→21:41)
[2017-04-26] MEDS: Polyethylene Glycol (PEG) 17 Gm Powder PO SCH (07:44)
[2017-04-26] MEDS ORDERED: 0.9% Sodium Chloride 500 ML IV ONE (08:10)
[2017-04-26] MEDS: 0.9% Sodium Chloride 250 ML IV PRN (09:33)
[2017-04-26] MEDS ORDERED: ESTR1TAB28 PO (11:22)
--- NOTE | 2017-04-26 11:28 | PCM.DIMED ---
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 2) follow-up with Dr. Bynum as he will do weekly blood draws to make sure that your blood levels are maintaining and that they have not dropped. If they do drop he will do outpatient blood transfusions 3) follow-up with [facility] as they will be removing stents and possibly repositioning the drainage tubes Follow-up Provider: Miller Bynum MD Follow-up with PCP in: 1 week (please call Dr. Bynum's office to set up an appointment) Provider: CATALINO LYNN Follow-up in: 1 week (please keep your already scheduled appointment with [facility]) Mid-level Provider (F9): Neville Webber MD Follow-up with Mid-level in: 2 weeks (please keep your already scheduled appointment with Dr. Webber) Nano Araujo DO Apr 26, 2017 11:28
[2017-04-26 13:15] VITALS: BP 119/74; PULSE 94; RESP 18; O2SAT 96
--- NOTE | 2017-04-26 14:00 | NUR ---
Case Management D: Ready for d/c to SNF. I spoke with Brenna with [facility] to see if new authorization is required. Brenna called me back after speaking with the RN who will review. Clinicals will need to be faxed. This has been done.
--- NOTE | 2017-04-26 14:45 | NUR ---
Nausea pt reported mild intermittent nausea and chills. Administered 4mg IV Zofran and took VS- temp 99.0 F all other VS WNL. Pt stated that "felt strange and did not feel comfortable and wanted to say another night." MD notified. Reassessed nausea was gone.
--- NOTE | 2017-04-26 14:54 | NUR ---
Case Management: D: d/c to SNF authorized by Milagros Martínez with [facility]. When I notified Mihaela PARRY of authorization, she informed me that d/c had been cancelled. Message left for Brenna at [facility] that d/c has been cancelled for today.
--- NOTE | 2017-04-26 17:30 | PCM.PNMED ---
Subjective Date of Service Apr 26, 2017 Subjective Patient was seen and examined at bedside today. Patient denies any chest pain, shortness of breath, nausea, vomiting, diarrhea. Patient states that she is doing better and ready to be discharged home. Overnight events: None Later that afternoon the patient stated that she was not feeling well and that she did not feel stable to be discharged home. This was a change from the morning when she was feeling much better. At this time because of the patient' s complex history it would behoove us to watch her one more day as she does have a very complex medical history/complex condition. Exam Vital Signs Vital Sign - Last Date Time Temp Pulse Resp B/P Pulse Ox O2 Delivery O2 Flow Rate FiO2 04/26/17 13:15 37.2 94 18 119/74 96 Room Air 04/25/17 16:40 2.00 Intake and Output 04/25/17 04/25/17 04/26/17 Cumulative From/Thru 15:00 23:00 07:00 04/05/17 11:37 - 04/26/17 06:45 Intake Total 525 ml 710 ml 135 ml 70134 ml Output Total 800 ml 520 ml 5 ml 92267 ml Balance -275 ml 190 ml 130 ml -3746 ml Intake Oral 100 ml 590 ml 86868 ml IV Total 50 ml 120 ml 135 ml 9738 ml Packed Cells 375 ml 2868 ml Output Urine Total 750 ml 500 ml 45849 ml Emesis 325 ml Drainage Total 50 ml 20 ml 5 ml 660 ml # Voids 9 # Bowel Movements 15 Exam Physical Exam: GEN: Patient was awake, alert, responding appropriately to questions HEENT: Pupils equal round and reactive to light, extraocular eye muscles intact , Neck soft supple, trachea midline, nomocephalic/atraumatic CV: +S1/S2, regular rate and rhythm, systolic murmur auscultated Respiratory: CTAB, no wheezes, rales, rhonchi GI: +bowel sounds x4, soft, compressible, nontender to palpation, drainage tubes in place currently draining minimal fluid EXT: no clubbing, cyanosis, edema Neuro: Cranial nerves II-XII grossly intact Psych: mood and affect were appropriate IVs and Medications Medications Reviewed: Medications were reviewed in detail Lab and Diagnostics Result Diagram: 04/26/17 0640 04/26/17 0640 Microbiology Urinalysis is unremarkable and culture is not indicated Blood cultures are pending X-Rays, CTs and MRIs PROCEDURE: X-RAY CHEST ONE VIEW, PORTABLE ([id number]) INDICATIONS: hypoxia TECHNIQUE: One view of the chest was acquired. COMPARISON: [facility], CR, XR CHEST 1VW (PORTABLE), 03/20/2017, 17: 34. FINDINGS: Surgical changes and devices: Surgical clips project in the right base of neck. There is a pigtail catheter projecting in the right upper quadrant. Lungs and pleura: Trace left pleural effusion. No right pleural effusion or pneumothorax. There is dense retrocardiac consolidation. Mediastinum: Mediastinal contours appear normal. Heart size is normal. Bones and chest wall: No suspicious bony lesions. Overlying soft tissues appear unremarkable. IMPRESSION: Dense retrocardiac consolidation in keeping with pneumonia or aspiration. Please correlate clinically. Trace left pleural effusion Dictated by: Andre Herring M.D. on 04/05/2017 at 12:33 Approved by: Andre Herring M.D. on 04/05/2017 at 12:34 PROCEDURE: CT CHEST, ABDOMEN AND PELVIS WITH CONTRAST ([id number]) INDICATIONS: SOB, ?pneumonia/effusion, f/u hepatic abscess TECHNIQUE: After the administration of intravenous contrast, 5 mm thick sections acquired from the lung apices to the symphysis. 5 mm coronal and sagittal reformats were performed, with additional 7 mm MIP reformats through the lungs. For radiation dose reduction, the following was used: automated exposure control, adjustment of mA and/or kV according to patient size. COMPARISON: [facility], CT, CT ABD PELVIS W CON, 03/20/2017, 19:02. FINDINGS: Image quality: Excellent. CHEST: Lungs and pleura: Small-moderate bilateral pleural effusions with adjacent atelectasis. Mediastinum: Heart size is enlarged. No pericardial effusion. No mediastinal or hilar adenopathy by size criteria. Thoracic aorta and central pulmonary arteries are normal in size. Esophagus is normal in caliber. No hiatal hernia. Chest wall: No axillary or supraclavicular adenopathy by size criteria. The right lobe of the thyroid is not well-seen. Left lobe unremarkable.. ABDOMEN: Solid organs: There is placement of pigtail catheter drain within the liver. As the prior study there is enlargement of a low collection adjacent to the drain which now measures 5.6 x 5.0 cm, previously 2.2 x 2.3 cm. There is adjacent ill- defined infiltrative edema. Main portal vein appears patent. There is an internal biliary stent as before. Pancreas and spleen grossly unremarkable. No definite adrenal nodule. Bilateral renal cortical thinning. No hydronephrosis. and spleen are normal in size and enhancement. Gallbladder not seen. Biliary system is non dilated. Pancreas enhances normally. No adrenal nodules. Kidneys demonstrate normal size and enhancement, without hydronephrosis. Peritoneum and bowel: Large amount of stool seen throughout the colon. No evidence of bowel obstruction. No free air. No free fluid. Nodes and vessels: No retroperitoneal or mesenteric adenopathy by size criteria. Aorta and inferior vena cava are normal in size. Miscellaneous: No ventral hernias. PELVIS: Genitourinary: Bladder wall thickness is normal. Redemonstration of large left -sided uterine fibroid with central calcification. Miscellaneous: No inguinal hernias or adenopathy. Bones: No suspicious bony lesions. No vertebral body compression fractures. IMPRESSION: Status post placement of hepatic drain, however since the prior study dated 03/20 there is an enlarging intrahepatic fluid collection, suspicious for persistent abscess, just medial to the pigtail tip as measured above. There is persistence adjacent intrahepatic infiltrative edema and fluid. Please correlate clinically. Small to moderate bilateral pleural effusions with adjacent atelectasis. Cardiomegaly. Large uterine fibroid as before. Dictated by: Andre Herring M.D. on 04/05/2017 at 18:39 Approved by: Andre Herring M.D. on 04/05/2017 at 18:55 Cardiac Echo Impressions Echocardiogram Report Name: STEWART UREÑA Graeme e: 02/05/2017 Height: 63 in Hospital Exam Location: [facility] Weight: 90 lb Gender: Female BSA: 1.4 m2 : 1935 Age: 81 yrs BP: 110/54 mmHg Reason For Study: Bacteremia Performed By: Corrie Jeffrey Referring Physician: ADALBERTO KELLEY Interpretation Summary The left ventricle is normal in size. Left ventricular systolic function is normal without focal wall motion abnormalities. The ejection fraction is estimated to be 60-65%. Assessment of diastolic parameters indicates normal left ventricular diastolic function and normal filling pressures. The right ventricle is normal in size and function. The right ventricular systolic pressure is estimated at 34 mmHg assuming a right atrial pressure of 3 mm Hg. The left atrium is mildly dilated. Right atrial size is normal. The aortic valve is trileaflet. The aortic valve opens well. There is no aortic regurgitation. There is very small filamentous strand at the tips of aortic leaflets. This is best seen on parasternal long axis views with inncreased magnification. Differential should include endocarditis or Lambl's excrescence. Given positive blood cultures, OLU is recommended. Other valves do not have any obvious evidence for endocarditis. The aortic root is mildly dilated. The ascending aorta is mildly enlarged. Moderate atherosclerotic plaque(s) in the aortic arch. Additional Diagnostics PROCEDURE: CT ABCESS DRAIN PERITONEAL INDICATIONS: CT guided abscess drain COMPARISON: [facility], CT, CT ABCESS DRAIN PERITONEAL, 12/17/2016, 13:58. Technique: 1. Sedation provided by the anesthesiology service. 2. CT guided abscess drain. The risks and the benefits of the procedure were discussed with the patient and her son, consent was obtained, and placed on the chart. The patient was placed in a supine position on the CT table. The appropriate area was prepped and draped in the usual sterile fashion. 1% lidocaine was used to anesthetize the skin over the area of interest. Under CT guidance, an 18 gauge Chiba needle was advanced into the hepatic fluid collection. The inner stylette was removed, and an Amplatz wire was advanced into the fluid collection. The needle was removed, and an 8 Romansh locking pigtail drain was advanced over the wire into the fluid collection and secured in place at the skin. 55 cc of turbid bilious fluid were aspirated and sent to the laboratory for evaluation. The patient tolerated the procedure well. FINDINGS: Initial CT demonstrates a large fluid collection. A small amount of gas is present in this collection in addition to pneumobilia within the left hepatic lobe. IMPRESSION: Successful placement of a CT-guided drain placement within a large fluid and gas collection within the right hepatic lobe. 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 Patient has had multiple gastrointestinal bleeds requiring weekly transfusions. Just 4-5 days prior to admission patient was at [facility] having to or more abdominal shunts placed to further drain her chronic liver abscesses after presenting to [facility] emergency department with sepsis. 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 Patient was transfused 2 units of packed red blood cels on 04/11/17, 2 units of packed red blood cels on 04/12/17 and 04/20/17, 2 units on 04/23/17 , 1 unit 04/25/17 - GI following - Endoscopy done 04/11/17, no signs of active bleeding, continue monitoring - As per Dr. Bynum, will be discontinued from tamoxifen to restart patient's previous estradiol. 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 - ID following - Patient had recent internal biliary drains placed at [facility]. Films were reviewed by Dr. Sam it appears that the drain or drains need to be readjusted. - Patient has a history of sepsis secondary to VRE and Klebsiella. - abscess growing enterococus, fungus - IR drain reinsertion 04/11/17,now upper drain, monitor output and maintain in place Plan - continue flushing q8H - Dr. Joel to consider gel foam if drains dont work, discussed with her on the phone : wants to wait see if drains can work - c/w antibiotics as per ID Severe protein calorie malnutrition, present on admission with a BMI of 17.0 kg/ m. Active - advance diet as tolerated - Ensure meal replacements at every meal Anemia of chronic disease - stable - continue to monitor Urinary fibroid mass, which is impinging on the colon resulting in constipation - stable Plan - Continue full liquid diet for now - Mineral oil enema given as an option, patient refuses - continue to monitor Disposition: -pcp is Denisha Baird MD -lives with unassisted [place] DVT PROPHYLAXIS: SCD Disposition: The patient's H&H remained stable and was doing well however the patient was scheduled to discharge today but now she states that she is not feeling well and that something just does not seem right. The patient is currently on antibiotics so we will continue to monitor her for any further signs of worsening infection. Is on is a patient is doing better tomorrow she will most likely be discharged home with close follow-up with Dr. Bynum. GI Prophylaxis: Proton Pump Inhibitor VTE Prophylaxis: SCDs VTE Mechanical Devices: Intermittant Pneumatic CD Resuscitation Status: DNR/DNI:Do Not Resuscitate/Intubate Nano Araujo DO Apr 26, 2017 17:30
--- NOTE | 2017-04-26 17:49 | NUR ---
hepatic drain Lower hepatic drain was leaking moderately at the insertion sight. Change dressing. Lower drain was flushed at 1100 with 10cc; no drainage for shift. Upper drain was flushed at 1101 with 10cc; shift total drainage was 12ml. Drainage was thin brown with mucus threads.
[2017-04-26 21:38] VITALS: BP 116/68; PULSE 104; RESP 18; O2SAT 95
--- NOTE | 2017-04-26 22:04 | NUR ---
Bloody Drainage both hepatic drains flushed with 10cc NS at 22:00m pt denied discomfort when drains were flushed. the Right lateral drain had 5cc of dark red discharge appears as blood, when emptied in toilet the discharge appeared to be a blood clot, pt reported this as a new color to the drainage, dark green thick discharge was seen in tubing above drainage bag. the Medial drain had 50cc of brown/green thick drainage, appearance of mucus threads seen-foul odor present.
[2017-04-27 05:53] VITALS: BP 108/53; PULSE 89; RESP 16; O2SAT 97
--- NOTE | 2017-04-27 06:33 | NUR ---
06:20 Drain Flush medial abd hepatic drain flushed with 10cc NS and 40cc of drainage came out to equal 30cc true drainage, appears brown in color,thick, mucus threads observed. right lateral abd hepatic drain flushed with 10cc NS and 3mL of drainage came out unable to measure true drainage, appears as dark red blood clots, brown thick drainage also seen. Addendum: 04/27/17 at 0639 by EDWARD AL RN pt tolerated flushing of the drains well, denies discomfort at the site during flush.
[2017-04-27] MEDS ORDERED: 0.9% Sodium Chloride 500 ML IV ONE (07:45)
[2017-04-27 07:51] LABS: BASOPHILS % (AUTO) 0.3 % (0-3); EOSINOPHILS % (AUTO) 1.7 % (0-5); MONOCYTES % (AUTO) 13.2 % (4-12); Mean Corpuscular Hemoglobin 30.6 pg (27.0-35.0); Mean Corpuscular Volume 94.7 fL (81-100); NEUTROPHILS % (AUTO) 75.5 % (40-74); Platelet Count 313 bil/L (150-400)
[2017-04-27] MEDS: Polyethylene Glycol (PEG) 17 Gm Powder PO SCH (09:15)
[2017-04-27] MEDS: Pantoprazole 20 mg ER24 Tablet PO SCH (09:16)
--- NOTE | 2017-04-27 11:13 | PCM.DC.MED ---
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 COMPARISON: [facility], CR, XR CHEST 1VW (PORTABLE), 03/20/2017, 17: 34. FINDINGS: Surgical changes and devices: Surgical clips project in the right base of neck. There is a pigtail catheter projecting in the right upper quadrant. Lungs and pleura: Trace left pleural effusion. No right pleural effusion or pneumothorax. There is dense retrocardiac consolidation. Mediastinum: Mediastinal contours appear normal. Heart size is normal. Bones and chest wall: No suspicious bony lesions. Overlying soft tissues appear unremarkable. IMPRESSION: Dense retrocardiac consolidation in keeping with pneumonia or aspiration. Please correlate clinically. Trace left pleural effusion Dictated by: Andre Herring M.D. on 04/05/2017 at 12:33 Approved by: Andre Herring M.D. on 04/05/2017 at 12:34 PROCEDURE: CT CHEST, ABDOMEN AND PELVIS WITH CONTRAST ([id number]) INDICATIONS: SOB, ?pneumonia/effusion, f/u hepatic abscess TECHNIQUE: After the administration of intravenous contrast, 5 mm thick sections acquired from the lung apices to the symphysis. 5 mm coronal and sagittal reformats were performed, with additional 7 mm MIP reformats through the lungs. For radiation dose reduction, the following was used: automated exposure control, adjustment of mA and/or kV according to patient size. COMPARISON: [facility], CT, CT ABD PELVIS W CON, 03/20/2017, 19:02. FINDINGS: Image quality: Excellent. CHEST: Lungs and pleura: Small-moderate bilateral pleural effusions with adjacent atelectasis. Mediastinum: Heart size is enlarged. No pericardial effusion. No mediastinal or hilar adenopathy by size criteria. Thoracic aorta and central pulmonary arteries are normal in size. Esophagus is normal in caliber. No hiatal hernia. Chest wall: No axillary or supraclavicular adenopathy by size criteria. The right lobe of the thyroid is not well-seen. Left lobe unremarkable.. ABDOMEN: Solid organs: There is placement of pigtail catheter drain within the liver. As the prior study there is enlargement of a low collection adjacent to the drain which now measures 5.6 x 5.0 cm, previously 2.2 x 2.3 cm. There is adjacent ill- defined infiltrative edema. Main portal vein appears patent. There is an internal biliary stent as before. Pancreas and spleen grossly unremarkable. No definite adrenal nodule. Bilateral renal cortical thinning. No hydronephrosis. and spleen are normal in size and enhancement. Gallbladder not seen. Biliary system is non dilated. Pancreas enhances normally. No adrenal nodules. Kidneys demonstrate normal size and enhancement, without hydronephrosis. Peritoneum and bowel: Large amount of stool seen throughout the colon. No evidence of bowel obstruction. No free air. No free fluid. Nodes and vessels: No retroperitoneal or mesenteric adenopathy by size criteria. Aorta and inferior vena cava are normal in size. Miscellaneous: No ventral hernias. PELVIS: Genitourinary: Bladder wall thickness is normal. Redemonstration of large left -sided uterine fibroid with central calcification. Miscellaneous: No inguinal hernias or adenopathy. Bones: No suspicious bony lesions. No vertebral body compression fractures. IMPRESSION: Status post placement of hepatic drain, however since the prior study dated 03/20 there is an enlarging intrahepatic fluid collection, suspicious for persistent abscess, just medial to the pigtail tip as measured above. There is persistence adjacent intrahepatic infiltrative edema and fluid. Please correlate clinically. Small to moderate bilateral pleural effusions with adjacent atelectasis. Cardiomegaly. Large uterine fibroid as before. Dictated by: Andre Herring M.D. on 04/05/2017 at 18:39 Approved by: Andre Herring M.D. on 04/05/2017 at 18:55 Cardiac Echo Impression Echocardiogram Report Name: STEWART FORDemilyamairani Graeme e: 02/05/2019 Height: 63 in Hospital Exam Location: [facility] Weight: 90 lb Gender: Female BSA: 1.4 m2 : 1935 Age: 81 yrs BP: 110/54 mmHg Reason For Study: Bacteremia Performed By: Corrie Jeffrey Referring Physician: ADALBERTO KELLEY Interpretation Summary The left ventricle is normal in size. Left ventricular systolic function is normal without focal wall motion abnormalities. The ejection fraction is estimated to be 60-65%. Assessment of diastolic parameters indicates normal left ventricular diastolic function and normal filling pressures. The right ventricle is normal in size and function. The right ventricular systolic pressure is estimated at 34 mmHg assuming a right atrial pressure of 3 mm Hg. The left atrium is mildly dilated. Right atrial size is normal. The aortic valve is trileaflet. The aortic valve opens well. There is no aortic regurgitation. There is very small filamentous strand at the tips of aortic leaflets. This is best seen on parasternal long axis views with inncreased magnification. Differential should include endocarditis or Lambl's excrescence. Given positive blood cultures, OLU is recommended. Other valves do not have any obvious evidence for endocarditis. The aortic root is mildly dilated. The ascending aorta is mildly enlarged. Moderate atherosclerotic plaque(s) in the aortic arch. Other Diagnostics PROCEDURE: CT ABCESS DRAIN PERITONEAL INDICATIONS: CT guided abscess drain COMPARISON: [facility], [place], CT ABCESS DRAIN PERITONEAL, 12/17/2016, 13:58. Technique: 1. Sedation provided by the anesthesiology service. 2. CT guided abscess drain. The risks and the benefits of the procedure were discussed with the patient and her son, consent was obtained, and placed on the chart. The patient was placed in a supine position on the CT table. The appropriate area was prepped and draped in the usual sterile fashion. 1% lidocaine was used to anesthetize the skin over the area of interest. Under CT guidance, an 18 gauge Chiba needle was advanced into the hepatic fluid collection. The inner stylette was removed, and an Amplatz wire was advanced into the fluid collection. The needle was removed, and an 8 Turkmen locking pigtail drain was advanced over the wire into the fluid collection and secured in place at the skin. 55 cc of turbid bilious fluid were aspirated and sent to the laboratory for evaluation. The patient tolerated the procedure well. FINDINGS: Initial CT demonstrates a large fluid collection. A small amount of gas is present in this collection in addition to pneumobilia within the left hepatic lobe. IMPRESSION: Successful placement of a CT-guided drain placement within a large fluid and gas collection within the right hepatic lobe. 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 She was recently hospitalized at our facility due to the hepatic abscesses and was transferred to [facility] for higher level of care and stent placement for bilomas. She was discharged approximately 7-8 days prior to admission from [facility] to [facility]. Just prior to discharge patient received 2 units of PRBCs and a subsequent 2 units have been transfused since discharge and prior to admission here. Upon admission she was found to have a hemoglobin of 5.5 and was transfused another 2 units. We do not have records from [facility] in regards to her biliary stenting and placement of a pigtail drain. CT of the abdomen shows hepatic drain in place with enlarged intrahepatic fluid collection compared to prior study on 03/20/17 along with pigtail drain that does not appear to be optimally placed. The patient was admitted as she started to spike fevers and was treated for anemia and infection. It was found that the patient now is positive for fungal infection however her current treatment with linezolid seems to still be appropriate as her white blood cell count is now within normal limits and her procalcitonin have been steadily declining. Dr. Bynum and feels that since the patient was started on tamoxifen this has not been a good alternative medication to the estradiol as now she has had to have an increase in blood transfusions. Prior to being on the estradiol the patient had 2-3 blood transfusions a month and now since being on tamoxifen she is having to have 2-3 blood transfusions per week. The patient has since been stopped on the tamoxifen and switched back over to the estradiol. The patient should continue to follow-up with Dr. Bynum weekly for blood draws as the patient will continuing to need blood transfusions secondary to the HHT. The patient currently has follow-up appointments with Dr. Bynum, Catalino Bonilla, and Dr. Ramos. The patient has been encouraged to maintain these appointments. 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 Patient has had multiple gastrointestinal bleeds requiring weekly transfusions. Just 4-5 days prior to admission patient was at [facility] having to or more abdominal shunts placed to further drain her chronic liver abscesses after presenting to [facility] emergency department with sepsis. 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 Patient was transfused 2 units of packed red blood cels on 04/11/17, 2 units of packed red blood cels on 04/12/17 and 04/20/17, 2 units on 04/23/17 , 1 unit 04/25/17 - GI following - Endoscopy done 04/11/17, no signs of active bleeding, continue monitoring - As per Dr. Bynum, will be discontinued from tamoxifen to restart patient's previous estradiol. 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 - ID following - Patient had recent internal biliary drains placed at [facility]. Films were reviewed by Dr. Sam it appears that the drain or drains need to be readjusted. - Patient has a history of sepsis secondary to VRE and Klebsiella. - abscess growing enterococus, fungus - IR drain reinsertion 04/11/17,now upper drain, monitor output and maintain in place Plan - continue flushing q8H - Dr. Joel to consider gel foam if drains dont work, discussed with her on the phone : wants to wait see if drains can work - c/w antibiotics as per ID Severe protein calorie malnutrition, present on admission with a BMI of 17.0 kg/ m. Active - advance diet as tolerated - Ensure meal replacements at every meal Anemia of chronic disease - stable - continue to monitor Urinary fibroid mass, which is impinging on the colon resulting in constipation - stable Plan - Continue full liquid diet for now - Mineral oil enema given as an option, patient refuses - continue to monitor Disposition: -pcp is Denisha Baird MD -lives with unassisted Corbin DVT PROPHYLAXIS: SCD Disposition: The patient's H&H remained stable and was doing well however the patient was scheduled to discharge today but now she states that she is not feeling well and that something just does not seem right. The patient is currently on antibiotics so we will continue to monitor her for any further signs of worsening infection. Is on is a patient is doing better tomorrow she will most likely be discharged home with close follow-up with Dr. Bynum. Exam Vital Signs (Last) Date Time Temp Pulse Resp B/P Pulse Ox O2 Delivery O2 Flow Rate FiO2 04/27/17 05:53 36.5 89 16 108/53 97 Room Air 04/25/17 16:40 2.00 Exam Physical Exam: GEN: Patient was awake, alert, responding appropriately to questions HEENT: Pupils equal round and reactive to light, extraocular eye muscles intact , Neck soft supple, trachea midline, nomocephalic/atraumatic CV: +S1/S2, regular rate and rhythm, systolic murmurs auscultated Respiratory: CTAB, no wheezes, rales, rhonchi GI: +bowel sounds x4, soft, compressible, nontender to palpation, positive drains in place with increased drainage noticed in the bag EXT: no clubbing, cyanosis, edema Neuro: Cranial nerves II-XII grossly intact Psych: mood and affect were appropriate Test 04/05/17 14:43 04/06/17 05:45 04/08/17 06:45 04/10/17 13:10 Urine Color Dark yellow (YELLOW) Urine Appearance Clear (CLEAR,HAZY) Urine pH 5.5 (5.0-8.0) Urine Specific [place] 1.020 (1.003-1.035) Urine Protein Negativemg/dL (NEG,TRACE) Urine Glucose (UA) 100mg/dL (NEGATIVE) Urine Ketones Negativemg/dL (NEGATIVE) Urine Occult Blood Negative (NEGATIVE) Urine Nitrite Negative (NEGATIVE) Urine Bilirubin Negative (NEGATIVE) Urine Urobilinogen 1.0mg/dL (NORMAL) Urine Leukocyte Esterase Negative (NEGATIVE) Urine RBC 0-2/hpf (0-2) Urine WBC 0-5/hpf (0-5) Urine Epithelial Cells Moderate/hpf (NONE-MOD) Urine Crystals None seen (NONE SEEN) Urine Bacteria None/hpf (NONE-FEW) Urine Hyaline Casts None/lpf (NONE) Urine Granular Casts None seen (NONE SEEN) Urine Waxy Casts None seen (NONE SEEN) Urine Red Blood Cell Casts None seen (NONE SEEN) Urine White Blood Cell Casts None seen (NONE SEEN) Urine Mucus None seen (None Seen) Urine Trichomonas None seen (NONE SEEN) Urine Yeast None (NONE SEEN) Urinalysis Comment None Urine Culture Reflexed Not indicated Erythrocyte Sedimentation Rate 34mm/hr (0-40) C-Reactive Protein 7.4mg/dL (0.0-0.5) Lactic Acid Level 1.3mmol/L (0.4-2.0) Magnesium Level 1.9mg/dL (1.6-2.6) Prothrombin Time 10.9sec (8.1-12.5) Prothromb Time International Ratio 1.02ratio Activated Partial Thromboplast Time 31.2sec (22.8-33.0) Test 04/12/17 06:40 04/26/17 23:12 04/27/17 05:05 04/27/17 07:59 Nucleated Red Blood Cells 2/100 WBC (0-24) Procalcitonin 0.95ng/mL (0.00-0.08) White Blood Count 6.4th/mm3 (3.8-10.1) Red Blood Count 2.65mil/mm3 (3.90-5.20) Hemoglobin 8.1g/dL (12.0-15.6) Hematocrit 25.1% (35.0-46.0) Mean Corpuscular Volume 94.7fL (81-100) Mean Corpuscular Hemoglobin 30.6pg (27.0-35.0) Mean Corpuscular Hemoglobin Concent 32.3% (32.0-37.0) Red Cell Distribution Width 14.9% (12.3-15.4) Platelet Count 313bil/L (150-400) Neutrophils (%) (Auto) 75.5% (40-74) Lymphocytes (%) (Auto) 9.0% (14-46) Monocytes (%) (Auto) 13.2% (4-12) Eosinophils (%) (Auto) 1.7% (0-5) Basophils (%) (Auto) 0.3% (0-3) Sodium Level 134mEq/L (134-144) Potassium Level 4.9mEq/L (3.5-5.2) Chloride Level 99mEq/L (97-108) Carbon Dioxide Level 23mmol/L (18-29) Blood Urea Nitrogen 14mg/dL (8-27) Creatinine 0.33mg/dL (0.57-1.00) Estimat Glomerular Filtration Rate 273mL/min (>59) Glucose Level 88mg/dL (60-99) Calcium Level 8.3mg/dL (8.5-10.1) Total Bilirubin 0.6mg/dL (0.0-1.2) Aspartate Amino Transf (AST/SGOT) 17U/L (0-50) Alanine Aminotransferase (ALT/SGPT) 12U/L (0-32) Alkaline Phosphatase 496U/L (25-165) Total Protein 4.2g/dL (6.4-8.4) Albumin 2.4g/dL (3.4-5.0) Microbiology Results Urinalysis is unremarkable and culture is not indicated Blood cultures are pending Discharge Medications Discharge Medications Cyanocobalamin (Vitamin B-12) (Vitamin B-12) 500 Mcg Tab.subl 500 MCG SL DAILY ( Reported) Estradiol (Estrace) 1 Mg Tablet 0.5 MG PO DAILY Prescribed by: STEPHANIE ARAUJO DO Lactobacillus Acidophilus (Probiotic) 1 Each Capsule 1 EACH PO BID (Reported) Linezolid (Linezolid) 600 Mg Tablet 600 MG PO BID Prescribed by: VIC MOSELEY DO Pantoprazole (Pantoprazole DR) 20 Mg Tablet.dr 20 MG PO BID (Reported) Polyethylene Glycol 3350 (Miralax) 17 Gm Powd.pack 17 GM PO DAILY (Reported) Thyroid,Pork ([place] Thyroid) 60 Mg Tablet 60 MG PO DAILY (Reported) As needed Acetaminophen (Acetaminophen) 325 Mg Tablet 325 MG PO Q4H PRN PRN For Fever ( Reported) Bisacodyl (Dulcolax Rectal) 10 Mg Supp.rect 10 MG RC DAILY PRN PRN For Constipation (Reported) For no BM after MOM Ondansetron ODT (Ondansetron ODT) 4 Mg Tab.rapdis 4 MG PO Q4H PRN PRN For Nausea (Reported) Followup Plan Discharge Diet: No restrictions (you should be having 5 ensures a day in addition to regular meals) Discharge Activity: No restrictions, Home Health Phyical Therapy Patient Instructions 1) please ensure that you are eating at minimum 3 meals a day and with each meal he should be having an ensure drink and then he should also be having an ensure drink for a snack in between meals. 2) follow-up with Dr. Bynum as he will do weekly blood draws to make sure that your blood levels are maintaining and that they have not dropped. If they do drop he will do outpatient blood transfusions 3) follow-up with Catalino Bonilla as they will be removing stents and possibly repositioning the drainage tubes Follow-up Provider: Miller Bynum MD Follow-up with PCP in: 1 week (please call Dr. Bynum's office to set up an appointment) Provider: CATALINO LYNN Follow-up in: 1 week (please keep your already scheduled appointment with Catalino Bonilla) Mid-level Provider: Adalberto Kelley MD Follow-up with Mid-level in: 2 weeks (please keep your already scheduled appointment with Dr. Kelley) Time spent Greater than 35 minutes copies to: Miller Bynum MD; Arlet Bautista MD; Adalberto Kelley MD, Precious L DO Apr 27, 2017 11:13
[2017-04-27 13:49] VITALS: BP 103/61; PULSE 94; RESP 18
[2017-04-27 14:05] VITALS: BP 116/69; PULSE 90
--- NOTE | 2017-04-27 15:21 | NUR ---
Case Management D: I updated Brenna at [facility] that d/c has been rewritten for today. Was authorized for d/c to SNF yesterday.
[2017-04-27 16:27] VITALS: BP 114/68; PULSE 92; RESP 18
--- NOTE | 2017-04-27 16:36 | NUR ---
Social Work Note: Discharge Data: EMR reviewed. Patient discussed in morning rounds. Patient is day 22 of hospitalization for Anemia/Pneumonia/VRE per H&P. Patient has been deemed medically stable for discharge today per MD. DESTINEE called and spoke with Arely camp [facility] to confirm that patient was able to return today. Arely confirmed that patient could return. DESTINEE called patient's son Ernesto to notify of discharge. Ernesto informed SW that patient's daughter Lina would provide transportation back to [facility] for patient. DESTINEE contacted [facility] and informed her that patient would be ready to DC at 1700. DESTINEE notified primary RN that [facility] would transport patient. DESTINEE also visited patient's room to discuss DC arrangements. SW role explained. Patient is in agreement with discharge arrangements. DESTINEE has prepared SNF packet to go with patient at [place]. DESTINEE has faxed facesheet, DC summary, DC instructions, & prescription to [facility]. Patient has no additional needs at this time. Assessment: Patient will discharge to [facility]. Plan: Patient will discharge to [facility] today. Patient's daughter Lina will transport patient at 1700. [facility] has been notified. SNF packet has been prepared by DESTINEE. Patient has no additional needs at this time. SOHAN Talley
[2017-04-30] MEDS ORDERED: DIF100A PO (18:02)
[2017-04-30] MEDS ORDERED: ESTR1TAB28 PO (18:02)
== END 2017-04-27 17:40 | DRG 377 ==
LOC: EDBD 11:26 → SED 11:26 → MPC 15:28
PROVIDERS: ADMIT Internal Medicine Infectious Disease; ATTEND Internal Medicine Infectious Disease
PROC: 30233N1 Transfusion of Nonautologous Red Blood Cells into Peripheral Vein, Percutaneous Approach (ICD-10-PCS; 2017-04-05)
PROC: 30233N1 Transfusion of Nonautologous Red Blood Cells into Peripheral Vein, Percutaneous Approach (ICD-10-PCS; 2017-04-10)
PROC: 0W9G30Z Drainage of Peritoneal Cavity with Drainage Device, Percutaneous Approach (ICD-10-PCS; 2017-04-10)
PROC: 0DJ08ZZ Inspection of Upper Intestinal Tract, Via Natural or Artificial Opening Endoscopic (ICD-10-PCS; principal; 2017-04-10 13:00)
PROC: 30233N1 Transfusion of Nonautologous Red Blood Cells into Peripheral Vein, Percutaneous Approach (ICD-10-PCS; 2017-04-12)
PROC: 30233N1 Transfusion of Nonautologous Red Blood Cells into Peripheral Vein, Percutaneous Approach (ICD-10-PCS; 2017-04-16)
PROC: 30233N1 Transfusion of Nonautologous Red Blood Cells into Peripheral Vein, Percutaneous Approach (ICD-10-PCS; 2017-04-20)
PROC: 30233N1 Transfusion of Nonautologous Red Blood Cells into Peripheral Vein, Percutaneous Approach (ICD-10-PCS; 2017-04-23)
PROC: 30233N1 Transfusion of Nonautologous Red Blood Cells into Peripheral Vein, Percutaneous Approach (ICD-10-PCS; 2017-04-25)
DX: K92.2 Gastrointestinal hemorrhage, unspecified (principal); E43 Unspecified severe protein-calorie malnutrition; K75.0 Abscess of liver; Z68.1 Body mass index [BMI] 19.9 or less, adult; D62 Acute posthemorrhagic anemia; B37.89 Other sites of candidiasis; I78.0 Hereditary hemorrhagic telangiectasia; E03.9 Hypothyroidism, unspecified; D25.9 Leiomyoma of uterus, unspecified; K59.09 Other constipation; B95.2 Enterococcus as the cause of diseases classified elsewhere; Z16.11 Resistance to penicillins; Z16.21 Resistance to vancomycin

== ENCOUNTER → 2017-05-29 | Day surgery (SDC) | payer MEDICARE ==
[~2017-05-29] VITALS: Ht 157.5 cm; Wt 40.2 kg
[~2017-05-29] MED LIST changes: +0.9% Sodium Chloride 250 ML IV PRN; +ACET325T51 PO; -BISA10SU61 RC; +CEFT2FRO2 IV; +CYAN500T53 SL; +DIF100A PO; +HYDR-4003 PO; -PANT20TA2 PO; +PANT40TA3 PO; +SENN-133 PO; +SUCR1ORA2 PO; +TAMO20TA4 PO; +[UNRECOGNIZED DRUG - OTHER] INTRACATH
--- NOTE | 2017-05-29 10:52 | PROG NOTE ---
[address] [address] PROGRESS NOTE PATIENT: STEWART UREÑA : 1935 MR#: [id number] ADMIT: 05/29/2017 JOB ID: [id number] DATE: 05/29/2017 REASON FOR FOLLOWUP: Polymicrobial liver abscess with associated biloma and profound anemia. INTERVAL HISTORY: Recall this is an extremely complicated 81-year-old woman who has had almost innumerable admissions to this facility and [facility] over the past year or two because of a variety of problems related to her HHT and anemia with GI bleeding as well as a several month history now of a large complicated liver abscess with associated biloma. The liver abscess has grown a wide variety of organisms including gram-negative rods but more recently it has grown consistently VRE as well as Nisreen glabrata. The patient has now been maintained for a couple months on linezolid, which is quite extraordinary in that she has tolerated it that long and more recently she has been on fluconazole because of the finding of Nisreen glabrata which came relatively recently. She has had a couple recent admissions to [facility], and I have discussed these in detail with Dr. Alhaji Tautm who is an Infectious Disease doctor with what used to be [facility] and now I believe is [place]. Dr. Tatum tells me that after careful consideration and re-evaluation at [facility] they placed additional drains into the liver abscess, but have recommended to continue with my original plan which was a prolonged course of linezolid and fluconazole with serial followups of the liver abscess and ongoing drainage. I am [place] [facility] [place] where [place] been transferred from [facility], where she is currently residing for additional blood transfusion. Recall that the patient gets blood transfusions on a frequent and ongoing basis. The patient tells me she has had no recent fevers, chills, or sweats. No particular shortness of breath despite a crit of 18 two days ago, and no notable abdominal or right upper quadrant pain. She has been able to eat, and she has been able to ambulate though she is quite frail. PHYSICAL EXAMINATION: Reveals a thin elderly woman in no acute distress. She is pale and lying in her hospital bed about to receive transfusions [place] in [place] [facility]. Her BMI 16. Her weight is 40 kg. She is afebrile. Her pulse is approximately 100, respiratory rate 14. Examination the head no trauma, though there is obvious temporal wasting. Conjunctivae are extremely pale as is really her whole body. Oral cavity with no new lesions. Lungs relatively clear. Cardiac tones with a systolic flow murmur unchanged from prior. She has three drains now in her abdomen in contrast to the one when I last saw her a few weeks ago. These are draining a light brown material. The abdomen itself is relatively nontender, and I cannot appreciate any hepatomegaly. Labs are not available through our computer, but I did find some labs done at [facility] two days ago. There her hematocrit was 18, which is obviously the reason she is here for transfusions. Her white count was 4100 which is about normal for her and her platelet count was a surprising 330,000 which is odd considering she has been on linezolid now for two months. Her creatinine was stable. I did not see any liver function test in the labs from [facility]. 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 Additionally she has developed early this year a large liver mass which turned out to be an infected biloma and/or liver abscess. Originally gram-negative rods were found in the blood and the liver abscess, but these have been eradicated and now we are left with vancomycin resistant enterococcus which has been very tenacious and persistent as well as more recently Nisreen glabrata growing from the abscess. She has been seen by gastrointestinal specialist here and in [place] and they have been frustrated by the inability to resolve this biloma/liver abscess. For now the plan is to continue with these drains as well as these antibiotics. RECOMMENDATIONS: 1. Will continue with linezolid 600 b.i.d. and fluconazole 300 once a day for the foreseeable future. 2. She should have a CBC with differential, as well as a Chem panel about every 1-2 weeks to monitor linezolid thrombocytopenia as well as keep an eye on her hematocrit and liver function tests. 3. Her last imaging was actually done May 13 at this facility. It showed a new left-sided liver abscess as well as a decrease in the right hepatic abscesses. This is undoubtedly the reason external drains were placed. Note that she also has two internal biliary stents in place as well. I think we should do some more imaging in the next couple of weeks and perhaps we could consider doing an ultrasound as opposed to a CT, though in reviewing the radiology notes they actually suggests that CTs may be superior for this process. 4. I am going to write an order to be sent back to [facility] with her to schedule her for an outpatient ultrasound of the liver abscesses as well as for the lab work, and I plan to see her in my clinic in early June.
[2017-05-29 12:07] VITALS: BP 100/41; PULSE 97; RESP 20; O2SAT 98
[2017-05-29 12:21] VITALS: BP 86/42; PULSE 65; RESP 20
[2017-05-29 14:10] VITALS: BP 109/42; PULSE 64; RESP 20; O2SAT 100
[2017-05-29 14:30] VITALS: BP 105/41; PULSE 67; RESP 20; O2SAT 95
[2017-05-29 16:59] VITALS: BP 105/50; PULSE 67; RESP 20; O2SAT 95
--- NOTE | 2017-05-29 18:15 | NUR ---
Pt arrived to [facility]: Pt arrived to [facility] at 0910 for transfusion of 2 units PRBC. Pt has midline cath in right upper arm that was verified and ok'd for use from IVT, also pt has 3 drains for liver abscess that are intact and draining. Midline unable to draw back blood but flushes well. Lab here and drawn T&C. Infusion of 2 unit as ordered with post H&H after. Report given to [facility] accepting nurse. New orders from Dr. Webber and post labs results sent with Ambulance service for [facility] (copy retained in [facility] chart). Pt left the unit via stretcher in stable condition @ 1820.
== END | disposition home or self-care (01) ==
LOC: MOCO 08:34
PROVIDERS: ATTEND Neuromusculoskeletal Medicine & OMM
DX: D64.9 Anemia, unspecified (principal)
CPT/HCPCS: 36415; 36430; 85014; 85018; 86922; J7050; P9021